=== PATIENT | male | born 1970 | race Caucasian/White ===

== ENCOUNTER 2018-04-04 17:42 | Emergency (ER) | payer BC, SELFPAY ==
[2018-04-04] MEDS ORDERED: ACETAMINOPHEN 500 MG TAB ONE (18:17)
--- NOTE | 2018-04-04 19:42 | RAD REPORT ---
EXAM DESCRIPTION: Manoj Rome (2 Views)04/04/2018 6:47 pm CLINICAL HISTORY: Cough COMPARISON: 2016 FINDINGS: The lungs appear clear of acute infiltrate. The heart is normal size A small hiatal hernia is present IMPRESSION: No acute abnormalities displayed
--- NOTE | 2018-04-04 19:42 | RAD REPORT ---
EXAM DESCRIPTION: VASExtrem Venous W Compress Bil04/04/2018 7:07 pm CLINICAL HISTORY: Bilateral leg swelling COMPARISON: 2013 FINDINGS: The common femoral, superficial femoral, popliteal and posterior tibial veins bilaterally are compressible and demonstrate augmentation. Doppler demonstrates good flow. A nonspecific 13 millimeter short axis left inguinal lymph node is present. It is without obvious jermaine nge from 2013 cat scan IMPRESSION: No evidence of deep venous thrombosis involving either lower extremity.
[2018-04-04] MEDS ORDERED: NA CHLORIDE 0.9% 1,000 ML ONE ×2 (20:02→21:48)
[2018-04-04 20:24] LABS: Absolute Lymphocytes (CBC) 1.2 K/uL (0.7-4.9); Absolute Monocytes 0.4 K/uL (0.1-1.3); Absolute Neutrophil 9.3 K/uL (1.8-8.0); Basophils % 0.5 % (0-1.3); Eosinophils % 1.8 % (0-4.4); Lymphocytes % 10.8 % (15.3-44.8); MCH 26.9 pg (27.0-35.0); MCV 80.5 fL (80-100); MPV 9.2 fL (7.6-11.3); Monocytes % 3.8 % (3.3-12.3); RBC Red Blood Cell Count 4.73 M/uL (4.33-5.43)
[2018-04-04 20:42] LABS: Bilirubin Total 0.3 mg/dL (0.2-1.0); Potassium 3.8 mmol/L (3.5-5.1); Protein, Total 6.9 g/dL (6.4-8.2)
[2018-04-04 21:35] LABS: Barbiturates NEGATIVE (NEGATIVE); Benzodiazepines NEGATIVE (NEGATIVE); Cocaine NEGATIVE (NEGATIVE); METHAMPHETAM NEGATIVE (NEGATIVE); Methadone NEGATIVE (NEGATIVE); Opiates NEGATIVE (NEGATIVE); Phencyclidine NEGATIVE (NEGATIVE); THC Cannibis NEGATIVE (NEGATIVE)
[2018-04-04 21:45] LABS: Urine Blood NEGATIVE (NEG); Urine Glucose 2+ (NEG); Urine Protein NEGATIVE (NEG)
--- NOTE | 2018-04-04 22:09 | EDPHYS ---
Physician Documentation [facility] Name: Chente Minaya Age: 47 yrs Sex: Male : 1970 Arrival Date: 04/04/2018 Time: 17:47 Bed 28 Private MD: None, None ED Physician Juan A Jarrell HPI: 04/04 19:00 This 47 yrs old Male presents to ER via Ambulatory with complaints of pm1 Congestion, Leg Swelling, Skin Sore(s). 19:00 The patient's rash thought to be caused by soap. The rash is located on the right arm, pm1 left arm, right leg and left leg. The rash can be described as papular. Onset: The symptoms/episode began/occurred 1 week(s) ago. Severity of symptoms: in the emergency department the symptoms are worse. Treatment given at home: None. The patient has not experienced similar symptoms in the past. Patient presenting with rash to his arms that started after changing his detergent. Patient also complaining of a cough for 2-3 weeks. No shortness of breath or chest pain. Complaining of swelling to bilateral lower extremities. 19:00 Patient has been trying to drink enough fluid, but it is difficult with the heat pm1 outside. Historical: - Allergies: 17:53 Bactrim; aa5 17:53 mushroom; aa5 17:53 PENICILLINS; aa5 17:53 Sulfa (Sulfonamide Antibiotics); aa5 17:53 Tylenol-Codeine #3; aa5 17:53 Tylenol-Codeine #4; aa5 - Home Meds: 18:03 Cinnamon 500 mg Oral cap [Active]; mg2 - PMHx: 17:53 Depression; Diabetes - NIDDM; food bolus; GERD; hiatal hernia; Migraines; neuropathy; aa5 - PSHx: 17:53 None; aa5 - Immunization history:: Adult Immunizations up to date. - Social history:: Smoking status: Patient/guardian denies using tobacco. - Ebola Screening: : No symptoms or risks identified at this time. ROS: 19:00 Constitutional: Negative for fever, chills, and weight loss, Eyes: Negative for injury, pm1 pain, redness, and discharge, ENT: Negative for injury, pain, and discharge, Neck: Negative for injury, pain, and swelling, Abdomen/GI: Negative for abdominal pain, nausea, vomiting, diarrhea, and constipation. 19:00 Back: Negative for injury and pain. 19:00 : Negative for injury, bleeding, discharge, and swelling, MS/Extremity: Negative for injury and deformity. 19:00 Neuro: Negative for headache, weakness, numbness, tingling, and seizure. 19:00 Cardiovascular: Positive for edema, Negative for chest pain, orthopnea, palpitations. 19:00 Respiratory: Positive for cough, Negative for shortness of breath, sputum production, wheezing. 19:00 Skin: Positive for rash, of the left leg and right leg and left arm and right arm. Exam: 19:00 Constitutional: This is a well developed, well nourished patient who is awake, alert, pm1 and in no acute distress. Head/Face: Normocephalic, atraumatic. Eyes: Pupils equal round and reactive to light, extra-ocular motions intact. Lids and lashes normal. Conjunctiva and sclera are non-icteric and not injected. Cornea within normal limits. Periorbital areas with no swelling, redness, or edema. ENT: Nares patent. No nasal discharge, no septal abnormalities noted. Tympanic membranes are normal and external auditory canals are clear. Oropharynx with no redness, swelling, or masses, exudates, or evidence of obstruction, uvula midline. Mucous membranes moist. Neck: Trachea midline, no thyromegaly or masses palpated, and no cervical lymphadenopathy. Supple, full range of motion without nuchal rigidity, or vertebral point tenderness. No Meningismus. Chest/axilla: Normal chest wall appearance and motion. Nontender with no deformity. No lesions are appreciated. Respiratory: Lungs have equal breath sounds bilaterally, clear to auscultation and percussion. No rales, rhonchi or wheezes noted. No increased work of breathing, no retractions or nasal flaring. Abdomen/GI: Soft, non-tender, with normal bowel sounds. No distension or tympany. No guarding or rebound. No evidence of tenderness throughout. Back: No spinal tenderness. No costovertebral tenderness. Full range of motion. 19:00 MS/ Extremity: Pulses equal, no cyanosis. Neurovascular intact. Full, normal range of motion. 19:00 Cardiovascular: Rate: tachycardic, Rhythm: regular, Pulses: no pulse deficits are appreciated, Heart sounds: normal, normal S1and S2, Edema: 1+ edema to level of left midcalf, left ankle, right midcalf and right ankle. 19:00 Skin: Appearance: normal except for affected area, consistent with contact dermatitis. 19:00 Neuro: Orientation: is normal, Motor: is normal, moves all fours, strength is normal, strength is 5/5 in all extremities, Gait: is steady, at a normal pace, without difficulty. Vital Signs: 17:53 BP 149 / 80; Pulse 125; Resp 20 S; Temp 100.6(O); Pulse Ox 96% on R/A; Weight 133.81 kg aa5 (R); Height 6 ft. 3 in. (190.50 cm) (R); Pain 7/10; 18:10 BP 121 / 83; Pulse 123; Resp 18; Pulse Ox 98% on R/A; Pain 5/10; mg2 19:17 BP 129 / 72; Pulse 120; Resp 18; Temp 98.1; Pulse Ox 97% on R/A; Pain 0/10; mg2 20:29 BP 104 / 50; Pulse 105; Resp 18; Temp 98.1; Pulse Ox 96% on R/A; Pain 0/10; mg2 22:27 BP 115 / 74; Pulse 92; Resp 18; Pulse Ox 97% on R/A; Pain 0/10; mg2 17:53 Body Mass Index 36.87 (133.81 kg, 190.50 cm) aa5 17:53 pt c/o mouna leg pain aa5 MDM: 18:03 Patient medically screened. pm1 19:53 Data reviewed: vital signs. Data interpreted: Pulse oximetry: on room air is 97 %. pm1 Interpretation: normal. Counseling: I had a detailed discussion with the patient and/or guardian regarding: the historical points, exam findings, and any diagnostic results supporting the discharge/admit diagnosis, radiology results, the need for outpatient follow up, to return to the emergency department if symptoms worsen or persist or if there are any questions or concerns that arise at home. 04/04 19:58 Order name: CBC with Diff; Complete Time: 21:41 pm1 04/04 19:58 Order name: CMP; Complete Time: 21:41 pm1 04/04 18:11 Order name: Extrem Venous W Compression Mouna US; Complete Time: 19:47 pm1 04/04 18:11 Order name: Chest Pa And Lat (2 Views) XRAY; Complete Time: 19:47 pm1 04/04 19:59 Order name: UDS; Complete Time: 21:41 pm1 04/04 21:19 Order name: Urine Dipstick--Ancillary (enter results); Complete Time: 21:56 rg2 04/04 19:58 Order name: IV Saline Lock; Complete Time: 20:28 pm1 04/04 19:59 Order name: Urine Dipstick-Ancillary (obtain specimen); Complete Time: 21:18 pm1 Administered Medications: 18:16 Drug: Tylenol 1000 mg Route: PO; mg2 20:05 Follow up: Response: No adverse reaction; Temperature is decreased mg2 20:16 Drug: NS 0.9% 1000 ml Route: IV; Rate: 1000 ml; Site: left antecubital; mg2 22:38 Follow up: Response: No adverse reaction; IV Status: Completed infusion mg2 21:47 Drug: NS 0.9% 1000 ml Route: IV; Rate: 1000 ml; Site: left antecubital; mg2 22:38 Follow up: Response: No adverse reaction; IV Status: Completed infusion mg2 Disposition: 04/04/18 22:07 Discharged to Home. Impression: Rash and other nonspecific skin eruption, Cough, Edema, unspecified - Dependent edema. - Condition is Stable. - Discharge Instructions: Edema, Rash, Cough, Adult. - Prescriptions for Doxycycline Hyclate 100 mg Oral Tablet - take 1 tablet by ORAL route every 12 hours; 20 tablet. - Medication Reconciliation Form, Thank You Letter, Antibiotic Education, Prescription Opioid Use form. - Follow up: Emergency Department; When: As needed; Reason: Worsening of condition. Follow up: Private Physician; When: 2 - 3 days; Reason: Recheck today's complaints, Continuance of care, Re-evaluation by your physician. - Problem is new. - Symptoms have improved. Addendum: 04/07/2018 07:36 Co-signature as Attending Physician, Juan A Jarrell MD. r n Signatures: Dispatcher [employer] EDWA Juan A Jarrell MD MD rn Calderon, Audri RN RN aa5 Dedrick Atkinson, SAMPLE CARD MAKER SAMPLE CARD MAKER pm1 Jovi Meyer RN RN mg2 Corrections: (The following items were deleted from the chart) 04/04 22:43 22:07 04/04/2018 22:07 Discharged to Home. Impression: Rash and other nonspecific skin mg2 eruption; Cough; Edema, unspecified - Dependent edema. Condition is Stable. Discharge Instructions: Edema, Rash, Cough, Adult. Prescriptions for Doxycycline Hyclate 100 mg Oral Tablet - take 1 tablet by ORAL route every 12 hours; 20 tablet. and Forms are Medication Reconciliation Form, Thank You Letter, Antibiotic Education, Prescription Opioid Use. Follow up: Emergency Department; When: As needed; Reason: Worsening of condition. Follow up: Private Physician; When: 2 - 3 days; Reason: Recheck today's complaints, Continuance of care, Re-evaluation by your physician. Problem is new. Symptoms have improved. pm1
--- NOTE | 2018-04-04 22:09 | ER ---
Nurse's Notes [facility] Name: Chente Minaya Age: 47 yrs Sex: Male : 1970 Arrival Date: 04/04/2018 Time: 17:47 Bed 28 Private MD: None, None Diagnosis: Rash and other nonspecific skin eruption;Cough;Edema, unspecified-Dependent edema Presentation: 04/04 17:49 Presenting complaint: Patient states: productive cough x 2-3 weeks ago, congestion x 1 aa5 month, mouna leg swelling x 2-3 days. Pt also states "I am allergic to laundry detergent and now I have all these sores on my right arm, they've been there for about a week". 17:49 Transition of care: patient was not received from another setting of care. Onset of aa5 symptoms was February 2018. Risk Assessment: Do you want to hurt yourself or someone else? Patient reports no desire to harm self or others. Care prior to arrival: None. 17:49 Method Of Arrival: Ambulatory aa5 17:49 Acuity: GILDARDO 3 aa5 18:02 Initial Sepsis Screen: Does the patient meet any 2 criteria? No. Patient's initial mg2 sepsis screen is negative. Does the patient have a suspected source of infection? No. Patient's initial sepsis screen is negative. Historical: - Allergies: 17:53 Bactrim; aa5 17:53 mushroom; aa5 17:53 PENICILLINS; aa5 17:53 Sulfa (Sulfonamide Antibiotics); aa5 17:53 Tylenol-Codeine #3; aa5 17:53 Tylenol-Codeine #4; aa5 - Home Meds: 18:03 Cinnamon 500 mg Oral cap [Active]; mg2 - PMHx: 17:53 Depression; Diabetes - NIDDM; food bolus; GERD; hiatal hernia; Migraines; neuropathy; aa5 - PSHx: 17:53 None; aa5 - Immunization history:: Adult Immunizations up to date. - Social history:: Smoking status: Patient/guardian denies using tobacco. - Ebola Screening: : No symptoms or risks identified at this time. Screenin:00 Abuse screen: Denies threats or abuse. Denies injuries from another. Nutritional mg2 screening: No deficits noted. Tuberculosis screening: No symptoms or risk factors identified. Fall Risk None identified. Assessment: 18:00 General: Appears in no apparent distress. comfortable, Behavior is calm, cooperative. mg2 Pain: Complains of pain in whole body Pain does not radiate. Pain Quality of pain is described as aching, sore Pain began gradually, Is intermittent. Neuro: Level of Consciousness is awake, alert, obeys commands, Oriented to person, place, time, situation. Cardiovascular: Capillary refill < 3 seconds Patient's skin is warm and dry. Respiratory: Airway is patent Respiratory effort is even, unlabored, Respiratory pattern is regular, symmetrical, Breath sounds are clear bilaterally. Respiratory: Reports cough that is productive. GI: No signs and/or symptoms were reported involving the gastrointestinal system. : No signs and/or symptoms were reported regarding the genitourinary system. EENT: No signs and/or symptoms were reported regarding the EENT system. Derm: Skin has lesions on in whole body Skin is pink, warm \\T\\ dry. normal. Musculoskeletal: No signs and/or symptoms reported regarding the musculoskeletal system. 19:18 Reassessment: Patient appears in no apparent distress at this time. Patient and/or mg2 family updated on plan of care and expected duration. Pain level reassessed. Patient is alert, oriented x 3, equal unlabored respirations, skin warm/dry/pink. Vital Signs: 17:53 BP 149 / 80; Pulse 125; Resp 20 S; Temp 100.6(O); Pulse Ox 96% on R/A; Weight 133.81 kg aa5 (R); Height 6 ft. 3 in. (190.50 cm) (R); Pain 7/10; 18:10 BP 121 / 83; Pulse 123; Resp 18; Pulse Ox 98% on R/A; Pain 5/10; mg2 19:17 BP 129 / 72; Pulse 120; Resp 18; Temp 98.1; Pulse Ox 97% on R/A; Pain 0/10; mg2 20:29 BP 104 / 50; Pulse 105; Resp 18; Temp 98.1; Pulse Ox 96% on R/A; Pain 0/10; mg2 22:27 BP 115 / 74; Pulse 92; Resp 18; Pulse Ox 97% on R/A; Pain 0/10; mg2 17:53 Body Mass Index 36.87 (133.81 kg, 190.50 cm) aa5 17:53 pt c/o mouna leg pain aa5 ED Course: 17:47 Patient arrived in ED. mr 17:47 None, None is Private Physician. mr 17:53 Triage completed. aa5 17:53 Arm band placed on. aa5 18:01 Dedrick Atkinson, ERNESTO is PHCP. pm1 18:01 Juan A Jarrell MD is Attending Physician. pm1 18:02 Patient has correct armband on for positive identification. Placed in gown. Call light mg2 in reach. Side rails up X 1. Door closed. 18:09 Jovi Meyer, RN is Primary Nurse. mg2 18:44 Chest Pa And Lat (2 Views) XRAY In Process Unspecified. EDMS 18:56 Ultrasound completed. Patient tolerated well. sg3 20:17 Inserted saline lock: 20 gauge in left antecubital area, using aseptic technique. Blood mg2 collected. 21:17 Urine collected: uds sent to lab. mg2 22:37 No provider procedures requiring assistance completed. IV discontinued, intact, mg2 bleeding controlled, No redness/swelling at site. Pressure dressing applied. Administered Medications: 18:16 Drug: Tylenol 1000 mg Route: PO; mg2 20:05 Follow up: Response: No adverse reaction; Temperature is decreased mg2 20:16 Drug: NS 0.9% 1000 ml Route: IV; Rate: 1000 ml; Site: left antecubital; mg2 22:38 Follow up: Response: No adverse reaction; IV Status: Completed infusion mg2 21:47 Drug: NS 0.9% 1000 ml Route: IV; Rate: 1000 ml; Site: left antecubital; mg2 22:38 Follow up: Response: No adverse reaction; IV Status: Completed infusion mg2 Outcome: 22:07 Discharge ordered by . pm1 22:37 Discharged to home ambulatory. mg2 22:37 Condition: stable 22:37 Discharge instructions given to patient, Instructed on discharge instructions, follow up and referral plans. medication usage, Demonstrated understanding of instructions, follow-up care, medications, Prescriptions given X 1. 22:43 Patient left the ED. mg2 Signatures: Dispatcher [employer] [facility] Ora Dc EnglandHuyen RN RN aa5 Dedrick Atkinson, ERNESTO TIME STAMP ASSEMBLER pm1 Geena Edwards sg3 Jovi Meyer, CORA RN mg2 Corrections: (The following items were deleted from the chart) 19:07 19:07 In radiology for Extrem Venous W Compression Mouna+[id number]. EDMS sg3 22:37 22:27 Pulse 92bpm; Resp 18bpm; Pulse Ox 97% RA; Pain 0/10; mg2 mg2
[2018-04-04 22:50] VITALS: TEMP 98.1
[2018-04-04 22:53] VITALS: BP 115/74; O2SAT 97
== END 2018-04-04 22:43 | disposition home or self-care (01) ==
LOC: ER 17:42
DX: R05 Cough (principal); R60.9 Edema, unspecified; Z88.0 Allergy status to penicillin; Z88.1 Allergy status to other antibiotic agents; Z88.2 Allergy status to sulfonamides; Z88.6 Allergy status to analgesic agent; Z91.018 Allergy to other foods
CPT/HCPCS: 36415; 71046; 80053; 80307; 81003; 85025; 93970; 96360; 96361; 99284; J7030

== ENCOUNTER 2018-07-03 17:50 | Emergency (ER) | payer BC, SELFPAY ==
[2018-07-03 18:22] LABS: Absolute Lymphocytes (CBC) 1.6 K/uL (0.7-4.9); Absolute Monocytes 0.3 K/uL (0.1-1.3); Absolute Neutrophil 3.8 K/uL (1.8-8.0); Basophils % 0.7 % (0-1.3); Eosinophils % 4.6 % (0-4.4); Hematocrit 42.3 % (39.6-49.0); Lymphocytes % 26.5 % (15.3-44.8); MCH 26.9 pg (27.0-35.0); MCV 80.7 fL (80-100); Monocytes % 5.2 % (3.3-12.3); RBC Red Blood Cell Count 5.24 M/uL (4.33-5.43)
[2018-07-03 18:27] LABS: Protime INR 0.97
[2018-07-03 18:52] LABS: ALT/SGPT 51 U/L (12-78); AST/SGOT 24 U/L (15-37); Albumin 3.4 g/dL (3.4-5.0); Alkaline Phosphatase 76 U/L (45-117); BUN Blood Urea Nitrogen 12 mg/dL (7-18); Bicarbonate 29 mmol/L (21-32); Bilirubin Direct < 0.1 mg/dL (0-0.2); Bilirubin Total 0.2 mg/dL (0.2-1.0); Glucose Level 379 mg/dL (74-106); Magnesium 1.9 mg/dL (1.8-2.4); NT PRO-BNP 29 pg/mL (<125); Potassium 4.1 mmol/L (3.5-5.1); Protein, Total 7.3 g/dL (6.4-8.2); Sodium Level 137 mmol/L (136-145); Troponin (Emerg Dept Use Only) < 0.02 ng/mL (0.0-0.045)
--- NOTE | 2018-07-03 19:35 | RAD REPORT ---
EXAM DESCRIPTION: RAD - Chest Single View - 07/03/2018 6:25 pm CLINICAL HISTORY: Chest pain and pressure COMPARISON: April 04 TECHNIQUE: AP portable chest image was obtained 1816 hours . FINDINGS: No focal lung parenchymal process. No failure or volume overload. Right hemidiaphragm is e levated. Heart and vasculature are normal. No measurable pleural effusion and no pneumothorax. No acu te bony abnormality seen. No acute aortic findings suspected. IMPRESSION: No acute cardiopulmonary process. No significant change from comparison.
--- NOTE | 2018-07-03 22:04 | EDPHYS ---
Physician Documentation [facility] Name: Chente Minaya Age: 47 yrs Sex: Male : 1970 Arrival Date: 07/03/2018 Time: 17:52 Bed 14 Private MD: ED Physician Daren Cuenca HPI: 07/03 21:00 This 47 yrs old Male presents to ER via Ambulatory with complaints of Chest pm1 Pain, Numbness Of Arm. 21:00 The patient or guardian reports chest pain that is located primarily in the anterior pm1 chest wall, left. Onset: 1 hour prior to arrival. The pain does not radiate. Associated signs and symptoms: Pertinent positives: left arm numbness. The chest pain is described as sharp. Duration: The patient or guardian reports a single episode, that is still ongoing. Modifying factors: The symptoms are alleviated by nothing. the symptoms are aggravated by deep breath, Moving left arm . The patient has experienced similar episodes in the past, multiple times. The patient has not recently seen a physician. Historical: - Allergies: 17:55 Bactrim; aa5 17:55 mushroom; aa5 17:55 PENICILLINS; aa5 17:55 Sulfa (Sulfonamide Antibiotics); aa5 17:55 Tylenol-Codeine #3; aa5 17:55 Tylenol-Codeine #4; aa5 - PMHx: 17:55 Depression; Diabetes - NIDDM; food bolus; GERD; hiatal hernia; Migraines; neuropathy; aa5 - PSHx: 17:55 None; aa5 - Immunization history:: Adult Immunizations unknown. - Ebola Screening: : No symptoms or risks identified at this time. - Social history:: Smoking status: Patient/guardian denies using tobacco. ROS: 21:00 Constitutional: Negative for fever, chills, and weight loss, Eyes: Negative for injury, pm1 pain, redness, and discharge, ENT: Negative for injury, pain, and discharge, Neck: Negative for injury, pain, and swelling. 21:00 Respiratory: Negative for shortness of breath, cough, wheezing, and pleuritic chest pain, Abdomen/GI: Negative for abdominal pain, nausea, vomiting, diarrhea, and constipation, Back: Negative for injury and pain, : Negative for injury, bleeding, discharge, and swelling. 21:00 MS/Extremity: Negative for injury and deformity, Skin: Negative for injury, rash, and discoloration. 21:00 Cardiovascular: Positive for chest pain, Negative for edema, orthopnea, palpitations. 21:00 Neuro: Positive for numbness, of the left arm, Negative for dizziness, tingling, weakness. Exam: 21:00 Constitutional: This is a well developed, well nourished patient who is awake, alert, pm1 and in no acute distress. Head/Face: Normocephalic, atraumatic. Eyes: Pupils equal round and reactive to light, extra-ocular motions intact. Lids and lashes normal. Conjunctiva and sclera are non-icteric and not injected. Cornea within normal limits. Periorbital areas with no swelling, redness, or edema. ENT: Nares patent. No nasal discharge, no septal abnormalities noted. Tympanic membranes are normal and external auditory canals are clear. Oropharynx with no redness, swelling, or masses, exudates, or evidence of obstruction, uvula midline. Mucous membranes moist. Neck: Trachea midline, no thyromegaly or masses palpated, and no cervical lymphadenopathy. Supple, full range of motion without nuchal rigidity, or vertebral point tenderness. No Meningismus. 21:00 Cardiovascular: Regular rate and rhythm with a normal S1 and S2. No gallops, murmurs, or rubs. Normal PMI, no JVD. No pulse deficits. Respiratory: Lungs have equal breath sounds bilaterally, clear to auscultation and percussion. No rales, rhonchi or wheezes noted. No increased work of breathing, no retractions or nasal flaring. Abdomen/GI: Soft, non-tender, with normal bowel sounds. No distension or tympany. No guarding or rebound. No evidence of tenderness throughout. Back: No spinal tenderness. No costovertebral tenderness. Full range of motion. Skin: Warm, dry with normal turgor. Normal color with no rashes, no lesions, and no evidence of cellulitis. 21:00 Chest/axilla: Inspection: normal, Palpation: crepitus, is not appreciated, tenderness, of the anterior aspect of left upper chest, that totally reproduces the patient's complaints. 21:00 Musculoskeletal/extremity: Extremities: grossly normal except: noted in the anterior aspect of left shoulder: tenderness, Rotating and raising left arm above the patient's head reproduces his chest pain and numbness of left arm, Circulation is intact in all extremities. Pulses: 21:00 Neuro: Orientation: is normal, Motor: is normal. 21:00 NSR, normal ECG pm1 Vital Signs: 17:56 BP 142 / 90; Pulse 80; Resp 18 S; Pulse Ox 97% on R/A; aa5 18:43 BP 127 / 80; Pulse 84; Resp 18; Temp 98.9; Pulse Ox 97% ; kr2 20:45 BP 106 / 59; Pulse 74; Resp 12; Pulse Ox 98% on R/A; kr2 21:35 BP 102 / 62; Pulse 71; Resp 17; Pulse Ox 100% ; kr2 22:00 BP 110 / 65; Pulse 72; Resp 16; Pulse Ox 99% on R/A; kr2 MDM: 17:57 Patient medically screened. pm1 19:21 ED course: No CT head performed or TPA given since this is not a CVA. pm1 21:55 Data reviewed: vital signs. Data interpreted: Pulse oximetry: on room air is 100 %. pm1 Interpretation: normal. 22:03 Counseling: I had a detailed discussion with the patient and/or guardian regarding: the pm1 historical points, exam findings, and any diagnostic results supporting the discharge/admit diagnosis, lab results, radiology results, the need for outpatient follow up, to return to the emergency department if symptoms worsen or persist or if there are any questions or concerns that arise at home. 07/03 18: Order name: Basic Metabolic Panel; Complete Time: 19:02 pm1 07/03 18: Order name: CBC with Diff; Complete Time: 18:30 pm1 07/03 18: Order name: LFT's; Complete Time: 19:02 pm1 07/03 18: Order name: Magnesium; Complete Time: 19:02 pm1 07/03 18: Order name: NT PRO-BNP; Complete Time: 19:02 pm1 07/03 18: Order name: PT-INR; Complete Time: 18:30 pm1 07/03 18: Order name: Troponin (emerg Dept Use Only); Complete Time: 19:02 pm1 07/03 18: Order name: XRAY Chest (1 view); Complete Time: 19:36 pm1 07/03 18: Order name: EKG; Complete Time: 18:01 pm1 07/03 18: Order name: Cardiac monitoring; Complete Time: 18:42 pm1 07/03 18: Order name: EKG - Nurse/Tech; Complete Time: 18:42 pm1 07/03 18: Order name: IV Saline Lock; Complete Time: 18:42 pm1 07/03 21:03 Order name: Troponin (emerg Dept Use Only); Complete Time: 22:02 pm1 07/03 18: Order name: Labs collected and sent; Complete Time: 18:42 pm1 07/03 18: Order name: O2 Per Protocol; Complete Time: 18:42 pm1 07/03 18: Order name: O2 Sat Monitoring; Complete Time: 18:42 pm1 Administered Medications: 22:05 Drug: TORadol 30 mg Route: IVP; Site: right antecubital; kr2 22:12 Follow up: Response: No adverse reaction; Pain is decreased kr2 Disposition: 07/04 06:05 Co-signature as Attending Physician, Daren Cuenca MD I agree with the assessment and kdr plan of care. Disposition: 07/03/18 22:03 Discharged to Home. Impression: Chest pain, unspecified. - Condition is Stable. - Discharge Instructions: Nonspecific Chest Pain, Chest Wall Pain. - Prescriptions for Naprosyn 500 mg Oral Tablet - take 1 tablet by ORAL route 2 times per day take with food; 30 tablet. Cyclobenzaprine 10 mg Oral Tablet - take 1 tablet by ORAL route every 8 hours As needed; 30 tablet. - Medication Reconciliation Form, Thank You Letter form. - Follow up: Emergency Department; When: As needed; Reason: Worsening of condition. Follow up: Private Physician; When: 2 - 3 days; Reason: Recheck today's complaints, Continuance of care, Re-evaluation by your physician. - Problem is new. - Symptoms have improved. Signatures: Dispatcher [employer] EDIA Daren Cuenca MD MD kdr Calderon, Audri RN RN aa5 Dedrick Atkinson NP C PYTHON DEVELOPER pm1 Shayna Wynne RN RN kr2 Corrections: (The following items were deleted from the chart) 07/03 22:13 22:03 07/03/2018 22:03 Discharged to Home. Impression: Chest pain, unspecified. kr2 Condition is Stable. Forms are Medication Reconciliation Form, Thank You Letter, Antibiotic Education, Prescription Opioid Use. Follow up: Emergency Department; When: As needed; Reason: Worsening of condition. Follow up: Private Physician; When: 2 - 3 days; Reason: Recheck today's complaints, Continuance of care, Re-evaluation by your physician. Problem is new. Symptoms have improved. pm1
--- NOTE | 2018-07-03 22:04 | ER ---
Nurse's Notes [facility] Name: Chente Minaya Age: 47 yrs Sex: Male : 1970 Arrival Date: 07/03/2018 Time: 17:52 Bed 14 Private MD: Diagnosis: Chest pain, unspecified Presentation: 07/03 17:55 Presenting complaint: Patient states: chest pressure and left arm numbness that began 1 aa5 hour EVENT STAFF. 17:55 Transition of care: patient was not received from another setting of care. Onset of aa5 symptoms was July 03, 2018. Risk Assessment: Do you want to hurt yourself or someone else? Patient reports no desire to harm self or others. Initial Sepsis Screen: Does the patient meet any 2 criteria? No. Patient's initial sepsis screen is negative. Does the patient have a suspected source of infection? No. Patient's initial sepsis screen is negative. Care prior to arrival: None. 17:55 Method Of Arrival: Ambulatory aa5 17:55 Acuity: GILDARDO 2 aa5 Historical: - Allergies: 17:55 Bactrim; aa5 17:55 mushroom; aa5 17:55 PENICILLINS; aa5 17:55 Sulfa (Sulfonamide Antibiotics); aa5 17:55 Tylenol-Codeine #3; aa5 17:55 Tylenol-Codeine #4; aa5 - PMHx: 17:55 Depression; Diabetes - NIDDM; food bolus; GERD; hiatal hernia; Migraines; neuropathy; aa5 - PSHx: 17:55 None; aa5 - Immunization history:: Adult Immunizations unknown. - Ebola Screening: : No symptoms or risks identified at this time. - Social history:: Smoking status: Patient/guardian denies using tobacco. Screenin:30 Abuse screen: Denies threats or abuse. Denies injuries from another. Nutritional kr2 screening: No deficits noted. Tuberculosis screening: No symptoms or risk factors identified. Fall Risk None identified. Assessment: 18:30 General: Appears in no apparent distress. uncomfortable, Behavior is calm, cooperative, kr2 appropriate for age. Pain: Complains of pain in chest Pain radiates to left arm Pain currently is 8 out of 10 on a pain scale. Quality of pain is described as pressure, shooting, Pain began 1 hour ago. Is continuous, Alleviated by nothing. Aggravated by increased activity. Neuro: Level of Consciousness is awake, alert, obeys commands, Oriented to person, place, time, situation, Appropriate for age Header Boss are equal bilaterally Moves all extremities. Gait is steady, Speech is normal, Facial symmetry appears normal, Pupils are PERRLA, Numbness in left arm Reports numbness in left arm since 1 hour ago. Cardiovascular: Capillary refill < 3 seconds in bilateral fingers Patient's skin is warm and dry. Rhythm is sinus rhythm. Respiratory: Airway is patent Respiratory effort is even, unlabored, Respiratory pattern is regular, symmetrical. GI: Abdomen is flat, non-distended, Patient currently denies nausea, vomiting. EENT: Oral mucosa is moist. Derm: Skin is intact, is healthy with good turgor, Rash noted that is red, on abdomen. Musculoskeletal: Circulation, motion, and sensation intact. 19:30 Reassessment: Patient appears in no apparent distress at this time. Patient and/or kr2 family updated on plan of care and expected duration. Pain level reassessed. Patient is alert, oriented x 3, equal unlabored respirations, skin warm/dry/pink. Patient states feeling better. 20:42 Reassessment: Patient appears in no apparent distress at this time. Patient and/or kr2 family updated on plan of care and expected duration. Pain level reassessed. Patient is alert, oriented x 3, equal unlabored respirations, skin warm/dry/pink. Patient states feeling better. 21:35 Reassessment: Patient appears in no apparent distress at this time. Patient and/or kr2 family updated on plan of care and expected duration. Pain level reassessed. Patient is alert, oriented x 3, equal unlabored respirations, skin warm/dry/pink. Vital Signs: 17:56 BP 142 / 90; Pulse 80; Resp 18 S; Pulse Ox 97% on R/A; aa5 18:43 BP 127 / 80; Pulse 84; Resp 18; Temp 98.9; Pulse Ox 97% ; kr2 20:45 BP 106 / 59; Pulse 74; Resp 12; Pulse Ox 98% on R/A; kr2 21:35 BP 102 / 62; Pulse 71; Resp 17; Pulse Ox 100% ; kr2 22:00 BP 110 / 65; Pulse 72; Resp 16; Pulse Ox 99% on R/A; kr2 ED Course: 17:52 Patient arrived in ED. tw3 17:55 Arm band placed on Patient placed in an exam room, on a stretcher. aa5 17:56 Shayna Wynne, RN is Primary Nurse. kr2 17:56 Dedrick Atkinson [facility]. pm1 17:56 Daren Cuenca MD is Attending Physician. pm1 18:00 cardiac monitor technician on. Pulse ox on. NIBP on. Door closed. Warm blanket given. Head of bed kr2 elevated. 18:00 Patient has correct armband on for positive identification. Placed in gown. Bed in low kr2 position. Call light in reach. Side rails up X 1. 18:00 Inserted saline lock: 20 gauge in right antecubital area, using aseptic technique. kr2 ,using aseptic technique. Performed by EDUARD Barry Blood collected. 18:02 Triage completed. aa5 18:05 EKG done, by distribution engineering technologist. reviewed by Dedrick Atkinson NP. sm3 18:19 X-ray completed. Portable x-ray completed in exam room. Patient tolerated procedure ml well. 18:21 XRAY Chest (1 view) In Process Unspecified. EDMS 18:30 Patient maintains SpO2 saturation greater than 95% on room air. kr2 21:25 Repeat lab(s) drawn. by me, sent to lab. kr2 22:12 No provider procedures requiring assistance completed. IV discontinued, intact, kr2 bleeding controlled, No redness/swelling at site. Pressure dressing applied. Administered Medications: 22:05 Drug: TORadol 30 mg Route: IVP; Site: right antecubital; kr2 22:12 Follow up: Response: No adverse reaction; Pain is decreased kr2 Outcome: 22:03 Discharge ordered by MD. pm1 22:13 Discharged to home ambulatory, with family. kr2 22:13 Condition: good 22:13 Discharge instructions given to patient, Instructed on discharge instructions, follow up and referral plans. medication usage, Demonstrated understanding of instructions, follow-up care, medications, Prescriptions given X 2. 22:13 Patient left the ED. kr2 Signatures: Dispatcher [employer] EDMS Oliva Nieto Audri, RN RN aa5 Dedrick Atkinson NP X RAY EQUIPMENT MECHANIC pm1 Rosalie Diaz tw3 Shayna Wynne, CORA RN kr2 Kezia Noble 3
[2018-07-03] MEDS ORDERED: KETOROLAC 30 MG/ML INJ ONE (22:10)
[2018-07-03 22:24] VITALS: BP 102/62; TEMP 98.9; O2SAT 100
--- NOTE | 2018-07-04 04:17 | EKG ---
Test Date: 2018-07-03 Test Time: 18:01:53 Interior Assemblies Developer Prover: LIDA MEASUREMENT RESULTS: Intervals: Rate: 77 HI: 156 QRSD: 88 QT: 388 QTc: 439 [place]: P: 62 HI: 156 QRS: -12 T: 46 INTERPRETIVE STATEMENTS: Normal sinus rhythm Normal ECG Compared to ECG 07/10/2016 15:05:29 No significant changes Electronically Signed On 07-04-18 04:17:04 CDT by Myles Hemphill
== END 2018-07-03 22:13 | disposition home or self-care (01) ==
LOC: ER 17:50
DX: R07.9 Chest pain, unspecified (principal); Z88.1 Allergy status to other antibiotic agents; Z88.0 Allergy status to penicillin
CPT/HCPCS: 36415; 71045; 80048; 80076; 83735; 83880; 84484; 85025; 85610; 93005; 96374; 99285

== ENCOUNTER 2018-08-05 15:58 | Emergency (ER) | payer BC ==
--- NOTE | 2018-08-05 17:50 | RAD REPORT ---
EXAM DESCRIPTION: RAD - Chest Pa And Lat (2 Views) - 08/05/2018 5:36 pm CLINICAL HISTORY: Cough;Congestion Chest pain. COMPARISON: Chest Single View dated 07/03/2018; Chest Pa And Lat (2 Views) dated 04/04/2018; Chest Si ngle View dated 07/10/2016; Chest Single View dated 06/29/2016 FINDINGS: The lungs are clear. The heart is normal in size. No displaced fractures. IMPRESSION: No acute or concerning finding suspected.
--- NOTE | 2018-08-05 17:58 | ER ---
Nurse's Notes [facility] Name: Chente Minaya Age: 48 yrs Sex: Male : 1970 Arrival Date: 08/05/2018 Time: 16:01 Bed 14 Private MD: None, None Diagnosis: Acute upper respiratory infection, unspecified Presentation: 08/05 16:07 Presenting complaint: Patient states: "I've had some congestion and sinus problems aj1 starting on Friday. I was taking some medicine, but its gotten worse and worse. I have chills, my whole body aches" Denies SOB. Reports chest pain when he coughs. Transition of care: patient was not received from another setting of care. Onset of symptoms was August 01, 2018. Risk Assessment: Do you want to hurt yourself or someone else? Patient reports no desire to harm self or others. Initial Sepsis Screen: Does the patient meet any 2 criteria? No. Patient's initial sepsis screen is negative. Does the patient have a suspected source of infection? Yes: Productive cough/pneumonia. Care prior to arrival: None. 16:07 Method Of Arrival: Ambulatory aj1 16:07 Acuity: GILDARDO 4 aj1 Triage Assessment: 16:09 General: Appears in no apparent distress. comfortable, Behavior is calm, cooperative, aj1 appropriate for age. Pain: Complains of pain in chest Pain currently is 6 out of 10 on a pain scale. Neuro: Level of Consciousness is awake, alert, obeys commands. Cardiovascular: Patient's skin is warm and dry. Respiratory: Reports cough that is Airway is patent Respiratory effort is even, unlabored, Respiratory pattern is regular, symmetrical. Historical: - Allergies: 16:09 Bactrim; aj1 16:09 mushroom; aj1 16:09 PENICILLINS; aj1 16:09 Sulfa (Sulfonamide Antibiotics); aj1 16:09 Tylenol-Codeine #3; aj1 16:09 Tylenol-Codeine #4; aj1 16:09 surgical steel; aj1 - Home Meds: 16:09 None [Active]; aj1 - PMHx: 16:09 Depression; Diabetes - NIDDM; food bolus; GERD; hiatal hernia; Migraines; neuropathy; aj1 - Immunization history:: Flu vaccine is not up to date. - Social history:: Smoking status: Patient/guardian denies using tobacco. - Ebola Screening: : Patient denies travel to an Ebola-affected area in the 21 days before illness onset. Screenin:12 Abuse screen: Denies threats or abuse. Nutritional screening: No deficits noted. la1 Tuberculosis screening: No symptoms or risk factors identified. Fall Risk None identified. Assessment: 18:12 General: Appears in no apparent distress. Behavior is calm, cooperative. Pain: Denies la1 pain. Neuro: Level of Consciousness is awake, alert, obeys commands, Oriented to person, place, time, situation. Cardiovascular: Capillary refill < 3 seconds Patient's skin is warm and dry. Respiratory: Airway is patent Respiratory effort is even, unlabored, Respiratory pattern is regular, symmetrical, Breath sounds are clear bilaterally. GI: No signs and/or symptoms were reported involving the gastrointestinal system. : No signs and/or symptoms were reported regarding the genitourinary system. Vital Signs: 16:09 BP 140 / 94; Pulse 81; Resp 20; Temp 97.6; Pulse Ox 99% on R/A; Weight 131.54 kg (R); aj1 Height 6 ft. 2 in. (187.96 cm) (R); Pain 6/10; 16:09 Body Mass Index 37.23 (131.54 kg, 187.96 cm) aj1 ED Course: 16:01 Patient arrived in ED. mr 16:02 None, None is Private Physician. mr 16:09 Triage completed. aj1 16:10 Arm band placed on Patient placed in waiting room, Patient notified of wait time. aj1 17:01 Shelly Blackburn FNP-C [facility]. kb 17:01 Saurav Blount MD is Attending Physician. kb 17:07 Dre Addison, CORA is Primary Nurse. la1 17:31 Patient moved to radiology via wheelchair. kw 17:32 X-ray completed. Portable x-ray completed in exam room. Patient tolerated procedure kw well. 17:32 Patient moved back from radiology. kw 17:33 Chest Pa And Lat (2 Views) XRAY In Process Unspecified. EDMS 18:12 Call light in reach. Side rails up X 1. la1 18:12 No provider procedures requiring assistance completed. Patient did not have IV access la1 during this emergency room visit. Administered Medications: No medications were administered Outcome: 17:58 Discharge ordered by . charles 18:12 Discharged to home ambulatory. la1 18:12 Condition: stable 18:12 Discharge instructions given to patient, Instructed on discharge instructions, follow up and referral plans. Demonstrated understanding of instructions, follow-up care, medications, Prescriptions given X 1. 18:13 Patient left the ED. la1 Signatures: Dispatcher [employer] EDMS Shelly Blackburn, CHILDREN'S SERVICE SUPERVISOR-C CHILDREN'S SERVICE SUPERVISOR-Jazmin Cortez, RN RN Yoselin Grullon Kimberlee kw Attema, Lee, RN RN la1 Corrections: (The following items were deleted from the chart) 16:11 16:09 Arm band placed on Patient placed in an exam room, yady conteh
--- NOTE | 2018-08-05 17:58 | EDPHYS ---
Physician Documentation [facility] Name: Chente Minaya Age: 48 yrs Sex: Male : 1970 Arrival Date: 08/05/2018 Time: 16:01 Bed 14 Private MD: None, None ED Physician Saurav Blount HPI: 08/05 17:53 This 48 yrs old Male presents to ER via Ambulatory with complaints of Sinus kb Congestion. 17:53 The patient or guardian reports cough, that is intermittent, described as moderate, kb with no sputum, flu symptoms, myalgias. Onset: The symptoms/episode began/occurred 5 day(s) ago. Severity of symptoms: At their worst the symptoms were moderate, in the emergency department the symptoms are unchanged. Modifying factors: The symptoms are alleviated by nothing, the symptoms are aggravated by nothing. Associated signs and symptoms: Pertinent positives: rhinorrhea, Pertinent negatives: chest pain, diarrhea, ear ache, fever, nausea, sore throat, vomiting. The patient has experienced similar episodes in the past, several times. The patient has not recently seen a physician. 17:54 Pt reports sinus congestion, cough, body aches, chills since Friday. . kb Historical: - Allergies: 16:09 Bactrim; aj1 16:09 mushroom; aj1 16:09 PENICILLINS; aj1 16:09 Sulfa (Sulfonamide Antibiotics); aj1 16:09 Tylenol-Codeine #3; aj1 16:09 Tylenol-Codeine #4; aj1 16:09 surgical steel; aj1 - Home Meds: 16:09 None [Active]; aj1 - PMHx: 16:09 Depression; Diabetes - NIDDM; food bolus; GERD; hiatal hernia; Migraines; neuropathy; aj1 - Immunization history:: Flu vaccine is not up to date. - Social history:: Smoking status: Patient/guardian denies using tobacco. - Ebola Screening: : Patient denies travel to an Ebola-affected area in the 21 days before illness onset. ROS: 17:54 Cardiovascular: Negative for chest pain, palpitations, and edema, Abdomen/GI: Negative kb for abdominal pain, nausea, vomiting, diarrhea, and constipation, Back: Negative for injury and pain, : Negative for injury, bleeding, discharge, and swelling, MS/Extremity: Negative for injury and deformity, Skin: Negative for injury, rash, and discoloration, Neuro: Negative for headache, weakness, numbness, tingling, and seizure. 17:54 Constitutional: Positive for body aches, chills, Negative for fatigue, fever, malaise, poor PO intake, weight loss. 17:54 ENT: Positive for rhinorrhea, sinus congestion. 17:54 Respiratory: Positive for cough, with no reported sputum, Negative for dyspnea on exertion, hemoptysis, orthopnea, pleurisy, shortness of breath, sputum production, wheezing. Exam: 17:54 Constitutional: This is a well developed, well nourished patient who is awake, alert, kb and in no acute distress. Head/Face: Normocephalic, atraumatic. ENT: Nares patent. No nasal discharge, no septal abnormalities noted. Tympanic membranes are normal and external auditory canals are clear. Oropharynx with no redness, swelling, or masses, exudates, or evidence of obstruction, uvula midline. Mucous membranes moist. Neck: Trachea midline, no thyromegaly or masses palpated, and no cervical lymphadenopathy. Supple, full range of motion without nuchal rigidity, or vertebral point tenderness. No Meningismus. Chest/axilla: Normal chest wall appearance and motion. Nontender with no deformity. No lesions are appreciated. Cardiovascular: Regular rate and rhythm with a normal S1 and S2. No gallops, murmurs, or rubs. Normal PMI, no JVD. No pulse deficits. Respiratory: Lungs have equal breath sounds bilaterally, clear to auscultation and percussion. No rales, rhonchi or wheezes noted. No increased work of breathing, no retractions or nasal flaring. Abdomen/GI: Soft, non-tender, with normal bowel sounds. No distension or tympany. No guarding or rebound. No evidence of tenderness throughout. Skin: Warm, dry with normal turgor. Normal color with no rashes, no lesions, and no evidence of cellulitis. MS/ Extremity: Pulses equal, no cyanosis. Neurovascular intact. Full, normal range of motion. Neuro: Awake and alert, GCS 15, oriented to person, place, time, and situation. Cranial nerves II-XII grossly intact. Motor strength 5/5 in all extremities. Sensory grossly intact. Cerebellar exam normal. Normal gait. Vital Signs: 16:09 BP 140 / 94; Pulse 81; Resp 20; Temp 97.6; Pulse Ox 99% on R/A; Weight 131.54 kg (R); aj1 Height 6 ft. 2 in. (187.96 cm) (R); Pain 6/10; 16:09 Body Mass Index 37.23 (131.54 kg, 187.96 cm) aj1 MDM: 17:03 Patient medically screened. kb 17:57 Data reviewed: vital signs, nurses notes. Data interpreted: Pulse oximetry: on room air kb is 99 %. Interpretation: normal. Counseling: I had a detailed discussion with the patient and/or guardian regarding: the historical points, exam findings, and any diagnostic results supporting the discharge/admit diagnosis, lab results, radiology results, the need for outpatient follow up, a family practitioner, to return to the emergency department if symptoms worsen or persist or if there are any questions or concerns that arise at home. 08/05 17:03 Order name: Flu; Complete Time: 17:41 kb 08/05 17:03 Order name: Strep; Complete Time: 17:41 kb 08/05 17:08 Order name: Chest Pa And Lat (2 Views) XRAY; Complete Time: 17:52 kb 08/05 17:39 Order name: Throat Culture EDMS Administered Medications: No medications were administered Disposition: 08/05/18 17:58 Discharged to Home. Impression: Acute upper respiratory infection, unspecified. - Condition is Stable. - Discharge Instructions: Upper Respiratory Infection, Adult, Rhop-ox-Mihd. - Prescriptions for Prednisone 20 mg Oral Tablet - take 1 tablet by ORAL route once daily for 5 days; 5 tablet. - Medication Reconciliation Form, Thank You Letter, Antibiotic Education, Prescription Opioid Use form. - Follow up: Emergency Department; When: As needed; Reason: Worsening of condition. Follow up: Private Physician; When: 2 - 3 days; Reason: Recheck today's complaints, Continuance of care, Re-evaluation by your physician. Addendum: 08/10/2018 08:05 Co-signature as Attending Physician, Saurav Blount MD I agree with the assessment and c ritchie plan of care. Signatures: Dispatcher [employer] EDMS Shelly Blackburn, MAGUI-C MAGUI-Jazmin Cortez RN RN aj1 Saurav Blount MD MD cha Attema, Lee RN RN la1 Corrections: (The following items were deleted from the chart) 08/05 18:13 17:58 08/05/2018 17:58 Discharged to Home. Impression: Acute upper respiratory la1 infection, unspecified. Condition is Stable. Forms are Medication Reconciliation Form, Thank You Letter, Antibiotic Education, Prescription Opioid Use. Follow up: Emergency Department; When: As needed; Reason: Worsening of condition. Follow up: Private Physician; When: 2 - 3 days; Reason: Recheck today's complaints, Continuance of care, Re-evaluation by your physician. kb
[2018-08-05 19:19] VITALS: BP 140/94; TEMP 97.6; O2SAT 99
== END 2018-08-05 18:13 | disposition home or self-care (01) ==
LOC: ER 15:58
DX: J06.9 Acute upper respiratory infection, unspecified (principal); Z88.0 Allergy status to penicillin; Z88.1 Allergy status to other antibiotic agents; Z88.2 Allergy status to sulfonamides; Z88.6 Allergy status to analgesic agent; Z91.018 Allergy to other foods; Z91.048 Other nonmedicinal substance allergy status
CPT/HCPCS: 71046; 87070; 87081; 87804; 99283

== ENCOUNTER 2018-08-30 14:38 | Emergency (ER) | payer BC ==
[2018-08-30] MEDS ORDERED: NA CHLORIDE 0.9% 1,000 ML ONE (15:26)
[2018-08-30] MEDS ORDERED: INSULIN -REGULAR HUMAN 50 UNIT/0.5 ML ML ONE (15:26)
[2018-08-30 15:38] LABS: Urine Blood NEGATIVE (NEG); Urine Glucose 2+ (NEG); Urine Protein NEGATIVE (NEG); Urine Specific Gravity 1.015 (1.005-1.030)
--- NOTE | 2018-08-30 15:42 | RAD REPORT ---
EXAM DESCRIPTION: CT - Head Brain Wo Cont - 08/30/2018 3:26 pm CLINICAL HISTORY: Dizziness, weakness, blurred vision, syncope, history of headaches COMPARISON: CT head June 2015 TECHNIQUE: Axial 5 mm thick images of the head were obtained without IV contrast. All CT scans are performed using dose optimization technique as appropriate and may include automated exposure control or mA/KV adjustment according to patient size. FINDINGS: No intracranial hemorrhage, mass, edema or shift of mid-line structures. No acute infarcti on changes seen. No abnormal extra-axial fluid collections. Ventricles are normal. Mastoid air cells and visualized portions of the paranasal sinuses are clear. No acute bony findings. IMPRESSION: Negative non-contrast CT head examination. No significant change from the comparison st udy.
[2018-08-30 15:55] LABS: Absolute Lymphocytes (CBC) 1.6 K/uL (0.7-4.9); Absolute Monocytes 0.3 K/uL (0.1-1.3); Absolute Neutrophil 4.9 K/uL (1.8-8.0); Basophils % 0.6 % (0-1.3); Eosinophils % 2.6 % (0-4.4); Hematocrit 45.6 % (39.6-49.0); Lymphocytes % 22.9 % (15.3-44.8); MCH 26.8 pg (27.0-35.0); MPV 9.8 fL (7.6-11.3)
[2018-08-30 15:57] LABS: Protime INR 0.94
[2018-08-30 16:08] LABS: ALT/SGPT 65 U/L (12-78); AST/SGOT 32 U/L (15-37); Albumin 3.7 g/dL (3.4-5.0); Alkaline Phosphatase 97 U/L (45-117); BUN Blood Urea Nitrogen 8 mg/dL (7-18); Bicarbonate 29 mmol/L (21-32); Bilirubin Direct 0.1 mg/dL (0-0.2); Bilirubin Total 0.3 mg/dL (0.2-1.0); Glucose Level 321 mg/dL (74-106); Magnesium 2.2 mg/dL (1.8-2.4); NT PRO-BNP 19 pg/mL (<125); Potassium 4.1 mmol/L (3.5-5.1); Protein, Total 7.5 g/dL (6.4-8.2); Sodium Level 136 mmol/L (136-145); Troponin (Emerg Dept Use Only) < 0.02 ng/mL (0.0-0.045)
[2018-08-30 16:15] LABS: Urine Bacteria <20 /HPF (NONE SEEN); Urine Culture Reflex Order NOT NEEDED; Urine RBC <5 /HPF (NONE SEEN)
--- NOTE | 2018-08-30 16:40 | RAD REPORT ---
EXAM DESCRIPTION: RAD - Chest Single View - 08/30/2018 4:01 pm CLINICAL HISTORY: Weakness, dizziness, shortness of breath COMPARISON: July 2018 TECHNIQUE: AP portable chest image was obtained 1548 hours . FINDINGS: No focal lung parenchymal process. Right hemidiaphragm elevation again noted. No failure o r volume overload. Heart and vasculature are normal. No measurable pleural effusion and no pneumothor ax. No acute bony abnormality seen. No acute aortic findings suspected. IMPRESSION: No acute cardiopulmonary process. No significant change from comparison.
--- NOTE | 2018-08-30 17:49 | ER ---
Nurse's Notes [facility] Name: Chente Minaya Age: 48 yrs Sex: Male : 1970 Arrival Date: 08/30/2018 Time: 14:41 Bed 30 Private MD: Diagnosis: Diabetes mellitus due to underlying condition with hyperglycemia Presentation: 08/30 14:43 Presenting complaint: Patient states: went shopping a while ago, i started having dizzy hj spells and blurred vision, hx of diabetes; denies N/V; denies F/C;. Transition of care: patient was not received from another setting of care. Onset of symptoms was August 30, 2018. Risk Assessment: Do you want to hurt yourself or someone else? Patient reports no desire to harm self or others. Initial Sepsis Screen: Does the patient meet any 2 criteria? No. Patient's initial sepsis screen is negative. Does the patient have a suspected source of infection? No. Patient's initial sepsis screen is negative. Care prior to arrival: None. 14:43 Method Of Arrival: Ambulatory 14:43 Acuity: GILDARDO 3 hj Triage Assessment: 14:45 General: Appears in no apparent distress. uncomfortable, Behavior is calm, cooperative, hj appropriate for age. Pain: Complains of pain in head. Historical: - Allergies: 14:45 Bactrim; hj 14:45 mushroom; hj 14:45 PENICILLINS; hj 14:45 Sulfa (Sulfonamide Antibiotics); hj 14:45 surgical steel; hj 14:45 Tylenol-Codeine #3; hj 14:45 Tylenol-Codeine #4; hj - Home Meds: 14:45 None [Active]; hj - PMHx: 14:45 Depression; Diabetes - NIDDM; food bolus; GERD; hiatal hernia; Migraines; neuropathy; hj - PSHx: 14:45 GI surgery; hj - Immunization history:: Adult Immunizations up to date. - Social history:: Smoking status: Patient/guardian denies using tobacco, Patient uses alcohol, occasionally. - Ebola Screening: : Patient negative for fever greater than or equal to 101.5 degrees Fahrenheit, and additional compatible Ebola Virus Disease symptoms Patient denies exposure to infectious person Patient denies travel to an Ebola-affected area in the 21 days before illness onset. Screenin:46 Abuse screen: Denies threats or abuse. Denies injuries from another. Nutritional hj screening: No deficits noted. Tuberculosis screening: No symptoms or risk factors identified. Fall Risk None identified. Assessment: 16:09 General: Appears in no apparent distress. uncomfortable, Behavior is calm, cooperative. rv Pain: Complains of pain in head, generalized. Neuro: Level of Consciousness is awake, alert, obeys commands, Oriented to person, place, time, situation, Reports dizziness, since this morning. Cardiovascular: Heart tones S1 S2 Capillary refill < 3 seconds Rhythm is regular. Respiratory: Airway is patent. GI: No signs and/or symptoms were reported involving the gastrointestinal system. : No signs and/or symptoms were reported regarding the genitourinary system. EENT: No signs and/or symptoms were reported regarding the EENT system. Derm: Rash noted that is red, on generalized, mostly in the abdomen. Musculoskeletal: No signs and/or symptoms reported regarding the musculoskeletal system. 17:49 Reassessment: Patient appears in no apparent distress at this time. Patient is alert, rv oriented x 3, equal unlabored respirations, skin warm/dry/pink. Vital Signs: 14:46 BP 133 / 82; Pulse 113; Resp 18; Temp 99.5(O); Pulse Ox 98% on R/A; Weight 133.81 kg; hj Height 6 ft. 2 in. (187.96 cm); Pain 6/10; 15:27 BP 128 / 85 Supine; Pulse 90; rv 15:27 BP 130 / 93 Sitting; Pulse 105; rv 15:28 BP 139 / 79 Standing; Pulse 114; rv 16:12 BP 118 / 86; Pulse 83 MON; Resp 16 S; Pulse Ox 96% on R/A; rv 16:57 BP 110 / 79; Pulse 85 MON; Resp 16 S; Pulse Ox 99% on R/A; rv 17:30 BP 118 / 56; Pulse 86 MON; Resp 16 S; Pulse Ox 100% on R/A; rv 14:46 Body Mass Index 37.88 (133.81 kg, 187.96 cm) Visual Acuity: 15:09 Left Eye Visual acuity 20/30, Pupil size 2 mm, Normal, React To Light, Reactive To rv Accomodation; Right Eye Visual acuity 20/25, Pupil size 2 mm, Normal, React To Light, Reactive To Accomodation; Both Eyes Visual acuity 20/20; With Lenses; ED Course: 14:41 Patient arrived in ED. hj 14:44 Triage completed. hj 14:46 Arm band placed on left wrist. hj 14:46 Patient has correct armband on for positive identification. Placed in gown. Bed in low hj position. Call light in reach. Side rails up X 1. 14:58 Saurav Burgess PA is PHCP. cp 14:58 Edwardo Ruano MD is Attending Physician. cp 15:[address] via wheelchair. bq 15:25 CT completed. Patient moved back from CT. bq 15:27 Urine Microscopic Only Sent. rv 15:30 Inserted saline lock: 20 gauge in left antecubital area, using aseptic technique. Blood rv collected. 15:30 Initial lab(s) drawn, by me, sent to lab. EKG done, by ED staff, reviewed by Saurav OLEA. 15:59 X-ray completed. Portable x-ray completed in exam room. Patient tolerated procedure sg4 well. 16:13 Urine Dipstick--Ancillary (enter results) Sent. rv 16:14 Hemoglobin A1c Sent. rv 16:14 Basic Metabolic Panel Sent. rv 16:14 CBC with Diff Sent. rv 16:14 LFT's Sent. rv 16:14 Magnesium Sent. rv 16:15 NT PRO-BNP Sent. rv 16:15 PT-INR Sent. rv 16:15 Troponin (emerg Dept Use Only) Sent. rv 16:15 CT Head Brain wo Cont Sent. rv 16:15 Ketone, Serum Sent. rv 17:54 No provider procedures requiring assistance completed. IV discontinued, bleeding rv controlled, No redness/swelling at site. Pressure dressing applied. Administered Medications: 15:40 Drug: NS 0.9% 1000 ml Route: IV; Rate: 1 bolus; Site: left antecubital; rv 17:54 Follow up: IV Status: Completed infusion rv 15:40 Drug: NovoLIN R 10 units {Co-Signature: tl3 (Lety Cho RN).} Route: Sub-Q; Site: rv right lower abdomen; 17:54 Follow up: Response: No adverse reaction; Blood sugar is lowered rv Point of Care Testing: Blood Glucose: 14:46 Blood Glucose: 340 mg/dL; hj 16:40 Blood Glucose: 252 mg/dL; rv Ranges: Outcome: 17:49 Discharge ordered by . cp 17:55 Discharged to home ambulatory. rv 17:55 Condition: good 17:55 Discharge instructions given to patient, Instructed on discharge instructions, follow up and referral plans. medication usage, Demonstrated understanding of instructions, follow-up care, medications, Prescriptions given X 1. 17:55 Patient left the ED. rv Signatures: Dorene Mackenzie Henry RN RN Saurav Burgess PA PA cp Zi Robles RN RN rv Natalee Price sg4 Lety Cho RN tl3 Corrections: (The following items were deleted from the chart) 14:50 14:46 Pulse 113bpm; Resp 18bpm; Pulse Ox 98% RA; Temp 99.5F Oral; 133.81 kg; Height 6 hj ft. 2 in.; BMI: 37.8; Pain 6/10; hj
--- NOTE | 2018-08-30 17:49 | EDPHYS ---
Physician Documentation [facility] Name: Chente Minaya Age: 48 yrs Sex: Male : 1970 Arrival Date: 08/30/2018 Time: 14:41 Bed 30 Private MD: ED Physician Edwardo Ruano HPI: 08/30 15:10 This 48 yrs old Male presents to ER via Ambulatory with complaints of cp Dizziness, Blurred Vision. 15:10 The patient presents with lightheadedness. Onset: The symptoms/episode began/occurred cp today. 15:10 Context: occurred while the patient was out shopping. just prior to the episode the cp patient experienced no apparent symptoms. Associated signs and symptoms: Pertinent positives: blurred vision, Pertinent negatives: abdominal pain, chest pain, confusion, diaphoresis, focal weakness, headache, palpitations, syncope, vomiting. Severity of symptoms: in the emergency department the symptoms have improved mildly. Patient's baseline: Neuro: alert and fully oriented, Motor: no deficits, Ambulation: walks without assistance, Speech: normal. Patient reports PMHX significant for diabetes mellitus. Reports no current treatment other than through diet, weight loss. Took metformin in the past but was intolerant due to GI side effects. 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 Has not f/u with doctor recently. Historical: - Allergies: 14:45 Bactrim; hj 14:45 mushroom; hj 14:45 PENICILLINS; hj 14:45 Sulfa (Sulfonamide Antibiotics); hj 14:45 surgical steel; hj 14:45 Tylenol-Codeine #3; hj 14:45 Tylenol-Codeine #4; hj - Home Meds: 14:45 None [Active]; hj - PMHx: 14:45 Depression; Diabetes - NIDDM; food bolus; GERD; hiatal hernia; Migraines; neuropathy; hj - PSHx: 14:45 GI surgery; hj - Immunization history:: Adult Immunizations up to date. - Social history:: Smoking status: Patient/guardian denies using tobacco, Patient uses alcohol, occasionally. - Ebola Screening: : Patient negative for fever greater than or equal to 101.5 degrees Fahrenheit, and additional compatible Ebola Virus Disease symptoms Patient denies exposure to infectious person Patient denies travel to an Ebola-affected area in the 21 days before illness onset. ROS: 15:15 Constitutional: Negative for body aches, chills, fever, poor PO intake. cp 15:15 Eyes: Positive for blurry vision, Negative for discharge, pain, redness, vision loss. cp 15:15 ENT: Negative for drainage from ear(s), ear pain, sore throat, difficulty swallowing, difficulty handling secretions. 15:15 Neck: Negative for pain with movement, pain at rest, stiffness, tenderness. 15:15 Cardiovascular: Negative for chest pain, edema, palpitations. 15:15 Respiratory: Negative for cough, shortness of breath, wheezing. 15:15 Abdomen/GI: Negative for abdominal pain, nausea, vomiting, and diarrhea, constipation, black/tarry stool, rectal bleeding. 15:15 : Negative for urinary symptoms, difficulty urinating. 15:15 Skin: Negative for cellulitis, rash. 15:15 Neuro: Positive for dizziness, Negative for altered mental status, gait disturbance, headache, numbness, syncope, near syncope, weakness. 15:15 All other systems are negative. Exam: 15:22 Constitutional: The patient appears in no acute distress, alert, awake, cp non-diaphoretic, non-toxic, well developed, well nourished. 15:22 Head/Face: Normocephalic, atraumatic. Eyes: Pupils equal round and reactive to light, cp extra-ocular motions intact. Lids and lashes normal. Conjunctiva and sclera are non-icteric and not injected. Cornea within normal limits. Periorbital areas with no swelling, redness, or edema. ENT: Nares patent. No nasal discharge, no septal abnormalities noted. Tympanic membranes are normal and external auditory canals are clear. Oropharynx with no redness, swelling, or masses, exudates, or evidence of obstruction, uvula midline. Mucous membranes moist. Chest/axilla: Normal chest wall appearance and motion. Nontender with no deformity. No lesions are appreciated. 15:22 Cardiovascular: Rate: tachycardic, Rhythm: regular, Heart sounds: murmur, not appreciated, Edema: is not appreciated, JVD: is not appreciated. 15:22 Respiratory: the patient does not display signs of respiratory distress, Respirations: normal, no use of accessory muscles, no retractions, no splinting, no tachypnea, labored breathing, is not present, Breath sounds: are clear throughout, no decreased breath sounds, no stridor, no wheezing. 15:22 Abdomen/GI: Inspection: abdomen appears normal, Bowel sounds: active, all quadrants, Palpation: abdomen is soft and non-tender, in all quadrants, rebound tenderness, is not appreciated, voluntary guarding, is not appreciated, involuntary guarding, is not appreciated. 15:22 Back: pain, is absent, ROM is normal. 15:22 Musculoskeletal/extremity: Exam is negative for bony tenderness, calf tenderness, decreased range of motion, injury. 15:22 Skin: cellulitis, is not appreciated, no rash present. 15:22 Neuro: Orientation: to person, place \T\ time. Mentation: is normal, Cranial nerves: grossly normal, Cerebellar function: is grossly normal, Motor: is normal, Sensation: is normal. 15:50 ECG was reviewed by the Attending Physician. cp Vital Signs: 14:46 BP 133 / 82; Pulse 113; Resp 18; Temp 99.5(O); Pulse Ox 98% on R/A; Weight 133.81 kg; hj Height 6 ft. 2 in. (187.96 cm); Pain 6/10; 15:27 BP 128 / 85 Supine; Pulse 90; rv 15:27 BP 130 / 93 Sitting; Pulse 105; rv 15:28 BP 139 / 79 Standing; Pulse 114; rv 16:12 BP 118 / 86; Pulse 83 MON; Resp 16 S; Pulse Ox 96% on R/A; rv 16:57 BP 110 / 79; Pulse 85 MON; Resp 16 S; Pulse Ox 99% on R/A; rv 17:30 BP 118 / 56; Pulse 86 MON; Resp 16 S; Pulse Ox 100% on R/A; rv 14:46 Body Mass Index 37.88 (133.81 kg, 187.96 cm) Visual Acuity: 15:09 Left Eye Visual acuity 20/30, Pupil size 2 mm, Normal, React To Light, Reactive To rv Accomodation; Right Eye Visual acuity 20/25, Pupil size 2 mm, Normal, React To Light, Reactive To Accomodation; Both Eyes Visual acuity 20/20; With Lenses; MDM: 14:58 Patient medically screened. cp 15:15 Differential diagnosis: cardiac arrhythmia, CVA, GI bleed, hypovolemia, idiopathic cp dizziness, TIA, vertigo, DKA, hyperglycemia. 17:47 Data reviewed: vital signs, nurses notes, lab test result(s), EKG, radiologic studies, cp CT scan, plain films. 17:47 Test interpretation: by ED physician or midlevel provider: ECG, plain radiologic cp studies. Counseling: I had a detailed discussion with the patient and/or guardian regarding: the historical points, exam findings, and any diagnostic results supporting the discharge/admit diagnosis, lab results, radiology results, the need for outpatient follow up, for definitive care, a family practitioner, to return to the emergency department if symptoms worsen or persist or if there are any questions or concerns that arise at home. Response to treatment: the patient's symptoms have markedly improved after treatment, VSS. Patient reports symptoms improved after treatment. Will discharge to home for continued monitoring. 08/30 15:06 Order name: Basic Metabolic Panel cp 08/30 15:06 Order name: CBC with Diff cp 08/30 15:06 Order name: LFT's cp 08/30 15:06 Order name: Magnesium cp 08/30 15:06 Order name: NT PRO-BNP cp 08/30 15:06 Order name: PT-INR cp 08/30 15:06 Order name: Troponin (emerg Dept Use Only) cp 08/30 15:06 Order name: Urine Microscopic Only cp 08/30 15:06 Order name: Hemoglobin A1c cp 08/30 15:06 Order name: Ketone, Serum cp 08/30 15:29 Order name: Urine Dipstick--Ancillary (enter results) dh3 08/30 15:38 Order name: Urine Dipstick-Ancillary; Complete Time: 16:16 EDMS 08/30 15:59 Order name: Protime (+INR); Complete Time: 16:16 EDMS 08/30 16:00 Order name: CBC with Automated Diff; Complete Time: 16:16 EDMS 16 16:16 Interpretation: Normal except: RBC 5.70; MCH 26.8. cp 08/30 14:58 Order name: Visual Acuity; Complete Time: 15:11 cp 16 15:06 Order name: CT Head Brain wo Cont cp 08/30 15:06 Order name: XRAY Chest (1 view) cp 08/30 15:06 Order name: EKG; Complete Time: 15:07 cp 08/30 15:06 Order name: Cardiac monitoring; Complete Time: 16:14 cp 12/16 15:43 Order name: CT; Complete Time: 16:16 EDMS 16 16:08 Order name: Basic Metabolic Panel; Complete Time: 17:29 EDMS 16 17:30 Interpretation: Normal except: GLUC 321; GFR 59; CA 8.4. /16 16:08 Order name: Liver (Hepatic) Function; Complete Time: 17:29 EDMS 16 17:30 Interpretation: Normal except: GLOB 3.8; A/G 1.0. 12/16 16:08 Order name: Troponin (Emerg Dept Use Only); Complete Time: 17:29 EDMS 16 16:08 Order name: NT PRO-BNP; Complete Time: 17:29 EDMS /16 16:08 Order name: Magnesium; Complete Time: 17:29 EDMS 16 16:16 Order name: Urine Microscopic Only; Complete Time: 16:16 EDMS 16 16:40 Order name: Acetone Level; Complete Time: 17:29 EDMS 16 16:41 Order name: RAD; Complete Time: 17:29 EDMS 16 15:06 Order name: EKG - Nurse/Tech; Complete Time: 16:14 /16 15:06 Order name: IV Saline Lock; Complete Time: 16:14 16 15:06 Order name: Labs collected and sent; Complete Time: 16:14 16 15:06 Order name: O2 Per Protocol; Complete Time: 16:14 /16 15:06 Order name: O2 Sat Monitoring; Complete Time: 16:17 08/30 15:06 Order name: Urine Dipstick-Ancillary (obtain specimen); Complete Time: 15:27 / 15:06 Order name: Orthostatics; Complete Time: 15:27 16 16:25 Order name: Accucheck Blood Glucose; Complete Time: 16:42 cp EC:50 Rate is 89 beats/min. Rhythm is regular. MS interval is normal. QRS interval is normal. cp QT interval is normal. Interpreted by me. Reviewed by me. Administered Medications: 15:40 Drug: NS 0.9% 1000 ml Route: IV; Rate: 1 bolus; Site: left antecubital; rv 17:54 Follow up: IV Status: Completed infusion rv 15:40 Drug: NovoLIN R 10 units {Co-Signature: tl3 (Lety Cho RN).} Route: Sub-Q; Site: rv right lower abdomen; 17:54 Follow up: Response: No adverse reaction; Blood sugar is lowered rv Point of Care Testing: Blood Glucose: 14:46 Blood Glucose: 340 mg/dL; hj 16:40 Blood Glucose: 252 mg/dL; rv Ranges: Critical Glucose Levels:Adult <50 mg/dl or >400 mg/dl <40 mg/dl or >180 mg/dl Disposition: 18:10 Chart complete. cp 18:50 Co-signature as Attending Physician, Edwardo Ruano MD. Disposition: 08/30/18 17:49 Discharged to Home. Impression: Diabetes mellitus due to underlying condition with hyperglycemia. - Condition is Stable. - Discharge Instructions: Type 2 Diabetes Mellitus, Diagnosis, Adult, Hyperglycemia, Blood Glucose Monitoring, Adult, Diabetes Mellitus and Food. - Prescriptions for Glyburide 2.5 mg Oral Tablet - take 1 tablet by ORAL route once daily; 20 tablet. - Medication Reconciliation Form, Thank You Letter, Antibiotic Education, Prescription Opioid Use form. - Follow up: Private Physician; When: Tomorrow; Reason: Recheck today's complaints. - Problem is an ongoing problem. - Symptoms have improved. Signatures: Dispatcher [employer] EDMS Moris Murphy RN RN Saurav Winkler PA PA Edwardo Ruano MD MD Zi Robles RN RN Lety Cho RN tl3 Corrections: (The following items were deleted from the chart) 17:30 17:30 Normal except: GLUC 321; GFR 59. cp cp 17:55 17:49 08/30/2018 17:49 Discharged to Home. Impression: Diabetes mellitus due to rv underlying condition with hyperglycemia. Condition is Stable. Forms are Medication Reconciliation Form, Thank You Letter, Antibiotic Education, Prescription Opioid Use. Follow up: Private Physician; When: Tomorrow; Reason: Recheck today's complaints. Problem is an ongoing problem. Symptoms have improved. cp
[2018-08-30 18:08] VITALS: TEMP 99.5
[2018-08-30 18:14] VITALS: BP 118/56; O2SAT 100
--- NOTE | 2018-08-31 07:05 | EKG ---
Test Date: 2018-08-30 Test Time: 15:42:29 Administrator: MEASUREMENT RESULTS: Intervals: Rate: 89 NV: 152 QRSD: 90 QT: 360 QTc: 438 [place]: P: 58 NV: 152 QRS: -16 T: 40 INTERPRETIVE STATEMENTS: Normal sinus rhythm Normal ECG Compared to ECG 07/03/2018 18:01:53 No significant changes Electronically Signed On 08-31-18 07:04:14 [employer]ER by Devin Nassar
== END 2018-08-30 17:55 | disposition home or self-care (01) ==
LOC: ER 14:38
DX: E11.65 Type 2 diabetes mellitus with hyperglycemia (principal); Z88.0 Allergy status to penicillin; Z88.1 Allergy status to other antibiotic agents; Z88.2 Allergy status to sulfonamides; Z88.5 Allergy status to narcotic agent; Z91.018 Allergy to other foods; Z91.048 Other nonmedicinal substance allergy status
CPT/HCPCS: 36415; 70450; 71045; 80048; 80076; 81003; 81015; 82010; 82962; 83735; 83880; 84484; 85025; 85610; 93005; 96360; 96361; 96372; 99284; J7030

== ENCOUNTER 2019-02-07 13:06 | Emergency (ER) | payer BC, SELFPAY ==
--- NOTE | 2019-02-07 14:46 | RAD REPORT ---
EXAM DESCRIPTION: RAD - Knee Right 3 View - 02/07/2019 2:40 pm CLINICAL HISTORY: Knee pain following twisting injury. COMPARISON: None. FINDINGS: No fracture, dislocation or periosteal reaction.No joint effusion seen. No joint space jessica rowing. No foreign body or other soft tissue abnormality. IMPRESSION: Negative right knee. Clinical concerns for internal derangement or occult bony injury could be further assessed with MR im aging.
--- NOTE | 2019-02-07 15:09 | ER ---
Nurse's Notes [facility] Name: Chente Minaya Age: 48 yrs Sex: Male : 1970 Arrival Date: 02/07/2019 Time: 13:09 Bed 12 Private MD: Diagnosis: Pain in right knee Presentation: 02/07 13:21 Presenting complaint: Patient states: Right knee pain after stepping out of truck wrong la1 one week ago. Pain and popping with ROM. Transition of care: patient was not received from another setting of care. Onset of symptoms was February 07, 2019. Risk Assessment: Do you want to hurt yourself or someone else? Patient reports no desire to harm self or others. Initial Sepsis Screen: Does the patient meet any 2 criteria? No. Patient's initial sepsis screen is negative. Does the patient have a suspected source of infection? No. Patient's initial sepsis screen is negative. Care prior to arrival: None. 13:21 Method Of Arrival: Ambulatory la1 13:21 Acuity: GILDARDO 4 la1 Historical: - Allergies: 13:22 Bactrim; la1 13:22 mushroom; la1 13:22 PENICILLINS; la1 13:22 Sulfa (Sulfonamide Antibiotics); la1 13:22 surgical steel; la1 13:22 Tylenol-Codeine #3; la1 13:22 Tylenol-Codeine #4; la1 - PMHx: 13:22 Depression; Diabetes - NIDDM; food bolus; GERD; hiatal hernia; Migraines; neuropathy; la1 - Immunization history:: Adult Immunizations up to date. - Social history:: Smoking status: Patient/guardian denies using tobacco. - Ebola Screening: : No symptoms or risks identified at this time. Screenin:23 Abuse screen: Denies threats or abuse. Nutritional screening: No deficits noted. la1 Tuberculosis screening: No symptoms or risk factors identified. Fall Risk None identified. Assessment: 13:22 General: Appears in no apparent distress. Behavior is calm, cooperative. Pain: la1 Complains of pain in right knee. Neuro: Level of Consciousness is awake, alert, obeys commands, Oriented to person, place, time, situation, Gait is steady. Cardiovascular: Capillary refill < 3 seconds Patient's skin is warm and dry. Respiratory: Airway is patent Respiratory effort is even, unlabored, Respiratory pattern is regular, symmetrical. GI: No signs and/or symptoms were reported involving the gastrointestinal system. : No signs and/or symptoms were reported regarding the genitourinary system. Musculoskeletal: Swelling present in right knee Brace present to right knee. Vital Signs: 13:22 BP 119 / 72; Pulse 87; Resp 16; Temp 98.6; Pulse Ox 98% on R/A; Weight 136.08 kg; la1 Height 6 ft. 2 in. (187.96 cm); 13: Body Mass Index 38.52 (136.08 kg, 187.96 cm) la1 ED Course: 13:09 Patient arrived in ED. rg4 13:21 Triage completed. la1 13:22 Arm band placed on left wrist. la1 13:23 Call light in reach. la1 13:38 [facility] snw 13:38 Daren Cuenca MD is Attending Physician. snw 13:42 Shiloh Corbin, RN is Primary Nurse. iw 14:42 Knee Right 3 View XRAY In Process Unspecified. EDMS 15:29 No provider procedures requiring assistance completed. Patient did not have IV access la1 during this emergency room visit. Administered Medications: No medications were administered Outcome: 15:09 Discharge ordered by . snw 15:29 Discharged to home ambulatory. la1 15:29 Condition: stable 15:29 Discharge instructions given to patient, Instructed on discharge instructions, follow up and referral plans. medication usage, Demonstrated understanding of instructions, follow-up care, medications, Prescriptions given X 2. 15:29 Patient left the ED. la1 Signatures: Dispatcher [employer] EDMS Brittany Lorenzo FNP-C [employer]INE[employer] Shiloh Corbin, RN Dre Goyal RN RN la1 Garcia, Rubi rg4
--- NOTE | 2019-02-07 15:10 | EDPHYS ---
Physician Documentation [facility] Name: Chente Minaya Age: 48 yrs Sex: Male : 1970 Arrival Date: 02/07/2019 Time: 13:09 Bed 12 Private MD: ED Physician Daren Cuenca HPI: 02/07 18:34 This 48 yrs old Male presents to ER via Ambulatory with complaints of Knee snw Pain. 18:34 The patient presents with decreased range of motion, pain. The complaints affect the snw right knee. Context: The problem was sustained outdoors, resulted from a mis-step, down from truck. Onset: The symptoms/episode began/occurred suddenly, 4 day(s) ago, and became worse and became persistent. Associated signs and symptoms: Pertinent positives: popping, locking. Treatment prior to arrival includes: knee splint with metal stays, pt allergic to T#3 . Severity of symptoms: At their worst the symptoms were moderate. The patient has experienced a previous episode. The patient has not recently seen a physician, . Historical: - Allergies: 13:22 Bactrim; la1 13:22 mushroom; la1 13:22 PENICILLINS; la1 13:22 Sulfa (Sulfonamide Antibiotics); la1 13:22 surgical steel; la1 13:22 Tylenol-Codeine #3; la1 13:22 Tylenol-Codeine #4; la1 - PMHx: 13:22 Depression; Diabetes - NIDDM; food bolus; GERD; hiatal hernia; Migraines; neuropathy; la1 - Immunization history:: Adult Immunizations up to date. - Social history:: Smoking status: Patient/guardian denies using tobacco. - Ebola Screening: : No symptoms or risks identified at this time. ROS: 14:02 Constitutional: Negative for fever, chills, and weight loss, Eyes: Negative for injury, snw pain, redness, and discharge, ENT: Negative for injury, pain, and discharge, Neck: Negative for injury, pain, and swelling, Cardiovascular: Negative for chest pain, palpitations, and edema, Respiratory: Negative for shortness of breath, cough, wheezing, and pleuritic chest pain, Abdomen/GI: Negative for abdominal pain, nausea, vomiting, diarrhea, and constipation, Back: Negative for injury and pain, : Negative for injury, bleeding, discharge, and swelling, Skin: Negative for injury, rash, and discoloration, Neuro: Negative for headache, weakness, numbness, tingling, and seizure, Psych: Negative for depression, anxiety, suicide ideation, homicidal ideation, and hallucinations. 14:02 MS/extremity: Positive for injury or acute deformity, pain, of the right knee, states he stepped out of truck and felt popping and looseness in knee. Exam: 14:01 Constitutional: This is a well developed, well nourished patient who is awake, alert, snw and in no acute distress. Head/Face: Normocephalic, atraumatic. Eyes: Pupils equal round and reactive to light, extra-ocular motions intact. Lids and lashes normal. Conjunctiva and sclera are non-icteric and not injected. Cornea within normal limits. Periorbital areas with no swelling, redness, or edema. ENT: Nares patent. No nasal discharge, no septal abnormalities noted. Tympanic membranes are normal and external auditory canals are clear. Oropharynx with no redness, swelling, or masses, exudates, or evidence of obstruction, uvula midline. Mucous membranes moist. Neck: Trachea midline, no thyromegaly or masses palpated, and no cervical lymphadenopathy. Supple, full range of motion without nuchal rigidity, or vertebral point tenderness. No Meningismus. Chest/axilla: Normal chest wall appearance and motion. Nontender with no deformity. No lesions are appreciated. Cardiovascular: Regular rate and rhythm with a normal S1 and S2. No gallops, murmurs, or rubs. Normal PMI, no JVD. No pulse deficits. Respiratory: Lungs have equal breath sounds bilaterally, clear to auscultation and percussion. No rales, rhonchi or wheezes noted. No increased work of breathing, no retractions or nasal flaring. Abdomen/GI: Soft, non-tender, with normal bowel sounds. No distension or tympany. No guarding or rebound. No evidence of tenderness throughout. Back: No spinal tenderness. No costovertebral tenderness. Full range of motion. Skin: Warm, dry with normal turgor. Normal color with no rashes, no lesions, and no evidence of cellulitis. Neuro: Awake and alert, GCS 15, oriented to person, place, time, and situation. Cranial nerves II-XII grossly intact. Motor strength 5/5 in all extremities. Sensory grossly intact. Cerebellar exam normal. Normal gait. Psych: Awake, alert, with orientation to person, place and time. Behavior, mood, and affect are within normal limits. 14:01 Psych: Awake, alert, with orientation to person, place and time. Behavior, mood, and affect are within normal limits. 14:01 Musculoskeletal/extremity: Extremities: grossly normal except: noted in the right knee: pain, ROM: limited active range of motion due to pain, Circulation is intact in all extremities. Sensation intact. Compartment Syndrome exam of affected extremity: no numbness, no tingling, Weight bearing: able to fully bear weight, describes popping, locking. Vital Signs: 13:22 BP 119 / 72; Pulse 87; Resp 16; Temp 98.6; Pulse Ox 98% on R/A; Weight 136.08 kg; la1 Height 6 ft. 2 in. (187.96 cm); 13:22 Body Mass Index 38.52 (136.08 kg, 187.96 cm) la1 MDM: 13:41 Patient medically screened. snw 18:33 Data reviewed: vital signs, nurses notes. Data interpreted: Pulse oximetry: on room air snw is 98 %. Interpretation: normal. Counseling: I had a detailed discussion with the patient and/or guardian regarding: the historical points, exam findings, and any diagnostic results supporting the discharge/admit diagnosis, radiology results, the need for outpatient follow up, to return to the emergency department if symptoms worsen or persist or if there are any questions or concerns that arise at home. Special discussion: Based on the history and exam findings, there is no indication for further emergent testing or inpatient evaluation. I discussed with the patient/guardian the need to see the orthopedic surgeon for further evaluation of the symptoms. 02/07 13:40 Order name: Knee Right 3 View XRAY; Complete Time: 14:49 snw Administered Medications: No medications were administered Disposition: 02/07/19 15:09 Discharged to Home. Impression: Pain in right knee. - Condition is Stable. - Discharge Instructions: Joint Pain, How to Use a Knee Brace, Knee Pain, Cryotherapy, [id number], Heat Therapy. - Prescriptions for Diclofenac Sodium 75 mg Oral Tablet Sustained Release - take 1 tablet by ORAL route 2 times per day; 30 tablet. orphenadrine citrate 100 mg Oral Tablet Sustained Release - take 1 tablet by ORAL route 2 times per day As needed; 20 tablet. - Medication Reconciliation Form, Thank You Letter, Antibiotic Education, Prescription Opioid Use form. - Follow up: Private Physician; When: 2 - 3 days; Reason: Recheck today's complaints, Continuance of care, Re-evaluation by your physician. Follow up: Emergency Department; When: As needed; Reason: Worsening of condition. Addendum: 02/09/2019 08:07 Co-signature as Attending Physician, Daren Cuenca MD I agree with the assessment and k dr plan of care. Signatures: Dispatcher [employer] EDMS Daren Cuenca MD MD [facility] Brittany Lorenzo, MAGUI-C RAILROAD INSPECTOR-Dre Christianson RN RN la1 Corrections: (The following items were deleted from the chart) 02/07 15:29 15:09 02/07/2019 15:09 Discharged to Home. Impression: Pain in right knee. Condition is la1 Stable. Forms are Medication Reconciliation Form, Thank You Letter, Antibiotic Education, Prescription Opioid Use. Follow up: Private Physician; When: 2 - 3 days; Reason: Recheck today's complaints, Continuance of care, Re-evaluation by your physician. Follow up: Emergency Department; When: As needed; Reason: Worsening of condition. snw 18:36 18:34 Treatment prior to arrival includes: knee splint with metal stays, pt on T#3 , snwsnw
[2019-02-07 15:44] VITALS: BP 119/72; TEMP 98.6; O2SAT 98
== END 2019-02-07 15:29 | disposition home or self-care (01) ==
LOC: ER 13:06
DX: M25.561 Pain in right knee (principal); F32.9 Major depressive disorder, single episode, unspecified; E11.9 Type 2 diabetes mellitus without complications; K21.9 Gastro-esophageal reflux disease without esophagitis; Z88.1 Allergy status to other antibiotic agents; Z88.5 Allergy status to narcotic agent; Z88.0 Allergy status to penicillin; Z88.2 Allergy status to sulfonamides
CPT/HCPCS: 99283

== ENCOUNTER 2020-12-31 16:44 | Emergency (ER) | payer OTHER, SELFPAY ==
--- OUTSIDE RECORDS SUMMARY | 2020-12-31 16:47 | XMS REPORT | Continuity of Care Document ---
:1970 Author Organization [facility] t Address [address] [place] [address] Care Team Providers Name Role Phone Taye Bernal MD Attending Clinician Problems This patient has no known problems. Allergies, Adverse Reactions, Alerts This patient has no known allergies or adverse reactions. Medications This patient has no known medications. Procedures This patient has no known procedures. Encounters Start End Encounter Admission Attending Care Care Encounter Source Date/Time Date/Time Type Type Clinicians Facility Department ID 2020-04-24 2020-04-24 Office AYESHA Bernal [id number] 08:15:37 08:49:56 Visit Norberto Ward [id number] [place] [id number] [place] [phone] [place] 092 Building Results This patient has no known results.
[2020-12-31] MEDS ORDERED: HYDROCODONE/APAP 10/325 TAB ONE (17:42)
--- NOTE | 2020-12-31 18:08 | ER ---
Nurse's Notes [facility] Name: Chente Minaya Age: 50 yrs Sex: Male : 1970 Arrival Date: 12/31/2020 Time: 16:49 Bed 12 Private MD: Diagnosis: Unspecified sprain of left shoulder joint Presentation: 12/31 17:02 Chief complaint: Patient states: "A couple of weeks ago I hurt my left shoulder. I got jd3 a steroid ordered for it, but the pain has steadily gotten worse.". Coronavirus screen: At this time, the client does not indicate any symptoms associated with coronavirus-19. Ebola Screen: Patient negative for fever greater than or equal to 101.5 degrees Fahrenheit, and additional compatible Ebola Virus Disease symptoms. Initial Sepsis Screen: Does the patient meet any 2 criteria? No. Patient's initial sepsis screen is negative. Does the patient have a suspected source of infection? No. Patient's initial sepsis screen is negative. Risk Assessment: Do you want to hurt yourself or someone else? Patient reports no desire to harm self or others. Note Meloxicam 15 MG last dose 2 days ago. Onset of symptoms was December 15, 2020. 17:02 Method Of Arrival: Ambulatory jd3 17:02 Acuity: GILDARDO 4 jd3 Historical: - Allergies: 17:05 Bactrim; jd3 17:05 mushroom; jd3 17:05 PENICILLINS; jd3 17:05 Tylenol-Codeine #3; jd3 17:05 Tylenol-Codeine #4; jd3 17:05 surgical steel; jd3 17:05 Sulfa (Sulfonamide Antibiotics); jd3 17:05 tramadol; jd3 - PMHx: 17:05 Diabetes - NIDDM; Depression; food bolus; GERD; hiatal hernia; Migraines; neuropathy; jd3 - PSHx: 17:05 GI sx; Appendectomy; jd3 - Immunization history:: Adult Immunizations up to date. - Social history:: Smoking status: Patient denies any tobacco usage or history of. Screenin:28 Abuse screen: Denies threats or abuse. Nutritional screening: No deficits noted. jd3 Tuberculosis screening: No symptoms or risk factors identified. Fall Risk Ambulatory Aid- None/Bed Rest/Nurse Assist (0 pts). Gait- Normal/Bed Rest/Wheelchair (0 pts) Mental Status- Oriented to own ability (0 pts). Total Prieto Fall Scale indicates No Risk (0-24 pts). Assessment: 17:26 General: Appears in no apparent distress. comfortable, Behavior is calm, cooperative, jd3 appropriate for age. Pain: Complains of pain in left shoulder Quality of pain is described as aching. Neuro: Level of Consciousness is awake, alert, obeys commands, Oriented to person, place, time, situation. Cardiovascular: Denies chest pain, Capillary refill < 3 seconds Patient's skin is warm and dry. Respiratory: Airway is patent Respiratory effort is even, unlabored, Respiratory pattern is regular, symmetrical, Denies cough, shortness of breath. GI: No signs and/or symptoms were reported involving the gastrointestinal system. : No signs and/or symptoms were reported regarding the genitourinary system. EENT: No signs and/or symptoms were reported regarding the EENT system. Derm: Skin is intact, Skin is dry, Skin is normal, Skin temperature is warm. Musculoskeletal: Circulation, motion, and sensation intact. Range of motion: intact in all extremities. 18:17 Reassessment: Patient appears in no apparent distress at this time. No changes from jd3 previously documented assessment. Patient and/or family updated on plan of care and expected duration. Pain level reassessed. Patient is alert, oriented x 3, equal unlabored respirations, skin warm/dry/pink. Vital Signs: 17:05 BP 121 / 72; Pulse 79; Resp 17 S; Temp 97.5(TE); Pulse Ox 99% on R/A; Weight 129.27 kg jd3 (R); Height 6 ft. 2 in. (187.96 cm) (R); Pain 5/10; 18:18 BP 130 / 75; Pulse 77; Resp 16 S; Pulse Ox 99% on R/A; jd3 17:05 Body Mass Index 36.59 (129.27 kg, 187.96 cm) jd3 ED Course: 16:49 Patient arrived in ED. am2 17:03 Triage completed. jd3 17:05 Arm band placed on. jd3 17:06 [facility] pm1 17:06 Saurav Blount MD is Attending Physician. pm1 17:26 Obando, Buzz, RN is Primary Nurse. jd3 17:28 Patient has correct armband on for positive identification. Bed in low position. Call jd3 light in reach. Side rails up X 1. Pulse ox on. NIBP on. 17:31 Shoulder Left (2 View) XRAY In Process Unspecified. EDMS 18:17 No provider procedures requiring assistance completed. Patient did not have IV access jd3 during this emergency room visit. Administered Medications: 17:26 Drug: [address] (HYDROcodone-acetaminophen) 10 mg-325 mg 1 tabs Route: PO; jd3 18:19 Follow up: Response: No adverse reaction; RASS: Alert and Calm (0) jd3 Outcome: 18:07 Discharge ordered by MD. pm1 18:18 Discharged to home ambulatory, with friend. jd3 18:18 Condition: stable 18:18 Discharge instructions given to patient, Instructed on discharge instructions, follow up and referral plans. medication usage, Demonstrated understanding of instructions, follow-up care, medications, Prescriptions given X 1. 18:19 Patient left the ED. jd3 Signatures: Dispatcher [employer] EDMS Dedrick Atkinson, FROZEN FOOD SELECTOR FROZEN FOOD SELECTOR pm1 Bruna Whyte am2 Buzz Obando, RN RN jd3
--- NOTE | 2020-12-31 18:08 | EDPHYS ---
Physician Documentation [facility] Name: Chente Minaya Age: 50 yrs Sex: Male : 1970 Arrival Date: 12/31/2020 Time: 16:49 Bed 12 Private MD: BRYAN Physician Saurav Blount HPI: 12/31 17:18 This 50 yrs old Male presents to ER via Ambulatory with complaints of pm1 Shoulder Pain. 17:18 The patient or guardian complains of pain, that is acute. left shoulder. Context: The pm1 problem was sustained at an unknown site, resulted from an unknown reason, The patient reports no decreased range of motion. The patient reports no obvious deformity. Onset: The symptoms/episode began/occurred 2 week(s) ago. Modifying factors: the symptoms are alleviated by remaining still, The symptoms are aggravated by movement. Associated signs and symptoms: The patient has no apparent associated signs or symptoms, Pertinent negatives: Numbness in left arm tingling, Weakness in left arm. Severity of symptoms: in the emergency department the symptoms are actually worse. Treatment prior to arrival includes: prescription medications, Meloxicam per telemedicine. The patient has not experienced similar symptoms in the past. Historical: - Allergies: 17:05 Bactrim; jd3 17:05 mushroom; jd3 17:05 PENICILLINS; jd3 17:05 Tylenol-Codeine #3; jd3 17:05 Tylenol-Codeine #4; jd3 17:05 surgical steel; jd3 17:05 Sulfa (Sulfonamide Antibiotics); jd3 17:05 tramadol; jd3 - PMHx: 17:05 Diabetes - NIDDM; Depression; food bolus; GERD; hiatal hernia; Migraines; neuropathy; jd3 - PSHx: 17:05 GI sx; Appendectomy; jd3 - Immunization history:: Adult Immunizations up to date. - Social history:: Smoking status: Patient denies any tobacco usage or history of. ROS: 17:18 Constitutional: Negative for fever, chills, and weight loss, Cardiovascular: Negative pm1 for chest pain, palpitations, and edema, Respiratory: Negative for shortness of breath, cough, wheezing, and pleuritic chest pain. 17:18 Skin: Negative for injury, rash, and discoloration, Neuro: Negative for headache, weakness, numbness, tingling, and seizure. 17:18 MS/extremity: Positive for pain, of the left shoulder. Exam: 17:18 Constitutional: This is a well developed, well nourished patient who is awake, alert, pm1 and in no acute distress. Head/Face: Normocephalic, atraumatic. 17:18 Skin: Warm, dry with normal turgor. Normal color with no rashes, no lesions, and no evidence of cellulitis. 17:18 Cardiovascular: Exam negative for acute changes, Rate: normal, Rhythm: regular, Pulses: no pulse deficits are appreciated. 17:18 Respiratory: Exam negative for acute changes, respiratory distress, shortness of breath. 17:18 Musculoskeletal/extremity: Extremities: grossly normal except: noted in the anterior aspect of left shoulder: tenderness, There is no evidence of decreased ROM, deformity, swelling, ROM: full active range of motion, in the left shoulder and left arm, Circulation is intact in all extremities. the left arm Sensation intact. Vital Signs: 17:05 BP 121 / 72; Pulse 79; Resp 17 S; Temp 97.5(TE); Pulse Ox 99% on R/A; Weight 129.27 kg jd3 (R); Height 6 ft. 2 in. (187.96 cm) (R); Pain 5/10; 18:18 BP 130 / 75; Pulse 77; Resp 16 S; Pulse Ox 99% on R/A; jd3 17:05 Body Mass Index 36.59 (129.27 kg, 187.96 cm) jd3 MDM: 17:06 Patient medically screened. pm1 18:07 Data reviewed: vital signs. Data interpreted: Pulse oximetry: on room air is 99 %. pm1 Interpretation: normal. Counseling: I had a detailed discussion with the patient and/or guardian regarding: the historical points, exam findings, and any diagnostic results supporting the discharge/admit diagnosis, radiology results, the need for outpatient follow up, for definitive care, a orthopedic surgeon, to return to the emergency department if symptoms worsen or persist or if there are any questions or concerns that arise at home. 12/31 17:07 Order name: Shoulder Left (2 View) XRAY pm1 12/31 17:18 Order name: Sling; Complete Time: 17:35 pm1 Administered Medications: 17:26 Drug: [place] (HYDROcodone-acetaminophen) 10 mg-325 mg 1 tabs Route: PO; jd3 18:19 Follow up: Response: No adverse reaction; RASS: Alert and Calm (0) jd3 Disposition: 01/01 08:56 Co-signature as Attending Physician, Saurav Blount MD I agree with the assessment and jermaine plan of care. Disposition: 12/31/20 18:07 Discharged to Home. Impression: Unspecified sprain of left shoulder joint. - Condition is Stable. - Discharge Instructions: Shoulder Pain, Shoulder Sprain, How to Use a Sling. - Prescriptions for meloxicam 15 mg Oral tablet - take 1 tablet by ORAL route once daily; 15 tablet. - Medication Reconciliation Form, Thank You Letter, Antibiotic Education, Prescription Opioid Use form. - Follow up: Emergency Department; When: As needed; Reason: Worsening of condition. Follow up: Private Physician; When: 2 - 3 days; Reason: Recheck today's complaints, Continuance of care, Re-evaluation by your physician. - Problem is new. - Symptoms have improved. Signatures: Dispatcher [employer] EDTX Saurav Blount MD MD cha Marinas, Patrick, CODING QUALITY ANALYST CODING QUALITY ANALYST pm1 Buzz Obando RN RN jd3 Corrections: (The following items were deleted from the chart) 12/31 18:19 18:07 12/31/2020 18:07 Discharged to Home. Impression: Unspecified sprain of left jd3 shoulder joint. Condition is Stable. Forms are Medication Reconciliation Form, Thank You Letter, Antibiotic Education, Prescription Opioid Use. Follow up: Emergency Department; When: As needed; Reason: Worsening of condition. Follow up: Private Physician; When: 2 - 3 days; Reason: Recheck today's complaints, Continuance of care, Re-evaluation by your physician. Problem is new. Symptoms have improved. pm1
[2020-12-31 18:26] VITALS: TEMP 97.5; O2SAT 99
[2020-12-31 18:28] VITALS: BP 130/75
--- NOTE | 2020-12-31 18:34 | RAD REPORT ---
EXAM DESCRIPTION: RAD - Shoulder Left 2 View - 12/31/2020 5:31 pm CLINICAL HISTORY: Left shoulder pain FINDINGS: No fracture or dislocation is seen. 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
== END 2020-12-31 18:19 | disposition home or self-care (01) ==
LOC: ER 16:44
DX: S43.402A Unspecified sprain of left shoulder joint, initial encounter (principal); Z88.0 Allergy status to penicillin; Z88.1 Allergy status to other antibiotic agents; Z88.2 Allergy status to sulfonamides; Z88.5 Allergy status to narcotic agent; Z91.018 Allergy to other foods; Z91.048 Other nonmedicinal substance allergy status
CPT/HCPCS: 99284

== ENCOUNTER 2021-01-26 18:59 | Emergency (ER) | payer OTHER ==
--- OUTSIDE RECORDS SUMMARY | 2021-01-26 19:02 | XMS REPORT | Continuity of Care Document ---
:1970 Author Organization [facility] t Address [address] [place] [address] Care Team Providers Name Role Phone Taye [...] ID 2020-04-24 2020-04-24 Office AYESHA Bernal [id number] 08:15:37 08:49:56 Visit Norberto Ward [id number] [place] [id number] [place] [phone] [facility] 092 Building Results This patient has no known results.
[2021-01-26] MEDS ORDERED: HYDROCODONE/APAP 7.5/325 MG TAB ONE (19:56)
--- NOTE | 2021-01-26 19:58 | RAD REPORT ---
EXAM DESCRIPTION: RAD - Shoulder Left 2 View - 01/26/2021 7:42 pm CLINICAL HISTORY: Left shoulder pain FINDINGS: No fracture or dislocation is seen.
--- NOTE | 2021-01-26 20:09 | EDPHYS ---
Physician Documentation [facility] Name: Chente Minaya Age: 50 yrs Sex: Male : 1970 Arrival Date: 01/26/2021 Time: 19:03 Bed 14 Private MD: ED Physician Romeo Saleem HPI: 01/26 19:18 This 50 yrs old Male presents to ER via Ambulatory with complaints of mh7 Shoulder Injury, Head Injury-Adult. 19:18 Details of fall: The patient fell from an upright position, while walking, and struck a mh7 concrete surface. Onset: The symptoms/episode began/occurred today, at 15:30. Associated injuries: The patient sustained injury to the head, pain, left shoulder, decreased range of motion, painful injury. Severity of symptoms: At their worst the symptoms were moderate, earlier today, in the emergency department the symptoms have improved, moderately. States that he tripped and fell over trailer hitch today and his left shoulder hit the ground. He also hit the left side of his head but denies any LOC, neck pain, nausea, vomiting, dizziness, numbness/tingling, or weakness. Denies any other injuries or symptoms. He took Aleve right after fall.. Historical: - Allergies: 19:07 Bactrim; jd3 19:07 mushroom; jd3 19:07 PENICILLINS; jd3 19:07 Sulfa (Sulfonamide Antibiotics); jd3 19:07 surgical steel; jd3 19:07 tramadol; jd3 19:07 Tylenol-Codeine #3; jd3 19:07 Tylenol-Codeine #4; jd3 - PMHx: 19:07 Depression; Diabetes - NIDDM; food bolus; GERD; hiatal hernia; Migraines; neuropathy; jd3 - PSHx: 19:07 GI sx; Appendectomy; jd3 - Immunization history:: Adult Immunizations up to date. - Social history:: Smoking status: Patient denies any tobacco usage or history of. ROS: 19:18 Constitutional: Negative for fever, chills, and weight loss, Eyes: Negative for injury, mh7 pain, redness, and discharge, ENT: Negative for injury, pain, and discharge, Neck: Negative for injury, pain, and swelling, Cardiovascular: Negative for chest pain, palpitations, and edema, Respiratory: Negative for shortness of breath, cough, wheezing, and pleuritic chest pain, Abdomen/GI: Negative for abdominal pain, nausea, vomiting, diarrhea, and constipation, Back: Negative for injury and pain, : Negative for injury, bleeding, discharge, and swelling, Skin: Negative for injury, rash, and discoloration, Neuro: Negative for headache, weakness, numbness, tingling, and seizure, Psych: Negative for depression, anxiety, suicide ideation, homicidal ideation, and hallucinations, Allergy/Immunology: Negative for hives, rash, and allergies, Endocrine: Negative for neck swelling, polydipsia, polyuria, polyphagia, and marked weight changes, Hematologic/Lymphatic: Negative for swollen nodes, abnormal bleeding, and unusual bruising. Exam: 19:18 Constitutional: This is a well developed, well nourished patient who is awake, alert, mh7 and in no acute distress. 19:18 Eyes: Pupils equal round and reactive to light, extra-ocular motions intact. Lids and lashes normal. Conjunctiva and sclera are non-icteric and not injected. Cornea within normal limits. Periorbital areas with no swelling, redness, or edema. ENT: Nares patent. No nasal discharge, no septal abnormalities noted. Tympanic membranes are normal and external auditory canals are clear. Oropharynx with no redness, swelling, or masses, exudates, or evidence of obstruction, uvula midline. Mucous membranes moist. 19:18 Neck: Trachea midline, no thyromegaly or masses palpated, and no cervical lymphadenopathy. Supple, full range of motion without nuchal rigidity, or vertebral point tenderness. No Meningismus. Chest/axilla: Normal chest wall appearance and motion. Nontender with no deformity. No lesions are appreciated. Cardiovascular: Regular rate and rhythm with a normal S1 and S2. No gallops, murmurs, or rubs. Normal PMI, no JVD. No pulse deficits. Respiratory: Lungs have equal breath sounds bilaterally, clear to auscultation and percussion. No rales, rhonchi or wheezes noted. No increased work of breathing, no retractions or nasal flaring. Abdomen/GI: Soft, non-tender, with normal bowel sounds. No distension or tympany. No guarding or rebound. No evidence of tenderness throughout. Back: No spinal tenderness. No costovertebral tenderness. Full range of motion. Skin: Warm, dry with normal turgor. Normal color with no rashes, no lesions, and no evidence of cellulitis. 19:18 Neuro: Awake and alert, GCS 15, oriented to person, place, time, and situation. Cranial nerves II-XII grossly intact. Motor strength 5/5 in all extremities. Sensory grossly intact. Cerebellar exam normal. Normal gait. Psych: Awake, alert, with orientation to person, place and time. Behavior, mood, and affect are within normal limits. 19:18 Head/face: Exam is negative for obvious evidence of injury or deformity, abrasion(s), barker signs, contusion, deformity, ecchymosis, erythema, hematoma, laceration(s), raccoon eyes, rash, swelling, Noted is tenderness, that is mild, of the left frontal area. 19:18 ENT: TM's: hemotympanum, is not appreciated, bilaterally. 19:18 ENT: External ear(s): are unremarkable, Ear canal(s): are normal, clear, Nose: is normal, Mouth: is normal, Posterior pharynx: is normal, airway is patent. 19:18 Musculoskeletal/extremity: Extremities: noted in the left shoulder: decreased ROM, pain, tenderness, ROM: limited active range of motion due to pain, in the left shoulder, limited passive range of motion due to pain, in the left shoulder, Circulation is intact in all extremities. Pulses: are normal with no appreciated deficits, Perfusion: the patient is normally perfused throughout, Perfusion: the extremity is normally perfused throughout, Compartment Syndrome exam of affected extremity: is normal. no numbness, no tingling, no sensation deficit, no palor, no weak pulses, Joints: the left shoulder displays limited range of motion, painful range of motion, tenderness, Weight bearing: able to fully bear weight, without difficulty, Tendon exam: specific tendon testing normal through active and passive range of motion Vital Signs: 19:07 BP 130 / 86; Pulse 84; Resp 17 S; Temp 97.3(TE); Pulse Ox 99% on R/A; Weight 129.27 kg jd3 (R); Height 6 ft. 2 in. (187.96 cm) (R); Pain 7/10; 19:37 BP 116 / 88; Pulse 90; Resp 16; Temp 98.7; Pulse Ox 100% ; Pain 6/10; cr4 19:07 Body Mass Index 36.59 (129.27 kg, 187.96 cm) jd3 MDM: 20:05 Differential diagnosis: abrasion, closed head injury, contusion, fracture. Data [facility] reviewed: vital signs, nurses notes, old medical records, radiologic studies, plain films. Data interpreted: Pulse oximetry: on room air is 100 %. Interpretation: normal. Counseling: I had a detailed discussion with the patient and/or guardian regarding: the historical points, exam findings, and any diagnostic results supporting the discharge/admit diagnosis, radiology results, the need for outpatient follow up, a orthopedic surgeon, to return to the emergency department if symptoms worsen or persist or if there are any questions or concerns that arise at home. Response to treatment: the patient's symptoms have markedly improved after treatment. 20:08 Patient medically screened. [facility] 20:13 Special discussion: Based on the patient's history, exam and DX evaluation, there is no [facility] indication for emergent intervention or inpatient [place]. It is understood by the patient/guardian that if the SXs persist or worsen they need to return immediately for re-evaluation. 01/26 19:17 Order name: Shoulder Left (2 View) XRAY; Complete Time: 20:01 7 01/26 20:08 Order name: Sling; Complete Time: 20:41 7 Administered Medications: 19:41 Drug: [place] (HYDROcodone-acetaminophen) (7.5 mg-325 mg) 1 tabs Route: PO; cr4 20:41 Follow up: Response: No adverse reaction cr4 Disposition: 01/26/21 20:08 Discharged to Home. Impression: Contusion, Left Shoulder, Fall-Mechanical, Scalp Contusion. - Condition is Stable. - Discharge Instructions: Shoulder Pain, Kqov-ab-Jnej, Contusion, Jwmy-vb-Dnnc, Fall Prevention in the Home, Ypcr-vw-Ohjh, Facial or Scalp Contusion, Mvus-in-Sohh. - Prescriptions for Ibuprofen 800 mg Oral Tablet - take 1 tablet by ORAL route every 8 hours As needed take with food; 15 tablet. - Medication Reconciliation Form, Thank You Letter, Antibiotic Education, Prescription Opioid Use form. - Follow up: Private Physician; When: 1 - 2 days; Reason: Worsening of condition, Recheck today's complaints, Continuance of care, Re-evaluation by your physician. Follow up: Chente Pérez MD; When: 2 - 3 days; Reason: Worsening of condition, Recheck today's complaints. - Problem is new. - Symptoms have improved. Signatures: Dispatcher [employer] EDMS Yancy Poe, RN RN cr4 Buzz Obando RN RN jd3 Romeo Saleem MD MD mh7 Corrections: (The following items were deleted from the chart) 20:42 20:08 01/26/2021 20:08 Discharged to Home. Impression: Contusion, Left Shoulder; cr4 Fall-Mechanical; Scalp Contusion. Condition is Stable. Forms are Medication Reconciliation Form, Thank You Letter, Antibiotic Education, Prescription Opioid Use. Follow up: Private Physician; When: 1 - 2 days; Reason: Worsening of condition, Recheck today's complaints, Continuance of care, Re-evaluation by your physician. Follow up: Dr. Chente Pérez; When: 2 - 3 days; Reason: Worsening of condition, Recheck today's complaints. Problem is new. Symptoms have improved. mh7
--- NOTE | 2021-01-26 20:09 | ER ---
Nurse's Notes [facility] Name: Chente Minaya Age: 50 yrs Sex: Male : 1970 Arrival Date: 01/26/2021 Time: 19:03 Bed 14 Private MD: Diagnosis: Contusion, Left Shoulder;Fall-Mechanical;Scalp Contusion Presentation: 01/26 19:05 Chief complaint: Patient states: "I have injured my left should and today I tripped jpernell over my truck hitch and re hurt it and hit my head.". Coronavirus screen: At this time, the client does not indicate any symptoms associated with coronavirus-19. Ebola Screen: Patient negative for fever greater than or equal to 101.5 degrees Fahrenheit, and additional compatible Ebola Virus Disease symptoms. Initial Sepsis Screen: Does the patient meet any 2 criteria? No. Patient's initial sepsis screen is negative. Does the patient have a suspected source of infection? No. Patient's initial sepsis screen is negative. Risk Assessment: Do you want to hurt yourself or someone else? Patient reports no desire to harm self or others. Onset of symptoms was January 26, 2021. 19:05 Method Of Arrival: Ambulatory jd3 19:05 Acuity: GILDARDO 3 jd3 Triage Assessment: 19:10 Injury Description: Head injury sustained to left frontal area tail of truck fell o cr4 left shoulder. Historical: - Allergies: 19:07 Bactrim; jd3 19:07 mushroom; jd3 19:07 PENICILLINS; jd3 19:07 Sulfa (Sulfonamide Antibiotics); jd3 19:07 surgical steel; jd3 19:07 tramadol; jd3 19:07 Tylenol-Codeine #3; jd3 19:07 Tylenol-Codeine #4; jd3 - PMHx: 19:07 Depression; Diabetes - NIDDM; food bolus; GERD; hiatal hernia; Migraines; neuropathy; jd3 - PSHx: 19:07 GI sx; Appendectomy; jd3 - Immunization history:: Adult Immunizations up to date. - Social history:: Smoking status: Patient denies any tobacco usage or history of. Screenin:30 Abuse screen: Denies threats or abuse. Nutritional screening: No deficits noted. cr4 Tuberculosis screening: No symptoms or risk factors identified. Fall Risk None identified. Assessment: 19:29 General: Appears in no apparent distress. well groomed, Behavior is calm, cooperative, cr4 appropriate for age. Pain: Complains of pain in left shoulder and left frontal area Pain does not radiate. Pain currently is 6 out of 10 on a pain scale. Quality of pain is described as aching, Is continuous. Neuro: Reports headache in left occipital area, Denies blurred vision dizziness, numbness photophobia. Cardiovascular: Heart tones S1 S2 Capillary refill < 3 seconds Patient's skin is warm and dry. Respiratory: Airway is patent Breath sounds are clear bilaterally. GI: Reports nausea, Patient currently denies vomiting. : Denies burning with urination, pain urinary frequency. EENT: No signs and/or symptoms were reported regarding the EENT system. Derm: No deficits noted. Musculoskeletal: Capillary refill < 3 seconds, Range of motion: intact in left shoulder Tenderness present in left shoulder. Vital Signs: 19:07 BP 130 / 86; Pulse 84; Resp 17 S; Temp 97.3(TE); Pulse Ox 99% on R/A; Weight 129.27 kg jd3 (R); Height 6 ft. 2 in. (187.96 cm) (R); Pain 7/10; 19:37 BP 116 / 88; Pulse 90; Resp 16; Temp 98.7; Pulse Ox 100% ; Pain 6/10; cr4 19:07 Body Mass Index 36.59 (129.27 kg, 187.96 cm) jd3 ED Course: 19:03 Patient arrived in ED. es 19:06 Triage completed. jd3 19:07 Arm band placed on. jd3 19:08 Romeo Saleem MD is Attending Physician. mh7 19:28 Yancy Poe, CORA is Primary Nurse. cr4 19:30 Patient has correct armband on for positive identification. Side rails up X 1. Pulse ox cr4 on. NIBP on. 19:30 No provider procedures requiring assistance completed. cr4 19:42 Shoulder Left (2 View) XRAY In Process Unspecified. EDMS 20:07 Chente Pérez MD is Referral Physician. mh7 20:30 Sling applied to left arm. cr4 20:53 Patient did not have IV access during this emergency room visit. cr4 Administered Medications: 19:41 Drug: [place] (HYDROcodone-acetaminophen) (7.5 mg-325 mg) 1 tabs Route: PO; cr4 20:41 Follow up: Response: No adverse reaction cr4 Outcome: 20:08 Discharge ordered by . nora 20:42 Patient left the ED. cr4 20:53 Discharged to home ambulatory, with family. cr4 20:53 Condition: good 20:53 Discharge instructions given to patient, Instructed on discharge instructions, follow up and referral plans. medication usage, Demonstrated understanding of instructions, follow-up care, medications, Prescriptions given X 1. Signatures: Dispatcher [employer] EDRenuka Fu Claudia RN RN cr4 Buzz Obando RN RN Romeo Calvillo MD MD mh7
[2021-01-26 20:55] VITALS: BP 116/88; TEMP 98.7; O2SAT 100
== END 2021-01-26 20:42 | disposition home or self-care (01) ==
LOC: ER 18:59
DX: S40.012A Contusion of left shoulder, initial encounter (principal); S00.03XA Contusion of scalp, initial encounter; F32.9 Major depressive disorder, single episode, unspecified; E11.40 Type 2 diabetes mellitus with diabetic neuropathy, unspecified; K21.9 Gastro-esophageal reflux disease without esophagitis; K44.9 Diaphragmatic hernia without obstruction or gangrene; W01.198A Fall on same level from slipping, tripping and stumbling with subsequent striking against other object, initial encounter
CPT/HCPCS: 99284

== ENCOUNTER 2021-01-29 20:39 | Emergency (ER) | payer OTHER ==
--- OUTSIDE RECORDS SUMMARY | 2021-01-29 20:42 | XMS REPORT | Continuity of Care Document ---
:1970 Author Organization [facility] t Address [address] [place] [address] Care Team Providers Name Role Phone Taye [...] ID 2020-04-24 2020-04-24 Office AYESHA Bernal [id number] 08:15:37 08:49:56 Visit Norberto Ward [id number] [place] [id number] [place] [phone] [facility] [address] Building Results This patient has no known results.
[2021-01-29] MEDS ORDERED: GLUCAGON 1 MG/VIAL ONE ×2 (21:24→22:10)
[2021-01-29] MEDS ORDERED: NIFEdipine 10 MG CAP ONE (22:26)
[2021-01-29 22:31] LABS: Absolute Lymphocytes (CBC) 1.5 K/uL (0.7-4.9); Basophils % 0.4 % (0-1.3); Hematocrit 42.4 % (39.6-49.0); Lymphocytes % 15.9 % (15.3-44.8); MPV 9.4 fL (7.6-11.3); RBC Red Blood Cell Count 5.35 M/uL (4.33-5.43)
[2021-01-29 23:00] LABS: Potassium 4.2 mmol/L (3.5-5.1)
--- NOTE | 2021-01-29 23:20 | ER ---
Nurse's Notes [facility] Name: Chente Minaya Age: 50 yrs Sex: Male : 1970 Arrival Date: 01/29/2021 Time: 20:42 Bed 10 Private MD: Diagnosis: Foreign body in esophagus-Resolved Presentation: 01/29 20:51 Chief complaint: Patient states: food stuck in my esophagus happened around 1830H rr5 tonight, I have a hiatal hernia. denies Difficulty of breathing. Coronavirus screen: Client denies travel out of the [place] in the last 14 days. At this time, the client does not indicate any symptoms associated with coronavirus-19. Ebola Screen: Patient negative for fever greater than or equal to 101.5 degrees Fahrenheit, and additional compatible Ebola Virus Disease symptoms Patient denies exposure to infectious person. Patient denies travel to an Ebola-affected area in the 21 days before illness onset. Initial Sepsis Screen: Does the patient meet any 2 criteria? No. Patient's initial sepsis screen is negative. Does the patient have a suspected source of infection? No. Patient's initial sepsis screen is negative. Risk Assessment: Do you want to hurt yourself or someone else? Patient reports no desire to harm self or others. Onset of symptoms was January 29, 2021. 20:51 Method Of Arrival: Ambulatory rr5 20:51 Acuity: GILDARDO 3 rr5 Historical: - Allergies: 20:58 Bactrim; rr5 20:58 mushroom; rr5 20:58 PENICILLINS; rr5 20:58 Sulfa (Sulfonamide Antibiotics); rr5 20:58 surgical steel; rr5 20:58 tramadol; rr5 20:58 Tylenol-Codeine #3; rr5 20:58 Tylenol-Codeine #4; rr5 - Home Meds: 20:58 Cinnamon 500 mg Oral cap [Active]; meloxicam oral oral [Active]; rr5 - PMHx: 20:58 Depression; Diabetes - NIDDM; food bolus; GERD; hiatal hernia; Migraines; neuropathy; rr5 - PSHx: 20:58 endoscopy; Appendectomy; rr5 - Immunization history:: Adult Immunizations up to date. - Social history:: Smoking status: unknown Patient uses alcohol, occasionally. Patient/guardian denies using street drugs. Screenin:59 Abuse screen: Denies threats or abuse. Denies injuries from another. Nutritional rr5 screening: No deficits noted. Tuberculosis screening: No symptoms or risk factors identified. Fall Risk None identified. Total Prieto Fall Scale indicates No Risk (0-24 pts). Assessment: 21:00 General: Appears in no apparent distress. uncomfortable, Behavior is calm, cooperative, rr5 appropriate for age. Pain: Complains of pain in neck Pain currently is 5 out of 10 on a pain scale. Quality of pain is described as aching, Pain began suddenly, Is intermittent. Neuro: Level of Consciousness is awake, alert, obeys commands, Oriented to person, place, time. Cardiovascular: Capillary refill < 3 seconds Patient's skin is warm and dry. Respiratory: Airway is patent Respiratory effort is even, unlabored, Respiratory pattern is regular, symmetrical. GI: Abdomen is round non-distended, Reports od stuck in my esophagus. : No signs and/or symptoms were reported regarding the genitourinary system. EENT: No signs and/or symptoms were reported regarding the EENT system. Derm: Skin is intact, is healthy with good turgor, Skin temperature is warm. Musculoskeletal: Capillary refill < 3 seconds. 21:55 Reassessment: Patient appears in no apparent distress at this time. Patient is alert, rr5 oriented x 3, equal unlabored respirations, skin warm/dry/pink. Patient states symptoms have not improved. 22:10 Reassessment: Patient appears in no apparent distress at this time. Patient is alert, rr5 oriented x 3, equal unlabored respirations, skin warm/dry/pink. provider aware with order made and carried out Patient states symptoms have not improved. 23:18 Reassessment: Patient appears in no apparent distress at this time. Patient is alert, rr5 oriented x 3, equal unlabored respirations, skin warm/dry/pink. able to drink glass of water and verbalized by the patient it went down Patient states feeling better. Patient states symptoms have improved. 23:29 Reassessment: Patient appears in no apparent distress at this time. Patient is alert, rr5 oriented x 3, equal unlabored respirations, skin warm/dry/pink. discharge instruction given and explained without complaints made. Vital Signs: 20:51 BP 154 / 90; Pulse 92; Resp 19; Temp 98; Pulse Ox 95% ; Weight 129.27 kg; Height 6 ft. rr5 2 in. (187.96 cm); Pain 5/10; 22:23 BP 135 / 89; Pulse 90; Resp 17; Pulse Ox 98% ; rr5 23:29 BP 126 / 85; Pulse 85; Resp 16; Pulse Ox 98% ; rr5 20:51 Body Mass Index 36.59 (129.27 kg, 187.96 cm) rr5 ED Course: 20:40 Inserted saline lock: 20 gauge in left antecubital area, using aseptic technique. kg 20:42 Patient arrived in ED. es 20:50 Jordan Sheihk, CORA is Primary Nurse. rr5 20:55 Triage completed. rr5 20:58 Dedrick Atkinson NP is PHCP. pm1 20:58 Thee Vann MD is Attending Physician. pm1 20:59 Arm band placed on right wrist. rr5 21:00 Patient has correct armband on for positive identification. Bed in low position. Call rr5 light in reach. 22:20 Chest Single View XRAY In Process Unspecified. EDMS 23:19 Davey Can MD is Referral Physician. pm1 23:30 No provider procedures requiring assistance completed. IV discontinued, intact, rr5 bleeding controlled, No redness/swelling at site. Pressure dressing applied. Administered Medications: 21:11 Drug: Glucagon 1 mg Route: IVP; Site: left antecubital; rr5 21:55 Follow up: Response: No adverse reaction; No change in condition rr5 21:58 Drug: Glucagon 1 mg Route: IVP; Site: left antecubital; rr5 22:00 Follow up: Response: No adverse reaction; No change in condition rr5 22:10 Drug: Procardia (NIFEdipine) 10 mg {Note: SL given as verbal order .} Route: PO; rr5 22:58 Follow up: Response: No adverse reaction; No change in condition rr5 Outcome: 23:19 Discharge ordered by . pm1 23:30 Discharged to home ambulatory. rr5 23:30 Condition: stable 23:30 Discharge instructions given to patient, Instructed on discharge instructions, follow up and referral plans. Demonstrated understanding of instructions, follow-up care. 23:31 Patient left the ED. rr5 Signatures: Dispatcher [employer] EDMS Garza Renuka es Marinas, Dedrick, PIN SETTER PIN SETTER pm1 Jordan Sheikh, RN RN rr5 [place] kg
--- NOTE | 2021-01-29 23:20 | EDPHYS ---
Physician Documentation [facility] Name: Chente Minaya Age: 50 yrs Sex: Male : 1970 Arrival Date: 01/29/2021 Time: 20:42 Bed 10 Private MD: ED Physician Thee Vann HPI: 01/29 21:02 This 50 yrs old Male presents to ER via Ambulatory with complaints of Food pm1 stuck in esophagus. 21:02 Patient was eating sausage and steak. Patient with sensation of food bolus. History of pm1 multiple food bolus issues in the past. Onset: The symptoms/episode began/occurred today, at 18:30. Severity of symptoms: in the emergency department the symptoms are unchanged. The patient has experienced similar episodes in the past, multiple times. The patient has not recently seen a physician. Historical: - Allergies: 20:58 Bactrim; rr5 20:58 mushroom; rr5 20:58 PENICILLINS; rr5 20:58 Sulfa (Sulfonamide Antibiotics); rr5 20:58 surgical steel; rr5 20:58 tramadol; rr5 20:58 Tylenol-Codeine #3; rr5 20:58 Tylenol-Codeine #4; rr5 - Home Meds: 20:58 Cinnamon 500 mg Oral cap [Active]; meloxicam oral oral [Active]; rr5 - PMHx: 20:58 Depression; Diabetes - NIDDM; food bolus; GERD; hiatal hernia; Migraines; neuropathy; rr5 - PSHx: 20:58 endoscopy; Appendectomy; rr5 - Immunization history:: Adult Immunizations up to date. - Social history:: Smoking status: unknown Patient uses alcohol, occasionally. Patient/guardian denies using street drugs. ROS: 21:02 Constitutional: Negative for fever, chills, and weight loss, Cardiovascular: Negative pm1 for chest pain, palpitations, and edema, Respiratory: Negative for shortness of breath, cough, wheezing, and pleuritic chest pain. 21:02 ENT: Negative for injury, pain, and discharge, Neck: Negative for injury, pain, and swelling, MS/Extremity: Negative for injury and deformity, Skin: Negative for injury, rash, and discoloration, Neuro: Negative for headache, weakness, numbness, tingling, and seizure. 21:02 Abdomen/GI: Positive for vomiting, when he attempts to drink fluids, Negative for abdominal pain. 21:02 All other systems are negative. Exam: 21:02 Constitutional: This is a well developed, well nourished patient who is awake, alert, pm1 and in no acute distress. Head/Face: Normocephalic, atraumatic. 21:02 Chest/axilla: Normal chest wall appearance and motion. Nontender with no deformity. No lesions are appreciated. 21:02 Skin: Warm, dry with normal turgor. Normal color with no rashes, no lesions, and no evidence of cellulitis. MS/ Extremity: Pulses equal, no cyanosis. Neurovascular intact. Full, normal range of motion. 21:02 ENT: Mouth: Lips: normal, Oral mucosa: normal, pink and intact, moist, Posterior pharynx: is normal, airway is patent. 21:02 Cardiovascular: Exam negative for acute changes, Rate: normal, Rhythm: regular, Pulses: no pulse deficits are appreciated. 21:02 Respiratory: Exam negative for acute changes, respiratory distress, shortness of breath, Breath sounds: are clear throughout. 21:02 Abdomen/GI: Inspection: obese Palpation: abdomen is soft and non-tender. 21:02 Neuro: Exam negative for acute changes, Orientation: is normal, Mentation: is normal, Motor: is normal, moves all fours. Vital Signs: 20:51 BP 154 / 90; Pulse 92; Resp 19; Temp 98; Pulse Ox 95% ; Weight 129.27 kg; Height 6 ft. rr5 2 in. (187.96 cm); Pain 5/10; 22:23 BP 135 / 89; Pulse 90; Resp 17; Pulse Ox 98% ; rr5 23:29 BP 126 / 85; Pulse 85; Resp 16; Pulse Ox 98% ; rr5 20:51 Body Mass Index 36.59 (129.27 kg, 187.96 cm) rr5 MDM: 21:05 Patient medically screened. pm1 21:55 Data reviewed: vital signs. Data interpreted: Pulse oximetry: on room air is 95 %. pm1 Interpretation: normal. 23:16 Counseling: I had a detailed discussion with the patient and/or guardian regarding: the pm1 historical points, exam findings, and any diagnostic results supporting the discharge/admit diagnosis, the need for outpatient follow up, a fitting room associate, to return to the emergency department if symptoms worsen or persist or if there are any questions or concerns that arise at home. 23:43 ED course: No answer, Left voice mail for Dr. Can regarding patient's ability to pm1 pass food bolus. Patient was able to drink water without any difficulty and requested to be discharged home. 01/29 21:56 Order name: CBC with Diff pm1 01/29 21:56 Order name: BMP; Complete Time: 23:20 pm1 01/29 21:56 Order name: Chest Single View XRAY pm1 01/29 21:57 Order name: CBC with Automated Diff; Complete Time: 23:20 EDMS 01/29 21:02 Order name: IV Saline Lock; Complete Time: 21:10 pm1 Administered Medications: 21:11 Drug: Glucagon 1 mg Route: IVP; Site: left antecubital; rr5 21:55 Follow up: Response: No adverse reaction; No change in condition rr5 21:58 Drug: Glucagon 1 mg Route: IVP; Site: left antecubital; rr5 22:00 Follow up: Response: No adverse reaction; No change in condition rr5 22:10 Drug: Procardia (NIFEdipine) 10 mg {Note: SL given as verbal order .} Route: PO; rr5 22:58 Follow up: Response: No adverse reaction; No change in condition rr5 Disposition: 23:34 Co-signature as Attending Physician, Thee Vann MD. [email or web address] Disposition: 01/29/21 23:19 Discharged to Home. Impression: Foreign body in esophagus - Resolved. - Condition is Stable. - Medication Reconciliation Form, Thank You Letter, Antibiotic Education, Prescription Opioid Use, Work release form form. - Follow up: Davey Can MD; When: 2 - 3 days; Reason: Recheck today's complaints, Continuance of care, Re-evaluation by your physician. - Problem is new. - Symptoms are resolved. Signatures: Dispatcher [employer] Thee Alston MD MD pkl Dedrick Atkinson, BEAUTY COUNSELOR BEAUTY COUNSELOR pm1 Jordan Sheikh RN RN rr5 Corrections: (The following items were deleted from the chart) 23:31 23:19 01/29/2021 23:19 Discharged to Home. Impression: Foreign body in esophagus - rr5 Resolved. Condition is Stable. Forms are Medication Reconciliation Form, Thank You Letter, Antibiotic Education, Prescription Opioid Use. Follow up: Davey Can; When: 2 - 3 days; Reason: Recheck today's complaints, Continuance of care, Re-evaluation by your physician. Problem is new. Symptoms are resolved. pm1
[2021-01-29 23:35] VITALS: TEMP 98
[2021-01-29 23:36] VITALS: O2SAT 98
[2021-01-29 23:38] VITALS: BP 126/85
--- NOTE | 2021-01-30 08:14 | RAD REPORT ---
EXAM DESCRIPTION: RAD - Chest Single View - 01/29/2021 10:20 pm CLINICAL HISTORY: food bolus, chest pain COMPARISON: Portable August 2018 TECHNIQUE: AP portable chest image was obtained 01/29/2021 10:20 pm . FINDINGS: Lung volumes are low. No focal lung parenchymal process identifiable. Trachea is midline. Small hiatal hernia is present midline chest stable comparison. Heart and vasculature are normal. No measurable pleural effusion and no pneumothorax. No acute bony abnormality seen. No acute aortic find ings suspected. IMPRESSION: No acute cardiopulmonary process. No significant change from comparison study.
== END 2021-01-29 23:31 | disposition home or self-care (01) ==
LOC: ER 20:39
DX: T18.128A Food in esophagus causing other injury, initial encounter (principal); F32.9 Major depressive disorder, single episode, unspecified; E11.40 Type 2 diabetes mellitus with diabetic neuropathy, unspecified; K21.9 Gastro-esophageal reflux disease without esophagitis; K44.9 Diaphragmatic hernia without obstruction or gangrene
CPT/HCPCS: 85025; 80048; 36415; 71045; 96374; 99283; J1610 ×2

== ENCOUNTER 2021-02-18 20:16 | Emergency (ER) | payer OTHER ==
--- OUTSIDE RECORDS SUMMARY | 2021-02-18 20:19 | XMS REPORT | Continuity of Care Document ---
:1970 Author Organization [facility] t Address [address] [place] [address] Care Team Providers Name Role Phone Taye [...] ID 2020-04-24 2020-04-24 Office AYESHA Bernal [id number] 08:15:37 08:49:56 Visit Norberto Ward [id number] [place] [id number] [place] [phone] [facility] [address] Results This patient has no known results.
[2021-02-18 21:35] LABS: Absolute Lymphocytes (CBC) 1.5 K/uL (0.7-4.9); Basophils % 0.6 % (0-1.3); Hematocrit 44.5 % (39.6-49.0); Lymphocytes % 22.2 % (15.3-44.8); MPV 9.5 fL (7.6-11.3); RBC Red Blood Cell Count 5.57 M/uL (4.33-5.43)
[2021-02-18 21:42] LABS: Protime INR 1.03
[2021-02-18] MEDS ORDERED: MECLIZINE HCL 12.5 MG TAB ONE ×2 (21:43→21:47)
[2021-02-18 21:53] LABS: ALT/SGPT 49 U/L (12-78); AST/SGOT 18 U/L (15-37); Albumin 3.7 g/dL (3.4-5.0); Alkaline Phosphatase 78 U/L (45-117); BUN Blood Urea Nitrogen 9 mg/dL (7-18); Bicarbonate 31 mmol/L (21-32); Bilirubin Direct 0.2 mg/dL (0-0.2); Bilirubin Total 0.5 mg/dL (0.2-1.0); Glucose Level 400 mg/dL (74-106); Magnesium 2.1 mg/dL (1.8-2.4); NT PRO-BNP 28 pg/mL (<125); Potassium 3.9 mmol/L (3.5-5.1); Protein, Total 7.6 g/dL (6.4-8.2); Sodium Level 136 mmol/L (136-145); Troponin (Emerg Dept Use Only) < 0.02 ng/mL (0.0-0.045)
[2021-02-18] MEDS ORDERED: DIAZEPAM 10 MG/2 ML INJ SYRINGE ONE (23:15)
--- NOTE | 2021-02-19 00:02 | ER ---
Nurse's Notes [facility] Name: Chente Minaya Age: 50 yrs Sex: Male : 1970 Arrival Date: 02/18/2021 Time: 20:19 Bed 8 Private MD: Diagnosis: Vertigo Presentation: 02/18 20:56 Chief complaint: Patient states: approx 2 to 3 hours ago pt started experiencing "a bb helicopter sound" in his left ear causing him to be dizzy these episodes last a minute or two then go away but come back in approx 20 minutes. Pt has not had these symptoms in the past. Coronavirus screen: At this time, the client does not indicate any symptoms associated with coronavirus-19. Ebola Screen: No symptoms or risks identified at this time. Initial Sepsis Screen: Does the patient meet any 2 criteria? No. Patient's initial sepsis screen is negative. Does the patient have a suspected source of infection? No. Patient's initial sepsis screen is negative. Risk Assessment: Do you want to hurt yourself or someone else? Patient reports no desire to harm self or others. Onset of symptoms was February 18, 2021. 20:56 Method Of Arrival: Ambulatory bb 20:56 Acuity: GILDARDO 3 bb Historical: - Allergies: 20:58 Bactrim; bb 20:58 mushroom; bb 20:58 PENICILLINS; bb 20:58 Sulfa (Sulfonamide Antibiotics); bb 20:58 surgical steel; bb 20:58 tramadol; bb 20:58 Tylenol-Codeine #3; bb 20:58 Tylenol-Codeine #4; bb - Home Meds: 20:58 None [Active]; bb - PMHx: 20:58 Depression; Diabetes - NIDDM; food bolus; GERD; hiatal hernia; Migraines; neuropathy; bb - PSHx: 20:58 endoscopy; Appendectomy; bb - Immunization history:: Adult Immunizations up to date. - Social history:: Smoking status: Patient denies any tobacco usage or history of. Patient uses alcohol, occasionally. Patient/guardian denies using street drugs. Screenin:00 Abuse screen: Denies threats or abuse. Nutritional screening: No deficits noted. jb4 Tuberculosis screening: No symptoms or risk factors identified. Fall Risk None identified. Assessment: 21:00 General: Appears in no apparent distress. comfortable, Behavior is calm, cooperative, jb4 appropriate for age. Pain: Denies pain. Neuro: Level of Consciousness is awake, alert, obeys commands, Oriented to person, place, time, situation, Reports dizziness, a helicopter sound in the right ear. Cardiovascular: Patient's skin is warm and dry. Respiratory: Airway is patent Respiratory effort is even, unlabored, Respiratory pattern is regular, symmetrical. GI: No signs and/or symptoms were reported involving the gastrointestinal system. : No signs and/or symptoms were reported regarding the genitourinary system. EENT: No signs and/or symptoms were reported regarding the EENT system. Derm: Skin is intact, Skin is pink, warm \\T\\ dry. Musculoskeletal: Circulation, motion, and sensation intact. Range of motion:. 21:59 Reassessment: Patient appears in no apparent distress at this time. Patient and/or jb4 family updated on plan of care and expected duration. Pain level reassessed. Patient is alert, oriented x 3, equal unlabored respirations, skin warm/dry/pink. 22:59 Reassessment: Patient appears in no apparent distress at this time. Patient and/or jb4 family updated on plan of care and expected duration. Pain level reassessed. Patient is alert, oriented x 3, equal unlabored respirations, skin warm/dry/pink. 02/19 00:29 Reassessment: Patient is alert, oriented x 3, equal unlabored respirations, skin bb warm/dry/pink. pt verbalized understanding of and agrees to plan of care discharge instructions given pt ambulated with steady gait to exit accompanied by family. Vital Signs: 02/18 20:56 BP 124 / 82; Pulse 89; Resp 16 S; Temp 98.6(O); Pulse Ox 97% on R/A; Weight 129.27 kg bb (R); Height 6 ft. 2 in. (187.96 cm) (R); Pain 0/10; 21:30 BP 124 / 84; Pulse 108; Resp 16; Pulse Ox 95% on R/A; jb4 22:30 BP 113 / 78; Pulse 77; Resp 16; Pulse Ox 96% on R/A; jb4 02/19 00:29 BP 119 / 93; Pulse 95; Resp 16; Pulse Ox 94% on R/A; oe 02/18 20:56 Body Mass Index 36.59 (129.27 kg, 187.96 cm) bb ED Course: 02/18 20:19 Patient arrived in ED. es 20:50 Robert Villalobos PA is PHCP. [facility] 20:50 Brandon Kumar MD is Attending Physician. [facility] 20:57 Triage completed. bb 20:58 Arm band placed on Patient placed in an exam room, on a stretcher, on pulse oximetry. bb 20:59 Yonatan Burroughs, RN is Primary Nurse. [facility] 21:17 XRAY Chest (1 view) In Process Unspecified. EDMS 21:20 Initial lab(s) drawn, by id, sent to lab. Inserted saline lock: 18 gauge in left [facility] antecubital area, using aseptic technique. Blood collected. 22:27 CT Head Brain wo Cont In Process Unspecified. EDMS 22:27 CT Neck Angio In Process Unspecified. EDMS 22:27 CT Head Angio In Process Unspecified. [facility] 02/19 00:01 Mary Doyle MD is Referral Physician. [facility] 00:30 IV discontinued, intact, bleeding controlled, No redness/swelling at site. Pressure bb dressing applied. 00:30 No provider procedures requiring assistance completed. bb 00:31 Patient has correct armband on for positive identification. bb Administered Medications: 02/18 21:30 Drug: Meclizine 50 mg Route: PO; 4 22:59 Follow up: Response: No adverse reaction [facility] 22:59 Drug: Valium (diazepam) 5 mg Route: IVP; Site: left antecubital; jb4 23:30 Follow up: Response: No adverse reaction; Marked relief of symptoms [facility] Outcome: 02/19 00:02 Discharge ordered by . [facility] 00:31 Discharged to home ambulatory, with family. bb 00:31 Condition: stable 00:31 Discharge instructions given to patient, Instructed on discharge instructions, follow up and referral plans. no driving heavy equipment, medication usage, Demonstrated understanding of instructions, follow-up care, medications, Prescriptions given X 1. 00:31 Patient left the ED. bb Signatures: Dispatcher [employer] [facility] Robert Villalobos PA PA [facility] Renuka Garza Brenda, RN RN Yonatan Drake, RN RN [facility] Huertas, Dashawn oe
--- NOTE | 2021-02-19 00:03 | EDPHYS ---
Physician Documentation [facility] Name: Chente Minaya Age: 50 yrs Sex: Male : 1970 Arrival Date: 02/18/2021 Time: 20:19 Bed 8 Private MD: ED Physician Brandon Kumar HPI: 02/18 20:54 This 50 yrs old Male presents to ER via Ambulatory with complaints of jmm Dizziness, Nausea, Ringing of ear. 20:54 The patient presents with dizziness. Onset: The symptoms/episode began/occurred jmm acutely, 2 hour(s) ago. Modifying factors: The symptoms are alleviated by nothing, the symptoms are aggravated by nothing. Associated signs and symptoms: Pertinent negatives: abdominal pain, ataxia. The patient has not experienced similar symptoms in the past. This is a 50 year old male with a history of depression, dm, gerd that presents to the ED with complaints of acute onset dizziness beginning 2 hours ago with ringing to his left ear. Denies vomiting, weakness, fever. . Historical: - Allergies: 20:58 Bactrim; bb 20:58 mushroom; bb 20:58 PENICILLINS; bb 20:58 Sulfa (Sulfonamide Antibiotics); bb 20:58 surgical steel; bb 20:58 tramadol; bb 20:58 Tylenol-Codeine #3; bb 20:58 Tylenol-Codeine #4; bb - Home Meds: 20:58 None [Active]; bb - PMHx: 20:58 Depression; Diabetes - NIDDM; food bolus; GERD; hiatal hernia; Migraines; neuropathy; bb - PSHx: 20:58 endoscopy; Appendectomy; bb - Immunization history:: Adult Immunizations up to date. - Social history:: Smoking status: Patient denies any tobacco usage or history of. Patient uses alcohol, occasionally. Patient/guardian denies using street drugs. ROS: 20:54 Constitutional: Negative for fever, chills, and weight loss, Cardiovascular: Negative jmm for chest pain, palpitations, and edema, Respiratory: Negative for shortness of breath, cough, wheezing, and pleuritic chest pain. 20:54 Neuro: Positive for dizziness. 20:54 All other systems are negative. Exam: 20:54 Constitutional: This is a well developed, well nourished patient who is awake, alert, jmm and in no acute distress. Head/Face: atraumatic. 20:54 Neck: Trachea midline, Supple Chest/axilla: Normal chest wall appearance and motion. Cardiovascular: Regular rate and rhythm. No edema appreciated Respiratory: Normal respirations, no respiratory distress appreciated Abdomen/GI: Non distended, soft Back: Normal ROM Skin: General appearance color normal MS/ Extremity: Moves all extremities, no obvious deformities appreciated, no edema noted to the lower extremities 20:54 Eyes: Extraocular movements: intact throughout, Nystagmus: nystagmus with fast component noted, bilaterally. 20:54 ENT: TM's: are normal. 20:54 Neuro: Orientation: is normal, Mentation: is normal, Memory: is normal, Cerebellar function: normal finger to nose testing, heel to wong testing is normal. 20:54 Neuro: Motor: is normal, Gait: is steady. 20:54 Psych: Behavior/mood is pleasant, cooperative. Vital Signs: 20:56 BP 124 / 82; Pulse 89; Resp 16 S; Temp 98.6(O); Pulse Ox 97% on R/A; Weight 129.27 kg bb (R); Height 6 ft. 2 in. (187.96 cm) (R); Pain 0/10; 21:30 BP 124 / 84; Pulse 108; Resp 16; Pulse Ox 95% on R/A; jb4 22:30 BP 113 / 78; Pulse 77; Resp 16; Pulse Ox 96% on R/A; jb4 /07 00:29 BP 119 / 93; Pulse 95; Resp 16; Pulse Ox 94% on R/A; oe 02/18 20:56 Body Mass Index 36.59 (129.27 kg, 187.96 cm) bb MDM: 02/18 20:54 Patient medically screened. [facility] 23:59 Data reviewed: vital signs, nurses notes. Counseling: I had a detailed discussion with [facility] the patient and/or guardian regarding: the historical points, exam findings, and any diagnostic results supporting the discharge/admit diagnosis, lab results, radiology results, the need for outpatient follow up, to return to the emergency department if symptoms worsen or persist or if there are any questions or concerns that arise at home. ED course: I do not suspect central cause of vertigo. Symptoms resolved with valium. LOOPER OPERATOR score is 260. Patient given precautions. Advised to follow up with ent for further evaluation. Discussed thyroid findings with the patient. Patient given strict return precautions. patient understood and agrees with the plan of care. . 02/18 20:55 Order name: Basic Metabolic Panel; Complete Time: 21:54 [facility] 02/18 20:55 Order name: CBC with Diff; Complete Time: 21:52 [facility] 02/18 20:55 Order name: LFT's; Complete Time: 21:54 [facility] 02/18 20:55 Order name: Magnesium; Complete Time: 21:54 [facility] 02/18 20:55 Order name: NT PRO-BNP; Complete Time: 21:54 [facility] 02/18 20:55 Order name: PT-INR; Complete Time: 21:52 [facility] 02/18 20:55 Order name: Troponin (emerg Dept Use Only); Complete Time: 21:54 [facility] 02/18 20:55 Order name: XRAY Chest (1 view) [facility] 02/18 20:55 Order name: EKG; Complete Time: 20:56 [facility] 02/18 20:55 Order name: CT Head Brain wo Cont [facility] 02/18 20:55 Order name: CT Neck Angio [facility] 02/18 20:55 Order name: CT Head Angio [facility] 02/18 20:55 Order name: Cardiac monitoring; Complete Time: 21:12 [facility] 02/18 20:55 Order name: EKG - Nurse/Tech; Complete Time: 21:11 [facility] 02/18 20:55 Order name: IV Saline Lock; Complete Time: 21:30 [facility] 02/18 20:55 Order name: Labs collected and sent; Complete Time: 21:30 [facility] 02/18 20:55 Order name: O2 Per Protocol; Complete Time: 21:12 [facility] 02/18 20:55 Order name: O2 Sat Monitoring; Complete Time: 21:11 [facility] Administered Medications: 21:30 Drug: Meclizine 50 mg Route: PO; jb4 22:59 Follow up: Response: No adverse reaction jb4 22:59 Drug: Valium (diazepam) 5 mg Route: IVP; Site: left antecubital; jb4 23:30 Follow up: Response: No adverse reaction; Marked relief of symptoms jb4 Disposition: 02/19/21 00:02 Discharged to Home. Impression: Vertigo. - Condition is Stable. - Discharge Instructions: Benign Positional Vertigo. - Prescriptions for Valium 5 mg Oral Tablet - take 1 tablet by ORAL route every 8 hours As needed; 20 tablet. - Medication Reconciliation Form, Thank You Letter, Antibiotic Education, Prescription Opioid Use form. - Work release form (02/19/21 00:35). mw2 - Follow up: Mary Doyle MD; When: 1 - 2 days; Reason: Recheck today's complaints, Continuance of care, Re-evaluation by your physician. Signatures: Dispatcher [employer] EDMS Robert Villalobos PA PA jmm Ballard, Brenda, RN RN Yonatan Drake RN RN jb4 John Feng mw2 Corrections: (The following items were deleted from the chart) 02/19 00:31 00:02 02/19/2021 00:02 Discharged to Home. Impression: Vertigo. Condition is Stable. bb Forms are Medication Reconciliation Form, Thank You Letter, Antibiotic Education, Prescription Opioid Use. Follow up: Mary Doyle; When: 1 - 2 days; Reason: Recheck today's complaints, Continuance of care, Re-evaluation by your physician. aletha
[2021-02-19 01:34] VITALS: TEMP 98.6
[2021-02-19 01:54] VITALS: BP 119/93; O2SAT 94
--- NOTE | 2021-02-19 07:36 | RAD REPORT ---
EXAM DESCRIPTION: Manoj Single View02/18/2021 9:17 pm CLINICAL HISTORY: Dizziness COMPARISON: January 2021 FINDINGS: The lungs appear clear of acute infiltrate. The heart is normal size. Right hemidiaphragm remains elevated
--- NOTE | 2021-02-19 11:01 | RAD REPORT ---
EXAM DESCRIPTION: CT - Head Brain Wo Cont - 02/19/2021 9:19 am CLINICAL HISTORY: DIZZINESS. TECHNIQUE: Axial, coronal, and sagittal images through the brain were performed in the absence of in travenous contrast. This exam was performed according to our departmental dose-optimization program w hich includes use of Automated Exposure Control, adjustment of the mA and/or kV according to patient size and/or use of iterative reconstruction technique. COMPARISON: None. FINDINGS: Mild global atrophy, greater than expected for patient age. There is no intra-axial or ext ra-axial bleed seen. There is no mass or mass effect. The ventricles are normal in size shape and con figuration. The orbital contents appear unremarkable. The visualized paranasal sinuses and mastoid air cells are patent. No acute fracture is identified. IMPRESSION: No acute intracranial abnormality identified. Electronically signed by: Eva Jane MD 02/18/2021 10:53 PM CDT Due to temporary technical issues with the PACS/Fluency reporting system, reports are being signed by the in house radiologist without review as a courtesy to ensure prompt reporting. The interpreting r adiologist is fully responsible for the content of the report.
--- NOTE | 2021-02-19 11:02 | RAD REPORT ---
EXAM DESCRIPTION: Omer Angio02/19/2021 9:19 am CLINICAL HISTORY: 50-year-old male with dizziness and hearing whirling wheezes. COMPARISON: None. TECHNIQUE: CT angiography of the head and neck following dynamic bolus of intravenous contrast. MIP reformatted reconstructions were provided. This exam was performed according to our departmental dose optimization program which includes use of automated exposure control, adjustment of the mA and/or k V according to patient size and/or use of iterative reconstruction technique. FINDINGS: CTA neck: Patent flow opacification of the aortic arch origin right brachiocephalic, left common carotid, and l eft subclavian arteries. The bilateral vertebral artery origins are normal. Patent flow opacification through the bilateral common carotid arteries, carotid bifurcations, cervic al internal/external carotid, and vertebral arteries. CTA brain: Examination findings are limited by venous contamination. Patent flow opacification through anterior circulation (bilateral petrous/cavernous/supraclinoid inte rnal carotid arteries, anterior and middle cerebral arteries), posterior circulation (vertebral-basil ar, posterior-inferior cerebellar, anterior-inferior cerebellar, superior cerebellar, and posterior c erebral arteries), and distal intracranial vasculature. Patent flow opacification through an incomplete [id number] with a patent anterior communicating artery and bilateral absent posterior communicating arteries. Normal superficial and deep intracranial venous drainage. No evidence of occlusive thrombus, dissection, or vascular malformation. Additional incidental findings include diffusely enlarged thyroid gland. The RIGHT thyroid gland manda ures 5 cm in AP dimension. Suspected enlarged enhancing and/or high density thyroid nodule measures 3 .7 cm within the RIGHT thyroid lobe, versus artifact (series 802, image 84). . There is limited visua lization through the thyroid gland secondary to streak artifact. Best practice guidelines:3.7 cm inci dental right thyroid nodule. Recommend thyroid US. Reference: J Am Sirena Radiol. 2015 Oct;12(2): 143-50 Craniocaudal extent of the thyroid gland measures 9.4 cm in craniocaudal dimension on the RIGHT. Hete rogeneous appearance bilaterally. Mild multilevel degenerative change of the cervical spine. Posterior osseous spurring and disk osteop hyte complex resulting in effacement of the ventral thecal sac and mild to moderate central spinal ca nal narrowing of the cervical spine C5-6 and C6-7 vertebral levels. IMPRESSION: 1. Patent flow related enhancement of the intracranial circulation. 2. Patent enhancement of the cervical vasculature without significant stenosis by NASCET criteria. 3. Diffusely enlarged thyroid gland with suspected enlarged enhancing and/or high density thyroid n odule measures 3.7 cm within the RIGHT thyroid lobe versus artifact. Overall enlarged thyroid gland m easuring up to 9.4 cm in craniocaudal dimension with heterogeneous appearance. Findings may reflect m ultinodular goiter. Electronically signed by: Geena Caballero MD 02/18/2021 11:07 PM CDT Due to temporary technical issues with the PACS/Fluency reporting system, reports are being signed by the in house radiologist without review as a courtesy to ensure prompt reporting. The interpreting r adiologist is fully responsible for the content of the report.
--- NOTE | 2021-02-19 11:05 | RAD REPORT ---
EXAM DESCRIPTION: CTHead angio02/19/2021 9:19 am CLINICAL HISTORY: 50-year-old male with dizziness and hearing whirling wheezes. COMPARISON: None. TECHNIQUE: CT angiography of the head and neck following dynamic bolus of intravenous contrast. MIP reformatted reconstructions were provided. This exam was performed according to our departmental dose optimization program which includes use of automated exposure control, adjustment of the mA and/or k V according to patient size and/or use of iterative reconstruction technique. FINDINGS: CTA neck: Patent flow opacification of the aortic arch origin right brachiocephalic, left common carotid, and l eft subclavian arteries. The bilateral vertebral artery origins are normal. Patent flow opacification through the bilateral common carotid arteries, carotid bifurcations, cervic al internal/external carotid, and vertebral arteries. CTA brain: Examination findings are limited by venous contamination. Patent flow opacification through anterior circulation (bilateral petrous/cavernous/supraclinoid inte rnal carotid arteries, anterior and middle cerebral arteries), posterior circulation (vertebral-basil ar, posterior-inferior cerebellar, anterior-inferior cerebellar, superior cerebellar, and posterior c erebral arteries), and distal intracranial vasculature. Patent flow opacification through an incomplete [id number] with a patent anterior communicating artery and bilateral absent posterior communicating arteries. Normal superficial and deep intracranial venous drainage. No evidence of occlusive thrombus, dissection, or vascular malformation. Additional incidental findings include diffusely enlarged thyroid gland. The RIGHT thyroid gland manda ures 5 cm in AP dimension. Suspected enlarged enhancing and/or high density thyroid nodule measures 3 .7 cm within the RIGHT thyroid lobe, versus artifact (series 802, image 84). . There is limited visua lization through the thyroid gland secondary to streak artifact. Best practice guidelines:3.7 cm inci dental right thyroid nodule. Recommend thyroid US. Reference: J Am Sirena Radiol. 2015 Oct;12(2): 143-50 Craniocaudal extent of the thyroid gland measures 9.4 cm in craniocaudal dimension on the RIGHT. Hete rogeneous appearance bilaterally. Mild multilevel degenerative change of the cervical spine. Posterior osseous spurring and disk osteop hyte complex resulting in effacement of the ventral thecal sac and mild to moderate central spinal ca nal narrowing of the cervical spine C5-6 and C6-7 vertebral levels. IMPRESSION: 1. Patent flow related enhancement of the intracranial circulation. 2. Patent enhancement of the cervical vasculature without significant stenosis by NASCET criteria. 3. Diffusely enlarged thyroid gland with suspected enlarged enhancing and/or high density thyroid n odule measures 3.7 cm within the RIGHT thyroid lobe versus artifact. Overall enlarged thyroid gland m easuring up to 9.4 cm in craniocaudal dimension with heterogeneous appearance. Findings may reflect m ultinodular goiter. Electronically signed by: Geena Caballero MD 02/18/2021 11:05 PM CDT Due to temporary technical issues with the PACS/Fluency reporting system, reports are being signed by the in house radiologist without review as a courtesy to ensure prompt reporting. The interpreting r adiologist is fully responsible for the content of the report.
== END 2021-02-19 00:31 | disposition home or self-care (01) ==
LOC: ER 20:16
DX: R42 Dizziness and giddiness (principal); E11.40 Type 2 diabetes mellitus with diabetic neuropathy, unspecified; F32.9 Major depressive disorder, single episode, unspecified; K21.9 Gastro-esophageal reflux disease without esophagitis; K44.9 Diaphragmatic hernia without obstruction or gangrene
CPT/HCPCS: 93005; 85025; 80048; 36415; 83735; 85610; 80076; 84484; 83880; 70450; 70496; 70498; 71045; 96374; 99284; Q9967; J3360

== ENCOUNTER 2021-04-03 19:48 | Emergency (ER) | payer OTHER ==
--- OUTSIDE RECORDS SUMMARY | 2021-04-03 19:50 | XMS REPORT | Continuity of Care Document ---
:1970 Author Organization [facility] t Address [address] [place] [address] Care Team Providers Name Role Phone Taye [...] ID 2020-04-24 2020-04-24 Office AYESHA Bernal [id number] 08:15:37 08:49:56 Visit Norberto Ward [id number] Yulan [id number] Poli [phone] [facility], later [facility] [address] Results This patient has no known results.
[2021-04-03 21:03] LABS: Absolute Lymphocytes (CBC) 1.3 K/uL (0.7-4.9); Basophils % 0.7 % (0-1.3); Lymphocytes % 17.3 % (15.3-44.8); MPV 9.6 fL (7.6-11.3); RBC Red Blood Cell Count 5.15 M/uL (4.33-5.43)
--- NOTE | 2021-04-03 21:10 | RAD REPORT ---
EXAM DESCRIPTION: RAD - Foot Right 3 View - 04/03/2021 8:56 pm CLINICAL HISTORY: Right foot swelling FINDINGS: No fracture or dislocation is seen A very large plantar calcaneal spur
[2021-04-03 21:30] LABS: C-Reactive Protein 9.22 mg/L (<3.00); Potassium 4.6 mmol/L (3.5-5.1)
--- NOTE | 2021-04-03 22:13 | ER ---
Nurse's Notes [facility] Name: Chente Minaya Age: 50 yrs Sex: Male : 1970 Arrival Date: 04/03/2021 Time: 19:51 Bed 14 Private MD: Diagnosis: Open wound of toe without damage to nail-right great toe;Cellulitis of right toe-right great toe Presentation: 04/03 20:03 Chief complaint: Patient states: he has a hole on the bottom of his right toe which he bb noticed yesterday it started swelling on Friday pt is diabetic. Coronavirus screen: At this time, the client does not indicate any symptoms associated with coronavirus-19. Ebola Screen: No symptoms or risks identified at this time. Initial Sepsis Screen: Does the patient meet any 2 criteria? No. Patient's initial sepsis screen is negative. Does the patient have a suspected source of infection? Yes: Skin breakdown/wound. Risk Assessment: Do you want to hurt yourself or someone else? Patient reports no desire to harm self or others. Onset of symptoms was April 01, 2021. 20:03 Method Of Arrival: Ambulatory bb 20:03 Acuity: GILDARDO 3 bb Historical: - Allergies: 20:06 Bactrim; bb 20:06 mushroom; bb 20:06 PENICILLINS; bb 20:06 Sulfa (Sulfonamide Antibiotics); bb 20:06 surgical steel; bb 20:06 tramadol; bb 20:06 Tylenol-Codeine #3; bb 20:06 Tylenol-Codeine #4; bb - Home Meds: 20:06 Levemir FlexTouch U-100 Insulin 30 units subcutaneous twice a day [Active]; glipizide bb 10 mg Oral tab 1 tab once daily [Active]; Vit D3 [Active]; scopolamine base 1 mg over 3 days transdermal pt3d 1 patch [Active]; - PMHx: 20:06 Depression; Diabetes - NIDDM; food bolus; GERD; hiatal hernia; Migraines; neuropathy; bb - PSHx: 20:06 Appendectomy; multiple upper GI procedures; bb - Immunization history:: Adult Immunizations up to date, Client reports having NOT received the Covid vaccine. - Social history:: Smoking status: Patient denies any tobacco usage or history of. Patient uses alcohol, occasionally. Screenin:59 Abuse screen: Denies threats or abuse. Denies injuries from another. Nutritional ad5 screening: No deficits noted. Tuberculosis screening: No symptoms or risk factors identified. Fall Risk None identified. Assessment: 20:56 General: Appears in no apparent distress. Behavior is calm, cooperative, appropriate ad5 for age. Pain: Complains of pain in R great toe. Neuro: No deficits noted. Level of Consciousness is awake, alert, obeys commands, Oriented to person, place, time, situation, Appropriate for age Moves all extremities. Cardiovascular: No deficits noted. Capillary refill < 3 seconds Patient's skin is warm and dry. Respiratory: No deficits noted. Airway is patent Respiratory effort is even, unlabored, Respiratory pattern is regular, symmetrical. GI: No deficits noted. No signs and/or symptoms were reported involving the gastrointestinal system. Derm: Skin is pink, warm \T\ dry. Wound noted R great toe Other: wound noted to distal aspect of R great toe, pt denies known injury; recent dx DM, states area painful; clear d/c noted to area. 22:03 Reassessment: Patient appears in no apparent distress at this time. No changes from ad5 previously documented assessment. Patient is alert, oriented x 3, equal unlabored respirations, skin warm/dry/pink. Vital Signs: 20:03 BP 130 / 94; Pulse 100; Resp 16 S; Temp 98.4(TE); Pulse Ox 99% on R/A; Weight 129.27 kg bb (R); Height 6 ft. 2 in. (187.96 cm) (R); Pain 8/10; 22:03 BP 136 / 93; Pulse 103; Resp 18 S; Pulse Ox 97% on R/A; ad5 20:03 Body Mass Index 36.59 (129.27 kg, 187.96 cm) bb ED Course: 19:51 Patient arrived in ED. es 20:06 Triage completed. bb 20:06 Arm band placed on right wrist. Patient placed in an exam room, on a stretcher, on bb pulse oximetry. 20:09 Saurav Burgess PA is PHCP. cp 20:09 Juan A Jarrell MD is Attending Physician. cp 20:15 Jacoby Earl is Primary Nurse. ad5 20:54 XRAY Foot RIGHT 3 View Sent. ad5 20:56 XRAY Foot RIGHT 3 View In Process Unspecified. EDMS 20:59 Patient has correct armband on for positive identification. Bed in low position. Call ad5 light in reach. Side rails up X 1. Pulse ox on. NIBP on. Door closed. Noise minimized. Head of bed elevated. 20:59 Initial lab(s) drawn, by me, sent to lab. Inserted saline lock: 20 gauge in left ad5 antecubital area, using aseptic technique. Blood collected. 21:31 Notified ED physician of a critical lab result(s). Glucose 404. ad5 22:11 Erik Benitez DPM is Referral Physician. cp 22:31 Wound care: to cellulitis located on R great toe was cleaned with soap and water, ad5 irrigated with normal saline, dressed with Kerlix, surgicel x 1, pt tolerated well. 22:32 No provider procedures requiring assistance completed. IV discontinued, intact, ad5 bleeding controlled, No redness/swelling at site. Pressure dressing applied. Administered Medications: 21:41 CANCELLED (Physician Discretion): fentaNYL (PF) 25 mcg IVP once; RASS on ADMIN: cp Combtv4, Very Agttd3, Agttd2, Rstlss1, AlertClm0, Drwsy-1, Lt Sdtn-2, Mod Sdtn-3, Dp Sdtn-4, UnArsble-5 22:00 Drug: fentaNYL (PF) 25 mcg {Note: RASS 0.} Route: IVP; Site: left antecubital; ad5 22:30 Follow up: Response: No adverse reaction; RASS: Alert and Calm (0) ad5 22:02 Drug: Clindamycin 900 mg Route: IVPB; Infused Over: 30 mins; Site: left antecubital; ad5 22:30 Follow up: IV Status: Completed infusion; IV Intake: 50ml ad5 22:02 Drug: LevaQUIN (levofloxacin) 750 mg Route: PO; ad5 22:30 Follow up: Response: No adverse reaction ad5 Intake: 22:30 IV: 50ml; Total: 50ml. ad5 Outcome: 22:12 Discharge ordered by MD. cp 22:32 Discharged to home ambulatory. ad5 22:32 Condition: stable 22:32 Discharge instructions given to patient, Instructed on discharge instructions, follow up and referral plans. medication usage, wound care, Demonstrated understanding of instructions, follow-up care, medications, wound care, Prescriptions given X 3. 22:32 Patient left the ED. ad5 Signatures: Dispatcher [employer] Renuka Chandra Brenda, RN RN Saurav Samaniego PA PA cp Davidson, Andrea ad5 Corrections: (The following items were deleted from the chart) 22:31 22:31 Wound care: to cellulitis located on R great toe was cleaned with soap and water, ad5 irrigated with normal saline, dressed with Kerlix, surgicel x 1, ad5
--- NOTE | 2021-04-03 22:13 | EDPHYS ---
Physician Documentation [facility] Name: Chente Minaya Age: 50 yrs Sex: Male : 1970 Arrival Date: 04/03/2021 Time: 19:51 Bed 14 Private MD: ED Physician Juan A Jarrell HPI: 04/03 20:30 This 50 yrs old Male presents to ER via Ambulatory with complaints of Foot cp swelling hole in toe. 20:30 The patient presents with pain, that is acute, swelling, tenderness, open wound. cp 20:30 The complaints affect the right great toe. Context: resulted from an unknown cause, the cp patient can fully bear weight. Onset: The symptoms/episode began/occurred 2 day(s) ago. Associated signs and symptoms: Pertinent negatives: calf tenderness, fever. Historical: - Allergies: 20:06 Bactrim; bb 20:06 mushroom; bb 20:06 PENICILLINS; bb 20:06 Sulfa (Sulfonamide Antibiotics); bb 20:06 surgical steel; bb 20:06 tramadol; bb 20:06 Tylenol-Codeine #3; bb 20:06 Tylenol-Codeine #4; bb - Home Meds: 20:06 Levemir FlexTouch U-100 Insulin 30 units subcutaneous twice a day [Active]; glipizide bb 10 mg Oral tab 1 tab once daily [Active]; Vit D3 [Active]; scopolamine base 1 mg over 3 days transdermal pt3d 1 patch [Active]; - PMHx: 20:06 Depression; Diabetes - NIDDM; food bolus; GERD; hiatal hernia; Migraines; neuropathy; bb - PSHx: 20:06 Appendectomy; multiple upper GI procedures; bb - Immunization history:: Adult Immunizations up to date, Client reports having NOT received the Covid vaccine. - Social history:: Smoking status: Patient denies any tobacco usage or history of. Patient uses alcohol, occasionally. ROS: 20:40 Constitutional: Negative for body aches, chills, fever, poor PO intake. cp 20:40 Cardiovascular: Negative for chest pain. 20:40 Respiratory: Negative for cough, shortness of breath, wheezing. 20:40 Abdomen/GI: Negative for abdominal pain, nausea, vomiting, and diarrhea. 20:40 MS/extremity: Negative for injury or acute deformity. 20:40 Skin: Positive for erythema, of the right great toe, open wound. 20:40 Neuro: Negative for altered mental status, headache, weakness. 20:40 All other systems are negative. Exam: 20:45 Constitutional: The patient appears in no acute distress, alert, awake, cp non-diaphoretic, non-toxic, well developed, well nourished, obese. 20:45 Head/Face: Normocephalic, atraumatic. cp 20:45 Eyes: Periorbital structures: appear normal, Conjunctiva: normal, no exudate, no injection, Sclera: no appreciated abnormality, Lids and lashes: appear normal, bilaterally. 20:45 ENT: External ear(s): are unremarkable, Nose: is normal, Posterior pharynx: Airway: no evidence of obstruction, patent. 20:45 Chest/axilla: Inspection: normal. 20:45 Cardiovascular: Rate: tachycardic, Rhythm: regular, Edema: is not appreciated, JVD: is not appreciated. 20:45 Respiratory: the patient does not display signs of respiratory distress, Respirations: normal, no use of accessory muscles, no retractions, labored breathing, is not present, Breath sounds: are clear throughout, no decreased breath sounds. 20:45 Skin: abscess, not appreciated, cellulitis, well demarcated, on the right great toe, noted small open wound plantar surface distal phalanx right great toe. 20:45 Neuro: Orientation: to person, place \T\ time. Mentation: is normal. 20:45 Musculoskeletal/extremity: Pulses: noted to be 2+ in the right dorsalis pedis artery. cp Vital Signs: 20:03 BP 130 / 94; Pulse 100; Resp 16 S; Temp 98.4(TE); Pulse Ox 99% on R/A; Weight 129.27 kg bb (R); Height 6 ft. 2 in. (187.96 cm) (R); Pain 8/10; 22:03 BP 136 / 93; Pulse 103; Resp 18 S; Pulse Ox 97% on R/A; ad5 20:03 Body Mass Index 36.59 (129.27 kg, 187.96 cm) bb MDM: 20:22 Patient medically screened. cp 21:00 Differential diagnosis: cellulitis, abscess, sepsis, osteomyelitis. cp 22:10 Data reviewed: vital signs, nurses notes, lab test result(s), radiologic studies, plain cp films, and as a result, I will discharge patient. 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 22:11 Response to treatment: the patient's symptoms have mildly improved after treatment, and cp as a result, I will discharge patient. 04/03 20:22 Order name: BMP; Complete Time: 21:40 cp 04/03 21:40 Interpretation: Normal except: GLUC 404; GFR 63; CA 8.4. cp 04/03 20:22 Order name: Wound Culture cp 04/03 20:22 Order name: CBC with Diff; Complete Time: 21:40 cp 04/03 21:06 Interpretation: Normal except: ABRAN% 76.2. cp 04/03 20:22 Order name: ESR; Complete Time: 21:40 cp 04/03 20:22 Order name: CRP; Complete Time: 21:40 cp 04/03 21:40 Interpretation: Abnormal: C-REACTIVE PROT 9.22. cp 04/03 20:22 Order name: XRAY Foot RIGHT 3 View; Complete Time: 21:15 cp 04/03 21:15 Interpretation: Report reviewed. 04/03 20:22 Order name: IV; Complete Time: 20:54 cp Administered Medications: 21:41 CANCELLED (Physician Discretion): fentaNYL (PF) 25 mcg IVP once; RASS on ADMIN: cp Combtv4, Very Agttd3, Agttd2, Rstlss1, AlertClm0, Drwsy-1, Lt Sdtn-2, Mod Sdtn-3, Dp Sdtn-4, UnArsble-5 22:00 Drug: fentaNYL (PF) 25 mcg {Note: RASS 0.} Route: IVP; Site: left antecubital; ad5 22:30 Follow up: Response: No adverse reaction; RASS: Alert and Calm (0) ad5 22:02 Drug: Clindamycin 900 mg Route: IVPB; Infused Over: 30 mins; Site: left antecubital; ad5 22:30 Follow up: IV Status: Completed infusion; IV Intake: 50ml ad5 22:02 Drug: LevaQUIN (levofloxacin) 750 mg Route: PO; ad5 22:30 Follow up: Response: No adverse reaction ad5 Disposition: 22:30 Chart complete. cp 04/04 02:54 Co-signature as Attending Physician, Juan A Jarrell MD I agree with the assessment and rn plan of care. Attestation: The patient's history, exam findings, diagnostics, and a summary of any interventions or procedures was reviewed in detail with Saurav OLEA. Disposition Summary: 04/03/21 22:12 Discharge Ordered Location: Home cp Problem: new cp Symptoms: have improved cp Condition: Stable cp Diagnosis - Open wound of toe without damage to nail - right great toe cp - Cellulitis of right toe - right great toe cp Followup: cp - With: Erik Benitez DPM - When: 2 - 3 days - Reason: Wound Recheck Discharge Instructions: - Discharge Summary Sheet cp - Cellulitis, Adult cp - Wound Care, Adult cp Forms: - Medication Reconciliation Form cp - Thank You Letter cp - Antibiotic Education cp - Prescription Opioid Use cp - Work release form ad5 Prescriptions: - Clindamycin HCl 300 mg Oral Capsule - take 1 capsule by ORAL route every 6 hours for 10 days; 40 capsule; Refills: 0, cp Product Selection Permitted - Tramadol 50 mg Oral Tablet - take 1 tablet by ORAL route every 8 hours as needed; 12 tablet; Refills: 0, cp Product Selection Permitted Signatures: Dispatcher [employer] Roya Scherer RN RN bb Nieto, Roman, MD MD rn Page, Corey, PA PA cp Jacoby Earl ad5 Corrections: (The following items were deleted from the chart) 04/03 21:40 21:40 Normal except: GLUC 404; GFR 63. cp cp 21:41 21:41 fentaNYL (PF) 25 mcg IVP once; RASS on ADMIN: Combtv4, Very Agttd3, Agttd2, cp Rstlss1, AlertClm0, Drwsy-1, Lt Sdtn-2, Mod Sdtn-3, Dp Sdtn-4, UnArsble-5 ordered. cp
[2021-04-03] MEDS ORDERED: levoFLOXacin 750 MG TAB ONE (22:14)
[2021-04-03] MEDS ORDERED: CLINDAMYCIN 900MG/D5W 900 MG/50 ML IVPB IV ONE (22:16)
[2021-04-03] MEDS ORDERED: FENTANYL CITR 100 MCG/2 ML ONE (22:16)
[2021-04-03 22:49] VITALS: TEMP 98.4
[2021-04-03 22:50] VITALS: BP 136/93; O2SAT 97
== END 2021-04-03 22:32 | disposition home or self-care (01) ==
LOC: ER 19:48
DX: L03.031 Cellulitis of right toe (principal); E11.9 Type 2 diabetes mellitus without complications; Z79.4 Long term (current) use of insulin; Z88.0 Allergy status to penicillin; Z88.1 Allergy status to other antibiotic agents; Z88.2 Allergy status to sulfonamides; Z88.5 Allergy status to narcotic agent; Z91.018 Allergy to other foods; Z91.048 Other nonmedicinal substance allergy status
CPT/HCPCS: 87070; 85025; 80048; 36415; 87205; 85652; 86140; 73630; J3010; 96365; 96375; 99284

== ENCOUNTER 2021-07-19 19:27 | Emergency (ER) | payer OTHER ==
[2021-07-19] MEDS ORDERED: KETOROLAC 30 MG/ML INJ ONE (20:07)
[2021-07-19] MEDS ORDERED: METOCLOPRAMIDE 10 MG/2mL INJ ONE (20:07)
[2021-07-19] MEDS ORDERED: DIPHENHYDRAMINE 50 MG/ML VIAL ONE (20:07)
[2021-07-19] MEDS ORDERED: NA CHLORIDE 0.9% 1,000 ML ONE (20:07)
[2021-07-19 20:32] LABS: Absolute Lymphocytes (CBC) 1.8 K/uL (0.7-4.9); Albumin 3.9 g/dL (3.4-5.0); Basophils % 0.4 % (0-1.3); Bilirubin Total 0.6 mg/dL (0.2-1.0); Hematocrit 49.5 % (39.6-49.0); Lymphocytes % 24.4 % (15.3-44.8); MPV 9.5 fL (7.6-11.3); Potassium 4.2 mmol/L (3.5-5.1); Protein, Total 7.6 g/dL (6.4-8.2)
[2021-07-19] MEDS ORDERED: HYDROMORPHONE HCL 1 MG/ML INJ ONE (22:00)
--- NOTE | 2021-07-19 22:12 | EDPHYS ---
Physician Documentation [facility] Name: Chente Minaya Age: 50 yrs Sex: Male : 1970 Arrival Date: 07/19/2021 Time: 19:31 Bed 8 Private MD: BRYAN Physician Saurav Blount HPI: 07/19 21:27 This 50 yrs old Male presents to ER via Ambulatory with complaints of jermaine Headache, Nausea. 21:27 The patient complains of pain to the top of head, forehead, left frontal area, left jermaine side of the back of head, left occipital area, left base of the skull, right frontal area, right side of the back of head, right occipital area and right base of the skull. The patient describes the headache as aching, constant. Onset: The symptoms/episode began/occurred today. Associated signs and symptoms: Pertinent positives: nausea. Severity of symptoms: At its worst the pain was moderate, in the emergency department the pain is unchanged. Headache History: The patient has had previous headaches and this one is similar to previous episodes. The patient has experienced similar episodes in the past, multiple times. Historical: - Allergies: 19:42 Bactrim; df1 19:42 mushroom; df1 19:42 PENICILLINS; df1 19:42 Sulfa (Sulfonamide Antibiotics); df1 19:42 surgical steel; df1 19:42 tramadol; df1 19:42 Tylenol-Codeine #3; df1 19:42 Tylenol-Codeine #4; df1 - Home Meds: 19:42 Levemir FlexTouch U-100 Insulin 30 units subcutaneous twice a day [Active]; betablocker df1 [Active]; unknown BP med [Active]; - PMHx: 19:42 Depression; Diabetes - NIDDM; food bolus; GERD; hiatal hernia; Migraines; neuropathy; df1 - PSHx: 19:42 multiple upper GI procedures; Appendectomy; df1 - Immunization history:: Adult Immunizations not up to date, Client reports having NOT received the Covid vaccine. - Social history:: Smoking status: Patient/guardian denies using tobacco. - Family history:: not pertinent. ROS: 21:29 Constitutional: Negative for fever, chills, and weight loss, Eyes: Negative for injury, jermaine pain, redness, and discharge, ENT: Negative for injury, pain, and discharge, Neck: Negative for injury, pain, and swelling, Cardiovascular: Negative for chest pain, palpitations, and edema, Respiratory: Negative for shortness of breath, cough, wheezing, and pleuritic chest pain, Abdomen/GI: Negative for abdominal pain, nausea, vomiting, diarrhea, and constipation, Back: Negative for injury and pain, : Negative for injury, bleeding, discharge, and swelling, MS/Extremity: Negative for injury and deformity, Skin: Negative for injury, rash, and discoloration, Psych: Negative for depression, anxiety, suicide ideation, homicidal ideation, and hallucinations, Allergy/Immunology: Negative for hives, rash, and allergies, Endocrine: Negative for neck swelling, polydipsia, polyuria, polyphagia, and marked weight changes, Hematologic/Lymphatic: Negative for swollen nodes, abnormal bleeding, and unusual bruising. 21:29 Neuro: Positive for headache. Exam: 21:29 Constitutional: This is a well developed, well nourished patient who is awake, alert, jermaine and in no acute distress. Head/Face: Normocephalic, atraumatic. Eyes: Pupils equal round and reactive to light, extra-ocular motions intact. Lids and lashes normal. Conjunctiva and sclera are non-icteric and not injected. Cornea within normal limits. Periorbital areas with no swelling, redness, or edema. ENT: Nares patent. No nasal discharge, no septal abnormalities noted. Tympanic membranes are normal and external auditory canals are clear. Oropharynx with no redness, swelling, or masses, exudates, or evidence of obstruction, uvula midline. Mucous membranes moist. Neck: Trachea midline, no thyromegaly or masses palpated, and no cervical lymphadenopathy. Supple, full range of motion without nuchal rigidity, or vertebral point tenderness. No Meningismus. Chest/axilla: Normal chest wall appearance and motion. Nontender with no deformity. No lesions are appreciated. Cardiovascular: Regular rate and rhythm with a normal S1 and S2. No gallops, murmurs, or rubs. Normal PMI, no JVD. No pulse deficits. Respiratory: Lungs have equal breath sounds bilaterally, clear to auscultation and percussion. No rales, rhonchi or wheezes noted. No increased work of breathing, no retractions or nasal flaring. Abdomen/GI: Soft, non-tender, with normal bowel sounds. No distension or tympany. No guarding or rebound. No evidence of tenderness throughout. Back: No spinal tenderness. No costovertebral tenderness. Full range of motion. Skin: Warm, dry with normal turgor. Normal color with no rashes, no lesions, and no evidence of cellulitis. MS/ Extremity: Pulses equal, no cyanosis. Neurovascular intact. Full, normal range of motion. Neuro: Awake and alert, GCS 15, oriented to person, place, time, and situation. Cranial nerves II-XII grossly intact. Motor strength 5/5 in all extremities. Sensory grossly intact. Cerebellar exam normal. Normal gait. Psych: Awake, alert, with orientation to person, place and time. Behavior, mood, and affect are within normal limits. 21:29 Neck: ROM/movement: is normal, no acute changes, Meningeal signs: are not present, Kernig's sign is negative, Brudzinski's sign is negative. Vital Signs: 19:38 BP 159 / 95; Pulse 87; Resp 99; Temp 98.7; Pulse Ox 99% ; Weight 136.08 kg; Height 6 df1 ft. 2 in. (187.96 cm); Pain 10/10; 20:41 BP 144 / 88; Pulse 78; Resp 18; Pulse Ox 96% on R/A; bp 22:54 BP 114 / 74; Pulse 89; Resp 18; Pulse Ox 97% on R/A; lh3 19:38 Body Mass Index 38.52 (136.08 kg, 187.96 cm) df1 Carol Coma Score: 21:30 Eye Response: spontaneous(4). Verbal Response: oriented(5). Motor Response: obeys jermaine commands(6). Total: 15. MDM: 19:49 Patient medically screened. jermaine 21:30 Differential diagnosis: hyponatremia, migraine, temporal arteritis, tension headache, jermaine trigeminal neuralgia, vasomotor headache. Data reviewed: vital signs, nurses notes, lab test result(s), EKG, radiologic studies, CT scan, plain films. Data interpreted: air sampling and monitoring: rate is 78 beats/min, rhythm is regular, Pulse oximetry: on room air. Test interpretation: by ED physician or midlevel provider:. Counseling: I had a detailed discussion with the patient and/or guardian regarding: the historical points, exam findings, and any diagnostic results supporting the discharge/admit diagnosis, lab results, radiology results, the need for outpatient follow up, for definitive care, a family practitioner, a neurologist. 07/19 19:55 Order name: CBC with Diff [facility] 07/19 19:55 Order name: Comprehensive Metabolic Panel [facility] 07/19 19:55 Order name: SARS-COV-2 RT PCR (Document "Date of Onset" if Symptomatic); Complete Time: jermaine 21:28 07/19 19:56 Order name: CBC with Automated Diff; Complete Time: 21:28 EDMS 07/19 19:56 Order name: Comprehensive Metabolic Panel; Complete Time: 21:28 EDMS Administered Medications: 20:29 Drug: NS 0.9% 1000 ml Route: IV; Rate: 1 bolus; Site: left antecubital; bp 22:56 Follow up: Response: No adverse reaction; IV Status: Completed infusion lh3 20:29 Drug: Ketorolac 30 mg Route: IVP; Site: left antecubital; bp 22:56 Follow up: Response: No adverse reaction lh3 20:29 Drug: Reglan (metoCLOPramide) 10 mg Route: IVP; Site: left antecubital; bp 22:56 Follow up: Response: No adverse reaction lh3 20:29 Drug: Benadryl (diphenhydrAMINE) 50 mg Route: IVP; Site: left antecubital; bp 22:56 Follow up: Response: No adverse reaction 3 22:04 Drug: Dilaudid (HYDROmorphone) 1 mg Route: IVP; Site: left antecubital; lh3 22:56 Follow up: Response: No adverse reaction; Pain is decreased lh3 22:56 Not Given (Other Intervention Used): Zofran (Ondansetron) 4 mg IVP once; over 2 minutes lh3 22:56 Not Given (Other Intervention Used): Dilaudid (HYDROmorphone) 1 mg IM once; RASS on lh3 ADMIN: Combtv4, Very Agttd3, Agttd2, Rstlss1, AlertClm0, Drwsy-1, Lt Sdtn-2, Mod Sdtn-3, Dp Sdtn-4, UnArsble-5 Disposition Summary: 07/19/21 22:11 Discharge Ordered Location: Home [facility] Problem: new jermaine Symptoms: have improved jermaine Condition: Stable jermaine Diagnosis - Migraine with aura, intractable jermaine - Type 2 diabetes mellitus with hyperglycemia jermaine Followup: jermaine - With: Private Physician - When: 2 - 3 days - Reason: Recheck today's complaints, Continuance of care, Re-evaluation by your physician Followup: jermaine - With: - When: 2 - 3 days - Reason: Recheck today's complaints, Continuance of care, Re-evaluation by your physician Discharge Instructions: - Discharge Summary Sheet jermaine - Type 2 Diabetes Mellitus, Diagnosis, Adult jermaine - Migraine Headache jermaine - Hyperglycemia jermaine - Blood Glucose Monitoring, Adult jermaine - Migraine Headache, [id number] [facility] Forms: - Medication Reconciliation Form [facility] - Thank You Letter [facility] - Antibiotic Education [facility] - Prescription Opioid Use [facility] Prescriptions: - Esgic 50-325-40 mg Oral tablet - take 2 tablet by ORAL route every 4 hours as needed not to exceed 6 tablets per jermaine 24hrs; 15 tablet; Refills: 0, Product Selection Permitted - Zofran 4 mg Oral Tablet - take 1 tablet by ORAL route every 12 hours As needed; 20 tablet; Refills: 0, [facility] Product Selection Permitted Signatures: Dispatcher [employer] Saurav Sawyer MD MD cha Peltier, Brian, RN RN Luisa Tejeda RN RN 3 Candace White df1
--- NOTE | 2021-07-19 22:12 | ER ---
Nurse's Notes [facility] Name: Chente Minaya Age: 50 yrs Sex: Male : 1970 Arrival Date: 07/19/2021 Time: 19:31 Bed 8 Private MD: Diagnosis: Migraine with aura, intractable;Type 2 diabetes mellitus with hyperglycemia Presentation: 07/19 19:38 Chief complaint: Patient states: migraine with nausea. Coronavirus screen: Vaccine df1 status: Patient reports being unvaccinated. Client denies travel out of the [place] in the last 14 days. Ebola Screen: Patient negative for fever greater than or equal to 101.5 degrees Fahrenheit, and additional compatible Ebola Virus Disease symptoms Patient denies exposure to infectious person. Patient denies travel to an Ebola-affected area in the 21 days before illness onset. Initial Sepsis Screen: Does the patient meet any 2 criteria? No. Patient's initial sepsis screen is negative. Does the patient have a suspected source of infection? No. Patient's initial sepsis screen is negative. Risk Assessment: Do you want to hurt yourself or someone else? Patient reports no desire to harm self or others. Note Pt states left side migraine with nausea since yesterday at 1200. Pt took migraine med at home no relief. h/o migraines. denies double vision, blurry vision, gait disturbances. Onset of symptoms was July 18, 2021 at 12:00. 19:38 Method Of Arrival: Ambulatory df1 19:38 Acuity: GILDARDO 3 df1 Triage Assessment: 20:43 Headache History: The patient has had previous headaches and this one is similar to bp previous episodes. General: Appears in no apparent distress. General: Behavior is calm, cooperative, appropriate for age. Pain: Pain. 22:55 Pain: Also complains of. lh3 Historical: - Allergies: 19:42 Bactrim; df1 19:42 mushroom; df1 19:42 PENICILLINS; df1 19:42 Sulfa (Sulfonamide Antibiotics); df1 19:42 surgical steel; df1 19:42 tramadol; df1 19:42 Tylenol-Codeine #3; df1 19:42 Tylenol-Codeine #4; df1 - Home Meds: 19:42 Levemir FlexTouch U-100 Insulin 30 units subcutaneous twice a day [Active]; betablocker df1 [Active]; unknown BP med [Active]; - PMHx: 19:42 Depression; Diabetes - NIDDM; food bolus; GERD; hiatal hernia; Migraines; neuropathy; df1 - PSHx: 19:42 multiple upper GI procedures; Appendectomy; df1 - Immunization history:: Adult Immunizations not up to date, Client reports having NOT received the Covid vaccine. - Social history:: Smoking status: Patient/guardian denies using tobacco. - Family history:: not pertinent. Screenin:41 Abuse screen: Denies threats or abuse. Denies injuries from another. Nutritional bp screening: No deficits noted. Tuberculosis screening: No symptoms or risk factors identified. Fall Risk None identified. Assessment: 20:41 Pain: Complains of pain in left temporal Pain does not radiate. Neuro: No deficits bp noted. Vital Signs: 19:38 BP 159 / 95; Pulse 87; Resp 99; Temp 98.7; Pulse Ox 99% ; Weight 136.08 kg; Height 6 df1 ft. 2 in. (187.96 cm); Pain 10/10; 20:41 BP 144 / 88; Pulse 78; Resp 18; Pulse Ox 96% on R/A; bp 22:54 BP 114 / 74; Pulse 89; Resp 18; Pulse Ox 97% on R/A; lh3 19:38 Body Mass Index 38.52 (136.08 kg, 187.96 cm) df1 [place] Coma Score: 21:30 Eye Response: spontaneous(4). Verbal Response: oriented(5). Motor Response: obeys jermaine commands(6). Total: 15. ED Course: 19:31 Patient arrived in ED. ja2 19:42 Triage completed. df1 19:45 Saurav Blount MD is Attending Physician. jermaine 19:56 Elmer Sadler, RN is Primary Nurse. bp 20:41 Patient has correct armband on for positive identification. Bed in low position. Call bp light in reach. Side rails up X 1. Side rails up X2. 20:41 No provider procedures requiring assistance completed. Inserted saline lock: 20 gauge bp in left antecubital area, using aseptic technique. Blood collected. 22:11 Travis Figueroa MD is Referral Physician. jermaine 22:54 IV discontinued, intact, bleeding controlled, No redness/swelling at site. Pressure 3 dressing applied. 22:55 Arm band placed on right wrist. lh3 Administered Medications: 20:29 Drug: NS 0.9% 1000 ml Route: IV; Rate: 1 bolus; Site: left antecubital; bp 22:56 Follow up: Response: No adverse reaction; IV Status: Completed infusion 3 20:29 Drug: Ketorolac 30 mg Route: IVP; Site: left antecubital; bp 22:56 Follow up: Response: No adverse reaction lh3 20:29 Drug: Reglan (metoCLOPramide) 10 mg Route: IVP; Site: left antecubital; bp 22:56 Follow up: Response: No adverse reaction lh3 20:29 Drug: Benadryl (diphenhydrAMINE) 50 mg Route: IVP; Site: left antecubital; bp 22:56 Follow up: Response: No adverse reaction 3 22:04 Drug: Dilaudid (HYDROmorphone) 1 mg Route: IVP; Site: left antecubital; lh3 22:56 Follow up: Response: No adverse reaction; Pain is decreased lh3 22:56 Not Given (Other Intervention Used): Zofran (Ondansetron) 4 mg IVP once; over 2 minutes lh3 22:56 Not Given (Other Intervention Used): Dilaudid (HYDROmorphone) 1 mg IM once; RASS on lh3 ADMIN: Combtv4, Very Agttd3, Agttd2, Rstlss1, AlertClm0, Drwsy-1, Lt Sdtn-2, Mod Sdtn-3, Dp Sdtn-4, UnArsble-5 Outcome: 22:11 Discharge ordered by [facility] 22:54 Discharged to home ambulatory, with family. 3 22:54 Condition: good 22:54 Discharge instructions given to patient, Instructed on discharge instructions, follow up and referral plans. medication usage, Demonstrated understanding of instructions, follow-up care, medications, Prescriptions given X 2. 22:55 Patient left the ED. 3 Signatures: Saurav Blount MD MD cha Peltier, Brian, RN RN Luisa Tejeda RN RN 3 Karen Jones 2 Candace White df1
[2021-07-19 23:06] VITALS: TEMP 98.7
[2021-07-19 23:21] VITALS: BP 114/74; O2SAT 97
--- OUTSIDE RECORDS SUMMARY | 2021-07-28 12:00 | XMS REPORT | Continuity of Care Document ---
:1970 Author Organization [facility] [place] t Address [address] [place] [address] Care Team Providers Name Role Phone ANENE Attending Clinician Unavailable Luz Maria Bernal MD Attending Clinician LUZ MARIA BERNAL Attending Clinician Unavailable LUZ MARIA BERNAL Attending Clinician Unavailable Cassy Ashby Attending Clinician CASSY APPLE Attending Clinician Unavailable Doctor Unassigned, Name Attending Clinician Unavailable David MILLER, S Attending Clinician Fidencio Attending Clinician Jf ECHEVERRIA Attending Clinician Pavithra ECHEVERRIA Attending Clinician PAVITHRA Attending Clinician Unavailable Pavithra ECHEVERRIA Admitting Clinician PAVITHRA Admitting Clinician Unavailable Problems Condition Condition Condition Status Onset Resolution Last Treating Co mments Source Name Details Category Date Date Treatment Clinician Date Abdominal Abdominal Disease Active 2019- Uni vers pain pain 2-20 ity of 00:00: [place] [id number] Medical Branch Obesity Obesity Disease Active 2019- Univers (BMI (BMI 2-19 ity of 30-39.9) 30-39.9) 00:00: [place] 00 Medical Branch Acute Acute Disease Active 2019- Univers postoperat postoperat 2-19 it y of momo momo 00:00: [place] abdominal abdominal 00 Medi kyrie pain pain Branch Morbid Morbid Disease Active 2015-09 Univers obesity obesity 1-29 [place] of with body with [place] mass index mass index 00 Me dical of 50 or of 50 or Branch higher higher Allergies, Adverse Reactions, Alerts Allergy Allergy Status Severity Reaction(s) Onset Inactive Treating Comm ents Source Name Type Date Date Clinician SULFA Drug Active Hives Univers (SULFONA Class 1-21 ity of MIDE 00:00: [place] ANTIBIOT 00 Medical ICS) Branch ACETAMIN DRUG Active Hives Univers OPHEN-CO 1-21 ity of DEINE 00:00: [place] 00 Medical Branch Sulfa Propensi Active Hives Univers (Sulfona ty to 1-21 ity of mide adverse 00:00: [place] Antibiot reaction 00 Medica l ics) s Branch Acetamin Propensi Active Hives Univer s ophen-Co ty to 1-21 ity of deine adverse 00:00: [place] reaction 00 Medical s Branch Penicill Propensi Active Hives Univer s ins ty to 8-10 ity of adverse 00:00: [place] reaction 00 Medical s Branch PENICILL Drug Active Hives Univers INS Class 8-10 ity of 00:00: [place] 00 Medical Branch SULFA DRUG Active Hives 0 Univers DYNE 8-10 ity of 00:00: [place] 00 Medical Branch Sulfa Propensi Active Hives 2011-0 Univers Dyne ty to 8-10 ity of adverse 00:00: [place] reaction 00 Medical s Branch Social History Social Habit Start Date Stop Date Quantity Comments Source Exposure to Not sure [place] of SARS-CoV-2 [place] Medical (event) Branch Sex Assigned At [facility] Tobacco use and 2020-04-24 2020-04-24 Never used Universit y of exposure 00:00:00 00:00:00 [facility] Alcohol intake 2020-04-24 2020-04-24 Current drinker Unive rsity of 00:00:00 00:00:00 of alcohol [facility] (finding) Branch History SDOH 2019-11-03 2019-11-03 5 University o f Financial 00:00:00 00:00:00 [facility] Smoking Status Start Date Stop Date Source Former smoker 2020-04-24 00:00:00 2020-04-24 00:00:00 Universi ty of [facility] Medications Ordered Filled Start Stop Current Ordering Indication Dosage Frequency Signature Comments Components Source Medication Medication Date Date Medication? Clinician (SIG) Name Name divalproex 2020-0 Yes [id number] 250mg Take 1 Univers ER 250 mg 8-10 tablet by ity o f 24 hr 00:00: mouth 2 [place] tablet 00 (two) Medical times [place] daily. divalproex 2020-0 Yes [id number] 250mg Take 1 Univers ER 250 mg 8-10 tablet by ity o f 24 hr 00:00: mouth 2 [place] tablet 00 (two) Medical times [place] daily. water for 2020-0 Yes PRN, Univers irrigation -24 Starting ity o f irrigation 03:19: Angelina [place] solution 00 04/06/20 at Medic al 2219, Branch Until Discontinu ed, Routine, Intra-op simethicone 2020-0 Yes PRN, Univer s (GAS RELIEF 24 Starting ity of (SIMETHICON 03:19: Angelina [place] E)) 40 00 04/06/20 at Medical mg/0.6 mL 2218, [place] drops Until Discontinu ed, Routine, Intra-op glucagon 2019-2019- No 1mg 1 mg, Univers (GLUCAGEN 04-07-24 Intravenou ity of DIAGNOSTIC 02:45: 01:56 s, ONCE, 1 [place] KIT) 00 :00 dose, Angelina Medical injection 1 04/06/20 at Br anch mg 2144, Routine glucagon 2019-0 2020- No 1mg 1 mg, Univers (GLUCAGEN 04-0724 Intravenou ity of DIAGNOSTIC 01:45: 00:47 s, ONCE, 1 [place] KIT) 00 :00 dose, Angelina Medical injection 1 04/06/20 at Br anch mg 2044, Routine HYDROcodone 2019-0 2020- No 1{tbl} 1 tablet, Univers -acetaminop 6- 06-07 Oral, ity of hen (NORCO 01:15: 00:11 ONCE, 1 [place]ie as 5) 5-325 mg 00 :00 dose, Sat Med ical tablet 1 02/19/20 at Branch tablet 2014, MANDEEP NaCl 0.9% 2019-0 2020- No 1000mL at 999 Uni vers (NS) bolus 6-06 06-06 mL/hr, ity of infusion 23:00: 23:28 1,000 mL, Danie as 1,000 mL 00 :00 IV Medical Infusion, [place] ONCE, 1 dose, 02/19/20 at 1800, STAT morpHINE 2019-2019- No 4mg 4 mg, Slow Un grabiel injection 4 02-18 IV Push, ity of mg 23:00: 22:01 ONCE, 1 [place] 00 :00 dose, Sat Medical 02/19/20 at Branch 1800, STAT insulin 2019-2019- No 10U 10 Units, Univ ers regular 02-18 Subcutaneo ity o f human 22:45: 21:54 us, ONCE, [place] (HUMULIN R) 00 :00 1 dose, Medic al injection 02/19/20 Bran ch 10 Units at 1745, STAT NaCl 0.9% 2019- No 1000mL at 999 Uni vers (NS) bolus 02-18 mL/hr, ity of infusion 21:45: 23:27 1,000 mL, Danie as 1,000 mL 00 :00 IV Medical Infusion, [place] ONCE, 1 dose, 02/19/20 at 1645, STAT ondansetron 2019- No 4mg 4 mg, Slow Univers (ZOFRAN 02-18 IV Push, ity of (PF)) 21:45: 20:51 ONCE, 1 [place] injection 4 00 :00 dose, Sat Med ical mg 02/19/20 at Branch 1645, MANDEEP FENTanyl PF 2019- No 25ug 25 mcg, Un grabiel (SUBLIMAZE 02-18 Slow IV ity o f (PF)) 21:45: 20:50 Push, [place] injection 00 :00 ONCE, 1 Medical 25 mcg dose, Sat Ter[place] 02/19/20 at 1645, STAT clindamycin 2019- No 900mg 900 mg, IV Univers in 5 % 02-18 Piggyback, ity of dextrose 21:45: 21:21 ONCE, 1 [place] (CLEOCIN) 00 :00 dose, Sat Medic al 900 mg/50 02/19/20 at Branc h mL IV 1645, 50 piggyback mL
Reas RTU 900 mg on for Anti-Infec tive: Documented Infection< br>Documen yelena Infection Site: Skin / Soft Tissue
Duration of Therapy: Other (see Comments)< br>Restric yelena use approved by: ADC PROVIDER acetaminoph 2020- No 1000mg 1,000 mg, Univers en 6- 06-06 Oral, ity of (TYLENOL) 21:30: 20:30 ONCE, 1 [place] tablet 00 :[place] dose, Sat Medical 1,000 mg 02/19/20 at Branch 1630, MANDEEP traMADol 50 2019-0 Yes [id number] 50mg Take 1 Univers mg tablet 6-06 tablet by ity o f 00:00: mouth [place] 00 every 6 Medical (six) Branch hours as needed for Pain (scale 4-6). traMADol 50 2019-0 Yes [id number] 50mg Take 1 Univers mg tablet 6-06 tablet by ity o f 00:00: mouth [place] 00 every 6 Medical (six) Branch hours as needed for Pain (scale 4-6). traMADol 50 2019-0 Yes [id number] 50mg Take 1 Univers mg tablet 6-06 tablet by ity o f 00:00: mouth [place] 00 every 6 Medical (six) Branch hours as needed for Pain (scale 4-6). traMADol 50 2019-0 Yes [id number] 50mg Take 1 Univers mg tablet 6-06 tablet by ity o f 00:00: mouth [place] 00 every 6 Medical (six) Branch hours as needed for Pain (scale 4-6). traMADol 50 2019-0 Yes [id number] 50mg Take 1 Univers mg tablet 6-06 tablet by ity o f 00:00: mouth [place] 00 every 6 Medical (six) Branch hours as needed for Pain (scale 4-6). traMADol 50 2019-0 Yes [id number] 50mg Take 1 Univers mg tablet 6-06 tablet by ity o f 00:00: mouth [place] 00 every 6 Medical (six) Branch hours as needed for Pain (scale 4-6). clindamycin 2019-0 2020- No [id number] 450mg Take 3 Univers 150 mg 02-18 06-17 capsules ity of capsule 00:00: 04:59 by mouth 3 [place] as 00 :00 (three) Medical times Branch daily for 10 days. glipiZIDE 2019-0 Yes [id number] 10mg Take 1 Un grabiel 10 mg 2-22 tablet by ity of tablet 00:00: mouth 2 [place] 00 (two) Medical times Branch daily before breakfast and dinner. HYDROcodone 2019-0 Yes [id number] 1{tbl} Take 1 Univers -acetaminop 2-22 tablet by ity of hen 5-325 00:00: mouth [place] mg tablet 00 every 6 Medical (six) Branch hours as needed for Pain (scale 7-10). glipiZIDE 2020-0 Yes [id number] 10mg Take 1 Un grabiel 10 mg 2-22 tablet by ity of tablet 00:00: mouth 2 [place] 00 (two) Medical times Branch daily before breakfast and dinner. HYDROcodone 2020-0 Yes [id number] 1{tbl} Take 1 Univers -acetaminop 2-22 tablet by ity of hen 5-325 00:00: mouth [place] mg tablet 00 every 6 Medical (six) Branch hours as needed for Pain (scale 7-10). glipiZIDE 2020-0 Yes [id number] 10mg Take 1 Un grabiel 10 mg 2-22 tablet by ity of tablet 00:00: mouth 2 [place] 00 (two) Medical times Branch daily before breakfast and dinner. HYDROcodone 2020-0 Yes [id number] 1{tbl} Take 1 Univers -acetaminop 2-22 tablet by ity of hen 5-325 00:00: mouth [place] mg tablet 00 every 6 Medical (six) Branch hours as needed for Pain (scale 7-10). glipiZIDE 2020-0 Yes [id number] 10mg Take 1 Un grabiel 10 mg 2-22 tablet by ity of tablet 00:00: mouth 2 [place] 00 (two) Medical times Branch daily before breakfast and dinner. HYDROcodone 2020-0 Yes [id number] 1{tbl} Take 1 Univers -acetaminop 2-22 tablet by ity of hen 5-325 00:00: mouth [place] mg tablet 00 every 6 Medical (six) Branch hours as needed for Pain (scale 7-10). glipiZIDE 2020-0 Yes [id number] 10mg Take 1 Un grabiel 10 mg 2-22 tablet by ity of tablet 00:00: mouth 2 [place] 00 (two) Medical times Branch daily before breakfast and dinner. HYDROcodone 2020-0 Yes [id number] 1{tbl} Take 1 Univers -acetaminop 2-22 tablet by ity of hen 5-325 00:00: mouth [place] mg tablet 00 every 6 Medical (six) Branch hours as needed for Pain (scale 7-10). glipiZIDE 2020-0 Yes [id number] 10mg Take 1 Un grabiel 10 mg 2-22 tablet by ity of tablet 00:00: mouth 2 [place] 00 (two) Medical times Branch daily before breakfast and dinner. HYDROcodone 2020-0 Yes [id number] 1{tbl} Take 1 Univers -acetaminop 2-22 tablet by ity of hen 5-325 00:00: mouth [place] mg tablet 00 every 6 Medical (six) Branch hours as needed for Pain (scale 7-10). glipiZIDE 2020-0 Yes [id number] 10mg Take 1 Un grabiel 10 mg 2-22 tablet by ity of tablet 00:00: mouth 2 [place] 00 (two) Medical times Branch daily before breakfast and dinner. HYDROcodone 2020-0 Yes [id number] 1{tbl} Take 1 Univers -acetaminop 2-22 tablet by ity of hen 5-325 00:00: mouth [place] mg tablet 00 every 6 Medical (six) Branch hours as needed for Pain (scale 7-10). glipiZIDE 2020-0 Yes [id number] 10mg Take 1 Un grabiel 10 mg 2-22 tablet by ity of tablet 00:00: mouth 2 [place] 00 (two) Medical times Branch daily before breakfast and dinner. HYDROcodone 2020-0 Yes [id number] 1{tbl} Take 1 Univers -acetaminop 2-22 tablet by ity of hen 5-325 00:00: mouth [place] mg tablet 00 every 6 Medical (six) Branch hours as needed for Pain (scale 7-10). glipiZIDE 2020-0 Yes [id number] 10mg Take 1 Un grabiel 10 mg 2-22 tablet by ity of tablet 00:00: mouth 2 [place] 00 (two) Medical times Branch daily before breakfast and dinner. HYDROcodone 2020-0 Yes [id number] 1{tbl} Take 1 Univers -acetaminop 2-22 tablet by ity of hen 5-325 00:00: mouth [place] mg tablet 00 every 6 Medical (six) Branch hours as needed for Pain (scale 7-10). ciprofloxac 2020-0 2020- No [id number] 500mg Take 1 Univers in HCl 500 2-22 03-01 tablet by ity of mg tablet 00:00: 05:59 mouth [place] 00 :00 every 12 Medical (twelve) Branch hours for 7 days. metroNIDAZO 2020- No [id number] 500mg Take 1 Univers LE 500 mg 11-06 tablet by ity of tablet 00:00: 05:59 mouth 2 [place] 00 :00 (two) Medical times Branch daily for 7 days. HYDROmorpho Yes 1mg 1 mg, Slow Univers ne 2-21 IV Push, ity of (DILAUDID) 15:33: Q6HPRN, [place] injection 1 28 Starting Medi kyrie mg Fri Branch 11/05/19 at 0933, Until Discontinu ed, Routine, Pain (scale 7-10)
U se approved by (Faculty): ADC PROVIDER HYDROmorphO 2020- No 1mg 1 mg, Slow Univers ne 11-04 IV Push, ity of (DILAUDID) 17:03: 15:33 Q3HPRN, Danie as injection 1 17 :39 Starting Medi kyrie mg Angelina Branch 11/04/19 at 1103, Until Fri11/05/19 at 0933, MANDEEP, Pain (scale 7-10)
U se approved by (Faculty): ADC PROVIDER sennosides 2019- Yes 8.6mg 8.6 mg, Uni vers (SENOKOT) 2-20 Oral, ity of tablet 8.6 15:00: DAILY, [place] mg 00 First dose Medical on Angelina Branch 11/04/19 at 0900, Until Discontinu ed, Routine ciprofloxac 2019- No 400mg 400 mg, IV Univers in in 5 % 11-04 Piggyback, ity of dextrose 07:00: 20:00 [place] (CIPRO[place] 00 :00 over 60 Medical piggyback Minutes, Branch 400 mg Q12H ABX, 2 doses, First dose on Angelina 11/04/19 at 0100, Last dose on Fri11/04/19 at 1300, MANDEEP
Re ason for Anti-Infec tive: Documented Infection& lt;br>Docu mented Infection Site: Abdominal< br>Duratio n of Therapy: Other (see Comments) Sliding 2019- Yes Subcutaneo Univ ers Scale 2-20 us, TID ity of Insulin - 03:00: MEALS+HS, [place]ie as Aspart 00 First dose Medical (NOVOLOG) + on Fri Branch Fsbg 11/03/19 at Testing 2100, Until Discontinu ed, Routine docusate 2019- Yes 100mg 100 mg, Unive rs (COLACE) 2-20 Oral, ity of capsule 100 02:00: Q12H, [place] mg 00 First dose Medical on Fri Branch 11/03/19 at 2000, Until Discontinu ed, Routine insulin 2020- No 30U 30 Units, Univ ers detemir 11-04 Subcutaneo ity o f U-100 01:30: 14:24 us, DAILY, [place] (LEVEMIR 00 :53 First dose Medic al U-100 on Fri Branch INSULIN) 11/03/19 at injection 1930, 30 Units Until Discontinu ed, Routine glipiZIDE Yes 10mg 10 mg, Univer s (GLUCOTROL) 11-04 Oral, ity of tablet 10 00:45: BIDAC, [place] mg 00 First dose Medical on Fri Branch 11/03/19 at 1845, Until Discontinu ed, Routine metroNIDAZO 2019- No 500mg 500 mg, IV Univers LE (FLAGYL 11-03 Piggyback, it y of I.V.) 23:15: 16:06 Q8H ABX, 6 [place] Piggyback 00 :00 doses, Medical 500 mg First dose Branch on Fri11/03/19 at 1715, Last dose on Fri11/05/19 at 0915, 100 mL
Reas on for Anti-Infec tive: Documented Infection< br>Documen yelena Infection Site: Abdominal< br>Duratio n of Therapy: 7 days HYDROcodone Yes 1{tbl} 1 tablet, Univers -acetaminop 11-03 Oral, ity of hen (NORCO 21:44: Q4HPRN, [place] 5) 5-325 mg 00 Starting Medi kyrie tablet 1 Fri Branch tablet 11/03/19 at 1544, Until Discontinu ed, Routine, Pain (scale 4-6) morpHINE 2019- No 4mg 4 mg, Slow Un grabiel injection 4 11-03 IV Push, ity of mg 21:43: 17:06 Q2HPRN, [place] 39 :17 Starting Medical Fri Branch 11/03/19 at 1543, Until [place] 11/04/19 at 1106, Routine, Pain (scale 7-10) ondansetron Yes 4mg 4 mg, Slow Univers (ZOFRAN 11-03 IV Push, ity of (PF)) 21:40: Q6HPRN, [place] injection 4 10 Starting Medi kyrie mg Wed Branch 11/03/19 at 1540, Until Discontinu ed, Routine, Nausea and Vomiting (N/V) metroNIDAZO 2019- No 500mg 500 mg, IV Univers LE (FLAGYL 11-03 Piggyback, it y of I.V.) 19:30: 19:55 ONCE, 1 [place] Piggyback 00 :00 dose, Wed Medic al 500 mg 11/03/19 at Branch 1330, 100 mL
Reas on for Anti-Infec tive: Documented Infection< br>Documen yelena Infection Site: Abdominal< br>Duratio n of Therapy: Other (see Comments) ciprofloxac No 400mg 400 mg, IV Univers in in 5 % 11-03 Piggyback, ity of dextrose 19:30: 19:43 [place] (CIPRO) 00 :00 over 60 Medical piggyback Minutes, Branch 400 mg ONCE, 1 dose, 11/03/19 at 1330, MANDEEP
Re ason for Anti-Infec tive: Documented Infection< br>Documen yelena Infection Site: Abdominal< br>Duratio n of Therapy: Other (see Comments) D5W 0.45% 2019- No 1000mL at 125 Uni vers NaCl 11-03 mL/hr, ity of (1/2NS) IV 19:15: 01:21 1,000 mL, [place] infusion 00 :07 IV Medical 1,000 mL Infusion, Branch CONTINUOUS , Starting 11/03/19 at 1315, Until 11/03/19 at 1921, MANDEEP FENTanyl PF 2020- No 125ug 125 mcg, Univers (SUBLIMAZE 11-03 Slow IV ity o f (PF)) 18:15: 17:26 Push, [place] injection 00 :00 ONCE, 1 Medical 125 mcg dose, Wed Branch 11/03/19 at 1215, Routine iohexol 2019- No 120mL 120 mL, Unive rs (OMNIPAQUE 11-03 Intravenou it y of 350 17:32: 17:32 s, ONCE, 1 [place] BULK-150 00 :00 dose, Wed Medica l mL) 11/03/19 at Branch injection 1145, 120 mL Routine NaCl 0.9% 2019- No 1000mL at 999 Uni vers (NS) bolus 11-03 mL/hr, ity of infusion 17:00: 18:28 1,000 mL, [place]ie as 1,000 mL 00 :00 IV Medical Infusion, Branch ONCE, 1 dose, 11/03/19 at 1100, STAT FENTanyl PF 2019- No 100ug 100 mcg, Univers (SUBLIMAZE 11-03 Slow IV ity o f (PF)) 17:00: 16:06 Push, [place] injection 00 :00 ONCE, 1 Medical 100 mcg dose, Wed Branch 11/03/19 at 1100, Routine ondansetron 2019- No 4mg 4 mg, Slow Univers (ZOFRAN 11-03 IV Push, ity of (PF)) 17:00: 16:06 ONCE, 1 [place] injection 4 00 :00 dose, Wed Med ical mg 11/03/19 at Branch 1100, MANDEEP cyclobenzap 2018-09- No [id number] 5mg Take 1 Univers rine 5 mg 011-06 9100 tablet by ity of tablet 00:00: 00:00 mouth 3 [place] 00 :00 (three) Medical times Branch daily. traMADol 2018-09- No [id number] 50mg Take 1 Univers (ULTRAM) 50 11-06 9100 tablet by it y of mg tablet 00:00: 00:00 mouth [place] 00 :00 every 8 Medical (eight) Branch hours as needed for Pain (scale 4-6). benzonatate 2020- No 100mg Take 1 Un grabiel 100 mg 10-05 capsule by ity of capsule 00:00: 00:00 mouth 3 [place] 00 :00 (three) Medical times Branch daily as needed for Cough. DO NOT CHEW! ondansetron 2020- No 4mg Take 1 Uni vers (ZOFRAN 10-05 tablet by ity of ODT) 4 mg 00:00: 00:00 mouth [place] disintegrat 00 :00 every 8 Medic al ing tablet (eight) Branch hours as needed for Nausea and Vomiting (N/V). sod 2019- No 1{bottl Use 1 Univers chlor-bicar 10-05 e} Bottle in it y of b-squeez 00:00: 00:00 each [place] bottle 00 :00 nostril 2 Medical (NEILMED (two) Branch SINUS RINSE times COMPLETE) daily. Use pkdv in hot shower 1 hour before bedtime Vital Signs Vital Name Observation Time Observation Value Comments Source Systolic blood 2020-04-24 13:23:00 129 mm[Hg] Univer sity of [facility] Diastolic blood 2020-04-24 13:23:00 81 mm[Hg] Unive rsity of [facility] Heart rate 2020-04-24 13:23:00 82 /min Universi ty [facility] Body weight 2020-04-24 13:23:00 138.075 kg Universi ty [facility] BMI 2020-04-24 13:23:00 39.08 kg/m2 Universi ty [facility] Systolic blood 2020-04-24 13:23:00 129 mm[Hg] Univer sity of [facility] Diastolic blood 2020-04-24 13:23:00 81 mm[Hg] Unive rsity of [facility] Heart rate 2020-04-24 13:23:00 82 /min Universi ty [facility] Body weight 2020-04-24 13:23:00 138.075 kg Universi ty [facility] BMI 2020-04-24 13:23:00 39.08 kg/m2 Universi ty [facility] Systolic blood 2020-04-07 03:51:00 118 mm[Hg] Univer sity of [facility] Diastolic blood 2020-04-07 03:51:00 68 mm[Hg] Unive rsity of [facility] Heart rate 2020-04-07 03:51:00 92 /min Universi ty [facility] Respiratory rate 2020-04-07 03:51:00 16 /[facility] in 2020-04-07 03:51:00 100 /min University of Arterial blood by [place] Medi kyrie Pulse oximetry Branch Body temperature 2020-04-07 03:40:00 36.44 Leonor [facility] [place] [facility] Body weight 2020-04-07 00:07:00 129.275 kg [facility]i [facility] [place] [facility] BMI 2020-04-07 00:07:00 36.59 kg/m2 [facility] [place] [facility] Heart rate 2020-02-19 23:10:00 105 /min [facility] [place] [facility] Respiratory rate 2020-02-19 23:10:00 29 /min Univ [facility] [place] [facility] Oxygen saturation in 2020-02-19 23:10:00 94 /min University of Arterial blood by [facility] Pulse oximetry Branch Systolic blood 2020-02-19 23:00:00 127 mm[Hg] Univer sity of pressure [place] [facility] Diastolic blood 2020-02-19 23:00:00 78 mm[Hg] Unive rsity of pressure [place] [facility] Body temperature 2020-02-19 22:04:10 37.33 Leonor Univ [facility] [place] [facility] Body height 2020-02-19 19:56:00 188 cm [facility]i [facility] [place] [facility] Body weight 2020-02-19 19:56:00 129.275 kg [facility]i [facility] [place] [facility] BMI 2020-02-19 19:56:00 36.59 kg/m2 Universi ty of [facility] Branch Systolic blood 2019-11-06 17:14:00 138 mm[Hg] Univer sity of pressure [place] [facility] Diastolic blood 2019-11-06 17:14:00 88 mm[Hg] Unive rsity of pressure [facility] Branch Heart rate 2019-11-06 17:14:00 102 /min [facility]i ty [facility] [place] [facility] Respiratory rate 2019-11-06 17:14:00 18 /min Univ ers[facility] [place] [facility] Oxygen saturation in 2019-11-06 17:14:00 96 /min University of Arterial blood by [facility] Pulse oximetry Branch Body temperature 2019-11-06 14:00:00 36.72 Leonor [facility] [place] [facility] Body height 2019-11-03 23:00:00 188 cm [facility] [place] [facility] Body weight 2019-11-03 15:22:00 129.275 kg [facility] [place] [facility] BMI 2019-11-03 15:22:00 36.58 kg/m2 [facility] [place] [facility] Procedures Procedure Date / Time Performing Clinician Source Performed EGD (ENDO) 2020-04-07 02:31:21 Lisa Armendariz [facility] COMP. METABOLIC PANEL 2020-04-07 01:52:00 Yazmin Apple [facility] ([id number]) Medical Branch CBC WITH DIFF 2020-04-07 01:52:00 Yazmin Apple [facility] XR NECK SOFT TISSUE 2020-04-07 00:57:29 Yazmin Apple [facility] COVID-19 (ID NOW RAPID 2020-04-07 00:40:00 Yazmin Apple [facility] TESTING) Medical Branch NOTICE OF PRIVACY 2020-04-06 23:57:19 Doctor Unassigned, No [facility] PRACTICES Name Medical Branch CONSENT/REFUSAL FOR 2020-04-06 23:57:05 [facility] Unassigned, No [facility] [place] [facility]REAT[facility] Name Medical Branch REFERRAL- 2020-03-29 05:01:00 Doctor Unassigned, No [facility] REQUEST/RESPONSE Name Medical Branch POCT GLUCOSE 2020-02-19 23:05:00 Meggan Hernandez [facility] (AUTOMATED) Medical Branch POCT GLUCOSE 2020-02-19 21:52:00 Meggan Hernandez [facility] (AUTOMATED) Medical Branch COMP. METABOLIC PANEL 2020-02-19 20:47:00 Meggan Hernandez [facility] ([id number]) Medical Branch CBC WITH DIFFERENTIAL 2020-02-19 20:47:00 Meggan Hernandez [facility] Medical Branch COVID-19 (ID NOW RAPID 2020-02-19 20:47:00 Meggan Hernandez [facility] TESTING) Medical Branch NOTICE OF PRIVACY 2020-02-19 19:53:34 Doctor Unassigned, No [facility] Branch CONSENT/REFUSAL FOR 2020-02-19 19:53:23 Doctor Unassigned, No [facility] Name Medical Branch POCT GLUCOSE 2019-11-06 13:36:00 Luis Mandujano [facility] (AUTOMATED) Medical Branch POCT GLUCOSE 2019-11-06 01:48:00 Luis Mandujano [facility] (AUTOMATED) Medical Branch POCT GLUCOSE 2019-11-05 22:16[facility]00 [facility] POCT GLUCOSE 2019-11-05 17:26:00 Pavithra Chan [facility] (AUTOMATED) Medical Branch POCT GLUCOSE 2019-11-05 13:21:00 Pavithra Chan [facility] (AUTOMATED) Medical Branch BASIC METABOLIC PANEL 2019-11-05 10:28:00 [facility] (NA, K, CL, CO2, Medical Branch GLUCOSE, BUN, CREATININE, CA) CBC WITH DIFFERENTIAL 2019-11-05 10:28:00 [facility] Medical Branch POCT GLUCOSE 2019-11-05 10:12:00 [facility] Branch POCT GLUCOSE 2019-11-05 06:12:00 Pavithra Chan [facility] (AUTOMATED) Medical Branch POCT GLUCOSE 2019-11-05 01:41:00 Pavithra Chan [facility] (AUTOMATED) Medical Branch POCT GLUCOSE 2019-11-04 22:26:00 Pavithra Chan [facility] (AUTOMATED) Medical Branch POCT GLUCOSE 2019-11-04 17:20:00 Pavithra Chan [facility] (AUTOMATED) Medical Branch POCT GLUCOSE 2019-11-04 13:21:00 Pavithra Chan [facility] (AUTOMATED) Medical Branch POCT GLUCOSE 2019-11-04 11:57:00 [facility] [place] (AUTOMATED) [facility] POCT GLUCOSE 2019-11-04 05:30:00 Pavithra Chan [facility] (AUTOMATED) Medical Branch POCT GLUCOSE 2019-11-04 02:17:00 Pavithra Chan [facility] [place] (AUTOMATED) Medical Branch POCT GLUCOSE 2019-11-03 23:23:00 Pavithra Chan [facility] [place] (AUTOMATED) Medical Branch POCT GLUCOSE 2019-11-03 21:41:00 Pavithra Chan [facility] [place] (AUTOMATED) Medical Branch SURGICAL PATHOLOGY EXAM 2019-11-03 20:26:00 Yonatan Lund Uni vers[facility] LAPAROSCOPIC 2019-11-03 19:24:00 Yonatan Lund [facility] APPENDECTOMY [facility] CT ABDOMEN PELVIS W 2019-11-03 17:41:[address] [facility] CONTRAST [facility] LIPASE 2019-11-03 15:35:00 Ervin Rhoades [facility] COMP. METABOLIC PANEL 2019-11-03 15:35:00 Ervin Rhoades [facility] ([id number]) [facility] CBC WITH DIFFERENTIAL 2019-11-03 15:35:00 Ervin Rhoades [facility] GLYCOSYLATED HEMOGLOBIN 2019-11-03 15:35:00 Meggan Pichardo [facility] (A1C) [facility] URINALYSIS 2019-11-03 15:35:00 Jf [facility] Encounters Start End Encounter Admission Attending Care Care Encounter Source Date/Time Date/Time Type Type Clinicians Facility Department ID 2020-08-15 2020-08-15 Outpatient R [facility] [id number] Univers 10:00:00 10:00:00 [facility] 2020-08-15 2020-08-15 Outpatient R [facility] [id number] Univers 10:00:00 10:00:00 SILVINA [facility] 2020-08-14 2020-08-14 Outpatient R [facility] [id number] Univers 10:40:00 10:40:00 [facility] 2020-04-24 2020-04-24 Office [facility] [id number] 08:15:37 08:49:56 Visit Norberto Ward [id number] Juda 4.2.7.2.686 Professio [phone] [address] 2020-04-24 2020-04-24 Office [facility] 1.2.840.114 [id number] [facility] 08:15:37 08:49:56 Visit Norberto Ward [id number] vict[place] manuel [place] [phone] N[place] dical [address] 2020-04-24 2020-04-24 Outpatient R NORBERTO BERNAL [facility] [id number] Univers 08:00:00 08:00:00 NORBERTO BERNAL ity of [facility] 2020-04-06 2020-04-06 Emergency Yazmin Apple [facility] [id number] Univers 19:12:13 22:55:00 Cassy Ward 350.1.13.10 [place] [phone] [place] 691561 [place] 2020-04-06 2020-04-06 Emergency X Yazmin APPLE [facility] ERT [id number] Univers 19:12:13 19:12:13 ity of [facility] 2020-04-06 2020-04-06 Orders Doctor SNEED 1.2.840.114 [id number] Univers 00:00:00 00:00:00 Only Unassigned, MIRI 350.1.13.10 ity of [place] [facility] 4.2.7.2.686 Danie as [phone] [address] 2020-03-29 2020-03-29 Orders Doctor NAREN 1.2.840.114 [id number] Univers 00:00:00 00:00:00 Only Unassigned, MIRI 350.1.13.10 ity of [place] [facility] 4.2.7.2.686 Adnie as [phone] [address] 2020-02-19 2020-02-19 Emergency David [facility] [id number] Univers 15:07:18 19:22:00 Meggan Ward 350.1.13.10 [place] [phone] [facility] 084 [place] 2020-02-19 2020-02-19 Emergency X [facility] ERT [id number] Univers 14:53:00 14:53:00 ity of [facility] 2020-02-19 2020-02-19 Orders Doctor NAREN Mcelroy.2.840.114 [id number] Univers 00:00:00 00:00:00 Only Unassigned, MIRI 350.1.13.10 ity of [place] [facility] 4.2.7.2.686 Danie as [phone] [facility] 009 Branch 2019-11-08 2019-11-08 Transition Faraz Nicolas 1.2.840.114 [id number] Univers 00:00:00 00:00:00 of Care Hortensia De Jesus 350.1.13.10 [place] [phone] [facility] 403 Branch 2019-11-03 2019-11-06 Hospital Ervin Rhoades [facility] 1.2.840.1 [id number] Univers 09:25:15 12:00:00 Encounter Luis Mandujano 350.1.13.10 [place] [phone] [facility] 080 Branch 2019-11-03 2019-11-06 Inpatient X PAVITHRA [facility] TIMOTEO [id number] Univers 09:25:15 12:00:00 LUIS osman [facility] Results Test Description Test Time Test Comments Results Result Comments Source COMP. METABOLIC PANEL (39775) 2020-04-07 03:03:00 Test Item Value Reference Range Interpretation Comme nts NA (test code = 0430365271) 139 mmol/L 135-145 K (test code = 4508005688) 4.4 mmol/L 3.5-5 CL (test code = 2914333731) 101 mmol/L 98-108 CO2 TOTAL (test code = 9371538082) 28 mmol/L 23-31 AGAP (test code = 9731181930) 2-16 BUN (test code = 0205697440) 11 mg/dL 7-23 GLUCOSE (test code = 8531671072) 225 mg/dL 70-110 H CREATININE (test code = 0.98 mg/dL 0.6-1.25 9107397698) TOTAL BILI (test code = 0.5 mg/dL 0.1-1.7 2037145032) CALCIUM (test code = 6245557603) 9.6 mg/dL 8.6-10.6 T PROTEIN (test code = 7642373534) 8.2 g/dL 6.3-8.2 ALBUMIN (test code = 6194847497) 4.7 g/dL 3.5-5 ALK PHOS (test code = 2652784241) 75 U/L 34-122 ALTv (test code = 1742-6) 74 U/L 5-50 H AST(SGOT) (test code = 7940587318) 39 U/L 13-40 eGFR Calculation (Non- mL/min/1.73m2 Danish) (test code = 4677990957) eGFR Calculation ( mL/min/1.73m2 Danish) (test code = 1492546171) KATE (test code = KATE) Association of Glomerular Filtration Rate (GFR) and Staging of Kidney Disease* + +-------- + ------+| GFR (mL/min/1.73 m2) ?| With Kidney Damage ?| ?Without Kidney Damage+ +-- + +| ?>90 ?| ?Stage one ?| ? Normal ?+ +------- + -------+| ?60-89 ?| ?Stage two ?| ? Decreased GFR ? + +-------- + ------+| ?30-59 ?| ?Stage three ?| ? Stage three ? + +-------- + ------+| ?15-29 ?| ?Stage four ? | ? Stage four ?+ +------- + -------+| ?<15 (or dialysis) ? ?| ?Stage five ? | ? Stage five ?+ +------- + -------+ *Each stage assumes the associated GFR level has been in effect for at least three months. ?Stages 1 to 5, with or without kidney disease, indicate chronic kidney disease. Notes: Determination of stages one and two (with eGFR >59mL/min/1.73 m2) requires estimation of kidney damage for at least three months as defined by structural or functional abnormalities of the kidney, manifested by either:Pathological abnormalities or Markers of kidney damage (including abnormalities in the composition of the blood or urine or abnormalities in imaging tests). Lab Interpretation (test code = Abnormal 42700-8) [facility] WITH [id number] 02:12:00 Test Item Value Reference Range Interpretation Comments WBC (test code = See_Comment [Automated 90-2) message] The sy stem which generated this result transmitted reference range : 4.20 - 10.70 10*3/?L. The reference range was not used to interpret this result as normal/abnormal . RBC (test code = See_Comment H [Automated 789-8) message] The sy stem which generated this result transmitted reference range : 4.26 - 5.52 10*6/?L. The reference range was not used to interpret this result as normal/abnormal . HGB (test code = 15.7 g/dL 12.2-16.4 718-7) HCT (test code = 47.7 % 38.4-49.3 4544-3) MCV (test code = 81.1 fL 81.7-95.6 L 787-2) MCH (test code = 26.7 pg 26.1-32.7 785-6) MCHC (test code = 32.9 g/dL 31.2-35 786-4) RDW-SD (test code = 36.4 fL 38.5-51.6 L 02433-7) RDW-CV (test code = 12.5 % 12.1-15.4 788-0) PLT (test code = See_Comment [Automated 777-3) message] The sy stem which generated this result transmitted reference range : 150 - 328 10*3/ ?L. The reference r jevon was not used to interpret this result as normal/abnormal . MPV (test code = 11.5 fL 9.8-13 80148-7) NRBC/100 WBC (test See_Comment [Automat ed code = 0545877843) message] The system which generated this result transmitted reference range : 0.0 - 10.0 /100 WBCs. The refer ence range was not u sed to interpret th is result as normal/abnormal . NRBC x10^3 (test code <0.01 See_Comment [Auto mated = 7917502444) message] The s ystem which generated this result transmitted reference range : 10*3/?L. The reference range was not used to interpret this result as normal/abnormal . GRAN MAT (NEUT) % 68.0 % (test code = 770-8) IMM GRAN % (test code 0.40 % = 6902622360) LYMPH % (test code = 23.8 % 736-9) MONO % (test code = 4.7 % 5905-5) EOS % (test code = 2.7 % 713-8) BASO % (test code = 0.4 % 706-2) GRAN MAT x10^3(ANC) 5.24 10*3/uL 1.99-6.95 (test code = 0343800294) IMM GRAN x10^3 (test 0.03 10*3/uL 0-0.06 code = 5158058818) LYMPH x10^3 (test code 1.83 10*3/uL 1.09-3.23 = 731-0) MONO x10^3 (test code 0.36 10*3/uL 0.36-1.02 = 742-7) EOS x10^3 (test code = 0.21 10*3/uL 0.06-0.53 711-2) BASO x10^3 (test code 0.03 10*3/uL 0.01-0.09 = 704-7) Lab Interpretation Abnormal (test code = 22381-2) [facility]APID [facility]ING[facility]2020-04-07 01:40:00 Test Item Value Reference Range Interpretation Comments SARS-CoV-2 Rapid ID NOW Not Detected Not Detected (test code = 95158-7) KATE (test code = KATE) ID NOW COVID-19 Assay is an isothermal nucleic acid amplification test intended for the qualitative detection of nucleic acid from SARS-CoV-2 viral RNA in nasopharyngeal (OPERATIONS CONSULTANT) specimens. It is used under Emergency Use Authorization (EUA) by FDA. The limit of detection (LOD) of the assay is 125 Genome Equivalents/mL. A positive result is indicative of the presence of SARS-CoV-2 RNA. ?Clinical correlation with patient history and other diagnostic information is necessary to determine patient infection status. A negative (Not Detected) result does not preclude SARS-CoV-2 infection. In patients with clinical symptoms and other tests that are consistent with SARS-CoV-2 infection, negative results should be treated as presumptive negative and a new specimen should be tested with alternative PCR molecular test. Invalid: Please collect a new specimen for repeat patient testing if clinically indicated. Lab Interpretation Normal (test code = 43827-4) [facility] NECK SOFT [id number] 01:06:58 FINDINGS/IMPRESSION:: Frontal and lateral radiographs of the neck soft tissues were performed. No radiopaque foreign body identified. The oropharyngeal and nasopharyngealairways are patent. The prevertebral soft tissues are unremarkable. Mild spondylotic changes at C5-C6. Cervical spine is otherwiseun remarkable. EXAM: XR NECK SOFT TISSUE HISTORY: esophageal fb COMPARISON: None. [facility], Radiant Results Inft User - 04/06/2020 8:08 PM CDTEXAM: XR NECK SOFT TISSUEHISTORY: esophageal fb COMPARISON: None.IMPRESSIONFINDINGS/IMPRESSION:: Frontal and lateral radiographs of the neck soft tissues were performed.No radiopaque foreign body identified. The oropharyngeal and nasopharyngealairways are patent. The prevertebral soft tissues are unremarkable.Mild spondylotic changes at C5-C6. Cervical spine is otherwiseunremarkable.[facility] GLUCOSE (AUTOMATED) 2020-02-19 23:08:00 Test Item Value Reference Range Interpretation Comments POCT GLU (test code = 2724401077) 243 mg/dL 70-110 H Lab Interpretation (test code = Abnormal 40961-5) [facility] GLUCOSE (AUTOMATED)2020-02-19 21:58:00 Test Item Value Reference Range Interpretation Comments POCT GLU (test code = 1496908190) 313 mg/dL 70-110 H Lab Interpretation (test code = Abnormal 68109-5) [facility]ID NOW RAPID TESTING)2020-02-19 21:31:00 Test Item Value Reference Range Interpretation Comments SARS-CoV-2 Rapid ID NOW Not Detected Not Detected (test code = 33732-0) KATE (test code = KATE) ID NOW COVID-19 Assay is an isothermal nucleic acid amplification test intended for the qualitative detection of nucleic acid from SARS-CoV-2 viral RNA in nasopharyngeal (OPERATIONS CONSULTANT) specimens. It is used under Emergency Use Authorization (EUA) by FDA. The limit of detection (LOD) of the assay is 125 Genome Equivalents/mL. A positive result is indicative of the presence of SARS-CoV-2 RNA. ?Clinical correlation with patient history and other diagnostic information is necessary to determine patient infection status. A negative (Not Detected) result does not preclude SARS-CoV-2 infection. In patients with clinical symptoms and other tests that are consistent with SARS-CoV-2 infection, negative results should be treated as presumptive negative and a new specimen should be tested with alternative PCR molecular test. Invalid: Please collect a new specimen for repeat patient testing if clinically indicated. Lab Interpretation Normal (test code = 03783-7) [facility] MET[facility]OLIC PANEL (03400)2020-02-19 21:29:00 Test Item Value Reference Range Interpretation Comments NA (test code = 134 mmol/L 135-145 L 9967437185) K (test code = 4.1 mmol/L 3.5-5 3172489510) CL (test code = 99 mmol/L 98-108 9940832047) CO2 TOTAL (test code = 27 mmol/L 23-31 3793354119) AGAP (test code = 2-16 0853467389) BUN (test code = 10 mg/dL 7-23 7415566624) GLUCOSE (test code = 372 mg/dL 70-110 H 0247474555) CREATININE (test code = 0.96 mg/dL 0.6-1.25 1769493603) TOTAL BILI (test code = 0.4 mg/dL 0.1-1.0 3867721934) CALCIUM (test code = 9.2 mg/dL 8.6-10.6 9366019767) T PROTEIN (test code = 7.5 g/dL 6.3-8.2 4362256527) ALBUMIN (test code = 4.5 g/dL 3.5-5 2782851440) ALK PHOS (test code = 86 U/L 34-122 1080299080) ALTv (test code = 48 U/L 5-50 1742-6) AST(SGOT) (test code = 27 U/L 13-40 4189544985) eGFR Calculation mL/min/1.73m2 (Non-) (test code = 9021420110) eGFR Calculation mL/min/1.73m2 () (test code = 3794126260) KATE (test code = KATE) Association of Glomerular Filtration Rate (GFR) and Staging of Kidney Disease* + --+ --+ ------+| GFR (mL/min/1.73 m2) ?| With Kidney Damage ?| ?Without Kidney Damage+ --------+ --------+ +| ?>90 ?| ?Stage one ?| ? Normal ?+ ---+ ---+ -------+| ?60-89 ?| ?Stage two ?| ? Decreased GFR ? + --+ --+ ------+| ?30-59 ?| ?Stage three ?| ? Stage three ? + --+ --+ ------+| ?15-29 ?| ?Stage four ? | ? Stage four ?+ ---+ ---+ -------+| ?<15 (or dialysis) ? ?| ?Stage five ? | ? Stage five ?+ ---+ ---+ -------+ *Each stage assumes the associated GFR level has been in effect for at least three months. ?Stages 1 to 5, with or without kidney disease, indicate chronic kidney disease. Notes: Determination of stages one and two (with eGFR >59mL/min/1.73 m2) requires estimation of kidney damage for at least three months as defined by structural or functional abnormalities of the kidney, manifested by either:Pathological abnormalities or Markers of kidney damage (including abnormalities in the composition of the blood or urine or abnormalities in imaging tests). Lab Interpretation Abnormal (test code = 95941-0) [facility] WITH [id number] 21:06:00 Test Item Value Reference Range Interpretation Comments WBC (test code = See_Comment [Automated 0290-2) message] The sy stem which generated this result transmitted reference range : 4.20 - 10.70 10*3/?L. The reference range was not used to interpret this result as normal/abnormal . RBC (test code = See_Comment H [Automated 749-8) message] The sy stem which generated this result transmitted reference range : 4.26 - 5.52 10*6/?L. The reference range was not used to interpret this result as normal/abnormal . HGB (test code = 15.1 g/dL 12.2-16.4 718-7) HCT (test code = 45.2 % 38.4-49.3 4544-3) MCV (test code = 79.4 fL 81.7-95.6 L 787-2) MCH (test code = 26.5 pg 26.1-32.7 785-6) MCHC (test code = 33.4 g/dL 31.2-35 786-4) RDW-SD (test code = 36.3 fL 38.5-51.6 L 97432-0) RDW-CV (test code = 12.9 % 12.1-15.4 788-0) PLT (test code = See_Comment [Automated 777-3) message] The sy stem which generated this result transmitted reference range : 150 - 328 10*3/ ?L. The reference r jevon was not used to interpret this result as normal/abnormal . MPV (test code = 11.3 fL 9.8-13 24209-4) NRBC/100 WBC (test See_Comment [Automat ed code = 6495446010) message] The system which generated this result transmitted reference range : 0.0 - 10.0 /100 WBCs. The refer ence range was not u sed to interpret th is result as normal/abnormal . NRBC x10^3 (test code <0.01 See_Comment [Auto mated = 5669265737) message] The s ystem which generated this result transmitted reference range : 10*3/?L. The reference range was not used to interpret this result as normal/abnormal . GRAN MAT (NEUT) % 79.8 % (test code = 770-8) IMM GRAN % (test code 0.50 % = 8610025531) LYMPH % (test code = 13.4 % 736-9) MONO % (test code = 4.2 % 5905-5) EOS % (test code = 1.8 % 713-8) BASO % (test code = 0.3 % 706-2) GRAN MAT x10^3(ANC) 8.49 10*3/uL 1.99-6.95 H (test code = 0479669808) IMM GRAN x10^3 (test 0.05 10*3/uL 0-0.06 code = 0624489655) LYMPH x10^3 (test code 1.42 10*3/uL 1.09-3.23 = 731-0) MONO x10^3 (test code 0.45 10*3/uL 0.36-1.02 = 742-7) EOS x10^3 (test code = 0.19 10*3/uL 0.06-0.53 711-2) BASO x10^3 (test code 0.03 10*3/uL 0.01-0.09 = 704-7) Lab Interpretation Abnormal (test code = 02483-7) [facility] GLUCOSE (AUTOMATED)2019-11-06 13:38:00 Test Item Value Reference Range Interpretation Comments POCT GLU (test code = 7749518602) 116 mg/dL 70-110 H Lab Interpretation (test code = Abnormal 77239-2) [facility] GLUCOSE (AUTOMATED)2019-11-06 12:29:00 Test Item Value Reference Range Interpretation Comments POCT GLU (test code = 6757112240) 322 mg/dL 70-110 H Lab Interpretation (test code = Abnormal 72134-0) [facility] GLUCOSE (AUTOMATED)2019-11-06 12:29:00 Test Item Value Reference Range Interpretation Comments POCT GLU (test code = 3763135140) 230 mg/dL 70-110 H Lab Interpretation (test code = Abnormal 76041-2) [facility] GLUCOSE (AUTOMATED)2019-11-06 02:00:00 Test Item Value Reference Range Interpretation Comments POCT GLU (test code = 155 mg/dL 70-110 H Notifi ed Provider 4022825454) Lab Interpretation (test Abnormal code = 71713-1) [facility] [id number] 00:02:00 Test Item Value Reference Range Interpretation Comments Case Report (test code Surgical Pathology ? ? = 9504935067) ?Case: [id number] ? Authorizing Provider: ?Yonatan Lund MD ? ? ? Collected: ? 11/03/2019 1426 ?Ordering Location: ? ? [facility] ? ? ?Received: ?11/03/2019 1555 ? [facility] Center ?Pathologist: ? Klaus Tinoco MD ? Specimen: ? ?APPENDIX, appendix ? Final Diagnosis (test p9ublMDtNQQkt2hcWCDjvI code = 3621116933) FuZzEwMzNcZnRuYmpcdWMx RGajdgHpPGaqg8QfJ5LkXx AwMFxhbnNpXGRlZmxhbmcx RRBiCLV0jbEnCYCcFViqMS JaZKajCg3pnPAoiTcvIiLz UHYzm6vlhqUZjcpvaPy2d0 jkKXAxNrL1oVLzOIycG6un kfQumFUfARZjIKl6jX91FW WwtU6fkVOzVQxuilAjCRvx ghCmvkHcPnh8JJLcX3iaUI CnBXZdD1YsMM3oFPNxAxh5 ZCO3JTU7iWhxg8Y1bJFoxI KglNlzArVqFoHkOHNXs4Uw ARw6kOntT4EjPCDaKqA6wG QgUGFyYWdyYXBoIEZvbnQ7 zB16PKqqkuP7cYRxh4Tpv4 0tt036rY5xiOCvXAX0XMSx VGXeyANmBACmDRY0IAWwpU GzC4nkLVknLJ5ybyxfJBS2 MFxtYXJndDcyMFxtYXJnYj IfnTStXUFotRufZMiic268 JLM1RxMdTC2wV1Ryz2W9zN 9maXRcZGVmdGFiNzIwXGZv ga8roAQmDGkme0OnYJS5ic W7dGPacAIrWIEfOP26Hokf b3DsYevqIOG2EKPdlgJxp5 Qjm4wiNyCffmRqI9nmV3Oe ZHJoZWFkXHBnYnJkcmZvb3 Pmj1NkiXJinGd9a3rnWYUb YHYjcPbyy8ncXKI0QMHnN7 Z5gWCrr6kdJOajQVOdrCT7 cqRsGKFleVNxC9DfaJ9dZO wbIM0kwes4t8nbXoNrMS6r mzyez9pxTQdaXXIzUUT3Zk GzTOVzc0OofyqmSsIwn2In sLSpHXjhY21hs297RRHskl YqF5covDGbapczcAVmgcgb MFxmczIwXHFsXHBsYWluXG QgCATbMgHewIdqfZ9dWvAs ZnMyMFxwYXJccGFyZFxwbG FpblxmMFxmczIwXHBsYWlu EPXzYOXwXmUxIQ0iSSEBIT 8STHdvEINLUURWXVXPWJ7E WTpccGFyXHFsXHBsYWluXG BbEPTjKjCrrQnlwB4xHaZo MyRhHOHbAHVtOG2mPLPVLF LqFPHVTB8YFEJJLZnNHYlY UKbhEABLGI1WBYMRAoMOM3 lUSVNccGFyXHBhciBNYXR0 jLX6YJVuqSZtOIYQXOczSW JftUmynE5pYyLpAlJuCfer GD4uLZGjK2iglOHxFDTlAT TeL6zlFmNysX1pwOlnBOhv ZjFcZnMyMiBIYXJzaHdhcm IzZS6eNSupx9RfOMLBHNXl Cn2iLG1fDFOzXZX9NiKlKU BNXHBsYWluXGYxXGZzMjBc aHPgqGsbxaTvZOysi7XiN0 YyMjAwMFxhbnNpXGRlZmxh fxqoAUBgHWO0ksCuWAYmCR ayGMNxMMazHl9kmZHntEdu ObSlQJVdm2dwkbHRYKclEk ZzA143UGMwCIdvv6wnd7Fj HFLbaJFxy8O2NQTRidumeG b2u9wbArMmLwD4hTWxFSot F0qdjgDoqXGyA1ZmiVPkjK y3gAawJ62hz3I5WddlZ2ii EIEnEJAeY3MjAI6vTUYzFa p2DEP7SHF1JSZeVPItS8Gc QS2aZIDxgVQbBCm6y3xmtL idYDHwAAJ1c0ozHKqokkH5 UU9ykb9waDp5o5qcooLpQM LbWBQmlPTTWPYaS1KdzIeb Zv1icZk2lOqxUzgdLXY6Bu o0US9gpp59vze7tAceAFBq kekuSlH8ILvaNBTlpcadFY b2URfaPLQuzEK3RUMevUXl Z1LnRCRaBQ3rgch8YJW1HM bbVMIjAeL3PVVczGXpDALg dOatHXjwv197POW3MsQxTG 6tE5Gzq4L3zZ7xxNTzASLe rTViJxIaSPWzse8shZDrFH kil0SpJVW0leN2tIKptJTk SCDrSN68Wbokx7GgTgssYO F8LBLobqGhj9Jkf1kjWpVu kyTiZ0neJ2PtXVEzGYDzIA SaNdKqvsOho6Asy6FuoIGh nBz0n9wpTILiTAHwoYgxl3 neIIX0RCMfC8O9bEUos8lx LNbnMABiiDR5gdM2NWHykY QxI4WbdL1nZFJyCJ3usmf2 j8dwAMQ0GHheQQUyKsH5qd T3LQWxeWEeZGUttGkgLYzx p315MBV8PbJiPKAtf9DqG6 XhjZpgT51knTfvK29sQJFd jByywU1rhCqftT6oDwTvDl MyNFxxbFxwbGFpblxmMVxm czIwXGxhbmcxMDMzXGhpY2 elNiUhUBFofEscQMtom7Vm XGYxXGNmMlxmczIwXHBhci YMQPogyoHdvHMxr53jGFyf eSByZXZpZXdlZCBhbGwgc3 DmV3xlOE0eB6BpnVPlftLm jyQsAAskNCHrn7a7tVOmdI jga1VxtYVdRC57uyDjNLMy TVH7ICFii5fmSU59echlPq VkmI74ibJrkrJuPLDej2bh V0avwIWtn0Biy4QcodAdRY hbs3DcAE8dzTUndfmorDS7 KUYisPYiqcCfgoE4mEozZJ MtvE5tcQ5ouZafyH7oHmFw IoEyLCreKI8iPBQdW6omnI RkGTUuMGPzB2rwZaZjpW2z wOpuIeyontA8MKDzxo29 Clinical Information Acute abdomen (test code = 6532994742) Gross Description (test t0gpdUIhORSfzDHpBcDtKV code = 7451699104) FmJROad7coEAVhjMPhPaXs MzNcZnRuYmpcdWMxXGRlZm Hfl2jsh416uSSbn1jiDKBm VyO5nMOoWUMnmQBaX907IB EcPNzyj5epp7KiCMIuiCRo d5I2VZWCsnxkbSl9tAvjR3 1ml6I0IctuN5guXXBoDMni OSOuLPdzaMLkUIG4ZCDbCA V2UTvokuAfcnR9PKxnbZUs IhY3YEb4k3cwcOojVLWeDF Y3h4frDSpbddSwFR4gym1w wNu1r1rlgvQyFZSmUEUdeM TFEHHhH9HimLzkWm5zvLf8 hMvwDtqiVKD5Ixq3JK9nar 06ejw9kLoyPOIwegfbKrO4 JYxrJGWtwsbmIUk8NRkcPC IufMKhCPVxaPIxC0WnQDfz WI8asmh8XgVgKM4jtgqaQS ebJCUjTLZ6GyNsSQDqa2Yw jmqbIxIidv2bhc69PGQ6a0 PrtEjeIYX9YRC6YsUyPo3l fDRyVFFkTO5eXtOtfMThMG Znbb47mPuvJZlyffPszC4s ZhZvIXEcpXVzEALiTP0meE TzFDLhkW0sacyjMBMxZlNd zetkXYBaxHvmtyIvVw2ceN lvVMP2GJofB8eyiA9iHfE1 WDzwQ0eerM6wXWk0ROwaqJ K3WUJnrQ0dVH0pkxjth8lx XEH8YXqmLTDlylC9yxTuPO ZkwTZmZ7TvoN85OsHziTTe P6KsqE8iEPdaCFGwsmk9Qh ZmUe8taKNnjXK9MBdlHcdv YWdlXHBnbmNvbnRccGduZG VjXHBsYWluXHBsYWluXGYw MHElLbXfd6JuPWDkj6goEk Djr4hojWl9YVuvgBeobKUk blxmMFxmczIwXHBsYWluXG MlMJMfUyLhE2IvF3ecLW0e QSBpcyByZWNlaXZlZCBpbi Ray4ZnOKytffOiNPJdbYaf YWW1nNToDFJvFGXqNEXcFO 50XHBsYWluXGYxXGZzMjBc xVniNSyhWHh5XazmlSJkea xmMVxmczIwIHMgbmFtZSwg VUggbnVtYmVyICJhcHBlbm RpeFxwbGFpblxmMVxmczIw FIT7CyErEQulJWBirMjbeC 5uExTiYoZbEYDjIH9aWNWa xfPtm7YrZR9fENTiyOknpe 26XG1lpbReiQlmc2ZrYJAn iCAvUSd6OAl5SxjbO45zlU 2qhSFlW5VzARivAU55ZGXo OCBjbSBpbiBkaWFtZXRlci qit8f6rBIcgSEwN1nfOAP2 BGtny6mkiJ4koKmjxNFiUA Opg2R6yVCuNRQfOWPoPQZf LK6unKfaSWSiSWP7ZUNmGJ J1DZAmKSRsrSwhQMIQuNOt JHAlKL9cwSdyt7Uwj9GbJW ocf9GhPKClcxF8sBIkZOE8 vKVqrGZmYIKiyzDqsFP0jS VudCBleHVkYXRlLiBUaGUg FWLqEZ5gjLrwrYSrg0EimF AywGhyr7WpdAnouoZlVSQg IHJldmVhbCBhIHBhdGVudC BwoE9tdtjqxnDgI5qjAeFv ef6pXZJbzxMbpD38UBTyMH IoQoMupDydT43bwQLbffpc RyInA3BlkYOjBY3uapQiGP dlLiAgVGhlIHdhbGwgdGhp N4opLQKdQGShpiknizWemu 6vLZJnGX8jUzPhV76eXJKs cnVwdHVyZSBzaXRlIGlzIG fga8QnbRhnlCWjniOvRdty WYucAP7aUAHwXGQlz14jzR ttNC80X12uFIznqaZnJQE0 aH7nFK3brnjjwo3eTqRzsk HuEZ12QOOdakYhw3YpaGrw bmJhd3xtE7ujoH6doESuPX Wujs6pbjDdLBU5pT2yiadl mIrsNVPltDOndN9nNZUafg SeHTZ8dH4cJU4ekzrbwfOh bmQgZGlzdGFsIHRpcCBhcm Yzk3ZieOv7nPWnLBfuCSZj LUEyLlxwYXJccGFyZFxwbG FpblxmMFxmczIwXHBsYWlu XGYxXGZzMjAgSnVsaWUgTW EIiWfzwqA4QUUKUEorKQX6 Embedded Images (test code = [id number]) [facility] GLUCOSE (AUTOMATED)2019-11-05 22:19:00 Test Item Value Reference Range Interpretation Comments POCT GLU (test code = 9930863145) 115 mg/dL 70-110 H Lab Interpretation (test code = Abnormal 78061-8) [facility] GLUCOSE (AUTOMATED)2019-11-05 18:23:00 Test Item Value Reference Range Interpretation Comments POCT GLU (test code = [id number]) 197 mg/dL 70-110 H Lab Interpretation (test code = Abnormal 63022-6) [facility] GLUCOSE (AUTOMATED)2019-11-05 17:33:00 Test Item Value Reference Range Interpretation Comments POCT GLU (test code = [id number]) 125 mg/dL 70-110 H Lab Interpretation (test code = Abnormal 72151-2) [facility] GLUCOSE (AUTOMATED)2019-11-05 13:28:00 Test Item Value Reference Range Interpretation Comments POCT GLU (test code = 0452365718) 130 mg/dL 70-110 H Lab Interpretation (test code = Abnormal 56602-0) [facility] METABOLIC PANEL (NA, K, CL, CO2, GLUCOSE, BUN, CREATININE, CA)2019-11-05 12:11:00 Test Item Value Reference Range Interpretation Comments NA (test code = 137 mmol/L 135-145 3455356166) K (test code = 3.6 mmol/L 3.5-5 0306366406) CL (test code = 100 mmol/L 98-108 7677966105) CO2 TOTAL (test code = 30 mmol/L 23-31 7378559800) AGAP (test code = 2-16 1899568466) BUN (test code = 14 mg/dL 7-23 1116021678) GLUCOSE (test code = 164 mg/dL 70-110 H 0664416063) CREATININE (test code = 0.81 mg/dL 0.6-1.25 1318783989) CALCIUM (test code = 8.6 mg/dL 8.6-10.6 1180630415) eGFR Calculation mL/min/1.73m2 (Non-) (test code = 8022239278) eGFR Calculation mL/min/1.73m2 () (test code = 5170742872) KATE (test code = KATE) Association of Glomerular Filtration Rate (GFR) and Staging of Kidney Disease* + --+ --+ ------+| GFR (mL/min/1.73 m2) ?| With Kidney Damage ?| ?Without Kidney Damage+ --------+ --------+ +| ?>90 ?| ?Stage one ?| ? Normal ?+ ---+ ---+ -------+| ?60-89 ?| ?Stage two ?| ? Decreased GFR ? + --+ --+ ------+| ?30-59 ?| ?Stage three ?| ? Stage three ? + --+ --+ ------+| ?15-29 ?| ?Stage four ? | ? Stage four ?+ ---+ ---+ -------+| ?<15 (or dialysis) ? ?| ?Stage five ? | ? Stage five ?+ ---+ ---+ -------+ *Each stage assumes the associated GFR level has been in effect for at least three months. ?Stages 1 to 5, with or without kidney disease, indicate chronic kidney disease. Notes: Determination of stages one and two (with eGFR >59mL/min/1.73 m2) requires estimation of kidney damage for at least three months as defined by structural or functional abnormalities of the kidney, manifested by either:Pathological abnormalities or Markers of kidney damage (including abnormalities in the composition of the blood or urine or abnormalities in imaging tests). Lab Interpretation Abnormal (test code = 33353-1) [facility] WITH [id number] 11:39:00 Test Item Value Reference Range Interpretation Comments WBC (test code = See_Comment [Automated 0245-2) message] The sy stem which generated this result transmitted reference range : 4.20 - 10.70 10*3/?L. The reference range was not used to interpret this result as normal/abnormal . RBC (test code = See_Comment [Automated 199-8) message] The sy stem which generated this result transmitted reference range : 4.26 - 5.52 10*6/?L. The reference range was not used to interpret this result as normal/abnormal . HGB (test code = 14.2 g/dL 12.2-16.4 718-7) HCT (test code = 42.9 % 38.4-49.3 4544-3) MCV (test code = 82.3 fL 81.7-95.6 787-2) MCH (test code = 27.3 pg 26.1-32.7 785-6) MCHC (test code = 33.1 g/dL 31.2-35 786-4) RDW-SD (test code = 38.7 fL 38.5-51.6 13267-9) RDW-CV (test code = 13.0 % 12.1-15.4 788-0) PLT (test code = See_Comment [Automated 777-3) message] The sy stem which generated this result transmitted reference range : 150 - 328 10*3/ ?L. The reference r jevon was not used to interpret this result as normal/abnormal . MPV (test code = 11.5 fL 9.8-13 44276-9) NRBC/100 WBC (test See_Comment [Automat ed code = 3681279985) message] The system which generated this result transmitted reference range : 0.0 - 10.0 /100 WBCs. The refer ence range was not u sed to interpret th is result as normal/abnormal . NRBC x10^3 (test code <0.01 See_Comment [Auto mated = 5276860454) message] The s ystem which generated this result transmitted reference range : 10*3/?L. The reference range was not used to interpret this result as normal/abnormal . GRAN MAT (NEUT) % 83.5 % (test code = 770-8) IMM GRAN % (test code 0.30 % = 7731259517) LYMPH % (test code = 9.3 % 736-9) MONO % (test code = 5.7 % 5905-5) EOS % (test code = 1.1 % 713-8) BASO % (test code = 0.1 % 706-2) GRAN MAT x10^3(ANC) 7.74 10*3/uL 1.99-6.95 H (test code = 3521247062) IMM GRAN x10^3 (test 0.03 10*3/uL 0-0.06 code = 3033258554) LYMPH x10^3 (test code 0.86 10*3/uL 1.09-3.23 L = 731-0) MONO x10^3 (test code 0.53 10*3/uL 0.36-1.02 = 742-7) EOS x10^3 (test code = 0.10 10*3/uL 0.06-0.53 711-2) BASO x10^3 (test code <0.03 0.01-0.09 = 704-7) Lab Interpretation Abnormal (test code = 21154-1) [facility] GLUCOSE (AUTOMATED)2019-11-05 10:22:00 Test Item Value Reference Range Interpretation Comments POCT GLU (test code = 6674632038) 149 mg/dL 70-110 H Lab Interpretation (test code = Abnormal 35106-7) [facility] GLUCOSE (AUTOMATED)2019-11-05 06:15:00 Test Item Value Reference Range Interpretation Comments POCT GLU (test code = 1849260159) 204 mg/dL 70-110 H Lab Interpretation (test code = Abnormal 52687-3) [facility] GLUCOSE (AUTOMATED)2019-11-05 01:48:00 Test Item Value Reference Range Interpretation Comments POCT GLU (test code = 7568698527) 227 mg/dL 70-110 H Lab Interpretation (test code = Abnormal 99953-5) [facility] GLUCOSE (AUTOMATED)2019-11-04 22:30:00 Test Item Value Reference Range Interpretation Comments POCT GLU (test code = 2106622935) 132 mg/dL 70-110 H Lab Interpretation (test code = Abnormal 02712-7[facility]00 Test Item Value Reference Range Interpretation Comments POCT GLU (test code = 3799428231) 213 mg/dL 70-110 H Lab Interpretation (test code = Abnormal 25115-3) [facility] GLUCOSE (AUTOMATED)2019-11-04 13:31:00 Test Item Value Reference Range Interpretation Comments POCT GLU (test code = 5621151212) 203 mg/dL 70-110 H Lab Interpretation (test code = Abnormal 61699-7) [facility] GLUCOSE (AUTOMATED)2019-11-04 12:03:00 Test Item Value Reference Range Interpretation Comments POCT GLU (test code = 5458418657) 213 mg/dL 70-110 H Lab Interpretation (test code = Abnormal 16357-2) [facility]2019-11-03 23:50:00 Test Item Value Reference Interpretation Comments Range HGB A1C (test code = See_Comment H [Autom ated 4548-4) message] The system which generated this result transmitted reference range : 4.0 - 6.0 % NGSP. The reference range was not used to interpret this result as normal/abnormal . KATE (test code = %A1C (NGSP) KATE) Interpretation (ADA)4.8-5.6 ? ? Normal or (Non-Diabetic Range)5.7-6.4 ? ? Increased Risk (Pre-Diabetic)>6.5 ?Diabetes Indicated Lab Interpretation Abnormal (test code = 17205-1) [facility]-11-03 23:28:00 Test Item Value Reference Range Interpretation Comments POCT GLU (test code = 8664529892) 273 mg/dL 70-110 H Lab Interpretation (test code = Abnormal 50763-1) [facility] W [id number] 18:01:52CT Abdomen and Pelvis with intravenous contrast. CLINICAL HISTORY: Abdominal infection including peritonitis. DOSE: Up-to-date CT equipment and radiation dose reduction techniques wereemployed. CTDIvol: 15.15 mGy. DLP: 901 mGy-cm. TECHNIQUE : Contiguous axial imaging from the level of the lung basesth rough the pubic symphysis were performed after the uncomplicatedadministration of Omnipaque contrastmaterial. Coronal and sagittalreconstructions were obtained. Auto mA and/or iterative reconstructionwereused to reduce radiation dose. FINDINGS: ? Lower lungs: Minimal congestion in the right lower lung. No pleuraleffusion or pericardial effusion. Short sliding hiatal hernia notedsurrounded by herniated intra-abdominal fat in the lower posteriormediastinum. Liver, Gallbladder and Spleen: The liver is enlarged, 24.5 cm in lengthwith mild diffuse hepatic steatosis. Spleen measures approximately 13.5 x3.7 cm. No enhancing lesions are seen in the liver or in the spleen. Nocalcified gallstones. Biliaryducts and the pancreatic duct appear ofnormal size. 15 mm accessory splenule noted near the hilum ofthe spleen. Peritoneum: ?No free air or free fluid. No lymphadenopathy. Pancreas and Adrenals: ?Unrem arkable pancreas and adrenal glands. Kidneys and Ureters: ?No visible calculi in the renal collecting systems. No hydroureter or hydronephrosis. Vessels: Unremarkable. Incidental note made of 2 left renal arteriesarising from the abdominal aorta. Retroperitoneum: No abnormal fluid or lymphadenopathy.Bowel: Congestion of the fat noted in the right lower quadrant of theabdomen, surrounding slightly dilated and inflamed appendix. No perforationor periappendiceal abscess. Minimal fluid noted in the cul-de-sac. Bladder and Reproductive Organs: Urinary bladder is not opacified by theintravenously inject ed contrast medium. No gross pathology seen in theunopacified urinary bladder. Bones: Lower thoracickyphosis, slightly exaggerated lumbar lordosis,Schmorl's nodes in multiple thoracic and lumbar vertebral endplates, likelysecondary to axial loading trauma. Wedge-shaped compression deformity alsonotedin several lower thoracic vertebral bodies.Mild bilateral hip joint arthritis is noted, more on the right side. Shapeof the neck and head of both femurs suggests bilateral femoroacetabularimpingement. Soft tissues: Multiple lymph nodes in the superficial inguinal region onboth sides, likely incidentalreactive nonspecific adenopathy. CONCLUSION:1. Moderate uncomplicated acute appendicitis.2. Hepatospl enomegaly.3. Sliding hiatal hernia. PS: This case was discussed with Dr. Rhoades in the emergency room at 12:00. [facility] [place] Results Inft User - 11/03/2019 12:02 PM CSTCT Abdomen and Pelvis with intravenous contrast.CLINICAL HISTORY: Abdominal infection including peritonitis.DOSE: Up-to-date CT equipment and radiation dose reduction techniques wereemployed. CTDIvol: 15.15 mGy. DLP: 901 mGy-cm.TECHNIQUE : Contiguous axial imaging from the level of the lung basesthrough the pubic symphysis were performed after the uncomplicatedadministration of Omnipaque contrast material. Coronal and sagittalreconstructions were obtained. Auto mA and/or iterative reconstruction wereused to reduce radiation dose.FINDINGS: Lower lungs: Minimal congestion in the right lower lung. No pleuraleffusion or pericardial effusion. Short sliding hiatal hernia notedsurrounded by herniated intra-abdominal fat in the lower posteriormediastinum.Liver, Gallbladder and Spleen: The liver is enlarged, 24.5 cm in lengthwith mild diffuse hepatic steatosis. Spleen measures approximately 13.5 x3.7 cm. No enhancing lesions are seen in the liver or in the spleen. Nocalcified gallstones. Biliary ducts and the pancreatic duct appear ofnormal size. 15 mm accessory splenule noted near the hilum of the spleen.Peritoneum: No free airor free fluid. No lymphadenopathy.Pancreas and Adrenals: Unremarkable pancreas and adrenal glands.Kidneys and Ureters: No visible calculi in the renal collecting systems. No hydroureter or hydronephrosis. Vessels: Unremarkable. Incidental note made of 2 left renal arteriesarising from the abdominalaorta.Retroperitoneum: No abnormal fluid or lymphadenopathy.Bowel: Congestion of the fat noted in the right lower quadrant of theabdomen, surrounding slightly dilated and inflamed appendix. No perforationor periappendiceal abscess. Minimal fluid noted in the cul-de-sac.Bladder and Reproductive Organs:Urinary bladder is not opacified by theintravenously injected contrast medium. No gross pathology seen in theunopacified urinary bladder.Bones: Lower thoracic kyphosis, slightly exaggerated lumbar lordo sis,Schmorl's nodes in multiple thoracic and lumbar vertebral endplates, likelysecondary to axial loading trauma. Wedge-shaped compression deformity alsonoted in several lower thoracic vertebral bodies.Mild bilateral hip joint arthritis is noted, more on the right side. Shapeof the neck and head of both femurs suggests bilateral femoroacetabularimpingement.Soft tissues: Multiple lymph nodes in the superficial inguinal region onboth sides, likely incidental reactive nonspecific adenopathy.CONCLUSION:1. Moderate uncomplicated acute appendicitis.2. Hepatosplenomegaly.3. Sliding hiatal hernia.PS: This case was discussed with Dr. Rhoades in the emergency room at 12:00.[facility] 16[facility]23:00 Test Item Value Reference Range Interpretation Comments APPEARANCE (test code = Clear Clear 8099243056) COLOR (test code = Yellow Yellow 8297012903) PH (test code = 4.8-8.0 6577328137) SP GRAVITY (test code = 1.003-1.030 7486116075) GLU U QUAL (test code = 500 mg/dL Normal A 0785062056) BLOOD (test code = Negative Negative 8785769338) KETONES (test code = Negative Negative 7242014593) PROTEIN (test code = Negative Negative 2887-8) UROBILIN (test code = Normal Normal 9530830463) BILIRUBIN (test code = Negative Negative 0253484717) NITRITE (test code = Negative Negative 8513347327) LEUK BIANCA (test code = Negative Negative 5846197122) RBC/HPF (test code = See_Comment [Autom ated message] 3187498833) The system [employer] generated this result transmit yelena reference range : 0 - 3 HPF. The refe rence range was not u sed to interpret th is result as normal/abnormal . WBC/HPF (test code = See_Comment [Autom ated message] 4235197822) The system [employer] generated this result transmit yelena reference range : 0 - 5 HPF. The refe rence range was not u sed to interpret th is result as normal/abnormal . BACTERIA (test code = Negative Negative 5174954569) MUCOUS (test code = Slight Negative LPF A 1026990611) SQ EPITH (test code = <1 HPF 1887432117) Lab Interpretation (test Abnormal code = 52021-9) [facility] 16:04:00 Test Item Value Reference Range Interpretation Comments NA (test code = 137 mmol/L 135-145 2641364690) K (test code = 4.3 mmol/L 3.5-5 6230677295) CL (test code = 98 mmol/L 98-108 4487813773) CO2 TOTAL (test code = 28 mmol/L 23-31 4102694005) AGAP (test code = 2-16 4218644516) BUN (test code = 11 mg/dL 7-23 3033820193) GLUCOSE (test code = 356 mg/dL 70-110 H 3355111272) CREATININE (test code = 1.01 mg/dL 0.6-1.25 0513319694) TOTAL BILI (test code = 0.9 mg/dL 0.1-1.3 3995821465) CALCIUM (test code = 9.1 mg/dL 8.6-10.6 5776518952) T PROTEIN (test code = 7.5 g/dL 6.3-8.2 7936537943) ALBUMIN (test code = 4.7 g/dL 3.5-5 5789164640) ALK PHOS (test code = 73 U/L 34-122 1494738613) ALTv (test code = 38 U/L 5-50 1742-6) AST(SGOT) (test code = 25 U/L 13-40 2277634569) eGFR Calculation mL/min/1.73m2 (Non-) (test code = 1839636654) eGFR Calculation mL/min/1.73m2 () (test code = 3601406097) KATE (test code = KATE) Association of Glomerular Filtration Rate (GFR) and Staging of Kidney Disease* + --+ --+ ------+| GFR (mL/min/1.73 m2) ?| With Kidney Damage ?| ?Without Kidney Damage+ --------+ --------+ +| ?>90 ?| ?Stage one ?| ? Normal ?+ ---+ ---+ -------+| ?60-89 ?| ?Stage two ?| ? Decreased GFR ? + --+ --+ ------+| ?30-59 ?| ?Stage three ?| ? Stage three ? + --+ --+ ------+| ?15-29 ?| ?Stage four ? | ? Stage four ?+ ---+ ---+ -------+| ?<15 (or dialysis) ? ?| ?Stage five ? | ? Stage five ?+ ---+ ---+ -------+ *Each stage assumes the associated GFR level has been in effect for at least three months. ?Stages 1 to 5, with or without kidney disease, indicate chronic kidney disease. Notes: Determination of stages one and two (with eGFR >59mL/min/1.73 m2) requires estimation of kidney damage for at least three months as defined by structural or functional abnormalities of the kidney, manifested by either:Pathological abnormalities or Markers of kidney damage (including abnormalities in the composition of the blood or urine or abnormalities in imaging tests). Lab Interpretation Abnormal (test code = 77145-4) [facility] 16:03:00 Test Item Value Reference Range Interpretation Comments LIPASE (test code = 8996678181) 48 U/L 0-220 Lab Interpretation (test code = Normal 43792-7) [facility] WITH [id number] 15:51:00 Test Item Value Reference Range Interpretation Comments WBC (test code = See_Comment H [Automated 6690-2) message] The system which generated this result transmit yelena reference range : 4.20 - 10.70 10*3/?L. The reference range was not used to interpret this result as normal/abnormal . RBC (test code = See_Comment H [Automated 789-8) message] The system which generated this result transmit yelena reference range : 4.26 - 5.52 10*6/?L. The reference range was not used to interpret this result as normal/abnormal . HGB (test code = 15.5 g/dL 12.2-16.4 718-7) HCT (test code = 47.4 % 38.4-49.3 4544-3) MCV (test code = 81.7 fL 81.7-95.6 787-2) MCH (test code = 26.7 pg 26.1-32.7 785-6) MCHC (test code = 32.7 g/dL 31.2-35 786-4) RDW-SD (test code = 37.8 fL 38.5-51.6 L 07486-7) RDW-CV (test code = 12.7 % 12.1-15.4 788-0) PLT (test code = See_Comment [Automated 777-3) message] The system which generated this result transmit yelena reference range : 150 - 328 10*3/ ?L. The reference range was not u sed to interpret th is result as normal/abnormal . MPV (test code = 10.9 fL 9.8-13 72890-9) NRBC/100 WBC (test See_Comment [Automat ed code = 6946803610) message] The system which generated this result transmit yelena reference range : 0.0 - 10.0 /100 WBCs. The reference range was not used to interpret this result as normal/abnormal . NRBC x10^3 (test code <0.01 See_Comment [Auto mated = 6676918720) message] The system which generated this result transmit yelena reference range : 10*3/?L. The reference range was not used to interpret this result as normal/abnormal . GRAN MAT (NEUT) % 91.5 % (test code = 770-8) IMM GRAN % (test code 0.50 % = 2164363953) LYMPH % (test code = 3.9 % 736-9) MONO % (test code = 3.8 % 5905-5) EOS % (test code = 0.1 % 713-8) BASO % (test code = 0.2 % 706-2) GRAN MAT x10^3(ANC) 12.89 10*3/uL 1.99-6.95 H (test code = 7233069244) IMM GRAN x10^3 (test 0.07 10*3/uL 0-0.06 H code = 1152250090) LYMPH x10^3 (test code 0.55 10*3/uL 1.09-3.23 L = 731-0) MONO x10^3 (test code 0.54 10*3/uL 0.36-1.02 = 742-7) EOS x10^3 (test code = <0.03 0.06-0.53 L 711-2) BASO x10^3 (test code 0.03 10*3/uL 0.01-0.09 = 704-7) Lab Interpretation Abnormal (test code = 35263-5) [facility]"
== END 2021-07-19 22:55 | disposition home or self-care (01) ==
LOC: ER 19:27
DX: G43.119 Migraine with aura, intractable, without status migrainosus (principal); E11.65 Type 2 diabetes mellitus with hyperglycemia; Z79.4 Long term (current) use of insulin; Z20.822 Contact with and (suspected) exposure to COVID-19
CPT/HCPCS: 96361; 85025; 36415; 80053; 96375; 96374; 99284; U0003; J2765; J1200; J1170; J7030

== ENCOUNTER 2021-08-05 11:24 | Emergency (ER) | payer OTHER ==
--- OUTSIDE RECORDS SUMMARY | 2021-08-05 11:28 | XMS REPORT | Continuity of Care Document ---
:1970 Author Organization [facility] t Address [address] [place] [address] Care Team Providers Name Role Phone ANENE Attending Clinician Unavailable Luz Maria Bernal MD Attending Clinician LUZ MARIA BERNAL Attending Clinician Unavailable LUZ MARIA BERNAL Attending Clinician Unavailable Cassy Ashby Attending Clinician CASSY APPLE Attending Clinician Unavailable Doctor Unassigned, Name Attending Clinician Unavailable David MILLER S Attending Clinician Fidencio Attending Clinician Jf ECHEVERRIA Attending Clinician Pavithra ECHEVERRIA Attending Clinician PAVITHRA Attending Clinician Unavailable Pavithra ECHEVERRIA Admitting Clinician PAVITHRA Admitting Clinician Unavailable Problems Condition Condition Condition Status Onset Resolution Last Treating Co mments Source Name Details Category Date Date Treatment Clinician Date Abdominal Abdominal Disease Active 2019- Uni vers pain pain 2-20 ity of 00:00: [address] Branch Obesity Obesity Disease Active Univers (BMI (BMI 2-19 ity of 30-39.9) 30-39.9) 00:00: [address] Acute Acute Disease Active 2019- Univers postoperat postoperat 2-19 it y of momo momo 00:00: [place] abdominal abdominal 00 Medi kyrie pain pain [...] 00 Medical Branch SULFA DRUG Active Hives Univers DYNE 8-10 ity of 00:00: [place] 00 Medical Branch Sulfa Propensi Active Hives Univers Dyne ty to 8-10 ity of adverse 00:00: [place] reaction 00 Medical s Branch Social History Social Habit Start Date Stop Date Quantity Comments Source Exposure to Not sure [facility] SARS-CoV-2 [place] [facility] (event) Branch Sex Assigned At [facility] [place] [facility] Tobacco use and 2020-04-24 2020-04-24 Never used Universit y of exposure 00:00:00 00:00:00 [facility] Branch Alcohol intake 2020-04-24 2020-04-24 Current drinker Unive rsity of 00:00:00 00:00:00 of alcohol [facility] (finding) Branch History SDOH 2019-11-03 2019-11-03 5 University o f Financial 00:00:00 00:00:00 [facility] Branch Smoking Status Start Date Stop Date Source Former smoker 2020-04-24 00:00:00 2020-04-24 00:00:00 [facility] [place] [facility] Medications Ordered Filled Start Stop Current Ordering Indication Dosage Frequency Signature Comments Components Source Medication Medication Date Date Medication? Clinician (SIG) Name Name divalproex 2020-0 Yes [id number] 250mg Take 1 Univers ER 250 mg 8-10 tablet by ity o f 24 hr 00:00: mouth 2 [place] tablet 00 (two) Medical times [place] daily. divalproex 2020-0 Yes [id number] 250mg Take 1 Univers ER 250 mg 8-10 tablet by ity o f 24 hr 00:00: mouth 2 [place] tablet 00 (two) Medical times [place] daily. water for 2020-0 Yes PRN, Univers irrigation -24 Starting ity o f irrigation 03:19: Angelina [place] solution 00 04/06/20 at Medic al 2218, [place] Until Discontinu ed, Routine, Intra-op simethicone 2020-0 Yes PRN, Univer s (GAS RELIEF -24 Starting ity of (SIMETHICON 03:19: Angelina [place] E)) 40 00 04/06/20 at Medical mg/0.6 mL 2218, [place] drops Until Discontinu ed, Routine, Intra-op glucagon 2019-0 2020- No 1mg 1 mg, Univers (GLUCAGEN 04-07 07-24 Intravenou ity of DIAGNOSTIC 02:45: 01:56 s, ONCE, 1 [place] KIT) 00 :00 dose, Angelina Medical injection 1 04/06/20 at Br anch mg 2144, Routine glucagon 2019-0 2020- No 1mg 1 mg, Univers (GLUCAGEN 04-07 07-24 Intravenou ity of DIAGNOSTIC 01:45: 00:47 s, ONCE, 1 [place] KIT) 00 :00 dose, Angelina Medical injection 1 04/06/20 at Br anch mg 2044, Routine HYDROcodone 2020-0 2020- No 1{tbl} 1 tablet, Univers -acetaminop 02-19 06-07 Oral, ity of hen (NORCO 01:15: 00:11 ONCE, 1 Danie as 5) 5-325 mg 00 :00 dose, Sat Med ical tablet 1 02/19/20 at [place] tablet 2015, MANDEEP NaCl 0.9% 2020-0 2020- No 1000mL at 999 Uni vers (NS) bolus 6- 06-06 mL/hr, ity of infusion 23:00: 23:28 1,000 mL, Danie as 1,000 mL 00 :00 IV Medical Infusion, Branch ONCE, 1 dose, 02/19/20 at 1800, STAT morpHINE 2020-0 2020- No 4mg 4 mg, Slow Un grabiel injection 4 02-18 IV Push, ity of mg 23:00: 22:01 ONCE, 1 [place] 00 :00 dose, Sat Medical 02/19/20 at Branch 1800, STAT insulin 2019-0 2020- No 10U 10 Units, Univ ers regular 02-18 Subcutaneo ity o f human 22:45: 21:54 us, ONCE, [place] (HUMULIN R) 00 :00 1 dose, Medic al injection 02/19/20 Bran ch 10 Units at 1745, STAT NaCl 0.9% 2019- No 1000mL at 999 Uni vers (NS) bolus 02-18 mL/hr, ity of infusion 21:45: 23:27 1,000 mL, Danie as 1,000 mL 00 :00 IV Medical Infusion, [place] ONCE, 1 dose, 02/19/20 at 1645, STAT ondansetron 2019-0 2020- No 4mg 4 mg, Slow Univers (ZOFRAN 02-18 IV Push, ity of (PF)) 21:45: 20:51 ONCE, 1 [place] injection 4 00 :00 dose, Sat Med ical mg 02/19/20 at Branch 1645, MANDEEP FENTanyl PF 2019-2019- No 25ug 25 mcg, Un grabiel (SUBLIMAZE 02-18 Slow IV ity o f (PF)) 21:45: 20:50 Push, [place] injection 00 :00 ONCE, 1 Medical 25 mcg dose, Sat Branch 02/19/20 at 1645, STAT clindamycin 2019-0 2020- No 900mg 900 mg, IV Univers in 5 % 02-18 Piggyback, ity of dextrose 21:45: 21:21 ONCE, 1 [place] (CLEOCIN) 00 :00 dose, Sat Medic al 900 mg/50 02/19/20 at Branc h mL IV 1645, 50 piggyback mL
Reas RTU 900 mg on for Anti-Infec tive: Documented Infection< br>Documen yelena Infection Site: Skin / Soft Tissue
Duration of Therapy: Other (see Comments)< br>Restric yelena use approved by: ADC PROVIDER acetaminoph 2020- No 1000mg 1,000 mg, Univers en 02-18-06 Oral, ity of (TYLENOL) 21:30: 20:30 ONCE, 1 [place] tablet 00 :[place] dose, Sat Medical 1,000 mg 02/19/20 at Branch 1630, MANDEEP traMADol 50 2019-0 Yes [id number] 50mg Take 1 Univers mg tablet 6-06 tablet by ity o f 00:00: mouth [place] 00 every 6 Medical (six) Branch hours as needed for Pain (scale 4-6). traMADol 50 2019-0 Yes [id number] 50mg Take 1 Univers mg tablet 6-06 tablet by ity o f 00:00: mouth [place] 00 every 6 Medical (six) Branch hours as needed for Pain (scale 4-6). traMADol 50 2019-0 Yes [id number] 50mg Take 1 Univers mg tablet 6-06 tablet by ity o f 00:00: mouth [place] 00 every 6 Medical (six) Branch hours as needed for Pain (scale 4-6). traMADol 50 2019-0 Yes [id number] 50mg Take 1 Univers mg tablet 6-06 tablet by ity o f 00:00: mouth [place] 00 every 6 Medical (six) Branch hours as needed for Pain (scale 4-6). traMADol 50 2019-0 Yes [id number] 50mg Take 1 Univers mg tablet 6-06 tablet by ity o f 00:00: mouth [place] 00 every 6 Medical (six) Branch hours as needed for Pain (scale 4-6). traMADol 50 2019-0 Yes [id number] 50mg Take 1 Univers mg tablet 6-06 tablet by ity o f 00:00: mouth [place] 00 every 6 Medical (six) Branch hours as needed for Pain (scale 4-6). clindamycin 2019-0 2020- No [id number] 450mg Take 3 Univers 150 mg 02-18-17 capsules ity of capsule 00:00: 04:59 by mouth 3 Danie as 00 :00 (three) Medical times Branch daily for 10 days. glipiZIDE 2019-0 Yes [id number] 10mg Take 1 Un grabiel 10 mg 2-22 tablet by ity of tablet 00:00: mouth 2 [place] 00 (two) Medical times Branch daily before breakfast and dinner. HYDROcodone 2020-0 Yes [id number] 1{tbl} Take 1 Univers -acetaminop 2-22 tablet by ity of hen 5-325 00:00: mouth [place] mg tablet 00 every 6 Medical (six) Branch hours as needed for Pain (scale 7-10). glipiZIDE 2020-0 Yes [id number] 10mg Take 1 Un grabiel 10 mg 2-22 tablet by ity of tablet 00:00: mouth 2 [place] 00 (two) Medical times Branch daily before breakfast and dinner. HYDROcodone 2020-0 Yes [id number] 1{tbl} Take 1 Univers -acetaminop 2-22 tablet by ity of hen 5-325 00:00: mouth [place] mg tablet 00 every 6 Medical (six) Branch hours as needed for Pain (scale 7-10). glipiZIDE 2020-0 Yes [id number] 10mg Take 1 Un grabiel 10 mg 2-22 tablet by ity of tablet 00:00: mouth 2 [place] 00 (two) Medical times Branch daily before breakfast and dinner. HYDROcodone 2020-0 Yes [id number] 1{tbl} Take 1 Univers -acetaminop 2-22 tablet by ity of hen 5-325 00:00: mouth [place] mg tablet 00 every 6 Medical (six) Branch hours as needed for Pain (scale 7-10). glipiZIDE 2020-0 Yes [id number] 10mg Take 1 Un grabiel 10 mg 2-22 tablet by ity of tablet 00:00: mouth 2 [place] 00 (two) Medical times Branch daily before breakfast and dinner. HYDROcodone 2020-0 Yes [id number] 1{tbl} Take 1 Univers -acetaminop 2-22 tablet by ity of hen 5-325 00:00: mouth [place] mg tablet 00 every 6 Medical (six) Branch hours as needed for Pain (scale 7-10). glipiZIDE 2020-0 Yes [id number] 10mg Take 1 Un grabiel 10 mg 2-22 tablet by ity of tablet 00:00: mouth 2 [place] 00 (two) Medical times Branch daily before breakfast and dinner. HYDROcodone 2020-0 Yes [id number] 1{tbl} Take 1 Univers -acetaminop 2-22 tablet by ity of hen 5-325 00:00: mouth [place] mg tablet 00 every 6 Medical (six) Branch hours as needed for Pain (scale 7-10). glipiZIDE 2020-0 Yes [id number] 10mg Take 1 Un grabiel 10 mg 2-22 tablet by ity of tablet 00:00: mouth 2 [place] 00 (two) Medical times Branch daily before breakfast and dinner. HYDROcodone 2020-0 Yes [id number] 1{tbl} Take 1 Univers -acetaminop 2-22 tablet by ity of hen 5-325 00:00: mouth [place] mg tablet 00 every 6 Medical (six) Branch hours as needed for Pain (scale 7-10). glipiZIDE 2020-0 Yes [id number] 10mg Take 1 Un grabiel 10 mg 2-22 tablet by ity of tablet 00:00: mouth 2 [place] 00 (two) Medical times Branch daily before breakfast and dinner. HYDROcodone 2020-0 Yes [id number] 1{tbl} Take 1 Univers -acetaminop 2-22 tablet by ity of hen 5-325 00:00: mouth [place] mg tablet 00 every 6 Medical (six) Branch hours as needed for Pain (scale 7-10). glipiZIDE 2020-0 Yes [id number] 10mg Take 1 Un grabiel 10 mg 2-22 tablet by ity of tablet 00:00: mouth 2 [place] 00 (two) Medical times Branch daily before breakfast and dinner. HYDROcodone 2020-0 Yes [id number] 1{tbl} Take 1 Univers -acetaminop 2-22 tablet by ity of hen 5-325 00:00: mouth [place] mg tablet 00 every 6 Medical (six) Branch hours as needed for Pain (scale 7-10). glipiZIDE 2020-0 Yes [id number] 10mg Take 1 Un grabiel 10 mg 2-22 tablet by ity of tablet 00:00: mouth 2 [place] 00 (two) Medical times Branch daily before breakfast and dinner. HYDROcodone 2020-0 Yes [id number] 1{tbl} Take 1 Univers -acetaminop 2-22 tablet by ity of hen 5-325 00:00: mouth [place] mg tablet 00 every 6 Medical (six) Branch hours as needed for Pain (scale 7-10). ciprofloxac 2020-0 2020- No [id number] 500mg Take 1 Univers in HCl 500 2-22 03-01 tablet by ity of mg tablet 00:00: 05:59 mouth [place] 00 :00 every 12 Medical (twelve) Branch hours for 7 days. metroNIDAZO 2019- 2020- No [id number] 500mg Take 1 Univers LE 500 mg 11-06 tablet by ity of tablet 00:00: 05:59 mouth 2 [place] 00 :00 (two) Medical times Branch daily for 7 days. HYDROmorpho 2019- Yes 1mg 1 mg, Slow Univers ne 2-21 IV Push, ity of (DILAUDID) 15:33: Q6HPRN, [place] injection 1 28 Starting Medi kyrie mg Fri Branch 11/05/19 at 0933, Until Discontinu ed, Routine, Pain (scale 7-10)
U se approved by (Faculty): ADC PROVIDER HYDROmorphO 2019- 2020- No 1mg 1 mg, Slow Univers ne 11-04 IV Push, ity of (DILAUDID) 17:03: 15:33 Q3HPRN, Danie as injection 1 17 :39 Starting Medi kyrie mg Angel[place] Branch 11/04/19 at 1103, Until Fri11/05/19 at 0933, MANDEEP, Pain (scale 7-10)
U se approved by (Faculty): ADC PROVIDER sennosides 2019-0 Yes 8.6mg 8.6 mg, Uni vers (SENOKOT) 2-20 Oral, ity of tablet 8.6 15:00: DAILY, [place] mg 00 First dose Medical on Angelina Branch 11/04/19 at 0900, Until Discontinu ed, Routine ciprofloxac 2019- No 400mg 400 mg, IV Univers in in 5 % 11-04- Piggyback, ity of dextrose 07:00: 20:00 [place] (CIPRO[place] 00 :00 over 60 Medical piggyback Minutes, Branch 400 mg Q12H ABX, 2 doses, First dose on Angelina 11/04/19 at 0100, Last dose on Fri11/04/19 at 1300, MANDEEP
Re ason for Anti-Infec tive: Documented Infection& lt;br>Docu mented Infection Site: Abdominal< br>Duratio n of Therapy: Other (see Comments) Sliding 2019-0 Yes Subcutaneo Univ ers Scale 2-20 us, TID ity of Insulin - 03:00: MEALS+HS, Danie as Aspart 00 First dose Medical (NOVOLOG) + on Fri Branch Fsbg 11/03/19 at Testing 2100, Until Discontinu ed, Routine docusate 2019-0 Yes 100mg 100 mg, Unive rs (COLACE) [...] br>Duratio n of Therapy: 7 days HYDROcodone 2019- Yes 1{tbl} 1 tablet, Univers -acetaminop 11-03 Oral, ity of hen (NORCO 21:44: Q4HPRN, [place] 5) 5-325 mg 00 Starting Medi kyrie tablet 1 Fri tablet 11/03/19 at 1544, Until Discontinu ed, Routine, Pain (scale 4-6) morpHINE 2020- No 4mg 4 mg, Slow Un grabiel injection 4 11-03 IV Push, ity of mg 21:43: 17:06 Q2HPRN, [place] 39 :17 Starting Medical Wed Branch 11/03/19 at 1543, Until Angelina 11/04/19 [...] n of Therapy: Other (see Comments) ciprofloxac 2019- No 400mg 400 mg, IV Univers in in 5 % 11-03 Piggyback, ity of dextrose 19:30: 19:43 [place] (CIPRO[place] 00 :00 over 60 Medical piggyback Minutes, Branch 400 mg ONCE, 1 dose, 11/03/19 at 1330, MANDEEP
Re ason for Anti-Infec tive: Documented Infection< br>Documen yelena Infection Site: Abdominal< br>Duratio n of Therapy: Other (see Comments) D5W 0.45% 2020- No 1000mL at 125 Uni vers NaCl [...] ity o f (PF)) 17:00: 16:06 Push, [place] injection 00 :00 ONCE, 1 Medical 100 mcg dose, [facility] Branch 11/03/19 at 1100, Routine ondansetron 2019- No 4mg 4 mg, Slow Univers (ZOFRAN 11-03 IV Push, ity of (PF)) 17:00: 16:06 ONCE, 1 [place] injection 4 00 :00 dose, Wed Med ical mg 11/03/19 at Branch 1100, MANDEEP cyclobenzap 2018-09 2020- No [id number] 5mg Take 1 Univers rine 5 mg 011-06 9100 tablet by ity of tablet 00:00: 00:00 mouth 3 [place] 00 :00 (three) Medical times Branch daily. traMADol 2018-09 2020- No [id number] 50mg Take 1 Univers (ULTRAM) 50 11-06 [...] needed for Cough. DO NOT CHEW! ondansetron 2018-0 2020- No 4mg Take 1 Uni vers (ZOFRAN 10-05 tablet by ity of ODT) 4 mg 00:00: 00:00 mouth [place] disintegrat 00 :00 every 8 Medic al ing tablet (eight) Branch hours as needed for Nausea and Vomiting (N/V). sod 2020- No 1{bottl Use 1 Univers chlor-bicar 10-05 e} Bottle in it y of b-squeez 00:00: 00:00 each [place] bottle 00 :00 nostril 2 Medical (NEILMED (two) Branch SINUS RINSE times COMPLETE) daily. Use pkdv in hot shower 1 hour before bedtime Vital Signs Vital Name Observation Time Observation Value Comments Source Systolic blood 2020-04-24 13:23:00 129 mm[Hg] Univer sity of [facility] Diastolic blood 2020-04-24 13:23:00 81 mm[Hg] Unive rsity of [facility] Heart rate 2020-04-24 13:23:00 82 /min Universi ty [facility] Body weight 2020-04-24 13:23:00 138.075 kg Universi ty [facility] BMI 2020-04-24 13:23:00 39.08 kg/m2 Universi ty [facility] Systolic blood 2020-04-24 13:23:00 129 mm[Hg] Univer sity of [facility] Diastolic blood 2020-04-24 13:23:00 81 mm[Hg] Unive rsity of [facility] Heart rate 2020-04-24 13:23:00 82 /min Universi ty [facility] Body weight 2020-04-24 13:23:00 138.075 kg Universi ty [facility] BMI 2020-04-24 13:23:00 39.08 kg/m2 Universi ty [facility] Systolic blood 2020-04-07 03:51:00 118 mm[Hg] Univer sity of [facility] Diastolic blood 2020-04-07 03:51:00 68 mm[Hg] Unive rsity of [facility] Heart rate 2020-04-07 03:51:00 92 /min Universi ty [facility] Respiratory rate 2020-04-07 03:51:00 16 /min [facility] O[facility] saturation in 2020-04-07 03:51:00 100 /min University of Arterial blood by [facility] kyrie Pulse oximetry Branch Body temperature 2020-04-07 03:40:00 36.44 Leonor Univ [facility] [place] [facility] Body weight 2020-04-07 00:07:00 129.275 kg [facility] [place] [facility] BMI 2020-04-07 00:07:00 36.59 kg/m2 [facility] [place] [facility] Heart rate 2020-02-19 23:10:00 105 /min [facility] [place] [facility] Respiratory rate 2020-02-19 23:10:00 29 /min Univ ers[facility] [place] [facility] Oxygen saturation in 2020-02-19 23:10:00 94 /min University of Arterial blood by [facility] kyrie Pulse oximetry Branch Systolic blood 2020-02-19 23:00:00 127 mm[Hg] Univer sity of pressure [place] [facility] Diastolic blood 2020-02-19 23:00:00 78 mm[Hg] Unive rsity of pressure [place] [facility] Body temperature 2020-02-19 22:04:10 37.33 Leonor Univ [facility] [place] [facility] Body height 2020-02-19 19:56:00 188 cm [facility] [place] [facility] Body weight 2020-02-19 19:56:00 129.275 kg [facility] [place] [facility] BMI 2020-02-19 19:56:00 36.59 kg/m2 [facility] [place] [facility] Systolic blood 2019-11-06 17:14:00 138 mm[Hg] Univer sity of pressure [place] [facility] Diastolic blood 2019-11-06 17:14:00 88 mm[Hg] Unive rsity of pressure [place] [facility] Heart rate 2019-11-06 17:14:00 102 /min [facility] [place] [facility] Respiratory rate 2019-11-06 17:14:00 18 /min Univ ersity [facility] [place] [facility] Oxygen saturation in 2019-11-06 17:14:00 96 /min University of Arterial blood by [facility] Pulse oximetry Branch Body temperature 2019-11-06 14:00:00 36.72 Leonor [facility] [place] [facility] Body height 2019-11-03 23:00:00 188 cm [facility] [place] [facility] Body weight 2019-11-03 15:22:00 129.275 kg [facility] [place] [facility] BMI 2019-11-03 15:22:00 36.58 kg/m2 [facility] Procedures Procedure Date / Time Performing Clinician Source Performed EGD (ENDO) 2020-04-07 02:31:21 Lisa Armendariz [facility] COMP. METABOLIC PANEL 2020-04-07 01:52:00 Yazmin Apple [facility] ([id number]) Medical Branch CBC WITH DIFF 2020-04-07 01:52:00 Yazmin Apple Cassy Collins o f [facility] XR NECK SOFT TISSUE 2020-04-07 00:57:29 Yazmin Apple [facility] COVID-19 (ID NOW RAPID 2020-04-07 00:40:00 Yazmin Apple [facility] TESTING) Medical Branch NOTICE OF PRIVACY 2020-04-06 23:57:19 [facility] Unassigned, No [facility] Branch CONSENT/REFUSAL FOR 2020-04-06 23:57:05 Doctor Unassigned, No [facility] [place] DIAGNOSIS AND TREATMENT Name Medical Branch REFERRAL- 2020-03-29 05:01:00 Doctor Unassigned, No [facility] REQUEST/RESPONSE Name Medical Branch POCT GLUCOSE 2020-02-19 23:05:00 Meggan Hernandez [facility] (AUTOMATED) Medical Branch POCT GLUCOSE 2020-02-19 21:52:00 Meggan Hernandez [facility] (AUTOMATED) Medical Branch COMP. METABOLIC PANEL 2020-02-19 20:47:00 Meggan Hernandez [facility] ([id number]) Medical Branch CBC WITH DIFFERENTIAL 2020-02-19 20:47:00 Meggan Hernandez [facility] Medical [place] COVID-19 (ID NOW RAPID 2020-02-19 20:47:00 Meggan Hernandez [facility] TESTING) Medical Branch NOTICE OF PRIVACY 2020-02-19 19:53:34 Doctor Unassigned, No Univ ersity [facility] PRACTICES Name Medical Branch CONSENT/REFUSAL FOR 2020-02-19 19:53:23 Doctor Unassigned, No Un [facility] [place] DIAGNOSIS AND TREATMENT Name Medical Branch POCT GLUCOSE 2019-11-06 13:36:00 Luis Mandujano [facility] (AUTOMATED) Medical Branch POCT GLUCOSE 2019-11-06 01:48:00 [facility] Branch POCT GLUCOSE 2019-11-05 22:16:00 Pavithra [facility] (AUTOMATED) Medical Branch POCT GLUCOSE 2019-11-05 17:26:00 Pavithra [facility] (AUTOMATED) Medical Branch POCT GLUCOSE 2019-11-05 13:21:00 Pavithra [facility] (AUTOMATED) Medical Branch BASIC METABOLIC PANEL 2019-11-05 10:28:00 [facility] (NA, K, CL, CO2, Medical Branch GLUCOSE, BUN, CREATININE, CA) CBC WITH DIFFERENTIAL 2019-11-05 10:28:00 [facility] Medical Branch POCT GLUCOSE 2019-11-05 10:12:00 [facility] Branch POCT GLUCOSE 2019-11-05 06:12:00 Pavithra [facility] (AUTOMATED) Medical Branch POCT GLUCOSE 2019-11-05 01:41:00 Pavithra [facility] (AUTOMATED) Medical Branch POCT GLUCOSE 2019-11-04 22:26:00 Pavithra [facility] (AUTOMATED) Medical Branch POCT GLUCOSE 2019-11-04 17:20:00 Pavithra [facility] (AUTOMATED) Medical Branch POCT GLUCOSE 2019-11-04 13:21:00 Pavithra [facility] (AUTOMATED) Medical Branch POCT GLUCOSE 2019-11-04 11:57:00 Pavithra [facility] (AUTOMATED) Medical Branch POCT GLUCOSE 2019-11-04 05:30:00 Pavithra [facility] (AUTOMATED) Medical Branch POCT GLUCOSE 2019-11-04 02:17:00 Pavithra [facility] (AUTOMATED) Medical Branch POCT GLUCOSE 2019-11-03 23:23:00 Pavithra [facility] (AUTOMATED) Medical Branch POCT GLUCOSE 2019-11-03 21:41:00 Pavithra [facility] (AUTOMATED) Medical Branch SURGICAL PATHOLOGY EXAM 2019-11-03 20:26:00 Yonatan Lund Uni versity [facility] LAPAROSCOPIC 2019-11-03 19:24:00 Yonatan Lund [facility] APPENDECTOMY [facility] CT ABDOMEN PELVIS W 2019-11-03 17:41:22 Ervin Rhoades [facility] CONTRAST [facility] Branch LIPASE 2019-11-03 15:35:00 Ervin Rhoades [facility] COMP. METABOLIC PANEL 2019-11-03 15:35:00 Ervin Rhoades [facility] ([id number]) [facility] CBC WITH DIFFERENTIAL 2019-11-03 15:35:00 Jf [facility] GLYCOSYLATED HEMOGLOBIN 2019-11-03 15:35:00 Meggan Pichardo [facility] (A1C) [facility] URINALYSIS 2019-11-03 15:35:00 Jf [facility] Encounters Start End Encounter Admission Attending Care Care Encounter Source Date/Time Date/Time Type Type Clinicians Facility Department ID 2020-08-15 2020-08-15 Outpatient R [facility] [id number] Univers 10:00:00 10:00[id number] 2020-08-15 [id number] Univers 10:00:00 10:00:00 SILVINA [facility] 2020-08-14 2020-08-14 Outpatient R [facility] [id number] Univers 10:40:00 10:40:00 [id number] [facility] 2020-04-24 2020-04-24 Office [facility] [id number] 08:15:37 08:49:56 Visit Norberto Ward [id number] [place]ian[place] [id number] Profsaleem [id number] nal 092 Building 2020-04-24 2020-04-24 [facility] [id number] [facility] 08:15:37 08:49:56 Visit Norberto Ward [id number] [place] [id number] [place] Profess[place] [id number] Hi dical nal 092 [facility] 2020-04-24 2020-04-24 Outpatient R NORBERTO BERNAL [facility] [id number] Univers 08:00:00 08:00:00 NORBERTO BERNAL ity of [facility] 2020-04-06 2020-04-06 Emergency Yazmin Apple [facility] [id number] Univers 19:12:13 22:55:00 Cassy Ward [id number] i [place] [id number] [place] [id number] [facility] 071 [place] 2020-04-06 2020-04-06 Emergency X Yazmin APPLE [facility] ERT [id number] Univers 19:12:13 19:12:13 ity of [facility] 2020-04-06 2020-04-06 Orders Doctor SNEED [id number] Univers 00:00:00 00:00:00 Only Unassigned, MIRI [id number] ity of [place] [facility] [id number] Danie as [id number] [facility] 009 [place] 2020-03-29 2020-03-29 Orders Doctor SNEED [id number] Univers 00:00:00 00:00:00 Only Unassigned, MIRI [id number] ity of [place] [facility] [id number] Danie as [id number] [facility] 009 [place] 2020-02-19 2020-02-19 [facility] [id number] Univers 15:07:18 19:22:00 Meggan Ward [id number] [place] [id number] [place] [id number] [facility] 084 [place] 2020-02-19 2020-02-19 Emergency X [facility] ERT [id number] Univers 14:53:00 14:53:00 ity of [facility] 2020-02-19 2020-02-19 Orders Doctor SNEED 1.2.840.114 [id number] Univers 00:00:00 00:00:00 Only Unassigned, MIRI 350.1.13.10 ity of [place] [facility] 4.2.7.2.686 Danie as [phone] [facility] [place] 009 Branch 2019-11-08 2019-11-08 Transition Faraz Nicolas 1.2.840.114 [id number] Univers 00:00:00 00:00:00 of Care Hortensia De Jesus 350.1.13.10 [id number] [facility] [place] 403 Branch 2019-11-03 2019-11-06 Hospital Ervin Rhoades [facility] 1.2.840.1 14 [id number] Univers 09:25:15 12:00:00 Encounter Luis Mandujano 350.1.13.10 [place] [phone] [facility] [place] 080 Branch 2019-11-03 2019-11-06 Inpatient X PAVITHRA [facility] TIMOTEO [id number] Univers 09:25:15 12:00:00 LUIS osman [facility] Results Test Description Test Time Test Comments Results Result Comments Source COMP. METABOLIC PANEL (18981) 2020-04-07 03:03:00 Test Item Value Reference Range Interpretation Comme nts NA (test code = 8177331994) 139 mmol/L 135-145 K (test code = 4257342140) 4.4 mmol/L 3.5-5 CL (test code = 2960836080) 101 mmol/L 98-108 CO2 TOTAL (test code = 3500301128) 28 mmol/L 23-31 AGAP (test code = 0256464297) 2-16 BUN (test code = 9077045587) 11 mg/dL 7-23 GLUCOSE (test code = 3899381630) 225 mg/dL 70-110 H CREATININE (test code = 0.98 mg/dL 0.6-1.25 4340260924) TOTAL BILI (test code = 0.5 mg/dL 0.1-1.1 0867933717) CALCIUM (test code = 7129431122) 9.6 mg/dL 8.6-10.6 T PROTEIN (test code = 6179635144) 8.2 g/dL 6.3-8.2 ALBUMIN (test code = 4794099573) 4.7 g/dL 3.5-5 ALK PHOS (test code = 1329313259) 75 U/L 34-122 ALTv (test code = 1742-6) 74 U/L 5-50 H AST(SGOT) (test code = 3015486916) 39 U/L 13-40 eGFR Calculation (Non- mL/min/1.73m2 Australian) (test code = 1441987594) eGFR Calculation ( mL/min/1.73m2 [place]) (test code = 3104708468) KATE (test code = KATE) Association of [...] tests). Lab Interpretation (test code = Abnormal 80242-4) [facility] WITH [id number] 02:12:00 Test Item Value Reference Range Interpretation Comments WBC (test code = See_Comment [Automated 5490-2) message] The sy stem which generated this [...] (test code = 36.4 fL 38.5-51.6 L 36844-7) RDW-CV (test code = 12.5 % 12.1-15.4 788-0) PLT (test code = See_Comment [Automated 777-3) message] The sy stem which generated this result transmitted reference range : 150 - 328 10*3/ ?L. The reference r jevon was not used to interpret this result as normal/abnormal . MPV (test code = 11.5 fL 9.8-13 20742-9) NRBC/100 WBC (test See_Comment [Automat ed code = 4998989856) message] The system which generated this result transmitted reference range : 0.0 - 10.0 /100 WBCs. The refer ence range was not u sed to interpret th is result as normal/abnormal . NRBC x10^3 (test code <0.01 See_Comment [Auto mated = 0444471721) message] The s ystem which generated this result transmitted reference range : 10*3/?L. The reference range was not used to interpret this result as normal/abnormal . GRAN MAT (NEUT) % 68.0 % (test code = 770-8) IMM GRAN % (test code 0.40 % = 6524838122) LYMPH % (test code = 23.8 % 736-9) MONO % (test code = 4.7 % 5905-5) EOS % (test code = 2.7 % 713-8) BASO % (test code = 0.4 % 706-2) GRAN MAT x10^3(ANC) 5.24 10*3/uL 1.99-6.95 (test code = 6374565514) IMM GRAN x10^3 (test 0.03 10*3/uL 0-0.06 code = 1261245066) LYMPH x10^3 (test code 1.83 10*3/uL 1.09-3.23 = 731-0) MONO x10^3 (test code 0.36 10*3/uL 0.36-1.02 = 742-7) EOS x10^3 (test code = 0.21 10*3/uL 0.06-0.53 711-2) BASO x10^3 (test code 0.03 10*3/uL 0.01-0.09 = 704-7) Lab Interpretation Abnormal (test code = 37714-1) [facility]07 01:40:00 Test Item Value Reference Range Interpretation Comments SARS-CoV-2 Rapid ID NOW Not Detected Not Detected (test code = 46164-8) KATE (test code = KATE) ID NOW COVID-19 Assay is an isothermal nucleic acid amplification test intended for the qualitative detection of nucleic acid from SARS-CoV-2 viral RNA in nasopharyngeal (FARM OPERATIONS TECHNICAL DIRECTOR) specimens. It is used under Emergency Use [...] indicated. Lab Interpretation Normal (test code = 04761-5) [facility] [id number] 01:06:58 FINDINGS/IMPRESSION:: Frontal and lateral radiographs of [...] spondylotic changes at C5-C6. Cervical spine is otherwiseunremarkable.[facility] GLUCOSE (AUTOMATED) 2020-02-19 23:08:00 Test Item Value Reference Range Interpretation Comments POCT GLU (test code = 5807489822) 243 mg/dL 70-110 H Lab Interpretation (test code = Abnormal 75230-3) [facility] GLUCOSE (AUTOMATED)2020-02-19 21:58:00 Test Item Value Reference Range Interpretation Comments POCT GLU (test code = 3433748227) 313 mg/dL 70-110 H Lab Interpretation (test code = Abnormal 28794-6) [facility]2020-02-19 21:31:00 Test Item Value Reference Range Interpretation Comments SARS-CoV-2 Rapid ID NOW Not Detected Not Detected (test code = 08655-2) KATE (test code = KATE) ID NOW COVID-19 Assay is an isothermal nucleic acid amplification test intended for the qualitative detection of nucleic acid from SARS-CoV-2 viral RNA in nasopharyngeal (FARM OPERATIONS TECHNICAL DIRECTOR) specimens. It is used under Emergency Use [...] indicated. Lab Interpretation Normal (test code = 89806-5) [facility]. METABOLIC PANEL (48524)2020-02-19 21:29:00 Test Item Value Reference Range Interpretation Comments NA (test code = 134 mmol/L 135-145 L 5833599660) K (test code = 4.1 mmol/L 3.5-5 4369466100) CL (test code = 99 mmol/L 98-108 7764186144) CO2 TOTAL (test code = 27 mmol/L 23-31 9146607104) AGAP (test code = 2-16 5649923830) BUN (test code = 10 mg/dL 7-23 9037881533) GLUCOSE (test code = 372 mg/dL 70-110 H 0066231629) CREATININE (test code = 0.96 mg/dL 0.6-1.25 3193086118) TOTAL BILI (test code = 0.4 mg/dL 0.1-1.8 6104123857) CALCIUM (test code = 9.2 mg/dL 8.6-10.6 5691306526) T PROTEIN (test code = 7.5 g/dL 6.3-8.2 8381263311) ALBUMIN (test code = 4.5 g/dL 3.5-5 8752277760) ALK PHOS (test code = 86 U/L 34-122 8185061085) ALTv (test code = 48 U/L 5-50 1742-6) AST(SGOT) (test code = 27 U/L 13-40 5150721037) eGFR Calculation mL/min/1.73m2 (Non-) (test code = 4026441317) eGFR Calculation mL/min/1.73m2 () (test code = 0095090751) KATE (test code = KATE) Association of [...] tests). Lab Interpretation Abnormal (test code = 72889-3) [facility] WITH [id number] 21:06:00 Test Item Value Reference Range Interpretation Comments WBC (test code = See_Comment [Automated 3491-2) message] The sy stem which generated this result transmitted reference range : 4.20 - 10.70 10*3/?L. The reference range was not used to interpret this result as normal/abnormal . RBC (test code = See_Comment H [Automated 153-8) message] The sy stem which generated this [...] (test code = 36.3 fL 38.5-51.6 L 92200-9) RDW-CV (test code = 12.9 % 12.1-15.4 788-0) PLT (test code = See_Comment [Automated 777-3) message] The sy stem which generated this result transmitted reference range : 150 - 328 10*3/ ?L. The reference r jevon was not used to interpret this result as normal/abnormal . MPV (test code = 11.3 fL 9.8-13 59044-6) NRBC/100 WBC (test See_Comment [Automat ed code = 5548891775) message] The system which generated this result transmitted reference range : 0.0 - 10.0 /100 WBCs. The refer ence range was not u sed to interpret th is result as normal/abnormal . NRBC x10^3 (test code <0.01 See_Comment [Auto mated = 2477855560) message] The s ystem which generated this result transmitted reference range : 10*3/?L. The reference range was not used to interpret this result as normal/abnormal . GRAN MAT (NEUT) % 79.8 % (test code = 770-8) IMM GRAN % (test code 0.50 % = 3408155601) LYMPH % (test code = 13.4 % 736-9) MONO % (test code = 4.2 % 5905-5) EOS % (test code = 1.8 % 713-8) BASO % (test code = 0.3 % 706-2) GRAN MAT x10^3(ANC) 8.49 10*3/uL 1.99-6.95 H (test code = 8365173079) IMM GRAN x10^3 (test 0.05 10*3/uL 0-0.06 code = 1211591609) LYMPH x10^3 (test code 1.42 10*3/uL 1.09-3.23 = 731-0) MONO x10^3 (test code 0.45 10*3/uL 0.36-1.02 = 742-7) EOS x10^3 (test code = 0.19 10*3/uL 0.06-0.53 711-2) BASO x10^3 (test code 0.03 10*3/uL 0.01-0.09 = 704-7) Lab Interpretation Abnormal (test code = 94083-3) [facility] GLUCOSE (AUTOMATED)2019-11-06 13:38:00 Test Item Value Reference Range Interpretation Comments POCT GLU (test code = 9057845811) 116 mg/dL 70-110 H Lab Interpretation (test code = Abnormal 25806-4) [facility] GLUCOSE (AUTOMATED)2019-11-06 12:29:00 Test Item Value Reference Range Interpretation Comments POCT GLU (test code = 0653048828) 322 mg/dL 70-110 H Lab Interpretation (test code = Abnormal 15064-9) [facility] GLUCOSE (AUTOMATED)2019-11-06 12:29:00 Test Item Value Reference Range Interpretation Comments POCT GLU (test code = 1144374964) 230 mg/dL 70-110 H Lab Interpretation (test code = Abnormal 27185-0) [facility] GLUCOSE (AUTOMATED)2019-11-06 02:00:00 Test Item Value Reference Range Interpretation Comments POCT GLU (test code = 155 mg/dL 70-110 H Notifi ed Provider 3764664349) Lab Interpretation (test Abnormal code = 22445-3) [facility] [id number] 00:02:00 Test Item Value Reference Range Interpretation Comments Case Report (test code Surgical Pathology ? ? = [id number]) ?Case: [id number] ? Authorizing Provider: ?Yonatan Lund MD ? ? ? Collected: ? 11/03/2019 1426 ?Ordering Location: ? ? [facility] ? ? ?Received: ?11/03/2019 1555 ? [facility] ?Pathologist: ? Klaus Tinoco MD ? Specimen: ? ?APPENDIX, appendix ? Final Diagnosis (test s4igsHNkUYHys4isNTHweP code = 1400101717) FuZzEwMzNcZnRuYmpcdWMx IPbxfoCdQQwzg0MmL4KgFn AwMFxhbnNpXGRlZmxhbmcx BYMzIYW8ozRmCQBkMIcjVG BtRHvqHa6adEWrpPbwTsTg LTMmd4vhmiXTikbccWq4r1 ptPFGgFaE1nPUhJQheI2uu abYomIWnBMYuYWb3jC39FR RucV0snPVkTXjzuvBoHHad irEuprRaSrj2RRYgO3fwRK DaQJFuK0RtNY9gFMDiHrx4 WQB2VRF6bNjqy7E8gASawM DueAlzLmHpMySqDLWZi1Ml IZc9sFnxM8MlUQHfRcM1qO QgUGFyYWdyYXBoIEZvbnQ7 fA82TRzzmpU1jZIvu6Fjf8 2tx173cH4coMUyYGB8ZYAg CXPvzIQzKGAqJHJ9KGNztV EwA4poUDysUW1wfdbjZTH0 MFxtYXJndDcyMFxtYXJnYj OwuTPtTQYtyLvrRZvju032 CSJ3LiDiCI4nX5Zvb5G7oU 9maXRcZGVmdGFiNzIwXGZv ov7dfTQqIYccw0KgZFY9ca S0zVProRTmALCdQM24Jler m7LcUcxdJPM0SQQsydLdb1 Cql5uyMfLsojEmJ5ujG6Ls ZHJoZWFkXHBnYnJkcmZvb3 Jnv6DjgLMtpDh2l7obDTRs CUTlxPyme5edYAO5QUFvY0 M6mWGhp8ukAEltTKOdkKJ3 wjRvETOzmZKeR4MgnJ5pQG soBL7wmfq8p0glOzWwCD7n sprcg6bwVWmkJYWkAGQ6Tf TbHVKzb4LafbqcHgThi1Ob rRMnISyaF06ik004JOYypk AmA0zefYPgkiuzoQIqnqge MFxmczIwXHFsXHBsYWluXG BgXXDpQwLlcUoxnO3lFsJl ZnMyMFxwYXJccGFyZFxwbG FpblxmMFxmczIwXHBsYWlu OQJnVELrBhTzCE7xFBIFYS 7GVMczJSVCPEYTEXDCTV9U WTpccGFyXHFsXHBsYWluXG AjPAQgVhPkhXodxO0aDjSa HaQoAVYnQUKlOR5qXCSTTI QvVTMKCZ5XCKQDWNaYKFvU UFquRTQPDG1MDKIOJtEIB7 lUSVNccGFyXHBhciBNYXR0 lZR8DEIhnAHpZKYVDDjcFK EqnPvfpT6aHtJhInPiIapf QK7oNGGkT3ddeAVsMWDoYZ UrN1idDkAqsR2eeEbnKYlv ZjFcZnMyMiBIYXJzaHdhcm EuQC1iLJmfm8BqZWVHHZBj Ba7gAZ9wIBWcINO2HlChGM BNXHBsYWluXGYxXGZzMjBc vASabYszzjSaQZhdm4LlA0 YyMjAwMFxhbnNpXGRlZmxh kjikXSFfWQL0wyXvYLWjCJ buFBGzUDrvGv2yaAAcjOnu NqDrMANem6kppfBADVzlMp RfS405BPJrJHcrp0hjr2In OUEifKWwn8K3MXMBjwkhwH i3a0wvLwUsLpK6fMSyABsx W8tytvZcrRIoH7TuyVEfcZ u1iQgzV53ji1S3KbmrW6zc FAEnMQGyI2CmLK7bFNMiUf w8YJF4ALB1CYAfOVFhM0Ew AB4qKRAekYTiVWv7i6baiJ ocYMCuLAA5y3rnLNgjusG7 BE6cnx2pxYx2g4mgrfWzEO BxMOKsnPHOZWUpP8OkqXnp Aj0lnWl8fLcxTzevRJM0Ko n7YI8qjs14yjs1vZqpXMUl hjxnVsN9IPnwHTLhprccWU i1MAsyQGAxoKO8WCTkpDJh K9MxIALnIY8nysu0SYB6CY ayMWErZjG7RTNjlGPlDZLv hYtlSEzcn508SRS1HdUlTM 9mZ1Uoe2E2yJ1qfLCjVULi qJHpKzCfMXKfgg6jfKIaKW ssz3BpOFV0quK2yDBjeBYf QJCcUL80Llvdb0VdEwrmOQ N4LGZcdcDhs0Cqa5atYiLi jrVwR1xtR9FvWLXrMSCdWU KcEfZuboEsz7Alx3VgzFRj cAe7e0lkDHUvAUWyvEzrm3 gkHSV1HQTsC2V2mFNfm8yc KBhkJMOzxPQ3xlY6LJHkwW WyO2CxiA4oLIZvLR4mipo1 v4ztGVZ8ATzwZXUjMsD4ck Z4ZCSrjBHzIFXceVruRNab g573WEK6ZfZiURTlh5IuI9 DamGclJ35wwVpvJ06vGIAe mJkqmL9gqTrlqU1gIvVfCw MyNFxxbFxwbGFpblxmMVxm czIwXGxhbmcxMDMzXGhpY2 xtJvCyUJSsnLrrMShti2Am XGYxXGNmMlxmczIwXHBhci IOCPfxtiEamKGkh22gMDlu eSByZXZpZXdlZCBhbGwgc3 YfK5ylBK7aF9IdtTSytqWx vsReJLxzTBZtp1c0nRHwmH vyp7UgxYVwBE15xxOjQYUq CKF4YWBhg8mvRV73ojqoNh ZkcC52obXjohKfYXSfl7cp C0ewaCVgt4Ahy9EzlkIoQR suc1NhUC6tsEYmwemnbEU0 ESFtgGIgtyLsopN1hMqaQA EbmZ6hvF0uhFhnsU4dSbSp LkRvXRamGY4kKIGzG5hkkG IvEHAoAKQuZ9xgKtFpjY7f pWnkAadxocS9JFMfoa98 Clinical Information Acute abdomen (test code = 7020897777) Gross Description (test g2nfvYKpTEJsmNWjQcMuVH code = 9475352275) NeGRBow5swMUAfsWAgVpAx MzNcZnRuYmpcdWMxXGRlZm Kiu4udo251fBKjl4bhYZMw YnO2pLCyQNNagUPeS459JF LoCWvwm9ajb2SnRDPtmAUc a7Y1LKWZilovqKy3gNuvM1 0qw1U3BxkqN3akQQMpSLjp ITTtBDhrkDLgCUW1JLXzOA K3NLvmstUjinN9OWeniLDr ApB5BMi7t0rvaSjkHOHzQT O6z1shNHuhnpPdSC4efm4z gFu5i7dcraJoDDImWCPkqC NNUOViX5IloQtnMw0rkNe6 gNxzUcwrCBX7Qtp2MH3qpn 51fbd1uOnlOSQhmoxhImV3 PGkwAAVuotvlFKb3MDfpLQ CzjTFbOZJsyBGaY3YvYKaz NG5rkus9CjEnXV3cpgncLU bbDCRoDIT4NhPwIFXmi6Pk ndsjFaTpdd6tix22NHS1r7 HsvLfxNGN6EGQ8TlXeAv2g lZIdBCQzPL1bRgWggCJuGW Dolg74xZfkGPhenfEccP7u EiMeZKHlgRRpHAZvNB1rtQ FeGEPclF0jidwdDDCjTyIl hwszQKAqgTzukgEiAj8hpF uwOTP2ZExkB0eqqY1nShC7 TWryN1vpsV7kKSw4AHrxdF B5ZQAtgI9wQW4nztxib1zc RAO8KWfrLDNconH2llWhIY GabBFsB6DlfI52ZsWjuNNa C8ZvnR3mRZiyYYKcvmr1Vf DrCi5rlBRxjZC3VKicIwwl YWdlXHBnbmNvbnRccGduZG VjXHBsYWluXHBsYWluXGYw DRVvZdOdv9SaBBYln8jeLj Osb8eviJt6LTwbxSpwlFIh blxmMFxmczIwXHBsYWluXG PlOLVvZcNhJ1RfJ4tpUG3x QSBpcyByZWNlaXZlZCBpbi Tci3KzJLfbrvKkLSHooVxz XVM6tBEwPPDeNTPcWMIzDZ 50XHBsYWluXGYxXGZzMjBc lGptCLerXDs1LmtcaMHjss xmMVxmczIwIHMgbmFtZSwg VUggbnVtYmVyICJhcHBlbm RpeFxwbGFpblxmMVxmczIw MFL7QzHuAOtbDPIqtDrjoC 2uJtNpTfPvQYIoNX3jXEVa wbNeh2PpDN4qBISnyFsavc 62TL1dolQhbZtmx7NbSDJn sKFiOMx7HIg3MfmpD41szV 5cmSNvO4NiANxiMS01RMLt OCBjbSBpbiBkaWFtZXRlci nyy2e5pQCeyLPiC1vpYDS8 FRtcl8iihO4lvEauiNKtOL Bux6A1gZLlRTUoYVTaDKQq MA5aoTlkPBZvLCA5MTBeGA C7MSEmWZFpkYzgEQJSmWZk BMLcTC9ymRgyh3Gvt4UcNX djd7PiKAWnadG5rSPgWEJ6 oTUnrNJnDXGlrtJtoCO4dT VudCBleHVkYXRlLiBUaGUg TFCmAP3pgHqrrLOei3KvyU VygWozb1IxzNryzsGePFFz IHJldmVhbCBhIHBhdGVudC NxxM8yfrvvjzZuB1mmBgVj ka3kEQAwvdGpjX82SJPgEZ BeFxTkrHvuR64lwTQfvlmw FlTkM2VmzYEsCV8ednNgJQ dlLiAgVGhlIHdhbGwgdGhp N9wxBYFqMVVwuviwwrPtix 4iZRFnKN0sEzVyW30aTJVl cnVwdHVyZSBzaXRlIGlzIG ibe3RgvBjffGOtwoZdAbha GInxYB9jOBTqBPLxp47fdD ldBN42K06xYEegjkDqZDJ8 mR7tTJ4fiuceup2xOnDrwk ThXC55KAUjamJqw5RrnQai ufTye4zcV9qqpL2pyOOuRL Ctfr6nozGnBOG9nW1robam uGkuAOYzpZSrzV1iYWIgwx PlJAR9bS8jZX2ybwepwaDl bmQgZGlzdGFsIHRpcCBhcm Ahl8SzdXm1uSJuUVvyZAWv LUEyLlxwYXJccGFyZFxwbG FpblxmMFxmczIwXHBsYWlu XGYxXGZzMjAgSnVsaWUgTW IVvHluzbG9PGVTGNhfQWD8 Embedded Images (test code = 0041193085) [facility] GLUCOSE (AUTOMATED)2019-11-05 22:19:00 Test Item Value Reference Range Interpretation Comments POCT GLU (test code = 1436202777) 115 mg/dL 70-110 H Lab Interpretation (test code = Abnormal 26536-4) [facility] GLUCOSE (AUTOMATED)2019-11-05 18:23:00 Test Item Value Reference Range Interpretation Comments POCT GLU (test code = 9957221610) 197 mg/dL 70-110 H Lab Interpretation (test code = Abnormal 30841-9) [facility] GLUCOSE (AUTOMATED)2019-11-05 17:33:00 Test Item Value Reference Range Interpretation Comments POCT GLU (test code = 6297027134) 125 mg/dL 70-110 H Lab Interpretation (test code = Abnormal 30737-5) [facility] GLUCOSE (AUTOMATED)2019-11-05 13:28:00 Test Item Value Reference Range Interpretation Comments POCT GLU (test code = 0155555975) 130 mg/dL 70-110 H Lab Interpretation (test code = Abnormal 25128-8) [facility] METABOLIC PANEL (NA, K, CL, CO2, GLUCOSE, BUN, CREATININE, CA)2019-11-05 12:11:00 Test Item Value Reference Range Interpretation Comments NA (test code = 137 mmol/L 135-145 1341911749) K (test code = 3.6 mmol/L 3.5-5 6390739105) CL (test code = 100 mmol/L 98-108 7245731171) CO2 TOTAL (test code = 30 mmol/L 23-31 0340780818) AGAP (test code = 2-16 0002484885) BUN (test code = 14 mg/dL 7-23 3799699944) GLUCOSE (test code = 164 mg/dL 70-110 H 5300893828) CREATININE (test code = 0.81 mg/dL 0.6-1.25 5831643462) CALCIUM (test code = 8.6 mg/dL 8.6-10.6 1750493223) eGFR Calculation mL/min/1.73m2 (Non-) (test code = 3140116880) eGFR Calculation mL/min/1.73m2 () (test code = 5168132912) KATE (test code = KATE) Association of [...] tests). Lab Interpretation Abnormal (test code = 92788-5) [facility] WITH [id number] 11:39:00 Test Item Value Reference Range Interpretation Comments WBC (test code = See_Comment [Automated 8054-2) message] The sy stem which generated this result transmitted reference range : 4.20 - 10.70 10*3/?L. The reference range was not used to interpret this result as normal/abnormal . RBC (test code = See_Comment [Automated 812-7) message] The sy stem which generated this [...] RDW-SD (test code = 38.7 fL 38.5-51.6 42918-6) RDW-CV (test code = 13.0 % 12.1-15.4 788-0) PLT (test code = See_Comment [Automated 777-3) message] The sy stem which generated this result transmitted reference range : 150 - 328 10*3/ ?L. The reference r jevon was not used to interpret this result as normal/abnormal . MPV (test code = 11.5 fL 9.8-13 04600-4) NRBC/100 WBC (test See_Comment [Automat ed code = 4258891223) message] The system which generated this result transmitted reference range : 0.0 - 10.0 /100 WBCs. The refer ence range was not u sed to interpret th is result as normal/abnormal . NRBC x10^3 (test code <0.01 See_Comment [Auto mated = 4209868325) message] The s ystem which generated this result transmitted reference range : 10*3/?L. The reference range was not used to interpret this result as normal/abnormal . GRAN MAT (NEUT) % 83.5 % (test code = 770-8) IMM GRAN % (test code 0.30 % = 9044607948) LYMPH % (test code = 9.3 % 736-9) MONO % (test code = 5.7 % 5905-5) EOS % (test code = 1.1 % 713-8) BASO % (test code = 0.1 % 706-2) GRAN MAT x10^3(ANC) 7.74 10*3/uL 1.99-6.95 H (test code = 9816824118) IMM GRAN x10^3 (test 0.03 10*3/uL 0-0.06 code = 6390164482) LYMPH x10^3 (test code 0.86 10*3/uL 1.09-3.23 L = 731-0) MONO x10^3 (test code 0.53 10*3/uL 0.36-1.02 = 742-7) EOS x10^3 (test code = 0.10 10*3/uL 0.06-0.53 711-2) BASO x10^3 (test code <0.03 0.01-0.09 = 704-7) Lab Interpretation Abnormal (test code = 55941-9) [facility] GLUCOSE (AUTOMATED)2019-11-05 10:22:00 Test Item Value Reference Range Interpretation Comments POCT GLU (test code = 3954594971) 149 mg/dL 70-110 H Lab Interpretation (test code = Abnormal 50875-6) [facility] GLUCOSE (AUTOMATED)2019-11-05 06:15:00 Test Item Value Reference Range Interpretation Comments POCT GLU (test code = 3795573627) 204 mg/dL 70-110 H Lab Interpretation (test code = Abnormal 76643-2) [facility] GLUCOSE (AUTOMATED)2019-11-05 01:48:00 Test Item Value Reference Range Interpretation Comments POCT GLU (test code = 2967670113) 227 mg/dL 70-110 H Lab Interpretation (test code = Abnormal 62032-4) [facility] GLUCOSE (AUTOMATED)2019-11-04 22:30:00 Test Item Value Reference Range Interpretation Comments POCT GLU (test code = 6093111854) 132 mg/dL 70-110 H Lab Interpretation (test code = Abnormal 23917-2) [facility] GLUCOSE (AUTOMATED)2019-11-04 17:24:00 Test Item Value Reference Range Interpretation Comments POCT GLU (test code = 6751261241) 213 mg/dL 70-110 H Lab Interpretation (test code = Abnormal 27125-6) [facility] GLUCOSE (AUTOMATED)2019-11-04 13:31:00 Test Item Value Reference Range Interpretation Comments POCT GLU (test code = 3816789829) 203 mg/dL 70-110 H Lab Interpretation (test code = Abnormal 06615-3) [facility] GLUCOSE (AUTOMATED)2019-11-04 12:03:00 Test Item Value Reference Range Interpretation Comments POCT GLU (test code = 9342906129) 213 mg/dL 70-110 H Lab Interpretation (test code = Abnormal 84111-8) [facility] 23:50:00 Test Item Value Reference [...] Indicated Lab Interpretation Abnormal (test code = 01650-3) [facility] 23:28:00 Test Item Value Reference Range Interpretation Comments POCT GLU (test code = 4108881848) 273 mg/dL 70-110 H Lab Interpretation (test code = Abnormal 54836-9) [facility] [id number] 18:01:52CT Abdomen and Pelvis with intravenous contrast. [...] Rhoades in the emergency room at 12:00. [facility], [place], [facility] Results Inft User - 11/03/2019 12:02 PM [...] Dr. Rhoades in the emergency room at 12:00.[facility] Test Item Value Reference Range Interpretation Comments APPEARANCE (test code = Clear Clear 6702777369) COLOR (test code = Yellow Yellow 3852976823) PH (test code = 4.8-8.0 7895401744) SP GRAVITY (test code = 1.003-1.030 1612920997) GLU U QUAL (test code = 500 mg/dL Normal A 4727634544) BLOOD (test code = Negative Negative 2701761738) KETONES (test code = Negative Negative 4196160500) PROTEIN (test code = Negative Negative 2887-8) UROBILIN (test code = Normal Normal 8349628865) BILIRUBIN (test code = Negative Negative 2836031714) NITRITE (test code = Negative Negative 6367930298) LEUK BIANCA (test code = Negative Negative 4245462183) RBC/HPF (test code = See_Comment [Autom ated message] 5234112432) The system [employer] generated this result transmit yelena reference range : 0 - 3 HPF. The refe rence range was not u sed to interpret th is result as normal/abnormal . WBC/HPF (test code = See_Comment [Autom ated message] 0882870675) [employer] system [employer] generated this result transmit yelena reference range : 0 - 5 HPF. The refe rence range was not u sed to interpret th is result as normal/abnormal . BACTERIA (test code = Negative Negative 5742436053) MUCOUS (test code = Slight Negative LPF A 5550077643) SQ EPITH (test code = <1 HPF 5805102277) Lab Interpretation (test Abnormal code = 84016-8) [facility]. METABOLIC PANEL (18684)2019-11-03 16:04:00 Test Item Value Reference Range Interpretation Comments NA (test code = 137 mmol/L 135-145 7408330135) K (test code = 4.3 mmol/L 3.5-5 1966976794) CL (test code = 98 mmol/L 98-108 7558707673) CO2 TOTAL (test code = 28 mmol/L 23-31 7261814580) AGAP (test code = 2-16 5546047776) BUN (test code = 11 mg/dL 7-23 4016500022) GLUCOSE (test code = 356 mg/dL 70-110 H 5641507704) CREATININE (test code = 1.01 mg/dL 0.6-1.25 2188559903) TOTAL BILI (test code = 0.9 mg/dL 0.1-1.7 4853683156) CALCIUM (test code = 9.1 mg/dL 8.6-10.6 9443751354) T PROTEIN (test code = 7.5 g/dL 6.3-8.2 2752306968) ALBUMIN (test code = 4.7 g/dL 3.5-5 7748253808) ALK PHOS (test code = 73 U/L 34-122 2423890399) ALTv (test code = 38 U/L 5-50 1742-6) AST(SGOT) (test code = 25 U/L 13-40 9992228301) eGFR Calculation mL/min/1.73m2 (Non-) (test code = 2610361788) eGFR Calculation mL/min/1.73m2 () (test code = 6707865772) KATE (test code = KATE) Association of [...] tests). Lab Interpretation Abnormal (test code = 47701-6) [facility] Test Item Value Reference Range Interpretation Comments LIPASE (test code = 3138612233) 48 U/L 0-220 Lab Interpretation (test code = Normal 39239-0) [facility] WITH [id number] 15:51:00 Test Item Value Reference Range Interpretation Comments WBC (test code = See_Comment H [Automated 2590-2) message] The system which generated this result [...] (test code = 37.8 fL 38.5-51.6 L 74488-8) RDW-CV (test code = 12.7 % 12.1-15.4 788-0) PLT (test code = See_Comment [Automated 777-3) message] The system which generated this result transmit yelena reference range : 150 - 328 10*3/ ?L. The reference range was not u sed to interpret th is result as normal/abnormal . MPV (test code = 10.9 fL 9.8-13 97460-4) NRBC/100 WBC (test See_Comment [Automat ed code = 8653431624) message] The system which generated this result transmit yelena reference range : 0.0 - 10.0 /100 WBCs. The reference range was not used to interpret this result as normal/abnormal . NRBC x10^3 (test code <0.01 See_Comment [Auto mated = [id number]) message] The system which generated this result transmit yelena reference range : 10*3/?L. The reference range was not used to interpret this result as normal/abnormal . GRAN MAT (NEUT) % 91.5 % (test code = 770-8) IMM GRAN % (test code 0.50 % = [id number]) LYMPH % (test code = 3.9 % 736-9) MONO % (test code = 3.8 % 5905-5) EOS % (test code = 0.1 % 713-8) BASO % (test code = 0.2 % 706-2) GRAN MAT x10^3(ANC) 12.89 10*3/uL 1.99-6.95 H (test code = 9400981084) IMM GRAN x10^3 (test 0.07 10*3/uL 0-0.06 H code = [id number]) LYMPH x10^3 (test code 0.55 10*3/uL 1.09-3.23 L = 731-0) MONO x10^3 (test code 0.54 10*3/uL 0.36-1.02 = 742-7) EOS x10^3 (test code = <0.03 0.06-0.53 L 711-2) BASO x10^3 (test code 0.03 10*3/uL 0.01-0.09 = 704-7) Lab Interpretation Abnormal (test code = 32101-7) [facility]"
[2021-08-05] MEDS ORDERED: DIPHENHYDRAMINE 50 MG/ML VIAL ONE (12:26)
[2021-08-05] MEDS ORDERED: HYDROMORPHONE HCL 1 MG/ML INJ ONE (12:27)
[2021-08-05] MEDS ORDERED: ONDANSETRON 4 MG/2 ML VIAL ONE (12:27)
--- NOTE | 2021-08-05 12:53 | EDPHYS ---
Physician Documentation [facility] Name: Chente Minaya Age: 51 yrs Sex: Male : 1970 Arrival Date: 08/05/2021 Time: 11:28 Bed 9 Private MD: ED Physician Juan A Jarrell HPI: 08/05 12:06 This 51 yrs old Male presents to ER via Ambulatory with complaints of Headache. pm1 12:06 The patient complains of pain to the left side of head. pm1 12:06 The patient describes the headache as aching, constant. Onset: The symptoms/episode pm1 began/occurred 1 week(s) ago. Associated signs and symptoms: The patient has no apparent associated signs or symptoms. Severity of symptoms: in the emergency department the pain is unchanged. Headache History: The patient has had previous headaches and this one is similar to previous episodes. The symptoms are alleviated by Darkened room, the symptoms are aggravated by nothing. The patient has experienced similar episodes in the past, multiple times. The patient has been recently seen by a physician: the patient's primary care provider, with similar presenting complaints, given shot of toradol that was not effective. Historical: - Allergies: 11:49 Bactrim; vg1 11:49 mushroom; vg1 11:49 PENICILLINS; vg1 11:49 Sulfa (Sulfonamide Antibiotics); vg1 11:49 surgical steel; vg1 11:49 tramadol; vg1 11:49 Tylenol-Codeine #3; vg1 11:49 Tylenol-Codeine #4; vg1 - Home Meds: 11:49 losartan oral [Active]; Propranolol Oral [Active]; carvedilol oral [Active]; Levemir vg1 [Active]; Fioricet Oral [Active]; Testosterone [Active]; anastrozole oral [Active]; - PMHx: 11:49 Depression; Diabetes - NIDDM; food bolus; GERD; hiatal hernia; Migraines; neuropathy; vg1 - PSHx: 11:49 multiple upper GI procedures; Appendectomy; vg1 - Immunization history:: Client reports having NOT received the Covid vaccine. - Social history:: Smoking status: Patient denies any tobacco usage or history of. ROS: 12:06 Constitutional: Negative for fever, chills, and weight loss, Cardiovascular: Negative pm1 for chest pain, palpitations, and edema, Respiratory: Negative for shortness of breath, cough, wheezing, and pleuritic chest pain, Abdomen/GI: Negative for abdominal pain, nausea, vomiting, diarrhea, and constipation, MS/Extremity: Negative for injury and deformity, Skin: Negative for injury, rash, and discoloration. 12:06 Neuro: Positive for headache. 12:06 All other systems are negative. Exam: 12:06 Constitutional: This is a well developed, well nourished patient who is awake, alert, pm1 and in no acute distress. Head/Face: Normocephalic, atraumatic. 12:06 Skin: Warm, dry with normal turgor. Normal color with no rashes, no lesions, and no evidence of cellulitis. MS/ Extremity: Pulses equal, no cyanosis. Neurovascular intact. Full, normal range of motion. 12:06 Eyes: Exam is negative for acute changes, Periorbital structures: appear normal, Extraocular movements: no acute changes, Sclera: no acute changes, icterus, is not appreciated. 12:06 ENT: Exam is negative for acute changes, Mouth: no acute changes, Lips: normal, moist, Oral mucosa: normal, pink and intact, moist. 12:06 Cardiovascular: Exam negative for acute changes, Rate: normal, Rhythm: regular, Pulses: no pulse deficits are appreciated. 12:06 Respiratory: Exam negative for acute changes, respiratory distress, shortness of breath. 12:06 Neuro: Exam negative for acute changes, Orientation: is normal, Mentation: is normal, Cranial nerves: CN II- XII are normal as tested, Cerebellar function: no acute changes, normal finger to nose testing, Motor: moves all fours, strength is 5/5 in all extremities, Sensation: is normal, no obvious gross deficits, Gait: is steady, at a normal pace, without difficulty. Vital Signs: 11:45 BP 131 / 91; Pulse 80; Resp 18; Temp 98.6(O); Pulse Ox 98% ; Weight 136.08 kg; Height 6 vg1 ft. 2 in. (187.96 cm); Pain 8/10; 13:29 BP 130 / 65; Pulse 76; Resp 16; Temp 97.8; Pulse Ox 100% on R/A; Pain 5/10; jh6 11:45 Body Mass Index 38.52 (136.08 kg, 187.96 cm) vg1 MDM: 12:03 Patient medically screened. pm1 12:51 Data reviewed: vital signs. Data interpreted: Pulse oximetry: on room air is 98 %. pm1 Interpretation: normal. Counseling: I had a detailed discussion with the patient and/or guardian regarding: the historical points, exam findings, and any diagnostic results supporting the discharge/admit diagnosis, the need for outpatient follow up, to return to the emergency department if symptoms worsen or persist or if there are any questions or concerns that arise at home. 08/05 12:05 Order name: IV Saline Lock; Complete Time: 12:42 pm1 Administered Medications: 12:35 Drug: Benadryl (diphenhydrAMINE) 25 mg Route: IVP; Site: left antecubital; 6 13:31 Follow up: Response: No adverse reaction [facility] 12:35 Drug: Dilaudid (HYDROmorphone) 1 mg Route: IVP; Site: left antecubital; 6 13:10 Follow up: Response: Pain is decreased [facility] 12:43 Drug: Zofran (Ondansetron) 4 mg Route: IVP; Site: left antecubital; jh6 13:10 Follow up: Response: Pain is decreased 6 Disposition: 16:41 Co-signature as Attending Physician, Juan A Jarrell MD I agree with the assessment and rn plan of care. Attestation: The patient's history, exam findings, diagnostics, and a summary of any interventions or procedures was reviewed in detail with Dedrick Atkinson NP. Disposition Summary: 08/05/21 12:52 Discharge Ordered Location: Home pm1 Problem: new pm1 Symptoms: have improved pm1 Condition: Stable pm1 Diagnosis - Headache pm1 Followup: pm1 - With: Emergency Department - When: As needed - Reason: Worsening of condition Followup: pm1 - With: Private Physician - When: 2 - 3 days - Reason: Recheck today's complaints, Continuance of care, Re-evaluation by your physician Discharge Instructions: - Discharge Summary Sheet pm1 - General Headache Without Cause pm1 Forms: - Medication Reconciliation Form pm1 - Thank You Letter pm1 - Antibiotic Education pm1 - Prescription Opioid Use pm1 Signatures: Juan A Jarrell MD MD rn Marinas, Patrick, NP SOLID SURFACE FABRICATOR pm1 Laila Price RN RN vg1 Ginny Alves, RN RN jh6
--- NOTE | 2021-08-05 12:53 | ER ---
Nurse's Notes [facility] Name: Chente Minaya Age: 51 yrs Sex: Male : 1970 Arrival Date: 08/05/2021 Time: 11:28 Bed 9 Private MD: Diagnosis: Headache Presentation: 08/05 11:45 Chief complaint: Patient states: Headache for about a week, went to PCP "on Friday and vg1 was given a shot of Toradol and some pain meds but is not working at all". States nausea no vomiting, blurred vision and dizziness. Coronavirus screen: Vaccine status: Patient reports being unvaccinated. Client denies travel out of the [place] in the last 14 days. Ebola Screen: Patient negative for fever greater than or equal to 101.5 degrees Fahrenheit, and additional compatible Ebola Virus Disease symptoms. Initial Sepsis Screen: Does the patient meet any 2 criteria? No. Patient's initial sepsis screen is negative. Does the patient have a suspected source of infection? No. Patient's initial sepsis screen is negative. Risk Assessment: Do you want to hurt yourself or someone else? Patient reports no desire to harm self or others. Onset of symptoms was July 29, 2021. 11:45 Method Of Arrival: Ambulatory vg1 11:45 Acuity: GILDARDO 3 vg1 Triage Assessment: 11:49 Headache History: The patient has had previous headaches and this one is more severe vg1 than previous episodes. General: Appears in no apparent distress. uncomfortable, Behavior is calm, cooperative. Pain: Complains of pain in head Pain currently is 8 out of 10 on a pain scale. Quality of pain is described as pressure, throbbing, Pain began about a week ago Also complains of nausea. Neuro: Level of Consciousness is awake, alert, obeys commands, Oriented to person, place, time, situation. Historical: - Allergies: 11:49 Bactrim; vg1 11:49 mushroom; vg1 11:49 PENICILLINS; vg1 11:49 Sulfa (Sulfonamide Antibiotics); vg1 11:49 surgical steel; vg1 11:49 tramadol; vg1 11:49 Tylenol-Codeine #3; vg1 11:49 Tylenol-Codeine #4; vg1 - Home Meds: 11:49 losartan oral [Active]; Propranolol Oral [Active]; carvedilol oral [Active]; Levemir vg1 [Active]; Fioricet Oral [Active]; Testosterone [Active]; anastrozole oral [Active]; - PMHx: 11:49 Depression; Diabetes - NIDDM; food bolus; GERD; hiatal hernia; Migraines; neuropathy; vg1 - PSHx: 11:49 multiple upper GI procedures; Appendectomy; vg1 - Immunization history:: Client reports having NOT received the Covid vaccine. - Social history:: Smoking status: Patient denies any tobacco usage or history of. Screenin:20 Abuse screen: Denies threats or abuse. Nutritional screening: No deficits noted. jh6 Tuberculosis screening: No symptoms or risk factors identified. Fall Risk None identified. Assessment: 12:41 General: Appears in no apparent distress. Behavior is calm, cooperative. Pain: jh6 Complains of pain in face Pain currently is 10 out of 10 on a pain scale. Quality of pain is described as throbbing. Vital Signs: 11:45 BP 131 / 91; Pulse 80; Resp 18; Temp 98.6(O); Pulse Ox 98% ; Weight 136.08 kg; Height 6 vg1 ft. 2 in. (187.96 cm); Pain 8/10; 13:29 BP 130 / 65; Pulse 76; Resp 16; Temp 97.8; Pulse Ox 100% on R/A; Pain 5/10; jh6 11:45 Body Mass Index 38.52 (136.08 kg, 187.96 cm) vg1 ED Course: 11:28 Patient arrived in ED. mr 11:49 Triage completed. vg1 11:49 Arm band placed on. vg1 11:56 Dedrick Atkinson NP is PHCP. pm1 11:56 Juan A Jarrell MD is Attending Physician. pm1 11:58 Ginny Alves RN is Primary Nurse. jh6 12:38 Inserted saline lock: 18 gauge in left antecubital area, using aseptic technique. jh6 12:42 Call light in reach. Side rails up X 1. jh6 12:42 No provider procedures requiring assistance completed. jh6 13:29 IV discontinued, intact, bleeding controlled, No redness/swelling at site. Pressure jh6 dressing applied. Administered Medications: 12:35 Drug: Benadryl (diphenhydrAMINE) 25 mg Route: IVP; Site: left antecubital; 6 13:31 Follow up: Response: No adverse reaction 6 12:35 Drug: Dilaudid (HYDROmorphone) 1 mg Route: IVP; Site: left antecubital; 6 13:10 Follow up: Response: Pain is decreased 6 12:43 Drug: Zofran (Ondansetron) 4 mg Route: IVP; Site: left antecubital; 6 13:10 Follow up: Response: Pain is decreased [facility] Outcome: 12:52 Discharge ordered by MD. pm1 13:30 Discharged to home ambulatory. 6 13:30 Condition: improved 13:30 Discharge instructions given to patient, Instructed on discharge instructions, follow up and referral plans. Demonstrated understanding of instructions, follow-up care. 13:31 Patient left the ED. 6 Signatures: Yoeslin Dc DemetrioDedrick NP ARTIST AND REPERTOIRE MANAGER pm1 Laila Price RN RN 1 Ginny Alves RN RN jh6
[2021-08-05 13:40] VITALS: BP 130/65; TEMP 97.8; O2SAT 100
== END 2021-08-05 13:31 | disposition home or self-care (01) ==
LOC: ER 11:24
DX: R51.9 Headache, unspecified (principal); E11.9 Type 2 diabetes mellitus without complications; F32.A Depression, unspecified; Z88.0 Allergy status to penicillin; Z88.1 Allergy status to other antibiotic agents; Z88.2 Allergy status to sulfonamides; Z88.5 Allergy status to narcotic agent; Z88.8 Allergy status to other drugs, medicaments and biological substances; Z91.018 Allergy to other foods; Z91.048 Other nonmedicinal substance allergy status
CPT/HCPCS: 96375; 96374; 99283; J1200; J1170; J2405

== ENCOUNTER 2021-08-11 20:47 | Emergency (ER) | payer OTHER ==
--- OUTSIDE RECORDS SUMMARY | 2021-08-11 20:52 | XMS REPORT | Continuity of Care Document ---
:[address] [facility] t Address [address] [place] [address] Care Team Providers Name Role Phone ANENE Attending Clinician Unavailable Luz Maria Bernal MD Attending Clinician LUZ MARIA BERNAL Attending Clinician Unavailable LUZ MARIA BERNAL Attending Clinician Unavailable Cassy Ashby Attending Clinician CASSY APPLE Attending Clinician Unavailable Doctor Unassigned, Name Attending Clinician Unavailable David MILLER S Attending Clinician Fidencio Attending Clinician Jf ECHEVERRIA Attending Clinician Pavithra ECHEVERRIA Attending Clinician PAVITHRA Attending Clinician Unavailable Pvaithra ECHEVERRIA Admitting Clinician PAVITHRA Admitting Clinician Unavailable Problems Condition Condition Condition Status Onset Resolution Last Treating Co mments Source Name Details Category Date Date Treatment Clinician Date Abdominal Abdominal Disease Active 2019- Uni vers pain pain 2-20 ity of 00:00: [address] Branch Obesity Obesity Disease Active Univers (BMI (BMI 2-19 ity of 30-39.9) 30-39.9) 00:00: [address] Acute Acute Disease Active 2019- Univers postoperat postoperat 2-19 it y of momo momo 00:00: [place] abdominal abdominal 00 Medi kyrie pain pain [...] Quantity Comments Source Exposure to Not sure [facility] SARS-CoV-2 [place] [facility] (event) Branch Sex Assigned At [facility] [place] [facility] Tobacco use and 2020-04-24 2020-04-24 Never used Universit y of exposure 00:00:00 00:00:00 [facility] Branch Alcohol intake 2020-04-24 2020-04-24 Current drinker Unive rsity of 00:00:00 00:00:00 of alcohol [facility] (finding) Branch History SDOH 2019-11-03 2019-11-03 5 University o f Financial 00:00:00 00:00:00 [facility] Branch Smoking Status Start Date Stop Date Source Former smoker 2020-04-24 00:00:00 2020-04-24 00:00:00 [facility] [place] [facility] Medications Ordered Filled Start Stop Current Ordering Indication Dosage Frequency Signature Comments Components Source Medication Medication Date Date Medication? Clinician (SIG) Name Name divalproex 2020-0 Yes [id number] 250mg Take 1 Univers ER 250 mg 8-10 tablet by ity o f 24 hr 00:00: mouth 2 [place] tablet 00 (two) Medical times [place] daily. divalproex 2020-0 Yes [id number] 250mg Take 1 Univers ER 250 mg 8-10 tablet by ity o f 24 hr 00:00: mouth 2 [place] tablet 00 (two) Medical times [place] daily. water for 2020-0 Yes PRN, Univers irrigation -24 Starting ity o f irrigation 03:19: Angelina [place] solution 00 04/06/20 at Medic al 2218, [place] Until Discontinu ed, Routine, Intra-op simethicone 2020-0 Yes PRN, Univer s (GAS RELIEF -24 Starting ity of (SIMETHICON 03:19: Angelina [place] E)) 40 00 04/06/20 at Medical mg/0.6 mL 2218, [place] drops Until Discontinu ed, Routine, Intra-op glucagon [...] Sat Med ical tablet 1 02/19/20 at [place] tablet 2015, MANDEEP NaCl 0.9% 2020-0 2020- [...] o f human 22:45: 21:54 us, ONCE, [place] (HUMULIN R) 00 :00 1 dose, Medic al injection 02/19/20 Bran ch 10 Units at 1745, STAT NaCl 0.9% 2019- No 1000mL at 999 Uni vers (NS) bolus 02-18 mL/hr, ity of infusion 21:45: 23:27 1,000 mL, Danie as 1,000 mL 00 :00 IV Medical Infusion, [place] ONCE, 1 dose, 02/19/20 at 1645, STAT [...] ity of dextrose 21:45: 21:21 ONCE, 1 [place] (CLEOCIN) 00 :00 dose, Sat Medic al [...] Branch 1630, MANDEEP traMADol 50 2019-0 Yes [id number] 50mg Take 1 Univers mg tablet 6-06 tablet by ity o f 00:00: mouth [place] 00 every 6 Medical (six) Branch hours as needed for Pain (scale 4-6). traMADol 50 2019-0 Yes [id number] 50mg Take 1 Univers mg tablet 6-06 tablet by ity o f 00:00: mouth [place] 00 every 6 Medical (six) Branch hours as needed for Pain (scale 4-6). traMADol 50 2019-0 Yes [id number] 50mg Take 1 Univers mg tablet 6-06 tablet by ity o f 00:00: mouth [place] 00 every 6 Medical (six) Branch hours as needed for Pain (scale 4-6). traMADol 50 2019-0 Yes [id number] 50mg Take 1 Univers mg tablet 6-06 tablet by ity o f 00:00: mouth [place] 00 every 6 Medical (six) Branch hours as needed for Pain (scale 4-6). traMADol 50 2019-0 Yes [id number] 50mg Take 1 Univers mg tablet 6-06 tablet by ity o f 00:00: mouth [place] 00 every 6 Medical (six) Branch hours as needed for Pain (scale 4-6). traMADol 50 2019-0 Yes [id number] 50mg Take 1 Univers mg tablet 6-06 tablet by ity o f 00:00: mouth [place] 00 every 6 Medical (six) Branch hours as needed for Pain (scale 4-6). clindamycin 2019-0 2020- No [id number] 450mg Take 3 Univers 150 mg 02-18-17 capsules ity of capsule 00:00: 04:59 by mouth 3 Danie as 00 :00 (three) Medical times Branch daily for 10 days. glipiZIDE 2019-0 Yes [id number] 10mg Take 1 Un grabiel 10 mg 2-22 tablet by ity of tablet 00:00: mouth 2 [place] 00 (two) Medical times Branch daily before breakfast and dinner. HYDROcodone 2020-0 Yes [id number] 1{tbl} Take 1 Univers -acetaminop 2-22 tablet by ity of hen 5-325 00:00: mouth [place] mg tablet 00 every 6 Medical (six) Branch hours as needed for Pain (scale 7-10). glipiZIDE 2020-0 Yes [id number] 10mg Take 1 Un grabiel 10 mg 2-22 tablet by ity of tablet 00:00: mouth 2 [place] 00 (two) Medical times Branch daily before breakfast and dinner. HYDROcodone 2020-0 Yes [id number] 1{tbl} Take 1 Univers -acetaminop 2-22 tablet by ity of hen 5-325 00:00: mouth [place] mg tablet 00 every 6 Medical (six) Branch hours as needed for Pain (scale 7-10). glipiZIDE 2020-0 Yes [id number] 10mg Take 1 Un grabiel 10 mg 2-22 tablet by ity of tablet 00:00: mouth 2 [place] 00 (two) Medical times Branch daily before breakfast and dinner. HYDROcodone 2020-0 Yes [id number] 1{tbl} Take 1 Univers -acetaminop 2-22 tablet by ity of hen 5-325 00:00: mouth [place] mg tablet 00 every 6 Medical (six) Branch hours as needed for Pain (scale 7-10). glipiZIDE 2020-0 Yes [id number] 10mg Take 1 Un grabiel 10 mg 2-22 tablet by ity of tablet 00:00: mouth 2 [place] 00 (two) Medical times Branch daily before breakfast and dinner. HYDROcodone 2020-0 Yes [id number] 1{tbl} Take 1 Univers -acetaminop 2-22 tablet by ity of hen 5-325 00:00: mouth [place] mg tablet 00 every 6 Medical (six) Branch hours as needed for Pain (scale 7-10). glipiZIDE 2020-0 Yes [id number] 10mg Take 1 Un grabiel 10 mg 2-22 tablet by ity of tablet 00:00: mouth 2 [place] 00 (two) Medical times Branch daily before breakfast and dinner. HYDROcodone 2020-0 Yes [id number] 1{tbl} Take 1 Univers -acetaminop 2-22 tablet by ity of hen 5-325 00:00: mouth [place] mg tablet 00 every 6 Medical (six) Branch hours as needed for Pain (scale 7-10). glipiZIDE 2020-0 Yes [id number] 10mg Take 1 Un grabiel 10 mg 2-22 tablet by ity of tablet 00:00: mouth 2 [place] 00 (two) Medical times Branch daily before breakfast and dinner. HYDROcodone 2020-0 Yes [id number] 1{tbl} Take 1 Univers -acetaminop 2-22 tablet by ity of hen 5-325 00:00: mouth [place] mg tablet 00 every 6 Medical (six) Branch hours as needed for Pain (scale 7-10). glipiZIDE 2020-0 Yes [id number] 10mg Take 1 Un grabiel 10 mg 2-22 tablet by ity of tablet 00:00: mouth 2 [place] 00 (two) Medical times Branch daily before breakfast and dinner. HYDROcodone 2020-0 Yes [id number] 1{tbl} Take 1 Univers -acetaminop 2-22 tablet by ity of hen 5-325 00:00: mouth [place] mg tablet 00 every 6 Medical (six) Branch hours as needed for Pain (scale 7-10). glipiZIDE 2020-0 Yes [id number] 10mg Take 1 Un grabiel 10 mg 2-22 tablet by ity of tablet 00:00: mouth 2 [place] 00 (two) Medical times Branch daily before breakfast and dinner. HYDROcodone 2020-0 Yes [id number] 1{tbl} Take 1 Univers -acetaminop 2-22 tablet by ity of hen 5-325 00:00: mouth [place] mg tablet 00 every 6 Medical (six) Branch hours as needed for Pain (scale 7-10). glipiZIDE 2020-0 Yes [id number] 10mg Take 1 Un grabiel 10 mg 2-22 tablet by ity of tablet 00:00: mouth 2 [place] 00 (two) Medical times Branch daily before breakfast and dinner. HYDROcodone 2020-0 Yes [id number] 1{tbl} Take 1 Univers -acetaminop 2-22 tablet by ity of hen 5-325 00:00: mouth [place] mg tablet 00 every 6 Medical (six) Branch hours as needed for Pain (scale 7-10). ciprofloxac 2020-0 2020- No [id number] 500mg Take 1 Univers in HCl 500 2-22 03-01 tablet by ity of mg tablet 00:00: 05:59 mouth [place] 00 :00 every 12 Medical (twelve) Branch hours for 7 days. metroNIDAZO 2019- 2020- No [id number] 500mg Take 1 Univers LE 500 mg [...] ity o f (PF)) 17:00: 16:06 Push, [place] injection 00 :00 ONCE, 1 Medical 100 mcg dose, [facility] Branch 11/03/19 at 1100, Routine ondansetron 2019- No 4mg 4 mg, Slow Univers (ZOFRAN 11-03 IV Push, ity of (PF)) 17:00: 16:06 ONCE, 1 [place] injection 4 00 :00 dose, Wed Med ical mg 11/03/19 at Branch 1100, MANDEEP cyclobenzap 2018-09 2020- No [id number] 5mg Take 1 Univers rine 5 mg 011-06 9100 tablet by ity of tablet 00:00: 00:00 mouth 3 [place] 00 :00 (three) Medical times Branch daily. traMADol 2018-09 2020- No [id number] 50mg Take 1 Univers (ULTRAM) 50 11-06 [...] 2020-04-24 13:23:00 129 mm[Hg] Univer sity of [facility] Diastolic blood 2020-04-24 13:23:00 81 mm[Hg] Unive rsity of [facility] Heart rate 2020-04-24 13:23:00 82 /min Universi ty [facility] Body weight 2020-04-24 13:23:00 138.075 [address]i [address] [facility] BMI 2020-04-24 13:23:00 39.08 kg/m2 Universi ty [facility] Systolic blood 2020-04-24 13:23:00 129 mm[Hg] Univer sity of [facility] Diastolic blood 2020-04-24 13:23:00 81 mm[Hg] Unive rsity of [facility] Heart rate 2020-04-24 13:23:00 82 /min Universi ty [facility] Body weight 2020-04-24 13:23:00 138.075 [address]i [address] [facility] BMI 2020-04-24 13:23:00 39.08 kg/m2 Universi ty [facility] Systolic blood 2020-04-07 03:51:00 118 mm[Hg] Univer sity of [facility] Diastolic blood 2020-04-07 03:51:00 68 mm[Hg] Unive rsity of [facility] Heart rate 2020-04-07 03:51:00 92 /min Universi ty [facility] Respiratory rate 2020-04-07 03:51:00 16 /[facility] in 2020-04-07 03:51:00 100 /min University of Arterial blood by [facility] kyrie Pulse oximetry Branch Body temperature 2020-04-07 03:40:00 36.44 Leonor Univ ersity of [place] [facility] Body weight 2020-04-07 00:07:00 129.275 kg [facility] [place] [facility] BMI 2020-04-07 00:07:00 36.59 kg/m2 [facility] [place] [facility] Heart rate 2020-02-19 23:10:00 105 /min [facility] [place] [facility] Respiratory rate 2020-02-19 23:10:00 29 /min Univ ersity [facility] [place] [facility] Oxygen saturation in 2020-02-19 23:10:00 94 /min University of Arterial blood by [facility] kyrie Pulse oximetry Branch Systolic blood 2020-02-19 23:00:00 127 mm[Hg] Univer sity of pressure [place] [facility] Diastolic blood 2020-02-19 23:00:00 78 mm[Hg] Unive rsity of pressure [place] [facility] Body temperature 2020-02-19 22:04:10 37.33 Leonor Univ ersity [facility] [place] [facility] Body height 2020-02-19 19:56:00 188 cm [facility] [place] [facility] Body weight 2020-02-19 19:56:00 129.275 kg [facility] [place] [facility] BMI 2020-02-19 19:56:00 36.59 kg/m2 [facility] [place] [facility] Systolic blood 2019-11-06 17:14:00 138 mm[Hg] Univer sity of pressure [place] [facility] Diastolic blood 2019-11-06 17:14:00 88 mm[Hg] Unive rsity of pressure [place] [facility] Heart rate 2019-11-06 17:14:00 102 /min [facility] [place] [facility] Respiratory rate 2019-11-06 17:14:00 18 /min Univ ersity [facility] [place] [facility] Oxygen saturation in 2019-11-06 17:14:00 96 /min University of Arterial blood by [facility] Pulse oximetry Branch Body temperature 2019-11-06 14:00:00 36.72 Leonor Univ ersity [facility] [place] [facility] Body height 2019-11-03 23:00:00 188 cm [facility] [place] [facility] Body weight 2019-11-03 15:22:00 129.275 kg [facility] [place] [facility] BMI 2019-11-03 15:22:00 36.58 kg/m2 [facility] Procedures Procedure Date / Time Performing Clinician Source Performed EGD (ENDO) 2020-04-07 02:31:21 Lisa [facility] COMP. METABOLIC PANEL 2020-04-07 01:52:00 Yazmin Apple [facility] ([id number]) Medical Branch CBC WITH DIFF 2020-04-07 01:52:00 Yazmin Apple Cassy [place] o f [facility] XR NECK SOFT TISSUE 2020-04-07 00:57:29 Yazmin Apple [facility] COVID-19 (ID NOW RAPID 2020-04-07 00:40:00 Yazmin Apple [facility] TESTING) Medical Branch NOTICE OF PRIVACY 2020-04-06 23:57:19 [facility] Unassigned, No [facility] Branch CONSENT/REFUSAL FOR 2020-04-06 23:57:05 Doctor Unassigned, No Un iversity of [place] DIAGNOSIS AND TREATMENT Name Medical Branch REFERRAL- 2020-03-29 05:01:00 Doctor Unassigned, No [facility] REQUEST/RESPONSE Name Medical Branch POCT GLUCOSE 2020-02-19 23:05:00 Meggan Hernandez [facility] (AUTOMATED) Medical Branch POCT GLUCOSE 2020-02-19 21:52:00 Meggan Hernandez [facility] (AUTOMATED) Medical Branch COMP. METABOLIC PANEL 2020-02-19 20:47:00 Meggan Hernandez [facility] ([id number]) Medical Branch CBC WITH DIFFERENTIAL 2020-02-19 20:47:00 Meggan Hernandez [facility] Medical [place] COVID-19 (ID NOW RAPID 2020-02-19 20:47:00 Meggan Hernandez [facility] TESTING) Medical Branch NOTICE OF PRIVACY 2020-02-19 19:53:34 Doctor Unassigned, No Univ ersity [facility] PRACTICES Name Medical Branch CONSENT/REFUSAL FOR 2020-02-19 19:53:23 Doctor Unassigned, No Un iversity of [place] DIAGNOSIS AND TREATMENT Name Medical Branch POCT GLUCOSE 2019-11-06 13:36:00 Luis Mandujano [facility] (AUTOMATED) Medical Branch POCT GLUCOSE 2019-11-06 01:48:00 [facility] POCT GLUCOSE 2019-11-05 22:16:00 Pavithra [facility] (AUTOMATED) Medical Branch POCT GLUCOSE 2019-11-05 17:26:00 Pavithra [facility] (AUTOMATED) Medical Branch POCT GLUCOSE 2019-11-05 13:21:00 Pavithra [facility] (AUTOMATED) Medical Branch BASIC METABOLIC PANEL 2019-11-05 10:28:00 [facility] (NA, K, CL, CO2, Medical Branch GLUCOSE, BUN, CREATININE, CA) CBC WITH DIFFERENTIAL 2019-11-05 10:28:00 [facility] Medical Branch POCT GLUCOSE 2019-11-05 10:12:00 [facility] Branch POCT GLUCOSE 2019-11-05 06:12:00 Pavithra [facility] (AUTOMATED) Medical Branch POCT GLUCOSE 2019-11-05 01:41:00 Pavithra [facility] (AUTOMATED) Medical Branch POCT GLUCOSE 2019-11-04 22:26:00 Pavithra [facility] (AUTOMATED) Medical Branch POCT GLUCOSE 2019-11-04 17:20:00 Pavithra [facility] (AUTOMATED) Medical Branch POCT GLUCOSE 2019-11-04 13:21:00 Pavithra [facility] (AUTOMATED) Medical Branch POCT GLUCOSE 2019-11-04 11:57:00 Pavithra [facility] (AUTOMATED) Medical Branch POCT GLUCOSE 2019-11-04 05:30:00 Pavithra [facility] (AUTOMATED) Medical Branch POCT GLUCOSE 2019-11-04 02:17:00 Pavithra [facility] (AUTOMATED) Medical Branch POCT GLUCOSE 2019-11-03 23:23:00 Pavithra [facility] (AUTOMATED) Medical Branch POCT GLUCOSE 2019-11-03 21:41:00 Pavithra [facility] (AUTOMATED) Medical Branch SURGICAL PATHOLOGY EXAM 2019-11-03 20:26:00 Yonatan Lund Uni versity [facility] LAPAROSCOPIC 2019-11-03 19:24:00 Yonatan Lund [facility] APPENDECTOMY [facility] CT ABDOMEN PELVIS W 2019-11-03 17:41:22 Ervin Rhoades [facility] CONTRAST [facility] Branch LIPASE 2019-11-03 15:35:00 Ervin Rhoades [facility] COMP. METABOLIC PANEL 2019-11-03 15:35:00 Ervin Rhoades [facility] ([id number]) [facility] CBC WITH DIFFERENTIAL 2019-11-03 15:35:00 Jf [facility] GLYCOSYLATED HEMOGLOBIN 2019-11-03 15:35:00 Meggan Pichardo [facility] (A1C) [facility] URINALYSIS 2019-11-03 15:35:00 Jf [facility] Encounters Start End Encounter Admission Attending Care Care Encounter Source Date/Time Date/Time Type Type Clinicians Facility Department ID 2020-08-15 2020-08-15 Outpatient R [facility] [id number] Univers 10:00:00 10:00:[id number]-08-[facility] 2020-08-15 Outpatient R [facility] [id number] Univers 10:00:00 10:00:00 SILVINA [facility] 2020-08-14 2020-08-14 Outpatient R [facility] [id number] Univers 10:40:00 10:40:00 [id number] [facility] 2020-04-24 2020-04-24 Office [facility] [id number] 08:15:37 08:49:56 Visit Norberto Ward [id number] [place] [id number] Profsaleem [phone] nal 092 Building 2020-04-24 2020-04-24 [facility] [id number] [facility] 08:15:37 08:49:56 Visit Norberto Ward [id number] [place] [id number] [place] Profess[place] [phone] La dical nal 092 [facility] 2020-04-24 2020-04-24 Outpatient R NORBERTO BERNAL [facility] [id number] Univers 08:00:00 08:00:00 NORBERTO BERNAL ity of [facility] 2020-04-06 2020-04-06 Emergency Yazmin Apple [facility] [id number] Univers 19:12:13 22:55:00 Cassy Ward [id number] i ty of [place] [id number] [place] [id number] [facility] 071 [place] 2020-04-06 2020-04-06 Emergency X Yazmin APPLE [facility] ERT [id number] Univers 19:12:13 19:12:13 ity of [facility] 2020-04-06 2020-04-06 Orders Doctor SNEED [id number] Univers 00:00:00 00:00:00 Only Unassigned, MIRI [id number] ity of [place] [facility] [id number] [place]ie as [id number] [facility] 009 [place] 2020-03-29 2020-03-29 Orders Doctor SNEED [id number] Univers 00:00:00 00:00:00 Only Unassigned, MIRI [id number] ity of [facility] [id number] [place] as [id number] [facility] 009 [place] 2020-02-19 2020-02-19 Emergency [facility] [id number] Univers 15:07:18 19:22:00 Meggan [place] [id number] i ty of [place] 4[place].2.686 [place] [id number] [facility] 084 [place] 2020-02-19 2020-02-19 Emergency X [facility] ERT [id number] Univers 14:53:00 14:53:00 ity of [facility] 2020-02-19 2020-02-19 Orders Doctor SNEED [id number] [id number] Univers 00:00:00 00:00:00 Only Unassigned, MIRI [id number] ity of [facility] [id number] [place]ie as [id number] [facility] 009 Branch 2019-11-08 2019-11-08 Transition Faraz Nicolas [id number] Univers 00:00:00 00:00:00 of Care Hortensia De Jesus [id number] ity of [place] [id number] [place] [id number] [facility] 403 Branch 2019-11-03 2019-11-06 Hospital Ervin Rhoades [facility] 1.2.840.1 [id number] Univers 09:25:15 12:00:00 Encounter Luis Mandujano [id number] ity of [place] [id number] [place] [id number] [facility] 080 Branch 2019-11-03 2019-11-06 Inpatient X PAVITHRA [facility] TIMOTEO [id number] Univers 09:25:15 12:00:[address] [facility] Results Test Description Test Time Test Comments Results Result Comments Source COMP. METABOLIC PANEL (31907) 2020-04-07 03:03:00 Test Item Value Reference Range Interpretation Comme nts NA (test code = 0235720846) 139 mmol/L 135-145 K (test code = 8359944553) 4.4 mmol/L 3.5-5 CL (test code = 4646500087) 101 mmol/L 98-108 CO2 TOTAL (test code = 8519140879) 28 mmol/L 23-31 AGAP (test code = 6002395710) 2-16 BUN (test code = 1967776371) 11 mg/dL 7-23 GLUCOSE (test code = 0720690252) 225 mg/dL 70-110 H CREATININE (test code = 0.98 mg/dL 0.6-1.25 1008422424) TOTAL BILI (test code = 0.5 mg/dL 0.1-1.3 8180582853) CALCIUM (test code = 4263335325) 9.6 mg/dL 8.6-10.6 T PROTEIN (test code = 7293998669) 8.2 g/dL 6.3-8.2 ALBUMIN (test code = 8756352576) 4.7 g/dL 3.5-5 ALK PHOS (test code = 1816512008) 75 U/L 34-122 ALTv (test code = 1742-6) 74 U/L 5-50 H AST(SGOT) (test code = 4719173303) 39 U/L 13-40 eGFR Calculation (Non- mL/min/1.73m2 Swiss) (test code = 0291225164) eGFR Calculation ( mL/min/1.73m2 Swiss) (test code = 8407830176) KATE (test code = KATE) Association of [...] tests). Lab Interpretation (test code = Abnormal 62947-5) General acute hospital WITH [id number] 02:12:00 Test Item Value Reference Range Interpretation Comments WBC (test code = See_Comment [Automated 4090-2) message] The sy stem which generated this [...] (test code = 36.4 fL 38.5-51.6 L 89698-9) RDW-CV (test code = 12.5 % 12.1-15.4 788-0) PLT (test code = See_Comment [Automated 777-3) message] The sy stem which generated this result transmitted reference range : 150 - 328 10*3/ ?L. The reference r jevon was not used to interpret this result as normal/abnormal . MPV (test code = 11.5 fL 9.8-13 09395-9) NRBC/100 WBC (test See_Comment [Automat ed code = 5225847655) message] The system which generated this result transmitted reference range : 0.0 - 10.0 /100 WBCs. The refer ence range was not u sed to interpret th is result as normal/abnormal . NRBC x10^3 (test code <0.01 See_Comment [Auto mated = 8898205001) message] The s ystem which generated this result transmitted reference range : 10*3/?L. The reference range was not used to interpret this result as normal/abnormal . GRAN MAT (NEUT) % 68.0 % (test code = 770-8) IMM GRAN % (test code 0.40 % = 1478809127) LYMPH % (test code = 23.8 % 736-9) MONO % (test code = 4.7 % 5905-5) EOS % (test code = 2.7 % 713-8) BASO % (test code = 0.4 % 706-2) GRAN MAT x10^3(ANC) 5.24 10*3/uL 1.99-6.95 (test code = 8705780175) IMM GRAN x10^3 (test 0.03 10*3/uL 0-0.06 code = 2245112262) LYMPH x10^3 (test code 1.83 10*3/uL 1.09-3.23 = 731-0) MONO x10^3 (test code 0.36 10*3/uL 0.36-1.02 = 742-7) EOS x10^3 (test code = 0.21 10*3/uL 0.06-0.53 711-2) BASO x10^3 (test code 0.03 10*3/uL 0.01-0.09 = 704-7) Lab Interpretation Abnormal (test code = 39525-6) [facility]2020-04-07 01:40:00 Test Item Value Reference Range Interpretation Comments SARS-CoV-2 Rapid ID NOW Not Detected Not Detected (test code = 99124-3) KATE (test code = KATE) ID NOW COVID-19 Assay is an isothermal nucleic acid amplification test intended for the qualitative detection of nucleic acid from SARS-CoV-2 viral RNA in nasopharyngeal (RRT) specimens. It is used under Emergency Use [...] indicated. Lab Interpretation Normal (test code = 72484-0) [facility] N[facility] SOFT [id number] 01:06:58 FINDINGS/IMPRESSION:: Frontal and lateral radiographs of [...] spondylotic changes at C5-C6. Cervical spine is otherwiseunremarkable.[facility] GLUCOSE (AUTOMATED) 2020-02-19 23:08:00 Test Item Value Reference Range Interpretation Comments POCT GLU (test code = 8178281533) 243 mg/dL 70-110 H Lab Interpretation (test code = Abnormal 60809-0) [facility] GLUCOSE (AUTOMATED)2020-02-19 21:58:00 Test Item Value Reference Range Interpretation Comments POCT GLU (test code = 6516313582) 313 mg/dL 70-110 H Lab Interpretation (test code = Abnormal 81481-7) [facility] NOW RAPID TESTING)2020-02-19 21:31:00 Test Item Value Reference Range Interpretation Comments SARS-CoV-2 Rapid ID NOW Not Detected Not Detected (test code = 66436-0) KATE (test code = KATE) ID NOW COVID-19 Assay is an isothermal nucleic acid amplification test intended for the qualitative detection of nucleic acid from SARS-CoV-2 viral RNA in nasopharyngeal (RRT) specimens. It is used under Emergency Use [...] indicated. Lab Interpretation Normal (test code = 27235-8) [facility]. METABOLIC PANEL ([id number])2020-02-19 21:29:00 Test Item Value Reference Range Interpretation Comments NA (test code = 134 mmol/L 135-145 L 4062789692) K (test code = 4.1 mmol/L 3.5-5 6987000409) CL (test code = 99 mmol/L 98-108 1499271168) CO2 TOTAL (test code = 27 mmol/L 23-31 6462764177) AGAP (test code = 2-16 4436406985) BUN (test code = 10 mg/dL 7-23 5271948319) GLUCOSE (test code = 372 mg/dL 70-110 H 5458008953) CREATININE (test code = 0.96 mg/dL 0.6-1.25 2966150060) TOTAL BILI (test code = 0.4 mg/dL 0.1-1.8 8901562499) CALCIUM (test code = 9.2 mg/dL 8.6-10.6 3502504546) T PROTEIN (test code = 7.5 g/dL 6.3-8.2 6521158266) ALBUMIN (test code = 4.5 g/dL 3.5-5 3808641337) ALK PHOS (test code = 86 U/L 34-122 3754982672) ALTv (test code = 48 U/L 5-50 1742-6) AST(SGOT) (test code = 27 U/L 13-40 5456383441) eGFR Calculation mL/min/1.73m2 (Non-) (test code = 9179821638) eGFR Calculation mL/min/1.73m2 () (test code = 6796922043) KATE (test code = KATE) Association of [...] tests). Lab Interpretation Abnormal (test code = 17102-4) [facility] WITH [id number] 21:06:00 Test Item Value Reference Range Interpretation Comments WBC (test code = See_Comment [Automated 6204-2) message] The sy stem which generated this result transmitted reference range : 4.20 - 10.70 10*3/?L. The reference range was not used to interpret this result as normal/abnormal . RBC (test code = See_Comment H [Automated 868-8) message] The sy stem which generated this [...] (test code = 36.3 fL 38.5-51.6 L 11066-6) RDW-CV (test code = 12.9 % 12.1-15.4 788-0) PLT (test code = See_Comment [Automated 777-3) message] The sy stem which generated this result transmitted reference range : 150 - 328 10*3/ ?L. The reference r jevon was not used to interpret this result as normal/abnormal . MPV (test code = 11.3 fL 9.8-13 19980-2) NRBC/100 WBC (test See_Comment [Automat ed code = 8472191848) message] The system which generated this result transmitted reference range : 0.0 - 10.0 /100 WBCs. The refer ence range was not u sed to interpret th is result as normal/abnormal . NRBC x10^3 (test code <0.01 See_Comment [Auto mated = 3144461655) message] The s ystem which generated this result transmitted reference range : 10*3/?L. The reference range was not used to interpret this result as normal/abnormal . GRAN MAT (NEUT) % 79.8 % (test code = 770-8) IMM GRAN % (test code 0.50 % = 7691602351) LYMPH % (test code = 13.4 % 736-9) MONO % (test code = 4.2 % 5905-5) EOS % (test code = 1.8 % 713-8) BASO % (test code = 0.3 % 706-2) GRAN MAT x10^3(ANC) 8.49 10*3/uL 1.99-6.95 H (test code = 8363103926) IMM GRAN x10^3 (test 0.05 10*3/uL 0-0.06 code = 2402822272) LYMPH x10^3 (test code 1.42 10*3/uL 1.09-3.23 = 731-0) MONO x10^3 (test code 0.45 10*3/uL 0.36-1.02 = 742-7) EOS x10^3 (test code = 0.19 10*3/uL 0.06-0.53 711-2) BASO x10^3 (test code 0.03 10*3/uL 0.01-0.09 = 704-7) Lab Interpretation Abnormal (test code = 33102-3) [facility] GLUCOSE (AUTOMATED)2019-11-06 13:38:00 Test Item Value Reference Range Interpretation Comments POCT GLU (test code = 0791507892) 116 mg/dL 70-110 H Lab Interpretation (test code = Abnormal 87744-6) [facility] GLUCOSE (AUTOMATED)2019-11-06 12:29:00 Test Item Value Reference Range Interpretation Comments POCT GLU (test code = 7469723861) 322 mg/dL 70-110 H Lab Interpretation (test code = Abnormal 96598-4) [facility] GLUCOSE (AUTOMATED)2019-11-06 12:29:00 Test Item Value Reference Range Interpretation Comments POCT GLU (test code = 3297312610) 230 mg/dL 70-110 H Lab Interpretation (test code = Abnormal 36661-0) [facility] GLUCOSE (AUTOMATED)2019-11-06 02:00:00 Test Item Value Reference Range Interpretation Comments POCT GLU (test code = 155 mg/dL 70-110 H Notifi ed Provider [id number]) Lab Interpretation (test Abnormal code = 92626-1) [facility] [id number]00 Test Item Value Reference Range Interpretation Comments Case Report (test code Surgical Pathology ? ? = [id number]) ?Case: [id number] ? Authorizing Provider: ?Yonatan Lund MD ? ? ? Collected: ? 11/03/2019 1426 ?Ordering Location: ? ? [facility] ? ? ?Received: ?11/03/2019 1555 ? [facility] ?Pathologist: ? Klaus Tinoco MD ? Specimen: ? ?APPENDIX, appendix ? Final Diagnosis (test t1xjdLUyQGVax8piWQPskM code = 0427955594) FuZzEwMzNcZnRuYmpcdWMx OZfhhzHmIFdzu6ZiQ6AvCq AwMFxhbnNpXGRlZmxhbmcx QFMxCWP0cfZgGMLaGYcgHW EgRRukRt2cmYPauPtjCjUk TOLzl4abaaQRcbohjSu2k4 blSMKyYhC4vWBsMBooN8gj yxEnrZIkHAFyDUh4zL75AQ HbcX9epZMoGGptvdZnHUoe kkVzsaCeQdt8APBiY2ydTM SvZJVlO7HeCU1xHARzQdf9 MRP8SGW1xGovj5Z2fZLgkC JleLlkEfZvHjIkORCBp3Xm RUd7bYexG6QvADIoWgC4pF QgUGFyYWdyYXBoIEZvbnQ7 kF11GSvdbuA9qFVec5Yzq2 2un262gR6bbDKtOPG9JMQn FUWhlQIcFYFgTDW0LJPruQ KwS1ylHCuaGG6rlfdbDEM7 MFxtYXJndDcyMFxtYXJnYj KwcCLnWQPfqQmkMKiom947 CIC7MzQhLU0iJ9Qzr3S4tL 9maXRcZGVmdGFiNzIwXGZv jo8jqSOrPDlrj4AmNWA3vm T9mHTytOZxLGNnXB34Afef u0UuEcodMRU3DMGnnwKfd0 Mbh1vrKaLadhLdY0sdU5Ja ZHJoZWFkXHBnYnJkcmZvb3 Owp1OmdQMzrLg9q0wjQMIr CAOjzSzdk8yrHXV5XIEcF4 E0wWPoi2adNVayVQRiyPG7 spHfQHBjjTHkJ1PltJ9uWP yySO2fbku3m8rbUmLwRE6x wwait3igCYwsXKQxTJE1Nd VkHYDxk5CqvghgIlLyg4Xk pUGrRRsuX25do351QOAbgz AlK1ordWZffmhyrKRpajlo MFxmczIwXHFsXHBsYWluXG FbTDTiMwMtwLkhhF0vIsYf ZnMyMFxwYXJccGFyZFxwbG FpblxmMFxmczIwXHBsYWlu KARnJGKnRuEoRP2yAEVRRR 5BYJzpULGILONJIDTNKO7T WTpccGFyXHFsXHBsYWluXG LwJJYuIcPnjOxrfD9sRvZq PvKnQAXkNTXuSV7zYABKBY OrRKPZQJ2CEESZYZgFTSkE XQfxEWKYZT2UQKBBIpUXQ3 lUSVNccGFyXHBhciBNYXR0 sDK5SMVyvVVmTOPKUQljIX JcrYyqmO1bBuXbVtQzWjhg XL1jTQYaZ5sgeEEwCLIwWT VdE4isDsYugM1yfXspREop ZjFcZnMyMiBIYXJzaHdhcm KeRL5jZHcpn0ZaYNRFROXr Im9hGE7mUXJtSKH3JhZfOM BNXHBsYWluXGYxXGZzMjBc eEUceShlynZuVJfye7UqF3 YyMjAwMFxhbnNpXGRlZmxh txcuEXFuAMO5lzQbLOQbQX tnEEAoCZquWx7htHKzhDat HcFbEMNqi8wpzbIQKEdiLg XjG702JMUiPYiuk2ftl2Fr LBOgvQJmt3B3JCGPrytsiM y6e1wvJxPnAeF4oIQzAGpb C5jzkjYcgGWyA0VhdFZgbM m4sJisM07kv7E3YomqK5pc FMIhIVMqM9RyCR2xVOAjBz n9SWO1MHV0HURuAEYvL7Qg KT5xANGniZOgBMn8q2gmmP xqCCVwKCB9i4kfOEidoyJ8 GP9vtz5jaKg6v4ieljJzMD WhUCFozHAKAHLmS8NhiGoq Gy2zaJf9aCgzDdquZKQ0Vh l6QO8tnb81gei5hFvtYWQw urgfHqE9WJtlYWOjlespPB b0MEvvPMMdcQL6LOQcxKIp L7HbECWeIO1jjsf5WLQ6FV dmUDErAzQ7KCYfvZWcXTOg xArwJUwhh120XSD5GuQtQQ 7kW5Fzy8A9pD6fcLWnENUt yNQiGpLiNCVwae3rpNVsQS yel9XzJOT9kcF6lKIrgAVo LOUeVI63Szbmx3YkOoihEX M9JVBgbnAet9Rly3ikJdQe hlBbD2gwO2WsPPMrOOIjEO XiZeDdfkDbx6Iap1LjsDPn zHk0g3znQMBkLFRbhNvmr6 dnUYX6RETcC6D3lCEyu3zh BHffEDNyxTL8nxP7ZCYfqV NeO1GdyK8yPJHdYB2svxn0 t3uxSPH3PVdfLPFfNdB7ue J3ASZllBEuKOStmLzhPTnx d428HPV7ViViSDWpz7UbR9 TrdQzxY09zbVngT93uCLLq kThzgV8neLndxY9qUwInJi MyNFxxbFxwbGFpblxmMVxm czIwXGxhbmcxMDMzXGhpY2 gfCrWgFVMjtNptILywm2Of XGYxXGNmMlxmczIwXHBhci RPTUmuazWzhAFnh52gQVqb eSByZXZpZXdlZCBhbGwgc3 EiV7vfWI1vM3VfqVAongOk cnWcUOvxRUOhe0r0gDTwaD fpd2OmyIMhLE43ppOcRQWm WBB4FFRch5apVK67frdwIu FbaD16irKhjhQdYDXad0et Y4dnrTPrs9Nzq9TxptApHH tqt1HqOZ6gnFOwkbnqpIT5 WILuvTVtrnPrtvS0aFwxCC YxyX9qzA5skQnzzA1nUaUs XmPbKEnsEM8sFZEfS9rwnJ CvUTQzJHObZ4rcMiMhiK1r gXvyAxgwbbA2BUEdlc07 Clinical Information Acute abdomen (test code = 4232689767) Gross Description (test y8eauZOwVILvbNEjVsTlNT code = 8551523546) JwFXPgm5ryFTDxmBBgObUa MzNcZnRuYmpcdWMxXGRlZm Ytg5beq118sTUuc1efVLGz NaD7jPDqGCBgcUOwA343HG HxFGjxi4xnh8XtQVAjzYEw u7E3AWQBkslfhJn8hBhtD8 7ms4J9WjwwR5gyKPTpDZqe TUJwBYtblNPtTKZ5BQXuXM S4VSdhsuWpixX4FAeucHTj DwT5HCf8g9dxdOipDOYxTC U9g6gqMEbxvxYoUW9lhc4x dWy7r5nwwtVxLXQzIZHozO QSATHkD1RhiRoiJc4opJh0 pHaqOytqVDG7Adf4OR6jhs 94oie2aIngPZXevbzyDcL3 ALqrRALjmqjpLIr5AGyhLK ErrHUeTHUqjBIvH0RtWHnr ME9uqjt2TzLwPH8fpanqES qcDWViFOZ5KbZtYPKux6Yy odojYsAajw4xmz97UGV7b4 GwqBcaHSE4YMI0BuTiEx3r hVEmEVSqVG4eGxGptBEgFG Gdto33jIxdQBslurGvqP5k WdZfGERslEYoSFUyFF4ujN IoJOBipE3jaaziZLFeAoXa zvqpCREceGkcvcVxKx0snY yvHSF5GRmkW9scmC0rVbL7 HYdjG1rzjE6kIUq1PNmbzJ X4ABNcjF6aPC4hygaaf9ws AQV5DSmbIABdtiK8ygMnNR UpnSUaW6OqkS33ZjLqnBBl R3VwaI2wUSceWCDlbyu7Db UfKx1jeLNkaEE4PVhyJipz YWdlXHBnbmNvbnRccGduZG VjXHBsYWluXHBsYWluXGYw GMBnSvSex1EkIHCtg8ybRr Emr4zgjEj0EWexqUwgzTRw blxmMFxmczIwXHBsYWluXG CgZNAfJzFaR8RpZ2keET4m QSBpcyByZWNlaXZlZCBpbi Par0QiIYkhlfWrCCXhtKzv XVH0qNUeYSHbXQCiCEDjHT 50XHBsYWluXGYxXGZzMjBc iCzdVRdeIUk9FxwhyYVkyi xmMVxmczIwIHMgbmFtZSwg VUggbnVtYmVyICJhcHBlbm RpeFxwbGFpblxmMVxmczIw XVR0CpOkATkuWVWlgXplqH 6lGbYgWvItVPVsWD6wZXIw kpNye5SeDC0fIHMjoHjtxg 99DV3ipvLxmSujf0OyQHZz oRMuYTj7OOq4UlwkY20klG 3cnOBvM0EjKOlwRP92KPXd OCBjbSBpbiBkaWFtZXRlci wld0q8nHYpsQUrX8mdXTF9 VYsma2smbY7biDcrwAMkUD Dzg4T5xNGiYUNkVIEdPYEo PZ4dzDayZUJbYGI7NLRjLS Y6NPJaIHKohZgvWTDEuDLg JHVoAL8rgOklv0Thk3ZkZD knf0YvUMLtmjD2iUHnRFF8 wNQrdWIsSDJphbGzmYT8dA VudCBleHVkYXRlLiBUaGUg BKGqCM8wpRdbtOUrx7UysH GmnNkeu4WokRpsgpXzIZXo IHJldmVhbCBhIHBhdGVudC LgfM5ovsiniwFkK1qsXlOa ge1tYPMrffTksS03QWBoXG SzNsVegWsjF59bzPZcunyb CeMkT8HgxQVuUC6mivQeBC dlLiAgVGhlIHdhbGwgdGhp A1ncKMJvUOCrxtszrnToai 2oWVYqTF5uVfIqO38qZVIn cnVwdHVyZSBzaXRlIGlzIG vgo8WumWxvhEEmsbPfMpbh IGpeTO1hDPLlBLYby84vlR yxRH63H46uDQjyloBjCEY9 kH6zPZ1lalsgki6uAxGldk SdRS87MAJzwmAmw3HhiVsc ufGko0anG2bpcJ8ovBIgOQ Kmwm2scwAjSDX5fL7nxaqp cJgiFGFdmZQpzP6jFGOylv UoMQH2lE0gNJ0lkgewwhWq bmQgZGlzdGFsIHRpcCBhcm Dee5WesLp7cYLxJMjbLTDs LUEyLlxwYXJccGFyZFxwbG FpblxmMFxmczIwXHBsYWlu XGYxXGZzMjAgSnVsaWUgTW NZlPydndB5INEBUInjSVO9 Embedded Images (test code = 3411880897) [facility] GLUCOSE (AUTOMATED)2019-11-05 22:19:00 Test Item Value Reference Range Interpretation Comments POCT GLU (test code = 5919589725) 115 mg/dL 70-110 H Lab Interpretation (test code = Abnormal 83938-0) [facility] GLUCOSE (AUTOMATED)2019-11-05 18:23:00 Test Item Value Reference Range Interpretation Comments POCT GLU (test code = 7640069785) 197 mg/dL 70-110 H Lab Interpretation (test code = Abnormal 51879-2) [facility] GLUCOSE (AUTOMATED)2019-11-05 17:33:00 Test Item Value Reference Range Interpretation Comments POCT GLU (test code = 0678791476) 125 mg/dL 70-110 H Lab Interpretation (test code = Abnormal 18913-5) [facility] GLUCOSE (AUTOMATED)2019-11-05 13:28:00 Test Item Value Reference Range Interpretation Comments POCT GLU (test code = 5417023891) 130 mg/dL 70-110 H Lab Interpretation (test code = Abnormal 65212-7) [facility] METABOLIC PANEL (NA, K, CL, CO2, GLUCOSE, BUN, CREATININE, CA)2019-11-05 12:11:00 Test Item Value Reference Range Interpretation Comments NA (test code = 137 mmol/L 135-145 8813226343) K (test code = 3.6 mmol/L 3.5-5 5213461900) CL (test code = 100 mmol/L 98-108 2330677068) CO2 TOTAL (test code = 30 mmol/L 23-31 7921131072) AGAP (test code = 2-16 1221730455) BUN (test code = 14 mg/dL 7-23 4959374559) GLUCOSE (test code = 164 mg/dL 70-110 H 1421026577) CREATININE (test code = 0.81 mg/dL 0.6-1.25 9953769520) CALCIUM (test code = 8.6 mg/dL 8.6-10.6 6990390084) eGFR Calculation mL/min/1.73m2 (Non-) (test code = 7136433755) eGFR Calculation mL/min/1.73m2 () (test code = 0733305621) KATE (test code = KATE) Association of [...] tests). Lab Interpretation Abnormal (test code = 83869-2) [facility] WITH [id number] 11:39:00 Test Item Value Reference Range Interpretation Comments WBC (test code = See_Comment [Automated 0533-2) message] The sy stem which generated this result transmitted reference range : 4.20 - 10.70 10*3/?L. The reference range was not used to interpret this result as normal/abnormal . RBC (test code = See_Comment [Automated 535-4) message] The sy stem which generated this [...] RDW-SD (test code = 38.7 fL 38.5-51.6 30258-7) RDW-CV (test code = 13.0 % 12.1-15.4 788-0) PLT (test code = See_Comment [Automated 777-3) message] The sy stem which generated this result transmitted reference range : 150 - 328 10*3/ ?L. The reference r jevon was not used to interpret this result as normal/abnormal . MPV (test code = 11.5 fL 9.8-13 56328-2) NRBC/100 WBC (test See_Comment [Automat ed code = 3331629234) message] The system which generated this result transmitted reference range : 0.0 - 10.0 /100 WBCs. The refer ence range was not u sed to interpret th is result as normal/abnormal . NRBC x10^3 (test code <0.01 See_Comment [Auto mated = 3406308563) message] The s ystem which generated this result transmitted reference range : 10*3/?L. The reference range was not used to interpret this result as normal/abnormal . GRAN MAT (NEUT) % 83.5 % (test code = 770-8) IMM GRAN % (test code 0.30 % = 1814652871) LYMPH % (test code = 9.3 % 736-9) MONO % (test code = 5.7 % 5905-5) EOS % (test code = 1.1 % 713-8) BASO % (test code = 0.1 % 706-2) GRAN MAT x10^3(ANC) 7.74 10*3/uL 1.99-6.95 H (test code = 4529951767) IMM GRAN x10^3 (test 0.03 10*3/uL 0-0.06 code = 0834839073) LYMPH x10^3 (test code 0.86 10*3/uL 1.09-3.23 L = 731-0) MONO x10^3 (test code 0.53 10*3/uL 0.36-1.02 = 742-7) EOS x10^3 (test code = 0.10 10*3/uL 0.06-0.53 711-2) BASO x10^3 (test code <0.03 0.01-0.09 = 704-7) Lab Interpretation Abnormal (test code = 34734-6) [facility] GLUCOSE (AUTOMATED)2019-11-05 10:22:00 Test Item Value Reference Range Interpretation Comments POCT GLU (test code = 5974373184) 149 mg/dL 70-110 H Lab Interpretation (test code = Abnormal 70877-7) [facility] GLUCOSE (AUTOMATED)2019-11-05 06:15:00 Test Item Value Reference Range Interpretation Comments POCT GLU (test code = 7953261044) 204 mg/dL 70-110 H Lab Interpretation (test code = Abnormal 79695-6) [facility] GLUCOSE (AUTOMATED)2019-11-05 01:48:00 Test Item Value Reference Range Interpretation Comments POCT GLU (test code = 9820406092) 227 mg/dL 70-110 H Lab Interpretation (test code = Abnormal 22282-7) [facility] GLUCOSE (AUTOMATED)2019-11-04 22:30:00 Test Item Value Reference Range Interpretation Comments POCT GLU (test code = 0270510869) 132 mg/dL 70-110 H Lab Interpretation (test code = Abnormal 15428-7) [facility] GLUCOSE (AUTOMATED)2019-11-04 17:24:00 Test Item Value Reference Range Interpretation Comments POCT GLU (test code = 0377276363) 213 mg/dL 70-110 H Lab Interpretation (test code = Abnormal 29830-1) [facility] GLUCOSE (AUTOMATED)2019-11-04 13:31:00 Test Item Value Reference Range Interpretation Comments POCT GLU (test code = 6988416806) 203 mg/dL 70-110 H Lab Interpretation (test code = Abnormal 50154-7) [facility] GLUCOSE (AUTOMATED)2019-11-04 12:03:00 Test Item Value Reference Range Interpretation Comments POCT GLU (test code = 3540555395) 213 mg/dL 70-110 H Lab Interpretation (test code = Abnormal 55882-0) [facility] 23:50:00 Test Item [...] Indicated Lab Interpretation Abnormal (test code = 06436-6) [facility] 23:28:00 Test Item Value Reference Range Interpretation Comments POCT GLU (test code = 1123446301) 273 mg/dL 70-110 H Lab Interpretation (test code = Abnormal 92524-9) [facility] [id number] 18:01:52CT Abdomen and Pelvis with intravenous contrast. [...] Rhoades in the emergency room at 12:00. [facility] Results Inft User - 11/03/2019 12:02 [...] Dr. Rhoades in the emergency room at 12:00.[facility] 16:23:00 Test Item Value Reference Range Interpretation Comments APPEARANCE (test code = Clear Clear 6417117587) COLOR (test code = Yellow Yellow 5448453592) PH (test code = 4.8-8.0 7700544669) SP GRAVITY (test code = 1.003-1.030 5445227516) GLU U QUAL (test code = 500 mg/dL Normal A 2052495530) BLOOD (test code = Negative Negative 4389171234) KETONES (test code = Negative Negative 1241094145) PROTEIN (test code = Negative Negative 2887-8) UROBILIN (test code = Normal Normal 8767961619) BILIRUBIN (test code = Negative Negative 4187332378) NITRITE (test code = Negative Negative 3166055980) LEUK BIANCA (test code = Negative Negative 7055182930) RBC/HPF (test code = See_Comment [Autom ated message] 9946647603) The system [employer] generated this result transmit yelena reference range : 0 - 3 HPF. The refe rence range was not u sed to interpret th is result as normal/abnormal . WBC/HPF (test code = See_Comment [Autom ated message] 8334441419) The system [employer] generated this result transmit yelena reference range : 0 - 5 HPF. The refe rence range was not u sed to interpret th is result as normal/abnormal . BACTERIA (test code = Negative Negative 0005595288) MUCOUS (test code = Slight Negative LPF A 7054991580) SQ EPITH (test code = <1 HPF 9254701934) Lab Interpretation (test Abnormal code = 93238-9) [facility]. METABOLIC PANEL (28431)2019-11-03 16:04:00 Test Item Value Reference Range Interpretation Comments NA (test code = 137 mmol/L 135-145 6297674554) K (test code = 4.3 mmol/L 3.5-5 8707282004) CL (test code = 98 mmol/L 98-108 7328946059) CO2 TOTAL (test code = 28 mmol/L 23-31 2756380838) AGAP (test code = 2-16 3768185775) BUN (test code = 11 mg/dL 7-23 8203857245) GLUCOSE (test code = 356 mg/dL 70-110 H 2494334630) CREATININE (test code = 1.01 mg/dL 0.6-1.25 4039525441) TOTAL BILI (test code = 0.9 mg/dL 0.1-1.2 9412835145) CALCIUM (test code = 9.1 mg/dL 8.6-10.6 6018259984) T PROTEIN (test code = 7.5 g/dL 6.3-8.2 7328950016) ALBUMIN (test code = 4.7 g/dL 3.5-5 3984068859) ALK PHOS (test code = 73 U/L 34-122 1922477601) ALTv (test code = 38 U/L 5-50 1742-6) AST(SGOT) (test code = 25 U/L 13-40 7275777146) eGFR Calculation mL/min/1.73m2 (Non-) (test code = 2652858845) eGFR Calculation mL/min/1.73m2 () (test code = 8108647012) KATE (test code = KATE) Association of [...] tests). Lab Interpretation Abnormal (test code = 25379-0) [facility]00 Test Item Value Reference Range Interpretation Comments LIPASE (test code = 3609350483) 48 U/L 0-220 Lab Interpretation (test code = Normal 46728-4) [facility] acute hospital WITH [id number] 15:51:00 Test Item Value Reference Range Interpretation Comments WBC (test code = See_Comment H [Automated 3590-2) message] The system which generated this result [...] (test code = 37.8 fL 38.5-51.6 L 08665-0) RDW-CV (test code = 12.7 % 12.1-15.4 788-0) PLT (test code = See_Comment [Automated 777-3) message] The system which generated this result transmit yelena reference range : 150 - 328 10*3/ ?L. The reference range was not u sed to interpret th is result as normal/abnormal . MPV (test code = 10.9 fL 9.8-13 86906-9) NRBC/100 WBC (test See_Comment [Automat ed code = 0308227118) message] The system which generated this result transmit yelena reference range : 0.0 - 10.0 /100 WBCs. The reference range was not used to interpret this result as normal/abnormal . NRBC x10^3 (test code <0.01 See_Comment [Auto mated = [id number]) message] The system which generated this result transmit yelena reference range : 10*3/?L. The reference range was not used to interpret this result as normal/abnormal . GRAN MAT (NEUT) % 91.5 % (test code = 770-8) IMM GRAN % (test code 0.50 % = [id number]) LYMPH % (test code = 3.9 % 736-9) MONO % (test code = 3.8 % 5905-5) EOS % (test code = 0.1 % 713-8) BASO % (test code = 0.2 % 706-2) GRAN MAT x10^3(ANC) 12.89 10*3/uL 1.99-6.95 H (test code = [id number]) IMM GRAN x10^3 (test 0.07 10*3/uL 0-0.06 H code = [id number]) LYMPH x10^3 (test code 0.55 10*3/uL 1.09-3.23 L = 731-0) MONO x10^3 (test code 0.54 10*3/uL 0.36-1.02 = 742-7) EOS x10^3 (test code = <0.03 0.06-0.53 L 711-2) BASO x10^3 (test code 0.03 10*3/uL 0.01-0.09 = 704-7) Lab Interpretation Abnormal (test code = 16485-2) [facility]"
[2021-08-11 21:57] LABS: Absolute Lymphocytes (CBC) 1.7 K/uL (0.7-4.9); Basophils % 0.7 % (0-1.3); Hematocrit 54.9 % (39.6-49.0); Lymphocytes % 18.3 % (15.3-44.8); MPV 9.5 fL (7.6-11.3); RBC Red Blood Cell Count 6.73 M/uL (4.33-5.43)
[2021-08-11 22:05] LABS: Protime INR 0.96
[2021-08-11 22:14] LABS: ALT/SGPT 42 U/L (12-78); AST/SGOT 14 U/L (15-37); Albumin 3.8 g/dL (3.4-5.0); Alkaline Phosphatase 72 U/L (45-117); BUN Blood Urea Nitrogen 12 mg/dL (7-18); Bicarbonate 28 mmol/L (21-32); Bilirubin Direct 0.1 mg/dL (0-0.2); Bilirubin Total 0.4 mg/dL (0.2-1.0); Glucose Level 291 mg/dL (74-106); Magnesium 2.1 mg/dL (1.8-2.4); NT PRO-BNP 10 pg/mL (<125); Potassium 3.8 mmol/L (3.5-5.1); Protein, Total 7.8 g/dL (6.4-8.2); Sodium Level 138 mmol/L (136-145); Troponin (Emerg Dept Use Only) < 0.02 ng/mL (0.0-0.045)
[2021-08-11] MEDS ORDERED: DIPHENHYDRAMINE 50 MG/ML VIAL ONE (22:20)
[2021-08-11] MEDS ORDERED: METOCLOPRAMIDE 10 MG/2mL INJ ONE (22:20)
[2021-08-11] MEDS ORDERED: NA CHLORIDE 0.9% 1,000 ML ONE (22:20)
--- NOTE | 2021-08-11 22:22 | RAD REPORT ---
EXAM DESCRIPTION: RAD - Chest Single View - 08/11/2021 10:05 pm CLINICAL HISTORY: CHEST PAIN COMPARISON: Chest Single View dated 02/18/2021; Chest Single View dated 01/29/2021; Chest Single View d ated 08/30/2018; Chest Pa And Lat (2 Views) dated 08/05/2018 FINDINGS: Lines: None. Lungs: No evidence of edema or pneumonia. Pleural: No significant pleural effusions or pneumothorax. Cardiac: The heart size is within normal limits. Bones: No acute fractures. Other: IMPRESSION: No acute cardiopulmonary disease.
[2021-08-12 00:55] LABS: Urine Blood Negative (Negative); Urine Glucose 3+ (Negative); Urine Protein Negative (Negative); Urine Specific Gravity 1.025 (1.005-1.030); Urine pH 5.5 (5.0-7.0)
[2021-08-12] MEDS ORDERED: HYDROMORPHONE HCL 1 MG/ML INJ ONE (01:08)
[2021-08-12 01:34] LABS: Barbiturates POSITIVE (NEGATIVE); Benzodiazepines NEGATIVE (NEGATIVE); Cocaine NEGATIVE (NEGATIVE); METHAMPHETAM NEGATIVE (NEGATIVE); Methadone NEGATIVE (NEGATIVE); Opiates NEGATIVE (NEGATIVE); Phencyclidine NEGATIVE (NEGATIVE); THC Cannibis NEGATIVE (NEGATIVE)
--- NOTE | 2021-08-12 02:20 | ER ---
Nurse's Notes [facility] Name: Chente Minaya Age: 51 yrs Sex: Male : 1970 Arrival Date: 08/11/2021 Time: 20:50 Bed 6 Private MD: Diagnosis: Headache;Chest pain, unspecified Presentation: 08/11 21:01 Chief complaint: Patient states: Migraine x 2-3 days and Chest pain that began at 1200 ss today. Coronavirus screen: Client denies travel out of the [place] in the last 14 days. Ebola Screen: Patient denies exposure to infectious person. Patient denies travel to an Ebola-affected area in the 21 days before illness onset. Initial Sepsis Screen: Does the patient meet any 2 criteria? No. Patient's initial sepsis screen is negative. Does the patient have a suspected source of infection? No. Patient's initial sepsis screen is negative. Risk Assessment: Do you want to hurt yourself or someone else? Patient reports no desire to harm self or others. Onset of symptoms was August 08, 2021. 21:01 Method Of Arrival: Ambulatory ss 21:01 Acuity: GILDARDO 3 ss Historical: - Allergies: 21:03 Bactrim; ss 21:03 mushroom; ss 21:03 PENICILLINS; ss 21:03 Sulfa (Sulfonamide Antibiotics); ss 21:03 surgical steel; ss 21:03 tramadol; ss 21:03 Tylenol-Codeine #3; ss 21:03 Tylenol-Codeine #4; ss - Home Meds: 21:03 Testosterpme injection Weekly [Active]; propranolol 40 mg Oral tab 1 tab 2 times per ss day [Active]; Esgic Oral [Active]; ondansetron HCl 4 mg Oral tab [Active]; losartan 50 mg oral tab 1 tab once daily [Active]; anastrozole oral [Active]; levemir [Active]; - PMHx: 21:03 GERD; food bolus; Diabetes - NIDDM; Depression; hiatal hernia; Migraines; neuropathy; ss - PSHx: 21:03 multiple upper GI procedures; Appendectomy; ss - Immunization history:: Client reports having NOT received the Covid vaccine. - Social history:: Smoking status: Patient denies any tobacco usage or history of. Screenin:40 Abuse screen: Denies threats or abuse. Nutritional screening: No deficits noted. bb Tuberculosis screening: No symptoms or risk factors identified. Fall Risk None identified. Assessment: 21:40 General: Appears in no apparent distress. Behavior is calm, cooperative. Pain: bb Complains of pain in chest and head Pain radiates to left arm Pain currently is 7 out of 10 on a pain scale. Pain began 2 days ago. Neuro: Level of Consciousness is awake, alert, obeys commands, Oriented to person, place, time, situation. Cardiovascular: Heart tones S1 S2 present Capillary refill < 3 seconds Patient's skin is warm and dry. Pulses are all present. Edema is absent. Rhythm is sinus rhythm. Respiratory: Airway is patent Respiratory effort is even, unlabored, Respiratory pattern is regular, Breath sounds are clear bilaterally. GI: No signs and/or symptoms were reported involving the gastrointestinal system. Derm: Skin is pink, warm \T\ dry. Musculoskeletal: Circulation, motion, and sensation intact. 22:30 Reassessment: Patient is alert, oriented x 3, equal unlabored respirations, skin bb warm/dry/pink. pt asking what pain medication he is receiving instructed on medications being given pt states other ED provider also gives him toradol and if it doesn't work he gives him morphine or dilaudid. Dr Saleem notified. 08/12 00:15 Reassessment: Patient reports not relief with medication administered; Headache and lp1 nausea continued. Neuro: Level of Consciousness is awake, alert, obeys commands, Oriented to person, place, time, situation, Reports headache in left in entire. Cardiovascular: Patient's skin is warm and dry. Respiratory: Respiratory effort is even, unlabored. GI: Reports nausea. Derm: Skin is pink, warm \T\ dry. Musculoskeletal: No deficits noted. 01:15 Reassessment: Patient is alert, oriented x 3, equal unlabored respirations, skin bb warm/dry/pink. pt medicated for pain see NOV. 01:47 Reassessment: Reports headache improved, nausea has resolved, appears to be resting lp1 comfortably Patient states feeling better. Patient states symptoms have improved. 03:16 Reassessment: Patient is alert, oriented x 3, equal unlabored respirations, skin bb warm/dry/pink. pt verbalized understanding of and agrees to plan of care discharge instructions given pt ambulated with steady gait to exit. Vital Signs: 08/11 21:01 BP 143 / 91; Pulse 101; Resp 16; Temp 98.3(TE); Pulse Ox 99% on R/A; Weight 136.08 kg; Height 6 ft. 2 in. (187.96 cm); Pain 7/10; 21:51 BP 121 / 80; Pulse 91; Resp 16 S; Pulse Ox 96% on R/A; Pain 7/10; bb 22:32 BP 140 / 80; Pulse 83; Resp 16 S; Pulse Ox 98% on R/A; bb 08/12 00:29 BP 119 / 85; Pulse 93; Resp 14; Pulse Ox 94% on R/A; Pain 8/10; lp1 01:15 BP 127 / 85; Pulse 91; Resp 20 S; Pulse Ox 92% on R/A; Pain 9/10; bb 01:38 Pain 4/10; lp1 01:47 BP 114 / 83; Pulse 82; Resp 12; Pulse Ox 93% on R/A; Pain 4/10; lp1 02:52 BP 121 / 69; Pulse 76; Resp 14; Pulse Ox 95% on R/A; ds4 08/11 21:01 Body Mass Index 38.52 (136.08 kg, 187.96 cm) ED Course: 08/11 20:50 Patient arrived in ED. ja2 21:02 Triage completed. 21:03 Arm band placed on left wrist. 21:29 Romeo Saleem MD is Attending Physician. [facility] 21:40 Patient has correct armband on for positive identification. Placed in gown. Bed in low bb position. Call light in reach. Side rails up X 1. community engagement specialist on. Pulse ox on. NIBP on. Warm blanket given. 21:45 Initial lab(s) drawn, by me, sent to lab. EKG done, by ED staff, reviewed by Romeo Saleem MD. Inserted saline lock: 18 gauge in left antecubital area, using aseptic technique. Blood collected. Patient maintains SpO2 saturation greater than 95% on room air. 21:48 Roya Jaime, CORA is Primary Nurse. bb 22:05 XRAY Chest (1 view) In Process Unspecified. EDMS 08/12 01:39 Repeat lab(s) drawn. by me, sent to lab. lp1 02:19 Myles Hemphill MD is Referral Physician. 7 02:19 Travis Figueroa MD is Referral Physician. [facility] 03:18 No provider procedures requiring assistance completed. IV discontinued, intact, bb bleeding controlled, No redness/swelling at site. Pressure dressing applied. Administered Medications: 08/11 22:32 Drug: NS 0.9% 1000 ml Route: IV; Rate: 1000 ml; Site: left antecubital; 08/12 00:31 Follow up: IV Status: Completed infusion; IV Intake: 1000ml 1 08/11 22:32 Drug: Benadryl (diphenhydrAMINE) 50 mg Route: IVP; Site: left antecubital; 08/12 00:31 Follow up: Response: No adverse reaction; No change in condition 1 08/11 22:32 Drug: Reglan (metoCLOPramide) 10 mg Route: IVP; Site: left antecubital; 08/12 00:31 Follow up: Response: No change in condition [facility] 01:14 Drug: Dilaudid (HYDROmorphone) 1 mg {Note: RASS 0.} Route: IVP; Site: left antecubital; 01:38 Follow up: Pain 4/10 Adult; Response: Pain is decreased [facility] Intake: 00:31 IV: 1000ml; Total: 1000ml. [facility] Outcome: 02:19 Discharge ordered by . [facility] 03:18 Discharged to home ambulatory. 03:18 Condition: stable 03:18 Discharge instructions given to patient, Instructed on discharge instructions, follow up and referral plans. Demonstrated understanding of instructions, follow-up care. 03:18 Patient left the ED. bb Signatures: Dispatcher [employer] EDMS Roya Jaime RN RN bb Brenna Saunders RN RN Sara Prabhakar RN RN 1 Heraclio Clark4 Romeo Saleem MD MD [facility] Karen Jones
--- NOTE | 2021-08-12 02:20 | EDPHYS ---
Physician Documentation [facility] Name: Chente Minaya Age: 51 yrs Sex: Male : 1970 Arrival Date: 08/11/2021 Time: 20:50 Bed 6 Private MD: ED Physician Romeo Saleem HPI: 08/11 22:15 This 51 yrs old Male presents to ER via Ambulatory with complaints of Chest Pain, mh7 Headache. 22:15 The patient or guardian reports chest pain that is located primarily in the anterior mh7 chest wall, left. Onset: today, at 12:00. The pain radiates to the left arm. Associated signs and symptoms: Pertinent positives: headache, nausea, Pertinent negatives: abdominal pain, cough, diaphoresis, dizziness, lower extremity pain, lower extremity swelling, lightheadedness, near syncope, palpitations, recent travel, shortness of breath, syncope, vomiting. The chest pain is described as a pressure. Duration: The patient or guardian reports multiple episodes, that are intermittent, that wax and wane, with no pattern. Modifying factors: The symptoms are alleviated by nothing. the symptoms are aggravated by nothing. Severity of pain: At its worst the pain was moderate today, in the emergency department the pain is unchanged. Patient states that he has had flare up of his migraines for 2 to 3 days. He states that he has had light sensitivity and nausea with the headaches. He states today around noon he started having left-sided chest pain with some radiation to the left arm. He denies any fever, neck pain, cough, abdominal pain, shortness of breath, vomiting, dizziness, numbness/tingling, or weakness.. Historical: - Allergies: 21:03 Bactrim; ss 21:03 mushroom; ss 21:03 PENICILLINS; ss 21:03 Sulfa (Sulfonamide Antibiotics); ss 21:03 surgical steel; ss 21:03 tramadol; ss 21:03 Tylenol-Codeine #3; ss 21:03 Tylenol-Codeine #4; ss - Home Meds: 21:03 Testosterpme injection Weekly [Active]; propranolol 40 mg Oral tab 1 tab 2 times per ss day [Active]; Esgic Oral [Active]; ondansetron HCl 4 mg Oral tab [Active]; losartan 50 mg oral tab 1 tab once daily [Active]; anastrozole oral [Active]; levemir [Active]; - PMHx: 21:03 GERD; food bolus; Diabetes - NIDDM; Depression; hiatal hernia; Migraines; neuropathy; ss - PSHx: 21:03 multiple upper GI procedures; Appendectomy; ss - Immunization history:: Client reports having NOT received the Covid vaccine. - Social history:: Smoking status: Patient denies any tobacco usage or history of. ROS: 22:15 Constitutional: Negative for fever, chills, and weight loss, Eyes: Negative for injury, mh7 pain, redness, and discharge, ENT: Negative for injury, pain, and discharge, Neck: Negative for injury, pain, and swelling, Respiratory: Negative for shortness of breath, cough, wheezing, and pleuritic chest pain, Back: Negative for injury and pain, : Negative for injury, bleeding, discharge, and swelling, MS/Extremity: Negative for injury and deformity, Skin: Negative for injury, rash, and discoloration, Psych: Negative for depression, anxiety, suicide ideation, homicidal ideation, and hallucinations, Allergy/Immunology: Negative for hives, rash, and allergies, Endocrine: Negative for neck swelling, polydipsia, polyuria, polyphagia, and marked weight changes, Hematologic/Lymphatic: Negative for swollen nodes, abnormal bleeding, and unusual bruising. Exam: 22:15 Constitutional: This is a well developed, well nourished patient who is awake, alert, mh7 and in no acute distress. Head/Face: Normocephalic, atraumatic. Eyes: Pupils equal round and reactive to light, extra-ocular motions intact. Lids and lashes normal. Conjunctiva and sclera are non-icteric and not injected. Cornea within normal limits. Periorbital areas with no swelling, redness, or edema. ENT: Nares patent. No nasal discharge, no septal abnormalities noted. Tympanic membranes are normal and external auditory canals are clear. Oropharynx with no redness, swelling, or masses, exudates, or evidence of obstruction, uvula midline. Mucous membranes moist. Neck: Trachea midline, no thyromegaly or masses palpated, and no cervical lymphadenopathy. Supple, full range of motion without nuchal rigidity, or vertebral point tenderness. No Meningismus. Chest/axilla: Normal chest wall appearance and motion. Nontender with no deformity. No lesions are appreciated. Cardiovascular: Regular rate and rhythm with a normal S1 and S2. No gallops, murmurs, or rubs. Normal PMI, no JVD. No pulse deficits. Respiratory: Lungs have equal breath sounds bilaterally, clear to auscultation and percussion. No rales, rhonchi or wheezes noted. No increased work of breathing, no retractions or nasal flaring. Abdomen/GI: Soft, non-tender, with normal bowel sounds. No distension or tympany. No guarding or rebound. No evidence of tenderness throughout. Back: No spinal tenderness. No costovertebral tenderness. Full range of motion. Skin: Warm, dry with normal turgor. Normal color with no rashes, no lesions, and no evidence of cellulitis. MS/ Extremity: Pulses equal, no cyanosis. Neurovascular intact. Full, normal range of motion. Neuro: Awake and alert, GCS 15, oriented to person, place, time, and situation. Cranial nerves II-XII grossly intact. Motor strength 5/5 in all extremities. Sensory grossly intact. Cerebellar exam normal. Normal gait. Psych: Awake, alert, with orientation to person, place and time. Behavior, mood, and affect are within normal limits. Vital Signs: 21:01 BP 143 / 91; Pulse 101; Resp 16; Temp 98.3(TE); Pulse Ox 99% on R/A; Weight 136.08 kg; ss Height 6 ft. 2 in. (187.96 cm); Pain 7/10; 21:51 BP 121 / 80; Pulse 91; Resp 16 S; Pulse Ox 96% on R/A; Pain 7/10; bb 22:32 BP 140 / 80; Pulse 83; Resp 16 S; Pulse Ox 98% on R/A; bb 08/12 00:29 BP 119 / 85; Pulse 93; Resp 14; Pulse Ox 94% on R/A; Pain 8/10; lp1 01:15 BP 127 / 85; Pulse 91; Resp 20 S; Pulse Ox 92% on R/A; Pain 9/10; bb 01:38 Pain 4/10; lp1 01:47 BP 114 / 83; Pulse 82; Resp 12; Pulse Ox 93% on R/A; Pain 4/10; lp1 02:52 BP 121 / 69; Pulse 76; Resp 14; Pulse Ox 95% on R/A; ds4 08/11 21:01 Body Mass Index 38.52 (136.08 kg, 187.96 cm) ss MDM: 02:17 Differential diagnosis: acute myocardial infarction, acute pericarditis, anxiety, mh7 coronary artery disease chest wall pain, congestive heart failure costochondritis, esophagitis, gastritis, gastroesophageal reflux disease (GERD), pericarditis, pleurisy, pneumonia, pneumothorax. HEART Score: History: Slightly Suspicious (0), ECG: Normal (0), Age: > 45 and < 65 years (1), Risk Factors: 1 or 2 risk factors (1), [DM] Troponin: < or = 1 x Normal Limit (0), Total Score = 2. Data reviewed: vital signs, nurses notes, old medical records, lab test result(s), cardiac enzymes, CBC, urinalysis, urine drug screen, EKG, radiologic studies, plain films. Data interpreted: Pulse oximetry: on room air is 96 %. Interpretation: normal. Counseling: I had a detailed discussion with the patient and/or guardian regarding: the historical points, exam findings, and any diagnostic results supporting the discharge/admit diagnosis, lab results, radiology results, the need for outpatient follow up, to return to the emergency department if symptoms worsen or persist or if there are any questions or concerns that arise at home. Refusal of service: The patient/guardian displays adequate decision making capability and despite a detailed discussion of alternatives, benefits, risks, and consequences refuses: Admission to the hospital for further work-up and treatment. 02:19 Patient medically screened. [facility] 08/11 21:43 Order name: Basic Metabolic Panel; Complete Time: 22: [facility] 08/11 21:43 Order name: CBC with Diff; Complete Time: 22:13 [facility] 08/11 21:43 Order name: LFT's; Complete Time: 22: [facility] 08/11 21:43 Order name: Magnesium; Complete Time: 22: [facility] 08/11 21:43 Order name: NT PRO-BNP; Complete Time: 22:26 [facility] 08/11 21:43 Order name: PT-INR; Complete Time: 22:13 [facility] 08/11 21:43 Order name: Troponin (emerg Dept Use Only); Complete Time: 22:26 [facility] 08/11 21:43 Order name: XRAY Chest (1 view); Complete Time: 22:26 [facility] 08/11 21:43 Order name: UDS; Complete Time: 01:43 [facility] 08/12 00:43 Order name: Troponin (emerg Dept Use Only); Complete Time: 02:06 [facility] 08/12 00:54 Order name: Urine Dipstick-Ancillary; Complete Time: 01:22 [facility] 08/11 21:43 Order name: EKG; Complete Time: 21:44 [facility] 08/11 21:43 Order name: Cardiac monitoring; Complete Time: 21:51 [facility] 08/11 21:43 Order name: EKG - Nurse/Tech; Complete Time: 21:46 [facility] 08/11 21:43 Order name: IV Saline Lock; Complete Time: 21:51 [facility] 08/11 21:43 Order name: Labs collected and sent; Complete Time: 21:51 [facility] 08/11 21:43 Order name: O2 Per Protocol; Complete Time: 21:46 [facility] 08/11 21:43 Order name: O2 Sat Monitoring; Complete Time: 21:46 [facility] 08/11 21:43 Order name: Urine Dipstick-Ancillary (obtain specimen); Complete Time: 01:39 [facility] Administered Medications: 08/11 22:32 Drug: NS 0.9% 1000 ml Route: IV; Rate: 1000 ml; Site: left antecubital; 08/12 00:31 Follow up: IV Status: Completed infusion; IV Intake: 1000ml 1 08/11 22:32 Drug: Benadryl (diphenhydrAMINE) 50 mg Route: IVP; Site: left antecubital; 08/12 00:31 Follow up: Response: No adverse reaction; No change in condition 1 08/11 22:32 Drug: Reglan (metoCLOPramide) 10 mg Route: IVP; Site: left antecubital; 08/12 00:31 Follow up: Response: No change in condition 1 01:14 Drug: Dilaudid (HYDROmorphone) 1 mg {Note: RASS 0.} Route: IVP; Site: left antecubital; 01:38 Follow up: Pain 4/10 Adult; Response: Pain is decreased [facility] Disposition Summary: 08/12/21 02:19 Discharge Ordered Location: Home [facility] Problem: an acute exacerbation [facility] Symptoms: have improved [facility] Condition: Stable [facility] Diagnosis - Headache 7 - Chest pain, unspecified 7 Followup: [facility] - With: Private Physician - When: 1 - 2 days - Reason: Worsening of condition, Recheck today's complaints, Continuance of care, Re-evaluation by your physician Followup: 7 - With: Myles Hemphill MD - When: 1 - 2 days - Reason: Worsening of condition, Recheck today's complaints Followup: 7 - With: Travis Figueroa MD - When: 1 - 2 days - Reason: Worsening of condition, Recheck today's complaints Discharge Instructions: - Discharge Summary Sheet [facility] - Nonspecific Chest Pain, Adult, [id number] [facility] - Migraine Headache, Ulmt-or-Btpt [facility] Forms: - Medication Reconciliation Form [facility] - Thank You Letter [facility] - Antibiotic Education [facility] - Prescription Opioid Use [facility] Signatures: Dispatcher [employer] Roya Scherer RN RN bb Smirch, Shelby, RN RN ss Holmes, Maurice, MD MD [facility] Sara Prabhakar RN lp1
[2021-08-12 03:36] VITALS: TEMP 98.3
[2021-08-12 03:58] VITALS: BP 121/69; O2SAT 95
== END 2021-08-12 03:18 | disposition home or self-care (01) ==
LOC: ER 20:47
DX: R07.9 Chest pain, unspecified (principal); R50.9 Fever, unspecified; Z88.0 Allergy status to penicillin; Z88.1 Allergy status to other antibiotic agents; Z88.2 Allergy status to sulfonamides; Z88.6 Allergy status to analgesic agent; Z91.018 Allergy to other foods
CPT/HCPCS: 96361; 93005; 85025; 80048; 36415; 83735; 85610; 80076; 81003; 84484 ×2; 83880; 80307; 71045; 96375; 96374; 99285; J2765; J1200; J1170; J7030

== ENCOUNTER 2021-10-04 10:35 | Emergency (ER) | payer OTHER ==
--- OUTSIDE RECORDS SUMMARY | 2021-10-04 10:40 | XMS REPORT | Continuity of Care Document ---
:1970 Author Organization [facility] t Address [address] [place] [address] Care Team Providers Name Role Phone PCP, DOES NOT HAVE A Primary Care Physician Unavailable ANENE Attending Clinician Unavailable Luz Maria Bernal MD Attending Clinician LUZ MARIA BERNAL Attending Clinician Unavailable LUZ MARIA BERNAL Attending Clinician Unavailable Cassy Ashby Attending Clinician CASSY APPLE Attending Clinician Unavailable Doctor Unassigned, Name Attending Clinician Unavailable Porfirio Adamson Attending Clinician Fidencio Attending Clinician Jf ECHEVERRIA Attending Clinician Pavithra ECHEVERRIA Attending Clinician PAVITHRA Attending Clinician Unavailable Pavithra ECHEVERRIA Admitting Clinician PAVITHRA Admitting Clinician Unavailable Problems Condition Condition Condition Status Onset Resolution Last Treating Co mments Source Name Details Category Date Date Treatment Clinician Date Abdominal Abdominal Disease Active 2020-0 Uni vers pain pain 2-20 ity of 00:00: [address] Branch Obesity Obesity Disease Active 2020-0 Univers (BMI (BMI 2-19 ity of 30-39.9) 30-39.9) 00:00: [address] Acute Acute Disease Active 2020-0 Univers postoperat postoperat 2-19 it y of momo momo 00:00: [place] abdominal abdominal 00 Medi kyrie pain pain [...] Quantity Comments Source Exposure to Not sure [facility] SARS-CoV-2 [place] [facility] (event) Branch Sex Assigned At [facility] [place] [facility] Tobacco use and 2020-04-24 2020-04-24 Never used Universit y of exposure 00:00:00 00:00:00 [facility] Branch Alcohol intake 2020-04-24 2020-04-24 Current drinker Unive rsity of 00:00:00 00:00:00 of alcohol [place] [facility] (finding) Branch History SDOH 2019-11-03 2019-11-03 5 University o f Financial 00:00:00 00:00:00 [facility] Branch Smoking Status Start Date Stop Date Source Former smoker 2020-04-24 00:00:00 2020-04-24 00:00:00 [facility] Medications Ordered Filled Start Stop Current Ordering Indication Dosage Frequency Signature Comments Components Source Medication Medication Date Date Medication? Clinician (SIG) Name Name divalproex 2020-0 Yes [id number] 250mg Take 1 Univers ER 250 mg 8-10 tablet by ity o f 24 hr 00:00: mouth 2 [place] tablet 00 (two) Medical times [place] daily. divalproex 2020-0 Yes [id number] 250mg Take 1 Univers ER 250 mg 8-10 tablet by ity o f 24 hr 00:00: mouth 2 [place] tablet 00 (two) Medical times [place] daily. water for 2020-0 Yes PRN, Univers irrigation 24 Starting ity o f irrigation 03:19: Angelina [place] solution 04/06/20 at Medic al 2218, [place] Until Discontinu ed, Routine, Intra-op simethicone 2019-0 Yes PRN, Univer s (GAS RELIEF 04-07 Starting ity of (SIMETHICON 03:19: Angelina [place] E)) 40 00 04/06/20 at Medical mg/0.6 mL 2218, [place] drops Until Discontinu ed, Routine, Intra-op glucagon 2019-0 2020- No 1mg 1 mg, Univers (GLUCAGEN 04-07-24 [...] ical tablet 1 02/19/20 at Branch tablet 2015, MANDEEP NaCl 0.9% 2020-0 2020- No 1000mL at 999 Uni vers (NS) bolus 02-18 06-06 mL/hr, ity of infusion 23:00: 23:28 1,000 mL, Danie as 1,000 mL 00 :00 IV Medical Infusion, [place] ONCE, 1 dose, 02/19/20 at 1800, STAT morpHINE 2020-0 2020- No 4mg 4 mg, Slow Un grabiel injection 4 02-18 IV Push, ity of mg 23:00: 22:01 ONCE, 1 [place] 00 :00 dose, Sat Medical 02/19/20 at Branch 1800, STAT insulin 2019-0 2020- No 10U 10 Units, Univ ers regular 02-18 Subcutaneo ity o f human 22:45: 21:54 us, ONCE, [place] (HUMULIN R) 00 :00 1 dose, Medic al injection 02/19/20 Bran ch 10 Units at 1745, STAT NaCl 0.9% 2020- No 1000mL at 999 Uni vers (NS) bolus 02-18 mL/hr, ity of infusion 21:45: 23:27 1,000 mL, Danie as 1,000 mL 00 :00 IV Medical Infusion, [place] ONCE, 1 dose, 02/19/20 at 1645, STAT ondansetron 2019-0 2020- No 4mg 4 mg, Slow Univers (ZOFRAN 02-18 IV Push, ity of (PF)) 21:45: 20:51 ONCE, 1 [place] injection 4 00 :00 dose, Sat Med ical mg 02/19/20 at Branch 1645, MANDEEP FENTanyl PF 2019- 2020- No 25ug 25 mcg, Un grabiel (SUBLIMAZE 02-18 Slow IV ity o f (PF)) 21:45: 20:50 Push, [place] injection 00 :00 ONCE, 1 Medical 25 mcg dose, Sat Branch 02/19/20 at 1645, STAT clindamycin 2019-0 2020- No 900mg 900 mg, IV Univers in 5 % 02-18 Piggyback, ity of dextrose 21:45: 21:21 ONCE, 1 [place] (CLEOCIN) 00 :00 dose, Sat Medic al 900 mg/50 02/19/20 at Branc h mL IV 1645, 50 piggyback mL
Reas RTU 900 mg on for Anti-Infec tive: Documented Infection< br>Documen yelena Infection Site: Skin / Soft Tissue
Duration of Therapy: Other (see Comments)< br>Restric yelena use approved by: ADC PROVIDER acetaminoph 2020- No 1000mg 1,000 mg, Univers en 02-18 06-06 Oral, ity of (TYLENOL) 21:30: 20:30 ONCE, 1 [place] tablet [place] :[place] dose, Sat Medical 1,000 mg 02/19/20 at Branch 1630, MANDEEP traMADol 50 2019-0 Yes [id number] 50mg Take 1 Univers mg tablet 6-06 tablet by ity o f 00:00: mouth [place] 00 every 6 Medical (six) Branch hours as needed for Pain (scale 4-6). traMADol 50 2019-0 Yes [id number] 50mg Take 1 Univers mg tablet 6-06 tablet by ity o f 00:00: mouth [place] 00 every 6 Medical (six) Branch hours as needed for Pain (scale 4-6). traMADol 50 2019-0 Yes [id number] 50mg Take 1 Univers mg tablet 6-06 tablet by ity o f 00:00: mouth [place] 00 every 6 Medical (six) Branch hours as needed for Pain (scale 4-6). traMADol 50 2019-0 Yes [id number] 50mg Take 1 Univers mg tablet 6-06 tablet by ity o f 00:00: mouth [place] 00 every 6 Medical (six) Branch hours as needed for Pain (scale 4-6). traMADol 50 2019-0 Yes [id number] 50mg Take 1 Univers mg tablet 6-06 tablet by ity o f 00:00: mouth [place] 00 every 6 Medical (six) Branch hours as needed for Pain (scale 4-6). traMADol 50 2019-0 Yes [id number] 50mg Take 1 Univers mg tablet 6-06 tablet by ity o f 00:00: mouth [place] 00 every 6 Medical (six) Branch hours as needed for Pain (scale 4-6). clindamycin 2019-0 2020- No [id number] 450mg Take 3 Univers 150 mg 02-18 06-17 capsules ity of capsule 00:00: 04:59 by mouth 3 Danie as 00 :00 (three) Medical times Branch daily for 10 days. glipiZIDE 2019-0 Yes [id number] 10mg Take 1 Un grabiel 10 mg 2-22 tablet by ity of tablet 00:00: mouth 2 [place] 00 (two) Medical times Branch daily before breakfast and dinner. HYDROcodone 2020-0 Yes [id number] 1{tbl} Take 1 Univers -acetaminop 2-22 tablet by ity of hen 5-325 00:00: mouth [place] mg tablet 00 every 6 Medical (six) Branch hours as needed for Pain (scale 7-10). glipiZIDE 2020-0 Yes [id number] 10mg Take 1 Un grabiel 10 mg 2-22 tablet by ity of tablet 00:00: mouth 2 [place] 00 (two) Medical times Branch daily before breakfast and dinner. HYDROcodone 2020-0 Yes [id number] 1{tbl} Take 1 Univers -acetaminop 2-22 tablet by ity of hen 5-325 00:00: mouth [place] mg tablet 00 every 6 Medical (six) Branch hours as needed for Pain (scale 7-10). glipiZIDE 2020-0 Yes [id number] 10mg Take 1 Un grabiel 10 mg 2-22 tablet by ity of tablet 00:00: mouth 2 [place] 00 (two) Medical times Branch daily before breakfast and dinner. HYDROcodone 2020-0 Yes [id number] 1{tbl} Take 1 Univers -acetaminop 2-22 tablet by ity of hen 5-325 00:00: mouth [place] mg tablet 00 every 6 Medical (six) Branch hours as needed for Pain (scale 7-10). glipiZIDE 2020-0 Yes [id number] 10mg Take 1 Un grabiel 10 mg 2-22 tablet by ity of tablet 00:00: mouth 2 [place] 00 (two) Medical times Branch daily before breakfast and dinner. HYDROcodone 2020-0 Yes [id number] 1{tbl} Take 1 Univers -acetaminop 2-22 tablet by ity of hen 5-325 00:00: mouth [place] mg tablet 00 every 6 Medical (six) Branch hours as needed for Pain (scale 7-10). glipiZIDE 2020-0 Yes [id number] 10mg Take 1 Un grabiel 10 mg 2-22 tablet by ity of tablet 00:00: mouth 2 [place] 00 (two) Medical times Branch daily before breakfast and dinner. HYDROcodone 2020-0 Yes [id number] 1{tbl} Take 1 Univers -acetaminop 2-22 tablet by ity of hen 5-325 00:00: mouth [place] mg tablet 00 every 6 Medical (six) Branch hours as needed for Pain (scale 7-10). glipiZIDE 2020-0 Yes [id number] 10mg Take 1 Un grabiel 10 mg 2-22 tablet by ity of tablet 00:00: mouth 2 [place] 00 (two) Medical times Branch daily before breakfast and dinner. HYDROcodone 2020-0 Yes [id number] 1{tbl} Take 1 Univers -acetaminop 2-22 tablet by ity of hen 5-325 00:00: mouth [place] mg tablet 00 every 6 Medical (six) Branch hours as needed for Pain (scale 7-10). glipiZIDE 2020-0 Yes [id number] 10mg Take 1 Un grabiel 10 mg 2-22 tablet by ity of tablet 00:00: mouth 2 [place] 00 (two) Medical times Branch daily before breakfast and dinner. HYDROcodone 2020-0 Yes [id number] 1{tbl} Take 1 Univers -acetaminop 2-22 tablet by ity of hen 5-325 00:00: mouth [place] mg tablet 00 every 6 Medical (six) Branch hours as needed for Pain (scale 7-10). glipiZIDE 2020-0 Yes [id number] 10mg Take 1 Un grabiel 10 mg 2-22 tablet by ity of tablet 00:00: mouth 2 [place] 00 (two) Medical times Branch daily before breakfast and dinner. HYDROcodone 2020-0 Yes [id number] 1{tbl} Take 1 Univers -acetaminop 2-22 tablet by ity of hen 5-325 00:00: mouth [place] mg tablet 00 every 6 Medical (six) Branch hours as needed for Pain (scale 7-10). glipiZIDE 2020-0 Yes [id number] 10mg Take 1 Un grabiel 10 mg 2-22 tablet by ity of tablet 00:00: mouth 2 [place] 00 (two) Medical times Branch daily before breakfast and dinner. HYDROcodone 2020-0 Yes [id number] 1{tbl} Take 1 Univers -acetaminop 2-22 tablet by ity of hen 5-325 00:00: mouth [place] mg tablet 00 every 6 Medical (six) Branch hours as needed for Pain (scale 7-10). ciprofloxac 2020-0 2020- No [id number] 500mg Take 1 Univers in HCl 500 2-22 11-13 tablet by ity of mg tablet 00:00: 05:59 mouth [place] 00 :00 every 12 Medical (twelve) Branch hours for 7 days. metroNIDAZO 2019- No [id number] 500mg Take 1 Univers LE 500 mg 11-06 tablet by ity of tablet 00:00: 05:59 mouth 2 [place] 00 :00 (two) Medical times Branch daily for 7 days. HYDROmorpho Yes 1mg 1 mg, Slow Univers ne 11-05 IV Push, ity of (DILAUDID) 15:33: Q6HPRN, [place] injection 1 28 Starting Medi kyrie mg Fri Branch 11/05/19 at 0933, Until Discontinu ed, Routine, Pain (scale 7-10)
U se approved by (Faculty): ADC PROVIDER HYDROmorphO 2019- No 1mg 1 mg, Slow Univers ne 11-04 IV Push, ity of (DILAUDID) 17:03: 15:33 Q3HPRN, Danie as injection 1 17 :39 Starting Medi kyrie mg Angelina Branch 11/04/19 at 1103, Until 11/05/19 at 0933, MANDEEP, Pain (scale 7-10)
U se approved by (Faculty): ADC PROVIDER sennosides Yes 8.6mg 8.6 mg, Uni vers (SENOKOT) -20 Oral, ity of tablet 8.6 15:00: DAILY, [...] Angelina 11/04/19 at 0100, Last dose on Angelina 11/04/19 at 1300, MANDEEP
Re ason for Anti-Infec tive: Documented Infection& lt;br>Docu mented Infection Site: Abdominal< br>Duratio n of Therapy: Other (see Comments) Sliding Yes Subcutaneo Univ ers Scale 2-20 us, [...] Routine insulin 2020- No 30U 30 Units, [facility] ers detemir 11-04 Subcutaneo ity o f U-100 01:30: 14:24 us, DAILY, [place] (LEVEMIR 00 :53 First dose Medic al U-100 on Fri INSULIN) 11/03/19 at injection 1930, 30 Units Until Discontinu ed, Routine glipiZIDE Yes 10mg 10 mg, Univer s (GLUCOTROL) - Oral, ity of tablet 10 00:45: BIDAC, [...] ity o f (PF)) 18:15: 17:26 Push, [place] injection 00 :00 ONCE, 1 Medical 125 [...] ity o f (PF)) 17:00: 16:06 Push, [place] injection 00 :00 ONCE, 1 Medical 100 mcg dose, Wed Branch 11/03/19 at 1100, Routine ondansetron 2019- No 4mg 4 mg, Slow Univers (ZOFRAN 11-03 IV Push, ity of (PF)) 17:00: 16:06 ONCE, 1 [place] injection 4 00 :00 dose, Wed Med ical mg 11/03/19 at Branch 1100, MANDEEP cyclobenzap 2018-09 2020- No [id number] 5mg Take 1 Univers rine 5 mg 011-06 9100 tablet by ity of tablet 00:00: 00:00 mouth 3 [place] 00 :00 (three) Medical times Branch daily. traMADol 2018-09 2020- No [id number] 50mg Take 1 Univers (ULTRAM) 50 11-06 [...] needed for Cough. DO NOT CHEW! ondansetron 2019- No 4mg Take 1 Uni vers (ZOFRAN [...] 2020-04-24 13:23:00 129 mm[Hg] Univer sity of [facility] Diastolic blood 2020-04-24 13:23:00 81 mm[Hg] Unive rsity of [facility] Heart rate 2020-04-24 13:23:00 82 /min Universi ty [facility] Body weight 2020-04-24 13:23:00 138.075 kg Universi ty [facility] BMI 2020-04-24 13:23:00 39.08 kg/m2 Universi ty [facility] Systolic blood 2020-04-24 13:23:00 129 mm[Hg] Univer sity of [facility] Diastolic blood 2020-04-24 13:23:00 81 mm[Hg] Unive rsity of [facility] Heart rate 2020-04-24 13:23:00 82 /min Universi ty [facility] Body weight 2020-04-24 13:23:00 138.075 kg Universi ty [facility] BMI 2020-04-24 13:23:00 39.08 kg/m2 Universi ty [facility] Systolic blood 2020-04-07 03:51:00 118 mm[Hg] Univer sity of [facility] Diastolic blood 2020-04-07 03:51:00 68 mm[Hg] Unive rsity of [facility] Heart rate 2020-04-07 03:51:00 92 /min Universi ty [facility] Respiratory rate 2020-04-07 03:51:00 16 /min Univ ersity of [place] [facility] Oxygen saturation in 2020-04-07 03:51:00 100 /min University of Arterial blood by [facility] Pulse oximetry Branch Body temperature 2020-04-07 03:40:00 36.44 Leonor Univ ersity [facility] [place] [facility] Body weight 2020-04-07 00:07:00 129.275 kg Universi ty [facility] [place] [facility] BMI 2020-04-07 00:07:00 36.59 kg/m2 [facility]i [facility] [place] [facility] Heart rate 2020-02-19 23:10:00 105 /min [facility]i [facility] [place] [facility] Respiratory rate 2020-02-19 23:10:00 29 /min Univ ersity [facility] [place] [facility] Oxygen saturation in 2020-02-19 23:10:00 94 /min University of Arterial blood by [facility] Pulse oximetry Branch Systolic blood 2020-02-19 23:00:00 127 mm[Hg] Univer sity of pressure [place] [facility] Diastolic blood 2020-02-19 23:00:00 78 mm[Hg] Unive rsity of pressure [place] [facility] Body temperature 2020-02-19 22:04:10 37.33 Leonor Univ ersity [facility] [place] [facility] Body height 2020-02-19 19:56:00 188 cm [facility]i ty [facility] [place] [facility] Body weight 2020-02-19 19:56:00 129.275 kg [facility]i [facility] [place] [facility] BMI 2020-02-19 19:56:00 36.59 kg/m2 [facility] [place] [facility] Systolic blood 2019-11-06 17:14:00 138 mm[Hg] Univer sity of pressure [place] [facility] Diastolic blood 2019-11-06 17:14:00 88 mm[Hg] Unive rsity of pressure [place] [facility] Heart rate 2019-11-06 17:14:00 102 /min [facility]i ty [facility] [place] [facility] Respiratory rate 2019-11-06 17:14:00 18 /min Univ ersity [facility] [place] [facility] Oxygen saturation in 2019-11-06 17:14:00 96 /min University of Arterial blood by [facility] Pulse oximetry Branch Body temperature 2019-11-06 14:00:00 36.72 Leonor Univ ersity [facility] [place] [facility] Body height 2019-11-03 23:00:00 188 cm [facility]i ty [facility] [place] [facility] Body weight 2019-11-03 15:22:00 129.275 kg [facility] BMI 2019-11-03 15:22:00 36.58 kg/m2 [facility] Procedures Procedure Date / Time Performing Clinician Source Performed EGD (ENDO) 2020-04-07 02:31:21 Lisa Armendariz [facility] COMP. METABOLIC PANEL 2020-04-07 01:52:00 Yazmin Apple [facility] ([id number]) Medical Branch CBC WITH DIFF 2020-04-07 01:52:00 Yazmin Apple [place] o [facility] XR NECK SOFT TISSUE 2020-04-07 00:57:29 Yazmin Apple [facility] COVID-19 (ID NOW RAPID 2020-04-07 00:40:00 Yazmin Apple [facility] TESTING) Medical Branch NOTICE OF PRIVACY 2020-04-06 23:57:19 [facility]igned, [facility] Branch CONSENT/REFUSAL FOR 2020-04-06 23:57:05 Doctor Unassigned, No Un [facility] [place] DIAGNOSIS AND TREATMENT Name Medical Branch REFERRAL- 2020-03-29 05:01:00 Doctor Unassigned, No [facility] REQUEST/RESPONSE Name Medical Branch POCT GLUCOSE 2020-02-19 23:05:00 Meggan Hernandez [facility] (AUTOMATED) Medical Branch POCT GLUCOSE 2020-02-19 21:52:00 Meggan Hernandez [facility] (AUTOMATED) Medical Branch COMP. METABOLIC PANEL 2020-02-19 20:47:00 Meggan Hernandez [facility] ([id number]) Medical Branch CBC WITH DIFFERENTIAL 2020-02-19 20:47:00 Meggan Hernandez [facility] COVID-19 (ID NOW RAPID 2020-02-19 20:47:00 Meggan Hernandez [facility] TESTING) Medical Branch NOTICE OF PRIVACY 2020-02-19 19:53:34 Doctor Unassigned, No [email or web address] [facility] PRACTICES Name Medical Branch CONSENT/REFUSAL FOR 2020-02-19 19:53:23 Doctor Unassigned, No Un [facility] [place] DIAGNOSIS AND TREATMENT Name Medical Branch POCT GLUCOSE 2019-11-06 13:36:00 [facility] POCT GLUCOSE 2019-11-06 01:48:00 [facility] Branch POCT GLUCOSE 2019-11-05 22:16:00 Pavithra [facility] (AUTOMATED) Medical Branch POCT GLUCOSE 2019-11-05 17:26:00 Luis Mandujano [facility] (AUTOMATED) Medical Branch POCT GLUCOSE 2019-11-05 13:21:00 Pavithra [facility] (AUTOMATED) Medical Branch BASIC METABOLIC PANEL 2019-11-05 10:28:00 [facility] (NA, K, CL, CO2, Medical Branch GLUCOSE, BUN, CREATININE, CA) CBC WITH DIFFERENTIAL 2019-11-05 10:28:00 [facility] Medical Branch POCT GLUCOSE 2019-11-05 10:12:00 [facility] Branch POCT GLUCOSE 2019-11-05 06:12:00 Pavithra [facility] (AUTOMATED) Medical Branch POCT GLUCOSE 2019-11-05 01:41:00 Pavithra [facility] (AUTOMATED) Medical Branch POCT GLUCOSE 2019-11-04 22:26:00 Pavithra [facility] (AUTOMATED) Medical Branch POCT GLUCOSE 2019-11-04 17:20:00 Pavithra [facility] (AUTOMATED) Medical Branch POCT GLUCOSE 2019-11-04 13:21:00 Pavithra [facility] (AUTOMATED) Medical Branch POCT GLUCOSE 2019-11-04 11:57:00 Pavithra [facility] (AUTOMATED) Medical Branch POCT GLUCOSE 2019-11-04 05:30:00 Pavithra [facility] (AUTOMATED) Medical Branch POCT GLUCOSE 2019-11-04 02:17:00 Pavithra [facility] (AUTOMATED) Medical Branch POCT GLUCOSE 2019-11-03 23:23:00 Pavithra [facility] (AUTOMATED) Medical Branch POCT GLUCOSE 2019-11-03 21:41:00 Luis Mandujano [place] [facility] (AUTOMATED) [facility] SURGICAL PATHOLOGY EXAM 2019-11-03 20:26:00 Yonatan Lund Uni versity [facility] LAPAROSCOPIC 2019-11-03 19:24:00 Yonatan Lund [facility] APPENDECTOMY [facility] CT ABDOMEN PELVIS W 2019-11-03 17:41:22 Ervin Rhoades [facility] CONTRAST [facility] LIPASE 2019-11-03 15:35:00 Ervin Rhoades [facility] COMP. METABOLIC PANEL 2019-11-03 15:35:00 Ervin Rhoades [facility] ([id number]) [facility] CBC WITH DIFFERENTIAL 2019-11-03 15:35:00 Ervin Rhoades [facility] GLYCOSYLATED HEMOGLOBIN 2019-11-03 15:35:00 Meggan Pichardo [facility] (A1C) [facility] URINALYSIS 2019-11-03 15:35:00 Jf [facility] [place] [facility] Encounters Start End Encounter Admission Attending Care Care Encounter Source Date/Time Date/Time Type Type Clinicians Facility Department ID 2020-08-15 2020-08-15 Outpatient R [facility] [id number] Univers 10:00[facility]00 [facility] 2020-08-15 [facility] [id number] Univers 10:00:00 10:00:00 SILVINA [facility] 2020-08-14 2020-08-14 Outpatient R [facility] [id number] Univers 10:40:00 10:40:00 [id number] [facility] 2020-04-24 2020-04-24 Office [facility] [id number] 08:15:37 08:49:56 Visit Norberto Ward [id number] [place] [id number] [place] [id number] nal 092 [facility] 2020-04-24 2020-04-24 Office [facility] [id number] [facility] 08:15:37 08:49:56 Visit Norberto Ward [id number] [place] [id number] [place] Profess[place] [phone] Md dical nal 092 [facility] 2020-04-24 2020-04-24 Outpatient R NORBERTO BERNAL [facility] [id number] Univers 08:00:00 08:00:00 NORBERTO BERNAL ity of [facility] 2020-04-06 2020-04-06 Emergency Yazmin Apple [facility] [id number] Univers 19:12:13 22:55:00 Cassy [place] [id number] i [place] [id number] [place] [id number] [facility] 071 [place] 2020-04-06 2020-04-06 Emergency X Yazmin APPLE [facility] ERT [id number] Univers 19:12:13 19:12:13 ity of [facility] 2020-04-06 2020-04-06 Orders Doctor SNEED [id number] Univers 00:00:00 00:00:00 Only Unassigned, MIRI [id number] ity of [place] [facility] [id number] Danie as [id number] [facility] 009 [place] 2020-03-29 2020-03-29 Orders Doctor NAREN [id number] Univers 00:00:00 00:00:00 Only Unassigned, MIRI [id number] ity of [place] [facility] [id number] Danie as [id number] [facility] 009 [place] 2020-02-19 2020-02-19 [facility] [id number] Univers 15:07:18 19:22:00 Meggan [place] [id number] i ty [place] [id number] [place] [id number] [facility] 084 [place] 2020-02-19 2020-02-19 Emergency X [facility] ERT [id number] Univers 14:53:00 14:53:00 ity of [facility] 2020-02-19 2020-02-19 Orders Doctor SNEED [id number] Univers 00:00:00 00:00:00 Only Unassigned, MIRI [id number] ity of [place] [facility] [id number] Danie as [phone] [facility] 009 Branch 2019-11-08 2019-11-08 Transition Faraz Nicolas [id number] Univers 00:00:00 00:00:00 of Care Hortensia De Jesus [id number] ity of [id number] [place] [id number] [facility] 403 Branch 2019-11-03 2019-11-06 Hospital Ervin Rhoades [facility] [id number] Univers 09:25:15 12:00:00 Encounter Luis Mandujano [id number] ity of [place] [id number] [place] [id number] [facility] 080 Branch 2019-11-03 2019-11-06 Inpatient X PAVITHRA [facility] [id number] Univers 09:25:15 12:00:00 LUIS osman [facility] Results Test Description Test Time Test Comments Results Result Comments Source COMP. METABOLIC PANEL (21996) 2020-04-07 03:03:00 Test Item Value Reference Range Interpretation Comme nts NA (test code = 9652735023) 139 mmol/L 135-145 K (test code = 1895845025) 4.4 mmol/L 3.5-5 CL (test code = 6341367026) 101 mmol/L 98-108 CO2 TOTAL (test code = 8170728558) 28 mmol/L 23-31 AGAP (test code = 2384478098) 2-16 BUN (test code = 7746517124) 11 mg/dL 7-23 GLUCOSE (test code = 5894657891) 225 mg/dL 70-110 H CREATININE (test code = 0.98 mg/dL 0.6-1.25 3046086960) TOTAL BILI (test code = 0.5 mg/dL 0.1-1.7 3941683803) CALCIUM (test code = 4998793800) 9.6 mg/dL 8.6-10.6 T PROTEIN (test code = 0855180635) 8.2 g/dL 6.3-8.2 ALBUMIN (test code = 1561891569) 4.7 g/dL 3.5-5 ALK PHOS (test code = 9852990912) 75 U/L 34-122 ALTv (test code = 1742-6) 74 U/L 5-50 H AST(SGOT) (test code = 7900479547) 39 U/L 13-40 eGFR Calculation (Non- mL/min/1.73m2 Citizen Of [place]) (test code = 5727795047) eGFR Calculation ( mL/min/1.73m2 Citizen Of [place]) (test code = 1828557046) KATE (test code = KATE) Association of [...] tests). Lab Interpretation (test code = Abnormal 14450-4) [facility] WITH [id number] 02:12:00 Test Item Value Reference Range Interpretation Comments WBC (test code = See_Comment [Automated 6690-2) message] The sy stem which generated this [...] (test code = 36.4 fL 38.5-51.6 L 06416-9) RDW-CV (test code = 12.5 % 12.1-15.4 788-0) PLT (test code = See_Comment [Automated 777-3) message] The sy stem which generated this result transmitted reference range : 150 - 328 10*3/ ?L. The reference r jevon was not used to interpret this result as normal/abnormal . MPV (test code = 11.5 fL 9.8-13 76116-5) NRBC/100 WBC (test See_Comment [Automat ed code = 4326699728) message] The system which generated this result transmitted reference range : 0.0 - 10.0 /100 WBCs. The refer ence range was not u sed to interpret th is result as normal/abnormal . NRBC x10^3 (test code <0.01 See_Comment [Auto mated = 1620778058) message] The s ystem which generated this result transmitted reference range : 10*3/?L. The reference range was not used to interpret this result as normal/abnormal . GRAN MAT (NEUT) % 68.0 % (test code = 770-8) IMM GRAN % (test code 0.40 % = 2856008506) LYMPH % (test code = 23.8 % 736-9) MONO % (test code = 4.7 % 5905-5) EOS % (test code = 2.7 % 713-8) BASO % (test code = 0.4 % 706-2) GRAN MAT x10^3(ANC) 5.24 10*3/uL 1.99-6.95 (test code = 6219533960) IMM GRAN x10^3 (test 0.03 10*3/uL 0-0.06 code = 7399579934) LYMPH x10^3 (test code 1.83 10*3/uL 1.09-3.23 = 731-0) MONO x10^3 (test code 0.36 10*3/uL 0.36-1.02 = 742-7) EOS x10^3 (test code = 0.21 10*3/uL 0.06-0.53 711-2) BASO x10^3 (test code 0.03 10*3/uL 0.01-0.09 = 704-7) Lab Interpretation Abnormal (test code = 53526-8) [facility]2020[facility]-07 01:40:00 Test Item Value Reference Range Interpretation Comments SARS-CoV-2 Rapid ID NOW Not Detected Not Detected (test code = 96585-5) KATE (test code = KATE) ID NOW COVID-19 Assay is an isothermal nucleic acid amplification test intended for the qualitative detection of nucleic acid from SARS-CoV-2 viral RNA in nasopharyngeal (BLOCKING MACHINE OPERATOR) specimens. It is used under Emergency Use [...] indicated. Lab Interpretation Normal (test code = 71792-6) [facility] [id number] 01:06:58 FINDINGS/IMPRESSION:: Frontal and lateral radiographs of [...] spondylotic changes at C5-C6. Cervical spine is otherwiseunremarkable.[facility] GLUCOSE (AUTOMATED) 2020-02-19 23:08:00 Test Item Value Reference Range Interpretation Comments POCT GLU (test code = 1563552784) 243 mg/dL 70-110 H Lab Interpretation (test code = Abnormal 49197-5) [facility] GLUCOSE (AUTOMATED)2020-02-19 21:58:00 Test Item Value Reference Range Interpretation Comments POCT GLU (test code = 5859322764) 313 mg/dL 70-110 H Lab Interpretation (test code = Abnormal 05384-0) [facility]ID [facility]2020-02-19 21:31:00 Test Item Value Reference Range Interpretation Comments SARS-CoV-2 Rapid ID NOW Not Detected Not Detected (test code = 68304-6) KATE (test code = KATE) ID NOW COVID-19 Assay is an isothermal nucleic acid amplification test intended for the qualitative detection of nucleic acid from SARS-CoV-2 viral RNA in nasopharyngeal (BLOCKING MACHINE OPERATOR) specimens. It is used under Emergency Use [...] indicated. Lab Interpretation Normal (test code = 97576-7) [facility] (63216)2020-02-19 21:29:00 Test Item Value Reference Range Interpretation Comments NA (test code = 134 mmol/L 135-145 L 8669366047) K (test code = 4.1 mmol/L 3.5-5 6023225264) CL (test code = 99 mmol/L 98-108 5531271996) CO2 TOTAL (test code = 27 mmol/L 23-31 6797884313) AGAP (test code = 2-16 1815522595) BUN (test code = 10 mg/dL 7-23 5048073195) GLUCOSE (test code = 372 mg/dL 70-110 H 1420464201) CREATININE (test code = 0.96 mg/dL 0.6-1.25 0474339357) TOTAL BILI (test code = 0.4 mg/dL 0.1-1.1 3945487312) CALCIUM (test code = 9.2 mg/dL 8.6-10.6 1998885646) T PROTEIN (test code = 7.5 g/dL 6.3-8.2 3588552827) ALBUMIN (test code = 4.5 g/dL 3.5-5 6454733278) ALK PHOS (test code = 86 U/L 34-122 9697851742) ALTv (test code = 48 U/L 5-50 1742-6) AST(SGOT) (test code = 27 U/L 13-40 5978447060) eGFR Calculation mL/min/1.73m2 (Non-) (test code = 5880540987) eGFR Calculation mL/min/1.73m2 () (test code = 7491021605) KATE (test code = KATE) Association of [...] tests). Lab Interpretation Abnormal (test code = 01513-1) [facility] WITH [id number] 21:06:00 Test Item Value Reference Range Interpretation Comments WBC (test code = See_Comment [Automated 9096-2) message] The sy stem which generated this result transmitted reference range : 4.20 - 10.70 10*3/?L. The reference range was not used to interpret this result as normal/abnormal . RBC (test code = See_Comment H [Automated 009-8) message] The sy stem which generated this [...] (test code = 36.3 fL 38.5-51.6 L 59018-6) RDW-CV (test code = 12.9 % 12.1-15.4 788-0) PLT (test code = See_Comment [Automated 777-3) message] The sy stem which generated this result transmitted reference range : 150 - 328 10*3/ ?L. The reference r jevon was not used to interpret this result as normal/abnormal . MPV (test code = 11.3 fL 9.8-13 29486-0) NRBC/100 WBC (test See_Comment [Automat ed code = 8386346850) message] The system which generated this result transmitted reference range : 0.0 - 10.0 /100 WBCs. The refer ence range was not u sed to interpret th is result as normal/abnormal . NRBC x10^3 (test code <0.01 See_Comment [Auto mated = 8346664304) message] The s ystem which generated this result transmitted reference range : 10*3/?L. The reference range was not used to interpret this result as normal/abnormal . GRAN MAT (NEUT) % 79.8 % (test code = 770-8) IMM GRAN % (test code 0.50 % = 9301607267) LYMPH % (test code = 13.4 % 736-9) MONO % (test code = 4.2 % 5905-5) EOS % (test code = 1.8 % 713-8) BASO % (test code = 0.3 % 706-2) GRAN MAT x10^3(ANC) 8.49 10*3/uL 1.99-6.95 H (test code = 8617695121) IMM GRAN x10^3 (test 0.05 10*3/uL 0-0.06 code = 2926672596) LYMPH x10^3 (test code 1.42 10*3/uL 1.09-3.23 = 731-0) MONO x10^3 (test code 0.45 10*3/uL 0.36-1.02 = 742-7) EOS x10^3 (test code = 0.19 10*3/uL 0.06-0.53 711-2) BASO x10^3 (test code 0.03 10*3/uL 0.01-0.09 = 704-7) Lab Interpretation Abnormal (test code = 94547-2) [facility] GLUCOSE (AUTOMATED)2019-11-06 13:38:00 Test Item Value Reference Range Interpretation Comments POCT GLU (test code = 8409489968) 116 mg/dL 70-110 H Lab Interpretation (test code = Abnormal 32988-3) [facility] GLUCOSE (AUTOMATED)2019-11-06 12:29:00 Test Item Value Reference Range Interpretation Comments POCT GLU (test code = 0360547831) 322 mg/dL 70-110 H Lab Interpretation (test code = Abnormal 83183-5) [facility] GLUCOSE (AUTOMATED)2019-11-06 12:29:00 Test Item Value Reference Range Interpretation Comments POCT GLU (test code = 4214909451) 230 mg/dL 70-110 H Lab Interpretation (test code = Abnormal 86229-8) [facility] GLUCOSE (AUTOMATED)2019-11-06 02:00:00 Test Item Value Reference Range Interpretation Comments POCT GLU (test code = 155 mg/dL 70-110 H Notifi ed Provider 1915233262) Lab Interpretation (test Abnormal code = 82287-9) [facility] [id number] 00:02:00 Test Item Value Reference Range Interpretation Comments Case Report (test code Surgical Pathology ? ? = [id number]) ?Case: [id number] ? Authorizing Provider: ?Yonatan Lund MD ? ? ? Collected: ? 11/03/2019 1426 ?Ordering Location: ? ? [facility] ? ? ?Received: ?11/03/2019 1555 ? [facility] ?Pathologist: ? Klaus Tinoco MD ? Specimen: ? ?APPENDIX, appendix ? Final Diagnosis (test v0tbxOSlPQAbl1msMKIbrI code = 6969618620) FuZzEwMzNcZnRuYmpcdWMx QYglndDyQZdnd2JsJ7AmIw AwMFxhbnNpXGRlZmxhbmcx ZMMiXPW6jlHdRUVmWCjcZI IwMGuxFi0fyQWrnHsmDrBf MZMqu2uthyAVnticjFw8u2 gdBQQxFvU7sEHjGJohZ4uw qkGuyEToRWJxOSa4nC80DY AduY6dmGKpBVioxvMjHAvx jwCshpApJmz2WADdD2avVJ WnTVJeZ6WvSG9kYELlFvk6 GAT0GUB0mXury0V6pULcsX EafPqvOoUvXcNvCSSLk5Fq BHi5rPwgX3PvQHQdPeE7fG QgUGFyYWdyYXBoIEZvbnQ7 kZ08GDzyobZ1mBSpa0Fdd1 3qv907mD2goGIjOKR8JAGo CMXxgWFcDREfDRZ3GHHjxL BtP3miLGlrLU0iixpzDQA2 MFxtYXJndDcyMFxtYXJnYj JhdEBnZUMegYkbIUwbl264 TJW8EaXeKJ6dI6Sts1B0vW 9maXRcZGVmdGFiNzIwXGZv ag6seKJlCPxvo7HuJJW9so P0uPVynVLzIVLrNZ63Afdr n7VnZqygZKZ5HQQvzhFaa1 Jrm9bsNoPksyCnC4yxU5Ng ZHJoZWFkXHBnYnJkcmZvb3 Ihn0KdqDWjdDp3r3aaVXNf ASDryDbwf5iuLOH7KKXfD3 O7aFCvr1fkUHjwOWKxfGE2 fuFtWAAzlBIwM0EycX1vFC fpPB4pile6k9mrXuIcYS3n ezlhh2tyWGldKBAiGAE9Zq KvBTVtn6TatzvkSbUtx4Ej hBQsEIiyU07ia290TUMmba VsF2wwkNUigshddJFnjcch MFxmczIwXHFsXHBsYWluXG FhJFIhTxLasJgubA3cZsWb ZnMyMFxwYXJccGFyZFxwbG FpblxmMFxmczIwXHBsYWlu EPFxERWlXxClZR1uOKCWXB 9MBKyuDTCKRIOTLZDYFP1P WTpccGFyXHFsXHBsYWluXG MuGTUrBkLapNtowY4rZoWk EoIcILHoGEFfDQ5tWCFQZX SvDNPPEW7LOIUKRIqAMStW VLxfYGXYJX3VZPUBNtSLI6 lUSVNccGFyXHBhciBNYXR0 nBC0XFYetAEjOPPTAFtwIG XwcHzjsU0zMyNzNdGwDbgm EN0kBRJoT6juvSSgHZUxVF FgX6khVcXdyY3uyLmoDEzo ZjFcZnMyMiBIYXJzaHdhcm SfTF1sTEumw2JbDUOUJJGv Cl2oUB8oXYInQXD8AcMaNQ BNXHBsYWluXGYxXGZzMjBc lHWvnIbfveTwCHndp2GkW7 YyMjAwMFxhbnNpXGRlZmxh wfodBKTdTXK5dzSaQZBnGC lbTDUmJEzoWo7kpKWzzTui GiVkWNFrd0yhjgIZRVwlWi UiP642MBYwAXmld0agv0Up OXLcsAQov3T9WBFXwbfvkC a8i2qbSkTbHqS9dMMsTDis J5ifhbRhpLSuQ7CbaQXlsP q0pXqqE58pq0G6PuliQ0vi PLOfRMMrS4VuQZ3hFOYnAy v5TPD5VNF3OXNcMZLyB9Nv XJ2nZXIddHFmKGg7p7wjdM baWQAnXUL2u6lvEQlgzmX6 IO2bjc5wuRh1x5cfagOmMR KeQNIroWRVBUOvJ4RgtIka Yv0saBc8kVvvShuyVBG9As k4RQ1krr91qwu5eKveOOBb fnmjLlC6LQnpLLBvdmpyAN e6KHmuLSQreWK9LOZpqZXo Z3MeFFEcWN9rvty7MNK8TE dfRFUwUkS7OVDqzFLsPDGf gDgcZZmvz642UUL6ZiVaWU 8oD7Ilv2D2cJ9rrVXnGEEa dXXhIdXxWCEzma9ogFWmKZ nal6QvUDG8lsM2jOOuqBSh PNAbOE38Zitwf4FlKuqrHD Z5ETLdlqHbp2Fud6bfGnQo gpAvQ7isQ6StKXAqOCCrBG BbVtRfiwFdk9Trd5WkoCPn zAn2r1cwZMKqEVEbzZlee9 ryWLD7OVKfC0B2lBNwq4lw MOrbNCGuhCA1euP3BCAolF ZwU3OuiE1wAZTaNS0nagg5 l4fsXJX3ATfjFBMpZyW3fg V7XOBkaDXkJXHobKacVDug d489VAF3BuKrKESbw8VlA3 FukHllP22boUjhW09uECCh eIqgyJ6gyMndeU0rQpGeWc MyNFxxbFxwbGFpblxmMVxm czIwXGxhbmcxMDMzXGhpY2 aqMvGhCHNllAwlJMpjp0Vq XGYxXGNmMlxmczIwXHBhci YAMQcsmaTkkRNcv06mVQaa eSByZXZpZXdlZCBhbGwgc3 UqQ2utSH2cB0IxwAGuofYh ppVpNWcvPNOcx2j7vPRoyC sto0EhuYUsVR90lxVcMLQw RPE5LEGzc6tbYG45taxbJi MkuR36wwDkxtZnLPVjf8tz C0hpcHGeh3Puz7KhefDlSJ yay4VhLY5oqHXuzoxsbKF1 EHIoyVCdmnNxsbM2hIhzLX GdhG2isN0zrBcrfQ5fDgUf GbUoPObaHS0lIILbG5kxwX MqDISeTUIgM1tsEdFmrT8n xZbgMrnldqI4WKNknx58 Clinical Information Acute abdomen (test code = 7774137154) Gross Description (test g5ozoPFgBOAjfOGtLlBdUP code = 2310970854) EvVCAxu0raZXZoqWCrHsTt MzNcZnRuYmpcdWMxXGRlZm Djy5eyk827rACxx7hwIAXy VlX0mSQjPCRtrOSbZ853NL UbMFfot4kuk4FqLDWkeAPe i2E3APBHgukweZj3vNhhS2 5gb6S9IpnnM1izDNIiNDek TXEdVQrwiKIwKNJ7EZCyDH J0OHqwjpSambH8NJohdOIg AjA8TRw5x9kfdEvpUWMrXE Y0h8uvTErhixIdRC2mbl6c vUk9a2hidcJmIBDbNLXobY LUDULyH4WnnVlzHv9wlGk8 xTitYcpjGJS3Cbz4SN3fxf 23ivt4iTxhKTHlergrUzA2 NYwfHZPudwlsMAq3ESnjVM KrgOPjPTRtpDAfE4YmPCvb PQ8ypxk3HtQyEO7wgaelCZ kvYCOfLBX6AzUpKJQxm1Wk qtnfPnOusk6jgr94OQZ7i0 UahDovPTJ2PUC6IpIzGu8n nOIoXAPyJL6bXaLpqJSwEF Kabq60uLozBZiejqRdwJ2h OoWcHQOdrMLjLINgNO9axG UbLQDviT0fnjzbHYDrTgGo zuolSYVkrTmcvmHsWn6wdL lcOXF3RWejY9bjxO1lBbS0 LHqjZ6kefE6hXPs8WZnufD D0MSJoaO6wAU1expyzo0dj VUO7MImsYGTtpiX4zzLaZP KrzWBxW4CzaT07JnWsxEIb C5BlsT4gGRzhVAKiwbd8Gq QdOn4lmFHivGP3ZGchAwyf YWdlXHBnbmNvbnRccGduZG VjXHBsYWluXHBsYWluXGYw CXYhSnQxy9IhPTKde9bxTo Xnw6yydQt4FQgrkWnxhCRi blxmMFxmczIwXHBsYWluXG ZoMAOnRdJxK2OxP8reRD8g QSBpcyByZWNlaXZlZCBpbi Nrq0GjUAbpmbAwEFBjxRin XIQ5fJVhHGUdMRVoKPJjTP 50XHBsYWluXGYxXGZzMjBc gBzzVJxbIJy8IdpnaLDcts xmMVxmczIwIHMgbmFtZSwg VUggbnVtYmVyICJhcHBlbm RpeFxwbGFpblxmMVxmczIw SOE1OiZeXCkhTBSjoOfrwX 3iEqOnBsHkKEIkMA3lOSNr uuBaz0VfWQ2bEOJvcVjikr 19ZO5wyeQpqVmbw3NeYRDw zOKkCFj1XZj4ZkzpT79erU 6juEIdD8PrRVrqSI39GNSd OCBjbSBpbiBkaWFtZXRlci wcr2m1wWQjtMMrD6ucDEL2 BGmtu1mlxD4brDmlrTUiHM Tkg1C6aARbEACnRSCmXXZv JD6reKfsWBHtRZT9JMLiJK F9AQLaNEAqnUauMUXRuEXt QFDcHV8niJscw2Mui1AcWP hqf4PeYGFkcoO0rJOzSNJ6 gSRgiHYiBTQxgbJwqZK7aL VudCBleHVkYXRlLiBUaGUg HZMmES4rbMcxgYNlt7FhbR JoyWqtl2GgzSakcsUoOXZs IHJldmVhbCBhIHBhdGVudC NbjO2hyzpgkkUsY1zrHhUa cj1cSFHlhrBrqJ75AAQeNO ZpEmUbgAekN81qbQFkavmz NoJhG4GmxWOqHP4ndhPqVY dlLiAgVGhlIHdhbGwgdGhp P0brYOWdYLIzetylaaOfft 6pUMYzHV6mDyRzY15cGNNy cnVwdHVyZSBzaXRlIGlzIG oab0CprIxwxPSzihJbIqxa GGuaKJ3tJTIuJZZtr07wzC khYQ46V42yVUrsmqGuTOQ3 wN0kTX0nxtfvcs9qKpNbhq QtWH73JMXyucLpk8UekGan tkKpq0efT6zxoB5leLPiVL Raml1cwmOsTHR5uC7muuwu bSvtSRBkiMLmeY9uRXFgwu FxKVB9jZ5rTI8brgbjjpFo bmQgZGlzdGFsIHRpcCBhcm Tmw1NvkZh9kWKgUOnsBKKh LUEyLlxwYXJccGFyZFxwbG FpblxmMFxmczIwXHBsYWlu XGYxXGZzMjAgSnVsaWUgTW SNzVwsgpJ8FUMFAFcnEWX7 Embedded Images (test code = 1801144653) [facility] GLUCOSE (AUTOMATED)2019-11-05 22:19:00 Test Item Value Reference Range Interpretation Comments POCT GLU (test code = 5975996113) 115 mg/dL 70-110 H Lab Interpretation (test code = Abnormal 96259-9) [facility] GLUCOSE (AUTOMATED)2019-11-05 18:23:00 Test Item Value Reference Range Interpretation Comments POCT GLU (test code = 3634947911) 197 mg/dL 70-110 H Lab Interpretation (test code = Abnormal 98295-9) [facility] GLUCOSE (AUTOMATED)2019-11-05 17:33:00 Test Item Value Reference Range Interpretation Comments POCT GLU (test code = 4246779549) 125 mg/dL 70-110 H Lab Interpretation (test code = Abnormal 46893-7) [facility] GLUCOSE (AUTOMATED)2019-11-05 13:28:00 Test Item Value Reference Range Interpretation Comments POCT GLU (test code = 4220430375) 130 mg/dL 70-110 H Lab Interpretation (test code = Abnormal 13492-2) [facility] METABOLIC PANEL (NA, K, CL, CO2, GLUCOSE, BUN, CREATININE, CA)2019-11-05 12:11:00 Test Item Value Reference Range Interpretation Comments NA (test code = 137 mmol/L 135-145 1126509940) K (test code = 3.6 mmol/L 3.5-5 9733801389) CL (test code = 100 mmol/L 98-108 8852394339) CO2 TOTAL (test code = 30 mmol/L 23-31 2145697917) AGAP (test code = 2-16 9878551905) BUN (test code = 14 mg/dL 7-23 9118083624) GLUCOSE (test code = 164 mg/dL 70-110 H 5000925755) CREATININE (test code = 0.81 mg/dL 0.6-1.25 2816642711) CALCIUM (test code = 8.6 mg/dL 8.6-10.6 9819843229) eGFR Calculation mL/min/1.73m2 (Non-) (test code = 2816417219) eGFR Calculation mL/min/1.73m2 () (test code = 4562397784) KATE (test code = KATE) Association of [...] tests). Lab Interpretation Abnormal (test code = 96272-8) [facility] WITH [id number] 11:39:00 Test Item Value Reference Range Interpretation Comments WBC (test code = See_Comment [Automated 3635-2) message] The sy stem which generated this result transmitted reference range : 4.20 - 10.70 10*3/?L. The reference range was not used to interpret this result as normal/abnormal . RBC (test code = See_Comment [Automated 406-9) message] The sy stem which generated this result transmitted reference range : 4.26 - 5.52 10*6/?L. The reference range was not used to interpret this result as normal/abnormal . HGB (test code = 14.2 g/dL 12.2-16.4 928-7) HCT (test code = 42.9 % 38.4-49.3 4544-3) MCV (test code = 82.3 fL 81.7-95.6 787-2) MCH (test code = 27.3 pg 26.1-32.7 785-6) MCHC (test code = 33.1 g/dL 31.2-35 786-4) RDW-SD (test code = 38.7 fL 38.5-51.6 74060-4) RDW-CV (test code = 13.0 % 12.1-15.4 788-0) PLT (test code = See_Comment [Automated 777-3) message] The sy stem which generated this result transmitted reference range : 150 - 328 10*3/ ?L. The reference r jevon was not used to interpret this result as normal/abnormal . MPV (test code = 11.5 fL 9.8-13 93664-9) NRBC/100 WBC (test See_Comment [Automat ed code = 6049099828) message] The system which generated this result transmitted reference range : 0.0 - 10.0 /100 WBCs. The refer ence range was not u sed to interpret th is result as normal/abnormal . NRBC x10^3 (test code <0.01 See_Comment [Auto mated = 8112335815) message] The s ystem which generated this result transmitted reference range : 10*3/?L. The reference range was not used to interpret this result as normal/abnormal . GRAN MAT (NEUT) % 83.5 % (test code = 770-8) IMM GRAN % (test code 0.30 % = 2061941076) LYMPH % (test code = 9.3 % 736-9) MONO % (test code = 5.7 % 5905-5) EOS % (test code = 1.1 % 713-8) BASO % (test code = 0.1 % 706-2) GRAN MAT x10^3(ANC) 7.74 10*3/uL 1.99-6.95 H (test code = 0418818742) IMM GRAN x10^3 (test 0.03 10*3/uL 0-0.06 code = 9930679840) LYMPH x10^3 (test code 0.86 10*3/uL 1.09-3.23 L = 731-0) MONO x10^3 (test code 0.53 10*3/uL 0.36-1.02 = 742-7) EOS x10^3 (test code = 0.10 10*3/uL 0.06-0.53 711-2) BASO x10^3 (test code <0.03 0.01-0.09 = 704-7) Lab Interpretation Abnormal (test code = 65334-8) [facility] GLUCOSE (AUTOMATED)2019-11-05 10:22:00 Test Item Value Reference Range Interpretation Comments POCT GLU (test code = 5379819585) 149 mg/dL 70-110 H Lab Interpretation (test code = Abnormal 53156-0) [facility] GLUCOSE (AUTOMATED)2019-11-05 06:15:00 Test Item Value Reference Range Interpretation Comments POCT GLU (test code = 0620153971) 204 mg/dL 70-110 H Lab Interpretation (test code = Abnormal 46140-7) [facility] GLUCOSE (AUTOMATED)2019-11-05 01:48:00 Test Item Value Reference Range Interpretation Comments POCT GLU (test code = 5801510651) 227 mg/dL 70-110 H Lab Interpretation (test code = Abnormal 99177-2) [facility] GLUCOSE (AUTOMATED)2019-11-04 22:30:00 Test Item Value Reference Range Interpretation Comments POCT GLU (test code = 8644269442) 132 mg/dL 70-110 H Lab Interpretation (test code = Abnormal 61304-6) [facility] GLUCOSE (AUTOMATED)2019-11-04 17:24:00 Test Item Value Reference Range Interpretation Comments POCT GLU (test code = 1644167257) 213 mg/dL 70-110 H Lab Interpretation (test code = Abnormal 81415-7) [facility] GLUCOSE (AUTOMATED)2019-11-04 13:31:00 Test Item Value Reference Range Interpretation Comments POCT GLU (test code = 0795422741) 203 mg/dL 70-110 H Lab Interpretation (test code = Abnormal 61262-7) [facility] GLUCOSE (AUTOMATED)2019-11-04 12:03:00 Test Item Value Reference Range Interpretation Comments POCT GLU (test code = 4039516237) 213 mg/dL 70-110 H Lab Interpretation (test code = Abnormal 02773-2) [facility] 23:50:00 Test Item Value Reference [...] Indicated Lab Interpretation Abnormal (test code = 80472-0) [facility] 23:28:00 Test Item Value Reference Range Interpretation Comments POCT GLU (test code = 8473345893) 273 mg/dL 70-110 H Lab Interpretation (test code = Abnormal 74898-3) [facility] W [id number] 18:01:52CT Abdomen and Pelvis with intravenous contrast. [...] Rhoades in the emergency room at 12:00. [facility], Radiant Results Inft User - 11/03/2019 12:02 PM [...] Dr. Rhoades in the emergency room at 12:00.[facility]00 Test Item Value Reference Range Interpretation Comments APPEARANCE (test code = Clear Clear 0370577667) COLOR (test code = Yellow Yellow 3622116935) PH (test code = 4.8-8.0 9837372321) SP GRAVITY (test code = 1.003-1.030 7112704516) GLU U QUAL (test code = 500 mg/dL Normal A 7365799574) BLOOD (test code = Negative Negative 9149812621) KETONES (test code = Negative Negative 0332247738) PROTEIN (test code = Negative Negative 2887-8) UROBILIN (test code = Normal Normal 4997876675) BILIRUBIN (test code = Negative Negative 3622893094) NITRITE (test code = Negative Negative 4164882266) LEUK BIANCA (test code = Negative Negative 6472642587) RBC/HPF (test code = See_Comment [Autom ated message] 7269508564) The system Get[employer] generated this result transmit yelena reference range : 0 - 3 HPF. The refe rence range was not u sed to interpret th is result as normal/abnormal . WBC/HPF (test code = See_Comment [Autom ated message] 5010650532) The system Get[employer] generated this result transmit yelena reference range : 0 - 5 HPF. The refe rence range was not u sed to interpret th is result as normal/abnormal . BACTERIA (test code = Negative Negative 0570940641) MUCOUS (test code = Slight Negative LPF A 4641199901) SQ EPITH (test code = <1 HPF 8830276870) Lab Interpretation (test Abnormal code = 20724-6) [facility]. METABOLIC PANEL (39374)2019-11-03 16:04:00 Test Item Value Reference Range Interpretation Comments NA (test code = 137 mmol/L 135-145 8354898103) K (test code = 4.3 mmol/L 3.5-5 5682021686) CL (test code = 98 mmol/L 98-108 8845290611) CO2 TOTAL (test code = 28 mmol/L 23-31 5186670319) AGAP (test code = 2-16 8235586083) BUN (test code = 11 mg/dL 7-23 1642479629) GLUCOSE (test code = 356 mg/dL 70-110 H 1462142074) CREATININE (test code = 1.01 mg/dL 0.6-1.25 6881753311) TOTAL BILI (test code = 0.9 mg/dL 0.1-1.4 3219847001) CALCIUM (test code = 9.1 mg/dL 8.6-10.6 2153167702) T PROTEIN (test code = 7.5 g/dL 6.3-8.2 1687750928) ALBUMIN (test code = 4.7 g/dL 3.5-5 3190060716) ALK PHOS (test code = 73 U/L 34-122 4346731306) ALTv (test code = 38 U/L 5-50 1742-6) AST(SGOT) (test code = 25 U/L 13-40 8150157346) eGFR Calculation mL/min/1.73m2 (Non-) (test code = 8211950646) eGFR Calculation mL/min/1.73m2 () (test code = 2778394502) KATE (test code = KATE) Association of [...] tests). Lab Interpretation Abnormal (test code = 33896-2) [facility] Test Item Value Reference Range Interpretation Comments LIPASE (test code = 7735682132) 48 U/L 0-220 Lab Interpretation (test code = Normal 99048-7) [facility] WITH [id number] 15:51:00 Test Item Value Reference Range Interpretation [...] (test code = 37.8 fL 38.5-51.6 L 14393-0) RDW-CV (test code = 12.7 % 12.1-15.4 788-0) PLT (test code = See_Comment [Automated 777-3) message] The system which generated this result transmit yelena reference range : 150 - 328 10*3/ ?L. The reference range was not u sed to interpret th is result as normal/abnormal . MPV (test code = 10.9 fL 9.8-13 72359-0) NRBC/100 WBC (test See_Comment [Automat ed code = 9143088114) message] The system which generated this result transmit yelena reference range : 0.0 - 10.0 /100 WBCs. The reference range was not used to interpret this result as normal/abnormal . NRBC x10^3 (test code <0.01 See_Comment [Auto mated = 7735259250) message] The system which generated this result transmit yelena reference range : 10*3/?L. The reference range was not used to interpret this result as normal/abnormal . GRAN MAT (NEUT) % 91.5 % (test code = 770-8) IMM GRAN % (test code 0.50 % = 8471543829) LYMPH % (test code = 3.9 % 736-9) MONO % (test code = 3.8 % 5905-5) EOS % (test code = 0.1 % 713-8) BASO % (test code = 0.2 % 706-2) GRAN MAT x10^3(ANC) 12.89 10*3/uL 1.99-6.95 H (test code = 3845445897) IMM GRAN x10^3 (test 0.07 10*3/uL 0-0.06 H code = 6014178243) LYMPH x10^3 (test code 0.55 10*3/uL 1.09-3.23 L = 731-0) MONO x10^3 (test code 0.54 10*3/uL 0.36-1.02 = 742-7) EOS x10^3 (test code = <0.03 0.06-0.53 L 711-2) BASO x10^3 (test code 0.03 10*3/uL 0.01-0.09 = 704-7) Lab Interpretation Abnormal (test code = 02629-8) [facility]"
[2021-10-04] MEDS ORDERED: METOCLOPRAMIDE 10 MG/2mL INJ ONE (11:06)
[2021-10-04] MEDS ORDERED: DIPHENHYDRAMINE 50 MG/ML VIAL ONE (11:06)
[2021-10-04] MEDS ORDERED: NA CHLORIDE 0.9% 500 ML ONE (11:07)
[2021-10-04] MEDS ORDERED: KETOROLAC 30 MG/ML INJ ONE (11:07)
[2021-10-04] MEDS ORDERED: HYDROMORPHONE HCL 1 MG/ML INJ ONE (12:34)
--- NOTE | 2021-10-04 12:51 | ER ---
Nurse's Notes [facility] Name: Chente Minaya Age: 51 yrs Sex: Male : 1970 Arrival Date: 10/04/2021 Time: 10:38 Bed 13 Private MD: Diagnosis: Migraine without aura, not intractable Presentation: 10/04 10:51 Chief complaint: Patient states: MELCHOR with N/V for 2 days. Coronavirus screen: Vaccine ll1 status: Patient reports being unvaccinated. Client denies travel out of the [place] in the last 14 days. At this time, the client does not indicate any symptoms associated with coronavirus-19. Ebola Screen: Patient denies travel to an Ebola-affected area in the 21 days before illness onset. Initial Sepsis Screen: Does the patient meet any 2 criteria? No. Patient's initial sepsis screen is negative. Does the patient have a suspected source of infection? Yes: S/S of meningitis or endocarditis. Risk Assessment: Do you want to hurt yourself or someone else? Patient reports no desire to harm self or others. Onset of symptoms was October 03, 2021. 10:51 Method Of Arrival: Ambulatory ll1 10:51 Acuity: GILDARDO 3 ll1 Triage Assessment: 11:20 Headache History: The patient has had previous headaches and this one is similar to jg9 previous episodes. General: Appears uncomfortable, Behavior is calm. Pain: Also complains of nausea, light and sound sensitivity. 11:20 Pain: Pain began 1 day ago. jg9 11:22 Neuro: Reports headache frontal area. jg9 Historical: - Allergies: 10:52 PENICILLINS; ll1 10:52 Tylenol-Codeine #3; ll1 10:52 Tylenol-Codeine #4; ll1 10:52 Bactrim; ll1 10:52 mushroom; ll1 10:52 Sulfa (Sulfonamide Antibiotics); ll1 10:52 surgical steel; ll1 10:52 tramadol; ll1 10:52 Reglan; ll1 - PMHx: 10:52 GERD; hiatal hernia; food bolus; Diabetes - NIDDM; Depression; Migraines; neuropathy; ll1 CHF; - PSHx: 10:52 multiple upper GI procedures; Appendectomy; ll1 - Immunization history:: Client reports having NOT received the Covid vaccine. - Social history:: Smoking status: Patient denies any tobacco usage or history of. Screenin:57 Abuse screen: Denies threats or abuse. Denies injuries from another. Nutritional jg9 screening: No deficits noted. Tuberculosis screening: No symptoms or risk factors identified. Fall Risk None identified. Assessment: 10:55 General: Appears in no apparent distress. Behavior is calm. Pain: Complains of pain in jg9 head Pain currently is 10 out of 10 on a pain scale. Vital Signs: 10:51 Weight 134.72 kg; Height 6 ft. 2 in. (187.96 cm); Pain 10/10; ll1 10:55 BP 147 / 95; Pulse 90 RA; Resp 17 S; Temp 98.4(O); Pulse Ox 97% on R/A; Weight 134.72 jg9 kg (R); Height 6 ft. 2 in. (187.96 cm) (R); 12:15 BP 154 / 102; Pulse 94; Resp 18; Pulse Ox 97% on R/A; jg9 10:55 Body Mass Index 38.13 (134.72 kg, 187.96 cm) jg9 ED Course: 10:38 Patient arrived in ED. mr 10:41 Robert Villalobos PA is PHCP. jmm 10:41 Saurav Blount MD is Attending Physician. [facility] 10:51 Arm band placed on Patient placed in an exam room, on a stretcher. ll1 10:52 Triage completed. ll1 10:55 Ginny Cristobal, RN is Primary Nurse. jg9 11:17 Inserted saline lock: 18 gauge in left antecubital area, using aseptic technique. jg9 11:22 Patient has correct armband on for positive identification. Bed in low position. Call jg9 light in reach. 11:25 Patient requests pain medication. jg9 11:42 Appears tearful. SITTING ON SIDE OF BED HOLDING HEAD ROCKING C/O NO CHANGE IN jg9 SYMPTOMS-PATIENT STATES, "I KNOW IT'S THE REGLAN THAT IS MAKING IT WORSE, IT DID THE SAME THING THE LAST TIME, I'M GOING TO HAVE TO STOP TAKING IT BECAUSE I CAN'T DO THIS". 12:57 No provider procedures requiring assistance completed. jg9 12:57 IV discontinued. jg9 Administered Medications: 11:10 Drug: NS 0.9% 500 ml Route: IV; Rate: bolus; Site: left antecubital; jg9 12:25 Follow up: IV Status: Completed infusion; IV Intake: 500ml jg9 11:10 Drug: Reglan (metoCLOPramide) 20 mg Route: IVP; Site: left antecubital; jg9 12:24 Follow up: Response: Nausea is decreased jg9 11:15 Drug: diphenhydrAMINE 25 mg Route: IVP; Site: left antecubital; jg9 12:24 Follow up: Response: No adverse reaction; No change in condition jg9 11:16 Drug: Ketorolac 30 mg Route: IVP; Site: left forearm; jg9 12:24 Follow up: Response: No adverse reaction; No change in condition jg9 12:35 Drug: Dilaudid (HYDROmorphone) 1 mg Route: IVP; Site: left antecubital; jg9 12:51 Follow up: Response: No adverse reaction; Marked relief of symptoms jg9 Intake: 12:25 IV: 500ml; Total: 500ml. jg9 Outcome: 12:50 Discharge ordered by MD. pompa 12:57 Discharged to home ambulatory. jg9 12:57 Condition: improved 12:57 Discharge instructions given to patient, Instructed on discharge instructions, follow up and referral plans. 12:57 Patient left the ED. jg9 Signatures: Robert Villalobos PA PA jmm Rivera, Mary mr Gagan Real RN RN ll1 Ginny Cristobal RN RN jg9
--- NOTE | 2021-10-04 12:51 | EDPHYS ---
Physician Documentation [facility] Name: Chente Minaya Age: 51 yrs Sex: Male : 1970 Arrival Date: 10/04/2021 Time: 10:38 Bed 13 Private MD: BRYAN Physician Saurav Blount HPI: 10/04 10:57 This 51 yrs old Male presents to ER via Ambulatory with complaints of Headache, Nausea. jmm 10:57 The patient complains of pain to the forehead, right eye and left eye. Onset: The jmm symptoms/episode began/occurred gradually. Associated signs and symptoms: Pertinent negatives: fever. Headache History: The patient has had previous headaches and this one is similar to previous episodes. The symptoms are alleviated by nothing. the symptoms are aggravated by nothing. The patient has experienced similar episodes in the past, several times. Historical: - Allergies: 10:52 PENICILLINS; ll1 10:52 Tylenol-Codeine #3; ll1 10:52 Tylenol-Codeine #4; ll1 10:52 Bactrim; ll1 10:52 mushroom; ll1 10:52 Sulfa (Sulfonamide Antibiotics); ll1 10:52 surgical steel; ll1 10:52 tramadol; ll1 10:52 Reglan; ll1 - PMHx: 10:52 GERD; hiatal hernia; food bolus; Diabetes - NIDDM; Depression; Migraines; neuropathy; ll1 CHF; - PSHx: 10:52 multiple upper GI procedures; Appendectomy; ll1 - Immunization history:: Client reports having NOT received the Covid vaccine. - Social history:: Smoking status: Patient denies any tobacco usage or history of. ROS: 10:57 Constitutional: Negative for fever, chills, and weight loss, Cardiovascular: Negative jmm for chest pain, palpitations, and edema, Respiratory: Negative for shortness of breath, cough, wheezing, and pleuritic chest pain. 10:57 Neuro: Positive for headache. 10:57 All other systems are negative. Exam: 10:57 Constitutional: This is a well developed, well nourished patient who is awake, alert, jmm and in no acute distress. Head/Face: atraumatic. Eyes: EOMI, no conjunctival erythema appreciated ENT: Moist Mucus Membranes Neck: Trachea midline, Supple Chest/axilla: Normal chest wall appearance and motion. Cardiovascular: Regular rate and rhythm. No edema appreciated Respiratory: Normal respirations, no respiratory distress appreciated Abdomen/GI: Non distended, soft Back: Normal ROM Skin: General appearance color normal MS/ Extremity: Moves all extremities, no obvious deformities appreciated, no edema noted to the lower extremities Neuro: Awake and alert, normal gait Psych: Behavior is normal, Mood is normal, Patient is cooperative and pleasant Vital Signs: 10:51 Weight 134.72 kg; Height 6 ft. 2 in. (187.96 cm); Pain 10/10; ll1 10:55 BP 147 / 95; Pulse 90 RA; Resp 17 S; Temp 98.4(O); Pulse Ox 97% on R/A; Weight 134.72 jg9 kg (R); Height 6 ft. 2 in. (187.96 cm) (R); 12:15 BP 154 / 102; Pulse 94; Resp 18; Pulse Ox 97% on R/A; jg9 10:55 Body Mass Index 38.13 (134.72 kg, 187.96 cm) 9 MDM: 10:47 Patient medically screened. [facility] 12:48 Data reviewed: vital signs, nurses notes. Counseling: I had a detailed discussion with [facility] the patient and/or guardian regarding: the historical points, exam findings, and any diagnostic results supporting the discharge/admit diagnosis, the need for outpatient follow up, to return to the emergency department if symptoms worsen or persist or if there are any questions or concerns that arise at home. Medication response:. Response to treatment: the patient's symptoms have markedly improved after treatment, and as a result, I will discharge patient. 10/04 10:52 Order name: Saline Lock; Complete Time: 11:17 [facility] Administered Medications: 11:10 Drug: NS 0.9% 500 ml Route: IV; Rate: bolus; Site: left antecubital; jg9 12:25 Follow up: IV Status: Completed infusion; IV Intake: 500ml j9 11:10 Drug: Reglan (metoCLOPramide) 20 mg Route: IVP; Site: left antecubital; jg9 12:24 Follow up: Response: Nausea is decreased 9 11:15 Drug: diphenhydrAMINE 25 mg Route: IVP; Site: left antecubital; jg9 12:24 Follow up: Response: No adverse reaction; No change in condition jg9 11:16 Drug: Ketorolac 30 mg Route: IVP; Site: left forearm; jg9 12:24 Follow up: Response: No adverse reaction; No change in condition jg9 12:35 Drug: Dilaudid (HYDROmorphone) 1 mg Route: IVP; Site: left antecubital; jg9 12:51 Follow up: Response: No adverse reaction; Marked relief of symptoms jg9 Disposition: 10/05 08:27 Co-signature as Attending Physician, Saurav Blount MD I agree with the assessment and jermaine plan of care. Disposition Summary: 10/04/21 12:50 Discharge Ordered Location: Home [facility] Condition: Stable jmm Diagnosis - Migraine without aura, not intractable jmm Followup: jmm - With: Private Physician - When: 2 - 3 days - Reason: Recheck today's complaints, Continuance of care, Re-evaluation by your physician Discharge Instructions: - Discharge Summary Sheet jm - Migraine Headache jm Forms: - Medication Reconciliation Form [facility] - Thank You Letter jmm - Antibiotic Education jmm - Prescription Opioid Use jm Signatures: Saurav Blount MD MD cha Mickail, Joel, PA PA jmm Lewis, Lynsay RN RN ll1 Ginny Cristobal RN RN jg9
[2021-10-04 13:03] VITALS: TEMP 98.4; O2SAT 97
[2021-10-04 13:04] VITALS: BP 154/102
== END 2021-10-04 12:57 | disposition home or self-care (01) ==
LOC: ER 10:35
DX: G43.009 Migraine without aura, not intractable, without status migrainosus (principal); E11.9 Type 2 diabetes mellitus without complications; Z88.0 Allergy status to penicillin; Z88.1 Allergy status to other antibiotic agents; Z88.2 Allergy status to sulfonamides; Z88.5 Allergy status to narcotic agent; Z88.8 Allergy status to other drugs, medicaments and biological substances; Z91.018 Allergy to other foods; Z91.048 Other nonmedicinal substance allergy status
CPT/HCPCS: 99283; J2765; J1200; J1170; J7040

== ENCOUNTER 2021-10-24 13:04 | Emergency (ER) | payer OTHER ==
--- OUTSIDE RECORDS SUMMARY | 2021-10-24 13:10 | XMS REPORT | Continuity of Care Document ---
:1970 Author Organization [facility] t Address [address] [place] [address] Care Team Providers Name Role Phone PCP, DOES NOT HAVE A Primary Care Physician Unavailable ANENE Attending Clinician Unavailable Luz Maria Bernal MD Attending Clinician LUZ MARIA BERNAL Attending Clinician Unavailable LUZ MARIA BERNAL Attending Clinician Unavailable Cassy Ashby Attending Clinician CASSY APPEL Attending Clinician Unavailable Doctor Unassigned, Name Attending [...] vers pain pain 2-20 ity of 00:00: [address] Branch Obesity Obesity Disease Active 2020-0 Univers (BMI (BMI 2-19 ity of 30-39.9) 30-39.9) 00:00: [address] Acute Acute Disease Active 2020-0 Univers postoperat postoperat 2-19 it y of momo momo 00:00: [place] abdominal abdominal 00 Medi kyrie pain pain [...] Quantity Comments Source Exposure to Not sure [facility] SARS-CoV-2 [place] [facility] (event) Branch Sex Assigned At [facility] [place] [facility] Tobacco use and 2020-04-24 2020-04-24 Never used Universit y of exposure 00:00:00 00:00:00 [facility] Branch Alcohol intake 2020-04-24 2020-04-24 Current drinker Unive rsity of 00:00:00 00:00:00 of alcohol [place] [facility] (finding) Branch History SDOH 2019-11-03 2019-11-03 5 University o f Financial 00:00:00 00:00:00 [facility] Branch Smoking Status Start Date Stop Date Source Former smoker 2020-04-24 00:00:00 2020-04-24 00:00:00 [facility] Medications Ordered Filled Start Stop Current Ordering Indication Dosage Frequency Signature Comments Components Source Medication Medication Date Date Medication? Clinician (SIG) Name Name divalproex 2020-0 Yes [id number] 250mg Take 1 Univers ER 250 mg 8-10 tablet by ity o f 24 hr 00:00: mouth 2 [place] tablet 00 (two) Medical times [place] daily. divalproex 2020-0 Yes [id number] 250mg Take 1 Univers ER 250 mg 8-10 tablet by ity o f 24 hr 00:00: mouth 2 [place] tablet 00 (two) Medical times [place] daily. water for 2020-0 Yes PRN, Univers irrigation 24 Starting ity o f irrigation 03:19: Angelina [place] solution 04/06/20 at Medic al 2218, [place] Until Discontinu ed, Routine, Intra-op simethicone 2019-0 Yes PRN, Univer s (GAS RELIEF 04-07 Starting ity of (SIMETHICON 03:19: Angelina [place] E)) 40 00 04/06/20 at Medical mg/0.6 mL 2218, [place] drops Until Discontinu ed, Routine, Intra-op glucagon [...] 1,000 mL 00 :00 IV Medical Infusion, [place] ONCE, 1 dose, 02/19/20 at 1800, STAT morpHINE 2020-0 2020- No 4mg 4 mg, Slow Un grabiel injection 4 02-18 IV Push, ity of mg 23:00: 22:01 ONCE, 1 [place] 00 :00 dose, Sat Medical 02/19/20 at Branch 1800, STAT insulin 2019-0 2020- No 10U 10 Units, Univ ers regular 02-18 Subcutaneo ity o f human 22:45: 21:54 us, ONCE, [place] (HUMULIN R) 00 :00 1 dose, Medic al injection 02/19/20 Bran ch 10 Units at 1745, STAT NaCl 0.9% 2020- No 1000mL at 999 Uni vers (NS) bolus 02-18 mL/hr, ity of infusion 21:45: 23:27 1,000 mL, Danie as 1,000 mL 00 :00 IV Medical Infusion, [place] ONCE, 1 dose, 02/19/20 at 1645, STAT [...] ity of dextrose 21:45: 21:21 ONCE, 1 [place] (CLEOCIN) 00 :00 dose, Sat Medic al [...] Branch 1630, MANDEEP traMADol 50 2019-0 Yes [id number] 50mg Take 1 Univers mg tablet 6-06 tablet by ity o f 00:00: mouth [place] 00 every 6 Medical (six) Branch hours as needed for Pain (scale 4-6). traMADol 50 2019-0 Yes [id number] 50mg Take 1 Univers mg tablet 6-06 tablet by ity o f 00:00: mouth [place] 00 every 6 Medical (six) Branch hours as needed for Pain (scale 4-6). traMADol 50 2019-0 Yes [id number] 50mg Take 1 Univers mg tablet 6-06 tablet by ity o f 00:00: mouth [place] 00 every 6 Medical (six) Branch hours as needed for Pain (scale 4-6). traMADol 50 2019-0 Yes [id number] 50mg Take 1 Univers mg tablet 6-06 tablet by ity o f 00:00: mouth [place] 00 every 6 Medical (six) Branch hours as needed for Pain (scale 4-6). traMADol 50 2019-0 Yes [id number] 50mg Take 1 Univers mg tablet 6-06 tablet by ity o f 00:00: mouth [place] 00 every 6 Medical (six) Branch hours as needed for Pain (scale 4-6). traMADol 50 2019-0 Yes [id number] 50mg Take 1 Univers mg tablet 6-06 tablet by ity o f 00:00: mouth [place] 00 every 6 Medical (six) Branch hours as needed for Pain (scale 4-6). clindamycin 2019-0 2020- No [id number] 450mg Take 3 Univers 150 mg 02-18 06-17 capsules ity of capsule 00:00: 04:59 by mouth 3 Danie as 00 :00 (three) Medical times Branch daily for 10 days. glipiZIDE 2019-0 Yes [id number] 10mg Take 1 Un grabiel 10 mg 2-22 tablet by ity of tablet 00:00: mouth 2 [place] 00 (two) Medical times Branch daily before breakfast and dinner. HYDROcodone 2020-0 Yes [id number] 1{tbl} Take 1 Univers -acetaminop 2-22 tablet by ity of hen 5-325 00:00: mouth [place] mg tablet 00 every 6 Medical (six) Branch hours as needed for Pain (scale 7-10). glipiZIDE 2020-0 Yes [id number] 10mg Take 1 Un grabiel 10 mg 2-22 tablet by ity of tablet 00:00: mouth 2 [place] 00 (two) Medical times Branch daily before breakfast and dinner. HYDROcodone 2020-0 Yes [id number] 1{tbl} Take 1 Univers -acetaminop 2-22 tablet by ity of hen 5-325 00:00: mouth [place] mg tablet 00 every 6 Medical (six) Branch hours as needed for Pain (scale 7-10). glipiZIDE 2020-0 Yes [id number] 10mg Take 1 Un grabiel 10 mg 2-22 tablet by ity of tablet 00:00: mouth 2 [place] 00 (two) Medical times Branch daily before breakfast and dinner. HYDROcodone 2020-0 Yes [id number] 1{tbl} Take 1 Univers -acetaminop 2-22 tablet by ity of hen 5-325 00:00: mouth [place] mg tablet 00 every 6 Medical (six) Branch hours as needed for Pain (scale 7-10). glipiZIDE 2020-0 Yes [id number] 10mg Take 1 Un grabiel 10 mg 2-22 tablet by ity of tablet 00:00: mouth 2 [place] 00 (two) Medical times Branch daily before breakfast and dinner. HYDROcodone 2020-0 Yes [id number] 1{tbl} Take 1 Univers -acetaminop 2-22 tablet by ity of hen 5-325 00:00: mouth [place] mg tablet 00 every 6 Medical (six) Branch hours as needed for Pain (scale 7-10). glipiZIDE 2020-0 Yes [id number] 10mg Take 1 Un grabiel 10 mg 2-22 tablet by ity of tablet 00:00: mouth 2 [place] 00 (two) Medical times Branch daily before breakfast and dinner. HYDROcodone 2020-0 Yes [id number] 1{tbl} Take 1 Univers -acetaminop 2-22 tablet by ity of hen 5-325 00:00: mouth [place] mg tablet 00 every 6 Medical (six) Branch hours as needed for Pain (scale 7-10). glipiZIDE 2020-0 Yes [id number] 10mg Take 1 Un grabiel 10 mg 2-22 tablet by ity of tablet 00:00: mouth 2 [place] 00 (two) Medical times Branch daily before breakfast and dinner. HYDROcodone 2020-0 Yes [id number] 1{tbl} Take 1 Univers -acetaminop 2-22 tablet by ity of hen 5-325 00:00: mouth [place] mg tablet 00 every 6 Medical (six) Branch hours as needed for Pain (scale 7-10). glipiZIDE 2020-0 Yes [id number] 10mg Take 1 Un grabiel 10 mg 2-22 tablet by ity of tablet 00:00: mouth 2 [place] 00 (two) Medical times Branch daily before breakfast and dinner. HYDROcodone 2020-0 Yes [id number] 1{tbl} Take 1 Univers -acetaminop 2-22 tablet by ity of hen 5-325 00:00: mouth [place] mg tablet 00 every 6 Medical (six) Branch hours as needed for Pain (scale 7-10). glipiZIDE 2020-0 Yes [id number] 10mg Take 1 Un grabiel 10 mg 2-22 tablet by ity of tablet 00:00: mouth 2 [place] 00 (two) Medical times Branch daily before breakfast and dinner. HYDROcodone 2020-0 Yes [id number] 1{tbl} Take 1 Univers -acetaminop 2-22 tablet by ity of hen 5-325 00:00: mouth [place] mg tablet 00 every 6 Medical (six) Branch hours as needed for Pain (scale 7-10). glipiZIDE 2020-0 Yes [id number] 10mg Take 1 Un grabiel 10 mg 2-22 tablet by ity of tablet 00:00: mouth 2 [place] 00 (two) Medical times Branch daily before breakfast and dinner. HYDROcodone 2020-0 Yes [id number] 1{tbl} Take 1 Univers -acetaminop 2-22 tablet by ity of hen 5-325 00:00: mouth [place] mg tablet 00 every 6 Medical (six) Branch hours as needed for Pain (scale 7-10). ciprofloxac 2020-0 2020- No [id number] 500mg Take 1 Univers in HCl 500 2-22 11-13 tablet by ity of mg tablet 00:00: 05:59 mouth [place] 00 :00 every 12 Medical (twelve) Branch hours for 7 days. metroNIDAZO 2019- No [id number] 500mg Take 1 Univers LE 500 mg [...] Routine insulin 2020- No 30U 30 Units, [facility] ers detemir 11-04 Subcutaneo ity o f U-100 01:30: 14:24 us, DAILY, [place] (LEVEMIR 00 :53 First dose Medic al [...] ity o f (PF)) 18:15: 17:26 Push, [place] injection 00 :00 ONCE, 1 Medical 125 [...] ity o f (PF)) 17:00: 16:06 Push, [place] injection 00 :00 ONCE, 1 Medical 100 mcg dose, Wed Branch 11/03/19 at 1100, Routine ondansetron 2019- No 4mg 4 mg, Slow Univers (ZOFRAN 11-03 IV Push, ity of (PF)) 17:00: 16:06 ONCE, 1 [place] injection 4 00 :00 dose, Wed Med ical mg 11/03/19 at Branch 1100, MANDEEP cyclobenzap 2018-09 2020- No [id number] 5mg Take 1 Univers rine 5 mg 011-06 9100 tablet by ity of tablet 00:00: 00:00 mouth 3 [place] 00 :00 (three) Medical times Branch daily. traMADol 2018-09 2020- No [id number] 50mg Take 1 Univers (ULTRAM) 50 11-06 [...] 2020-04-24 13:23:00 129 mm[Hg] Univer sity of [facility] Diastolic blood 2020-04-24 13:23:00 81 mm[Hg] Unive rsity of [facility] Heart rate 2020-04-24 13:23:00 82 /min Universi ty [facility] Body weight 2020-04-24 13:23:00 138.075 kg Universi ty [facility] BMI 2020-04-24 13:23:00 39.08 kg/m2 Universi ty [facility] Systolic blood 2020-04-24 13:23:00 129 mm[Hg] Univer sity of [facility] Diastolic blood 2020-04-24 13:23:00 81 mm[Hg] Unive rsity of [facility] Heart rate 2020-04-24 13:23:00 82 /min Universi ty [facility] Body weight 2020-04-24 13:23:00 138.075 kg Universi ty [facility] BMI 2020-04-24 13:23:00 39.08 kg/m2 Universi ty [facility] Systolic blood 2020-04-07 03:51:00 118 mm[Hg] Univer sity of [facility] Diastolic blood 2020-04-07 03:51:00 68 mm[Hg] Unive rsity of [facility] Heart rate 2020-04-07 03:51:00 92 /min Universi ty [facility] Respiratory rate 2020-04-07 03:51:00 16 /min Univ ers[facility] [place] [facility] Oxygen saturation in 2020-04-07 03:51:00 100 /min University of Arterial blood by [facility] Pulse oximetry Branch Body temperature 2020-04-07 03:40:00 36.44 Leonor Univ ersity [facility] [place] [facility] Body weight 2020-04-07 00:07:00 129.275 kg [facility]i ty [facility] [place] [facility] BMI 2020-04-07 00:07:00 36.59 kg/m2 [facility] [place] [facility] Heart rate 2020-02-19 23:10:00 105 /min [facility] [place] [facility] Respiratory rate 2020-02-19 23:10:00 29 /min Univ ersity [facility] [place] [facility] Oxygen saturation in 2020-02-19 23:10:00 94 /min University of Arterial blood by [facility] Pulse oximetry Branch Systolic blood 2020-02-19 23:00:00 127 mm[Hg] Univer sity of pressure [place] [facility] Diastolic blood 2020-02-19 23:00:00 78 mm[Hg] Unive rsity of pressure [place] [facility] Body temperature 2020-02-19 22:04:10 37.33 Leonor Univ ersity [facility] [place] [facility] Body height 2020-02-19 19:56:00 188 cm [facility]i ty [facility] [place] [facility] Body weight 2020-02-19 19:56:00 129.275 kg [facility]i [facility] [place] [facility] BMI 2020-02-19 19:56:00 36.59 kg/m2 [facility] [place] [facility] Systolic blood 2019-11-06 17:14:00 138 mm[Hg] Univer sity of pressure [place] [facility] Diastolic blood 2019-11-06 17:14:00 88 mm[Hg] Unive rsity of pressure [place] [facility] Heart rate 2019-11-06 17:14:00 102 /min Universi ty [facility] [place] [facility] Respiratory rate 2019-11-06 17:14:00 18 /min Univ ersity of [place] [facility] Oxygen saturation in 2019-11-06 17:14:00 96 /min University of Arterial blood by [facility] Pulse oximetry Branch Body temperature 2019-11-06 14:00:00 36.72 Leonor Univ ersity [facility] [place] [facility] Body height 2019-11-03 23:00:00 188 cm [facility]i [facility] [place] [facility] Body weight 2019-11-03 15:22:00 129.275 kg [facility] BMI 2019-11-03 15:22:00 36.58 kg/m2 [facility] Procedures Procedure Date / Time Performing Clinician Source Performed EGD (ENDO) 2020-04-07 02:31:21 Lisa Armendariz [facility] COMP. METABOLIC PANEL 2020-04-07 01:52:00 Yazmin Apple [facility] ([id number]) Medical Branch CBC WITH DIFF 2020-04-07 01:52:00 Yazmin Apple Cassy [place] o [facility] XR NECK SOFT TISSUE 2020-04-07 00:57:29 Yazmin Apple [facility] COVID-19 (ID NOW RAPID 2020-04-07 00:40:00 Yazmin Apple [facility] TESTING) Medical Branch NOTICE OF PRIVACY 2020-04-06 23:57:19 Doctor Unassigned, No [facility] Medical Branch CONSENT/REFUSAL FOR 2020-04-06 23:57:05 Doctor Unassigned, No Un iversity of [place] DIAGNOSIS AND TREATMENT Name Medical Branch REFERRAL- 2020-03-29 05:01:00 Doctor Unassigned, No [facility] REQUEST/RESPONSE Name Medical Branch POCT GLUCOSE 2020-02-19 23:05:00 Meggan Hernandez [facility] (AUTOMATED) Medical Branch POCT GLUCOSE 2020-02-19 21:52:00 Meggan Hernandez [facility] (AUTOMATED) Medical Branch COMP. METABOLIC PANEL 2020-02-19 20:47:00 Meggan Hernandez [facility] ([id number]) Medical Branch CBC WITH DIFFERENTIAL 2020-02-19 20:47:00 Meggan Hernandez [facility] COVID-19 (ID NOW RAPID 2020-02-19 20:47:00 Meggan Hernandez [facility] TESTING) Medical Branch NOTICE OF PRIVACY 2020-02-19 19:53:34 Doctor Unassigned, No Univ [employer] [facility] PRACTICES Name Medical Branch CONSENT/REFUSAL FOR 2020-02-19 19:53:23 Doctor Unassigned, No Un iversity of [place] DIAGNOSIS AND TREATMENT Name Medical Branch POCT GLUCOSE 2019-11-06 13:36:00 [facility] POCT GLUCOSE 2019-11-06 01:48:00 [facility] Branch POCT GLUCOSE 2019-11-05 22:16:00 Pavithra [facility] (AUTOMATED) Medical Branch POCT GLUCOSE 2019-11-05 17:26:00 Luis Mandujano [facility] (AUTOMATED) Medical Branch POCT GLUCOSE 2019-11-05 13:21:00 Pavithra [facility] (AUTOMATED) Medical Branch BASIC METABOLIC PANEL 2019-11-05 10:28:00 [facility] (NA, K, CL, CO2, Medical Branch GLUCOSE, BUN, CREATININE, CA) CBC WITH DIFFERENTIAL 2019-11-05 10:28:00 [facility] Medical Branch POCT GLUCOSE 2019-11-05 10:12:00 [facility] Branch POCT GLUCOSE 2019-11-05 06:12:00 Pavithra [facility] (AUTOMATED) Medical Branch POCT GLUCOSE 2019-11-05 01:41:00 Pavithra [facility] (AUTOMATED) Medical Branch POCT GLUCOSE 2019-11-04 22:26:00 Pavithra [facility] (AUTOMATED) Medical Branch POCT GLUCOSE 2019-11-04 17:20:00 Pavithra [facility] (AUTOMATED) Medical Branch POCT GLUCOSE 2019-11-04 13:21:00 Pavithra [facility] (AUTOMATED) Medical Branch POCT GLUCOSE 2019-11-04 11:57:00 Pavithra [facility] (AUTOMATED) Medical Branch POCT GLUCOSE 2019-11-04 05:30:00 Pavithra [facility] (AUTOMATED) Medical Branch POCT GLUCOSE 2019-11-04 02:17:00 Pavithra [facility] (AUTOMATED) Medical Branch POCT GLUCOSE 2019-11-03 23:23:00 Pavithra [facility] (AUTOMATED) Medical Branch POCT GLUCOSE 2019-11-03 21:41:00 Luis Mandujano [place] [facility] (AUTOMATED) [facility] SURGICAL PATHOLOGY EXAM 2019-11-03 20:26:00 Yonatan Lund Uni versity [facility] LAPAROSCOPIC 2019-11-03 19:24:00 Yonatan Lund [facility] APPENDECTOMY [facility] CT ABDOMEN PELVIS W 2019-11-03 17:41:22 Ervin Rhoades [facility] CONTRAST [facility] LIPASE 2019-11-03 15:35:00 Ervin [facility]oades [facility] COMP. METABOLIC PANEL 2019-11-03 15:35:00 Ervin Rhoades [facility] ([id number]) [facility] CBC WITH DIFFERENTIAL 2019-11-03 15:35:00 Ervin Rhoades [facility] GLYCOSYLATED HEMOGLOBIN 2019-11-03 15:35:00 Meggan Pichardo [facility] (A1C) [facility] URINALYSIS 2019-11-03 15:35:00 Jf [facility] Encounters Start End Encounter Admission Attending Care Care Encounter Source Date/Time Date/Time Type Type Clinicians Facility Department ID 2020-08-15 2020-08-15 Outpatient R [facility] [id number] Univers [facility] [place] [facility] 2020-08-15 [id number] Univers 10:00:00 10:00:00 SILVINA [facility] 2020-08-14 2020-08-14 Outpatient R [facility] [id number] Univers 10:40:00 10:40:00 [id number] [facility] 2020-04-24 2020-04-24 Office [facility] [id number] 08:15:37 08:49:56 Visit Norberto Ward [id number] [place] [id number] [place] [id number] nal 092 [facility] 2020-04-24 2020-04-24 Office [facility] [id number] [facility] 08:15:37 08:49:56 Visit Norberto Ward [id number] [id number] Profess[place] [id number] Mt dical nal 092 [facility] 2020-04-24 2020-04-24 Outpatient R NORBERTO BERNAL [facility] [id number] Univers 08:00:00 08:00:00 NORBERTO BERNAL ity of [facility] 2020-04-06 2020-04-06 Emergency Yazmin Apple [facility] [id number] Univers 19:12:13 22:55:00 Cassy Ward [id number] i ty of [place] [id number] [id number] [facility] 071 [place] 2020-04-06 2020-04-06 Emergency X Yazmin APPLE [facility] ERT [id number] Univers 19:12:13 19:12:13 ity of [facility] 2020-04-06 2020-04-06 Orders Doctor SNEED 1.2.840.114 [id number] Univers 00:00:00 00:00:00 Only Unassigned, MIRI [id number] ity of [place] [facility] 4.2.7.2.686 Danie as [phone] [facility] 009 [place] 2020-03-29 2020-03-29 Orders Doctor NAREN 1.2.840.114 [id number] Univers 00:00:00 00:00:00 Only Unassigned, MIRI [id number] ity of [place] [facility] [id number] [place]ie as [id number] [facility] 009 [place] 2020-02-19 2020-02-19 [facility] [id number] Univers 15:07:18 19:22:00 Meggan Ward [id number] i ty of [place] 4[place].2.686 [place] [id number] [facility] 084 [place] 2020-02-19 2020-02-19 Emergency X [facility] ERT [id number] Univers 14:53:00 14:53:00 ity of [facility] 2020-02-19 2020-02-19 Orders Doctor SNEED 1.2.840.114 [id number] Univers 00:00:00 00:00:00 Only Unassigned, MIRI [id number] ity of [place] [facility] [id number] Danie as [id number] [facility] 009 Branch 2019-11-08 2019-11-08 Transition Faraz Nicolas [id number] Univers 00:00:00 00:00:00 of Care Hortensia De Jesus [id number] ity of [id number] [id number] [facility] 403 Branch 2019-11-03 2019-11-06 Hospital Ervin Rhoades [facility] 1.2.840.1 [id number] Univers 09:25:15 12:00:00 Encounter Luis Mandujano [id number] ity of [id number] [place] [id number] [facility] 080 Branch 2019-11-03 2019-11-06 Inpatient X PAVITHRA [facility] TIMOTEO [id number] Univers 09:25:15 12:00:00 LUIS osman [facility] Results Test Description Test Time Test Comments Results Result Comments Source COMP. METABOLIC PANEL (06055) 2020-04-07 03:03:00 Test Item Value Reference Range Interpretation Comme nts NA (test code = 7385602242) 139 mmol/L 135-145 K (test code = 4320553524) 4.4 mmol/L 3.5-5 CL (test code = 0975249130) 101 mmol/L 98-108 CO2 TOTAL (test code = 6313341573) 28 mmol/L 23-31 AGAP (test code = 1285288190) 2-16 BUN (test code = 8339053459) 11 mg/dL 7-23 GLUCOSE (test code = 1307980374) 225 mg/dL 70-110 H CREATININE (test code = 0.98 mg/dL 0.6-1.25 8177780253) TOTAL BILI (test code = 0.5 mg/dL 0.1-1.5 8885680233) CALCIUM (test code = 2899958843) 9.6 mg/dL 8.6-10.6 T PROTEIN (test code = 6865531741) 8.2 g/dL 6.3-8.2 ALBUMIN (test code = 9155540614) 4.7 g/dL 3.5-5 ALK PHOS (test code = 3203414097) 75 U/L 34-122 ALTv (test code = 1742-6) 74 U/L 5-50 H AST(SGOT) (test code = 7890480998) 39 U/L 13-40 eGFR Calculation (Non- mL/min/1.73m2 Moroccan) (test code = 1216689997) eGFR Calculation ( mL/min/1.73m2 [place]oc[place]) (test code = 8190656979) KATE (test code = KATE) Association of [...] tests). Lab Interpretation (test code = Abnormal 76027-0) [facility] WITH [id number] 02:12:00 Test Item Value Reference Range Interpretation [...] (test code = 36.4 fL 38.5-51.6 L 81732-1) RDW-CV (test code = 12.5 % 12.1-15.4 788-0) PLT (test code = See_Comment [Automated 777-3) message] The sy stem which generated this result transmitted reference range : 150 - 328 10*3/ ?L. The reference r jevon was not used to interpret this result as normal/abnormal . MPV (test code = 11.5 fL 9.8-13 44099-8) NRBC/100 WBC (test See_Comment [Automat ed code = 1812729643) message] The system which generated this result transmitted reference range : 0.0 - 10.0 /100 WBCs. The refer ence range was not u sed to interpret th is result as normal/abnormal . NRBC x10^3 (test code <0.01 See_Comment [Auto mated = 5447107179) message] The s ystem which generated this result transmitted reference range : 10*3/?L. The reference range was not used to interpret this result as normal/abnormal . GRAN MAT (NEUT) % 68.0 % (test code = 770-8) IMM GRAN % (test code 0.40 % = 3416110113) LYMPH % (test code = 23.8 % 736-9) MONO % (test code = 4.7 % 5905-5) EOS % (test code = 2.7 % 713-8) BASO % (test code = 0.4 % 706-2) GRAN MAT x10^3(ANC) 5.24 10*3/uL 1.99-6.95 (test code = 9029974612) IMM GRAN x10^3 (test 0.03 10*3/uL 0-0.06 code = 9894857429) LYMPH x10^3 (test code 1.83 10*3/uL 1.09-3.23 = 731-0) MONO x10^3 (test code 0.36 10*3/uL 0.36-1.02 = 742-7) EOS x10^3 (test code = 0.21 10*3/uL 0.06-0.53 711-2) BASO x10^3 (test code 0.03 10*3/uL 0.01-0.09 = 704-7) Lab Interpretation Abnormal (test code = 88072-0) [facility]ID NOW RAPID TESTING)2020-04-07 01:40:00 Test Item Value Reference Range Interpretation Comments SARS-CoV-2 Rapid ID NOW Not Detected Not Detected (test code = 83274-9) KATE (test code = KATE) ID NOW COVID-19 Assay is an isothermal nucleic acid amplification test intended for the qualitative detection of nucleic acid from SARS-CoV-2 viral RNA in nasopharyngeal (CLINICAL APPEALS AUDITOR) specimens. It is used under Emergency Use [...] indicated. Lab Interpretation Normal (test code = 68182-2) [facility] NECK SOFT [id number] 01:06:58 FINDINGS/IMPRESSION:: Frontal and lateral radiographs of [...] spondylotic changes at C5-C6. Cervical spine is otherwiseunremarkable.[facility] GLUCOSE (AUTOMATED) 2020-02-19 23:08:00 Test Item Value Reference Range Interpretation Comments POCT GLU (test code = 3115066309) 243 mg/dL 70-110 H Lab Interpretation (test code = Abnormal 23054-5) [facility] GLUCOSE (AUTOMATED)2020-02-19 21:58:00 Test Item Value Reference Range Interpretation Comments POCT GLU (test code = 9376874689) 313 mg/dL 70-110 H Lab Interpretation (test code = Abnormal 52338-1) [facility] (ID NOW RAPID TESTING)2020-02-19 21:31:00 Test Item Value Reference Range Interpretation Comments SARS-CoV-2 Rapid ID NOW Not Detected Not Detected (test code = 70390-6) KATE (test code = KATE) ID NOW COVID-19 Assay is an isothermal nucleic acid amplification test intended for the qualitative detection of nucleic acid from SARS-CoV-2 viral RNA in nasopharyngeal (CLINICAL APPEALS AUDITOR) specimens. It is used under Emergency Use [...] indicated. Lab Interpretation Normal (test code = 46065-6) [facility] ([id number][facility]2020-02-19 21:29:00 Test Item Value Reference Range Interpretation Comments NA (test code = 134 mmol/L 135-145 L 8580123758) K (test code = 4.1 mmol/L 3.5-5 6160390914) CL (test code = 99 mmol/L 98-108 8171956048) CO2 TOTAL (test code = 27 mmol/L 23-31 3617812193) AGAP (test code = 2-16 2279733386) BUN (test code = 10 mg/dL 7-23 9765529551) GLUCOSE (test code = 372 mg/dL 70-110 H 1374890742) CREATININE (test code = 0.96 mg/dL 0.6-1.25 5654574541) TOTAL BILI (test code = 0.4 mg/dL 0.1-1.6 4157572264) CALCIUM (test code = 9.2 mg/dL 8.6-10.6 9762594633) T PROTEIN (test code = 7.5 g/dL 6.3-8.2 6993767114) ALBUMIN (test code = 4.5 g/dL 3.5-5 8635292802) ALK PHOS (test code = 86 U/L 34-122 0611020463) ALTv (test code = 48 U/L 5-50 1742-6) AST(SGOT) (test code = 27 U/L 13-40 1364871605) eGFR Calculation mL/min/1.73m2 (Non-) (test code = 1857758100) eGFR Calculation mL/min/1.73m2 () (test code = 3317265900) KATE (test code = KATE) Association of [...] tests). Lab Interpretation Abnormal (test code = 95812-4) [facility] WITH [id number] 21:06:00 Test Item Value Reference Range Interpretation Comments WBC (test code = See_Comment [Automated 2701-2) message] The sy stem which generated this result transmitted reference range : 4.20 - 10.70 10*3/?L. The reference range was not used to interpret this result as normal/abnormal . RBC (test code = See_Comment H [Automated 269-8) message] The sy stem which generated this [...] (test code = 36.3 fL 38.5-51.6 L 54753-4) RDW-CV (test code = 12.9 % 12.1-15.4 788-0) PLT (test code = See_Comment [Automated 777-3) message] The sy stem which generated this result transmitted reference range : 150 - 328 10*3/ ?L. The reference r jevon was not used to interpret this result as normal/abnormal . MPV (test code = 11.3 fL 9.8-13 45992-9) NRBC/100 WBC (test See_Comment [Automat ed code = 3468337376) message] The system which generated this result transmitted reference range : 0.0 - 10.0 /100 WBCs. The refer ence range was not u sed to interpret th is result as normal/abnormal . NRBC x10^3 (test code <0.01 See_Comment [Auto mated = 9451405301) message] The s ystem which generated this result transmitted reference range : 10*3/?L. The reference range was not used to interpret this result as normal/abnormal . GRAN MAT (NEUT) % 79.8 % (test code = 770-8) IMM GRAN % (test code 0.50 % = 6288663653) LYMPH % (test code = 13.4 % 736-9) MONO % (test code = 4.2 % 5905-5) EOS % (test code = 1.8 % 713-8) BASO % (test code = 0.3 % 706-2) GRAN MAT x10^3(ANC) 8.49 10*3/uL 1.99-6.95 H (test code = 9852963297) IMM GRAN x10^3 (test 0.05 10*3/uL 0-0.06 code = 4915301396) LYMPH x10^3 (test code 1.42 10*3/uL 1.09-3.23 = 731-0) MONO x10^3 (test code 0.45 10*3/uL 0.36-1.02 = 742-7) EOS x10^3 (test code = 0.19 10*3/uL 0.06-0.53 711-2) BASO x10^3 (test code 0.03 10*3/uL 0.01-0.09 = 704-7) Lab Interpretation Abnormal (test code = 69602-6) [facility] GLUCOSE (AUTOMATED)2019-11-06 13:38:00 Test Item Value Reference Range Interpretation Comments POCT GLU (test code = 0997057886) 116 mg/dL 70-110 H Lab Interpretation (test code = Abnormal 77499-7) [facility] GLUCOSE (AUTOMATED)2019-11-06 12:29:00 Test Item Value Reference Range Interpretation Comments POCT GLU (test code = 9082501295) 322 mg/dL 70-110 H Lab Interpretation (test code = Abnormal 45556-5) [facility] GLUCOSE (AUTOMATED)2019-11-06 12:29:00 Test Item Value Reference Range Interpretation Comments POCT GLU (test code = 5627808214) 230 mg/dL 70-110 H Lab Interpretation (test code = Abnormal 30686-7) [facility] GLUCOSE (AUTOMATED)2019-11-06 02:00:00 Test Item Value Reference Range Interpretation Comments POCT GLU (test code = 155 mg/dL 70-110 H Notifi ed Provider [id number]) Lab Interpretation (test Abnormal code = 18254-9) [facility] [id number] 00:02:00 Test Item Value Reference Range Interpretation Comments Case Report (test code Surgical Pathology ? ? = [id number]) ?Case: [id number] ? Authorizing Provider: ?Yonatan Lund MD ? ? ? Collected: ? 11/03/2019 1426 ?Ordering Location: ? ? [facility] ? ? ?Received: ?11/03/2019 1555 ? [facility] ?Pathologist: ? Klaus Tinoco MD ? Specimen: ? ?APPENDIX, appendix ? Final Diagnosis (test s8tbhRYpVSWtz2lvHXSvaQ code = 5031795787) FuZzEwMzNcZnRuYmpcdWMx OGqbqhHwGMjie3EmN2VqGa AwMFxhbnNpXGRlZmxhbmcx GDVpMPB3jtIjYYMmYQccUI YcJQucQc1elQRpjSwvXbIx LYYly6jabbMIambkbQw1t4 xfTSKpWqA1sQAsGEpzX6bj gpIfmPCvIKHgLHy2bJ40SL CvgV0tePCwYNgeycVaISpe uiIsrxTiGbg5YXPtC9oqLH ClDTTdQ0LzIL4zWMGcIig5 OGH7LWL4cGiis8C2tVQqiT LqvGecJxNvTmVrXSRXt2Bn RSj2qJyrT0EmMRGhUlV4bT QgUGFyYWdyYXBoIEZvbnQ7 lK11UQsqzfP9aHVyk4Wht8 9fq045tR9qcFNdLHI4SPPf PPYtqZBnFKWkMWE6SCRquG XrP4jpBRnfBU5invooCXY5 MFxtYXJndDcyMFxtYXJnYj NzxNJfKWKfvOncWEwpc324 IAH6UfZpYG4bJ3Hqh0A4iN 9maXRcZGVmdGFiNzIwXGZv ip1zsQPjLEpbw1BwZCK8fc A8vNMfnKVoSWFyKZ98Zhzk i5MdYrcaCLF2TERftgOjp3 Rwq3hlMfPydkZvS8gcS8Sc ZHJoZWFkXHBnYnJkcmZvb3 Vkc3TzbCPddId1r4hjVXAy SYMwcYamv9tfQCR3IOSvY6 Q0tUVvm2agNEzmUGFraKF4 thJxTCFugIWpH6GwjD4yOM atLS8ohht2b3grDdDoYE7w wjzmd3axKIcxQLEcWWS4Yy WhUEUsf3EiyuigTmYyp4Np oBJiMVitR07aw368DGZimn OlT7girHMdudoutKHozbwa MFxmczIwXHFsXHBsYWluXG GtRBOoDgBnuKbnzB3gKaNx ZnMyMFxwYXJccGFyZFxwbG FpblxmMFxmczIwXHBsYWlu ODGiDWMjGmOrEI3gJLVIXE 1ZXVgnVZJNMQDJOKQGFD3X WTpccGFyXHFsXHBsYWluXG JdTUQoPnImbAozuX1mOrOj QnJwSVDkCIRnKZ6wOYLBED IdOVNPEG1WDRFVFRqEEXcO KUorLOLLUM7PVGPJIaWOX9 lUSVNccGFyXHBhciBNYXR0 mZQ6KZVhvGHbVGDKJJpnEF WniWxvpH3yKeYsYgOlVsae EF1cIBGpY2detSPqXRXsRL UeL0irZcDpeK9oiTuiLEun ZjFcZnMyMiBIYXJzaHdhcm XtRO3fWLtep0UfIQQKKRQq Lq6pGF8qRILgFJR9FpIlLK BNXHBsYWluXGYxXGZzMjBc oPQxvNwufmIxDPnvf7IfD4 YyMjAwMFxhbnNpXGRlZmxh djiuASLnPXS9zmIxWLWdOB ibCXUhJTlzDr4nvPUltIbf QaEuSXTiy5dgptCUOSqpPj NvS156AJXhBZzqw4evx6Iv ZSDepUEvf3C1EIICdysehZ z2c6blVxLaQbN7pJUqISoc K0gwmyUoaYKsA8RreOKzxW h8dFuqA34bh0W2YjroR1rg BTGgDZGgX3AkIV3aJHUsGb a4CYY0BRQ6IXJfPNWxT3Cg ZZ3zPFBcpVCxBSb8z4gycP wfLWZoGYQ8o1rxJRtdrdD6 LO6eza2opQo8f3nhbsNaAB KhLZDhjDTVCINrE9FfeDar Su9qyKz0zOleIrauDFI6Uj g1UV9kls74tcx4wMcaCDRj ssorExW6MAwpNXIbmyejTN x9VIwmXJLvgWR9BQHjoSVz Q7JuOFDmHM5iddh4WEB5OB ajNDIbKlG8FBDybNAoRUGm mHffUJbzq174XDS3XtLjVN 9tT9Rgu7Z2rG8xyFXlXSJl iEXfEhHgFSPxgu4qeNCmYZ bco0GkSHS2mzM9uREljENf EOJrSK37Nkxav3BiGlztYA F0GEUgdwNri4Uhc7znGqBb ycVyW7quA3FiGSEzMCGjHE VxNiUlatXmf9Rjl6CpoXJw uFp7q6oqMRIdXPMbmDpsc8 qmMRT4TGDpE3K0cCPqb0hz HQapSEZnaLL3bbZ1EGMoyW CyD2OzwF0oFINsSX9jsrg2 c2pzMXO9PGprDIOlOrF3su N0NFDbwPJySFYbnDmbCPmx c283HEK1IgZeSECnv0UlO5 KhpZjbP32cgDwxA45xQAJn bQifiB4zcKpvnR9bSqFwZp MyNFxxbFxwbGFpblxmMVxm czIwXGxhbmcxMDMzXGhpY2 oyOoWaJODxaVbtOFuac9Ca XGYxXGNmMlxmczIwXHBhci COJCwngpGyuOBfm26wECzz eSByZXZpZXdlZCBhbGwgc3 VpN9reJO4pJ6SdjMYluyCe yzTpHBhnYKJdh5c7lYQtrF dfz5VtwSIrQN50vjFcETZx DPE6GGDkn1txRR69ttehDv ZxqJ02elPdovFgHTTvr5tb U7kzlGJib7Icu2ZfnzJhZA ckj3TsHJ9kzWWpinierDJ8 BVHplLVctcKbthN1jSdjGS UdsZ8moL5guSrtzM0nEfIn DnBxHAvzOS4yFUOgX7lckW EeNXMlKXSxY3axTlMpsQ5k lPtnNbadntQ1KIIuqk19 Clinical Information Acute abdomen (test code = 5369811930) Gross Description (test g1vorOEqHJHnrEDhWvRgJZ code = 2426256554) OaLVZhf2puZDEcmLPfViLo MzNcZnRuYmpcdWMxXGRlZm Zyq8ayc365tFHbb1dzTEXw AyF7iUZwFDZjmBJiN124NL CiOUkzs6pnt6TtLKZhaHMc t3D0ZIQQagvhrDz3gRtuE0 8as9R9UrceY6ywZABlXTva TTUeAPpbqGWpLWH4HYZySL S1YLzcmzGowrJ9ODaxxRZh SfC2HSn9l1fofIxhDAVzIP X3f5qxDAptdyFvZY6dgi2f qDg8u7zpewSmAIFuKYCkpA CLFXMsF8NlnHjhSf4urGd6 pSmfChfoOKU2Pyw3IN5wvt 67uve3hFnvXIAovqpgSdM2 UVmcUGAjholcDVh1ISicJL QqwAXhBVNwoQOtA5FuPDwf QG5nhwi0JxPxMD0gjzqqXI uaBDGoEIJ2YiUgHNRtl4Ct jzgnIpNwqk6lxw83IOA8a8 HmpTxgREK0QZS9XdBhIz7f wYMmHSWrQG1rOpXqnWIlHL Iwjc09lOeyIXzzvjIfcK2o AvXcDQMsaOZfOGMtTK7kfY NyRAZtpF0rvzfyPLYzPbRq fzbwEBMflLoctqCwQi0yhI cyYDX2FRwfL0cgbJ3lKyG0 JRmoU4lbwZ8sCCa6RNsklL V2JVEesP5wYE5qmmnly6fn NOM2ZVrbTTWktpC5ygAcTR JumUKsI0MxbN42PpTncSYg D6HfwB4cFZdxWQEeqyw9Iq LaJx6ozCDvfCE8ZFckZybo YWdlXHBnbmNvbnRccGduZG VjXHBsYWluXHBsYWluXGYw WXNbRuJhe3LdMFVky0rkSi Mmu4upxZx6XTrshSfimCTg blxmMFxmczIwXHBsYWluXG JcPPUjOqSbC0UeJ0voKQ4p QSBpcyByZWNlaXZlZCBpbi Ldk0ZqBPnmgxIlAUPwkIap LCN0gAGaZTRnBMWeCBUaLL 50XHBsYWluXGYxXGZzMjBc nAsgLBvzWOv9ZbkywINmos xmMVxmczIwIHMgbmFtZSwg VUggbnVtYmVyICJhcHBlbm RpeFxwbGFpblxmMVxmczIw ZHX7PqYjCYukVHRagIsozH 1fVrHqFtHzKPFdHH6lCREj ncLfs7CrLO5rXHDfiTautw 06VS3rxgJbeOcgr0OoVIBu vHMvFXb5PRn7QjzbO19vnI 8mgYBrO7SoCWayHY89HEOr OCBjbSBpbiBkaWFtZXRlci ppo1k7yBVnnBUgL5bzLET5 KRqpz0ujgQ0zwSmzyXKnXR Dcw4X8bJWvIJCuTJGnVUTb NR3cpUthGNBeMAG5OHLvTS K4YSJcYUGuhUepBUQCkDYv MGAnYZ7ufRxtj1Xpm1KkCT qhc9GnYDOdwuX9oZUuDJP6 aSKezMQoAKOnriUsbLQ5aQ VudCBleHVkYXRlLiBUaGUg WJWlAB3suRtkeFQhs1AtbN RqtFhnh2MygFgfgvPzFIFy IHJldmVhbCBhIHBhdGVudC KdwC7eaxvvbzMyE9iyVbUm jh7rIUYfiiGrpO25PRKaUA TmMjNpvPdxO47yjNOhpcpj DmRmJ9KqtARvPJ1nnsPwOM dlLiAgVGhlIHdhbGwgdGhp P4orRWHyODFcbnwxizJrep 9vPNLxJU5tQqKsG50cXGWf cnVwdHVyZSBzaXRlIGlzIG ocw7XokOhvrHPtylYcOslp VUmxBL3zCOCaLTZeg25flQ etXS56N55lMGedkdDwMAF9 jK6dHT0fqvixrk6nFwYdfq YiCT62IBOtsoQyx6ChqPfq vmEit2oxS1yfnA9vpNMvKN Njtq5ikyJiVWI0lB8ugqqv fYtaFQHvjKJclN2cOLYhda VjCRK1aP2uIA0mxkhcuoQg bmQgZGlzdGFsIHRpcCBhcm Liy9LjmZq6gLSiFHejIOXq LUEyLlxwYXJccGFyZFxwbG FpblxmMFxmczIwXHBsYWlu XGYxXGZzMjAgSnVsaWUgTW UHtCurpaN5OMLKSXfbPFQ8 Embedded Images (test code = 9190857714) [facility] GLUCOSE (AUTOMATED)2019-11-05 22:19:00 Test Item Value Reference Range Interpretation Comments POCT GLU (test code = 1827697439) 115 mg/dL 70-110 H Lab Interpretation (test code = Abnormal 43284-1) [facility] GLUCOSE (AUTOMATED)2019-11-05 18:23:00 Test Item Value Reference Range Interpretation Comments POCT GLU (test code = 5275249246) 197 mg/dL 70-110 H Lab Interpretation (test code = Abnormal 21995-9) [facility] GLUCOSE (AUTOMATED)2019-11-05 17:33:00 Test Item Value Reference Range Interpretation Comments POCT GLU (test code = 0671929563) 125 mg/dL 70-110 H Lab Interpretation (test code = Abnormal 52989-8) [facility] GLUCOSE (AUTOMATED)2019-11-05 13:28:00 Test Item Value Reference Range Interpretation Comments POCT GLU (test code = 1012399153) 130 mg/dL 70-110 H Lab Interpretation (test code = Abnormal 53770-0) [facility] METABOLIC PANEL (NA, K, CL, CO2, GLUCOSE, BUN, CREATININE, CA)2019-11-05 12:11:00 Test Item Value Reference Range Interpretation Comments NA (test code = 137 mmol/L 135-145 6717327749) K (test code = 3.6 mmol/L 3.5-5 1784272254) CL (test code = 100 mmol/L 98-108 9547914103) CO2 TOTAL (test code = 30 mmol/L 23-31 6788794620) AGAP (test code = 2-16 2601084289) BUN (test code = 14 mg/dL 7-23 4510038036) GLUCOSE (test code = 164 mg/dL 70-110 H 6194953283) CREATININE (test code = 0.81 mg/dL 0.6-1.25 5475112194) CALCIUM (test code = 8.6 mg/dL 8.6-10.6 6882645671) eGFR Calculation mL/min/1.73m2 (Non-) (test code = 8954299882) eGFR Calculation mL/min/1.73m2 () (test code = 6464979617) KATE (test code = KATE) Association of [...] tests). Lab Interpretation Abnormal (test code = 01386-6) [facility] WITH [id number] 11:39:00 Test Item Value Reference Range Interpretation Comments WBC (test code = See_Comment [Automated 0241-2) message] The sy stem which generated this result transmitted reference range : 4.20 - 10.70 10*3/?L. The reference range was not used to interpret this result as normal/abnormal . RBC (test code = See_Comment [Automated 568-6) message] The sy stem which generated this result transmitted reference range : 4.26 - 5.52 10*6/?L. The reference range was not used to interpret this result as normal/abnormal . HGB (test code = 14.2 g/dL 12.2-16.4 198-7) HCT (test code = 42.9 % 38.4-49.3 4544-3) MCV (test code = 82.3 fL 81.7-95.6 787-2) MCH (test code = 27.3 pg 26.1-32.7 785-6) MCHC (test code = 33.1 g/dL 31.2-35 786-4) RDW-SD (test code = 38.7 fL 38.5-51.6 77406-1) RDW-CV (test code = 13.0 % 12.1-15.4 788-0) PLT (test code = See_Comment [Automated 777-3) message] The sy stem which generated this result transmitted reference range : 150 - 328 10*3/ ?L. The reference r jevon was not used to interpret this result as normal/abnormal . MPV (test code = 11.5 fL 9.8-13 69176-8) NRBC/100 WBC (test See_Comment [Automat ed code = 8620407652) message] The system which generated this result transmitted reference range : 0.0 - 10.0 /100 WBCs. The refer ence range was not u sed to interpret th is result as normal/abnormal . NRBC x10^3 (test code <0.01 See_Comment [Auto mated = 3843052686) message] The s ystem which generated this result transmitted reference range : 10*3/?L. The reference range was not used to interpret this result as normal/abnormal . GRAN MAT (NEUT) % 83.5 % (test code = 770-8) IMM GRAN % (test code 0.30 % = 9696730335) LYMPH % (test code = 9.3 % 736-9) MONO % (test code = 5.7 % 5905-5) EOS % (test code = 1.1 % 713-8) BASO % (test code = 0.1 % 706-2) GRAN MAT x10^3(ANC) 7.74 10*3/uL 1.99-6.95 H (test code = 4493210415) IMM GRAN x10^3 (test 0.03 10*3/uL 0-0.06 code = 6347351153) LYMPH x10^3 (test code 0.86 10*3/uL 1.09-3.23 L = 731-0) MONO x10^3 (test code 0.53 10*3/uL 0.36-1.02 = 742-7) EOS x10^3 (test code = 0.10 10*3/uL 0.06-0.53 711-2) BASO x10^3 (test code <0.03 0.01-0.09 = 704-7) Lab Interpretation Abnormal (test code = 28621-3) [facility] GLUCOSE (AUTOMATED)2019-11-05 10:22:00 Test Item Value Reference Range Interpretation Comments POCT GLU (test code = 4409979129) 149 mg/dL 70-110 H Lab Interpretation (test code = Abnormal 40114-7) [facility] GLUCOSE (AUTOMATED)2019-11-05 06:15:00 Test Item Value Reference Range Interpretation Comments POCT GLU (test code = 1279673361) 204 mg/dL 70-110 H Lab Interpretation (test code = Abnormal 29649-7) [facility] GLUCOSE (AUTOMATED)2019-11-05 01:48:00 Test Item Value Reference Range Interpretation Comments POCT GLU (test code = 6767883441) 227 mg/dL 70-110 H Lab Interpretation (test code = Abnormal 98805-9) [facility] GLUCOSE (AUTOMATED)2019-11-04 22:30:00 Test Item Value Reference Range Interpretation Comments POCT GLU (test code = 7806985371) 132 mg/dL 70-110 H Lab Interpretation (test code = Abnormal 46954-5) [facility] GLUCOSE (AUTOMATED)2019-11-04 17:24:00 Test Item Value Reference Range Interpretation Comments POCT GLU (test code = 7584193962) 213 mg/dL 70-110 H Lab Interpretation (test code = Abnormal 40224-5) [facility] GLUCOSE (AUTOMATED)2019-11-04 13:31:00 Test Item Value Reference Range Interpretation Comments POCT GLU (test code = 4326503795) 203 mg/dL 70-110 H Lab Interpretation (test code = Abnormal 21672-7) [facility] GLUCOSE (AUTOMATED)2019-11-04 12:03:00 Test Item Value Reference Range Interpretation Comments POCT GLU (test code = 7999424116) 213 mg/dL 70-110 H Lab Interpretation (test code = Abnormal 44632-4) [facility]A1C)2019-11-03 23:50:00 Test Item [...] Indicated Lab Interpretation Abnormal (test code = 35155-9) [facility]2019-11-03 23:28:00 Test Item Value Reference Range Interpretation Comments POCT GLU (test code = 4632231475) 273 mg/dL 70-110 H Lab Interpretation (test code = Abnormal 99515-2) [facility] PELVIS W [id number] 18:01:52CT Abdomen and Pelvis with intravenous contrast. [...] Rhoades in the emergency room at 12:00. [facility], Radiant Results Inft User - 11/03/2019 12:02 [...] Dr. Rhoades in the emergency room at 12:00.[facility]2020-[facility]-19 16:23:00 Test Item Value Reference Range Interpretation Comments APPEARANCE (test code = Clear Clear 9875886190) COLOR (test code = Yellow Yellow 3236274369) PH (test code = 4.8-8.0 9310207005) SP GRAVITY (test code = 1.003-1.030 7311469818) GLU U QUAL (test code = 500 mg/dL Normal A 9015804960) BLOOD (test code = Negative Negative 4415031637) KETONES (test code = Negative Negative 4041185614) PROTEIN (test code = Negative Negative 2887-8) UROBILIN (test code = Normal Normal 9475600039) BILIRUBIN (test code = Negative Negative 7454701042) NITRITE (test code = Negative Negative 2666449553) LEUK BIANCA (test code = Negative Negative 6379832806) RBC/HPF (test code = See_Comment [Autom ated message] 5921069530) The system [employer] generated this result transmit yelena reference range : 0 - 3 HPF. The refe rence range was not u sed to interpret th is result as normal/abnormal . WBC/HPF (test code = See_Comment [Autom ated message] 6354284416) The system [employer] generated this result transmit yelena reference range : 0 - 5 HPF. The refe rence range was not u sed to interpret th is result as normal/abnormal . BACTERIA (test code = Negative Negative 1018608795) MUCOUS (test code = Slight Negative LPF A 1895382104) SQ EPITH (test code = <1 HPF 3418480176) Lab Interpretation (test Abnormal code = 61921-5) [facility]. METABOLIC PANEL (91048)2019-11-03 16:04:00 Test Item Value Reference Range Interpretation Comments NA (test code = 137 mmol/L 135-145 4392248869) K (test code = 4.3 mmol/L 3.5-5 7008619673) CL (test code = 98 mmol/L 98-108 5101252714) CO2 TOTAL (test code = 28 mmol/L 23-31 1170610516) AGAP (test code = 2-16 7269078169) BUN (test code = 11 mg/dL 7-23 5345916185) GLUCOSE (test code = 356 mg/dL 70-110 H 0601855955) CREATININE (test code = 1.01 mg/dL 0.6-1.25 5608332127) TOTAL BILI (test code = 0.9 mg/dL 0.1-1.5 9365171981) CALCIUM (test code = 9.1 mg/dL 8.6-10.6 5203170312) T PROTEIN (test code = 7.5 g/dL 6.3-8.2 6461287093) ALBUMIN (test code = 4.7 g/dL 3.5-5 4350947729) ALK PHOS (test code = 73 U/L 34-122 5946112409) ALTv (test code = 38 U/L 5-50 1742-6) AST(SGOT) (test code = 25 U/L 13-40 9786046046) eGFR Calculation mL/min/1.73m2 (Non-) (test code = 9776377273) eGFR Calculation mL/min/1.73m2 () (test code = 0109671741) KATE (test code = KATE) Association of [...] tests). Lab Interpretation Abnormal (test code = 24241-0) [facility] 16:03:00 Test Item Value Reference Range Interpretation Comments LIPASE (test code = 8677258520) 48 U/L 0-220 Lab Interpretation (test code = Normal 72036-3) [facility] WITH [id number] 15:51:00 Test Item Value Reference Range Interpretation [...] (test code = 37.8 fL 38.5-51.6 L 22046-8) RDW-CV (test code = 12.7 % 12.1-15.4 788-0) PLT (test code = See_Comment [Automated 777-3) message] The system which generated this result transmit yelena reference range : 150 - 328 10*3/ ?L. The reference range was not u sed to interpret th is result as normal/abnormal . MPV (test code = 10.9 fL 9.8-13 70194-1) NRBC/100 WBC (test See_Comment [Automat ed code = [id number]) message] The system which generated this result transmit yelena reference range : 0.0 - 10.0 /100 WBCs. The reference range was not used to interpret this result as normal/abnormal . NRBC x10^3 (test code <0.01 See_Comment [Auto mated = [id number]) message] The system which generated this result transmit yelena reference range : 10*3/?L. The reference range was not used to interpret this result as normal/abnormal . GRAN MAT (NEUT) % 91.5 % (test code = 770-8) IMM GRAN % (test code 0.50 % = [id number]) LYMPH % (test code = 3.9 % 736-9) MONO % (test code = 3.8 % 5905-5) EOS % (test code = 0.1 % 713-8) BASO % (test code = 0.2 % 706-2) GRAN MAT x10^3(ANC) 12.89 10*3/uL 1.99-6.95 H (test code = [id number]) IMM GRAN x10^3 (test 0.07 10*3/uL 0-0.06 H code = [id number]) LYMPH x10^3 (test code 0.55 10*3/uL 1.09-3.23 L = 731-0) MONO x10^3 (test code 0.54 10*3/uL 0.36-1.02 = 742-7) EOS x10^3 (test code = <0.03 0.06-0.53 L 711-2) BASO x10^3 (test code 0.03 10*3/uL 0.01-0.09 = 704-7) Lab Interpretation Abnormal (test code = 81873-6) [facility]"
--- NOTE | 2021-10-24 14:03 | RAD REPORT ---
EXAM DESCRIPTION: CT - CTHCSPWOC - 10/24/2021 1:44 pm CLINICAL HISTORY: PAIN, headache, nosebleeds, neck and COMPARISON: Neck Angio dated 02/18/2021; [id number] dated 05/21/2009 TECHNIQUE: Axial 5 mm thick images of the head were obtained. Axial 2 mm thick images of the cervic al spine were obtained with sagittal and coronal reconstruction images generated and reviewed. All CT scans are performed using dose optimization technique as appropriate and may include automated exposure control or mA/KV adjustment according to patient size. FINDINGS: No intracranial hemorrhage, mass, edema or acute intracranial finding. No suspicion for ac sarabjit infarction. No extra-axial fluid collections. Mastoid air cells and paranasal sinuses are clear. No suspicious findings in the nasal passages are nasopharynx. No globe or orbit abnormality seen. Cervical body height and alignment are normal. C5-6 and C6-7 disc space narrowing seen with endplate spurring. Mild bilateral bony foraminal encroachment at C5-6 and left C6-7. More pronounced right C6- 7 foraminal stenosis from uncovertebral joint hypertrophy. No fracture or acute bony abnormality. Ce ntral canal detail is inherently limited. No paraspinal mass or hematoma. IMPRESSION: Negative CT head examination for acute or significant finding. Negative CT cervical spine examination for acute or significant finding. Degenerative changes are pr esent as detailed.
[2021-10-24 14:44] LABS: Absolute Lymphocytes (CBC) 1.5 K/uL (0.7-4.9); Hematocrit 49.9 % (39.6-49.0); Lymphocytes % 19.8 % (15.3-44.8); MPV 9.4 fL (7.6-11.3); RBC Red Blood Cell Count 6.09 M/uL (4.33-5.43)
[2021-10-24 15:09] LABS: Potassium 3.8 mmol/L (3.5-5.1)
[2021-10-24] MEDS ORDERED: INSULIN -REGULAR HUMAN 50 UNIT/0.5 ML ML ONE (15:37)
[2021-10-24] MEDS ORDERED: NA CHLORIDE 0.9% 1,000 ML ONE (15:38)
--- NOTE | 2021-10-24 15:58 | EDPHYS ---
Physician Documentation [facility] Name: Chente Minaya Age: 51 yrs Sex: Male : 1970 Arrival Date: 10/24/2021 Time: 13:06 Bed 16 Private MD: ED Physician Saurav Blount HPI: 10/24 15:55 This 51 yrs old Male presents to ER via Ambulatory with complaints of Fall Injury, kb Headache. 15:55 Details of fall: The patient fell from an upright position, while running. Onset: The kb symptoms/episode began/occurred this morning. Associated injuries: The patient sustained injury to the head, pain. Severity of symptoms: At their worst the symptoms were moderate, in the emergency department the symptoms are unchanged. The patient has not experienced similar symptoms in the past. The patient has not recently seen a physician. Pt states he had a nosebleed this morning around 0530 and fell while running to the restroom. Reports he passed out and daughter woke him up around 0600. . Historical: - Allergies: 13:23 Bactrim; ab2 13:23 mushroom; ab2 13:23 PENICILLINS; ab2 13:23 Reglan; ab2 13:23 Sulfa (Sulfonamide Antibiotics); ab2 13:23 surgical steel; ab2 13:23 tramadol; ab2 13:23 Tylenol-Codeine #3; ab2 13:23 Tylenol-Codeine #4; ab2 - Home Meds: 13:23 anastrozole Oral [Active]; betablocker [Active]; carvedilol Oral [Active]; Esgic Oral ab2 [Active]; Fioricet Oral [Active]; levemir [Active]; Levemir FlexTouch U-100 Insulin 30 units subcutaneous twice a day [Active]; losartan 50 mg Oral tab 1 tab once daily [Active]; losartan Oral [Active]; ondansetron HCl 4 mg Oral tab [Active]; propranolol 40 mg Oral tab 1 tab 2 times per day [Active]; Propranolol Oral [Active]; testosterone [Active]; Testosterpme injection Weekly [Active]; unknown BP med [Active]; - PMHx: 13:23 CHF; Depression; Diabetes - NIDDM; food bolus; GERD; hiatal hernia; Migraines; ab2 neuropathy; - PSHx: 13:23 multiple upper GI procedures; Appendectomy; ab2 - Immunization history:: Client reports having NOT received the Covid vaccine. - Social history:: Smoking status: Patient denies any tobacco usage or history of. - Immunization history: Last tetanus immunization: - up to date. ROS: 15:55 Constitutional: Negative for fever, chills, and weight loss. kb 15:55 ENT: Positive for nose bleed. 15:55 Neuro: Positive for loss of consciousness. 15:55 All other systems are negative. Exam: 15:55 Constitutional: This is a well developed, well nourished patient who is awake, alert, kb and in no acute distress. Head/Face: Normocephalic, atraumatic. ENT: Moist Mucous membranes Cardiovascular: Regular rate and rhythm with a normal S1 and S2. No gallops, murmurs, or rubs. No pulse deficits. Respiratory: Respirations even and unlabored. No increased work of breathing. Talking in full sentences Skin: Warm, dry with normal turgor. Normal color. MS/ Extremity: Pulses equal, no cyanosis. Neurovascular intact. Full, normal range of motion. Neuro: Awake and alert, GCS 15, oriented to person, place, time, and situation. Moves all extremities. Normal gait. Psych: Awake, alert, with orientation to person, place and time. Behavior, mood, and affect are within normal limits. Vital Signs: 13:21 BP 137 / 81; Pulse 99; Resp 18; Temp 98.4; Pulse Ox 99% ; Weight 133.81 kg; Height 6 ab2 ft. 2 in. (187.96 cm); Pain 7/10; 14:45 BP 119 / 73 Supine; Pulse 101 RA; ap3 14:50 BP 128 / 90 Sitting; Pulse 92 RA; ap3 14:55 BP 137 / 90 Standing; Pulse 90; ap3 13:21 Body Mass Index 37.88 (133.81 kg, 187.96 cm) ab2 Carol Coma Score: 13:29 Eye Response: spontaneous(4). Verbal Response: oriented(5). Motor Response: obeys ap3 commands(6). Total: 15. Trauma Score (Adult): 13:29 Eye Response: spontaneous(1); Verbal Response: oriented(1); Motor Response: obeys ap3 commands(2); Systolic BP: > 89 mm Hg(4); Respiratory Rate: 10 to 29 per min(4); Liberty Score: 15; Trauma Score: 12 MDM: 13:28 Patient medically screened. kb 15:52 Data reviewed: vital signs, nurses notes. Data interpreted: Pulse oximetry: on room air kb is 99 %. Interpretation: normal. Counseling: I had a detailed discussion with the patient and/or guardian regarding: the historical points, exam findings, and any diagnostic results supporting the discharge/admit diagnosis, lab results, radiology results, the need for outpatient follow up, an ENT specialist, to return to the emergency department if symptoms worsen or persist or if there are any questions or concerns that arise at home. 10/24 13:37 Order name: CBC with Diff kb 10/24 13:37 Order name: Basic Metabolic Panel kb 10/24 13:28 Order name: CT Head C Spine; Complete Time: 14:04 kb 10/24 13:38 Order name: CBC with Automated Diff; Complete Time: 14:47 EDMS 10/24 13:38 Order name: Basic Metabolic Panel; Complete Time: 15:11 EDMS 10/24 13:37 Order name: Orthostatics; Complete Time: 15:08 kb 10/24 13:37 Order name: IV Start; Complete Time: 14:08 kb Administered Medications: 15:38 Drug: Insulin Regular Human 5 units {Co-Signature: bp (Elmer Sadler RN).} Route: IVP; ap3 Site: left antecubital; 16:41 Follow up: Response: No adverse reaction ap3 15:39 Drug: NS 0.9% 1000 ml Route: IV; Rate: 1000 ml; Site: left antecubital; ap3 16:40 Follow up: IV Status: Order to discontinue infusion; IV Intake: 400ml ap3 Disposition: 10/25 07:15 Co-signature as Attending Physician, Saurav Blount MD I agree with the assessment and jermaine plan of care. Disposition Summary: 10/24/21 15:57 Discharge Ordered Location: Home kb Condition: Stable kb Diagnosis - Unspecified injury of head, initial encounter kb - Fall on same level from slipping, tripping and stumbling with subsequent striking kb against object Followup: kb - With: Emergency Department - When: As needed - Reason: Worsening of condition Followup: kb - With: Private Physician - When: 2 - 3 days - Reason: Recheck today's complaints, Continuance of care, Re-evaluation by your physician Discharge Instructions: - Discharge Summary Sheet kb - Head Injury, Adult, [id number] kb Forms: - Medication Reconciliation Form kb - Thank You Letter kb - Antibiotic Education kb - Prescription Opioid Use kb - Work release form ap3 Signatures: Dispatcher [employer] EDMS Shelly Blackburn, NATALIIA LUISP-Saurav Jiménez MD MD cha Prokisch, Amanda, RN RN ap3 Javier Beckett 2 Elmer Sadler RN bp
--- NOTE | 2021-10-24 15:58 | ER ---
Nurse's Notes [facility] Name: Chente Minaya Age: 51 yrs Sex: Male : 1970 Arrival Date: 10/24/2021 Time: 13:06 Bed 16 Private MD: Diagnosis: Unspecified injury of head, initial encounter;Fall on same level from slipping, tripping and stumbling with subsequent striking against object Presentation: 10/24 13:21 Chief complaint: Patient states: past 24 hours has had 4 nose bleeds; states this ab2 morning had a nose bleed and ran into bathroom, tripped and fell onto floor, states hit head with LOC, unsure how long was on the floor. Also states nausea and dizziness. Coronavirus screen: Vaccine status: Patient reports being unvaccinated. Client denies travel out of the [place] in the last 14 days. Ebola Screen: Patient negative for fever greater than or equal to 101.5 degrees Fahrenheit, and additional compatible Ebola Virus Disease symptoms. Initial Sepsis Screen: Does the patient meet any 2 criteria? No. Patient's initial sepsis screen is negative. Does the patient have a suspected source of infection? No. Patient's initial sepsis screen is negative. Risk Assessment: Do you want to hurt yourself or someone else?. Onset of symptoms was October 24, 2021. 13:21 Method Of Arrival: Ambulatory ab2 13:21 Acuity: GILDARDO 3 ab2 13:29 Care prior to arrival: None. Mechanism of Injury: Fall from standing position. Trauma ap3 event details: Injury occurred in the [facility]. Triage Assessment: 13:23 General: Appears uncomfortable, Behavior is calm, cooperative. Pain: Complains of pain ab2 in head Pain currently is 7 out of 10 on a pain scale. Neuro: Level of Consciousness is awake, alert, obeys commands, Oriented to person, place, time, situation. Trauma Activation: Not Applicable Physician: ED Physician; Name: ; Notified At: ; Arrived At: Physician: General Surgeon; Name: ; Notified At: ; Arrived At: Physician: Radiology; Name: ; Notified At: ; Arrived At: Physician: Respiratory; Name: ; Notified At: ; Arrived At: Physician: Lab; Name: ; Notified At: ; Arrived At: Historical: - Allergies: 13:23 Bactrim; ab2 13:23 mushroom; ab2 13:23 PENICILLINS; ab2 13:23 Reglan; ab2 13:23 Sulfa (Sulfonamide Antibiotics); ab2 13:23 surgical steel; ab2 13:23 tramadol; ab2 13:23 Tylenol-Codeine #3; ab2 13:23 Tylenol-Codeine #4; ab2 - Home Meds: 13:23 anastrozole Oral [Active]; betablocker [Active]; carvedilol Oral [Active]; Esgic Oral ab2 [Active]; Fioricet Oral [Active]; levemir [Active]; Levemir FlexTouch U-100 Insulin 30 units subcutaneous twice a day [Active]; losartan 50 mg Oral tab 1 tab once daily [Active]; losartan Oral [Active]; ondansetron HCl 4 mg Oral tab [Active]; propranolol 40 mg Oral tab 1 tab 2 times per day [Active]; Propranolol Oral [Active]; testosterone [Active]; Testosterpme injection Weekly [Active]; unknown BP med [Active]; - PMHx: 13:23 CHF; Depression; Diabetes - NIDDM; food bolus; GERD; hiatal hernia; Migraines; ab2 neuropathy; - PSHx: 13:23 multiple upper GI procedures; Appendectomy; ab2 - Immunization history:: Client reports having NOT received the Covid vaccine. - Social history:: Smoking status: Patient denies any tobacco usage or history of. - Immunization history: Last tetanus immunization: - up to date. Screenin:27 Abuse screen: Denies threats or abuse. Nutritional screening: No deficits noted. ap3 Tuberculosis screening: No symptoms or risk factors identified. 16:39 Fall Risk Fall in past 12 months (25 points). No secondary diagnosis (0 pts). IV access ap3 (20 points). Ambulatory Aid- None/Bed Rest/Nurse Assist (0 pts). Gait- Normal/Bed Rest/Wheelchair (0 pts) Mental Status- Oriented to own ability (0 pts). Total Prieto Fall Scale indicates High Risk Score (45 or more points). Fall prevention measures have been instituted. Side Rails Up X 2 Placed Close to Nursing Station Frequent Obs/Assessments Occuring As available patient and family educated on Fall Prevention Program and Strategies. Primary Survey: 13:27 NO uncontrolled hemorrhage observed. A: The patient is alert. Airway: patent, No ap3 supplemental oxygen in use on arrival. Oral cavity: clear, gag reflex present. Breathing/Chest: Respiratory pattern: regular, Respiratory effort: spontaneous. Circulation: Skin color: pink, Skin temperature: warm, dry. Disability Alert. Exposure/Environment:. Reassessment. 16:38 Reassessment Airway Airway Patent Breathing/Chest Respiratory pattern Regular ap3 Respiratory effort Spontaneous Circulation Heart rhythm Sinus rhythm Color [place] Temperature Warm Dry. Assessment: 13:32 General: Appears in no apparent distress. comfortable, Behavior is calm, cooperative, ap3 appropriate for age. Pain: Complains of pain in headache Quality of pain is described as aching. Neuro: Level of Consciousness is awake, alert, obeys commands, Oriented to person, place, time, situation, Appropriate for age Moves all extremities. Gait is steady, Speech is normal, Facial symmetry appears normal. Respiratory: Airway is patent Respiratory effort is even, unlabored, Respiratory pattern is regular, symmetrical. 16:09 General: awaiting completion of fluids prior to patient discharge. ap3 Vital Signs: 13:21 BP 137 / 81; Pulse 99; Resp 18; Temp 98.4; Pulse Ox 99% ; Weight 133.81 kg; Height 6 ab2 ft. 2 in. (187.96 cm); Pain 7/10; 14:45 BP 119 / 73 Supine; Pulse 101 RA; ap3 14:50 BP 128 / 90 Sitting; Pulse 92 RA; ap3 14:55 BP 137 / 90 Standing; Pulse 90; ap3 13:21 Body Mass Index 37.88 (133.81 kg, 187.96 cm) ab2 Carol Coma Score: 13:29 Eye Response: spontaneous(4). Verbal Response: oriented(5). Motor Response: obeys ap3 commands(6). Total: 15. Trauma Score (Adult): 13:29 Eye Response: spontaneous(1); Verbal Response: oriented(1); Motor Response: obeys ap3 commands(2); Systolic BP: > 89 mm Hg(4); Respiratory Rate: 10 to 29 per min(4); Carol Score: 15; Trauma Score: 12 ED Course: 13:06 Patient arrived in ED. am2 13:23 Triage completed. ab2 13:23 Arm band placed on. ab2 13:28 Shelly Blackburn FNP-C is [facility]. kb 13:28 Saurav Blount MD is Attending Physician. kb 13:29 Patient has correct armband on for positive identification. Bed in low position. Call ap3 light in reach. Side rails up X2. Pulse ox on. NIBP on. Door closed. Noise minimized. 13:29 Patient maintains SpO2 saturation greater than 95% on room air. ap3 13:32 Thermoregulation: warm blanket given to patient. ap3 13:35 Bruna Bermudez, RN is Primary Nurse. ap3 13:45 CT Head C Spine In Process Unspecified. EDMS 16:38 No provider procedures requiring assistance completed. IV discontinued, intact, ap3 bleeding controlled, No redness/swelling at site. Pressure dressing applied. Administered Medications: 15:38 Drug: Insulin Regular Human 5 units {Co-Signature: bp (Elmer Sadler RN).} Route: IVP; ap3 Site: left antecubital; 16:41 Follow up: Response: No adverse reaction ap3 15:39 Drug: NS 0.9% 1000 ml Route: IV; Rate: 1000 ml; Site: left antecubital; ap3 16:40 Follow up: IV Status: Order to discontinue infusion; IV Intake: 400ml ap3 Intake: 16:39 PO: 0ml; Total: 0ml. ap3 16:40 IV: 400ml; Total: 400ml. ap3 Outcome: 15:57 Discharge ordered by . kb 16:39 Discharged to home ambulatory. ap3 16:39 Condition: good 16:39 Discharge instructions given to patient, Instructed on discharge instructions, follow up and referral plans. Demonstrated understanding of instructions, follow-up care. 16:39 Patient's length of stay was not longer than 2 hours. ap3 16:40 Patient left the ED. ap3 Signatures: Dispatcher [employer] EDMD Shelly Blackburn FNP-C [employer]-Bruna Melchor am2 Bruna Bermudez, RN RN ap3 Javier Beckett ab2 Elmer Sadler RN bp
[2021-10-24 16:45] VITALS: TEMP 98.4; O2SAT 99
[2021-10-24 16:48] VITALS: BP 137/90
== END 2021-10-24 16:40 | disposition home or self-care (01) ==
LOC: ER 13:04
DX: S09.90XA Unspecified injury of head, initial encounter (principal); W19.XXXA Unspecified fall, initial encounter; Y93.02 Activity, running; E11.9 Type 2 diabetes mellitus without complications; Z79.4 Long term (current) use of insulin; F32.A Depression, unspecified; Z88.0 Allergy status to penicillin; Z88.1 Allergy status to other antibiotic agents; Z88.2 Allergy status to sulfonamides; Z88.5 Allergy status to narcotic agent; Z91.048 Other nonmedicinal substance allergy status
CPT/HCPCS: 96361; 85025; 80048; 36415; 70450; 72125; 96374; 99284; J7030

== ENCOUNTER → 2021-11-16 | Day surgery (SDC) | payer OTHER ==
[~2021-11-16] MED LIST: GLUCAGON 1 MG/VIAL ONE; NA CHLORIDE 0.9% 1,000 ML ONE; NA CHLORIDE 0.9% 500 ML ONE; ONDANSETRON 4 MG/2 ML VIAL ONE; propofoL 200 MG/20 ML VIAL IV ONE
--- OUTSIDE RECORDS SUMMARY | 2021-11-16 16:22 | XMS REPORT | Continuity of Care Document ---
:1970 Author Organization [facility] t Address [address] [place] [address] Care Team Providers Name Role Phone PCP, [...] vers pain pain 2-20 ity of 00:00: [address] Branch Obesity Obesity Disease Active 2020-0 Univers (BMI (BMI 2-19 ity of 30-39.9) 30-39.9) 00:00: [address] Acute Acute Disease Active 2020-0 Univers [...] Quantity Comments Source Exposure to Not sure [facility] SARS-CoV-2 [place] [facility] (event) [facility] Sex Assigned At [facility] [place] [facility] Tobacco use and 2020-04-24 2020-04-24 Never used Universit y of exposure 00:00:00 00:00:00 [facility] Branch Alcohol intake 2020-04-24 2020-04-24 Current drinker Unive rsity of 00:00:00 00:00:00 of alcohol [place] [facility] (finding) Branch History SDOH 2019-11-03 2019-11-03 5 University o f Financial 00:00:00 00:00:00 [facility] Branch Smoking Status Start Date Stop Date Source Former smoker 2020-04-24 00:00:00 2020-04-24 00:00:00 [facility] [place] [facility] Medications Ordered Filled Start Stop Current Ordering Indication Dosage Frequency Signature Comments Components Source Medication Medication Date Date Medication? Clinician (SIG) Name Name divalproex 2020-0 Yes [id number] 250mg Take 1 Univers ER 250 mg 8-10 tablet by ity o f 24 hr 00:00: mouth 2 [place] tablet 00 (two) Medical times [place] daily. divalproex 2020-0 Yes [id number] 250mg Take 1 Univers ER 250 mg 8-10 tablet by ity o f 24 hr 00:00: mouth 2 [place] tablet 00 (two) Medical times [place] daily. water for 2020-0 Yes PRN, Univers irrigation 24 Starting ity o f irrigation 03:19: Angelina [place] solution 04/06/20 at Medic al 2218, [place] Until Discontinu ed, Routine, Intra-op simethicone 2019-0 Yes PRN, Univer s (GAS RELIEF 04-07 Starting ity of (SIMETHICON 03:19: Angelina [place] E)) 40 00 04/06/20 at Medical mg/0.6 mL 2218, [place] drops Until Discontinu ed, Routine, Intra-op glucagon [...] 1,000 mL 00 :00 IV Medical Infusion, [place] ONCE, 1 dose, 02/19/20 at 1800, STAT [...] 1,000 mL 00 :00 IV Medical Infusion, [place] ONCE, 1 dose, 02/19/20 at 1645, STAT [...] Branch 1630, MANDEEP traMADol 50 2019-0 Yes [id number] 50mg Take 1 Univers mg tablet 6-06 tablet by ity o f 00:00: mouth [place] 00 every 6 Medical (six) Branch hours as needed for Pain (scale 4-6). traMADol 50 2019-0 Yes [id number] 50mg Take 1 Univers mg tablet 6-06 tablet by ity o f 00:00: mouth [place] 00 every 6 Medical (six) Branch hours as needed for Pain (scale 4-6). traMADol 50 2019-0 Yes [id number] 50mg Take 1 Univers mg tablet 6-06 tablet by ity o f 00:00: mouth [place] 00 every 6 Medical (six) Branch hours as needed for Pain (scale 4-6). traMADol 50 2019-0 Yes [id number] 50mg Take 1 Univers mg tablet 6-06 tablet by ity o f 00:00: mouth [place] 00 every 6 Medical (six) Branch hours as needed for Pain (scale 4-6). traMADol 50 2019-0 Yes [id number] 50mg Take 1 Univers mg tablet 6-06 tablet by ity o f 00:00: mouth [place] 00 every 6 Medical (six) Branch hours as needed for Pain (scale 4-6). traMADol 50 2019-0 Yes [id number] 50mg Take 1 Univers mg tablet 6-06 tablet by ity o f 00:00: mouth [place] 00 every 6 Medical (six) Branch hours as needed for Pain (scale 4-6). clindamycin 2019-0 2020- No [id number] 450mg Take 3 Univers 150 mg 02-18 06-17 capsules ity of capsule 00:00: 04:59 by mouth 3 Danie as 00 :00 (three) Medical times Branch daily for 10 days. glipiZIDE 2019-0 Yes [id number] 10mg Take 1 Un grabiel 10 mg 2-22 tablet by ity of tablet 00:00: mouth 2 [place] 00 (two) Medical times Branch daily before breakfast and dinner. HYDROcodone 2020-0 Yes [id number] 1{tbl} Take 1 Univers -acetaminop 2-22 tablet by ity of hen 5-325 00:00: mouth [place] mg tablet 00 every 6 Medical (six) Branch hours as needed for Pain (scale 7-10). glipiZIDE 2020-0 Yes [id number] 10mg Take 1 Un grabiel 10 mg 2-22 tablet by ity of tablet 00:00: mouth 2 [place] 00 (two) Medical times Branch daily before breakfast and dinner. HYDROcodone 2020-0 Yes [id number] 1{tbl} Take 1 Univers -acetaminop 2-22 tablet by ity of hen 5-325 00:00: mouth [place] mg tablet 00 every 6 Medical (six) Branch hours as needed for Pain (scale 7-10). glipiZIDE 2020-0 Yes [id number] 10mg Take 1 Un grabiel 10 mg 2-22 tablet by ity of tablet 00:00: mouth 2 [place] 00 (two) Medical times Branch daily before breakfast and dinner. HYDROcodone 2020-0 Yes [id number] 1{tbl} Take 1 Univers -acetaminop 2-22 tablet by ity of hen 5-325 00:00: mouth [place] mg tablet 00 every 6 Medical (six) Branch hours as needed for Pain (scale 7-10). glipiZIDE 2020-0 Yes [id number] 10mg Take 1 Un grabiel 10 mg 2-22 tablet by ity of tablet 00:00: mouth 2 [place] 00 (two) Medical times Branch daily before breakfast and dinner. HYDROcodone 2020-0 Yes [id number] 1{tbl} Take 1 Univers -acetaminop 2-22 tablet by ity of hen 5-325 00:00: mouth [place] mg tablet 00 every 6 Medical (six) Branch hours as needed for Pain (scale 7-10). glipiZIDE 2020-0 Yes [id number] 10mg Take 1 Un grabiel 10 mg 2-22 tablet by ity of tablet 00:00: mouth 2 [place] 00 (two) Medical times Branch daily before breakfast and dinner. HYDROcodone 2020-0 Yes [id number] 1{tbl} Take 1 Univers -acetaminop 2-22 tablet by ity of hen 5-325 00:00: mouth [place] mg tablet 00 every 6 Medical (six) Branch hours as needed for Pain (scale 7-10). glipiZIDE 2020-0 Yes [id number] 10mg Take 1 Un grabiel 10 mg 2-22 tablet by ity of tablet 00:00: mouth 2 [place] 00 (two) Medical times Branch daily before breakfast and dinner. HYDROcodone 2020-0 Yes [id number] 1{tbl} Take 1 Univers -acetaminop 2-22 tablet by ity of hen 5-325 00:00: mouth [place] mg tablet 00 every 6 Medical (six) Branch hours as needed for Pain (scale 7-10). glipiZIDE 2020-0 Yes [id number] 10mg Take 1 Un grabiel 10 mg 2-22 tablet by ity of tablet 00:00: mouth 2 [place] 00 (two) Medical times Branch daily before breakfast and dinner. HYDROcodone 2020-0 Yes [id number] 1{tbl} Take 1 Univers -acetaminop 2-22 tablet by ity of hen 5-325 00:00: mouth [place] mg tablet 00 every 6 Medical (six) Branch hours as needed for Pain (scale 7-10). glipiZIDE 2020-0 Yes [id number] 10mg Take 1 Un grabiel 10 mg 2-22 tablet by ity of tablet 00:00: mouth 2 [place] 00 (two) Medical times Branch daily before breakfast and dinner. HYDROcodone 2020-0 Yes [id number] 1{tbl} Take 1 Univers -acetaminop 2-22 tablet by ity of hen 5-325 00:00: mouth [place] mg tablet 00 every 6 Medical (six) Branch hours as needed for Pain (scale 7-10). glipiZIDE 2020-0 Yes [id number] 10mg Take 1 Un grabiel 10 mg 2-22 tablet by ity of tablet 00:00: mouth 2 [place] 00 (two) Medical times Branch daily before breakfast and dinner. HYDROcodone 2020-0 Yes [id number] 1{tbl} Take 1 Univers -acetaminop 2-22 tablet by ity of hen 5-325 00:00: mouth [place] mg tablet 00 every 6 Medical (six) Branch hours as needed for Pain (scale 7-10). ciprofloxac 2020-0 2020- No [id number] 500mg Take 1 Univers in HCl 500 2-22 11-13 tablet by ity of mg tablet 00:00: 05:59 mouth [place] 00 :00 every 12 Medical (twelve) Branch hours for 7 days. metroNIDAZO 2019- No [id number] 500mg Take 1 Univers LE 500 mg [...] Routine insulin 2020- No 30U 30 Units, [facility] ers detemir 11-04 Subcutaneo ity o f [...] Branch 1100, MANDEEP cyclobenzap 2018-09 2020- No [id number] 5mg Take 1 Univers rine 5 mg 011-06 9100 tablet by ity of tablet 00:00: 00:00 mouth 3 [place] 00 :00 (three) Medical times Branch daily. traMADol 2018-09 2020- No [id number] 50mg Take 1 Univers (ULTRAM) 50 11-06 [...] 2020-04-24 13:23:00 129 mm[Hg] Univer [facility]ity of [facility] Diastolic blood 2020-04-24 13:23:00 81 mm[Hg] Unive rsity of [facility] Heart rate 2020-04-24 13:23:00 82 /min Universi ty [facility] Body weight 2020-04-24 13:23:00 138.075 kg Universi ty [facility] BMI 2020-04-24 13:23:00 39.08 kg/m2 Universi ty [facility] Systolic blood 2020-04-24 13:23:00 129 mm[Hg] Univer sity of [facility] Diastolic blood 2020-04-24 13:23:00 81 mm[Hg] Unive rsity of [facility] Heart rate 2020-04-24 13:23:00 82 /min Universi ty [facility] Body weight 2020-04-24 13:23:00 138.075 kg Universi ty [facility] BMI 2020-04-24 13:23:00 39.08 kg/m2 Universi ty [facility] Systolic blood 2020-04-07 03:51:00 118 mm[Hg] Univer sity of [facility] Diastolic blood 2020-04-07 03:51:00 68 mm[Hg] Unive rsity of [facility] Heart rate 2020-04-07 03:51:00 92 /min Universi ty [facility] Respiratory rate 2020-04-07 03:51:00 16 /min Univ [facility] [place] [facility] Oxygen saturation in 2020-04-07 03:51:00 100 /min University of Arterial blood by [facility] Pulse oximetry Branch Body temperature 2020-04-07 03:40:00 [...] 94 /min University of Arterial blood by [facility] Pulse oximetry Branch Systolic blood [...] 96 /min University of Arterial blood by [facility] Pulse oximetry Branch Body temperature 2019-11-06 14:00:00 36.72 Leonor [facility] [place] [facility] Body height 2019-11-03 23:00:00 188 cm [facility] [place] [facility] Body weight 2019-11-03 15:22:00 129.275 kg [facility] BMI 2019-11-03 15:22:00 36.58 kg/m2 [facility] Procedures Procedure Date / Time Performing Clinician Source Performed EGD (ENDO) 2020-04-07 02:31:21 Lisa Armendariz [facility] COMP. METABOLIC PANEL 2020-04-07 01:52:00 Yazmin Apple [facility] ([id number]) Medical Branch CBC WITH DIFF 2020-04-07 01:52:00 Yazmin Apple Cassy [place] [facility] XR NECK SOFT TISSUE 2020-04-07 00:57:29 Yazmin Apple [facility] COVID-19 (ID NOW RAPID 2020-04-07 00:40:00 Yazmin Apple [facility] TESTING) Medical Branch NOTICE OF PRIVACY 2020-04-06 23:57:19 Doctor Unassigned, No [facility] Name Medical Branch CONSENT/REFUSAL FOR 2020-04-06 23:57:05 Doctor Unassigned, No [facility] [place] DIAGNOSIS AND TREATMENT Name Medical Branch REFERRAL- 2020-03-29 05:01:00 Doctor Unassigned, No [facility] REQUEST/RESPONSE Name Medical Branch POCT GLUCOSE 2020-02-19 23:05:00 Meggan Hernandez [facility] (AUTOMATED) Medical Branch POCT GLUCOSE 2020-02-19 21:52:00 Meggan Hernandez [facility] (AUTOMATED) Medical Branch COMP. METABOLIC PANEL 2020-02-19 20:47:00 Meggan Hernandez [facility] ([id number]) Medical Branch CBC WITH DIFFERENTIAL 2020-02-19 20:47:00 Meggan Hernandez [facility] COVID-19 (ID NOW RAPID 2020-02-19 20:47:00 Meggan Hernandez [facility] TESTING) Medical Branch NOTICE OF PRIVACY 2020-02-19 19:53:34 Doctor Unassigned, No Univ [facility] PRACTICES Name Medical Branch CONSENT/REFUSAL FOR 2020-02-19 19:53:23 Doctor Unassigned, No [facility] [place] DIAGNOSIS AND TREATMENT Name Medical Branch POCT GLUCOSE 2019-11-06 13:36:00 [facility] POCT GLUCOSE 2019-11-06 01:48:00 [facility] POCT GLUCOSE 2019-11-05 22:16:00 [facility] (AUTOMATED) Medical Branch POCT GLUCOSE 2019-11-05 17:26:00 Luis Mandujano [facility] (AUTOMATED) Medical Branch POCT GLUCOSE 2019-11-05 13:21:00 [facility] (AUTOMATED) Medical Branch BASIC METABOLIC PANEL 2019-11-05 10:28:00 [facility] (NA, K, CL, CO2, Medical Branch GLUCOSE, BUN, CREATININE, CA) CBC WITH DIFFERENTIAL 2019-11-05 10:28:00 [facility] Medical Branch POCT GLUCOSE 2019-11-05 10:12:00 [facility] POCT GLUCOSE 2019-11-05 06:12:00 [facility] (AUTOMATED) Medical Branch POCT GLUCOSE 2019-11-05 01:41:00 [facility] (AUTOMATED) Medical Branch POCT GLUCOSE 2019-11-04 22:26:00 [facility] (AUTOMATED) Medical Branch POCT GLUCOSE 2019-11-04 17:20:00 [facility] (AUTOMATED) Medical Branch POCT GLUCOSE 2019-11-04 13:21:00 [facility] (AUTOMATED) Medical Branch POCT GLUCOSE 2019-11-04 11:57:00 [facility] (AUTOMATED) Medical Branch POCT GLUCOSE 2019-11-04 05:30:00 [facility] (AUTOMATED) Medical Branch POCT GLUCOSE 2019-11-04 02:17:00 [facility] (AUTOMATED) Medical Branch POCT GLUCOSE 2019-11-03 23:23:00 [facility] (AUTOMATED) Medical Branch POCT GLUCOSE 2019-11-03 21:41:00 Luis Mandujano [place] [facility] (AUTOMATED) [facility] SURGICAL PATHOLOGY EXAM 2019-11-03 20:26:00 Yonatan Lund Uni versity [facility] LAPAROSCOPIC 2019-11-03 19:24:00 Yonatan Lund [facility] APPENDECTOMY [facility] CT ABDOMEN PELVIS W 2019-11-03 17:41:22 Ervin Rhoades [facility] CONTRAST [facility] LIPASE 2019-11-03 15:35:00 Ervin Rhoades [facility] COMP. METABOLIC PANEL 2019-11-03 15:35:00 Ervin Rhoades [facility] ([id number]) [facility] CBC WITH DIFFERENTIAL 2019-11-03 15:35:00 Ervin Rhoades [facility] GLYCOSYLATED HEMOGLOBIN 2019-11-03 15:35:00 Meggan Pichardo [facility] (A1C) [facility] URINALYSIS 2019-11-03 15:35:00 Jf [facility] Encounters Start End Encounter Admission Attending Care Care Encounter Source Date/Time Date/Time Type Type Clinicians Facility Department ID 2020-08-15 2020-08-15 Outpatient R [facility] [id number] Univers 10:00[facility]00 [facility] 2020-08-15 [id number] Univers 10:00:00 10:00:00 SILVINA [facility] 2020-08-14 2020-08-14 Outpatient R [facility] [id number] Univers 10:40:00 10:40:00 [id number] [facility] 2020-04-24 2020-04-24 Office [facility] [id number] 08:15:37 08:49:56 Visit Norberto Ward [id number] [place] 4.2.7.2.686 Pol[place] [phone] nal 092 [facility] 2020-04-24 2020-04-24 Office [facility] [id number] [facility] 08:15:37 08:49:56 Visit Norberto Ward [id number] [id number] [phone] N[place] dical nal 092 [facility] 2020-04-24 2020-04-24 Outpatient R NORBERTO BERNAL [facility] [id number] Univers 08:00:00 08:00:00 NORBERTO BERNAL ity of [facility] 2020-04-06 2020-04-06 Emergency Yazmin Apple [facility] [id number] Univers 19:12:13 22:55:00 Cassy [place] [id number] [facility] 4[place]2.[place].2.[place] [id number] [facility] 071 [place] 2020-04-06 2020-04-06 Emergency X Yazmin APPLE [facility] ERT [id number] Univers 19:12:13 19:12:13 ity of [facility] 2020-04-06 2020-04-06 Orders Doctor SNEED [id number] Univers 00:00:00 00:00:00 Only Unassigned, MIRI [id number] ity of [facility] 4.2.7.2.686 [place] [phone] [facility] 009 [place] 2020-03-29 2020-03-29 Orders Doctor NAREN [id number] Univers 00:00:00 00:00:00 Only Unassigned, MIRI [id number] ity of [facility] [id number] [place] [phone] [facility] 009 [place] 2020-02-19 2020-02-19 [facility] [id number] Univers 15:07:18 19:22:00 Meggan [place] [id number] i [place] [facility] [place] [facility] 4[place]2.7.2.686 [place] [phone] [facility] 084 [place] 2020-02-19 2020-02-19 Emergency X [facility] ERT [id number] Univers 14:53:00 14:53:00 ity of [facility] 2020-02-19 2020-02-19 Orders Doctor SNEED 1.2.840.114 [id number] Univers 00:00:00 00:00:00 Only Unassigned, MIRI [id number] ity of [facility] [id number] [place] [phone] [facility] 009 Branch 2019-11-08 2019-11-08 Transition Faraz Nicolas [id number] Univers 00:00:00 00:00:00 of Care Hortensia De Jesus [id number] ity [id number] [phone] [facility] 403 Branch 2019-11-03 2019-11-06 Hospital Ervin Rhoades [facility] 1.2.840.1 [id number] Univers 09:25:15 12:00:00 Encounter Luis Mandujano [id number] ity of [place] 4[place]2.686 [place] [phone] [facility] 080 Branch 2019-11-03 2019-11-06 Inpatient X PAVITHRA [facility] TIMOTEO [id number] Univers 09:25:15 12:00:00 LUIS omsan [facility] Results Test Description Test Time Test Comments Results Result Comments Source COMP. METABOLIC PANEL (19804) 2020-04-07 03:03:00 Test Item Value Reference Range Interpretation Comme nts NA (test code = 9601934539) 139 mmol/L 135-145 K (test code = 5668733559) 4.4 mmol/L 3.5-5 CL (test code = 9636526886) 101 mmol/L 98-108 CO2 TOTAL (test code = 6795152079) 28 mmol/L 23-31 AGAP (test code = 5276443106) 2-16 BUN (test code = 2673702098) 11 mg/dL 7-23 GLUCOSE (test code = 4081494203) 225 mg/dL 70-110 H CREATININE (test code = 0.98 mg/dL 0.6-1.25 3971204366) TOTAL BILI (test code = 0.5 mg/dL 0.1-1.5 6770568363) CALCIUM (test code = 8112186144) 9.6 mg/dL 8.6-10.6 T PROTEIN (test code = 3287809387) 8.2 g/dL 6.3-8.2 ALBUMIN (test code = 3196183636) 4.7 g/dL 3.5-5 ALK PHOS (test code = 9310634123) 75 U/L 34-122 ALTv (test code = 1742-6) 74 U/L 5-50 H AST(SGOT) (test code = 5499464348) 39 U/L 13-40 eGFR Calculation (Non- mL/min/1.73m2 [place]) (test code = 1571149595) eGFR Calculation ( mL/min/1.73m2 [place]) (test code = 2496231650) KATE (test code = KATE) Association of [...] tests). Lab Interpretation (test code = Abnormal 69222-8) [facility] WITH [id number] 02:12:00 Test Item Value Reference Range Interpretation [...] (test code = 36.4 fL 38.5-51.6 L 61905-4) RDW-CV (test code = 12.5 % 12.1-15.4 788-0) PLT (test code = See_Comment [Automated 777-3) message] The sy stem which generated this result transmitted reference range : 150 - 328 10*3/ ?L. The reference r jevon was not used to interpret this result as normal/abnormal . MPV (test code = 11.5 fL 9.8-13 49549-7) NRBC/100 WBC (test See_Comment [Automat ed code = 9877412226) message] The system which generated this result transmitted reference range : 0.0 - 10.0 /100 WBCs. The refer ence range was not u sed to interpret th is result as normal/abnormal . NRBC x10^3 (test code <0.01 See_Comment [Auto mated = 7583488889) message] The s ystem which generated this result transmitted reference range : 10*3/?L. The reference range was not used to interpret this result as normal/abnormal . GRAN MAT (NEUT) % 68.0 % (test code = 770-8) IMM GRAN % (test code 0.40 % = 2472208904) LYMPH % (test code = 23.8 % 736-9) MONO % (test code = 4.7 % 5905-5) EOS % (test code = 2.7 % 713-8) BASO % (test code = 0.4 % 706-2) GRAN MAT x10^3(ANC) 5.24 10*3/uL 1.99-6.95 (test code = 7203966703) IMM GRAN x10^3 (test 0.03 10*3/uL 0-0.06 code = 2471390521) LYMPH x10^3 (test code 1.83 10*3/uL 1.09-3.23 = 731-0) MONO x10^3 (test code 0.36 10*3/uL 0.36-1.02 = 742-7) EOS x10^3 (test code = 0.21 10*3/uL 0.06-0.53 711-2) BASO x10^3 (test code 0.03 10*3/uL 0.01-0.09 = 704-7) Lab Interpretation Abnormal (test code = 53088-2) [facility] (ID NOW RAPID TESTING)2020-04-07 01:40:00 Test Item Value Reference Range Interpretation Comments SARS-CoV-2 Rapid ID NOW Not Detected Not Detected (test code = 17568-4) KATE (test code = KATE) ID NOW COVID-19 Assay is an isothermal nucleic acid amplification test intended for the qualitative detection of nucleic acid from SARS-CoV-2 viral RNA in nasopharyngeal (SCREEN DOOR MAKER) specimens. It is used under Emergency Use [...] indicated. Lab Interpretation Normal (test code = 42579-5) [facility] Hospital[facility] NECK SOFT [id number] 01:06:58 FINDINGS/IMPRESSION:: Frontal and lateral radiographs of [...] spondylotic changes at C5-C6. Cervical spine is otherwiseunremarkable.[facility] GLUCOSE (AUTOMATED) 2020-02-19 23:08:00 Test Item Value Reference Range Interpretation Comments POCT GLU (test code = 3627264803) 243 mg/dL 70-110 H Lab Interpretation (test code = Abnormal 88306-1) [facility] GLUCOSE (AUTOMATED)2020-02-19 21:58:00 Test Item Value Reference Range Interpretation Comments POCT GLU (test code = 2568968911) 313 mg/dL 70-110 H Lab Interpretation (test code = Abnormal 00431-4) [facility] (ID NOW RAPID TESTING)2020-02-19 21:31:00 Test Item Value Reference Range Interpretation Comments SARS-CoV-2 Rapid ID NOW Not Detected Not Detected (test code = 66429-8) KATE (test code = KATE) ID NOW COVID-19 Assay is an isothermal nucleic acid amplification test intended for the qualitative detection of nucleic acid from SARS-CoV-2 viral RNA in nasopharyngeal (SCREEN DOOR MAKER) specimens. It is used under Emergency Use [...] indicated. Lab Interpretation Normal (test code = 37647-9) [facility] Hospital[facility]. METABOLIC PANEL (40802)2020-02-19 21:29:00 Test Item Value Reference Range Interpretation Comments NA (test code = 134 mmol/L 135-145 L 7385066984) K (test code = 4.1 mmol/L 3.5-5 4510350947) CL (test code = 99 mmol/L 98-108 1979430190) CO2 TOTAL (test code = 27 mmol/L 23-31 6140258984) AGAP (test code = 2-16 1002392643) BUN (test code = 10 mg/dL 7-23 0301583675) GLUCOSE (test code = 372 mg/dL 70-110 H 5075822323) CREATININE (test code = 0.96 mg/dL 0.6-1.25 3055140856) TOTAL BILI (test code = 0.4 mg/dL 0.1-1.9 7811874698) CALCIUM (test code = 9.2 mg/dL 8.6-10.6 7089578654) T PROTEIN (test code = 7.5 g/dL 6.3-8.2 0101211662) ALBUMIN (test code = 4.5 g/dL 3.5-5 5645706478) ALK PHOS (test code = 86 U/L 34-122 6436238229) ALTv (test code = 48 U/L 5-50 1742-6) AST(SGOT) (test code = 27 U/L 13-40 9053437990) eGFR Calculation mL/min/1.73m2 (Non-) (test code = 3724102533) eGFR Calculation mL/min/1.73m2 () (test code = 3311168189) KATE (test code = KATE) Association of [...] tests). Lab Interpretation Abnormal (test code = 32763-0) [facility] WITH [id number] 21:06:00 Test Item Value Reference Range Interpretation Comments WBC (test code = See_Comment [Automated 2356-2) message] The sy stem which generated this result transmitted reference range : 4.20 - 10.70 10*3/?L. The reference range was not used to interpret this result as normal/abnormal . RBC (test code = See_Comment H [Automated 419-8) message] The sy stem which generated this [...] (test code = 36.3 fL 38.5-51.6 L 16010-6) RDW-CV (test code = 12.9 % 12.1-15.4 788-0) PLT (test code = See_Comment [Automated 777-3) message] The sy stem which generated this result transmitted reference range : 150 - 328 10*3/ ?L. The reference r jevon was not used to interpret this result as normal/abnormal . MPV (test code = 11.3 fL 9.8-13 31244-6) NRBC/100 WBC (test See_Comment [Automat ed code = 7282607733) message] The system which generated this result transmitted reference range : 0.0 - 10.0 /100 WBCs. The refer ence range was not u sed to interpret th is result as normal/abnormal . NRBC x10^3 (test code <0.01 See_Comment [Auto mated = 4455126110) message] The s ystem which generated this result transmitted reference range : 10*3/?L. The reference range was not used to interpret this result as normal/abnormal . GRAN MAT (NEUT) % 79.8 % (test code = 770-8) IMM GRAN % (test code 0.50 % = 9202060175) LYMPH % (test code = 13.4 % 736-9) MONO % (test code = 4.2 % 5905-5) EOS % (test code = 1.8 % 713-8) BASO % (test code = 0.3 % 706-2) GRAN MAT x10^3(ANC) 8.49 10*3/uL 1.99-6.95 H (test code = 4529268557) IMM GRAN x10^3 (test 0.05 10*3/uL 0-0.06 code = 6650446490) LYMPH x10^3 (test code 1.42 10*3/uL 1.09-3.23 = 731-0) MONO x10^3 (test code 0.45 10*3/uL 0.36-1.02 = 742-7) EOS x10^3 (test code = 0.19 10*3/uL 0.06-0.53 711-2) BASO x10^3 (test code 0.03 10*3/uL 0.01-0.09 = 704-7) Lab Interpretation Abnormal (test code = 99354-6) [facility] GLUCOSE (AUTOMATED)2019-11-06 13:38:00 Test Item Value Reference Range Interpretation Comments POCT GLU (test code = 6467468428) 116 mg/dL 70-110 H Lab Interpretation (test code = Abnormal 78720-1) [facility] GLUCOSE (AUTOMATED)2019-11-06 12:29:00 Test Item Value Reference Range Interpretation Comments POCT GLU (test code = 3939904106) 322 mg/dL 70-110 H Lab Interpretation (test code = Abnormal 60240-1) [facility] GLUCOSE (AUTOMATED)2019-11-06 12:29:00 Test Item Value Reference Range Interpretation Comments POCT GLU (test code = 9093673060) 230 mg/dL 70-110 H Lab Interpretation (test code = Abnormal 38052-3) [facility] GLUCOSE (AUTOMATED)2019-11-06 02:00:00 Test Item Value Reference Range Interpretation Comments POCT GLU (test code = 155 mg/dL 70-110 H Notifi ed Provider [id number]) Lab Interpretation (test Abnormal code = 22397-6) [facility] [id number]:02:00 Test Item Value Reference Range Interpretation Comments Case Report (test code Surgical Pathology ? ? = [id number]) ?Case: [id number] ? Authorizing Provider: ?Yonatan Lund MD ? ? ? Collected: ? 11/03/2019 1426 ?Ordering Location: ? ? [facility] ? ? ?Received: ?11/03/2019 1555 ? [facility] ?Pathologist: ? Klaus Tinoco MD ? Specimen: ? ?APPENDIX, appendix ? Final Diagnosis (test o1vpvBSvWIOmc9qlWKAhbB code = 1982440998) FuZzEwMzNcZnRuYmpcdWMx BYlfikSsLQkdr0PbF1XtPc AwMFxhbnNpXGRlZmxhbmcx WUCuAWG0jzElYKPxNZntPW EeBLxaDy4dtITqlWmfYyMa VKWju3nijtIHmjuzhGn4s1 ljCUAgYvQ3tZTqWWqzO6ra zhNjpBPhKOMlZOt3oL94OL YpoA7yzKXyPKtjxbXvOFvc czIdvkDzChn3ODIfL9vjIL ImZFNmW2GgFC3vTWEwAcm9 KBK6SUB7rLtii6S4gRJtuG JdiTrdQdWcGnSuSOQLm5Nx XNu8bZsvN3JuETEeWuW0dC QgUGFyYWdyYXBoIEZvbnQ7 qG57XRkclqE9jZQol7Gec3 6yt372cU8blZLkGWV6APXe BELqvSUbVEIuBSH6SVWpeB TbO3ijGLsiSY1nlwsiEKS6 MFxtYXJndDcyMFxtYXJnYj ZswLLzMNNbnUgiHHskd744 OOH0CwAjAL9bK8Sid4C9jF 9maXRcZGVmdGFiNzIwXGZv co6slYPtLCrjo4MiJAB0db F4lLAbtDUtMLOtQE05Lzla g2IfUltkEWY4ENYdnrQey2 Pye1klCqGuvoUeQ2pgW5Ut ZHJoZWFkXHBnYnJkcmZvb3 Jlt7UoqSKfuXi3c1lxWZAv DRCodSduf3rwXYY2HLQqR5 W6mJMcr5neKUsyVEMbqGF0 tbBrWGOkvHVyQ8YmuM8dYL vsSI4svoo0k2srRpVvSU1h gdlhu3dnXYmlSPNlHCP8Ls HcOLPrk2VmsegaXyLha0Ai vIEqIVzdW30qi606FXKwjf VmT5jkrDJgzoermEQsgmnm MFxmczIwXHFsXHBsYWluXG WaXSHxMuBdzAuilG2rIvGy ZnMyMFxwYXJccGFyZFxwbG FpblxmMFxmczIwXHBsYWlu XTGgMUFoDjMzEY7iMQXFVB 4BFVolPYQNDUKQJRKKRM8U WTpccGFyXHFsXHBsYWluXG BoSPHhWbJwyMzpgL3sEyPj QoHsQMRnGSPzDX0sMNZUIX JnKHNLQL5EYFAGPGnDAYeX FYfqQTBFEZ4SHQAGDzSTP6 lUSVNccGFyXHBhciBNYXR0 jTG1PCUuxFQqJMVIPTyoDW GohWpxyZ2pTpSlQwSkEayk ME3dZCXwC7ilqOIjCOQxZU JrY0xmScCmiA0moNzbNMwa ZjFcZnMyMiBIYXJzaHdhcm OgRK0pRCnfk0LdKNLDMBNt Kf4gII1nHDKgPDT5CwNzYE BNXHBsYWluXGYxXGZzMjBc hTWzbTskptGvYLzdt3DyM6 YyMjAwMFxhbnNpXGRlZmxh ktuiZDOkIQO1frWaHTYxBW ahWFNvVXxzOa5mkFJjrGkz XhVvIUIne5rsgvWGIWpwBt YpK890DJJrWOedg1lhr4Bl MWUrtSJyd6A3GUCJjkqxbH v8h4tfIyJpAiO9gDElRPqb R9sbjuTziSJaV2FocVOjgB z8kIqsA28ed7M8LgxfJ1av XBTwVAFqF0GqHN7cCFYdZa d2VOJ2PSU7DKDkIDOcM6Af WO3cVOCvoVWkJQx7g8qjmF syFNRqHMP9a0geFBcrfvE0 QL7wbi0ppPe8s7buhkToFW MtHKJosCVXPJOlD6UxeNvz Ek5fhNy8gWtrJjgyTBA9Fa v9IU2ysb49qrp6uRggYZZf oofcWhO1CPgzHYCkrspoPF v3FKehXHSprIV3XAMepAKc S6UgMFDbZL7sfmh3IYH1PN dyRLCaNwO2ECUcmMXpREIh wGojHGjhb674QNL7HsCzBN 6lY0Vrh1K7zJ6olPKwPJQr pMPzJqYqFQNtqv6avQHwST ili8GlRUK9vlF6xQZzcCOe WBMlDJ35Ygilq0JjWbvpVZ P1JXDgueXnt5Wdi8ugPpAc faVqP1wdW6LqLKVaFXBaGR UlNoWwpvWqh4Tyn3DmbYXa yMb3v8qhLHYvBFYwsCpqx6 tpLEV9URAyK5Z4rFLpr5sd EAqnNFXkqBX3ayG2QOBzsK EtX4ArgW4wWBCfBI7ihgw1 j7kkTWG0UDvxGEUgMdV1kl T4GEMwlFZzKXGazLhwPPzy v092RWB2ToEkABPjc5ShY3 XtdAcsC20jzFtlO11gBSDm sBzqdW0rnDzhhM5oFmKnDb MyNFxxbFxwbGFpblxmMVxm czIwXGxhbmcxMDMzXGhpY2 cwSuGvEWSlrDbmMXxdp9Wh XGYxXGNmMlxmczIwXHBhci GLTZbxtzXpaBKnr07cFExs eSByZXZpZXdlZCBhbGwgc3 QcR8deDG3aQ1VxpXItcrEh ghNpSHrbDTInq5u0eHDazU ckq8QmgLPdQG89gqObMANj DUD4AXWnv4jqEN09eypqRb GiiD15egFhuuRcJORoa8rz S6ayyDHfb5Mwu7UnprWxKI zaw3FuKP1glIMocxixcGA7 JLUljTBbspFgwgT7zKqmAF FhsM2pyD4smDmhzK9cEpEt FmTkAPusWM8iBTErV6mfiV XeGHAjQUNpF4vnQzPgxM6q bKjzYpoljnB5ABDccn58 Clinical Information Acute abdomen (test code = 5386565295) Gross Description (test y2btqVBwTVJgqPQpIeSfFQ code = 5610848079) UyFZAwh2juEDIzpSVwAlEx MzNcZnRuYmpcdWMxXGRlZm Ocw7wjj692zRKzk7lkZIHn PkC5pCEeFPBloVZhQ387XY GnARofn0tcw5IzZAOozDSb d1P2UUXJghjmkRb5eGwoP2 3fq0G4CxneY8mxDILhJInw JWLpHNewrLGoQQD1HBWuTZ P1OJttakNemtF5RZyohECz FgJ9TPb0y1jmxMbqRTEgMC O5o8kfQVypznKvWB4iuq8z iMu8s9domeJhZQJyQVMdeN FAHCToE3KveAjbBo3amAk3 qUqnBmslBAH1Amd3LH1uon 36ust8eIagIXXjdarnYtS0 BZnxHBNcbfzeQQd7IIdtMB DbzNXnYSBqxTVyF2CaIQqt JT9ndqc4QjZxFG2thwfhYP wgDQOvGNJ3FyFxUGVwz1Sf jqelRpAkbl8oit51YSI7q0 QitTntHXR7WVI6QqTzOt8l cIGcZTLqWA5mTuFfgBKjJW Oipm86kHeoPPrmtcEvuD8c GjRhMMEcbEMjADOdTI1ttC OdWLIksD7eujcfDZHmZmQh hyayPZWpjHwkvdYeTf4goA qlIYE4FIvtD1egxZ3sTvB6 KWrwV8trwL1iQMn1ZZaubS C8CZQzsP2lNE3njbkuc3nl QKL6GJvrJJXazwC3htSmZG KmjSHyH6WhnK34XmQgcREp P3HyfU6nJHclVLYkuiu8It RlQe5piGZtqJU9WYtwFqqp YWdlXHBnbmNvbnRccGduZG VjXHBsYWluXHBsYWluXGYw OOLdIkKjp3EyPRIof9yyNl Bbv1xmrWv9FLkegNnjkPEk blxmMFxmczIwXHBsYWluXG OkZFMvLsJaV5MuK6joQH8e QSBpcyByZWNlaXZlZCBpbi Lww4HfOYecjhEqUKLrjUmk QAW9jTAiJDDeRFVjPQIeWU 50XHBsYWluXGYxXGZzMjBc uQztNGsgTOo0IqcniZIduw xmMVxmczIwIHMgbmFtZSwg VUggbnVtYmVyICJhcHBlbm RpeFxwbGFpblxmMVxmczIw SQB7XyCjUXgeLLLabKhppF 3xViKvMsCvTKTxMF1qUIFo dnSrr0PxOG3jGCLepLuzee 44ER7cqfFvuRsjg7WgTNZm lGYoZDq6GIf5TxbtO91bmP 5ccTIiN7KxDQpmWA01IUXl OCBjbSBpbiBkaWFtZXRlci nkz4t7wZHzcMSdP9hxXGW9 XBpka4iytG3ovGrhrLKpIO Jch8G3sRSePOCgULYkAZWz JM5qyCwqEJOaUIO4JCKrVQ H8PEUlLOYseWomVMCViTZc UEBbHC9fcXamr5Jte5JwVM vex7QjNNOmotZ6sYLnCED4 gTNqyUCqFBFfsfStiFF7oV VudCBleHVkYXRlLiBUaGUg OGLjQE4uvIyrcITue3HmiA SeoOduo1KrtKbqceBeNCQn IHJldmVhbCBhIHBhdGVudC SctP6llthpjeGjP7voVaLq bq8tFVBzxxAdwC93LOOgXX TlCjFqvUanS59czINqgmmt YkZtJ1MwgIWaSF2izyMlRE dlLiAgVGhlIHdhbGwgdGhp S2qnKKKnJWQhrbxjfxQdbr 1mVQRaPB1kKfFeC44cCGBo cnVwdHVyZSBzaXRlIGlzIG jex5ZbnRcydXBlraBeEyxf KTidDN5fXBUyMZYrp19rqI llYX78X64mATdehiBaCIJ3 fN3tSM8hlpgwty9gEtJqaq JrOR10LQLoflIqv2GrkXvm xqQvz4inO6fjhT4acUStAS Eoqu2vlxQnNVR5lW8aqtrd yCupUMNptOXbwT1gJWHdbp TaZWB1nN9sOQ7ezarhffVm bmQgZGlzdGFsIHRpcCBhcm Nxg2YmrQf4wEZiOHwoWCNq LUEyLlxwYXJccGFyZFxwbG FpblxmMFxmczIwXHBsYWlu XGYxXGZzMjAgSnVsaWUgTW TJnUlginM7SJVHMFdpNVE9 Embedded Images (test code = 4363681202) [facility] GLUCOSE (AUTOMATED)2019-11-05 22:19:00 Test Item Value Reference Range Interpretation Comments POCT GLU (test code = 5993174414) 115 mg/dL 70-110 H Lab Interpretation (test code = Abnormal 58859-2) [facility] GLUCOSE (AUTOMATED)2019-11-05 18:23:00 Test Item Value Reference Range Interpretation Comments POCT GLU (test code = 2236131769) 197 mg/dL 70-110 H Lab Interpretation (test code = Abnormal 01096-7) [facility] GLUCOSE (AUTOMATED)2019-11-05 17:33:00 Test Item Value Reference Range Interpretation Comments POCT GLU (test code = 6614548988) 125 mg/dL 70-110 H Lab Interpretation (test code = Abnormal 84001-0) [facility] GLUCOSE (AUTOMATED)2019-11-05 13:28:00 Test Item Value Reference Range Interpretation Comments POCT GLU (test code = 3514487214) 130 mg/dL 70-110 H Lab Interpretation (test code = Abnormal 21780-4) [facility] METABOLIC PANEL (NA, K, CL, CO2, GLUCOSE, BUN, CREATININE, CA)2019-11-05 12:11:00 Test Item Value Reference Range Interpretation Comments NA (test code = 137 mmol/L 135-145 7129025711) K (test code = 3.6 mmol/L 3.5-5 5085133873) CL (test code = 100 mmol/L 98-108 3630521343) CO2 TOTAL (test code = 30 mmol/L 23-31 4456429862) AGAP (test code = 2-16 1836453105) BUN (test code = 14 mg/dL 7-23 7792680646) GLUCOSE (test code = 164 mg/dL 70-110 H 8853463577) CREATININE (test code = 0.81 mg/dL 0.6-1.25 0820062624) CALCIUM (test code = 8.6 mg/dL 8.6-10.6 8239546524) eGFR Calculation mL/min/1.73m2 (Non-) (test code = 5236275245) eGFR Calculation mL/min/1.73m2 () (test code = 5633281794) KATE (test code = KATE) Association of [...] tests). Lab Interpretation Abnormal (test code = 37105-1) [facility] WITH [id number] 11:39:00 Test Item Value Reference Range Interpretation Comments WBC (test code = See_Comment [Automated 0771-2) message] The sy stem which generated this result transmitted reference range : 4.20 - 10.70 10*3/?L. The reference range was not used to interpret this result as normal/abnormal . RBC (test code = See_Comment [Automated 257-8) message] The sy stem which generated this result transmitted reference range : 4.26 - 5.52 10*6/?L. The reference range was not used to interpret this result as normal/abnormal . HGB (test code = 14.2 g/dL 12.2-16.4 498-7) HCT (test code = 42.9 % 38.4-49.3 4544-3) MCV (test code = 82.3 fL 81.7-95.6 787-2) MCH (test code = 27.3 pg 26.1-32.7 785-6) MCHC (test code = 33.1 g/dL 31.2-35 786-4) RDW-SD (test code = 38.7 fL 38.5-51.6 32580-9) RDW-CV (test code = 13.0 % 12.1-15.4 788-0) PLT (test code = See_Comment [Automated 777-3) message] The sy stem which generated this result transmitted reference range : 150 - 328 10*3/ ?L. The reference r jevon was not used to interpret this result as normal/abnormal . MPV (test code = 11.5 fL 9.8-13 84269-2) NRBC/100 WBC (test See_Comment [Automat ed code = 9817840805) message] The system which generated this result transmitted reference range : 0.0 - 10.0 /100 WBCs. The refer ence range was not u sed to interpret th is result as normal/abnormal . NRBC x10^3 (test code <0.01 See_Comment [Auto mated = 5436800092) message] The s ystem which generated this result transmitted reference range : 10*3/?L. The reference range was not used to interpret this result as normal/abnormal . GRAN MAT (NEUT) % 83.5 % (test code = 770-8) IMM GRAN % (test code 0.30 % = 6857575089) LYMPH % (test code = 9.3 % 736-9) MONO % (test code = 5.7 % 5905-5) EOS % (test code = 1.1 % 713-8) BASO % (test code = 0.1 % 706-2) GRAN MAT x10^3(ANC) 7.74 10*3/uL 1.99-6.95 H (test code = 2462593001) IMM GRAN x10^3 (test 0.03 10*3/uL 0-0.06 code = 8917194660) LYMPH x10^3 (test code 0.86 10*3/uL 1.09-3.23 L = 731-0) MONO x10^3 (test code 0.53 10*3/uL 0.36-1.02 = 742-7) EOS x10^3 (test code = 0.10 10*3/uL 0.06-0.53 711-2) BASO x10^3 (test code <0.03 0.01-0.09 = 704-7) Lab Interpretation Abnormal (test code = 53168-1) [facility] GLUCOSE (AUTOMATED)2019-11-05 10:22:00 Test Item Value Reference Range Interpretation Comments POCT GLU (test code = 1578426302) 149 mg/dL 70-110 H Lab Interpretation (test code = Abnormal 32509-1) [facility] GLUCOSE (AUTOMATED)2019-11-05 06:15:00 Test Item Value Reference Range Interpretation Comments POCT GLU (test code = 9061975884) 204 mg/dL 70-110 H Lab Interpretation (test code = Abnormal 77459-0) [facility] GLUCOSE (AUTOMATED)2019-11-05 01:48:00 Test Item Value Reference Range Interpretation Comments POCT GLU (test code = 6515770204) 227 mg/dL 70-110 H Lab Interpretation (test code = Abnormal 45521-6) [facility] GLUCOSE (AUTOMATED)2019-11-04 22:30:00 Test Item Value Reference Range Interpretation Comments POCT GLU (test code = 2374997229) 132 mg/dL 70-110 H Lab Interpretation (test code = Abnormal 81841-4) [facility] GLUCOSE (AUTOMATED)2019-11-04 17:24:00 Test Item Value Reference Range Interpretation Comments POCT GLU (test code = 0043326014) 213 mg/dL 70-110 H Lab Interpretation (test code = Abnormal 60019-2) [facility] GLUCOSE (AUTOMATED)2019-11-04 13:31:00 Test Item Value Reference Range Interpretation Comments POCT GLU (test code = 9577300134) 203 mg/dL 70-110 H Lab Interpretation (test code = Abnormal 54572-3) [facility] GLUCOSE (AUTOMATED)2019-11-04 12:03:00 Test Item Value Reference Range Interpretation Comments POCT GLU (test code = 4320405743) 213 mg/dL 70-110 H Lab Interpretation (test code = Abnormal 50676-2) [facility]-11-03 23:50:00 Test Item Value [...] Indicated Lab Interpretation Abnormal (test code = 70878-4) [facility] 23:28:00 Test Item Value Reference Range Interpretation Comments POCT GLU (test code = 5356945894) 273 mg/dL 70-110 H Lab Interpretation (test code = Abnormal 77728-1) [facility] W [id number] 18:01:52CT Abdomen and Pelvis with intravenous contrast. [...] Rhoades in the emergency room at 12:00. [facility], Radiant Results Inft User - 11/03/2019 [...] Dr. Rhoades in the emergency room at 12:00.[facility]-19 16:23:00 Test Item Value Reference Range Interpretation Comments APPEARANCE (test code = Clear Clear 1289965504) COLOR (test code = Yellow Yellow 5087201527) PH (test code = 4.8-8.0 0699110111) SP GRAVITY (test code = 1.003-1.030 1008059355) GLU U QUAL (test code = 500 mg/dL Normal A 3049478811) BLOOD (test code = Negative Negative 4500761464) KETONES (test code = Negative Negative 2628325642) PROTEIN (test code = Negative Negative 2887-8) UROBILIN (test code = Normal Normal 8525919151) BILIRUBIN (test code = Negative Negative 4049822303) NITRITE (test code = Negative Negative 3182169157) LEUK BIANCA (test code = Negative Negative 2059827537) RBC/HPF (test code = See_Comment [Autom ated message] 0065928613) The system [email or web address] generated this result transmit yelena reference range : 0 - 3 HPF. The refe rence range was not u sed to interpret th is result as normal/abnormal . WBC/HPF (test code = See_Comment [Autom ated message] 2165928106) The system [email or web address] generated this result transmit yelena reference range : 0 - 5 HPF. The refe rence range was not u sed to interpret th is result as normal/abnormal . BACTERIA (test code = Negative Negative 1073276341) MUCOUS (test code = Slight Negative LPF A 9902773617) SQ EPITH (test code = <1 HPF 2163651014) Lab Interpretation (test Abnormal code = 02053-5) [facility] [place], [place]. METABOLIC PANEL (72924)2019-11-03 16:04:00 Test Item Value Reference Range Interpretation Comments NA (test code = 137 mmol/L 135-145 5726913130) K (test code = 4.3 mmol/L 3.5-5 1509087147) CL (test code = 98 mmol/L 98-108 6084527510) CO2 TOTAL (test code = 28 mmol/L 23-31 2890346825) AGAP (test code = 2-16 0586095324) BUN (test code = 11 mg/dL 7-23 8344572664) GLUCOSE (test code = 356 mg/dL 70-110 H 0383362465) CREATININE (test code = 1.01 mg/dL 0.6-1.25 9252167979) TOTAL BILI (test code = 0.9 mg/dL 0.1-1.7 6664065164) CALCIUM (test code = 9.1 mg/dL 8.6-10.6 1571635842) T PROTEIN (test code = 7.5 g/dL 6.3-8.2 2790327216) ALBUMIN (test code = 4.7 g/dL 3.5-5 0725884429) ALK PHOS (test code = 73 U/L 34-122 3829317933) ALTv (test code = 38 U/L 5-50 1742-6) AST(SGOT) (test code = 25 U/L 13-40 1629084186) eGFR Calculation mL/min/1.73m2 (Non-) (test code = 1555052573) eGFR Calculation mL/min/1.73m2 () (test code = 0361078775) KATE (test code = KATE) Association of [...] tests). Lab Interpretation Abnormal (test code = 81707-6) [facility] 16:03:00 Test Item Value Reference Range Interpretation Comments LIPASE (test code = 2083449757) 48 U/L 0-220 Lab Interpretation (test code = Normal 33769-8) [facility] WITH SCZNVNWCQTLC4182-89-06 15:51:00 Test Item Value Reference Range Interpretation [...] (test code = 37.8 fL 38.5-51.6 L 14995-0) RDW-CV (test code = 12.7 % 12.1-15.4 788-0) PLT (test code = See_Comment [Automated 777-3) message] The system which generated this result transmit yelena reference range : 150 - 328 10*3/ ?L. The reference range was not u sed to interpret th is result as normal/abnormal . MPV (test code = 10.9 fL 9.8-13 44868-4) NRBC/100 WBC (test See_Comment [Automat ed code = 5911062019) message] The system which generated this result transmit yelena reference range : 0.0 - 10.0 /100 WBCs. The reference range was not used to interpret this result as normal/abnormal . NRBC x10^3 (test code <0.01 See_Comment [Auto mated = 4094400127) message] The system which generated this result transmit yelena reference range : 10*3/?L. The reference range was not used to interpret this result as normal/abnormal . GRAN MAT (NEUT) % 91.5 % (test code = 770-8) IMM GRAN % (test code 0.50 % = 8374394036) LYMPH % (test code = 3.9 % 736-9) MONO % (test code = 3.8 % 5905-5) EOS % (test code = 0.1 % 713-8) BASO % (test code = 0.2 % 706-2) GRAN MAT x10^3(ANC) 12.89 10*3/uL 1.99-6.95 H (test code = 0767098138) IMM GRAN x10^3 (test 0.07 10*3/uL 0-0.06 H code = 0570002047) LYMPH x10^3 (test code 0.55 10*3/uL 1.09-3.23 L = 731-0) MONO x10^3 (test code 0.54 10*3/uL 0.36-1.02 = 742-7) EOS x10^3 (test code = <0.03 0.06-0.53 L 711-2) BASO x10^3 (test code 0.03 10*3/uL 0.01-0.09 = 704-7) Lab Interpretation Abnormal (test code = 15653-0) [facility]
[2021-11-16 17:08] LABS: Absolute Lymphocytes (CBC) 1.3 K/uL (0.7-4.9); Hematocrit 43.3 % (39.6-49.0); Lymphocytes % 18.7 % (15.3-44.8); RBC Red Blood Cell Count 5.36 M/uL (4.33-5.43)
[2021-11-16 17:18] LABS: Protime INR 1.02
[2021-11-16 17:29] LABS: Albumin 3.5 g/dL (3.4-5.0); Bilirubin Direct 0.1 mg/dL (0-0.2); Bilirubin Total 0.5 mg/dL (0.2-1.0); Potassium 3.6 mmol/L (3.5-5.1); Protein, Total 6.9 g/dL (6.4-8.2)
--- NOTE | 2021-11-16 18:05 | EDPHYS ---
Physician Documentation [facility] Name: Chente Minaya Age: 51 yrs Sex: Male : 1970 Arrival Date: 11/16/2021 Time: 16:19 Bed 24 Private MD: BRYAN Physician Saurav Blount HPI: 11/16 16:45 This 51 yrs old Male presents to ER via Ambulatory with complaints of Foreign Body In cp Throat - food stuck. 16:45 The patient or guardian reports the patient has a suspected foreign body, of the cp throat. The reported likely foreign body is piece of steak finger. 16:45 Onset: The symptoms/episode began/occurred just prior to arrival. Current symptoms: cp foreign body sensation. Treatment Prior to Arrival: tried to vomit. The patient has experienced similar episodes in the past, multiple times, patient reports with last episode he was given medication to help resolve food bolus. Historical: - Allergies: 16:30 Bactrim; ritchie 16:30 mushroom; ritchie 16:30 PENICILLINS; ritchie 16:30 Reglan; ritchie 16:30 Sulfa (Sulfonamide Antibiotics); ritchie 16:30 surgical steel; ritchie 16:30 tramadol; ritchie 16:30 Tylenol-Codeine #3; ritchie 16:30 Tylenol-Codeine #4; ritchie 16:30 Mustard; ritchie - Home Meds: 16:30 anastrozole Oral [Active]; betablocker [Active]; carvedilol Oral [Active]; Esgic Oral ritchie [Active]; Fioricet Oral [Active]; levemir [Active]; Levemir FlexTouch U-100 Insulin 30 units subcutaneous twice a day [Active]; losartan Oral [Active]; losartan 50 mg Oral tab 1 tab once daily [Active]; ondansetron HCl 4 mg Oral tab [Active]; propranolol 40 mg Oral tab 1 tab 2 times per day [Active]; Propranolol Oral [Active]; testosterone [Active]; Testosterpme injection Weekly [Active]; - Immunization history:: Adult Immunizations up to date. - Social history:: Smoking status: Patient denies any tobacco usage or history of. ROS: 16:50 ENT: Positive for difficulty swallowing, swallowed foreign body sensation, Negative for cp drainage from ear(s), ear pain, difficulty handling secretions. 16:50 Eyes: Negative for injury, pain, redness, and discharge. cp 16:50 Constitutional: Negative for body aches, chills, fever, poor PO intake. 16:50 Neck: Negative for pain with movement, pain at rest, stiffness. 16:50 Cardiovascular: Negative for chest pain, edema, palpitations. 16:50 Respiratory: Negative for cough, shortness of breath, wheezing. 16:50 Abdomen/GI: Negative for abdominal pain, vomiting, diarrhea, constipation. 16:50 Neuro: Negative for altered mental status, headache, weakness. 16:50 All other systems are negative. Exam: 16:50 Head/Face: Normocephalic, atraumatic. cp 16:50 Constitutional: The patient appears in no acute distress, alert, awake, comfortable, non-diaphoretic, non-toxic, well developed, well nourished, no signs of respiratory distress 16:50 Eyes: Periorbital structures: appear normal, Conjunctiva: normal, no exudate, no injection, Sclera: no appreciated abnormality, Lids and lashes: appear normal, bilaterally. 16:50 ENT: External ear(s): are unremarkable, Nose: is normal, Mouth: Lips: Oral mucosa: moist, Posterior pharynx: Airway: no evidence of obstruction, patent, swelling, is not appreciated, erythema, is not appreciated, exudate, is not appreciated. 16:50 Neck: ROM/movement: is normal, is supple, without pain, no range of motions limitations. 16:50 Chest/axilla: Inspection: normal, Palpation: is normal, no crepitus, no tenderness. 16:50 Cardiovascular: Rate: normal, Rhythm: regular, Heart sounds: murmur, not appreciated, Edema: is not appreciated, JVD: is not appreciated. 16:50 Respiratory: the patient does not display signs of respiratory distress, Respirations: normal, no use of accessory muscles, no retractions, labored breathing, is not present, Breath sounds: are clear throughout, no decreased breath sounds, no stridor, no wheezing. 16:50 Abdomen/GI: Inspection: abdomen appears normal, Palpation: abdomen is soft and non-tender, in all quadrants. 16:50 Back: pain, is absent, ROM is normal. 16:50 Neuro: Orientation: to person, place \\T\\ time. Mentation: is normal, Motor: moves all fours, strength is normal, Sensation: is normal. Vital Signs: 16:28 BP 153 / 96; Pulse 97; Resp 18; Temp 98.6(O); Pulse Ox 100% ; Weight 138.8 kg; Height 6 ritchie ft. 2 in. (187.96 cm); 17:14 BP 139 / 90; Pulse 88; Resp 18; Pulse Ox 98% on R/A; ritchie 16:28 Body Mass Index 39.29 (138.80 kg, 187.96 cm) ritchie MDM: 16:32 Patient medically screened. cp 18:00 Physician consultation: Jere Rader MD was called at 18:00, unable to leave message cp on voicemail. 18:35 Physician consultation: Jere Rader MD was contacted at 18:35, regarding patient's cp condition, requests patient be admitted to outpatient surgery for endoscopy. 18:35 Data reviewed: vital signs, nurses notes, lab test result(s), radiologic studies, plain cp films. Test interpretation: by ED physician or midlevel provider: chest xray negative for infiltrates. 11/16 16:35 Order name: Basic Metabolic Panel; Complete Time: 17:32 cp 04 17:32 Interpretation: Normal except: GLUC 283; GFR 61; CA 8.4. cp 11/16 16:35 Order name: CBC with Diff; Complete Time: 17:32 cp 11/16 16:35 Order name: Hepatic Function; Complete Time: 17:32 cp 11/16 16:35 Order name: PT-INR; Complete Time: 17:32 cp 11/16 16:35 Order name: XRAY Chest (1 view); Complete Time: 19:11 cp / 19:11 Interpretation: Report review. cp 11/16 18:11 Order name: COVID-19/FLU A+B (Document "Date of Onset" if Symptomatic) cs9 11/16 16:35 Order name: IV Saline Lock; Complete Time: 17:00 cp 11/16 16:35 Order name: Labs collected and sent; Complete Time: 17:00 cp 11/16 16:35 Order name: EKG; Complete Time: 16:36 cp 11/16 16:35 Order name: EKG - Nurse/Tech; Complete Time: 17:14 cp 11/16 18:05 Order name: NPO; Complete Time: 18:34 cp Administered Medications: 16:59 Drug: GlucaGen (glucagon) 1 mg Route: IVP; Site: left antecubital; ritchie 17:00 Follow up: Response: No adverse reaction ritchie 16:59 Drug: Zofran (Ondansetron) 4 mg Route: IVP; Site: left antecubital; ritchie 17:00 Follow up: Response: No adverse reaction ritchie 17:00 Drug: NS 0.9% 500 ml Route: IV; Rate: 500 ml/hr; Site: left antecubital; ritchie 18:29 Drug: GlucaGen (glucagon) 1 mg Route: IVP; Site: left antecubital; ritchie 18:29 Follow up: Response: No adverse reaction ritchie 18:29 Drug: NS 0.9% 1000 ml Route: IV; Rate: 125 ml/hr; Site: left antecubital; ritchie Disposition Summary: 11/16/21 18:05 Hospitalization Ordered Hospitalization Status: Observation cp Provider: Jere Rader cp Location: DAY SURGERY OTHER cp Condition: Stable cp Problem: new cp Symptoms: are unchanged cp Bed/Room Type: Standard cp Room Assignment: cp Diagnosis - Foreign body in esophagus cp Forms: - Medication Reconciliation Form cp - SBAR form cp Signatures: Dispatcher [employer] EDMS Saruav Burgess PA PA cp Michelle-Kalee Hilliard RN RN ritchie Corrections: (The following items were deleted from the chart) 16:33 16:30 PMHx: GERD; ritchie ritchie 16:33 16:30 PMHx: Diabetes - NIDDM; ritchie ritchie 16:33 16:30 PMHx: neuropathy; ritchie ritchie 16:33 16:30 PMHx: Migraines; ritchie ritchie 16:33 16:30 PMHx: Depression; ritchie ritchie 16:33 16:30 PMHx: food bolus; ritchie ritchie 16:33 16:30 PMHx: hiatal hernia; ritchie ritchie 16:33 16:30 PMHx: CHF; ritchie ritchie 16:33 16:30 PSHx: Appendectomy; ritchie ritchie 16:33 16:30 PSHx: multiple upper GI procedures; ritchie ritchie 17:32 17:32 Normal except: GLUC 283; GFR 61. cp cp
--- NOTE | 2021-11-16 18:05 | ER ---
Nurse's Notes [facility] Name: Chente Minaya Age: 51 yrs Sex: Male : 1970 Arrival Date: 11/16/2021 Time: 16:19 Bed 24 Private MD: Diagnosis: Foreign body in esophagus Presentation: 11/16 16:28 Chief complaint: Patient states: Pt presented to ED reporting food stuck in his throat. ritchie Coronavirus screen: Vaccine status: Patient reports being unvaccinated. Ebola Screen: Patient denies travel to an Ebola-affected area in the 21 days before illness onset. Initial Sepsis Screen: Does the patient meet any 2 criteria? No. Patient's initial sepsis screen is negative. Does the patient have a suspected source of infection? No. Patient's initial sepsis screen is negative. Risk Assessment: Do you want to hurt yourself or someone else? Patient reports no desire to harm self or others. Onset of symptoms was November 16, 2021. 16:28 Method Of Arrival: Ambulatory ritchie 16:28 Acuity: GILDARDO 3 ritchie Triage Assessment: 16:30 General: Appears in no apparent distress. Behavior is calm, cooperative. Pain: Denies ritchie pain. Historical: - Allergies: 16:30 Bactrim; ritchie 16:30 mushroom; ritchie 16:30 PENICILLINS; ritchie 16:30 Reglan; ritchie 16:30 Sulfa (Sulfonamide Antibiotics); ritchie 16:30 surgical steel; ritchie 16:30 tramadol; ritchie 16:30 Tylenol-Codeine #3; ritchie 16:30 Tylenol-Codeine #4; ritchie 16:30 Mustard; ritchie - Home Meds: 16:30 anastrozole Oral [Active]; betablocker [Active]; carvedilol Oral [Active]; Esgic Oral ritchie [Active]; Fioricet Oral [Active]; levemir [Active]; Levemir FlexTouch U-100 Insulin 30 units subcutaneous twice a day [Active]; losartan Oral [Active]; losartan 50 mg Oral tab 1 tab once daily [Active]; ondansetron HCl 4 mg Oral tab [Active]; propranolol 40 mg Oral tab 1 tab 2 times per day [Active]; Propranolol Oral [Active]; testosterone [Active]; Testosterpme injection Weekly [Active]; - Immunization history:: Adult Immunizations up to date. - Social history:: Smoking status: Patient denies any tobacco usage or history of. Screenin:34 Abuse screen: Denies threats or abuse. Denies injuries from another. Nutritional ritchie screening: No deficits noted. Tuberculosis screening: No symptoms or risk factors identified. Fall Risk None identified. Vital Signs: 16:28 BP 153 / 96; Pulse 97; Resp 18; Temp 98.6(O); Pulse Ox 100% ; Weight 138.8 kg; Height 6 ritchie ft. 2 in. (187.96 cm); 17:14 BP 139 / 90; Pulse 88; Resp 18; Pulse Ox 98% on R/A; ritchie 16:28 Body Mass Index 39.29 (138.80 kg, 187.96 cm) ritchie ED Course: 16:19 Patient arrived in ED. am2 16:30 Saurav Burgess PA is PHCP. cp 16:30 Saurav Blount MD is Attending Physician. cp 16:30 Triage completed. ritchie 16:30 Arm band placed on. ritchie 16:34 Patient has correct armband on for positive identification. Bed in low position. ritchie 16:34 No provider procedures requiring assistance completed. ritchie 16:44 XRAY Chest (1 view) In Process Unspecified. EDMS 17:00 PT-INR Sent. ritchie 17:00 Basic Metabolic Panel Sent. ritchie 17:00 CBC with Diff Sent. ritchie 17:01 Hepatic Function Sent. ritchie 18:03 Jere Rader MD is Hospitalizing Provider. cp 18:34 COVID-19/FLU A+B (Document "Date of Onset" if Symptomatic) Sent. ritchie 19:12 Patient admitted, IV remains in place. ritchie Administered Medications: 16:59 Drug: GlucaGen (glucagon) 1 mg Route: IVP; Site: left antecubital; ritchie 17:00 Follow up: Response: No adverse reaction ritchie 16:59 Drug: Zofran (Ondansetron) 4 mg Route: IVP; Site: left antecubital; ritchie 17:00 Follow up: Response: No adverse reaction ritchie 17:00 Drug: NS 0.9% 500 ml Route: IV; Rate: 500 ml/hr; Site: left antecubital; ritchie 18:29 Drug: GlucaGen (glucagon) 1 mg Route: IVP; Site: left antecubital; ritchie 18:29 Follow up: Response: No adverse reaction ritchie 18:29 Drug: NS 0.9% 1000 ml Route: IV; Rate: 125 ml/hr; Site: left antecubital; ritchie Outcome: 18:05 Decision to Hospitalize by Provider. cp 19:11 Admitted to OR ritchie 19:11 Condition: stable 19:11 Instructed on 19:12 Patient left the ED. ritchie Signatures: Dispatcher [employer] EDMS Saurav Burgess PA PA cp Moreno, Amanda am2 Kalee Riley RN RN ritchie Corrections: (The following items were deleted from the chart) 16:33 16:30 PMHx: GERD; ritchie ritchie 16:33 16:30 PMHx: Diabetes - NIDDM; ritchie ritchie 16:33 16:30 PMHx: neuropathy; ritchie ritchie 16:33 16:30 PMHx: Migraines; ritchie ritchie 16:33 16:30 PMHx: Depression; ritchie ritchie 16:33 16:30 PMHx: food bolus; ritchie ritchie 16:33 16:30 PMHx: hiatal hernia; ritchie ritchie 16:33 16:30 PMHx: CHF; ritchie ritchie 16:33 16:30 PSHx: Appendectomy; ritchie ritchie 16:33 16:30 PSHx: multiple upper GI procedures; ritchie ritchie
--- NOTE | 2021-11-16 18:14 | RAD REPORT ---
EXAM DESCRIPTION: Manoj Single View11/16/2021 4:45 pm CLINICAL HISTORY: Esophageal foreign body COMPARISON: 2020 FINDINGS: The lungs appear clear of acute infiltrate. The heart is normal size. Chronic elevation r ight hemidiaphragm A radiopaque foreign body is not clearly seen. However, this examination is extremely limited to dete ct one IMPRESSION: No acute abnormalities displayed
[2021-11-16 19:57] LABS: SARS-COV-2 RT PCR NEGATIVE (NEGATIVE)
--- NOTE | 2021-11-16 20:46 | ENDO RPT ---
[address], [address] EGD PROCEDURE REPORT EXAM DATE: 11/16/2021 PATIENT NAME: Chente Minaya MR#: [id number] BIRTHDATE: 1970 ATTENDING: Jere Rader Dr STATUS: outpatient BACKUP SAWYER: Salome Jang RN INDICATIONS: The patient is a 51 yr old Male here for an EGD due to dysphagia and foreign body (esophageal meat impaction) PROCEDURE PERFORMED: EGD, diagnostic MEDICATIONS: Per Anesthesia. TOPICAL ANESTHETIC: none CONSENT: The patient understands the risks and benefits of the procedure and understands that these risks include, but are not limited to: sedation, allergic reaction, infection, perforation and/or bleeding. Alternative means of evaluation and treatment include, among others: physical exam, x-rays, and/or surgical intervention. The patient elects to proceed with this endoscopic procedure. DESCRIPTION OF PROCEDURE: During intra-op preparation period all mechanical medical equipment was checked for proper function. Hand hygiene and appropriate measures for infection prevention was taken. Procedure, possible complications, and alternatives including but not limited to the possibility of bleeding, perforation, tear, infection, sepsis, need for surgery, need for blood transfusion, and anesthesia related complications were explained to the patient. After the risks, benefits and alternatives of the procedure were thoroughly explained, Informed consent was verified, confirmed and timeout was successfully executed by the treatment team. The patient was placed in the left lateral position. The patient was anesthetized with topical anesthesia. Through the anesthetized oropharyngeal area, the scope was passed without any difficulty. The EG-[id number] ([id number]) endoscope was introduced through the mouth and advanced to the second portion of the duodenum. Retroflexed views revealed a moderate sized hiatal hernia. The gastroscope was then slowly withdrawn and removed. LA Class C esophagitis was found in the lower esophagus. Large 2 cm shallow clean-based ulcer was found in the lower esophagus. A moderate stricture was found in the lower esophagus. A moderate sized hiatal hernia was found. 1.5 cm meat bolus (steak finger) with surrounding fibrous oily debris / food was found in the body of the stomach. Mild gastritis was found in the body and the antrum of the stomach. ADVERSE EVENTS: There were no complications. IMPRESSIONS: 1. LA class C esophagitis in the lower esophagus 2. Large 2 cm shallow clean-based ulcer in the lower esophagus 3. Moderate stricture in the lower esophagus 4. Moderate sized hiatal hernia (GEJ at 35 cm, DI at 40 cm from the incisors) 5. 1.5 cm meat bolus (steak finger) with surrounding fibrous oily debris / food in the body of the stomach 6. Mild gastritis was found in the body and the antrum of the stomach RECOMMENDATIONS: 1. await biopsy results 2. acid suppression therapy REPEAT EXAM: Jere Rader Dr eSigned: Jere Rader Dr 11/16/2021 8:45 PM cc: CPT CODES: ICD9 CODES: PATIENT NAME: Chente Minaya MR#: [id number]
[2021-11-16 20:48] VITALS: TEMP 97.8; O2SAT 98
[2021-11-16 20:51] VITALS: BP 122/62
--- NOTE | 2021-11-17 01:43 | CON ---
Date of Consultation: 11/16/2021 Reason For Consultation: Dysphagia with esophageal meat impaction. 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 The patient presents now with dysphagia to solids, liquids, and saliva after eating a raúl ak finger at approximately 12 noon today. The patient came to the hospital complaining of once again having this dysphagia after eating steak finger, could not swallow his own saliva even in addition t o the of solids or liquids. The patient was tried on IV glucagon and other medications in the emerge ncy room to relieve dysphagia including trying to drink fluids, but this did not relieve it. He now presents for repeat endoscopy to remove food bolus from the esophagus. Past Medical History: Significant for diabetes, hypertension, obesity, congestive heart failure, and repeated esophageal meat or food bolus impactions requiring EGDs for removal of food bolus. Medications: Include medications for diabetes, hypertension, and congestive heart failure. Allergies: TO TYLENOL, COCONUT OIL, CODEINE, AND MUSHROOMS. Social History: He is a . He has 3 children. No tobacco. Occasional alcohol. Family History: Father alive, with diabetes and hypertension. Mother is alive and well. Review of Systems: He has dysphagia to solids, liquids, and saliva. He denies any fevers, chills, night sweats, melena, hematochezia, hematemesis, coffee-ground emesis, hematuria, dysuria, polydipsia, chest pain, shortne ss of breath, seizure, syncope, headaches, muscle aches, joint aches, backaches, depression, and anxi ety. Physical Examination: Vital Signs: He is 6 feet 2 inches, 302 pounds, temperature of 97.8 degrees Fahrenheit, pulse rate 9 5, respirations 18, blood pressure 122/62, O2 saturation 98% to 100%. General: He is an obese male lying in bed, with mild distress with his food bolus, cannot swallow sa liva well. HEENT: Normocephalic, atraumatic. Anicteric. Pupils are equal, round, and reactive to light. Extr aocular movements are intact. Oropharynx clear. Neck: Supple, no masses. Respirations: Clear to auscultation bilaterally. Cardiac: Regular rate and rhythm. Gastrointestinal: Positive bowel sounds. Soft, nontender, nondistended. No hepatosplenomegaly. No peritoneal or Randolph sign. No rebound. Extremities: No clubbing, cyanosis, or edema. 2+ pulses. Neuro: Alert and oriented x3. Grossly nonfocal. 5/5 motor. Sensation intact to light touch. Laboratory Data: Patient has a white count of 7.2, hemoglobin of 14.6, hematocrit of 43, MCV of 81, platelet count 183, polys of 75%, lymphocytes 19%, monocytes 4%, eosinophils 2%. He has a PT of 11.7 , INR of 1.02. He has sodium 137, potassium 3.6, chloride 102, bicarb 30, BUN 7, creatinine of 1.25, glucose 283, calcium 8.4, total bilirubin 0.5, direct bilirubin 0.1, AST of 15, ALT 33, alkaline mirella sphatase 58, total protein 6.9, albumin 3.4, globulin 3.4. Influenza A and B negative. COVID testin g was negative. Chest x-ray was reportedly negative. I do not have report as [employer] is not workin g on these computers unfortunately. Impression: 1.Dysphagia to solids, liquids, and saliva after eating a steak finger today at 12 noon. He has eso phageal meat impaction. We will need to address with esophagogastroduodenoscopy removal of meat bolu s once again. 2.History of diabetes, hypertension, obesity, congestive heart failure, recurrent esophageal meat leilani micheline impaction/dysphagia. The patient needs to also come for outpatient followup for esophageal dilat ations and stay on therapy for probable solid reflux. Recommendation: 1.EGD now. 2.Continue IV fluids. 3.Keep the patient n.p.o. 4.Patient to followup in GI Clinic for long-term care of this esophageal stricture, and probable ref lux-induced changes in the esophagus. WS/MODL Voice ID: [id number] Report ID: [id number]
--- NOTE | 2021-11-17 12:45 | EKG ---
Test Date: 2021-11-16 Test Time: 17:15:30 Stone Cutter: ANISA MEASUREMENT RESULTS: Intervals: Rate: 89 MS: 156 QRSD: 90 QT: 364 QTc: 442 [place]: P: 49 MS: 156 QRS: -23 T: 34 INTERPRETIVE STATEMENTS: Normal sinus rhythm Normal ECG Compared to ECG 08/11/2021 21:33:46 Left-axis deviation no longer present Electronically Signed On 11-17-21 12:44:52 PATTERN MOLDER by Myles Hemphill
== END ==
LOC: ER 16:17 → OR 18:03 → ER 20:15
PROVIDERS: ATTEND Internal Medicine Gastroenterology
PROC: 0DJ08ZZ Inspection of Upper Intestinal Tract, Via Natural or Artificial Opening Endoscopic (ICD-10-PCS; principal; 2021-11-16 19:00)
DX: R13.14 Dysphagia, pharyngoesophageal phase (principal); T18.128A Food in esophagus causing other injury, initial encounter; Z20.822 Contact with and (suspected) exposure to COVID-19; K22.10 Ulcer of esophagus without bleeding; K44.9 Diaphragmatic hernia without obstruction or gangrene; K29.70 Gastritis, unspecified, without bleeding
CPT/HCPCS: 43235; 93005; 85025; 80048; 36415; 85610; 80076; 0240U; 71045; 96375; 96374; 99285; J2704; J1610 ×2; J7040; J7030 ×2; J2405

== ENCOUNTER 2022-01-22 09:03 | Emergency (ER) | payer OTHER ==
--- OUTSIDE RECORDS SUMMARY | 2022-01-22 09:08 | XMS REPORT | Continuity of Care Document ---
:1970 Author Organization [facility] t Address [address] Pandey [address] [place] [id number] Care Team Providers Name Role Phone PCP, DOES NOT HAVE A Primary Care Physician Unavailable ANENE Attending Clinician Unavailable Luz Maria Bernal MD Attending Clinician LUZ MRAIA BERNAL Attending Clinician Unavailable LUZ MARIA BERNAL [...] Treatment Clinician Date Abdominal Abdominal Disease Active NPI :183 pain pain 2-20 [id number] 00:00: 00 Obesity Obesity Disease Active NPI:183 (BMI (BMI 2-19 2392094 30-39.9) 30-39.9) 00:00: 00 Acute Acute Disease Active NPI:183 postoperat postoperat 2-19 13 98805 momo momo 00:00: abdominal abdominal 00 pain pain Morbid Morbid Disease Active 2015-09 NPI:183 obesity obesity 1-29 [id number] with body with body 00:00: mass index mass index 00 of 50 or of 50 or higher higher Allergies, Adverse Reactions, Alerts Allergy Allergy Status Severity Reaction(s) Onset Inactive Treating Comm ents Source Name Type Date Date Clinician SULFA Drug Active Hives NPI:183 (SULFONA Class 1-21 [id number] MIDE 00:00: ANTIBIOT 00 ICS) ACETAMIN DRUG Active Hives NPI:183 OPHEN-CO - [id number] DEINE 00:00: 00 Sulfa Propensi Active Hives NPI:183 (Sulfona ty to 10-05 [id number] mide adverse 00:00: Antibiot reaction 00 ics) s Acetamin Propensi Active Hives NPI:18 3 ophen-Co ty to 10-05 7302107 deine adverse 00:00: reaction 00 s Penicill Propensi Active Hives NPI:18 3 ins ty to 8-10 6632561 adverse 00:00: reaction 00 s PENICILL Drug Active Hives NPI:183 INS Class 8-10 [id number] 00:00: 00 SULFA DRUG Active Hives NPI:183 DYNE 8-10 [id number] 00:00: 00 Sulfa Propensi Active Hives NPI:183 Dyne ty to 8-10 [id number] adverse 00:00: reaction 00 s Social History Social Habit Start Date Stop Date Quantity Comments Source Exposure to Not sure NPI:[id number] 1 SARS-CoV-2 (event) Sex Assigned At NPI:[id number] 31873 Tobacco use and 2020-04-24 2020-04-24 Never used NPI:[id number] 74227 exposure 00:00:00 00:00:00 Alcohol intake 2020-04-24 2020-04-24 Current drinker NPI:1 [id number] 00:00:00 00:00:00 of alcohol (finding) History SDOH 2019-11-03 2019-11-03 5 NPI:[id number] Financial 00:00:00 00:00:00 Smoking Status Start Date Stop Date Source Former smoker 2020-04-24 00:00:00 2020-04-24 00:00:00 NPI:1831 [id number] Medications Ordered Filled Start Stop Current Ordering Indication Dosage Frequency Signature Comments Components Source Medication Medication Date Date Medication? Clinician (SIG) Name Name divalproex 2020-0 Yes [id number] 250mg Take 1 NPI:183 ER 250 mg 8-[place] [address] 81 24 hr 00:00: mouth 2 tablet 00 (two) times daily. divalproex 2020-0 Yes [id number] 250mg Take 1 NPI:183 ER 250 mg 8-10 [place] 43075 81 24 hr 00:00: mouth 2 tablet 00 (two) times daily. water for 2020-0 Yes PRN, NPI:183 irrigation 7-24 Starting 29849 81 irrigation 03:19: Angelina solution 00 04/06/20 at 2219, Until Discontinu ed, Routine, Intra-op simethicone 2020-0 Yes PRN, NPI:18 3 (GAS RELIEF 04-07 Starting 1318 781 (SIMETHICON 03:19: Angelina E)) 40 00 04/06/20 at mg/0.6 mL 2219, drops Until Discontinu ed, Routine, Intra-op glucagon 2020-0 2020- No 1mg 1 mg, NPI:183 (GLUCAGEN 04-07 07-24 Intravenou 131 8781 DIAGNOSTIC 02:45: 01:56 s, ONCE, 1 KIT) 00 :00 dose, Angelina injection 1 04/06/20 at mg 2145, Routine glucagon 2020-0 2020- No 1mg 1 mg, NPI:183 (GLUCAGEN 04-07 0724 Intravenou 131 8781 DIAGNOSTIC 01:45: 00:47 s, ONCE, 1 KIT) 00 :00 dose, Angelina injection 1 04/06/20 at mg 2045, Routine HYDROcodone 2020-0 2020- No 1{tbl} 1 tablet, NPI:183 -acetaminop 6-07 06-07 Oral, [id number] 1 hen (NORCO 01:15: 00:11 ONCE, 1 5) 5-325 mg 00 :00 dose, Sat tablet 1 02/19/20 at tablet 2015, MANDEEP NaCl 0.9% 2020-0 2020- No 1000mL at 999 NPI :183 (NS) bolus 6-06 06-06 mL/hr, [id number] 1 infusion 23:00: 23:28 1,000 mL, 1,000 mL 00 :00 IV Infusion, ONCE, 1 dose, 02/19/20 at 1800, STAT morpHINE 2019-2019- No 4mg 4 mg, Slow CLINICAL REHAB LIAISON I:183 injection 4 02-18 IV Push, 131 8781 mg 23:00: 22:01 ONCE, 1 00 :00 dose, 02/19/20 at 1800, STAT insulin 2019- No 10U 10 Units, NPI: 183 regular 02-18 Subcutaneo 16221 81 human 22:45: 21:54 us, ONCE, (HUMULIN R) 00 :00 1 dose, injection 02/19/20 10 Units at 1745, STAT NaCl 0.9% No 1000mL at 999 NPI :183 (NS) bolus 02-18 mL/hr, [id number] 1 infusion 21:45: 23:27 1,000 mL, 1,000 mL 00 :00 IV Infusion, ONCE, 1 dose, 02/19/20 at 1645, STAT ondansetron No 4mg 4 mg, Slow NPI:183 (ZOFRAN 02-18 IV Push, [id number] (PF)) 21:45: 20:51 ONCE, 1 injection 4 00 :00 dose, Sat mg 02/19/20 at 1645, MANDEEP FENTanyl PF No 25ug 25 mcg, CLINICAL REHAB LIAISON I:183 ([place]IMA[place] 02-[place] [address] 81 (PF)) 21:45: 20:50 Push, injection 00 :00 ONCE, 1 25 mcg dose, 02/19/20 at 1645, STAT clindamycin 2019- No 900mg 900 mg, IV NPI:183 in 5 % 02-18 Piggyback, 229170 1 dextrose 21:45: 21:21 ONCE, 1 (CLEOCIN) 00 :00 dose, Sat 900 mg/50 02/19/20 at mL IV 1645, 50 piggyback mL
Reas RTU 900 mg on for Anti-Infec tive: Documented Infection< br>Documen yelena Infection Site: Skin / Soft Tissue
Duration of Therapy: Other (see Comments)< br>Restric yelena use approved by: ADC PROVIDER acetaminoph 2020-0 2020- No 1000mg 1,000 mg, NPI:183 en 6- 06-06 Oral, [id number] (TYLENOL) 21:30: 20:30 ONCE, 1 tablet 00 :00 dose, Sat 1,000 mg 02/19/20 at 1630, MANDEEP traMADol 50 2019-0 Yes [id number] 50mg Take 1 NPI:183 mg tablet 6-06 [place] 43596 81 00:00: mouth 00 every 6 (six) hours as needed for Pain (scale 4-6). traMADol 50 2019-0 Yes [id number] 50mg Take 1 NPI:183 mg tablet 6-06 [place] 56788 81 00:00: mouth 00 every 6 (six) hours as needed for Pain (scale 4-6). traMADol 50 2019-0 Yes [id number] 50mg Take 1 NPI:183 mg tablet 6-06 [place] 55563 81 00:00: mouth 00 every 6 (six) hours as needed for Pain (scale 4-6). traMADol 50 2019-0 Yes [id number] 50mg Take 1 NPI:183 mg tablet 6-06 tablet [place] 04213 81 00:00: mouth 00 every 6 (six) hours as needed for Pain (scale 4-6). traMADol 50 2019-0 Yes [id number] 50mg Take 1 NPI:183 mg tablet 6-06 [place] 02806 81 00:00: mouth 00 every 6 (six) hours as needed for Pain (scale 4-6). traMADol 50 2019-0 Yes [id number] 50mg Take 1 NPI:183 mg tablet 6-06 [place] 84563 81 00:00: mouth 00 every 6 (six) hours as needed for Pain (scale 4-6). clindamycin 2019-0 2020- No [id number] 450mg Take 3 NPI:183 150 mg - 06-17 capsules [id number] capsule 00:00: 04:59 by mouth 3 00 :00 (three) times daily for 10 days. glipiZIDE 2019-0 Yes [id number] 10mg Take 1 CL[facility] REHAB LIAISON I:183 10 mg 2-22 tablet by [id number] tablet 00:00: mouth 2 00 (two) times daily before breakfast and dinner. HYDROcodone 2019-0 Yes [id number] 1{tbl} Take 1 NPI:183 -acetaminop 2-22 tablet by 131 8781 hen 5-325 00:00: mouth mg tablet 00 every 6 (six) hours as needed for Pain (scale 7-10). glipiZIDE 2020-0 Yes [id number] 10mg Take 1 CLINICAL REHAB LIAISON I:183 10 mg 2-22 tablet by 7988539 tablet 00:00: mouth 2 00 (two) times daily before breakfast and dinner. HYDROcodone 2020-0 Yes [id number] 1{tbl} Take 1 NPI:183 -acetaminop 2-22 tablet by 131 8781 hen 5-325 00:00: mouth mg tablet 00 every 6 (six) hours as needed for Pain (scale 7-10). glipiZIDE 2020-0 Yes [id number] 10mg Take 1 CLINICAL REHAB LIAISON I:183 10 mg 2-22 tablet by 7694816 tablet 00:00: mouth 2 00 (two) times daily before breakfast and dinner. HYDROcodone 2020-0 Yes [id number] 1{tbl} Take 1 NPI:183 -acetaminop 2-22 tablet by 131 8781 hen 5-325 00:00: mouth mg tablet 00 every 6 (six) hours as needed for Pain (scale 7-10). glipiZIDE 2020-0 Yes [id number] 10mg Take 1 CLINICAL REHAB LIAISON I:183 10 mg 2-22 tablet by 9874820 tablet 00:00: mouth 2 00 (two) times daily before breakfast and dinner. HYDROcodone 2020-0 Yes [id number] 1{tbl} Take 1 NPI:183 -acetaminop 2-22 tablet by 131 8781 hen 5-325 00:00: mouth mg tablet 00 every 6 (six) hours as needed for Pain (scale 7-10). glipiZIDE 2020-0 Yes [id number] 10mg Take 1 CLINICAL REHAB LIAISON I:183 10 mg 2-22 tablet by 2581151 tablet 00:00: mouth 2 00 (two) times daily before breakfast and dinner. HYDROcodone 2020-0 Yes [id number] 1{tbl} Take 1 NPI:183 -acetaminop 2-22 tablet by 131 8781 hen 5-325 00:00: mouth mg tablet 00 every 6 (six) hours as needed for Pain (scale 7-10). glipiZIDE 2020-0 Yes [id number] 10mg Take 1 CLIN[facility] REHAB LIAISON I:183 10 mg 2-22 tablet by 4494486 tablet 00:00: mouth 2 00 (two) times daily before breakfast and dinner. HYDROcodone 2020-0 Yes [id number] 1{tbl} Take 1 NPI:183 -acetaminop 2-22 tablet by 131 8781 hen 5-325 00:00: mouth mg tablet 00 every 6 (six) hours as needed for Pain (scale 7-10). glipiZIDE 2020-0 Yes [id number] 10mg Take 1 CLINICAL REHAB LIAISON I:183 10 mg 2-22 tablet by 8750516 tablet 00:00: mouth 2 00 (two) times daily before breakfast and dinner. HYDROcodone 2020-0 Yes [id number] 1{tbl} Take 1 NPI:183 -acetaminop 2-22 tablet by 131 8781 hen 5-325 00:00: mouth mg tablet 00 every 6 (six) hours as needed for Pain (scale 7-10). glipiZIDE 2020-0 Yes [id number] 10mg Take 1 CLINICAL REHAB LIAISON I:183 10 mg 2-22 tablet by 0605700 tablet 00:00: mouth 2 00 (two) times daily before breakfast and dinner. HYDROcodone 2019-0 Yes [id number] 1{tbl} Take 1 NPI:183 -acetaminop 2-22 tablet by 131 8781 hen 5-325 00:00: mouth mg tablet 00 every 6 (six) hours as needed for Pain (scale 7-10). glipiZIDE 2019-0 Yes [id number] 10mg Take 1 CLINICAL REHAB LIAISON I:183 10 mg 2-22 tablet by [id number] tablet 00:00: mouth 2 00 (two) times daily before breakfast and dinner. HYDROcodone 2019-0 Yes [id number] 1{tbl} Take 1 NPI:183 -acetaminop 2-22 tablet by 131 8781 hen 5-325 00:00: mouth mg tablet 00 every 6 (six) hours as needed for Pain (scale 7-10). ciprofloxac 2019-0 2020- No [id number] 500mg Take 1 NPI:183 in HCl 500 2-22 - tablet by 131 8781 mg tablet 00:00: 05:59 mouth 00 :00 every 12 (twelve) hours for 7 days. metroNIDAZO 2019-0 2020- No [id number] 500mg Take 1 NPI:183 LE 500 mg 2-22 - tablet by 1318 781 tablet 00:00: 05:59 mouth 2 00 :00 (two) times daily for 7 days. HYDROmorpho 2019-0 Yes 1mg 1 mg, Slow NPI:183 ne - IV Push, [id number] (DILAUDID) 15:33: Q6HPRN, injection 1 28 Starting mg Fri11/05/19 at 0933, Until Discontinu ed, Routine, Pain (scale 7-10)
U se approved by (Faculty): ADC PROVIDER HYDROmorphO 2019-0 2020- No 1mg 1 mg, Slow NPI:183 ne 11-04 IV Push, [id number] (DILAUDID) 17:03: 15:33 Q3HPRN, injection 1 17 :39 Starting mg Fri11/04/19 at 1103, Until Fri11/05/19 at 0933, MANDEEP, Pain (scale 7-10)
U se approved by (Faculty): ADC PROVIDER sennosides 2019-0 Yes 8.6mg 8.6 mg, NPI :183 (SENOKOT) -20 Oral, [id number] tablet 8.6 15:00: DAILY, mg 00 First dose on Fri11/04/19 at 0900, Until Discontinu ed, Routine ciprofloxac 2019- 2020- No 400mg 400 mg, IV NPI:183 in in 5 % 11-04 Piggyback, 131 8781 dextrose 07:00: 20:00 Administer (CIPRO) 00 :00 over 60 piggyback Minutes, 400 mg Q12H ABX, 2 doses, First dose on Fri11/04/19 at 0100, Last dose on Fri11/04/19 at 1300, MANDEEP
Re ason for Anti-Infec tive: Documented Infection& lt;br>Docu mented Infection Site: Abdominal< br>Duratio n of Therapy: Other (see Comments) Sliding 2019-0 Yes Subcutaneo NPI: 183 Scale 2-20 us, TID [id number] Insulin - 03:00: MEALS+HS, Aspart 00 First dose (NOVOLOG) + on Fri Fsbg 11/03/19 at Testing 2100, Until Discontinu ed, Routine docusate 2019-0 Yes 100mg 100 mg, NPI:1 83 (COLACE) 2-20 Oral, [id number] capsule 100 02:00: Q12H, mg 00 First dose on Fri11/03/19 at 2000, Until Discontinu ed, Routine insulin 2019- 2020- No 30U 30 Units, NPI: 183 detemir 11-04 Subcutaneo 68560 81 U-100 01:30: 14:24 us, DAILY, (LEVEMIR 00 :53 First dose U-100 on Fri INSULIN) 11/03/19 at injection 1930, 30 Units Until Discontinu ed, Routine glipiZIDE 2019-0 Yes 10mg 10 mg, NPI:18 3 (GLUCOTROL) 11-04 Oral, [id number] tablet 10 00:45: BIDAC, mg 00 First dose on Fri11/03/19 at 1845, Until Discontinu ed, Routine metroNIDAZO 2020- No 500mg 500 mg, IV NPI:183 LE (FLAGYL 11-03 Piggyback, 13 97520 I.V.) 23:15: 16:06 Q8H ABX, 6 Piggyback 00 :00 doses, 500 mg First dose on Fri11/03/19 at 1715, Last dose on Fri11/05/19 at 0915, 100 mL
Reas on for Anti-Infec tive: Documented Infection< br>Documen yelena Infection Site: Abdominal< br>Duratio n of Therapy: 7 days HYDROcodone 2019-0 Yes 1{tbl} 1 tablet, NPI:183 -acetaminop 11-03 Oral, [id number] hen (NORCO 21:44: Q4HPRN, 5) 5-325 mg 00 Starting tablet 1 Fri tablet 11/03/19 at 1544, Until Discontinu ed, Routine, Pain (scale 4-6) morpHINE 2019-0 2020- No 4mg 4 mg, Slow CLINICAL REHAB LIAISON I:183 injection 4 11-03 IV Push, 131 8781 mg 21:43: 17:06 Q2HPRN, 39 :17 Starting 11/03/19 at 1543, Until Angelina 11/04/19 at 1106, Routine, Pain (scale 7-10) ondansetron 2019-0 Yes 4mg 4 mg, Slow NPI:183 (ZOFRAN 11-03 IV Push, [id number] (PF)) 21:40: Q6HPRN, injection 4 10 Starting mg 11/03/19 at 1540, Until Discontinu ed, Routine, Nausea and Vomiting (N/V) metroNIDAZO 2019- 2020- No 500mg 500 mg, IV NPI:183 LE (FLAGYL 11-03 Piggyback, 13 54632 I.V.) 19:30: 19:55 ONCE, 1 Piggyback 00 :00 dose, Wed 500 mg 11/03/19 at 1330, 100 mL
Reas on for Anti-Infec tive: Documented Infection< br>Documen yelena Infection Site: Abdominal< br>Duratio n of Therapy: Other (see Comments) ciprofloxac 2019-2019- No 400mg 400 mg, IV NPI:183 in in 5 % 11-03 Piggyback, 131 8781 dextrose 19:30: 19:43 Administer (CIPRO) 00 :00 over 60 piggyback Minutes, 400 mg ONCE, 1 dose, 11/03/19 at 1330, MANDEEP
Re ason for Anti-Infec tive: Documented Infection< br>Documen yelena Infection Site: Abdominal< br>Duratio n of Therapy: Other (see Comments) D5W 0.45% 2020- No 1000mL at 125 NPI :183 NaCl 11-03 mL/hr, [id number] (1/2NS) IV 19:15: 01:21 1,000 mL, infusion 00 :07 IV 1,000 mL Infusion, CONTINUOUS , Starting 11/03/19 at 1315, Until Fri11/03/19 at 1921, MANDEEP FENTanyl PF 2019- 2020- No 125ug 125 mcg, NPI:183 (SUBLIMAZE 11-[place] [address] 81 (PF)) 18:15: 17:26 Push, injection 00 :00 ONCE, 1 125 mcg dose, 11/03/19 at 1215, Routine iohexol 2019-0 2020- No 120mL 120 mL, NPI:1 83 (OMNIPAQUE 11-03 Intravenou 13 06422 350 17:32: 17:32 s, ONCE, 1 BULK-150 00 :00 dose, Wed mL) 11/03/19 at injection 1145, 120 mL Routine NaCl 0.9% 2019- No 1000mL at 999 NPI :183 (NS) bolus 11-03 mL/hr, [id number] 1 infusion 17:00: 18:28 1,000 mL, 1,000 mL 00 :00 IV Infusion, ONCE, 1 dose, 11/03/19 at 1100, STAT FENTanyl PF 2019- No 100ug 100 mcg, NPI:183 (SUBLIMAZE 11-[place] [address] 81 (PF)) 17:00: 16:06 Push, injection 00 :00 ONCE, 1 100 mcg dose, 11/03/19 at 1100, Routine ondansetron 2019- No 4mg 4 mg, Slow NPI:183 (ZOFRAN 11-03 IV Push, [id number] (PF)) 17:00: 16:06 ONCE, 1 injection 4 00 :00 dose, Wed mg 11/03/19 at 1100, MANDEEP cyclobenzap 2018-09- No [id number] 5mg Take 1 NPI:183 rine 5 mg 011-06 9100 tablet by 1318 781 tablet 00:00: 00:00 mouth 3 00 :00 (three) times daily. traMADol 2018-09- No [id number] 50mg Take 1 NPI:183 (ULTRAM) 50 011-06 9100 tablet by 13 21034 mg tablet 00:00: 00:00 mouth 00 :00 every 8 (eight) hours as needed for Pain (scale 4-6). benzonatate 2019- No 100mg Take 1 CLIN[facility] REHAB LIAISON I:183 100 mg 10-05 capsule by [id number] 1 capsule 00:00: 00:00 mouth 3 00 :00 (three) times daily as needed for Cough. DO NOT CHEW! ondansetron 2019- No 4mg Take 1 NPI :183 (ZOFRAN 10-05 tablet by [id number] 1 ODT) 4 mg 00:00: 00:00 mouth disintegrat 00 :00 every 8 ing tablet (eight) hours as needed for Nausea and Vomiting (N/V). sod 2019- No 1{bottl Use 1 NPI:183 chlor-bicar 10-05 e} Bottle in 13 58238 b-squeez 00:00: 00:00 each bottle 00 :00 nostril 2 (NEILMED (two) SINUS RINSE times COMPLETE) daily. Use pkdv in hot shower 1 hour before bedtime Vital Signs Vital Name Observation Time Observation Value Comments Source Systolic blood pressure 2020-04-24 13:23:00 129 mm[Hg] Diastolic blood 2020-04-24 13:23:00 81 mm[Hg] NPI:1 [id number] pressure Heart rate 2020-04-24 13:23:00 82 /min NPI:1831 992305 Body weight 2020-04-24 13:23:00 138.075 kg NPI:1831 301149 BMI 2020-04-24 13:23:00 39.08 kg/m2 NPI:1831 195028 Systolic blood pressure 2020-04-24 13:23:00 129 mm[Hg] Diastolic blood 2020-04-24 13:23:00 81 mm[Hg] NPI:1 [id number] pressure Heart rate 2020-04-24 13:23:00 82 /min NPI:1831 326233 Body weight 2020-04-24 13:23:00 138.075 kg NPI:1831 457368 BMI 2020-04-24 13:23:00 39.08 kg/m2 NPI:1831 837597 Systolic blood pressure 2020-04-07 03:51:00 118 mm[Hg] Diastolic blood 2020-04-07 03:51:00 68 mm[Hg] NPI:1 [id number] pressure Heart rate 2020-04-07 03:51:00 92 /min NPI:1831 222145 Respiratory rate 2020-04-07 03:51:00 16 /min Oxygen saturation in 2020-04-07 03:51:00 100 /min Arterial blood by Pulse oximetry Body temperature 2020-04-07 03:40:00 36.44 Leonor Body weight 2020-04-07 00:07:00 129.275 kg NPI:1831 036955 BMI 2020-04-07 00:07:00 36.59 kg/m2 NPI:1831 167449 Heart rate 2020-02-19 23:10:00 105 /min NPI:1831 624641 Respiratory rate 2020-02-19 23:10:00 29 /min Oxygen saturation in 2020-02-19 23:10:00 94 /min Arterial blood by Pulse oximetry Systolic blood pressure 2020-02-19 23:00:00 127 mm[Hg] Diastolic blood 2020-02-19 23:00:00 78 mm[Hg] NPI:1 [id number] pressure Body temperature 2020-02-19 22:04:10 37.33 Leonor Body height 2020-02-19 19:56:00 188 cm NPI:1831 715184 Body weight 2020-02-19 19:56:00 129.275 kg NPI:1831 838867 BMI 2020-02-19 19:56:00 36.59 kg/m2 NPI:1831 344564 Systolic blood pressure 2019-11-06 17:14:00 138 mm[Hg] Diastolic blood 2019-11-06 17:14:00 88 mm[Hg] NPI:1 [id number] pressure Heart rate 2019-11-06 17:14:00 102 /min NPI:1831 586249 Respiratory rate 2019-11-06 17:14:00 18 /min Oxygen saturation in 2019-11-06 17:14:00 96 /min Arterial blood by Pulse oximetry Body temperature 2019-11-06 14:00:00 36.72 Leonor Body height 2019-11-03 23:00:00 188 cm NPI:1831 701361 Body weight 2019-11-03 15:22:00 129.275 kg NPI:1831 407678 BMI 2019-11-03 15:22:00 36.58 kg/m2 NPI:1831 [id number] Procedures Procedure Date / Time Performed Performing Clinician Leighann DURAND (ENDO) 2020-04-07 02:31:21 Lisa Armendariz NPI:18 [id number] COMP. METABOLIC PANEL 2020-04-07 01:52:00 VivienYazmin samuel NPI:18 [id number] ([id number]) CBC WITH DIFF 2020-04-07 01:52:00 VivienYazmin Cassy NPI:[id number] XR NECK SOFT TISSUE 2020-04-07 00:57:29 VivienYazmin Cassy NPI:1831 [id number] COVID-19 (ID NOW RAPID 2020-04-07 00:40:00 VivienYazmin Cassy NPI:1 [id number] TESTING) NOTICE OF PRIVACY 2020-04-06 23:57:19 Doctor Unassigned, No PRACTICES Name CONSENT/REFUSAL FOR 2020-04-06 23:57:05 Doctor Unassigned, No CLINICAL REHAB LIAISON I:[id number] DIAGNOSIS AND TREATMENT Name REFERRAL- 2020-03-29 05:01:00 Doctor Unassigned, No NPI:18 [id number] REQUEST/RESPONSE Name POCT GLUCOSE (AUTOMATED) 2020-02-19 23:05:00 Meggan Hernandez NPI :[id number] POCT GLUCOSE (AUTOMATED) 2020-02-19 21:52:00 Meggan Hernandez NPI :[id number] COMP. METABOLIC PANEL 2020-02-19 20:47:00 Meggan Hernandez NPI:18 [id number] ([id number]) CBC WITH DIFFERENTIAL 2020-02-19 20:47:00 Meggan Hernandez NPI:18 [id number] COVID-19 (ID NOW RAPID 2020-02-19 20:47:00 Meggan Hernandez NPI:1 [id number] TESTING) NOTICE OF PRIVACY 2020-02-19 19:53:34 Doctor Unassigned, No PRACTICES Name CONSENT/REFUSAL FOR 2020-02-19 19:53:23 Doctor Unassigned, No CLINICAL REHAB LIAISON I:[id number] DIAGNOSIS AND TREATMENT Name POCT GLUCOSE (AUTOMATED) 2019-11-06 13:36:00 Luis Mandujano NPI :[id number] POCT GLUCOSE (AUTOMATED) 2019-11-06 01:48:00 Luis Mandujano NPI :[id number] POCT GLUCOSE (AUTOMATED) 2019-11-05 22:16:00 Luis Mandujano NPI :[id number] POCT GLUCOSE (AUTOMATED) 2019-11-05 17:26:00 Luis Mandujano NPI :[id number] POCT GLUCOSE (AUTOMATED) 2019-11-05 13:21:00 Luis Mandujano NPI :[id number] BASIC METABOLIC PANEL 2019-11-05 10:28:00 Ritika Milan NPI:18 [id number] (NA, K, CL, CO2, GLUCOSE, BUN, CREATININE, CA) CBC WITH DIFFERENTIAL 2019-11-05 10:28:00 Ritika Milan NPI:18 [id number] POCT GLUCOSE (AUTOMATED) 2019-11-05 10:12:00 Luis Mandujano NPI :[id number] POCT GLUCOSE (AUTOMATED) 2019-11-05 06:12:00 Luis Mandujano NPI :[id number] POCT GLUCOSE (AUTOMATED) 2019-11-05 01:41:00 Luis Mandujano NPI :[id number] POCT GLUCOSE (AUTOMATED) 2019-11-04 22:26:00 Luis Mandujano NPI :[id number] POCT GLUCOSE (AUTOMATED) 2019-11-04 17:20:00 Luis Mandujano NPI :[id number] POCT GLUCOSE (AUTOMATED) 2019-11-04 13:21:00 Luis Mandujano NPI :[id number] POCT GLUCOSE (AUTOMATED) 2019-11-04 11:57:00 Luis Mandujano NPI :[id number] POCT GLUCOSE (AUTOMATED) 2019-11-04 05:30:00 Luis Mandujano NPI :[id number] POCT GLUCOSE (AUTOMATED) 2019-11-04 02:17:00 Luis Mandujano NPI :[id number] POCT GLUCOSE (AUTOMATED) 2019-11-03 23:23:00 Luis Mandujano NPI :[id number] POCT GLUCOSE (AUTOMATED) 2019-11-03 21:41:00 Luis Mandujano NPI :[id number] SURGICAL PATHOLOGY EXAM 2019-11-03 20:26:00 Yonatan Lund NPI :[id number] LAPAROSCOPIC APPENDECTOMY 2019-11-03 19:24:00 Yonatan Lund N PI:[id number] CT ABDOMEN PELVIS W 2019-11-03 17:41:22 Ervin Rhoades NPI:[id number] CONTRAST LIPASE 2019-11-03 15:35:00 Ervin Rhoades NPI:[id number] COMP. METABOLIC PANEL 2019-11-03 15:35:00 Ervin Rhoades NPI:18 [id number] ([id number]) CBC WITH DIFFERENTIAL 2019-11-03 15:35:00 Ervin Rhoades NPI:18 [id number] GLYCOSYLATED HEMOGLOBIN 2019-11-03 15:35:00 Meggan Pichardo (A1C) URINALYSIS 2019-11-03 15:35:00 Ervin Rhoades NPI:[id number] Encounters Start End Encounter Admission Attending Care Care Encounter Source Date/Time Date/Time Type Type Clinicians Facility Department ID 2020-08-15 2020-08-15 Outpatient R [facility] [id number] NPI:183 10:00:00 10:00:00 [id number] 2020-08-15 2020-08-15 [id number] NPI:183 10:00:00 10:00:00 SILVINA [id number] 2020-08-14 2020-08-14 Outpatient R [facility] [id number] NPI:183 10:40:00 10:40:00 [id number] 2020-04-24 2020-04-24 [facility] [id number] 08:15:37 08:49:56 Visit Norberto Ward [id number] [place] [id number] Professio [id number] [address] 2020-04-24 2020-04-24 [facility] [id number] NPI:183 08:15:37 08:49:56 Visit Norberto Ward [id number] [place] [id number] Professio [id number] [address] 2020-04-24 2020-04-24 Outpatient R NORBERTO BERNAL [facility] [id number] NPI:183 08:00:00 08:00:00 NORBERTO BERNAL [id number] 5862-07-23 2020-04-06 Emergency Yazmin Apple [facility] 1.2.840.114 [id number] NPI:183 19:12:13 22:55:00 Cassy Ed 350.1.13.10 1 [id number] [place] 4.2.7.2.686 [facility] [id number] [place] 07 2020-04-06 2020-04-06 Emergency X Yazmin APPLE [facility] ERT [id number] NPI:183 19:12:13 19:12:13 [id number] 1 2020-04-06 2020-04-06 Orders Doctor SNEED 1.2.840.114 [id number] 40 NPI:183 00:00:00 00:00:00 Only Unassigned, MIRI 350.1.13.10 [id number] [facility] 4.2.7.2.686 [id number] 009 2020-03-29 2020-03-29 Orders Doctor SNEED 1.2.840.114 [id number] NPI:183 00:00:00 00:00:00 Only Unassigned, MIRI 350.1.13.10 [id number] [facility] 4.2.7.2.686 [id number] 009 2020-02-19 2020-02-19 [facility] 1.2.508.833 [id number] 0438 NPI:183 15:07:18 19:22:00 Meggan Monroy Ed 350.1.13.10 1 [id number] [place] 4.2.7.2.686 [place] [id number] 084 2020-02-19 2020-02-19 Emergency X [facility] ERT [id number] NPI:183 14:53:00 14:53:00 [id number] 1 2020-02-19 2020-02-19 Orders Doctor SNEED 1.2.840.114 [id number] NPI:183 00:00:00 00:00:00 Only Unassigned, MIRI 350.1.13.10 [id number] [facility] 4.2.7.2.686 [id number] 009 2019-11-08 2019-11-08 Transition Faraz Nicolas 1.2.840.114 [id number] 79450 NPI:183 00:00:00 00:00:00 of Care Hortensia De Jesus 350.1.13.10 [id number] [place] 4.2.7.2.686 [id number] [id number] 2019-11-03 2019-11-06 [facility] Ervin Rhoades [facility] 1.2.840.1 14 [id number] NPI:183 09:25:15 12:00:00 Encounter Luis Mandujano 350.1.13.10 [id number] [place] 4.2.7.2.686 [place] [id number] [id number] 2019-11-03 2019-11-06 Inpatient X PAVITHRA [facility] TIM[place]O [id number] 8039 NPI:183 09:25:15 12:00:00 LUIS [id number] 1 Results Test Description Test Time Test Comments Results Result Comments Source COMP. METABOLIC PANEL (74726) 2020-04-07 03:03:00 Test Item Value Reference Range Interpretation Comme nts NA (test code = 0603768727) 139 mmol/L 135-145 K (test code = 8812466168) 4.4 mmol/L 3.5-5 CL (test code = 3055676274) 101 mmol/L 98-108 CO2 TOTAL (test code = 1886856623) 28 mmol/L 23-31 AGAP (test code = 7793989141) 2-16 BUN (test code = 3383807028) 11 mg/dL 7-23 GLUCOSE (test code = 6292413653) 225 mg/dL 70-110 H CREATININE (test code = 0.98 mg/dL 0.6-1.25 1414024022) TOTAL BILI (test code = 0.5 mg/dL 0.1-1.1 0901244182) CALCIUM (test code = 7393469754) 9.6 mg/dL 8.6-10.6 T PROTEIN (test code = 9088279104) 8.2 g/dL 6.3-8.2 ALBUMIN (test code = 3977438566) 4.7 g/dL 3.5-5 ALK PHOS (test code = 4007720100) 75 U/L 34-122 ALTv (test code = 1742-6) 74 U/L 5-50 H AST(SGOT) (test code = 3466419352) 39 U/L 13-40 eGFR Calculation (Non- mL/min/1.73m2 Ni[place]an) (test code = 7280064461) eGFR Calculation ( mL/min/1.73m2 [place]an) (test code = 1471556118) KATE (test code = KATE) Association of [...] tests). Lab Interpretation (test code = Abnormal 37431-6) NPI:[id number] WITH [id number] 02:12:00 Test Item Value Reference Range Interpretation Comments WBC (test code = See_Comment [Automated 7450-2) message] The sy stem which generated this result transmitted reference range : 4.20 - 10.70 10*3/?L. The reference range was not used to interpret this result as normal/abnormal . RBC (test code = See_Comment H [Automated 731-3) message] The sy stem which generated this [...] (test code = 36.4 fL 38.5-51.6 L 27014-8) RDW-CV (test code = 12.5 % 12.1-15.4 788-0) PLT (test code = See_Comment [Automated 777-3) message] The sy stem which generated this result transmitted reference range : 150 - 328 10*3/ ?L. The reference r jevon was not used to interpret this result as normal/abnormal . MPV (test code = 11.5 fL 9.8-13 60786-5) NRBC/100 WBC (test See_Comment [Automat ed code = 5453207823) message] The system which generated this result transmitted reference range : 0.0 - 10.0 /100 WBCs. The refer ence range was not u sed to interpret th is result as normal/abnormal . NRBC x10^3 (test code <0.01 See_Comment [Auto mated = 2323876832) message] The s ystem which generated this result transmitted reference range : 10*3/?L. The reference range was not used to interpret this result as normal/abnormal . GRAN MAT (NEUT) % 68.0 % (test code = 770-8) IMM GRAN % (test code 0.40 % = 7696578920) LYMPH % (test code = 23.8 % 736-9) MONO % (test code = 4.7 % 5905-5) EOS % (test code = 2.7 % 713-8) BASO % (test code = 0.4 % 706-2) GRAN MAT x10^3(ANC) 5.24 10*3/uL 1.99-6.95 (test code = 0277480270) IMM GRAN x10^3 (test 0.03 10*3/uL 0-0.06 code = 7668643134) LYMPH x10^3 (test code 1.83 10*3/uL 1.09-3.23 = 731-0) MONO x10^3 (test code 0.36 10*3/uL 0.36-1.02 = 742-7) EOS x10^3 (test code = 0.21 10*3/uL 0.06-0.53 711-2) BASO x10^3 (test code 0.03 10*3/uL 0.01-0.09 = 704-7) Lab Interpretation Abnormal (test code = 08462-2) NPI:[id number] (ID NOW RAPID TESTING)2020-04-07 01:40:00 Test Item Value Reference Range Interpretation Comments SARS-CoV-2 Rapid ID NOW Not Detected Not Detected (test code = 10688-7) KATE (test code = KATE) ID NOW COVID-19 Assay is an isothermal nucleic acid amplification test intended for the qualitative detection of nucleic acid from SARS-CoV-2 viral RNA in nasopharyngeal (CLINICAL REHAB LIAISON) specimens. It is used under Emergency Use [...] indicated. Lab Interpretation Normal (test code = 98092-2) NPI:[id number] NECK SOFT [id number] 01:06:58FINDINGS/IMPRESSION:: Frontal and lateral radiographs of the neck soft tissues were performed. No ra diopaque foreign body identified. The oropharyngeal and nasopharyngealairways are patent. The prevertebral soft tissues are unremarkable. Mild spondylotic changes at C5-C6. Cervical spine is otherwiseunremarkable. EXAM: XR NECK SOFT TISSUE HISTORY: esophageal fb COMPARISON: None. [facility], Radiant Results Inft User - 04/06/2020 8:08 PM CDTEXAM: XR NECK SOFT TISSUEHISTORY: esophageal fb COMPARISON:None.IMPRESSIONFINDINGS/IMPRESSION:: Frontal and lateral radiographs of the neck soft tissues were performed.No radiopaque foreign body identified. The oropharyngeal and nasopharyngealairways are patent. The prevertebral soft tissues are unremarkable.Mild spondylotic changes at C5-C6. Cervical spine is otherwiseunremarkable.NPI:[id number] GLUCOSE (AUTOMATED)2020-02-19 23:08:00 Test Item Value Reference Range Interpretation Comments POCT GLU (test code = 9134697897) 243 mg/dL 70-110 H Lab Interpretation (test code = Abnormal 60658-6) NPI:[id number] GLUCOSE (AUTOMATED)2020-02-19 21:58:00 Test Item Value Reference Range Interpretation Comments POCT GLU (test code = 4827248558) 313 mg/dL 70-110 H Lab Interpretation (test code = Abnormal 65975-7) NPI:[id number] (ID NOW RAPID TESTING)2020-02-19 21:31:00 Test Item Value Reference Range Interpretation Comments SARS-CoV-2 Rapid ID NOW Not Detected Not Detected (test code = 28120-8) KATE (test code = KATE) ID NOW COVID-19 Assay is an isothermal nucleic acid amplification test intended for the qualitative detection of nucleic acid from SARS-CoV-2 viral RNA in nasopharyngeal (CLINICAL REHAB LIAISON) specimens. It is used under Emergency Use [...] indicated. Lab Interpretation Normal (test code = 47946-8) NPI:[id number]. METABOLIC PANEL (49850)2020-02-19 21:29:00 Test Item Value Reference Range Interpretation Comments NA (test code = 134 mmol/L 135-145 L 0669157543) K (test code = 4.1 mmol/L 3.5-5 8893276948) CL (test code = 99 mmol/L 98-108 5014058455) CO2 TOTAL (test code = 27 mmol/L 23-31 7597479053) AGAP (test code = 2-16 1782092078) BUN (test code = 10 mg/dL 7-23 6057150014) GLUCOSE (test code = 372 mg/dL 70-110 H 4576918996) CREATININE (test code = 0.96 mg/dL 0.6-1.25 1928053177) TOTAL BILI (test code = 0.4 mg/dL 0.1-1.5 4011855564) CALCIUM (test code = 9.2 mg/dL 8.6-10.6 7512398588) T PROTEIN (test code = 7.5 g/dL 6.3-8.2 4190402146) ALBUMIN (test code = 4.5 g/dL 3.5-5 3619365184) ALK PHOS (test code = 86 U/L 34-122 1596399089) ALTv (test code = 48 U/L 5-50 1742-6) AST(SGOT) (test code = 27 U/L 13-40 6960716948) eGFR Calculation mL/min/1.73m2 (Non-) (test code = 5873156644) eGFR Calculation mL/min/1.73m2 () (test code = 3032119295) KATE (test code = KATE) Association of [...] tests). Lab Interpretation Abnormal (test code = 69332-3) NPI:[id number] WITH [id number] 21:06:00 Test Item Value Reference Range Interpretation Comments WBC (test code = See_Comment [Automated 7725-2) message] The sy stem which generated this result transmitted reference range : 4.20 - 10.70 10*3/?L. The reference range was not used to interpret this result as normal/abnormal . RBC (test code = See_Comment H [Automated 725-8) message] The sy stem which generated this [...] (test code = 36.3 fL 38.5-51.6 L 32474-3) RDW-CV (test code = 12.9 % 12.1-15.4 788-0) PLT (test code = See_Comment [Automated 777-3) message] The sy stem which generated this result transmitted reference range : 150 - 328 10*3/ ?L. The reference r jevon was not used to interpret this result as normal/abnormal . MPV (test code = 11.3 fL 9.8-13 98917-0) NRBC/100 WBC (test See_Comment [Automat ed code = 0858783325) message] The system which generated this result transmitted reference range : 0.0 - 10.0 /100 WBCs. The refer ence range was not u sed to interpret th is result as normal/abnormal . NRBC x10^3 (test code <0.01 See_Comment [Auto mated = 0989652076) message] The s ystem which generated this result transmitted reference range : 10*3/?L. The reference range was not used to interpret this result as normal/abnormal . GRAN MAT (NEUT) % 79.8 % (test code = 770-8) IMM GRAN % (test code 0.50 % = 7428821393) LYMPH % (test code = 13.4 % 736-9) MONO % (test code = 4.2 % 5905-5) EOS % (test code = 1.8 % 713-8) BASO % (test code = 0.3 % 706-2) GRAN MAT x10^3(ANC) 8.49 10*3/uL 1.99-6.95 H (test code = 6828470837) IMM GRAN x10^3 (test 0.05 10*3/uL 0-0.06 code = 9475870196) LYMPH x10^3 (test code 1.42 10*3/uL 1.09-3.23 = 731-0) MONO x10^3 (test code 0.45 10*3/uL 0.36-1.02 = 742-7) EOS x10^3 (test code = 0.19 10*3/uL 0.06-0.53 711-2) BASO x10^3 (test code 0.03 10*3/uL 0.01-0.09 = 704-7) Lab Interpretation Abnormal (test code = 15305-1) NPI:[id number] GLUCOSE (AUTOMATED)2019-11-06 13:38:00 Test Item Value Reference Range Interpretation Comments POCT GLU (test code = 3035563006) 116 mg/dL 70-110 H Lab Interpretation (test code = Abnormal 61665-5) NPI:[id number] GLUCOSE (AUTOMATED)2019-11-06 12:29:00 Test Item Value Reference Range Interpretation Comments POCT GLU (test code = 0902400956) 322 mg/dL 70-110 H Lab Interpretation (test code = Abnormal 48538-2) NPI:[id number] GLUCOSE (AUTOMATED)2019-11-06 12:29:00 Test Item Value Reference Range Interpretation Comments POCT GLU (test code = 0570243093) 230 mg/dL 70-110 H Lab Interpretation (test code = Abnormal 55976-8) NPI:[id number] GLUCOSE (AUTOMATED)2019-11-06 02:00:00 Test Item Value Reference Range Interpretation Comments POCT GLU (test code = 155 mg/dL 70-110 H Notifi ed Provider 0658328275) Lab Interpretation (test Abnormal code = 88660-2) NPI:[id number] PATHOLOGY [id number] 00:02:00 Test Item Value Reference Range Interpretation Comments Case Report (test code Surgical Pathology ? ? = [id number]) ?Case: [id number] ? Authorizing Provider: ?Yonatan Lund MD ? ? ? Collected: ? 11/03/2019 1426 ?Ordering Location: ? ? [facility] ? ? ?Received: ?11/03/2019 1555 ? [facility] ?Pathologist: ? Klaus Tinoco MD ? Specimen: ? ?APPENDIX, appendix ? Final Diagnosis (test o8sfmWYsONZrh8aiYAElzP code = 8174584670) FuZzEwMzNcZnRuYmpcdWMx OYtzdhCdMWewi6XmS2RtAo AwMFxhbnNpXGRlZmxhbmcx BPXnZYK9nrWhEVSlRXzgHO FjHIjpAz8ibADmlNpxJxIs LBCvz6eehqJUebowoEk9i2 naAHLsJaG1bBDwZFapL4vr qcEyaDErDXCbGLc7kN79HZ FooA1nnTMzRJqpoeLhSNsp wkRulfKsQqe3CWQbI7yeWU DsMFVmW2UkRZ7tBJDuIat4 JUD6YFT7xBpdf4T3tPDjrJ GvqMajJzLjFzDvAHIKf0Kx VMw7dRgrX8IoIUVbWzW6iF QgUGFyYWdyYXBoIEZvbnQ7 mF86ZYwqztT5nJTwn1Xak6 0jn164iK0axUIjWAK1HMAx YOGibZJwRFRbHGZ7DTZtzM OlE7avWEpqJZ0ulcqbVFU5 MFxtYXJndDcyMFxtYXJnYj UdpQKtTRQuuLgzAUmrs067 HCK6EpEiZR9lH7Xxl1T4uH 9maXRcZGVmdGFiNzIwXGZv hj9zyPBcZMuoy3BjZHB3lt D9wZYrnDUoVWOiUD35Sxtx z0IuMupeRHI7RGJtsgKtw2 Alx2rpZeSpylYgB1idK4Gg ZHJoZWFkXHBnYnJkcmZvb3 Ehq4JjlXQquJl0m0tcCCYn TNTwlBblz3rdTVD9FAFhS5 Z4zCOtv9fbXNtdJCDpnLY8 fdMtBJJmhNRlS3ZjeG7eDU oiGG3tctk5t1sbRoRjUA2y gueuu8kwULrwBLJaEIS0Om BxPQWra8BtzkwrDqCci7Hj oBQxLWugH14yt663UAGnme GxY3vtlQFsnuxopCNbjlar MFxmczIwXHFsXHBsYWluXG GrANTcTkBpcZpccK5pSvJy ZnMyMFxwYXJccGFyZFxwbG FpblxmMFxmczIwXHBsYWlu IOBcHSCyEjGvIW2dEZUJMC 7BMUrmQJTWAZHMSWEOBM0X WTpccGFyXHFsXHBsYWluXG GfXMBjOxCdzNdreC4lCeKp NxHkVZRkRLCkLX1dXTMFVH YvTBWIOX2MXFGYFTfHXSxB FYclZPCJQF0HAULXJtPKL3 lUSVNccGFyXHBhciBNYXR0 dXO4HOIdjKExDUNYKXptLO NawEzzrU4tIiIvToEaIrkf QH6jAEJdB1nqzAGjKBAaRS GnY0jnDxCvgG1fmPhpMMsh ZjFcZnMyMiBIYXJzaHdhcm QhCV9pDKpcl2SmUIDPQDPg Uk4rGJ4aBXDrILD9BiVvXY BNXHBsYWluXGYxXGZzMjBc aXLlbHcyyqErHMsrr2RmO5 YyMjAwMFxhbnNpXGRlZmxh kmhiXZKkWGK6qePmVHKoJX ngXFYuHBtpLh5ppPXzlBxl BkZxBEEvj5gtrmSWUSkiIp RiS837BLAxBBnkz6dyn2Hm KCJotKItq6A1CZSHsmpkmT i3v6emBmSiLpD7uYFkVJft Z0rfhbZqrPCbB0OccCHypY s2fBmoW87he9Z7IpyuT1ig YXXxGRBoJ7KeLK3pVDTbPq t8HWS9YWI9ABUbXQMwV5Ze CC4uGIKucGXjIQy4x4fgyF fiSNYbKCN7l2thWXcwiyB0 IC4ncj3dnHn9a4htpoIoTE ChQMYvbXWGBOVpI4AcpMth Md4xfMt9rCjtOxneJKX2Id g7SE9dsg32gkr4qPvcSCLk kxikZbN4FViiZKUqnscxRD s6QBseADKivSH9VAVeqHFk O2QjDGFkLN5xqek4WFK3TA iwHZQgQeG4GTGghKTwZXHm lIdePOcan041NLM2UzWkIG 5hH4Fmw4Z2oG4brSByJVAn qVSmOyKkQDJald3llHBqQK axw5WpRXA3muF8sJZagYOg GSCpAL09Vsbpa1TfNesxVU H5MVBadiBfg4Miw2voOpHx smQzV5agL1ZbCXQwDTQrTA EcHyRezxZzp4Olu1UhaTZb aPk0o9ieCVRxFKKoeHezu7 buXES4TMMeY0T9dOPnh4gc OVkwQGTtzYU7cuX0LFAbxV EeC1DndF4dRDUaGI7tlod4 m5amTNU8LLkdOUSbLoU5iu J2XJXabNYmOQDagUxuMOwr a833SOV5XpEoMXGcp5XrN0 YxtNfoM38zrIwdJ78jYYRa xYzwmN1rfInunW6lTrQwYb MyNFxxbFxwbGFpblxmMVxm czIwXGxhbmcxMDMzXGhpY2 neUcOfSHHmvXhiNJlbg2Hq XGYxXGNmMlxmczIwXHBhci WLTQlnqaIjaVHio78qEDwe eSByZXZpZXdlZCBhbGwgc3 MkE4hbZB0pG0ZybZPoafGu czYoUZnyMUVxs8o7lNLxuR xhx5MdkJVlKJ42ggRbDMHm TAO4ZVBdw7mdDL28yhgcVk HzxO25nlYxfvEsEJYod3gu B2jhkYDby2Kwl8XjvuMoDI gcw5RgKE2raXWuvyvxkKW6 HLZtlWPsoyYwfnY4yQkjQZ UzeG3kaD5seJwwhB7wToWr QhOdBJseNV6sDRMmT6tcuM FqQWIuEFUxK6wpWuGmtM6b rHkePokmfiH5EHBwre80 Clinical Information Acute abdomen (test code = 9958366281) Gross Description (test v6qfvUEyBXAlpVUmSrMoMG code = 4600543186) XqXPTft3jkPJNkjIOmJmYb MzNcZnRuYmpcdWMxXGRlZm Oeq4kzf281pYMtk9taRCTa NqE4eLOpJHUrdDYjL109KV UsQNyyc2dvb4AeGDXutRBb v6X6EVCCujzotXk6rXzfE3 5sj1K2RnlqM6hmGRPbQUpb CVWsDGymnVJtKHL5NTIrDY P3IQqhsgQadzH1COqyfAVd PaA5ZHq8p4aqsKngTPStLE N2i9frEPlpkmGfDE5hyc3p cWd0u7ardvNvXGXvBBGdnT MXGOXkS9TenQthCv8yvBh3 uNlyJwkcNGN4Vdb5BG4oap 15nkz6aWtaJMYpsmtuVzS7 CJrlFZOhqsieDWe3TThqSJ TylLGrCDCgwEBxK5HuGOot WV1mmsn7NuGnUH6wypxmDW vtGCPhICZ6DyLyPMJub2Fz zrjkVhXyna7tif76CNS9j7 EpfSbrDUQ6YDR0TiQjNl9l oDQeBMTqKP0mXaFexAZzUQ Nfnu52pXnjCAupgxGklC8d ZmQqIIVjrZAwECCpRE4lwK JwTZTbpA6yyfhmGLEpOjUf xvmvPWMyrIrdmpBmOa8pvM hfUPL3XPzgE0pcfD5tKyJ1 YXwkI9kkpB3qNJd9IVueeA S1CXNkqA6aXR1zdyqrm9ej CNU2FZycZRCsoeO2sbKiOW AciHHmB1OdfZ83MaYygOMo H0VucZ9wJVbjYKCfunk6Jc JxAa4wgLEkuPQ1FOtlVelw YWdlXHBnbmNvbnRccGduZG VjXHBsYWluXHBsYWluXGYw PVKgVkYau9CyTHZhf4onKb Lhg4rwkZl9KLuqnRnhfKSx blxmMFxmczIwXHBsYWluXG NjRSKpKhMhJ3PrJ8gwZH1s QSBpcyByZWNlaXZlZCBpbi Ici6CgVXtothTiMYJwlBzq ZRK1vHMrKMHxUHAmIENgQW 50XHBsYWluXGYxXGZzMjBc lRuyXUplPHu3BaneuZGeev xmMVxmczIwIHMgbmFtZSwg VUggbnVtYmVyICJhcHBlbm RpeFxwbGFpblxmMVxmczIw XUX0FsSoYGgpIYCjjGlbyD 1zVhVuVyTyPMEaWV6fHQUl epIlw0CtMV8rHDOveHtjdb 72KG8uclFkaWtgo4BmCCRm sJEuGFr9XBa6HkygJ86mcV 9mjQEcT8QaJKlcLQ58EJWy OCBjbSBpbiBkaWFtZXRlci snf4p5dFKneLWlL1xhMMN5 GZdtv7jnoS7zgEmcqVEmHS Yml6I0rCUgFIKvYJQoOAFm KE2etSqvKMWpXTA8PDOtSE B9SIXvPDEngCrdAZETtZFe YIVrYS6ojIaol3Srt2JgYW maq0LdUUImhiI2iUCeTVS2 aWBisKAjGQJnxgKstWM1vW VudCBleHVkYXRlLiBUaGUg BYEgLY2bjYoksEAvo4YgnZ LsiApdf5QdmBbvtkLfYWRm IHJldmVhbCBhIHBhdGVudC QbtX0xkqcwdlGpX1kiKcXq cw7hLQIfutCxaL76RCMgMR QgYgRuvHjsT06kpTTujmjr KlFuE8RxoKJcRS7mxzTbXJ dlLiAgVGhlIHdhbGwgdGhp P5qxWBQrWJHbkgfwcyFxyr 3mFKHyML4sVzCsK04eMMXb cnVwdHVyZSBzaXRlIGlzIG all9GxsEdcsKMzrcNtJnjb WBryYX6fPIIwNHCsk26fsB gyWD16T77vBMtuapBaPTW5 cN1xUV0rsyxzbn6hMuTndj XbJY46WXUimjXqz7CqbKnz hkAsy2cfO5rrnX3fsNQkEY Pfwh0xhuNvJCZ7jM0pmpte dPrrMSPmgONyjG3cOBNuge WmRTD1oO5rDF5bohvnwnKg bmQgZGlzdGFsIHRpcCBhcm Ofw2GunGx8oMVrIUuvCIJd LUEyLlxwYXJccGFyZFxwbG FpblxmMFxmczIwXHBsYWlu XGYxXGZzMjAgSnVsaWUgTW JSqVuopfY2ANXPAHvnRTL0 Embedded Images (test code = 9524973822) NPI:[id number] GLUCOSE (AUTOMATED)2019-11-05 22:19:00 Test Item Value Reference Range Interpretation Comments POCT GLU (test code = 3029273895) 115 mg/dL 70-110 H Lab Interpretation (test code = Abnormal 06271-3) NPI:[id number] GLUCOSE (AUTOMATED)2019-11-05 18:23:00 Test Item Value Reference Range Interpretation Comments POCT GLU (test code = 6600435691) 197 mg/dL 70-110 H Lab Interpretation (test code = Abnormal 78796-3) NPI:[id number] GLUCOSE (AUTOMATED)2019-11-05 17:33:00 Test Item Value Reference Range Interpretation Comments POCT GLU (test code = 5416409494) 125 mg/dL 70-110 H Lab Interpretation (test code = Abnormal 83944-8) NPI:[id number] GLUCOSE (AUTOMATED)2019-11-05 13:28:00 Test Item Value Reference Range Interpretation Comments POCT GLU (test code = 6832782286) 130 mg/dL 70-110 H Lab Interpretation (test code = Abnormal 53170-9) NPI:[id number] METABOLIC PANEL (NA, K, CL, CO2, GLUCOSE, BUN, CREATININE, CA)2019-11-05 12:11:00 Test Item Value Reference Range Interpretation Comments NA (test code = 137 mmol/L 135-145 3871123369) K (test code = 3.6 mmol/L 3.5-5 0209250276) CL (test code = 100 mmol/L 98-108 2984540427) CO2 TOTAL (test code = 30 mmol/L 23-31 5416875548) AGAP (test code = 2-16 5235376169) BUN (test code = 14 mg/dL 7-23 4008258688) GLUCOSE (test code = 164 mg/dL 70-110 H 9856450889) CREATININE (test code = 0.81 mg/dL 0.6-1.25 3110556024) CALCIUM (test code = 8.6 mg/dL 8.6-10.6 2435763837) eGFR Calculation mL/min/1.73m2 (Non-) (test code = 8191128499) eGFR Calculation mL/min/1.73m2 () (test code = 1892953580) KATE (test code = KTAE) Association of Glomerular Filtration Rate (GFR) and [...] tests). Lab Interpretation Abnormal (test code = 13110-1) NPI:[id number] WITH [id number] 11:39:00 Test Item Value Reference Range Interpretation Comments WBC (test code = See_Comment [Automated 3418-2) message] The sy stem which generated this result transmitted reference range : 4.20 - 10.70 10*3/?L. The reference range was not used to interpret this result as normal/abnormal . RBC (test code = See_Comment [Automated 925-8) message] The sy stem which generated this [...] RDW-SD (test code = 38.7 fL 38.5-51.6 37523-6) RDW-CV (test code = 13.0 % 12.1-15.4 788-0) PLT (test code = See_Comment [Automated 777-3) message] The sy stem which generated this result transmitted reference range : 150 - 328 10*3/ ?L. The reference r jevon was not used to interpret this result as normal/abnormal . MPV (test code = 11.5 fL 9.8-13 30030-9) NRBC/100 WBC (test See_Comment [Automat ed code = 0630906588) message] The system which generated this result transmitted reference range : 0.0 - 10.0 /100 WBCs. The refer ence range was not u sed to interpret th is result as normal/abnormal . NRBC x10^3 (test code <0.01 See_Comment [Auto mated = 1043846986) message] The s ystem which generated this result transmitted reference range : 10*3/?L. The reference range was not used to interpret this result as normal/abnormal . GRAN MAT (NEUT) % 83.5 % (test code = 770-8) IMM GRAN % (test code 0.30 % = 8118527255) LYMPH % (test code = 9.3 % 736-9) MONO % (test code = 5.7 % 5905-5) EOS % (test code = 1.1 % 713-8) BASO % (test code = 0.1 % 706-2) GRAN MAT x10^3(ANC) 7.74 10*3/uL 1.99-6.95 H (test code = 4085440555) IMM GRAN x10^3 (test 0.03 10*3/uL 0-0.06 code = 2916989103) LYMPH x10^3 (test code 0.86 10*3/uL 1.09-3.23 L = 731-0) MONO x10^3 (test code 0.53 10*3/uL 0.36-1.02 = 742-7) EOS x10^3 (test code = 0.10 10*3/uL 0.06-0.53 711-2) BASO x10^3 (test code <0.03 0.01-0.09 = 704-7) Lab Interpretation Abnormal (test code = 40032-2) NPI:[id number] GLUCOSE (AUTOMATED)2019-11-05 10:22:00 Test Item Value Reference Range Interpretation Comments POCT GLU (test code = 0453996220) 149 mg/dL 70-110 H Lab Interpretation (test code = Abnormal 73563-4) NPI:[id number] GLUCOSE (AUTOMATED)2019-11-05 06:15:00 Test Item Value Reference Range Interpretation Comments POCT GLU (test code = 1900329751) 204 mg/dL 70-110 H Lab Interpretation (test code = Abnormal 08519-4) NPI:[id number] GLUCOSE (AUTOMATED)2019-11-05 01:48:00 Test Item Value Reference Range Interpretation Comments POCT GLU (test code = 3225913954) 227 mg/dL 70-110 H Lab Interpretation (test code = Abnormal 56480-7) NPI:[id number] GLUCOSE (AUTOMATED)2019-11-04 22:30:00 Test Item Value Reference Range Interpretation Comments POCT GLU (test code = 1273402225) 132 mg/dL 70-110 H Lab Interpretation (test code = Abnormal 63803-5) NPI:[id number] GLUCOSE (AUTOMATED)2019-11-04 17:24:00 Test Item Value Reference Range Interpretation Comments POCT GLU (test code = 2243661003) 213 mg/dL 70-110 H Lab Interpretation (test code = Abnormal 02287-5) NPI:[id number] GLUCOSE (AUTOMATED)2019-11-04 13:31:00 Test Item Value Reference Range Interpretation Comments POCT GLU (test code = 2187959237) 203 mg/dL 70-110 H Lab Interpretation (test code = Abnormal 81158-6) NPI:[id number] GLUCOSE (AUTOMATED)2019-11-04 12:03:00 Test Item Value Reference Range Interpretation Comments POCT GLU (test code = 8064574304) 213 mg/dL 70-110 H Lab Interpretation (test code = Abnormal 67435-7) NPI:[id number] HEMOGLOBIN (A1C)2019-11-03 23:50:00 Test Item Value Reference [...] Indicated Lab Interpretation Abnormal (test code = 20776-4) NPI:[id number] GLUCOSE (AUTOMATED)2019-11-03 23:28:00 Test Item Value Reference Range Interpretation Comments POCT GLU (test code = 2141205358) 273 mg/dL 70-110 H Lab Interpretation (test code = Abnormal 90476-9) NPI:[id number] ABDOMEN PELVIS W [id number] 18:01:52CT Abdomen and Pelvis with intravenous contrast. [...] Rhoades in the emergency room at 12:00. [facility], [facility] Results Inft User - 11/03/2019 12:02 PM [...] Rhoades in the emergency room at 12:00. [id number] 16:23:00 Test Item Value Reference Range Interpretation Comments APPEARANCE (test code = Clear Clear 1231399995) COLOR (test code = Yellow Yellow 2284847920) PH (test code = 4.8-8.0 5089657535) SP GRAVITY (test code = 1.003-1.030 4102922129) GLU U QUAL (test code = 500 mg/dL Normal A 7266193538) BLOOD (test code = Negative Negative 9497045534) KETONES (test code = Negative Negative 2387028574) PROTEIN (test code = Negative Negative 2887-8) UROBILIN (test code = Normal Normal 9819508339) BILIRUBIN (test code = Negative Negative 4899914416) NITRITE (test code = Negative Negative 7472554217) LEUK BIANCA (test code = Negative Negative 7863059840) RBC/HPF (test code = See_Comment [Autom ated message] 8251374513) The system [employer] generated this result transmit yelena reference range : 0 - 3 HPF. The refe rence range was not u sed to interpret th is result as normal/abnormal . WBC/HPF (test code = See_Comment [Autom ated message] 0129970906) The system [employer] generated this result transmit yelena reference range : 0 - 5 HPF. The refe rence range was not u sed to interpret th is result as normal/abnormal . BACTERIA (test code = Negative Negative 7189921125) MUCOUS (test code = Slight Negative LPF A 5960851940) SQ EPITH (test code = <1 HPF 3873459989) Lab Interpretation (test Abnormal code = 38531-1) NPI:[id number]. METABOLIC PANEL (99103)2019-11-03 16:04:00 Test Item Value Reference Range Interpretation Comments NA (test code = 137 mmol/L 135-145 9314046281) K (test code = 4.3 mmol/L 3.5-5 7075438056) CL (test code = 98 mmol/L 98-108 0979560453) CO2 TOTAL (test code = 28 mmol/L 23-31 4268367974) AGAP (test code = 2-16 9073495605) BUN (test code = 11 mg/dL 7-23 0306565964) GLUCOSE (test code = 356 mg/dL 70-110 H 5790620293) CREATININE (test code = 1.01 mg/dL 0.6-1.25 0502093468) TOTAL BILI (test code = 0.9 mg/dL 0.1-1.9 4445736646) CALCIUM (test code = 9.1 mg/dL 8.6-10.6 7990013200) T PROTEIN (test code = 7.5 g/dL 6.3-8.2 9041200564) ALBUMIN (test code = 4.7 g/dL 3.5-5 1196396807) ALK PHOS (test code = 73 U/L 34-122 5989900556) ALTv (test code = 38 U/L 5-50 1742-6) AST(SGOT) (test code = 25 U/L 13-40 1310531973) eGFR Calculation mL/min/1.73m2 (Non-) (test code = 3793487990) eGFR Calculation mL/min/1.73m2 () (test code = 4443953175) KATE (test code = KATE) Association of [...] tests). Lab Interpretation Abnormal (test code = 32559-3) NPI:[id number] 16:03:00 Test Item Value Reference Range Interpretation Comments LIPASE (test code = 2608355552) 48 U/L 0-220 Lab Interpretation (test code = Normal 56578-2) NPI:[id number] WITH [id number] 15:51:00 Test Item Value Reference Range Interpretation [...] (test code = 37.8 fL 38.5-51.6 L 69401-4) RDW-CV (test code = 12.7 % 12.1-15.4 788-0) PLT (test code = See_Comment [Automated 777-3) message] The system which generated this result transmit yelena reference range : 150 - 328 10*3/ ?L. The reference range was not u sed to interpret th is result as normal/abnormal . MPV (test code = 10.9 fL 9.8-13 83061-5) NRBC/100 WBC (test See_Comment [Automat ed code = 3307598020) message] The system which generated this result transmit yelena reference range : 0.0 - 10.0 /100 WBCs. The reference range was not used to interpret this result as normal/abnormal . NRBC x10^3 (test code <0.01 See_Comment [Auto mated = 6379726300) message] The system which generated this result transmit yelena reference range : 10*3/?L. The reference range was not used to interpret this result as normal/abnormal . GRAN MAT (NEUT) % 91.5 % (test code = 770-8) IMM GRAN % (test code 0.50 % = 6229711191) LYMPH % (test code = 3.9 % 736-9) MONO % (test code = 3.8 % 5905-5) EOS % (test code = 0.1 % 713-8) BASO % (test code = 0.2 % 706-2) GRAN MAT x10^3(ANC) 12.89 10*3/uL 1.99-6.95 H (test code = 0313483618) IMM GRAN x10^3 (test 0.07 10*3/uL 0-0.06 H code = 8537476976) LYMPH x10^3 (test code 0.55 10*3/uL 1.09-3.23 L = 731-0) MONO x10^3 (test code 0.54 10*3/uL 0.36-1.02 = 742-7) EOS x10^3 (test code = <0.03 0.06-0.53 L 711-2) BASO x10^3 (test code 0.03 10*3/uL 0.01-0.09 = 704-7) Lab Interpretation Abnormal (test code = 33331-0) "
--- NOTE | 2022-01-22 10:20 | RAD REPORT ---
EXAM DESCRIPTION: CT - Head C Spine Cap [facility] [place] - 01/22/2022 10:01 am CLINICAL HISTORY: fall, approx 14 ft with loc, back pain, headache COMPARISON: No comparisons TECHNIQUE: Axial [address] head images were obtained. Axial [address] cervical spine images were obtaine d with sagittal and coronal reconstruction images reviewed. During dynamic enhancement of 100mL non-i onic contrast, axial 5 mm images of the chest, abdomen and pelvis were obtained. Biphasic technique p erformed of the abdomen and pelvis. All CT scans are performed using dose optimization technique as appropriate and may include automated exposure control or mA/KV adjustment according to patient size. FINDINGS: No intracranial hemorrhage, mass or edema. No midline shift or abnormal fluid collection. Mastoid air cells and paranasal sinuses are clear. No skull fracture. Physiologic calcifications ar e present along the anterior falx. CT cervical spine imaging shows normal height. Normal alignment of the vertebrae. C6-7 disc space jessica rowing and posterior endplate spurring noted. Facet joint degenerative changes are present. Left-side d bony foraminal encroachment seen at C5-6 with bilateral C6-7 bony foraminal stenosis. No acute para spinal mass or hematoma. Thyroid gland is enlarged. This may be a goiter. Follow-up outpatient sonogr aphy can be performed to determine if there are any discrete or defined thyroid nodules. Central rocco l detail is inherently limited. Concerns for traumatic disc herniation or traumatic cord injury can b e further addressed with MR imaging. CT chest shows no pneumothorax, pulmonary contusion or pleural fluid collection. No mediastinal hemat keaton and the aorta and pulmonary arteries are unremarkable. No chest will mass or abnormal axillary fi nding. No displaced rib fracture or other significant bony finding. CT abdomen and pelvis show no injury to solid abdominal viscera. Liver shows diffuse fatty infiltrati on. Gallbladder and biliary tree are unremarkable. No acute bowel injury. Sigmoid diverticulosis is p resent. No free air, free fluid or abnormal stranding. No urinary bladder abnormality. No acute traumatic injury to the spine or pelvis. Patient has advanced for age SI joint degenerative change along with lower lumbar prominent facet joint degenerative change. Delete No significant vascular finding. IMPRESSION: No significant CT Head finding. No acute CT cervical spine finding. Lower cervical degenerative change present as detailed. Patient has an enlarged thyroid gland. This may be a goiter. Follow-up outpatient sonography can be p erformed for assessment of any possible large nodules. No CT chest traumatic injury identifiable. No acute CT abdomen or pelvis finding. Liver is fatty infiltrated.
--- NOTE | 2022-01-22 10:24 | EDPHYS ---
Physician Documentation [facility] Name: Chente Minaya Age: 51 yrs Sex: Male : 1970 Arrival Date: 01/22/2022 Time: 09:04 Bed 10 Private MD: ED Physician Daren Cuenca HPI: 01/22 09:24 This 51 yrs old Male presents to ER via Ambulatory with complaints of Fall Injury, jmm Abrasion(s), Headache. 09:24 Details of fall: The patient fell from a height, pallet. Onset: The symptoms/episode jmm began/occurred acutely, last night. Associated injuries: The patient sustained injury to the head, neck injury, upper back injury, injury to the low back. The patient has not experienced similar symptoms in the past. Patient complains of headache, neck pain, back pain after falling from a tractor. Patient was on a pallet while being lifted by a pallet. . Historical: - Allergies: 09:22 Bactrim; iw 09:22 mushroom; iw 09:22 Mustard; iw 09:22 PENICILLINS; iw 09:22 Reglan; iw 09:22 Sulfa (Sulfonamide Antibiotics); iw 09:22 surgical steel; iw 09:22 tramadol; iw 09:22 Tylenol-Codeine #3; iw 09:22 Tylenol-Codeine #4; iw ROS: 09:24 Constitutional: Negative for fever, chills, and weight loss. jmm 09:24 Neck: Positive for pain with movement. 09:24 Back: Positive for pain with movement. 09:24 Neuro: Positive for headache, loss of consciousness. 09:24 All other systems are negative. Exam: 09:24 Constitutional: This is a well developed, well nourished patient who is awake, alert, jmm and in no acute distress. 09:24 Eyes: EOMI, no conjunctival erythema appreciated ENT: Moist Mucus Membranes 09:24 Neck: Trachea midline, Supple 09:24 Abdomen/GI: Non distended, soft Back: Normal ROM Skin: General appearance color normal MS/ Extremity: Moves all extremities, no obvious deformities appreciated, no edema noted to the lower extremities Neuro: Awake and alert Psych: Behavior is normal, Mood is normal, Patient is cooperative and pleasant 09:24 Head/face: Noted is a laceration(s), that is superficial, of the forehead. 09:24 Neck: 09:24 Chest/axilla: Inspection: normal, Palpation: tenderness, that is mild, of the right clavicle, left clavicle, anterior aspect of right upper chest and anterior aspect of left upper chest. 09:24 Cardiovascular: Rate: normal, Rhythm: regular, Pulses: no pulse deficits are appreciated. 09:24 Respiratory: the patient does not display signs of respiratory distress, Respirations: normal, Breath sounds: are clear throughout. Vital Signs: 09:21 BP 160 / 95; Pulse 89; Resp 16; Temp 98.6; Pulse Ox 98% on R/A; iw MDM: 09:28 Patient medically screened. [facility] 10:22 Data reviewed: vital signs, nurses notes. Counseling: I had a detailed discussion with [facility] the patient and/or guardian regarding: the historical points, exam findings, and any diagnostic results supporting the discharge/admit diagnosis, radiology results, the need for outpatient follow up, to return to the emergency department if symptoms worsen or persist or if there are any questions or concerns that arise at home. ED course: Imaging studies negative. Patient advised to follow up with pcp and otherwise given strict return precautions. Patient understood and agrees with the plan of care. . 01/22 09:55 Order name: CREATININE WHOLE BLOOD; Complete Time: 10:01 EDMS 01/22 09:23 Order name: CT Traumagram (Head C Spine CAP W Con); Complete Time: 10:22 [facility] 01/22 09:23 Order name: Saline Lock; Complete Time: 09:28 [facility] Administered Medications: No medications were administered Disposition: 13:54 Co-signature as Attending Physician, Daren Cuenca MD I agree with the assessment and kdr plan of care. Disposition Summary: 01/22/22 10:24 Discharge Ordered Location: Home [facility] Condition: Stable [facility] Diagnosis - Unspecified injury of head, initial encounter jmm - Strain of muscle and tendon of back wall of thorax jmm - Strain of muscle, fascia and tendon of abdomen, lower back and pelvis [facility] Followup: [facility] - With: Private Physician - When: 2 - 3 days - Reason: Recheck today's complaints, Continuance of care, Re-evaluation by your physician Discharge Instructions: - Discharge Summary Sheet [facility] - Head Injury, Adult jmm - Thoracic Strain [facility] Forms: - Medication Reconciliation Form jmm - Thank You Letter aletha - Antibiotic Education arenm - Prescription Opioid Use aren - Work release form am2 Prescriptions: - orphenadrine citrate 100 mg Oral Tablet Sustained Release - take 1 tablet by ORAL route 2 times per day As needed; 20 tablet; Refills: 0, jmm Product Selection Permitted Signatures: Dispatcher [employer] Daren You MD MD kdr Mickail, Joel, PA PA jmm Williams, Irene RN RN iw
--- NOTE | 2022-01-22 10:24 | ER ---
Nurse's Notes [facility] Name: Chente Minaya Age: 51 yrs Sex: Male : 1970 Arrival Date: 01/22/2022 Time: 09:04 Bed 10 Private MD: Diagnosis: Unspecified injury of head, initial encounter;Strain of muscle and tendon of back wall of thorax;Strain of muscle, fascia and tendon of abdomen, lower back and pelvis Presentation: 01/22 09:20 Chief complaint: Patient states: fell off front end of a tractor, was standing on the iw pallet , happened last night , no has headache and soreness in neck and shoulder and back. Care prior to arrival: None. 09:20 Acuity: GILDARDO 4 iw 09:20 Method Of Arrival: Ambulatory iw :28 Coronavirus screen: At this time, the client does not indicate any symptoms associated iw with coronavirus-19. Ebola Screen: Patient negative for fever greater than or equal to 101.5 degrees Fahrenheit, and additional compatible Ebola Virus Disease symptoms Patient denies exposure to infectious person. Patient denies travel to an Ebola-affected area in the 21 days before illness onset. No symptoms or risks identified at this time. Initial Sepsis Screen: Does the patient meet any 2 criteria? No. Patient's initial sepsis screen is negative. Does the patient have a suspected source of infection? No. Patient's initial sepsis screen is negative. Risk Assessment: Do you want to hurt yourself or someone else? Patient reports no desire to harm self or others. Onset of symptoms was January 21, 2022. 09:28 Acuity: GILDARDO 3 iw Historical: - Allergies: 09:22 Bactrim; iw 09:22 mushroom; iw 09:22 Mustard; iw 09:22 PENICILLINS; iw 09:22 Reglan; iw 09:22 Sulfa (Sulfonamide Antibiotics); iw 09:22 surgical steel; iw 09:22 tramadol; iw 09:22 Tylenol-Codeine #3; iw 09:22 Tylenol-Codeine #4; iw Screenin:32 Abuse screen: Denies threats or abuse. Denies injuries from another. Nutritional iw screening: No deficits noted. Tuberculosis screening: No symptoms or risk factors identified. Fall Risk Fall in past 12 months (25 points). Assessment: 09:32 General: Appears in no apparent distress. Behavior is calm, cooperative. Pain: iw Complains of pain in anterior aspect of left upper chest and anterior aspect of right upper chest and left clavicle and right clavicle and forehead. Neuro: Knox Agitation-Sedation Scale (RASS): 0 - Alert and Calm Level of Consciousness is awake, alert, obeys commands. 10:15 Reassessment: Patient appears in no apparent distress at this time. Patient and/or iw family updated on plan of care and expected duration. Pain level reassessed. Patient is alert, oriented x 3, equal unlabored respirations, skin warm/dry/pink. Vital Signs: 09:21 BP 160 / 95; Pulse 89; Resp 16; Temp 98.6; Pulse Ox 98% on R/A; iw ED Course: 09:04 Patient arrived in ED. am2 09:16 Robert Villalobos PA is PHCP. aren 09:16 Daren Cuenca MD is Attending Physician. [facility] 09:21 Triage completed. iw 09:28 Inserted saline lock: 20 gauge in left antecubital area, using aseptic technique. Blood iw collected. 09:49 Shiloh Corbin, RN is Primary Nurse. iw 10:04 CT Traumagram (Head C Spine CAP W Con) In Process Unspecified. EDMS 10:15 Patient has correct armband on for positive identification. iw Administered Medications: No medications were administered Outcome: 10:24 Discharge ordered by . [facility] 10:46 Patient left the ED. iw Signatures: Dispatcher [employer] EDMS Robert Villalobos PA PA jmm Williams, Irene, RN RN iw Bruna Whyte am2
[2022-01-22 10:57] VITALS: BP 160/95; TEMP 98.6; O2SAT 98
== END 2022-01-22 10:46 | disposition home or self-care (01) ==
LOC: ER 09:03
DX: S01.81XA Laceration without foreign body of other part of head, initial encounter (principal); S29.012A Strain of muscle and tendon of back wall of thorax, initial encounter; S39.012A Strain of muscle, fascia and tendon of lower back, initial encounter; S39.013A Strain of muscle, fascia and tendon of pelvis, initial encounter; R51.9 Headache, unspecified; W17.89XA Other fall from one level to another, initial encounter; Z88.0 Allergy status to penicillin; Z88.1 Allergy status to other antibiotic agents; Z88.2 Allergy status to sulfonamides; Z88.5 Allergy status to narcotic agent; Z88.6 Allergy status to analgesic agent; Z91.018 Allergy to other foods; Z91.048 Other nonmedicinal substance allergy status
CPT/HCPCS: 82565; 70450; 72125; 71260; 74177; Q9967; 99283

== ENCOUNTER 2022-03-22 21:27 | Emergency (ER) | payer OTHER ==
[2022-03-22] MEDS ORDERED: DIPHENHYDRAMINE 50 MG/ML VIAL ONE (22:37)
[2022-03-22] MEDS ORDERED: ONDANSETRON 4 MG/2 ML VIAL ONE (22:37)
[2022-03-22] MEDS ORDERED: HYDROMORPHONE HCL 1 MG/ML INJ ONE (22:37)
[2022-03-22] MEDS ORDERED: NA CHLORIDE 0.9% 1,000 ML ONE (22:37)
[2022-03-22] MEDS ORDERED: KETOROLAC 30 MG/ML INJ ONE (22:37)
[2022-03-22 22:52] LABS: Absolute Lymphocytes (CBC) 1.6 K/uL (0.7-4.9); Hematocrit 48.6 % (39.6-49.0); Lymphocytes % 21.9 % (15.3-44.8); MCV 79.6 fL (80-100)
--- NOTE | 2022-03-22 23:04 | EDPHYS ---
Physician Documentation [facility] Name: Chente Minaya Age: 51 yrs Sex: Male : 1970 Arrival Date: 03/22/2022 Time: 21:29 Bed 15 Private MD: BRYAN Physician Saurav Blount HPI: 03/22 22:25 This 51 yrs old Male presents to ER via Ambulatory with complaints of jermaine Headache. 22:25 The patient complains of pain to the forehead, left frontal area, left side of the back jermaine of head, left occipital area, left base of the skull, right frontal area, right side of the back of head, right temporal area, right occipital area and right base of the skull. The patient describes the headache as constant. Onset: The symptoms/episode began/occurred 2 day(s) ago. Associated signs and symptoms: Pertinent positives: nausea. Severity of symptoms: At its worst the pain was moderate, in the emergency department the pain is unchanged. Headache History: The patient has had previous headaches and this one is similar to previous episodes. The symptoms are alleviated by quiet, remaining still, the symptoms are aggravated by lights, movement, noise, stress. The patient has experienced similar episodes in the past, multiple times. Historical: - Allergies: 21:41 Bactrim; tw5 21:41 mushroom; tw5 21:41 Mustard; tw5 21:41 PENICILLINS; tw5 21:41 Reglan; tw5 21:41 Sulfa (Sulfonamide Antibiotics); tw5 21:41 surgical steel; tw5 21:41 tramadol; tw5 21:41 Tylenol-Codeine #3; tw5 21:41 Tylenol-Codeine #4; tw5 - Home Meds: 21:41 levemir 30 units twice a day [Active]; Testosterpme injection Weekly [Active]; tw5 anastrozole 1 mg oral tab [Active]; tadalafil 20 mg oral tab 1 tab once daily [Active]; glipizide 10 mg Oral tab 1 tab once daily [Active]; Fioricet Oral [Active]; Zofran Oral [Active]; - Immunization history:: Flu vaccine is not up to date. - Social history:: Smoking status: Patient/guardian denies using tobacco, but has a distant history of tobacco abuse. - Family history:: not pertinent. ROS: 22:25 Constitutional: Negative for fever, chills, and weight loss, Eyes: Negative for injury, jermaine pain, redness, and discharge, ENT: Negative for injury, pain, and discharge, Neck: Negative for injury, pain, and swelling, Cardiovascular: Negative for chest pain, palpitations, and edema, Respiratory: Negative for shortness of breath, cough, wheezing, and pleuritic chest pain, Abdomen/GI: Negative for abdominal pain, nausea, vomiting, diarrhea, and constipation, Back: Negative for injury and pain, : Negative for injury, bleeding, discharge, and swelling, MS/Extremity: Negative for injury and deformity, Skin: Negative for injury, rash, and discoloration, Psych: Negative for depression, anxiety, suicide ideation, homicidal ideation, and hallucinations, Allergy/Immunology: Negative for hives, rash, and allergies, Endocrine: Negative for neck swelling, polydipsia, polyuria, polyphagia, and marked weight changes, Hematologic/Lymphatic: Negative for swollen nodes, abnormal bleeding, and unusual bruising. 22:25 Neuro: Positive for headache. Exam: 22:25 Constitutional: This is a well developed, well nourished patient who is awake, alert, jermaine and in no acute distress. Head/Face: Normocephalic, atraumatic. Eyes: Pupils equal round and reactive to light, extra-ocular motions intact. Lids and lashes normal. Conjunctiva and sclera are non-icteric and not injected. Cornea within normal limits. Periorbital areas with no swelling, redness, or edema. ENT: Nares patent. No nasal discharge, no septal abnormalities noted. Tympanic membranes are normal and external auditory canals are clear. Oropharynx with no redness, swelling, or masses, exudates, or evidence of obstruction, uvula midline. Mucous membranes moist. Neck: Trachea midline, no thyromegaly or masses palpated, and no cervical lymphadenopathy. Supple, full range of motion without nuchal rigidity, or vertebral point tenderness. No Meningismus. Chest/axilla: Normal chest wall appearance and motion. Nontender with no deformity. No lesions are appreciated. Cardiovascular: Regular rate and rhythm with a normal S1 and S2. No gallops, murmurs, or rubs. Normal PMI, no JVD. No pulse deficits. Respiratory: Lungs have equal breath sounds bilaterally, clear to auscultation and percussion. No rales, rhonchi or wheezes noted. No increased work of breathing, no retractions or nasal flaring. Abdomen/GI: Soft, non-tender, with normal bowel sounds. No distension or tympany. No guarding or rebound. No evidence of tenderness throughout. Back: No spinal tenderness. No costovertebral tenderness. Full range of motion. Male : Normal genitalia with no discharge or lesions. Skin: Warm, dry with normal turgor. Normal color with no rashes, no lesions, and no evidence of cellulitis. MS/ Extremity: Pulses equal, no cyanosis. Neurovascular intact. Full, normal range of motion. Neuro: Awake and alert, GCS 15, oriented to person, place, time, and situation. Cranial nerves II-XII grossly intact. Motor strength 5/5 in all extremities. Sensory grossly intact. Cerebellar exam normal. Normal gait. Psych: Awake, alert, with orientation to person, place and time. Behavior, mood, and affect are within normal limits. 22:25 Neck: ROM/movement: is normal, no acute changes, Meningeal signs: are not present, Kernig's sign is negative, Brudzinski's sign is negative. Vital Signs: 21:39 BP 147 / 85; Pulse 91; Resp 16; Temp 98.5; Pulse Ox 98% on R/A; Weight 129.27 kg; tw5 Height 6 ft. 2 in. (187.96 cm); Pain 8/10; 21:39 Body Mass Index 36.59 (129.27 kg, 187.96 cm) tw5 Carol Coma Score: 22:27 Eye Response: spontaneous(4). Verbal Response: oriented(5). Motor Response: obeys jermaine commands(6). Total: 15. MDM: 22:02 Patient medically screened. jermaine 22:27 Differential diagnosis: cluster headache, hypertensive headache, migraine, sinusitis, jermaine subarachnoid bleed, subdural hematoma, trigeminal neuralgia, vasomotor headache. Data reviewed: vital signs, nurses notes, lab test result(s), CBC, electrolytes, hepatic panel. Data interpreted: quality assurance monitor body: rate is 91 beats/min, rhythm is regular. Test interpretation: by ED physician or midlevel provider:. Counseling: I had a detailed discussion with the patient and/or guardian regarding: the historical points, exam findings, and any diagnostic results supporting the discharge/admit diagnosis, lab results. 03/22 22:24 Order name: CBC with Diff; Complete Time: 23:03 [facility] 03/22 22:24 Order name: Comprehensive Metabolic Panel; Complete Time: 23:11 [facility] 03/22 22:24 Order name: Oxygen; Complete Time: 23:15 jermaine Administered Medications: 22:43 Drug: NS 0.9% 1000 ml Route: IV; Rate: 1 bolus; Site: right antecubital; vc1 23:35 Follow up: IV Status: Completed infusion; IV Intake: 750ml vc1 22:43 Drug: Ketorolac 30 mg Route: IVP; Site: right antecubital; vc1 23:35 Follow up: Response: No adverse reaction; Marked relief of symptoms vc1 22:43 Drug: Benadryl (diphenhydrAMINE) 50 mg Route: IVP; Site: right antecubital; vc1 23:35 Follow up: Response: No adverse reaction; Marked relief of symptoms vc1 22:43 Drug: Zofran (Ondansetron) 4 mg Route: IVP; Site: right antecubital; vc1 23:35 Follow up: Response: No adverse reaction; Marked relief of symptoms vc1 22:43 Drug: Dilaudid (HYDROmorphone) 1 mg Route: IVP; Site: right antecubital; vc1 23:35 Follow up: Response: No adverse reaction; Marked relief of symptoms vc1 23:35 Not Given (Patient Refused): Dilaudid (HYDROmorphone) 1 mg IVP once; if needed vc1 Disposition Summary: 03/22/22 23:04 Discharge Ordered Location: Home jermaine Problem: new jermaine Symptoms: have improved jermaine Condition: Stable jermaine Diagnosis - Headache jermaine - Migraine with aura, not intractable, without status migrainosus jermaine - Dehydration jermaine Followup: jermaine - With: Private Physician - When: 2 - 3 days - Reason: Recheck today's complaints, Continuance of care, Re-evaluation by your physician Followup: jermaine - With: - When: 2 - 3 days - Reason: Recheck today's complaints, Continuance of care, Re-evaluation by your physician Discharge Instructions: - Discharge Summary Sheet jermaine - Dehydration, Adult ejrmaine - Migraine Headache jermaine - Migraine Headache, [id number] jermaine - Rehydration, Adult jermaine Forms: - Medication Reconciliation Form jermaine - Thank You Letter jermaine - Antibiotic Education jermaine - Prescription Opioid Use jermaine Prescriptions: - Zofran 4 mg Oral Tablet - take 1 tablet by ORAL route every 12 hours As needed; 20 tablet; Refills: 0, jermaine Product Selection Permitted Signatures: Dispatcher [employer] Saurav Sawyer MD MD cha Wood, Tiffany tw5 Eva Almaraz RN RN vc1
--- NOTE | 2022-03-22 23:04 | ER ---
Nurse's Notes [facility] Name: Chente Minaya Age: 51 yrs Sex: Male : 1970 Arrival Date: 03/22/2022 Time: 21:29 Bed 15 Private MD: Diagnosis: Headache;Migraine with aura, not intractable, without status migrainosus;Dehydration Presentation: 03/22 21:39 Chief complaint: Patient states: "I have had a severe migraine for the past 4 days. The [facility] [place] medications are not cutting it. I been drinking water and I even bought one of those boost oxygen, because I was told if you get some extra oxygen it can help.". Coronavirus screen: Vaccine status: Patient reports being unvaccinated. Ebola Screen: Patient negative for fever greater than or equal to 101.5 degrees Fahrenheit, and additional compatible Ebola Virus Disease symptoms Patient denies exposure to infectious person. Patient denies travel to an Ebola-affected area in the 21 days before illness onset. Initial Sepsis Screen: Does the patient meet any 2 criteria? No. Patient's initial sepsis screen is negative. Does the patient have a suspected source of infection? No. Patient's initial sepsis screen is negative. Risk Assessment: Do you want to hurt yourself or someone else? Patient reports no desire to harm self or others. Onset of symptoms was March 18, 2022. 21:39 Method Of Arrival: Ambulatory tw5 21:39 Acuity: GILDARDO 3 tw5 Triage Assessment: 21:41 Headache History: The patient has had previous headaches and this one is similar to tw5 previous episodes. General: Appears in no apparent distress. Behavior is calm, cooperative, appropriate for age. Pain: Pain currently is 8 out of 10 on a pain scale. Pain began 2-3 days ago. Neuro: Level of Consciousness is awake, alert, obeys commands, Oriented to person, place, time, situation. Historical: - Allergies: 21:41 Bactrim; tw 21:41 mushroom; tw 21:41 Mustard; tw 21:41 PENICILLINS; tw 21:41 Reglan; 21:41 Sulfa (Sulfonamide Antibiotics); 21:41 surgical steel; 21:41 tramadol; 21:41 Tylenol-Codeine #3; tw5 21:41 Tylenol-Codeine #4; tw5 - Home Meds: 21:41 levemir 30 units twice a day [Active]; Testosterpme injection Weekly [Active]; tw5 anastrozole 1 mg oral tab [Active]; tadalafil 20 mg oral tab 1 tab once daily [Active]; glipizide 10 mg Oral tab 1 tab once daily [Active]; Fioricet Oral [Active]; Zofran Oral [Active]; - Immunization history:: Flu vaccine is not up to date. - Social history:: Smoking status: Patient/guardian denies using tobacco, but has a distant history of tobacco abuse. - Family history:: not pertinent. Screenin:44 Abuse screen: Denies threats or abuse. Denies injuries from another. Nutritional tw5 screening: No deficits noted. Tuberculosis screening: No symptoms or risk factors identified. Fall Risk None identified. Assessment: 22:00 Reassessment: See triage assessment. General:. vc1 23:37 Reassessment: Patient and/or family updated on plan of care and expected duration. Pain vc1 level reassessed. Patient is alert, oriented x 3, equal unlabored respirations, skin warm/dry/pink. Patient states feeling better. Patient states symptoms have improved. Vital Signs: 21:39 BP 147 / 85; Pulse 91; Resp 16; Temp 98.5; Pulse Ox 98% on R/A; Weight 129.27 kg; tw5 Height 6 ft. 2 in. (187.96 cm); Pain 8/10; 21:39 Body Mass Index 36.59 (129.27 kg, 187.96 cm) tw5 [place] Coma Score: 22:27 Eye Response: spontaneous(4). Verbal Response: oriented(5). Motor Response: obeys jermaine commands(6). Total: 15. ED Course: 21:29 Patient arrived in ED. bp1 21:41 Triage completed. tw5 21:41 Arm band placed on left wrist. tw5 21:44 No provider procedures requiring assistance completed. tw5 21:56 Eva Almaraz, CORA is Primary Nurse. vc1 22:02 Saurav Blount MD is Attending Physician. jermaine 23:04 Travis Figueroa MD is Referral Physician. jermaine 23:36 Patient has correct armband on for positive identification. vc1 23:36 IV discontinued, intact, bleeding controlled, No redness/swelling at site. Pressure vc1 dressing applied. Administered Medications: 22:43 Drug: NS 0.9% 1000 ml Route: IV; Rate: 1 bolus; Site: right antecubital; vc1 23:35 Follow up: IV Status: Completed infusion; IV Intake: 750ml vc1 22:43 Drug: Ketorolac 30 mg Route: IVP; Site: right antecubital; vc1 23:35 Follow up: Response: No adverse reaction; Marked relief of symptoms vc1 22:43 Drug: Benadryl (diphenhydrAMINE) 50 mg Route: IVP; Site: right antecubital; vc1 23:35 Follow up: Response: No adverse reaction; Marked relief of symptoms vc1 22:43 Drug: Zofran (Ondansetron) 4 mg Route: IVP; Site: right antecubital; vc1 23:35 Follow up: Response: No adverse reaction; Marked relief of symptoms vc1 22:43 Drug: Dilaudid (HYDROmorphone) 1 mg Route: IVP; Site: right antecubital; vc1 23:35 Follow up: Response: No adverse reaction; Marked relief of symptoms vc1 23:35 Not Given (Patient Refused): Dilaudid (HYDROmorphone) 1 mg IVP once; if needed vc1 Medication: 23:36 VIS not applicable for this client. vc1 Intake: 23:35 IV: 750ml; Total: 750ml. vc1 Outcome: 23:04 Discharge ordered by MD. dean 23:36 Discharged to home ambulatory, with family. vc1 23:36 Condition: good 23:36 Discharge instructions given to patient, Instructed on discharge instructions, follow up and referral plans. medication usage, Demonstrated understanding of instructions, follow-up care, medications, Prescriptions given X 1. 23:37 Patient left the ED. vc1 Signatures: Saurav Blount MD MD cha Paniauga, Brittany bp1 Wood, Tiffany tw5 Eva Almaraz, RN RN vc1
[2022-03-22 23:09] LABS: Albumin 3.8 g/dL (3.4-5.0); Bilirubin Total 0.8 mg/dL (0.2-1.0); Potassium 4.1 mmol/L (3.5-5.1); Protein, Total 7.4 g/dL (6.4-8.2)
[2022-03-23 00:51] VITALS: BP 147/85; TEMP 98.5; O2SAT 98
== END 2022-03-22 23:37 | disposition home or self-care (01) ==
LOC: ER 21:27
DX: G43.109 Migraine with aura, not intractable, without status migrainosus (principal); E86.0 Dehydration; Z88.0 Allergy status to penicillin; Z88.1 Allergy status to other antibiotic agents; Z88.2 Allergy status to sulfonamides; Z88.5 Allergy status to narcotic agent; Z88.6 Allergy status to analgesic agent; Z88.8 Allergy status to other drugs, medicaments and biological substances; Z91.018 Allergy to other foods
CPT/HCPCS: 85025; 36415; 80053; J1200; J1170; J7030; J2405

== ENCOUNTER 2022-04-11 20:47 | Emergency (ER) | payer OTHER ==
[2022-04-11] MEDS ORDERED: DIPHENHYDRAMINE 50 MG/ML VIAL ONE (21:33)
[2022-04-11] MEDS ORDERED: NA CHLORIDE 0.9% 1,000 ML ONE (21:33)
[2022-04-11] MEDS ORDERED: dexAMETHasone 10 MG/ML VIAL ONE (21:33)
[2022-04-11] MEDS ORDERED: HYDROMORPHONE HCL 0.5 MG/0.5 ML INJ ONE (22:08)
--- NOTE | 2022-04-11 22:35 | ER ---
Nurse's Notes [facility] Name: Chente Minaya Age: 51 yrs Sex: Male : 1970 Arrival Date: 04/11/2022 Time: 20:50 Bed DIS2 Private MD: Diagnosis: Migraine without aura, not intractable, without status migrainosus Presentation: 04/11 21:21 Chief complaint: Patient states: "I have a severe migraine. Right now it it is still tw5 down to about an 8.". Coronavirus screen: Vaccine status: Patient reports being unvaccinated. Ebola Screen: Patient negative for fever greater than or equal to 101.5 degrees Fahrenheit, and additional compatible Ebola Virus Disease symptoms Patient denies exposure to infectious person. Patient denies travel to an Ebola-affected area in the 21 days before illness onset. Initial Sepsis Screen: Does the patient meet any 2 criteria? No. Patient's initial sepsis screen is negative. Does the patient have a suspected source of infection? No. Patient's initial sepsis screen is negative. Risk Assessment: Do you want to hurt yourself or someone else? Patient reports no desire to harm self or others. Onset of symptoms was April 10, 2022. 21:21 Method Of Arrival: Ambulatory tw5 21:21 Acuity: GILDARDO 3 tw5 Triage Assessment: 21:22 Headache History: The patient has had previous headaches and this one is similar to tw5 previous episodes. General: Appears in no apparent distress. Behavior is calm, cooperative, appropriate for age. Pain: Pain currently is 8 out of 10 on a pain scale. Pain began 1 day ago. Also complains of photophobia. Neuro: Level of Consciousness is awake, alert, obeys commands, Oriented to person, place, time, situation. Historical: - Allergies: 21:22 Bactrim; tw 21:22 mushroom; tw 21:22 Mustard; tw 21:22 PENICILLINS; tw 21:22 Reglan; tw 21:22 Sulfa (Sulfonamide Antibiotics); 21:22 surgical steel; tw 21:22 tramadol; tw 21:22 Tylenol-Codeine #3; tw 21:22 Tylenol-Codeine #4; tw5 - Immunization history:: Flu vaccine is not up to date. - Social history:: Smoking status: Patient denies any tobacco usage or history of. - Family history:: not pertinent. - Hospitalizations: : No recent hospitalization is reported. Screenin:57 Abuse screen: Denies threats or abuse. Nutritional screening: No deficits noted. vc1 Tuberculosis screening: No symptoms or risk factors identified. Fall Risk None identified. Assessment: 22:57 Reassessment: Patient and/or family updated on plan of care and expected duration. Pain vc1 level reassessed. Patient is alert, oriented x 3, equal unlabored respirations, skin warm/dry/pink. Patient states feeling better. Patient states symptoms have improved. Vital Signs: 21:21 BP 133 / 81; Pulse 91; Resp 18; Temp 98.7; Pulse Ox 98% ; Weight 129.27 kg; Height 6 tw5 ft. 2 in. (187.96 cm); Pain 8/10; 21:21 Body Mass Index 36.59 (129.27 kg, 187.96 cm) tw5 [place] Coma Score: 22:33 Eye Response: spontaneous(4). Verbal Response: oriented(5). Motor Response: obeys rn commands(6). Total: 15. ED Course: 20:50 Patient arrived in ED. bp1 20:51 Juan A Jarrell MD is Attending Physician. rn 21:22 Triage completed. tw5 21:23 Arm band placed on. tw5 21:36 Inserted saline lock: 20 gauge in left antecubital area, using aseptic technique. tw5 22:57 No provider procedures requiring assistance completed. IV discontinued, intact, vc1 bleeding controlled, No redness/swelling at site. Pressure dressing applied. Administered Medications: 21:35 Drug: Benadryl (diphenhydrAMINE) 25 mg Route: IVP; Site: left antecubital; tw5 22:49 Follow up: Response: No adverse reaction; Pain is decreased vc1 21:36 Drug: Decadron - Dexamethasone 10 mg Route: IVP; Site: left antecubital; tw5 22:49 Follow up: Response: No adverse reaction; Marked relief of symptoms vc1 21:36 Drug: NS 0.9% 1000 ml Route: IV; Rate: 1000 ml; Site: left antecubital; tw5 22:04 Drug: Dilaudid (HYDROmorphone) 1 mg Route: IVP; Site: left antecubital; tw5 22:49 Follow up: Response: No adverse reaction; Pain is decreased vc1 22:49 Drug: Dilaudid (HYDROmorphone) 1 mg Route: IVP; Site: left antecubital; vc1 22:49 Follow up: Response: Adverse reaction, Physician notified; Pain is decreased vc1 Medication: 22:57 VIS not applicable for this client. vc1 Outcome: 22:34 Discharge ordered by . rn 22:57 Discharged to home ambulatory. vc1 22:57 Condition: good 22:57 Discharge instructions given to patient, Instructed on discharge instructions, follow up and referral plans. Demonstrated understanding of instructions, follow-up care. 22:58 Patient left the ED. vc1 Signatures: Juan A Jarrell MD MD rn Paniauga, Brittany bp1 Wood, Tiffany tw5 Eva Almaraz RN RN vc1
--- NOTE | 2022-04-11 22:35 | EDPHYS ---
Physician Documentation [facility] Name: Chente Minaya Age: 51 yrs Sex: Male : 1970 Arrival Date: 04/11/2022 Time: 20:50 Bed DIS2 Private MD: ED Physician Juan A Jarrell HPI: 04/11 21:23 This 51 yrs old Male presents to ER via Ambulatory with complaints of Headache. rn 21:23 The patient complains of pain to the top of head and forehead. The patient describes rn the headache as aching. Onset: The symptoms/episode began/occurred 3 day(s) ago. Associated signs and symptoms: Pertinent positives: nausea, Pertinent negatives: fever, neck stiffness, rash, vision changes, vision loss, weakness, vertigo. Severity of symptoms: At its worst the pain was moderate, "similar to past headaches", in the emergency department the pain is unchanged. Headache History: The patient has had previous headaches and this one is similar to previous episodes. The symptoms are alleviated by nothing. the symptoms are aggravated by nothing. The patient has not experienced similar symptoms in the past. The patient has not recently seen a physician. Pt reports headache, identical to previous migraines, began 2-3 days ago, takes fiorcet and zofran and not taking pain away. No new symptoms. No fever. NO neck stiffness. REports usually comes in a gets "headache cocktail and dialudid". Here with another patient. Reports neg home COVID test. Historical: - Allergies: 21:22 Bactrim; tw5 21:22 mushroom; tw5 21:22 Mustard; tw5 21:22 PENICILLINS; tw5 21:22 Reglan; tw5 21:22 Sulfa (Sulfonamide Antibiotics); tw5 21:22 surgical steel; tw5 21:22 tramadol; tw5 21:22 Tylenol-Codeine #3; tw5 21:22 Tylenol-Codeine #4; tw5 - Immunization history:: Flu vaccine is not up to date. - Social history:: Smoking status: Patient denies any tobacco usage or history of. - Family history:: not pertinent. - Hospitalizations: : No recent hospitalization is reported. ROS: 21:23 Constitutional: Negative for fever, chills, and weight loss, Eyes: Negative for injury, rn pain, redness, and discharge, Neck: Negative for injury, pain, and swelling, Cardiovascular: Negative for chest pain, palpitations, and edema, Respiratory: Negative for shortness of breath, cough, wheezing, and pleuritic chest pain, Abdomen/GI: Negative for abdominal pain,vomiting, diarrhea, and constipation, Back: Negative for injury and pain, MS/Extremity: Negative for injury and deformity, Skin: Negative for injury, rash, and discoloration, Neuro: Negative for weakness, numbness, tingling, and seizure. Exam: 21:23 Constitutional: This is a well developed, well nourished patient who is awake, alert, rn and in no acute distress. Appears very comfortable, leaning on triage entrance as person he is with is being triaged. Head/Face: Normocephalic, atraumatic. Neck: Supple, full range of motion without nuchal rigidity. No Meningismus. Cardiovascular: Regular rate and rhythm. No pulse deficits. Respiratory: No increased work of breathing, no retractions or nasal flaring. Skin: Warm, dry MS/ Extremity: Pulses equal, no cyanosis Neuro: Awake and alert, GCS 15. Motor strength 5/5 in all extremities. Cerebellar exam normal. Normal gait. Vital Signs: 21:21 BP 133 / 81; Pulse 91; Resp 18; Temp 98.7; Pulse Ox 98% ; Weight 129.27 kg; Height 6 tw5 ft. 2 in. (187.96 cm); Pain 8/10; 21:21 Body Mass Index 36.59 (129.27 kg, 187.96 cm) tw5 [place] Coma Score: 22:33 Eye Response: spontaneous(4). Verbal Response: oriented(5). Motor Response: obeys rn commands(6). Total: 15. MDM: 20:51 Patient medically screened. rn 22:33 Differential diagnosis: migraine. Data reviewed: vital signs, nurses notes, old medical rn records, and as a result, I will discharge patient. Counseling: I had a detailed discussion with the patient and/or guardian regarding: the historical points, exam findings, and any diagnostic results supporting the discharge/admit diagnosis, the need for outpatient follow up, to return to the emergency department if symptoms worsen or persist or if there are any questions or concerns that arise at home. Response to treatment: the patient's symptoms have mildly improved after treatment, and as a result, I will discharge patient. Special discussion: I discussed with the patient/guardian in detail that at this point there is no indication for admission to the hospital. It is understood, however, that if the symptoms persist or worsen the patient needs to return immediately for re-evaluation. Based on the history and exam findings, there is no indication for further emergent testing or inpatient evaluation. I discussed with the patient/guardian the need to see the neurologist for further evaluation of the symptoms. ED course: Pt states improved but still 6 or 7/10 pain, states usually gets another dose of dilaudid. Pt does not appear uncomfortable at all, either at triage or in chair, is using phone currently. Will repeat dilaudid given report of pain but then dc home with return precautions. Pt states has appt coming up with new neurologist next week.. 04/11 21:18 Order name: IV Start; Complete Time: 21:35 rn Administered Medications: 21:35 Drug: Benadryl (diphenhydrAMINE) 25 mg Route: IVP; Site: left antecubital; tw5 22:49 Follow up: Response: No adverse reaction; Pain is decreased vc1 21:36 Drug: Decadron - Dexamethasone 10 mg Route: IVP; Site: left antecubital; tw5 22:49 Follow up: Response: No adverse reaction; Marked relief of symptoms vc1 21:36 Drug: NS 0.9% 1000 ml Route: IV; Rate: 1000 ml; Site: left antecubital; tw5 22:04 Drug: Dilaudid (HYDROmorphone) 1 mg Route: IVP; Site: left antecubital; tw5 22:49 Follow up: Response: No adverse reaction; Pain is decreased vc1 22:49 Drug: Dilaudid (HYDROmorphone) 1 mg Route: IVP; Site: left antecubital; vc1 22:49 Follow up: Response: Adverse reaction, Physician notified; Pain is decreased vc1 Disposition Summary: 04/11/22 22:34 Discharge Ordered Location: Home rn Problem: an acute exacerbation rn Symptoms: have improved rn Condition: Stable rn Diagnosis - Migraine without aura, not intractable, without status migrainosus rn Followup: rn - With: Private Physician - When: As needed - Reason: Recheck today's complaints, Re-evaluation by your physician Discharge Instructions: - Discharge Summary Sheet rn - Migraine Headache rn - Recurrent Migraine Headache rn Forms: - Medication Reconciliation Form rn - Thank You Letter rn - 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 No new symptoms. No fever. NO neck stiffness. REports usually comes in a gets "headache cocktail and dialudid". Here with another patient. . rn
[2022-04-11] MEDS ORDERED: HYDROMORPHONE HCL 1 MG/ML INJ ONE (22:51)
[2022-04-12 03:19] VITALS: BP 133/81; TEMP 98.7; O2SAT 98
== END 2022-04-11 22:58 | disposition home or self-care (01) ==
LOC: ER 20:47
DX: G43.009 Migraine without aura, not intractable, without status migrainosus (principal); Z88.0 Allergy status to penicillin; Z88.1 Allergy status to other antibiotic agents; Z88.2 Allergy status to sulfonamides; Z88.5 Allergy status to narcotic agent; Z88.8 Allergy status to other drugs, medicaments and biological substances; Z91.018 Allergy to other foods; Z91.048 Other nonmedicinal substance allergy status
CPT/HCPCS: 96375; 96374; 99283; J1200; J1100; J1170 ×2; J7030

== ENCOUNTER 2022-05-25 18:48 | Emergency (ER) | payer OTHER ==
--- OUTSIDE RECORDS SUMMARY | 2022-05-25 18:53 | XMS REPORT | Continuity of Care Document ---
:1970 Author Organization Formerly [facility] t Address [address] [place] [address] Care Team Providers Name Role Phone PCP, PATIENT DOES NOT HAVE A Primary Care Physician UnavailSILVINA Iglesias Attending Clinician Unavailable Norberto Bernal MD Attending Clinician NORBERTO BERNAL Attending Clinician Unavailable NORBERTO BERNAL Attending Clinician Unavailable Yazmin Ashby Attending Clinician Yazmin APPLE Attending Clinician Unavailable Doctor Unassigned, [place] Attending Clinician Unavailable Meggan Adamson Attending Clinician Hortensia Nicolas Attending Clinician Ervin Rhoades MD Attending Clinician Luis Arshad MD Attending Clinician LUIS ARSHAD Attending Clinician Unavailable Luis Arshad MD Admitting Clinician LUIS ARSHAD Admitting Clinician Unavailable Problems Condition Condition Condition Status Onset Resolution Last Treating Co mments Source Name Details Category Date Date Treatment Clinician Date Abdominal Abdominal Disease Active Uni vers pain pain 2-20 ity of 00:00: [address] Obesity Obesity Disease Active Univers (BMI (BMI 2-19 ity of 30-39.9) 30-39.9) 00:00: [place] 00 Medical Branch Acute Acute Disease Active Univers postoperat postoperat 2-19 it y of [...] Quantity Comments Source Exposure to Not sure [place] of SARS-CoV-2 [facility] (event) Branch Sex Assigned At Universit y of [facility] Branch Tobacco use and 2020-04-24 2020-04-24 Never used Universit y of exposure 00:00:00 00:00:00 [facility] Branch Alcohol intake 2020-04-24 2020-04-24 Current drinker Unive rsity of 00:00:00 00:00:00 of alcohol [facility] (finding) Branch History SDOH 2019-11-03 2019-11-03 5 University o f Financial 00:00:00 00:00:00 [facility] Smoking Status Start Date Stop Date Source Former smoker 2020-04-24 00:00:00 2020-04-24 00:00:00 [facility] Medications Ordered Filled Start Stop Current Ordering Indication Dosage Frequency Signature Comments Components Source Medication Medication Date Date Medication? Clinician (SIG) Name Name divalproex 2020-0 Yes [id number] 250mg Take 1 Univers ER 250 mg 8-10 tablet by ity o f 24 hr 00:00: mouth 2 [place] tablet 00 (two) Medical times [place] daily. divalproex 2020-0 Yes [id number] 250mg Take 1 Univers ER 250 mg 8-10 tablet by ity o f 24 hr 00:00: mouth 2 [place] tablet 00 (two) Medical times [place] daily. water for 0 Yes PRN, Univers irrigation 7-24 Starting ity o f irrigation 03:19: Angelina [place] solution 00 04/06/20 at Medic al 221, [place] Until Discontinu ed, Routine, Intra-op simethicone 0 Yes PRN, Univer s (GAS RELIEF 24 Starting ity of (SIMETHICON 03:19: Angelina [place] E)) 40 00 04/06/20 at Medical mg/0.6 mL 2218, [place] drops Until Discontinu ed, Routine, Intra-op glucagon [...] Sat Med ical tablet 1 02/19/20 at [place] tablet 2015, MANDEEP NaCl 0.9% 2020-0 2020- No 1000mL at 999 Uni vers (NS) bolus 02-18-06 mL/hr, ity of infusion 23:00: 23:28 1,000 mL, Danie as 1,000 mL 00 :00 IV Medical Infusion, [place] ONCE, 1 dose, 02/19/20 at 1800, STAT morpHINE 2020-0 2020- No 4mg 4 mg, Slow Un grabiel injection 4 02-18 IV Push, ity of mg 23:00: 22:01 ONCE, 1 [place] 00 :00 dose, Sat Medical 02/19/20 at Branch 1800, STAT insulin 2020-0 2020- No 10U 10 Units, Univ ers regular 02-18 Subcutaneo ity o f human 22:45: 21:54 , ONCE, [place] (HUMULIN R) 00 :00 1 dose, Medic al injection 02/19/20 Bran ch 10 Units at 1745, STAT NaCl 0.9% 2019-0 2020- No 1000mL at 999 Uni vers (NS) bolus 02-18 mL/hr, ity of infusion 21:45: 23:27 1,000 mL, Danie as 1,000 mL 00 :00 IV Medical Infusion, [place] ONCE, 1 dose, 02/19/20 at 1645, STAT ondansetron 2019-0 2020- No 4mg 4 mg, Slow Univers (ZOFRAN 02-18 IV Push, ity of (PF)) 21:45: 20:51 ONCE, 1 [place] injection 4 00 :00 dose, Sat Med ical mg 02/19/20 at Branch 1645, MANDEEP FENTanyl PF 2019-0 2020- No 25ug 25 mcg, Un grabiel (SUBLIMAZE 02-18 Slow IV ity o f (PF)) 21:45: 20:50 Push, [place] injection 00 :00 ONCE, 1 Medical 25 mcg dose, Sat [place] 02/19/20 at 1645, STAT clindamycin 2019-0 2020- No 900mg 900 mg, IV Univers in 5 % 02-18 Piggyback, ity of dextrose 21:45: 21:21 ONCE, 1 [place] (CLEOCIN) 00 :00 dose, Sat Medic al 900 mg/50 02/19/20 at Branc h mL IV 1645, 50 piggyback mL
Reas RTU 900 mg on for Anti-Infec tive: Documented Infection< br>Documen yelena Infection Site: Skin / Soft Tissue
Duration of Therapy: Other (see Comments)< br>Restric yelena use approved by: ADC PROVIDER acetaminoph 2019- No 1000mg 1,000 mg, Univers en 02-18 06-06 Oral, ity of (TYLENOL) 21:30: 20:30 ONCE, 1 [place] tablet [place] :[place] dose, Sat Medical 1,000 mg 02/19/20 at Branch 1630, MANDEEP traMADol 50 2019-0 Yes [id number] 50mg Take 1 Univers mg tablet 6-06 tablet by ity o f 00:00: mouth [place] 00 every 6 Medical (six) Branch hours as needed for Pain (scale 4-6). traMADol 50 2019-0 Yes [id number] 50mg Take 1 Univers mg tablet 6-06 tablet by ity o f 00:00: mouth [place] 00 every 6 Medical (six) Branch hours as needed for Pain (scale 4-6). traMADol 50 2019-0 Yes [id number] 50mg Take 1 Univers mg tablet 6-06 tablet by ity o f 00:00: mouth [place] 00 every 6 Medical (six) Branch hours as needed for Pain (scale 4-6). traMADol 50 2019-0 Yes [id number] 50mg Take 1 Univers mg tablet 6-06 tablet by ity o f 00:00: mouth [place] 00 every 6 Medical (six) Branch hours as needed for Pain (scale 4-6). traMADol 50 2019-0 Yes [id number] 50mg Take 1 Univers mg tablet 6-06 tablet by ity o f 00:00: mouth [place] 00 every 6 Medical (six) Branch hours as needed for Pain (scale 4-6). traMADol 50 2019-0 Yes [id number] 50mg Take 1 Univers mg tablet 6-06 tablet by ity o f 00:00: mouth [place] 00 every 6 Medical (six) Branch hours as needed for Pain (scale 4-6). clindamycin 2019- 2020- No [id number] 450mg Take 3 Univers 150 mg 02-18 06-17 capsules ity of capsule 00:00: 04:59 by mouth 3 [place]ie as 00 :00 (three) Medical times Branch daily for 10 days. glipiZIDE 2020-0 Yes [id number] 10mg Take 1 Un grabiel 10 mg 2-22 tablet by ity of tablet 00:00: mouth 2 [place] 00 (two) Medical times Branch daily before breakfast and dinner. HYDROcodone 2020-0 Yes [id number] 1{tbl} Take 1 Univers -acetaminop 2-22 tablet by ity of hen 5-325 00:00: mouth [place] mg tablet 00 every 6 Medical (six) Branch hours as needed for Pain (scale 7-10). glipiZIDE 2020-0 Yes [id number] 10mg Take 1 Un grabiel 10 mg 2-22 tablet by ity of tablet 00:00: mouth 2 [place] 00 (two) Medical times Branch daily before breakfast and dinner. HYDROcodone 2020-0 Yes [id number] 1{tbl} Take 1 Univers -acetaminop 2-22 tablet by ity of hen 5-325 00:00: mouth [place] mg tablet 00 every 6 Medical (six) Branch hours as needed for Pain (scale 7-10). glipiZIDE 2020-0 Yes [id number] 10mg Take 1 Un grabiel 10 mg 2-22 tablet by ity of tablet 00:00: mouth 2 [place] 00 (two) Medical times Branch daily before breakfast and dinner. HYDROcodone 2020-0 Yes [id number] 1{tbl} Take 1 Univers -acetaminop 2-22 tablet by ity of hen 5-325 00:00: mouth [place] mg tablet 00 every 6 Medical (six) Branch hours as needed for Pain (scale 7-10). glipiZIDE 2020-0 Yes [id number] 10mg Take 1 Un grabiel 10 mg 2-22 tablet by ity of tablet 00:00: mouth 2 [place] 00 (two) Medical times Branch daily before breakfast and dinner. HYDROcodone 2020-0 Yes [id number] 1{tbl} Take 1 Univers -acetaminop 2-22 tablet by ity of hen 5-325 00:00: mouth [place] mg tablet 00 every 6 Medical (six) Branch hours as needed for Pain (scale 7-10). glipiZIDE 2020-0 Yes [id number] 10mg Take 1 Un grabiel 10 mg 2-22 tablet by ity of tablet 00:00: mouth 2 [place] 00 (two) Medical times Branch daily before breakfast and dinner. HYDROcodone 2020-0 Yes [id number] 1{tbl} Take 1 Univers -acetaminop 2-22 tablet by ity of hen 5-325 00:00: mouth [place] mg tablet 00 every 6 Medical (six) Branch hours as needed for Pain (scale 7-10). glipiZIDE 2020-0 Yes [id number] 10mg Take 1 Un grabiel 10 mg 2-22 tablet by ity of tablet 00:00: mouth 2 [place] 00 (two) Medical times Branch daily before breakfast and dinner. HYDROcodone 2020-0 Yes [id number] 1{tbl} Take 1 Univers -acetaminop 2-22 tablet by ity of hen 5-325 00:00: mouth [place] mg tablet 00 every 6 Medical (six) Branch hours as needed for Pain (scale 7-10). glipiZIDE 2020-0 Yes [id number] 10mg Take 1 Un grabiel 10 mg 2-22 tablet by ity of tablet 00:00: mouth 2 [place] 00 (two) Medical times Branch daily before breakfast and dinner. HYDROcodone 2020-0 Yes [id number] 1{tbl} Take 1 Univers -acetaminop 2-22 tablet by ity of hen 5-325 00:00: mouth [place] mg tablet 00 every 6 Medical (six) Branch hours as needed for Pain (scale 7-10). glipiZIDE 2020-0 Yes [id number] 10mg Take 1 Un grabiel 10 mg 2-22 tablet by ity of tablet 00:00: mouth 2 [place] 00 (two) Medical times Branch daily before breakfast and dinner. HYDROcodone 2020-0 Yes [id number] 1{tbl} Take 1 Univers -acetaminop 2-22 tablet by ity of hen 5-325 00:00: mouth [place] mg tablet 00 every 6 Medical (six) Branch hours as needed for Pain (scale 7-10). glipiZIDE 2020-0 Yes [id number] 10mg Take 1 Un grabiel 10 mg 2-22 tablet by ity of tablet 00:00: mouth 2 [place] 00 (two) Medical times Branch daily before breakfast and dinner. HYDROcodone 2020-0 Yes [id number] 1{tbl} Take 1 Univers -acetaminop 2-22 tablet by ity of hen 5-325 00:00: mouth [place] mg tablet 00 every 6 Medical (six) Branch hours as needed for Pain (scale 7-10). ciprofloxac 2020-0 2020- No [id number] 500mg Take 1 Univers in HCl 500 11-06 tablet by ity of mg tablet 00:00: 05:59 mouth [place] 00 :00 every 12 Medical (twelve) Branch hours for 7 days. metroNIDAZO 2020-0 2020- No [id number] 500mg Take 1 Univers LE 500 mg 11-06 tablet by ity of tablet 00:00: 05:59 mouth 2 [place] 00 :00 (two) Medical times Branch daily for 7 days. HYDROmorpho 2020-0 Yes 1mg 1 mg, Slow Univers ne -21 IV Push, ity of (DILAUDID) 15:33: Q6HPRN, [place] injection 1 28 Starting Medi kyrie mg Fri Branch 11/05/19 at 0933, Until Discontinu ed, Routine, Pain (scale 7-10)
U se approved by (Faculty): ADC PROVIDER HYDROmorphO 2020-0 2020- No 1mg 1 mg, Slow Univers ne 11-04 IV Push, ity of (DILAUDID) 17:03: 15:33 Q3HPRN, Danie as injection 1 17 :39 Starting Medi kyrie mg [place] Branch 11/04/19 at 1103, Until 11/05/19 at 0933, MANDEEP, Pain (scale 7-10)
U se approved by (Faculty): ADC PROVIDER sennosides 2020-0 Yes 8.6mg 8.6 mg, Uni vers (SENOKOT) -20 Oral, ity of tablet 8.6 15:00: DAILY, [place] mg 00 First dose Medical on Angelina Branch 11/04/19 at 0900, Until Discontinu ed, Routine ciprofloxac 2019-0 2020- No 400mg 400 mg, IV Univers in [...] o f U-100 01:30: 14:24 us, DAILY, [place] (LEVEMIR 00 :53 First dose Medic al U-100 on Fri INSULIN) 11/03/19 at injection 1930, 30 Units Until Discontinu ed, Routine glipiZIDE Yes 10mg 10 mg, Univer s (GLUCOTROL) 2-20 Oral, ity of tablet 10 00:45: BIDAC, [...] days HYDROcodone 2019-0 Yes 1{tbl} 1 tablet, Univers -acetaminop 11-03 Oral, ity of hen (NORCO 21:44: Q4HPRN, [place] 5) 5-325 mg 00 Starting Medi kyrie tablet 1 Fri Branch tablet 11/03/19 at 1544, Until Discontinu ed, Routine, Pain (scale 4-6) morpHINE 2019-0 2020- No 4mg 4 mg, Slow Un grabiel injection 4 11-03 IV Push, ity of mg 21:43: 17:06 Q2HPRN, [place] 39 :17 Starting Medical Wed Branch 11/03/19 at 1543, Until Angelina 11/04/19 at 1106, Routine, Pain (scale 7-10) ondansetron 2019- Yes 4mg 4 mg, Slow Univers (ZOFRAN 11-03 IV Push, ity of (PF)) 21:40: Q6HPRN, [place] injection 4 10 Starting Medi kyrie mg Wed Branch 11/03/19 at 1540, Until Discontinu ed, Routine, Nausea and Vomiting (N/V) metroNIDAZO 2019-2019- No 500mg 500 mg, IV Univers LE [...] of Therapy: Other (see Comments) D5W 0.45% 2019-0 2020- No 1000mL at 125 Uni vers NaCl 11-03 mL/hr, ity of (1/2NS) IV 19:15: 01:21 1,000 mL, [place] infusion 00 :07 IV Medical 1,000 mL Infusion, Branch CONTINUOUS , Starting 11/03/19 at 1315, Until 2/19/20 at 1921, MANDEEP FENTanyl PF 2020- No [...] at Branch 1100, MANDEEP cyclobenzap 2018-09- No [id number] 5mg Take 1 Univers rine 5 mg 011-06 9100 tablet by ity of tablet 00:00: 00:00 mouth 3 [place] 00 :00 (three) Medical times Branch daily. traMADol 2018-09 2020- No [id number] 50mg Take 1 Univers (ULTRAM) 50 011-06 9100 tablet by it y of mg tablet 00:00: 00:00 mouth [place] 00 :00 every 8 Medical (eight) Branch hours as needed for Pain (scale 4-6). benzonatate 2019- No 100mg Take 1 Un grabiel 100 [...] 2020-04-24 13:23:00 129 mm[Hg] Univer sity of [facility] Diastolic blood 2020-04-24 13:23:00 81 mm[Hg] Unive rsity of [facility] Heart rate 2020-04-24 13:23:00 82 /min [facility] Body weight 2020-04-24 13:23:00 138.075 kg [facility] BMI 2020-04-24 13:23:00 39.08 kg/m2 [facility] Systolic blood 2020-04-24 13:23:00 129 mm[Hg] Univer sity of [facility] Diastolic blood 2020-04-24 13:23:00 81 mm[Hg] Unive rsity of [facility] Heart rate 2020-04-24 13:23:00 82 /min [facility] Body weight 2020-04-24 13:23:00 138.075 kg [facility] BMI 2020-04-24 13:23:00 39.08 kg/m2 [facility] Systolic blood 2020-04-07 03:51:00 118 mm[Hg] Univer sity of [facility] Diastolic blood 2020-04-07 03:51:00 68 mm[Hg] Unive rsity of pressure [place] [facility] Heart rate 2020-04-07 03:51:00 92 /min Universi ty of [place] [facility] Respiratory rate 2020-04-07 03:51:00 16 /min Univ ersity of [place] [facility] Oxygen saturation in 2020-04-07 03:51:00 100 /min University of Arterial blood by [facility] Pulse oximetry Branch Body temperature 2020-04-07 03:40:00 36.44 Leonor Univ ersity of [place] [facility] Body weight 2020-04-07 00:07:00 129.275 kg Universi ty of [place] [facility] BMI 2020-04-07 00:07:00 36.59 kg/m2 Universi ty of [place] [facility] Heart rate 2020-02-19 23:10:00 105 /min Universi ty of [place] [facility] Respiratory rate 2020-02-19 23:10:00 29 /min Univ ersity of [place] [facility] Oxygen saturation in 2020-02-19 23:10:00 94 /min University of Arterial blood by [facility] Pulse oximetry Branch Systolic blood 2020-02-19 23:00:00 127 mm[Hg] Univer sity of pressure [place] [facility] Diastolic blood 2020-02-19 23:00:00 78 mm[Hg] Unive rsity of pressure [place] [facility] Body temperature 2020-02-19 22:04:10 37.33 Leonor Univ ersity of [place] [facility] Body height 2020-02-19 19:56:00 188 cm Universi ty of [place] [facility] Body weight 2020-02-19 19:56:00 129.275 kg Universi ty of [place] [facility] BMI 2020-02-19 19:56:00 36.59 kg/m2 Universi ty of [place] [facility] Systolic blood 2019-11-06 17:14:00 138 mm[Hg] Univer sity of pressure [place] [facility] Diastolic blood 2019-11-06 17:14:00 88 mm[Hg] Unive rsity of pressure [place] [facility] Heart rate 2019-11-06 17:14:00 102 /min Universi ty of [place] [facility] Respiratory rate 2019-11-06 17:14:00 18 /min Univ ersity of [place] [facility] Oxygen saturation in 2019-11-06 17:14:00 96 /min University of Arterial blood by [facility] Pulse oximetry Branch Body temperature 2019-11-06 14:00:00 36.72 Leonor [facility] Body height 2019-11-03 23:00:00 188 cm [facility] Body weight 2019-11-03 15:22:00 129.275 kg [facility] BMI 2019-11-03 15:22:00 36.58 kg/m2 [facility] Procedures Procedure Date / Time Performing Clinician Source Performed EGD (ENDO) 2020-04-07 02:31:21 Lisa Armendariz [facility] COMP. METABOLIC PANEL 2020-04-07 01:52:00 Yazmin Apple [facility] ([id number]) Medical Branch CBC WITH DIFF 2020-04-07 01:52:00 Yazmin Apple [facility] XR NECK SOFT TISSUE 2020-04-07 00:57:29 Yazmin Apple [facility] COVID-19 (ID NOW RAPID 2020-04-07 00:40:00 Yazmin Apple [facility] TESTING) Medical Branch NOTICE OF PRIVACY 2020-04-06 23:57:19 Doctor Unassigned, No [facility] PRACTICES Name [facility] Branch CONSENT/REFUSAL FOR 2020-04-06 23:57:05 [facility] Medical Branch REFERRAL- 2020-03-29 05:01:00 Doctor Unassigned, No [facility] REQUEST/RESPONSE Name Medical Branch POCT GLUCOSE 2020-02-19 23:05:00 Meggan Hernandez [facility] (AUTOMATED) [facility] Branch POCT GLUCOSE 2020-02-19 21:52:00 Meggan Hernandez [facility] (AUTOMATED) [facility] COMP. METABOLIC PANEL 2020-02-19 20:47:00 Meggan Hernandez [facility] ([id number]) Medical Branch CBC WITH DIFFERENTIAL 2020-02-19 20:47:00 Meggan Hernandez [facility] COVID-19 (ID NOW RAPID 2020-02-19 20:47:00 Meggan Hernandez [facility] TESTING) Medical Branch NOTICE OF PRIVACY 2020-02-19 19:53:34 Doctor Unassigned, No [facility] PRACTICES Name Medical Branch CONSENT/REFUSAL FOR 2020-02-19 19:53:23 [facility] Name Medical Branch POCT GLUCOSE 2019-11-06 13:36:00 Luis Arshad [facility] (AUTOMATED) Medical Branch POCT GLUCOSE 2019-11-06 01:48:00 Luis Arshad [facility] (AUTOMATED) Medical Branch POCT GLUCOSE 2019-11-05 22:16:00 [facility] POCT GLUCOSE 2019-11-05 17:26:[address] Pavithra [facility] (AUTOMATED) Medical Branch POCT GLUCOSE 2019-11-05 13:21:[address] Pavithra [facility] (AUTOMATED) Medical Branch BASIC METABOLIC PANEL 2019-11-05 10:28:00 [facility] (NA, K, CL, CO2, Medical Branch GLUCOSE, BUN, CREATININE, CA) CBC WITH DIFFERENTIAL 2019-11-05 10:28:00 [facility] Medical Branch POCT GLUCOSE 2019-11-05 10:12:00 [facility] Branch POCT GLUCOSE 2019-11-05 06:12:00 Pavithra [facility] (AUTOMATED) Medical Branch POCT GLUCOSE 2019-11-05 01:41:[address] [facility] (AUTOMATED) Medical Branch POCT GLUCOSE 2019-11-04 22:26:00 Luis Arshad [facility] (AUTOMATED) Medical Branch POCT GLUCOSE 2019-11-04 17:20:[address] Pavith[address] [facility] (AUTOMATED) Medical Branch POCT GLUCOSE 2019-11-04 13:21:[address] Pavith[address] [facility] (AUTOMATED) Medical Branch POCT GLUCOSE 2019-11-04 11:57:[address] [facility] (AUTOMATED) Medical Branch POCT GLUCOSE 2019-11-04 05:30:[address] Pavith[address] [facility] (AUTOMATED) Medical Branch POCT GLUCOSE 2019-11-04 02:17:[address] Pavith[address] [facility] (AUTOMATED) Medical Branch POCT GLUCOSE 2019-11-03 23:23:[address] [facility] (AUTOMATED) [facility] POCT GLUCOSE 2019-11-03 21:41:[address] Pav[address] [facility] (AUTOMATED) [facility] SURGICAL PATHOLOGY EXAM 2019-11-03 20:26:00 Yonatan Lund [facility] LAPAROSCOPIC 2019-11-03 19:24:00 Yonatan Lund [facility] APPENDECTOMY [facility] CT ABDOMEN PELVIS W 2019-11-03 17:41:22 Ervin Rhoades [facility] CONTRAST [facility] Branch LIPASE 2019-11-03 15:35:00 Jf [facility] COMP. METABOLIC PANEL 2019-11-03 15:35:00 Jf Ervin [facility] ([id number]) [facility] CBC WITH DIFFERENTIAL 2019-11-03 15:35:00 Jf Ervin [facility] GLYCOSYLATED HEMOGLOBIN 2019-11-03 15:35:00 Meggan Pichardo [facility] (A1C) [facility] URINALYSIS 2019-11-03 15:35:00 [facility] Start End Encounter Admission Attending Care Care Encounter Source Date/Time Date/Time Type Type Clinicians Facility Department ID 2020-08-15 2020-08-15 Outpatient R [facility] [id number] Univers 10:00:00 10:00:00 [facility] 2020-08-15 2020-08-15 Outpatient R DINOTHE [facility] [id number] Univers 10:00:00 10:00:00 SILVINA [facility] 2020-08-14 2020-08-14 Outpatient R [facility] [id number] Univers 10:40:00 10:40:00 [facility] 2020-04-24 2020-04-24 [facility] [id number] 08:15:37 08:49:56 Visit Norberto Ward [id number] Lianna [id number] Poli [id number] nal 092 Building 2020-04-24 2020-04-24 Office Dolores [facility] [id number] Univers 08:15:37 08:49:56 Visit Norberto Taye Ward [id number] ity of [id number] Profess[place] [id number] Ok dical nal 092 [facility] 2020-04-24 2020-04-24 Outpatient R NORBERTO BERNAL [facility] [id number] Univers 08:00:00 08:00:00 NORBERTO BERNAL ity of [facility] 2020-04-06 2020-04-06 Emergency Yazmin Apple [facility] [id number] Univers 19:12:13 22:55:00 Melanie Ward [id number] i ty of [place] [id number] [id number] [facility] 071 [place] 2020-04-06 2020-04-06 Emergency X ZECHARIAH Yazmin [facility] ERT [id number] Univers 19:12:13 19:12:13 ity of [facility] 2020-04-06 2020-04-06 Orders Doctor SNEED [id number] Univers 00:00:00 00:00:00 Only Unassigned, MIRI [id number] ity of [place] [facility] [id number] [place]ie as [id number] [address] 2020-03-29 2020-03-29 Orders Doctor SNEED [id number] Univers 00:00:00 00:00:00 Only Unassigned, MIRI [id number] ity of [place] [facility] [id number] [place]ie as [id number] [facility] 009 [place] 2020-02-19 2020-02-19 Emergency [facility] [id number] Univers 15:07:18 19:22:00 Meggan [place] [id number] i ty [id number] [id number] [facility] 084 Branch 2020-02-19 2020-02-19 Emergency X [facility] ERT [id number] Univers 14:53:00 14:53:00 ity of [facility] 2020-02-19 2020-02-19 Orders Doctor NAREN [id number] Univers 00:00:00 00:00:00 Only Unassigned, MIRI [id number] ity of [place] [facility] [id number] [place] [phone] [facility] 009 Branch 2019-11-08 2019-11-08 Transition Faraz Nicolas [id number] Univers 00:00:00 00:00:00 of Care Hortensia De Jesus [id number] [id number] [id number] [facility] 403 Branch 2019-11-03 2019-11-06 Hospital Ervin Rhoades [facility] [id number] Univers 09:25:15 12:00:00 Encounter Luis Arshad [id number] ity of [place] [id number] [id number] [facility] 080 Branch 2019-11-03 2019-11-06 Inpatient X PAVITHRA [facility] TIMOETO [id number] Univers 09:25:15 12:00:00 LUIS osman [facility] Results Test Description Test Time Test Comments Results Result Comments Source COMP. METABOLIC PANEL (20277) 2020-04-07 03:03:00 Test Item Value Reference Range Interpretation Comme nts NA (test code = 5581586167) 139 mmol/L 135-145 K (test code = 4264129820) 4.4 mmol/L 3.5-5 CL (test code = 4733362455) 101 mmol/L 98-108 CO2 TOTAL (test code = 3751345546) 28 mmol/L 23-31 AGAP (test code = 2577353007) 2-16 BUN (test code = 6567091142) 11 mg/dL 7-23 GLUCOSE (test code = 6770560924) 225 mg/dL 70-110 H CREATININE (test code = 0.98 mg/dL 0.6-1.25 3663598342) TOTAL BILI (test code = 0.5 mg/dL 0.1-1.8 3968484430) CALCIUM (test code = 9140204390) 9.6 mg/dL 8.6-10.6 T PROTEIN (test code = 8867073351) 8.2 g/dL 6.3-8.2 ALBUMIN (test code = 9200636837) 4.7 g/dL 3.5-5 ALK PHOS (test code = 9318197297) 75 U/L 34-122 ALTv (test code = 1742-6) 74 U/L 5-50 H AST(SGOT) (test code = 0929687564) 39 U/L 13-40 eGFR Calculation (Non- mL/min/1.73m2 Cambodian) (test code = 0163223566) eGFR Calculation ( mL/min/1.73m2 Cambodian) (test code = 7857557246) KATE (test code = KATE) Association of [...] tests). Lab Interpretation (test code = Abnormal 07810-5) [facility] WITH [id number] 02:12:00 Test Item Value Reference Range Interpretation [...] (test code = 36.4 fL 38.5-51.6 L 57485-4) RDW-CV (test code = 12.5 % 12.1-15.4 788-0) PLT (test code = See_Comment [Automated 777-3) message] The sy stem which generated this result transmitted reference range : 150 - 328 10*3/ ?L. The reference r jevon was not used to interpret this result as normal/abnormal . MPV (test code = 11.5 fL 9.8-13 90596-0) NRBC/100 WBC (test See_Comment [Automat ed code = 7765086403) message] The system which generated this result transmitted reference range : 0.0 - 10.0 /100 WBCs. The refer ence range was not u sed to interpret th is result as normal/abnormal . NRBC x10^3 (test code <0.01 See_Comment [Auto mated = 4811486954) message] The s ystem which generated this result transmitted reference range : 10*3/?L. The reference range was not used to interpret this result as normal/abnormal . GRAN MAT (NEUT) % 68.0 % (test code = 770-8) IMM GRAN % (test code 0.40 % = 2895965144) LYMPH % (test code = 23.8 % 736-9) MONO % (test code = 4.7 % 5905-5) EOS % (test code = 2.7 % 713-8) BASO % (test code = 0.4 % 706-2) GRAN MAT x10^3(ANC) 5.24 10*3/uL 1.99-6.95 (test code = 7766188435) IMM GRAN x10^3 (test 0.03 10*3/uL 0-0.06 code = 7900490884) LYMPH x10^3 (test code 1.83 10*3/uL 1.09-3.23 = 731-0) MONO x10^3 (test code 0.36 10*3/uL 0.36-1.02 = 742-7) EOS x10^3 (test code = 0.21 10*3/uL 0.06-0.53 711-2) BASO x10^3 (test code 0.03 10*3/uL 0.01-0.09 = 704-7) Lab Interpretation Abnormal (test code = 43032-5) [facility] 01:40:00 Test Item Value Reference Range Interpretation Comments SARS-CoV-2 Rapid ID NOW Not Detected Not Detected (test code = 39375-2) KATE (test code = KATE) ID NOW COVID-19 Assay is an isothermal nucleic acid amplification test intended for the qualitative detection of nucleic acid from SARS-CoV-2 viral RNA in nasopharyngeal (CONTACT LENS MOLDER) specimens. It is used under Emergency Use [...] indicated. Lab Interpretation Normal (test code = 98763-4) [facility] [id number] 01:06:58 FINDINGS/IMPRESSION:: Frontal and lateral radiographs of the neck soft tissues were performed. No radiopaque foreign body identified. The oropharyngeal and nasopharyngealairways are patent. The prevertebral soft tissues are unremarkable. Mild spondylotic changes at C5-C6. Cervical spine is otherwiseunr emarkable. EXAM: XR NECK SOFT TISSUE HISTORY: esophageal fb COMPARISON: None. [facility], Radiant Results Inft User - 04/06/2020 8:08 PM CDTEXAM: XR NECK SOFT TISSUEHISTORY: esophageal fb COMPARISON: None.IMPRESSIONFINDINGS/IMPRESSION:: Frontal and lateral radiographs of the neck soft tissues were performed.No radiopaque foreign body identified. The oropharyngeal and nasopharyngealairways are patent. The prevertebral soft tissues are unremarkable.Mild spondylotic changes at C5-C6. Cervical spine is otherwiseunremarkable.[facility] GLUCOSE (AUTOMATED)2020-02-19 23:08:00 Test Item Value Reference Range Interpretation Comments POCT GLU (test code = 5063334181) 243 mg/dL 70-110 H Lab Interpretation (test code = Abnormal 71939-7) [facility] GLUCOSE (AUTOMATED)2020-02-19 21:58:00 Test Item Value Reference Range Interpretation Comments POCT GLU (test code = 1549308052) 313 mg/dL 70-110 H Lab Interpretation (test code = Abnormal 65027-8) [facility]ID [facility]2020-02-19 21:31:00 Test Item Value Reference Range Interpretation Comments SARS-CoV-2 Rapid ID NOW Not Detected Not Detected (test code = 37362-8) KATE (test code = KATE) ID NOW COVID-19 Assay is an isothermal nucleic acid amplification test intended for the qualitative detection of nucleic acid from SARS-CoV-2 viral RNA in nasopharyngeal (CONTACT LENS MOLDER) specimens. It is used under Emergency Use [...] indicated. Lab Interpretation Normal (test code = 61167-5) [facility]. METABOLIC PANEL (23056)2020-02-19 21:29:00 Test Item Value Reference Range Interpretation Comments NA (test code = 134 mmol/L 135-145 L 2318503408) K (test code = 4.1 mmol/L 3.5-5 4596543390) CL (test code = 99 mmol/L 98-108 3803463239) CO2 TOTAL (test code = 27 mmol/L 23-31 9377548369) AGAP (test code = 2-16 9575918926) BUN (test code = 10 mg/dL 7-23 9532842386) GLUCOSE (test code = 372 mg/dL 70-110 H 0678307601) CREATININE (test code = 0.96 mg/dL 0.6-1.25 3277983176) TOTAL BILI (test code = 0.4 mg/dL 0.1-1.5 0721877473) CALCIUM (test code = 9.2 mg/dL 8.6-10.6 3162677511) T PROTEIN (test code = 7.5 g/dL 6.3-8.2 7827072479) ALBUMIN (test code = 4.5 g/dL 3.5-5 7830838192) ALK PHOS (test code = 86 U/L 34-122 2310650260) ALTv (test code = 48 U/L 5-50 1742-6) AST(SGOT) (test code = 27 U/L 13-40 9564125173) eGFR Calculation mL/min/1.73m2 (Non-) (test code = 3663661443) eGFR Calculation mL/min/1.73m2 () (test code = 9192938502) KATE (test code = KATE) Association of [...] tests). Lab Interpretation Abnormal (test code = 18001-6) [facility] WITH [id number] 21:06:00 Test Item Value Reference Range Interpretation Comments WBC (test code = See_Comment [Automated 3006-2) message] The sy stem which generated this result transmitted reference range : 4.20 - 10.70 10*3/?L. The reference range was not used to interpret this result as normal/abnormal . RBC (test code = See_Comment H [Automated 099-8) message] The sy stem which generated this [...] (test code = 36.3 fL 38.5-51.6 L 00283-5) RDW-CV (test code = 12.9 % 12.1-15.4 788-0) PLT (test code = See_Comment [Automated 777-3) message] The sy stem which generated this result transmitted reference range : 150 - 328 10*3/ ?L. The reference r jevon was not used to interpret this result as normal/abnormal . MPV (test code = 11.3 fL 9.8-13 89284-2) NRBC/100 WBC (test See_Comment [Automat ed code = 4682400585) message] The system which generated this result transmitted reference range : 0.0 - 10.0 /100 WBCs. The refer ence range was not u sed to interpret th is result as normal/abnormal . NRBC x10^3 (test code <0.01 See_Comment [Auto mated = 0396670953) message] The s ystem which generated this result transmitted reference range : 10*3/?L. The reference range was not used to interpret this result as normal/abnormal . GRAN MAT (NEUT) % 79.8 % (test code = 770-8) IMM GRAN % (test code 0.50 % = 4712340756) LYMPH % (test code = 13.4 % 736-9) MONO % (test code = 4.2 % 5905-5) EOS % (test code = 1.8 % 713-8) BASO % (test code = 0.3 % 706-2) GRAN MAT x10^3(ANC) 8.49 10*3/uL 1.99-6.95 H (test code = 4988115959) IMM GRAN x10^3 (test 0.05 10*3/uL 0-0.06 code = 1323696314) LYMPH x10^3 (test code 1.42 10*3/uL 1.09-3.23 = 731-0) MONO x10^3 (test code 0.45 10*3/uL 0.36-1.02 = 742-7) EOS x10^3 (test code = 0.19 10*3/uL 0.06-0.53 711-2) BASO x10^3 (test code 0.03 10*3/uL 0.01-0.09 = 704-7) Lab Interpretation Abnormal (test code = 01565-2) [facility] GLUCOSE (AUTOMATED)2019-11-06 13:38:00 Test Item Value Reference Range Interpretation Comments POCT GLU (test code = 6814677341) 116 mg/dL 70-110 H Lab Interpretation (test code = Abnormal 77963-2) [facility] GLUCOSE (AUTOMATED)2019-11-06 12:29:00 Test Item Value Reference Range Interpretation Comments POCT GLU (test code = 5042997245) 322 mg/dL 70-110 H Lab Interpretation (test code = Abnormal 22428-5) [facility] GLUCOSE (AUTOMATED)2019-11-06 12:29:00 Test Item Value Reference Range Interpretation Comments POCT GLU (test code = 9699149477) 230 mg/dL 70-110 H Lab Interpretation (test code = Abnormal 75532-2) [facility] GLUCOSE (AUTOMATED)2019-11-06 02:00:00 Test Item Value Reference Range Interpretation Comments POCT GLU (test code = 155 mg/dL 70-110 H Notifi ed Provider 0208339763) Lab Interpretation (test Abnormal code = 63494-5) [facility] [id number] 00:02:00 Test Item Value Reference Range Interpretation Comments Case Report (test code Surgical Pathology ? ? = [id number]) ?Case: [id number] ? Authorizing Provider: ?Yonatan Lund MD ? ? ? Collected: ? 11/03/2019 1426 ?Ordering Location: ? ? [facility] ? ? ?Received: ?11/03/2019 1555 ? [facility] ?Pathologist: ? Klaus Tinoco MD ? Specimen: ? ?APPENDIX, appendix ? Final Diagnosis (test q2qjrXMlAPFik8rlMGTnhJ code = 8299187781) FuZzEwMzNcZnRuYmpcdWMx ZLxsjsAiEKheg9GwU1HhKq AwMFxhbnNpXGRlZmxhbmcx MFZhMYQ9gfEdHCSrUBdrLT ZkRSpyRi6wwFGzjAvzHgEg WWAai2ohtjAHlwyajVo5y0 biKZSoHqX6eHPzSSvgO1hb rsAioZBvQUZlONu8mJ40AZ MajJ1tnWXbTDbvszYsMTnd plExmcFjAxw8KVGkP1czUF TsAUPbU7UcJO9cKCRfJlj1 OVZ4NNG6aRycj3W1rNGcvH NbiVyeGhAyVpCmTSZJm1Rc CPq1gTikP6NoQBZzFeM9uQ QgUGFyYWdyYXBoIEZvbnQ7 uG67BJkjihY0jACor2Ilo9 3yc646xC6skCHrZSI5NDBb OKSlzVXzFGHrMWK5DJAczZ EsJ5tjHLilJR2yowgiSPG5 MFxtYXJndDcyMFxtYXJnYj QelEZzHAVbkTdsAMyiz777 TZK7KwCzQJ0cW6Kce1I2qL 9maXRcZGVmdGFiNzIwXGZv bl3egPZaFIogp4WyPLW4er I6hEEpjABaRUCyYI39Xcqb t4XkTlunDDC9YTYrwuGow8 Dcx1vkIwLssxNmL6bwP7Xu ZHJoZWFkXHBnYnJkcmZvb3 Amp3OtzTLilUo8r3urEILa UAZabBwru1ztHKI5TRAgM4 J1eNOiu4upWIydHUNyhOY7 asQlSBXdbPOrR2QjmJ4xCC yjSV1oklg2m6yjZiEsQN2e zquff7svKBarILHzNUB0Mi PvSRYgp1RlspxpZlBnq4Wz aKWmRKvlB13qr947SPJuxb AnF4vpxBUxtqhnxAItqjeq MFxmczIwXHFsXHBsYWluXG VvTXFuQnFfaOtryI3lQgSw ZnMyMFxwYXJccGFyZFxwbG FpblxmMFxmczIwXHBsYWlu WGUePSJpCoCeNA3xBGCNBM 1ALFmgPXUEHCLAZSHGVZ9V WTpccGFyXHFsXHBsYWluXG NkGTOiSjMjkFpxsU7rOtRj GoQyRWOlNXSxFP7gDOIFEC NpSYVEPU0WVCOUZPyEUNuT XDdqOAQQRR2BAIIUKuLBV1 lUSVNccGFyXHBhciBNYXR0 bVC4XXGckWVwWWCGOImnCA WkqFfdtD9nDrRaNzGkNvkd NU1hTSTqU5qcbKDxOZYnBY CsW2lzDmIueO2xbDrkFUgn ZjFcZnMyMiBIYXJzaHdhcm EvPZ5qDMbnl6DjPGRLYFSi Cg9kGE0kLOWfIAA2JqXlCH BNXHBsYWluXGYxXGZzMjBc pBMeqUcjvcBvULuct6IgN9 YyMjAwMFxhbnNpXGRlZmxh qezlXXEmDSF0kyVdFOVuKP kgUDBnMNuwDp9liAUilReh AfXlICJtj5kksaVOKCyjRx CmN565XLDmNBgzs3unx7Gy PJZfkLTbw0F5YJBVxisqvI m6o0koQmRnHzU7bDOgUYot N2lsfqRqkCBmT2MsrNSprO k4yMjeT66mu4G9ZuuaS9nz LOUzDOVrN4JdWD4iQITdXt b1SNQ5FUE1EGOgEDKdQ3Ep AZ6gRNOgwYCkDIt4d0iwcJ swGSJzNHO4d3eaPLvslrC4 BG2hfg7rpVk5i2fhwkHgDA LrLAAgrWMWFVNmW8YcfEak Bb6fiYm0hCspDhpsVDO2Lb i7DE7rav44tgi2fZbmCSYx mywrCkA1VFfhAKAfnikyBU b6CUtoGKMoqQI4DJPziMUq X9AyGPKdDX4fjtu1SAH4TR hhCMSrIrO6OLLlcEUgLNTv fJvvBXjkc740JNW6HoXsMI 2yJ5Sbo7M3fJ1sjZXyXPLs nCJgUvMzPGFdae9zjQLzKE mts9AyTLT6xsC7yRYibWMw PYExNK64Umudi4SeHiocZU F4QMQorzGuq8Nrq1pjRdIj yrOcH1siZ8DzRHWoAFGkCZ IzJlTqqsIgg5Nyl3XisNIu wGv5e2plQUMkQKKnvXhjf2 zoCXA0CYFcN4Z2kWCvj1nf XWdmNNThfNW3qcK0ULVduV OiL2JevZ8cJRWnYW1kagl5 t5wvYUK6KSjpWYUrFoJ7zg Q6KNXzlOMqRSNvfRzoGUhc i741GSV4RrHbNJWsq5CeY1 VukPzcC66jiBabO01oLLVv mMkxhK8muRnrpZ3uUfYoXg MyNFxxbFxwbGFpblxmMVxm czIwXGxhbmcxMDMzXGhpY2 oaGnQqIPDnuFqeCCkdc8Uj XGYxXGNmMlxmczIwXHBhci VKGIdsdmHgcSTkc65tGLad eSByZXZpZXdlZCBhbGwgc3 PfW9ghJO6lQ2ZiiCKomqZi fqZmXAuxLQMih2f9oRKowW zlw3CxgLEzWB53zhAvQMLd TET8KLSmd2uvNN13nocaSk AlxI81jvHdybVlFLBbk2af F3fqmDQfe4Eqd5ZiggGpJR qqf8QfGN8ewHLktzajsIG5 ZIRozSMuqtJpooH7kLmsLX UgfR6bsY5dhQxziG1nYlLs MlBpRNxpYH8jWROdW6tpiI DwQREhKJZqD0mgWdPrlU9v mGpbDahzohO5GZWsed04 Clinical Information Acute abdomen (test code = 9998314099) Gross Description (test p1hinLVjWYRlkWGrRaBbEP code = 3204050586) BsVRZzi8voOIDguFNjFeHn MzNcZnRuYmpcdWMxXGRlZm Hix2gbx337tZPac0ryMWYk EqC9oCQlMAYptBXzQ471ML MrZVhef2amy6OoFGAogLEt w4G1MYWIsngeiBi5jUwoA5 5nb6F3XyinB7csTCQqZVok TNXcQYayfLGeOAY4QPUoBR Z3NLxaciQfgoC1TMexgULp HlY5EDw3q9rimEkfLSTkYT G3g4vgPIxcelLeDB0lyk9c uCs7n4rkcrScNTZeWGMneI MOUQKyT6HkdPumKm9geTi1 aPknNqiqLVP7Qqj3PW4seb 15qdk8nLjoLGSxktanOzC6 IBywQLSdpbepGQs6RDysVT OvpKYnLRYifRZbP4RyYLlx ZW6yepi3PaGdVM0vdlreSZ frGDFgBYJ8OfJwGMMnj0Nm shitCcPdtv4xoe81AOW4h7 TfdYzmCFT9WNY2XdFnHr8x wWCsRLHaUE1cWaGoyJBsMB Ejnx48hFzdMCgvrkEzdL7n QzWuHVEyzNUhVMGqZZ5izT IwKYVdzK9vpkumVXMgHqDf xnutOPTslEnunwYxMa2nsS pvIHL1AYggK0jknG2lBjN0 OIlnO0vcmB9mXAi9MHwhxG O0KZHvsY7cPP2hpajpa5tz EGL2EWmxJLQdapH8ejIcHT HidJWaN6RxjD40QsSdzPUz S8OglX4eSZeiHQIdnlq4Bc RqXi0ihOTedMN2IBceUowg YWdlXHBnbmNvbnRccGduZG VjXHBsYWluXHBsYWluXGYw DUBcGwIzc8ZkVNMkl6diMi Zbw2emoCk4GMqdzPoguQAu blxmMFxmczIwXHBsYWluXG YaJABzNwChX4YgB9mmON3j QSBpcyByZWNlaXZlZCBpbi Gmk4ApMUmexyKeTHWddFrl MBW2cRSjGSJrFBBjZWSlME 50XHBsYWluXGYxXGZzMjBc pUolGPwfLBj9NxxqyXCaxq xmMVxmczIwIHMgbmFtZSwg VUggbnVtYmVyICJhcHBlbm RpeFxwbGFpblxmMVxmczIw QWQ6VyFmPFruKUFdyBimlV 0mGvVdUfUhOHHcWR7gOXSq seRsc1TyIT3jVOTmnRqesx 86EQ5rwbBsnDefi7IyOTRx tPIfFFg7CNk7KyzkD89ryC 3gjWSbQ2AuWBucUI25ZKHa OCBjbSBpbiBkaWFtZXRlci uqp7i6iCWikLDrK9cgGZX5 FCfar5yblH5ycOprdTXcHU Lud9B4pGWrGMMvXSTjGIJu XA7veGqfMUHnULH9MDGfPL C3UCAsXCUnaHaeJSRAoFVm TTTjLF6bySbjs0Djf1CvBQ kkb1DcXGMizsG9uUYzNQM9 xZUpeEVoSGVezaSqbDS5eO VudCBleHVkYXRlLiBUaGUg FCIxJI6fuPjcbJWjy9KdmK IdqJvme2RpwFmkoiQzLUCu IHJldmVhbCBhIHBhdGVudC LggJ2yczrzdvItC0xzQxFs zo8fOEOmtzHvpI27RLRzLB QiJpVedAinG65agAJkakpc KzPbB0LfzPAhIV9ekmYvPJ dlLiAgVGhlIHdhbGwgdGhp C6biCMPkRQCueaneqbPrfc 5qTFTwWG1hInDdM73jTYWy cnVwdHVyZSBzaXRlIGlzIG rer4MhtVbwtPGigxPpUueo SJqhDM8fWVRsHVGoi28noB apBT15U79lUZzadoLeDUA3 fB6gPT5wofbxwt0uWoRwtq CrBQ94DUOvneFec5NomQix sdQtq8ygZ2vzbX1ukWVrBD Unxv5ivtTkBGA1sC1uqdwg gBseQZAngQTkfF0rQPStmk CgAEU2zD6fVS6gvmbfxbJo bmQgZGlzdGFsIHRpcCBhcm Vrz0IlgNa6bKQiZTpwNVQg LUEyLlxwYXJccGFyZFxwbG FpblxmMFxmczIwXHBsYWlu XGYxXGZzMjAgSnVsaWUgTW TKqMpjcsT3GGOPRAidIZT3 Embedded Images (test code = 0507070052) [facility] GLUCOSE (AUTOMATED)2019-11-05 22:19:00 Test Item Value Reference Range Interpretation Comments POCT GLU (test code = 9392244059) 115 mg/dL 70-110 H Lab Interpretation (test code = Abnormal 03806-5) [facility] GLUCOSE (AUTOMATED)2019-11-05 18:23:00 Test Item Value Reference Range Interpretation Comments POCT GLU (test code = 0497540177) 197 mg/dL 70-110 H Lab Interpretation (test code = Abnormal 48946-5) [facility] GLUCOSE (AUTOMATED)2019-11-05 17:33:00 Test Item Value Reference Range Interpretation Comments POCT GLU (test code = 5109573094) 125 mg/dL 70-110 H Lab Interpretation (test code = Abnormal 36784-5) [facility] GLUCOSE (AUTOMATED)2019-11-05 13:28:00 Test Item Value Reference Range Interpretation Comments POCT GLU (test code = 1252521565) 130 mg/dL 70-110 H Lab Interpretation (test code = Abnormal 13484-7) [facility] METABOLIC PANEL (NA, K, CL, CO2, GLUCOSE, BUN, CREATININE, CA)2019-11-05 12:11:00 Test Item Value Reference Range Interpretation Comments NA (test code = 137 mmol/L 135-145 3840078946) K (test code = 3.6 mmol/L 3.5-5 1822121871) CL (test code = 100 mmol/L 98-108 9788284615) CO2 TOTAL (test code = 30 mmol/L 23-31 7243618820) AGAP (test code = 2-16 4442223301) BUN (test code = 14 mg/dL 7-23 9178538404) GLUCOSE (test code = 164 mg/dL 70-110 H 9234415776) CREATININE (test code = 0.81 mg/dL 0.6-1.25 9015378174) CALCIUM (test code = 8.6 mg/dL 8.6-10.6 4575456702) eGFR Calculation mL/min/1.73m2 (Non-) (test code = 0938405344) eGFR Calculation mL/min/1.73m2 () (test code = 1756002319) KATE (test code = KATE) Association of [...] tests). Lab Interpretation Abnormal (test code = 21364-2) [facility] WITH [id number] 11:39:00 Test Item Value Reference Range Interpretation Comments WBC (test code = See_Comment [Automated 2770-2) message] The sy stem which generated this result transmitted reference range : 4.20 - 10.70 10*3/?L. The reference range was not used to interpret this result as normal/abnormal . RBC (test code = See_Comment [Automated 531-8) message] The sy stem which generated this [...] RDW-SD (test code = 38.7 fL 38.5-51.6 60214-1) RDW-CV (test code = 13.0 % 12.1-15.4 788-0) PLT (test code = See_Comment [Automated 777-3) message] The sy stem which generated this result transmitted reference range : 150 - 328 10*3/ ?L. The reference r jevon was not used to interpret this result as normal/abnormal . MPV (test code = 11.5 fL 9.8-13 35374-6) NRBC/100 WBC (test See_Comment [Automat ed code = 0765034144) message] The system which generated this result transmitted reference range : 0.0 - 10.0 /100 WBCs. The refer ence range was not u sed to interpret th is result as normal/abnormal . NRBC x10^3 (test code <0.01 See_Comment [Auto mated = 1366367273) message] The s ystem which generated this result transmitted reference range : 10*3/?L. The reference range was not used to interpret this result as normal/abnormal . GRAN MAT (NEUT) % 83.5 % (test code = 770-8) IMM GRAN % (test code 0.30 % = 4544253459) LYMPH % (test code = 9.3 % 736-9) MONO % (test code = 5.7 % 5905-5) EOS % (test code = 1.1 % 713-8) BASO % (test code = 0.1 % 706-2) GRAN MAT x10^3(ANC) 7.74 10*3/uL 1.99-6.95 H (test code = 8664100081) IMM GRAN x10^3 (test 0.03 10*3/uL 0-0.06 code = 2018132913) LYMPH x10^3 (test code 0.86 10*3/uL 1.09-3.23 L = 731-0) MONO x10^3 (test code 0.53 10*3/uL 0.36-1.02 = 742-7) EOS x10^3 (test code = 0.10 10*3/uL 0.06-0.53 711-2) BASO x10^3 (test code <0.03 0.01-0.09 = 704-7) Lab Interpretation Abnormal (test code = 83274-9) [facility] GLUCOSE (AUTOMATED)2019-11-05 10:22:00 Test Item Value Reference Range Interpretation Comments POCT GLU (test code = 1614421855) 149 mg/dL 70-110 H Lab Interpretation (test code = Abnormal 14487-4) [facility] GLUCOSE (AUTOMATED)2019-11-05 06:15:00 Test Item Value Reference Range Interpretation Comments POCT GLU (test code = 9325029481) 204 mg/dL 70-110 H Lab Interpretation (test code = Abnormal 85286-6) [facility] GLUCOSE (AUTOMATED)2019-11-05 01:48:00 Test Item Value Reference Range Interpretation Comments POCT GLU (test code = 8953760983) 227 mg/dL 70-110 H Lab Interpretation (test code = Abnormal 50174-8) [facility] GLUCOSE (AUTOMATED)2019-11-04 22:30:00 Test Item Value Reference Range Interpretation Comments POCT GLU (test code = 8877006550) 132 mg/dL 70-110 H Lab Interpretation (test code = Abnormal 50620-1) [facility] GLUCOSE (AUTOMATED)2019-11-04 17:24:00 Test Item Value Reference Range Interpretation Comments POCT GLU (test code = 7272848565) 213 mg/dL 70-110 H Lab Interpretation (test code = Abnormal 77190-7) [facility] GLUCOSE (AUTOMATED)2019-11-04 13:31:00 Test Item Value Reference Range Interpretation Comments POCT GLU (test code = 6321908373) 203 mg/dL 70-110 H Lab Interpretation (test code = Abnormal 51102-0) [facility] GLUCOSE (AUTOMATED)2019-11-04 12:03:00 Test Item Value Reference Range Interpretation Comments POCT GLU (test code = 5514599896) 213 mg/dL 70-110 H Lab Interpretation (test code = Abnormal 18043-1) [facility] 23:50:00 Test Item Value [...] Indicated Lab Interpretation Abnormal (test code = 57895-5) [facility] GLUCOSE (AUTOMATED)2019-11-03 23:28:00 Test Item Value Reference Range Interpretation Comments POCT GLU (test code = 2045137260) 273 mg/dL 70-110 H Lab Interpretation (test code = Abnormal 48092-1) [facility] [id number] 18:01:52CT Abdomen and Pelvis with intravenous contrast. CLINICAL HISTORY: Abdominal infection including peritonitis. DOSE: Up-to-date CT equipment and radiation dose reduction techniques wereemployed. CTDIvol: 15.15 mGy. DLP: 901 mGy-cm. TECHNIQUE : Contiguous axial imaging from the level of the lung basesthr ough the pubic symphysis were performed after the uncomplicatedadministration of Omnipaque contrast material. Coronal and sagittalreconstructions were obtained. Auto mA and/or iterative reconstruction wereused to reduce radiation dose. FINDINGS: ? Lower lungs: Minimal congestion in the right lower lung. No pleuraleffusion or pericardial effusion. Short sliding hiatal hernia notedsurrounded by herniated intra-abdominal fat in the lower posteriormediastinum. Liver, Gallbladder and Spleen: The liver isenlarged, 24.5 cm in lengthwith mild diffuse hepatic steatosis. Spleen measures approximately 13.5 x3.7 cm. No enhancing lesions are seen in the liver or in the spleen. Nocalcified gallstones. Biliary ducts and the pancreatic duct appear ofnormal size. 15 mm accessory splenule noted near the hilum of the spleen. Peritoneum: ?No free air or free fluid. No lymphadenopathy. Pancreas and Adrenals: ?Unrema rkable pancreas and adrenal glands. Kidneys and Ureters: ?No visible calculi in the renal collectingsystems. No hydroureter or hydronephrosis. Vessels: Unremarkable. Incidental note made of 2 left renal arteriesarising from the abdominal aorta. Retroperitoneum: No abnormal fluid or lymphadenopathy. Bowel: Congestion of the fat noted in the right lower quadrant of theabdomen, surrounding slightly dilated and inflamed appendix. No perforationor periappendiceal abscess. Minimal fluid noted in the cul-de-sac. Bladder and Reproductive Organs: Urinary bladder is not opacified by theintravenously injected contrast medium. No gross pathology seen in theunopacified urinary bladder. Bones: Lower thoracic kyphosis, slightly exaggerated lumbar lordosis,Schmorl's nodes in multiple [...] region onboth sides, likely incidental reactive nonspecific adenopathy. CONCLUSION:1. Moderate uncomplicated acute appendicitis.2. Hepatosplenomegaly.3. Sliding hiatal hernia. PS: This case was discussed with Dr. Rhoades in the emergency room at 12:00. [facility], Radiant Results Inft User - 11/03/2019 [...] the hilum of the spleen.Peritoneum: No free air or freefluid. No lymphadenopathy.Pancreas and Adrenals: Unremarkable pancreas and adrenal glands.Kidneys and Ureters: No visible calculi in the renal collecting systems. No hydroureter or hydronephrosis. Vessels: Unremarkable. Incidental note made of 2 left renal arteriesarising from the abdominal aorta.Retroperitoneum: No abnormal fluid or lymphadenopathy.Bowel: Congestion of the fat noted in the right lower quadrant of theabdomen, surrounding slightly dilated and inflamed appendix. No perforationor periappendiceal abscess. Minimal fluid noted in the cul-de-sac.Bladder and Reproductive Organs: Urinary bladder is not opacified by theintravenously injected contrast medium. No gross pathology seen in theunopacified urinary bladder.Bones: Lower thoracic kyphosis, slightly exaggerated lumbar lordosis,Schmorl's nodes in multiple thoracic and lumbar vertebral endplates, likelysecondary to axial loading trauma. Wedge- shaped compression deformity alsonoted in several lower thoracic vertebral bodies.Mild bilateral hip joint arthritis is noted, more on the right side. Shapeof the neck and head of both femurs suggests bilateral femoroacetabularimpingement.Soft tissues: Multiple lymph nodes in the superficial inguinal region onboth sides, likely incidental reactive nonspecific adenopathy.CONCLUSION:1. Moderateuncomplicated acute appendicitis.2. Hepatosplenomegaly.3. Sliding hiatal hernia.PS: This case was discussed with Dr. Rhoades in the emergency room at 12:00.[facility] [id number] 16:23:00 Test Item Value Reference Range Interpretation Comments APPEARANCE (test code = Clear Clear [id number]) COLOR (test code = Yellow Yellow [id number]) PH (test code = 4.8-8.0 3993920525) SP GRAVITY (test code = 1.003-1.030 2998707813) GLU U QUAL (test code = 500 mg/dL Normal A 0439656467) BLOOD (test code = Negative Negative 5394362429) KETONES (test code = Negative Negative 7695069059) PROTEIN (test code = Negative Negative 2887-8) UROBILIN (test code = Normal Normal 8084364687) BILIRUBIN (test code = Negative Negative 4165273041) NITRITE (test code = Negative Negative 7460894976) LEUK BIANCA (test code = Negative Negative 5254226252) RBC/HPF (test code = See_Comment [Autom ated message] [id number]) The system [employer] generated this result transmit yelena reference range : 0 - 3 HPF. The refe rence range was not u sed to interpret th is result as normal/abnormal . WBC/HPF (test code = See_Comment [Autom ated message] 7479295677) The system [employer] generated this result transmit yelena reference range : 0 - 5 HPF. The refe rence range was not u sed to interpret th is result as normal/abnormal . BACTERIA (test code = Negative Negative 4570353430) MUCOUS (test code = Slight Negative LPF A 6137036838) SQ EPITH (test code = <1 HPF 1570577043) Lab Interpretation (test Abnormal code = 39637-7) [id number]:04:00 Test Item Value Reference Range Interpretation Comments NA (test code = 137 mmol/L 135-145 5648098830) K (test code = 4.3 mmol/L 3.5-5 0892312954) CL (test code = 98 mmol/L 98-108 3102645238) CO2 TOTAL (test code = 28 mmol/L 23-31 8671972912) AGAP (test code = 2-16 4897947790) BUN (test code = 11 mg/dL 7-23 9044507975) GLUCOSE (test code = 356 mg/dL 70-110 H 8980685558) CREATININE (test code = 1.01 mg/dL 0.6-1.25 0624302234) TOTAL BILI (test code = 0.9 mg/dL 0.1-1.5 9345542985) CALCIUM (test code = 9.1 mg/dL 8.6-10.6 6641043761) T PROTEIN (test code = 7.5 g/dL 6.3-8.2 8085838682) ALBUMIN (test code = 4.7 g/dL 3.5-5 0759252761) ALK PHOS (test code = 73 U/L 34-122 4101698228) ALTv (test code = 38 U/L 5-50 1742-6) AST(SGOT) (test code = 25 U/L 13-40 2826079786) eGFR Calculation mL/min/1.73m2 (Non-) (test code = 5065041416) eGFR Calculation mL/min/1.73m2 () (test code = 6860483048) KATE (test code = KATE) Association of [...] tests). Lab Interpretation Abnormal (test code = 67219-5) [facility] Test Item Value Reference Range Interpretation Comments LIPASE (test code = 2369722245) 48 U/L 0-220 Lab Interpretation (test code = Normal 71015-8) [facility] [id number] 15:51:00 Test Item Value Reference Range Interpretation Comments WBC (test code = See_Comment H [Automated 8490-2) message] The system which generated this result [...] (test code = 37.8 fL 38.5-51.6 L 20202-4) RDW-CV (test code = 12.7 % 12.1-15.4 788-0) PLT (test code = See_Comment [Automated 777-3) message] The system which generated this result transmit yelena reference range : 150 - 328 10*3/ ?L. The reference range was not u sed to interpret th is result as normal/abnormal . MPV (test code = 10.9 fL 9.8-13 51831-1) NRBC/100 WBC (test See_Comment [Automat ed code = 1799074484) message] The system which generated this result transmit yelena reference range : 0.0 - 10.0 /100 WBCs. The reference range was not used to interpret this result as normal/abnormal . NRBC x10^3 (test code <0.01 See_Comment [Auto mated = 5917541586) message] The system which generated this result transmit yelena reference range : 10*3/?L. The reference range was not used to interpret this result as normal/abnormal . GRAN MAT (NEUT) % 91.5 % (test code = 770-8) IMM GRAN % (test code 0.50 % = 4335809298) LYMPH % (test code = 3.9 % 736-9) MONO % (test code = 3.8 % 5905-5) EOS % (test code = 0.1 % 713-8) BASO % (test code = 0.2 % 706-2) GRAN MAT x10^3(ANC) 12.89 10*3/uL 1.99-6.95 H (test code = 7095285062) IMM GRAN x10^3 (test 0.07 10*3/uL 0-0.06 H code = 4299336506) LYMPH x10^3 (test code 0.55 10*3/uL 1.09-3.23 L = 731-0) MONO x10^3 (test code 0.54 10*3/uL 0.36-1.02 = 742-7) EOS x10^3 (test code = <0.03 0.06-0.53 L 711-2) BASO x10^3 (test code 0.03 10*3/uL 0.01-0.09 = 704-7) Lab Interpretation Abnormal (test code = 66855-4) [facility]"
[2022-05-25] MEDS ORDERED: PROMETHAZINE INJ 25 MG/ML AMP ONE (19:32)
[2022-05-25] MEDS ORDERED: HYDROMORPHONE HCL 1 MG/ML INJ ONE ×2 (19:32→21:55)
[2022-05-25] MEDS ORDERED: dexAMETHasone 10 MG/ML VIAL ONE (19:33)
[2022-05-25] MEDS ORDERED: MAGNESIUM SULFATE 1 gm IVPB 1 GM/100 ML BAG IV ONE (19:33)
[2022-05-25] MEDS ORDERED: NA CHLORIDE 0.9% 1,000 ML ONE (19:33)
--- NOTE | 2022-05-25 21:41 | EDPHYS ---
Physician Documentation [facility] Name: Chente Minaya Age: 51 yrs Sex: Male : 1970 Arrival Date: 05/25/2022 Time: 18:50 Bed 9 Private MD: ED Physician Juan A Jarrell HPI: 05/25 19:07 This 51 yrs old Male presents to ER via Ambulatory with complaints of Migraine, Nausea. rn 19:07 The patient complains of pain to the top of head. The patient describes the headache as rn aching. Onset: The symptoms/episode began/occurred today. Associated signs and symptoms: Pertinent positives: nausea, Pertinent negatives: fever, neck stiffness, vision loss, vertigo. Severity of symptoms: At its worst the pain was moderate, in the emergency department the pain is unchanged. Headache History: The patient has had previous headaches and this one is similar to previous episodes. The symptoms are alleviated by nothing. the symptoms are aggravated by nothing. The patient has experienced similar episodes in the past. The patient has not recently seen a physician. Pt states symptoms identical to previous migraines. NO trauma. No fever. No focal neuro complaints. Historical: - Allergies: 18:53 Bactrim; ll1 18:53 mushroom; ll1 18:53 Mustard; ll1 18:53 PENICILLINS; ll1 18:53 Reglan; ll1 18:53 Sulfa (Sulfonamide Antibiotics); ll1 18:53 surgical steel; ll1 18:53 tramadol; ll1 18:53 Tylenol-Codeine #3; ll1 18:53 Tylenol-Codeine #4; ll1 - PMHx: 18:53 Diabetes mellitus; ll1 - Immunization history:: Client reports having NOT received the Covid vaccine. - Social history:: Smoking status: Patient denies any tobacco usage or history of. - Family history:: not pertinent. - Hospitalizations: : No recent hospitalization is reported. ROS: 19:07 Constitutional: Negative for fever, chills, and weight loss, Eyes: Negative for injury, rn pain, redness, and discharge, Neck: Negative for injury, pain, and swelling, Cardiovascular: Negative for chest pain, palpitations, and edema, Respiratory: Negative for shortness of breath, cough, wheezing, and pleuritic chest pain, Abdomen/GI: Negative for abdominal pain, vomiting, diarrhea, and constipation, Back: Negative for injury and pain, MS/Extremity: Negative for injury and deformity, Skin: Negative for injury, rash, and discoloration, Neuro: Negative for weakness, numbness, tingling, and seizure. Exam: 19:07 Constitutional: This is a well developed, well nourished patient who is awake, alert, rn and in no acute distress. Head/Face: Normocephalic, atraumatic. Neck: Trachea midline. Supple, full range of motion without nuchal rigidity, or vertebral point tenderness. No Meningismus. Cardiovascular: Tachycardic, regular. No pulse deficits. Respiratory: No increased work of breathing, no retractions or nasal flaring. Abdomen/GI: Soft, non-tender Skin: Warm, dry MS/ Extremity: Pulses equal, no cyanosis. Neuro: Awake and alert, GCS 15, oriented to person, place, time, and situation. Cranial nerves II-XII grossly intact. Motor strength 5/5 in all extremities. Sensory grossly intact. Cerebellar exam normal. Normal gait. Vital Signs: 18:59 BP 149 / 96; Pulse 105; Resp 17; Temp 97.9; Pulse Ox 97% ; Weight 124.74 kg; Height 6 ll1 ft. 2 in. (187.96 cm); Pain 10/10; 19:40 BP 144 / 97; Pulse 107; Resp 17; Temp 98.9; Pulse Ox 94% ; zm 21:59 BP 120 / 79; Pulse 94; Resp 16 S; Pulse Ox 95% on R/A; Pain 4/10; bb 18:59 Body Mass Index 35.31 (124.74 kg, 187.96 cm) ll1 [place] Coma Score: 21:40 Eye Response: spontaneous(4). Verbal Response: oriented(5). Motor Response: obeys rn commands(6). Total: 15. MDM: 19:00 Patient medically screened. rn 21:40 Differential diagnosis: migraine. Data reviewed: vital signs, nurses notes, old medical rn records, and as a result, I will discharge patient. Counseling: I had a detailed discussion with the patient and/or guardian regarding: the historical points, exam findings, and any diagnostic results supporting the discharge/admit diagnosis, the need for outpatient follow up, to return to the emergency department if symptoms worsen or persist or if there are any questions or concerns that arise at home. Response to treatment: the patient's symptoms have markedly improved after treatment, and as a result, I will discharge patient. Special discussion: I discussed with the patient/guardian in detail that at this point there is no indication for admission to the hospital. It is understood, however, that if the symptoms persist or worsen the patient needs to return immediately for re-evaluation. 05/25 19:05 Order name: IV Start; Complete Time: 19:42 rn Administered Medications: 19:30 Drug: Phenergan (promethazine) 12.5 mg Route: IVP; Site: left antecubital; bb 21:56 Follow up: Response: No adverse reaction; Pain is decreased bb 19:30 Drug: NS 0.9% 1000 ml Route: IV; Rate: 1000 ml; Site: left antecubital; bb 20:30 Follow up: IV Status: Completed infusion; IV Intake: 950ml bb 19:32 Drug: Decadron - Dexamethasone 10 mg Route: IVP; Site: left antecubital; bb 20:30 Follow up: Response: No adverse reaction bb 19:33 Drug: Dilaudid (HYDROmorphone) 1 mg Route: IVP; Site: left antecubital; bb 20:30 Follow up: Response: Pain is decreased bb 19:35 Drug: Magnesium Sulfate 1 grams Route: IVPB; Infused Over: 1 hrs; Site: left bb antecubital; 20:30 Follow up: IV Status: Completed infusion; IV Intake: 100ml bb 21:45 Drug: Dilaudid (HYDROmorphone) 1 mg Route: IVP; Site: left antecubital; bb 21:57 Follow up: Response: Medication administered at discharge. bb Disposition Summary: 05/25/22 21:41 Discharge Ordered Location: Home rn Problem: chronic rn Symptoms: have improved rn Condition: Stable rn Diagnosis - Migraine, unspecified, not intractable, without status migrainosus rn Followup: rn - With: Private Physician - When: As needed - Reason: Recheck today's complaints, Re-evaluation by your physician Discharge Instructions: - Discharge Summary Sheet rn - Migraine Headache rn Forms: - Medication Reconciliation Form rn - Thank You Letter rn - Antibiotic tile burner - Prescription Opioid Use rn Prescriptions: - promethazine 25 mg Oral Tablet - take 1 tablet by ORAL route every 6 hours As needed; 15 tablet; Refills: 0, rn Product Selection Permitted Signatures: Roya Jaime RN RN bb Juan A Jarrell MD MD rn Lewis, Lynsay, RN RN ll1 Corrections: (The following items were deleted from the chart) 19:00 18:53 Immunization history: Client reports receiving the 2nd dose of the Covid vaccine, ll1 ll1
--- NOTE | 2022-05-25 21:41 | ER ---
Nurse's Notes [facility] Name: Chente Minaya Age: 51 yrs Sex: Male : 1970 Arrival Date: 05/25/2022 Time: 18:50 Bed 9 Private MD: Diagnosis: Migraine, unspecified, not intractable, without status migrainosus Presentation: 05/25 18:59 Chief complaint: Patient states: Migraine MELCHOR with nausea and dizziness started last ll1 night. Coronavirus screen: Vaccine status: Patient reports being unvaccinated. Client denies travel out of the [place] in the last 14 days. At this time, the client does not indicate any symptoms associated with coronavirus-19. Ebola Screen: Patient denies travel to an Ebola-affected area in the 21 days before illness onset. Initial Sepsis Screen: Does the patient meet any 2 criteria? HR > 90 bpm. No. Patient's initial sepsis screen is negative. Does the patient have a suspected source of infection? Yes: Other: MELCHOR. Risk Assessment: Do you want to hurt yourself or someone else? Patient reports no desire to harm self or others. Onset of symptoms was May 24, 2022. 18:59 Method Of Arrival: Ambulatory ll1 18:59 Acuity: GILDARDO 3 ll1 Triage Assessment: 19:00 General: Appears uncomfortable, Behavior is cooperative, appropriate for age. Pain: ll1 Complains of pain in head Quality of pain is described as aching. Neuro: Reports headache. GI: Reports nausea. Historical: - Allergies: 18:53 Bactrim; ll1 18:53 mushroom; ll1 18:53 Mustard; ll1 18:53 PENICILLINS; ll1 18:53 Reglan; ll1 18:53 Sulfa (Sulfonamide Antibiotics); ll1 18:53 surgical steel; ll1 18:53 tramadol; ll1 18:53 Tylenol-Codeine #3; ll1 18:53 Tylenol-Codeine #4; ll1 - PMHx: 18:53 Diabetes mellitus; ll1 - Immunization history:: Client reports having NOT received the Covid vaccine. - Social history:: Smoking status: Patient denies any tobacco usage or history of. - Family history:: not pertinent. - Hospitalizations: : No recent hospitalization is reported. Screenin:39 Abuse screen: Denies threats or abuse. Nutritional screening: No deficits noted. bb Tuberculosis screening: No symptoms or risk factors identified. Fall Risk None identified. Assessment: 19:39 General: Appears in no apparent distress. uncomfortable, Behavior is calm, cooperative. bb Pain: Complains of pain in top of head Pain currently is 10 out of 10 on a pain scale. Neuro: Level of Consciousness is awake, alert, obeys commands, Oriented to person, place, time, situation. Cardiovascular: Capillary refill < 3 seconds Patient's skin is warm and dry. Respiratory: Respiratory effort is even, unlabored, Respiratory pattern is regular. GI: Abdomen is non-distended, Reports nausea. Derm: Skin is pink, warm \T\ dry. Musculoskeletal: Circulation, motion, and sensation intact. 21:02 Reassessment: Patient appears in no apparent distress at this time. Patient and/or hb family updated on plan of care and expected duration. Pain level reassessed. Patient is alert, oriented x 3, equal unlabored respirations, skin warm/dry/pink. 21:57 Reassessment: Patient is alert, oriented x 3, equal unlabored respirations, skin bb warm/dry/pink. pt verbalized understanding of and agrees to plan of care discharge instructions given pt ambulated with steady gait to exit to await transportation from girlfriend Patient states feeling better. Patient states symptoms have improved. Vital Signs: 18:59 BP 149 / 96; Pulse 105; Resp 17; Temp 97.9; Pulse Ox 97% ; Weight 124.74 kg; Height 6 ll1 ft. 2 in. (187.96 cm); Pain 10/10; 19:40 BP 144 / 97; Pulse 107; Resp 17; Temp 98.9; Pulse Ox 94% ; zm 21:59 BP 120 / 79; Pulse 94; Resp 16 S; Pulse Ox 95% on R/A; Pain 4/10; bb 18:59 Body Mass Index 35.31 (124.74 kg, 187.96 cm) ll1 [place] Coma Score: 21:40 Eye Response: spontaneous(4). Verbal Response: oriented(5). Motor Response: obeys rn commands(6). Total: 15. ED Course: 18:50 Patient arrived in ED. rg4 18:53 Arm band placed on. ll1 18:59 Juan A Jarrell MD is Attending Physician. rn 19:00 Triage completed. ll1 19:30 Inserted saline lock: 20 gauge in left antecubital area, using aseptic technique. bb 19:39 Roya Jaime, CORA is Primary Nurse. bb 19:39 Patient has correct armband on for positive identification. Bed in low position. Call bb light in reach. Side rails up X 1. Pulse ox on. NIBP on. Door closed. Noise minimized. Lights dimmed. 21:59 IV discontinued, intact, bleeding controlled, No redness/swelling at site. Pressure bb dressing applied. 22:00 No provider procedures requiring assistance completed. bb Administered Medications: 19:30 Drug: Phenergan (promethazine) 12.5 mg Route: IVP; Site: left antecubital; bb 21:56 Follow up: Response: No adverse reaction; Pain is decreased bb 19:30 Drug: NS 0.9% 1000 ml Route: IV; Rate: 1000 ml; Site: left antecubital; bb 20:30 Follow up: IV Status: Completed infusion; IV Intake: 950ml bb 19:32 Drug: Decadron - Dexamethasone 10 mg Route: IVP; Site: left antecubital; bb 20:30 Follow up: Response: No adverse reaction bb 19:33 Drug: Dilaudid (HYDROmorphone) 1 mg Route: IVP; Site: left antecubital; bb 20:30 Follow up: Response: Pain is decreased bb 19:35 Drug: Magnesium Sulfate 1 grams Route: IVPB; Infused Over: 1 hrs; Site: left bb antecubital; 20:30 Follow up: IV Status: Completed infusion; IV Intake: 100ml bb 21:45 Drug: Dilaudid (HYDROmorphone) 1 mg Route: IVP; Site: left antecubital; bb 21:57 Follow up: Response: Medication administered at discharge. bb Medication: 19:39 VIS not applicable for this client. bb Intake: 20:30 IV: 950ml; Total: 950ml. bb 20:30 IV: 100ml; Total: 1050ml. bb Outcome: 21:41 Discharge ordered by . rn 22:00 Discharged to home ambulatory, with family. bb 22:00 Condition: stable 22:00 Discharge instructions given to patient, Instructed on discharge instructions, follow up and referral plans. medication usage, Demonstrated understanding of instructions, follow-up care, medications, Prescriptions given X 1. 22:00 Patient left the ED. bb Signatures: Roya Jaime RN RN Juan A Aaron MD MD rn Baxter, Heather, RN RN hb Garcia, Rubi rg4 Gagan Real RN RN ll1 Airam Farris Corrections: (The following items were deleted from the chart) 19:00 18:53 Immunization history: Client reports receiving the 2nd dose of the Covid vaccine, ll1 ll1
[2022-05-26 01:23] VITALS: TEMP 98.9
[2022-05-26 01:32] VITALS: BP 120/79; O2SAT 95
== END 2022-05-25 22:00 | disposition home or self-care (01) ==
LOC: ER 18:48
DX: G43.009 Migraine without aura, not intractable, without status migrainosus (principal); E11.9 Type 2 diabetes mellitus without complications; Z88.0 Allergy status to penicillin; Z88.1 Allergy status to other antibiotic agents; Z88.2 Allergy status to sulfonamides; Z88.5 Allergy status to narcotic agent; Z88.8 Allergy status to other drugs, medicaments and biological substances; Z91.018 Allergy to other foods; Z91.048 Other nonmedicinal substance allergy status
CPT/HCPCS: 96365; 96375; 99284; J2550; J3475; J1100; J1170 ×2; J7030

== ENCOUNTER 2022-06-08 20:11 | Emergency (ER) | payer OTHER ==
--- OUTSIDE RECORDS SUMMARY | 2022-06-08 20:17 | XMS REPORT | Continuity of Care Document ---
:1970 Author Organization [facility] t Address [address] [place] [address] Care Team Providers Name Role Phone PCP, PATIENT DOES NOT HAVE A Primary Care Physician UnavailSILVINA Iglesias Attending Clinician Unavailable Norberto Bernal MD Attending Clinician NORBERTO BERNAL Attending Clinician Unavailable NORBERTO BERNAL Attending Clinician Unavailable Yazmin Ashby Attending Clinician Yazmin APPLE Attending Clinician Unavailable Doctor Unassigned, [place] Attending Clinician Unavailable Meggan Adamson Attending Clinician [...] vers pain pain 2-20 ity of 00:00: [address] Obesity Obesity Disease Active Univers (BMI [...] Quantity Comments Source Exposure to Not sure [place] of SARS-CoV-2 [facility] (event) Branch Sex Assigned At Universit y of [facility] Branch Tobacco use and 2020-04-24 2020-04-24 Never used Universit y of exposure 00:00:00 00:00:00 [facility] Branch Alcohol intake 2020-04-24 2020-04-24 Current drinker Unive rsity of 00:00:00 00:00:00 of alcohol [facility] (finding) Branch History SDOH 2019-11-03 2019-11-03 5 University o f Financial 00:00:00 00:00:00 [facility] Smoking Status Start Date Stop Date Source Former smoker 2020-04-24 00:00:00 2020-04-24 00:00:00 [facility] Medications Ordered Filled Start Stop Current Ordering Indication Dosage Frequency Signature Comments Components Source Medication Medication Date Date Medication? Clinician (SIG) Name Name divalproex 2020-0 Yes [id number] 250mg Take 1 Univers ER 250 mg 8-10 tablet by ity o f 24 hr 00:00: mouth 2 [place] tablet 00 (two) Medical times [place] daily. divalproex 2020-0 Yes [id number] 250mg Take 1 Univers ER 250 mg 8-10 tablet by ity o f 24 hr 00:00: mouth 2 [place] tablet 00 (two) Medical times [place] daily. water for 0 Yes PRN, Univers irrigation 7-24 Starting ity o f irrigation 03:19: Angelina [place] solution 00 04/06/20 at Medic al 221, [place] Until Discontinu ed, Routine, Intra-op simethicone 0 Yes PRN, Univer s (GAS RELIEF 24 Starting ity of (SIMETHICON 03:19: Angelina [place] E)) 40 00 04/06/20 at Medical mg/0.6 mL 2218, [place] drops Until Discontinu ed, Routine, Intra-op glucagon [...] Sat Med ical tablet 1 02/19/20 at [place] tablet 2015, MANDEEP NaCl 0.9% 2020-0 2020- No 1000mL at 999 Uni vers (NS) bolus 02-18-06 mL/hr, ity of infusion 23:00: 23:28 1,000 mL, Danie as 1,000 mL 00 :00 IV Medical Infusion, [place] ONCE, 1 dose, 02/19/20 at 1800, STAT morpHINE 2020-0 2020- No 4mg 4 mg, Slow Un grabiel injection 4 02-18 IV Push, ity of mg 23:00: 22:01 ONCE, 1 [place] 00 :00 dose, Sat Medical 02/19/20 at Branch 1800, STAT insulin 2020-0 2020- No 10U 10 Units, Univ ers regular 02-18 Subcutaneo ity o f human 22:45: 21:54 , ONCE, [place] (HUMULIN R) 00 :00 1 dose, Medic al injection 02/19/20 Bran ch 10 Units at 1745, STAT NaCl 0.9% 2019-0 2020- No 1000mL at 999 Uni vers (NS) bolus 02-18 mL/hr, ity of infusion 21:45: 23:27 1,000 mL, Danie as 1,000 mL 00 :00 IV Medical Infusion, [place] ONCE, 1 dose, 02/19/20 at 1645, STAT ondansetron 2019-0 2020- No 4mg 4 mg, Slow Univers (ZOFRAN 02-18 IV Push, ity of (PF)) 21:45: 20:51 ONCE, 1 [place] injection 4 00 :00 dose, Sat Med ical mg 02/19/20 at Branch 1645, MANDEEP FENTanyl PF 2019-0 2020- No 25ug 25 mcg, Un grabiel (SUBLIMAZE 02-18 Slow IV ity o f (PF)) 21:45: 20:50 Push, [place] injection 00 :00 ONCE, 1 Medical 25 mcg dose, Sat [place] 02/19/20 at 1645, STAT clindamycin 2019-0 2020- No 900mg 900 mg, IV Univers in 5 % 02-18 Piggyback, ity of dextrose 21:45: 21:21 ONCE, 1 [place] (CLEOCIN) 00 :00 dose, Sat Medic al [...] Branch 1630, MANDEEP traMADol 50 2019-0 Yes [id number] 50mg Take 1 Univers mg tablet 6-06 tablet by ity o f 00:00: mouth [place] 00 every 6 Medical (six) Branch hours as needed for Pain (scale 4-6). traMADol 50 2019-0 Yes [id number] 50mg Take 1 Univers mg tablet 6-06 tablet by ity o f 00:00: mouth [place] 00 every 6 Medical (six) Branch hours as needed for Pain (scale 4-6). traMADol 50 2019-0 Yes [id number] 50mg Take 1 Univers mg tablet 6-06 tablet by ity o f 00:00: mouth [place] 00 every 6 Medical (six) Branch hours as needed for Pain (scale 4-6). traMADol 50 2019-0 Yes [id number] 50mg Take 1 Univers mg tablet 6-06 tablet by ity o f 00:00: mouth [place] 00 every 6 Medical (six) Branch hours as needed for Pain (scale 4-6). traMADol 50 2019-0 Yes [id number] 50mg Take 1 Univers mg tablet 6-06 tablet by ity o f 00:00: mouth [place] 00 every 6 Medical (six) Branch hours as needed for Pain (scale 4-6). traMADol 50 2019-0 Yes [id number] 50mg Take 1 Univers mg tablet 6-06 tablet by ity o f 00:00: mouth [place] 00 every 6 Medical (six) Branch hours as needed for Pain (scale 4-6). clindamycin 2019- 2020- No [id number] 450mg Take 3 Univers 150 mg 02-18 06-17 capsules ity of capsule 00:00: 04:59 by mouth 3 [place]ie as 00 :00 (three) Medical times Branch daily for 10 days. glipiZIDE 2020-0 Yes [id number] 10mg Take 1 Un grabiel 10 mg 2-22 tablet by ity of tablet 00:00: mouth 2 [place] 00 (two) Medical times Branch daily before breakfast and dinner. HYDROcodone 2020-0 Yes [id number] 1{tbl} Take 1 Univers -acetaminop 2-22 tablet by ity of hen 5-325 00:00: mouth [place] mg tablet 00 every 6 Medical (six) Branch hours as needed for Pain (scale 7-10). glipiZIDE 2020-0 Yes [id number] 10mg Take 1 Un grabiel 10 mg 2-22 tablet by ity of tablet 00:00: mouth 2 [place] 00 (two) Medical times Branch daily before breakfast and dinner. HYDROcodone 2020-0 Yes [id number] 1{tbl} Take 1 Univers -acetaminop 2-22 tablet by ity of hen 5-325 00:00: mouth [place] mg tablet 00 every 6 Medical (six) Branch hours as needed for Pain (scale 7-10). glipiZIDE 2020-0 Yes [id number] 10mg Take 1 Un grabiel 10 mg 2-22 tablet by ity of tablet 00:00: mouth 2 [place] 00 (two) Medical times Branch daily before breakfast and dinner. HYDROcodone 2020-0 Yes [id number] 1{tbl} Take 1 Univers -acetaminop 2-22 tablet by ity of hen 5-325 00:00: mouth [place] mg tablet 00 every 6 Medical (six) Branch hours as needed for Pain (scale 7-10). glipiZIDE 2020-0 Yes [id number] 10mg Take 1 Un grabiel 10 mg 2-22 tablet by ity of tablet 00:00: mouth 2 [place] 00 (two) Medical times Branch daily before breakfast and dinner. HYDROcodone 2020-0 Yes [id number] 1{tbl} Take 1 Univers -acetaminop 2-22 tablet by ity of hen 5-325 00:00: mouth [place] mg tablet 00 every 6 Medical (six) Branch hours as needed for Pain (scale 7-10). glipiZIDE 2020-0 Yes [id number] 10mg Take 1 Un grabiel 10 mg 2-22 tablet by ity of tablet 00:00: mouth 2 [place] 00 (two) Medical times Branch daily before breakfast and dinner. HYDROcodone 2020-0 Yes [id number] 1{tbl} Take 1 Univers -acetaminop 2-22 tablet by ity of hen 5-325 00:00: mouth [place] mg tablet 00 every 6 Medical (six) Branch hours as needed for Pain (scale 7-10). glipiZIDE 2020-0 Yes [id number] 10mg Take 1 Un grabiel 10 mg 2-22 tablet by ity of tablet 00:00: mouth 2 [place] 00 (two) Medical times Branch daily before breakfast and dinner. HYDROcodone 2020-0 Yes [id number] 1{tbl} Take 1 Univers -acetaminop 2-22 tablet by ity of hen 5-325 00:00: mouth [place] mg tablet 00 every 6 Medical (six) Branch hours as needed for Pain (scale 7-10). glipiZIDE 2020-0 Yes [id number] 10mg Take 1 Un grabiel 10 mg 2-22 tablet by ity of tablet 00:00: mouth 2 [place] 00 (two) Medical times Branch daily before breakfast and dinner. HYDROcodone 2020-0 Yes [id number] 1{tbl} Take 1 Univers -acetaminop 2-22 tablet by ity of hen 5-325 00:00: mouth [place] mg tablet 00 every 6 Medical (six) Branch hours as needed for Pain (scale 7-10). glipiZIDE 2020-0 Yes [id number] 10mg Take 1 Un grabiel 10 mg 2-22 tablet by ity of tablet 00:00: mouth 2 [place] 00 (two) Medical times Branch daily before breakfast and dinner. HYDROcodone 2020-0 Yes [id number] 1{tbl} Take 1 Univers -acetaminop 2-22 tablet by ity of hen 5-325 00:00: mouth [place] mg tablet 00 every 6 Medical (six) Branch hours as needed for Pain (scale 7-10). glipiZIDE 2020-0 Yes [id number] 10mg Take 1 Un grabiel 10 mg 2-22 tablet by ity of tablet 00:00: mouth 2 [place] 00 (two) Medical times Branch daily before breakfast and dinner. HYDROcodone 2020-0 Yes [id number] 1{tbl} Take 1 Univers -acetaminop 2-22 tablet by ity of hen 5-325 00:00: mouth [place] mg tablet 00 every 6 Medical (six) Branch hours as needed for Pain (scale 7-10). ciprofloxac 2020-0 2020- No [id number] 500mg Take 1 Univers in HCl 500 11-06 tablet by ity of mg tablet 00:00: 05:59 mouth [place] 00 :00 every 12 Medical (twelve) Branch hours for 7 days. metroNIDAZO 2020-0 2020- No [id number] 500mg Take 1 Univers LE 500 mg [...] o f U-100 01:30: 14:24 us, DAILY, [place] (LEVEMIR 00 :53 First dose Medic al [...] at Branch 1100, MANDEEP cyclobenzap 2018-09- No [id number] 5mg Take 1 Univers rine 5 mg 011-06 9100 tablet by ity of tablet 00:00: 00:00 mouth 3 [place] 00 :00 (three) Medical times Branch daily. traMADol 2018-09 2020- No [id number] 50mg Take 1 Univers (ULTRAM) 50 011-06 [...] Hospital Heart rate 2020-04-24 13:23:00 82 /min [facility] Body weight 2020-04-24 13:23:00 138.075 kg [facility] BMI 2020-04-24 13:23:00 39.08 kg/m2 [facility] Systolic blood 2020-04-24 13:23:00 129 mm[Hg] Univer sity of [facility] Diastolic blood 2020-04-24 13:23:00 81 mm[Hg] Unive rsity of [facility] Heart rate 2020-04-24 13:23:00 82 /min [facility] Body weight 2020-04-24 13:23:00 138.075 kg [facility] BMI 2020-04-24 13:23:00 39.08 kg/m2 [facility] Systolic blood 2020-04-07 03:51:00 118 mm[Hg] Univer sity of [facility] Diastolic blood 2020-04-07 03:51:00 68 mm[Hg] Unive rsity of pressure [place] [facility] Heart rate 2020-04-07 03:51:00 92 /min Universi ty [facility] [place] [facility] Respiratory rate 2020-04-07 03:51:00 16 /min Univ ersity of [place] [facility] Oxygen saturation in 2020-04-07 03:51:00 100 /min University of Arterial blood by [facility] Pulse oximetry Branch Body temperature 2020-04-07 03:40:00 36.44 Leonor Univ ersity of [place] [facility] Body weight 2020-04-07 00:07:00 129.275 kg [facility]i ty [facility] [place] [facility] BMI 2020-04-07 00:07:00 36.59 kg/m2 [facility]i ty [facility] [place] [facility] Heart rate 2020-02-19 23:10:00 105 /min [facility]i [facility] [place] [facility] Respiratory rate 2020-02-19 23:10:00 29 /min Univ ersity of [place] [facility] Oxygen saturation in 2020-02-19 23:10:00 94 /min University of Arterial blood by [facility] Pulse oximetry Branch Systolic blood 2020-02-19 23:00:00 127 mm[Hg] Univer sity of pressure [place] [facility] Diastolic blood 2020-02-19 23:00:00 78 mm[Hg] Unive rsity of pressure [place] [facility] Body temperature 2020-02-19 22:04:10 37.33 Leonor Univ ersity of [place] [facility] Body height 2020-02-19 19:56:00 188 cm [facility] ty [facility] [place] [facility] Body weight 2020-02-19 19:56:00 129.275 kg [facility]i ty [facility] [place] [facility] BMI 2020-02-19 19:56:00 36.59 kg/m2 [facility]i ty [facility] [place] [facility] Systolic blood 2019-11-06 17:14:00 138 mm[Hg] Univer sity of pressure [place] [facility] Diastolic blood 2019-11-06 17:14:00 88 mm[Hg] Unive rsity of pressure [place] [facility] Heart rate 2019-11-06 17:14:00 102 /min Universi ty [facility] [place] [facility] Respiratory rate 2019-11-06 17:14:00 18 /min Univ ersity of [place] [facility] Oxygen saturation in 2019-11-06 17:14:00 96 /min University of Arterial blood by [facility] Pulse oximetry Branch Body temperature 2019-11-06 14:00:00 36.72 Leonor [facility] Body height 2019-11-03 23:00:00 188 cm [facility] Body weight 2019-11-03 15:22:00 129.275 kg [facility] BMI 2019-11-03 15:22:00 36.58 kg/m2 [facility] Procedures Procedure Date / Time Performing Clinician Source Performed EGD (ENDO) 2020-04-07 02:31:21 Lisa Armendariz [facility] COMP. METABOLIC PANEL 2020-04-07 01:52:00 Yazmin Apple [facility] ([id number]) Medical Branch CBC WITH DIFF 2020-04-07 01:52:00 Yazmin Apple Melanie [facility] XR NECK SOFT TISSUE 2020-04-07 00:57:29 Yazmin Apple [facility] COVID-19 (ID NOW RAPID 2020-04-07 00:40:00 Yazmin Apple [facility] TESTING) Medical Branch NOTICE OF PRIVACY 2020-04-06 23:57:19 Doctor Unassigned, No [facility] PRACTICES Name [facility] Branch CONSENT/REFUSAL FOR 2020-04-06 23:57:05 [facility] [place] [facility] Name Medical Branch REFERRAL- 2020-03-29 05:01:00 Doctor Unassigned, No [facility] REQUEST/RESPONSE Name Medical Branch POCT GLUCOSE 2020-02-19 23:05:00 Meggan Heranndez [facility] (AUTOMATED) [facility] Branch POCT GLUCOSE 2020-02-19 21:52:00 Meggan Hernandez [facility] (AUTOMATED) [facility] COMP. METABOLIC PANEL 2020-02-19 20:47:00 Meggan Hernandez [facility] ([id number]) Medical Branch CBC WITH DIFFERENTIAL 2020-02-19 20:47:00 Meggan Hernandez [facility] COVID-19 (ID NOW RAPID 2020-02-19 20:47:00 Meggan Hernandez [facility] TESTING) Medical Branch NOTICE OF PRIVACY 2020-02-19 19:53:34 Doctor Unassigned, No [facility] PRACTICES Name Medical Branch CONSENT/REFUSAL FOR 2020-02-19 19:53:23 [facility] Name Medical Branch POCT GLUCOSE 2019-11-06 13:36:00 Luis Arshad [facility] (AUTOMATED) Medical Branch POCT GLUCOSE 2019-11-06 01:48:00 Luis Arshad [facility] (AUTOMATED) Medical Branch POCT GLUCOSE 2019-11-05 22:16[facility]00 [facility] POCT GLUCOSE 2019-11-05 17:26:00 Pavithra [facility] (AUTOMATED) Medical Branch POCT GLUCOSE 2019-11-05 13:21:00 Pavithra [facility] (AUTOMATED) Medical Branch BASIC METABOLIC PANEL 2019-11-05 10:28:00 [facility] (NA, K, CL, CO2, Medical Branch GLUCOSE, BUN, CREATININE, CA) CBC WITH DIFFERENTIAL 2019-11-05 10:28:00 [facility] Medical Branch POCT GLUCOSE 2019-11-05 10:12:00 [facility] Branch POCT GLUCOSE 2019-11-05 06:12:00 Pavithra [facility] (AUTOMATED) Medical Branch POCT GLUCOSE 2019-11-05 01:41:00 Pavithra [facility] (AUTOMATED) Medical Branch POCT GLUCOSE 2019-11-04 22:26:00 Luis Arshad [facility] (AUTOMATED) Medical Branch POCT GLUCOSE 2019-11-04 17:20:00 Pavithra [facility] (AUTOMATED) Medical Branch POCT GLUCOSE 2019-11-04 13:21:00 Pavithra [facility] (AUTOMATED) Medical Branch POCT GLUCOSE 2019-11-04 11:57:00 Pavithra [facility] (AUTOMATED) Medical Branch POCT GLUCOSE 2019-11-04 05:30:00 Pavithra [facility] (AUTOMATED) Medical Branch POCT GLUCOSE 2019-11-04 02:17:00 Pavithra [facility] (AUTOMATED) Medical Branch POCT GLUCOSE 2019-11-03 23:23:00 Pavithra [facility] (AUTOMATED) [facility] POCT GLUCOSE 2019-11-03 21:41:00 Pavithra [facility] (AUTOMATED) [facility] SURGICAL PATHOLOGY EXAM 2019-11-03 20:26:00 Yonatan Lund [facility] LAP[facility]OSCOPIC 2019-11-03 19:24:00 Yonatan Lund [facility] APPENDECTOMY [facility] CT ABDOMEN PELVIS W 2019-11-03 17:41:22 Ervin Rhoades [facility] CONTRAST [facility] Branch LIPASE 2019-11-03 15:35:00 Jf [facility] COMP. METABOLIC PANEL 2019-11-03 15:35:00 Jf Ervin [facility] ([id number]) [facility] CBC WITH DIFFERENTIAL 2019-11-03 15:35:00 Jf Ervin [facility] GLYCOSYLATED HEMOGLOBIN 2019-11-03 15:35:00 Meggan Pichardo [facility] (A1C) [facility] URINALYSIS 2019-11-03 15:35:00 [facility] Start End Encounter Admission Attending Care Care Encounter Source Date/Time Date/Time Type Type Clinicians Facility Department ID 2020-08-15 2020-08-15 Outpatient R [facility] [id number] Univers 10:00:00 10:00:00 [facility] 2020-08-15 2020-08-15 [facility] [id number] Univers 10:00:00 10:00:00 SILVINA [facility] 2020-08-14 2020-08-14 Outpatient R [facility] [id number] Univers 10:40:00 10:40:00 [facility] 2020-04-24 2020-04-24 [facility] [id number] 08:15:37 08:49:56 Visit Norberto Ward [id number] [place]ian[place] [id number] Poli [id number] nal 092 Building 2020-04-24 2020-04-24 Office Dolores [facility] [id number] Univers 08:15:37 08:49:56 Visit Norberto Taye Ward [id number] ity [id number] Profess[place] [phone] Sc dical nal 092 [facility] 2020-04-24 2020-04-24 Outpatient R NORBERTO BERNAL [facility] [id number] Univers 08:00:00 08:00:00 NORBERTO BERNAL ity of [facility] 2020-04-06 2020-04-06 Emergency Yazmin Apple [facility] [id number] Univers 19:12:13 22:55:00 Melanie [place] [id number] i [id number] [id number] [facility] 071 [place] 2020-04-06 2020-04-06 Emergency X ZECHARIAH Yazmin [facility] ERT [id number] Univers 19:12:13 19:12:13 ity of [facility] 2020-04-06 2020-04-06 Orders Doctor SNEED [id number] [id number] Univers 00:00:00 00:00:00 Only Unassigned, MIRI [id number] ity of [place] [facility] [id number] Danie as [id number] [address] 2020-03-29 2020-03-29 Orders Doctor SNEED 1.2.840.114 [id number] Univers 00:00:00 00:00:00 Only Unassigned, MIRI [id number] ity of [place] [facility] [id number] Danie as [phone] [facility] 009 [place] 2020-02-19 2020-02-[address] [facility] [id number] Univers 15:07:18 19:22:00 Meggan [place] [id number] i [id number] [id number] [facility] 084 Branch 2020-02-19 2020-02-19 Emergency X [facility] ERT [id number] Univers 14:53:00 14:53:00 ity of [facility] 2020-02-19 2020-02-19 Orders Doctor NAREN [id number] [id number] Univers 00:00:00 00:00:00 Only Unassigned, MIRI [id number] ity of [place] [facility] [id number] Danie as [id number] [facility] 009 Branch 2019-11-08 2019-11-08 Transition Faraz Nicolas [id number] Univers 00:00:00 00:00:00 of Care Hortensia De Jesus [id number] ity [id number] [id number] [facility] 403 Branch 2019-11-03 2019-11-06 Hospital Ervin Rhoades [facility] 1.2.840.1 [id number] Univers 09:25:15 12:00:00 Encounter Luis Arshad [id number] ity [id number] [id number] [facility] 080 Branch 2019-11-03 2019-11-06 Inpatient X PAVITHRA [facility] TIMOTEO [id number] Univers 09:25:15 12:00:00 LUIS osman [facility] Results Test Description Test Time Test Comments Results Result Comments Source COMP. METABOLIC PANEL (98199) 2020-04-07 03:03:00 Test Item Value Reference Range Interpretation Comme nts NA (test code = 2722516022) 139 mmol/L 135-145 K (test code = 7836336483) 4.4 mmol/L 3.5-5 CL (test code = 0323872607) 101 mmol/L 98-108 CO2 TOTAL (test code = 5618354880) 28 mmol/L 23-31 AGAP (test code = 0628157114) 2-16 BUN (test code = 3605053867) 11 mg/dL 7-23 GLUCOSE (test code = 0310454349) 225 mg/dL 70-110 H CREATININE (test code = 0.98 mg/dL 0.6-1.25 3659439214) TOTAL BILI (test code = 0.5 mg/dL 0.1-1.6 9475967570) CALCIUM (test code = 5760881948) 9.6 mg/dL 8.6-10.6 T PROTEIN (test code = 5044681205) 8.2 g/dL 6.3-8.2 ALBUMIN (test code = 9414400714) 4.7 g/dL 3.5-5 ALK PHOS (test code = 4802995389) 75 U/L 34-122 ALTv (test code = 1742-6) 74 U/L 5-50 H AST(SGOT) (test code = 0499217062) 39 U/L 13-40 eGFR Calculation (Non- mL/min/1.73m2 [place]) (test code = 2144565187) eGFR Calculation ( mL/min/1.73m2 [place]) (test code = 2687786600) KATE (test code = KATE) Association of [...] tests). Lab Interpretation (test code = Abnormal 16628-5) [facility] WITH [id number] 02:12:00 Test Item Value Reference Range Interpretation [...] (test code = 36.4 fL 38.5-51.6 L 33997-0) RDW-CV (test code = 12.5 % 12.1-15.4 788-0) PLT (test code = See_Comment [Automated 777-3) message] The sy stem which generated this result transmitted reference range : 150 - 328 10*3/ ?L. The reference r jevon was not used to interpret this result as normal/abnormal . MPV (test code = 11.5 fL 9.8-13 56784-5) NRBC/100 WBC (test See_Comment [Automat ed code = 3485292283) message] The system which generated this result transmitted reference range : 0.0 - 10.0 /100 WBCs. The refer ence range was not u sed to interpret th is result as normal/abnormal . NRBC x10^3 (test code <0.01 See_Comment [Auto mated = 4611268703) message] The s ystem which generated this result transmitted reference range : 10*3/?L. The reference range was not used to interpret this result as normal/abnormal . GRAN MAT (NEUT) % 68.0 % (test code = 770-8) IMM GRAN % (test code 0.40 % = 4691121880) LYMPH % (test code = 23.8 % 736-9) MONO % (test code = 4.7 % 5905-5) EOS % (test code = 2.7 % 713-8) BASO % (test code = 0.4 % 706-2) GRAN MAT x10^3(ANC) 5.24 10*3/uL 1.99-6.95 (test code = 7084335219) IMM GRAN x10^3 (test 0.03 10*3/uL 0-0.06 code = 5883514574) LYMPH x10^3 (test code 1.83 10*3/uL 1.09-3.23 = 731-0) MONO x10^3 (test code 0.36 10*3/uL 0.36-1.02 = 742-7) EOS x10^3 (test code = 0.21 10*3/uL 0.06-0.53 711-2) BASO x10^3 (test code 0.03 10*3/uL 0.01-0.09 = 704-7) Lab Interpretation Abnormal (test code = 56272-9) [facility]ID [facility]2020-04-07 01:40:00 Test Item Value Reference Range Interpretation Comments SARS-CoV-2 Rapid ID NOW Not Detected Not Detected (test code = 91723-6) KATE (test code = KATE) ID NOW COVID-19 Assay is an isothermal nucleic acid amplification test intended for the qualitative detection of nucleic acid from SARS-CoV-2 viral RNA in nasopharyngeal (BATTERY INSPECTOR) specimens. It is used under Emergency Use [...] indicated. Lab Interpretation Normal (test code = 27542-0) [facility] N[facility]K SOFT [id number] 01:06:58 FINDINGS/IMPRESSION:: Frontal and lateral radiographs of [...] spondylotic changes at C5-C6. Cervical spine is otherwiseunremarkable.[facility] GLUCOSE (AUTOMATED)2020-02-19 23:08:00 Test Item Value Reference Range Interpretation Comments POCT GLU (test code = 8867173249) 243 mg/dL 70-110 H Lab Interpretation (test code = Abnormal 62952-2) [facility] GLUCOSE (AUTOMATED)2020-02-19 21:58:00 Test Item Value Reference Range Interpretation Comments POCT GLU (test code = 3249508164) 313 mg/dL 70-110 H Lab Interpretation (test code = Abnormal 24682-1) [facility]ID NOW RAPID TESTING)2020-02-19 21:31:00 Test Item Value Reference Range Interpretation Comments SARS-CoV-2 Rapid ID NOW Not Detected Not Detected (test code = 45227-3) KATE (test code = KATE) ID NOW COVID-19 Assay is an isothermal nucleic acid amplification test intended for the qualitative detection of nucleic acid from SARS-CoV-2 viral RNA in nasopharyngeal (BATTERY INSPECTOR) specimens. It is used under Emergency Use [...] indicated. Lab Interpretation Normal (test code = 10698-2) [facility]. METABOLIC PANEL (49202)2020-02-19 21:29:00 Test Item Value Reference Range Interpretation Comments NA (test code = 134 mmol/L 135-145 L 8391350428) K (test code = 4.1 mmol/L 3.5-5 8926775544) CL (test code = 99 mmol/L 98-108 7594024741) CO2 TOTAL (test code = 27 mmol/L 23-31 1491379686) AGAP (test code = 2-16 6523608972) BUN (test code = 10 mg/dL 7-23 8049302794) GLUCOSE (test code = 372 mg/dL 70-110 H 6913980789) CREATININE (test code = 0.96 mg/dL 0.6-1.25 3401641549) TOTAL BILI (test code = 0.4 mg/dL 0.1-1.0 2088740730) CALCIUM (test code = 9.2 mg/dL 8.6-10.6 5842999210) T PROTEIN (test code = 7.5 g/dL 6.3-8.2 9107572808) ALBUMIN (test code = 4.5 g/dL 3.5-5 7207121012) ALK PHOS (test code = 86 U/L 34-122 6845605373) ALTv (test code = 48 U/L 5-50 1742-6) AST(SGOT) (test code = 27 U/L 13-40 3926470830) eGFR Calculation mL/min/1.73m2 (Non-) (test code = 2827945512) eGFR Calculation mL/min/1.73m2 () (test code = 2077162118) KATE (test code = KATE) Association of [...] tests). Lab Interpretation Abnormal (test code = 47087-9) [facility] WITH [id number] 21:06:00 Test Item Value Reference Range Interpretation Comments WBC (test code = See_Comment [Automated 6613-2) message] The sy stem which generated this result transmitted reference range : 4.20 - 10.70 10*3/?L. The reference range was not used to interpret this result as normal/abnormal . RBC (test code = See_Comment H [Automated 819-8) message] The sy stem which generated this [...] (test code = 36.3 fL 38.5-51.6 L 67352-7) RDW-CV (test code = 12.9 % 12.1-15.4 788-0) PLT (test code = See_Comment [Automated 777-3) message] The sy stem which generated this result transmitted reference range : 150 - 328 10*3/ ?L. The reference r jevon was not used to interpret this result as normal/abnormal . MPV (test code = 11.3 fL 9.8-13 54570-0) NRBC/100 WBC (test See_Comment [Automat ed code = 2165997105) message] The system which generated this result transmitted reference range : 0.0 - 10.0 /100 WBCs. The refer ence range was not u sed to interpret th is result as normal/abnormal . NRBC x10^3 (test code <0.01 See_Comment [Auto mated = 6343164272) message] The s ystem which generated this result transmitted reference range : 10*3/?L. The reference range was not used to interpret this result as normal/abnormal . GRAN MAT (NEUT) % 79.8 % (test code = 770-8) IMM GRAN % (test code 0.50 % = 2727344812) LYMPH % (test code = 13.4 % 736-9) MONO % (test code = 4.2 % 5905-5) EOS % (test code = 1.8 % 713-8) BASO % (test code = 0.3 % 706-2) GRAN MAT x10^3(ANC) 8.49 10*3/uL 1.99-6.95 H (test code = 7714123733) IMM GRAN x10^3 (test 0.05 10*3/uL 0-0.06 code = 2397204761) LYMPH x10^3 (test code 1.42 10*3/uL 1.09-3.23 = 731-0) MONO x10^3 (test code 0.45 10*3/uL 0.36-1.02 = 742-7) EOS x10^3 (test code = 0.19 10*3/uL 0.06-0.53 711-2) BASO x10^3 (test code 0.03 10*3/uL 0.01-0.09 = 704-7) Lab Interpretation Abnormal (test code = 46176-7) [facility] GLUCOSE (AUTOMATED)2019-11-06 13:38:00 Test Item Value Reference Range Interpretation Comments POCT GLU (test code = 6470110399) 116 mg/dL 70-110 H Lab Interpretation (test code = Abnormal 32873-7) [facility] GLUCOSE (AUTOMATED)2019-11-06 12:29:00 Test Item Value Reference Range Interpretation Comments POCT GLU (test code = 5302091286) 322 mg/dL 70-110 H Lab Interpretation (test code = Abnormal 45739-9) [facility] GLUCOSE (AUTOMATED)2019-11-06 12:29:00 Test Item Value Reference Range Interpretation Comments POCT GLU (test code = 1585393496) 230 mg/dL 70-110 H Lab Interpretation (test code = Abnormal 98354-2) [facility] GLUCOSE (AUTOMATED)2019-11-06 02:00:00 Test Item Value Reference Range Interpretation Comments POCT GLU (test code = 155 mg/dL 70-110 H Notifi ed Provider 2795702512) Lab Interpretation (test Abnormal code = 69791-9) [facility] [id number] 00:02:00 Test Item Value Reference Range Interpretation Comments Case Report (test code Surgical Pathology ? ? = [id number]) ?Case: [id number] ? Authorizing Provider: ?Yonatan Lund MD ? ? ? Collected: ? 11/03/2019 1426 ?Ordering Location: ? ? [facility] ? ? ?Received: ?11/03/2019 1555 ? [facility] ?Pathologist: ? Klaus Tinoco MD ? Specimen: ? ?APPENDIX, appendix ? Final Diagnosis (test b5ybfYAlPYIpk8wvEVLfzU code = 1490984152) FuZzEwMzNcZnRuYmpcdWMx YBeassBqBGjqg3CoY1OkRl AwMFxhbnNpXGRlZmxhbmcx LWAiKKR5rtNfSQSyYFxiWH ClOPtpJm9opDXsnTomVkIk LXVek0dcivJAzmgoeNs5n8 ewDWRaSmR2yLOuEUnuC0ea stQmmUDsPUQcMHc8nJ64IZ QnrZ7pvZUwQDogimAzEYuh syJthkAmGjr1FZPpM4brZM MkFQJvN5GtAA4dPQCxPle6 NOC8NJN0rQyea7O5vXKszS YvrMajCcSeJtJcDRBXh2Mt GYy6xGckI0WnOBEdAdL7oH QgUGFyYWdyYXBoIEZvbnQ7 bS19JRzugiA0wNDrt1Pww0 7ku648hK9ghHQlTOY6ZDZl WKXahMRpQGXaZOA4YFMxrY KgV5pcQCmcYZ1ykqofRJQ9 MFxtYXJndDcyMFxtYXJnYj QptGEoHPKreDeyYRpzp680 QOC3AdEeLC7gU2Non4A4hL 9maXRcZGVmdGFiNzIwXGZv cy7gnATbSXbqd7RzTUR0zu S2tUAppQTrJWHoKO09Tvjq i8ObTrqhEVY0WQHvqkWse2 Usy4ubJgYjbhPdZ8kdD1Np ZHJoZWFkXHBnYnJkcmZvb3 Sht3MzlOEvrHv7y4trKLHz MJBoyZckf2qaBGI8OYOyC0 K7fCKqd3lyPQrqGCEccRO0 odEjVZHhrUJpM7VvqI8aXZ pqLZ0boqr4c1mjOzOlMB8r nghcu3qoCSguLLTlFGC7An NzQXXqk3OdwglqMqBvs1Mc rAZhWBybU53pe567PQIhzz BcN7jlyQOnwphmnWSzfvhg MFxmczIwXHFsXHBsYWluXG GtSOMeQqWleMwckV9wQxIf ZnMyMFxwYXJccGFyZFxwbG FpblxmMFxmczIwXHBsYWlu WAYsJNNzRxRjCF3cYEGOMG 0TOXxiXMUEGWPHWUOAWM1D WTpccGFyXHFsXHBsYWluXG InRLEpZrTmlCrlyT5rBlEi NqBdRBGzTYIiMA7vUCIWXS LdIKBCJI5TUVYRRVrEMFuH FKgbICKCDC1UVYLABeNJR2 lUSVNccGFyXHBhciBNYXR0 hVZ7RAVsyZZqOHFGQMmoTL MmfBgjuI3hJwVzCuItUmtc SF5aQKRnM6xvqIUyIAZoWG NbF2tiQsSfmF2doXcuAKqt ZjFcZnMyMiBIYXJzaHdhcm XwDE6lAJiuj0QpKCNHKOOk Sb7cQC4dVYXhWER1DcVzKY BNXHBsYWluXGYxXGZzMjBc kVHovXpnrrNpVTilk9FiQ1 YyMjAwMFxhbnNpXGRlZmxh ukggFIVwUHY9oiJiIJPzWC igOLCxBZayLg3trRAztKng GbEwDVYos2vghoOMVQekPz EmX026RVYyVJvqo5bph4Rf ONWjoSHdx8I0RAWJehrydF q7n4xdQqKfPeD0oRTxOMii M4xecsXlnGOtQ0UkwPHqsR d3uLgbU49nh8C5HfsqZ4zt BRPxKMOyX7OyBV8kHAGzBe w9SXK5TVL2FCZhDHIgR8Iz WP3sKPEegFMpZOe9i4xkcQ rjZWBhWWX2s1ysWQpyecA1 TG7wdk4hqRh8c9rieuQuZR MwVFGpvUVZGUNpR0NasYde Dd9tzDl9tSlrAeejRHN3Gc w1BG8kvj67uzq4jRgfTTLh sdzpObE0HWytBGXihtzkHH e9ZIheBSGzzIX2BBFnvLBx V3UcDIKxEH0gmdc3ECT7QB utSJEhXgP3XWLcdESxCBEq mNqiNNkjg665IJT0QzIqOR 8gV7Nwf4Q9aP2qcLLyMOBf hQVpElEhYFHhvu4xbITiMA wwz4RxKER0ofG9eZCddQTg TXOpXV38Tozua4OeXyeyCB V8HRDyiuCye8Dhk9pkArVu bzKuP1nfT8DtJJVzVTGgPU UwSzFqdaLaf4Gvg8DcyCNr uFm5k6bbXQPsLKHblSdwz6 poVSN1FEIaY2V4fEWyu5ka BOpbTLVxnBJ6wqZ7ZBJnhQ NkD4ZwdI6fSYZrRR9fcya6 s5pwPUY9UOhbUNEsScB5kg C2ZTIwyIWeMLPllRugDGxr p280YPH4IhBkGQOfp1PpY1 CdwLosH28biGxnS04wSYTl nBowsM7odBfkzA5cEbOoFh MyNFxxbFxwbGFpblxmMVxm czIwXGxhbmcxMDMzXGhpY2 qnTvWtMKWovJkkBNrcl0Lc XGYxXGNmMlxmczIwXHBhci DCEInqhlSgjXFum79rBWat eSByZXZpZXdlZCBhbGwgc3 AyF0wsKW3rE3EgaTRjniQj wsBdRTrfAZLho4b8cITopO rve6KxiFYsBT39ahZpCSEi CWS9RRCry6asTX99ryzmXf XwqU08hxHpxiPsCBUjs8af Q2ywpEGal1Zfh8ZaolGsLC zvy7ArFR0pgFDbupsjvWI3 WWCvaGElqlHntnE6xUpnWW ZetE0wtE8kdIunlO9zRsEs ZiXpSHlfLE4iXSJxW4znuE SaAVJdCGAdE7hkPdXdxQ5w cPtaHvenmkS3ZUOwxk54 Clinical Information Acute abdomen (test code = 6686633527) Gross Description (test t8kekSYnFXVzrDLkZdUnPW code = 1496222202) MmPXDsq7lhFEHawWSjQgTv MzNcZnRuYmpcdWMxXGRlZm Sqs9kbr927xGGky7gjRBHx NrG3eRVqJYVsuKDwT592NQ LsCVzfy7jxz5YaNXIabSKh j9N5ZPWHjwiosHg2dCfsY2 1qd3W1WwwrU3anMVYjDVsj WWWjHRlzcBDlPXO5IGIoRG I3SZgfuoStmlC8DZihoNFx KhI3HAc2c6vzrUfcTRZaVC O5a0ubERlmfvTbJK0suh0b jNh4j8gzwqYgHCOfEUJxqD NICBKtT3FiuHycYv3jqUx1 kAeoAhfiXSE1Tkx0SM5jbc 78jpw4xAdcVUUmwjilPmI3 JIisQGJubjupVSc2CIfgZH PxmYAoPTFqoJDdO1NeKBjf OA5njmq2EiQbDJ8turqjOF bgVQFpLXG1YoZuKLEdn7Pj qinqXvCxsh3pms95KRA4b5 CifMegOUZ2FMD2RaWsRy4w mRTwUYAaFK8zSiRmzEPhEJ Cllo94zEnkHEugnmDxnI3w KhSyXUApqFDyUTRpUY8lzA XnBECdcN8mewkfWYAwPsFw ftmhAOMvvOrortZpVp1bmA leBCV3BQtjA5gnwP3jLnS6 YWlkD6wakO8dXHg6WLmmlK I3UENefE7xAG6heqlbs2vf MRB7CFhyUXAcjgO0coAkLZ CeyQNwP3FtpF35AaIhmXRk C6KviB8vFZjuJLXipvx5Je CwNd1vpGMxtJD6KAioBqhu YWdlXHBnbmNvbnRccGduZG VjXHBsYWluXHBsYWluXGYw WDQnAzXbv3YjGYCkw1elUt Ipb9ihiRy1DFqmnSzwgAIb blxmMFxmczIwXHBsYWluXG PoZQRkDhAwV2XlH1isNU1f QSBpcyByZWNlaXZlZCBpbi Crp3SkWWemffRmGVSxnXbk UMT2uOPqKNDoBLOkSGHrKZ 50XHBsYWluXGYxXGZzMjBc sOfqVIrmQQb3UrzqbJFfpd xmMVxmczIwIHMgbmFtZSwg VUggbnVtYmVyICJhcHBlbm RpeFxwbGFpblxmMVxmczIw YPR7BmXhEQtzODFnyDoxmV 5pQyUxDcQeBSKhEJ3wPKHj xaGng5WqGD0pZKFjwXativ 21GQ7yfwEifSbqx8OyZMSq cANkRRp8XTz7FjirE99szV 8whFPyK4RhQIiqKG25OTVr OCBjbSBpbiBkaWFtZXRlci lxt1m6rKAntKNnE6roWUR3 MCdag2aosA0bgGrtxSNpUP Pmc9I7zKIyNGPmSAWkTWPc XN7iqFalWVEgKTO1IWSoQN G7WZMjWIGfwYlbDSKPoWZf XPXfLW2txRaki7Qxj9XwGW jjv3BpOGNqwfF9tSRaWWC6 pPZwcRIgIKTgrtJjdEI8cS VudCBleHVkYXRlLiBUaGUg SNFkQM7eoFsxlCBkl9HaqF CruSajl8UktIsupiVmTHIe IHJldmVhbCBhIHBhdGVudC ZfbB3zslrmkvFoB3wrKcBx jb4nBGUvidLfqX62BWZvRG RaPfYniPykB10rpMImidqn FoQsH5ZwcAGfKH3bxiShNM dlLiAgVGhlIHdhbGwgdGhp Q4eeLZGdQZByvyjzdgOrlw 9cTYWqFQ6iHyTvW96cZDBv cnVwdHVyZSBzaXRlIGlzIG zle0TfvWxtmSMuvzTvZkjr BQlyRV2vOXSeILHjg01msL qtBE63H02hTWmtlwWiDZG3 jK8tRZ5mpxlqct0nGqXofv OgBU88TJSuqbEvd1JbxTua szQva0ntZ7gmuT1tpCWeRN Hsxo0efrXzDAX3tR7zxcpz aNldUZEttGIxkI0cEYFwkm RdTKN4nK6wSN8dsfnrasWe bmQgZGlzdGFsIHRpcCBhcm Hrn2QmaIb5qGPmGJgaLHRn LUEyLlxwYXJccGFyZFxwbG FpblxmMFxmczIwXHBsYWlu XGYxXGZzMjAgSnVsaWUgTW GMdZhoiwW4YKTNSIhsBFO8 Embedded Images (test code = 9178618051) [facility] GLUCOSE (AUTOMATED)2019-11-05 22:19:00 Test Item Value Reference Range Interpretation Comments POCT GLU (test code = 0418695537) 115 mg/dL 70-110 H Lab Interpretation (test code = Abnormal 91882-3) [facility] GLUCOSE (AUTOMATED)2019-11-05 18:23:00 Test Item Value Reference Range Interpretation Comments POCT GLU (test code = 2706270679) 197 mg/dL 70-110 H Lab Interpretation (test code = Abnormal 21504-1) [facility] GLUCOSE (AUTOMATED)2019-11-05 17:33:00 Test Item Value Reference Range Interpretation Comments POCT GLU (test code = 8996410078) 125 mg/dL 70-110 H Lab Interpretation (test code = Abnormal 47124-9) [facility] GLUCOSE (AUTOMATED)2019-11-05 13:28:00 Test Item Value Reference Range Interpretation Comments POCT GLU (test code = 3169976722) 130 mg/dL 70-110 H Lab Interpretation (test code = Abnormal 29647-7) [facility] METABOLIC PANEL (NA, K, CL, CO2, GLUCOSE, BUN, CREATININE, CA)2019-11-05 12:11:00 Test Item Value Reference Range Interpretation Comments NA (test code = 137 mmol/L 135-145 8117004315) K (test code = 3.6 mmol/L 3.5-5 4138769605) CL (test code = 100 mmol/L 98-108 8779329793) CO2 TOTAL (test code = 30 mmol/L 23-31 0387155931) AGAP (test code = 2-16 3582080816) BUN (test code = 14 mg/dL 7-23 3752449495) GLUCOSE (test code = 164 mg/dL 70-110 H 2615815315) CREATININE (test code = 0.81 mg/dL 0.6-1.25 8559546321) CALCIUM (test code = 8.6 mg/dL 8.6-10.6 4830360147) eGFR Calculation mL/min/1.73m2 (Non-) (test code = 5408088742) eGFR Calculation mL/min/1.73m2 () (test code = 6484482373) KATE (test code = KATE) Association of [...] tests). Lab Interpretation Abnormal (test code = 11466-4) [facility] WITH [id number] 11:39:00 Test Item Value Reference Range Interpretation Comments WBC (test code = See_Comment [Automated 0866-2) message] The sy stem which generated this result transmitted reference range : 4.20 - 10.70 10*3/?L. The reference range was not used to interpret this result as normal/abnormal . RBC (test code = See_Comment [Automated 905-8) message] The sy stem which generated this [...] RDW-SD (test code = 38.7 fL 38.5-51.6 96334-3) RDW-CV (test code = 13.0 % 12.1-15.4 788-0) PLT (test code = See_Comment [Automated 777-3) message] The sy stem which generated this result transmitted reference range : 150 - 328 10*3/ ?L. The reference r jevon was not used to interpret this result as normal/abnormal . MPV (test code = 11.5 fL 9.8-13 75077-5) NRBC/100 WBC (test See_Comment [Automat ed code = 8412408802) message] The system which generated this result transmitted reference range : 0.0 - 10.0 /100 WBCs. The refer ence range was not u sed to interpret th is result as normal/abnormal . NRBC x10^3 (test code <0.01 See_Comment [Auto mated = 4138893741) message] The s ystem which generated this result transmitted reference range : 10*3/?L. The reference range was not used to interpret this result as normal/abnormal . GRAN MAT (NEUT) % 83.5 % (test code = 770-8) IMM GRAN % (test code 0.30 % = 6122419973) LYMPH % (test code = 9.3 % 736-9) MONO % (test code = 5.7 % 5905-5) EOS % (test code = 1.1 % 713-8) BASO % (test code = 0.1 % 706-2) GRAN MAT x10^3(ANC) 7.74 10*3/uL 1.99-6.95 H (test code = 1519710339) IMM GRAN x10^3 (test 0.03 10*3/uL 0-0.06 code = 6104929778) LYMPH x10^3 (test code 0.86 10*3/uL 1.09-3.23 L = 731-0) MONO x10^3 (test code 0.53 10*3/uL 0.36-1.02 = 742-7) EOS x10^3 (test code = 0.10 10*3/uL 0.06-0.53 711-2) BASO x10^3 (test code <0.03 0.01-0.09 = 704-7) Lab Interpretation Abnormal (test code = 26841-5) [facility] GLUCOSE (AUTOMATED)2019-11-05 10:22:00 Test Item Value Reference Range Interpretation Comments POCT GLU (test code = 0642942962) 149 mg/dL 70-110 H Lab Interpretation (test code = Abnormal 60916-1) [facility] GLUCOSE (AUTOMATED)2019-11-05 06:15:00 Test Item Value Reference Range Interpretation Comments POCT GLU (test code = 3574837441) 204 mg/dL 70-110 H Lab Interpretation (test code = Abnormal 79051-0) [facility] GLUCOSE (AUTOMATED)2019-11-05 01:48:00 Test Item Value Reference Range Interpretation Comments POCT GLU (test code = 2973764119) 227 mg/dL 70-110 H Lab Interpretation (test code = Abnormal 50785-6) [facility] GLUCOSE (AUTOMATED)2019-11-04 22:30:00 Test Item Value Reference Range Interpretation Comments POCT GLU (test code = 9019339820) 132 mg/dL 70-110 H Lab Interpretation (test code = Abnormal 73090-6) [facility] GLUCOSE (AUTOMATED)2019-11-04 17:24:00 Test Item Value Reference Range Interpretation Comments POCT GLU (test code = 1133016867) 213 mg/dL 70-110 H Lab Interpretation (test code = Abnormal 69492-0) [facility] GLUCOSE (AUTOMATED)2019-11-04 13:31:00 Test Item Value Reference Range Interpretation Comments POCT GLU (test code = 3471479551) 203 mg/dL 70-110 H Lab Interpretation (test code = Abnormal 34667-9) [facility] GLUCOSE (AUTOMATED)2019-11-04 12:03:00 Test Item Value Reference Range Interpretation Comments POCT GLU (test code = 1158109156) 213 mg/dL 70-110 H Lab Interpretation (test code = Abnormal 07970-2) [facility]A1C[facility]2019-11-03 23:50:00 Test Item Value Reference [...] Indicated Lab Interpretation Abnormal (test code = 76375-9) [facility] GLUCOSE (AUTOMATED)2019-11-03 23:28:00 Test Item Value Reference Range Interpretation Comments POCT GLU (test code = 6407439814) 273 mg/dL 70-110 H Lab Interpretation (test code = Abnormal 45666-2) [facility] PEL[facility] W [id number] 18:01:52CT Abdomen and Pelvis with intravenous contrast. [...] Rhoades in the emergency room at 12:00. [facility], Radiant Results Inft User - 11/03/2019 [...] Rhoades in the emergency room at 12:00.[facility] [id number] 16:23:00 Test Item Value Reference Range Interpretation Comments APPEARANCE (test code = Clear Clear 7981584635) COLOR (test code = Yellow Yellow 6254148993) PH (test code = 4.8-8.0 6113255638) SP GRAVITY (test code = 1.003-1.030 3700189247) GLU U QUAL (test code = 500 mg/dL Normal A 9700865241) BLOOD (test code = Negative Negative 8995587715) KETONES (test code = Negative Negative 2799654968) PROTEIN (test code = Negative Negative 2887-8) UROBILIN (test code = Normal Normal 3796702076) BILIRUBIN (test code = Negative Negative 0605579312) NITRITE (test code = Negative Negative 7383848079) LEUK BIANCA (test code = Negative Negative 1182900188) RBC/HPF (test code = See_Comment [Autom ated message] 8327391710) The system [employer] generated this result transmit yelena reference range : 0 - 3 HPF. The refe rence range was not u sed to interpret th is result as normal/abnormal . WBC/HPF (test code = See_Comment [Autom ated message] 9586143379) The system [employer] generated this result transmit yelena reference range : 0 - 5 HPF. The refe rence range was not u sed to interpret th is result as normal/abnormal . BACTERIA (test code = Negative Negative 4985477277) MUCOUS (test code = Slight Negative LPF A 5534706685) SQ EPITH (test code = <1 HPF 7104308840) Lab Interpretation (test Abnormal code = 75193-5) [facility] 16:04:00 Test Item Value Reference Range Interpretation Comments NA (test code = 137 mmol/L 135-145 8900859605) K (test code = 4.3 mmol/L 3.5-5 1146434406) CL (test code = 98 mmol/L 98-108 3738946479) CO2 TOTAL (test code = 28 mmol/L 23-31 2814509082) AGAP (test code = 2-16 0708536562) BUN (test code = 11 mg/dL 7-23 8782578778) GLUCOSE (test code = 356 mg/dL 70-110 H 6270343205) CREATININE (test code = 1.01 mg/dL 0.6-1.25 1919591087) TOTAL BILI (test code = 0.9 mg/dL 0.1-1.3 2548270921) CALCIUM (test code = 9.1 mg/dL 8.6-10.6 8489123518) T PROTEIN (test code = 7.5 g/dL 6.3-8.2 7610917573) ALBUMIN (test code = 4.7 g/dL 3.5-5 4426227427) ALK PHOS (test code = 73 U/L 34-122 9929112357) ALTv (test code = 38 U/L 5-50 1742-6) AST(SGOT) (test code = 25 U/L 13-40 7640493822) eGFR Calculation mL/min/1.73m2 (Non-) (test code = 7512338889) eGFR Calculation mL/min/1.73m2 () (test code = 6531242387) KATE (test code = KATE) Association of [...] tests). Lab Interpretation Abnormal (test code = 15123-0) [facility] 16:03:00 Test Item Value Reference Range Interpretation Comments LIPASE (test code = 8973753010) 48 U/L 0-220 Lab Interpretation (test code = Normal 16412-5) [facility] WITH [id number] 15:51:00 Test Item Value Reference Range Interpretation Comments WBC (test code = See_Comment H [Automated 0690-2) message] The system which generated this result [...] (test code = 37.8 fL 38.5-51.6 L 95060-3) RDW-CV (test code = 12.7 % 12.1-15.4 788-0) PLT (test code = See_Comment [Automated 777-3) message] The system which generated this result transmit yelena reference range : 150 - 328 10*3/ ?L. The reference range was not u sed to interpret th is result as normal/abnormal . MPV (test code = 10.9 fL 9.8-13 42880-4) NRBC/100 WBC (test See_Comment [Automat ed code = 0961791148) message] The system which generated this result transmit yelena reference range : 0.0 - 10.0 /100 WBCs. The reference range was not used to interpret this result as normal/abnormal . NRBC x10^3 (test code <0.01 See_Comment [Auto mated = 0777529050) message] The system which generated this result transmit yelena reference range : 10*3/?L. The reference range was not used to interpret this result as normal/abnormal . GRAN MAT (NEUT) % 91.5 % (test code = 770-8) IMM GRAN % (test code 0.50 % = [id number]) LYMPH % (test code = 3.9 % 736-9) MONO % (test code = 3.8 % 5905-5) EOS % (test code = 0.1 % 713-8) BASO % (test code = 0.2 % 706-2) GRAN MAT x10^3(ANC) 12.89 10*3/uL 1.99-6.95 H (test code = [id number]) IMM GRAN x10^3 (test 0.07 10*3/uL 0-0.06 H code = [id number]) LYMPH x10^3 (test code 0.55 10*3/uL 1.09-3.23 L = 731-0) MONO x10^3 (test code 0.54 10*3/uL 0.36-1.02 = 742-7) EOS x10^3 (test code = <0.03 0.06-0.53 L 711-2) BASO x10^3 (test code 0.03 10*3/uL 0.01-0.09 = 704-7) Lab Interpretation Abnormal (test code = 58660-5) [facility] [place]"
[2022-06-08] MEDS ORDERED: KETOROLAC 30 MG/ML INJ ONE (21:04)
[2022-06-08] MEDS ORDERED: DIPHENHYDRAMINE 50 MG/ML VIAL ONE (21:04)
[2022-06-08] MEDS ORDERED: PROMETHAZINE INJ 25 MG/ML AMP ONE (21:04)
[2022-06-08] MEDS ORDERED: dexAMETHasone 10 MG/ML VIAL ONE (21:04)
[2022-06-08] MEDS ORDERED: NA CHLORIDE 0.9% 1,000 ML ONE (21:39)
[2022-06-08] MEDS ORDERED: HALOPERIDOL LACT 5 MG/ML INJ ONE (22:12)
--- NOTE | 2022-06-08 22:24 | EDPHYS ---
Physician Documentation [facility] Name: Chente Minaya Age: 51 yrs Sex: Male : 1970 Arrival Date: 06/08/2022 Time: 20:16 Bed 19 Private MD: ED Physician Mary Cabrales HPI: 06/08 20:40 This 51 yrs old Male presents to ER via Ambulatory with complaints of Headache. sd2 20:40 51-year-old male presents with chief complaint of left-sided headache. He has a history sd2 of migraine headaches which he has been seen for numerous times at our facility. He reports the headache started around 9 AM this morning after he smelled a ladies perfume at the store. He reports that headache is mostly left-sided with associated photophobia, phonophobia and nausea. He denies any fever, neck stiffness or vomiting. He reports this is consistent with his prior migraines in the past. He is currently being seen by a neurologist and is awaiting the results of his recent MRI. He ran out of his Fioricet and Phenergan that he had at home for his headaches. He has not taken any [id number] medications for his symptoms. He denies any other acute complaints at this time.. Historical: - Allergies: 20:24 Bactrim; hb 20:24 mushroom; hb 20:24 Mustard; hb 20:24 PENICILLINS; hb 20:24 Reglan; hb 20:24 Sulfa (Sulfonamide Antibiotics); hb 20:24 surgical steel; hb 20:24 tramadol; hb 20:24 Tylenol-Codeine #3; hb 20:24 Tylenol-Codeine #4; hb - PMHx: 20:24 diabetes mellitus; hb - Immunization history:: Adult Immunizations up to date. - Social history:: Smoking status: Patient denies any tobacco usage or history of. ROS: 20:40 Constitutional: Negative for fever, chills, and weight loss, Eyes: Negative for injury, sd2 pain, redness, and discharge. Positive for photophobia ENT: Negative for injury, pain, and discharge. Positive for phonophobia. Cardiovascular: Negative for chest pain, palpitations, and edema, Respiratory: Negative for shortness of breath, cough, wheezing. Abdomen/GI: Negative for abdominal pain, vomiting, diarrhea. Positive for nausea. MS/Extremity: Negative for injury and deformity, Skin: Negative for injury, rash, and discoloration, Neuro: Positive for headache, negative for numbness and tingling. Exam: 20:40 Constitutional: This is a well developed, well nourished patient who is awake, alert, sd2 and in no acute distress. Head/Face: Normocephalic, atraumatic. Eyes: EOMI, normal conjunctiva bilaterally Chest/axilla: Normal chest wall appearance and motion. Nontender with no deformity. Cardiovascular: Regular rate and rhythm with a normal S1 and S2. No gallops, murmurs, or rubs. 2+ distal pulses. Respiratory: Lungs have equal breath sounds bilaterally, clear to auscultation and percussion. No rales, rhonchi or wheezes noted. No increased work of breathing, no retractions or nasal flaring. Abdomen/GI: Soft, non-tender, with normal bowel sounds. No guarding or rebound. No evidence of tenderness throughout. Skin: Warm, dry with normal turgor. Normal color with no rashes, no lesions, and no evidence of cellulitis. MS/ Extremity: Pulses equal, no cyanosis. Neurovascular intact. Full, normal range of motion. Ambulatory without difficulty. Neuro: Awake and alert, GCS 15, oriented to person, place, time, and situation. Cranial nerves II-XII grossly intact. Motor strength 5/5 in all extremities. Sensory grossly intact. Cerebellar exam normal. Normal gait. Psych: Awake, alert, with orientation to person, place and time. Behavior, mood, and affect are within normal limits. Vital Signs: 20:22 BP 132 / 85; Pulse 106; Resp 20; Temp 98.5; Pulse Ox 100% on R/A; Weight 129.27 kg; hb Height 6 ft. 2 in. (187.96 cm); Pain 8/10; 21:00 BP 132 / 85; Pulse 105; Resp 18 S; Pulse Ox 100% on R/A; ha1 21:58 BP 117 / 84; Pulse 86; Resp 18 S; Pulse Ox 100% on R/A; ha1 20:22 Body Mass Index 36.59 (129.27 kg, 187.96 cm) hb MDM: 20:25 Patient medically screened. sd2 20:40 Differential diagnosis: Differential diagnosis includes but is not limited to: Tension sd2 headache, migraine headache, intracranial hemorrhage, dehydration, electrolyte abnormality, musculoskeletal, meningitis among others. Data reviewed: vital signs, nurses notes, old medical records. 22:21 ED course: Pt received headache cocktail with continued pain. Haldol was ordered. Less sd2 than 15 minutes after Haldol was given, pt has asked to leave the ER. He did not stay to speak with me in the ER or discuss further his treatment plan at this time. He did ambulate with a steady gait out of the ER. There were no focal neurologic deficits on exam. . Administered Medications: 21:12 Drug: Ketorolac 15 mg Route: IVP; Site: right antecubital; ha1 22:25 Follow up: Response: No adverse reaction ha1 21:12 Drug: Decadron - Dexamethasone 10 mg Route: IVP; Site: right antecubital; ha1 22:25 Follow up: Response: No adverse reaction ha1 21:12 Drug: Phenergan (promethazine) 12.5 mg Route: IVP; Site: right antecubital; ha1 22:25 Follow up: Response: No adverse reaction ha1 21:12 Drug: Benadryl (diphenhydrAMINE) 25 mg Route: IVP; Site: right antecubital; ha1 22:24 Follow up: Response: No adverse reaction ha1 21:33 Drug: NS 0.9% 1000 ml Route: IV; Rate: 1 bolus; Site: right antecubital; ha1 22:24 Follow up: Response: No adverse reaction; IV Status: Completed infusion; IV Intake: ha1 1000ml 22:07 Drug: HALdol (haloperidol) 5 mg Route: IVP; Site: right antecubital; ha1 22:24 Follow up: Response: No adverse reaction; Pain is unchanged, physician notified ha1 Disposition Summary: 06/08/22 22:23 Discharge Ordered Location: Home sd2 Problem: an acute exacerbation sd2 Symptoms: are unchanged sd2 Condition: Stable sd2 Diagnosis - Migraine, unspecified, not intractable, without status migrainosus sd2 Followup: sd2 - With: Private Physician - When: 2 - 3 days - Reason: Recheck today's complaints, Continuance of care, Re-evaluation by your physician Discharge Instructions: - Discharge Summary Sheet sd2 - Migraine Headache sd2 - Recurrent Migraine Headache sd2 Forms: - Medication Reconciliation Form sd2 - Thank You Letter sd2 - Antibiotic Education sd2 - Prescription Opioid Use sd2 Signatures: Kalee Hudson RN RN Mary Cabrales MD MD sd2 Jayda Villalta RN RN ha1
--- NOTE | 2022-06-08 22:24 | ER ---
Nurse's Notes [facility] Name: Chente Minaya Age: 51 yrs Sex: Male : 1970 Arrival Date: 06/08/2022 Time: 20:16 Bed 19 Private MD: Diagnosis: Migraine, unspecified, not intractable, without status migrainosus Presentation: 06/08 20:22 Chief complaint: Left sided headache since 0900 today. + nausea, + photophobia. Hx of hb migraines. Coronavirus screen: At this time, the client does not indicate any symptoms associated with coronavirus-19. Ebola Screen: No symptoms or risks identified at this time. Risk Assessment: Do you want to hurt yourself or someone else? Patient reports no desire to harm self or others. Onset of symptoms was June 08, 2022. 20:22 Method Of Arrival: Ambulatory hb 20:22 Acuity: GILDARDO 3 hb 20:28 Initial Sepsis Screen: Does the patient meet any 2 criteria? No. Patient's initial ha1 sepsis screen is negative. Does the patient have a suspected source of infection? No. Patient's initial sepsis screen is negative. Triage Assessment: 20:28 Headache History: The patient has had previous headaches and this one is similar to ha1 previous episodes. General: Appears uncomfortable, Behavior is calm, cooperative. Pain: Pain currently is 10 out of 10 on a pain scale. Pain began gradually, Also complains of photophobia. Neuro: Level of Consciousness is awake, alert, obeys commands, Oriented to person, place, time, situation. Historical: - Allergies: 20:24 Bactrim; hb 20:24 mushroom; hb 20:24 Mustard; hb 20:24 PENICILLINS; hb 20:24 Reglan; hb 20:24 Sulfa (Sulfonamide Antibiotics); hb 20:24 surgical steel; hb 20:24 tramadol; hb 20:24 Tylenol-Codeine #3; hb 20:24 Tylenol-Codeine #4; hb - PMHx: 20:24 diabetes mellitus; hb - Immunization history:: Adult Immunizations up to date. - Social history:: Smoking status: Patient denies any tobacco usage or history of. Screenin:27 Abuse screen: Denies threats or abuse. Denies injuries from another. Nutritional kd3 screening: No deficits noted. Tuberculosis screening: No symptoms or risk factors identified. Fall Risk None identified. Assessment: 21:00 General: Appears uncomfortable, Behavior is calm, cooperative. Pain: Complains of pain ha1 in head Pain does not radiate. Pain currently is 10 out of 10 on a pain scale. Is continuous, Alleviated by medications. Neuro: Level of Consciousness is awake, alert, obeys commands, Oriented to person, place, time, situation. Neuro: Reports history of migraines . Cardiovascular: Patient's skin is warm and dry. Respiratory: Airway is patent Trachea midline Respiratory effort is even, unlabored, Respiratory pattern is regular, symmetrical. 21:58 Reassessment: Patient and/or family updated on plan of care and expected duration. Pain ha1 level reassessed. Patient is alert, oriented x 3, equal unlabored respirations, skin warm/dry/pink. notified care provider. pain 10/10 Patient states symptoms have not improved. 22:20 Reassessment: Patient requests water, upon entering the room to give water, patient ke1 states" I want cuff of my hand , remove all those cord, I am going home" , patient gets more nervous when nurse asks to elaborate more on actual feelings , patient is closed to communication and asks nurse to take out IV otherwise he will remove it himself .Nurse removes IV per patient request and ask patient to wait for paperwork. 22:26 Reassessment: Patient and/or family updated on plan of care and expected duration. Pain ha1 level reassessed. pt. wants to leave and does not want to continue care. notified care provider. Vital Signs: 20:22 BP 132 / 85; Pulse 106; Resp 20; Temp 98.5; Pulse Ox 100% on R/A; Weight 129.27 kg; hb Height 6 ft. 2 in. (187.96 cm); Pain 8/10; 21:00 BP 132 / 85; Pulse 105; Resp 18 S; Pulse Ox 100% on R/A; ha1 21:58 BP 117 / 84; Pulse 86; Resp 18 S; Pulse Ox 100% on R/A; ha1 20:22 Body Mass Index 36.59 (129.27 kg, 187.96 cm) hb ED Course: 20:16 Patient arrived in ED. mr 20:19 Mary Cabrales MD is Attending Physician. sd2 20:24 Triage completed. hb 20:24 Arm band placed on. hb 20:45 Jayda Villalta, CORA is Primary Nurse. ha1 21:12 Inserted saline lock: 20 gauge in right antecubital area, using aseptic technique. ha1 22:27 Patient has correct armband on for positive identification. kd3 22:27 No provider procedures requiring assistance completed. kd3 Administered Medications: 21:12 Drug: Ketorolac 15 mg Route: IVP; Site: right antecubital; ha1 22:25 Follow up: Response: No adverse reaction ha1 21:12 Drug: Decadron - Dexamethasone 10 mg Route: IVP; Site: right antecubital; ha1 22:25 Follow up: Response: No adverse reaction ha1 21:12 Drug: Phenergan (promethazine) 12.5 mg Route: IVP; Site: right antecubital; ha1 22:25 Follow up: Response: No adverse reaction ha1 21:12 Drug: Benadryl (diphenhydrAMINE) 25 mg Route: IVP; Site: right antecubital; ha1 22:24 Follow up: Response: No adverse reaction ha1 21:33 Drug: NS 0.9% 1000 ml Route: IV; Rate: 1 bolus; Site: right antecubital; ha1 22:24 Follow up: Response: No adverse reaction; IV Status: Completed infusion; IV Intake: ha1 1000ml 22:07 Drug: HALdol (haloperidol) 5 mg Route: IVP; Site: right antecubital; ha1 22:24 Follow up: Response: No adverse reaction; Pain is unchanged, physician notified ha1 Medication: 22:28 VIS not applicable for this client. kd3 Intake: 22:24 IV: 1000ml; Total: 1000ml. ha1 Outcome: 22:23 Discharge ordered by . sd2 22:28 Discharged to home ambulatory. kd3 22:28 Condition: stable 22:28 Discharge instructions given to patient, Instructed on discharge instructions, follow up and referral plans. Demonstrated understanding of instructions, follow-up care, Prescriptions given X 22:28 Patient left the ED. kd3 22:28 Discharged to [facility] Signatures: Yoselin Dc Heather, RN RN Emilee Larson RN RN [facility] Luann Harvey RN RN ke1 Mary Cabrales MD MD sd2 Jayda Villalta, CORA RN ha1
[2022-06-10 08:55] VITALS: TEMP 98.5; O2SAT 100
[2022-06-10 09:00] VITALS: BP 117/84
== END 2022-06-08 22:28 | disposition home or self-care (01) ==
LOC: ER 20:11
DX: G43.009 Migraine without aura, not intractable, without status migrainosus (principal); Z88.1 Allergy status to other antibiotic agents; Z88.2 Allergy status to sulfonamides; Z88.5 Allergy status to narcotic agent; Z88.8 Allergy status to other drugs, medicaments and biological substances; Z91.018 Allergy to other foods
CPT/HCPCS: 96361 ×2; 96374 ×2; 96375 ×5; 99283 ×2; J1630; J2550; J1200; J1100; J7030

== ENCOUNTER 2022-08-01 15:28 | Emergency (ER) | payer OTHER ==
--- OUTSIDE RECORDS SUMMARY | 2022-08-01 15:34 | XMS REPORT | Continuity of Care Document ---
:1970 Author Organization [facility] t Address [address] [place] [address] Care Team Providers Name Role Phone Pcp, Patient Does Not Have A Primary Care Physician +[id number] YADIEL HAQ Attending Clinician Unavailable Yadiel Haq MD Attending Clinician DAVID NOVOA Attending Clinician Unavailable ALEXIS DAWN Attending Clinician Unavailable Alexis Dawn MD Attending Clinician STEHPANIE ONEAL Attending Clinician Unavailable Stephanie Adamson Attending Clinician Doctor Unassigned, [place] Attending Clinician Unavailable SILVINA SUN Attending Clinician Unavailable Norberto Bernal MD Attending Clinician NORBERTO BERNAL Attending Clinician Unavailable NORBERTO BERNAL Attending Clinician Unavailable Yazmin Ashby Attending Clinician Yazmin APPLE Attending Clinician Unavailable Hortensia Nicolas Attending Clinician Ervin Rhoades MD Attending Clinician Luis Arshad MD Attending Clinician LUIS ARSHAD Attending Clinician Unavailable STEPHANIE ONEAL Admitting Clinician Unavailable Luis Arshad MD Admitting Clinician LUIS ARSHAD Admitting Clinician Unavailable Payers Payer Name Policy Type Policy Number Effective Date Expiration Date [employer]firio [employer] [id number] 2021 [employer]EE-[employer] 00:00:00 Problems Condition Condition Condition Status Onset Resolution Last Treating Co mments Source Name Details Category Date Date Treatment Clinician Date Abdominal Abdominal Disease Active Uni vers pain pain 2-20 ity of 00:00: [place] 00 Medical Branch Obesity Obesity Disease Active Univers (BMI [...] or of 50 or Branch higher higher Morbid Morbid Disease Active 2015-09 Univers obesity obesity 1-29 [place] of with body [place] mass index mass index 00 Me dical of of Branch 40.0-49.9 40.0-49.9 Allergies, Adverse Reactions, Alerts Allergy Allergy Status Severity Reaction(s) Onset Inactive Treating Comm ents Source Name Type Date Date Clinician METOCLOP DRUG Active Other-Cmnt 2021-09 Univ ers RAMIDE INGREDI 0-28 ity of 00:00: [place] 00 Medical Branch Metoclop Propensi Active Other - See 2021-09 U nivers ramide ty to comments 0-28 ity of adverse 00:00: [place] reaction 00 Medical s Branch METFORMI DRUG Active Diarrhea 2021-09 Univer s N INGREDI 0-22 ity of 00:00: [place] 00 Medical Branch Metformi Drug Active Diarrhea 2021-09 Univer s n Allergy 0-22 ity of 00:00: [place] 00 Medical Branch SULFA Drug Active Hives Univers (SULFONA Class 1-21 ity of MIDE 00:00: [place] ANTIBIOT 00 Medical ICS) Branch ACETAMIN DRUG Active Hives Univers OPHEN-CO 1-21 ity of DEINE 00:00: [place] 00 Medical Branch Sulfa Propensi Active Hives Univers (Sulfona ty to 1-21 ity of mide adverse 00:00: [place] Antibiot reaction 00 Medica l ics) s Branch Sulfa Propensi Active Hives 2017-0 Univers (Sulfona ty to 1-21 ity of [...] ity of 00:00: [place] 00 Medical Branch Penicill Propensi Active Hives Univer s ins ty to 8-10 ity of adverse 00:00: [place] reaction 00 Medical s Branch Sulfa Propensi Active Hives Univers Dyne ty to 8-10 ity of adverse 00:00: [place] reaction 00 Medical s Branch Social History Social Habit Start Date Stop Date Quantity Comments Source History of Current smoker University of tobacco use [facility] Exposure to 2022-07-02 2022-07-12 Not sure University SARS-CoV-2 00:00:00 20:23:00 [facility] (event) Branch Alcohol intake 2022-07-12 2022-07-12 Current drinker Unive rsity of 00:00:00 00:00:00 of alcohol [facility] (finding) Branch History SDOH 2019-11-04 2019-11-04 5 University o f Financial 00:00:00 00:00:00 [facility] Tobacco use and 2019-11-03 2019-11-03 Smokeless tobacco Un iversity of exposure 00:00:00 00:00:00 non-user [facility] Sex Ass[birth year] At [birth year] Universit y of 00:00:00 00:00:00 [facility] Smoking Status Start Date Stop Date Source Ex-smoker 2019-11-03 00:00:00 2019-11-03 00:00:00 [facility] Medications Ordered Filled Start Stop Current Ordering Indication Dosage Frequency Signature Comments Components Source Medication Medication Date Date Medication? Clinician (SIG) Name Name ketorolac 2021-09 No 30mg 30 mg, Unive rs (TORADOL) 0- 10- Slow IV ity of injection 03:15: 02:09 Push, [place] 30 mg 00 :00 ONCE, 1 Medical dose, On Branch 07/12/22 at 2215, Routine FENTanyl PF 2021-09 No 50ug 50 mcg, Un grabiel (SUBLIMAZE 0-13 07- Intravenou it y of (PF)) 03:00: 02:09 s, ONCE, 1 [place] injection 00 :00 dose, On Medica l 50 mcg Fri Branch 07/12/22 at 2200, Routine NaCl 0.9% 2021-09 No 1000mL at 999 Uni vers (NS) bolus 0-29 10-29 mL/hr, ity of infusion 02:15: 02:40 1,000 mL, [place]ie as 1,000 mL 00 :00 IV Medical Infusion, Branch ONCE, 1 dose, On 07/12/22 at 2115, STAT ketorolac 2021-09 No 30mg 30 mg, Unive rs (TORADOL) 0- Slow IV ity of injection 03:30: 02:44 Push, [place] 30 mg 00 :00 ONCE, 1 Medical dose, On Branch 07/06/22 at 2230, Routine NaCl 0.9% 2021-09- No 500mL at 999 Univ ers (NS) bolus 0-23 10-23 mL/hr, 500 it y of infusion 02:30: 03:17 mL, IV [place] 500 mL 00 :00 Infusion, Medical ONCE, 1 Branch dose, On 07/06/22 at 2130, STAT metoclopram 2021-09 No 10mg 10 mg, Uni vers kevin HCl 0-07 07- Slow IV ity of (REGLAN) 02:30: 02:45 Push, [place] injection 00 :00 ONCE, 1 Medical 10 mg dose, On Branch 07/06/22 at 2130, MANDEEP diphenhydrA 2021-09 No 25mg 25 mg, Uni vers MINE 0- 10-23 Slow IV ity of (BENADRYL) 02:30: 02:43 Push, [place] injection 00 :00 ONCE, 1 Medical 25 mg dose, On Branch 07/06/22 at 2130, STAT butorphanol 2021-09- No 2mg 2 mg, Univ ers (STADOL) 007-07 Intramuscu ity of injection 2 02:30: 02:20 lar, ONCE, [place] mg 00 :00 1 dose, On Medical Sat Branch 07/06/22 at 2130, Routine insulin 2021-09 Yes 30U inject 30 Unive rs detemir 0-22 Units ity of (LEVEMIR 19:49: under the [place] U-100 26 skin 2 Medical INSULIN SC) (two) Branch times daily. insulin 2021-09 Yes 30U inject 30 Unive rs detemir 0-22 Units ity of (LEVEMIR 19:49: [place] the [place] U-100 26 skin 2 Medical INSULIN SC) (two) Branch times daily. NaCl 0.9% 2021-09- No 1000mL at 999 Uni vers (NS) bolus 0-03 24-07 mL/hr, ity of infusion 18:15: 18:52 1,000 mL, [place] 1,000 mL 00 :00 IV Medical Infusion, Branch ONCE, 1 dose, On 06/21/22 at 1315, STAT ondansetron 2021-09- No 4mg 4 mg, Slow Univers (ZOFRAN 0-03 24- IV Push, ity of (PF)) 17:15: 17:19 ONCE, 1 [place] injection 4 00 :00 dose, On Medi kyrie mg Fri Branch 06/21/22 at 1215, MANDEEP ketorolac 2021-09- No 30mg 30 mg, Unive rs (TORADOL) 0-07 10-07 Intramuscu ity of injection 17:15: 17:20 lar, ONCE, [place] 30 mg 00 :00 1 dose, On Medical Fri Branch 06/21/22 at 1215, MANEDEP divalproex 2020-0 Yes [id number] 250mg Take 1 Univers ER 250 mg 8-10 tablet by ity o f 24 hr 00:00: mouth 2 [place] tablet 00 (two) Medical times Branch daily. divalproex 2020-0 Yes [id number] 250mg Take 1 Univers ER 250 mg 8-10 tablet by ity o f 24 hr 00:00: mouth 2 [place] tablet 00 (two) Medical times Branch daily. divalproex 2020-0 Yes [id number] 250mg Take 1 Univers ER 250 mg 8-10 tablet by ity o f 24 hr 00:00: mouth 2 [place] tablet 00 (two) Medical times Branch daily. divalproex 2020-0 Yes [id number] 250mg Take 1 Univers ER 250 mg 8-10 tablet by ity o f 24 hr 00:00: mouth 2 [place] tablet 00 (two) Medical times Branch daily. divalproex 2020-0 Yes [id number] 250mg Take 1 Univers ER 250 mg 8-10 tablet by ity o f 24 hr 00:00: mouth 2 [place] tablet 00 (two) Medical times Branch daily. divalproex 2020-0 Yes [id number] 250mg Take 1 Univers ER 250 mg 8-10 tablet by ity o f 24 hr 00:00: mouth 2 [place] tablet 00 (two) Medical times Branch daily. water for 2020-0 Yes PRN, Univers irrigation 04-07 Starting ity o f irrigation 03:19: Angelina [place] solution 00 04/06/20 at Medic al 221, Branch Until Discontinu ed, Routine, Intra-op simethicone 2020-0 Yes PRN, Univer s (GAS RELIEF 04-07 Starting ity of (SIMETHICON 03:19: Angelina [place] E)) 40 00 04/06/20 at Medical mg/0.6 mL 2218, Branch drops Until Discontinu ed, Routine, Intra-op glucagon 2019-0 2020- No 1mg 1 mg, Univers (GLUCAGEN 04-07 Intravenou ity of DIAGNOSTIC 02:45: 01:56 s, ONCE, 1 [place] KIT) 00 :00 dose, Angelina Medical injection 1 04/06/20 at Br anch mg 2144, Routine glucagon 2019-0 2020- No 1mg 1 mg, Univers (GLUCAGEN 04-07 Intravenou ity of DIAGNOSTIC 01:45: 00:47 s, ONCE, 1 [place] KIT) 00 :00 dose, Angelina Medical injection 1 04/06/20 at Br anch mg 2044, Routine HYDROcodone 2019-0 2020- No 1{tbl} 1 tablet, Univers -acetaminop 02-19-07 Oral, ity of hen (NORCO 01:15: 00:11 ONCE, 1 [place] as 5) 5-325 mg 00 :00 dose, Sat Med ical tablet 1 02/19/20 at Branch tablet 2014, MANDEEP NaCl 0.9% 2019-0 2020- No 1000mL at 999 Uni vers (NS) bolus 02-18-06 mL/hr, ity of infusion 23:00: 23:28 1,000 mL, [place] as 1,000 mL 00 :00 IV Medical Infusion, [place] ONCE, 1 dose, 02/19/20 at 1800, STAT morpHINE 2019-0 2020- No 4mg 4 mg, Slow Un grabiel injection 4 02-18 IV Push, ity of mg 23:00: 22:01 ONCE, 1 [place] 00 :00 dose, Sat Medical 02/19/20 at Branch 1800, STAT insulin 2019-0 2020- No 10U 10 Units, Univ ers regular 02-18 Subcutaneo ity o f human 22:45: 21:54 us, ONCE, [place] (HUMULIN R) 00 :00 1 dose, Medic al injection 02/19/20 Bran ch 10 Units at 1745, STAT NaCl 0.9% 2019-0 2020- No 1000mL at 999 Uni vers (NS) bolus 02-18- mL/hr, ity of infusion 21:45: 23:27 1,000 mL, [place] 1,000 mL 00 :00 IV Medical Infusion, [place] ONCE, 1 dose, 02/19/20 at 1645, STAT [...] Sat Branch 02/19/20 at 1645, STAT clindamycin 2020-0 2020- No 900mg 900 mg, IV Univers in 5 % 02-18- Piggyback, ity of dextrose 21:45: 21:21 ONCE, 1 [place] (CLEOCIN) 00 :00 dose, Sat Medic al 900 mg/50 02/19/20 at [facility] h mL IV 1645, 50 piggyback mL
Reas RTU 900 mg on for Anti-Infec tive: Documented Infection< br>Documen yelena Infection Site: Skin / Soft Tissue
Duration of Therapy: Other (see Comments)< br>Restric yelena use approved by: [employer] PROVIDER acetaminoph 2020- No 1000mg 1,000 mg, Univers en 02-18 Oral, ity of (TYLENOL) 21:30: 20:30 ONCE, 1 [place] tablet 00 :00 dose, Sat Medical 1,000 mg 02/19/20 at Branch 1630, MANDEEP traMADol 50 2019-0 Yes [id number] 50mg Take 1 Univers mg tablet 6-06 tablet by ity o f 00:00: mouth [place] 00 every 6 Medical (six) Branch hours as needed for Pain (scale 4-6). traMADol 50 2019-0 Yes [id number] 50mg Take 1 Univers mg tablet 6-06 tablet by ity o f 00:00: mouth [place] 00 every 6 Medical (six) Branch hours as needed for Pain (scale 4-6). traMADol 50 2019-0 Yes [id number] 50mg Take 1 Univers mg tablet 6-06 tablet by ity o f 00:00: mouth [place] 00 every 6 Medical (six) Branch hours as needed for Pain (scale 4-6). traMADol 50 2019-0 Yes [id number] 50mg Take 1 Univers mg tablet 6-06 tablet by ity o f 00:00: mouth [place] 00 every 6 Medical (six) Branch hours as needed for Pain (scale 4-6). traMADol 50 2020-0 Yes [id number] 50mg Take 1 Univers mg tablet 6-06 tablet by ity o f 00:00: mouth [place] 00 every 6 Medical (six) Branch hours as needed for Pain (scale 4-6). traMADol 50 2020-0 Yes [id number] 50mg Take 1 Univers mg tablet 6-06 tablet by ity o f 00:00: mouth [place] 00 every 6 Medical (six) Branch hours as needed for Pain (scale 4-6). traMADol 50 2020-0 Yes [id number] 50mg Take 1 Univers mg tablet 6-06 tablet by ity o f 00:00: mouth [place] 00 every 6 Medical (six) Branch hours as needed for Pain (scale 4-6). traMADol 50 2020-0 Yes [id number] 50mg Take 1 Univers mg tablet 6-06 tablet by ity o f 00:00: mouth [place] 00 every 6 Medical (six) Branch hours as needed for Pain (scale 4-6). traMADol 50 2020-0 Yes [id number] 50mg Take 1 Univers mg tablet 6-06 tablet by ity o f 00:00: mouth [place] 00 every 6 Medical (six) Branch hours as needed for Pain (scale 4-6). traMADol 50 2020-0 Yes [id number] 50mg Take 1 Univers mg tablet 6-06 tablet by ity o f 00:00: mouth [place] 00 every 6 Medical (six) Branch hours as needed for Pain (scale 4-6). clindamycin 2019-0 2020- No [id number] 450mg Take 3 Univers 150 mg 6- 06-17 capsules ity of capsule 00:00: 04:59 by mouth 3 [place] 00 :00 (three) Medical times Branch daily for 10 days. glipiZIDE 2020-0 Yes [id number] 10mg Take 1 Un grabiel 10 mg 2-22 tablet by ity of tablet 00:00: mouth 2 [place] 00 (two) Medical times Branch daily before breakfast and dinner. HYDROcodone 2020-0 Yes [id number] 1{tbl} Take 1 Univers -acetaminop 2-22 tablet by ity of hen 5-325 00:00: mouth [place] mg tablet 00 every 6 Medical (six) Branch hours as needed for Pain (scale 7-10). glipiZIDE 2020-0 Yes [id number] 10mg Take 1 Un grabiel 10 mg 2-22 tablet by ity of tablet 00:00: mouth 2 [place] 00 (two) Medical times Branch daily before breakfast and dinner. HYDROcodone 2020-0 Yes [id number] 1{tbl} Take 1 Univers -acetaminop 2-22 tablet by ity of hen 5-325 00:00: mouth [place] mg tablet 00 every 6 Medical (six) Branch hours as needed for Pain (scale 7-10). glipiZIDE 2020-0 Yes [id number] 10mg Take 1 Un grabiel 10 mg 2-22 tablet by ity of tablet 00:00: mouth 2 [place] 00 (two) Medical times Branch daily before breakfast and dinner. HYDROcodone 2020-0 Yes [id number] 1{tbl} Take 1 Univers -acetaminop 2-22 tablet by ity of hen 5-325 00:00: mouth [place] mg tablet 00 every 6 Medical (six) Branch hours as needed for Pain (scale 7-10). glipiZIDE 2020-0 Yes [id number] 10mg Take 1 Un grabiel 10 mg 2-22 tablet by ity of tablet 00:00: mouth 2 [place] 00 (two) Medical times Branch daily before breakfast and dinner. HYDROcodone 2020-0 Yes [id number] 1{tbl} Take 1 Univers -acetaminop 2-22 tablet by ity of hen 5-325 00:00: mouth [place] mg tablet 00 every 6 Medical (six) Branch hours as needed for Pain (scale 7-10). glipiZIDE 2020-0 Yes [id number] 10mg Take 1 Un grabiel 10 mg 2-22 tablet by ity of tablet 00:00: mouth 2 [place] 00 (two) Medical times Branch daily before breakfast and dinner. HYDROcodone 2020-0 Yes [id number] 1{tbl} Take 1 Univers -acetaminop 2-22 tablet by ity of hen 5-325 00:00: mouth [place] mg tablet 00 every 6 Medical (six) Branch hours as needed for Pain (scale 7-10). glipiZIDE 2020-0 Yes [id number] 10mg Take 1 Un grabiel 10 mg 2-22 tablet by ity of tablet 00:00: mouth 2 [place] 00 (two) Medical times Branch daily before breakfast and dinner. HYDROcodone 2020-0 Yes [id number] 1{tbl} Take 1 Univers -acetaminop 2-22 tablet by ity of hen 5-325 00:00: mouth [place] mg tablet 00 every 6 Medical (six) Branch hours as needed for Pain (scale 7-10). glipiZIDE 2020-0 Yes [id number] 10mg Take 1 Un grabiel 10 mg 2-22 tablet by ity of tablet 00:00: mouth 2 [place] 00 (two) Medical times Branch daily before breakfast and dinner. HYDROcodone 2020-0 Yes [id number] 1{tbl} Take 1 Univers -acetaminop 2-22 tablet by ity of hen 5-325 00:00: mouth [place] mg tablet 00 every 6 Medical (six) Branch hours as needed for Pain (scale 7-10). glipiZIDE 2020-0 Yes [id number] 10mg Take 1 Un grabiel 10 mg 2-22 tablet by ity of tablet 00:00: mouth 2 [place] 00 (two) Medical times Branch daily before breakfast and dinner. HYDROcodone 2020-0 Yes [id number] 1{tbl} Take 1 Univers -acetaminop 2-22 tablet by ity of hen 5-325 00:00: mouth [place] mg tablet 00 every 6 Medical (six) Branch hours as needed for Pain (scale 7-10). glipiZIDE 2020-0 Yes [id number] 10mg Take 1 Un grabiel 10 mg 2-22 tablet by ity of tablet 00:00: mouth 2 [place] 00 (two) Medical times Branch daily before breakfast and dinner. glipiZIDE 2020-0 Yes [id number] 10mg Take 1 Un grabiel 10 mg 2-22 tablet by ity of tablet 00:00: mouth 2 [place] 00 (two) Medical times Branch daily before breakfast and dinner. HYDROcodone 2020-0 Yes [id number] 1{tbl} Take 1 Univers -acetaminop 2-22 tablet by ity of hen 5-325 00:00: mouth [place] mg tablet 00 every 6 Medical (six) Branch hours as needed for Pain (scale 7-10). HYDROcodone 2020-0 Yes [id number] 1{tbl} Take 1 Univers -acetaminop 2-22 tablet by ity of hen 5-325 00:00: mouth [place] mg tablet 00 every 6 Medical (six) Branch hours as needed for Pain (scale 7-10). glipiZIDE 2020-0 Yes [id number] 10mg Take 1 Un grabiel 10 mg 2-22 tablet by ity of tablet 00:00: mouth 2 [place] 00 (two) Medical times Branch daily before breakfast and dinner. HYDROcodone 2020-0 Yes [id number] 1{tbl} Take 1 Univers -acetaminop 2-22 tablet by ity of hen 5-325 00:00: mouth [place] mg tablet 00 every 6 Medical (six) Branch hours as needed for Pain (scale 7-10). glipiZIDE 2020-0 Yes [id number] 10mg Take 1 Un grabiel 10 mg 2-22 tablet by ity of tablet 00:00: mouth 2 [place] 00 (two) Medical times Branch daily before breakfast and dinner. HYDROcodone 2020-0 Yes [id number] 1{tbl} Take 1 Univers -acetaminop 2-22 tablet by ity of hen 5-325 00:00: mouth [place] mg tablet 00 every 6 Medical (six) Branch hours as needed for Pain (scale 7-10). glipiZIDE 2020-0 Yes [id number] 10mg Take 1 Un grabiel 10 mg 2-22 tablet by ity of tablet 00:00: mouth 2 [place] 00 (two) Medical times Branch daily before breakfast and dinner. HYDROcodone 2020-0 Yes [id number] 1{tbl} Take 1 Univers -acetaminop 2-22 tablet by ity of hen 5-325 00:00: mouth [place] mg tablet 00 every 6 Medical (six) Branch hours as needed for Pain (scale 7-10). ciprofloxac 2020-0 2020- No [id number] 500mg Take 1 Univers in HCl 500 -04 12-01 tablet by ity of mg tablet 00:00: 05:59 mouth [place] 00 :00 every 12 Medical (twelve) Branch hours for 7 days. metroNIDAZO 2020-0 2020- No [id number] 500mg Take 1 Univers LE 500 mg 2-22 03-01 tablet by ity of tablet 00:00: 05:59 [...] No 1mg 1 mg, Slow Univers ne 2-20 02-21 IV Push, ity of (DILAUDID) 17:03: 15:33 Q3HPRN, [place] injection 1 17 :39 Starting Medi kyrie mg Angelina Branch 11/04/19 at 1103, Until Fri 21/20 at 0933, MANDEEP, Pain (scale 7-10)
U se approved by (Faculty): [employer] PROVIDER sennosides 2019-0 Yes 8.6mg 8.6 mg, Uni vers (SENOKOT) 2-20 Oral, ity of tablet 8.6 15:00: DAILY, [place] mg 00 First dose Medical on Angelina Branch 11/04/19 at 0900, Until Discontinu ed, Routine ciprofloxac 2019-0 2020- No 400mg 400 mg, IV Univers in in 5 % -04 11- Piggyback, ity of dextrose 07:00: 20:00 Administer [...] at 2000, Until Discontinu ed, Routine insulin 2019-0 2020- No 30U 30 Units, Univ ers detemir -04 11-20 Subcutaneo ity o f U-100 01:30: 14:24 us, DAILY, [place] (LEVEMIR 00 :53 First dose Medic al U-100 on Fri Branch INSULIN) 11/03/19 at injection 1930, 30 Units Until Discontinu ed, Routine glipiZIDE 2019-0 Yes 10mg 10 mg, Univer s (GLUCOTROL) 2-20 Oral, ity of tablet 10 00:45: BIDAC, [place] mg 00 First dose Medical on Fri Branch 11/03/19 at 1845, Until Discontinu ed, Routine metroNIDAZO 2019-0 2020- No 500mg 500 mg, IV Univers LE (FLAGYL 11-03 Piggyback, it y of I.V.) 23:15: 16:06 Q8H ABX, 6 [place] Piggyback 00 :00 doses, Medical 500 mg First dose Branch on Fri11/03/19 at 1715, Last dose on Fri11/05/19 at 0915, 100 mL
Reas on for Anti-Infec tive: Documented Infection< br>Documen yelena Infection Site: Abdominal< br>Duratio n of Therapy: 7 days HYDROcodone 2020-0 Yes 1{tbl} 1 tablet, Univers -acetaminop 11-03 Oral, ity of hen (NORCO 21:44: Q4HPRN, [place] 5) 5-325 mg 00 Starting Medi kyrie tablet 1 Fri Branch tablet 11/03/19 at 1544, Until Discontinu ed, Routine, Pain (scale 4-6) morpHINE 2019-0 2019- No 4mg 4 mg, Slow Un grabiel injection 4 11-03 IV Push, ity of mg 21:43: 17:06 Q2HPRN, [place] 39 :17 Starting Medical Wed Branch 11/03/19 at 1543, Until Angelina 11/04/19 at 1106, Routine, Pain (scale 7-10) ondansetron 2019-0 Yes 4mg 4 mg, Slow Univers (ZOFRAN 11-03 IV Push, ity of (PF)) 21:40: Q6HPRN, [place] injection 4 10 Starting Medi kyrie mg Wed Branch 11/03/19 at 1540, Until Discontinu ed, Routine, Nausea and Vomiting (N/V) metroNIDAZO 2019-0 2020- No 500mg 500 mg, IV Univers LE (FLAGYL 11-03 Piggyback, it y of I.V.) 19:30: 19:55 ONCE, 1 [place] Piggyback 00 :00 dose, Wed Medic al 500 mg 11/03/19 at Branch 1330, 100 mL
Reas on for Anti-Infec tive: Documented Infection< br>Documen yelena Infection Site: Abdominal< br>Duratio n of Therapy: Other (see Comments) ciprofloxac 2019-2019- No 400mg 400 mg, IV Univers in in 5 % 11-03 Piggyback, ity of dextrose 19:30: 19:43 Administer [place] (CIPRO) 00 :00 over 60 Medical piggyback Minutes, Branch 400 mg ONCE, 1 dose, 11/03/19 at 1330, MANDEEP
Re ason for Anti-Infec tive: Documented Infection< br>Documen yelena Infection Site: Abdominal< br>Duratio n of Therapy: Other (see Comments) D5W 0.45% 2019-2019- No 1000mL at 125 Uni vers NaCl 11-03 mL/hr, ity of (1/2NS) IV 19:15: 01:21 1,000 mL, [place] infusion 00 :07 IV Medical 1,000 mL Infusion, Branch CONTINUOUS , Starting 11/03/19 at 1315, Until Fri11/03/19 at 1921, MANDEEP FENTanyl PF 2019-2019- No 125ug 125 mcg, Univers (SUBLIMAZE 11-03 Slow IV ity o f (PF)) 18:15: 17:26 Push, [place] injection 00 :00 ONCE, 1 Medical 125 mcg dose, Wed Branch 11/03/19 at 1215, Routine iohexol 2019-2019- No 120mL 120 mL, Unive rs (OMNIPAQUE [...] dose, 11/03/19 at 1100, STAT FENTanyl PF 2019-2019- No 100ug 100 mcg, Univers (SUBLIMAZE 11-03 [...] Branch 1100, MANDEEP cyclobenzap 2018-09 2020- No [id number] 5mg Take 1 Univers rine 5 mg 11-06 9100 tablet by ity of tablet 00:00: 00:00 mouth 3 [place] 00 :00 (three) Medical times Branch daily. traMADol 2018-09- No [id number] 50mg Take 1 Univers (ULTRAM) 50 11-06 [...] Time Observation Value Comments Source Systolic blood 2022-07-13 02:00:00 165 mm[Hg] Univer sity of pressure [facility] Diastolic blood 2022-07-13 02:00:00 96 mm[Hg] [facility] Heart rate 2022-07-13 02:00:00 88 /min Universi ty of [place] [facility] Respiratory rate 2022-07-13 02:00:00 18 /min Univ ersity of [place] [facility] Oxygen saturation in 2022-07-13 02:00:00 98 /min University of Arterial blood by [place] [employer] kyrie Pulse oximetry Branch Body temperature 2022-07-13 01:48:00 37 Leonor Univ ersity of [place] [facility] Body height 2022-07-13 01:25:00 188 cm [facility]i ty [facility] [place] [facility] Body weight 2022-07-13 01:25:00 129.275 kg [facility]i ty [facility] [place] [facility] BMI 2022-07-13 01:25:00 36.59 kg/m2 [facility] ty [facility] [place] [facility] Systolic blood 2022-07-07 02:21:33 135 mm[Hg] Univer sity of pressure [place] [facility] Diastolic blood 2022-07-07 02:21:33 81 mm[Hg] Unive rsity of pressure [place] [facility] Heart rate 2022-07-07 02:21:33 93 /min Universi ty [facility] [place] [facility] Respiratory rate 2022-07-07 02:21:33 18 /min Univ ersity of [place] [facility] Oxygen saturation in 2022-07-07 02:21:33 96 /min University of Arterial blood by [place] [employer] kyrie Pulse oximetry Branch Body temperature 2022-07-07 00:44:00 37 Leonor Univ ersity of [place] [facility] Body height 2022-07-07 00:44:00 188 cm [facility]i ty [facility] [place] [facility] Body weight 2022-07-07 00:44:00 129.275 kg [facility]i ty [facility] [place] [facility] BMI 2022-07-07 00:44:00 36.59 kg/m2 [facility] [place] [facility] Systolic blood 2022-06-21 18:46:00 128 mm[Hg] Univer sity of pressure [place] [facility] Diastolic blood 2022-06-21 18:46:00 86 mm[Hg] Unive rsity of pressure [place] [facility] Heart rate 2022-06-21 18:46:00 81 /min [facility]i ty [facility] [place] [facility] Respiratory rate 2022-06-21 18:46:00 16 /min Univ ersity of [place] [facility] Oxygen saturation in 2022-06-21 18:46:00 99 /min University of Arterial blood by [place] [employer] kyrie Pulse oximetry Branch Body temperature 2022-06-21 16:02:00 37.06 Leonor Univ ersity of [place] [facility] [place] Body height 2022-06-21 16:02:00 188 cm Universi ty of [place] [facility] [place] Body weight 2022-06-21 16:02:00 127.007 kg [facility] ty [facility] [place] [facility] BMI 2022-06-21 16:02:00 35.95 kg/m2 Universi ty of [facility] Systolic blood 2020-04-24 13:23:00 129 mm[Hg] Univer sity of pressure [place] [facility] [place] Diastolic blood 2020-04-24 13:23:00 81 mm[Hg] Unive rsity of pressure [facility] Heart rate 2020-04-24 13:23:00 82 /min Universi ty of [place] [facility] [place] Body weight 2020-04-24 13:23:00 138.075 kg Universi ty [facility] [place] [facility] [place] BMI 2020-04-24 13:23:00 39.08 kg/m2 Universi ty of [facility] Systolic blood 2020-04-24 13:23:00 129 mm[Hg] Univer sity of pressure [place] [facility] Diastolic blood 2020-04-24 13:23:00 81 mm[Hg] Unive rsity of pressure [place] [facility] [place] Heart rate 2020-04-24 13:23:00 82 /min [facility] [place] Body weight 2020-04-24 13:23:00 138.075 kg [facility] BMI 2020-04-24 13:23:00 39.08 kg/m2 [facility] Systolic blood 2020-04-07 03:51:00 118 mm[Hg] Univer sity of pressure [facility] Diastolic blood 2020-04-07 03:51:00 68 mm[Hg] [facility]ive [facility] [place] Heart rate 2020-04-07 03:51:00 92 /min [facility] Respiratory rate 2020-04-07 03:51:00 16 /min Univ ersity of [facility] Oxygen saturation in 2020-04-07 03:51:00 100 /min [facility] Arterial blood by [facility] Pulse oximetry Branch Body temperature 2020-04-07 03:40:00 36.44 Leonor [facility] [place] [facility] [place] Body weight 2020-04-07 00:07:00 129.275 kg [facility] BMI 2020-04-07 00:07:00 36.59 kg/m2 [facility] Heart rate 2020-02-19 23:10:00 105 /min [facility] Respiratory rate 2020-02-19 23:10:00 29 /min Univ ersity of [facility] Oxygen saturation in 2020-02-19 23:10:00 94 /min [facility] of Arterial blood by [place] [facility] Pulse oximetry Branch Systolic blood 2020-02-19 23:00:00 127 mm[Hg] [facility] [place] [facility] Diastolic blood 2020-02-19 23:00:00 78 mm[Hg] Unive rsity of pressure [facility] Body temperature 2020-02-19 22:04:10 37.33 Leonor Univ ersity of [facility] Body height 2020-02-19 19:56:00 188 cm [facility] [place] Body weight 2020-02-19 19:56:00 129.275 kg [facility] BMI 2020-02-19 19:56:00 36.59 kg/m2 [facility] Systolic blood 2019-11-06 17:14:00 138 mm[Hg] Univer sity of pressure [facility] Diastolic blood 2019-11-06 17:14:00 88 mm[Hg] Unive rsity of pressure [facility] Heart rate 2019-11-06 17:14:00 102 /min [facility] Respiratory rate 2019-11-06 17:14:00 18 /min Univ ersity of [facility] Oxygen saturation in 2019-11-06 17:14:00 96 /min [facility] by [facility] Pulse oximetry Branch Body temperature 2019-11-06 14:00:00 36.72 Leonor [facility] Body height 2019-11-03 23:00:00 188 cm [facility] Body weight 2019-11-03 15:22:00 129.275 kg [facility] BMI 2019-11-03 15:22:00 36.58 kg/m2 [facility] Procedures Procedure Date / Time Performing Clinician Source Performed CONSENT/REFUSAL FOR 2022-07-13 01:17:58 Doctor Unassigned, No Un [facility] DIAGNOSIS AND TREATMENT Name Medical Branch CONSENT/REFUSAL FOR 2022-07-07 00:35:11 Doctor Unassigned, No [facility] [place] [facility] Name Medical [facility] CT HEAD WO CONTRAST 2022-06-21 17:34:58 Stephanie Oneal [facility] [place] XR CHEST 1 VW 2022-06-21 16:37:11 Stephanie Oneal [facility] TROPONIN I 2022-06-21 16:28:00 Stephanie Oneal [facility] BASIC METABOLIC PANEL 2022-06-21 16:28:00 Stephanie Oneal [facility] (NA, K, CL, CO2, Medical Branch GLUCOSE, BUN, CREATININE, CA) CBC WITH DIFF 2022-06-21 16:28:00 Stephanie Oneal [facility] NOTICE OF PRIVACY 2022-06-21 15:51:50 [facility] CONSENT/REFUSAL FOR 2022-06-21 15:51:34 Doctor Unassigned, No [facility] [place] [facility] Name [facility] [place] EGD (ENDO) 2020-04-07 02:31:21 Lisa Armendariz [facility] COMP. METABOLIC PANEL 2020-04-07 01:52:00 Yazmin Apple [facility] ([id number]) Medical Branch CBC WITH DIFF 2020-04-07 01:52:00 Yazmin Apple [facility] XR NECK SOFT TISSUE 2020-04-07 00:57:29 Yazmin Apple [facility] COVID-19 (ID NOW RAPID 2020-04-07 00:40:00 Yazmin Apple [facility] TESTING) Medical Branch NOTICE OF PRIVACY 2020-04-06 23:57:19 Doctor [facility], No [facility] Medical Branch CONSENT/REFUSAL FOR 2020-04-06 23:57:05 Doctor Unassigned, No [facility] [place] [facility] TREAT[facility] Name Medical Branch REFERRAL- 2020-03-29 05:01:00 Doctor Unassigned, No [facility] REQUEST/RESPONSE Name Medical Branch POCT GLUCOSE 2020-02-19 23:05:00 Stephanie Oneal [facility] (AUTOMATED) Medical Branch POCT GLUCOSE 2020-02-19 21:52:00 Stephanie Oneal [facility] (AUTOMATED) Medical Branch COMP. METABOLIC PANEL 2020-02-19 20:47:00 Stephanie Oneal [facility] ([id number]) Medical Branch CBC WITH DIFFERENTIAL 2020-02-19 20:47:00 Stephanie Oneal [facility] Medical Branch COVID-19 (ID NOW RAPID 2020-02-19 20:47:00 Stephanie Oneal [facility] TESTING) Medical Branch NOTICE OF PRIVACY 2020-02-19 19:53:34 Doctor Unassigned, No [facility] PRACTICES Name Medical Branch CONSENT/REFUSAL FOR 2020-02-19 19:53:23 Doctor Unassigned, No [facility] DIAGNOSIS AND TREATMENT Name Medical Branch POCT GLUCOSE 2019-11-06 13:36:00 Pavithra [facility] (AUTOMATED) Medical Branch POCT GLUCOSE 2019-11-06 01:48:00 Pavithra [facility] (AUTOMATED) Medical Branch POCT GLUCOSE 2019-11-05 22:16:00 Pavithra [facility] (AUTOMATED) Medical Branch POCT GLUCOSE 2019-11-05 17:26:00 Pavithra [facility] (AUTOMATED) Medical Branch POCT GLUCOSE 2019-11-05 13:21:00 Pavithra [facility] (AUTOMATED) Medical Branch BASIC METABOLIC PANEL 2019-11-05 10:28:[facility], K, CL, CO2, Medical Branch GLUCOSE, BUN, CREATININE, CA) CBC WITH DIFFERENTIAL 2019-11-05 10:28:[facility]SE 2019-11-05 10:12:00 Pavithra [facility] (AUTOMATED) Medical Branch POCT GLUCOSE 2019-11-05 06:12:00 Pavithra [facility] (AUTOMATED) Medical Branch POCT GLUCOSE 2019-11-05 01:41:00 Pavithra [facility] (AUTOMATED) Medical Branch POCT GLUCOSE 2019-11-04 22:26:00 Pavithra [facility] (AUTOMATED) Medical Branch POCT GLUCOSE 2019-11-04 17:20:00 Pavithra [facility] (AUTOMATED) Medical Branch POCT GLUCOSE 2019-11-04 13:21:00 Pavithra [facility] (AUTOMATED) Medical Branch POCT GLUCOSE 2019-11-04 11:57:00 Pavithra [facility] (AUTOMATED) Medical Branch POCT GLUCOSE 2019-11-04 05:30:00 Pavithra [facility] (AUTOMATED) Medical Branch POCT GLUCOSE 2019-11-04 02:17:00 Pavithra [facility] (AUTOMATED) Medical Branch POCT GLUCOSE 2019-11-03 23:23:00 Pavithra [facility] (AUTOMATED) Medical Branch POCT GLUCOSE 2019-11-03 21:41:00 Pavithra [facility] (AUTOMATED) [facility] SURGICAL PATHOLOGY EXAM 2019-11-03 20:26:00 [facility] 2019-11-03 19:24:00 Yonatan Lund [facility] APPENDECTOMY [facility] CT ABDOMEN PELVIS W 2019-11-03 17:41:22 Ervin Rhoades [facility] CONTRAST [facility] Branch LIPASE 2019-11-03 15:35:00 Jf [facility] COMP. METABOLIC PANEL 2019-11-03 15:35:00 Ervin Rhoades [facility] ([id number]) [facility] CBC WITH DIFFERENTIAL 2019-11-03 15:35:00 Jf Ervin [facility] GLYCOSYLATED HEMOGLOBIN 2019-11-03 15:35:00 Stephanie Pichardo [facility] (A1C) [facility] URINALYSIS 2019-11-03 [facility] Start End Encounter Admission Attending Care Care Encounter Source Date/Time Date/Time Type Type Clinicians Facility Department ID 2022-07-12 2022-07-12 Emergency X TAVO [facility] ERT [id number] Univers 20:32:00 22:17:00 YADIEL osman [facility] 2022-07-12 2022-07-12 Emergency [facility] [id number] Univers 20:32:00 22:17:00 Yadiel PATEL [id number] i ty of [place] 4.2.7.2.686 [facility] [phone] [address] 2022-07-12 2022-07-12 Outpatient Tanja NOVOA, [facility] [id number] Univers 08:40:00 08:40:00 DAVID victor manuel [facility] 2022-07-06 2022-07-06 Emergency X [facility] ERT [id number] Univers 19:49:00 23:18:00 ALEXIS victor manuel [facility] 2022-07-06 2022-07-06 Emergency [facility] [id number] Univers 19:49:00 23:18:00 Alexis Monroy AMANDA [id number] ity of [place] 4.2.7.[address] [place] [id number] 2022-06-21 2022-06-21 Emergency X JMFOUR [facility] ERT [id number] Univers 11:04:00 13:54:00 STEPHANIE [facility] 2022-06-21 2022-06-21 [facility] [id number] Univers 11:04:00 13:54:00 tSephanie Monroy AMANDA 350.1.13.10 i ty of [place] 4.2.7.2.686 [facility] [id number] [address] 2022-06-21 2022-06-21 Orders Doctor NAREN [id number] Univers 00:00:00 00:00:00 Only Unassigned, MIRI [id number] ity of [place] [facility] 4.2.7.2.686 [facility] [id number] [address] 2020-08-15 2020-08-15 Outpatient Tanja [facility] [id number] Univers 10:00:00 10:00:00 SILVINA osman [facility] 2020-04-24 2020-04-24 Office Dolores, [facility] [id number] 08:15:37 08:49:56 Visit Norberto Kothari Amanda [id number] [place] 4.2.7.2.686 Professio [id number] nal [address] [place] [address] 2020-04-24 2020-04-24 Office Dolores [facility] [id number] Univers 08:15:37 08:49:56 Visit Norberto Patel 350.1.13.10 it[place] [id number] De dical [address] 2020-04-24 2020-04-24 Outpatient R NORBERTO BERNAL [facility] [id number] Univers 08:00:00 08:00:00 NORBERTO BERNAL ity of [facility] 2020-04-06 2020-04-06 Emergency Yazmin Apple [facility] [id number] Univers 19:12:13 22:55:00 Melanie Patel 350.1.13.10 [place] [id number] [address] 2020-04-06 2020-04-06 Emergency X Yazmin APPLE [facility] ERT [id number] Univers 19:12:13 19:12:13 ity of [facility] 2020-04-06 2020-04-06 Orders Doctor SNEED 1.2.840.114 [id number] Univers 00:00:00 00:00:00 Only Unassigned, MIRI 350.1.13.10 ity of [place] [facility] 4.2.7.2.686 Danie as [id number] [address] 2020-03-29 2020-03-29 Orders Doctor SNEED 1.2.840.114 [id number] Univers 00:00:00 00:00:00 Only Unassigned, MIRI 350.1.13.10 ity of [place] [facility] 4.2.7.2.686 Danie as [id number] [address] 2020-02-19 2020-02-19 Emergency Jm [facility] [id number] Univers 15:07:18 19:22:00 Stephanie Patel 350.1.13.10 i ty of [place] 4.2.7.2.686 [facility] [id number] [facility] 084 Branch 2020-02-19 2020-02-19 Emergency X [facility] ERT [id number] Univers 14:53:00 14:53:00 ity of [facility] 2020-02-19 2020-02-19 Orders Doctor NAREN 1.2.840.114 [id number] Univers 00:00:00 00:00:00 Only Unassigned, MIRI 350.1.13.10 ity of [place] [facility] 4.2.7.2.686 Danie [phone] [facility] 009 Branch 2019-11-08 2019-11-08 Transition Faraz Nicolas 1.2.840.114 [id number] Univers 00:00:00 00:00:00 of Care Hortensia De Jesus 350.1.13.10 ity of [place] 4.2.7.2.686 [facility] [id number] [facility] 403 Branch 2019-11-03 2019-11-06 Hospital Ervin Rhoades [facility] 1.2.840.1 [id number] Univers 09:25:15 12:00:00 Encounter Luis Arshad 350.1.13.10 ity of [place] 4.2.7.2.686 [facility] [id number] [facility] 080 Branch 2019-11-03 2019-11-06 Inpatient X PAVITHRA DEARIANA TIMOTEO [id number] Univers 09:25:15 12:00:00 [facility] Test Description Test Time Test Comments Results Result Comments Source TROPONIN I 2022-06-21 17:02:55 Test Item Value Reference Range Interpretation Comme nts TROPONIN I (test code = 0.004 ng/mL See_Comment [Au tomated message] The [id number]) system which ge nerated this result tra nsmitted reference range : <=0.034. The reference r jevon was not used to int erpret this result as normal/abnormal . KATE (test code = KATE) Reference (Normal) Range (defined by the 99th percentile reference limit): <= 0.034 ng/mL Note: Cardiac troponin begins to rise 3-4 hours after the onset of ischemia. Repeat in 4-6 hours if the sample was drawn within 3-4 hours of the onset of the symptom and found normal. Diagnosis of myocardial injury is made with acute changes in cTn concentrations with at least one serial sample above the 99th percentile upper reference limit (URL), taken together with the patient's clinical presentation. Biotin has been reported to cause a negative bias, interpret results relative to patient's use of biotin. Lab Interpretation Normal (test code = 09716-2) [facility] METABOLIC PANEL (NA, K, CL, CO2, GLUCOSE, BUN, CREATININE, CA)2022-06-21 16:50:52 Test Item Value Reference Range Interpretation Comments NA (test code = 137 mmol/L 135-145 2680528601) K (test code = 4.6 mmol/L 3.5-5 7384638248) CL (test code = 97 mmol/L 98-108 L 6551255316) CO2 TOTAL (test code = 30 mmol/L 23-31 3797231633) AGAP (test code = 2-16 0475431048) BUN (test code = 11 mg/dL 7-23 4902950492) GLUCOSE (test code = 214 mg/dL 70-110 H 7260164654) CREATININE (test code = 1.16 mg/dL 0.6-1.25 9613579917) CALCIUM (test code = 8.5 mg/dL 8.6-10.6 L 2706860506) eGFR (test code = mL/min/1.73m2 0523072522) KATE (test code = KATE) Association of [...] tests). Lab Interpretation Abnormal (test code = 31245-6) [facility] WITH [id number] 16:39:51 Test Item Value Reference Range Interpretation Comments WBC (test code = See_Comment [Automated 8690-2) message] The sy stem which generated this [...] as normal/abnormal . HGB (test code = 16.7 g/dL 12.2-16.4 H 718-7) HCT (test code = 49.7 % 38.4-49.3 H 4544-3) MCV (test code = 79.0 fL 81.7-95.6 L 787-2) MCH (test code = 26.6 pg 26.1-32.7 785-6) MCHC (test code = 33.6 g/dL 31.2-35 786-4) RDW-SD (test code = 37.0 fL 38.5-51.6 L 70379-1) RDW-CV (test code = 13.2 % 12.1-15.4 788-0) PLT (test code = See_Comment [Automated 607-3) message] The sy stem which generated this result transmitted reference range : 150 - 328 10*3/ ?L. The reference r jevon was not used to interpret this result as normal/abnormal . MPV (test code = 11.1 fL 9.8-13 16863-2) NRBC/100 WBC (test See_Comment [Automat ed code = 6383373382) message] The system which generated this result transmitted reference range : 0.0 - 10.0 /100 WBCs. The refer ence range was not u sed to interpret th is result as normal/abnormal . NRBC x10^3 (test code See_Comment [Auto mated = 8961188703) message] The s ystem which generated this result transmitted reference range : 10*3/?L. The reference range was not used to interpret this result as normal/abnormal . GRAN MAT (NEUT) % 67.3 % (test code = 770-8) IMM GRAN % (test code 0.20 % = 9047684306) LYMPH % (test code = 23.5 % 736-9) MONO % (test code = 5.7 % 5905-5) EOS % (test code = 2.6 % 713-8) BASO % (test code = 0.7 % 706-2) GRAN MAT x10^3(ANC) 3.93 10*3/uL 1.99-6.95 (test code = 1581037909) IMM GRAN x10^3 (test 0-0.06 code = 7289869286) LYMPH x10^3 (test code 1.37 10*3/uL 1.09-3.23 = 731-0) MONO x10^3 (test code 0.33 10*3/uL 0.36-1.02 L = 742-7) EOS x10^3 (test code = 0.15 10*3/uL 0.06-0.53 711-2) BASO x10^3 (test code 0.04 10*3/uL 0.01-0.09 = 704-7) Lab Interpretation Abnormal (test code = 90857-8) [facility]90871[facility]2020-04-07 03:03:00 Test Item Value Reference Range Interpretation Comments NA (test code = 139 mmol/L 135-145 4667681760) K (test code = 4.4 mmol/L 3.5-5 3193070258) CL (test code = 101 mmol/L 98-108 6672513801) CO2 TOTAL (test code = 28 mmol/L 23-31 8181605435) AGAP (test code = 2-16 8730904276) BUN (test code = 11 mg/dL 7-23 4554663491) GLUCOSE (test code = 225 mg/dL 70-110 H 6446403000) CREATININE (test code = 0.98 mg/dL 0.6-1.25 9604989145) TOTAL BILI (test code = 0.5 mg/dL 0.1-1.1 4163020261) CALCIUM (test code = 9.6 mg/dL 8.6-10.6 9911835134) T PROTEIN (test code = 8.2 g/dL 6.3-8.2 2248740880) ALBUMIN (test code = 4.7 g/dL 3.5-5 8468913241) ALK PHOS (test code = 75 U/L 34-122 4938724283) ALTv (test code = 74 U/L 5-50 H 1742-6) AST(SGOT) (test code = 39 U/L 13-40 3689456728) eGFR Calculation mL/min/1.73m2 (Non-) (test code = 2228766637) eGFR Calculation mL/min/1.73m2 () (test code = 1357916690) KATE (test code = KATE) Association of [...] tests). Lab Interpretation Abnormal (test code = 58952-6) [facility] WITH [id number] 02:12:00 Test Item Value Reference Range Interpretation Comments WBC (test code = See_Comment [Automated 1137-2) message] The sy stem which generated this result transmitted reference range : 4.20 - 10.70 10*3/?L. The reference range was not used to interpret this result as normal/abnormal . RBC (test code = See_Comment H [Automated 589-8) message] The sy stem which generated this [...] (test code = 36.4 fL 38.5-51.6 L 22557-6) RDW-CV (test code = 12.5 % 12.1-15.4 788-0) PLT (test code = See_Comment [Automated 777-3) message] The sy stem which generated this result transmitted reference range : 150 - 328 10*3/ ?L. The reference r jevon was not used to interpret this result as normal/abnormal . MPV (test code = 11.5 fL 9.8-13 33276-2) NRBC/100 WBC (test See_Comment [Automat ed code = 0785649689) message] The system which generated this result transmitted reference range : 0.0 - 10.0 /100 WBCs. The refer ence range was not u sed to interpret th is result as normal/abnormal . NRBC x10^3 (test code <0.01 See_Comment [Auto mated = 2092093726) message] The s ystem which generated this result transmitted reference range : 10*3/?L. The reference range was not used to interpret this result as normal/abnormal . GRAN MAT (NEUT) % 68.0 % (test code = 770-8) IMM GRAN % (test code 0.40 % = 4815885026) LYMPH % (test code = 23.8 % 736-9) MONO % (test code = 4.7 % 5905-5) EOS % (test code = 2.7 % 713-8) BASO % (test code = 0.4 % 706-2) GRAN MAT x10^3(ANC) 5.24 10*3/uL 1.99-6.95 (test code = 5720026165) IMM GRAN x10^3 (test 0.03 10*3/uL 0-0.06 code = 0700633662) LYMPH x10^3 (test code 1.83 10*3/uL 1.09-3.23 = 731-0) MONO x10^3 (test code 0.36 10*3/uL 0.36-1.02 = 742-7) EOS x10^3 (test code = 0.21 10*3/uL 0.06-0.53 711-2) BASO x10^3 (test code 0.03 10*3/uL 0.01-0.09 = 704-7) Lab Interpretation Abnormal (test code = 71427-0) [facility]APID [facility]2020-04-07 01:40:00 Test Item Value Reference Range Interpretation Comments SARS-CoV-2 Rapid ID NOW Not Detected Not Detected (test code = 26694-2) KATE (test code = KATE) ID NOW COVID-19 Assay is an isothermal nucleic acid amplification test intended for the qualitative detection of nucleic acid from SARS-CoV-2 viral RNA in nasopharyngeal (INVESTMENT REPRESENTATIVE) specimens. It is used under Emergency Use [...] indicated. Lab Interpretation Normal (test code = 83556-2) [facility] N[facility]K SOFT [id number] 01:06:58 FINDINGS/IMPRESSION:: Frontal and lateral radiographs of [...] spondylotic changes at C5-C6. Cervical spine is otherwiseunremarkable.[facility] GLUCOSE (AUTOMATED)2020-02-19 23:08:00 Test Item Value Reference Range Interpretation Comments POCT GLU (test code = 3479029534) 243 mg/dL 70-110 H Lab Interpretation (test code = Abnormal 53212-0) [facility] GLUCOSE (AUTOMATED)2020-02-19 21:58:00 Test Item Value Reference Range Interpretation Comments POCT GLU (test code = 0751138022) 313 mg/dL 70-110 H Lab Interpretation (test code = Abnormal 28929-2) [facility] NOW RAPID TESTING)2020-02-19 21:31:00 Test Item Value Reference Range Interpretation Comments SARS-CoV-2 Rapid ID NOW Not Detected Not Detected (test code = 30517-2) KATE (test code = KATE) ID NOW COVID-19 Assay is an isothermal nucleic acid amplification test intended for the qualitative detection of nucleic acid from SARS-CoV-2 viral RNA in nasopharyngeal (INVESTMENT REPRESENTATIVE) specimens. It is used under Emergency Use [...] indicated. Lab Interpretation Normal (test code = 44431-9) [facility] (70739)2020-02-19 21:29:00 Test Item Value Reference Range Interpretation Comments NA (test code = 134 mmol/L 135-145 L 5155053188) K (test code = 4.1 mmol/L 3.5-5 8077477390) CL (test code = 99 mmol/L 98-108 1053220263) CO2 TOTAL (test code = 27 mmol/L 23-31 5203385865) AGAP (test code = 2-16 3767546380) BUN (test code = 10 mg/dL 7-23 8885292410) GLUCOSE (test code = 372 mg/dL 70-110 H 3473914484) CREATININE (test code = 0.96 mg/dL 0.6-1.25 5587720243) TOTAL BILI (test code = 0.4 mg/dL 0.1-1.4 2019141909) CALCIUM (test code = 9.2 mg/dL 8.6-10.6 5078362040) T PROTEIN (test code = 7.5 g/dL 6.3-8.2 8999646502) ALBUMIN (test code = 4.5 g/dL 3.5-5 2776940790) ALK PHOS (test code = 86 U/L 34-122 5689162733) ALTv (test code = 48 U/L 5-50 1742-6) AST(SGOT) (test code = 27 U/L 13-40 1057476241) eGFR Calculation mL/min/1.73m2 (Non-) (test code = 8800562749) eGFR Calculation mL/min/1.73m2 () (test code = 4116408152) KATE (test code = KATE) Association of [...] tests). Lab Interpretation Abnormal (test code = 42466-7) [facility] WITH [id number] 21:06:00 Test Item Value Reference Range Interpretation Comments WBC (test code = See_Comment [Automated 1190-2) message] The sy stem which generated this [...] (test code = 36.3 fL 38.5-51.6 L 46532-0) RDW-CV (test code = 12.9 % 12.1-15.4 788-0) PLT (test code = See_Comment [Automated 777-3) message] The sy stem which generated this result transmitted reference range : 150 - 328 10*3/ ?L. The reference r jevon was not used to interpret this result as normal/abnormal . MPV (test code = 11.3 fL 9.8-13 53054-8) NRBC/100 WBC (test See_Comment [Automat ed code = 5425396801) message] The system which generated this result transmitted reference range : 0.0 - 10.0 /100 WBCs. The refer ence range was not u sed to interpret th is result as normal/abnormal . NRBC x10^3 (test code <0.01 See_Comment [Auto mated = 0114781280) message] The s ystem which generated this result transmitted reference range : 10*3/?L. The reference range was not used to interpret this result as normal/abnormal . GRAN MAT (NEUT) % 79.8 % (test code = 770-8) IMM GRAN % (test code 0.50 % = 4909604086) LYMPH % (test code = 13.4 % 736-9) MONO % (test code = 4.2 % 5905-5) EOS % (test code = 1.8 % 713-8) BASO % (test code = 0.3 % 706-2) GRAN MAT x10^3(ANC) 8.49 10*3/uL 1.99-6.95 H (test code = 1941885215) IMM GRAN x10^3 (test 0.05 10*3/uL 0-0.06 code = 3818723625) LYMPH x10^3 (test code 1.42 10*3/uL 1.09-3.23 = 731-0) MONO x10^3 (test code 0.45 10*3/uL 0.36-1.02 = 742-7) EOS x10^3 (test code = 0.19 10*3/uL 0.06-0.53 711-2) BASO x10^3 (test code 0.03 10*3/uL 0.01-0.09 = 704-7) Lab Interpretation Abnormal (test code = 14446-2) [facility] GLUCOSE (AUTOMATED)2019-11-06 13:38:00 Test Item Value Reference Range Interpretation Comments POCT GLU (test code = 7001596872) 116 mg/dL 70-110 H Lab Interpretation (test code = Abnormal 04540-4) [facility] GLUCOSE (AUTOMATED)2019-11-06 12:29:00 Test Item Value Reference Range Interpretation Comments POCT GLU (test code = 9886467565) 322 mg/dL 70-110 H Lab Interpretation (test code = Abnormal 64529-8) [facility] GLUCOSE (AUTOMATED)2019-11-06 12:29:00 Test Item Value Reference Range Interpretation Comments POCT GLU (test code = 9274039002) 230 mg/dL 70-110 H Lab Interpretation (test code = Abnormal 74800-7) [facility] GLUCOSE (AUTOMATED)2019-11-06 02:00:00 Test Item Value Reference Range Interpretation Comments POCT GLU (test code = 155 mg/dL 70-110 H Notifi ed Provider [id number]) Lab Interpretation (test Abnormal code = 33940-6) [facility] [id number] 00:02:00 Test Item Value Reference Range Interpretation Comments Case Report (test code Surgical Pathology ? ? = [id number]) ?Case: [id number] ? Authorizing Provider: ?Yonatan Lund MD ? ? ? Collected: ? 11/03/2019 1426 ?Ordering Location: ? ? [facility] ? ? ?Received: ?11/03/2019 1555 ? [facility] ?Pathologist: ? Klaus Tinoco MD ? Specimen: ? ?APPENDIX, appendix ? Final Diagnosis (test i6rgbGYtKMQvj0fnEYLwdV code = 2361068858) FuZzEwMzNcZnRuYmpcdWMx LHrmagUvGMpcr8LiA3KsAz AwMFxhbnNpXGRlZmxhbmcx ZYZeGDY1grWpGGHvCOmzAP UsNRoaPx8xyVFxoLzsFxRw PNIbz3iiguJMomcucAt8q4 isZGLwJtZ9xJSvYHsbR4wa vfSzfEGkSIKwKVm1nI75RE RamM3iuBZzNQmmapMuRYyw uzHzxkSlQuc3BXQeJ9vhYH LeTEDxR6IkBI2bBHFeOcf1 BMH0ZWP8yQgjz9J9xAOosR WajEhoUuBcAwKxQRFZh1Mw ESz0nPxrO7XgOTFqBfH6nX QgUGFyYWdyYXBoIEZvbnQ7 wN28TEbacnK2fYLcl4Eha3 8ee829cG6biAMmZJO2GWHz INUnjFVtZFBrRPS3ZSZbgG BuT1hbKYeqSI0vdkxpVJP0 MFxtYXJndDcyMFxtYXJnYj BroPGdEKElvNvaWNrac185 EFW2JsTiGA7wU6Pdc7J1sL 9maXRcZGVmdGFiNzIwXGZv sl1scRRsZHjuj3UiPVK1yj H9rAZpwUMaQNViBD75Rhaq v7MiShwkGUD5ILNehaVim3 Icl2ceSaMahtSkJ2ovT4Kn ZHJoZWFkXHBnYnJkcmZvb3 Mrn0SooTOnaSd8x3xdCAOu YJHzePedt9bqLKJ6UWOnZ8 I4vHYdz7juTXduFACmjLS6 zeJxMFGmgPAuI2GjwY4zCO wwOQ1hfvx1s7ydHvDzDR8o dvhei9wnNOxrRXReHMY7Ai NhBAVqp4EmbzzsEuTkc1Ag yRRmBGvyU03nn503CXDgjr UeT6hwmEXmczczrRGxctuy MFxmczIwXHFsXHBsYWluXG CkVMJzBpWhxDznbI7vUfCo ZnMyMFxwYXJccGFyZFxwbG FpblxmMFxmczIwXHBsYWlu QHBkTSUhUwBzOK4aHBCIQR 8FODzoNUSZGIOWNFDHZV3J WTpccGFyXHFsXHBsYWluXG ShICUaIlIwdJimjU4mRsKc IqUfLPJzANRbPX8xGEMNVG YpWDITXP1VTNILTBkTMThK JAhlKOTWOB2ZOINSWrGXF2 lUSVNccGFyXHBhciBNYXR0 tTR2IOIrfYRsXWJOFRhuAT FwjBxsxD9lEpUlOwInFtpz JI4sTAJjI3hejOXtQOChDW LbP5auSaJkmO8syHehDZxe ZjFcZnMyMiBIYXJzaHdhcm MeFD5eFNrqt5CtBGFAQGKd Kb6mCU4gHIHnFQO9BnIkUM BNXHBsYWluXGYxXGZzMjBc nVNxbAhnwfFmQWqys7VmE6 YyMjAwMFxhbnNpXGRlZmxh xsqoYXTdRCL8ttNxWNDmSO yzYJCdZIwmSr7euDJpbZgb YnXdEDKll5rwdaKTQKybJo TaQ783LKUgIQxyq6vxr8Tx NSZtsZRvj6A6HUHAbowpbW t3b4bwQlGsVxD9mXBuITca N7ldmxHgzMHtF4HsvJFpkZ d0cDkdK57pd6O7BujsU4ta RPIzQVYgB2ImHN8mXIQpLn t4AJE5PPA7OLFrOZUeE9Re DK1cJWJngEPxITu8p9kuhS ktJPOqDJC7m6gzASpjtaS6 VP4kvt3nyCb0p0quzpBfIW EaTZJkaBPFFJXxX0TefDxp Qm3jmMg4xLyeFkrcEZV8Pq u2UX4aut63iye7nEpnYIYq kpsbByN4RFdxNQDtuzulFX e8XXuvSZLmoIC3XUJofQLg P9PhOUNpSL2dxon1OTS9WF qtRPCcYpP4XXKzlULcAAEt kGhzFAurz923RWH3IeJrXY 6dY6Gfz3G6nG1tgSHpAXVk bFWnBgWmMNCglo6pcSFxIJ qom2LgGVD5elY7uMWemIYd YZJrZM03Mkyte1LlBdhfTE V5DLOonyShx9Ejk3zvBhJn spNuB6txF8VoNIZqXWCiYV HdDaUdyzIky4Ynh5KmbLLp hMi3c6dhJMTuTRXjgJoxf5 xxIZT8GHPbJ7C9vLFkl0ng HQveCRWxjNF5ziJ9KEDetL OwT0JmpO4nNTNlHA9ejwh2 v1vtSLZ0KExsBDVoFpW2ns G8BWHioFXbGJJrpDogFAoy m005WCE0QoArEIAtc4WwU5 XmxRcvT54twNeqD42oFUVc zPbipF1jnIvxyN2kLkAcXv MyNFxxbFxwbGFpblxmMVxm czIwXGxhbmcxMDMzXGhpY2 eqHdPnVUCnkLsrKOxrp0Gt XGYxXGNmMlxmczIwXHBhci RTENhnuoTmyOVff80lFCdp eSByZXZpZXdlZCBhbGwgc3 EwA1joDL1jN7YtkQDlajHs htFsWJweSLNvi1g7jJCaoW ryw3RlfIMkTV08egQwCUOg FWP0AKRgs6nxHM68pbtlXt GmxC29fyVdabXkOEUfu1jx F4xkgQNqh8Wvc1HxtzYfPJ fko1SqOX0zcSNsmdxfpGR9 UGXwpOFrotJqywR1oAooGO OqkQ3zbB6eyHywfS1xQqQo QnJzYObaRL5dHJLaZ8xisX VnKWSmPRNwW9tdHmRmyX1g yQnfXqflojX1XRHcwj14 Clinical Information Acute abdomen (test code = 6575761658) Gross Description (test g6nqbPJcOBCzuTXkCpVmQO code = 6650957936) KaJHGrs9uqSYIjaBQfIkYi MzNcZnRuYmpcdWMxXGRlZm Idv6xvu948uKVey3eaRSWz DnP2gBJvYBVljAJhT926ZQ QiQPozm6lky4LfPQQgkXCf m5Z6XEHXziebkEn5hWooB1 2ai6F7DyyaB8zyMRItXTsj YLSvBQyejSMxEGR1QACjFN D7SFkmiiZampO5PSrpfPMn LyN2UBg8h9aktYujXBCoOG M8p7jhTJtxfwUiRJ6znq9g eAd8g7jdypFnRKYfBVWxqR NLSJKbW6CmiAgtOs5zlHm9 gDijQfotIGD1Ccv4LP7rjt 59dpw7cBujVVFhyqvwBqE7 ACitOADskxouHQp1GQqeMJ AacMNwGSSwwSHxD2QzUXns HT0hfpv0RsGkJQ8tsgojSO fyXNDfQTL0KpKbVQWjr3Bi releDmRvkv4bkf29BQZ9p0 XrnYaxSHA2FGP7KdVeMg1p oJAlGYHmIA6wFzHorCFcOT Oyqx47pFgmSHqtqnSwvC8o QtMiSCWesCLyEIJzVT8ugQ PvSAYvvE0tcmspZVKkYfNv koejLDTsoTeogfFiDc0daN yrVKL1XRfrZ5oozT5oZxU8 OGduQ6ytcD9cLPo7HGwmgM Q5CCGjhK8sLZ2lesodh6aq FVP4VFcpFUYmrkJ1ahEpDS FefYUgH3EebO63IoMnxJPg B1EinB9dVLuxCUJexbq9Mt PnFc0ekRNdpXN1OLtjQgcv YWdlXHBnbmNvbnRccGduZG VjXHBsYWluXHBsYWluXGYw PMToOjFec5KrMALqu7maXz Vod9jteTa1WPoreAfroAWj blxmMFxmczIwXHBsYWluXG VtQSTfDzSxK3EoN4ylQR1x QSBpcyByZWNlaXZlZCBpbi Ric0WcHNvapbVrFKRkiAhm VGV0uDCbPAWvPXJhUQLqRK 50XHBsYWluXGYxXGZzMjBc kFspXEqyBOb4CszbhNOpjx xmMVxmczIwIHMgbmFtZSwg VUggbnVtYmVyICJhcHBlbm RpeFxwbGFpblxmMVxmczIw ADE1UhUwGFtxSTPlfWqlkH 3uHoZlIqMqZNAqFY7cFSYj rrEht9RdWG8dPNPqzUewfk 01XC3ohnDweZqyj5KiGOTm zGAtQVh9ZIl4CbfvH18yrJ 2puGOhW8PdUYtvXG51CCIc OCBjbSBpbiBkaWFtZXRlci yld0e6pJAsoMNeK6fpZRC7 DGmhb8ylcE5edNrxbFVrMD Arg0H6qZAhJXDzWKCsWJPx HX5aoSnkLIJbMKY2VWUwUX C0QFWkBLQfsCpuWXODvKVo KKPjVC6abKitk8Xus7MlSR aao7DjNDUqxcT4zGYmVRK2 fEWqoOCuXYGrraMcdUW9xA VudCBleHVkYXRlLiBUaGUg LPWoXM4clRnoePLdd3RzxQ QxqIqtv9QeoCtvwkDvDPPv IHJldmVhbCBhIHBhdGVudC MycI6syueqvnEgZ2xkBwIy ij0fJREgcoQraS81HZCpNB AbHtPdaQraF37oeEQvwxht BiHeZ3WpgTAbLP8nscGqXJ dlLiAgVGhlIHdhbGwgdGhp U6amEIAxPOAuugdzrnIhlb 4fUQJwEA2tQcZcV36aZAPa cnVwdHVyZSBzaXRlIGlzIG nsp5HlcOqiyJZgbjSzXlcq CMctVY5cYADlGFKvo76qrP tcKH70C54pXKjdzrKjEUD4 iD8uGI1toecaxw6zUlSrut EvMC52UKNxrkVqt0MweMyv nrZkt7lnI9vbrS0afHXxBE Smha8dsfEyFTO7mL7iegkb iGinTZVhxQMtwH7lIWKmfs UwMIU5mM5cZD8lprjawoNt bmQgZGlzdGFsIHRpcCBhcm Yeo6FwnEc7tCMcEQswINZp LUEyLlxwYXJccGFyZFxwbG FpblxmMFxmczIwXHBsYWlu XGYxXGZzMjAgSnVsaWUgTW KSpAtcdjL8PUCPGVupBNK8 Embedded Images (test code = 2732409584) [facility] GLUCOSE (AUTOMATED)2019-11-05 22:19:00 Test Item Value Reference Range Interpretation Comments POCT GLU (test code = 4051261129) 115 mg/dL 70-110 H Lab Interpretation (test code = Abnormal 27025-5) [facility] GLUCOSE (AUTOMATED)2019-11-05 18:23:00 Test Item Value Reference Range Interpretation Comments POCT GLU (test code = 2752544817) 197 mg/dL 70-110 H Lab Interpretation (test code = Abnormal 88762-2) [facility] GLUCOSE (AUTOMATED)2019-11-05 17:33:00 Test Item Value Reference Range Interpretation Comments POCT GLU (test code = 6479694693) 125 mg/dL 70-110 H Lab Interpretation (test code = Abnormal 54083-0) [facility] GLUCOSE (AUTOMATED)2019-11-05 13:28:00 Test Item Value Reference Range Interpretation Comments POCT GLU (test code = 5268750546) 130 mg/dL 70-110 H Lab Interpretation (test code = Abnormal 59328-9) [facility] METABOLIC PANEL (NA, K, CL, CO2, GLUCOSE, BUN, CREATININE, CA)2019-11-05 12:11:00 Test Item Value Reference Range Interpretation Comments NA (test code = 137 mmol/L 135-145 7720121955) K (test code = 3.6 mmol/L 3.5-5 2257981448) CL (test code = 100 mmol/L 98-108 3241557998) CO2 TOTAL (test code = 30 mmol/L 23-31 2970569981) AGAP (test code = 2-16 4356359525) BUN (test code = 14 mg/dL 7-23 1081787986) GLUCOSE (test code = 164 mg/dL 70-110 H 4878961283) CREATININE (test code = 0.81 mg/dL 0.6-1.25 3366944695) CALCIUM (test code = 8.6 mg/dL 8.6-10.6 9449345400) eGFR Calculation mL/min/1.73m2 (Non-) (test code = 7058967399) eGFR Calculation mL/min/1.73m2 () (test code = 6186369671) KATE (test code = KATE) Association of [...] tests). Lab Interpretation Abnormal (test code = 94153-2) [facility] WITH FSHHFFABBIVY8092-13-02 11:39:00 Test Item Value Reference Range Interpretation Comments WBC (test code = See_Comment [Automated 6690-2) message] The sy stem which generated this result transmitted reference range : 4.20 - 10.70 10*3/?L. The reference range was not used to interpret this result as normal/abnormal . RBC (test code = See_Comment [Automated 789-8) message] The sy stem which [...] RDW-SD (test code = 38.7 fL 38.5-51.6 42320-4) RDW-CV (test code = 13.0 % 12.1-15.4 788-0) PLT (test code = See_Comment [Automated 777-3) message] The sy stem which generated this result transmitted reference range : 150 - 328 10*3/ ?L. The reference r jevon was not used to interpret this result as normal/abnormal . MPV (test code = 11.5 fL 9.8-13 57011-9) NRBC/100 WBC (test See_Comment [Automat ed code = 1623780800) message] The system which generated this result transmitted reference range : 0.0 - 10.0 /100 WBCs. The refer ence range was not u sed to interpret th is result as normal/abnormal . NRBC x10^3 (test code <0.01 See_Comment [Auto mated = 4594220525) message] The s ystem which generated this result transmitted reference range : 10*3/?L. The reference range was not used to interpret this result as normal/abnormal . GRAN MAT (NEUT) % 83.5 % (test code = 770-8) IMM GRAN % (test code 0.30 % = 4955540174) LYMPH % (test code = 9.3 % 736-9) MONO % (test code = 5.7 % 5905-5) EOS % (test code = 1.1 % 713-8) BASO % (test code = 0.1 % 706-2) GRAN MAT x10^3(ANC) 7.74 10*3/uL 1.99-6.95 H (test code = 0378896036) IMM GRAN x10^3 (test 0.03 10*3/uL 0-0.06 code = 3252573298) LYMPH x10^3 (test code 0.86 10*3/uL 1.09-3.23 L = 731-0) MONO x10^3 (test code 0.53 10*3/uL 0.36-1.02 = 742-7) EOS x10^3 (test code = 0.10 10*3/uL 0.06-0.53 711-2) BASO x10^3 (test code <0.03 0.01-0.09 = 704-7) Lab Interpretation Abnormal (test code = 85981-9) [facility] GLUCOSE (AUTOMATED)2019-11-05 10:22:00 Test Item Value Reference Range Interpretation Comments POCT GLU (test code = 5013046701) 149 mg/dL 70-110 H Lab Interpretation (test code = Abnormal 11035-5) [facility] GLUCOSE (AUTOMATED)2019-11-05 06:15:00 Test Item Value Reference Range Interpretation Comments POCT GLU (test code = 9414121114) 204 mg/dL 70-110 H Lab Interpretation (test code = Abnormal 21265-0) [facility] GLUCOSE (AUTOMATED)2019-11-05 01:48:00 Test Item Value Reference Range Interpretation Comments POCT GLU (test code = 2515977471) 227 mg/dL 70-110 H Lab Interpretation (test code = Abnormal 06181-4) [facility] GLUCOSE (AUTOMATED)2019-11-04 22:30:00 Test Item Value Reference Range Interpretation Comments POCT GLU (test code = 3606456869) 132 mg/dL 70-110 H Lab Interpretation (test code = Abnormal 47216-3) [facility] GLUCOSE (AUTOMATED)2019-11-04 17:24:00 Test Item Value Reference Range Interpretation Comments POCT GLU (test code = 0418248716) 213 mg/dL 70-110 H Lab Interpretation (test code = Abnormal 71554-8) [facility] GLUCOSE (AUTOMATED)2019-11-04 13:31:00 Test Item Value Reference Range Interpretation Comments POCT GLU (test code = 4574296825) 203 mg/dL 70-110 H Lab Interpretation (test code = Abnormal 95804-0) [facility] GLUCOSE (AUTOMATED)2019-11-04 12:03:00 Test Item Value Reference Range Interpretation Comments POCT GLU (test code = 8164184959) 213 mg/dL 70-110 H Lab Interpretation (test code = Abnormal 76949-8) [facility]2019-11-03 23:50:00 Test Item Value [...] Indicated Lab Interpretation Abnormal (test code = 49118-0) [facility] GLUCOSE (AUTOMATED)2019-11-03 23:28:00 Test Item Value Reference Range Interpretation Comments POCT GLU (test code = 7291240836) 273 mg/dL 70-110 H Lab Interpretation (test code = Abnormal 66115-8) [facility] ABDOMEN PELVIS W OHIONTND5278-27-79 18:01:52CT Abdomen and Pelvis with intravenous contrast. [...] Rhoades in the emergency room at 12:00. [facility], Radiant Results Inft User [...] Dr. Rhoades in the emergency room at 12:00.[facility] DIAUKMWSWI3673-24-97 16:23:00 Test Item Value Reference Range Interpretation Comments APPEARANCE (test code = Clear Clear 5782126272) COLOR (test code = Yellow Yellow 1073068587) PH (test code = 4.8-8.0 5755945205) SP GRAVITY (test code = 1.003-1.030 2633713694) GLU U QUAL (test code = 500 mg/dL Normal A 6853850043) BLOOD (test code = Negative Negative 6997445607) KETONES (test code = Negative Negative 4705644614) PROTEIN (test code = Negative Negative 2887-8) UROBILIN (test code = Normal Normal 7320473255) BILIRUBIN (test code = Negative Negative 6907875180) NITRITE (test code = Negative Negative 6174422353) LEUK BIANCA (test code = Negative Negative 7727347160) RBC/HPF (test code = See_Comment [Autom ated message] 1374209885) The system [employer] generated this result transmit yelena reference range : 0 - 3 HPF. The refe rence range was not u sed to interpret th is result as normal/abnormal . WBC/HPF (test code = See_Comment [Autom ated message] 9813054179) The system [employer] generated this result transmit yelena reference range : 0 - 5 HPF. The refe rence range was not u sed to interpret th is result as normal/abnormal . BACTERIA (test code = Negative Negative 2014751052) MUCOUS (test code = Slight Negative LPF A 9934926351) SQ EPITH (test code = <1 HPF 3288366874) Lab Interpretation (test Abnormal code = 49042-5) [facility] (34161)2019-11-03 16:04:00 Test Item Value Reference Range Interpretation Comments NA (test code = 137 mmol/L 135-145 1881159340) K (test code = 4.3 mmol/L 3.5-5 7578920006) CL (test code = 98 mmol/L 98-108 1166957582) CO2 TOTAL (test code = 28 mmol/L 23-31 1854528957) AGAP (test code = 2-16 1079037284) BUN (test code = 11 mg/dL 7-23 4225783637) GLUCOSE (test code = 356 mg/dL 70-110 H 7303877790) CREATININE (test code = 1.01 mg/dL 0.6-1.25 2226856244) TOTAL BILI (test code = 0.9 mg/dL 0.1-1.3 4856146059) CALCIUM (test code = 9.1 mg/dL 8.6-10.6 7582444548) T PROTEIN (test code = 7.5 g/dL 6.3-8.2 7874447728) ALBUMIN (test code = 4.7 g/dL 3.5-5 9115583465) ALK PHOS (test code = 73 U/L 34-122 1224987014) ALTv (test code = 38 U/L 5-50 1742-6) AST(SGOT) (test code = 25 U/L 13-40 3504891552) eGFR Calculation mL/min/1.73m2 (Non-) (test code = 6748780704) eGFR Calculation mL/min/1.73m2 () (test code = 4203415737) KATE (test code = KATE) Association of [...] tests). Lab Interpretation Abnormal (test code = 15054-2) [facility] 16:03:00 Test Item Value Reference Range Interpretation Comments LIPASE (test code = 4387388689) 48 U/L 0-220 Lab Interpretation (test code = Normal 71945-3) [facility] WITH ECNFWBMXXGYT4848-51-34 15:51:00 Test Item Value Reference Range Interpretation Comments WBC (test code = See_Comment H [Automated 6190-2) message] The system which generated this result transmit yelena reference range : 4.20 - 10.70 10*3/?L. The reference range was not used to interpret this result as normal/abnormal . RBC (test code = See_Comment H [Automated 589-8) message] The system which generated this result [...] (test code = 37.8 fL 38.5-51.6 L 13220-4) RDW-CV (test code = 12.7 % 12.1-15.4 788-0) PLT (test code = See_Comment [Automated 777-3) message] The system which generated this result transmit yelena reference range : 150 - 328 10*3/ ?L. The reference range was not u sed to interpret th is result as normal/abnormal . MPV (test code = 10.9 fL 9.8-13 14349-7) NRBC/100 WBC (test See_Comment [Automat ed code = 9942447732) message] The system which generated this result transmit yelena reference range : 0.0 - 10.0 /100 WBCs. The reference range was not used to interpret this result as normal/abnormal . NRBC x10^3 (test code <0.01 See_Comment [Auto mated = 9183486554) message] The system which generated this result transmit yelena reference range : 10*3/?L. The reference range was not used to interpret this result as normal/abnormal . GRAN MAT (NEUT) % 91.5 % (test code = 770-8) IMM GRAN % (test code 0.50 % = 5254916423) LYMPH % (test code = 3.9 % 736-9) MONO % (test code = 3.8 % 5905-5) EOS % (test code = 0.1 % 713-8) BASO % (test code = 0.2 % 706-2) GRAN MAT x10^3(ANC) 12.89 10*3/uL 1.99-6.95 H (test code = 9570711629) IMM GRAN x10^3 (test 0.07 10*3/uL 0-0.06 H code = 6747770795) LYMPH x10^3 (test code 0.55 10*3/uL 1.09-3.23 L = 731-0) MONO x10^3 (test code 0.54 10*3/uL 0.36-1.02 = 742-7) EOS x10^3 (test code = <0.03 0.06-0.53 L 711-2) BASO x10^3 (test code 0.03 10*3/uL 0.01-0.09 = 704-7) Lab Interpretation Abnormal (test code = 44746-7) [facility]"
[2022-08-01] MEDS ORDERED: dexAMETHasone 10 MG/ML VIAL ONE (17:00)
[2022-08-01] MEDS ORDERED: PROMETHAZINE INJ 25 MG/ML AMP ONE (17:00)
[2022-08-01] MEDS ORDERED: HYDROMORPHONE HCL 2 MG/ML inj ONE (17:00)
[2022-08-01] MEDS ORDERED: MECLIZINE HCL 12.5 MG TAB ONE (17:01)
--- NOTE | 2022-08-01 17:24 | EDPHYS ---
Physician Documentation [facility] Name: Chente Minaya Age: 52 yrs Sex: Male : 1970 Arrival Date: 08/01/2022 Time: 15:33 Bed 12 Private MD: BRYAN Physician Saurav Blount HPI: 08/01 15:53 This 52 yrs old Male presents to ER via Unassigned with complaints of Headache, cp Dizziness, Nausea. 15:53 The patient complains of pain to the top of head and forehead. The patient describes cp the headache as aching, constant. Onset: The symptoms/episode began/occurred this morning. Associated signs and symptoms: Pertinent positives: nausea, Photophobia Pertinent negatives: fever, paresthesias, weakness. Severity of symptoms: in the emergency department the pain is unchanged, despite home interventions. Headache History: The patient has had previous headaches and this one is similar to previous episodes. Historical: - Allergies: 15:55 Bactrim; kr3 15:55 mushroom; kr3 15:55 Mustard; kr3 15:55 PENICILLINS; kr3 15:55 Reglan; kr3 15:55 Sulfa (Sulfonamide Antibiotics); kr3 15:55 surgical steel; kr3 15:55 Tylenol-Codeine #3; kr3 15:55 Tylenol-Codeine #4; kr3 15:55 tramadol; kr3 - PMHx: 15:55 diabetes mellitus; kr3 - PSHx: 15:55 Appendectomy; kr3 - Immunization history:: Adult Immunizations not up to date. - Social history:: Smoking status: Patient/guardian denies using tobacco, the patient reports quitting approximately 25 years ago. ROS: 15:56 Constitutional: Negative for body aches, chills, fever. cp 15:56 Respiratory: Negative for cough, shortness of breath, wheezing. 15:56 Abdomen/GI: Positive for nausea. 15:56 Neuro: Positive for headache, Negative for altered mental status, speech changes. 15:56 Eyes: Positive for photophobia, Negative for discharge, redness. cp 15:56 ENT: Negative for drainage from ear(s), ear pain, sore throat, difficulty swallowing, difficulty handling secretions. 15:56 Cardiovascular: Negative for chest pain, palpitations. 15:56 Skin: Negative for rash. 15:56 All other systems are negative. cp Exam: 16:00 Constitutional: The patient appears in no acute distress, alert, awake, cp non-diaphoretic, non-toxic, well developed, well nourished, uncomfortable. 16:00 Head/Face: Normocephalic, atraumatic. cp 16:00 Eyes: Periorbital structures: appear normal, Pupils: equal, round, and reactive to light and accomodation, Extraocular movements: intact throughout, Conjunctiva: normal, no exudate, no injection, Sclera: no appreciated abnormality, Lids and lashes: appear normal, bilaterally. 16:00 ENT: External ear(s): are unremarkable, Nose: is normal, Mouth: Lips: moist, Oral mucosa: moist, Posterior pharynx: Airway: no evidence of obstruction, patent. 16:00 Neck: ROM/movement: is normal, no meningismus, no nuchal rigidity. 16:00 Chest/axilla: Inspection: normal. 16:00 Cardiovascular: Rate: normal, Rhythm: regular. 16:00 Respiratory: the patient does not display signs of respiratory distress, Respirations: normal, no use of accessory muscles, no retractions, labored breathing, is not present. 16:00 Abdomen/GI: Exam negative for discomfort, distension, guarding, Inspection: abdomen appears normal. 16:00 Neuro: Orientation: to person, place \T\ time. Mentation: is normal, Cerebellar function: Romberg testing is negative, Motor: moves all fours, strength is normal, Sensation: is normal, Gait: is steady. Vital Signs: 15:51 BP 132 / 90; Pulse 84; Resp 18; Temp 98.4; Pulse Ox 100% ; Weight 130.63 kg; Height 6 kr3 ft. 2 in. (187.96 cm); Pain 7/10; 15:51 Body Mass Index 36.98 (130.63 kg, 187.96 cm) kr3 MDM: 16:02 Patient medically screened. cp 16:55 Differential diagnosis: cluster headache, hypertensive headache, migraine, sinusitis, cp subarachnoid bleed, tension headache. 17:23 Data reviewed: vital signs, nurses notes. cp 17:23 Counseling: I had a detailed discussion with the patient and/or guardian regarding: the cp historical points, exam findings, and any diagnostic results supporting the discharge/admit diagnosis, the need for outpatient follow up, a neurologist, to return to the emergency department if symptoms worsen or persist or if there are any questions or concerns that arise at home. Response to treatment: the patient's symptoms have markedly improved after treatment, and as a result, I will discharge patient. Administered Medications: 17:04 Drug: Meclizine 25 mg Route: PO; tp1 17:33 Follow up: Response: Pain is unchanged, physician notified tp1 17:09 Drug: Phenergan (promethazine) 25 mg Route: IM; Site: right deltoid; tp1 17:33 Follow up: Response: Pain is unchanged, physician notified tp1 17:09 Drug: Dilaudid (HYDROmorphone) 2 mg Route: IM; Site: right deltoid; tp1 17:32 Follow up: Response: Pain is unchanged, physician notified tp1 17:10 Drug: Decadron (dexamethasone) 10 mg Route: IM; Site: right gluteus; tp1 17:32 Follow up: Response: Pain is unchanged, physician notified tp1 Disposition Summary: 08/01/22 17:23 Discharge Ordered Location: Home cp Problem: an acute exacerbation cp Symptoms: have improved cp Condition: Stable cp Diagnosis - Migraine without aura, not intractable cp Followup: cp - With: Private Physician - When: 1 - 2 days - Reason: Recheck today's complaints Discharge Instructions: - Discharge Summary Sheet cp - Migraine Headache, [id number] cp Forms: - Medication Reconciliation Form cp - Thank You Letter cp - Antibiotic Education cp - Prescription Opioid Use cp Addendum: 08/03/2022 08:37 Co-signature as Attending Physician, Saurav Blount MD I agree with the assessment and c ritchie plan of care. Signatures: Saurav Blount MD MD cha Page, Corey, PA PA cp Lin Hughes RN RN tp1 Susana Wiggins RN RN kr3
--- NOTE | 2022-08-01 17:24 | ER ---
Nurse's Notes [facility] Name: Chente Minaya Age: 52 yrs Sex: Male : 1970 Arrival Date: 08/01/2022 Time: 15:33 Bed 12 Private MD: Diagnosis: Migraine without aura, not intractable Presentation: 08/01 15:51 Chief complaint: Patient states: severe migraine that started today, I feel like I kr3 cannot function normal today. Coronavirus screen: Vaccine status: Patient reports being unvaccinated. Client denies travel out of the [place] in the last 14 days. Ebola Screen: Patient denies travel to an Ebola-affected area in the 21 days before illness onset. Initial Sepsis Screen: Does the patient meet any 2 criteria? No. Patient's initial sepsis screen is negative. Does the patient have a suspected source of infection? No. Patient's initial sepsis screen is negative. Risk Assessment: Do you want to hurt yourself or someone else? Patient reports no desire to harm self or others. Onset of symptoms was July 31, 2022. 15:51 Method Of Arrival: Ambulatory [facility] 15:51 Acuity: GILDARDO 3 kr3 Triage Assessment: 15:57 Headache History: The patient has had previous headaches and this one is similar to kr3 previous episodes. General: Appears in no apparent distress. uncomfortable, Behavior is calm, cooperative, appropriate for age. Pain: Complains of pain in headache. 16:23 Pain: Also complains of no other associated symptoms. tp1 Historical: - Allergies: 15:55 Bactrim; kr3 15:55 mushroom; kr3 15:55 Mustard; kr3 15:55 PENICILLINS; kr3 15:55 Reglan; kr3 15:55 Sulfa (Sulfonamide Antibiotics); kr3 15:55 surgical steel; kr3 15:55 Tylenol-Codeine #3; kr3 15:55 Tylenol-Codeine #4; kr3 15:55 tramadol; kr3 - PMHx: 15:55 diabetes mellitus; kr3 - PSHx: 15:55 Appendectomy; kr3 - Immunization history:: Adult Immunizations not up to date. - Social history:: Smoking status: Patient/guardian denies using tobacco, the patient reports quitting approximately 25 years ago. Screenin:23 Abuse screen: Denies threats or abuse. Denies injuries from another. Nutritional tp1 screening: No deficits noted. Tuberculosis screening: No symptoms or risk factors identified. Fall Risk None identified. Assessment: 16:22 General: Appears in no apparent distress. uncomfortable, Behavior is calm, cooperative. tp1 Pain: Complains of pain in forehead Pain does not radiate. Pain currently is 10 out of 10 on a pain scale. Pain began 1 day ago. Neuro: Level of Consciousness is awake, alert, obeys commands, Oriented to person, place, time, situation. Neuro: Reports dizziness, headache photophobia Denies blurred vision. Neuro: Pupils are PERRLA. Cardiovascular: Patient's skin is warm and dry. Respiratory: Airway is patent Respiratory effort is even, unlabored. GI: Abdomen is obese, Reports nausea, Patient currently denies diarrhea, vomiting. : No signs and/or symptoms were reported regarding the genitourinary system. EENT: No signs and/or symptoms were reported regarding the EENT system. Derm: Skin is pink, warm \T\ dry. Musculoskeletal: Circulation, motion, and sensation intact. 17:13 Reassessment: Patient appears in no apparent distress at this time. No changes from tp1 previously documented assessment. Patient and/or family updated on plan of care and expected duration. Pain level reassessed. Patient is alert, oriented x 3, equal unlabored respirations, skin warm/dry/pink. Vital Signs: 15:51 BP 132 / 90; Pulse 84; Resp 18; Temp 98.4; Pulse Ox 100% ; Weight 130.63 kg; Height 6 kr3 ft. 2 in. (187.96 cm); Pain 7/10; 15:51 Body Mass Index 36.98 (130.63 kg, 187.96 cm) kr3 ED Course: 15:33 Patient arrived in ED. am2 15:40 Saurav Burgess PA is PHCP. cp 15:40 Saurav Blount MD is Attending Physician. cp 15:55 Triage completed. kr3 15:58 Arm band placed on left wrist. kr3 16:22 Lin Hughes, CORA is Primary Nurse. tp1 16:23 Patient has correct armband on for positive identification. Bed in low position. Call tp1 light in reach. 16:23 No provider procedures requiring assistance completed. tp1 17:33 Patient did not have IV access during this emergency room visit. tp1 Administered Medications: 17:04 Drug: Meclizine 25 mg Route: PO; tp1 17:33 Follow up: Response: Pain is unchanged, physician notified tp1 17:09 Drug: Phenergan (promethazine) 25 mg Route: IM; Site: right deltoid; tp1 17:33 Follow up: Response: Pain is unchanged, physician notified tp1 17:09 Drug: Dilaudid (HYDROmorphone) 2 mg Route: IM; Site: right deltoid; tp1 17:32 Follow up: Response: Pain is unchanged, physician notified tp1 17:10 Drug: Decadron (dexamethasone) 10 mg Route: IM; Site: right gluteus; tp1 17:32 Follow up: Response: Pain is unchanged, physician notified tp1 Medication: 16:23 VIS not applicable for this client. tp1 Outcome: 17:23 Discharge ordered by . chadd 17:33 Discharged to home ambulatory. tp1 17:33 Condition: good 17:33 Discharge instructions given to patient, Instructed on discharge instructions, follow up and referral plans. Demonstrated understanding of instructions, follow-up care. 17:33 Patient left the ED. tp1 Signatures: Saurav Burgess PA PA cp Moreno, Amanda am2 Parker, Tiffany, RN RN tp1 Susana Wiggins RN RN kr3
[2022-08-01 18:06] VITALS: BP 132/90; TEMP 98.4; O2SAT 100
== END 2022-08-01 17:33 | disposition home or self-care (01) ==
LOC: ER 15:28
DX: G43.009 Migraine without aura, not intractable, without status migrainosus (principal); E11.9 Type 2 diabetes mellitus without complications
CPT/HCPCS: 96372; 99283; J2550; J8597; J1170; J1100

== ENCOUNTER 2022-08-10 14:37 | Emergency (ER) | payer OTHER ==
--- OUTSIDE RECORDS SUMMARY | 2022-08-10 14:43 | XMS REPORT | Continuity of Care Document ---
:1970 Author Organization [facility] t Address [address] [place] [address] Care Team Providers Name Role Phone Pcp, Patient Does Not Have A Primary Care Physician [id number] YADIEL HAQ Attending Clinician Unavailable Yadiel Haq MD Attending Clinician DAVID NOVOA Attending Clinician Unavailable ALEXIS DAWN Attending Clinician Unavailable Alexis Dawn MD Attending Clinician STEPHANIE ONEAL Attending Clinician Unavailable Stephanie Adamson Attending Clinician Doctor Unassigned, [place] Attending Clinician Unavailable SILVINA SUN Attending Clinician [...] Effective Date Expiration Date [employer] [place] [id number] 2021 EMPLOYEE-[employer] 00:00:00 Problems Condition Condition Condition [...] of Current smoker University of tobacco use [facility] Exposure to 2022-07-02 2022-07-12 Not sure University SARS-CoV-2 00:00:00 20:23:00 [facility] (event) Branch Alcohol intake 2022-07-12 2022-07-12 Current drinker Unive rsity of 00:00:00 00:00:00 of alcohol [place] [facility] (finding) Branch History SDOH 2019-11-04 2019-11-04 5 University o f Financial 00:00:00 00:00:00 [facility] Tobacco use and 2019-11-03 2019-11-03 Smokeless tobacco Un iversity of exposure 00:00:00 00:00:00 non-user [facility] Sex Assigned At [birth year] Universit y of 00:00:00 00:00:00 [facility] Smoking Status Start Date Stop Date Source Ex-smoker 2019-11-03 00:00:00 2019-11-03 00:00:00 [facility] Medications Ordered Filled Start [...] On Medical Fri Branch 06/21/22 at 1215, MANDEEP divalproex 2020-0 Yes [id number] 250mg Take 1 Univers ER 250 mg 8-10 tablet by ity o f 24 hr 00:00: mouth 2 [place] tablet 00 (two) Medical times Branch daily. divalproex 2020-0 Yes [id number] 250mg Take 1 Univers ER 250 mg 8-10 tablet by ity o f 24 hr 00:00: mouth 2 [place] tablet 00 (two) Medical times Branch daily. divalproex 2020-0 Yes [id number] 250mg Take 1 Univers ER 250 mg 8-10 tablet by ity o f 24 hr 00:00: mouth 2 [place] tablet 00 (two) Medical times Branch daily. divalproex 2020-0 Yes [id number] 250mg Take 1 Univers ER 250 mg 8-10 tablet by ity o f 24 hr 00:00: mouth 2 [place] tablet 00 (two) Medical times Branch daily. divalproex 2020-0 Yes [id number] 250mg Take 1 Univers ER 250 mg 8-10 tablet by ity o f 24 hr 00:00: mouth 2 [place] tablet 00 (two) Medical times Branch daily. divalproex 2020-0 Yes [id number] 250mg Take 1 Univers ER 250 mg [...] 1,000 mL 00 :00 IV Medical Infusion, [place] ONCE, 1 dose, 02/19/20 at 1800, STAT [...] 1,000 mL 00 :00 IV Medical Infusion, [place] ONCE, 1 dose, 02/19/20 at 1645, STAT [...] Sat Medic al 900 mg/50 02/19/20 at [facility] h mL IV 1645, 50 [...] Branch 1630, MANDEEP traMADol 50 2019-0 Yes [id number] 50mg Take 1 Univers mg tablet 6-06 tablet by ity o f 00:00: mouth [place] 00 every 6 Medical (six) Branch hours as needed for Pain (scale 4-6). traMADol 50 2019-0 Yes [id number] 50mg Take 1 Univers mg tablet 6-06 tablet by ity o f 00:00: mouth [place] 00 every 6 Medical (six) Branch hours as needed for Pain (scale 4-6). traMADol 50 2019-0 Yes [id number] 50mg Take 1 Univers mg tablet 6-06 tablet by ity o f 00:00: mouth [place] 00 every 6 Medical (six) Branch hours as needed for Pain (scale 4-6). traMADol 50 2019-0 Yes [id number] 50mg Take 1 Univers mg tablet 6-06 tablet by ity o f 00:00: mouth [place] 00 every 6 Medical (six) Branch hours as needed for Pain (scale 4-6). traMADol 50 2020-0 Yes [id number] 50mg Take 1 Univers mg tablet 6-06 tablet by ity o f 00:00: mouth [place] 00 every 6 Medical (six) Branch hours as needed for Pain (scale 4-6). traMADol 50 2020-0 Yes [id number] 50mg Take 1 Univers mg tablet 6-06 tablet by ity o f 00:00: mouth [place] 00 every 6 Medical (six) Branch hours as needed for Pain (scale 4-6). traMADol 50 2020-0 Yes [id number] 50mg Take 1 Univers mg tablet 6-06 tablet by ity o f 00:00: mouth [place] 00 every 6 Medical (six) Branch hours as needed for Pain (scale 4-6). traMADol 50 2020-0 Yes [id number] 50mg Take 1 Univers mg tablet 6-06 tablet by ity o f 00:00: mouth [place] 00 every 6 Medical (six) Branch hours as needed for Pain (scale 4-6). traMADol 50 2020-0 Yes [id number] 50mg Take 1 Univers mg tablet 6-06 tablet by ity o f 00:00: mouth [place] 00 every 6 Medical (six) Branch hours as needed for Pain (scale 4-6). traMADol 50 2020-0 Yes [id number] 50mg Take 1 Univers mg tablet 6-06 tablet by ity o f 00:00: mouth [place] 00 every 6 Medical (six) Branch hours as needed for Pain (scale 4-6). clindamycin 2019-0 2020- No [id number] 450mg Take 3 Univers 150 mg 6- 06-17 capsules ity of capsule 00:00: 04:59 by mouth 3 [place] as 00 :00 (three) Medical times Branch daily for 10 days. glipiZIDE 2020-0 Yes [id number] 10mg Take 1 Un grabiel 10 mg 2-22 tablet by ity of tablet 00:00: mouth 2 [place] 00 (two) Medical times Branch daily before breakfast and dinner. HYDROcodone 2020-0 Yes [id number] 1{tbl} Take 1 Univers -acetaminop 2-22 tablet by ity of hen 5-325 00:00: mouth [place] mg tablet 00 every 6 Medical (six) Branch hours as needed for Pain (scale 7-10). glipiZIDE 2020-0 Yes [id number] 10mg Take 1 Un grabiel 10 mg 2-22 tablet by ity of tablet 00:00: mouth 2 [place] 00 (two) Medical times Branch daily before breakfast and dinner. HYDROcodone 2020-0 Yes [id number] 1{tbl} Take 1 Univers -acetaminop 2-22 tablet by ity of hen 5-325 00:00: mouth [place] mg tablet 00 every 6 Medical (six) Branch hours as needed for Pain (scale 7-10). glipiZIDE 2020-0 Yes [id number] 10mg Take 1 Un grabiel 10 mg 2-22 tablet by ity of tablet 00:00: mouth 2 [place] 00 (two) Medical times Branch daily before breakfast and dinner. HYDROcodone 2020-0 Yes [id number] 1{tbl} Take 1 Univers -acetaminop 2-22 tablet by ity of hen 5-325 00:00: mouth [place] mg tablet 00 every 6 Medical (six) Branch hours as needed for Pain (scale 7-10). glipiZIDE 2020-0 Yes [id number] 10mg Take 1 Un grabiel 10 mg 2-22 tablet by ity of tablet 00:00: mouth 2 [place] 00 (two) Medical times Branch daily before breakfast and dinner. HYDROcodone 2020-0 Yes [id number] 1{tbl} Take 1 Univers -acetaminop 2-22 tablet by ity of hen 5-325 00:00: mouth [place] mg tablet 00 every 6 Medical (six) Branch hours as needed for Pain (scale 7-10). glipiZIDE 2020-0 Yes [id number] 10mg Take 1 Un grabiel 10 mg 2-22 tablet by ity of tablet 00:00: mouth 2 [place] 00 (two) Medical times Branch daily before breakfast and dinner. HYDROcodone 2020-0 Yes [id number] 1{tbl} Take 1 Univers -acetaminop 2-22 tablet by ity of hen 5-325 00:00: mouth [place] mg tablet 00 every 6 Medical (six) Branch hours as needed for Pain (scale 7-10). glipiZIDE 2020-0 Yes [id number] 10mg Take 1 Un grabiel 10 mg 2-22 tablet by ity of tablet 00:00: mouth 2 [place] 00 (two) Medical times Branch daily before breakfast and dinner. HYDROcodone 2020-0 Yes [id number] 1{tbl} Take 1 Univers -acetaminop 2-22 tablet by ity of hen 5-325 00:00: mouth [place] mg tablet 00 every 6 Medical (six) Branch hours as needed for Pain (scale 7-10). glipiZIDE 2020-0 Yes [id number] 10mg Take 1 Un grabiel 10 mg 2-22 tablet by ity of tablet 00:00: mouth 2 [place] 00 (two) Medical times Branch daily before breakfast and dinner. HYDROcodone 2020-0 Yes [id number] 1{tbl} Take 1 Univers -acetaminop 2-22 tablet by ity of hen 5-325 00:00: mouth [place] mg tablet 00 every 6 Medical (six) Branch hours as needed for Pain (scale 7-10). glipiZIDE 2020-0 Yes [id number] 10mg Take 1 Un grabiel 10 mg 2-22 tablet by ity of tablet 00:00: mouth 2 [place] 00 (two) Medical times Branch daily before breakfast and dinner. HYDROcodone 2020-0 Yes [id number] 1{tbl} Take 1 Univers -acetaminop 2-22 tablet by ity of hen 5-325 00:00: mouth [place] mg tablet 00 every 6 Medical (six) Branch hours as needed for Pain (scale 7-10). glipiZIDE 2020-0 Yes [id number] 10mg Take 1 Un grabiel 10 mg 2-22 tablet by ity of tablet 00:00: mouth 2 [place] 00 (two) Medical times Branch daily before breakfast and dinner. glipiZIDE 2020-0 Yes [id number] 10mg Take 1 Un grabiel 10 mg 2-22 tablet by ity of tablet 00:00: mouth 2 [place] 00 (two) Medical times Branch daily before breakfast and dinner. HYDROcodone 2020-0 Yes [id number] 1{tbl} Take 1 Univers -acetaminop 2-22 tablet by ity of hen 5-325 00:00: mouth [place] mg tablet 00 every 6 Medical (six) Branch hours as needed for Pain (scale 7-10). HYDROcodone 2020-0 Yes [id number] 1{tbl} Take 1 Univers -acetaminop 2-22 tablet by ity of hen 5-325 00:00: mouth [place] mg tablet 00 every 6 Medical (six) Branch hours as needed for Pain (scale 7-10). glipiZIDE 2020-0 Yes [id number] 10mg Take 1 Un grabiel 10 mg 2-22 tablet by ity of tablet 00:00: mouth 2 [place] 00 (two) Medical times Branch daily before breakfast and dinner. HYDROcodone 2020-0 Yes [id number] 1{tbl} Take 1 Univers -acetaminop 2-22 tablet by ity of hen 5-325 00:00: mouth [place] mg tablet 00 every 6 Medical (six) Branch hours as needed for Pain (scale 7-10). glipiZIDE 2020-0 Yes [id number] 10mg Take 1 Un grabiel 10 mg 2-22 tablet by ity of tablet 00:00: mouth 2 [place] 00 (two) Medical times Branch daily before breakfast and dinner. HYDROcodone 2020-0 Yes [id number] 1{tbl} Take 1 Univers -acetaminop 2-22 tablet by ity of hen 5-325 00:00: mouth [place] mg tablet 00 every 6 Medical (six) Branch hours as needed for Pain (scale 7-10). glipiZIDE 2020-0 Yes [id number] 10mg Take 1 Un grabiel 10 mg 2-22 tablet by ity of tablet 00:00: mouth 2 [place] 00 (two) Medical times Branch daily before breakfast and dinner. HYDROcodone 2020-0 Yes [id number] 1{tbl} Take 1 Univers -acetaminop 2-22 tablet by ity of hen 5-325 00:00: mouth [place] mg tablet 00 every 6 Medical (six) Branch hours as needed for Pain (scale 7-10). ciprofloxac 2020-0 2020- No [id number] 500mg Take 1 Univers in HCl 500 -04 12-01 tablet by ity of mg tablet 00:00: 05:59 mouth [place] 00 :00 every 12 Medical (twelve) Branch hours for 7 days. metroNIDAZO 2020-0 2020- No [id number] 500mg Take 1 Univers LE 500 mg [...] IV Push, ity of (PF)) 21:40: Q6HPRN, [place] injection 4 10 Starting Medi kyrie mg Wed Branch 11/03/19 at 1540, Until Discontinu ed, Routine, Nausea and Vomiting (N/V) metroNIDAZO 2019-0 2020- No 500mg 500 mg, IV Univers LE (FLAGYL 11-03 Piggyback, it y of I.V.) 19:30: 19:55 ONCE, 1 [place] Piggyback 00 :00 dose, Wed Medic al [...] Branch 1100, MANDEEP cyclobenzap 2018-09 2020- No [id number] 5mg Take 1 Univers rine 5 mg 11-06 9100 tablet by ity of tablet 00:00: 00:00 mouth 3 [place] 00 :00 (three) Medical times Branch daily. traMADol 2018-09- No [id number] 50mg Take 1 Univers (ULTRAM) 50 11-06 [...] 02:00:00 165 mm[Hg] Univer sity of pressure [facility] Diastolic blood 2022-07-13 02:00:00 96 mm[Hg] [facility] Heart rate 2022-07-13 02:00:00 88 /min Universi ty of [place] [facility] Respiratory rate 2022-07-13 02:00:00 18 /min Univ ersity of [place] [facility] Oxygen saturation in 2022-07-13 02:00:00 98 /min University of Arterial blood by [place] [employer] kyrie Pulse oximetry Branch Body temperature 2022-07-13 01:48:00 37 Leonor Univ ersity of [place] [facility] Body height 2022-07-13 01:25:00 188 cm Universi ty of [place] [facility] Body weight 2022-07-13 01:25:00 129.275 kg Universi ty of [place] [facility] BMI 2022-07-13 01:25:00 36.59 kg/m2 Universi ty of [place] [facility] Systolic blood 2022-07-07 02:21:33 135 mm[Hg] Univer sity of pressure [place] [facility] Diastolic blood 2022-07-07 02:21:33 81 mm[Hg] Unive rsity of pressure [place] [facility] Heart rate 2022-07-07 02:21:33 93 /min Universi ty of [place] [facility] Respiratory rate 2022-07-07 02:21:33 18 /min Univ ersity of [place] [facility] Oxygen saturation in 2022-07-07 02:21:33 96 /min University of Arterial blood by [place] [employer] kyrie Pulse oximetry Branch Body temperature 2022-07-07 00:44:00 37 Leonor Univ ersity of [place] [facility] Body height 2022-07-07 00:44:00 188 cm Universi ty of [place] [facility] Body weight 2022-07-07 00:44:00 129.275 kg Universi ty of [place] [facility] BMI 2022-07-07 00:44:00 36.59 kg/m2 [...] 99 /min University of Arterial blood by [place] [employer] kyrie Pulse oximetry Branch Body temperature 2022-06-21 16:02:00 37.06 Leonor Univ ersity of [place] [facility] [place] Body height 2022-06-21 16:02:00 188 cm Universi ty of [place] [facility] [place] Body weight 2022-06-21 16:02:00 127.007 kg Universi ty of [place] [facility] BMI 2022-06-21 16:02:00 35.95 kg/m2 Universi ty of [facility] Systolic blood 2020-04-24 13:23:00 129 mm[Hg] Univer sity of pressure [place] [facility] [place] Diastolic blood 2020-04-24 13:23:00 81 mm[Hg] Unive rsity of pressure [facility] Heart rate 2020-04-24 13:23:00 82 /min Universi ty of [place] [facility] [place] Body weight 2020-04-24 13:23:00 138.075 kg Universi ty of [place] [facility] [place] BMI 2020-04-24 13:23:00 39.08 kg/m2 Universi ty of [facility] Systolic blood 2020-04-24 13:23:00 129 mm[Hg] Univer sity of pressure [place] [facility] Diastolic blood 2020-04-24 13:23:00 81 mm[Hg] Unive rsity of pressure [place] [facility] [place] Heart rate 2020-04-24 13:23:00 82 /min Universi ty of [place] [facility] [place] Body weight 2020-04-24 13:23:00 138.075 kg Universi ty of [place] [facility] BMI 2020-04-24 13:23:00 39.08 kg/m2 Universi ty of [facility] Branch Systolic blood 2020-04-07 03:51:00 118 mm[Hg] Univer sity of pressure [facility] Diastolic blood 2020-04-07 03:51:00 68 mm[Hg] Unive rsity of pressure [place] [facility] [place] Heart rate 2020-04-07 03:51:00 92 /min Universi ty of [facility] Branch Respiratory rate 2020-04-07 03:51:00 16 /min Univ ersity of [facility] Oxygen saturation in 2020-04-07 03:51:00 100 /min [facility] Arterial blood by [facility] Pulse oximetry Branch Body temperature 2020-04-07 03:40:00 36.44 Leonor Univ ersity of [place] [facility] [place] Body weight 2020-04-07 00:07:00 129.275 kg Universi ty of [place] [facility] BMI 2020-04-07 00:07:00 36.59 kg/m2 Universi ty of [place] [facility] Heart rate 2020-02-19 23:10:00 105 /min Universi ty of [place] [facility] Respiratory rate 2020-02-19 23:10:00 29 /min Univ ersity of [facility] Branch Oxygen saturation in 2020-02-19 23:10:00 94 /min University of Arterial blood by [place] [employer] kyrie Pulse oximetry Branch Systolic blood 2020-02-19 23:00:00 127 mm[Hg] Univer sity of pressure [place] [facility] Diastolic blood 2020-02-19 23:00:00 78 mm[Hg] Unive rsity of pressure [facility] Body temperature 2020-02-19 22:04:10 37.33 Leonor Univ ersity of [facility] Body height 2020-02-19 19:56:00 188 cm Universi ty of [place] [facility] [place] Body weight 2020-02-19 19:56:00 129.275 kg Universi ty of [place] [facility] BMI 2020-02-19 19:56:00 36.59 kg/m2 Universi ty of [place] [facility] Systolic blood 2019-11-06 17:14:00 138 mm[Hg] Univer sity of pressure [facility] Branch Diastolic blood 2019-11-06 17:14:00 88 mm[Hg] Unive rsity of pressure [facility] Heart rate 2019-11-06 17:14:00 102 /min Universi ty of [facility] Respiratory rate 2019-11-06 17:14:00 18 /min Univ ersity of [facility] Oxygen saturation in 2019-11-06 17:14:00 96 /min University of Arterial blood by [facility] kyrie Pulse oximetry Branch Body temperature 2019-11-06 14:00:00 36.72 Leonor Univ ersity of [place] [facility] Body height 2019-11-03 23:00:00 188 cm Universi ty of [place] [facility] Body weight 2019-11-03 15:22:00 129.275 kg Universi ty of [facility] Branch BMI 2019-11-03 15:22:00 36.58 kg/m2 Universi ty of [facility] Branch Procedures Procedure Date / Time Performing Clinician Source Performed CONSENT/REFUSAL FOR 2022-07-13 01:17:58 Doctor Unassigned, No Un [facility] DIAGNOSIS AND TREATMENT Name Medical Branch CONSENT/REFUSAL FOR 2022-07-07 00:35:11 Doctor Unassigned, No Un [facility]ity of [place] DIAGNOSIS AND TREATMENT Name Medical Branch CT HEAD WO CONTRAST 2022-06-21 17:34:58 Stephanie Oneal [facility] Medical [place] XR CHEST 1 VW 2022-06-21 16:37:11 Stephanie Oneal [facility] TROPONIN I 2022-06-21 16:28:00 Stephanie Oneal [facility] BASIC METABOLIC PANEL 2022-06-21 16:28:00 Stephanie Oneal [facility] (NA, K, CL, CO2, Medical Branch GLUCOSE, BUN, CREATININE, CA) CBC WITH DIFF 2022-06-21 16:28:00 Stephanie Oneal [facility] NOTICE OF PRIVACY 2022-06-21 15:51:50 [facility], No [facility] CONSENT/REFUSAL FOR 2022-06-21 15:51:34 Doctor Unassigned, No Un iversity of [place] DIAGNOSIS AND TREATMENT Name Medical [place] EGD (ENDO) 2020-04-07 02:31:21 Lisa Armendariz [facility] COMP. METABOLIC PANEL 2020-04-07 01:52:00 Yazmin Apple [facility] ([id number]) Medical Branch CBC WITH DIFF 2020-04-07 01:52:00 Yazmin Apple [facility] XR NECK SOFT TISSUE 2020-04-07 00:57:29 Yazmin Apple [facility] COVID-19 (ID NOW RAPID 2020-04-07 00:40:00 Yazmin Apple [facility] TESTING) Medical Branch NOTICE OF PRIVACY 2020-04-06 23:57:19 Doctor Unassigned, No [facility] Branch CONSENT/REFUSAL FOR 2020-04-06 23:57:05 Doctor Unassigned, No Un iversity of [place] DIAGNOSIS AND TREATMENT Name Medical Branch REFERRAL- 2020-03-29 05:01:00 Doctor Unassigned, No [facility] REQUEST/RESPONSE Name Medical Branch POCT GLUCOSE 2020-02-19 23:05:00 Stephanie Oneal [facility] (AUTOMATED) Medical Branch POCT GLUCOSE 2020-02-19 21:52:00 Stephanie Oneal [facility] (AUTOMATED) Medical Branch COMP. METABOLIC PANEL 2020-02-19 20:47:00 Stephanie Oneal [facility] ([id number]) Medical Branch CBC WITH DIFFERENTIAL 2020-02-19 20:47:00 Stephanie Oneal [facility] Medical Branch COVID-19 (ID NOW RAPID 2020-02-19 20:47:00 Stephanie Oneal [facility] TESTING) Medical Branch NOTICE OF PRIVACY 2020-02-19 19:53:34 Doctor Unassigned, No [facility] PRACTICES Name Medical Branch CONSENT/REFUSAL FOR 2020-02-19 19:53:23 Doctor Unassigned, No [facility] DIAGNOSIS AND TREATMENT Name Medical Branch POCT GLUCOSE 2019-11-06 13:36:00 [facility] (AUTOMATED) Medical Branch POCT GLUCOSE 2019-11-06 01:48:00 [facility] (AUTOMATED) Medical Branch POCT GLUCOSE 2019-11-05 22:16:00 [facility] (AUTOMATED) Medical Branch POCT GLUCOSE 2019-11-05 17:26:00 [facility] (AUTOMATED) Medical Branch POCT GLUCOSE 2019-11-05 13:21:00 [facility] (AUTOMATED) Medical Branch BASIC METABOLIC PANEL 2019-11-05 10:28:[facility], [facility], CO2, Medical Branch GLUCOSE, BUN, CREATININE, CA) CBC WITH DIFFERENTIAL 2019-11-05 10:28:[facility]SE 2019-11-05 10:12:00 [facility] (AUTOMATED) Medical Branch POCT GLUCOSE 2019-11-05 06:12:00 [facility] (AUTOMATED) Medical Branch POCT GLUCOSE 2019-11-05 01:41:00 [facility] (AUTOMATED) Medical Branch POCT GLUCOSE 2019-11-04 22:26:00 [facility] (AUTOMATED) Medical Branch POCT GLUCOSE 2019-11-04 17:20:00 [facility] (AUTOMATED) Medical Branch POCT GLUCOSE 2019-11-04 13:21:00 [facility] (AUTOMATED) Medical Branch POCT GLUCOSE 2019-11-04 11:57:00 [facility] (AUTOMATED) Medical Branch POCT GLUCOSE 2019-11-04 05:30:00 [facility] (AUTOMATED) Medical Branch POCT GLUCOSE 2019-11-04 02:17:00 [facility] (AUTOMATED) Medical Branch POCT GLUCOSE 2019-11-03 23:23:00 [facility] (AUTOMATED) Medical Branch POCT GLUCOSE 2019-11-03 21:41:00 [facility] (AUTOMATED) [facility] SURGICAL PATHOLOGY EXAM 2019-11-03 20:26:00 [facility] 2019-11-03 19:24:00 Yonatan Lund [facility] APPENDECTOMY [facility] CT ABDOMEN PELVIS W 2019-11-03 17:41:22 Ervin Rhoades [facility] CONTRAST [facility] Branch LIPASE 2019-11-03 15:35:00 Jf [facility] COMP. METABOLIC PANEL 2019-11-03 15:35:00 Ervin Rhoades [facility] ([id number]) [facility] CBC WITH DIFFERENTIAL 2019-11-03 15:35:00 Jf Ervin [facility] GLYCOSYLATED HEMOGLOBIN 2019-11-03 15:35:00 Stephanie Pichardo [facility] (A1C) [facility] URINALYSIS 2019-11-03 15:35:00 [facility] Start End Encounter Admission Attending Care Care Encounter Source Date/Time Date/Time Type Type Clinicians Facility Department ID 2022-07-12 2022-07-12 Emergency X TAVO [facility] ERT [id number] Univers 20:32:00 22:17:00 YADIEL osman [facility] 2022-07-12 2022-07-12 Emergency [facility] [id number] Univers 20:32:00 22:17:00 Yadiel PATEL [id number] i ty of [place] [id number] [facility] [id number] [address] 2022-07-12 2022-07-12 Outpatient Tanja NOVOA, [facility] [id number] Univers 08:40:00 08:40:00 DAVID victor manuel [facility] 2022-07-06 2022-07-06 [facility] [id number] Univers 19:49:00 23:18:00 ALEXIS victor manuel [facility] 2022-07-06 2022-07-06 Emergency [facility] [id number] Univers 19:49:00 23:18:00 Alexis Monroy AMANDA [id number] ity of [place] 4.2.7.[address] [place] [id number] 2022-06-21 2022-06-21 [facility] [id number] Univers 11:04:00 13:54:00 STEPHANIE [facility] 2022-06-21 2022-06-21 [facility] [id number] Univers 11:04:00 13:54:00 Stephanie Monroy AMANDA [id number] i ty of [place] [id number] [facility] [id number] [address] 2022-06-21 2022-06-21 Orders Doctor NAREN [id number] Univers 00:00:00 00:00:00 Only Unassigned, MIRI [id number] ity of [place] [facility] [id number] [facility] [id number] [address] 2020-08-15 2020-08-15 Outpatient [facility] [id number] Univers 10:00:00 10:00:00 SILVINA osman [facility] 2020-04-24 2020-04-24 Office Dolores, [facility] [id number] 08:15:37 08:49:56 Visit Norberto Kothari Amanda [id number] [place] [id number] Professio [id number] nal [address] [place] [address] 2020-04-24 2020-04-24 Office Dolores [facility] [id number] Univers 08:15:37 08:49:56 Visit Norberto Patel [id number] ity of [place] [id number] [place] [id number] Mn dical [address] 2020-04-24 2020-04-24 Outpatient R NORBERTO BERNAL [facility] [id number] Univers 08:00:00 08:00:00 NORBERTO BERNAL ity of [facility] 2020-04-06 2020-04-06 Emergency Yazmin Apple [facility] 1.2.840.114 [id number] Univers 19:12:13 22:55:00 Melanie Patel 350.1.13.10 i ty of [place].2.[place] [phone] [address] 2020-04-06 2020-04-06 Emergency X Yazmin APPLE [facility] ERT [id number] Univers 19:12:13 19:12:13 ity of [facility] 2020-04-06 2020-04-06 Orders Doctor SNEED 1.2.840.114 [id number] Univers 00:00:00 00:00:00 Only Unassigned, MIRI 350.1.13.10 ity of [facility] 4.2.7.2.686 Danie as [phone] [address] 2020-03-29 2020-03-29 Orders Doctor SNEED 1.2.840.114 [id number] Univers 00:00:00 00:00:00 Only Unassigned, MIRI 350.1.13.10 ity of [facility] 4.2.7.2.686 Danie as [phone] [address] 2020-02-19 2020-02-19 Emergency Jm [facility] [id number] [id number] Univers 15:07:18 19:22:00 Stephanie Patel 350.1.13.10 i ty of [place] 4.2.7.2.686 [place] [facility] [phone] [facility] [address] 2020-02-19 2020-02-19 Emergency X [facility] ERT [id number] Univers 14:53:00 14:53:00 ity of [facility] 2020-02-19 2020-02-19 Orders Doctor NAREN 1.2.840.114 [id number] Univers 00:00:00 00:00:00 Only Unassigned, MIRI 350.1.13.10 ity of [place] [facility] 4.2.7.2.686 Danie [phone] [facility] [address] 2019-11-08 2019-11-08 Transition Faraz Nicolas 1.2.840.114 [id number] Univers 00:00:00 00:00:00 of Care Hortensia De Jesus 350.1.13.10 ity of [place] 4.2.7.2.686 [facility] [phone] [facility] [address] 2019-11-03 2019-11-06 Hospital Ervin Rhoades [facility] 1.2.840.1 [id number] Univers 09:25:15 12:00:00 Encounter Luis Arshad 350.1.13.10 ity of [place] 4.2.7.2.686 [place] [facility] [phone] [facility] [address] 2019-11-03 2019-11-06 Inpatient X PAVITHRA CTARIANA TIMOTEO [id number] Univers 09:25:15 12:00:00 [facility] Test Description Test Time Test Comments Results Result Comments Source TROPONIN I 2022-06-21 17:02:55 Test Item Value Reference Range Interpretation Comme nts TROPONIN I (test code = 0.004 ng/mL See_Comment [Au tomated message] The [id number]) system which ge nerated this result tra [...] biotin. Lab Interpretation Normal (test code = 95948-0) [facility] METABOLIC PANEL (NA, K, CL, CO2, GLUCOSE, BUN, CREATININE, CA)2022-06-21 16:50:52 Test Item Value Reference Range Interpretation Comments NA (test code = 137 mmol/L 135-145 5625778852) K (test code = 4.6 mmol/L 3.5-5 3214694973) CL (test code = 97 mmol/L 98-108 L 6562572344) CO2 TOTAL (test code = 30 mmol/L 23-31 1327945541) AGAP (test code = 2-16 2158326122) BUN (test code = 11 mg/dL 7-23 9724389112) GLUCOSE (test code = 214 mg/dL 70-110 H 0106652243) CREATININE (test code = 1.16 mg/dL 0.6-1.25 3831977707) CALCIUM (test code = 8.5 mg/dL 8.6-10.6 L 5570049915) eGFR (test code = mL/min/1.73m2 8129444917) KATE (test code = KATE) Association of [...] tests). Lab Interpretation Abnormal (test code = 38951-7) [facility] WITH [id number] 16:39:51 Test Item Value Reference Range Interpretation Comments WBC (test code = See_Comment [Automated 6490-2) message] The sy stem which generated this result transmitted reference range : 4.20 - 10.70 10*3/?L. The reference range was not used to interpret this result as normal/abnormal . RBC (test code = See_Comment H [Automated 549-8) message] The sy stem which generated this [...] (test code = 37.0 fL 38.5-51.6 L 26888-1) RDW-CV (test code = 13.2 % 12.1-15.4 788-0) PLT (test code = See_Comment [Automated 967-3) message] The sy stem which generated this result transmitted reference range : 150 - 328 10*3/ ?L. The reference r jevon was not used to interpret this result as normal/abnormal . MPV (test code = 11.1 fL 9.8-13 39445-1) NRBC/100 WBC (test See_Comment [Automat ed code = 4607384266) message] The system which generated this result transmitted reference range : 0.0 - 10.0 /100 WBCs. The refer ence range was not u sed to interpret th is result as normal/abnormal . NRBC x10^3 (test code See_Comment [Auto mated = 5879422379) message] The s ystem which generated this result transmitted reference range : 10*3/?L. The reference range was not used to interpret this result as normal/abnormal . GRAN MAT (NEUT) % 67.3 % (test code = 770-8) IMM GRAN % (test code 0.20 % = 2198959642) LYMPH % (test code = 23.5 % 736-9) MONO % (test code = 5.7 % 5905-5) EOS % (test code = 2.6 % 713-8) BASO % (test code = 0.7 % 706-2) GRAN MAT x10^3(ANC) 3.93 10*3/uL 1.99-6.95 (test code = 1426949997) IMM GRAN x10^3 (test 0-0.06 code = 1597739056) LYMPH x10^3 (test code 1.37 10*3/uL 1.09-3.23 = 731-0) MONO x10^3 (test code 0.33 10*3/uL 0.36-1.02 L = 742-7) EOS x10^3 (test code = 0.15 10*3/uL 0.06-0.53 711-2) BASO x10^3 (test code 0.04 10*3/uL 0.01-0.09 = 704-7) Lab Interpretation Abnormal (test code = 27925-4) [id number] 03:03:00 Test Item Value Reference Range Interpretation Comments NA (test code = 139 mmol/L 135-145 3670808714) K (test code = 4.4 mmol/L 3.5-5 4719460643) CL (test code = 101 mmol/L 98-108 5435363117) CO2 TOTAL (test code = 28 mmol/L 23-31 5333819227) AGAP (test code = 2-16 5092378170) BUN (test code = 11 mg/dL 7-23 9121652214) GLUCOSE (test code = 225 mg/dL 70-110 H 9207275289) CREATININE (test code = 0.98 mg/dL 0.6-1.25 2101141887) TOTAL BILI (test code = 0.5 mg/dL 0.1-1.7 3411034098) CALCIUM (test code = 9.6 mg/dL 8.6-10.6 3093108194) T PROTEIN (test code = 8.2 g/dL 6.3-8.2 2167327737) ALBUMIN (test code = 4.7 g/dL 3.5-5 6098614926) ALK PHOS (test code = 75 U/L 34-122 2854109941) ALTv (test code = 74 U/L 5-50 H 1742-6) AST(SGOT) (test code = 39 U/L 13-40 0562509224) eGFR Calculation mL/min/1.73m2 (Non-) (test code = 8947527887) eGFR Calculation mL/min/1.73m2 () (test code = 3847544842) KATE (test code = KATE) Association of [...] tests). Lab Interpretation Abnormal (test code = 21935-0) [facility] WITH [id number] 02:12:00 Test Item Value Reference Range Interpretation Comments WBC (test code = See_Comment [Automated 1090-2) message] The sy stem which generated this result transmitted reference range : 4.20 - 10.70 10*3/?L. The reference range was not used to interpret this result as normal/abnormal . RBC (test code = See_Comment H [Automated 509-8) message] The sy stem which generated this [...] (test code = 36.4 fL 38.5-51.6 L 78582-5) RDW-CV (test code = 12.5 % 12.1-15.4 788-0) PLT (test code = See_Comment [Automated 777-3) message] The sy stem which generated this result transmitted reference range : 150 - 328 10*3/ ?L. The reference r jevon was not used to interpret this result as normal/abnormal . MPV (test code = 11.5 fL 9.8-13 81082-3) NRBC/100 WBC (test See_Comment [Automat ed code = 0937859600) message] The system which generated this result transmitted reference range : 0.0 - 10.0 /100 WBCs. The refer ence range was not u sed to interpret th is result as normal/abnormal . NRBC x10^3 (test code <0.01 See_Comment [Auto mated = 6021571406) message] The s ystem which generated this result transmitted reference range : 10*3/?L. The reference range was not used to interpret this result as normal/abnormal . GRAN MAT (NEUT) % 68.0 % (test code = 770-8) IMM GRAN % (test code 0.40 % = 9877073474) LYMPH % (test code = 23.8 % 736-9) MONO % (test code = 4.7 % 5905-5) EOS % (test code = 2.7 % 713-8) BASO % (test code = 0.4 % 706-2) GRAN MAT x10^3(ANC) 5.24 10*3/uL 1.99-6.95 (test code = 4931071435) IMM GRAN x10^3 (test 0.03 10*3/uL 0-0.06 code = 4602911090) LYMPH x10^3 (test code 1.83 10*3/uL 1.09-3.23 = 731-0) MONO x10^3 (test code 0.36 10*3/uL 0.36-1.02 = 742-7) EOS x10^3 (test code = 0.21 10*3/uL 0.06-0.53 711-2) BASO x10^3 (test code 0.03 10*3/uL 0.01-0.09 = 704-7) Lab Interpretation Abnormal (test code = 10090-4) [facility]2020-04-07 01:40:00 Test Item Value Reference Range Interpretation Comments SARS-CoV-2 Rapid ID NOW Not Detected Not Detected (test code = 09172-0) AKTE (test code = KATE) ID NOW COVID-19 Assay is an isothermal nucleic acid amplification test intended for the qualitative detection of nucleic acid from SARS-CoV-2 viral RNA in nasopharyngeal (BACCARAT MANAGER) specimens. It is used under Emergency Use [...] indicated. Lab Interpretation Normal (test code = 47433-4) [facility] [id number] 01:06:58 FINDINGS/IMPRESSION:: Frontal and lateral radiographs of [...] spondylotic changes at C5-C6. Cervical spine is otherwiseunremarkable.[facility] GLUCOSE (AUTOMATED)2020-02-19 23:08:00 Test Item Value Reference Range Interpretation Comments POCT GLU (test code = 7110075242) 243 mg/dL 70-110 H Lab Interpretation (test code = Abnormal 79174-9) [facility] GLUCOSE (AUTOMATED)2020-02-19 21:58:00 Test Item Value Reference Range Interpretation Comments POCT GLU (test code = 3318047399) 313 mg/dL 70-110 H Lab Interpretation (test code = Abnormal 73861-4) [facility]ID [facility]2020-02-19 21:31:00 Test Item Value Reference Range Interpretation Comments SARS-CoV-2 Rapid ID NOW Not Detected Not Detected (test code = 87312-8) KATE (test code = KATE) ID NOW COVID-19 Assay is an isothermal nucleic acid amplification test intended for the qualitative detection of nucleic acid from SARS-CoV-2 viral RNA in nasopharyngeal (BACCARAT MANAGER) specimens. It is used under Emergency Use [...] indicated. Lab Interpretation Normal (test code = 16807-8) [facility][id number][facility]2020-02-19 21:29:00 Test Item Value Reference Range Interpretation Comments NA (test code = 134 mmol/L 135-145 L 7401131882) K (test code = 4.1 mmol/L 3.5-5 1772534830) CL (test code = 99 mmol/L 98-108 4970887404) CO2 TOTAL (test code = 27 mmol/L 23-31 0325534926) AGAP (test code = 2-16 9325068114) BUN (test code = 10 mg/dL 7-23 8535251156) GLUCOSE (test code = 372 mg/dL 70-110 H 6794065945) CREATININE (test code = 0.96 mg/dL 0.6-1.25 8981758261) TOTAL BILI (test code = 0.4 mg/dL 0.1-1.7 4370738024) CALCIUM (test code = 9.2 mg/dL 8.6-10.6 1534955640) T PROTEIN (test code = 7.5 g/dL 6.3-8.2 0766894982) ALBUMIN (test code = 4.5 g/dL 3.5-5 6981462721) ALK PHOS (test code = 86 U/L 34-122 8005660713) ALTv (test code = 48 U/L 5-50 1742-6) AST(SGOT) (test code = 27 U/L 13-40 6924518233) eGFR Calculation mL/min/1.73m2 (Non-) (test code = 1969813884) eGFR Calculation mL/min/1.73m2 () (test code = 1637818864) KATE (test code = KATE) Association of [...] tests). Lab Interpretation Abnormal (test code = 53790-4) [facility] WITH [id number] 21:06:00 Test Item Value Reference Range Interpretation Comments WBC (test code = See_Comment [Automated 5190-2) message] The sy stem which generated this [...] (test code = 36.3 fL 38.5-51.6 L 39974-2) RDW-CV (test code = 12.9 % 12.1-15.4 788-0) PLT (test code = See_Comment [Automated 777-3) message] The sy stem which generated this result transmitted reference range : 150 - 328 10*3/ ?L. The reference r jevon was not used to interpret this result as normal/abnormal . MPV (test code = 11.3 fL 9.8-13 43449-4) NRBC/100 WBC (test See_Comment [Automat ed code = 8972290687) message] The system which generated this result transmitted reference range : 0.0 - 10.0 /100 WBCs. The refer ence range was not u sed to interpret th is result as normal/abnormal . NRBC x10^3 (test code <0.01 See_Comment [Auto mated = 5664423592) message] The s ystem which generated this result transmitted reference range : 10*3/?L. The reference range was not used to interpret this result as normal/abnormal . GRAN MAT (NEUT) % 79.8 % (test code = 770-8) IMM GRAN % (test code 0.50 % = 3332323782) LYMPH % (test code = 13.4 % 736-9) MONO % (test code = 4.2 % 5905-5) EOS % (test code = 1.8 % 713-8) BASO % (test code = 0.3 % 706-2) GRAN MAT x10^3(ANC) 8.49 10*3/uL 1.99-6.95 H (test code = 0680618952) IMM GRAN x10^3 (test 0.05 10*3/uL 0-0.06 code = 7597910195) LYMPH x10^3 (test code 1.42 10*3/uL 1.09-3.23 = 731-0) MONO x10^3 (test code 0.45 10*3/uL 0.36-1.02 = 742-7) EOS x10^3 (test code = 0.19 10*3/uL 0.06-0.53 711-2) BASO x10^3 (test code 0.03 10*3/uL 0.01-0.09 = 704-7) Lab Interpretation Abnormal (test code = 12282-7) [facility] GLUCOSE (AUTOMATED)2019-11-06 13:38:00 Test Item Value Reference Range Interpretation Comments POCT GLU (test code = 2385071918) 116 mg/dL 70-110 H Lab Interpretation (test code = Abnormal 72388-4) [facility] GLUCOSE (AUTOMATED)2019-11-06 12:29:00 Test Item Value Reference Range Interpretation Comments POCT GLU (test code = 8504054323) 322 mg/dL 70-110 H Lab Interpretation (test code = Abnormal 04338-0) [facility] GLUCOSE (AUTOMATED)2019-11-06 12:29:00 Test Item Value Reference Range Interpretation Comments POCT GLU (test code = 1514059337) 230 mg/dL 70-110 H Lab Interpretation (test code = Abnormal 23027-8) [facility] GLUCOSE (AUTOMATED)2019-11-06 02:00:00 Test Item Value Reference Range Interpretation Comments POCT GLU (test code = 155 mg/dL 70-110 H Notifi ed Provider 0393924232) Lab Interpretation (test Abnormal code = 75027-7) [facility] [id number] 00:02:00 Test Item Value Reference Range Interpretation Comments Case Report (test code Surgical Pathology ? ? = 2925128186) ?Case: [id number] ? Authorizing Provider: ?Yonatan Lund MD ? ? ? Collected: ? 11/03/2019 1426 ?Ordering Location: ? ? [facility] ? ? ?Received: ?11/03/2019 1555 ? [facility] ?Pathologist: ? Klaus Tinoco MD ? Specimen: ? ?APPENDIX, appendix ? Final Diagnosis (test n9cewYLwONIgn8pkXMTvvP code = 5536186679) FuZzEwMzNcZnRuYmpcdWMx VNdqnjCaCLadk4RiE4TtZg AwMFxhbnNpXGRlZmxhbmcx IPPnZIF7luVtQHKjXSfbCO JkQWtjDp2teJWvxQkySmDw ZXSbb8jayeQThwxdlCc1u5 qgROVnBtO3fMFnOPioD0ut bgUwgQMdMFMaNGh4jK75EP XexH8leERkZUtpfrPyHPmi csYnxfOfGzi5HJRmB1fmOD UrGCGzF3FrEQ9aRAFlUwo7 XGU8QKD6mLmga1J4qSDtoM PxjQhzQrFdHsWfTJOQz7Ea RSz1mQitO3ItUVUxKeC7fV QgUGFyYWdyYXBoIEZvbnQ7 sC69KTzavmH4eAZhr4Hvx2 8fg886sH2ruACySPD4YIPf WFYzkAOmIFRoHSX2KRUieL YbH5wkLCwkKL0ilweeBFM8 MFxtYXJndDcyMFxtYXJnYj SrpWAoWFHbxBkuEZwer165 ANH5PiLsSC4vS2Pmz0H1nM 9maXRcZGVmdGFiNzIwXGZv kh0nfXSnGEldh7MoKBC7rt Z1bBQntORiMEZuZA45Sxct v1VkGhmtWUH3ZVRggnViz2 Odg3diQnGyhnOlZ4gwU2Eo ZHJoZWFkXHBnYnJkcmZvb3 Stm3RtcIFqzJj2g0gmOLBb MSJomStze7uzIIA9HIDcX5 Q2cWHib2qrEFafAPXikGP8 jcDsBYLgwCKwL8PtcJ3hJZ ejGL3rqjw2t2sqVaYgIT1f ruihu9ceEBspLCVqICB7Bb WmIVTcp6QcphbbKjMvt5Ix fJHrWNxzY50xg663ITXauj WbM8vktAQjdyeipKFsetfq MFxmczIwXHFsXHBsYWluXG DzUWDlTbWfcCvvnU1mDoVh ZnMyMFxwYXJccGFyZFxwbG FpblxmMFxmczIwXHBsYWlu ACUfDREvLgLhNU8eQSOGMX 8STRsxNPKYQLVHMIJKYN9P WTpccGFyXHFsXHBsYWluXG NmQCXlZbOsbNiiwB6xXiUn GvJvDRLyQKQsES9tTOGTEY EzDQFICZ1RFUJNGEfUGVfQ BDhjUONTKT4DWJVFCnFAJ3 lUSVNccGFyXHBhciBNYXR0 wVU2QKMwnSEzDZBGKLmgHJ WvtUpteT5hSjCqYgQyXgxk UQ0jUZAwE6tziSDnUDCsQD CbZ2erGtCkxD5dyDpsIKow ZjFcZnMyMiBIYXJzaHdhcm OrRU9rNSkjr3UgGNTZKUFp Jg0cLJ8sMNXyTPN1EdPqNF BNXHBsYWluXGYxXGZzMjBc pXPjgLrjrzToFOnuw1AaL4 YyMjAwMFxhbnNpXGRlZmxh onnxKVDfLCH0zjGyWHDoYF qwPJCdURvsJx3doUSneDrq HtNwBUKxc9kgexPRGRtmNe AoK767CXInRUhct3cpp2Ww CSSfuPOuk5X9RFAJvpgpuL b7o1brQeMdUoL1mTDsIGfn L2acheEemNSkX2WrhOFznH v2nHvxN34lj6I1RnazN7ux GYBfFRSgA2PhSR1nMRQaWo r2FFJ5MAP0TRTlZLHnQ3Pj JH0yDCItkHAvIAz4u8jmeP whIXHuMUC1c7okRXyanyY2 CL8xjn8sxEu6v2ssdsWaPA QoIQWqaVYCBFRmN8AstIlu Zm0ztMx6aGsfVzhrXUF2Zn a6IZ0nff53avg6aYnyKPYz xxknOgG0KMfaFOUkmnekUB l0XZwtJXRmaBD7WXUhjOOn J0IaSPVgRR0qhkg6VXU0VS vkVEOiTqX5BTGjjGZoOLLy fSejNGgmo406QQJ8TwSeRY 3oJ7Knx3J2pQ2vpSYuCRGm vNSiDjDhXPFlei3owUKuWN tmv4LaYUS4zyT0yOAfgAGi HVWbKJ81Ppwir0AtDrulPV I1ZAFibwJkx6Cvs8ypCdLu gpOfR3fhP4OoZYAnORVjYS RqRsEeefJjh3Wnp5IqaOWk gAj0t6trHVQqDWVioWloa1 wtJOO0UWYbC3V2aJMyi7ii YDbsRJFryZM8ttY5WGLzwT XfS1LupE0fSTIjUQ5nuuh5 u7fkLGG0WNwnKBXzDuQ1gm X2YMEuqROvJJGcwGocPVca d327QDN9DeZcDZIxg1QwH3 LwyUxeT64stOyoT95xADBa pIugkE2lqVlwgS5jPwRaPi MyNFxxbFxwbGFpblxmMVxm czIwXGxhbmcxMDMzXGhpY2 bdSyGuJCAxrDufWWcrz8Gf XGYxXGNmMlxmczIwXHBhci ORMQifgiWsxBGrv71mHQxi eSByZXZpZXdlZCBhbGwgc3 JhH0xzSR4nV5WycBPdjhHn szSdPOzwCDThe8i2sDWctV mqx2IcgRQuJO18fmYiMRYd ZWA7TBXim8uyZE61iaafVz UvtG67agRydcLbYNNhk7pn M8kmhZVau6Hkw0QkkzDhGT eic0AiWX0yeDSzkyyanDY4 YTStgTKbwwAvgxU4fOgqMA DzrM4oiB7swLkerX8lGeYo ZrNoCLnaDP5wQFKtC0utvW UsDBNrTCTqN2ngGuKfeF3w yWhzKjqamwN1KWSkvs68 Clinical Information Acute abdomen (test code = 4941900192) Gross Description (test n3kizGOhJWSllCNnKcKfDF code = 3030478146) XiOXQpx7ojTJHumSLoCcRi MzNcZnRuYmpcdWMxXGRlZm Jjk8eqm205yYGww4bnLMKn VrS6sJVvNOCvdGAcI192GO RwJIwrq9jba7HyBOTioJWu q3W8ITMMuyyjzRb0mAbyK7 3tc4X1TzjvA7ugFICdSQbt OWSuPEtrsXQoCMJ5JWWoGY L2JOkovlYlrzJ6EMcapKSp OaL6BXq0q4ugnRfnZQEnFN P3i9nyAJegdiStTE0lng0f vKn9w6ivzxRvMGJsUTFrnX TNDJDaI6ChcPvcSv8lvNv3 fEfsWpekBQH7Ytt9QO2vae 86eql9cEkrTNYrpqrmRwW9 HIxoCOTydmwnAPy5BYogZI DvySHzQHOgpRVvO1DbILuu SX4hfza1DyVmPU7fckfxHZ apJOPuFCD3NwBaBCOhj4Aa rgzkEjAgcf3jjp10SKU6h9 NhwSssKYK9SVU9GvGlIl9d sDWgHTWkDH3zTyDafRMqAX Kbid22oNynGTqomkCnhK1t HxTqUPBgzZEbXHCaLC2qbU CbQUGrdC5yndkjBHHzOtXx cajfQIBxgRwqhhYrRr5tiL uzDFY9HBkzK9eipY7pWzH4 CZydU7gnaH9vEEv1MNsfwY I1KKAmtF4lDJ6ohuzen2ja AHZ4JXikYATfleM1umQrYV NcwEXhA5QhnK51QdLdxOJj N1SxrP7cQEkvHTEmhen1Ba ApBn4riVCnnAY6UKfgNmed YWdlXHBnbmNvbnRccGduZG VjXHBsYWluXHBsYWluXGYw KBHzJxAtw5MnQLTuv9liXb Pjc7myoGa4AWcqmVvasNCv blxmMFxmczIwXHBsYWluXG DyCTDvNvYtS8ZkX1rmTP5m QSBpcyByZWNlaXZlZCBpbi Kbu7QaMWyyrjLxEWZoqQzf EKJ0aGGxOYVbMFWkXJOrZE 50XHBsYWluXGYxXGZzMjBc bVywRJmjEXb1MbntrDCqop xmMVxmczIwIHMgbmFtZSwg VUggbnVtYmVyICJhcHBlbm RpeFxwbGFpblxmMVxmczIw DYR4LbSsZUkrBHGdtDvfrM 1cXjPvHpOaZEIzVS5iZURr ukFle2OeLA9dTOTamSpmld 36DJ4smnYfeMiwf0CuDZKr jPDmEHj5IGh0WkaaO40tqQ 4knTTdS6AfUJdzWN46EADt OCBjbSBpbiBkaWFtZXRlci dhq9q9bTPpiWCwA1cfDFD9 GWcte3ccbO5csUxqbATsQX Bds7S3zXSmQMPiYDBcOWQs FW6fqPleWWPzDVK2RREcNW I8KYWvPYSwgMlkCUVEfDBa DJHkOH1uyOwfy9Nxk0TkEP etf0VbICXuaaQ5nYBdSEQ5 kWFrbEGlOADcbfSkfNO2kX VudCBleHVkYXRlLiBUaGUg QPQeME7fcWfmcFDpz4FykC MwgVqia3LatXdzvlWqLDAz IHJldmVhbCBhIHBhdGVudC WznJ6rxerrauDlF1pvBeFp cv7vNALkhfPwhE27GRGsMF ReSgLyiYoeP91fvZTlqbgj ZsVvB3SolMMdSF3wjwHuEH dlLiAgVGhlIHdhbGwgdGhp C5krKORwXCRvgbywkhDvdn 7dTBDmWN4cFaTzV96rLPJc cnVwdHVyZSBzaXRlIGlzIG wbl4ZkzMqayEYursVbXmgc YOdtEJ5jAMHxCSBng87uaV lsFJ46Y07dCTiklwDdKNV3 gJ8mML4mpfetce0wTdRlwf WlRV31SIHmbjTuj4EzzJov fqHdh5zhN7kipV9wuMYiEO Wuou0mvhBgLBL7aY1fvamj zWleXNIbaFFdqB7pZPNhrr SqAJS0rG3tMT2mgniaudVl bmQgZGlzdGFsIHRpcCBhcm Uxj3PjhEt6mNStBFufBYYp LUEyLlxwYXJccGFyZFxwbG FpblxmMFxmczIwXHBsYWlu XGYxXGZzMjAgSnVsaWUgTW AYgFufeuV8OJJGWClcIEJ0 Embedded Images (test code = 6480564405) [facility] GLUCOSE (AUTOMATED)2019-11-05 22:19:00 Test Item Value Reference Range Interpretation Comments POCT GLU (test code = 5382059814) 115 mg/dL 70-110 H Lab Interpretation (test code = Abnormal 02354-4) [facility] GLUCOSE (AUTOMATED)2019-11-05 18:23:00 Test Item Value Reference Range Interpretation Comments POCT GLU (test code = 1317263648) 197 mg/dL 70-110 H Lab Interpretation (test code = Abnormal 50403-4) [facility] GLUCOSE (AUTOMATED)2019-11-05 17:33:00 Test Item Value Reference Range Interpretation Comments POCT GLU (test code = 1640782415) 125 mg/dL 70-110 H Lab Interpretation (test code = Abnormal 27473-2) [facility] GLUCOSE (AUTOMATED)2019-11-05 13:28:00 Test Item Value Reference Range Interpretation Comments POCT GLU (test code = 2073331714) 130 mg/dL 70-110 H Lab Interpretation (test code = Abnormal 82398-5) [facility] METABOLIC PANEL (NA, K, CL, CO2, GLUCOSE, BUN, CREATININE, CA)2019-11-05 12:11:00 Test Item Value Reference Range Interpretation Comments NA (test code = 137 mmol/L 135-145 4827725550) K (test code = 3.6 mmol/L 3.5-5 8440668549) CL (test code = 100 mmol/L 98-108 8990702318) CO2 TOTAL (test code = 30 mmol/L 23-31 2458379923) AGAP (test code = 2-16 9975436952) BUN (test code = 14 mg/dL 7-23 9515832153) GLUCOSE (test code = 164 mg/dL 70-110 H 6643813340) CREATININE (test code = 0.81 mg/dL 0.6-1.25 5419124541) CALCIUM (test code = 8.6 mg/dL 8.6-10.6 0954334210) eGFR Calculation mL/min/1.73m2 (Non-) (test code = 3680511449) eGFR Calculation mL/min/1.73m2 () (test code = 1250189838) KATE (test code = KATE) Association of [...] tests). Lab Interpretation Abnormal (test code = 85009-8) [facility] WITH [id number] 11:39:00 Test Item Value Reference Range Interpretation [...] RDW-SD (test code = 38.7 fL 38.5-51.6 32928-0) RDW-CV (test code = 13.0 % 12.1-15.4 788-0) PLT (test code = See_Comment [Automated 777-3) message] The sy stem which generated this result transmitted reference range : 150 - 328 10*3/ ?L. The reference r jevon was not used to interpret this result as normal/abnormal . MPV (test code = 11.5 fL 9.8-13 63570-6) NRBC/100 WBC (test See_Comment [Automat ed code = 5184489759) message] The system which generated this result transmitted reference range : 0.0 - 10.0 /100 WBCs. The refer ence range was not u sed to interpret th is result as normal/abnormal . NRBC x10^3 (test code <0.01 See_Comment [Auto mated = 1149077180) message] The s ystem which generated this result transmitted reference range : 10*3/?L. The reference range was not used to interpret this result as normal/abnormal . GRAN MAT (NEUT) % 83.5 % (test code = 770-8) IMM GRAN % (test code 0.30 % = 1238467050) LYMPH % (test code = 9.3 % 736-9) MONO % (test code = 5.7 % 5905-5) EOS % (test code = 1.1 % 713-8) BASO % (test code = 0.1 % 706-2) GRAN MAT x10^3(ANC) 7.74 10*3/uL 1.99-6.95 H (test code = 8501303199) IMM GRAN x10^3 (test 0.03 10*3/uL 0-0.06 code = 3721109700) LYMPH x10^3 (test code 0.86 10*3/uL 1.09-3.23 L = 731-0) MONO x10^3 (test code 0.53 10*3/uL 0.36-1.02 = 742-7) EOS x10^3 (test code = 0.10 10*3/uL 0.06-0.53 711-2) BASO x10^3 (test code <0.03 0.01-0.09 = 704-7) Lab Interpretation Abnormal (test code = 59677-6) [facility] GLUCOSE (AUTOMATED)2019-11-05 10:22:00 Test Item Value Reference Range Interpretation Comments POCT GLU (test code = 3953157784) 149 mg/dL 70-110 H Lab Interpretation (test code = Abnormal 82224-1) [facility] GLUCOSE (AUTOMATED)2019-11-05 06:15:00 Test Item Value Reference Range Interpretation Comments POCT GLU (test code = 3889870190) 204 mg/dL 70-110 H Lab Interpretation (test code = Abnormal 18175-6) [facility] GLUCOSE (AUTOMATED)2019-11-05 01:48:00 Test Item Value Reference Range Interpretation Comments POCT GLU (test code = 9029096320) 227 mg/dL 70-110 H Lab Interpretation (test code = Abnormal 74388-4) [facility] GLUCOSE (AUTOMATED)2019-11-04 22:30:00 Test Item Value Reference Range Interpretation Comments POCT GLU (test code = 8079369594) 132 mg/dL 70-110 H Lab Interpretation (test code = Abnormal 13279-2) [facility] GLUCOSE (AUTOMATED)2019-11-04 17:24:00 Test Item Value Reference Range Interpretation Comments POCT GLU (test code = 5366393320) 213 mg/dL 70-110 H Lab Interpretation (test code = Abnormal 60348-9) [facility] GLUCOSE (AUTOMATED)2019-11-04 13:31:00 Test Item Value Reference Range Interpretation Comments POCT GLU (test code = 3455099967) 203 mg/dL 70-110 H Lab Interpretation (test code = Abnormal 99995-1) [facility] GLUCOSE (AUTOMATED)2019-11-04 12:03:00 Test Item Value Reference Range Interpretation Comments POCT GLU (test code = 9053716147) 213 mg/dL 70-110 H Lab Interpretation (test code = Abnormal 85354-2) [facility] 23:50:00 Test Item Value [...] Indicated Lab Interpretation Abnormal (test code = 70217-8) [facility] GLUCOSE (AUTOMATED)2019-11-03 23:28:00 Test Item Value Reference Range Interpretation Comments POCT GLU (test code = 5191870599) 273 mg/dL 70-110 H Lab Interpretation (test code = Abnormal 05725-1) [facility] Center ABDOMEN PELVIS W [id number] 18:01:52CT Abdomen and Pelvis with intravenous contrast. [...] Rhoades in the emergency room at 12:00. [facility], Radiant Results Inft User - [...] Dr. Rhoades in the emergency room at 12:00.[facility] [id number] 16:23:00 Test Item Value Reference Range Interpretation Comments APPEARANCE (test code = Clear Clear 4498703591) COLOR (test code = Yellow Yellow 2299492381) PH (test code = 4.8-8.0 6657892218) SP GRAVITY (test code = 1.003-1.030 3202672523) GLU U QUAL (test code = 500 mg/dL Normal A 2103391172) BLOOD (test code = Negative Negative 1302902675) KETONES (test code = Negative Negative 2464195884) PROTEIN (test code = Negative Negative 2887-8) UROBILIN (test code = Normal Normal 3727951908) BILIRUBIN (test code = Negative Negative 3476545368) NITRITE (test code = Negative Negative 5325100326) LEUK BIANCA (test code = Negative Negative 9905439533) RBC/HPF (test code = See_Comment [Autom ated message] 0479001611) The system [employer] generated this result transmit yelena reference range : 0 - 3 HPF. The refe rence range was not u sed to interpret th is result as normal/abnormal . WBC/HPF (test code = See_Comment [Autom ated message] 8929357142) The system [employer] generated this result transmit yelena reference range : 0 - 5 HPF. The refe rence range was not u sed to interpret th is result as normal/abnormal . BACTERIA (test code = Negative Negative 1785653999) MUCOUS (test code = Slight Negative LPF A 2868623641) SQ EPITH (test code = <1 HPF 6175275746) Lab Interpretation (test Abnormal code = 16914-4) [facility] ([id number][facility]2019-11-03 16:04:00 Test Item Value Reference Range Interpretation Comments NA (test code = 137 mmol/L 135-145 5470661678) K (test code = 4.3 mmol/L 3.5-5 9668251448) CL (test code = 98 mmol/L 98-108 7433227472) CO2 TOTAL (test code = 28 mmol/L 23-31 1109433934) AGAP (test code = 2-16 0433958906) BUN (test code = 11 mg/dL 7-23 5707604656) GLUCOSE (test code = 356 mg/dL 70-110 H 6075020474) CREATININE (test code = 1.01 mg/dL 0.6-1.25 8526302302) TOTAL BILI (test code = 0.9 mg/dL 0.1-1.6 9324369850) CALCIUM (test code = 9.1 mg/dL 8.6-10.6 6317443463) T PROTEIN (test code = 7.5 g/dL 6.3-8.2 9429010770) ALBUMIN (test code = 4.7 g/dL 3.5-5 1954692468) ALK PHOS (test code = 73 U/L 34-122 6970252178) ALTv (test code = 38 U/L 5-50 1742-6) AST(SGOT) (test code = 25 U/L 13-40 2804945048) eGFR Calculation mL/min/1.73m2 (Non-) (test code = 0103356138) eGFR Calculation mL/min/1.73m2 () (test code = 9102770371) KATE (test code = KATE) Association of [...] tests). Lab Interpretation Abnormal (test code = 92757-2) [facility] Test Item Value Reference Range Interpretation Comments LIPASE (test code = 6101149532) 48 U/L 0-220 Lab Interpretation (test code = Normal 76950-3) [facility] WITH [id number] 15:51:00 Test Item Value Reference Range Interpretation Comments WBC (test code = See_Comment H [Automated 6490-2) message] The system which generated this result transmit yelena reference range : 4.20 - 10.70 10*3/?L. The reference range was not used to interpret this result as normal/abnormal . RBC (test code = See_Comment H [Automated 809-8) message] The system which generated this result [...] (test code = 37.8 fL 38.5-51.6 L 75919-3) RDW-CV (test code = 12.7 % 12.1-15.4 788-0) PLT (test code = See_Comment [Automated 777-3) message] The system which generated this result transmit yelena reference range : 150 - 328 10*3/ ?L. The reference range was not u sed to interpret th is result as normal/abnormal . MPV (test code = 10.9 fL 9.8-13 23580-0) NRBC/100 WBC (test See_Comment [Automat ed code = 4063732287) message] The system which generated this result transmit yelena reference range : 0.0 - 10.0 /100 WBCs. The reference range was not used to interpret this result as normal/abnormal . NRBC x10^3 (test code <0.01 See_Comment [Auto mated = 1635124462) message] The system which generated this result transmit yelena reference range : 10*3/?L. The reference range was not used to interpret this result as normal/abnormal . GRAN MAT (NEUT) % 91.5 % (test code = 770-8) IMM GRAN % (test code 0.50 % = 3105664859) LYMPH % (test code = 3.9 % 736-9) MONO % (test code = 3.8 % 5905-5) EOS % (test code = 0.1 % 713-8) BASO % (test code = 0.2 % 706-2) GRAN MAT x10^3(ANC) 12.89 10*3/uL 1.99-6.95 H (test code = 2849687141) IMM GRAN x10^3 (test 0.07 10*3/uL 0-0.06 H code = 1171495345) LYMPH x10^3 (test code 0.55 10*3/uL 1.09-3.23 L = 731-0) MONO x10^3 (test code 0.54 10*3/uL 0.36-1.02 = 742-7) EOS x10^3 (test code = <0.03 0.06-0.53 L 711-2) BASO x10^3 (test code 0.03 10*3/uL 0.01-0.09 = 704-7) Lab Interpretation Abnormal (test code = 70098-9) [facility]"
[2022-08-10] MEDS ORDERED: DIPHENHYDRAMINE 50 MG/ML VIAL ONE (15:17)
[2022-08-10] MEDS ORDERED: KETAMINE HCL 500 MG/5 ML VIAL ONE (15:17)
[2022-08-10] MEDS ORDERED: dexAMETHasone 10 MG/ML VIAL ONE (15:18)
[2022-08-10] MEDS ORDERED: HALOPERIDOL LACT 5 MG/ML INJ ONE (15:18)
[2022-08-10] MEDS ORDERED: NA CHLORIDE 0.9% 1,000 ML ONE (15:18)
--- NOTE | 2022-08-10 16:47 | ER ---
Nurse's Notes [facility] Name: Chente Minaya Age: 52 yrs Sex: Male : 1970 Arrival Date: 08/10/2022 Time: 14:38 Bed 5 Private MD: Diagnosis: Migraine without aura, not intractable Presentation: 08/10 15:03 Chief complaint: Patient states: Pt reports migraine and nausea since morning. kb3 Coronavirus screen: Vaccine status: Patient reports being unvaccinated. Client denies travel out of the [place] in the last 14 days. Ebola Screen: Patient negative for fever greater than or equal to 101.5 degrees Fahrenheit, and additional compatible Ebola Virus Disease symptoms Patient denies exposure to infectious person. Patient denies travel to an Ebola-affected area in the 21 days before illness onset. Initial Sepsis Screen: Does the patient meet any 2 criteria? No. Patient's initial sepsis screen is negative. Does the patient have a suspected source of infection? No. Patient's initial sepsis screen is negative. Risk Assessment: Do you want to hurt yourself or someone else? Patient reports no desire to harm self or others. Onset of symptoms was August 08, 2022. 15:03 Method Of Arrival: Ambulatory 3 15:03 Acuity: GILDARDO 3 kb3 Triage Assessment: 15:04 Headache History: The patient has had previous headaches and this one is similar to kb3 previous episodes. General: Appears in no apparent distress. Behavior is calm, cooperative. Pain: Complains of pain in forehead, right jehovah's witness and left jehovah's witness Pain does not radiate. Pain currently is 10 out of 10 on a pain scale. Quality of pain is described as aching, Pain began 2-3 days ago. Also complains of nausea. 16:52 Neuro: Level of Consciousness is awake, alert, obeys commands, Oriented to person, ll1 place, time, situation, Appropriate for age Moves all extremities. Full function Speech is normal, Facial symmetry appears normal. Historical: - Allergies: 15:04 Bactrim; kb3 15:04 mushroom; kb3 15:04 Mustard; kb3 15:04 PENICILLINS; kb3 15:04 Reglan; kb3 15:04 Sulfa (Sulfonamide Antibiotics); kb3 15:04 surgical steel; kb3 15:04 tramadol; kb3 15:04 Tylenol-Codeine #3; kb3 15:04 Tylenol-Codeine #4; kb3 - Home Meds: 15:04 anastrozole 1 mg Oral tab [Active]; glipizide 10 mg Oral tab 1 tab once daily [Active]; kb3 levemir 30 units twice a day [Active]; tadalafil 20 mg Oral tab 1 tab once daily [Active]; Testosterpme injection Weekly [Active]; Zofran Oral [Active]; - PMHx: 15:04 diabetes mellitus; Migraine; GERD; kb3 - PSHx: 15:04 Appendectomy; kb3 - Immunization history:: Adult Immunizations up to date, Client reports having NOT received the Covid vaccine. Last tetanus immunization: unknown. - Social history:: Smoking status: Patient denies any tobacco usage or history of. Screenin:33 Abuse screen: Denies threats or abuse. Nutritional screening: No deficits noted. ll1 Tuberculosis screening: No symptoms or risk factors identified. Fall Risk IV access (20 points). Total Prieto Fall Scale indicates No Risk (0-24 pts). Assessment: 15:32 Reassessment: No changes from previously documented assessment. Patient and/or family ll1 updated on plan of care and expected duration. Pain level reassessed. Patient is alert, oriented x 3, equal unlabored respirations, skin warm/dry/pink. 15:43 Reassessment: No changes from previously documented assessment. Patient and/or family ll1 updated on plan of care and expected duration. Pain level reassessed. Patient is alert, oriented x 3, equal unlabored respirations, skin warm/dry/pink. 16:52 Reassessment: No changes from previously documented assessment. Patient and/or family ll1 updated on plan of care and expected duration. Pain level reassessed. Patient is alert, oriented x 3, equal unlabored respirations, skin warm/dry/pink. Vital Signs: 15:03 BP 141 / 62; Pulse 89; Resp 20; Temp 98.8; Pulse Ox 99% ; Weight 129.27 kg; Height 6 kb3 ft. 2 in. (187.96 cm); Pain 10/10; 15:33 BP 133 / 85; Pulse 86; Resp 18; Pulse Ox 97% on R/A; Pain 10/10; ll1 16:51 BP 117 / 73; Pulse 79; Resp 18; Pulse Ox 98% ; ll1 15:03 Body Mass Index 36.59 (129.27 kg, 187.96 cm) kb3 ED Course: 14:38 Patient arrived in ED. as 14:49 Robert Villalobos PA is PHCP. [facility] 14:49 Saran Acuña DO is Attending Physician. [facility] 15:00 Gagan Real, RN is Primary Nurse. ll1 15:00 Arm band placed on Patient placed in an exam room, on a stretcher. ll1 15:04 Triage completed. kb3 15:24 Inserted saline lock: 22 gauge in right antecubital area, using aseptic technique. ll1 15:33 Patient has correct armband on for positive identification. Bed in low position. Call ll1 light in reach. Side rails up X2. Client placed on continuous cardiac and pulse oximetry monitoring. NIBP monitoring applied. 16:51 No provider procedures requiring assistance completed. IV discontinued, intact, ll1 bleeding controlled, No redness/swelling at site. Pressure dressing applied. Administered Medications: 15:25 Drug: NS 0.9% 1000 ml Route: IV; Rate: 1 bolus; Site: right antecubital; ll1 16:52 Follow up: Response: No adverse reaction; IV Status: Completed infusion; IV Intake: ll1 1000ml 15:26 Drug: diphenhydrAMINE 12.5 mg Route: IVP; Site: right antecubital; ll1 16:53 Follow up: Response: No adverse reaction; Pain is decreased; RASS: Alert and Calm (0) ll1 15:27 Drug: Decadron - Dexamethasone 10 mg Route: IVP; Site: right antecubital; ll1 16:53 Follow up: Response: No adverse reaction; Pain is decreased; RASS: Alert and Calm (0) ll1 15:28 Drug: HALdol (haloperidol) 5 mg Route: IVP; Site: right antecubital; ll1 16:52 Follow up: Response: No adverse reaction; Pain is decreased; RASS: Alert and Calm (0) ll1 15:29 Drug: Ketamine 20 mg Route: IVP; Site: right antecubital; ll1 16:53 Follow up: Response: No adverse reaction; Pain is decreased; RASS: Alert and Calm (0) ll1 Medication: 15:33 VIS not applicable for this client. ll1 Intake: 16:52 IV: 1000ml; Total: 1000ml. ll1 Outcome: 16:46 Discharge ordered by . aletha 16:52 Discharged to home ambulatory. ll1 16:52 Condition: stable 16:52 Discharge instructions given to patient, Instructed on discharge instructions, follow up and referral plans. Demonstrated understanding of instructions, follow-up care. 16:53 Patient left the ED. 1 Signatures: Robert Villalobos PA PA jmm Martinez, Amelia as Lewis, Lynsay, RN RN ll1 Risa Calderon, RN RN kb3 Corrections: (The following items were deleted from the chart) 15:05 15:04 Home Meds: anastrozole Oral; kb3 kb3
--- NOTE | 2022-08-10 16:47 | EDPHYS ---
Physician Documentation [facility] Name: Chente Minaya Age: 52 yrs Sex: Male : 1970 Arrival Date: 08/10/2022 Time: 14:38 Bed 5 Private MD: ED Physician Saran Acuña HPI: 08/10 15:10 This 52 yrs old Male presents to ER via Ambulatory with complaints of Headache, Nausea. jmm 15:10 The patient complains of pain to the forehead. Is a 52-year-old male with history of jmm diabetes mellitus and chronic migraines who presents emerged part with complaints of migraine which has been ongoing for the past 3 days. Patient states having nausea. Migraine is similar in character to previous episodes. Denies fever. Denies neck stiffness. Denies weakness. Historical: - Allergies: 15:04 Bactrim; kb3 15:04 mushroom; kb3 15:04 Mustard; kb3 15:04 PENICILLINS; kb3 15:04 Reglan; kb3 15:04 Sulfa (Sulfonamide Antibiotics); kb3 15:04 surgical steel; kb3 15:04 tramadol; kb3 15:04 Tylenol-Codeine #3; kb3 15:04 Tylenol-Codeine #4; kb3 - Home Meds: 15:04 anastrozole 1 mg Oral tab [Active]; glipizide 10 mg Oral tab 1 tab once daily [Active]; kb3 levemir 30 units twice a day [Active]; tadalafil 20 mg Oral tab 1 tab once daily [Active]; Testosterpme injection Weekly [Active]; Zofran Oral [Active]; - PMHx: 15:04 diabetes mellitus; Migraine; GERD; kb3 - PSHx: 15:04 Appendectomy; kb3 - Immunization history:: Adult Immunizations up to date, Client reports having NOT received the Covid vaccine. Last tetanus immunization: unknown. - Social history:: Smoking status: Patient denies any tobacco usage or history of. ROS: 15:10 Constitutional: Negative for fever, chills, and weight loss, Cardiovascular: Negative jmm for chest pain, palpitations, and edema, Respiratory: Negative for shortness of breath, cough, wheezing, and pleuritic chest pain. 15:10 Neuro: Positive for headache. 15:10 All other systems are negative. Exam: 15:10 Constitutional: This is a well developed, well nourished patient who is awake, alert, jmm and in no acute distress. Head/Face: atraumatic. Eyes: EOMI, no conjunctival erythema appreciated ENT: Moist Mucus Membranes Neck: Trachea midline, Supple Chest/axilla: Normal chest wall appearance and motion. Cardiovascular: Regular rate and rhythm. No edema appreciated Respiratory: Normal respirations, no respiratory distress appreciated Abdomen/GI: Non distended Back: Normal ROM Skin: General appearance color normal MS/ Extremity: Moves all extremities, no obvious deformities appreciated, no edema noted to the lower extremities Neuro: Awake and alert Psych: Behavior is normal, Mood is normal, Patient is cooperative and pleasant Vital Signs: 15:03 BP 141 / 62; Pulse 89; Resp 20; Temp 98.8; Pulse Ox 99% ; Weight 129.27 kg; Height 6 kb3 ft. 2 in. (187.96 cm); Pain 10/10; 15:33 BP 133 / 85; Pulse 86; Resp 18; Pulse Ox 97% on R/A; Pain 10/10; ll1 16:51 BP 117 / 73; Pulse 79; Resp 18; Pulse Ox 98% ; ll1 15:03 Body Mass Index 36.59 (129.27 kg, 187.96 cm) kb3 MDM: 15:10 [facility] medically screened. [facility] 16:46 Data reviewed: vital signs, nurses notes. Counseling: I had a detailed discussion with [facility] the patient and/or guardian regarding: the historical points, exam findings, and any diagnostic results supporting the discharge/admit diagnosis, the need for outpatient follow up, to return to the emergency department if symptoms worsen or persist or if there are any questions or concerns that arise at home. 08/10 15:12 Order name: Saline Lock; Complete Time: 15:30 [facility] Administered Medications: 15:25 Drug: NS 0.9% 1000 ml Route: IV; Rate: 1 bolus; Site: right antecubital; ll1 16:52 Follow up: Response: No adverse reaction; IV Status: Completed infusion; IV Intake: ll1 1000ml 15:26 Drug: diphenhydrAMINE 12.5 mg Route: IVP; Site: right antecubital; ll1 16:53 Follow up: Response: No adverse reaction; Pain is decreased; RASS: Alert and Calm (0) ll1 15:27 Drug: Decadron - Dexamethasone 10 mg Route: IVP; Site: right antecubital; ll1 16:53 Follow up: Response: No adverse reaction; Pain is decreased; RASS: Alert and Calm (0) ll1 15:28 Drug: HALdol (haloperidol) 5 mg Route: IVP; Site: right antecubital; ll1 16:52 Follow up: Response: No adverse reaction; Pain is decreased; RASS: Alert and Calm (0) 1 15:29 Drug: Ketamine 20 mg Route: IVP; Site: right antecubital; ll1 16:53 Follow up: Response: No adverse reaction; Pain is decreased; RASS: Alert and Calm (0) ll1 Disposition: 17:20 Co-signature as Attending Physician, Saran Acuña DO I was immediately available on-site ms3 in the Emergency Department for consultation in the care of the patient. Disposition Summary: 08/10/22 16:46 Discharge Ordered Location: Home jm Condition: Stable jmm Diagnosis - Migraine without aura, not intractable jmm Followup: jmm - With: Private Physician - When: 2 - 3 days - Reason: Recheck today's complaints, Continuance of care, Re-evaluation by your physician Discharge Instructions: - Discharge Summary Sheet jm - Migraine Headache jm Forms: - Medication Reconciliation Form jm - Thank You Letter jmm - Antibiotic Education jmm - Prescription Opioid Use jmm Signatures: Robert Villalobos PA PA jmm Lewis, Lynsay RN RN ll1 Saran Acuña DO DO ms3 Risa Calderon, RN RN kb3 Corrections: (The following items were deleted from the chart) 15:05 15:04 Home Meds: anastrozole Oral; kb3 kb3
[2022-08-10 16:57] VITALS: TEMP 98.8
[2022-08-10 17:00] VITALS: BP 117/73; O2SAT 98
== END 2022-08-10 16:53 | disposition home or self-care (01) ==
LOC: ER 14:37
DX: G43.009 Migraine without aura, not intractable, without status migrainosus (principal); E11.9 Type 2 diabetes mellitus without complications; Z79.4 Long term (current) use of insulin; Z88.0 Allergy status to penicillin; Z88.1 Allergy status to other antibiotic agents; Z88.2 Allergy status to sulfonamides; Z88.5 Allergy status to narcotic agent; Z88.8 Allergy status to other drugs, medicaments and biological substances; Z91.018 Allergy to other foods; Z91.048 Other nonmedicinal substance allergy status
CPT/HCPCS: 96361; 96375; 96374; 99283; J1630; J1200; J1100; J7030

== ENCOUNTER 2022-10-26 16:48 | Emergency (ER) | payer OTHER ==
--- OUTSIDE RECORDS SUMMARY | 2022-10-26 16:52 | XMS REPORT | Continuity of Care Document ---
:1970 Author Organization [facility] t Address [address] [place] [address] Care Team Providers Name Role Phone Pcp, Patient Does Not Have A Primary Care Physician [id number] YADIEL HAQ Attending Clinician Unavailable Yadiel Haq MD Attending Clinician DAVID NOVOA Attending Clinician Unavailable ALEXIS DAWN Attending Clinician Unavailable Alexis Dawn MD Attending Clinician STEPHANIE ONEAL Attending Clinician Unavailable Stephanie Adamson Attending Clinician Doctor Unassigned, [place] Attending Clinician Unavailable SILVINA SUN Attending Clinician [...] Effective Date Expiration Date [employer] [id number] 2021 EMPLOYEE[employer] 00:00:00 Problems Condition Condition Condition [...] of Current smoker University of tobacco use [facility] Exposure to 2022-07-02 2022-07-12 Not sure University SARS-CoV-2 00:00:00 20:23:00 [facility] (event) Branch Alcohol intake 2022-07-12 2022-07-12 Current drinker Unive rsity of 00:00:00 00:00:00 of alcohol [place] [facility] (finding) Branch History SDOH 2019-11-04 2019-11-04 5 University o f Financial 00:00:00 00:00:00 [facility] Tobacco use and 2019-11-03 2019-11-03 Smokeless tobacco Un iversity of exposure 00:00:00 00:00:00 non-user [facility] Sex Ass[birth year] At [birth year] Universit y of 00:00:00 00:00:00 [facility] Smoking Status Start Date Stop Date Source Ex-smoker 2019-11-03 00:00:00 2019-11-03 00:00:00 [facility] Branch Medications Ordered Filled Start [...] 06/21/22 at 1215, MANDEEP divalproex 2020-0 Yes [id number] 250mg Take 1 Univers ER 250 mg 8-10 tablet by ity o f 24 hr 00:00: mouth 2 [place] tablet 00 (two) Medical times Branch daily. divalproex 2020-0 Yes [id number] 250mg Take 1 Univers ER 250 mg 8-10 tablet by ity o f 24 hr 00:00: mouth 2 [place] tablet 00 (two) Medical times Branch daily. divalproex 2020-0 Yes [id number] 250mg Take 1 Univers ER 250 mg 8-10 tablet by ity o f 24 hr 00:00: mouth 2 [place] tablet 00 (two) Medical times Branch daily. divalproex 2020-0 Yes [id number] 250mg Take 1 Univers ER 250 mg 8-10 tablet by ity o f 24 hr 00:00: mouth 2 [place] tablet 00 (two) Medical times Branch daily. divalproex 2020-0 Yes [id number] 250mg Take 1 Univers ER 250 mg 8-10 tablet by ity o f 24 hr 00:00: mouth 2 [place] tablet 00 (two) Medical times Branch daily. divalproex 2020-0 Yes [id number] 250mg Take 1 Univers ER 250 mg [...] 1,000 mL 00 :00 IV Medical Infusion, Redig ONCE, 1 dose, 02/19/20 at 1800, STAT [...] 1,000 mL 00 :00 IV Medical Infusion, Redig ONCE, 1 dose, 02/19/20 at 1645, STAT [...] Sat Medic al 900 mg/50 02/19/20 at [facility] h mL IV 1645, 50 [...] Branch 1630, MANDEEP traMADol 50 2019-0 Yes [id number] 50mg Take 1 Univers mg tablet 6-06 tablet by ity o f 00:00: mouth [place] 00 every 6 Medical (six) Branch hours as needed for Pain (scale 4-6). traMADol 50 2019-0 Yes [id number] 50mg Take 1 Univers mg tablet 6-06 tablet by ity o f 00:00: mouth [place] 00 every 6 Medical (six) Branch hours as needed for Pain (scale 4-6). traMADol 50 2019-0 Yes [id number] 50mg Take 1 Univers mg tablet 6-06 tablet by ity o f 00:00: mouth [place] 00 every 6 Medical (six) Branch hours as needed for Pain (scale 4-6). traMADol 50 2019-0 Yes [id number] 50mg Take 1 Univers mg tablet 6-06 tablet by ity o f 00:00: mouth [place] 00 every 6 Medical (six) Branch hours as needed for Pain (scale 4-6). traMADol 50 2020-0 Yes [id number] 50mg Take 1 Univers mg tablet 6-06 tablet by ity o f 00:00: mouth [place] 00 every 6 Medical (six) Branch hours as needed for Pain (scale 4-6). traMADol 50 2020-0 Yes [id number] 50mg Take 1 Univers mg tablet 6-06 tablet by ity o f 00:00: mouth [place] 00 every 6 Medical (six) Branch hours as needed for Pain (scale 4-6). traMADol 50 2020-0 Yes [id number] 50mg Take 1 Univers mg tablet 6-06 tablet by ity o f 00:00: mouth [place] 00 every 6 Medical (six) Branch hours as needed for Pain (scale 4-6). traMADol 50 2020-0 Yes [id number] 50mg Take 1 Univers mg tablet 6-06 tablet by ity o f 00:00: mouth [place] 00 every 6 Medical (six) Branch hours as needed for Pain (scale 4-6). traMADol 50 2020-0 Yes [id number] 50mg Take 1 Univers mg tablet 6-06 tablet by ity o f 00:00: mouth [place] 00 every 6 Medical (six) Branch hours as needed for Pain (scale 4-6). traMADol 50 2020-0 Yes [id number] 50mg Take 1 Univers mg tablet 6-06 tablet by ity o f 00:00: mouth [place] 00 every 6 Medical (six) Branch hours as needed for Pain (scale 4-6). clindamycin 2019-0 2020- No [id number] 450mg Take 3 Univers 150 mg 6- 06-17 capsules ity of capsule 00:00: 04:59 by mouth 3 [place] as 00 :00 (three) Medical times Branch daily for 10 days. glipiZIDE 2020-0 Yes [id number] 10mg Take 1 Un grabiel 10 mg 2-22 tablet by ity of tablet 00:00: mouth 2 [place] 00 (two) Medical times Branch daily before breakfast and dinner. HYDROcodone 2020-0 Yes [id number] 1{tbl} Take 1 Univers -acetaminop 2-22 tablet by ity of hen 5-325 00:00: mouth [place] mg tablet 00 every 6 Medical (six) Branch hours as needed for Pain (scale 7-10). glipiZIDE 2020-0 Yes [id number] 10mg Take 1 Un grabiel 10 mg 2-22 tablet by ity of tablet 00:00: mouth 2 [place] 00 (two) Medical times Branch daily before breakfast and dinner. HYDROcodone 2020-0 Yes [id number] 1{tbl} Take 1 Univers -acetaminop 2-22 tablet by ity of hen 5-325 00:00: mouth [place] mg tablet 00 every 6 Medical (six) Branch hours as needed for Pain (scale 7-10). glipiZIDE 2020-0 Yes [id number] 10mg Take 1 Un grabiel 10 mg 2-22 tablet by ity of tablet 00:00: mouth 2 [place] 00 (two) Medical times Branch daily before breakfast and dinner. HYDROcodone 2020-0 Yes [id number] 1{tbl} Take 1 Univers -acetaminop 2-22 tablet by ity of hen 5-325 00:00: mouth [place] mg tablet 00 every 6 Medical (six) Branch hours as needed for Pain (scale 7-10). glipiZIDE 2020-0 Yes [id number] 10mg Take 1 Un grabiel 10 mg 2-22 tablet by ity of tablet 00:00: mouth 2 [place] 00 (two) Medical times Branch daily before breakfast and dinner. HYDROcodone 2020-0 Yes [id number] 1{tbl} Take 1 Univers -acetaminop 2-22 tablet by ity of hen 5-325 00:00: mouth [place] mg tablet 00 every 6 Medical (six) Branch hours as needed for Pain (scale 7-10). glipiZIDE 2020-0 Yes [id number] 10mg Take 1 Un grabiel 10 mg 2-22 tablet by ity of tablet 00:00: mouth 2 [place] 00 (two) Medical times Branch daily before breakfast and dinner. HYDROcodone 2020-0 Yes [id number] 1{tbl} Take 1 Univers -acetaminop 2-22 tablet by ity of hen 5-325 00:00: mouth [place] mg tablet 00 every 6 Medical (six) Branch hours as needed for Pain (scale 7-10). glipiZIDE 2020-0 Yes [id number] 10mg Take 1 Un grabiel 10 mg 2-22 tablet by ity of tablet 00:00: mouth 2 [place] 00 (two) Medical times Branch daily before breakfast and dinner. HYDROcodone 2020-0 Yes [id number] 1{tbl} Take 1 Univers -acetaminop 2-22 tablet by ity of hen 5-325 00:00: mouth [place] mg tablet 00 every 6 Medical (six) Branch hours as needed for Pain (scale 7-10). glipiZIDE 2020-0 Yes [id number] 10mg Take 1 Un grabiel 10 mg 2-22 tablet by ity of tablet 00:00: mouth 2 [place] 00 (two) Medical times Branch daily before breakfast and dinner. HYDROcodone 2020-0 Yes [id number] 1{tbl} Take 1 Univers -acetaminop 2-22 tablet by ity of hen 5-325 00:00: mouth [place] mg tablet 00 every 6 Medical (six) Branch hours as needed for Pain (scale 7-10). glipiZIDE 2020-0 Yes [id number] 10mg Take 1 Un grabiel 10 mg 2-22 tablet by ity of tablet 00:00: mouth 2 [place] 00 (two) Medical times Branch daily before breakfast and dinner. HYDROcodone 2020-0 Yes [id number] 1{tbl} Take 1 Univers -acetaminop 2-22 tablet by ity of hen 5-325 00:00: mouth [place] mg tablet 00 every 6 Medical (six) Branch hours as needed for Pain (scale 7-10). glipiZIDE 2020-0 Yes [id number] 10mg Take 1 Un grabiel 10 mg 2-22 tablet by ity of tablet 00:00: mouth 2 [place] 00 (two) Medical times Branch daily before breakfast and dinner. glipiZIDE 2020-0 Yes [id number] 10mg Take 1 Un grabiel 10 mg 2-22 tablet by ity of tablet 00:00: mouth 2 [place] 00 (two) Medical times Branch daily before breakfast and dinner. HYDROcodone 2020-0 Yes [id number] 1{tbl} Take 1 Univers -acetaminop 2-22 tablet by ity of hen 5-325 00:00: mouth [place] mg tablet 00 every 6 Medical (six) Branch hours as needed for Pain (scale 7-10). HYDROcodone 2020-0 Yes [id number] 1{tbl} Take 1 Univers -acetaminop 2-22 tablet by ity of hen 5-325 00:00: mouth [place] mg tablet 00 every 6 Medical (six) Branch hours as needed for Pain (scale 7-10). glipiZIDE 2020-0 Yes [id number] 10mg Take 1 Un grabiel 10 mg 2-22 tablet by ity of tablet 00:00: mouth 2 [place] 00 (two) Medical times Branch daily before breakfast and dinner. HYDROcodone 2020-0 Yes [id number] 1{tbl} Take 1 Univers -acetaminop 2-22 tablet by ity of hen 5-325 00:00: mouth [place] mg tablet 00 every 6 Medical (six) Branch hours as needed for Pain (scale 7-10). glipiZIDE 2020-0 Yes [id number] 10mg Take 1 Un grabiel 10 mg 2-22 tablet by ity of tablet 00:00: mouth 2 [place] 00 (two) Medical times Branch daily before breakfast and dinner. HYDROcodone 2020-0 Yes [id number] 1{tbl} Take 1 Univers -acetaminop 2-22 tablet by ity of hen 5-325 00:00: mouth [place] mg tablet 00 every 6 Medical (six) Branch hours as needed for Pain (scale 7-10). glipiZIDE 2020-0 Yes [id number] 10mg Take 1 Un grabiel 10 mg 2-22 tablet by ity of tablet 00:00: mouth 2 [place] 00 (two) Medical times Branch daily before breakfast and dinner. HYDROcodone 2020-0 Yes [id number] 1{tbl} Take 1 Univers -acetaminop 2-22 tablet by ity of hen 5-325 00:00: mouth [place] mg tablet 00 every 6 Medical (six) Branch hours as needed for Pain (scale 7-10). ciprofloxac 2020-0 2020- No [id number] 500mg Take 1 Univers in HCl 500 -04 12-01 tablet by ity of mg tablet 00:00: 05:59 mouth [place] 00 :00 every 12 Medical (twelve) Branch hours for 7 days. metroNIDAZO 2020-0 2020- No [id number] 500mg Take 1 Univers LE 500 mg [...] IV Push, ity of (PF)) 21:40: Q6HPRN, [place] injection 4 10 Starting Medi kyrie mg Wed Branch 11/03/19 at 1540, Until Discontinu ed, Routine, Nausea and Vomiting (N/V) metroNIDAZO 2019-0 2020- No 500mg 500 mg, IV Univers LE (FLAGYL 11-03 Piggyback, it y of I.V.) 19:30: 19:55 ONCE, 1 [place] Piggyback 00 :00 dose, Wed Medic al [...] Branch 1100, MANDEEP cyclobenzap 2018-09 2020- No [id number] 5mg Take 1 Univers rine 5 mg 11-06 9100 tablet by ity of tablet 00:00: 00:00 mouth 3 [place] 00 :00 (three) Medical times Branch daily. traMADol 2018-09- No [id number] 50mg Take 1 Univers (ULTRAM) 50 11-06 [...] 02:00:00 165 mm[Hg] Univer sity of pressure [facility] Diastolic blood 2022-07-13 02:00:00 96 mm[Hg] [facility] Heart rate 2022-07-13 02:00:00 88 /min Universi ty of [place] [facility] Respiratory rate 2022-07-13 02:00:00 18 /min Univ ersity of [place] [facility] Oxygen saturation in 2022-07-13 02:00:00 98 /min University of Arterial blood by [place] [employer]ip[employer] kyrie Pulse oximetry Branch Body temperature 2022-07-13 01:48:00 37 Leonor Univ ersity of [place] [facility] Body height 2022-07-13 01:25:00 188 cm Universi ty of [place] [facility] Body weight 2022-07-13 01:25:00 129.275 kg Universi ty of [place] [facility] BMI 2022-07-13 01:25:00 36.59 kg/m2 Universi ty of [place] [facility] Systolic blood 2022-07-07 02:21:33 135 mm[Hg] Univer sity of pressure [place] [facility] Diastolic blood 2022-07-07 02:21:33 81 mm[Hg] Unive rsity of pressure [place] [facility] Heart rate 2022-07-07 02:21:33 93 /min Universi ty of [place] [facility] Respiratory rate 2022-07-07 02:21:33 18 /min Univ ersity of [place] [facility] Oxygen saturation in 2022-07-07 02:21:33 96 /min University of Arterial blood by [place] [employer] kyrie Pulse oximetry Branch Body temperature 2022-07-07 00:44:00 37 Leonor Univ ersity of [place] [facility] Body height 2022-07-07 00:44:00 188 cm Universi ty of [place] [facility] Body weight 2022-07-07 00:44:00 129.275 kg Universi ty of [place] [facility] BMI 2022-07-07 00:44:00 36.59 kg/m2 [...] 99 /min University of Arterial blood by [place] [employer] kyrie Pulse oximetry Branch Body temperature 2022-06-21 16:02:00 37.06 Leonor Univ ersity of [place] [facility] Redig Body height 2022-06-21 16:02:00 188 cm Universi ty of [place] [facility] Redig Body weight 2022-06-21 16:02:00 127.007 kg Universi ty of [place] [facility] BMI 2022-06-21 16:02:00 35.95 kg/m2 Universi ty of [facility] Systolic blood 2020-04-24 13:23:00 129 mm[Hg] Univer sity of pressure [place] [facility] Redig Diastolic blood 2020-04-24 13:23:00 81 mm[Hg] Unive rsity of pressure [facility] Heart rate 2020-04-24 13:23:00 82 /min Universi ty of [place] [facility] Redig Body weight 2020-04-24 13:23:00 138.075 kg Universi ty of [place] [facility] Redig BMI 2020-04-24 13:23:00 39.08 kg/m2 Universi ty of [facility] Systolic blood 2020-04-24 13:23:00 129 mm[Hg] Univer sity of pressure [place] [facility] Diastolic blood 2020-04-24 13:23:00 81 mm[Hg] Unive rsity of pressure [place] [facility] Redig Heart rate 2020-04-24 13:23:00 82 /min Universi ty of [place] [facility] Redig Body weight 2020-04-24 13:23:00 138.075 kg Universi ty of [place] [facility] BMI 2020-04-24 13:23:00 39.08 kg/m2 Universi ty of [facility] Branch Systolic blood 2020-04-07 03:51:00 118 mm[Hg] Univer sity of pressure [facility] Diastolic blood 2020-04-07 03:51:00 68 mm[Hg] Unive rsity of pressure [place] [facility] Redig Heart rate 2020-04-07 03:51:00 92 /min Universi ty of [facility] Branch Respiratory rate 2020-04-07 03:51:00 16 /min Univ ersity of [facility] Oxygen saturation in 2020-04-07 03:51:00 100 /min [facility] Arterial blood by [facility] Pulse oximetry Branch Body temperature 2020-04-07 03:40:00 36.44 Leonor Univ ersity of [place] [facility] Redig Body weight 2020-04-07 00:07:00 129.275 kg Universi ty of [place] [facility] BMI 2020-04-07 00:07:00 36.59 kg/m2 Universi ty of [place] [facility] Heart rate 2020-02-19 23:10:00 105 /min Universi ty of [place] [facility] Respiratory rate 2020-02-19 23:10:00 29 /min Univ ersity of [facility] Branch Oxygen saturation in 2020-02-19 23:10:00 94 /min University of Arterial blood by [place] [employer] kyrie Pulse oximetry Branch Systolic blood 2020-02-19 23:00:00 127 mm[Hg] Univer sity of pressure [place] [facility] Diastolic blood 2020-02-19 23:00:00 78 mm[Hg] Unive rsity of pressure [facility] Body temperature 2020-02-19 22:04:10 37.33 Leonor Univ ersity of [facility] Body height 2020-02-19 19:56:00 188 cm Universi ty of [place] [facility] Redig Body weight 2020-02-19 19:56:00 129.275 kg Universi ty of [place] [facility] BMI 2020-02-19 19:56:00 36.59 kg/m2 Universi ty of [place] [facility] Systolic blood 2019-11-06 17:14:00 138 mm[Hg] Univer sity of pressure [facility] Branch Diastolic blood 2019-11-06 17:14:00 88 mm[Hg] Unive rsity of pressure [facility] Heart rate 2019-11-06 17:14:00 102 /min Universi ty of [facility] Respiratory rate 2019-11-06 17:14:00 18 /min Univ ersity of [facility] Oxygen saturation in 2019-11-06 17:14:00 96 /min University of Arterial blood by [facility] kyrie Pulse oximetry Branch Body temperature 2019-11-06 14:00:00 36.72 Leonor Univ ersity of [place] [facility] Body height 2019-11-03 23:00:00 188 cm Universi ty of [place] [facility] Body weight 2019-11-03 15:22:00 129.275 kg Universi ty of [facility] Branch BMI 2019-11-03 15:22:00 36.58 kg/m2 Universi ty of [facility] Branch Procedures Procedure Date / Time Performing Clinician Source Performed CONSENT/REFUSAL FOR 2022-07-13 01:17:58 Doctor Unassigned, No Un [facility] DIAGNOSIS AND TREATMENT Name Medical Branch CONSENT/REFUSAL FOR 2022-07-07 00:35:11 Doctor Unassigned, No Un iversity of [place] DIAGNOSIS AND TREATMENT Name Medical Branch CT HEAD WO CONTRAST 2022-06-21 17:34:58 Stephanie Oneal [facility] Medical Redig XR CHEST 1 VW 2022-06-21 16:37:[address] [facility] TROPONIN I 2022-06-21 16:28:[address] [facility] BASIC METABOLIC PANEL 2022-06-21 16:28:00 Stephanie Oneal [facility] (NA, K, CL, CO2, Medical Branch GLUCOSE, BUN, CREATININE, CA) CBC WITH DIFF 2022-06-21 16:28:[address] [facility] NOTICE OF PRIVACY 2022-06-21 15:51:50 [facility], No [facility] CONSENT/REFUSAL FOR 2022-06-21 15:51:34 Doctor Unassigned, No Un iversity of [place] DIAGNOSIS AND TREATMENT Name Medical Redig EGD (ENDO) 2020-04-07 02:31:21 Lisa Armendariz [facility] COMP. METABOLIC PANEL 2020-04-07 01:52:00 Yazmin Apple [facility] ([id number]) Medical Branch CBC WITH DIFF 2020-04-07 01:52:[address] [facility] XR NECK SOFT TISSUE 2020-04-07 00:57:29 Yazmin Apple [facility] COVID-19 (ID NOW RAPID 2020-04-07 00:40:00 Yazmin Apple [facility] TESTING) Medical Branch NOTICE OF PRIVACY 2020-04-06 23:57:19 Doctor [facility]igned, [facility] Name Medical Branch CONSENT/REFUSAL FOR 2020-04-06 23:57:05 Doctor Unassigned, No Un iversity of [place] DIAGNOSIS AND TREATMENT Name Medical Branch REFERRAL- 2020-03-29 05:01:00 Doctor Unassigned, No [facility] REQUEST/RESPONSE Name Medical Branch POCT GLUCOSE 2020-02-19 23:05:00 Stephanie Oneal [facility] (AUTOMATED) Medical Branch POCT GLUCOSE 2020-02-19 21:52:00 Stephanie Oneal [facility] (AUTOMATED) Medical Branch COMP. METABOLIC PANEL 2020-02-19 20:47:00 Stephanie Oneal [facility] ([id number]) Medical Branch CBC WITH DIFFERENTIAL 2020-02-19 20:47:00 Stephanie Oneal [facility] Medical Branch COVID-19 (ID NOW RAPID 2020-02-19 20:47:00 Stephanie Oneal [facility] TESTING) Medical Branch NOTICE OF PRIVACY 2020-02-19 19:53:34 Doctor Unassigned, No [facility] PRACTICES Name Medical Branch CONSENT/REFUSAL FOR 2020-02-19 19:53:23 Doctor Unassigned, No [facility] DIAGNOSIS AND TREATMENT Name Medical Branch POCT GLUCOSE 2019-11-06 13:36:00 Pavithra [facility] (AUTOMATED) Medical Branch POCT GLUCOSE 2019-11-06 01:48:00 Pavithra [facility] (AUTOMATED) Medical Branch POCT GLUCOSE 2019-11-05 22:16:00 Pavithra [facility] (AUTOMATED) Medical Branch POCT GLUCOSE 2019-11-05 17:26:00 Pavithra [facility] (AUTOMATED) Medical Branch POCT GLUCOSE 2019-11-05 13:21:00 Pavithra [facility] (AUTOMATED) Medical Branch BASIC METABOLIC PANEL 2019-11-05 10:28:00 [facility] (NA, K, CL, CO2, Medical Branch GLUCOSE, BUN, CREATININE, CA) CBC WITH DIFFERENTIAL 2019-11-05 10:28[facility] POCT GLUCOSE 2019-11-05 10:12:00 Pavithra [facility] (AUTOMATED) Medical Branch POCT GLUCOSE 2019-11-05 06:12:00 Pavithra [facility] (AUTOMATED) Medical Branch POCT GLUCOSE 2019-11-05 01:41:00 Pavithra [facility] (AUTOMATED) Medical Branch POCT GLUCOSE 2019-11-04 22:26:00 Pavithra [facility] (AUTOMATED) Medical Branch POCT GLUCOSE 2019-11-04 17:20:00 Pavithra [facility] (AUTOMATED) Medical Branch POCT GLUCOSE 2019-11-04 13:21:00 Pavithra [facility] (AUTOMATED) Medical Branch POCT GLUCOSE 2019-11-04 11:57:00 Pavithra [facility] (AUTOMATED) Medical Branch POCT GLUCOSE 2019-11-04 05:30:00 Pavithra [facility] (AUTOMATED) Medical Branch POCT GLUCOSE 2019-11-04 02:17:00 Pavithra [facility] (AUTOMATED) Medical Branch POCT GLUCOSE 2019-11-03 23:23:00 Pavithra [facility] (AUTOMATED) Medical Branch POCT GLUCOSE 2019-11-03 21:41:00 Pavithra [facility] (AUTOMATED) [facility] SURGICAL PATHOLOGY EXAM 2019-11-03 20:26:00 [facility] 2019-11-03 19:24:00 Yonatan [facility] APPENDECTOMY [facility] CT ABDOMEN PELVIS W 2019-11-03 17:41:22 Ervin Rhoades [facility] CONTRAST [facility] Branch LIPASE 2019-11-03 15:35:00 [facility] COMP. METABOLIC PANEL 2019-11-03 15:35:00 Ervin Rhoades [facility] ([id number]) [facility] CBC WITH DIFFERENTIAL 2019-11-03 15:35:00 Jf Ervin [facility] GLYCOSYLATED HEMOGLOBIN 2019-11-03 15:35:00 Stephanie P[facility] (A1C) [facility] URINALYSIS 2019-11-03 15:35:00 [facility] Start End Encounter Admission Attending Care Care Encounter Source Date/Time Date/Time Type Type Clinicians Facility Department ID 2022-07-12 2022-07-12 Emergency X TAVO [facility] ERT [id number] Univers 20:32:00 22:17:00 YADIEL osman [facility] 2022-07-12 2022-07-12 Emergency [facility] [id number] Univers 20:32:00 22:17:00 Yadiel PATEL [id number] i ty of [place] [id number] [facility] [id number] [address] 2022-07-12 2022-07-12 Outpatient Tanja NOVOA, [facility] [id number] Univers 08:40:00 08:40:00 DAVID victor manuel [facility] 2022-07-06 2022-07-06 [facility] [id number] Univers 19:49:00 23:18:00 ALEXIS victor manuel [facility] 2022-07-06 2022-07-06 Emergency [facility] [id number] Univers 19:49:00 23:18:00 Alexis Monroy AMANDA [id number] ity of [place] 4.2.7.[address] [place] [id number] 2022-06-21 2022-06-21 [facility] [id number] Univers 11:04:00 13:54:00 STEPHANIE [facility] 2022-06-21 2022-06-21 [facility] [id number] Univers 11:04:00 13:54:00 Stephanie Monroy AMANDA [id number] i ty of [place] [id number] [facility] [id number] [address] 2022-06-21 2022-06-21 Orders Doctor NAREN [id number] Univers 00:00:00 00:00:00 Only Unassigned, MIRI [id number] ity of [place] [facility] [id number] [facility] [id number] [address] 2020-08-15 2020-08-15 [facility] [id number] Univers 10:00:00 10:00:00 SILVINA osman [facility] 2020-04-24 2020-04-24 Office Dolores, [facility] [id number] 08:15:37 08:49:56 Visit Norberto Kothari Amanda [id number] Mall[place] [id number] Professio [id number] nal [address] [place] [address] 2020-04-24 2020-04-24 Office Dolores [facility] [id number] Univers 08:15:37 08:49:56 Visit Norberto Patel [id number] ity of [place] [id number] [place] [id number] [place] dical [address] 2020-04-24 2020-04-24 Outpatient R NORBERTO BERNAL [facility] [id number] Univers 08:00:00 08:00:00 NORBERTO BERNAL ity of [facility] 2020-04-06 2020-04-06 Emergency Yazmin Apple [facility] 1.2.840.114 [id number] Univers 19:12:13 22:55:00 Melanie Patel 350.1.13.10 [phone] [address] 2020-04-06 2020-04-06 Emergency X Yazmin APPLE [facility] ERT [id number] Univers 19:12:13 19:12:13 ity of [facility] 2020-04-06 2020-04-06 Orders Doctor SNEED 1.2.840.114 [id number] Univers 00:00:00 00:00:00 Only Unassigned, MIRI 350.1.13.10 ity of [place] [facility] 4.2.7.2.686 Danie as [phone] [address] 2020-03-29 2020-03-29 Orders Doctor SNEED 1.2.840.114 [id number] Univers 00:00:00 00:00:00 Only Unassigned, MIRI 350.1.13.10 ity of [place] [facility] 4.2.7.2.686 Danie as [phone] [address] 2020-02-19 2020-02-19 Emergency Jm [facility] 1.2.827.720 [id number] Univers 15:07:18 19:22:00 Stephanie Patel 350.1.13.10 i ty of [place] 4.2.7.2.686 [facility] [phone] [facility] [address] 2020-02-19 2020-02-19 Emergency X [facility] ERT [id number] Univers 14:53:00 14:53:00 ity of [facility] 2020-02-19 2020-02-19 Orders Doctor NAREN 1.2.840.114 [id number] Univers 00:00:00 00:00:00 Only Unassigned, MIRI 350.1.13.10 [facility]y of [place] [facility] 4.2.7.2.686 [place]ie [phone] [facility] [address] 2019-11-08 2019-11-08 Transition Faraz Nicolas 1.2.840.114 [id number] Univers 00:00:00 00:00:00 of Care Hortensia De Jesus 350.1.13.10 ity of [place] 4.2.7.2.686 [facility] [phone] [facility] [address] 2019-11-03 2019-11-06 Hospital Ervin Rhoades [facility] 1.2.840.1 14 [id number] Univers 09:25:15 12:00:00 Encounter Luis Arshad 350.1.13.10 ity of [place] 4.2.7.2.686 [facility] [phone] [facility] [address] 2019-11-03 2019-11-06 Inpatient X PAVITHRA PAARIANA TIMOTEO [id number] Univers 09:25:15 12:00:00 [facility] Results Test Description Test Time Test Comments Results Result Comments Source TROPONIN I 2022-06-21 17:02:55 Test Item Value Reference Range Interpretation Comme nts TROPONIN I (test code = 0.004 ng/mL See_Comment [Au tomated message] The [id number]) system which ge nerated this result tra [...] biotin. Lab Interpretation Normal (test code = 21901-2) [facility] METABOLIC PANEL (NA, K, CL, CO2, GLUCOSE, BUN, CREATININE, CA)2022-06-21 16:50:52 Test Item Value Reference Range Interpretation Comments NA (test code = 137 mmol/L 135-145 2788900707) K (test code = 4.6 mmol/L 3.5-5 5496055771) CL (test code = 97 mmol/L 98-108 L 5283510363) CO2 TOTAL (test code = 30 mmol/L 23-31 4088735152) AGAP (test code = 2-16 5165676331) BUN (test code = 11 mg/dL 7-23 0430632802) GLUCOSE (test code = 214 mg/dL 70-110 H 3957861394) CREATININE (test code = 1.16 mg/dL 0.6-1.25 1941893222) CALCIUM (test code = 8.5 mg/dL 8.6-10.6 L 3226579339) eGFR (test code = mL/min/1.73m2 3884451766) KATE (test code = KATE) Association of [...] tests). Lab Interpretation Abnormal (test code = 77411-5) [facility] WITH [id number] 16:39:51 Test Item Value Reference Range Interpretation Comments WBC (test code = See_Comment [Automated 6990-2) message] The sy stem which generated this result transmitted reference range : 4.20 - 10.70 10*3/?L. The reference range was not used to interpret this result as normal/abnormal . RBC (test code = See_Comment H [Automated 999-8) message] The sy stem which generated this [...] (test code = 37.0 fL 38.5-51.6 L 36379-9) RDW-CV (test code = 13.2 % 12.1-15.4 788-0) PLT (test code = See_Comment [Automated 767-3) message] The sy stem which generated this result transmitted reference range : 150 - 328 10*3/ ?L. The reference r jevon was not used to interpret this result as normal/abnormal . MPV (test code = 11.1 fL 9.8-13 36281-3) NRBC/100 WBC (test See_Comment [Automat ed code = 4181653983) message] The system which generated this result transmitted reference range : 0.0 - 10.0 /100 WBCs. The refer ence range was not u sed to interpret th is result as normal/abnormal . NRBC x10^3 (test code See_Comment [Auto mated = 1073827820) message] The s ystem which generated this result transmitted reference range : 10*3/?L. The reference range was not used to interpret this result as normal/abnormal . GRAN MAT (NEUT) % 67.3 % (test code = 770-8) IMM GRAN % (test code 0.20 % = 1619386355) LYMPH % (test code = 23.5 % 736-9) MONO % (test code = 5.7 % 5905-5) EOS % (test code = 2.6 % 713-8) BASO % (test code = 0.7 % 706-2) GRAN MAT x10^3(ANC) 3.93 10*3/uL 1.99-6.95 (test code = 0339638338) IMM GRAN x10^3 (test 0-0.06 code = 2587119476) LYMPH x10^3 (test code 1.37 10*3/uL 1.09-3.23 = 731-0) MONO x10^3 (test code 0.33 10*3/uL 0.36-1.02 L = 742-7) EOS x10^3 (test code = 0.15 10*3/uL 0.06-0.53 711-2) BASO x10^3 (test code 0.04 10*3/uL 0.01-0.09 = 704-7) Lab Interpretation Abnormal (test code = 79974-3) [facility] ([id number][facility]2020-04-07 03:03:00 Test Item Value Reference Range Interpretation Comments NA (test code = 139 mmol/L 135-145 3732326379) K (test code = 4.4 mmol/L 3.5-5 6119722057) CL (test code = 101 mmol/L 98-108 8961401929) CO2 TOTAL (test code = 28 mmol/L 23-31 1632571116) AGAP (test code = 2-16 3754327793) BUN (test code = 11 mg/dL 7-23 5556702478) GLUCOSE (test code = 225 mg/dL 70-110 H 1946494617) CREATININE (test code = 0.98 mg/dL 0.6-1.25 6449539505) TOTAL BILI (test code = 0.5 mg/dL 0.1-1.6 2290370306) CALCIUM (test code = 9.6 mg/dL 8.6-10.6 5832450676) T PROTEIN (test code = 8.2 g/dL 6.3-8.2 5751867436) ALBUMIN (test code = 4.7 g/dL 3.5-5 5465067726) ALK PHOS (test code = 75 U/L 34-122 0389565555) ALTv (test code = 74 U/L 5-50 H 1742-6) AST(SGOT) (test code = 39 U/L 13-40 9261763916) eGFR Calculation mL/min/1.73m2 (Non-) (test code = 5395514684) eGFR Calculation mL/min/1.73m2 () (test code = 7791151846) KATE (test code = KAET) Association of Glomerular Filtration Rate (GFR) and [...] tests). Lab Interpretation Abnormal (test code = 36974-4) [facility] WITH [id number] 02:12:00 Test Item Value Reference Range Interpretation Comments WBC (test code = See_Comment [Automated 4176-2) message] The sy stem which generated this result transmitted reference range : 4.20 - 10.70 10*3/?L. The reference range was not used to interpret this result as normal/abnormal . RBC (test code = See_Comment H [Automated 699-8) message] The sy stem which generated this [...] (test code = 36.4 fL 38.5-51.6 L 14657-4) RDW-CV (test code = 12.5 % 12.1-15.4 788-0) PLT (test code = See_Comment [Automated 777-3) message] The sy stem which generated this result transmitted reference range : 150 - 328 10*3/ ?L. The reference r jevon was not used to interpret this result as normal/abnormal . MPV (test code = 11.5 fL 9.8-13 59308-3) NRBC/100 WBC (test See_Comment [Automat ed code = 8833579678) message] The system which generated this result transmitted reference range : 0.0 - 10.0 /100 WBCs. The refer ence range was not u sed to interpret th is result as normal/abnormal . NRBC x10^3 (test code <0.01 See_Comment [Auto mated = 7353413327) message] The s ystem which generated this result transmitted reference range : 10*3/?L. The reference range was not used to interpret this result as normal/abnormal . GRAN MAT (NEUT) % 68.0 % (test code = 770-8) IMM GRAN % (test code 0.40 % = 5649829971) LYMPH % (test code = 23.8 % 736-9) MONO % (test code = 4.7 % 5905-5) EOS % (test code = 2.7 % 713-8) BASO % (test code = 0.4 % 706-2) GRAN MAT x10^3(ANC) 5.24 10*3/uL 1.99-6.95 (test code = 1069200895) IMM GRAN x10^3 (test 0.03 10*3/uL 0-0.06 code = 4716563366) LYMPH x10^3 (test code 1.83 10*3/uL 1.09-3.23 = 731-0) MONO x10^3 (test code 0.36 10*3/uL 0.36-1.02 = 742-7) EOS x10^3 (test code = 0.21 10*3/uL 0.06-0.53 711-2) BASO x10^3 (test code 0.03 10*3/uL 0.01-0.09 = 704-7) Lab Interpretation Abnormal (test code = 89403-6) [facility] NOW RAPID TESTING)2020-04-07 01:40:00 Test Item Value Reference Range Interpretation Comments SARS-CoV-2 Rapid ID NOW Not Detected Not Detected (test code = 07004-1) KATE (test code = KATE) ID NOW COVID-19 Assay is an isothermal nucleic acid amplification test intended for the qualitative detection of nucleic acid from SARS-CoV-2 viral RNA in nasopharyngeal (BOATWRIGHT) specimens. It is used under Emergency Use [...] indicated. Lab Interpretation Normal (test code = 36766-7) [facility] NECK SOFT [id number] 01:06:58 FINDINGS/IMPRESSION:: Frontal and lateral radiographs of [...] spondylotic changes at C5-C6. Cervical spine is otherwiseunremarkable.[facility] GLUCOSE (AUTOMATED)2020-02-19 23:08:00 Test Item Value Reference Range Interpretation Comments POCT GLU (test code = 1870268266) 243 mg/dL 70-110 H Lab Interpretation (test code = Abnormal 75805-9) [facility] GLUCOSE (AUTOMATED)2020-02-19 21:58:00 Test Item Value Reference Range Interpretation Comments POCT GLU (test code = 0297972267) 313 mg/dL 70-110 H Lab Interpretation (test code = Abnormal 36572-0) [facility] (ID NOW RAPID TESTING)2020-02-19 21:31:00 Test Item Value Reference Range Interpretation Comments SARS-CoV-2 Rapid ID NOW Not Detected Not Detected (test code = 20349-0) KATE (test code = KATE) ID NOW COVID-19 Assay is an isothermal nucleic acid amplification test intended for the qualitative detection of nucleic acid from SARS-CoV-2 viral RNA in nasopharyngeal (BOATWRIGHT) specimens. It is used under Emergency Use [...] indicated. Lab Interpretation Normal (test code = 55993-5) [facility] MET[facility]OLIC PANEL (18623)2020-02-19 21:29:00 Test Item Value Reference Range Interpretation Comments NA (test code = 134 mmol/L 135-145 L 9586947813) K (test code = 4.1 mmol/L 3.5-5 3700280954) CL (test code = 99 mmol/L 98-108 2112038583) CO2 TOTAL (test code = 27 mmol/L 23-31 8999533282) AGAP (test code = 2-16 0712567986) BUN (test code = 10 mg/dL 7-23 5446905527) GLUCOSE (test code = 372 mg/dL 70-110 H 0269357724) CREATININE (test code = 0.96 mg/dL 0.6-1.25 6524664282) TOTAL BILI (test code = 0.4 mg/dL 0.1-1.2 3030347398) CALCIUM (test code = 9.2 mg/dL 8.6-10.6 6829717841) T PROTEIN (test code = 7.5 g/dL 6.3-8.2 0108877995) ALBUMIN (test code = 4.5 g/dL 3.5-5 5962949425) ALK PHOS (test code = 86 U/L 34-122 8959021914) ALTv (test code = 48 U/L 5-50 1742-6) AST(SGOT) (test code = 27 U/L 13-40 5112276350) eGFR Calculation mL/min/1.73m2 (Non-) (test code = 0576370123) eGFR Calculation mL/min/1.73m2 () (test code = 4530330760) KATE (test code = KATE) Association of [...] tests). Lab Interpretation Abnormal (test code = 40349-8) [facility] WITH [id number] 21:06:00 Test Item Value Reference Range Interpretation Comments WBC (test code = See_Comment [Automated 8590-2) message] The sy stem which generated this [...] (test code = 36.3 fL 38.5-51.6 L 73666-2) RDW-CV (test code = 12.9 % 12.1-15.4 788-0) PLT (test code = See_Comment [Automated 777-3) message] The sy stem which generated this result transmitted reference range : 150 - 328 10*3/ ?L. The reference r jevon was not used to interpret this result as normal/abnormal . MPV (test code = 11.3 fL 9.8-13 87699-4) NRBC/100 WBC (test See_Comment [Automat ed code = 7775810522) message] The system which generated this result transmitted reference range : 0.0 - 10.0 /100 WBCs. The refer ence range was not u sed to interpret th is result as normal/abnormal . NRBC x10^3 (test code <0.01 See_Comment [Auto mated = 4739827762) message] The s ystem which generated this result transmitted reference range : 10*3/?L. The reference range was not used to interpret this result as normal/abnormal . GRAN MAT (NEUT) % 79.8 % (test code = 770-8) IMM GRAN % (test code 0.50 % = 6678835237) LYMPH % (test code = 13.4 % 736-9) MONO % (test code = 4.2 % 5905-5) EOS % (test code = 1.8 % 713-8) BASO % (test code = 0.3 % 706-2) GRAN MAT x10^3(ANC) 8.49 10*3/uL 1.99-6.95 H (test code = 7155690880) IMM GRAN x10^3 (test 0.05 10*3/uL 0-0.06 code = 9612366470) LYMPH x10^3 (test code 1.42 10*3/uL 1.09-3.23 = 731-0) MONO x10^3 (test code 0.45 10*3/uL 0.36-1.02 = 742-7) EOS x10^3 (test code = 0.19 10*3/uL 0.06-0.53 711-2) BASO x10^3 (test code 0.03 10*3/uL 0.01-0.09 = 704-7) Lab Interpretation Abnormal (test code = 42135-4) [facility] GLUCOSE (AUTOMATED)2019-11-06 13:38:00 Test Item Value Reference Range Interpretation Comments POCT GLU (test code = 2985059675) 116 mg/dL 70-110 H Lab Interpretation (test code = Abnormal 58845-5) [facility] GLUCOSE (AUTOMATED)2019-11-06 12:29:00 Test Item Value Reference Range Interpretation Comments POCT GLU (test code = 9610970685) 322 mg/dL 70-110 H Lab Interpretation (test code = Abnormal 40897-4) [facility] GLUCOSE (AUTOMATED)2019-11-06 12:29:00 Test Item Value Reference Range Interpretation Comments POCT GLU (test code = 4050081433) 230 mg/dL 70-110 H Lab Interpretation (test code = Abnormal 61414-2) [facility] GLUCOSE (AUTOMATED)2019-11-06 02:00:00 Test Item Value Reference Range Interpretation Comments POCT GLU (test code = 155 mg/dL 70-110 H Notifi ed Provider 4996048585) Lab Interpretation (test Abnormal code = 26693-2) [facility] [id number] 00:02:00 Test Item Value Reference Range Interpretation Comments Case Report (test code Surgical Pathology ? ? = 2039705737) ?Case: [id number] ? Authorizing Provider: ?Yonatan Lund MD ? ? ? Collected: ? 11/03/2019 1426 ?Ordering Location: ? ? [facility] ? ? ?Received: ?11/03/2019 1555 ? [facility] ?Pathologist: ? Klaus Tinoco MD ? Specimen: ? ?APPENDIX, appendix ? Final Diagnosis (test y7xrhHVcNUHjx9swVQQoyG code = 5722174695) FuZzEwMzNcZnRuYmpcdWMx BArkjjYsMIyhj9JhJ9QcXl AwMFxhbnNpXGRlZmxhbmcx CULsHCW1gwSpKPSaGVxlRW CbIDipYd9yjTWkoRywNpIt JCDjs3mgwqQCvahzkAb1v5 foLYCcRnP5wKDqKRatE3pz xkRxaOWkGBHhOHj1gV93JK HrbE0svWRxFZpxfqXbKHkx xwCsgzNsUwd7RLUaY9kaVW AcAUCeA6ZpMZ8qCUTkEfs0 UAR5APM4yNltf3M4zZOvrX KouLcbPrTxXfGvCCAAv1Sp FOq4hMkoD1HtOWLzVqX8kR QgUGFyYWdyYXBoIEZvbnQ7 wO44ATcvogP1wUOmi5Ywe3 3gx933wW9ceWUtUAV0HOYw VXCsuNVcVDFqOAN9UCFzmI SyQ2mfWGclRX3dkxusQHU5 MFxtYXJndDcyMFxtYXJnYj XhaILpRDUlpNnfQSohy058 SPB7XrTfWC7bQ3Moe0N5gF 9maXRcZGVmdGFiNzIwXGZv no7fbZOqOQwmk9FzVEB0yr K5vEOyaVPrOBApYF32Vvug x4TiIstfBSF5DBRgiyLtc6 Ucr7jdVfXgvgFdZ5jdK5Ex ZHJoZWFkXHBnYnJkcmZvb3 Ieu5BzmGWafPw2c8clDRCh ZASjxFhyx6etDVH8SNIwW3 W5oTKpz4gzGUmnBJEteNS3 koYuISZgtDBcM0AtcR3sUK fpKA2dgzw2q1hnMyBySD2w ojxii9yrYPunDYKzODE5Wq TiETYph8TonruhBkFea3Bq fSHcIQjgV81tg045HSEptc NiO4bxoJFebldxaZKhcrgl MFxmczIwXHFsXHBsYWluXG RxSJTtWlBapAhwaX2vVyRf ZnMyMFxwYXJccGFyZFxwbG FpblxmMFxmczIwXHBsYWlu DIJfDMXdRiJzJF3qGLVOKE 1YLMobOQLMBBAUYFEUOY4B WTpccGFyXHFsXHBsYWluXG XlVDJiFsWncPcrcO2oDgUn LnDzAVNlMSGbAZ1jLTYUNI QrUOZAVQ8FRIAUTYeXBQeM ZZglFKNYEM1WUUTZJaXLB6 lUSVNccGFyXHBhciBNYXR0 zSB1JEIemSIrKUTZENamOJ OybHpgnH2sIuQyAkJvWpee LH1bEBVvJ9xdqQMfHLTkTE HrS9sdXaGpnT0xxTbpFNir ZjFcZnMyMiBIYXJzaHdhcm NmFI1rGFhsq6AiHMGXPIQn Ui8qZJ9rUYJcHWT8BaMbNO BNXHBsYWluXGYxXGZzMjBc nOGopTjnsvRyQUlap3KdW0 YyMjAwMFxhbnNpXGRlZmxh cdejQMZuXKP0izXkUVFuKA oxBFLpUKfzEw3azYHsaKvk TkNiTPUxk3oqxnDGAJyfMd VcX089KBXdFFqfv7hvj7Vf IWJjzGCog4B5DHYPsrmugZ u5c2tgDtZpNpS2vBTqLTby N6sgkkHxjENmC5LqsRFksV o6nYwvS18gq6W7HrkxE4qy CMZdJQFmS1LxNP4sQDBmOv b6QMK7LBI4QAPgPQAxR2Xr BC5jHKUztDNfLRb7k4lnxM rjIWSmWXT9m6ijUUsdskN0 LR9gft2dgYd7v9ndrxTcYM JjLIUxqBWTBFBwN5UhsHzg Oz2bfFq9uIebIjxiCWY2Gx t5TF7qjr28yah8fUvrUTCz kbqmZfT2JCbfVVSiwhpbPM o6JBmlUDSmjCK5REKowDVv J1PiLIEdOI2lvnd1NRR5GS ovFHPfPaM0LTQzsJRdCJFa ePqpDIprz445EMF2SoZbAL 2gM8Muv6D6tD8vwVDnBGEm zZAzAnThKQRojr8qfDAxZG ess7JtOVT7ssO9bWQrpHSu MOIxRJ96Inqcs9AaBvrsPV U2BIBozkLev9Dkb2obBaBe dqYpC6gcM1RlMLSwCFPyLF AuPqFaolHhh9Sdm5EjsJRn hWi3o7srKIDoDSSjuRuzb1 ihGOL9SBFsS6C9tJZfv7vw EZnmGDHugEL4caB2APEegT VjE4RmnT8cEEDbLZ5zluo5 a9pjLWI7KPeoILGiVnQ9kn D0XCNizRQrBCQvkOmmYBnz e907MCH0HuLkOGOwo7FdX1 GmkXurG95qlBznO76sZYGo dVtjpT8xoGgrjM9zPoQlFn MyNFxxbFxwbGFpblxmMVxm czIwXGxhbmcxMDMzXGhpY2 qsUcLsSEBywYdmCHbhl3Yp XGYxXGNmMlxmczIwXHBhci SQTAvzmbPuuJSzk82nMXva eSByZXZpZXdlZCBhbGwgc3 PaP5fmTQ1vV4VqyBThoyCb gcKtBEklHDUye9c2iZPldP mxb7NagEKzSJ42yjBhDCGe JZI8UWXte4bjHK72lehtOz HkkD41bsUuuuHyUVGfk8bj E6iggBApl7Hgf7DdjcWpSP wsy3GwSQ1klPMdwpgguAS9 PJPdkMNariXbwmR8fMcyDC OnnQ4dpY1wsEexlI0uZeZp QpTaBJcbFT1yPHRkV3gqtZ TdHXBlNSNzP6wpOnCalH4y nSreJdcvvcN2BPBhsa43 Clinical Information Acute abdomen (test code = 6117487042) Gross Description (test f5mdzWZqPYIzgBItUhLcBZ code = 9901171500) GvAJUpr4frVQQptMPtAxDx MzNcZnRuYmpcdWMxXGRlZm Nyo6tgw286nCYms9gcGIWs PlY2zRCzPIRmbGWaX782UK VvTXxuc4qdz2BuTPZegGCh h6M8SUEIwghpqHv2tXmzK0 5jz2R4ImrnF6awBTVqKXib UUBnYJijyITzELW6IAGmWC L0EYqcqhSjgoX8YWyspUGi FgI2KNb4n0swwHndIDDkOI E1m7lnNIzedoQgXG0kao4l uCc1t1tossIsFBCdPEWrdK ZIYMXaC0TqqBjsUf6yiPp6 nWioBfnyNTQ5Sgq4YL0hce 92xko1zDznDNBkbctsYpV2 YEfwTLAbqohwOTj8YVtkVE YgkMYvLMJarXPqB0AvZMyv JD8hzxp2LvXhCW9ehhwlEB qoSMHtDMJ0VfOzZULfs8Uu wmgkZmSgus0trj72MZJ0z5 EwwOlaGNC6TJI0IoRgJl6m qQPdQHApBZ0fNrSqxNHmFT Kawa40cQgyHCpfbdYxcJ3o FwQpOUAqlGRgNHHpCT9cbJ BhSSHvuX1fymwzJPRgAoBk fdulUALpfGrjbuCpQm1wzG lxHDF8UOgxJ6ltjP4rIcD3 KXluI7fkvO1oKYg2VJiqaK E9GSDzeI5rLZ5ztvxmu8xv MNU5YVrtNKYuhmQ9fmRwHU UytYHgN5TccF17OuHldBHk U7XrtQ6qPKowLOOfrup5Pn AhWr4atLYrlDQ9OFwqIgyg YWdlXHBnbmNvbnRccGduZG VjXHBsYWluXHBsYWluXGYw SGJlNhWko0ZfYXKkl7opCf Tuq1ygxZv1OGivcAimjKXj blxmMFxmczIwXHBsYWluXG KeKYOwKbDqZ3EuL3ajYS9e QSBpcyByZWNlaXZlZCBpbi Zrq1OeLJsqymVgRMVyeZmg YMV3oVKpMDEgZJFcXPLaAN 50XHBsYWluXGYxXGZzMjBc fKfxUMzqVPi1TlqppIEita xmMVxmczIwIHMgbmFtZSwg VUggbnVtYmVyICJhcHBlbm RpeFxwbGFpblxmMVxmczIw QFP8OmCmQMbjGQKhrXfncS 9fZfJhUrBpQFXkPF3lZXHa rmVmg2RsDE1vMEKtnTihyw 09RX7uejAwyUehl1CkKIQf tPUkFCd4NCr7OffwS16qnQ 0zuREvB4SrVVrxYH85HZMr OCBjbSBpbiBkaWFtZXRlci tox8o6hKKmjGWpX4srLLQ0 CJjky4bfbP9wlCdxbUKwJD Aeb5Y6vQIwIVDnRPUnJAMy ZL3mrEtaRIJlPKQ5TAGaNL R9XJAgJXMpsEbhUROJpXVz OJXaDD0siQjny7Lub7CvLL oud0QmUCAnuxM5eNCuFSO9 iPEbzBBtNPUuahWnhCS6iR VudCBleHVkYXRlLiBUaGUg CVMbJG1qgEkwqVWyu5StzN ZkcDypb8AfaEljmqVkAVZi IHJldmVhbCBhIHBhdGVudC SlbI5kjfiboqHoO7jmIgQx ms6cEIUwitXdwI81JXLyIP RmVbWlaPhhQ36jzNAvewib GwCuB2OdaRUzHN0kziSlXK dlLiAgVGhlIHdhbGwgdGhp H6tmKEZiTDOqzwsvlpIdsr 6eXAImVS1mQyZuU00uAGYq cnVwdHVyZSBzaXRlIGlzIG jpa1GueEvmdLOstiUgMiuq EIpbUT9wFHEjPWSxv33heA dkRT07K53zRHustwOtIWG6 rT1aUU8fhicajt1tBoSaeb NtDZ82GYJwzsScs1IspQtz ugFev9daO5vgnF5hmDGoXD Iocx5wbsAxKEJ8hW9vybxd uLqjIBRjcQPscF2hXSMvhk DaWDZ7yP8gLX3rzykdlsAe bmQgZGlzdGFsIHRpcCBhcm Jzx9GcmEp8tOEyPZxdDEKg LUEyLlxwYXJccGFyZFxwbG FpblxmMFxmczIwXHBsYWlu XGYxXGZzMjAgSnVsaWUgTW CJkMcojzX9EMTDJYbyTLZ3 Embedded Images (test code = 4819514461) [facility] GLUCOSE (AUTOMATED)2019-11-05 22:19:00 Test Item Value Reference Range Interpretation Comments POCT GLU (test code = 0993444473) 115 mg/dL 70-110 H Lab Interpretation (test code = Abnormal 37196-2) [facility] GLUCOSE (AUTOMATED)2019-11-05 18:23:00 Test Item Value Reference Range Interpretation Comments POCT GLU (test code = 0019570457) 197 mg/dL 70-110 H Lab Interpretation (test code = Abnormal 09020-3) [facility] GLUCOSE (AUTOMATED)2019-11-05 17:33:00 Test Item Value Reference Range Interpretation Comments POCT GLU (test code = 4996006169) 125 mg/dL 70-110 H Lab Interpretation (test code = Abnormal 66347-3) [facility] GLUCOSE (AUTOMATED)2019-11-05 13:28:00 Test Item Value Reference Range Interpretation Comments POCT GLU (test code = 9134198180) 130 mg/dL 70-110 H Lab Interpretation (test code = Abnormal 18456-2) [facility] METABOLIC PANEL (NA, K, CL, CO2, GLUCOSE, BUN, CREATININE, CA)2019-11-05 12:11:00 Test Item Value Reference Range Interpretation Comments NA (test code = 137 mmol/L 135-145 3048031642) K (test code = 3.6 mmol/L 3.5-5 1157825834) CL (test code = 100 mmol/L 98-108 0339040558) CO2 TOTAL (test code = 30 mmol/L 23-31 8624615210) AGAP (test code = 2-16 8768456857) BUN (test code = 14 mg/dL 7-23 3859450231) GLUCOSE (test code = 164 mg/dL 70-110 H 2228456821) CREATININE (test code = 0.81 mg/dL 0.6-1.25 3011669371) CALCIUM (test code = 8.6 mg/dL 8.6-10.6 8406098977) eGFR Calculation mL/min/1.73m2 (Non-) (test code = 7604594899) eGFR Calculation mL/min/1.73m2 () (test code = 5982531782) KATE (test code = KATE) Association of [...] tests). Lab Interpretation Abnormal (test code = 07663-0) [facility] WITH [id number] 11:39:00 Test Item Value Reference Range Interpretation [...] RDW-SD (test code = 38.7 fL 38.5-51.6 80240-7) RDW-CV (test code = 13.0 % 12.1-15.4 788-0) PLT (test code = See_Comment [Automated 777-3) message] The sy stem which generated this result transmitted reference range : 150 - 328 10*3/ ?L. The reference r jevon was not used to interpret this result as normal/abnormal . MPV (test code = 11.5 fL 9.8-13 86743-6) NRBC/100 WBC (test See_Comment [Automat ed code = 4422332568) message] The system which generated this result transmitted reference range : 0.0 - 10.0 /100 WBCs. The refer ence range was not u sed to interpret th is result as normal/abnormal . NRBC x10^3 (test code <0.01 See_Comment [Auto mated = 0748235949) message] The s ystem which generated this result transmitted reference range : 10*3/?L. The reference range was not used to interpret this result as normal/abnormal . GRAN MAT (NEUT) % 83.5 % (test code = 770-8) IMM GRAN % (test code 0.30 % = 5679635320) LYMPH % (test code = 9.3 % 736-9) MONO % (test code = 5.7 % 5905-5) EOS % (test code = 1.1 % 713-8) BASO % (test code = 0.1 % 706-2) GRAN MAT x10^3(ANC) 7.74 10*3/uL 1.99-6.95 H (test code = 6961524218) IMM GRAN x10^3 (test 0.03 10*3/uL 0-0.06 code = 2200567495) LYMPH x10^3 (test code 0.86 10*3/uL 1.09-3.23 L = 731-0) MONO x10^3 (test code 0.53 10*3/uL 0.36-1.02 = 742-7) EOS x10^3 (test code = 0.10 10*3/uL 0.06-0.53 711-2) BASO x10^3 (test code <0.03 0.01-0.09 = 704-7) Lab Interpretation Abnormal (test code = 10859-0) [facility] GLUCOSE (AUTOMATED)2019-11-05 10:22:00 Test Item Value Reference Range Interpretation Comments POCT GLU (test code = 0441015909) 149 mg/dL 70-110 H Lab Interpretation (test code = Abnormal 11482-5) [facility] GLUCOSE (AUTOMATED)2019-11-05 06:15:00 Test Item Value Reference Range Interpretation Comments POCT GLU (test code = 4672013592) 204 mg/dL 70-110 H Lab Interpretation (test code = Abnormal 92777-6) [facility] GLUCOSE (AUTOMATED)2019-11-05 01:48:00 Test Item Value Reference Range Interpretation Comments POCT GLU (test code = 2743013990) 227 mg/dL 70-110 H Lab Interpretation (test code = Abnormal 60024-9) [facility] GLUCOSE (AUTOMATED)2019-11-04 22:30:00 Test Item Value Reference Range Interpretation Comments POCT GLU (test code = 8544080000) 132 mg/dL 70-110 H Lab Interpretation (test code = Abnormal 75898-9) [facility] GLUCOSE (AUTOMATED)2019-11-04 17:24:00 Test Item Value Reference Range Interpretation Comments POCT GLU (test code = 7722736650) 213 mg/dL 70-110 H Lab Interpretation (test code = Abnormal 54345-2) [facility] GLUCOSE (AUTOMATED)2019-11-04 13:31:00 Test Item Value Reference Range Interpretation Comments POCT GLU (test code = 8781979947) 203 mg/dL 70-110 H Lab Interpretation (test code = Abnormal 87053-1) [facility] GLUCOSE (AUTOMATED)2019-11-04 12:03:00 Test Item Value Reference Range Interpretation Comments POCT GLU (test code = 9859248536) 213 mg/dL 70-110 H Lab Interpretation (test code = Abnormal 56384-4) [facility]IN (A1C)2019-11-03 23:50:00 Test Item Value Reference [...] Indicated Lab Interpretation Abnormal (test code = 75474-1) [facility] GLUCOSE (AUTOMATED)2019-11-03 23:28:00 Test Item Value Reference Range Interpretation Comments POCT GLU (test code = 6827758573) 273 mg/dL 70-110 H Lab Interpretation (test code = Abnormal 04318-9) [facility] ABDOMEN PELVIS W [id number] 18:01:52CT Abdomen and Pelvis with intravenous contrast. [...] Rhoades in the emergency room at 12:00. [facility], Radiant Results Inft User [...] Dr. Rhoades in the emergency room at 12:00.[facility] [id number] 16:23:00 Test Item Value Reference Range Interpretation Comments APPEARANCE (test code = Clear Clear 9864462264) COLOR (test code = Yellow Yellow 3272658979) PH (test code = 4.8-8.0 7216528172) SP GRAVITY (test code = 1.003-1.030 8755936065) GLU U QUAL (test code = 500 mg/dL Normal A 6637956570) BLOOD (test code = Negative Negative 9800500743) KETONES (test code = Negative Negative 1012042156) PROTEIN (test code = Negative Negative 2887-8) UROBILIN (test code = Normal Normal 2168418221) BILIRUBIN (test code = Negative Negative 9921717962) NITRITE (test code = Negative Negative 6345911563) LEUK BIANCA (test code = Negative Negative 9346428398) RBC/HPF (test code = See_Comment [Autom ated message] 9480682489) The system QR[employer] generated this result transmit yelena reference range : 0 - 3 HPF. The refe rence range was not u sed to interpret th is result as normal/abnormal . WBC/HPF (test code = See_Comment [Autom ated message] 8346543189) The system [employer] generated this result transmit yelena reference range : 0 - 5 HPF. The refe rence range was not u sed to interpret th is result as normal/abnormal . BACTERIA (test code = Negative Negative 9043662109) MUCOUS (test code = Slight Negative LPF A 1791938510) SQ EPITH (test code = <1 HPF 3324863473) Lab Interpretation (test Abnormal code = 24909-3) [facility] METABOLIC PANEL (68538)2019-11-03 16:04:00 Test Item Value Reference Range Interpretation Comments NA (test code = 137 mmol/L 135-145 3702504140) K (test code = 4.3 mmol/L 3.5-5 5165356748) CL (test code = 98 mmol/L 98-108 3236686728) CO2 TOTAL (test code = 28 mmol/L 23-31 3255529194) AGAP (test code = 2-16 2013685244) BUN (test code = 11 mg/dL 7-23 4844394017) GLUCOSE (test code = 356 mg/dL 70-110 H 2378732623) CREATININE (test code = 1.01 mg/dL 0.6-1.25 1941715056) TOTAL BILI (test code = 0.9 mg/dL 0.1-1.6 0423733206) CALCIUM (test code = 9.1 mg/dL 8.6-10.6 1982348061) T PROTEIN (test code = 7.5 g/dL 6.3-8.2 9161376751) ALBUMIN (test code = 4.7 g/dL 3.5-5 1380834986) ALK PHOS (test code = 73 U/L 34-122 6207468366) ALTv (test code = 38 U/L 5-50 1742-6) AST(SGOT) (test code = 25 U/L 13-40 9164014215) eGFR Calculation mL/min/1.73m2 (Non-) (test code = 0746707969) eGFR Calculation mL/min/1.73m2 () (test code = 4219142064) KATE (test code = KATE) Association of [...] tests). Lab Interpretation Abnormal (test code = 38450-1) [facility]2020-02-[facility] 16:03:00 Test Item Value Reference Range Interpretation Comments LIPASE (test code = 5673708011) 48 U/L 0-220 Lab Interpretation (test code = Normal 17944-8) [facility] WITH [id number] 15:51:00 Test Item Value Reference Range Interpretation Comments WBC (test code = See_Comment H [Automated 8290-2) message] The system which generated this result transmit yelena reference range : 4.20 - 10.70 10*3/?L. The reference range was not used to interpret this result as normal/abnormal . RBC (test code = See_Comment H [Automated 289-8) message] The system which generated this result [...] (test code = 37.8 fL 38.5-51.6 L 46183-1) RDW-CV (test code = 12.7 % 12.1-15.4 788-0) PLT (test code = See_Comment [Automated 777-3) message] The system which generated this result transmit yelena reference range : 150 - 328 10*3/ ?L. The reference range was not u sed to interpret th is result as normal/abnormal . MPV (test code = 10.9 fL 9.8-13 06133-2) NRBC/100 WBC (test See_Comment [Automat ed code = 7436062517) message] The system which generated this result transmit yelena reference range : 0.0 - 10.0 /100 WBCs. The reference range was not used to interpret this result as normal/abnormal . NRBC x10^3 (test code <0.01 See_Comment [Auto mated = 2577707628) message] The system which generated this result transmit yelena reference range : 10*3/?L. The reference range was not used to interpret this result as normal/abnormal . GRAN MAT (NEUT) % 91.5 % (test code = 770-8) IMM GRAN % (test code 0.50 % = 5175744822) LYMPH % (test code = 3.9 % 736-9) MONO % (test code = 3.8 % 5905-5) EOS % (test code = 0.1 % 713-8) BASO % (test code = 0.2 % 706-2) GRAN MAT x10^3(ANC) 12.89 10*3/uL 1.99-6.95 H (test code = 1911306785) IMM GRAN x10^3 (test 0.07 10*3/uL 0-0.06 H code = 5943451281) LYMPH x10^3 (test code 0.55 10*3/uL 1.09-3.23 L = 731-0) MONO x10^3 (test code 0.54 10*3/uL 0.36-1.02 = 742-7) EOS x10^3 (test code = <0.03 0.06-0.53 L 711-2) BASO x10^3 (test code 0.03 10*3/uL 0.01-0.09 = 704-7) Lab Interpretation Abnormal (test code = 32373-2) [facility]"
[2022-10-26] MEDS ORDERED: DIPHENHYDRAMINE 50 MG/ML VIAL ONE (17:14)
[2022-10-26] MEDS ORDERED: HYDROMORPHONE HCL 1 MG/ML INJ ONE ×2 (17:14→18:01)
[2022-10-26] MEDS ORDERED: NA CHLORIDE 0.9% 1,000 ML ONE (17:14)
[2022-10-26] MEDS ORDERED: KETOROLAC 30 MG/ML INJ ONE (17:14)
[2022-10-26] MEDS ORDERED: ONDANSETRON 4 MG/2 ML VIAL ONE (17:14)
[2022-10-26 17:24] LABS: Hematocrit 49.3 % (39.6-49.0); Lymphocytes % 12.3 % (15.3-44.8); MCV 77.5 fL (80-100); MPV 9.3 fL (7.6-11.3); RBC Red Blood Cell Count 6.37 M/uL (4.33-5.43)
[2022-10-26 17:42] LABS: Albumin 3.6 g/dL (3.4-5.0); Bilirubin Total 0.7 mg/dL (0.2-1.0); Potassium 3.8 mmol/L (3.5-5.1); Protein, Total 7.1 g/dL (6.4-8.2)
--- NOTE | 2022-10-26 18:03 | ER ---
Nurse's Notes [facility] Name: Chente Minaya Age: 52 yrs Sex: Male : 1970 Arrival Date: 10/26/2022 Time: 16:49 Bed 5 Private MD: Diagnosis: Migraine with aura, not intractable, without status migrainosus;Nausea;Type 2 diabetes mellitus with hyperglycemia Presentation: 10/26 16:51 Chief complaint: Patient states: migraine that began evening. Pt has a hx of ss migraines and states that this is similar to previous ones in the past. Coronavirus screen: Client denies travel out of the [place] in the last 14 days. Ebola Screen: Patient denies exposure to infectious person. Patient denies travel to an Ebola-affected area in the 21 days before illness onset. Initial Sepsis Screen: Does the patient meet any 2 criteria? No. Patient's initial sepsis screen is negative. Does the patient have a suspected source of infection? No. Patient's initial sepsis screen is negative. Risk Assessment: Do you want to hurt yourself or someone else? Patient reports no desire to harm self or others. Onset of symptoms was October 24, 2022. 16:51 Method Of Arrival: Ambulatory ss 16:51 Acuity: GILDARDO 3 ss Historical: - Allergies: 16:52 Bactrim; ss 16:52 mushroom; ss 16:52 Mustard; ss 16:52 PENICILLINS; ss 16:52 Reglan; ss 16:52 Sulfa (Sulfonamide Antibiotics); ss 16:52 surgical steel; ss 16:52 tramadol; ss 16:52 Tylenol-Codeine #3; ss 16:52 Tylenol-Codeine #4; ss - PMHx: 16:52 diabetes mellitus; GERD; Migraine; ss - PSHx: 16:52 Appendectomy; ss - Immunization history:: Adult Immunizations up to date. - Social history:: Smoking status: Patient denies any tobacco usage or history of. Screenin:55 [facility] ED Fall Risk Assessment (Adult) History of falling in the last 3 months, ko1 including since admission No falls in past 3 months (0 pts) Confusion or Disorientation No (0 pts) Intoxicated or Sedated No (0 pts) Impaired Gait No (0 pts) Mobility Assist Device Used No (0 pt) Altered Elimination No (0 pt) Score/Fall Risk Level 0 - 2 = Low Risk Oriented to surroundings, Maintained a safe environment, Educated pt \T\ family on fall prevention, incl call for assistance when getting out of bed, Assessed \T\ reinforced patient's understanding of fall precautions, Provided non-skid footwear, Hourly rounding (assess needs \T\ fall precautionary measures) done, Used ambulatory aids as needed (educated on \T\ assisted with), Used gait belt as appropriate. Abuse screen: Denies threats or abuse. Denies injuries from another. Nutritional screening: No deficits noted. Tuberculosis screening: No symptoms or risk factors identified. Assessment: 16:55 General: Appears in no apparent distress. uncomfortable, Behavior is calm, cooperative, ko1 appropriate for age. Pain: Complains of pain in top of head, forehead, right rastafarian and left rastafarian. Neuro: No deficits noted. Cardiovascular: Reports. Respiratory: No deficits noted. GI: Abdomen is round non-distended. : No deficits noted. EENT: No deficits noted. Derm: No deficits noted. Musculoskeletal: No deficits noted. Vital Signs: 16:51 Pulse 105; Resp 16; Temp 98.2(TE); Pulse Ox 100% on R/A; Weight 127.01 kg (M); Height 6 ss ft. 2 in. (187.96 cm); Pain 9/10; 16:53 BP 133 / 84; ss 16:55 BP 118 / 75; Pulse 96; Resp 16; Pulse Ox 99% ; ko1 18:39 BP 124 / 68; Pulse 88; Resp 16; Pulse Ox 99% on R/A; ko1 16:51 Body Mass Index 35.95 (127.01 kg, 187.96 cm) [place] Coma Score: 17:39 Eye Response: spontaneous(4). Verbal Response: oriented(5). Motor Response: obeys jermaine commands(6). Total: 15. ED Course: 16:49 Patient arrived in ED. rg4 16:52 Triage completed. ss 16:52 Arm band placed on right wrist. ss 16:55 Sylvie Love RN is Primary Nurse. ko1 16:55 Saurav Blount MD is Attending Physician. jermaine 16:55 Patient has correct armband on for positive identification. Bed in low position. Call ko1 light in reach. Side rails up X 1. Pulse ox on. NIBP on. 16:55 No provider procedures requiring assistance completed. ko1 17:00 Inserted saline lock: 20 gauge in left antecubital area, using aseptic technique. Blood ko1 collected. 17:08 CBC with Diff Sent. ko1 17:08 Comprehensive Metabolic Panel Sent. ko1 18:02 Travis Figueroa MD is Referral Physician. jermaine 18:39 IV discontinued, intact, bleeding controlled, No redness/swelling at site. Pressure ko1 dressing applied. Administered Medications: 17:23 Drug: NS 0.9% 1000 ml Route: IV; Rate: 1 bolus; Site: left antecubital; ko1 18:01 Follow up: Response: No adverse reaction; IV Status: Completed infusion; IV Intake: ko1 1000ml 17:23 Drug: Zofran (Ondansetron) 8 mg Route: IVP; Site: left antecubital; ko1 18:02 Follow up: Response: No adverse reaction; Nausea is decreased ko1 17:25 Drug: Ketorolac 30 mg Route: IVP; Site: left antecubital; ko1 18:02 Follow up: Response: No adverse reaction; No change in condition ko1 17:27 Drug: Benadryl (diphenhydrAMINE) 50 mg Route: IVP; Site: left antecubital; ko1 18:02 Follow up: Response: No adverse reaction ko1 17:29 Drug: Dilaudid (HYDROmorphone) 1 mg Route: IVP; Site: left antecubital; ko1 18:02 Follow up: Response: No adverse reaction; No change in condition ko1 17:59 Drug: Dilaudid (HYDROmorphone) 1 mg Route: IVP; Site: left antecubital; ko1 18:03 Follow up: Response: No adverse reaction; Pain is decreased ko1 18:07 Drug: Insulin Regular Human 6 units {Co-Signature: hb (Kalee Hudson RN).} Route: ko1 Sub-Q; Site: left upper arm; Medication: 16:55 VIS not applicable for this client. ko1 Intake: 18:01 IV: 1000ml; Total: 1000ml. ko1 Outcome: 18:02 Discharge ordered by . jermaine 18:39 Discharged to home ambulatory, with family. ko1 18:39 Condition: improved 18:39 Discharge instructions given to patient, Instructed on discharge instructions, follow up and referral plans. medication usage, Demonstrated understanding of instructions, follow-up care, medications, Prescriptions given X 2. 18:40 Patient left the ED. ko1 Signatures: Saurav Blount MD MD cha Smirch, Shelby, RN RN Caitlin Velasco rg4 Sylvie Love RN RN ko1 Kalee Hudson RN hb
--- NOTE | 2022-10-26 18:03 | EDPHYS ---
Physician Documentation [facility] Name: Chente Minaya Age: 52 yrs Sex: Male : 1970 Arrival Date: 10/26/2022 Time: 16:49 Bed 5 Private MD: BRYAN Physician Saurav Blount HPI: 10/26 17:36 This 52 yrs old Male presents to ER via Ambulatory with complaints of jermaine Migraine, Nausea. 17:36 The patient presents to the emergency department with nausea, vomiting, that is jermaine intermittent. Onset: The symptoms/episode began/occurred 2 day(s) ago. 17:37 Possible causes: unknown. The symptoms are aggravated by movement, pressure, The jermaine symptoms are alleviated by remaining still. Associated signs and symptoms: Pertinent positives: abdominal pain, nausea, vomiting. Severity of symptoms: At their worst the symptoms were mild in the emergency department the symptoms are unchanged. The patient has experienced similar episodes in the past, multiple times, chronically. Historical: - Allergies: 16:52 Bactrim; ss 16:52 mushroom; ss 16:52 Mustard; ss 16:52 PENICILLINS; ss 16:52 Reglan; ss 16:52 Sulfa (Sulfonamide Antibiotics); ss 16:52 surgical steel; ss 16:52 tramadol; ss 16:52 Tylenol-Codeine #3; ss 16:52 Tylenol-Codeine #4; ss - PMHx: 16:52 diabetes mellitus; GERD; Migraine; ss - PSHx: 16:52 Appendectomy; ss - Immunization history:: Adult Immunizations up to date. - Social history:: Smoking status: Patient denies any tobacco usage or history of. ROS: 17:37 Constitutional: Negative for fever, chills, and weight loss, Eyes: Negative for injury, jermaine pain, redness, and discharge, ENT: Negative for injury, pain, and discharge, Neck: Negative for injury, pain, and swelling, Cardiovascular: Negative for chest pain, palpitations, and edema, Respiratory: Negative for shortness of breath, cough, wheezing, and pleuritic chest pain, Back: Negative for injury and pain, : Negative for injury, bleeding, discharge, and swelling, MS/Extremity: Negative for injury and deformity, Skin: Negative for injury, rash, and discoloration, Psych: Negative for depression, anxiety, suicide ideation, homicidal ideation, and hallucinations, Allergy/Immunology: Negative for hives, rash, and allergies, Endocrine: Negative for neck swelling, polydipsia, polyuria, polyphagia, and marked weight changes, Hematologic/Lymphatic: Negative for swollen nodes, abnormal bleeding, and unusual bruising. 17:37 Abdomen/GI: Positive for nausea and vomiting. 17:37 Neuro: Positive for dizziness, headache. Exam: 17:37 Constitutional: This is a well developed, well nourished patient who is awake, alert, jermaine and in no acute distress. Head/Face: Normocephalic, atraumatic. Eyes: Pupils equal round and reactive to light, extra-ocular motions intact. Lids and lashes normal. Conjunctiva and sclera are non-icteric and not injected. Cornea within normal limits. Periorbital areas with no swelling, redness, or edema. ENT: Nares patent. No nasal discharge, no septal abnormalities noted. Tympanic membranes are normal and external auditory canals are clear. Oropharynx with no redness, swelling, or masses, exudates, or evidence of obstruction, uvula midline. Mucous membranes moist. Neck: Trachea midline, no thyromegaly or masses palpated, and no cervical lymphadenopathy. Supple, full range of motion without nuchal rigidity, or vertebral point tenderness. No Meningismus. Chest/axilla: Normal chest wall appearance and motion. Nontender with no deformity. No lesions are appreciated. Cardiovascular: Regular rate and rhythm with a normal S1 and S2. No gallops, murmurs, or rubs. Normal PMI, no JVD. No pulse deficits. Respiratory: Lungs have equal breath sounds bilaterally, clear to auscultation and percussion. No rales, rhonchi or wheezes noted. No increased work of breathing, no retractions or nasal flaring. Abdomen/GI: Soft, non-tender, with normal bowel sounds. No distension or tympany. No guarding or rebound. No evidence of tenderness throughout. Back: No spinal tenderness. No costovertebral tenderness. Full range of motion. Skin: Warm, dry with normal turgor. Normal color with no rashes, no lesions, and no evidence of cellulitis. MS/ Extremity: Pulses equal, no cyanosis. Neurovascular intact. Full, normal range of motion. Neuro: Awake and alert, GCS 15, oriented to person, place, time, and situation. Cranial nerves II-XII grossly intact. Motor strength 5/5 in all extremities. Sensory grossly intact. Cerebellar exam normal. Normal gait. Psych: Awake, alert, with orientation to person, place and time. Behavior, mood, and affect are within normal limits. 17:37 Neck: ROM/movement: is normal, no acute changes, limited range of motion, is not appreciated, Meningeal signs: are not present, Kernig's sign is negative, Brudzinski's sign is negative, nuchal rigidity, is not appreciated, Lymph nodes: no appreciated lymphadenopathy. Vital Signs: 16:51 Pulse 105; Resp 16; Temp 98.2(TE); Pulse Ox 100% on R/A; Weight 127.01 kg (M); Height 6 ss ft. 2 in. (187.96 cm); Pain 9/10; 16:53 BP 133 / 84; ss 16:55 BP 118 / 75; Pulse 96; Resp 16; Pulse Ox 99% ; ko1 18:39 BP 124 / 68; Pulse 88; Resp 16; Pulse Ox 99% on R/A; ko1 16:51 Body Mass Index 35.95 (127.01 kg, 187.96 cm) ss Carol Coma Score: 17:39 Eye Response: spontaneous(4). Verbal Response: oriented(5). Motor Response: obeys [facility] commands(6). Total: 15. MDM: 16:55 Patient medically screened. jermaine 17:39 Differential diagnosis: cluster headache, Nonspecific abd pain, gastritis, viral jermaine gastroenteritis, gastroenteritis, hypoglycemia, hyponatremia, migraine. Data reviewed: vital signs, nurses notes, lab test result(s). Consideration of Admission/Observation Patient was admitted/placed on observation. Escalation of care including admission/observation considered. I considered the following discharge prescriptions or medication management in the emergency department Medications were administered in the Emergency Department. See MAR. Care significantly affected by the following chronic conditions: Diabetes, migraine, gerd. 10/26 16:58 Order name: CBC with Diff; Complete Time: 18:01 [facility] 10/26 16:58 Order name: Comprehensive Metabolic Panel; Complete Time: 18:01 [facility] 10/26 16:58 Order name: Oxygen: 2 liters; Complete Time: 17:08 [facility] Administered Medications: 17:23 Drug: NS 0.9% 1000 ml Route: IV; Rate: 1 bolus; Site: left antecubital; ko1 18:01 Follow up: Response: No adverse reaction; IV Status: Completed infusion; IV Intake: ko1 1000ml 17:23 Drug: Zofran (Ondansetron) 8 mg Route: IVP; Site: left antecubital; ko1 18:02 Follow up: Response: No adverse reaction; Nausea is decreased ko1 17:25 Drug: Ketorolac 30 mg Route: IVP; Site: left antecubital; ko1 18:02 Follow up: Response: No adverse reaction; No change in condition ko1 17:27 Drug: Benadryl (diphenhydrAMINE) 50 mg Route: IVP; Site: left antecubital; ko1 18:02 Follow up: Response: No adverse reaction ko1 17:29 Drug: Dilaudid (HYDROmorphone) 1 mg Route: IVP; Site: left antecubital; ko1 18:02 Follow up: Response: No adverse reaction; No change in condition ko1 17:59 Drug: Dilaudid (HYDROmorphone) 1 mg Route: IVP; Site: left antecubital; ko1 18:03 Follow up: Response: No adverse reaction; Pain is decreased ko1 18:07 Drug: Insulin Regular Human 6 units {Co-Signature: hb (Kalee Hudson RN).} Route: ko1 Sub-Q; Site: left upper arm; Disposition Summary: 10/26/22 18:02 Discharge Ordered Location: Home jermaine Problem: new jermaine Symptoms: have improved jermaine Condition: Stable jermaine Diagnosis - Migraine with aura, not intractable, without status migrainosus jermaine - Nausea jermaine - Type 2 diabetes mellitus with hyperglycemia jermaine Followup: jermaine - With: Private Physician - When: 2 - 3 days - Reason: Recheck today's complaints, Continuance of care, Re-evaluation by your physician Followup: jermaine - With: - When: 2 - 3 days - Reason: Recheck today's complaints, Continuance of care, Re-evaluation by your physician Discharge Instructions: - Discharge Summary Sheet jermaine - Migraine Headache jermaine - Nausea and Vomiting, Adult jermaine - Nausea, Adult jermaine - Nausea and Vomiting, Adult, [id number] jermaine - Blood Glucose Monitoring, Adult jermaine - Migraine Headache, [id number] jermaine - Recurrent Migraine Headache, [id number] jermaine - Nausea, Adult, [id number] [facility] - Diabetes Mellitus and Nutrition, Adult [facility] Forms: - Medication Reconciliation Form [facility] - Thank You Letter [facility] - Antibiotic Education [facility] - Prescription Opioid Use [facility] Prescriptions: - Zofran 4 mg Oral Tablet - take 1 tablet by ORAL route every 12 hours As needed; 20 tablet; Refills: 0, [facility] Product Selection Permitted - promethazine 25 mg Oral Tablet - take 1 tablet by ORAL route every 6 hours As needed; 20 tablet; Refills: 0, [facility] Product Selection Permitted Signatures: Dispatcher [employer] EDSaurav Morocho MD MD cha Smirch, Shelby, RN RN ss Sylvie Love RN RN ko1 Kalee Hudson RN hb
[2022-10-26] MEDS ORDERED: INSULIN -REGULAR HUMAN 50 UNIT/0.5 ML ML ONE (18:10)
[2022-10-26 19:29] VITALS: O2SAT 99
[2022-10-26 19:30] VITALS: TEMP 98.2
[2022-10-26 19:32] VITALS: BP 124/68
== END 2022-10-26 18:40 | disposition home or self-care (01) ==
LOC: ER 16:48
DX: G43.109 Migraine with aura, not intractable, without status migrainosus (principal); E11.65 Type 2 diabetes mellitus with hyperglycemia; R11.2 Nausea with vomiting, unspecified; Z88.0 Allergy status to penicillin; Z88.1 Allergy status to other antibiotic agents; Z88.2 Allergy status to sulfonamides; Z88.5 Allergy status to narcotic agent; Z88.8 Allergy status to other drugs, medicaments and biological substances; Z91.018 Allergy to other foods; Z91.048 Other nonmedicinal substance allergy status
CPT/HCPCS: 96361; 85025; 36415; 80053; 96375; 96372; 96374; 99284; J1200; J1815; J1170 ×2; J7030; J2405

== ENCOUNTER 2022-11-24 16:51 | Emergency (ER) | payer OTHER ==
--- OUTSIDE RECORDS SUMMARY | 2022-11-24 16:57 | XMS REPORT | Continuity of Care Document ---
:1970 Author Organization [facility] t Address [address] [place] [address] Care Team Providers Name Role Phone Pcp, Patient Does Not Have A Primary Care Physician [id number] YADIEL HAQ Attending Clinician Unavailable Yadiel Haq MD Attending Clinician DAVID NOVOA Attending Clinician Unavailable ALEXIS DAWN Attending Clinician Unavailable Alexis Dawn MD Attending Clinician STEPHANIE ONEAL Attending Clinician Unavailable Stephanie Adamson Attending Clinician Doctor Unassigned, [place] Attending Clinician Unavailable SILVINA SUN Attending Clinician Unavailable Norberto Bernal MD Attending Clinician NORBERTO BERNAL Attending Clinician Unavailable NORBERTO BERNAL Attending Clinician Unavailable Yazmin Ashby Attending Clinician Yazmin APPLE Attending Clinician Unavailable Hortensia Nicolas Attending Clinician Ervin Rhoaeds MD Attending Clinician Luis Arshad MD Attending Clinician LUIS ASRHAD Attending Clinician Unavailable STEPHANIE ONEAL Admitting Clinician Unavailable Luis Arshad MD Admitting Clinician LUIS ARSHAD Admitting Clinician Unavailable Payers Payer Name Policy Type Policy Number Effective Date Expiration Date [employer] [id number] 2021 EMPLOYEE[employer] 00:00:00 Problems Condition Condition Condition [...] of Current smoker University of tobacco use [facility] Exposure to 2022-07-02 2022-07-12 Not sure University SARS-CoV-2 00:00:00 20:23:00 [facility] (event) Branch Alcohol intake 2022-07-12 2022-07-12 Current drinker Unive rsity of 00:00:00 00:00:00 of alcohol [place] [facility] (finding) Branch History SDOH 2019-11-04 2019-11-04 5 University o f Financial 00:00:00 00:00:[address] [facility] Tobacco use and 2019-11-03 2019-11-03 Smokeless tobacco Un iversity of exposure 00:00:00 00:00:00 non-user [facility] Sex Ass[birth year] At [birth year] Universit y of 00:00:00 00:00:[address] [facility] Smoking Status Start Date Stop Date Source Ex-smoker 2019-11-03 00:00:00 2019-11-03 00:00:00 [facility] Branch Medications Ordered Filled Start [...] 06/21/22 at 1215, MANDEEP divalproex 2020-0 Yes [id number] 250mg Take 1 Univers ER 250 mg 8-10 tablet by ity o f 24 hr 00:00: mouth 2 [place] tablet 00 (two) Medical times Branch daily. divalproex 2020-0 Yes [id number] 250mg Take 1 Univers ER 250 mg 8-10 tablet by ity o f 24 hr 00:00: mouth 2 [place] tablet 00 (two) Medical times Branch daily. divalproex 2020-0 Yes [id number] 250mg Take 1 Univers ER 250 mg 8-10 tablet by ity o f 24 hr 00:00: mouth 2 [place] tablet 00 (two) Medical times Branch daily. divalproex 2020-0 Yes [id number] 250mg Take 1 Univers ER 250 mg 8-10 tablet by ity o f 24 hr 00:00: mouth 2 [place] tablet 00 (two) Medical times Branch daily. divalproex 2020-0 Yes [id number] 250mg Take 1 Univers ER 250 mg 8-10 tablet by ity o f 24 hr 00:00: mouth 2 [place] tablet 00 (two) Medical times Branch daily. divalproex 2020-0 Yes [id number] 250mg Take 1 Univers ER 250 mg [...] 1,000 mL 00 :00 IV [facility] [place] ONCE, 1 dose, 02/19/20 at 1800, STAT [...] 1,000 mL 00 :00 IV [facility] ONCE, 1 dose, 02/19/20 at 1645, STAT [...] Sat Medic al 900 mg/50 02/19/20 at [facility] h mL IV 1645, 50 piggyback mL
[...] Branch 1630, MANDEEP traMADol 50 2019-0 Yes [id number] 50mg Take 1 Univers mg tablet 6-06 tablet by ity o f 00:00: mouth [place] 00 every 6 Medical (six) Branch hours as needed for Pain (scale 4-6). traMADol 50 2019-0 Yes [id number] 50mg Take 1 Univers mg tablet 6-06 tablet by ity o f 00:00: mouth [place] 00 every 6 Medical (six) Branch hours as needed for Pain (scale 4-6). traMADol 50 2019-0 Yes [id number] 50mg Take 1 Univers mg tablet 6-06 tablet by ity o f 00:00: mouth [place] 00 every 6 Medical (six) Branch hours as needed for Pain (scale 4-6). traMADol 50 2019-0 Yes [id number] 50mg Take 1 Univers mg tablet 6-06 tablet by ity o f 00:00: mouth [place] 00 every 6 Medical (six) Branch hours as needed for Pain (scale 4-6). traMADol 50 2020-0 Yes [id number] 50mg Take 1 Univers mg tablet 6-06 tablet by ity o f 00:00: mouth [place] 00 every 6 Medical (six) Branch hours as needed for Pain (scale 4-6). traMADol 50 2020-0 Yes [id number] 50mg Take 1 Univers mg tablet 6-06 tablet by ity o f 00:00: mouth [place] 00 every 6 Medical (six) Branch hours as needed for Pain (scale 4-6). traMADol 50 2020-0 Yes [id number] 50mg Take 1 Univers mg tablet 6-06 tablet by ity o f 00:00: mouth [place] 00 every 6 Medical (six) Branch hours as needed for Pain (scale 4-6). traMADol 50 2020-0 Yes [id number] 50mg Take 1 Univers mg tablet 6-06 tablet by ity o f 00:00: mouth [place] 00 every 6 Medical (six) Branch hours as needed for Pain (scale 4-6). traMADol 50 2020-0 Yes [id number] 50mg Take 1 Univers mg tablet 6-06 tablet by ity o f 00:00: mouth [place] 00 every 6 Medical (six) Branch hours as needed for Pain (scale 4-6). traMADol 50 2020-0 Yes [id number] 50mg Take 1 Univers mg tablet 6-06 tablet by ity o f 00:00: mouth [place] 00 every 6 Medical (six) Branch hours as needed for Pain (scale 4-6). clindamycin 2019-0 2020- No [id number] 450mg Take 3 Univers 150 mg 6- 06-17 capsules ity of capsule 00:00: 04:59 by mouth 3 [place] as 00 :00 (three) Medical times Branch daily for 10 days. glipiZIDE 2020-0 Yes [id number] 10mg Take 1 Un grabiel 10 mg 2-22 tablet by ity of tablet 00:00: mouth 2 [place] 00 (two) Medical times Branch daily before breakfast and dinner. HYDROcodone 2020-0 Yes [id number] 1{tbl} Take 1 Univers -acetaminop 2-22 tablet by ity of hen 5-325 00:00: mouth [place] mg tablet 00 every 6 Medical (six) Branch hours as needed for Pain (scale 7-10). glipiZIDE 2020-0 Yes [id number] 10mg Take 1 Un grabiel 10 mg 2-22 tablet by ity of tablet 00:00: mouth 2 [place] 00 (two) Medical times Branch daily before breakfast and dinner. HYDROcodone 2020-0 Yes [id number] 1{tbl} Take 1 Univers -acetaminop 2-22 tablet by ity of hen 5-325 00:00: mouth [place] mg tablet 00 every 6 Medical (six) Branch hours as needed for Pain (scale 7-10). glipiZIDE 2020-0 Yes [id number] 10mg Take 1 Un grabiel 10 mg 2-22 tablet by ity of tablet 00:00: mouth 2 [place] 00 (two) Medical times Branch daily before breakfast and dinner. HYDROcodone 2020-0 Yes [id number] 1{tbl} Take 1 Univers -acetaminop 2-22 tablet by ity of hen 5-325 00:00: mouth [place] mg tablet 00 every 6 Medical (six) Branch hours as needed for Pain (scale 7-10). glipiZIDE 2020-0 Yes [id number] 10mg Take 1 Un grabiel 10 mg 2-22 tablet by ity of tablet 00:00: mouth 2 [place] 00 (two) Medical times Branch daily before breakfast and dinner. HYDROcodone 2020-0 Yes [id number] 1{tbl} Take 1 Univers -acetaminop 2-22 tablet by ity of hen 5-325 00:00: mouth [place] mg tablet 00 every 6 Medical (six) Branch hours as needed for Pain (scale 7-10). glipiZIDE 2020-0 Yes [id number] 10mg Take 1 Un grabiel 10 mg 2-22 tablet by ity of tablet 00:00: mouth 2 [place] 00 (two) Medical times Branch daily before breakfast and dinner. HYDROcodone 2020-0 Yes [id number] 1{tbl} Take 1 Univers -acetaminop 2-22 tablet by ity of hen 5-325 00:00: mouth [place] mg tablet 00 every 6 Medical (six) Branch hours as needed for Pain (scale 7-10). glipiZIDE 2020-0 Yes [id number] 10mg Take 1 Un grabiel 10 mg 2-22 tablet by ity of tablet 00:00: mouth 2 [place] 00 (two) Medical times Branch daily before breakfast and dinner. HYDROcodone 2020-0 Yes [id number] 1{tbl} Take 1 Univers -acetaminop 2-22 tablet by ity of hen 5-325 00:00: mouth [place] mg tablet 00 every 6 Medical (six) Branch hours as needed for Pain (scale 7-10). glipiZIDE 2020-0 Yes [id number] 10mg Take 1 Un grabiel 10 mg 2-22 tablet by ity of tablet 00:00: mouth 2 [place] 00 (two) Medical times Branch daily before breakfast and dinner. HYDROcodone 2020-0 Yes [id number] 1{tbl} Take 1 Univers -acetaminop 2-22 tablet by ity of hen 5-325 00:00: mouth [place] mg tablet 00 every 6 Medical (six) Branch hours as needed for Pain (scale 7-10). glipiZIDE 2020-0 Yes [id number] 10mg Take 1 Un grabiel 10 mg 2-22 tablet by ity of tablet 00:00: mouth 2 [place] 00 (two) Medical times Branch daily before breakfast and dinner. HYDROcodone 2020-0 Yes [id number] 1{tbl} Take 1 Univers -acetaminop 2-22 tablet by ity of hen 5-325 00:00: mouth [place] mg tablet 00 every 6 Medical (six) Branch hours as needed for Pain (scale 7-10). glipiZIDE 2020-0 Yes [id number] 10mg Take 1 Un grabiel 10 mg 2-22 tablet by ity of tablet 00:00: mouth 2 [place] 00 (two) Medical times Branch daily before breakfast and dinner. glipiZIDE 2020-0 Yes [id number] 10mg Take 1 Un grabiel 10 mg 2-22 tablet by ity of tablet 00:00: mouth 2 [place] 00 (two) Medical times Branch daily before breakfast and dinner. HYDROcodone 2020-0 Yes [id number] 1{tbl} Take 1 Univers -acetaminop 2-22 tablet by ity of hen 5-325 00:00: mouth [place] mg tablet 00 every 6 Medical (six) Branch hours as needed for Pain (scale 7-10). HYDROcodone 2020-0 Yes [id number] 1{tbl} Take 1 Univers -acetaminop 2-22 tablet by ity of hen 5-325 00:00: mouth [place] mg tablet 00 every 6 Medical (six) Branch hours as needed for Pain (scale 7-10). glipiZIDE 2020-0 Yes [id number] 10mg Take 1 Un grabiel 10 mg 2-22 tablet by ity of tablet 00:00: mouth 2 [place] 00 (two) Medical times Branch daily before breakfast and dinner. HYDROcodone 2020-0 Yes [id number] 1{tbl} Take 1 Univers -acetaminop 2-22 tablet by ity of hen 5-325 00:00: mouth [place] mg tablet 00 every 6 Medical (six) Branch hours as needed for Pain (scale 7-10). glipiZIDE 2020-0 Yes [id number] 10mg Take 1 Un grabiel 10 mg 2-22 tablet by ity of tablet 00:00: mouth 2 [place] 00 (two) Medical times Branch daily before breakfast and dinner. HYDROcodone 2020-0 Yes [id number] 1{tbl} Take 1 Univers -acetaminop 2-22 tablet by ity of hen 5-325 00:00: mouth [place] mg tablet 00 every 6 Medical (six) Branch hours as needed for Pain (scale 7-10). glipiZIDE 2020-0 Yes [id number] 10mg Take 1 Un grabiel 10 mg 2-22 tablet by ity of tablet 00:00: mouth 2 [place] 00 (two) Medical times Branch daily before breakfast and dinner. HYDROcodone 2020-0 Yes [id number] 1{tbl} Take 1 Univers -acetaminop 2-22 tablet by ity of hen 5-325 00:00: mouth [place] mg tablet 00 every 6 Medical (six) Branch hours as needed for Pain (scale 7-10). ciprofloxac 2020-0 2020- No [id number] 500mg Take 1 Univers in HCl 500 -04 12-01 tablet by ity of mg tablet 00:00: 05:59 mouth [place] 00 :00 every 12 Medical (twelve) Branch hours for 7 days. metroNIDAZO 2020-0 2020- No [id number] 500mg Take 1 Univers LE 500 mg [...] IV Push, ity of (PF)) 21:40: Q6HPRN, [place] injection 4 10 Starting Medi kyrie mg Wed Branch 11/03/19 at 1540, Until Discontinu ed, Routine, Nausea and Vomiting (N/V) metroNIDAZO 2019-0 2020- No 500mg 500 mg, IV Univers LE (FLAGYL 11-03 Piggyback, it y of I.V.) 19:30: 19:55 ONCE, 1 [place] Piggyback 00 :00 dose, Wed Medic al [...] Branch 1100, MANDEEP cyclobenzap 2018-09 2020- No [id number] 5mg Take 1 Univers rine 5 mg 11-06 9100 tablet by ity of tablet 00:00: 00:00 mouth 3 [place] 00 :00 (three) Medical times Branch daily. traMADol 2018-09- No [id number] 50mg Take 1 Univers (ULTRAM) 50 11-06 [...] 02:00:00 165 mm[Hg] Univer sity of pressure [facility] Diastolic blood 2022-07-13 02:00:00 96 mm[Hg] [facility] Heart rate 2022-07-13 02:00:00 88 /min Universi ty of [place] [facility] Respiratory rate 2022-07-13 02:00:00 18 /min Univ ersity of [place] [facility] Oxygen saturation in 2022-07-13 02:00:00 98 /min University of Arterial blood by [place] Pollsb kyrie Pulse oximetry Branch Body temperature 2022-07-13 01:48:00 37 Leonor Univ ersity of [place] [facility] Body height 2022-07-13 01:25:00 188 cm Universi ty of [place] [facility] Body weight 2022-07-13 01:25:00 129.275 kg Universi ty of [place] [facility] BMI 2022-07-13 01:25:00 36.59 kg/m2 Universi ty of [place] [facility] Systolic blood 2022-07-07 02:21:33 135 mm[Hg] Univer sity of pressure [place] [facility] Diastolic blood 2022-07-07 02:21:33 81 mm[Hg] Unive rsity of pressure [place] [facility] Heart rate 2022-07-07 02:21:33 93 /min Universi ty of [place] [facility] Respiratory rate 2022-07-07 02:21:33 18 /min Univ ersity of [place] [facility] Oxygen saturation in 2022-07-07 02:21:33 96 /min University of Arterial blood by [place] Pollsb kyrie Pulse oximetry Branch Body temperature 2022-07-07 00:44:00 37 Leonor Univ ersity of [place] [facility] Body height 2022-07-07 00:44:00 188 cm Universi ty of [place] [facility] Body weight 2022-07-07 00:44:00 129.275 kg Universi ty of [place] [facility] BMI 2022-07-07 00:44:00 36.59 kg/m2 [...] 99 /min University of Arterial blood by [place] Pollsb kyrie Pulse oximetry Branch Body temperature 2022-06-21 16:02:00 37.06 Leonor Univ ersity of [place] [facility] [place] Body height 2022-06-21 16:02:00 188 cm Universi ty of [place] [facility] [place] Body weight 2022-06-21 16:02:00 127.007 kg Universi ty of [place] [facility] BMI 2022-06-21 16:02:00 35.95 kg/m2 Universi ty of [facility] Systolic blood 2020-04-24 13:23:00 129 mm[Hg] Univer sity of pressure [place] [facility] [place] Diastolic blood 2020-04-24 13:23:00 81 mm[Hg] Unive rsity of pressure [facility] Heart rate 2020-04-24 13:23:00 82 /min Universi ty of [place] [facility] [place] Body weight 2020-04-24 13:23:00 138.075 kg Universi ty of [place] [facility] [place] BMI 2020-04-24 13:23:00 39.08 kg/m2 Universi ty of [facility] Systolic blood 2020-04-24 13:23:00 129 mm[Hg] Univer sity of pressure [place] [facility] Diastolic blood 2020-04-24 13:23:00 81 mm[Hg] Unive rsity of pressure [place] [facility] [place] Heart rate 2020-04-24 13:23:00 82 /min Universi ty of [place] [facility] [place] Body weight 2020-04-24 13:23:00 138.075 kg Universi ty of [place] [facility] BMI 2020-04-24 13:23:00 39.08 kg/m2 Universi ty of [facility] Branch Systolic blood 2020-04-07 03:51:00 118 mm[Hg] Univer sity of pressure [facility] Diastolic blood 2020-04-07 03:51:00 68 mm[Hg] Unive rsity of pressure [place] [facility] [place] Heart rate 2020-04-07 03:51:00 92 /min Universi ty of [facility] Branch Respiratory rate 2020-04-07 03:51:00 16 /min Univ ersity of [facility] Oxygen saturation in 2020-04-07 03:51:00 100 /min [facility] Arterial blood by [facility] Pulse oximetry Branch Body temperature 2020-04-07 03:40:00 36.44 Leonor Univ ersity of [place] [facility] [place] Body weight 2020-04-07 00:07:00 129.275 kg Universi ty of [place] [facility] BMI 2020-04-07 00:07:00 36.59 kg/m2 Universi ty of [place] [facility] Heart rate 2020-02-19 23:10:00 105 /min Universi ty of [place] [facility] Respiratory rate 2020-02-19 23:10:00 29 /min Univ ersity of [facility] Branch Oxygen saturation in 2020-02-19 23:10:00 94 /min University of Arterial blood by [place] Pollsb kyrie Pulse oximetry Branch Systolic blood 2020-02-19 23:00:00 127 mm[Hg] Univer sity of pressure [place] [facility] Diastolic blood 2020-02-19 23:00:00 78 mm[Hg] Unive rsity of pressure [facility] Body temperature 2020-02-19 22:04:10 37.33 Leonor Univ ersity of [facility] Body height 2020-02-19 19:56:00 188 cm Universi ty of [place] [facility] [place] Body weight 2020-02-19 19:56:00 129.275 kg Universi ty of [place] [facility] BMI 2020-02-19 19:56:00 36.59 kg/m2 Universi ty of [place] [facility] Systolic blood 2019-11-06 17:14:00 138 mm[Hg] Univer sity of pressure [facility] Branch Diastolic blood 2019-11-06 17:14:00 88 mm[Hg] Unive rsity of pressure [facility] Heart rate 2019-11-06 17:14:00 102 /min Universi ty of [facility] Respiratory rate 2019-11-06 17:14:00 18 /min Univ ersity of [facility] Oxygen saturation in 2019-11-06 17:14:00 96 /min University of Arterial blood by [facility] kyrie Pulse oximetry Branch Body temperature 2019-11-06 14:00:00 36.72 Leonor Univ ersity of [place] [facility] Body height 2019-11-03 23:00:00 188 cm Universi ty of [place] [facility] Body weight 2019-11-03 15:22:00 129.275 kg Universi ty of [facility] Branch BMI 2019-11-03 15:22:00 36.58 kg/m2 Universi ty of [facility] Branch Procedures Procedure Date / Time Performing Clinician Source Performed CONSENT/REFUSAL FOR 2022-07-13 01:17:58 Doctor Unassigned, No Un [facility] DIAGNOSIS AND TREATMENT Name Medical Branch CONSENT/REFUSAL FOR 2022-07-07 00:35:11 Doctor Unassigned, No Un [facility] [place] DIAGNOSIS AND TREATMENT Name Medical Branch CT HEAD WO CONTRAST 2022-06-21 17:34:58 Stephanie Oneal [facility] Medical [place] XR CHEST 1 VW 2022-06-21 16:37:11 Stephanie Oneal [facility] TROPONIN I 2022-06-21 16:28:00 Stephanie Oneal [facility] BASIC METABOLIC PANEL 2022-06-21 16:28:00 Stephanie Oneal [facility] (NA, K, CL, CO2, Medical Branch GLUCOSE, BUN, CREATININE, CA) CBC WITH DIFF 2022-06-21 16:28:00 Stephanie Oneal [facility] NOTICE OF PRIVACY 2022-06-21 15:51:50 [facility], [facility] CONSENT/REFUSAL FOR 2022-06-21 15:51:34 Doctor Unassigned, No Un [facility] [place] DIAGNOSIS AND TREATMENT Name Medical [place] EGD (ENDO) 2020-04-07 02:31:21 Lisa Armendariz [facility] COMP. METABOLIC PANEL 2020-04-07 01:52:00 Yazmin Apple [facility] ([id number]) Medical Branch CBC WITH DIFF 2020-04-07 01:52:00 Yazmin [facility] XR NECK SOFT TISSUE 2020-04-07 00:57:29 Yazmin Apple [facility] COVID-19 (ID NOW RAPID 2020-04-07 00:40:00 Yazmin Apple [facility] TESTING) Medical Branch NOTICE OF PRIVACY 2020-04-06 23:57:19 Doctor Un[facility]igned, No [facility] Name Medical Branch CONSENT/REFUSAL FOR 2020-04-06 23:57:05 Doctor Unassigned, No Un [facility] [place] DIAGNOSIS AND TREATMENT Name Medical Branch REFERRAL- 2020-03-29 05:01:00 Doctor Unassigned, No [facility] REQUEST/RESPONSE Name Medical Branch POCT GLUCOSE 2020-02-19 23:05:00 Stephanie Oneal [facility] (AUTOMATED) Medical Branch POCT GLUCOSE 2020-02-19 21:52:00 Stephanie Oneal [facility] (AUTOMATED) Medical Branch COMP. METABOLIC PANEL 2020-02-19 20:47:00 Stephanie Oneal [facility] ([id number]) Medical Branch CBC WITH DIFFERENTIAL 2020-02-19 20:47:00 Stephanie Oneal [facility] Medical Branch COVID-19 (ID NOW RAPID 2020-02-19 20:47:00 Stephanie Oneal [facility] TESTING) Medical Branch NOTICE OF PRIVACY 2020-02-19 19:53:34 Doctor Unassigned, No [facility] PRACTICES Name Medical Branch CONSENT/REFUSAL FOR 2020-02-19 19:53:23 Doctor Unassigned, No [facility] DIAGNOSIS AND TREATMENT Name Medical Branch POCT GLUCOSE 2019-11-06 13:36:00 [facility]ra [facility] (AUTOMATED) Medical Branch POCT GLUCOSE 2019-11-06 01:48:00 [facility] (AUTOMATED) Medical Branch POCT GLUCOSE 2019-11-05 22:16:00 [facility] (AUTOMATED) Medical Branch POCT GLUCOSE 2019-11-05 17:26:00 [facility] (AUTOMATED) Medical Branch POCT GLUCOSE 2019-11-05 13:21:00 [facility] (AUTOMATED) Medical Branch BASIC METABOLIC PANEL 2019-11-05 10:28:00 [facility], [facility], CL, CO2, Medical Branch GLUCOSE, BUN, CREATININE, CA) CBC WITH DIFFERENTIAL 2019-11-05 10:28:00 [facility] POCT GLUCOSE 2019-11-05 10:12:00 [facility] (AUTOMATED) Medical Branch POCT GLUCOSE 2019-11-05 06:12:00 [facility] (AUTOMATED) Medical Branch POCT GLUCOSE 2019-11-05 01:41:00 [facility] (AUTOMATED) Medical Branch POCT GLUCOSE 2019-11-04 22:26:00 [facility] (AUTOMATED) Medical Branch POCT GLUCOSE 2019-11-04 17:20:00 [facility] (AUTOMATED) Medical Branch POCT GLUCOSE 2019-11-04 13:21:00 [facility] (AUTOMATED) Medical Branch POCT GLUCOSE 2019-11-04 11:57:00 [facility] (AUTOMATED) Medical Branch POCT GLUCOSE 2019-11-04 05:30:00 [facility] (AUTOMATED) Medical Branch POCT GLUCOSE 2019-11-04 02:17:00 [facility] (AUTOMATED) Medical Branch POCT GLUCOSE 2019-11-03 23:23:00 [facility] (AUTOMATED) Medical Branch POCT GLUCOSE 2019-11-03 21:41:00 [facility] (AUTOMATED) [facility] SURGICAL PATHOLOGY EXAM 2019-11-03 20:26:00 [facility] 2019-11-03 19:24:00 Yonatan Lund [facility] APPENDECTOMY [facility] CT ABDOMEN PELVIS W 2019-11-03 17:41:22 Ervin Rhoades [facility] CONTRAST [facility] Branch LIPASE 2019-11-03 15:35:00 Jf [facility] COMP. METABOLIC PANEL 2019-11-03 15:35:00 Ervin Rhoades [facility] ([id number]) [facility] CBC WITH DIFFERENTIAL 2019-11-03 15:35:00 Jf Ervin [facility] GLYCOSYLATED HEMOGLOBIN 2019-11-03 15:35:00 Stephanie Pichardo [facility] (A1C) [facility] URINALYSIS 2019-11-03 15:35[facility] Start End Encounter Admission Attending Care Care Encounter Source Date/Time Date/Time Type Type Clinicians Facility Department ID 2022-07-12 2022-07-12 Emergency X [facility] ERT [id number] Univers 20:32:00 22:17:00 YADIEL osman [facility] 2022-07-12 2022-07-12 Emergency [facility] [id number] Univers 20:32:00 22:17:00 Yadiel PATEL [id number] i ty of [place] [id number] [facility] [id number] [address] 2022-07-12 2022-07-12 Outpatient Tanja NOVOA, [facility] [id number] Univers 08:40:00 08:40:00 DAVID victor manuel [facility] 2022-07-06 2022-07-06 [facility] [id number] Univers 19:49:00 23:18:00 ALEXIS victor manuel [facility] 2022-07-06 2022-07-06 Emergency [facility] [id number] Univers 19:49:00 23:18:00 Alexis Monroy AMANDA [id number] ity of [place] [id number] [place] [id number] 2022-06-21 2022-06-21 Emergency [facility] [id number] Univers 11:04:00 13:54:00 STEPHANIE [facility] 2022-06-21 2022-06-21 [facility] [id number] Univers 11:04:00 13:54:00 Stephanie Monroy AMANDA [id number] i ty of [place] [id number] [facility] [id number] [address] 2022-06-21 2022-06-21 Orders Doctor NAREN [id number] Univers 00:00:00 00:00:00 Only Unassigned, MIRI [id number] ity of [place] [facility] [id number] [facility] [id number] [address] 2020-08-15 2020-08-15 Outpatient [facility] [id number] Univers 10:00:00 10:00:00 SILVINA osman [facility] 2020-04-24 2020-04-24 Office Dolores, [facility] 1.2.840.114 [id number] 08:15:37 08:49:56 Visit Norberto Kothari Amanda 350.1.13.10 [place] 4.2.7.2.686 Professio [phone] nal [address] [place] [address] 2020-04-24 2020-04-24 Office Dolores [facility] 1.2.840.114 [id number] Univers 08:15:37 08:49:56 Visit Norberto Patel 350.1.13.10 [place] of [place] [phone] [place]ical [address] 2020-04-24 2020-04-24 Outpatient R NOBRERTO BERNAL [facility] [id number] Univers 08:00:00 08:00:00 NORBERTO BERNAL ity of [facility] 2020-04-06 2020-04-06 Emergency Yazmin Apple [facility] 1.2.840.114 [id number] Univers 19:12:13 22:55:00 Melanie Patel 350.1.13.10 i [place] [phone] [address] 2020-04-06 2020-04-06 Emergency X Yazmin APPLE [facility] ERT [id number] Univers 19:12:13 19:12:[address] [facility] 2020-04-06 2020-04-06 Orders Doctor SNEED 1.2.840.114 [id number] Univers 00:00:00 00:00:00 Only Unassigned, MIRI 350.1.13.10 ity of [place] [facility] 4.2.7.2.686 Danie as [phone] [address] 2020-03-29 2020-03-29 Orders Doctor SNEED 1.2.840.114 [id number] Univers 00:00:00 00:00:00 Only Unassigned, MIRI 350.1.13.10 ity of [place] [facility] 4.2.7.2.686 Danie as [phone] [address] 2020-02-19 2020-02-19 Emergency Jm [facility] 1.2.940.668 [id number] Univers 15:07:18 19:22:00 Stephanie Patel 350.1.13.10 i ty of [place] 4.2.7.2.686 [facility] [phone] [facility] [address] 2020-02-19 2020-02-19 Emergency X [facility] ERT [id number] Univers 14:53:00 14:53:[address] [facility] 2020-02-19 2020-02-19 Orders Doctor NAREN 1.2.840.114 [id number] Univers 00:00:00 00:00:00 Only Unassigned, MIRI 350.1.13.10 ity of [place] [facility] 4.2.7.2.686 Danie [phone] [facility] [address] 2019-11-08 2019-11-08 Transition Faraz Nicolas 1.2.840.114 [id number] Univers 00:00:00 00:00:00 of Care Hortensia De Jesus 350.1.13.10 ity of [place] 4.2.7.2.686 [facility] [phone] [facility] [address] 2019-11-03 2019-11-06 Hospital Ervin Rhoades [facility] 1.2.840.1 14 [id number] Univers 09:25:15 12:00:00 Encounter Luis Arshad 350.1.13.10 ity of [place] 4.2.7.2.686 [facility] [phone] [facility] [address] 2019-11-03 2019-11-06 Inpatient X PAVITHRA TNARIANA TIMOTEO [id number] Univers 09:25:15 12:00:00 [facility] Test Description Test Time Test Comments Results Result Comments Source TROPONIN I 2022-06-21 17:02:55 Test Item Value Reference Range Interpretation Comme nts TROPONIN I (test code = 0.004 ng/mL See_Comment [Au tomated message] The [id number]) system which ge nerated this result tra [...] biotin. Lab Interpretation Normal (test code = 44845-4) [facility] METABOLIC PANEL (NA, K, CL, CO2, GLUCOSE, BUN, CREATININE, CA)2022-06-21 16:50:52 Test Item Value Reference Range Interpretation Comments NA (test code = 137 mmol/L 135-145 6620711811) K (test code = 4.6 mmol/L 3.5-5 7015395797) CL (test code = 97 mmol/L 98-108 L 3852795873) CO2 TOTAL (test code = 30 mmol/L 23-31 0963369528) AGAP (test code = 2-16 8771442921) BUN (test code = 11 mg/dL 7-23 2465993424) GLUCOSE (test code = 214 mg/dL 70-110 H 3756992751) CREATININE (test code = 1.16 mg/dL 0.6-1.25 9788765500) CALCIUM (test code = 8.5 mg/dL 8.6-10.6 L 8162486530) eGFR (test code = mL/min/1.73m2 9240559657) KATE (test code = KATE) Association of [...] tests). Lab Interpretation Abnormal (test code = 11268-8) [facility] WITH [id number] 16:39:51 Test Item Value Reference Range Interpretation Comments WBC (test code = See_Comment [Automated 8490-2) message] The sy stem which generated this result transmitted reference range : 4.20 - 10.70 10*3/?L. The reference range was not used to interpret this result as normal/abnormal . RBC (test code = See_Comment H [Automated 049-8) message] The sy stem which generated this [...] (test code = 37.0 fL 38.5-51.6 L 53296-0) RDW-CV (test code = 13.2 % 12.1-15.4 788-0) PLT (test code = See_Comment [Automated 727-3) message] The sy stem which generated this result transmitted reference range : 150 - 328 10*3/ ?L. The reference r jevon was not used to interpret this result as normal/abnormal . MPV (test code = 11.1 fL 9.8-13 28419-8) NRBC/100 WBC (test See_Comment [Automat ed code = 1320692932) message] The system which generated this result transmitted reference range : 0.0 - 10.0 /100 WBCs. The refer ence range was not u sed to interpret th is result as normal/abnormal . NRBC x10^3 (test code See_Comment [Auto mated = 6428793139) message] The s ystem which generated this result transmitted reference range : 10*3/?L. The reference range was not used to interpret this result as normal/abnormal . GRAN MAT (NEUT) % 67.3 % (test code = 770-8) IMM GRAN % (test code 0.20 % = 1294431903) LYMPH % (test code = 23.5 % 736-9) MONO % (test code = 5.7 % 5905-5) EOS % (test code = 2.6 % 713-8) BASO % (test code = 0.7 % 706-2) GRAN MAT x10^3(ANC) 3.93 10*3/uL 1.99-6.95 (test code = 1735087906) IMM GRAN x10^3 (test 0-0.06 code = 8786023627) LYMPH x10^3 (test code 1.37 10*3/uL 1.09-3.23 = 731-0) MONO x10^3 (test code 0.33 10*3/uL 0.36-1.02 L = 742-7) EOS x10^3 (test code = 0.15 10*3/uL 0.06-0.53 711-2) BASO x10^3 (test code 0.04 10*3/uL 0.01-0.09 = 704-7) Lab Interpretation Abnormal (test code = 61608-2) [facility] (45771)2020-04-07 03:03:00 Test Item Value Reference Range Interpretation Comments NA (test code = 139 mmol/L 135-145 1175537280) K (test code = 4.4 mmol/L 3.5-5 2949882502) CL (test code = 101 mmol/L 98-108 4692090651) CO2 TOTAL (test code = 28 mmol/L 23-31 1795667665) AGAP (test code = 2-16 5455808765) BUN (test code = 11 mg/dL 7-23 2788064140) GLUCOSE (test code = 225 mg/dL 70-110 H 6626190536) CREATININE (test code = 0.98 mg/dL 0.6-1.25 3104985090) TOTAL BILI (test code = 0.5 mg/dL 0.1-1.8 8129973207) CALCIUM (test code = 9.6 mg/dL 8.6-10.6 7373544535) T PROTEIN (test code = 8.2 g/dL 6.3-8.2 1492273756) ALBUMIN (test code = 4.7 g/dL 3.5-5 3836547836) ALK PHOS (test code = 75 U/L 34-122 4617490099) ALTv (test code = 74 U/L 5-50 H 1742-6) AST(SGOT) (test code = 39 U/L 13-40 8157137899) eGFR Calculation mL/min/1.73m2 (Non-) (test code = 2674357196) eGFR Calculation mL/min/1.73m2 () (test code = 2425863751) KATE (test code = KATE) Association of [...] tests). Lab Interpretation Abnormal (test code = 39649-6) [facility] WITH [id number] 02:12:00 Test Item Value Reference Range Interpretation Comments WBC (test code = See_Comment [Automated 9881-2) message] The sy stem which generated this result transmitted reference range : 4.20 - 10.70 10*3/?L. The reference range was not used to interpret this result as normal/abnormal . RBC (test code = See_Comment H [Automated 639-8) message] The sy stem which generated this [...] (test code = 36.4 fL 38.5-51.6 L 31467-2) RDW-CV (test code = 12.5 % 12.1-15.4 788-0) PLT (test code = See_Comment [Automated 777-3) message] The sy stem which generated this result transmitted reference range : 150 - 328 10*3/ ?L. The reference r jevon was not used to interpret this result as normal/abnormal . MPV (test code = 11.5 fL 9.8-13 27419-3) NRBC/100 WBC (test See_Comment [Automat ed code = 6056606471) message] The system which generated this result transmitted reference range : 0.0 - 10.0 /100 WBCs. The refer ence range was not u sed to interpret th is result as normal/abnormal . NRBC x10^3 (test code <0.01 See_Comment [Auto mated = 8089456996) message] The s ystem which generated this result transmitted reference range : 10*3/?L. The reference range was not used to interpret this result as normal/abnormal . GRAN MAT (NEUT) % 68.0 % (test code = 770-8) IMM GRAN % (test code 0.40 % = 8628875509) LYMPH % (test code = 23.8 % 736-9) MONO % (test code = 4.7 % 5905-5) EOS % (test code = 2.7 % 713-8) BASO % (test code = 0.4 % 706-2) GRAN MAT x10^3(ANC) 5.24 10*3/uL 1.99-6.95 (test code = 1759949088) IMM GRAN x10^3 (test 0.03 10*3/uL 0-0.06 code = 2482064904) LYMPH x10^3 (test code 1.83 10*3/uL 1.09-3.23 = 731-0) MONO x10^3 (test code 0.36 10*3/uL 0.36-1.02 = 742-7) EOS x10^3 (test code = 0.21 10*3/uL 0.06-0.53 711-2) BASO x10^3 (test code 0.03 10*3/uL 0.01-0.09 = 704-7) Lab Interpretation Abnormal (test code = 43892-6) [facility]ID NOW RAPID TESTING)2020-04-07 01:40:00 Test Item Value Reference Range Interpretation Comments SARS-CoV-2 Rapid ID NOW Not Detected Not Detected (test code = 08955-7) KATE (test code = KATE) ID NOW COVID-19 Assay is an isothermal nucleic acid amplification test intended for the qualitative detection of nucleic acid from SARS-CoV-2 viral RNA in nasopharyngeal (M[employer]ICIPAL SERVICES MANAGER) specimens. It is used under Emergency [...] indicated. Lab Interpretation Normal (test code = 59324-5) [facility] N[facility] SOFT [id number] 01:06:58 FINDINGS/IMPRESSION:: Frontal and lateral radiographs of the neck soft tissues were performed. No radiopaque foreign body identified. The oropharyngeal and nasopharyngealairways are patent. The prevertebral soft tissues are unremarkable. Mild spondylotic changes at C5-C6. Cervical spine is otherwiseun remarkable. EXAM: XR NECK SOFT TISSUE HISTORY: esophageal fb COMPARISON: None. [facility], Radiant ResultsInft User - 04/06/2020 8:08 PM CDTEXAM: XR NECK SOFT TISSUEHISTORY: esophageal fb COMPARISON: None.IMPRESSIONFINDINGS/IMPRESSION:: Frontal and lateral radiographs of the neck soft tissues were performed.No radiopaque foreign body identified. The oropharyngeal and nasopharyngealairways are patent. The prevertebral soft tissues are unremarkable.Mild spondylotic changes at C5-C6. Cervical spine is otherwiseunremarkable.[facility] GLUCOSE (AUTOMATED)2020-02-19 23:08:00 Test Item Value Reference Range Interpretation Comments POCT GLU (test code = 5246242513) 243 mg/dL 70-110 H Lab Interpretation (test code = Abnormal 89039-6) [facility] GLUCOSE (AUTOMATED)2020-02-19 21:58:00 Test Item Value Reference Range Interpretation Comments POCT GLU (test code = 6357343620) 313 mg/dL 70-110 H Lab Interpretation (test code = Abnormal 17066-1) [facility] (ID NOW RAPID TESTING)2020-02-19 21:31:00 Test Item Value Reference Range Interpretation Comments SARS-CoV-2 Rapid ID NOW Not Detected Not Detected (test code = 16756-6) KATE (test code = KATE) ID NOW COVID-19 Assay is an isothermal nucleic acid amplification test intended for the qualitative detection of nucleic acid from SARS-CoV-2 viral RNA in nasopharyngeal (MUNICIPAL SERVICES MANAGER) specimens. It is used under Emergency [...] indicated. Lab Interpretation Normal (test code = 13873-9) [facility]OLIC PAN[facility] (91990)2020-02-19 21:29:00 Test Item Value Reference Range Interpretation Comments NA (test code = 134 mmol/L 135-145 L 2965310386) K (test code = 4.1 mmol/L 3.5-5 8063400867) CL (test code = 99 mmol/L 98-108 1088913813) CO2 TOTAL (test code = 27 mmol/L 23-31 3564542477) AGAP (test code = 2-16 1764727979) BUN (test code = 10 mg/dL 7-23 3423762102) GLUCOSE (test code = 372 mg/dL 70-110 H 7374841750) CREATININE (test code = 0.96 mg/dL 0.6-1.25 2725662737) TOTAL BILI (test code = 0.4 mg/dL 0.1-1.2 6243836404) CALCIUM (test code = 9.2 mg/dL 8.6-10.6 8124108864) T PROTEIN (test code = 7.5 g/dL 6.3-8.2 9875448494) ALBUMIN (test code = 4.5 g/dL 3.5-5 1699017163) ALK PHOS (test code = 86 U/L 34-122 0894203899) ALTv (test code = 48 U/L 5-50 1742-6) AST(SGOT) (test code = 27 U/L 13-40 5472463880) eGFR Calculation mL/min/1.73m2 (Non-) (test code = 3178125927) eGFR Calculation mL/min/1.73m2 () (test code = 2797611842) KATE (test code = KATE) Association of [...] tests). Lab Interpretation Abnormal (test code = 54669-7) [facility] WITH [id number] 21:06:00 Test Item Value Reference Range Interpretation Comments WBC (test code = See_Comment [Automated 5690-2) message] The sy stem which generated this [...] (test code = 36.3 fL 38.5-51.6 L 70030-9) RDW-CV (test code = 12.9 % 12.1-15.4 788-0) PLT (test code = See_Comment [Automated 777-3) message] The sy stem which generated this result transmitted reference range : 150 - 328 10*3/ ?L. The reference r jevon was not used to interpret this result as normal/abnormal . MPV (test code = 11.3 fL 9.8-13 81246-7) NRBC/100 WBC (test See_Comment [Automat ed code = 9005740432) message] The system which generated this result transmitted reference range : 0.0 - 10.0 /100 WBCs. The refer ence range was not u sed to interpret th is result as normal/abnormal . NRBC x10^3 (test code <0.01 See_Comment [Auto mated = 4069696703) message] The s ystem which generated this result transmitted reference range : 10*3/?L. The reference range was not used to interpret this result as normal/abnormal . GRAN MAT (NEUT) % 79.8 % (test code = 770-8) IMM GRAN % (test code 0.50 % = 9446647557) LYMPH % (test code = 13.4 % 736-9) MONO % (test code = 4.2 % 5905-5) EOS % (test code = 1.8 % 713-8) BASO % (test code = 0.3 % 706-2) GRAN MAT x10^3(ANC) 8.49 10*3/uL 1.99-6.95 H (test code = 0758553243) IMM GRAN x10^3 (test 0.05 10*3/uL 0-0.06 code = 2100454306) LYMPH x10^3 (test code 1.42 10*3/uL 1.09-3.23 = 731-0) MONO x10^3 (test code 0.45 10*3/uL 0.36-1.02 = 742-7) EOS x10^3 (test code = 0.19 10*3/uL 0.06-0.53 711-2) BASO x10^3 (test code 0.03 10*3/uL 0.01-0.09 = 704-7) Lab Interpretation Abnormal (test code = 60711-3) [facility] GLUCOSE (AUTOMATED)2019-11-06 13:38:00 Test Item Value Reference Range Interpretation Comments POCT GLU (test code = 5776567832) 116 mg/dL 70-110 H Lab Interpretation (test code = Abnormal 77455-7) [facility] GLUCOSE (AUTOMATED)2019-11-06 12:29:00 Test Item Value Reference Range Interpretation Comments POCT GLU (test code = 4819468825) 322 mg/dL 70-110 H Lab Interpretation (test code = Abnormal 32008-4) [facility] GLUCOSE (AUTOMATED)2019-11-06 12:29:00 Test Item Value Reference Range Interpretation Comments POCT GLU (test code = 9829674152) 230 mg/dL 70-110 H Lab Interpretation (test code = Abnormal 06978-6) [facility] GLUCOSE (AUTOMATED)2019-11-06 02:00:00 Test Item Value Reference Range Interpretation Comments POCT GLU (test code = 155 mg/dL 70-110 H Notifi ed Provider 3035902754) Lab Interpretation (test Abnormal code = 97610-6) [facility] [id number] 00:02:00 Test Item Value Reference Range Interpretation Comments Case Report (test code Surgical Pathology ? ? = 8130501899) ?Case: [id number] ? Authorizing Provider: ?Yonatan Lund MD ? ? ? Collected: ? 11/03/2019 1426 ?Ordering Location: ? ? [facility] ? ? ?Received: ?11/03/2019 1555 ? [facility] Center ?Pathologist: ? Klaus Tinoco MD ? Specimen: ? ?APPENDIX, appendix ? Final Diagnosis (test n2rsfQIfMNCpk5wvWXQviH code = 7845348368) FuZzEwMzNcZnRuYmpcdWMx JWfhpfIlQWmlv1LxX0DrMu AwMFxhbnNpXGRlZmxhbmcx EINfUIP0nzLdCDJzSBerFP CmREjbDb1qjUJstMnxJuMh TVAkj2cvemIPkcorhVf7c8 qsTLMdQqR9zFXnECptG1la meSiaJWmTIYxHEv1lZ69EB GvxS8wnQNaYRagpiXyHHbk mrCiryVvXig6ELYzT9hjIK WlTIKfG3LfYK1cWZZrRkw4 EYP3SBX9mRotk3N1wWLisV ZleMcyQcXyYvNpOVQIt9Rs GCi5sPpoO5HrETGbKxP4mY QgUGFyYWdyYXBoIEZvbnQ7 sI32WVrkghD3sWVih4Npx2 4qn265kG2glZNfRQL7TTPj TCGppEJqIPTcGWG4WDRiiZ EdJ1oiEXnqNG8gifjyYEX1 MFxtYXJndDcyMFxtYXJnYj DmwPEbVGQzxZpuLJweo673 ORY2FeWaKJ8fX1Fea4V3wL 9maXRcZGVmdGFiNzIwXGZv px2vjQQfQCxpp5LmHSY9gl E3bUHxrTAiNCUzYB99Mygy m3LfOvpxKSN9OELbmxFsm4 Vsb8phXvVndnSfK5ecW6Wt ZHJoZWFkXHBnYnJkcmZvb3 Trd7UilKXgaWy5x9clPAPu YLCwaUxnw3lqJFE9RQXtE4 M5mGGpw3rlPYlkZXLupEK2 aeBbZMDtvYDbB3PxxT4rMT obQU1zkcx3a8nbFiKkSC8g ckspu8xbJMjrEFNnCMY7Lf FkPVOfm6WjlzzgKgRkq4Hp jAXgUOvtK41dn019WLXxlu XfQ2sjwXEgvtzwlFSpphji MFxmczIwXHFsXHBsYWluXG FhQGKnAcApePektJ2zBnGq ZnMyMFxwYXJccGFyZFxwbG FpblxmMFxmczIwXHBsYWlu LNNcNLEoOwYgLM4xPTFHQN 2AEBngGKZZVZZJDXNPXF9L WTpccGFyXHFsXHBsYWluXG XiZLQyTwEmkVrjpV2hXgFz HfKkPBWdZSGbGK5kEFHVQD LzNRIJZH1XAERXPUhJLKiX YMmmZSQHOO7FRGAMBaNVH3 lUSVNccGFyXHBhciBNYXR0 fVG1LPWcqTByZNUVIKjhWJ RgrRgcsI2sTbGhFvRsYwij ZH2rMUPsO2ubfOWyDJThQN AsT2btYzNhuN6brHpjIMjc ZjFcZnMyMiBIYXJzaHdhcm OnXG8cETimm7GnDDIWZMBj Km1qSU0wMDKyQPO9AfCdJJ BNXHBsYWluXGYxXGZzMjBc rMTaaKbdixQvROqjy3IgP1 YyMjAwMFxhbnNpXGRlZmxh oqxkNTXbHDH3yjZaKONrST gsPRCuHTzmAf2qtYNmbNig YnVwYQLud7uwpsKCCEiiJs MyI717VXHsCLipb5vrr1Pq QQEohDQzl3P7MVWVrabtwT f5a5hzEiPwVmX1wQYnBBmd Y4lxzsSmqCFeF3MsoGPahO f7mEtkU64ht9C7VnbzY2zu TJTxHJAoJ5FpHJ6nEIHbCz h1WVA5HRK8AQTiWZYyG4Jf VL2rBFNlqRBqRHc6d0uchK pdTBIuSRO7l3pjLCxnxwR3 SF7iya7bnLn0o0ruueIzCD IpZIKldWUARUWsL9SvzAup Gi4wfZt0hLyfSkwzRUY4Ry n6OM6efj36egl0pKeqJOMb sgaeJwS6HUtcCZTmxqaeHD k3YEwjFTXdhFW4MKBrpUGr V6EfKROzCR1qhqv6FNJ1NW pzIQVyFzF5IWSacAWwLMOi rAifQLygx721BXE2NaQdPN 6wL4Two8Y6mY3fxRZeAMMn dSEbCpNgKGKyty8hsHJdDZ gyy8KiOVV4lzT8tHQlbDWy YZFiOB41Kvbsl6DoZutdYE I0NSEmxuVdz6Xue0gkRxCd doDgG6srA8BoVNPhDCWfPF IaVnSbxhCfw5Kxg3LmyMQu kXf1o3vzULGvHYQhiQked1 nlWHB4STSeE2E5hLUvj9mq HGdqZHHxmOZ3ngL5UESwbZ QrK3UqwV4iFHVrSP7ymnp5 c7lhWFX1TUthXZLxVjF8ou E2YXCysRTiDVLsfVcnQHpi g104DZO5YsUsUQGez1HcW2 OhfTmuZ01eePggD98tKMAt rKvfdT0eyOipaP2uBaDeSr MyNFxxbFxwbGFpblxmMVxm czIwXGxhbmcxMDMzXGhpY2 bgSfGdOUTjbPnpQMiyb0Mk XGYxXGNmMlxmczIwXHBhci DTUMldgbLnoWCpz85bJMod eSByZXZpZXdlZCBhbGwgc3 NgK6ipMW1dI6OnxODqchTk wyTmSDsuGVYoa9d7tKSdmH oxb9BdkGUhEG96bzXdZTWl WIZ5JGKyx1ojDG65pzzsMc VzbG84lpTnnlMtPLYnt3ob W1ntbFTzd6Blx2EjdgSzTP rwv3FgHL7ntKZikeofiBA1 QGTqnCEroxYzssB8pFylDM YblO6zaH2vxXfpoU8zKeGk JqZkGYaiGD2bBKIdD8uzhH QzSNZuGGKoD3etXcFrtO7e yIanRgepekZ4RNMxoj27 Clinical Information Acute abdomen (test code = 9842626767) Gross Description (test h0lceVDcTMSpfNIiXpDaQN code = 1847501891) MvJXTzk9gpLIWewXHmJkKe MzNcZnRuYmpcdWMxXGRlZm Maj3qlm724rYYzr2gfNEIr TiK3vIEcTJXesARnB049HI KwLLmpj2yyl6YeIESlrWDo k0U6NSFXmvkuiMh2iWisG5 9ps7L1LledI2ewWUVeEFyp ALKbFNqtkQHfRWX5TIQpCW N3TYedmiEddxF0GQkewNJm KbW2MQl5m1ixoFpsCNHiNB Z1b9obLWxxvxVnTK3fjk6s rQp7j8vmnjMuVNYzNDMkpT VIBMFcM5NgdGejNs5tiUi1 cMorNchbGAG8Nyh4FV6gcb 04vvl2kVelUNShkcfvZvP0 RVsuMNUpeidjIPa4YKorCI XcxGQwBUZrnKDvU0KwINtv GV7vbdr1GmJyFD0puzqtTH zfQPRsQWA5ZzHlAGSnm1Mw fbrkGlLaoz8qdf52TTF0v5 YeuJbuOTA3VIQ3VkHxCb2f hQZqMQXpKW8hNrKbyGZyWM Tkxh59xYngRPsfjeYvnP1o HqXuHSPlbUGhIUQoCX4mcI FvENFfsC1eutvrIPOxGeSm amqfMNMaeSyxxkRwVf0ylL lgYGS9NAjuV1mpgG0nNzB7 WPsxV7tkxX8rVHm5BKbycL L7WBTyoK3tPU5ypmibq6aa KEO9WEnfAANftoG1knMwKS VqwDZiW0KpfV04NtFjxIPc D8YkiB3zOWtnDCAuynk0Av UvZa0wmMUroIQ3FFtqXphy YWdlXHBnbmNvbnRccGduZG VjXHBsYWluXHBsYWluXGYw YJIlHrHgo2UrYFSgo9ajBb Sef9vkoGi1SRgytVbtgGTs blxmMFxmczIwXHBsYWluXG DhEOBbYhBbC4ToP1biGA0d QSBpcyByZWNlaXZlZCBpbi Icy0IyNNkzdsNgPJQxuDcc ANS3zAXnFRCcQGQdSXUtZW 50XHBsYWluXGYxXGZzMjBc fOunZTowOKs0LsfvzRDdkq xmMVxmczIwIHMgbmFtZSwg VUggbnVtYmVyICJhcHBlbm RpeFxwbGFpblxmMVxmczIw XDE0OuWyRXrwGQEckIrukE 7fZiOdOzSeYPZaIP3pVVCy lvAfo3TySE3gJICvxJodpn 40YS1adlSkxFxdj6YiNYAr nMPgVVc8CVj0HqkiF78yeC 3suJFtR5UvOUatJS50RGWi OCBjbSBpbiBkaWFtZXRlci jil3p9rTEaqETpG9mgDRM2 EStjg8nyiJ5poKcuyGGhAM Wuj8E3jQMbCEXzTODiQCXf GA4wjWuiALSlAEP6PDWfVP E5KHJcPJKpsNahAONWbQIy WVBtWS3itWeyj9Wxw3KjDC nbe6RmVEBxrrM5lVPkXJZ3 fDTwbPApZCDxxwFnmHL3pK VudCBleHVkYXRlLiBUaGUg OSCpSE3beRfppYUyp2PziS BwsXauz6ViePmovtNvSKTp IHJldmVhbCBhIHBhdGVudC MeoX4rspaplwZjD9mcIkHr wl9sTWAyyyDevI59QKPmBR IcHkNfnWlhE54bjSEbxgfu SlCtC7NftDDeEC4awpIwWL dlLiAgVGhlIHdhbGwgdGhp F1dxNDXsNSYvjwigwfUcig 6sZEGuKI8pLvHvT53tDRFg cnVwdHVyZSBzaXRlIGlzIG uhe9XdlRtsxGKkgiSgIwxv QRrtIW0sPINiGBJwh61zrM cqDC06B09pYSqenuJzLVE1 mF1pQC4fmlvbdp9tJtUnoy AkAG41VNQshrQwa3LnrOgu qcAbk3olG3cwxK2odAZySB Fuuk4abfVgGFZ4hG1ghliq pKzfZHVtdDBzgA1nIFSckj JvQQV1iQ6aSU3jixssnqRj bmQgZGlzdGFsIHRpcCBhcm Wnc5RlfFr7jEPlRTfbFFGd LUEyLlxwYXJccGFyZFxwbG FpblxmMFxmczIwXHBsYWlu XGYxXGZzMjAgSnVsaWUgTW YMyDjajlJ6JSEPGHgkTPT6 Embedded Images (test code = 8673193031) [facility] GLUCOSE (AUTOMATED)2019-11-05 22:19:00 Test Item Value Reference Range Interpretation Comments POCT GLU (test code = 6472111271) 115 mg/dL 70-110 H Lab Interpretation (test code = Abnormal 40259-5) [facility] GLUCOSE (AUTOMATED)2019-11-05 18:23:00 Test Item Value Reference Range Interpretation Comments POCT GLU (test code = 7710497980) 197 mg/dL 70-110 H Lab Interpretation (test code = Abnormal 94430-4) [facility] GLUCOSE (AUTOMATED)2019-11-05 17:33:00 Test Item Value Reference Range Interpretation Comments POCT GLU (test code = 6245045193) 125 mg/dL 70-110 H Lab Interpretation (test code = Abnormal 85925-1) [facility] GLUCOSE (AUTOMATED)2019-11-05 13:28:00 Test Item Value Reference Range Interpretation Comments POCT GLU (test code = 4999813110) 130 mg/dL 70-110 H Lab Interpretation (test code = Abnormal 39064-1) [facility] METABOLIC PANEL (NA, K, CL, CO2, GLUCOSE, BUN, CREATININE, CA)2019-11-05 12:11:00 Test Item Value Reference Range Interpretation Comments NA (test code = 137 mmol/L 135-145 4668231062) K (test code = 3.6 mmol/L 3.5-5 3773208087) CL (test code = 100 mmol/L 98-108 6683027170) CO2 TOTAL (test code = 30 mmol/L 23-31 5260228369) AGAP (test code = 2-16 3693945031) BUN (test code = 14 mg/dL 7-23 3118362852) GLUCOSE (test code = 164 mg/dL 70-110 H 6457740753) CREATININE (test code = 0.81 mg/dL 0.6-1.25 1115684304) CALCIUM (test code = 8.6 mg/dL 8.6-10.6 4318551189) eGFR Calculation mL/min/1.73m2 (Non-) (test code = 0615400058) eGFR Calculation mL/min/1.73m2 () (test code = 9276036910) KATE (test code = KATE) Association of [...] tests). Lab Interpretation Abnormal (test code = 95837-7) [facility] WITH [id number] 11:39:00 Test Item Value Reference Range Interpretation [...] RDW-SD (test code = 38.7 fL 38.5-51.6 98335-0) RDW-CV (test code = 13.0 % 12.1-15.4 788-0) PLT (test code = See_Comment [Automated 777-3) message] The sy stem which generated this result transmitted reference range : 150 - 328 10*3/ ?L. The reference r jevon was not used to interpret this result as normal/abnormal . MPV (test code = 11.5 fL 9.8-13 76334-3) NRBC/100 WBC (test See_Comment [Automat ed code = 1249268433) message] The system which generated this result transmitted reference range : 0.0 - 10.0 /100 WBCs. The refer ence range was not u sed to interpret th is result as normal/abnormal . NRBC x10^3 (test code <0.01 See_Comment [Auto mated = 2281187304) message] The s ystem which generated this result transmitted reference range : 10*3/?L. The reference range was not used to interpret this result as normal/abnormal . GRAN MAT (NEUT) % 83.5 % (test code = 770-8) IMM GRAN % (test code 0.30 % = 8129774582) LYMPH % (test code = 9.3 % 736-9) MONO % (test code = 5.7 % 5905-5) EOS % (test code = 1.1 % 713-8) BASO % (test code = 0.1 % 706-2) GRAN MAT x10^3(ANC) 7.74 10*3/uL 1.99-6.95 H (test code = 5264347940) IMM GRAN x10^3 (test 0.03 10*3/uL 0-0.06 code = 7177073950) LYMPH x10^3 (test code 0.86 10*3/uL 1.09-3.23 L = 731-0) MONO x10^3 (test code 0.53 10*3/uL 0.36-1.02 = 742-7) EOS x10^3 (test code = 0.10 10*3/uL 0.06-0.53 711-2) BASO x10^3 (test code <0.03 0.01-0.09 = 704-7) Lab Interpretation Abnormal (test code = 58334-9) [facility] GLUCOSE (AUTOMATED)2019-11-05 10:22:00 Test Item Value Reference Range Interpretation Comments POCT GLU (test code = 3844526312) 149 mg/dL 70-110 H Lab Interpretation (test code = Abnormal 23500-9) [facility] GLUCOSE (AUTOMATED)2019-11-05 06:15:00 Test Item Value Reference Range Interpretation Comments POCT GLU (test code = 4268203598) 204 mg/dL 70-110 H Lab Interpretation (test code = Abnormal 77042-7) [facility] GLUCOSE (AUTOMATED)2019-11-05 01:48:00 Test Item Value Reference Range Interpretation Comments POCT GLU (test code = 4954988702) 227 mg/dL 70-110 H Lab Interpretation (test code = Abnormal 14200-7) [facility] GLUCOSE (AUTOMATED)2019-11-04 22:30:00 Test Item Value Reference Range Interpretation Comments POCT GLU (test code = 3281943800) 132 mg/dL 70-110 H Lab Interpretation (test code = Abnormal 41650-3) [facility] GLUCOSE (AUTOMATED)2019-11-04 17:24:00 Test Item Value Reference Range Interpretation Comments POCT GLU (test code = 4502919999) 213 mg/dL 70-110 H Lab Interpretation (test code = Abnormal 71672-8) [facility] GLUCOSE (AUTOMATED)2019-11-04 13:31:00 Test Item Value Reference Range Interpretation Comments POCT GLU (test code = 1252002593) 203 mg/dL 70-110 H Lab Interpretation (test code = Abnormal 25720-0) [facility] GLUCOSE (AUTOMATED)2019-11-04 12:03:00 Test Item Value Reference Range Interpretation Comments POCT GLU (test code = 2265221359) 213 mg/dL 70-110 H Lab Interpretation (test code = Abnormal 93904-5) [facility]A1C)2019-11-03 23:50:00 Test Item [...] Indicated Lab Interpretation Abnormal (test code = 56683-5) [facility] GLUCOSE (AUTOMATED)2019-11-03 23:28:00 Test Item Value Reference Range Interpretation Comments POCT GLU (test code = 1621403615) 273 mg/dL 70-110 H Lab Interpretation (test code = Abnormal 06033-1) [facility]EN PELVIS W [id number] 18:01:52CT Abdomen and Pelvis with intravenous contrast. [...] Rhoades in the emergency room at 12:00. [facility], Radiant Results Inft User - 11/03/2019 [...] Dr. Rhoades in the emergency room at 12:00.[facility] [id number] 16:23:00 Test Item Value Reference Range Interpretation Comments APPEARANCE (test code = Clear Clear 8509419409) COLOR (test code = Yellow Yellow 1405525283) PH (test code = 4.8-8.0 5291312482) SP GRAVITY (test code = 1.003-1.030 2849889892) GLU U QUAL (test code = 500 mg/dL Normal A 7172552369) BLOOD (test code = Negative Negative 2473623220) KETONES (test code = Negative Negative 4290863144) PROTEIN (test code = Negative Negative 2887-8) UROBILIN (test code = Normal Normal 4017762919) BILIRUBIN (test code = Negative Negative 2411408433) NITRITE (test code = Negative Negative 8788523572) LEUK BIANCA (test code = Negative Negative 4172844213) RBC/HPF (test code = See_Comment [Autom ated message] 9515434983) The system [employer] generated this result transmit yelena reference range : 0 - 3 HPF. The refe rence range was not u sed to interpret th is result as normal/abnormal . WBC/HPF (test code = See_Comment [Autom ated message] 5480022702) The system [employer] generated this result transmit yelena reference range : 0 - 5 HPF. The refe rence range was not u sed to interpret th is result as normal/abnormal . BACTERIA (test code = Negative Negative 8529070846) MUCOUS (test code = Slight Negative LPF A 2447002115) SQ EPITH (test code = <1 HPF 2551041446) Lab Interpretation (test Abnormal code = 37662-3) [facility]OLIC PANEL (93879)2019-11-03 16:04:00 Test Item Value Reference Range Interpretation Comments NA (test code = 137 mmol/L 135-145 8105380630) K (test code = 4.3 mmol/L 3.5-5 0796069942) CL (test code = 98 mmol/L 98-108 3275981446) CO2 TOTAL (test code = 28 mmol/L 23-31 6158360899) AGAP (test code = 2-16 0236837630) BUN (test code = 11 mg/dL 7-23 7096147510) GLUCOSE (test code = 356 mg/dL 70-110 H 7123168155) CREATININE (test code = 1.01 mg/dL 0.6-1.25 4313553222) TOTAL BILI (test code = 0.9 mg/dL 0.1-1.3 5467967389) CALCIUM (test code = 9.1 mg/dL 8.6-10.6 4508732333) T PROTEIN (test code = 7.5 g/dL 6.3-8.2 0020222064) ALBUMIN (test code = 4.7 g/dL 3.5-5 9187511136) ALK PHOS (test code = 73 U/L 34-122 7614120649) ALTv (test code = 38 U/L 5-50 1742-6) AST(SGOT) (test code = 25 U/L 13-40 0831803971) eGFR Calculation mL/min/1.73m2 (Non-) (test code = 8569042966) eGFR Calculation mL/min/1.73m2 () (test code = 2493134358) KATE (test code = KATE) Association of [...] tests). Lab Interpretation Abnormal (test code = 23176-8) [facility]2020-[facility] 16:03:00 Test Item Value Reference Range Interpretation Comments LIPASE (test code = 5055586420) 48 U/L 0-220 Lab Interpretation (test code = Normal 58390-3) [facility] WITH [id number] 15:51:00 Test Item Value Reference Range Interpretation Comments WBC (test code = See_Comment H [Automated 6690-2) message] The system which generated this result transmit yelena reference range : 4.20 - 10.70 10*3/?L. The reference range was not used to interpret this result as normal/abnormal . RBC (test code = See_Comment H [Automated 369-8) message] The system which generated this result [...] (test code = 37.8 fL 38.5-51.6 L 16357-2) RDW-CV (test code = 12.7 % 12.1-15.4 788-0) PLT (test code = See_Comment [Automated 777-3) message] The system which generated this result transmit yelena reference range : 150 - 328 10*3/ ?L. The reference range was not u sed to interpret th is result as normal/abnormal . MPV (test code = 10.9 fL 9.8-13 94864-5) NRBC/100 WBC (test See_Comment [Automat ed code = 5082210373) message] The system which generated this result transmit yelena reference range : 0.0 - 10.0 /100 WBCs. The reference range was not used to interpret this result as normal/abnormal . NRBC x10^3 (test code <0.01 See_Comment [Auto mated = 1442667977) message] The system which generated this result transmit yelena reference range : 10*3/?L. The reference range was not used to interpret this result as normal/abnormal . GRAN MAT (NEUT) % 91.5 % (test code = 770-8) IMM GRAN % (test code 0.50 % = 2908262785) LYMPH % (test code = 3.9 % 736-9) MONO % (test code = 3.8 % 5905-5) EOS % (test code = 0.1 % 713-8) BASO % (test code = 0.2 % 706-2) GRAN MAT x10^3(ANC) 12.89 10*3/uL 1.99-6.95 H (test code = 9132983633) IMM GRAN x10^3 (test 0.07 10*3/uL 0-0.06 H code = 7944576466) LYMPH x10^3 (test code 0.55 10*3/uL 1.09-3.23 L = 731-0) MONO x10^3 (test code 0.54 10*3/uL 0.36-1.02 = 742-7) EOS x10^3 (test code = <0.03 0.06-0.53 L 711-2) BASO x10^3 (test code 0.03 10*3/uL 0.01-0.09 = 704-7) Lab Interpretation Abnormal (test code = 53953-7) [facility]"
[2022-11-24] MEDS ORDERED: KETAMINE HCL 500 MG/5 ML VIAL ONE (20:13)
[2022-11-24] MEDS ORDERED: HALOPERIDOL LACT 5 MG/ML INJ ONE (20:13)
[2022-11-24] MEDS ORDERED: KETOROLAC 30 MG/ML INJ ONE (20:13)
[2022-11-24] MEDS ORDERED: NA CHLORIDE 0.9% 100 ML ONE (20:13)
[2022-11-24] MEDS ORDERED: NA CHLORIDE 0.9% 1,000 ML ONE (20:24)
[2022-11-24 22:02] VITALS: TEMP 98.2
[2022-11-24 22:06] VITALS: BP 134/76; O2SAT 96
--- NOTE | 2022-12-06 16:58 | ER ---
Nurse's Notes [facility] Name: Chente Minaya Age: 52 yrs Sex: Male : 1970 Arrival Date: 11/24/2022 Time: 16:54 Bed 5 Private MD: Diagnosis: Migraine without aura, not intractable Presentation: 11/24 17:20 Chief complaint: Patient states: I have had a headache x 3 days and dizziness since kr3 yesterday. I am also nauseous and took my last zofran last night. Coronavirus screen: Vaccine status: Patient reports being unvaccinated. Ebola Screen: Patient denies travel to an Ebola-affected area in the 21 days before illness onset. Initial Sepsis Screen: Does the patient meet any 2 criteria? No. Patient's initial sepsis screen is negative. Does the patient have a suspected source of infection? No. Patient's initial sepsis screen is negative. Risk Assessment: Do you want to hurt yourself or someone else? Patient reports no desire to harm self or others. Onset of symptoms was November 22, 2022. 17:20 Method Of Arrival: Ambulatory kr3 17:20 Acuity: GILDARDO 3 kr3 Triage Assessment: 17:25 General: Appears in no apparent distress. comfortable, Behavior is calm, cooperative, kr3 appropriate for age. Pain: Complains of pain in right side head. Historical: - Allergies: 17:23 Bactrim; kr3 17:23 mushroom; kr3 17:23 Mustard; kr3 17:23 PENICILLINS; kr3 17:23 Reglan; kr3 17:23 Sulfa (Sulfonamide Antibiotics); kr3 17:23 surgical steel; kr3 17:23 tramadol; kr3 17:23 Tylenol-Codeine #3; kr3 17:23 Tylenol-Codeine #4; kr3 - Home Meds: 17:23 anastrozole 1 mg Oral tab [Active]; levemir 30 units twice a day [Active]; tadalafil 20 kr3 mg Oral tab 1 tab once daily [Active]; Testosterpme injection Weekly [Active]; Zofran Oral [Active]; - PMHx: 17:23 diabetes mellitus; GERD; Migraine; kr3 - PSHx: 17:23 Appendectomy; kr3 - Immunization history:: Adult Immunizations up to date. - Social history:: Smoking status: Patient denies any tobacco usage or history of. Screenin:00 [facility] ED Fall Risk Assessment (Adult) Score/Fall Risk Level 0 - 2 = Low Risk. Abuse as6 screen: Denies threats or abuse. Denies injuries from another. Nutritional screening: No deficits noted. Tuberculosis screening: No symptoms or risk factors identified. Assessment: 20:23 General: Appears in no apparent distress. Behavior is calm, cooperative. Pain: as6 Complains of pain in head Quality of pain is described as aching. Neuro: Level of Consciousness is awake, alert, obeys commands, Oriented to person, place, time, situation, Reports dizziness, headache. Respiratory: Respiratory effort is even, unlabored. 21:09 Reassessment: Patient and/or family updated on plan of care and expected duration. Pain vc1 level reassessed. Patient is alert, oriented x 3, equal unlabored respirations, skin warm/dry/pink. Patient states feeling better. Patient states symptoms have improved. Vital Signs: 17:20 BP 140 / 87; Pulse 84; Resp 18; Temp 98.2(TE); Pulse Ox 100% on R/A; Weight 124.74 kg; kr3 Height 6 ft. 2 in. ; Pain 8/10; 20:23 BP 129 / 81; Pulse 84; Resp 18 S; Pulse Ox 95% on R/A; as6 21:00 BP 134 / 76; Pulse 75; Resp 20 S; Pulse Ox 96% on R/A; as6 17:20 Body Mass Index 35.31 (124.74 kg, 187.96 cm) kr3 17:20 Pain Scale: Adult kr3 ED Course: 16:54 Patient arrived in ED. mr 17:16 Robert Villalobos PA is PHCP. jmm 17:16 Man Pryor MD is Attending Physician. jmm 17:23 Triage completed. kr3 17:25 Arm band placed on left wrist. kr3 18:46 Inserted saline lock: 20 gauge in left antecubital area, using aseptic technique. ks8 20:07 Saurav Blount MD is Attending Physician. jmm 20:16 Brian Agudelo, CORA is Primary Nurse. as6 20:50 PHCP role handed off by Robert Villalobos PA snw 20:50 Brittany Campbell FNP-C is PHCP. snw 21:01 Bed in low position. Call light in reach. Side rails up X2. as6 21:01 No provider procedures requiring assistance completed. as6 21:10 IV discontinued, intact, bleeding controlled, No redness/swelling at site. Pressure vc1 dressing applied. Administered Medications: 20:16 Drug: Ketorolac IVP 30 mg Route: IVP; Site: right antecubital; as6 11/25 06:02 Follow up: Response: No adverse reaction as6 11/24 20:16 Drug: Haloperidol IVP 5 mg Route: IVP; Site: right antecubital; as6 11/25 06:02 Follow up: Response: No adverse reaction as6 11/24 20:16 Drug: Ketamine IVP 20 mg Route: IVP; Site: right antecubital; as6 11/25 06:02 Follow up: Response: No adverse reaction as6 11/24 20:22 Drug: NS 0.9% IV 1000 ml Route: IV; Rate: 1 bolus; Site: right antecubital; as6 11/25 06:02 Follow up: Response: No adverse reaction; IV Status: Completed infusion; IV Intake: as6 1000ml Medication: 11/24 21:01 VIS not applicable for this client. as6 Intake: 11/25 06:02 IV: 1000ml; Total: 1000ml. as6 Outcome: 11/24 20:55 Discharge ordered by . snw 21:09 Discharged to home ambulatory. vc1 21:09 Condition: good 21:09 Discharge instructions given to patient, Instructed on discharge instructions, follow up and referral plans. Demonstrated understanding of instructions, follow-up care. 21:10 Patient left the ED. vc1 Signatures: Brittany Campbell FNP-C SOUND RANGING CREWMEMBER-Csnw Robert Villalobos PA PA jmm Rivera, Mary mr Slawson, Ashby, RN RN as6 Eva Almaraz RN RN vc1 Susana Wiggins RN RN kr3 Dennis Acuña ks8
--- NOTE | 2022-12-06 16:58 | EDPHYS ---
Physician Documentation [facility] Name: Chente Minaya Age: 52 yrs Sex: Male : 1970 Arrival Date: 11/24/2022 Time: 16:54 Bed 5 Private MD: ED Physician Saurav Blount HPI: 11/24 17:54 This 52 yrs old Male presents to ER via Ambulatory with complaints of Nausea, Headache, jmm Dizziness. 17:54 Is a 52-year-old male with history of diabetes mellitus, migraines and presents emerged [facility] part with complaints of headache and migraine which is consistent with previous headaches. Patient states he has been nauseous and also vomiting. Denies fever.. Historical: - Allergies: 17:23 Bactrim; kr3 17:23 mushroom; kr3 17:23 Mustard; kr3 17:23 PENICILLINS; kr3 17:23 Reglan; kr3 17:23 Sulfa (Sulfonamide Antibiotics); kr3 17:23 surgical steel; kr3 17:23 tramadol; kr3 17:23 Tylenol-Codeine #3; kr3 17:23 Tylenol-Codeine #4; kr3 - Home Meds: 17:23 anastrozole 1 mg Oral tab [Active]; levemir 30 units twice a day [Active]; tadalafil 20 kr3 mg Oral tab 1 tab once daily [Active]; Testosterpme injection Weekly [Active]; Zofran Oral [Active]; - PMHx: 17:23 diabetes mellitus; GERD; Migraine; kr3 - PSHx: 17:23 Appendectomy; kr3 - Immunization history:: Adult Immunizations up to date. - Social history:: Smoking status: Patient denies any tobacco usage or history of. ROS: 17:54 Constitutional: Negative for fever, chills, and weight loss, Cardiovascular: Negative jm for chest pain, palpitations, and edema, Respiratory: Negative for shortness of breath, cough, wheezing, and pleuritic chest pain. 17:54 Neuro: Positive for headache. 17:54 All other systems are negative. Exam: 17:54 Constitutional: This is a well developed, well nourished patient who is awake, alert, jmm and in no acute distress. Head/Face: atraumatic. Eyes: EOMI, no conjunctival erythema appreciated ENT: Moist Mucus Membranes Neck: Trachea midline, Supple Chest/axilla: Normal chest wall appearance and motion. Cardiovascular: Regular rate and rhythm. No edema appreciated Respiratory: Normal respirations, no respiratory distress appreciated Abdomen/GI: Non distended Back: Normal ROM Skin: General appearance color normal MS/ Extremity: Moves all extremities, no obvious deformities appreciated, no edema noted to the lower extremities Neuro: Awake and alert Psych: Behavior is normal, Mood is normal, Patient is cooperative and pleasant Vital Signs: 17:20 BP 140 / 87; Pulse 84; Resp 18; Temp 98.2(TE); Pulse Ox 100% on R/A; Weight 124.74 kg; kr3 Height 6 ft. 2 in. ; Pain 8/10; 20:23 BP 129 / 81; Pulse 84; Resp 18 S; Pulse Ox 95% on R/A; as6 21:00 BP 134 / 76; Pulse 75; Resp 20 S; Pulse Ox 96% on R/A; as6 17:20 Body Mass Index 35.31 (124.74 kg, 187.96 cm) kr3 17:20 Pain Scale: Adult kr3 MDM: 17:54 Patient medically screened. [facility] 20:59 Differential diagnosis: migraine, hyperglycemia. snw 21:00 Data reviewed: vital signs, nurses notes. I considered the following discharge snw prescriptions or medication management in the emergency department Medications were administered in the Emergency Department. See MAR. Counseling: I had a detailed discussion with the patient and/or guardian regarding: the historical points, exam findings, and any diagnostic results supporting the discharge/admit diagnosis, the need for outpatient follow up, for definitive care, to return to the emergency department if symptoms worsen or persist or if there are any questions or concerns that arise at home. Special discussion: Based on the history and exam findings, there is no indication for further emergent testing or inpatient evaluation. I discussed with the patient/guardian the need to see the neurologist for further evaluation of the symptoms. I discussed with the patient/guardian the need to see the primary care provider for further evaluation of the symptoms. 11/24 17:54 Order name: Saline Lock; Complete Time: 18:44 [facility] Administered Medications: 20:16 Drug: Ketorolac IVP 30 mg Route: IVP; Site: right antecubital; as11/25 06:02 Follow up: Response: No adverse reaction 11/24 20:16 Drug: Haloperidol IVP 5 mg Route: IVP; Site: right antecubital; 11/25 06:02 Follow up: Response: No adverse reaction 11/24 20:16 Drug: Ketamine IVP 20 mg Route: IVP; Site: right antecubital; 11/25 06:02 Follow up: Response: No adverse reaction 11/24 20:22 Drug: NS 0.9% IV 1000 ml Route: IV; Rate: 1 bolus; Site: right antecubital; 11/25 06:02 Follow up: Response: No adverse reaction; IV Status: Completed infusion; IV Intake: as6 1000ml Disposition: 11/24 19:10 Co-signature as Attending Physician, Man Pryor MD I reviewed the patient's care rt provided by the Advanced Practice Provider and agree with the diagnosis and treatment plan. Disposition Summary: 11/24/22 20:55 Discharge Ordered Location: Home snw Condition: Stable snw Diagnosis - Migraine without aura, not intractable snw Followup: jmm - With: Private Physician - When: 1 - 2 days - Reason: Recheck today's complaints, Continuance of care, Re-evaluation by your physician Discharge Instructions: - Discharge Summary Sheet jm - Migraine Headache [facility] Forms: - Medication Reconciliation Form snw - Thank You Letter snw - Antibiotic Education snw - Prescription Opioid Use snw Signatures: Brittany Campbell FNP-C TOOL PLANER SET UP OPERATOR-Csnw Robert Villalobos PA PA jmm Slawson, Ashby, RN RN as6 Susana Wiggins RN RN kr3 Man Pryor MD MD rt
== END 2022-11-24 21:10 | disposition home or self-care (01) ==
LOC: ER 16:51
DX: G43.009 Migraine without aura, not intractable, without status migrainosus (principal); E11.9 Type 2 diabetes mellitus without complications; Z88.0 Allergy status to penicillin; Z88.1 Allergy status to other antibiotic agents; Z88.2 Allergy status to sulfonamides; Z88.5 Allergy status to narcotic agent; Z88.8 Allergy status to other drugs, medicaments and biological substances; Z91.048 Other nonmedicinal substance allergy status
CPT/HCPCS: 96361; 96375; 96374; 99283; J1630; J7030

== ENCOUNTER 2023-04-20 17:47 | Emergency (ER) | payer OTHER ==
--- OUTSIDE RECORDS SUMMARY | 2023-04-20 17:52 | XMS REPORT | Continuity of Care Document ---
:1970 Author Organization [facility] t Address [address] [place] [address] [address] [place] [address] Care Team Providers Name Role Phone PCP, PATIENT DOES NOT HAVE A Primary Care Physician UnavailAdam Sheth PA-C Attending Clinician ADAM SERVIN Attending Clinician Unavailable Doctor Unassigned, [place] Attending Clinician Unavailable YADIEL HAQ Attending Clinician Unavailable Yadiel Haq MD Attending Clinician DAVID NOVOA Attending Clinician Unavailable ALEXIS DAWN Attending Clinician Unavailable Alexis Dawn MD Attending Clinician STEPHANIE ONEAL Attending Clinician Unavailable Stephanie Adamson Attending Clinician SILVINA SUN Attending Clinician Unavailable Norberto Bernal [...] Type Policy Number Effective Date Expiration Date S ource Problems Condition Condition Condition Status Onset Resolution Last Treating Co mments Source Name Details Category Date Date Treatment Clinician Date Abdominal Abdominal Disease Active Uni vers pain pain 2-20 ity of 00:00: [place] [facility] Obesity Obesity Disease Active Univers [...] ics) s Branch Sulfa Propensi Active Hives Univers (Sulfona [...] 8-10 ity of adverse 00:00: [place] reaction Medical s Branch Sulfa Propensi Active Hives Univers Dyne ty to 8-10 ity of adverse 00:00: [place] reaction 00 Medical s Branch Social History Social Habit Start Date Stop Date Quantity Comments Source History of tobacco Current smoker Un iversity of use [facility] Gender identity Universit y of [facility] Sexual orientation Univer sity of [facility] Exposure to 2022-07-02 2022-07-12 Not sure University of SARS-CoV-2 (event) 00:00:00 20:23:00 [facility] Alcohol intake 2022-07-12 2022-07-12 Current drinker Unive rsity of 00:00:00 00:00:00 of alcohol [facility] (finding) Branch History of Social 2020-04-06 2020-04-06 Univers ity of function 00:00:00 00:00:00 [facility] History SDOH 2019-11-04 2019-11-04 5 University o f Financial 00:00:00 00:00:00 [facility] Tobacco use and 2019-11-03 2019-11-03 Smokeless Universit y of exposure 00:00:00 00:00:00 tobacco non-user [facility] Sex Ass[birth year] At [birth year] Universit y of 00:00:00 00:00:00 [facility] Smoking Status Start Date Stop Date Source Ex-smoker 2019-11-03 00:00:00 2019-11-03 00:00:00 [facility] Medications Ordered Filled Start Stop Current Ordering Indication Dosage Frequency Signature Comments Components Source Medication Medication Date Date Medication? Clinician (SIG) Name Name ketorolac 2021-09 No 30mg 30 mg, Unive rs (TORADOL) 0-29 10-29 Slow IV ity of injection 03:15: 02:09 Push, [place] 30 mg 00 :00 ONCE, 1 Medical dose, On Branch 07/12/22 at 2215, Routine FENTanyl PF 2021-09- No 50ug 50 mcg, Un grabiel (SUBLIMAZE 0- 10-29 Intravenou it y of (PF)) 03:00: 02:09 s, ONCE, 1 [place] injection 00 :00 dose, On Medica l 50 mcg Fri Branch 07/12/22 at 2200, Routine NaCl 0.9% 2021-09- No 1000mL at 999 Uni vers (NS) bolus 0-29 10-29 mL/hr, ity of infusion 02:15: 02:40 1,000 mL, Danie as 1,000 mL 00 :00 IV Medical Infusion, Branch ONCE, 1 dose, On 07/12/22 at 2115, STAT ketorolac 2021-09- No 30mg 30 mg, Unive rs (TORADOL) 0-23 10-23 Slow IV ity of injection 03:30: 02:44 Push, [place] 30 mg 00 :00 ONCE, 1 Medical dose, On Branch 07/06/22 at 2230, Routine NaCl 0.9% 2021-09- No 500mL at 999 Univ ers (NS) bolus 0-23 10-23 mL/hr, 500 it y of infusion 02:30: 03:17 mL, IV [place] 500 mL 00 :00 Infusion, Medical ONCE, 1 Branch dose, On 07/06/22 at 2130, STAT metoclopram 2021-09- No 10mg 10 mg, Uni vers kevin HCl 0-23 10-23 Slow IV ity of (REGLAN) 02:30: 02:45 Push, [place] injection 00 :00 ONCE, 1 Medical 10 mg dose, On Branch 07/06/22 at 2130, MANDEEP diphenhydrA 2021-09 No 25mg 25 mg, Uni vers MINE 007-07 Slow IV ity of (BENADRYL) 02:30: 02:43 [...] SC) (two) Branch times daily. NaCl 0.9% 2021-09 No 1000mL at 999 Uni vers (NS) bolus 0-07 10-07 mL/hr, ity of infusion 18:15: 18:52 1,000 mL, [place] 1,000 mL 00 :00 IV Medical Infusion, Branch ONCE, 1 dose, On Fri06/21/22 at 1315, STAT ondansetron 2021-09- No 4mg 4 mg, Slow Univers (ZOFRAN 06-21 IV Push, ity of (PF)) 17:15: 17:19 ONCE, 1 [place] injection 4 00 :00 dose, On Medi kyrie mg Fri Branch 06/21/22 at 1215, MANDEEP ketorolac 2021-09- No 30mg 30 mg, Unive rs (TORADOL) 006-21 Intramuscu ity of injection 17:15: 17:20 lar, ONCE, [place] 30 mg 00 :00 1 dose, On Medical Fri Branch 06/21/22 at 1215, MANDEEP divalproex 2020-0 Yes [id number] 250mg Take 1 Univers ER 250 mg 8-10 tablet by ity o f 24 hr 00:00: mouth 2 [place] tablet 00 (two) Medical times Branch daily. divalproex 2020-0 Yes [id number] 250mg Take 1 Univers ER 250 mg 8-10 tablet by ity o f 24 hr 00:00: mouth 2 [place] tablet 00 (two) Medical times Branch daily. divalproex 2020-0 Yes [id number] 250mg Take 1 Univers ER 250 mg 8-10 tablet by ity o f 24 hr 00:00: mouth 2 [place] tablet 00 (two) Medical times Branch daily. divalproex 2020-0 Yes [id number] 250mg Take 1 Univers ER 250 mg 8-10 tablet by ity o f 24 hr 00:00: mouth 2 [place] tablet 00 (two) Medical times Branch daily. divalproex 2020-0 Yes [id number] 250mg Take 1 Univers ER 250 mg 8-10 tablet by ity o f 24 hr 00:00: mouth 2 [place] tablet 00 (two) Medical times Branch daily. divalproex 2020-0 Yes [id number] 250mg Take 1 Univers ER 250 mg 8-10 tablet by ity o f 24 hr 00:00: mouth 2 [place] tablet 00 (two) Medical times Branch daily. divalproex 2020-0 Yes [id number] 250mg Take 1 Univers ER 250 mg 8-10 tablet by ity o f 24 hr 00:00: mouth 2 [place] tablet 00 (two) Medical times Branch daily. divalproex 2020-0 Yes [id number] 250mg Take 1 Univers ER 250 mg 8-10 tablet by ity o f 24 hr 00:00: mouth 2 [place] tablet 00 (two) Medical times [place] daily. divalproex 2020-0 Yes [id number] 250mg Take 1 Univers ER 250 mg 8-10 tablet by ity o f 24 hr 00:00: mouth 2 [place] tablet 00 (two) Medical times [place] daily. water for 2020-0 Yes PRN, Univers irrigation 04-07 Starting ity o f irrigation 03:19: Angelina [place] solution 00 04/06/20 at Medic al 2219, Branch Until Discontinu ed, Routine, Intra-op simethicone 2020-0 Yes PRN, Univer s (GAS RELIEF 24 Starting ity of (SIMETHICON 03:19: Angelina [place] E)) 40 00 04/06/20 at Medical mg/0.6 mL 2218, [place] drops Until Discontinu ed, Routine, Intra-op glucagon [...] 1,000 mL 00 :00 IV Medical Infusion, [place] ONCE, 1 dose, 02/19/20 at 1800, STAT morpHINE 2020-0 2020- No 4mg 4 mg, Slow Un grabiel injection 4 02-18 IV Push, ity of mg 23:00: 22:01 ONCE, 1 [place] 00 :00 dose, Sat Medical 02/19/20 at Branch 1800, STAT insulin 2019- No 10U 10 Units, Univ ers regular 02-18 Subcutaneo ity o f human 22:45: 21:54 us, ONCE, [place] (HUMULIN R) 00 :00 1 dose, Medic al injection 02/19/20 Bran ch 10 Units at 1745, STAT NaCl 0.9% 2019- No 1000mL at 999 Uni vers (NS) bolus 02-18 mL/hr, ity of infusion 21:45: 23:27 1,000 mL, [place]ie as 1,000 mL 00 :00 IV Medical Infusion, [place] ONCE, 1 dose, 02/19/20 at 1645, STAT ondansetron 2019- No 4mg 4 mg, Slow Univers (ZOFRAN 02-18 IV Push, ity of (PF)) 21:45: 20:51 ONCE, 1 [place] injection 4 00 :00 dose, Sat Med ical mg 02/19/20 at Branch 1645, MANDEEP FENTanyl PF 2019- No 25ug 25 mcg, Un grabiel (SUBLIMAZE 02-18 Slow IV ity o f (PF)) 21:45: 20:50 Push, [place] injection 00 :00 ONCE, 1 Medical 25 mcg dose, Sat Branch 02/19/20 at 1645, STAT clindamycin 2019- No 900mg 900 mg, IV Univers in 5 % 02-18 Piggyback, ity of dextrose 21:45: 21:21 ONCE, 1 [place] (CLEOCIN) 00 :00 dose, Sat Medic al 900 mg/50 02/19/20 at Branc h mL IV 1645, 50 piggyback mL
Reas RTU 900 mg on for Anti-Infec tive: Documented Infection< br>Documen yelena Infection Site: Skin / Soft Tissue
Duration of Therapy: Other (see Comments)< br>Restric yelena use approved by: ADC PROVIDER acetaminoph 2019- No 1000mg 1,000 mg, Univers en 6-06 06-06 Oral, ity of (TYLENOL) 21:30: 20:30 ONCE, 1 [place] tablet 00 :[place] dose, Sat Medical 1,000 mg 02/19/20 at Branch 1630, MANDEEP traMADol 50 2020-0 Yes [id number] 50mg Take 1 Univers mg tablet 6-06 tablet by ity o f 00:00: mouth [place] 00 every 6 Medical (six) Branch hours as needed for Pain (scale 4-6). traMADol 50 2020-0 Yes [id number] 50mg Take 1 Univers mg tablet 6-06 tablet by ity o f 00:00: mouth [place] 00 every 6 Medical (six) Branch hours as needed for Pain (scale 4-6). traMADol 50 2020-0 Yes [id number] 50mg Take 1 Univers mg tablet 6-06 tablet by ity o f 00:00: mouth [place] 00 every 6 Medical (six) Branch hours as needed for Pain (scale 4-6). traMADol 50 2020-0 Yes [id number] 50mg Take 1 Univers mg tablet 6-06 tablet by ity o f 00:00: mouth [place] 00 every 6 Medical (six) Branch hours as needed for Pain (scale 4-6). traMADol 50 2020-0 Yes [id number] 50mg Take 1 Univers mg tablet 6-06 tablet by ity o f 00:00: mouth [place] 00 every 6 Medical (six) Branch hours as needed for Pain (scale 4-6). traMADol 50 2020-0 Yes [id number] 50mg Take 1 Univers mg tablet 6-06 tablet by ity o f 00:00: mouth [place] 00 every 6 Medical (six) Branch hours as needed for Pain (scale 4-6). traMADol 50 2020-0 Yes [id number] 50mg Take 1 Univers mg tablet 6-06 tablet by ity o f 00:00: mouth [place] 00 every 6 Medical (six) Branch hours as needed for Pain (scale 4-6). traMADol 50 2020-0 Yes [id number] 50mg Take 1 Univers mg tablet 6-06 tablet by ity o f 00:00: mouth [place] 00 every 6 Medical (six) Branch hours as needed for Pain (scale 4-6). traMADol 50 2020-0 Yes [id number] 50mg Take 1 Univers mg tablet 6-06 tablet by ity o f 00:00: mouth [place] 00 every 6 Medical (six) Branch hours as needed for Pain (scale 4-6). traMADol 50 2020-0 Yes [id number] 50mg Take 1 Univers mg tablet 6-06 tablet by ity o f 00:00: mouth [place] 00 every 6 Medical (six) Branch hours as needed for Pain (scale 4-6). traMADol 50 2020-0 Yes [id number] 50mg Take 1 Univers mg tablet 6-06 tablet by ity o f 00:00: mouth [place] 00 every 6 Medical (six) Branch hours as needed for Pain (scale 4-6). traMADol 50 2020-0 Yes [id number] 50mg Take 1 Univers mg tablet 6-06 tablet by ity o f 00:00: mouth [place] 00 every 6 Medical (six) Branch hours as needed for Pain (scale 4-6). traMADol 50 2020-0 Yes [id number] 50mg Take 1 Univers mg tablet 6-06 tablet by ity o f 00:00: mouth [place] 00 every 6 Medical (six) Branch hours as needed for Pain (scale 4-6). clindamycin 2019-0 2020- No [id number] 450mg Take 3 Univers 150 mg 6- 06-17 capsules ity of capsule 00:00: 04:59 by mouth 3 [place] 00 :00 (three) Medical times Branch daily for 10 days. glipiZIDE 2020-0 Yes [id number] 10mg Take 1 Un grabiel 10 mg 2-22 tablet by ity of tablet 00:00: mouth 2 [place] 00 (two) Medical times Branch daily before breakfast and dinner. HYDROcodone 2020-0 Yes [id number] 1{tbl} Take 1 Univers -acetaminop 2-22 tablet by ity of hen 5-325 00:00: mouth [place] mg tablet 00 every 6 Medical (six) Branch hours as needed for Pain (scale 7-10). glipiZIDE 2020-0 Yes [id number] 10mg Take 1 Un grabiel 10 mg 2-22 tablet by ity of tablet 00:00: mouth 2 [place] 00 (two) Medical times Branch daily before breakfast and dinner. HYDROcodone 2020-0 Yes [id number] 1{tbl} Take 1 Univers -acetaminop 2-22 tablet by ity of hen 5-325 00:00: mouth [place] mg tablet 00 every 6 Medical (six) Branch hours as needed for Pain (scale 7-10). glipiZIDE 2020-0 Yes [id number] 10mg Take 1 Un grabiel 10 mg 2-22 tablet by ity of tablet 00:00: mouth 2 [place] 00 (two) Medical times Branch daily before breakfast and dinner. HYDROcodone 2020-0 Yes [id number] 1{tbl} Take 1 Univers -acetaminop 2-22 tablet by ity of hen 5-325 00:00: mouth [place] mg tablet 00 every 6 Medical (six) Branch hours as needed for Pain (scale 7-10). glipiZIDE 2020-0 Yes [id number] 10mg Take 1 Un grabiel 10 mg 2-22 tablet by ity of tablet 00:00: mouth 2 [place] 00 (two) Medical times Branch daily before breakfast and dinner. HYDROcodone 2020-0 Yes [id number] 1{tbl} Take 1 Univers -acetaminop 2-22 tablet by ity of hen 5-325 00:00: mouth [place] mg tablet 00 every 6 Medical (six) Branch hours as needed for Pain (scale 7-10). glipiZIDE 2020-0 Yes [id number] 10mg Take 1 Un grabiel 10 mg 2-22 tablet by ity of tablet 00:00: mouth 2 [place] 00 (two) Medical times Branch daily before breakfast and dinner. HYDROcodone 2020-0 Yes [id number] 1{tbl} Take 1 Univers -acetaminop 2-22 tablet by ity of hen 5-325 00:00: mouth [place] mg tablet 00 every 6 Medical (six) Branch hours as needed for Pain (scale 7-10). glipiZIDE 2020-0 Yes [id number] 10mg Take 1 Un grabiel 10 mg 2-22 tablet by ity of tablet 00:00: mouth 2 [place] 00 (two) Medical times Branch daily before breakfast and dinner. HYDROcodone 2020-0 Yes [id number] 1{tbl} Take 1 Univers -acetaminop 2-22 tablet by ity of hen 5-325 00:00: mouth [place] mg tablet 00 every 6 Medical (six) Branch hours as needed for Pain (scale 7-10). glipiZIDE 2020-0 Yes [id number] 10mg Take 1 Un grabiel 10 mg 2-22 tablet by ity of tablet 00:00: mouth 2 [place] 00 (two) Medical times Branch daily before breakfast and dinner. HYDROcodone 2020-0 Yes [id number] 1{tbl} Take 1 Univers -acetaminop 2-22 tablet by ity of hen 5-325 00:00: mouth [place] mg tablet 00 every 6 Medical (six) Branch hours as needed for Pain (scale 7-10). glipiZIDE 2020-0 Yes [id number] 10mg Take 1 Un grabiel 10 mg 2-22 tablet by ity of tablet 00:00: mouth 2 [place] 00 (two) Medical times Branch daily before breakfast and dinner. HYDROcodone 2020-0 Yes [id number] 1{tbl} Take 1 Univers -acetaminop 2-22 tablet by ity of hen 5-325 00:00: mouth [place] mg tablet 00 every 6 Medical (six) Branch hours as needed for Pain (scale 7-10). glipiZIDE 2020-0 Yes [id number] 10mg Take 1 Un grabiel 10 mg 2-22 tablet by ity of tablet 00:00: mouth 2 00 (two) Medical times Branch daily before breakfast and dinner. glipiZIDE 2020-0 Yes [id number] 10mg Take 1 Un grabiel 10 mg 2-22 tablet by ity of tablet 00:00: mouth 2 [place] 00 (two) Medical times Branch daily before breakfast and dinner. HYDROcodone 2020-0 Yes [id number] 1{tbl} Take 1 Univers -acetaminop 2-22 tablet by ity of hen 5-325 00:00: mouth [place] mg tablet 00 every 6 Medical (six) Branch hours as needed for Pain (scale 7-10). HYDROcodone 2020-0 Yes [id number] 1{tbl} Take 1 Univers -acetaminop 2-22 tablet by ity of hen 5-325 00:00: mouth [place] mg tablet 00 every 6 Medical (six) Branch hours as needed for Pain (scale 7-10). glipiZIDE 2020-0 Yes [id number] 10mg Take 1 Un grabiel 10 mg 2-22 tablet by ity of tablet 00:00: mouth 2 [place] 00 (two) Medical times Branch daily before breakfast and dinner. HYDROcodone 2020-0 Yes [id number] 1{tbl} Take 1 Univers -acetaminop 2-22 tablet by ity of hen 5-325 00:00: mouth [place] mg tablet 00 every 6 Medical (six) Branch hours as needed for Pain (scale 7-10). glipiZIDE 2020-0 Yes [id number] 10mg Take 1 Un grabiel 10 mg 2-22 tablet by ity of tablet 00:00: mouth 2 [place] 00 (two) Medical times Branch daily before breakfast and dinner. HYDROcodone 2020-0 Yes [id number] 1{tbl} Take 1 Univers -acetaminop 2-22 tablet by ity of hen 5-325 00:00: mouth [place] mg tablet 00 every 6 Medical (six) Branch hours as needed for Pain (scale 7-10). glipiZIDE 2020-0 Yes [id number] 10mg Take 1 Un grabiel 10 mg 2-22 tablet by ity of tablet 00:00: mouth 2 [place] 00 (two) Medical times Branch daily before breakfast and dinner. HYDROcodone 2020-0 Yes [id number] 1{tbl} Take 1 Univers -acetaminop 2-22 tablet by ity of hen 5-325 00:00: mouth [place] mg tablet 00 every 6 Medical (six) Branch hours as needed for Pain (scale 7-10). glipiZIDE 2020-0 Yes [id number] 10mg Take 1 Un grabiel 10 mg 2-22 tablet by ity of tablet 00:00: mouth 2 [place] 00 (two) Medical times Branch daily before breakfast and dinner. HYDROcodone 2020-0 Yes [id number] 1{tbl} Take 1 Univers -acetaminop 2-22 tablet by ity of hen 5-325 00:00: mouth [place] mg tablet 00 every 6 Medical (six) Branch hours as needed for Pain (scale 7-10). glipiZIDE 2020-0 Yes [id number] 10mg Take 1 Un grabiel 10 mg 2-22 tablet by ity of tablet 00:00: mouth 2 [place] 00 (two) Medical times Branch daily before breakfast and dinner. HYDROcodone 2020-0 Yes [id number] 1{tbl} Take 1 Univers -acetaminop 2-22 tablet by ity of hen 5-325 00:00: mouth [place] mg tablet 00 every 6 Medical (six) Branch hours as needed for Pain (scale 7-10). glipiZIDE 2020-0 Yes [id number] 10mg Take 1 Un grabiel 10 mg 2-22 tablet by ity of tablet 00:00: mouth 2 [place] 00 (two) Medical times Branch daily before breakfast and dinner. HYDROcodone 2020-0 Yes [id number] 1{tbl} Take 1 Univers -acetaminop -22 tablet by ity of hen 5-325 00:00: mouth [place] mg tablet 00 every 6 Medical (six) Branch hours as needed for Pain (scale 7-10). ciprofloxac 2020-0 2020- No [id number] 500mg Take 1 Univers in HCl 500 11-06 tablet by ity of mg tablet 00:00: 05:59 mouth [place] 00 :00 every 12 Medical (twelve) Branch hours for 7 days. metroNIDAZO 2020-0 2020- No [id number] 500mg Take 1 Univers LE 500 mg 11-06 tablet by ity of tablet 00:00: 05:59 mouth 2 [place] 00 :00 (two) Medical times Branch daily for 7 days. HYDROmorpho 2019-0 Yes 1mg 1 mg, Slow Univers ne 2-21 IV Push, ity of (DILAUDID) 15:33: Q6HPRN, [place] injection 1 28 Starting Medi kyrie mg Fri Branch 11/05/19 at 0933, Until Discontinu ed, Routine, Pain (scale 7-10)
U se approved by (Faculty): [employer] PROVIDER HYDROmorphO 2019-0 2020- No 1mg 1 mg, Slow Univers [...] [place] mg 00 First dose Medical on [place] Branch 11/04/19 at 0900, Until Discontinu ed, Routine ciprofloxac 2019-0 2020- No 400mg 400 mg, IV Univers in in 5 % 11-04- Piggyback, ity of dextrose 07:00: 20:00 [place] (CIPRO) 00 :00 over 60 Medical piggyback Minutes, Branch 400 mg Q12H ABX, 2 doses, First dose on [place] 11/04/19 at 0100, Last dose on Fri11/04/19 [...] insulin 2019-0 2020- No 30U 30 Units, [facility] ers detemir 11-04-20 Subcutaneo ity o f U-100 01:30: 14:24 us, DAILY, [place] (LEVEMIR 00 :53 First dose Medic al [...] mg 00 Starting Medi kyrie tablet 1 Wed Branch tablet 11/03/19 at 1544, Until Discontinu [...] ONCE, 1 [place] Piggyback 00 :00 dose, Fri Medic al 500 mg 11/03/19 at Branch [...] Until 11/03/19 at 1921, MANDEEP FENTanyl PF 2019-2019- No [...] at Branch 1100, MANDEEP cyclobenzap 2018-09- No [id number] 5mg Take 1 Univers rine 5 mg 011-06 9100 tablet by ity of tablet 00:00: 00:00 mouth 3 [place] 00 :00 (three) Medical times Branch daily. traMADol 2018-09- No [id number] 50mg Take 1 Univers (ULTRAM) 50 11-06 [...] it y of b-squeez 00:00: 00:00 each [place] bottle 00 :00 nostril 2 Medical (NEILMED (two) Branch SINUS RINSE times COMPLETE) daily. Use pkdv in hot shower 1 hour before bedtime Vital Signs Vital Name Observation Time Observation Value Comments Source Systolic blood 2022-07-13 02:00:00 165 mm[Hg] [facility] Diastolic blood 2022-07-13 02:00:00 96 mm[Hg] [facility] Heart rate 2022-07-13 02:00:00 88 /min [facility] Respiratory rate 2022-07-13 02:00:00 18 /min [facility] Oxygen saturation in 2022-07-13 02:00:00 98 /min [facility] Arterial blood by [facility] [place] [facility] Pulse oximetry Branch Body temperature 2022-07-13 01:48:00 37 Leonor [facility] Body height 2022-07-13 01:25:00 188 cm [facility] Body weight 2022-07-13 01:25:00 129.275 kg [facility] BMI 2022-07-13 01:25:00 36.59 kg/m2 [facility] Systolic blood 2022-07-07 02:21:33 135 mm[Hg] Univer sity of pressure [place] [facility] Diastolic blood 2022-07-07 02:21:33 81 mm[Hg] Unive rsity of pressure [place] [facility] Heart rate 2022-07-07 02:21:33 93 /min Universi ty [facility] [place] [facility] Respiratory rate 2022-07-07 02:21:33 18 /min Univ ersity of [place] [facility] Oxygen saturation in 2022-07-07 02:21:33 96 /min University of Arterial blood by [facility] [place] [facility] Pulse oximetry Branch Body temperature 2022-07-07 00:44:00 37 Leonor Univ ersity of [place] [facility] Body height 2022-07-07 00:44:00 188 cm Universi ty of [place] [facility] Body weight 2022-07-07 00:44:00 129.275 kg Universi ty of [place] [facility] BMI 2022-07-07 00:44:00 36.59 kg/m2 Universi ty of [place] [facility] Systolic blood 2022-06-21 18:46:00 128 mm[Hg] Univer sity of pressure [place] [facility] Diastolic blood 2022-06-21 18:46:00 86 mm[Hg] Unive rsity of pressure [place] [facility] Heart rate 2022-06-21 18:46:00 81 /min Universi ty of [place] [facility] Respiratory rate 2022-06-21 18:46:00 16 /min Univ ersity of [place] [facility] Oxygen saturation in 2022-06-21 18:46:00 99 /min University of Arterial blood by [facility] [place] [facility] Pulse oximetry Branch Body temperature 2022-06-21 16:02:00 37.06 Leonor Univ ersity of [place] [facility] Body height 2022-06-21 16:02:00 188 cm Universi ty of [place] [facility] Body weight 2022-06-21 16:02:00 127.007 kg [facility]i ty [facility] [place] [facility] BMI 2022-06-21 16:02:00 35.95 kg/m2 Universi ty [facility] [place] [facility] Systolic blood 2020-04-24 13:23:00 129 mm[Hg] Univer sity of pressure [place] [facility] Diastolic blood 2020-04-24 13:23:00 81 mm[Hg] Unive rsity of pressure [place] [facility] Heart rate 2020-04-24 13:23:00 82 /min Universi ty of [place] [facility] Body weight 2020-04-24 13:23:00 138.075 kg Universi ty of [place] [facility] BMI 2020-04-24 13:23:00 39.08 kg/m2 Universi ty of [place] [facility] Systolic blood 2020-04-24 13:23:00 129 mm[Hg] Univer sity of pressure [place] [facility] Diastolic blood 2020-04-24 13:23:00 81 mm[Hg] Unive rsity of pressure [place] [facility] Heart rate 2020-04-24 13:23:00 82 /min Universi ty of [place] [facility] Body weight 2020-04-24 13:23:00 138.075 kg Universi ty of [place] [facility] BMI 2020-04-24 13:23:00 39.08 kg/m2 Universi ty [facility] [place] [facility] Systolic blood 2020-04-07 03:51:00 118 mm[Hg] Univer sity of pressure [place] [facility] Diastolic blood 2020-04-07 03:51:00 68 mm[Hg] Unive rsity of pressure [place] [facility] Heart rate 2020-04-07 03:51:00 92 /min Universi ty of [place] [facility] Respiratory rate 2020-04-07 03:51:00 16 /min Univ ersity of [facility] Oxygen saturation in 2020-04-07 03:51:00 100 /min University of Arterial blood by [facility] [place] [facility] Pulse oximetry Branch Body temperature 2020-04-07 03:40:00 36.44 Leonor Univ ersity of [place] [facility] Body weight 2020-04-07 00:07:00 129.275 kg Universi ty of [place] [facility] BMI 2020-04-07 00:07:00 36.59 kg/m2 Universi ty [facility] [place] [facility] Heart rate 2020-02-19 23:10:00 105 /min Universi ty [facility] [place] [facility] Respiratory rate 2020-02-19 23:10:00 29 /min Univ ersity of [place] [facility] Oxygen saturation in 2020-02-19 23:10:00 94 /min University of Arterial blood by [facility] [place] [facility] Pulse oximetry Branch Systolic blood 2020-02-19 23:00:00 127 mm[Hg] Univer sity of pressure [place] [facility] Diastolic blood 2020-02-19 23:00:00 78 mm[Hg] Unive rsity of pressure [facility] Branch Body temperature 2020-02-19 22:04:[address] [facility] ersity of [facility] Body height 2020-02-19 19:56:00 188 cm Universi ty of [place] Medical [place] Body weight 2020-02-19 19:56:00 129.275 kg Universi ty of [place] [facility] BMI 2020-02-19 19:56:00 36.59 kg/m2 Universi ty of [facility] Systolic blood 2019-11-06 17:14:00 138 mm[Hg] Univer sity of pressure [facility] Diastolic blood 2019-11-06 17:14:00 88 mm[Hg] [facility] Heart rate 2019-11-06 17:14:00 102 /min Universi ty of [facility] Respiratory rate 2019-11-06 17:14:00 18 /min [facility] Oxygen saturation in 2019-11-06 17:14:00 96 /min [facility] Arterial blood by [facility] [place] [facility] [facility] Pulse oximetry Branch Body temperature 2019-11-06 14:00:[address] [facility] Body height 2019-11-03 23:00:00 188 cm [facility] ty of [facility] Body weight 2019-11-03 15:22:00 129.275 kg Universi ty [facility] BMI 2019-11-03 15:22:00 36.58 kg/m2 [facility] Procedures Procedure Date / Time Performing Clinician Source Performed XR KNEE 3 VW RIGHT 2023-04-04 15:33:38 Adam Servin [facility] XR CERVICAL SPINE 2 VW 2023-04-04 15:33:[address] CONSENT/REFUSAL FOR 2023-04-04 15:01:50 Doctor Unassigned, No [facility] [place] [facility] Name Medical Branch CONSENT/REFUSAL FOR 2022-07-13 01:17:58 Doctor Unassigned, No [facility] [place] [facility] TREAT[facility] Name Medical Branch CONSENT/REFUSAL FOR 2022-07-07 00:35:11 Doctor Unassigned, No [facility] [place] DIAGNOSIS [facility] TREATMENT Name Medical Branch CT HEAD WO CONTRAST 2022-06-21 17:34:58 Stephanie Oneal [facility] XR CHEST 1 VW 2022-06-21 16:37:11 Stephanie Oneal [facility] TROPONIN I 2022-06-21 16:28:00 Stephanie Oneal [facility] BASIC METABOLIC PANEL 2022-06-21 16:28:00 Stephanie Oneal [facility] (NA, K, CL, CO2, Medical Branch GLUCOSE, BUN, CREATININE, CA) CBC WITH DIFF 2022-06-21 16:28:00 Stephanie Oneal [facility] NOTICE OF PRIVACY 2022-06-21 15:51:50 Doctor Unassigned, No [facility] Branch CONSENT/REFUSAL FOR 2022-06-21 15:51:34 Doctor Unassigned, No Un [facility] DIAGNOSIS AND TREATMENT Name Medical Branch EGD (ENDO) 2020-04-07 02:31:21 Lisa Armendariz [facility] Medical [place] COMP. METABOLIC PANEL 2020-04-07 01:52:00 Yazmin Apple [facility] ([id number]) Medical Branch CBC WITH DIFF 2020-04-07 01:52:00 Yazmin Apple [facility] XR NECK SOFT TISSUE 2020-04-07 00:57:29 Yazmin Apple [facility] Medical Branch COVID-19 (ID NOW RAPID 2020-04-07 00:40:00 Yazmin Apple [facility] TESTING) Medical Branch NOTICE OF PRIVACY 2020-04-06 23:57:19 Doctor Unassigned, No [facility] PRACTICES Name Medical Branch CONSENT/REFUSAL FOR 2020-04-06 23:57:05 Doctor Unassigned, No [facility] Name Medical Branch REFERRAL- 2020-03-29 05:01:00 Doctor Unassigned, No [facility] REQUEST/RESPONSE Name Medical Branch POCT GLUCOSE 2020-02-19 23:05:00 Stephanie Oneal [facility] (AUTOMATED) Medical Branch POCT GLUCOSE 2020-02-19 21:52:00 Stephanie Oneal [facility] (AUTOMATED) Medical Branch COMP. METABOLIC PANEL 2020-02-19 20:47:00 Stephanie Oneal [facility] ([id number]) Medical Branch CBC WITH DIFFERENTIAL 2020-02-19 20:47:00 Stephanie Oneal [facility] Medical Branch COVID-19 (ID NOW RAPID 2020-02-19 20:47:00 Stephanie Oneal [facility] TESTING) Medical Branch NOTICE OF PRIVACY 2020-02-19 19:53:34 Doctor Unassigned, No [facility] PRACTICES Name Medical Branch CONSENT/REFUSAL FOR 2020-02-19 19:53:23 Doctor Unassigned, No [facility] DIAGNOSIS AND TREATMENT Name Medical Branch POCT GLUCOSE 2019-11-06 13:36:00 Pavithra [facility] (AUTOMATED) Medical Branch POCT GLUCOSE 2019-11-06 01:48:00 Pavithra [facility] (AUTOMATED) Medical Branch POCT GLUCOSE 2019-11-05 22:16:00 Pavithra [facility] (AUTOMATED) Medical Branch POCT GLUCOSE 2019-11-05 17:26:00 Pavithra [facility] (AUTOMATED) Medical Branch POCT GLUCOSE 2019-11-05 13:21:00 Pavithra [facility] (AUTOMATED) Medical Branch BASIC METABOLIC PANEL 2019-11-05 10:28:00 [facility] (NA, K, CL, CO2, Medical Branch GLUCOSE, BUN, CREATININE, CA) CBC WITH DIFFERENTIAL 2019-11-05 10:28:00 [facility] Medical [place] POCT GLUCOSE 2019-11-05 10:12:00 Luis Arshad [facility] (AUTOMATED) Medical Branch POCT GLUCOSE 2019-11-05 06:12:00 Pavithra [facility] (AUTOMATED) Medical Branch POCT GLUCOSE 2019-11-05 01:41:00 Pavithra [facility] (AUTOMATED) Medical Branch POCT GLUCOSE 2019-11-04 22:26:00 Pavithra [facility] (AUTOMATED) Medical Branch POCT GLUCOSE 2019-11-04 17:20:00 Pavithra [facility] (AUTOMATED) Medical Branch POCT GLUCOSE 2019-11-04 13:21:00 Pavithra [facility] (AUTOMATED) [facility] Branch POCT GLUCOSE 2019-11-04 11:57:00 Pavithra [facility] (AUTOMATED) Medical Branch POCT GLUCOSE 2019-11-04 05:30:00 Pavithra [facility] (AUTOMATED) Medical Branch POCT GLUCOSE 2019-11-04 02:17:00 Pavithra [facility] (AUTOMATED) [facility] POCT GLUCOSE 2019-11-03 23:23:00 Pavithra [facility] (AUTOMATED) [facility] Branch POCT GLUCOSE 2019-11-03 21:41:00 Pavithra [facility] (AUTOMATED) [facility] SURGICAL PATHOLOGY EXAM 2019-11-03 20:26:00 Yonatan Lund [facility] LAPAROSCOPIC 2019-11-03 19:24:00 Yonatan Lund [facility] APPENDECTOMY [facility] CT ABDOMEN PELVIS W 2019-11-03 17:41:22 Ervin Rhoades [facility] CONTRAST [facility] Branch LIPASE 2019-11-03 15:35:00 [facility] MET[facility]OLIC PANEL 2019-11-03 15:35:00 [id number] CBC WITH DIFFERENTIAL 2019-11-03 15:35[facility]00 [facility] GLYC[facility]OGLOBIN 2019-11-03 15:35:00 Stephanie Pichardo [facility] (A1C) [facility] URINALYSIS 2019-11-03 15:35:00 [facility] Encounters Start End Encounter Admission Attending Care Care Encounter Source Date/Time Date/Time Type Type Clinicians Facility Department ID 2023-04-04 2023-04-04 [facility] 1.2.840.114 [id number] Univers 10:08:04 23:59:00 Encounter AMANDA 350.1.13.10 [facility] 4.2.7.2.686 [facility] [id number] [facility] 807 Branch 2023-04-04 2023-04-04 Outpatient [facility] [id number] Univers 10:03:37 [facility]:07[facility]23-[facility]-04 2023-04-04 Hospital Adam Servin [facility] 1.2.840.114 [id number] Univers 10:00:00 10:07:00 Encounter AMANDA 350.1.13.10 ity of [place] 4.2.7.2.686 [facility] [id number] [facility] 807 Branch 2023-04-04 2023-04-04 Orders Doctor NAREN 1.2.840.114 [id number] Univers 00:00:00 00:00:00 Only Unassigned, MIRI 350.1.13.10 ity of [place] [facility] 4.2.7.2.686 Danie [id number] [facility] 009 Branch 2022-07-12 2022-07-12 Emergency [facility] [id number] Univers 20:32:00 22:17:00 YADIEL [facility] 2022-07-12 2022-07-12 [facility] [id number] Univers 20:32:00 22:17:00 Yadiel PATEL 350.1.13.10 i ty of [place] 4.2.7.2.6 [facility] [id number] [place] 039244 [place] 2022-07-12 2022-07-12 Outpatient R BRIGHT [facility] [id number] Univers 08:40:00 08:40:00 DAVID [facility] 2022-07-06 2022-07-06 Emergency X NEREYDA [facility] ERT [id number] Univers 19:49:00 23:18:00 ALEXIS [facility] 2022-07-06 2022-07-06 Emergency [facility] [id number] Univers 19:49:00 23:18:00 Alexis PATEL 350.1.13.10 ity of [place] [address] [place] [address] [id number] [facility] 084 [place] 2022-06-21 2022-06-21 Emergency X JM [facility] ERT [id number] Univers 11:04:00 13:54:00 STEPHANIE ity [facility] 2022-06-21 2022-06-21 Emergency Jm, [facility] [id number] Univers 11:04:00 13:54:00 Stephanie PATEL 350.1.13.10 i [place] [id number] [facility] 084 [place] 2022-06-21 2022-06-21 Orders Doctor NAREN 1.2.840.114 [id number] Univers 00:00:00 00:00:00 Only Unassigned, MIRI 350.1.13.10 ity of [place] [facility] 4.2.7.2.686 Danie as [id number] [facility] 009 Branch 2020-08-15 2020-08-15 Outpatient Tanja SUN [facility] [id number] Univers 10:00:00 10:00:00 SILVINA moorevictor manuel [facility] 2020-04-24 2020-04-24 Office [facility] 1.2.840.114 [id number] 08:15:37 08:49:56 Visit Norberto Patel 350.1.13.10 [place] 4.2.7.2.686 Professio [id number] nal [address] [place] [address] 2020-04-24 2020-04-24 Office Dolores [facility] 1.2.840.[id number] [facility] 08:15:37 08:49:56 Visit Norberto Patel 350.1.13.10 ity of [place] 4.2.7.2.686 [facility] s Professio [id number] Ga dical [address] 2020-04-24 2020-04-24 Outpatient NORBERTO FLORENTINO [facility] [id number] Univers 08:00:00 08:00:00 NORBERTO BERNAL [facility] 2020-04-06 2020-04-06 Emergency Yazmin Apple [facility] 1.2.840.114 [id number] Univers 19:12:13 22:55:00 Melanie Patel 350.1.13.10 [place] [id number] [facility] 071 [place] 2020-04-06 2020-04-06 Emergency X Yazmin APPLE [facility] ERT [id number] Univers 19:12:13 19:12:13 ity of [facility] 2020-04-06 2020-04-06 Orders Doctor NAREN 1.2.840.114 [id number] Univers 00:00:00 00:00:00 Only Unassigned, MIRI 350.1.13.10 ity of [place] [facility] 4.2.7.2.686 Danie as [id number] [address] 2020-03-29 2020-03-29 Orders Doctor NAREN 1.2.840.114 [id number] Univers 00:00:00 00:00:00 Only Unassigned, MIRI 350.1.13.10 ity of [place] [facility] 4.2.7.2.686 Danie as [id number] [address] 2020-02-19 2020-02-19 Emergency Jm [facility] 1.2.393.500 [id number] Univers 15:07:18 19:22:00 Stephanie S Amanda 350.1.13.10 i [place] [id number] [facility] 084 [place] 2020-02-19 2020-02-19 Emergency X [facility] ERT [id number] Univers 14:53:00 14:53:00 ity of [facility] 2020-02-19 2020-02-19 Orders Doctor SNEED 1.2.840.114 [id number] Univers 00:00:00 00:00:00 Only Unassigned, MIRI 350.1.13.10 ity of [place] [facility] 4.2.7.2.686 Danie as [id number] [address] 2019-11-08 2019-11-08 Transition Faraz Nicolas 1.2.840.114 [id number] Univers 00:00:00 00:00:00 of Care Hortensia De Jesus 350.1.13.10 ity [place] [id number] [facility] 403 Branch 2019-11-03 2019-11-06 [facility] Ervin Rhoades [facility] 1.2.840.1 [id number] Univers 09:25:15 12:00:00 Encounter Luis [facility].13.10 [facility] 4.2.7.2.686 [facility] [id number] [place] 039240 Branch 2019-11-03 2019-11-06 Inpatient X PAVITHRA MEARIANA MAHMOOD [id number] [facility] 09:25:15 12:00:00 [facility] Results Test Description Test Time Test Comments Results Result Comments Source TROPONIN I 2022-06-21 17:02:55 Test Item Value Reference Range Interpretation Comme nts TROPONIN I (test code = 0.004 ng/mL See_Comment [Au tomated message] The [id number]) system which ge nerated this result tra [...] biotin. Lab Interpretation Normal (test code = 72974-5) [facility] (NA, K, CL, CO2, GLUCOSE, BUN, CREATININE, CA)2022-06-21 16:50:52 Test Item Value Reference Range Interpretation Comments NA (test code = 137 mmol/L 135-145 4473378951) K (test code = 4.6 mmol/L 3.5-5 6856522338) CL (test code = 97 mmol/L 98-108 L 0515530250) CO2 TOTAL (test code = 30 mmol/L 23-31 3365572650) AGAP (test code = 2-16 4848642220) BUN (test code = 11 mg/dL 7-23 0487495612) GLUCOSE (test code = 214 mg/dL 70-110 H 2158826343) CREATININE (test code = 1.16 mg/dL 0.6-1.25 6849749314) CALCIUM (test code = 8.5 mg/dL 8.6-10.6 L 2311798181) eGFR (test code = mL/min/1.73m2 0737317058) KATE (test code = KATE) Association of [...] tests). Lab Interpretation Abnormal (test code = 29738-8) [facility] WITH [id number] 16:39:51 Test Item Value Reference Range Interpretation Comments WBC (test code = See_Comment [Automated 9474-2) message] The sy stem which generated this [...] (test code = 37.0 fL 38.5-51.6 L 74705-7) RDW-CV (test code = 13.2 % 12.1-15.4 788-0) PLT (test code = See_Comment [Automated 777-3) message] The sy stem which generated this result transmitted reference range : 150 - 328 10*3/ ?L. The reference r jevon was not used to interpret this result as normal/abnormal . MPV (test code = 11.1 fL 9.8-13 55753-3) NRBC/100 WBC (test See_Comment [Automat ed code = 9143900517) message] The system which generated this result transmitted reference range : 0.0 - 10.0 /100 WBCs. The refer ence range was not u sed to interpret th is result as normal/abnormal . NRBC x10^3 (test code See_Comment [Auto mated = 3730051494) message] The s ystem which generated this result transmitted reference range : 10*3/?L. The reference range was not used to interpret this result as normal/abnormal . GRAN MAT (NEUT) % 67.3 % (test code = 770-8) IMM GRAN % (test code 0.20 % = 0066461524) LYMPH % (test code = 23.5 % 736-9) MONO % (test code = 5.7 % 5905-5) EOS % (test code = 2.6 % 713-8) BASO % (test code = 0.7 % 706-2) GRAN MAT x10^3(ANC) 3.93 10*3/uL 1.99-6.95 (test code = 2590057658) IMM GRAN x10^3 (test 0-0.06 code = 6009924501) LYMPH x10^3 (test code 1.37 10*3/uL 1.09-3.23 = 731-0) MONO x10^3 (test code 0.33 10*3/uL 0.36-1.02 L = 742-7) EOS x10^3 (test code = 0.15 10*3/uL 0.06-0.53 711-2) BASO x10^3 (test code 0.04 10*3/uL 0.01-0.09 = 704-7) Lab Interpretation Abnormal (test code = 64522-8) [facility]68739[facility]2020-04-07 03:03:00 Test Item Value Reference Range Interpretation Comments NA (test code = 139 mmol/L 135-145 5838693902) K (test code = 4.4 mmol/L 3.5-5 4372320552) CL (test code = 101 mmol/L 98-108 4724513540) CO2 TOTAL (test code = 28 mmol/L 23-31 1352419813) AGAP (test code = 2-16 5331305985) BUN (test code = 11 mg/dL 7-23 4740458174) GLUCOSE (test code = 225 mg/dL 70-110 H 9386282200) CREATININE (test code = 0.98 mg/dL 0.6-1.25 8326465436) TOTAL BILI (test code = 0.5 mg/dL 0.1-1.1 0455751872) CALCIUM (test code = 9.6 mg/dL 8.6-10.6 8876101042) T PROTEIN (test code = 8.2 g/dL 6.3-8.2 0373892306) ALBUMIN (test code = 4.7 g/dL 3.5-5 6499604866) ALK PHOS (test code = 75 U/L 34-122 7569882418) ALTv (test code = 74 U/L 5-50 H 1742-6) AST(SGOT) (test code = 39 U/L 13-40 5595300354) eGFR Calculation mL/min/1.73m2 (Non-) (test code = 1873862741) eGFR Calculation mL/min/1.73m2 () (test code = 3391779398) KATE (test code = KATE) Association of [...] tests). Lab Interpretation Abnormal (test code = 18501-8) [facility] WITH [id number] 02:12:00 Test Item Value Reference Range Interpretation Comments WBC (test code = See_Comment [Automated 6075-2) message] The sy stem which generated this result transmitted reference range : 4.20 - 10.70 10*3/?L. The reference range was not used to interpret this result as normal/abnormal . RBC (test code = See_Comment H [Automated 919-8) message] The sy stem which generated this [...] (test code = 36.4 fL 38.5-51.6 L 98089-2) RDW-CV (test code = 12.5 % 12.1-15.4 788-0) PLT (test code = See_Comment [Automated 777-3) message] The sy stem which generated this result transmitted reference range : 150 - 328 10*3/ ?L. The reference r jevon was not used to interpret this result as normal/abnormal . MPV (test code = 11.5 fL 9.8-13 53390-6) NRBC/100 WBC (test See_Comment [Automat ed code = 1546165104) message] The system which generated this result transmitted reference range : 0.0 - 10.0 /100 WBCs. The refer ence range was not u sed to interpret th is result as normal/abnormal . NRBC x10^3 (test code <0.01 See_Comment [Auto mated = 8389898034) message] The s ystem which generated this result transmitted reference range : 10*3/?L. The reference range was not used to interpret this result as normal/abnormal . GRAN MAT (NEUT) % 68.0 % (test code = 770-8) IMM GRAN % (test code 0.40 % = 3556396829) LYMPH % (test code = 23.8 % 736-9) MONO % (test code = 4.7 % 5905-5) EOS % (test code = 2.7 % 713-8) BASO % (test code = 0.4 % 706-2) GRAN MAT x10^3(ANC) 5.24 10*3/uL 1.99-6.95 (test code = 4392589021) IMM GRAN x10^3 (test 0.03 10*3/uL 0-0.06 code = 3768495835) LYMPH x10^3 (test code 1.83 10*3/uL 1.09-3.23 = 731-0) MONO x10^3 (test code 0.36 10*3/uL 0.36-1.02 = 742-7) EOS x10^3 (test code = 0.21 10*3/uL 0.06-0.53 711-2) BASO x10^3 (test code 0.03 10*3/uL 0.01-0.09 = 704-7) Lab Interpretation Abnormal (test code = 77534-9) [facility]APID TESTING)2020-04-07 01:40:00 Test Item Value Reference Range Interpretation Comments SARS-CoV-2 Rapid ID NOW Not Detected Not Detected (test code = 76821-1) KATE (test code = KATE) ID NOW COVID-19 Assay is an isothermal nucleic acid amplification test intended for the qualitative detection of nucleic acid from SARS-CoV-2 viral RNA in nasopharyngeal (REFINING MACHINE OPERATOR) specimens. It is used under [...] indicated. Lab Interpretation Normal (test code = 28288-1) [facility] [id number] 01:06:58 FINDINGS/IMPRESSION:: Frontal and lateral radiographs of the neck soft tissues were performed. No radiopaque foreign body identified. The oropharyngeal and nasopharyngealairways are patent. The prevertebral soft tissues are unremarkable. Mild spondylotic changes at C5-C6. Cervical spine is otherwiseunr emarkable. EXAM: XR NECK SOFT TISSUE HISTORY: esophageal fb COMPARISON: None. Nmmb, Radiant Results Inft User - 04/06/2020 8:08 PM CDTEXAM: XR NECK SOFT TISSUEHISTORY: esophageal fb COMPARISON: None.IMPRESSIONFINDINGS/IMPRESSION:: Frontal and lateral radiographs of the neck soft tissues were performed.No radiopaque foreign body identified. The oropharyngeal and nasopharyngealairways are patent. The prevertebral soft tissues are unremarkable.Mild spondylotic changes at C5-C6. Cervical spine is otherwiseunremarkable.[facility] GLUCOSE (AUTOMATED)2020-02-19 23:08:00 Test Item Value Reference Range Interpretation Comments POCT GLU (test code = 0876156428) 243 mg/dL 70-110 H Lab Interpretation (test code = Abnormal 44672-9) [facility] GLUCOSE (AUTOMATED)2020-02-19 21:58:00 Test Item Value Reference Range Interpretation Comments POCT GLU (test code = 7069794425) 313 mg/dL 70-110 H Lab Interpretation (test code = Abnormal 64147-7) [facility] RAPID TESTING)2020-02-19 21:31:00 Test Item Value Reference Range Interpretation Comments SARS-CoV-2 Rapid ID NOW Not Detected Not Detected (test code = 50646-5) KATE (test code = KATE) ID NOW COVID-19 Assay is an isothermal nucleic acid amplification test intended for the qualitative detection of nucleic acid from SARS-CoV-2 viral RNA in nasopharyngeal (REFINING MACHINE OPERATOR) specimens. It is used under [...] indicated. Lab Interpretation Normal (test code = 13009-1) [facility] METABOLIC PANEL (79368)2020-02-19 21:29:00 Test Item Value Reference Range Interpretation Comments NA (test code = 134 mmol/L 135-145 L 8485135684) K (test code = 4.1 mmol/L 3.5-5 2787074984) CL (test code = 99 mmol/L 98-108 5952782438) CO2 TOTAL (test code = 27 mmol/L 23-31 7495849998) AGAP (test code = 2-16 3342143566) BUN (test code = 10 mg/dL 7-23 0939534251) GLUCOSE (test code = 372 mg/dL 70-110 H 8759526019) CREATININE (test code = 0.96 mg/dL 0.6-1.25 6533047746) TOTAL BILI (test code = 0.4 mg/dL 0.1-1.7 0513127008) CALCIUM (test code = 9.2 mg/dL 8.6-10.6 8798994343) T PROTEIN (test code = 7.5 g/dL 6.3-8.2 9662033202) ALBUMIN (test code = 4.5 g/dL 3.5-5 7562310224) ALK PHOS (test code = 86 U/L 34-122 6426610666) ALTv (test code = 48 U/L 5-50 1742-6) AST(SGOT) (test code = 27 U/L 13-40 3972331116) eGFR Calculation mL/min/1.73m2 (Non-) (test code = 8616178116) eGFR Calculation mL/min/1.73m2 () (test code = 5400366313) KATE (test code = KATE) Association of [...] tests). Lab Interpretation Abnormal (test code = 45257-0) [facility] WITH [id number] 21:06:00 Test Item Value Reference Range Interpretation Comments WBC (test code = See_Comment [Automated 4315-2) message] The sy stem which generated this result transmitted reference range : 4.20 - 10.70 10*3/?L. The reference range was not used to interpret this result as normal/abnormal . RBC (test code = See_Comment H [Automated 879-8) message] The sy stem which generated this [...] (test code = 36.3 fL 38.5-51.6 L 80347-5) RDW-CV (test code = 12.9 % 12.1-15.4 788-0) PLT (test code = See_Comment [Automated 377-3) message] The sy stem which generated this result transmitted reference range : 150 - 328 10*3/ ?L. The reference r jevon was not used to interpret this result as normal/abnormal . MPV (test code = 11.3 fL 9.8-13 82927-5) NRBC/100 WBC (test See_Comment [Automat ed code = 7286649526) message] The system which generated this result transmitted reference range : 0.0 - 10.0 /100 WBCs. The refer ence range was not u sed to interpret th is result as normal/abnormal . NRBC x10^3 (test code <0.01 See_Comment [Auto mated = 2776769439) message] The s ystem which generated this result transmitted reference range : 10*3/?L. The reference range was not used to interpret this result as normal/abnormal . GRAN MAT (NEUT) % 79.8 % (test code = 770-8) IMM GRAN % (test code 0.50 % = 9832314229) LYMPH % (test code = 13.4 % 736-9) MONO % (test code = 4.2 % 5905-5) EOS % (test code = 1.8 % 713-8) BASO % (test code = 0.3 % 706-2) GRAN MAT x10^3(ANC) 8.49 10*3/uL 1.99-6.95 H (test code = 9977602743) IMM GRAN x10^3 (test 0.05 10*3/uL 0-0.06 code = 9985204667) LYMPH x10^3 (test code 1.42 10*3/uL 1.09-3.23 = 731-0) MONO x10^3 (test code 0.45 10*3/uL 0.36-1.02 = 742-7) EOS x10^3 (test code = 0.19 10*3/uL 0.06-0.53 711-2) BASO x10^3 (test code 0.03 10*3/uL 0.01-0.09 = 704-7) Lab Interpretation Abnormal (test code = 52450-4) [facility] GLUCOSE (AUTOMATED)2019-11-06 13:38:00 Test Item Value Reference Range Interpretation Comments POCT GLU (test code = 5676929788) 116 mg/dL 70-110 H Lab Interpretation (test code = Abnormal 15777-0) [facility] GLUCOSE (AUTOMATED)2019-11-06 12:29:00 Test Item Value Reference Range Interpretation Comments POCT GLU (test code = 4107381519) 322 mg/dL 70-110 H Lab Interpretation (test code = Abnormal 39688-0) [facility] GLUCOSE (AUTOMATED)2019-11-06 12:29:00 Test Item Value Reference Range Interpretation Comments POCT GLU (test code = 9513743657) 230 mg/dL 70-110 H Lab Interpretation (test code = Abnormal 94474-1) [facility] GLUCOSE (AUTOMATED)2019-11-06 02:00:00 Test Item Value Reference Range Interpretation Comments POCT GLU (test code = 155 mg/dL 70-110 H Notifi ed Provider 0257465542) Lab Interpretation (test Abnormal code = 90908-8) [address] [facility] [id number] 00:02:00 Test Item Value Reference Range Interpretation Comments Case Report (test code Surgical Pathology ? ? = [id number]) ?Case: [id number] ? Authorizing Provider: ?Yonatan Lund MD ? ? ? Collected: ? 11/03/2019 1426 ?Ordering Location: ? ? [facility] ? ? ?Received: ?11/03/2019 1555 ? [facility] ?Pathologist: ? Klaus Tinoco MD ? Specimen: ? ?APPENDIX, appendix ? Final Diagnosis (test y1inuXMhQWHon0vzZDZgbB code = 2196932936) FuZzEwMzNcZnRuYmpcdWMx UQjeuaHmZVpfm4UrU4YqXl AwMFxhbnNpXGRlZmxhbmcx IDBpVYR8yuGnBHJrLHoxMA GhGJdpBi3zzPEjiCrxMrSh NJIdb1buoaXJfbckdSf5p4 sgOWEbGqJ3pRTgXYlhU3qn bhLtfDSsSUQqSTe5yZ81CQ AkdO3hlAXqJNtpgdMiFWfc kzPfufPvNbx3WBTnE1avSM JuCZSyV0WtHQ5rGXMeZyk3 UOC5YPJ2wQafl9K8zYMudI IfgScaQaDzZkQgVHHFr5Bg GDf9ePxnC6LkAJSdKaO3nX QgUGFyYWdyYXBoIEZvbnQ7 kB69CIpcltO1hGRrr1Dkv5 9vw081iA3enQIgKOP6KUTo RSLqoBDoHGChERB1RJVfzQ WoJ2llOMvcXL1hvwvhBWA4 MFxtYXJndDcyMFxtYXJnYj BsqZQfYMDuaXykQCotc700 NXV7DwWzAZ8bS3Bdn7P9bH 9maXRcZGVmdGFiNzIwXGZv ys6lxMXsIAuvf0DiJVJ3zv Q7bWCmwIMzLZNdOS57Xqqk k3KsSrqaORQ0UUCrnoDft9 Ywn6kvGdWdiqLkA8bhH4Hs ZHJoZWFkXHBnYnJkcmZvb3 Vzc9OgcMXovOn2e5kwUXYo DEAmoQhfz4dbEER1RFAxC8 Z2gJGiu6mnMKrbAWIrhWF1 uzBjKAWfeEOhO4OtvP2jKD icOU8ltrj0i1zdWhKeLN8l zsiwz5lnFAtvNJIpJFO3Fh NsWYWva6FqassiCwArf6Sd sPKgKEmoM51qj254JMDxkf LlF6qphUEkqyhszKHeiudw MFxmczIwXHFsXHBsYWluXG HnXJWmZoCimTjxvG9hOlKo ZnMyMFxwYXJccGFyZFxwbG FpblxmMFxmczIwXHBsYWlu EAWdOGWfMfYgXH9oOXGKFM 0QRFvaSELDHTCUKJDOJR7A WTpccGFyXHFsXHBsYWluXG CjBDVjFdKuxTvdpI8lJvOy GaKeVJPcCSXkDN5bFJMILY UhYEVQAL1JTHUBTLxCUBwI SZtvAYTVAT9MLCJMFeMOA0 lUSVNccGFyXHBhciBNYXR0 hBB5JVHwsXNhQHLOOTwhVW HisCffkF3uZhFrAcSsQbdm YB6zXHQeH9ebpRQbYARxUI EuS9fkYtNouV9unEkiEYkt ZjFcZnMyMiBIYXJzaHdhcm DfKD7zWUaza0EfUKTSSSIl Xf3dWE6rHWEsQKU8NlRnXQ BNXHBsYWluXGYxXGZzMjBc gGBioIwgfwQqLVupp0TyG0 YyMjAwMFxhbnNpXGRlZmxh krlqACHhZGC3flSnQVNxZB hqYNRsWPztQl8wnDYqwOfb XgTmYEFkj9ricsCBTJawFb JtE471FPQdKUtfd5ldg6Gb BHKmiQDwf1L8BAHNqmakuB g0p6ffMmBbPhT7mWQtBEsq E9berkCedRMzT1QgwYKezK i2mYkqB22ua8M7QhhpV0mm VLQvMNPfL6LzQN6xWBCmIq x4AFF3WXW4XCIwJBMlV9Te DA7eRQTacESpKVw6m4uikD dgHMKlKIZ7q0ylDDknjdA3 JD5taa8qfLi0n2aktwAaND PuPJDksPDPHLSkV3AtkBmo Tv2dlFg6zLfiUgjnNMM2Es r3XU1gtb68dpk4bPirVJYp peyhVaI5WMmwVSOuacpbLL n8XSlcZFTouYG8WVKkqWWb J7GiAGGvIZ3lfop4KAF1LR zbHTKnXgK4NQSglLIjRGOl vEyvGCjmq839YQU3QyLqYK 6hY6Mck9J8pA3ftICyKXWz qHBcAlAjYUVbxg3daDPpPJ jxd3ZsYOQ9baD4mEZsuFQf MOQuMJ42Ghcfj2GoHccnUM X4WIAydmWrr9Smr2nmFrDm ntFgM3bvR4HoVKLmCFPwIG QwUgSvwiWnr0Owq1TqwQYr sAo4e7ulLEQxSNYhkXgnd8 zcPFR6CALxM1O5eCXou4pw GKozYXWloKW6kfP6VTQgiB AhR5BcpL4gIDHlGI3efji3 l9lfBVC0IReiEMBtJoL9dy I1CSHzqRLzIVWuyBcoYEmj u126QFN9MyVbDFFmr2PbJ3 OexSpjH49svBhyW63zGGTn mDrolF0xwGrmfX5wVcAcCo MyNFxxbFxwbGFpblxmMVxm czIwXGxhbmcxMDMzXGhpY2 itYrYuALIjbRopIExig1Zz XGYxXGNmMlxmczIwXHBhci GYGIrazqMtjOApa66jBLzq eSByZXZpZXdlZCBhbGwgc3 PpC0lyEH8nS5VziDTplgXd dmZdLYucEYNwb0f6iXIpjQ xut9AftMMaYO25yoDjQRGh WZC8OJTal2cvMP00jjckRq ZumN63szHistBhDWMpd4qi B8hchODxh3Att9VftqBbTW vxb8EmAM0nxNNapzknaGK5 TJPjoBTwkgErvgV5tHfhTR JbhX6caP4mjChkgY0fFaKt McLlJPwiVQ8jMWYmU7lobD ImSDUtCZTfZ8mtTcMhpT7l zFzoPrttceQ5XKLuhu39 Clinical Information Acute abdomen (test code = 1658363180) Gross Description (test c1xokHDtWHZzhPErRuDoOZ code = 4824685337) PmQFOme9ewRJStkWZcFcFv MzNcZnRuYmpcdWMxXGRlZm Zde1spr411vRTko2bpCJHc MqA0kPOpZHHvtFCsN435WR CkXQjcn5xee8JxOFYbcXEg u5L8DVBMmvfmkYo1tTduT8 6uu0Z2PxaeD6ewIEIoDKce HPXpKBcpxRXcSCH4LCDfNM Z4LYqceeLfihT3ZGluaJXq CsR5VEq4i8cipPmrJLXvMB H6v0vfKVdcioTpZM0uxf3w eMu7n4frpeVoFONcUZGkeQ CAEXLsY6PofWgaSd5oxRi6 bFviBuykBET0Dsr1RK5euj 97tfj7sQyhLVHkdetsOkA3 AOgnATBjiyxlDNj8IIfpWV YzxWFyEMBrwCDuT7OoVMth SY8ulyk3IyBbZC4snafbPX tgRWKuIAH3PrPbUDCwm4Bm zavuEwJtyq5bzh08LEB8k5 OyhDwdVQW8RJC5DjVyDy5p kPIfZKHoLQ5tEwXztEGgKG Xiuj32nWwrPPbylvHshT1c AiMwCGJmtQUqLNXfUY4lqC FkNFJwyK6jufyeYZCiKxXy erbsGUZdvHcbuxIkXc6neB flJNO7QWmuF8usoH0uKeL1 ULroO6wxsC2xYBo7KRrqqY W2ZZPswC0nWF4ecdmsp9ak OKL1CNmpCQHqmbL1ezLhRQ YteAXzD0RspT53TmVojCFu Z5MsxX5uDBokSRCcspp9He EdZg5ktDFklOD1EGyrKbti YWdlXHBnbmNvbnRccGduZG VjXHBsYWluXHBsYWluXGYw TRIqXwKek6MbTXAwt8muBt Eps5sgxSe8HVsotZlqqVYy blxmMFxmczIwXHBsYWluXG XuYLCeJpEoC8OnK0cySY9v QSBpcyByZWNlaXZlZCBpbi Fan2FzSCfxfsWdQHFrmSzf CPL5jJEpGAUxJYHfGUZyRM 50XHBsYWluXGYxXGZzMjBc lCrrOGgqAEy6YythfVOykb xmMVxmczIwIHMgbmFtZSwg VUggbnVtYmVyICJhcHBlbm RpeFxwbGFpblxmMVxmczIw RXK7FkIpPIyuQEYutHtunZ 7uLoBgEzOcFRUgUL1yROGa thNgu5TyZF7pMTYkpTswjc 71MV8dpsOjbCytx7NmZTHn wXIaJTb6UBi7NlqzV77tuU 8aaWAkY4GfDKxsNM33EVRm OCBjbSBpbiBkaWFtZXRlci lrq6c0hXHkzUPjZ2olRRO7 PQvsw4fvcY6gmMejsNOzNM Tzf0S8vQAcHWSwBEDhUXEe VM2zoDihEAViCKO8SVZlPU J5THCmRSWtsYssJOPBlGLd WLAdKL2jfUodn1Ozj7NyLJ szw1EaGELynqZ8bUVzGHJ2 nQQdkBJjPNXwheGvaQG5xH VudCBleHVkYXRlLiBUaGUg QQBeJG0mdBrpkBNmd2HuqA TccJyyy2EsaPlpdmZrHMNh IHJldmVhbCBhIHBhdGVudC SbeH5aykbiyhBaI7jeJzFc yb1uFFNxvtSntH59DAIeLN EbQwDjoSruO74lqFWflqnk ViBxD0QmkHOvEA7cksOhJI dlLiAgVGhlIHdhbGwgdGhp Q1ukBIAvYNWqiqspdvTvcj 0vJVOzIV0kSbQpX23vWQUz cnVwdHVyZSBzaXRlIGlzIG enh7QkqWhpjRWfhnFaAriq LCepUU5iBSVxEAUmn20jzV wcUT70F97gKXviaeTpVPC0 zC2tSE9gzyzfhj4mEpWvze NbCH15WTDellEgo3QdlPlz mqWuq5vaP0galU2cbDXjTL Jmeb5jfzTgNXU9eU8ckyhp uYgcSTTjwRKpsL8sFRVrnb SrBJO4aL4wUO6fwiubrmUw bmQgZGlzdGFsIHRpcCBhcm Akj1OqkIn9uVWrITkkNEZu LUEyLlxwYXJccGFyZFxwbG FpblxmMFxmczIwXHBsYWlu XGYxXGZzMjAgSnVsaWUgTW WKlKgwlnE6ADNQOYdpECL0 Embedded Images (test code = 4545646497) [facility] GLUCOSE (AUTOMATED)2019-11-05 22:19:00 Test Item Value Reference Range Interpretation Comments POCT GLU (test code = 2420278983) 115 mg/dL 70-110 H Lab Interpretation (test code = Abnormal 33628-4) [facility] GLUCOSE (AUTOMATED)2019-11-05 18:23:00 Test Item Value Reference Range Interpretation Comments POCT GLU (test code = 3559219019) 197 mg/dL 70-110 H Lab Interpretation (test code = Abnormal 96384-6) [facility] GLUCOSE (AUTOMATED)2019-11-05 17:33:00 Test Item Value Reference Range Interpretation Comments POCT GLU (test code = 0851429112) 125 mg/dL 70-110 H Lab Interpretation (test code = Abnormal 37621-5) [facility] GLUCOSE (AUTOMATED)2019-11-05 13:28:00 Test Item Value Reference Range Interpretation Comments POCT GLU (test code = 7394553046) 130 mg/dL 70-110 H Lab Interpretation (test code = Abnormal 17515-5) [facility] METABOLIC PANEL (NA, K, CL, CO2, GLUCOSE, BUN, CREATININE, CA)2019-11-05 12:11:00 Test Item Value Reference Range Interpretation Comments NA (test code = 137 mmol/L 135-145 3148024656) K (test code = 3.6 mmol/L 3.5-5 7293517833) CL (test code = 100 mmol/L 98-108 2856088452) CO2 TOTAL (test code = 30 mmol/L 23-31 2517012463) AGAP (test code = 2-16 9297586293) BUN (test code = 14 mg/dL 7-23 3463086787) GLUCOSE (test code = 164 mg/dL 70-110 H 3845568670) CREATININE (test code = 0.81 mg/dL 0.6-1.25 0741332567) CALCIUM (test code = 8.6 mg/dL 8.6-10.6 1747653949) eGFR Calculation mL/min/1.73m2 (Non-) (test code = 4145454086) eGFR Calculation mL/min/1.73m2 () (test code = 9886152399) KATE (test code = KATE) Association of [...] tests). Lab Interpretation Abnormal (test code = 45151-8) [facility] WITH [id number] 11:39:00 Test Item Value Reference Range Interpretation Comments WBC (test code = See_Comment [Automated 8261-2) message] The sy stem which generated this result transmitted reference range : 4.20 - 10.70 10*3/?L. The reference range was not used to interpret this result as normal/abnormal . RBC (test code = See_Comment [Automated 559-8) message] The sy stem which generated this [...] RDW-SD (test code = 38.7 fL 38.5-51.6 90232-1) RDW-CV (test code = 13.0 % 12.1-15.4 788-0) PLT (test code = See_Comment [Automated 777-3) message] The sy stem which generated this result transmitted reference range : 150 - 328 10*3/ ?L. The reference r jevon was not used to interpret this result as normal/abnormal . MPV (test code = 11.5 fL 9.8-13 43031-3) NRBC/100 WBC (test See_Comment [Automat ed code = 2934339225) message] The system which generated this result transmitted reference range : 0.0 - 10.0 /100 WBCs. The refer ence range was not u sed to interpret th is result as normal/abnormal . NRBC x10^3 (test code <0.01 See_Comment [Auto mated = 9473874259) message] The s ystem which generated this result transmitted reference range : 10*3/?L. The reference range was not used to interpret this result as normal/abnormal . GRAN MAT (NEUT) % 83.5 % (test code = 770-8) IMM GRAN % (test code 0.30 % = 6639428344) LYMPH % (test code = 9.3 % 736-9) MONO % (test code = 5.7 % 5905-5) EOS % (test code = 1.1 % 713-8) BASO % (test code = 0.1 % 706-2) GRAN MAT x10^3(ANC) 7.74 10*3/uL 1.99-6.95 H (test code = 5260575354) IMM GRAN x10^3 (test 0.03 10*3/uL 0-0.06 code = 9868365553) LYMPH x10^3 (test code 0.86 10*3/uL 1.09-3.23 L = 731-0) MONO x10^3 (test code 0.53 10*3/uL 0.36-1.02 = 742-7) EOS x10^3 (test code = 0.10 10*3/uL 0.06-0.53 711-2) BASO x10^3 (test code <0.03 0.01-0.09 = 704-7) Lab Interpretation Abnormal (test code = 47059-8) [facility] GLUCOSE (AUTOMATED)2019-11-05 10:22:00 Test Item Value Reference Range Interpretation Comments POCT GLU (test code = 3689013998) 149 mg/dL 70-110 H Lab Interpretation (test code = Abnormal 02906-9) [facility] GLUCOSE (AUTOMATED)2019-11-05 06:15:00 Test Item Value Reference Range Interpretation Comments POCT GLU (test code = 1403613833) 204 mg/dL 70-110 H Lab Interpretation (test code = Abnormal 55410-9) [facility] GLUCOSE (AUTOMATED)2019-11-05 01:48:00 Test Item Value Reference Range Interpretation Comments POCT GLU (test code = 0415651363) 227 mg/dL 70-110 H Lab Interpretation (test code = Abnormal 46733-8) [facility] GLUCOSE (AUTOMATED)2019-11-04 22:30:00 Test Item Value Reference Range Interpretation Comments POCT GLU (test code = 6590285539) 132 mg/dL 70-110 H Lab Interpretation (test code = Abnormal 89198-4) [facility] GLUCOSE (AUTOMATED)2019-11-04 17:24:00 Test Item Value Reference Range Interpretation Comments POCT GLU (test code = 9528973075) 213 mg/dL 70-110 H Lab Interpretation (test code = Abnormal 60498-4) [facility] GLUCOSE (AUTOMATED)2019-11-04 13:31:00 Test Item Value Reference Range Interpretation Comments POCT GLU (test code = 7732644521) 203 mg/dL 70-110 H Lab Interpretation (test code = Abnormal 55209-0) [facility] GLUCOSE (AUTOMATED)2019-11-04 12:03:00 Test Item Value Reference Range Interpretation Comments POCT GLU (test code = 0952157149) 213 mg/dL 70-110 H Lab Interpretation (test code = Abnormal 52807-4) [facility] 23:50:00 Test Item Value [...] Indicated Lab Interpretation Abnormal (test code = 48677-8) [facility] 23:28:00 Test Item Value Reference Range Interpretation Comments POCT GLU (test code = 7252936126) 273 mg/dL 70-110 H Lab Interpretation (test code = Abnormal 20986-1) [facility] [id number] 18:01:52CT Abdomen and Pelvis with intravenous contrast. [...] Dr. Rhoades in the emergency room at 12:00.[facility] [id number] 16:23:00 Test Item Value Reference Range Interpretation Comments APPEARANCE (test code = Clear Clear 6450775169) COLOR (test code = Yellow Yellow 8467968008) PH (test code = 4.8-8.0 0318846640) SP GRAVITY (test code = 1.003-1.030 4670046979) GLU U QUAL (test code = 500 mg/dL Normal A 1133977586) BLOOD (test code = Negative Negative 8856939393) KETONES (test code = Negative Negative 7791219600) PROTEIN (test code = Negative Negative 2887-8) UROBILIN (test code = Normal Normal 6062502096) BILIRUBIN (test code = Negative Negative 8142284672) NITRITE (test code = Negative Negative 6539244117) LEUK BIANCA (test code = Negative Negative 7717269465) RBC/HPF (test code = See_Comment [Autom ated message] 6336134847) The system Tuee generated this result transmit yelena reference range : 0 - 3 HPF. The refe rence range was not u sed to interpret th is result as normal/abnormal . WBC/HPF (test code = See_Comment [Autom ated message] 8047624509) The system Tuee generated this result transmit yelena reference range : 0 - 5 HPF. The refe rence range was not u sed to interpret th is result as normal/abnormal . BACTERIA (test code = Negative Negative 2622303931) MUCOUS (test code = Slight Negative LPF A 8100222831) SQ EPITH (test code = <1 HPF 9475792347) Lab Interpretation (test Abnormal code = 48799-0) [facility] 16:04:00 Test Item Value Reference Range Interpretation Comments NA (test code = 137 mmol/L 135-145 7950859273) K (test code = 4.3 mmol/L 3.5-5 4157771031) CL (test code = 98 mmol/L 98-108 9961995850) CO2 TOTAL (test code = 28 mmol/L 23-31 9395916454) AGAP (test code = 2-16 1938555038) BUN (test code = 11 mg/dL 7-23 4934063775) GLUCOSE (test code = 356 mg/dL 70-110 H 8221172713) CREATININE (test code = 1.01 mg/dL 0.6-1.25 1460041681) TOTAL BILI (test code = 0.9 mg/dL 0.1-1.1 0690436325) CALCIUM (test code = 9.1 mg/dL 8.6-10.6 2265466098) T PROTEIN (test code = 7.5 g/dL 6.3-8.2 7931428957) ALBUMIN (test code = 4.7 g/dL 3.5-5 1840564270) ALK PHOS (test code = 73 U/L 34-122 4102432499) ALTv (test code = 38 U/L 5-50 1742-6) AST(SGOT) (test code = 25 U/L 13-40 0680380966) eGFR Calculation mL/min/1.73m2 (Non-) (test code = 5877394505) eGFR Calculation mL/min/1.73m2 () (test code = 7234093791) KATE (test code = KAET) Association of [...] tests). Lab Interpretation Abnormal (test code = 28660-2) [facility]03:00 Test Item Value Reference Range Interpretation Comments LIPASE (test code = 7471810972) 48 U/L 0-220 Lab Interpretation (test code = Normal 33333-1) [facility] [id number] 15:51:00 Test Item Value Reference Range Interpretation Comments WBC (test code = See_Comment H [Automated 8590-2) message] The system which generated this result [...] (test code = 37.8 fL 38.5-51.6 L 96612-4) RDW-CV (test code = 12.7 % 12.1-15.4 788-0) PLT (test code = See_Comment [Automated 777-3) message] The system which generated this result transmit yelena reference range : 150 - 328 10*3/ ?L. The reference range was not u sed to interpret th is result as normal/abnormal . MPV (test code = 10.9 fL 9.8-13 22934-4) NRBC/100 WBC (test See_Comment [Automat ed code = 2468984609) message] The system which generated this result transmit yelena reference range : 0.0 - 10.0 /100 WBCs. The reference range was not used to interpret this result as normal/abnormal . NRBC x10^3 (test code <0.01 See_Comment [Auto mated = 7011488800) message] The system which generated this result transmit yelena reference range : 10*3/?L. The reference range was not used to interpret this result as normal/abnormal . GRAN MAT (NEUT) % 91.5 % (test code = 770-8) IMM GRAN % (test code 0.50 % = 7773912238) LYMPH % (test code = 3.9 % 736-9) MONO % (test code = 3.8 % 5905-5) EOS % (test code = 0.1 % 713-8) BASO % (test code = 0.2 % 706-2) GRAN MAT x10^3(ANC) 12.89 10*3/uL 1.99-6.95 H (test code = 9790906545) IMM GRAN x10^3 (test 0.07 10*3/uL 0-0.06 H code = 1101781439) LYMPH x10^3 (test code 0.55 10*3/uL 1.09-3.23 L = 731-0) MONO x10^3 (test code 0.54 10*3/uL 0.36-1.02 = 742-7) EOS x10^3 (test code = <0.03 0.06-0.53 L 711-2) BASO x10^3 (test code 0.03 10*3/uL 0.01-0.09 = 704-7) Lab Interpretation Abnormal (test code = 21368-8) [facility]"
[2023-04-20] MEDS ORDERED: DIPHENHYDRAMINE 50 MG/ML VIAL ONE (18:28)
[2023-04-20] MEDS ORDERED: KETOROLAC 30 MG/ML INJ ONE (18:28)
[2023-04-20] MEDS ORDERED: MAGNESIUM SULFATE 1 gm IVPB 1 GM/100 ML BAG IV ONE (18:28)
[2023-04-20] MEDS ORDERED: ONDANSETRON 4 MG/2 ML VIAL ONE (18:28)
[2023-04-20] MEDS ORDERED: NA CHLORIDE 0.9% 1,000 ML ONE (18:28)
[2023-04-20] MEDS ORDERED: dexAMETHasone 10 MG/ML VIAL ONE (19:57)
[2023-04-20] MEDS ORDERED: DIAZEPAM 10 MG/2 ML INJ SYRINGE ONE (20:03)
--- NOTE | 2023-04-20 20:48 | EDPHYS ---
Physician Documentation [facility] Name: Chente Minaya Age: 52 yrs Sex: Male : 1970 Arrival Date: 04/20/2023 Time: 17:47 Bed 17 Private MD: ED Physician Man rPyor HPI: 04/20 18:09 This 52 yrs old Male presents to ER via Ambulatory with complaints of Headache, sb4 Dizziness, Nausea. 18:09 Onset: The symptoms/episode began/occurred yesterday. Associated signs and symptoms: sb4 Pertinent positives: nausea, Photophobia Vertigo blurred vision. Headache History: The patient has had previous headaches and this one is similar to previous episodes. The patient has experienced similar episodes in the past, multiple times, and the symptoms today are exactly the same. Historical: - Allergies: 17:54 Bactrim; mb9 17:54 mushroom; mb9 17:54 Mustard; mb9 17:54 PENICILLINS; mb9 17:54 Reglan; mb9 17:54 Sulfa (Sulfonamide Antibiotics); mb9 17:54 surgical steel; mb9 17:54 tramadol; mb9 17:54 Tylenol-Codeine #3; mb9 17:54 Tylenol-Codeine #4; mb9 - PMHx: 17:54 diabetes mellitus; GERD; Migraine; mb9 - PSHx: 17:54 Appendectomy; mb9 - Immunization history:: Adult Immunizations up to date. - Social history:: Smoking status: Patient denies any tobacco usage or history of. ROS: 18:09 Constitutional: Negative for fever, chills, and weight loss, Eyes: Negative for injury, sb4 pain, redness, and discharge, ENT: Negative for injury, pain, and discharge, Cardiovascular: Negative for chest pain, palpitations, and edema, Respiratory: Negative for shortness of breath, cough, wheezing, and pleuritic chest pain, MS/Extremity: Negative for injury and deformity, Skin: Negative for injury, rash, and discoloration. 18:09 Abdomen/GI: Positive for nausea, Negative for abdominal pain, vomiting, diarrhea. 18:09 Neuro: Positive for dizziness, headache, Negative for gait disturbance, seizure activity, syncope. 18:09 All other systems are negative. Exam: 18:09 Constitutional: This is a well developed, well nourished patient who is awake, alert, sb4 and in no acute distress. Head/Face: Normocephalic, atraumatic. Eyes: Extra-ocular motions intact. Periorbital areas with no swelling, redness, or edema. Cardiovascular: Regular rate and rhythm with a normal S1 and S2. Respiratory: Lungs have equal breath sounds bilaterally, clear to auscultation and percussion. No rales, rhonchi or wheezes noted. No increased work of breathing, no retractions or nasal flaring. Abdomen/GI: Soft, non-tender, no distension. Skin: Warm, dry with normal turgor. Normal color with no rashes, no lesions, and no evidence of cellulitis. MS/ Extremity: Pulses equal, no cyanosis. Neurovascular intact. Full, normal range of motion. Neuro: Awake and alert, GCS 15, oriented to person, place, time, and situation. Cranial nerves II-XII grossly intact. Motor strength 5/5 in all extremities. Sensory grossly intact. Cerebellar exam normal. Normal gait. Vital Signs: 17:52 BP 137 / 97; Pulse 95; Resp 18; Temp 97.9; Pulse Ox 99% on R/A; Weight 124.74 kg; mb9 Height 6 ft. 2 in. ; Pain 10/10; 19:00 BP 117 / 63; Pulse 90; Resp 18; Pulse Ox 98% on R/A; eh3 20:00 BP 114 / 56; Pulse 86; Resp 18; Pulse Ox 95% on R/A; eh3 20:57 BP 107 / 70; Pulse 84; Resp 19; Pulse Ox 100% on R/A; kd3 17:52 Body Mass Index 35.31 (124.74 kg, 187.96 cm) mb9 17:52 Pain Scale: Adult mb9 Hull Coma Score: 18:09 Eye Response: spontaneous(4). Motor Response: obeys commands(6). Verbal Response: sb4 oriented(5). Total: 15. MDM: 17:53 Patient medically screened. sb4 18:09 Differential diagnosis: cluster headache, migraine, tension headache, vasomotor sb4 headache. 20:46 Data reviewed: vital signs, nurses notes, and as a result, I will discharge patient. sb4 Counseling: I had a detailed discussion with the patient and/or guardian regarding: the historical points, exam findings, and any diagnostic results supporting the discharge/admit diagnosis, the need for outpatient follow up, a neurologist, to return to the emergency department if symptoms worsen or persist or if there are any questions or concerns that arise at home. 20:47 ED course: pt states valium significantly helped the headache and has helped in the sb4 past. will dc with rx for 6. he will follow up with neurology for further workup / treatment . 04/20 18:08 Order name: IV Start; Complete Time: 18:10 sb4 Administered Medications: 18:30 Drug: NS 0.9% IV 1000 ml Route: IV; Rate: 1 bolus; Site: left antecubital; 3 20:58 Follow up: IV Status: Completed infusion kd3 18:31 Drug: Ondansetron IVP 4 mg Route: IVP; Site: left antecubital; 3 20:58 Follow up: Response: No adverse reaction; Nausea is decreased kd3 18:31 Drug: Ketorolac IVP 30 mg Route: IVP; Site: left antecubital; 3 20:58 Follow up: Response: No adverse reaction; Pain is decreased kd3 18:31 Drug: Magnesium Sulfate IVPB 1 grams Route: IVPB; Infused Over: 1 hrs; Site: left 3 antecubital; 20:58 Follow up: IV Status: Completed infusion kd3 18:31 Drug: diphenhydrAMINE IVP 25 mg Route: IVP; Site: left antecubital; 3 20:58 Follow up: Response: No adverse reaction kd3 19:55 Drug: Diazepam IVP 5 mg Route: IVP; Site: left antecubital; 3 20:58 Follow up: Response: No adverse reaction kd3 19:55 Drug: Decadron - Dexamethasone IVP 10 mg Route: IVP; Site: left antecubital; eh3 20:58 Follow up: Response: No adverse reaction kd3 Disposition Summary: 04/20/23 20:46 Discharge Ordered Location: Home sb4 Problem: an acute exacerbation sb4 Symptoms: have improved sb4 Condition: Stable sb4 Diagnosis - Headache sb4 Followup: sb4 - With: Travis Figueroa MD - When: As needed - Reason: Recheck today's complaints, Continuance of care, Re-evaluation by your physician Discharge Instructions: - Discharge Summary Sheet sb4 - Migraine Headache, [id number] sb4 Forms: - Medication Reconciliation Form sb4 - Thank You Letter sb4 - Antibiotic Education sb4 - Prescription Opioid Use sb4 - Patient Portal Instructions sb4 Prescriptions: - Valium 5 mg Oral Tablet - take 1 tablet by ORAL route every 8 hours As needed; 6 tablet; Refills: 0, sb4 Product Selection Permitted Signatures: Joie Servin RN RN eh3 Deidra Borja PA-C PA-C sb4 Yoselin Lindsay RN RN mb9 Emilee Larson RN kd3
--- NOTE | 2023-04-20 20:48 | ER ---
Nurse's Notes [facility] Name: Chente Minaya Age: 52 yrs Sex: Male : 1970 Arrival Date: 04/20/2023 Time: 17:47 Bed 17 Private MD: Diagnosis: Headache Presentation: 04/20 17:52 Chief complaint: Patient states: "I've had a servere migraine for the past 24 hrs. I mb9 get them often. I get a migraine cocktail when I come here and it helps so I'm hoping I can get one of those. I'm nauseous and dizzy from the headache". Coronavirus screen: Vaccine status: Patient reports being unvaccinated. Ebola Screen: No symptoms or risks identified at this time. Initial Sepsis Screen: Does the patient meet any 2 criteria? HR > 90 bpm. Does the patient have a suspected source of infection? No. Patient's initial sepsis screen is negative. Risk Assessment: Do you want to hurt yourself or someone else? Patient reports no desire to harm self or others. Onset of symptoms was 2022. 17:52 Method Of Arrival: Ambulatory [facility] 17:52 Acuity: GILDARDO 3 mb9 Triage Assessment: 17:54 Headache History: The patient has had previous headaches and this one is similar to mb9 previous episodes. General: Appears in no apparent distress. Behavior is cooperative. Pain: Complains of pain in head Pain radiates to left posterior Pain currently is 10 out of 10 on a pain scale. Quality of pain is described as throbbing, Pain began suddenly, Is continuous. Pain: Also complains of nausea. Neuro: Knox Agitation-Sedation Scale (RASS): 0 - Alert and Calm Level of Consciousness is awake, alert, obeys commands, Oriented to person, place, time, situation, Appropriate for age. Cardiovascular: Patient's skin is warm and dry. Respiratory: Airway is patent Respiratory effort is even, unlabored, Respiratory pattern is regular, symmetrical. GI: Reports nausea. : No signs and/or symptoms were reported regarding the genitourinary system. Derm: Skin is pink, warm \\T\\ dry. Musculoskeletal: Range of motion: intact in all extremities. Historical: - Allergies: 17:54 Bactrim; mb9 17:54 mushroom; mb9 17:54 Mustard; mb9 17:54 PENICILLINS; mb9 17:54 Reglan; mb9 17:54 Sulfa (Sulfonamide Antibiotics); mb9 17:54 surgical steel; mb9 17:54 tramadol; mb9 17:54 Tylenol-Codeine #3; mb9 17:54 Tylenol-Codeine #4; mb9 - PMHx: 17:54 diabetes mellitus; GERD; Migraine; mb9 - PSHx: 17:54 Appendectomy; mb9 - Immunization history:: Adult Immunizations up to date. - Social history:: Smoking status: Patient denies any tobacco usage or history of. Screenin:53 [facility] ED Fall Risk Assessment (Adult) History of falling in the last 3 months, kd3 including since admission No falls in past 3 months (0 pts) Confusion or Disorientation No (0 pts) Intoxicated or Sedated No (0 pts) Impaired Gait No (0 pts) Mobility Assist Device Used No (0 pt) Altered Elimination No (0 pt) Score/Fall Risk Level 0 - 2 = Low Risk Maintained a safe environment. Abuse screen: Denies threats or abuse. Denies injuries from another. Nutritional screening: No deficits noted. Tuberculosis screening: No symptoms or risk factors identified. Assessment: 18:00 General: Appears in no apparent distress. uncomfortable, Behavior is calm, cooperative, eh3 appropriate for age. Pain: Complains of pain in head. Neuro: Level of Consciousness is awake, alert, obeys commands, Oriented to person, place, time, situation. Cardiovascular: Capillary refill < 3 seconds Patient's skin is warm and dry. Respiratory: Airway is patent Respiratory effort is even, unlabored, Respiratory pattern is regular, symmetrical. GI: Abdomen is round non-distended. Derm: Skin is pink, warm \\T\\ dry. Musculoskeletal: Circulation, motion, and sensation intact. 19:00 Reassessment: Patient appears in no apparent distress at this time. Patient and/or eh3 family updated on plan of care and expected duration. Pain level reassessed. Patient is alert, oriented x 3, equal unlabored respirations, skin warm/dry/pink. 20:00 Reassessment: Patient appears in no apparent distress at this time. Patient and/or eh3 family updated on plan of care and expected duration. Pain level reassessed. Patient is alert, oriented x 3, equal unlabored respirations, skin warm/dry/pink. 20:57 Reassessment: Patient states symptoms have improved. General: Appears in no apparent kd3 distress. Behavior is calm, cooperative. Pain: Complains of pain in headache. Neuro: Level of Consciousness is awake, alert, obeys commands, Oriented to person, place, time, situation. Respiratory: Airway is patent Trachea midline Respiratory effort is even, unlabored, Respiratory pattern is regular, symmetrical. Vital Signs: 17:52 BP 137 / 97; Pulse 95; Resp 18; Temp 97.9; Pulse Ox 99% on R/A; Weight 124.74 kg; mb9 Height 6 ft. 2 in. ; Pain 10/10; 19:00 BP 117 / 63; Pulse 90; Resp 18; Pulse Ox 98% on R/A; eh3 20:00 BP 114 / 56; Pulse 86; Resp 18; Pulse Ox 95% on R/A; eh3 20:57 BP 107 / 70; Pulse 84; Resp 19; Pulse Ox 100% on R/A; kd3 17:52 Body Mass Index 35.31 (124.74 kg, 187.96 cm) mb9 17:52 Pain Scale: Adult mb9 Carol Coma Score: 18:09 Eye Response: spontaneous(4). Motor Response: obeys commands(6). Verbal Response: sb4 oriented(5). Total: 15. ED Course: 17:50 Patient arrived in ED. mg5 17:53 Deidra Borja [facility]-C is [facility]. sb4 17:53 Man Pryor MD is Attending Physician. sb4 17:54 Triage completed. mb9 17:54 Arm band placed on. mb9 18:03 Inserted saline lock: 20 gauge in left antecubital area, using aseptic technique. mb9 18:13 Joie Servin, CORA is Primary Nurse. eh3 20:46 Travis Figueroa MD is Referral Physician. sb4 20:53 No provider procedures requiring assistance completed. IV discontinued, intact, kd3 bleeding controlled, No redness/swelling at site. Pressure dressing applied. 20:54 Patient has correct armband on for positive identification. Provided Education on: . kd3 Administered Medications: 18:30 Drug: NS 0.9% IV 1000 ml Route: IV; Rate: 1 bolus; Site: left antecubital; eh3 20:58 Follow up: IV Status: Completed infusion kd3 18:31 Drug: Ondansetron IVP 4 mg Route: IVP; Site: left antecubital; 3 20:58 Follow up: Response: No adverse reaction; Nausea is decreased kd3 18:31 Drug: Ketorolac IVP 30 mg Route: IVP; Site: left antecubital; 3 20:58 Follow up: Response: No adverse reaction; Pain is decreased kd3 18:31 Drug: Magnesium Sulfate IVPB 1 grams Route: IVPB; Infused Over: 1 hrs; Site: left 3 antecubital; 20:58 Follow up: IV Status: Completed infusion kd3 18:31 Drug: diphenhydrAMINE IVP 25 mg Route: IVP; Site: left antecubital; 3 20:58 Follow up: Response: No adverse reaction kd3 19:55 Drug: Diazepam IVP 5 mg Route: IVP; Site: left antecubital; 3 20:58 Follow up: Response: No adverse reaction kd3 19:55 Drug: Decadron - Dexamethasone IVP 10 mg Route: IVP; Site: left antecubital; 3 20:58 Follow up: Response: No adverse reaction kd3 Medication: 17:56 VIS not applicable for this client. mb9 Outcome: 20:46 Discharge ordered by . sb4 20:53 Discharged to home ambulatory, with family. kd3 20:53 Condition: stable 20:53 Discharge instructions given to patient, family, Instructed on discharge instructions, follow up and referral plans. medication usage, Demonstrated understanding of instructions, follow-up care, medications, Prescriptions given X 1. 20:58 Patient left the ED. kd3 Signatures: Emilee Larson RN RN kd3 Joie Servin RN RN eh3 Deidra Borja, PANgaC PANgaC sb4 Yoselin Lindsay RN RN mb9 Jenna Meek mg5 Corrections: (The following items were deleted from the chart) 17:54 17:52 Pulse 95bpm; Resp 18bpm; Pulse Ox 99% RA; Temp 97.9F; 124.74 kg; Height 6 ft. 2 mb9 in.; BMI: 35.3; Pain 10/10, Adult; mb9
[2023-04-20 21:07] VITALS: TEMP 97.9
[2023-04-20 21:08] VITALS: BP 107/70; O2SAT 100
== END 2023-04-20 20:58 | disposition home or self-care (01) ==
LOC: ER 17:47
DX: R51.9 Headache, unspecified (principal); R42 Dizziness and giddiness; Z88.0 Allergy status to penicillin; Z88.1 Allergy status to other antibiotic agents; Z88.2 Allergy status to sulfonamides; Z88.5 Allergy status to narcotic agent; Z88.8 Allergy status to other drugs, medicaments and biological substances; Z91.018 Allergy to other foods; Z91.048 Other nonmedicinal substance allergy status
CPT/HCPCS: 96365; 96375; 99284; 96366; J3475; J1200; J3360; J1100; J2405; J7030

== ENCOUNTER 2023-12-12 15:52 | Emergency (ER) | payer OTHER ==
--- OUTSIDE RECORDS SUMMARY | 2023-12-12 15:57 | XMS REPORT | Continuity of Care Document ---
Author Name Unknown Address [address] [facility] [address] [place] [address] [facility] thconnect Address [address] [facility] [address] [place] [address] Care Team Providers Care Director Style Name Role Phone PCP, PATIENT DOES NOT HAVE A Primary Care Physic alondra Unavailable Adam Servin PA-C Attending Clinician [phone] ADAM SERVIN Attending Clinician Unavailable Doctor Unassigned, Hosmer Attending Clinician U navailable YADIEL HAQ Attending Clinician Unavailable Yadiel Haq MD Attending Clinician [phone] DAVID NOVOA Attending Clinician Unavailable ALEXIS DAWN Attending Clinician Unavailable Alexis Dawn MD Attending Clinician [phone] STEPHANIE ONEAL Attending Clinician Unavailable Stephanie Adamson S Attending Clinician [phone] SILVINA SUN Attending Clinician Unavailable Norberto Bernal MD Attending Clinician NORBERTO BERNAL Attending Clinician Unavail able NORBERTO BERNAL Attending Clinician Unavail able Yazmin Ashby Attending Clinician [phone] Yazmin APPLE Attending Clinician Unavailable Hortensia Nicolas Attending Clinician [phone] Ervin Rhoades MD Attending Clinician [phone] Luis Arshad MD Attending Clinician [phone] LUIS ARSHAD Attending Clinician Unavailable STEPHANIE ONEAL Admitting Clinician Unavailable Luis Arshad MD Admitting Clinician [phone] LUIS ARSHAD Admitting Clinician Unavailable Payers Payer Name Policy Type Policy Number Effective Date Expirati on Date Source Problems Condition Name Condition Details Condition Category Status Onset Date Resolution Date Last Treatment Date Treating Clinician Comments Source Abdominal pain Abdominal pain Disease Active 11-04 00:00: 00 [facility] Obesity (BMI 30-39.9) Obesity (BMI 30-39.9) Disease Active 11-03 00:00: 00 [facility] Acute postoperat momo abdominal pain Acute postoperat momo abdominal pain Disease Active 11-03 00:00: 00 [facility] Morbid obesity with body mass index of 50 or higher Morbid obesity with body mass index of 50 or higher Disease Active 2015-09 00:00: 00 [facility] Morbid obesity with body mass index of 40.0-49.9 Morbid obesity with body mass index of 40.0-49.9 Disease Active 2015-09 00:00: 00 [facility] Allergies, Adverse Reactions, Alerts Allergy Name Allergy Type Status Severity Reaction(s) Onset Date Inactive Date Treating Clinician Comments Source METOCLOP RAMIDE DRUG INGREDI Active Other-Cmnt 2021-09 00:00: 00 [facility] Metoclop ramide Propensi ty to adverse reaction s Active Other - See comments 2021-09 00:00: 00 [facility] METFORMI N DRUG INGREDI Active Diarrhea 2021-09 0 00:00: 00 [facility] Metformi n Drug Allergy Active Diarrhea 2021-09 0 00:00: 00 [facility] SULFA (SULFONA MIDE ANTIBIOT ICS) Drug Class Active Hives - 00:00: 00 [facility] ACETAMIN OPHEN-CO DEINE DRUG Active Hives 10-05 00:00: 00 [facility] Sulfa (Sulfona mide Antibiot ics) Propensi ty to adverse reaction s Active Hives 2017-0 -21 00:00: 00 [facility] Sulfa (Sulfona mide Antibiot ics) Propensi ty to adverse reaction s Active Hives - 00:00: 00 [facility] Acetamin ophen-Co deine Propensi ty to adverse reaction s Active Hives 10-05 00:00: 00 [facility] Penicill ins Propensi ty to adverse reaction s Active Hives 2011-0 8- 00:00: 00 [facility] PENICILL INS Drug Class Active Hives 2011-0 8-10 00:00: 00 [facility] SULFA DYNE DRUG Active Hives 0 8- 00:00: 00 [facility] Penicill ins Propensi ty to adverse reaction s Active Hives 0 8- 00:00: 00 [facility] Sulfa Dyne Propensi ty to adverse reaction s Active Hives 0 8- 00:00: 00 [facility] Social History Social Habit Start Date Stop Date Quantity Comments Source History of tobacco use Current smoker [facility] Exposure to SARS-CoV-2 (event) 2022-07-02 00:00:00 2022-07-12 20:23:00 Not sure [facility] Alcohol intake 2022-07-12 00:00:00 2022-07-12 00:00:00 Current drinker of alcohol (finding) [facility] History of Social function 2020-04-06 00:00:00 2020-04-06 00:00:00 [facility] History SDOH Financial 2019-11-04 00:00:00 2019-11-04 00:00:00 5 [facility] Tobacco use and exposure 2019-11-03 00:00:00 2019-11-03 00:00:00 Smokeless tobacco non-user [facility] Sex Assigned At 1970 00:00:00 1970 00:00:00 [facility] Smoking Status Start Date Stop Date Source Ex-smoker 2019-11-03 00:00:00 2019-11-03 00:00:00 [facility] Medications Ordered Medication Name Filled Medication Name Start Date Stop Date Current Medication? Ordering Clinician Indication Dosage Frequency Signature (SIG) Comments Components Source ketorolac (TORADOL) injection 30 mg 2021-09 03:15: 00 07-13 02:09 :00 No 30mg 30 mg, Slow IV Push, ONCE, 1 dose, On Fri07/12/22 at 2215, Routine [facility] FENTanyl PF (SUBLIMAZE (PF)) injection 50 mcg 2021-09 03:00: 00 07-13 02:09 :00 No 50ug 50 mcg, Intravenou s, ONCE, 1 dose, On Fri07/12/22 at 2200, Routine [facility] NaCl 0.9% (NS) bolus infusion 1,000 mL 2021-09 02:15: 00 07-13 02:40 :00 No 1000mL at 999 mL/hr, 1,000 mL, IV Infusion, ONCE, 1 dose, On Fri07/12/22 at 2115, STAT [facility] ketorolac (TORADOL) injection 30 mg 2021-09 03:30: 00 07-07 02:44 :00 No 30mg 30 mg, Slow IV Push, ONCE, 1 dose, On 07/06/22 at 2230, Routine [facility] NaCl 0.9% (NS) bolus infusion 500 mL 2021-09 02:30: 00 07-07 03:17 :00 No 500mL at 999 mL/hr, 500 mL, IV Infusion, ONCE, 1 dose, On 07/06/22 at 2130, STAT [facility] metoclopram kevin HCl (REGLAN) injection 10 mg 2021-09 02:30: 00 07-07 02:45 :00 No 10mg 10 mg, Slow IV Push, ONCE, 1 dose, On 07/06/22 at 2130, MANDEEP [facility] diphenhydrA MINE (BENADRYL) injection 25 mg 2021-09 02:30: 00 07-07 02:43 :00 No 25mg 25 mg, Slow IV Push, ONCE, 1 dose, On 07/06/22 at 2130, STAT [facility] butorphanol (STADOL) injection 2 mg 2021-09 02:30: 00 07-07 02:20 :00 No 2mg 2 mg, Intramuscu lar, ONCE, 1 dose, On 07/06/22 at 2130, Routine [facility] insulin detemir (LEVEMIR U-100 INSULIN SC) 2021-09 19:49: 26 Yes 30U inject 30 Units under the skin 2 (two) times daily. [facility] insulin detemir (LEVEMIR U-100 INSULIN SC) 2021-09 19:49: 26 Yes 30U inject 30 Units under the skin 2 (two) times daily. [facility] insulin detemir (LEVEMIR U-100 INSULIN SC) 2021-09 19:49: 26 Yes 30U inject 30 Units under the skin 2 (two) times daily. [facility] insulin detemir (LEVEMIR U-100 INSULIN SC) 2021-09 19:49: 26 Yes 30U inject 30 Units under the skin 2 (two) times daily. [facility] insulin detemir (LEVEMIR U-100 INSULIN SC) 2021-09 19:49: 26 Yes 30U inject 30 Units under the skin 2 (two) times daily. [facility] NaCl 0.9% (NS) bolus infusion 1,000 mL 2021-09 18:15: 00 06-21 18:52 :00 No 1000mL at 999 mL/hr, 1,000 mL, IV Infusion, ONCE, 1 dose, On 06/21/22 at 1315, STAT [facility] ondansetron (ZOFRAN (PF)) injection 4 mg 2021-09 17:15: 00 06-21 17:19 :00 No 4mg 4 mg, Slow IV Push, ONCE, 1 dose, On Fri06/21/22 at 1215, MANDEEP [facility] ketorolac (TORADOL) injection 30 mg 2021-09 0 17:15: 00 06-21 17:20 :00 No 30mg 30 mg, Intramuscu lar, ONCE, 1 dose, On Fri06/21/22 at 1215, MANDEEP [facility] divalproex ER 250 mg 24 hr tablet 8 00:00: 00 Yes [id number] 250mg Take 1 tablet by mouth 2 (two) times daily. [facility] divalproex ER 250 mg 24 hr tablet 8 00:00: 00 Yes [id number] 250mg Take 1 tablet by mouth 2 (two) times daily. [facility] divalproex ER 250 mg 24 hr tablet 8 00:00: 00 Yes [id number] 250mg Take 1 tablet by mouth 2 (two) times daily. [facility] divalproex ER 250 mg 24 hr tablet 8 00:00: 00 Yes [id number] 250mg Take 1 tablet by mouth 2 (two) times daily. [facility] divalproex ER 250 mg 24 hr tablet 8 00:00: 00 Yes [id number] 250mg Take 1 tablet by mouth 2 (two) times daily. [facility] divalproex ER 250 mg 24 hr tablet 8- 00:00: 00 Yes [id number] 250mg Take 1 tablet by mouth 2 (two) times daily. [facility] divalproex ER 250 mg 24 hr tablet 8- 00:00: 00 Yes [id number] 250mg Take 1 tablet by mouth 2 (two) times daily. [facility] divalproex ER 250 mg 24 hr tablet 8 00:00: 00 Yes [id number] 250mg Take 1 tablet by mouth 2 (two) times daily. [facility] divalproex ER 250 mg 24 hr tablet 8-10 00:00: 00 Yes [id number] 250mg Take 1 tablet by mouth 2 (two) times daily. [facility] water for irrigation irrigation solution 04-07 03:19: 00 Yes PRN, Starting Angelina 04/06/20 at 2219, Until Discontinu ed, Routine, Intra-op [facility] simethicone (GAS RELIEF (SIMETHICON E)) 40 mg/0.6 mL drops 04-07 03:19: 00 Yes PRN, Starting Angelina 04/06/20 at 2219, Until Discontinu ed, Routine, Intra-op [facility] glucagon (GLUCAGEN DIAGNOSTIC KIT) injection 1 mg 04-07 02:45: 00 04-07 01:56 :00 No 1mg 1 mg, Intravenou s, ONCE, 1 dose, Angelina 04/06/20 at 2145, Routine [facility] glucagon (GLUCAGEN DIAGNOSTIC KIT) injection 1 mg 04-07 01:45: 04-07 00:47 :00 No 1mg 1 mg, Intravenou s, ONCE, 1 dose, Angelina 04/06/20 at 2045, Routine [facility] HYDROcodone -acetaminop hen (NORCO 5) 5-325 mg tablet 1 tablet 02-19 01:15: 00 02-19 00:11 :00 No 1{tbl} 1 tablet, Oral, ONCE, 1 dose, 02/19/20 at 2015, MANDEEP [facility] NaCl 0.9% (NS) bolus infusion 1,000 mL 02-18 23:00: 00 02-18 23:28 :00 No 1000mL at 999 mL/hr, 1,000 mL, IV Infusion, ONCE, 1 dose, 02/19/20 at 1800, STAT [facility] morpHINE injection 4 mg 02-18 23:00: 00 02-18 22:01 :00 No 4mg 4 mg, Slow IV Push, ONCE, 1 dose, 02/19/20 at 1800, STAT [facility] insulin regular human (HUMULIN R) injection 10 Units 02-18 22:45: 00 02-18 21:54 :00 No 10U 10 Units, Subcutaneo us, ONCE, 1 dose, 02/19/20 at 1745, STAT [facility] NaCl 0.9% (NS) bolus infusion 1,000 mL 02-18 21:45: 00 02-18 23:27 :00 No 1000mL at 999 mL/hr, 1,000 mL, IV Infusion, ONCE, 1 dose, 02/19/20 at 1645, STAT [facility] ondansetron (ZOFRAN (PF)) injection 4 mg 02-18 21:45: 00 02-18 20:51 :00 No 4mg 4 mg, Slow IV Push, ONCE, 1 dose, 02/19/20 at 1645, [facility] FENTanyl PF (SUBLIMAZE (PF)) injection 25 mcg 02-18 21:45: 00 02-18 20:50 :00 No 25ug 25 mcg, Slow IV Push, ONCE, 1 dose, 02/19/20 at 1645, STAT [facility] clindamycin in 5 % dextrose (CLEOCIN) 900 mg/50 mL IV piggyback RTU 900 mg 02-18 21:45: 00 02-18 21:21 :00 No 900mg 900 mg, IV Piggyback, ONCE, 1 dose, 02/19/20 at 1645, 50 mL
Reas on for Anti-Infec tive: Documented Infection< br>Documen yelena Infection Site: Skin / Soft Tissue
Duration of Therapy: Other (see Comments)< br>Restric yelena use approved by: ADC PROVIDER [facility] acetaminoph en (TYLENOL) tablet 1,000 mg 02-18 21:30: 00 02-18 20:30 :00 No 1000mg 1,000 mg, Oral, ONCE, 1 dose, 02/19/20 at 1630, [facility] traMADol 50 mg tablet 02-18 00:00: 00 Yes [id number] 50mg Take 1 tablet by mouth every 6 (six) hours as needed for Pain (scale 4-6). [facility] traMADol 50 mg tablet 02-18 00:00: 00 Yes [id number] 50mg Take 1 tablet by mouth every 6 (six) hours as needed for Pain (scale 4-6). [facility] mg tablet 02-18 00:00: 00 Yes [id number] 50mg Take 1 tablet by mouth every 6 (six) hours as needed for Pain (scale 4-6). [facility] tra[facility] 50 mg tablet 02-18 00:00: 00 Yes [id number] 50mg Take 1 tablet by mouth every 6 (six) hours as needed for Pain (scale 4-6). [facility] traMADol 50 mg tablet 02-18 00:00: 00 Yes [id number] 50mg Take 1 tablet by mouth every 6 (six) hours as needed for Pain (scale 4-6). [facility] traMADol 50 mg tablet 02-18 00:00: 00 Yes [id number] 50mg Take 1 tablet by mouth every 6 (six) hours as needed for Pain (scale 4-6). [facility] traMADol 50 mg tablet 02-18 00:00: 00 Yes [id number] 50mg Take 1 tablet by mouth every 6 (six) hours as needed for Pain (scale 4-6). [facility] traMADol 50 mg tablet 02-18 00:00: 00 Yes [id number] 50mg Take 1 tablet by mouth every 6 (six) hours as needed for Pain (scale 4-6). [facility] traMADol 50 mg tablet 02-18 00:00: 00 Yes [id number] 50mg Take 1 tablet by mouth every 6 (six) hours as needed for Pain (scale 4-6). [facility] traMADol 50 mg tablet 02-18 00:00: 00 Yes [id number] 50mg Take 1 tablet by mouth every 6 (six) hours as needed for Pain (scale 4-6). [facility] traMADol 50 mg tablet 02-18 00:00: 00 Yes [id number] 50mg Take 1 tablet by mouth every 6 (six) hours as needed for Pain (scale 4-6). [facility] traMADol 50 mg tablet 06 00:00: 00 Yes [id number] 50mg Take 1 tablet by mouth every 6 (six) hours as needed for Pain (scale 4-6). [facility] traMADol 50 mg tablet 02-18 00:00: 00 Yes [id number] 50mg Take 1 tablet by mouth every 6 (six) hours as needed for Pain (scale 4-6). [facility] clindamycin 150 mg capsule 02-18 00:00: 00 03-01 04:59 :00 No [id number] 450mg Take 3 capsules by mouth 3 (three) times daily for 10 days. [facility] glipiZIDE 10 mg tablet 11-06 00:00: 00 Yes [id number] 10mg Take 1 tablet by mouth 2 (two) times daily before breakfast and dinner. [facility] HYDROcodone -acetaminop hen 5-325 mg tablet 11-06 00:00: 00 Yes [id number] 1{tbl} Take 1 tablet by mouth every 6 (six) hours as needed for Pain (scale 7-10). [facility] glipiZIDE 10 mg tablet 11-06 00:00: 00 Yes [id number] 10mg Take 1 tablet by mouth 2 (two) times daily before breakfast and dinner. [facility] HYDROcodone -acetaminop hen 5-325 mg tablet - 00:00: 00 Yes [id number] 1{tbl} Take 1 tablet by mouth every 6 (six) hours as needed for Pain (scale 7-10). [facility] glipiZIDE 10 mg tablet 11-06 00:00: 00 Yes [id number] 10mg Take 1 tablet by mouth 2 (two) times daily before breakfast and dinner. [facility] HYDROcodone -acetaminop hen 5-325 mg tablet - 00:00: 00 Yes [id number] 1{tbl} Take 1 tablet by mouth every 6 (six) hours as needed for Pain (scale 7-10). [facility] glipiZIDE 10 mg tablet 2020-0 2-22 00:00: 00 Yes [id number] 10mg Take 1 tablet by mouth 2 (two) times daily before breakfast and dinner. [facility] HYDROcodone -acetaminop hen 5-325 mg tablet 2020-0 2-22 00:00: 00 Yes [id number] 1{tbl} Take 1 tablet by mouth every 6 (six) hours as needed for Pain (scale 7-10). [facility] glipiZIDE 10 mg tablet 2020-0 2-22 00:00: 00 Yes [id number] 10mg Take 1 tablet by mouth 2 (two) times daily before breakfast and dinner. [facility] HYDROcodone -acetaminop hen 5-325 mg tablet 2020-0 2-22 00:00: 00 Yes [id number] 1{tbl} Take 1 tablet by mouth every 6 (six) hours as needed for Pain (scale 7-10). [facility] glipiZIDE 10 mg tablet 2020-0 2-22 00:00: 00 Yes [id number] 10mg Take 1 tablet by mouth 2 (two) times daily before breakfast and dinner. [facility] HYDROcodone -acetaminop hen 5-325 mg tablet 2020-0 2-22 00:00: 00 Yes [id number] 1{tbl} Take 1 tablet by mouth every 6 (six) hours as needed for Pain (scale 7-10). [facility] glipiZIDE 10 mg tablet 2020-0 2-22 00:00: 00 Yes [id number] 10mg Take 1 tablet by mouth 2 (two) times daily before breakfast and dinner. [facility] HYDROcodone -acetaminop hen 5-325 mg tablet 2020-0 2-22 00:00: 00 Yes [id number] 1{tbl} Take 1 tablet by mouth every 6 (six) hours as needed for Pain (scale 7-10). [facility] glipiZIDE 10 mg tablet 2020-0 2-22 00:00: 00 Yes [id number] 10mg Take 1 tablet by mouth 2 (two) times daily before breakfast and dinner. [facility] HYDROcodone -acetaminop hen 5-325 mg tablet 2020-0 2-22 00:00: 00 Yes [id number] 1{tbl} Take 1 tablet by mouth every 6 (six) hours as needed for Pain (scale 7-10). [facility] glipiZIDE 10 mg tablet 2020-0 2-22 00:00: 00 Yes [id number] 10mg Take 1 tablet by mouth 2 (two) times daily before breakfast and dinner. [facility] glipiZIDE 10 mg tablet 2020-0 2-22 00:00: 00 Yes [id number] 10mg Take 1 tablet by mouth 2 (two) times daily before breakfast and dinner. [facility] HYDROcodone -acetaminop hen 5-325 mg tablet 2020-0 2-22 00:00: 00 Yes [id number] 1{tbl} Take 1 tablet by mouth every 6 (six) hours as needed for Pain (scale 7-10). [facility] HYDROcodone -acetaminop hen 5-325 mg tablet 2020-0 2-22 00:00: 00 Yes [id number] 1{tbl} Take 1 tablet by mouth every 6 (six) hours as needed for Pain (scale 7-10). [facility] glipiZIDE 10 mg tablet 2020-0 2-22 00:00: 00 Yes [id number] 10mg Take 1 tablet by mouth 2 (two) times daily before breakfast and dinner. [facility] HYDROcodone -acetaminop hen 5-325 mg tablet 2020-0 2-22 00:00: 00 Yes [id number] 1{tbl} Take 1 tablet by mouth every 6 (six) hours as needed for Pain (scale 7-10). [facility] glipiZIDE 10 mg tablet 2020-0 2-22 00:00: 00 Yes [id number] 10mg Take 1 tablet by mouth 2 (two) times daily before breakfast and dinner. [facility] HYDROcodone -acetaminop hen 5-325 mg tablet 2020-0 2-22 00:00: 00 Yes [id number] 1{tbl} Take 1 tablet by mouth every 6 (six) hours as needed for Pain (scale 7-10). [facility] glipiZIDE 10 mg tablet 2020-0 2-22 00:00: 00 Yes [id number] 10mg Take 1 tablet by mouth 2 (two) times daily before breakfast and dinner. [facility] HYDROcodone -acetaminop hen 5-325 mg tablet 11-06 00:00: 00 Yes [id number] 1{tbl} Take 1 tablet by mouth every 6 (six) hours as needed for Pain (scale 7-10). [facility] glipiZIDE 10 mg tablet 11-06 00:00: 00 Yes [id number] 10mg Take 1 tablet by mouth 2 (two) times daily before breakfast and dinner. [facility] HYDROcodone -acetaminop hen 5-325 mg tablet 11-06 00:00: 00 Yes [id number] 1{tbl} Take 1 tablet by mouth every 6 (six) hours as needed for Pain (scale 7-10). [facility] glipiZIDE 10 mg tablet 11-06 00:00: 00 Yes [id number] 10mg Take 1 tablet by mouth 2 (two) times daily before breakfast and dinner. [facility] HYDROcodone -acetaminop hen 5-325 mg tablet 11-06 00:00: 00 Yes [id number] 1{tbl} Take 1 tablet by mouth every 6 (six) hours as needed for Pain (scale 7-10). [facility] glipiZIDE 10 mg tablet 11-06 00:00: 00 Yes [id number] 10mg Take 1 tablet by mouth 2 (two) times daily before breakfast and dinner. [facility] HYDROcodone -acetaminop hen 5-325 mg tablet 11-06 00:00: 00 Yes [id number] 1{tbl} Take 1 tablet by mouth every 6 (six) hours as needed for Pain (scale 7-10). [facility] ciprofloxac in HCl 500 mg tablet 11-06 00:00: 00 11-13 05:59 :00 No [id number] 500mg Take 1 tablet by mouth every 12 (twelve) hours for 7 days. [facility] metroNIDAZO LE 500 mg tablet 11-06 00:00: 00 11-13 05:59 :00 No [id number] 500mg Take 1 tablet by mouth 2 (two) times daily for 7 days. [facility] HYDROmorpho ne (DILAUDID) injection 1 mg 11-05 15:33: 28 Yes 1mg 1 mg, Slow IV Push, Q6HPRN, Starting Fri11/05/19 at 0933, Until Discontinu ed, Routine, Pain (scale 7-10)
U se approved by (Faculty): ADC PROVIDER [facility] HYDROmorphO ne (DILAUDID) injection 1 mg 11-04 17:03: 17 11-05 15:33 :39 No 1mg 1 mg, Slow IV Push, Q3HPRN, Starting Fri11/04/19 at 1103, Until Fri11/05/19 at 0933, MANDEEP, Pain (scale 7-10)
U se approved by (Faculty): ADC PROVIDER [facility] sennosides (SENOKOT) tablet 8.6 mg 11-04 15:00: 00 Yes 8.6mg 8.6 mg, Oral, DAILY, First dose on Fri11/04/19 at 0900, Until Discontinu ed, Routine [facility] ciprofloxac in in 5 % dextrose (CIPRO) piggyback 400 mg 11-04 07:00: 00 11-04 20:00 :00 No 400mg 400 mg, IV Piggyback, Administer over 60 Minutes, Q12H ABX, 2 doses, First dose on Fri11/04/19 at 0100, Last dose on Fri11/04/19 at 1300, MANDEEP
Re ason for Anti-Infec tive: Documented Infection& lt;br>Docu mented Infection Site: Abdominal< br>Duratio n of Therapy: Other (see Comments) [facility] Sliding Scale Insulin - Aspart (NOVOLOG) + Fsbg Testing 11-04 03:00: 00 Yes Subcutaneo us, TID MEALS+HS, First dose on Fri11/03/19 at 2100, Until Discontinu ed, Routine [facility] docusate (COLACE) capsule 100 mg 11-04 02:00: 00 Yes 100mg 100 mg, Oral, Q12H, First dose on Fri11/03/19 at 2000, Until Discontinu ed, Routine [facility] insulin detemir U-100 (LEVEMIR U-100 INSULIN) injection 30 Units 11-04 01:30: 00 11-04 14:24 :53 No 30U 30 Units, Subcutaneo us, DAILY, First dose on Fri11/03/19 at 1930, Until Discontinu ed, [facility]ine [facility]ipi[facility] (GLUCOTROL) tablet 10 mg 11-04 00:45: 00 Yes 10mg 10 mg, Oral, BIDAC, First dose on Fri11/03/19 at 1845, Until Discontinu ed, Routine [facility] metroNIDAZO LE (FLAGYL I.V.) Piggyback 500 mg 11-03 23:15: 00 11-05 16:06 :00 No 500mg 500 mg, IV Piggyback, Q8H ABX, 6 doses, First dose on Fri11/03/19 at 1715, Last dose on Fri11/05/19 at 0915, 100 mL
Reas on for Anti-Infec tive: Documented Infection< br>Documen yelena Infection Site: Abdominal< br>Duratio n of Therapy: 7 days [facility] HYDROcodone -acetaminop hen (NORCO 5) 5-325 mg tablet 1 tablet 11-03 21:44: 00 Yes 1{tbl} 1 tablet, Oral, Q4HPRN, Starting Fri11/03/19 at 1544, Until Discontinu ed, Routine, Pain (scale 4-6) [facility] morpHINE injection 4 mg 11-03 21:43: 39 11-04 17:06 :17 No 4mg 4 mg, Slow IV Push, Q2HPRN, Starting Fri11/03/19 at 1543, Until Agnelina 11/04/19 at 1106, Routine, Pain (scale 7-10) [facility] ondansetron (ZOFRAN (PF)) injection 4 mg 11-03 21:40: 10 Yes 4mg 4 mg, Slow IV Push, Q6HPRN, Starting Fri11/03/19 at 1540, Until Discontinu ed, Routine, Nausea and Vomiting (N/V) [facility] metroNIDAZO LE (FLAGYL I.V.) Piggyback 500 mg 11-03 19:30: 00 11-03 19:55 :00 No 500mg 500 mg, IV Piggyback, ONCE, 1 dose, Fri11/03/19 at 1330, 100 mL
Reas on for Anti-Infec tive: Documented Infection< br>Documen yelena Infection Site: Abdominal< br>Duratio n of Therapy: Other (see Comments) [facility] ciprofloxac in in 5 % dextrose (CIPRO) piggyback 400 mg 11-03 19:30: 00 11-03 19:43 :00 No 400mg 400 mg, IV Piggyback, Administer over 60 Minutes, ONCE, 1 dose, Fri11/03/19 at 1330, MANDEEP
Re ason for Anti-Infec tive: Documented Infection< br>Documen yelena Infection Site: Abdominal< br>Duratio n of Therapy: Other (see Comments) [facility] D5W 0.45% NaCl (1/2NS) IV infusion 1,000 mL 11-03 19:15: 00 11-04 01:21 :07 No 1000mL at 125 mL/hr, 1,000 mL, IV Infusion, CONTINUOUS , Starting Fri11/03/19 at 1315, Until Fri11/03/19 at 1921, MANDEEP [facility] FENTanyl PF (SUBLIMAZE (PF)) injection 125 mcg 11-03 18:15: 00 11-03 17:26 :00 No 125ug 125 mcg, Slow IV Push, ONCE, 1 dose, Fri11/03/19 at 1215, Routine [facility] iohexol (OMNIPAQUE 350 BULK-150 mL) injection 120 mL 11-03 17:32: 00 11-03 17:32 :00 No 120mL 120 mL, Intravenou s, ONCE, 1 dose, 11/03/19 at 1145, Routine [facility] NaCl 0.9% (NS) bolus infusion 1,000 mL 11-03 17:00: 00 11-03 18:28 :00 No 1000mL at 999 mL/hr, 1,000 mL, IV Infusion, ONCE, 1 dose, 11/03/19 at 1100, STAT [facility] FENTanyl PF (SUBLIMAZE (PF)) injection 100 mcg 11-03 17:00: 11-03 16:06 :00 No 100ug 100 mcg, Slow IV Push, ONCE, 1 dose, 11/03/19 at 1100, Routine [facility] ondansetron (ZOFRAN (PF)) injection 4 mg 11-03 17:00: 11-03 16:06 :00 No 4mg 4 mg, Slow IV Push, ONCE, 1 dose, 11/03/19 at 1100, MANDEEP [facility] cyclobenzap rine 5 mg tablet 2018-09 0-06 00:00: 00 11-06 00:00 :00 No [id number] 9100 5mg Take 1 tablet by mouth 3 (three) times daily. [facility] traMADol (ULTRAM) 50 mg tablet 2018-09 0 00:00: 11-06 00:00 :00 No [id number] 9100 50mg Take 1 tablet by mouth every 8 (eight) hours as needed for Pain (scale 4-6). [facility] benzonatate 100 mg capsule 10-05 00:00: 00 11-06 00:00 :00 No 100mg Take 1 capsule by mouth 3 (three) times daily as needed for Cough. DO NOT CHEW! [facility] ondansetron (ZOFRAN ODT) 4 mg disintegrat ing tablet 10-05 00:00: 00 11-06 00:00 :00 No 4mg Take 1 tablet by mouth every 8 (eight) hours as needed for Nausea and Vomiting (N/V). [facility] sod chlor-bicar b-squeez bottle (NEILMED SINUS RINSE COMPLETE) pkdv 2017-0 - 00:00: 00 11-06 00:00 :00 No 1{bottl e} Use 1 Bottle in each nostril 2 (two) times daily. Use in hot shower 1 hour before bedtime [facility] Vital Signs Vital Name Observation Time Observation Value Comments S miguel ángel Systolic blood pressure 2022-07-13 02:00:00 165 mm[Hg] [facility] Diastolic blood pressure 2022-07-13 02:00:00 96 mm[Hg] [facility] Heart rate 2022-07-13 02:00:00 88 /min [facility] Respiratory rate 2022-07-13 02:00:00 18 /min [facility] Oxygen saturation in Arterial blood by Pulse oximetry 2022-07-13 02:00:00 98 /min [facility] Body temperature 2022-07-13 01:48:00 37 Leonor [facility] Body height 2022-07-13 01:25:00 188 cm [facility] Body weight 2022-07-13 01:25:00 129.275 kg [facility] BMI 2022-07-13 01:25:00 36.59 kg/m2 [facility] Systolic blood pressure 2022-07-07 02:21:33 135 mm[Hg] [facility] Diastolic blood pressure 2022-07-07 02:21:33 81 mm[Hg] [facility] Heart rate 2022-07-07 02:21:33 93 /min [facility] Respiratory rate 2022-07-07 02:21:33 18 /min [facility] Oxygen saturation in Arterial blood by Pulse oximetry 2022-07-07 02:21:33 96 /min [facility] Body temperature 2022-07-07 00:44:00 37 Leonor [facility] Body height 2022-07-07 00:44:00 188 cm [facility] Body weight 2022-07-07 00:44:00 129.275 kg [facility] BMI 2022-07-07 00:44:00 36.59 kg/m2 [facility] Systolic blood pressure 2022-06-21 18:46:00 128 mm[Hg] [facility] Diastolic blood pressure 2022-06-21 18:46:00 86 mm[Hg] [facility] Heart rate 2022-06-21 18:46:00 81 /min [facility] Respiratory rate 2022-06-21 18:46:00 16 /min [facility] Oxygen saturation in Arterial blood by Pulse oximetry 2022-06-21 18:46:00 99 /min [facility] Body temperature 2022-06-21 16:02:00 37.06 Leonor [facility] Body height 2022-06-21 16:02:00 188 cm [facility] Body weight 2022-06-21 16:02:00 127.007 kg [facility] BMI 2022-06-21 16:02:00 35.95 kg/m2 [facility] Systolic blood pressure 2020-04-24 13:23:00 129 mm[Hg] [facility] Diastolic blood pressure 2020-04-24 13:23:00 81 mm[Hg] [facility] Heart rate 2020-04-24 13:23:00 82 /min [facility] Body weight 2020-04-24 13:23:00 138.075 kg [facility] BMI 2020-04-24 13:23:00 39.08 kg/m2 [facility] Systolic blood pressure 2020-04-24 13:23:00 129 mm[Hg] [facility] Diastolic blood pressure 2020-04-24 13:23:00 81 mm[Hg] [facility] Heart rate 2020-04-24 13:23:00 82 /min [facility] Body weight 2020-04-24 13:23:00 138.075 kg [facility] BMI 2020-04-24 13:23:00 39.08 kg/m2 [facility] Systolic blood pressure 2020-04-07 03:51:00 118 mm[Hg] [facility] Diastolic blood pressure 2020-04-07 03:51:00 68 mm[Hg] [facility] Heart rate 2020-04-07 03:51:00 92 /min [facility] Respiratory rate 2020-04-07 03:51:00 16 /min [facility] Oxygen saturation in Arterial blood by Pulse oximetry 2020-04-07 03:51:00 100 /min [facility] Body temperature 2020-04-07 03:40:00 36.44 Leonor [facility] Body weight 2020-04-07 00:07:00 129.275 kg [facility] BMI 2020-04-07 00:07:00 36.59 kg/m2 [facility] Heart rate 2020-02-19 23:10:00 105 /min [facility] Respiratory rate 2020-02-19 23:10:00 29 /min [facility] Oxygen saturation in Arterial blood by Pulse oximetry 2020-02-19 23:10:00 94 /min [facility] Systolic blood pressure 2020-02-19 23:00:00 127 mm[Hg] [facility] Diastolic blood pressure 2020-02-19 23:00:00 78 mm[Hg] [facility] Body temperature 2020-02-19 22:04:10 37.33 Leonor [facility] Body height 2020-02-19 19:56:00 188 cm [facility] Body weight 2020-02-19 19:56:00 129.275 kg [facility] BMI 2020-02-19 19:56:00 36.59 kg/m2 [facility] Systolic blood pressure 2019-11-06 17:14:00 138 mm[Hg] [facility] Diastolic blood pressure 2019-11-06 17:14:00 88 mm[Hg] [facility] Heart rate 2019-11-06 17:14:00 102 /min [facility] Respiratory rate 2019-11-06 17:14:00 18 /min [facility] Oxygen saturation in Arterial blood by Pulse oximetry 2019-11-06 17:14:00 96 /min [facility] Body temperature 2019-11-06 14:00:00 36.72 [facility] Body height 2019-11-03 23:00:00 188 cm [facility] Body weight 2019-11-03 15:22:00 129.275 kg [facility] BMI 2019-11-03 15:22:00 36.58 kg/m2 [facility] Procedures Procedure Date / Time Performed Performing Clinician Source XR KNEE 3 VW RIGHT 2023-04-04 15:33:38 [facility] 2 [facility]W 2023-04-04 15:33:20 Adam Servin [facility] CONSENT/REFUSAL FOR DIAGNOSIS AND TREATMENT 2023-04-04 15:01:50 Doctor Unassigned, Hosmer [facility] CONSENT/REFUSAL FOR DIAGNOSIS AND TREATMENT 2022-07-13 01:17:58 Doctor Unassigned, Hosmer [facility] CONSENT/REFUSAL FOR DIAGNOSIS AND TREATMENT 2022-07-07 00:35:11 Doctor Unassigned, Hosmer [facility] CT HEAD WO CONTRAST 2022-06-21 17:34:58 Stephanie Oneal [facility] XR CHEST 1 2022-06-21 16:37:11 Stephanie Oneal [facility] TROPONIN I 2022-06-21 16:28:00 Stephanie Oneal [facility] BASIC METABOLIC PANEL (NA, K, CL, CO2, GLUCOSE, BUN, CREATININE, CA) 2022-06-21 16:28:00 Stephanie Oneal [facility] CBC WITH DIFF 2022-06-21 16:28:00 Stephanie Oneal [facility] NOTICE OF PRIVACY PRACTICES 2022-06-21 15:51:50 Doctor Unassigned, Hosmer [facility] CONSENT/REFUSAL FOR DIAGNOSIS AND TREATMENT 2022-06-21 15:51:34 Doctor Unassigned, Hosmer [facility] EGD (ENDO) 2020-04-07 02:31:21 Lisa Armendariz [facility] COMP. METABOLIC PANEL ([id number]) 2020-04-07 01:52:00 Yazmin Apple [facility] CBC WITH DIFF 2020-04-07 01:52:00 Yazmin Apple [facility] XR NECK SOFT TISSUE 2020-04-07 00:57:29 Yazmin Apple e [facility] COVID-19 (ID NOW RAPID TESTING) 2020-04-07 00:40:00 Yazmin Apple [facility] NOTICE OF PRIVACY PRACTICES 2020-04-06 23:57:19 Doctor Unassigned, Hosmer [facility] CONSENT/REFUSAL FOR DIAGNOSIS AND TREATMENT 2020-04-06 23:57:05 Doctor Unassigned, Hosmer [facility] REFERRAL- REQUEST/RESPONSE 2020-03-29 05:01:00 Doctor Unassigned, Hosmer [facility] POCT GLUCOSE (AUTOMATED) 2020-02-19 23:05:00 Stephanie Oneal [facility] POCT GLUCOSE (AUTOMATED) 2020-02-19 21:52:00 Stephanie Oneal [facility] COMP. METABOLIC PANEL ([id number]) 2020-02-19 20:47:00 Stephanie Oneal [facility] CBC WITH DIFFERENTIAL 2020-02-19 20:47:00 Stephanie Oneal [facility] COVID-19 (ID NOW RAPID TESTING) 2020-02-19 20:47:00 Stephanie Oneal [facility] NOTICE OF PRIVACY PRACTICES 2020-02-19 19:53:34 Doctor Unassigned, Hosmer [facility] CONSENT/REFUSAL FOR DIAGNOSIS AND TREATMENT 2020-02-19 19:53:23 Doctor Unassigned, Hosmer [facility] POCT GLUCOSE (AUTOMATED) 2019-11-06 13:36:00 Luis Arshad [facility] POCT GLUCOSE (AUTOMATED) 2019-11-06 01:48:00 Luis Arshad [facility] POCT GLUCOSE (AUTOMATED) 2019-11-05 22:16:00 Luis Arshad [facility] POCT GLUCOSE (AUTOMATED) 2019-11-05 17:26:00 Luis Arshad [facility] POCT GLUCOSE (AUTOMATED) 2019-11-05 13:21:00 Luis Arshad [facility] BASIC METABOLIC PANEL (NA, K, CL, CO2, GLUCOSE, BUN, CREATININE, CA) 2019-11-05 10:28:00 Kayli Ritika [facility] CBC WITH DIFFERENTIAL 2019-11-05 10:28:00 Denise Milan [facility] POCT GLUCOSE (AUTOMATED) 2019-11-05 10:12:00 Luis Arshad [facility] POCT GLUCOSE (AUTOMATED) 2019-11-05 06:12:00 Luis Arshad [facility] POCT GLUCOSE (AUTOMATED) 2019-11-05 01:41[facility] 2019-11-04 22:26:00 Luis Arshad [facility] POCT GLUCOSE (AUTOMATED) 2019-11-04 17:20:00 [facility] POCT GLUCOSE (AUTOMATED) 2019-11-04 13:21:00 [facility] POCT GLUCOSE (AUTOMATED) 2019-11-04 11:57:00 [facility] POCT GLUCOSE (AUTOMATED) 2019-11-04 05:30:00 [facility] POCT GLUCOSE (AUTOMATED) 2019-11-04 02:17:00 [facility] POCT GLUCOSE (AUTOMATED) 2019-11-03 23:23:00 [facility] POCT GLUCOSE (AUTOMATED) 2019-11-03 21:41:00 Luis Arshad [facility] SURGICAL PATHOLOGY EXAM 2019-11-03 20:26:00 Sandeep Lund [facility] LAPAROSCOPIC APPENDECTOMY 2019-11-03 19:24:00 Yonatan Lund [facility] CT ABDOMEN PELVIS W CONTRAST 2019-11-03 17:41:22 Ervin Rhoades [facility] LIPASE 2019-11-03 15:35:00 Ervin Rhoades [facility] COMP. METABOLIC PANEL ([id number]) 2019-11-03 15:35:00 Ervin Rhoades [facility] CBC WITH DIFFERENTIAL 2019-11-03 15:35:00 Jimmy hRoades [facility] GLYCOSYLATED HEMOGLOBIN (A1C) 2019-11-03 15:35:00 Stephanie Pichardo [facility] URINALYSIS 2019-11-03 15:35:00 Ervin Rhoades [facility] Encounters Start Date/Time End Date/Time Encounter Type Admission Type Attending [facility] Care Department Encounter ID Source 2023-04-04 10:08:04 2023-04-04 23:59:00 Hospital Encounter [facility] 1.2.840.114 350.1.13.10 4.2.7.2.686 [id number] [facility] 2023-04-04 10:03:37 2023-04-04 10:07:00 Outpatient Tanja SERVIN [facility] [id number] [facility] 2023-04-04 10:00:00 2023-04-04 10:07:00 Hospital Encounter [facility] 1.2.840.114 350.1.13.10 4.2.7.2.686 [id number] [facility] 2023-04-04 00:00:00 2023-04-04 00:00:00 Orders Only Doctor Unassigned, Hosmer [facility] 1.2.840.114 350.1.13.10 4.2.7.2.686 [id number] [facility] 2022-07-12 20:32:00 2022-07-12 22:17:00 Emergency X YADIEL HAQ [facility] ERT [id number] [facility] 2022-07-12 20:32:00 2022-07-12 22:17:00 Emergency Yadiel Haq [facility] 1.2.840.114 350.1.13.10 4.2.7.2.686 [id number] [facility] 2022-07-12 08:40:00 2022-07-12 08:40:00 Outpatient DAVID YOUSIF [facility] [id number] [facility] 2022-07-06 19:49:00 2022-07-06 23:18:00 Emergency X ALEXIS DAWN [facility] ERT [id number] [facility] 2022-07-06 19:49:00 2022-07-06 23:18:00 Emergency Alexis Dawn [facility] 1..840.114 350.1.13.10 4.2.7.2.686 [id number] [facility] 2022-06-21 11:04:00 2022-06-21 13:54:00 Emergency X STEPHANIE ONEAL [facility] ERT [id number] [facility] 2022-06-21 11:04:00 2022-06-21 13:54:00 Emergency Stephanie Oneal [facility] 1..840.114 350.1.13.10 4.2.7.2.686 [id number] [facility] 2022-06-21 00:00:00 2022-06-21 00:00:00 Orders Only Doctor Unassigned, Hosmer [facility] 1..840.114 350.1.13.10 4.2.7.2.686 [id number] [facility] 2020-08-15 10:00:00 2020-08-15 10:00:00 Outpatient SILVINA ISBELL [facility] [id number] [facility] 2020-04-24 08:15:37 2020-04-24 08:49:56 Office Visit Norberto Bernal [facility] Building 1..840.114 350.1.13.10 4.2.7.2.686 [id number] 2020-04-24 08:15:37 2020-04-24 08:49:56 Office Visit Norbreto Bernal [facility] Building 1..840.114 350.1.13.10 4.2.7.2.686 [id number] [facility] 2020-04-24 08:00:00 2020-04-24 08:00:00 Outpatient NORBERTO FLORENTINO [facility] [id number] [facility] 2020-04-06 19:12:13 2020-04-06 22:55:00 Emergency Yazmin Apple [facility] 1.2.840.114 350.1.13.10 4.2.7.2.686 [id number] [facility] 2020-04-06 19:12:13 2020-04-06 19:12:13 Emergency X Yazmin APPLE [facility] ERT [id number] [facility] 2020-04-06 00:00:00 2020-04-06 00:00:00 Orders Only Doctor Unassigned, Hosmer [facility] 1.2.840.114 350.1.13.10 4.2.7.2.686 [id number] [facility] 2020-03-29 00:00:00 2020-03-29 00:00:00 Orders Only Doctor Unassigned, Hosmer [facility] 1.2.840.114 350.1.13.10 4.2.7.2.686 [id number] [facility] 2020-02-19 15:07:18 2020-02-19 19:22:00 Emergency Stephanie Oneal [facility] 1.2.840.114 350.1.13.10 4.2.7.2.686 [id number] [facility] 2020-02-19 14:53:00 2020-02-19 14:53:00 Emergency X [facility] ERT [id number] [facility] 2020-02-19 00:00:00 2020-02-19 00:00:00 Orders Only Doctor Unassigned, Hosmer [facility] 1.2840.114 350.1.13.10 4.2.7.2.686 [id number] [facility] 2019-11-08 00:00:00 2019-11-08 00:00:00 Transition of Care Hortensia Nicolas 1.2.840.114 350.1.13.10 4.2.7.2.686 [id number] [facility] 2019-11-03 09:25:15 2019-11-06 12:00:00 Hospital Encounter Ervin Rhoades Luis Arshad [facility] 1.2840.114 350.1.13.10 4.2.7.2.686 [id number] [facility] 2019-11-03 09:25:15 2019-11-06 12:00:00 Inpatient X LUIS ARSHAD [facility] [id number] [facility] Results Test Description Test Time Test Comments Results Result Co mments Source [facility] (NA, K, CL, CO2, GLUCOSE, BUN, CREATININE, CA)2022-06-21 16:50:52* Test Item Value Reference Range Interpretation Comme nts NA (test code = 7647844358) 137 mmol/L 135-145 K (test code = 4933550261) 4.6 mmol/L 3.5-5 CL (test code = 7238665508) 97 mmol/L 98-108 L CO2 TOTAL (test code = 4158777432) 30 mmol/L 23-31 AGAP (test code = 5444545704) 2-16 BUN (test code = 5221702114) 11 mg/dL 7-23 GLUCOSE (test code = 0446356217) 214 mg/dL 70-110 H CREATININE (test code = 9028949525) 1.16 mg/dL 0.6-1.25 CALCIUM (test code = 8856005845) 8.5 mg/dL 8.6-10.6 L eGFR (test code = 4021342866) mL/min/1.73m2 KATE (test code = KATE) Association of [...] imaging tests). Lab Interpretation (test code = 25177-0) Abnormal [facility] WITH [id number] 16:39:51* Test Item Value Reference Range Interpretation Comme nts WBC (test code = 6690-2) See_Comment [Automated [employer]] The system which generated this result transmitted reference range: 4.20 - 10.70 10*3/?L. The reference range was not used to interpret this result as normal/abnormal. RBC (test code = 789-8) See_Comment H [Automated [employer]] The system which generated this result transmitted reference range: 4.26 - 5.52 10*6/?L. The reference range was not used to interpret this result as normal/abnormal. HGB (test code = 718-7) 16.7 g/dL 12.2-16.4 H HCT (test code = 4544-3) 49.7 % 38.4-49.3 H MCV (test code = 787-2) 79.0 fL 81.7-95.6 L MCH (test code = 785-6) 26.6 pg 26.1-32.7 MCHC (test code = 786-4) 33.6 g/dL 31.2-35 RDW-SD (test code = 92705-0) 37.0 fL 38.5-51.6 L RDW-CV (test code = 788-0) 13.2 % 12.1-15.4 PLT (test code = 777-3) See_Comment [Automated messa ge] The system which generated this result transmitted reference range: 150 - 328 10*3/?L. The reference range was not used to interpret this result as normal/abnormal. MPV (test code = 91855-0) 11.1 fL 9.8-13 NRBC/100 WBC (test code = 8426227785) See_Comment [Automated [employer] ssage] The system which generated this result transmitted reference range: 0.0 - 10.0 /100 WBCs. The reference range was not used to interpret this result as normal/abnormal. NRBC x10^3 (test code = 2494207383) See_Comment [Automated messa ge] The system which generated this result transmitted reference range: 10*3/?L. The reference range was not used to interpret this result as normal/abnormal. GRAN MAT (NEUT) % (test code = 770-8) 67.3 % IMM GRAN % (test code = 4251639521) 0.20 % LYMPH % (test code = 736-9) 23.5 % MONO % (test code = 5905-5) 5.7 % EOS % (test code = 713-8) 2.6 % BASO % (test code = 706-2) 0.7 % GRAN MAT x10^3(ANC) (test code = 6127640378) 3.93 10*3/uL 1.99-6.95 IMM GRAN x10^3 (test code = 9837945374) 0-0.06 LYMPH x10^3 (test code = 731-0) 1.37 10*3/uL 1.09-3.23 MONO x10^3 (test code = 742-7) 0.33 10*3/uL 0.36-1.02 L EOS x10^3 (test code = 711-2) 0.15 10*3/uL 0.06-0.53 BASO x10^3 (test code = 704-7) 0.04 10*3/uL 0.01-0.09 Lab Interpretation (test code = 27060-6) [facility]40[facility]2020-04-07 03:03:00* Test Item Value Reference Range Interpretation Comme nts NA (test code = 9667242829) 139 mmol/L 135-145 K (test code = 4381367454) 4.4 mmol/L 3.5-5 CL (test code = 7246733103) 101 mmol/L 98-108 CO2 TOTAL (test code = 3681274279) 28 mmol/L 23-31 AGAP (test code = 7845581386) 2-16 BUN (test code = 3899425805) 11 mg/dL 7-23 GLUCOSE (test code = 4685256381) 225 mg/dL 70-110 H CREATININE (test code = 5222651934) 0.98 mg/dL 0.6-1.25 TOTAL BILI (test code = 3576937577) 0.5 mg/dL 0.1-1.1 CALCIUM (test code = 2446130966) 9.6 mg/dL 8.6-10.6 T PROTEIN (test code = 7806153389) 8.2 g/dL 6.3-8.2 ALBUMIN (test code = 9331789062) 4.7 g/dL 3.5-5 ALK PHOS (test code = 7252557685) 75 U/L 34-122 ALTv (test code = 1742-6) 74 U/L 5-50 H AST(SGOT) (test code = 6766762900) 39 U/L 13-40 eGFR Calculation (Non-) (test code = 8987100866) mL/min/1.73m2 eGFR Calculation () (test code = 1311596489) mL/min/1.73m2 KATE (test code = KATE) Association of [...] imaging tests). Lab Interpretation (test code = 26317-1) Abnormal [facility] WITH [id number] 02:12:00* Test Item Value Reference Range Interpretation Comme nts WBC (test code = 6690-2) See_Comment [[employer]] The system which generated this result transmitted reference range: 4.20 - 10.70 10*3/?L. The reference range was not used to interpret this result as normal/abnormal. RBC (test code = 789-8) See_Comment H [Automated [employer]] The system which generated this result transmitted reference range: 4.26 - 5.52 10*6/?L. The reference range was not used to interpret this result as normal/abnormal. HGB (test code = 718-7) 15.7 g/dL 12.2-16.4 HCT (test code = 4544-3) 47.7 % 38.4-49.3 MCV (test code = 787-2) 81.1 fL 81.7-95.6 L MCH (test code = 785-6) 26.7 pg 26.1-32.7 MCHC (test code = 786-4) 32.9 g/dL 31.2-35 RDW-SD (test code = 63099-3) 36.4 fL 38.5-51.6 L RDW-CV (test code = 788-0) 12.5 % 12.1-15.4 PLT (test code = 777-3) See_Comment [Automated [employer]] The system which generated this result transmitted reference range: 150 - 328 10*3/?L. The reference range was not used to interpret this result as normal/abnormal. MPV (test code = 49257-8) 11.5 fL 9.8-13 NRBC/100 WBC (test code = 6925327230) See_Comment [Automated [employer] ssage] The system which generated this result transmitted reference range: 0.0 - 10.0 /100 WBCs. The reference range was not used to interpret this result as normal/abnormal. NRBC x10^3 (test code = 3995084716) <0.01 See_Comment [Automated [employer]] The system which generated this result transmitted reference range: 10*3/?L. The reference range was not used to interpret this result as normal/abnormal. GRAN MAT (NEUT) % (test code = 770-8) 68.0 % IMM GRAN % (test code = 4991033103) 0.40 % LYMPH % (test code = 736-9) 23.8 % MONO % (test code = 5905-5) 4.7 % EOS % (test code = 713-8) 2.7 % BASO % (test code = 706-2) 0.4 % GRAN MAT x10^3(ANC) (test code = 3844991406) 5.24 10*3/uL 1.99-6.95 IMM GRAN x10^3 (test code = 4365312498) 0.03 10*3/uL 0-0.06 LYMPH x10^3 (test code = 731-0) 1.83 10*3/uL 1.09-3.23 MONO x10^3 (test code = 742-7) 0.36 10*3/uL 0.36-1.02 EOS x10^3 (test code = 711-2) 0.21 10*3/uL 0.06-0.53 BASO x10^3 (test code = 704-7) 0.03 10*3/uL 0.01-0.09 Lab Interpretation (test code = 53973-1) [facility]2020-[facility]-07 01:40:00* Test Item Value Reference Range Interpretation Comme nts SARS-CoV-2 Rapid ID NOW (test code = 61636-5) Not Detected Not Detected KATE (test code = KATE) ID NOW COVID-19 As say is an isothermal nucleic acid amplification test intended for the qualitative detection of nucleic acid from SARS-CoV-2 viral RNA in nasopharyngeal (UNDERCOLLAR MAKER) specimens. It is used under Emergency [...] patient testing if clinically indicated. Lab Interpretation (test code = 46591-1) [facility] [id number] 01:06:58 FINDINGS/IMPRESSION:: Frontal and lateral radiographs of the neck soft tissues were performed. No radiopaque foreign body identified. The oropharyngeal and nasopharyngealairways are patent. The prevertebral soft tissues are unremarkable. Mild spondylotic changes at C5-C6. Cervical spine is otherwise unremarkable. EXAM: XR NECK SOFT TISSUE HISTORY: esophageal fb COMPARISON: None. [facility], Radiant Results Inft User - 04/06/2020 8:08 PM CDTEXAM: XR NECK SOFT TISSUEHISTORY: esophageal fb COMPARISON: None.IMPRESSIONFINDINGS/IMPRESSION:: Frontal and lateral radiographs of the neck soft tissues were performed.No radiopaque foreign body identified. The oropharyngeal and nasopharyngealairways are patent. The prevertebral soft tissues are unremarkable.Mild spondylotic changes at C5-C6. Cervical spine is otherwiseunremarkable.[facility] GLUCOSE (AUTOMATED)2020-02-19 23:08:00* Test Item Value Reference Range Interpretation Comme nts POCT GLU (test code = 2073679472) 243 mg/dL 70-110 H Lab Interpretation (test cod e = 55457-3) Abnormal [facility] GLUCOSE (AUTOMATED)2020-02-19 21:58:00* Test Item Value Reference Range Interpretation Comme nts POCT GLU (test code = 6200751592) 313 mg/dL 70-110 H Lab Interpretation (test cod e = 73685-3) [facility]ID [facility]2020-02-19 21:31:00* Test Item Value Reference Range Interpretation Comme nts SARS-CoV-2 Rapid ID NOW (test code = 62176-1) Not Detected Not Detected KATE (test code = KATE) ID NOW COVID-19 As say is an isothermal nucleic acid amplification test intended for the qualitative detection of nucleic acid from SARS-CoV-2 viral RNA in nasopharyngeal (UNDERCOLLAR MAKER) specimens. It is used under Emergency [...] patient testing if clinically indicated. Lab Interpretation (test code = 14049-0) Normal [facility]. METABOLIC PANEL (05851)2020-02-19 21:29:00* Test Item Value Reference Range Interpretation Comme nts NA (test code = 3413573423) 134 mmol/L 135-145 L K (test code = 4330775883) 4.1 mmol/L 3.5-5 CL (test code = 9071416745) 99 mmol/L 98-108 CO2 TOTAL (test code = 0732842339) 27 mmol/L 23-31 AGAP (test code = 2050659098) 2-16 BUN (test code = 6089896155) 10 mg/dL 7-23 GLUCOSE (test code = 5812788083) 372 mg/dL 70-110 H CREATININE (test code = 9097334794) 0.96 mg/dL 0.6-1.25 TOTAL BILI (test code = 3488617381) 0.4 mg/dL 0.1-1.1 CALCIUM (test code = 8468776241) 9.2 mg/dL 8.6-10.6 T PROTEIN (test code = 5223600696) 7.5 g/dL 6.3-8.2 ALBUMIN (test code = 8093573468) 4.5 g/dL 3.5-5 ALK PHOS (test code = 2815395435) 86 U/L 34-122 ALTv (test code = 1742-6) 48 U/L 5-50 AST(SGOT) (test code = 6856078930) 27 U/L 13-40 eGFR Calculation (Non-) (test code = 1128452335) mL/min/1.73m2 eGFR Calculation () (test code = 0739866464) mL/min/1.73m2 KATE (test code = KATE) Association of [...] imaging tests). Lab Interpretation (test code = 48965-3) Abnormal [facility] WITH [id number] 21:06:00* Test Item Value Reference Range Interpretation Comme nts WBC (test code = 6690-2) See_Comment [Automated [employer]] The system which generated this result transmitted reference range: 4.20 - 10.70 10*3/?L. The reference range was not used to interpret this result as normal/abnormal. RBC (test code = 789-8) See_Comment H [Automated [employer]] The system which generated this result transmitted reference range: 4.26 - 5.52 10*6/?L. The reference range was not used to interpret this result as normal/abnormal. HGB (test code = 718-7) 15.1 g/dL 12.2-16.4 HCT (test code = 4544-3) 45.2 % 38.4-49.3 MCV (test code = 787-2) 79.4 fL 81.7-95.6 L MCH (test code = 785-6) 26.5 pg 26.1-32.7 MCHC (test code = 786-4) 33.4 g/dL 31.2-35 RDW-SD (test code = 52587-5) 36.3 fL 38.5-51.6 L RDW-CV (test code = 788-0) 12.9 % 12.1-15.4 PLT (test code = 777-3) See_Comment [Automated [employer]] The system which generated this result transmitted reference range: 150 - 328 10*3/?L. The reference range was not used to interpret this result as normal/abnormal. MPV (test code = 62201-4) 11.3 fL 9.8-13 NRBC/100 WBC (test code = 0413742760) See_Comment [Automated me ssage] The system which generated this result transmitted reference range: 0.0 - 10.0 /100 WBCs. The reference range was not used to interpret this result as normal/abnormal. NRBC x10^3 (test code = 2485209691) <0.01 See_Comment [Automated messa ge] The system which generated this result transmitted reference range: 10*3/?L. The reference range was not used to interpret this result as normal/abnormal. GRAN MAT (NEUT) % (test code = 770-8) 79.8 % IMM GRAN % (test code = 2871410934) 0.50 % LYMPH % (test code = 736-9) 13.4 % MONO % (test code = 5905-5) 4.2 % EOS % (test code = 713-8) 1.8 % BASO % (test code = 706-2) 0.3 % GRAN MAT x10^3(ANC) (test code = 0138389209) 8.49 10*3/uL 1.99-6.95 H IMM GRAN x10^3 (test code = 6154830877) 0.05 10*3/uL 0-0.06 LYMPH x10^3 (test code = 731-0) 1.42 10*3/uL 1.09-3.23 MONO x10^3 (test code = 742-7) 0.45 10*3/uL 0.36-1.02 EOS x10^3 (test code = 711-2) 0.19 10*3/uL 0.06-0.53 BASO x10^3 (test code = 704-7) 0.03 10*3/uL 0.01-0.09 Lab Interpretation (test code = 20804-1) Abnormal [facility] GLUCOSE (AUTOMATED)2019-11-06 13:38:00* Test Item Value Reference Range Interpretation Comme nts POCT GLU (test code = 8001869868) 116 mg/dL 70-110 H Lab Interpretation (test cod e = 86545-3) Abnormal [facility] GLUCOSE (AUTOMATED)2019-11-06 12:29:00* Test Item Value Reference Range Interpretation Comme nts POCT GLU (test code = 7691605603) 322 mg/dL 70-110 H Lab Interpretation (test cod e = 45363-4) Abnormal [facility] GLUCOSE (AUTOMATED)2019-11-06 12:29:00* Test Item Value Reference Range Interpretation Comme nts POCT GLU (test code = 3435121752) 230 mg/dL 70-110 H Lab Interpretation (test cod e = 09078-2) Abnormal [facility] GLUCOSE (AUTOMATED)2019-11-06 02:00:00* Test Item Value Reference Range Interpretation Comme nts POCT GLU (test code = 7261404804) 155 mg/dL 70-110 H Notified Provide r Lab Interpretation (test code = 71314-1) [facility] [id number] 00:02:00* Test Item Value Reference Range Interpretation Comme nts Case Report (test code = 3680888332) Surgical Pathology ?Case: [id number] ? Authorizing Provider: ?Yonatan Lund MD ? ? ? Collected: ? 11/03/2019 1426 ?Ordering Location: ? ? [facility] ? ? ?Received: ?11/03/2019 1555 ? [facility] ?Pathologist: ? Klaus Tinoco MD ? Specimen: ? ?APPENDIX, appendix ? Final Diagnosis (test code = 8957235102) [id number] FuZzEwMzNcZnRuYmpcdWMx JVzgjvKtTSokr4BzD5PsKb AwMFxhbnNpXGRlZmxhbmcx WQWsKPO2olWzEWEpAEkaPH FlULgbUk1hjUMmuUmpHnWl ABSjm8ufgrKYrguyuDp1x8 qfVSFfVqC9aYRmYYkqJ7jp urDhhWHcVMPrXOo9jO65TT SitZ4ujYVvQZozjbElNYlg lfFpmyJpMxl1RVQlI2eyQM CxZESsS1WvIP3kTZJxIlb9 GZP6ZKE5mCfzb9L6cYZovM IrgIieGaRbWwQdSFYSl7Yo RSb3hElsH6NiQZQvKiW3aW QgUGFyYWdyYXBoIEZvbnQ7 cE17WMuguuW3eOYgn4Wic7 7bb614uF8wlCQiHEB6SOHo GGPqrBPvTWHdCPX0MYHyjC SwX9pyNJzfIR0rmjvyPMI2 MFxtYXJndDcyMFxtYXJnYj MqnDSuYSHzeJmaLQmbf437 XMU7IbCyIB3lL5Dcj3X4gO 9maXRcZGVmdGFiNzIwXGZv qo0rpAZxFGsbc8UrMOZ7qd U8fTNzlHDhFEBgMI97Sagb t3TiKvsaDRR9IERrgrAxj9 Lml5wiHpSqynAvF3pjG7Qv ZHJoZWFkXHBnYnJkcmZvb3 Sxi5PskIChxAg0a1hbGTTx DUJvpGrbi4usEZP8SFQmG4 N1nLKdo2xvMRriIZDihNI7 edDqYJSgpASfX5CsaK0gED snES1hduh3c2ixGiOcGG6w wqyfr3fbPGtsKIOdWDC0Ux BkEUKjb7DchcfyVoZap1Aj jXLaZUvfV06sv985UGUpuj IvX2gcpWWepaescEYmfkdq MFxmczIwXHFsXHBsYWluXG HnXQQtDgIfsOeeqM9iToUh ZnMyMFxwYXJccGFyZFxwbG FpblxmMFxmczIwXHBsYWlu XPCsKZEeRgHqNP2xYBZUIS 9WCEooVDIXEDCFBOJGFN5U WTpccGFyXHFsXHBsYWluXG VcFFVmAbEcrIkiqA1mNhSc LyBuAEXwFDZiVT3oENIRRH RgDCQAMX9EWVIVYYtUBIcC QCnwXDQNGY9YZVRNKnYPC3 lUSVNccGFyXHBhciBNYXR0 rRT1WSXkrXItXZSBYEijHL PsfBgwwD6qCkLuWbTwImql XM0fCXSxX6nreORhTGCcNV EdW3jgVmYztG1moUkwZVsr ZjFcZnMyMiBIYXJzaHdhcm QpFB1uSBkjn6NjLRMRRJTz Oz3kKA8jCMMvIIQ3KuKgQI BNXHBsYWluXGYxXGZzMjBc oAQlvQzbsmOrOVaui4HhV2 YyMjAwMFxhbnNpXGRlZmxh yllrVKYpWVE9aeAeROAjKN teEPJtUYakOa6kkHXkaYek RqVpZXZfi6knikJHKKpyVd IrM250JZAjYXzsg9hzr7Mp PLYsqDKzl8Z4JZTJpezanK k0b7fjOsTgIsT9iDZlVXyh H5msxuPzpAXkG5FskSBolP i0pCfeV59od4X7WodnU7xd PXFgMLGiO5TnAX6yDHVwJi z8KIC2YSZ0EMVsFTWgG8Gm NK5wKLVgsPQrCTk0j1vedT zdIKCvUHD5t8tbMWgckyB1 FK8fgg9upPt8q4hkmbClKO RbBOMdaHMSDTCiU6AhkZlx Lv6rjGl7rNulWfynANG6Jo p5YV5wqg35bxa7rLwiNEQe bvwfPiJ9EMxqBSDmskcdFX p1ATorMDCaiZA9IEVwhCXm B9FrCABvDU8rnwq6YQC4DK oeQWRmQxD0DINkeKCwRPHf cUprWIrwa090VSA1JlXhOQ 0cH7Rqg0B8hL2hpRDiDSQq xAMhMbPhNYKxoj4mhJMfBU oxn9IlUDD0icY5dUQckGMo PYBuXT20Idszd1DdYemzGS T5OMUodoOwg9Izh1obAnVp pyRaH3qpP5EjNQNvHNRzBI GzZbVxxhJln2Gyd3RzoNPg oMi4f1vkBMEpYVTviSqls1 rnCZY3XLXrA1S1gWRfh6wf AZwaOOJtnQF1xaO4NNZxsE FbY1NtyI4sJIKuUX8wdiv0 g9spPOV2EKhhMQCrOqQ0ms X4TAYbgHSxYMTaqCipGHua w053QCE9WaQfSCSwo9ZhM2 ZxfQnrL44jxKkxX65sKYJd gRillD8huNffnX6pRpXsFc MyNFxxbFxwbGFpblxmMVxm czIwXGxhbmcxMDMzXGhpY2 nqOhAoJZUymIzpTXpez1Vm XGYxXGNmMlxmczIwXHBhci IMFSpubpPxtXXsw06qCMhs eSByZXZpZXdlZCBhbGwgc3 ZuH3wzMT0cW9BqqQAdteBg rjDdJWtzTJGzv0l8tPUepZ nvw1LbdYDqGP84liPjJWQm BMX7URRwf4gzLM37svldDi PrzY62jqEnycEwRPKtf7zx E2ixaNWes6Vus4IxtmRiJS rzl3XlAA2joMMawfxhgXX1 SMGguWPwdfZjrkI7gWppSE JcyX6zhX5dmNcbkR0hRrNr PgKpHVkzYS6pGXQlZ0krkE VcAESgKKYmO3laGvPjeK3r xGgtSulncfD8TMVrju50 Clinical Information (test code = 1584082704) Acute abdomen Gross Description (test code = 7863073508) o7pyqLRnOHMncYEtKyWqPQ KgYYYhr0nmWVZmvPIxGjDs MzNcZnRuYmpcdWMxXGRlZm Jzw4nkc815tZHss0msARHo LiW2hWUsNPJhdCFkH119RA ElCUxfs5aaf6KdKPSufWWj m7P9NYSVqzgskSg5mRghW1 9qs6Z3XeiuQ4rxTOPiOKsf AFGwCWmmiSNhOPC7JMGdEV G3JDigebZhvdN1ZZnlxGSx WpP0LIx8b6wshYdyVOYwHR M0h7zjVNowrxAcNI3opy6r dOk9j3vmkxNuUPZhHTQjdW RNREIlA2BzaXjtRm7rcJm0 mCntMfhyPLX1Xzp1HH6zsn 54aru6fBenXEBrsrltLoE6 CIeyKTZvvfvqMEh3KQnqZY FibZLoTXUwlEEqL0AoIDcn RJ3iyyb7ZzBbCL5kpwkuGU neIIBtSZL5DxFhJWZhn6Hs hzjeFiXbyp5ifb66XKN2c4 BkaYshHMU7VYE2BiZgOd5b yDUkMSSkKE5fNqRjuSUwEC Drxp40mZzqFOlivtDopN2c XqTfTHScgCKsECPlOR9ruY VzLGQseI4iqwhaILOjYjBm fmdnSUYhmVhbobGvLb9ylT qpKFM9CQkfU1xrtL4xJpX9 CCjgZ8npqU3uBVl7DKalqH D1WMKssW7vXS6uqmqux4pt CXI5ZToqSUMcqfY2gvYcFN OobHGaD3NbiI84LtTdaREi M7NmhT4qBDjsTPGvatu8Sj AqQt9oxGUfmQD6IAgeLbxd YWdlXHBnbmNvbnRccGduZG VjXHBsYWluXHBsYWluXGYw VFDnSlRpt7TwNPLmk7nhOz Wqm9eqvSk1FSyiuUuofOKm blxmMFxmczIwXHBsYWluXG PgPEAcTbZnD9SvK0nxGX6w QSBpcyByZWNlaXZlZCBpbi Toe8ZtZFpptuCdXUDojLan CRI1cXZhXRQiXYKbALPjBL 50XHBsYWluXGYxXGZzMjBc bCtfXPnpAEf7UunfdNWpcp xmMVxmczIwIHMgbmFtZSwg VUggbnVtYmVyICJhcHBlbm RpeFxwbGFpblxmMVxmczIw TAH7PkTjDRdnUNBvgAbqkC 9jJaZdIvOkJJMcEO0vUUPb ufEhk1VbGW2uLKHmiVfunw 54CQ6dwyZvcFzyf4BdGAZq nMObSHq2HOd2WkjhW88etH 0twQSfW6BtGUtwVU00ZIHs OCBjbSBpbiBkaWFtZXRlci jtf7p6wKBtjOQtX9odKXI1 GKhex2fshJ0xlKsjaEVsOY Xml0C1qKUbINLfTNLqNDBb LP1tmWdtDWVvOGU3ZSUwNJ V1LSYqNQAlxQynIAUImKNa UWPzRM8liRexy7Bta8HhCT ckr9MaQWUmklG5xMJaGEI8 gZSanXAgYYJuhnNtjFO2hS VudCBleHVkYXRlLiBUaGUg BCVfYA3pfJsfxBAhc7JkfM MdrHgwc1NjrSjebjHqNCBh IHJldmVhbCBhIHBhdGVudC YncT9hqutzkkRoQ9ncGwMu ot7dYCUtwhWusP43RQEwGM NvWfZrdBglI42tjSOkxyzc SxLmL7MmuQNoPZ2slrJzDX dlLiAgVGhlIHdhbGwgdGhp U1nvIQEnLPEfdtavnrDelg 0tPZNaBN0vRzBnM05hNQHb cnVwdHVyZSBzaXRlIGlzIG aef1CpjPekuPBlkuRmDmuw KIptSY7yJSDqSNAxj42tcZ hqJL35F95kCKxmkmTmHZN0 xY5jRC7ynzurvo5fDzRobd FrPX56DQPwcpYpv7AifDej jbSsa2zrQ4mukU2khKLeHH Aepa6jzxDcWZS1iK1crdry fEtwFPTwdOEajH9xCZFuya HmSNO2dS2jGE2clivxpoMg bmQgZGlzdGFsIHRpcCBhcm Lrr0TlrPi0hURuXJbsDGAg LUEyLlxwYXJccGFyZFxwbG FpblxmMFxmczIwXHBsYWlu XGYxXGZzMjAgSnVsaWUgTW XUeVuupsS9LXFROCgdIVG8 Embedded Images (test code = 1291827830) [facility] GLUCOSE (AUTOMATED)2019-11-05 22:19:00* Test Item Value Reference Range Interpretation Comme nts POCT GLU (test code = 3408574311) 115 mg/dL 70-110 H Lab Interpretation (test cod e = 53837-4) Abnormal [facility] GLUCOSE (AUTOMATED)2019-11-05 18:23:00* Test Item Value Reference Range Interpretation Comme nts POCT GLU (test code = 4117065568) 197 mg/dL 70-110 H Lab Interpretation (test cod e = 65020-3) Abnormal [facility] GLUCOSE (AUTOMATED)2019-11-05 17:33:00* Test Item Value Reference Range Interpretation Comme [facility] POCT GLU (test code = 3925971322) 125 mg/dL 70-110 H Lab Interpretation (test cod e = 60761-5) Abnormal [facility] GLUCOSE (AUTOMATED)2019-11-05 13:28:00* Test Item Value Reference Range Interpretation Comme [facility] POCT GLU (test code = 9537862480) 130 mg/dL 70-110 H Lab Interpretation (test cod e = 49846-4) Abnormal [facility] METABOLIC PANEL (NA, K, CL, CO2, GLUCOSE, BUN, CREATININE, CA)2019-11-05 12:11:00* Test Item Value Reference Range Interpretation Comme [facility] NA (test code = 0301745075) 137 mmol/L 135-145 K (test code = 4746504578) 3.6 mmol/L 3.5-5 CL (test code = 5415154286) 100 mmol/L 98-108 CO2 TOTAL (test code = 7706701766) 30 mmol/L 23-31 AGAP (test code = 7683452829) 2-16 BUN (test code = 1828268776) 14 mg/dL 7-23 GLUCOSE (test code = 0535079867) 164 mg/dL 70-110 H CREATININE (test code = 9220287839) 0.81 mg/dL 0.6-1.25 CALCIUM (test code = 2907075480) 8.6 mg/dL 8.6-10.6 eGFR Calculation (Non-) (test code = 7970852153) mL/min/1.73m2 eGFR Calculation () (test code = 9301784732) mL/min/1.73m2 KATE (test code = KATE) Association of [...] imaging tests). Lab Interpretation (test code = 75356-0) Abnormal [facility] WITH [id number] 11:39:00* Test Item Value Reference Range Interpretation Comme nts WBC (test code = 6690-2) See_Comment [[employer]] The system which generated this result transmitted reference range: 4.20 - 10.70 10*3/?L. The reference range was not used to interpret this result as normal/abnormal. RBC (test code = 789-8) See_Comment [[employer]] The system which generated this result transmitted reference range: 4.26 - 5.52 10*6/?L. The reference range was not used to interpret this result as normal/abnormal. HGB (test code = 718-7) 14.2 g/dL 12.2-16.4 HCT (test code = 4544-3) 42.9 % 38.4-49.3 MCV (test code = 787-2) 82.3 fL 81.7-95.6 MCH (test code = 785-6) 27.3 pg 26.1-32.7 MCHC (test code = 786-4) 33.1 g/dL 31.2-35 RDW-SD (test code = 29543-9) 38.7 fL 38.5-51.6 RDW-CV (test code = 788-0) 13.0 % 12.1-15.4 PLT (test code = 777-3) See_Comment [Automated messa ge] The system which generated this result transmitted reference range: 150 - 328 10*3/?L. The reference range was not used to interpret this result as normal/abnormal. MPV (test code = 34217-3) 11.5 fL 9.8-13 NRBC/100 WBC (test code = 2438571924) See_Comment [Automated me ssage] The system which generated this result transmitted reference range: 0.0 - 10.0 /100 WBCs. The reference range was not used to interpret this result as normal/abnormal. NRBC x10^3 (test code = 9555412009) <0.01 See_Comment [Automated messa ge] The system which generated this result transmitted reference range: 10*3/?L. The reference range was not used to interpret this result as normal/abnormal. GRAN MAT (NEUT) % (test code = 770-8) 83.5 % IMM GRAN % (test code = 3218205970) 0.30 % LYMPH % (test code = 736-9) 9.3 % MONO % (test code = 5905-5) 5.7 % EOS % (test code = 713-8) 1.1 % BASO % (test code = 706-2) 0.1 % GRAN MAT x10^3(ANC) (test code = 5077750708) 7.74 10*3/uL 1.99-6.95 H IMM GRAN x10^3 (test code = 2358152695) 0.03 10*3/uL 0-0.06 LYMPH x10^3 (test code = 731-0) 0.86 10*3/uL 1.09-3.23 L MONO x10^3 (test code = 742-7) 0.53 10*3/uL 0.36-1.02 EOS x10^3 (test code = 711-2) 0.10 10*3/uL 0.06-0.53 BASO x10^3 (test code = 704-7) <0.03 0.01-0.09 Lab Interpretation (test code = 18555-5) Abnormal [facility] GLUCOSE (AUTOMATED)2019-11-05 10:22:00* Test Item Value Reference Range Interpretation Comme nts POCT GLU (test code = 0450523333) 149 mg/dL 70-110 H Lab Interpretation (test cod e = 43975-1) Abnormal [facility] GLUCOSE (AUTOMATED)2019-11-05 06:15:00* Test Item Value Reference Range Interpretation Comme nts POCT GLU (test code = 3604184460) 204 mg/dL 70-110 H Lab Interpretation (test cod e = 70302-0) Abnormal [facility] GLUCOSE (AUTOMATED)2019-11-05 01:48:00* Test Item Value Reference Range Interpretation Comme nts POCT GLU (test code = 0569614500) 227 mg/dL 70-110 H Lab Interpretation (test cod e = 30378-0) Abnormal [facility] GLUCOSE (AUTOMATED)2019-11-04 22:30:00* Test Item Value Reference Range Interpretation Comme nts POCT GLU (test code = 6734888241) 132 mg/dL 70-110 H Lab Interpretation (test cod e = 40348-0) Abnormal [facility] GLUCOSE (AUTOMATED)2019-11-04 17:24:00* Test Item Value Reference Range Interpretation Comme nts POCT GLU (test code = 8952790086) 213 mg/dL 70-110 H Lab Interpretation (test cod e = 84981-0) Abnormal [facility] GLUCOSE (AUTOMATED)2019-11-04 13:31:00* Test Item Value Reference Range Interpretation Comme nts POCT GLU (test code = 4198343228) 203 mg/dL 70-110 H Lab Interpretation (test cod e = 58296-2) Abnormal [facility] GLUCOSE (AUTOMATED)2019-11-04 12:03:00* Test Item Value Reference Range Interpretation Comme nts POCT GLU (test code = 7073097134) 213 mg/dL 70-110 H Lab Interpretation (test cod e = 26796-4) [facility] 23:50:00* Test Item Value Reference Range Interpretation Comments HGB A1C (test code = 4548-4) See_Comment H [Automated message] The system which generated this result transmitted reference range: 4.0 - 6.0 % NGSP. The reference range was not used to interpret this result as normal/abnormal. KATE (test code = KATE) %A1C (NGSP) Interpretation (ADA)4.8-5.6 ? ? Normal or (Non-Diabetic Range)5.7-6.4 ? ? Increased Risk (Pre-Diabetic)>6.5 ?Diabetes Indicated Lab Interpretation (test code = 67918-1) [facility] 23:28:00* Test Item Value Reference Range Interpretation Comme nts POCT GLU (test code = 0463565427) 273 mg/dL 70-110 H Lab Interpretation (test cod e = 74761-5) [facility] [id number] 18:01:52CT Abdomen and Pelvis with intravenous contrast. CLINICAL HISTORY: Abdominal infection including peritonitis. DOSE: Up-to-date CT equipment and radiation dose reduction techniques wereemployed. CTDIvol: 15.15 mGy. DLP: 901 mGy-cm. TECHNIQUE : Contiguous axial imaging from the level of the lung bases through the pubic symphysis were performed after the [...] free fluid. No lymphadenopathy. Pancreas and Adrenals: ?Unremarkable pancreas and adrenal glands. Kidneys and Ureters: ?No visible calculi in the renal collecting systems. No hydroureter or hydronephrosis. Vessels: Unremarkable. Incidental note madeof 2 left renal arteriesarising from the abdominal [...] thoracic vertebral bodies.Mild bilateral hip joint arthritis isnoted, more on the right side. Shapeof the neck and head of both femurs suggests bilateral femoroacetabularimpingement. Soft tissues: Multiple lymph nodes in the superficial inguinal region onboth sides, likely incidental reactive nonspecific adenopathy. CONCLUSION:1. Moderate uncomplicated acute ap pendicitis.2. Hepatosplenomegaly.3. Sliding hiatal hernia. PS: This case was discussed with Dr. Rhoades in the emergency room at 12:00. [facility], Radiant Results Inft User - 11/03/2019 12:02 [...] or in the spleen. Nocalcified gallstones. Biliary ductsand the pancreatic duct appear ofnormal size. 15 mm accessory splenule noted near the hilum of the spleen.Peritoneum: No free air or free fluid. No lymphadenopathy.Pancreas and Adrenals: Unremarkable [...] joint arthritis is noted, more on the rightside. Shapeof the neck and head of both femurs suggests bilateral femoroacetabularimpingement.Soft tissues: Multiple lymph nodes in the superficial inguinal region onboth sides, likely incidental reactive nonspecific adenopathy.CONCLUSION:1. Moderate uncomplicated acute appendicitis.2. Hepatosplenomegaly.3. Sliding hiatal hernia.PS: This case was discussed with Dr. Rhoades in the emergency room at12:00.[facility] [id number] 16:23:00* Test Item Value Reference Range Interpretation Comme nts APPEARANCE (test code = 7283512149) Clear Clear COLOR (test code = 3056294424) Yellow Yellow PH (test code = 4360341332) 4.8-8.0 SP GRAVITY (test code = 2753028255) 1.003-1.030 GLU U QUAL (test code = 1981903792) 500 mg/dL Normal A BLOOD (test code = 6481692812) Negative Negative KETONES (test code = 5606983852) Negative Negative PROTEIN (test code = 2887-8) Negative Negative UROBILIN (test code = 0525310722) Normal Normal BILIRUBIN (test code = 2096162081) Negative Negative NITRITE (test code = 7623380211) Negative Negative LEUK BIANCA (test code = 7069743801) Negative Negative RBC/HPF (test code = 5359147729) See_Comment [Automated [employer]] The system which generated this result transmitted reference range: 0 - 3 HPF. The reference range was not used to interpret this result as normal/abnormal. WBC/HPF (test code = 9167205626) See_Comment [Automated [employer]] The system which generated this result transmitted reference range: 0 - 5 HPF. The reference range was not used to interpret this result as normal/abnormal. BACTERIA (test code = 2187394249) Negative Negative MUCOUS (test code = 3293969098) Slight Negative LPF A SQ EPITH (test code = 7863237630) <1 HPF Lab Interpretation (test code = 45260-1) Abnormal [facility]. METABOLIC PANEL (43319)2019-11-03 16:04:00* Test Item Value Reference Range Interpretation Comme nts NA (test code = 0493280596) 137 mmol/L 135-145 K (test code = 1672761504) 4.3 mmol/L 3.5-5 CL (test code = 4377315295) 98 mmol/L 98-108 CO2 TOTAL (test code = 4200063919) 28 mmol/L 23-31 AGAP (test code = [id number]) 2-16 BUN (test code = 7069203763) 11 mg/dL 7-23 GLUCOSE (test code = 1685173556) 356 mg/dL 70-110 H CREATININE (test code = 6426693728) 1.01 mg/dL 0.6-1.25 TOTAL BILI (test code = 2511710144) 0.9 mg/dL 0.1-1.1 CALCIUM (test code = 7991857320) 9.1 mg/dL 8.6-10.6 T PROTEIN (test code = 5280209678) 7.5 g/dL 6.3-8.2 ALBUMIN (test code = 7115566648) 4.7 g/dL 3.5-5 ALK PHOS (test code = 6632961514) 73 U/L 34-122 ALTv (test code = 1742-6) 38 U/L 5-50 AST(SGOT) (test code = 7665287038) 25 U/L 13-40 eGFR Calculation (Non-) (test code = 3197612107) mL/min/1.73m2 eGFR Calculation () (test code = 6816638910) mL/min/1.73m2 KATE (test code = KATE) Association of [...] imaging tests). Lab Interpretation (test code = 12761-8) [facility] Test Item Value Reference Range Interpretation Comme nts LIPASE (test code = 2212923134) 48 U/L 0-220 Lab Interpretation (test cod e = 17040-3) [facility] [id number] 15:51:00* Test Item Value Reference Range Interpretation Comme nts WBC (test code = 6690-2) See_Comment H [Automated message] The system which generated this result transmitted reference range: 4.20 - 10.70 10*3/?L. The reference range was not used to interpret this result as normal/abnormal. RBC (test code = 789-8) See_Comment H [Automated message] The system which generated this result transmitted reference range: 4.26 - 5.52 10*6/?L. The reference range was not used to interpret this result as normal/abnormal. HGB (test code = 718-7) 15.5 g/dL 12.2-16.4 HCT (test code = 4544-3) 47.4 % 38.4-49.3 MCV (test code = 787-2) 81.7 fL 81.7-95.6 MCH (test code = 785-6) 26.7 pg 26.1-32.7 MCHC (test code = 786-4) 32.7 g/dL 31.2-35 RDW-SD (test code = 35742-4) 37.8 fL 38.5-51.6 L RDW-CV (test code = 788-0) 12.7 % 12.1-15.4 PLT (test code = 777-3) See_Comment [Automated message] The system which generated this result transmitted reference range: 150 - 328 10*3/?L. The reference range was not used to interpret this result as normal/abnormal. MPV (test code = 97274-5) 10.9 fL 9.8-13 NRBC/100 WBC (test code = 4048965937) See_Comment [Automated message] The system which generated this result transmitted reference range: 0.0 - 10.0 /100 WBCs. The reference range was not used to interpret this result as normal/abnormal. NRBC x10^3 (test code = 7292160251) <0.01 See_Comment [Automated message] The system which generated this result transmitted reference range: 10*3/?L. The reference range was not used to interpret this result as normal/abnormal. GRAN MAT (NEUT) % (test code = 770-8) 91.5 % IMM GRAN % (test code = 7280585597) 0.50 % LYMPH % (test code = 736-9) 3.9 % MONO % (test code = 5905-5) 3.8 % EOS % (test code = 713-8) 0.1 % BASO % (test code = 706-2) 0.2 % GRAN MAT x10^3(ANC) (test code = 7382702781) 12.89 10*3/uL 1.99-6.95 H IMM GRAN x10^3 (test code = 5001535493) 0.07 10*3/uL 0-0.06 H LYMPH x10^3 (test code = 731-0) 0.55 10*3/uL 1.09-3.23 L MONO x10^3 (test code = 742-7) 0.54 10*3/uL 0.36-1.02 EOS x10^3 (test code = 711-2) <0.03 0.06-0.53 L BASO x10^3 (test code = 704-7) 0.03 10*3/uL 0.01-0.09 Lab Interpretation (test code = 61350-2) Abnormal [facility]"
[2023-12-12] MEDS ORDERED: dexAMETHasone 10 MG/ML VIAL ONE (16:08)
[2023-12-12] MEDS ORDERED: HYDROMORPHONE HCL 1 MG/ML INJ ONE (16:08)
[2023-12-12] MEDS ORDERED: NA CHLORIDE 0.9% 1,000 ML ONE (16:09)
--- NOTE | 2023-12-12 18:17 | ER ---
Nurse's Notes [facility] Name: Chente Minaya Age: 53 yrs Sex: Male : 1970 Arrival Date: 12/12/2023 Time: 15:52 Bed 4 Private MD: None, None Diagnosis: Headache Presentation: 12/11 16:10 Chief complaint: Patient states: MIGRAINE x3 DAYS. Coronavirus screen: At this time, bp the client does not indicate any symptoms associated with coronavirus-19. Ebola Screen: No symptoms or risks identified at this time. Initial Sepsis Screen: Does the patient meet any 2 criteria? HR > 90 bpm. No. Patient's initial sepsis screen is negative. Does the patient have a suspected source of infection? No. Patient's initial sepsis screen is negative. Risk Assessment: Do you want to hurt yourself or someone else? Patient reports no desire to harm self or others. Onset of symptoms is unknown. 16:10 Method Of Arrival: Ambulatory bp 16:10 Acuity: GILDARDO 3 bp Triage Assessment: 16:17 Headache History: The patient has had previous headaches and this one is similar to bp previous episodes, and this one is more severe than previous episodes. General: Appears in no apparent distress. uncomfortable, Behavior is calm, cooperative, appropriate for age. Pain: Complains of pain in forehead and top of head Pain currently is 10 out of 10 on a pain scale. Pain began 2-3 days ago. Also complains of photophobia. Neuro: Level of Consciousness is awake, alert, obeys commands, Oriented to Appropriate for age. Historical: - Allergies: 16:17 Bactrim; bp 16:17 mushroom; bp 16:17 Mustard; bp 16:17 PENICILLINS; bp 16:17 Reglan; bp 16:17 Sulfa (Sulfonamide Antibiotics); bp 16:17 surgical steel; bp 16:17 tramadol; bp 16:17 Tylenol-Codeine #3; bp 16:17 Tylenol-Codeine #4; bp - PMHx: 16:17 GERD; Migraine; diabetes mellitus; bp - PSHx: 16:17 Appendectomy; bp - Immunization history:: Adult Immunizations up to date. - Social history:: Smoking status: Patient denies any tobacco usage or history of. - Family history:: not pertinent. - Hospitalizations: : No recent hospitalization is reported. Screenin:19 [facility] ED Fall Risk Assessment (Adult) History of falling in the last 3 months, bp including since admission No falls in past 3 months (0 pts). Abuse screen: Denies threats or abuse. Denies injuries from another. Nutritional screening: No deficits noted. Tuberculosis screening: No symptoms or risk factors identified. Assessment: 16:19 General: SEE TRIAGE NOTE. Pain: Complains of pain in forehead and top of head. bp 16:41 Reassessment: No changes from previously documented assessment. Patient is alert, bp oriented x 3, equal unlabored respirations, skin warm/dry/pink. 17:48 Reassessment: Patient appears in no apparent distress at this time. Patient is alert, bp oriented x 3, equal unlabored respirations, skin warm/dry/pink. Vital Signs: 16:10 BP 148 / 94; Pulse 109; Resp 16; Temp 98.4; Pulse Ox 97% ; bp 16:41 BP 140 / 83; Pulse 100; Resp 15; Pulse Ox 95% ; bp 17:48 BP 148 / 93; Pulse 104; Resp 16; Pulse Ox 94% ; bp 18:29 BP 141 / 92; Pulse 99; Resp 16; Pulse Ox 95% ; cp4 Carol Coma Score: 18:15 Eye Response: spontaneous(4). Motor Response: obeys commands(6). Verbal Response: rn oriented(5). Total: 15. ED Course: 15:55 Patient arrived in ED. mr 15:55 Juan A Jarrell MD is Attending Physician. rn 15:55 None, None is Private Physician. mr 16:12 Inserted saline lock: 18 gauge in left antecubital area, using aseptic technique. bc6 16:17 Triage completed. bp 16:17 Arm band placed on. bp 16:19 Patient has correct armband on for positive identification. Provided Education on: N/A. bp 16:20 Elmer Sadler, CORA is Primary Nurse. bp 18:30 No provider procedures requiring assistance completed. intact, bleeding controlled, No cp4 redness/swelling at site. Pressure dressing applied. Administered Medications: 16:05 CANCELLED (Duplicate Order): droperidol2.5 mg IVP once rn 16:20 Drug: NS 0.9% IV 1000 ml IV at 1000 ml once Route: IV; Rate: 1000 ml; Site: left bp antecubital; 16:20 Drug: HYDROmorphone IVP 1 mg IVP once Route: IVP; Site: left antecubital; bp 16:20 Drug: Decadron - Dexamethasone IVP 10 mg IVP once Route: IVP; Site: left antecubital; bp 17:48 Drug: Droperidol IVP 2.5 mg IVP once Route: IVP; Site: left antecubital; bp Medication: 16:19 VIS not applicable for this client. bp Outcome: 18:16 Discharge ordered by . rn 18:30 Discharged to home ambulatory, cp4 18:30 Condition: stable 18:30 Discharge instructions given to patient, Instructed on discharge instructions, follow up and referral plans. Demonstrated understanding of instructions, follow-up care, 18:31 Patient left the ED. cp4 Signatures: Yoselin Dc Reg Reg mr Nieto, Roman, MD MD rn Peltier, Brian, RN RN bp Carowatson, Breana bc6 Potter, Christina cp4
--- NOTE | 2023-12-12 18:17 | EDPHYS ---
Physician Documentation [facility] Name: Chente Minaya Age: 53 yrs Sex: Male : 1970 Arrival Date: 12/12/2023 Time: 15:52 Bed 4 Private MD: None, None ED Physician Juan A Jarrell HPI: 12/11 16:13 This 53 yrs old Male presents to ER via Unassigned with complaints of Headache. rn 16:13 The patient complains of pain to the top of head and forehead. The patient describes rn the headache as aching. Onset: The symptoms/episode began/occurred at an unknown time. Associated signs and symptoms: Pertinent negatives: altered mental status, fever, neck stiffness, rash, vision loss, weakness, vertigo. Severity of symptoms: At its worst the pain was moderate, "similar to past headaches", in the emergency department the pain is unchanged. Headache History: The patient has had previous headaches and this one is similar to previous episodes. The symptoms are alleviated by nothing. the symptoms are aggravated by nothing. The patient has experienced similar episodes in the past, multiple times, chronically, and the symptoms today are exactly the same. The patient has not recently seen a physician. Patient states that he had a falling out with his pain management doctor and has been having daily migraines since he cannot get pain medication.. Historical: - Allergies: 16:17 Bactrim; bp 16:17 mushroom; bp 16:17 Mustard; bp 16:17 PENICILLINS; bp 16:17 Reglan; bp 16:17 Sulfa (Sulfonamide Antibiotics); bp 16:17 surgical steel; bp 16:17 tramadol; bp 16:17 Tylenol-Codeine #3; bp 16:17 Tylenol-Codeine #4; bp - PMHx: 16:17 GERD; Migraine; diabetes mellitus; bp - PSHx: 16:17 Appendectomy; bp - Immunization history:: Adult Immunizations up to date. - Social history:: Smoking status: Patient denies any tobacco usage or history of. - Family history:: not pertinent. - Hospitalizations: : No recent hospitalization is reported. ROS: 16:13 Constitutional: Negative for fever, chills, and weight loss, Neck: Negative for injury, rn pain, and swelling, Cardiovascular: Negative for chest pain, palpitations, and edema, Respiratory: Negative for shortness of breath, cough, wheezing, and pleuritic chest pain, Abdomen/GI: Negative for abdominal pain, nausea, vomiting, diarrhea, and constipation, Back: Negative for injury and pain, MS/Extremity: Negative for injury and deformity, Skin: Negative for injury, rash, and discoloration, Neuro: Negative for weakness, numbness, tingling, and seizure Exam: 16:13 Constitutional: This is a well developed, well nourished patient who is awake, alert, rn and in no acute distress. Head/Face: Normocephalic, atraumatic. Neuro: Awake and alert, GCS 15, oriented to person, place, time, and situation. Cranial nerves II-XII grossly intact. Motor strength 5/5 in all extremities. Sensory grossly intact. Cerebellar exam normal. Normal gait. Vital Signs: 16:10 BP 148 / 94; Pulse 109; Resp 16; Temp 98.4; Pulse Ox 97% ; bp 16:41 BP 140 / 83; Pulse 100; Resp 15; Pulse Ox 95% ; bp 17:48 BP 148 / 93; Pulse 104; Resp 16; Pulse Ox 94% ; bp 18:29 BP 141 / 92; Pulse 99; Resp 16; Pulse Ox 95% ; cp4 Carol Coma Score: 18:15 Eye Response: spontaneous(4). Motor Response: obeys commands(6). Verbal Response: rn oriented(5). Total: 15. MDM: 15:55 Patient medically screened. rn 18:15 Differential diagnosis: hypertensive headache, migraine, tension headache, vasomotor rn headache. Data reviewed: vital signs, nurses notes, old medical records, and as a result, I will discharge patient. Counseling: I had a detailed discussion with the patient and/or guardian regarding the historical points, exam findings, and any diagnostic results supporting the discharge/admit diagnosis, the need for outpatient follow up, to return to the emergency department if symptoms worsen or persist or if there are any questions or concerns that arise at home. Response to treatment: the patient's symptoms have mildly improved after treatment, and as a result, I will discharge patient. Special discussion: I discussed with the patient/guardian in detail that at this point there is no indication for admission to the hospital. It is understood, however, that if the symptoms persist or worsen the patient needs to return immediately for re-evaluation. Based on the history and exam findings, there is no indication for further emergent testing or inpatient evaluation. I discussed with the patient/guardian the need to see the auto customize painter for further evaluation of the symptoms. 12/11 16:04 Order name: IV Start; Complete Time: 16:12 rn Administered Medications: 16:05 CANCELLED (Duplicate Order): droperidol2.5 mg IVP once rn 16:20 Drug: NS 0.9% IV 1000 ml IV at 1000 ml once Route: IV; Rate: 1000 ml; Site: left bp antecubital; 16:20 Drug: HYDROmorphone IVP 1 mg IVP once Route: IVP; Site: left antecubital; bp 16:20 Drug: Decadron - Dexamethasone IVP 10 mg IVP once Route: IVP; Site: left antecubital; bp 17:48 Drug: Droperidol IVP 2.5 mg IVP once Route: IVP; Site: left antecubital; bp Disposition Summary: 12/12/23 18:16 Discharge Ordered Notes: Location: Home rn Problem: new rn Symptoms: have improved rn Condition: Stable rn Diagnosis - Headache rn Followup: rn - With: Private Physician - When: As needed - Reason: Recheck today's complaints, Re-evaluation by your physician Discharge Instructions: - Discharge Summary Sheet rn - Migraine Headache rn - Hypertension, Adult rn Forms: - Medication Reconciliation Form rn - Thank You Letter rn - Antibiotic digital intern - Prescription Opioid Use rn - Patient Portal Instructions rn - Leadership Thank You Letter rn Signatures: Juan A Jarrell MD MD rn Peltier, Brian, RN RN bp Corrections: (The following items were deleted from the chart) 16:05 16:04 Droperidol IVP 2.5 mg IVP once ordered. rn rn
[2023-12-12 19:03] VITALS: BP 141/92; TEMP 98.4; O2SAT 95
== END 2023-12-12 18:31 | disposition home or self-care (01) ==
LOC: ER 15:52
DX: R51.9 Headache, unspecified (principal); Z88.0 Allergy status to penicillin; Z88.1 Allergy status to other antibiotic agents; Z88.2 Allergy status to sulfonamides; Z88.5 Allergy status to narcotic agent; Z88.8 Allergy status to other drugs, medicaments and biological substances; Z91.018 Allergy to other foods; Z91.048 Other nonmedicinal substance allergy status
CPT/HCPCS: 96375; 96374; 99284; J1100; J1170; J7030

== ENCOUNTER 2024-09-15 19:16 | Observation (INO) | payer OTHER ==
--- OUTSIDE RECORDS SUMMARY | 2024-09-15 19:21 | XMS REPORT | Continuity of Care Document ---
Author Name Unknown Address [address] [facility] [address] [place] [address] [facility] thconnect Address [address] [facility] [place] [address] Care Team Providers Care Band Lining Bander Name Role Phone Pcp, Patient Does Not Have A Primary Care Physic alondra YADIEL HAQ Attending Clinician Unavailable YADIEL HAQ Attending Clinician Unavailable Yadiel Haq MD Attending Clinician [phone] VIRI GUZMÁN Attending Clinician Unavailable Adam Servin PA-C Attending Clinician [phone] ADAM SERVIN Attending Clinician Unavailable Doctor Unassigned, [place] Attending Clinician U navailable DAIVD NOVOA Attending Clinician Unavailable ALEXIS DAWN Attending Clinician Unavailable Alexis Dawn MD Attending Clinician [phone] STEPHANIE ONEAL Attending Clinician Unavailable David MILLER Stephanie S Attending Clinician [phone] SILVINA SUN Attending Clinician Unavailable Norberto Bernal MD Attending Clinician [phone] NORBERTO BERNAL Attending Clinician Unavail able NORBERTO BERNAL Attending Clinician Unavail able Yazmin Ahsby Attending Clinician [phone] Yazmin APPLE Attending Clinician Unavailable Hortensia Nicolas Attending Clinician [phone] Ervin Rhoades MD Attending Clinician [phone] Luis Arshad MD Attending Clinician [phone] LUIS ARSHAD Attending Clinician Unavailable STEPHANIE ONEAL Admitting Clinician Unavailable Luis Arshad MD Admitting Clinician [phone] LUIS ARSHAD Admitting Clinician Unavailable Payers Payer Name Policy Type Policy Number Effective Date Expirati on Date Source [employer] [id number] 2021 00:00:00 Problems Condition Name Condition Details Condition Category Status Onset Date Resolution Date Last Treatment Date Treating Clinician Comments Source Abdominal pain Abdominal pain Disease Active 11-04 00:00: 00 [facility] Obesity (BMI 30-39.9) Obesity (BMI 30-39.9) Disease Active 11-03 00:00: 00 [facility] Acute postoperat momo abdominal pain Acute postoperat momo abdominal pain Disease Active 11-03 00:00: 00 [facility] Morbid obesity with body mass index of 50 or higher Morbid obesity with body mass index of 50 or higher Disease Active 2015-09 00:00: 00 [facility] Morbid obesity with body mass index of 40.0-49.9 Morbid obesity with body mass index of 40.0-49.9 Disease Active 2015-09 00:00: 00 [facility] Allergies, Adverse Reactions, Alerts Allergy Name Allergy Type Status Severity Reaction(s) Onset Date Inactive Date Treating Clinician Comments Source METOCLOP RAMIDE DRUG INGREDI Active Other-Cmnt 2021-09 00:00: 00 [facility] Metoclop ramide Propensi ty to adverse reaction s Active Other - See comments 2021-09 00:00: 00 [facility] METFORMI N DRUG INGREDI Active Diarrhea 2021-09 00:00: 00 [facility] Metformi n Drug Allergy Active Diarrhea 2021-09 00:00: 00 [facility] SULFA (SULFONA MIDE ANTIBIOT ICS) Drug Class Active Hives 2018-0 1-21 00:00: 00 [facility] ACETAMIN OPHEN-CO DEINE DRUG Active Hives 2018-0 -21 00:00: 00 [facility] Sulfa (Sulfona mide Antibiot ics) Propensi ty to adverse reaction s Active Hives 2018-0 -21 00:00: 00 [facility] Sulfa (Sulfona mide Antibiot ics) Propensi ty to adverse reaction s Active Hives 2017-0 -21 00:00: 00 [facility] Acetamin ophen-Co deine Propensi ty to adverse reaction s Active Hives 2017-0 10-05 00:00: 00 [facility] Penicill ins Propensi ty to adverse reaction s Active Hives 2011-0 8-10 00:00: 00 [facility] Sulfa Dyne Propensi ty to adverse reaction s Active Hives 2011-0 8-10 00:00: 00 [facility] Penicill ins Propensi ty to adverse reaction s Active Hives 2011-0 8-10 00:00: 00 [facility] PENICILL INS Drug Class Active Hives 2011-0 8-10 00:00: 00 [facility] SULFA DYNE DRUG Active Hives 2011-0 8-10 00:00: 00 [facility] Social History Social Habit Start Date Stop Date Quantity Comments Source History of tobacco use Current smoker [facility] Alcoholic beverage intake 2024-02-29 00:00:00 2024-02-29 00:00:00 Current drinker of alcohol (finding) [facility] Exposure to SARS-CoV-2 (event) 2022-07-02 00:00:00 2022-07-12 20:23:00 Not sure [facility] Alcohol intake 2022-07-12 00:00:00 2022-07-12 00:00:00 Current drinker of alcohol (finding) [facility] History of Social function 2020-04-06 00:00:00 2020-04-06 00:00:00 [facility] History SDOH Financial 2019-11-04 00:00:00 2019-11-04 00:00:00 5 [facility] Tobacco use and exposure 2019-11-03 00:00:00 2019-11-03 00:00:00 Smokeless tobacco non-user [facility] Sex assigned at 1970 00:00:00 1970 00:00:00 [facility] Smoking Status Start Date Stop Date Source Ex-smoker 2019-11-03 00:00:00 2019-11-03 00:00:00 [facility] Medications Ordered Medication Name Filled Medication Name Start Date Stop Date Current Medication? Ordering Clinician Indication Dosage Frequency Signature (SIG) Comments Components Source ketorolac (TORADOL) injection 30 mg 06-06 19:30: 00 06-06 20:32 :00 No 30mg 30 mg, Slow IV Push, ONCE, 1 dose, On 06/06/24 at 1430, Routine [facility] fentanyl PF (SUBLIMAZE (PF)) injection 25 mcg 06-06 18:30: 00 06-06 20:33 :00 No 25ug 25 mcg, Slow IV Push, ONCE, 1 dose, On 06/06/24 at 1330, STAT [facility] ondansetron (ZOFRAN (PF)) injection 4 mg 06-06 18:30: 00 06-06 20:30 :00 No 4mg 4 mg, Slow IV Push, ONCE, 1 dose, On Fri06/06/24 at 1330, MANDEEP [facility] NaCl 0.9% (NS) bolus infusion 1,000 mL 06-06 18:30: 00 06-06 21:41 :00 No 1000mL at 999 mL/hr, 1,000 mL, IV Infusion, ONCE, 1 dose, On 06/06/24 at 1330, STAT [facility] NaCl 0.9% (NS) bolus infusion 1,000 mL 02-28 21:45: 00 02-28 22:22 :00 No 1000mL at 999 mL/hr, 1,000 mL, IV Infusion, ONCE, 1 dose, On Fri02/29/24 at 1645, MANDEEP [facility] ketorolac (TORADOL) injection 15 mg 02-28 21:30: 00 02-28 21:25 :00 No 15mg 15 mg, Slow IV Push, ONCE, 1 dose, On Fri02/29/24 at 1630[facility] 4 mg 02-28 21:30: 00 02-28 21:27 :00 No 4mg 4 mg, Slow IV Push, ONCE, 1 dose, On Fri02/29/24 at 1630, [facility] diphenhydrA MINE (BENADRYL) injection 25 mg 02-28 21:00: 00 02-28 21:28 :00 No 25mg 25 mg, Slow IV Push, ONCE, 1 dose, On Fri02/29/24 at 1600, STAT [facility] dicyclomine 10 mg capsule 02-28 00:00: 00 Yes [id number] 10mg Take 1 capsule by mouth 4 (four) times daily as needed for Abdominal pain. [facility] ketorolac (TORADOL) injection 30 mg 2021-09 03:15: 00 07-13 02:09 :00 No 30mg 30 mg, Slow IV Push, ONCE, 1 dose, On Fri07/12/22 at 2215, Routine [facility] FENTanyl PF (SUBLIMAZE (PF)) injection 50 mcg 2021-09 03:00: 00 07-13 02:09 :00 No 50ug 50 mcg, Intravenou s, ONCE, 1 dose, On Fri07/12/22 at 2200, Routine [facility] NaCl 0.9% (NS) bolus infusion 1,000 mL 2021-09 02:15: 00 07-13 02:40 :00 No 1000mL at 999 mL/hr, 1,000 mL, IV Infusion, ONCE, 1 dose, On Fri07/12/22 at 2115, STAT [facility] ketorolac (TORADOL) injection 30 mg 2021-09 03:30: 00 07-07 02:44 :00 No 30mg 30 mg, Slow IV Push, ONCE, 1 dose, On 07/06/22 at 2230, Routine [facility] NaCl 0.9% (NS) bolus infusion 500 mL 2021-09 02:30: 00 07-07 03:17 :00 No 500mL at 999 mL/hr, 500 mL, IV Infusion, ONCE, 1 dose, On 07/06/22 at 2130, STAT [facility] metoclopram kevin HCl (REGLAN) injection 10 mg 2021-09 02:30: 00 07-07 02:45 :00 No 10mg 10 mg, Slow IV Push, ONCE, 1 dose, On 07/06/22 at 2130, MANDEEP [facility] diphenhydrA MINE (BENADRYL) injection 25 mg 2021-09 02:30: 00 07-07 02:43 :00 No 25mg 25 mg, Slow IV Push, ONCE, 1 dose, On 07/06/22 at 2130, STAT [facility] butorphanol (STADOL) injection 2 mg 2021-09 02:30: 00 07-07 02:20 :00 No 2mg 2 mg, Intramuscu lar, ONCE, 1 dose, On 07/06/22 at 2130, Routine [facility] insulin detemir (LEVEMIR U-100 INSULIN SC) 2021-09 19:49: 26 Yes 30U inject 30 Units under the skin 2 (two) times daily. [facility] NaCl 0.9% (NS) bolus infusion 1,000 mL 2021-09 18:15: 00 06-21 18:52 :00 No 1000mL at 999 mL/hr, 1,000 mL, IV Infusion, ONCE, 1 dose, On Fri06/21/22 at 1315, STAT [facility] ondansetron (ZOFRAN (PF)) injection 4 mg 2021-09 17:15: 00 06-21 17:19 :00 No 4mg 4 mg, Slow IV Push, ONCE, 1 dose, On Fri06/21/22 at 1215, [facility] ketorolac (TORADOL) injection 30 mg 2021-09 0 17:15: 00 06-21 17:20 :00 No 30mg 30 mg, Intramuscu lar, ONCE, 1 dose, On Fri06/21/22 at 1215, [facility] divalproex ER 250 mg 24 hr tablet 04-24 00:00: 00 Yes [id number] 250mg Take 1 tablet by mouth 2 (two) times daily. [facility] water for irrigation irrigation solution 04-07 03:19: 00 Yes PRN, Starting Angelina 04/06/20 at 2219, Until Discontinu ed, Routine, Intra-op [facility] simethicone (GAS RELIEF (SIMETHICON E)) 40 mg/0.6 mL drops 04-07 03:19: 00 Yes PRN, Starting Angelina 04/06/20 at 2219, Until Discontinu ed, Routine, Intra-op [facility] glucagon (GLUCAGEN DIAGNOSTIC KIT) injection 1 mg 04-07 02:45: 00 04-07 01:56 :00 No 1mg 1 mg, Intravenou s, ONCE, 1 dose, Angelina 04/06/20 at 2145, Routine [facility] glucagon (GLUCAGEN DIAGNOSTIC KIT) injection 1 mg 04-07 01:45: 00 04-07 00:47 :00 No 1mg 1 mg, Intravenou s, ONCE, 1 dose, Angelina 04/06/20 at 2045, Routine [facility] HYDROcodone -acetaminop hen (NORCO 5) 5-325 mg tablet 1 tablet 02-19 01:15: 00 02-19 00:11 :00 No 1{tbl} 1 tablet, Oral, ONCE, 1 dose, 02/19/20 at 2015, [facility] NaCl 0.9% (NS) bolus infusion 1,000 mL 02-18 23:00: 00 02-18 23:28 :00 No 1000mL at 999 mL/hr, 1,000 mL, IV Infusion, ONCE, 1 dose, 02/19/20 at 1800, [facility] morpHINE injection 4 mg 02-18 23:00: 00 02-18 22:01 :00 No 4mg 4 mg, Slow IV Push, ONCE, 1 dose, 02/19/20 at 1800, STAT [facility] insulin regular human (HUMULIN R) injection 10 Units 02-18 22:45: 00 02-18 21:54 :00 No 10U 10 Units, Subcutaneo us, ONCE, 1 dose, 02/19/20 at 1745, [facility] NaCl 0.9% (NS) bolus infusion 1,000 mL 02-18 21:45: 02-18 23:27 :00 No 1000mL at 999 mL/hr, 1,000 mL, IV Infusion, ONCE, 1 dose, 02/19/20 at 1645, STAT [facility] ondansetron (ZOFRAN (PF)) injection 4 mg 02-18 21:45: 00 02-18 20:51 :00 No 4mg 4 mg, Slow IV Push, ONCE, 1 dose, 02/19/20 at 1645, MANDEEP [facility] FENTanyl PF (SUBLIMAZE (PF)) injection 25 mcg 02-18 21:45: 00 02-18 20:50 :00 No 25ug 25 mcg, Slow IV Push, ONCE, 1 dose, 02/19/20 at 1645, STAT [facility] clindamycin in 5 % dextrose (CLEOCIN) 900 mg/50 mL IV piggyback RTU 900 mg 02-18 21:45: 00 02-18 21:21 :00 No 900mg 900 mg, IV Piggyback, ONCE, 1 dose, 02/19/20 at 1645, 50 mL
Reas on for Anti-Infec tive: Documented Infection< br>Documen yelena Infection Site: Skin / Soft Tissue
Duration of Therapy: Other (see Comments)< br>Restric yelena use approved by: ADC PROVIDER [facility] acetaminoph en (TYLENOL) tablet 1,000 mg 02-18 21:30: 00 02-18 20:30 :00 No 1000mg 1,000 mg, Oral, ONCE, 1 dose, 02/19/20 at 1630, MANDEEP [facility] traMADol 50 mg tablet 02-18 00:00: 00 Yes [id number] 50mg Take 1 tablet by mouth every 6 (six) hours as needed for Pain (scale 4-6). [facility] clindamycin 150 mg capsule 02-18 00:00: 03-01 04:59 :00 No [id number] 450mg Take 3 capsules by mouth 3 (three) times daily for 10 days. [facility] glipiZIDE 10 mg tablet 11-06 00:00: 00 Yes [id number] 10mg Take 1 tablet by mouth 2 (two) times daily before breakfast and dinner. [facility] HYDROcodone -acetaminop hen 5-325 mg tablet 11-06 00:00: 00 Yes [id number] 1{tbl} Take 1 tablet by mouth every 6 (six) hours as needed for Pain (scale 7-10). [facility] ciprofloxac in HCl 500 mg tablet 11-06 00:00: 11-13 05:59 :00 No [id number] 500mg Take 1 tablet by mouth every 12 (twelve) hours for 7 days. [facility] metroNIDAZO LE 500 mg tablet 11-06 00:00: 11-13 05:59 :00 No [id number] 500mg Take 1 tablet by mouth 2 (two) times daily for 7 days. [facility] HYDROmorpho ne (DILAUDID) injection 1 mg 11-05 15:33: 28 Yes 1mg 1 mg, Slow IV Push, Q6HPRN, Starting Fri11/05/19 at 0933, Until Discontinu ed, Routine, Pain (scale 7-10)
U se approved by (Faculty): ADC PROVIDER [facility] HYDROmorphO ne (DILAUDID) injection 1 mg 11-04 17:03: 17 11-05 15:33 :39 No 1mg 1 mg, Slow IV Push, Q3HPRN, Starting Fri11/04/19 at 1103, Until Fri11/05/19 at 0933, MANDEEP, Pain (scale 7-10)
U se approved by (Faculty): ADC PROVIDER [facility] sennosides (SENOKOT) tablet 8.6 mg 11-04 15:00: 00 Yes 8.6mg 8.6 mg, Oral, DAILY, First dose on Fri11/04/19 at 0900, Until Discontinu ed, Routine [facility] ciprofloxac in in 5 % dextrose (CIPRO) piggyback 400 mg 11-04 07:00: 00 11-04 20:00 :00 No 400mg 400 mg, IV Piggyback, Administer over 60 Minutes, Q12H ABX, 2 doses, First dose on Fri11/04/19 at 0100, Last dose on Fri11/04/19 at 1300, MANDEEP
Re ason for Anti-Infec tive: Documented Infection& lt;br>Docu mented Infection Site: Abdominal< br>Duratio n of Therapy: Other (see Comments) [facility] Sliding Scale Insulin - Aspart (NOVOLOG) + Fsbg Testing 11-04 03:00: 00 Yes Subcutaneo us, TID MEALS+HS, First dose on Fri11/03/19 at 2100, Until Discontinu ed, Routine [facility] docusate (COLACE) capsule 100 mg 11-04 02:00: 00 Yes 100mg 100 mg, Oral, Q12H, First dose on Fri11/03/19 at 2000, Until Discontinu ed, Routine [facility] insulin detemir U-100 (LEVEMIR U-100 INSULIN) injection 30 Units 11-04 01:30: 00 11-04 14:24 :53 No 30U 30 Units, Subcutaneo us, DAILY, First dose on Fri11/03/19 at 1930, Until Discontinu ed, Routine [facility] glipiZIDE (GLUCOTROL) tablet 10 mg 11-04 00:45: 00 Yes 10mg 10 mg, Oral, BIDAC, First dose on Fri11/03/19 at 1845, Until Discontinu ed, Routine [facility] metroNIDAZO LE (FLAGYL I.V.) Piggyback 500 mg 11-03 23:15: 00 11-05 16:06 :00 No 500mg 500 mg, IV Piggyback, Q8H ABX, 6 doses, First dose on Fri11/03/19 at 1715, Last dose on Fri11/05/19 at 0915, 100 mL
Reas on for Anti-Infec tive: Documented Infection< br>Documen yelena Infection Site: Abdominal< br>Duratio n of Therapy: 7 days [facility] HYDROcodone -acetaminop hen (NORCO 5) 5-325 mg tablet 1 tablet 11-03 21:44: 00 Yes 1{tbl} 1 tablet, Oral, Q4HPRN, Starting Fri11/03/19 at 1544, Until Discontinu ed, Routine, Pain (scale 4-6) [facility] morpHINE injection 4 mg 11-03 21:43: 39 11-04 17:06 :17 No 4mg 4 mg, Slow IV Push, Q2HPRN, Starting Fri11/03/19 at 1543, Until Angelina 11/04/19 at 1106, Routine, Pain (scale 7-10) [facility] ondansetron (ZOFRAN (PF)) injection 4 mg 11-03 21:40: 10 Yes 4mg 4 mg, Slow IV Push, Q6HPRN, Starting Fri11/03/19 at 1540, Until Discontinu ed, Routine, Nausea and Vomiting (N/V) [facility] metroNIDAZO LE (FLAGYL I.V.) Piggyback 500 mg 11-03 19:30: 00 11-03 19:55 :00 No 500mg 500 mg, IV Piggyback, ONCE, 1 dose, 11/03/19 at 1330, 100 mL
Reas on for Anti-Infec tive: Documented Infection< br>Documen yelena Infection Site: Abdominal< br>Duratio n of Therapy: Other (see Comments) [facility] ciprofloxac in in 5 % dextrose (CIPRO) piggyback 400 mg 11-03 19:30: 00 11-03 19:43 :00 No 400mg 400 mg, IV Piggyback, Administer over 60 Minutes, ONCE, 1 dose, 11/03/19 at 1330, MANDEEP
Re ason for Anti-Infec tive: Documented Infection< br>Documen yelena Infection Site: Abdominal< br>Duratio n of Therapy: Other (see Comments) [facility] D5W 0.45% NaCl (1/2NS) IV infusion 1,000 mL 11-03 19:15: 00 11-04 01:21 :07 No 1000mL at 125 mL/hr, 1,000 mL, IV Infusion, CONTINUOUS , Starting Fri11/03/19 at 1315, Until Fri11/03/19 at 1921, MANDEEP [facility] FENTanyl PF (SUBLIMAZE (PF)) injection 125 mcg 11-03 18:15: 00 11-03 17:26 :00 No 125ug 125 mcg, Slow IV Push, ONCE, 1 dose, 11/03/19 at 1215, Routine [facility] iohexol (OMNIPAQUE 350 BULK-150 mL) injection 120 mL 11-03 17:32: 00 11-03 17:32 :00 No 120mL 120 mL, Intravenou s, ONCE, 1 dose, 11/03/19 at 1145, Routine [facility] NaCl 0.9% (NS) bolus infusion 1,000 mL 11-03 17:00: 00 11-03 18:28 :00 No 1000mL at 999 mL/hr, 1,000 mL, IV Infusion, ONCE, 1 dose, Fri11/03/19 at 1100, STAT [facility] FENTanyl PF (SUBLIMAZE (PF)) injection 100 mcg 11-03 17:00: 00 11-03 16:06 :00 No 100ug 100 mcg, Slow IV Push, ONCE, 1 dose, Fri11/03/19 at 1100, Routine [facility] ondansetron (ZOFRAN (PF)) injection 4 mg 11-03 17:00: 00 11-03 16:06 :00 No 4mg 4 mg, Slow IV Push, ONCE, 1 dose, Fri11/03/19 at 1100, MANDEEP [facility] cyclobenzap rine 5 mg tablet 2018-09 006 00:00: 00 11-06 00:00 :00 No [id number] 9100 5mg Take 1 tablet by mouth 3 (three) times daily. [facility] traMADol (ULTRAM) 50 mg tablet 2018-09 00:00: 00 11-06 00:00 :00 No [id number] 9100 50mg Take 1 tablet by mouth every 8 (eight) hours as needed for Pain (scale 4-6). [facility] benzonatate 100 mg capsule 10-05 00:00: 00 11-06 00:00 :00 No 100mg Take 1 capsule by mouth 3 (three) times daily as needed for Cough. DO NOT CHEW! [facility] ondansetron (ZOFRAN ODT) 4 mg disintegrat ing tablet 10-05 00:00: 00 11-06 00:00 :00 No 4mg Take 1 tablet by mouth every 8 (eight) hours as needed for Nausea and Vomiting (N/V). [facility] sod chlor-bicar b-squeez bottle (NEILMED SINUS RINSE COMPLETE) pkdv 10-05 00:00: 00 11-06 00:00 :00 No 1{bottl e} Use 1 Bottle in each nostril 2 (two) times daily. Use in hot shower 1 hour before bedtime [facility] Vital Signs Vital Name Observation Time Observation Value Comments S ource Heart rate 2024-06-06 21:44:00 89 /min [facility] Oxygen saturation in Arterial blood by Pulse oximetry 2024-06-06 21:44:00 95 /min [facility] Systolic blood pressure 2024-06-06 21:30:00 125 mm[Hg] [facility] Diastolic blood pressure 2024-06-06 21:30:00 77 mm[Hg] [facility] Respiratory rate 2024-06-06 21:30:00 16 /min [facility] Body temperature 2024-06-06 17:52:00 37.22 Leonor [facility] Body height 2024-06-06 17:52:00 188 cm [facility] Body weight 2024-06-06 17:52:00 124.739 kg [facility] BMI 2024-06-06 17:52:00 35.31 kg/m2 [facility] Heart rate 2024-02-29 22:22:00 88 /min [facility] Body temperature 2024-02-29 22:22:00 37.11 Leonor [facility] Oxygen saturation in Arterial blood by Pulse oximetry 2024-02-29 22:22:00 95 /min [facility] Systolic blood pressure 2024-02-29 22:00:00 114 mm[Hg] [facility] Diastolic blood pressure 2024-02-29 22:00:00 76 mm[Hg] [facility] Respiratory rate 2024-02-29 22:00:00 16 /min [facility] Body height 2024-02-29 19:45:00 188 cm [facility] Body weight 2024-02-29 19:45:00 122.471 kg [facility] BMI 2024-02-29 19:45:00 34.67 kg/m2 [facility] Systolic blood pressure 2022-07-13 02:00:00 165 mm[Hg] [facility] Diastolic blood pressure 2022-07-13 02:00:00 96 mm[Hg] [facility] Heart rate 2022-07-13 02:00:00 88 /min [facility] Respiratory rate 2022-07-13 02:00:00 18 /min [facility] Oxygen saturation in Arterial blood by Pulse oximetry 2022-07-13 02:00:00 98 /min [facility] Body temperature 2022-07-13 01:48:00 37 Leonor [facility] Body height 2022-07-13 01:25:00 188 cm [facility] Body weight 2022-07-13 01:25:00 129.275 kg [facility] BMI 2022-07-13 01:25:00 36.59 kg/m2 [facility] Systolic blood pressure 2022-07-07 02:21:33 135 mm[Hg] [facility] Diastolic blood pressure 2022-07-07 02:21:33 81 mm[Hg] [facility] Heart rate 2022-07-07 02:21:33 93 /min [facility] Respiratory rate 2022-07-07 02:21:33 18 /min [facility] Oxygen saturation in Arterial blood by Pulse oximetry 2022-07-07 02:21:33 96 /min [facility] Body temperature 2022-07-07 00:44:00 37 Leonor [facility] Body height 2022-07-07 00:44:00 188 cm [facility] Body weight 2022-07-07 00:44:00 129.275 kg [facility] BMI 2022-07-07 00:44:00 36.59 kg/m2 [facility] Systolic blood pressure 2022-06-21 18:46:00 128 mm[Hg] [facility] Diastolic blood pressure 2022-06-21 18:46:00 86 mm[Hg] [facility] Heart rate 2022-06-21 18:46:00 81 /min [facility] Respiratory rate 2022-06-21 18:46:00 16 /min [facility] Oxygen saturation in Arterial blood by Pulse oximetry 2022-06-21 18:46:00 99 /min [facility] Body temperature 2022-06-21 16:02:00 37.06 Leonor [facility] Body height 2022-06-21 16:02:00 188 cm [facility] Body weight 2022-06-21 16:02:00 127.007 kg [facility] BMI 2022-06-21 16:02:00 35.95 kg/m2 [facility] Systolic blood pressure 2020-04-24 13:23:00 129 mm[Hg] [facility] Diastolic blood pressure 2020-04-24 13:23:00 81 mm[Hg] [facility] Heart rate 2020-04-24 13:23:00 82 /min [facility] 2020-04-24 13:23:00 138.075 kg [facility] BMI 2020-04-24 13:23:00 39.08 kg/m2 [facility] Systolic blood pressure 2020-04-24 13:23:00 129 mm[Hg] [facility] Diastolic blood pressure 2020-04-24 13:23:00 81 mm[Hg] [facility] Heart rate 2020-04-24 13:23:00 82 /min [facility] Body weight 2020-04-24 13:23:00 138.075 kg [facility] BMI 2020-04-24 13:23:00 39.08 kg/m2 [facility] Systolic blood pressure 2020-04-07 03:51:00 118 mm[Hg] [facility] Diastolic blood pressure 2020-04-07 03:51:00 68 mm[Hg] [facility] Heart rate 2020-04-07 03:51:00 92 /[facility] Respiratory rate 2020-04-07 03:51:00 16 /min [facility] Oxygen saturation in Arterial blood by Pulse oximetry 2020-04-07 03:51:00 100 /min [facility] Body temperature 2020-04-07 03:40:00 36.44 Leonor [facility] Body weight 2020-04-07 00:07:00 129.275 kg [facility] BMI 2020-04-07 00:07:00 36.59 kg/m2 [facility] Heart rate 2020-02-19 23:10:00 105 /min [facility] Respiratory rate 2020-02-19 23:10:00 29 /min [facility] Oxygen saturation in Arterial blood by Pulse oximetry 2020-02-19 23:10:00 94 /min [facility] Systolic blood pressure 2020-02-19 23:00:00 127 mm[Hg] [facility] Diastolic blood pressure 2020-02-19 23:00:00 78 mm[Hg] [facility] Body temperature 2020-02-19 22:04:10 37.33 Leonor [facility] Body height 2020-02-19 19:56:00 188 cm [facility] Body weight 2020-02-19 19:56:00 129.275 kg [facility] BMI 2020-02-19 19:56:00 36.59 kg/m2 [facility] Systolic blood pressure 2019-11-06 17:14:00 138 mm[Hg] [facility] Diastolic blood pressure 2019-11-06 17:14:00 88 mm[Hg] [facility] Heart rate 2019-11-06 17:14:00 102 /min [facility] Respiratory rate 2019-11-06 17:14:00 18 /min [facility] Oxygen saturation in Arterial blood by Pulse oximetry 2019-11-06 17:14:00 96 /min [facility] Body temperature 2019-11-06 14:00:00 36.72 [facility] Body height 2019-11-03 23:00:00 188 cm [facility] Body weight 2019-11-03 15:22:00 129.275 kg [facility] BMI 2019-11-03 15:22:00 36.58 kg/m2 [facility] Procedures Procedure Date / Time Performed Performing Clinician Source XR KNEE 3 VW RIGHT 2023-04-04 15:33:38 Adam Servin [facility] XR CERVICAL SPINE 2 VW 2023-04-04 15:33:20 Adam Servin [facility] CONSENT/REFUSAL FOR DIAGNOSIS AND TREATMENT 2023-04-04 15:01:50 Doctor Unassigned, [place] [facility] CONSENT/REFUSAL FOR DIAGNOSIS AND TREATMENT 2022-07-13 01:17:58 Doctor Unassigned, [place] [facility] CONSENT/REFUSAL FOR DIAGNOSIS AND TREATMENT 2022-07-07 00:35:11 Doctor Unassigned, [place] [facility] CT HEAD WO CONTRAST 2022-06-21 17:34:58 Stephanie Oneal [facility] XR CHEST 1 VW 2022-06-21 16:37:11 [facility] TROPONIN I 2022-06-21 16:28:00 Stephanie Oneal [facility] BASIC METABOLIC PANEL (NA, K, CL, CO2, GLUCOSE, BUN, CREATININE, CA) 2022-06-21 16:28:00 Stephanie Oneal [facility] CBC WITH DIFF 2022-06-21 16:28:00 Stephanie Oneal [facility] NOTICE OF PRIVACY PRACTICES 2022-06-21 15:51:50 Doctor Unassigned, [place] [facility] CONSENT/REFUSAL FOR DIAGNOSIS AND TREATMENT 2022-06-21 15:51:34 Doctor Unassigned, [place] [facility] EGD (ENDO) 2020-04-07 02:31:21 Lisa Armendariz [facility] COMP. METABOLIC PANEL ([id number]) 2020-04-07 01:52:00 Yazmin Apple [facility] CBC WITH DIFF 2020-04-07 01:52:00 Yazmin Apple [facility] XR NECK SOFT TISSUE 2020-04-07 00:57:29 Yazmin Apple [facility] COVID-19 (ID NOW RAPID TESTING) 2020-04-07 00:40:00 Yazmin Apple [facility] NOTICE OF PRIVACY PRACTICES 2020-04-06 23:57:19 Doctor Unassigned, [place] [facility] CONSENT/REFUSAL FOR DIAGNOSIS AND TREATMENT 2020-04-06 23:57:05 Doctor Unassigned, [place] [facility] REFERRAL- REQUEST/RESPONSE 2020-03-29 05:01:00 Doctor Unassigned, [place] [facility] POCT GLUCOSE (AUTOMATED) 2020-02-19 23:05:00 Stephanie Oneal [facility] POCT GLUCOSE (AUTOMATED) 2020-02-19 21:52:00 Stephanie Oneal [facility] COMP. METABOLIC PANEL ([id number]) 2020-02-19 20:47:00 Stephanie Oneal [facility] CBC WITH DIFFERENTIAL 2020-02-19 20:47:00 Stephanie Oneal [facility] COVID-19 (ID NOW RAPID TESTING) 2020-02-19 20:47:00 Stephanie Oneal [facility] NOTICE OF PRIVACY PRACTICES 2020-02-19 19:53:34 Doctor Unassigned, [place] [facility] CONSENT/REFUSAL FOR DIAGNOSIS AND TREATMENT 2020-02-19 19:53:23 Doctor Unassigned, [place] [facility] POCT GLUCOSE (AUTOMATED) 2019-11-06 13:36:00 Luis Arshad [facility] POCT GLUCOSE (AUTOMATED) 2019-11-06 01:48:00 Luis Arshad [facility] POCT GLUCOSE (AUTOMATED) 2019-11-05 22:16:00 Luis Arshad [facility] POCT GLUCOSE (AUTOMATED) 2019-11-05 17:26:00 Luis Arshad [facility] POCT GLUCOSE (AUTOMATED) 2019-11-05 13:21:00 Luis Arshad [facility] BASIC METABOLIC PANEL (NA, K, CL, CO2, GLUCOSE, BUN, CREATININE, CA) 2019-11-05 10:28:00 Ritika Milan [facility] CBC WITH DIFFERENTIAL 2019-11-05 10:28:00 Denise Milan [facility] POCT GLUCOSE (AUTOMATED) 2019-11-05 10:12:00 Luis Arshad [facility] POCT GLUCOSE (AUTOMATED) 2019-11-05 06:12:00 Luis Arshad [facility] POCT GLUCOSE (AUTOMATED) 2019-11-05 01:41:00 Luis Arshad [facility] POCT GLUCOSE (AUTOMATED) 2019-11-04 22:26:00 Luis Arshad [facility] POCT GLUCOSE (AUTOMATED) 2019-11-04 17:20:00 Luis Arshad [facility] POCT GLUCOSE (AUTOMATED) 2019-11-04 13:21:00 Luis Arshad [facility] POCT GLUCOSE (AUTOMATED) 2019-11-04 11:57:00 Luis Arshad [facility] POCT GLUCOSE (AUTOMATED) 2019-11-04 05:30:00 Luis Arshad [facility] POCT GLUCOSE (AUTOMATED) 2019-11-04 02:17:00 Luis Arshad [facility] POCT GLUCOSE (AUTOMATED) 2019-11-03 23:23:00 Luis Arshad [facility] POCT GLUCOSE (AUTOMATED) 2019-11-03 21:41:00 Luis Arshad [facility] SURGICAL PATHOLOGY EXAM 2019-11-03 20:26:00 Sandeep Lund [facility] LAPAROSCOPIC APPENDECTOMY 2019-11-03 19:24:00 Yonatan Lund [facility] CT ABDOMEN PELVIS W CONTRAST 2019-11-03 17:41:22 Ervin Rhoades [facility] LIPASE 2019-11-03 15:35:00 Ervin Rhoades [facility] COMP. METABOLIC PANEL ([id number]) 2019-11-03 15:35:00 Ervin Rhoades [facility] CBC WITH DIFFERENTIAL 2019-11-03 15:35:00 Jimmy Rhoades [facility] GLYCOSYLATED HEMOGLOBIN (A1C) 2019-11-03 15:35:00 Stephanie Pichardo [facility] URINALYSIS 2019-11-03 15:35:00 Ervin Rhoades [facility] Encounters Start Date/Time End Date/Time Encounter Type Admission Type Attending [facility] Care Department Encounter ID Source 2024-06-06 12:53:00 2024-06-06 16:47:00 Emergency X YADIEL HAQ JULIO [facility]ARIANA [facility] [id number] [facility] 2024-06-06 12:53:00 2024-06-06 16:47:00 Emergency Yadiel Haq [facility] AT [facility] 1.2.840.114 350.1.13.10 4.2.7.2.686 [id number] [facility] 2024-02-29 14:46:00 2024-02-29 17:26:00 Emergency X VIRI [facility]N [facility] E[facility] [id number] [facility] 2024-02-29 14:46:00 2024-02-29 17:26:00 Emergency Viri Guzmán [facility] 1.2.840.114 350.1.13.10 4.2.7.2.686 [id number] [facility] 2023-04-04 10:08:04 2023-04-04 23:59:00 Hospital Encounter [facility] 1.2.840.114 350.1.13.10 4.2.7.2.686 [id number] [facility] 2023-04-04 10:03:37 2023-04-04 10:07:[address] [facility] [id number] [facility] 2023-04-04 10:00:00 2023-04-04 10:07:00 Hospital Encounter [facility] 1.2.840.114 350.1.13.10 4.2.7.2.686 [id number] [facility] 2023-04-04 00:00:00 2023-04-04 00:00:00 Orders Only Doctor Unassigned, [place] [facility] 1.2.840.114 350.1.13.10 4.2.7.2.686 [id number] [facility] 2022-07-12 20:32:00 2022-07-12 22:17:00 Emergency X YADIEL HAQ [facility] E[facility] [id number] [facility] 2022-07-12 20:32:00 2022-07-12 22:17:00 Emergency Yadiel Haq [facility] 1.2.840.114 350.1.13.10 4.2.7.2.686 [id number] [facility] 2022-07-12 08:40:00 2022-07-12 08:40:00 Outpatient DAVID YOUSIF [place] [id number] [facility] 2022-07-06 19:49:00 2022-07-06 23:18:00 Emergency X ALEXIS [facility] ERT [id number] [facility] 2022-07-06 19:49:00 2022-07-06 23:18:00 Emergency Alexis Dawn [facility] 1.840.114 350.1.13.10 4.2.7.2.686 [id number] [facility] 2022-06-21 11:04:00 2022-06-21 13:54:00 Emergency X STEPHANIE ONEAL [facility] ERT [id number] [facility] 2022-06-21 11:04:00 2022-06-21 13:54:00 Emergency Stephanie Oneal [facility] 1..840.114 350.1.13.10 4.2.7.2.686 [id number] [facility] 2022-06-21 00:00:00 2022-06-21 00:00:00 Orders Only Doctor Unassigned, [place] [facility] 1..840.114 350.1.13.10 4.2.7.2.686 [id number] [facility] 2020-08-15 10:00:00 2020-08-15 10:00:00 Outpatient SILVINA ISBELL [place] [id number] [facility] 2020-04-24 08:15:37 2020-04-24 08:49:56 Office Visit Norberto Bernal [facility] Professio [facility] 1.2840.114 350.1.13.10 4.2.7.2.686 [id number] 2020-04-24 08:15:37 2020-04-24 08:49:56 Office Visit Dolores, Norberto Kothari [facility] Professio [facility] 1.2840.114 350.1.13.10 4.2.7.2.686 [id number] [facility] 2020-04-24 08:00:00 2020-04-24 08:00:00 Outpatient R NORBERTO BERNAL HOWARD [place] [id number] [facility] 2020-04-06 19:12:13 2020-04-06 22:55:00 Emergency Yazmin Apple [facility] Surgical [place] 1.2840.114 350.1.13.10 4.2.7.2.686 [id number] [facility] 2020-04-06 19:12:13 2020-04-06 19:12:13 Emergency X Yazmin [facility] ERT [id number] [facility] 2020-04-06 00:00:00 2020-04-06 00:00:00 Orders Only Doctor Unassigned, [place] [facility] 1.2840.114 350.1.13.10 4.2.7.2.686 [id number] [facility] 2020-03-29 00:00:00 2020-03-29 00:00:00 Orders Only Doctor Unassigned, [place] [facility] 1.2840.114 350.1.13.10 4.2.7.2.686 [id number] [facility] 2020-02-19 15:07:18 2020-02-19 19:22:00 Emergency Stephanie Oneal [facility] 1.2.840.114 350.1.13.10 4.2.7.2.686 [id number] [facility] 2020-02-19 14:53:00 2020-02-19 14:53:00 Emergency X [facility] [id number] [facility] 2020-02-19 00:00:00 2020-02-19 00:00:00 Orders Only Doctor Unassigned, [place] [facility] 1.2.840.114 350.1.13.10 4.2.7.2.686 [id number] [facility] 2019-11-08 00:00:00 2019-11-08 00:00:00 Transition of Care Hortensia Nicolas 1.2.840.114 350.1.13.10 4.2.7.2.686 [id number] [facility] 2019-11-03 09:25:15 2019-11-06 12:00:00 Hospital Encounter Ervin Rhoades Yaman [facility] 1.2.840.114 350.1.13.10 4.2.7.2.686 [id number] [facility] 2019-11-03 09:25:15 2019-11-06 12:00:00 Inpatient X LUIS ARSHAD [facility] [id number] [facility] Results Test Description Test Time Test Comments Results Result Co mments Source [facility] (NA, K, CL, CO2, GLUCOSE, BUN, CREATININE, CA)2022-06-21 16:50:52* Test Item Value Reference Range Interpretation Comme nts NA (test code = 7323319402) 137 mmol/L 135-145 K (test code = 1536384690) 4.6 mmol/L 3.5-5 CL (test code = 0812539737) 97 mmol/L 98-108 L CO2 TOTAL (test code = 6531879616) 30 mmol/L 23-31 AGAP (test code = 5984153126) 2-16 BUN (test code = 9516300487) 11 mg/dL 7-23 GLUCOSE (test code = 9084404373) 214 mg/dL 70-110 H CREATININE (test code = 3804864982) 1.16 mg/dL 0.6-1.25 CALCIUM (test code = 0644426415) 8.5 mg/dL 8.6-10.6 L eGFR (test code = 5495567065) mL/min/1.73m2 KATE (test code = KATE) Association [...] imaging tests). Lab Interpretation (test code = 85431-8) Abnormal [facility] WITH [id number] 16:39:51* Test Item Value Reference Range Interpretation Comme nts WBC (test code = 6690-2) See_Comment [Automated [employer]] The system which generated this result transmitted reference range: 4.20 - 10.70 10*3/?L. The reference range was not used to interpret this result as normal/abnormal. RBC (test code = 789-8) See_Comment H [Automated messa ge] The system which generated [...] 33.6 g/dL 31.2-35 RDW-SD (test code = 47034-7) 37.0 fL 38.5-51.6 L RDW-CV (test code = 788-0) 13.2 % 12.1-15.4 PLT (test code = 777-3) See_Comment [Automated messa ge] The system which generated this result transmitted reference range: 150 - 328 10*3/?L. The reference range was not used to interpret this result as normal/abnormal. MPV (test code = 77179-1) 11.1 fL 9.8-13 NRBC/100 WBC (test code = 4531323623) See_Comment [Automated [employer] ssage] The system which generated this result transmitted reference range: 0.0 - 10.0 /100 WBCs. The reference range was not used to interpret this result as normal/abnormal. NRBC x10^3 (test code = 3764075507) See_Comment [Automated [employer] ge] The system which generated this result transmitted reference range: 10*3/?L. The reference range was not used to interpret this result as normal/abnormal. GRAN MAT (NEUT) % (test code = 770-8) 67.3 % IMM GRAN % (test code = 6443077942) 0.20 % LYMPH % (test code = 736-9) 23.5 % MONO % (test code = 5905-5) 5.7 % EOS % (test code = 713-8) 2.6 % BASO % (test code = 706-2) 0.7 % GRAN MAT x10^3(ANC) (test code = 0617178690) 3.93 10*3/uL 1.99-6.95 IMM GRAN x10^3 (test code = 3472330757) 0-0.06 LYMPH x10^3 (test code = 731-0) 1.37 10*3/uL 1.09-3.23 MONO x10^3 (test code = 742-7) 0.33 10*3/uL 0.36-1.02 L EOS x10^3 (test code = 711-2) 0.15 10*3/uL 0.06-0.53 BASO x10^3 (test code = 704-7) 0.04 10*3/uL 0.01-0.09 Lab Interpretation (test code = 82737-8) [facility]06858[facility]2020-04-07 03:03:00* Test Item Value Reference Range Interpretation Comme nts NA (test code = 5988948120) 139 mmol/L 135-145 K (test code = 2600520339) 4.4 mmol/L 3.5-5 CL (test code = 2628832751) 101 mmol/L 98-108 CO2 TOTAL (test code = 3403385261) 28 mmol/L 23-31 AGAP (test code = 8388890380) 2-16 BUN (test code = 1493934106) 11 mg/dL 7-23 GLUCOSE (test code = 9849868510) 225 mg/dL 70-110 H CREATININE (test code = 3826844300) 0.98 mg/dL 0.6-1.25 TOTAL BILI (test code = 3098191701) 0.5 mg/dL 0.1-1.1 CALCIUM (test code = 3162593605) 9.6 mg/dL 8.6-10.6 T PROTEIN (test code = 8198627726) 8.2 g/dL 6.3-8.2 ALBUMIN (test code = 4557306999) 4.7 g/dL 3.5-5 ALK PHOS (test code = 8709851259) 75 U/L 34-122 ALTv (test code = 1742-6) 74 U/L 5-50 H AST(SGOT) (test code = 7991534791) 39 U/L 13-40 eGFR Calculation (Non-) (test code = 0474525648) mL/min/1.73m2 eGFR Calculation () (test code = 7605534648) mL/min/1.73m2 KATE (test code = KATE) Association [...] imaging tests). Lab Interpretation (test code = 42663-7) Abnormal [facility] WITH [id number] 02:12:00* Test Item Value Reference Range Interpretation Comme nts WBC (test code = 6690-2) See_Comment [Automated [employer]] The system which generated this result transmitted reference range: 4.20 - 10.70 10*3/?L. The reference range was not used to interpret this result as normal/abnormal. RBC (test code = 789-8) See_Comment H [Automated [employer]] The system which generated this result transmitted [...] 32.9 g/dL 31.2-35 RDW-SD (test code = 47065-7) 36.4 fL 38.5-51.6 L RDW-CV (test code = 788-0) 12.5 % 12.1-15.4 PLT (test code = 777-3) See_Comment [Automated messa ge] The system which generated this result transmitted reference range: 150 - 328 10*3/?L. The reference range was not used to interpret this result as normal/abnormal. MPV (test code = 46260-3) 11.5 fL 9.8-13 NRBC/100 WBC (test code = 7262026616) See_Comment [Automated [employer] ssage] The system which generated this result transmitted reference range: 0.0 - 10.0 /100 WBCs. The reference range was not used to interpret this result as normal/abnormal. NRBC x10^3 (test code = 2076151859) <0.01 See_Comment [Automated Parking [employer]] The system which generated this result transmitted reference range: 10*3/?L. The reference range was not used to interpret this result as normal/abnormal. GRAN MAT (NEUT) % (test code = 770-8) 68.0 % IMM GRAN % (test code = 5115753658) 0.40 % LYMPH % (test code = 736-9) 23.8 % MONO % (test code = 5905-5) 4.7 % EOS % (test code = 713-8) 2.7 % BASO % (test code = 706-2) 0.4 % GRAN MAT x10^3(ANC) (test code = 2300318398) 5.24 10*3/uL 1.99-6.95 IMM GRAN x10^3 (test code = 5119153080) 0.03 10*3/uL 0-0.06 LYMPH x10^3 (test code = 731-0) 1.83 10*3/uL 1.09-3.23 MONO x10^3 (test code = 742-7) 0.36 10*3/uL 0.36-1.02 EOS x10^3 (test code = 711-2) 0.21 10*3/uL 0.06-0.53 BASO x10^3 (test code = 704-7) 0.03 10*3/uL 0.01-0.09 Lab Interpretation (test code = 05758-6) [facility] RAPID TEST[facility])2020-04-07 01:40:00* Test Item Value Reference Range Interpretation Comme nts SARS-CoV-2 Rapid ID NOW (test code = 76010-6) Not Detected Not Detected KATE (test code = KATE) ID NOW COVID-19 As say is an isothermal nucleic acid amplification test intended for the qualitative detection of nucleic acid from SARS-CoV-2 viral RNA in nasopharyngeal ([employer]) specimens. It is used under Emergency Use [...] clinically indicated. Lab Interpretation (test code = 86881-6) [facility] [id number] 01:06:58 FINDINGS/IMPRESSION:: Frontal and lateral radiographs of [...] spondylotic changes at C5-C6. Cervical spine is otherwiseunremarkable.[facility] GLUCOSE (AUTOMATED)2020-02-19 23:08:00* Test Item Value Reference Range Interpretation Comme nts POCT GLU (test code = 4306645526) 243 mg/dL 70-110 H Lab Interpretation (test cod e = 27764-7) Abnormal [facility] GLUCOSE (AUTOMATED)2020-02-19 21:58:00* Test Item Value Reference Range Interpretation Comme nts POCT GLU (test code = 8954526892) 313 mg/dL 70-110 H Lab Interpretation (test cod e = 29883-6) [facility]ID NOW RAPID TESTING)2020-02-19 21:31:00* Test Item Value Reference Range Interpretation Comme [facility] SARS-CoV-2 Rapid ID NOW (test code = 28110-4) Not Detected Not Detected KATE (test code = KATE) ID NOW COVID-19 As say is an isothermal nucleic acid amplification test intended for the qualitative detection of nucleic acid from SARS-CoV-2 viral RNA in nasopharyngeal ([employer]) specimens. It is used under Emergency Use [...] clinically indicated. Lab Interpretation (test code = 99569-3) Normal [facility]. METABOLIC PANEL (37344)2020-02-19 21:29:00* Test Item Value Reference Range Interpretation Comme nts NA (test code = 0592223933) 134 mmol/L 135-145 L K (test code = 8499422736) 4.1 mmol/L 3.5-5 CL (test code = 9827815836) 99 mmol/L 98-108 CO2 TOTAL (test code = 1883486095) 27 mmol/L 23-31 AGAP (test code = 1844357948) 2-16 BUN (test code = 8101151888) 10 mg/dL 7-23 GLUCOSE (test code = 1315836990) 372 mg/dL 70-110 H CREATININE (test code = 8645237429) 0.96 mg/dL 0.6-1.25 TOTAL BILI (test code = 3978267903) 0.4 mg/dL 0.1-1.1 CALCIUM (test code = 5989677666) 9.2 mg/dL 8.6-10.6 T PROTEIN (test code = 6272410229) 7.5 g/dL 6.3-8.2 ALBUMIN (test code = 1436411915) 4.5 g/dL 3.5-5 ALK PHOS (test code = 0228505061) 86 U/L 34-122 ALTv (test code = 1742-6) 48 U/L 5-50 AST(SGOT) (test code = 4875049690) 27 U/L 13-40 eGFR Calculation (Non-) (test code = 6365564455) mL/min/1.73m2 eGFR Calculation () (test code = 8975836615) mL/min/1.73m2 KATE (test code = KATE) Association [...] imaging tests). Lab Interpretation (test code = 23960-9) Abnormal [facility] WITH [id number] 21:06:00* Test Item Value Reference Range Interpretation Comme nts WBC (test code = 6690-2) See_Comment [[employer]] The system which generated this result transmitted reference range: 4.20 - 10.70 10*3/?L. The reference range was not used to interpret this result as normal/abnormal. RBC (test code = 789-8) See_Comment H [[employer]] The system which generated this result transmitted [...] 33.4 g/dL 31.2-35 RDW-SD (test code = 75788-8) 36.3 fL 38.5-51.6 L RDW-CV (test code = 788-0) 12.9 % 12.1-15.4 PLT (test code = 777-3) See_Comment [[employer]] The system which generated this result transmitted reference range: 150 - 328 10*3/?L. The reference range was not used to interpret this result as normal/abnormal. MPV (test code = 61382-4) 11.3 fL 9.8-13 NRBC/100 WBC (test code = 0517486381) See_Comment [Automated me ssage] The system which generated this result transmitted reference range: 0.0 - 10.0 /100 WBCs. The reference range was not used to interpret this result as normal/abnormal. NRBC x10^3 (test code = 7884923053) <0.01 See_Comment [Automated messa ge] The system which generated this result transmitted reference range: 10*3/?L. The reference range was not used to interpret this result as normal/abnormal. GRAN MAT (NEUT) % (test code = 770-8) 79.8 % IMM GRAN % (test code = 6281551252) 0.50 % LYMPH % (test code = 736-9) 13.4 % MONO % (test code = 5905-5) 4.2 % EOS % (test code = 713-8) 1.8 % BASO % (test code = 706-2) 0.3 % GRAN MAT x10^3(ANC) (test code = 3002756027) 8.49 10*3/uL 1.99-6.95 H IMM GRAN x10^3 (test code = 6184642163) 0.05 10*3/uL 0-0.06 LYMPH x10^3 (test code = 731-0) 1.42 10*3/uL 1.09-3.23 MONO x10^3 (test code = 742-7) 0.45 10*3/uL 0.36-1.02 EOS x10^3 (test code = 711-2) 0.19 10*3/uL 0.06-0.53 BASO x10^3 (test code = 704-7) 0.03 10*3/uL 0.01-0.09 Lab Interpretation (test code = 34593-2) Abnormal [facility] GLUCOSE (AUTOMATED)2019-11-06 13:38:00* Test Item Value Reference Range Interpretation Comme nts POCT GLU (test code = 5681159016) 116 mg/dL 70-110 H Lab Interpretation (test cod e = 07730-5) Abnormal [facility] GLUCOSE (AUTOMATED)2019-11-06 12:29:00* Test Item Value Reference Range Interpretation Comme nts POCT GLU (test code = 8397018308) 322 mg/dL 70-110 H Lab Interpretation (test cod e = 50163-8) Abnormal [facility] GLUCOSE (AUTOMATED)2019-11-06 12:29:00* Test Item Value Reference Range Interpretation Comme nts POCT GLU (test code = 3830917643) 230 mg/dL 70-110 H Lab Interpretation (test cod e = 71505-4) Abnormal [facility] GLUCOSE (AUTOMATED)2019-11-06 02:00:00* Test Item Value Reference Range Interpretation Comme nts POCT GLU (test code = 1257905404) 155 mg/dL 70-110 H Notified Provide r Lab Interpretation (test code = 29355-6) [facility] [id number] 00:02:00* Test Item Value Reference Range Interpretation Comme nts Case Report (test code = 8513723319) Surgical Pathology ?Case: [id number] ? Authorizing Provider: ?Yonatan Lund MD ? ? ? Collected: ? 11/03/2019 1426 ?Ordering Location: ? ? [facility] ? ? ?Received: ?11/03/2019 1555 ? Surgical Center ?Pathologist: ? Klaus Tinoco MD ? Specimen: ? ?APPENDIX, appendix ? Final Diagnosis (test code = 0344435591) f7dmdMCgORTgd3svTEAuhM FuZzEwMzNcZnRuYmpcdWMx LMwjbtQcAYtro6IoV5AnWk AwMFxhbnNpXGRlZmxhbmcx BRWnUAW5okEoQXMeEMggUQ OmXUipYv0ehDHmvFhqTwGe XYZlr4jkrgASridbdZe0x9 pgWFAiAlY1bQJeRSbpJ1nd fqYzoNVdQTAsVSv3aS87ZJ XnxZ4zuSVtRVogegGtQXbh qrWkcrWjUsb6TSRnH4esJS YqUTJiB2DcIA3bRWNpKkc7 YVE5XZS4cLhci2S9gRKaoW IlmYdyYoCgNrSqBXOWk5Qe TMc5kYgcE5GxJCLtQdV7sG QgUGFyYWdyYXBoIEZvbnQ7 yL38BPxjklU5uQTfe8Oxk0 2aw425mL7zrABgHXE5DLHr LPCeoNWhJMBxSHK0UZTidX DgF9ezDUamWN1chcseDVC6 MFxtYXJndDcyMFxtYXJnYj CmuBRgPYPliDyuQYifv378 KTF9ByArOA1lE8Axj9P0cI 9maXRcZGVmdGFiNzIwXGZv lw6mhFLfGPtly1EfYEX7gj F7lYFleCWtEJRrXW54Peah n1VqJnbfPRV0YXKpyqOcv9 Mst3cpXrFedfAtK5wdO4Cn ZHJoZWFkXHBnYnJkcmZvb3 Rrt1TvqEDssLf1w3gaMKNy NWWdbLrip4jeRDQ4WCYhA0 B6iGQje1jfTLnePJXfsQS9 fjVbEZXfpSNlT4TgyD4nVZ yyRQ5oxpi3d7bfEvUdUJ5k wquvx1pbDLogXOBkDQQ6Dm NoWSZga9DnnlapCkDex4Cr jYNrYMckC83ax409OUYnwo YmB4pikVLmiksicOEuqpeo MFxmczIwXHFsXHBsYWluXG ZwOWHoQtCgnCenvY0rZbUl ZnMyMFxwYXJccGFyZFxwbG FpblxmMFxmczIwXHBsYWlu FVWxUZSuOePvKG8dCJIZSI 6VFHgxDJXWUEQICZEHBD9Q WTpccGFyXHFsXHBsYWluXG YhTNRoLkJrnWiawG9bNeOp LoCiPRJcXCTwAU3tKOYQEO TrYUMEPQ4CHQJVSOcWACkH CDipLUFRJS2WATOKRySRJ7 lUSVNccGFyXHBhciBNYXR0 aDN2JKPbsRTqLBZCNLojWT CxbAdxdM3cXcRmQzVtPacx IL8qLNYzI3xdxYEeCBOyQO LyL1fpAwYkwI5auGvpLAyd ZjFcZnMyMiBIYXJzaHdhcm YjHO7rQFkig9WjXSJRJCBj Xb8lLP9wNXKfCQZ7KkEvJV BNXHBsYWluXGYxXGZzMjBc vLFxkEgwrpUrAYyoe9YtS3 YyMjAwMFxhbnNpXGRlZmxh vuscGUBcAQO0yxHbFGTeKK swIOHjMAjkNz6vzEEjuVjr HePtSVCxv7djkyRNAJxsBg EsO070PYChTMzbd6zxo7Du BCRrqPSsf2S6CKSQgahyeR s0g6ytTyRtRpF6mZWxJAmc F8qoijDfoCAkV9VnnSLolF o9sKauS94pb0T0GramD4ko RHPqOVJrL0QmCA7dMXXcPn r6HGR1DHP4RYVpIRPkH9Ik SB1mOYAgfYIhNIs4l8rqeQ jtXVSzXUI8z6jdZUbogcC3 IU5mnj6ywHe1m4uchmInPZ IzYNQdzCYIRQXjH0NenAgv Qq8biCy2dKtuXfolPPE4Ie q8RD6owo44ztg8qTwxAAIm euijJnJ6NMmsNYFyburmYU p9EEorTRDfyOD1PRTikJEx A0VhSUPvHX0vius0BEE2UT srFXAsZcB1AGTjfLXfFIRw dFuzEWdxf328JJU0HbVfWR 7fP9Lxy4H1dI8bbJZrSNHb bQXwStIaFGHdel6gjHGrCO hyi6RjJLU4zoB5oVJjfWIo OESfTE70Ubeoi6FvHyrsTY Y1NCJnebObg5Xwa8yiTnWk bhXbZ4ccX0DyKLNiTGZqCI YkGnRrbnMyz5Fks7OcwVNr dQc0z5xnTFLnNUJoeUdim6 jnIYH8ZGNrX3Z8oYUzk2ae ILupWQXjnQS5pnY2ISEywE GoW6IrxO1qUVJgZS2rovd0 l1emJJE2NUxrTNNqLzV5yp X2YQXwsUYxNZFsgNgbQEub r763WQR2ZdKtFOEhw0GsO2 EbqMfcF24xqFfyB55nSOIe cYjlnP9blJixqN8kDxShYh MyNFxxbFxwbGFpblxmMVxm czIwXGxhbmcxMDMzXGhpY2 huFkLpXGMyvUclBGajg7Di XGYxXGNmMlxmczIwXHBhci DYVXtcbhKicZWvh47bEKql eSByZXZpZXdlZCBhbGwgc3 WfZ9qxIH7fV9NdfMZvkaAn hqNqQSktBKBck2z0cPPybR fec7GljLMsTG40rgPyZOYr IZM7AAIwo8nrWZ37eibwEd MiqE71kuJfujQcKAErm0mo F3zboCTws4Mlb0QpcvNiKS jir4XqCT4coBWtijbkvVQ5 GFCgxHGfkvOelaW9wGmwHC PkcF5wyS1mgDlcnA6pVuDc HqCmBYwjBV6kJCOsK6nmeC HcAKJrUGIxY4rwFpUvjN2t uUxaVcnsruU9EACwqf64 Clinical Information (test code = 6579439055) Acute abdomen Gross Description (test code = 5109324633) x5pzwQOeKTLnyERkSjFwFM LaBBVyk6usJHOrnBRpAwKi MzNcZnRuYmpcdWMxXGRlZm Qjt7wpb046lEDkl2yrRALs FgD0aQApIBMirYUgR392WN LjXQyii6guq9IaDBUoeVCq q5O1ZKUCnboahIk4wSqdP2 0tk3Q4RxgtW0wnHKJmNIgh TIKlBCasnJWiZYO4VRUfKZ Q6FZfiwzUmwoE5XXnetBUg RjG6XUl1x8neeQrdPDVoNO H4u1csTFtmtwZiXR7gzg5t wUd8q2lxdoSgNJTzOMTkrK ZETDXoR8SnbXoxGn9ouAh8 kLiwZthrTRW7Its6MW6jfz 62rwz2wPggVJGdxttjFoB8 TKtsJXSgezzeDAm5ZFwaPN GanLHvQKEqpHKlG8SxREfh LI7cysv8OpDqUC9zmkpoBK ydGGXiATX7FpHxPATxc5Yx hmtnXrMhrr5gnn72PFN9x6 YcyQxeJIU1GMS0XrGmPw0i vSMkJNEzML6gAzAlePGqRG Wmwg23pTpjTNwdyrUklN7i QeLkCXOfoKYbGNUwAH9ccU KeUBTltL4kglqeJISaUbJx aouoAOHphUmsmqOaPk9zqM foUKS0CNqnC6mvlC8dTaS8 VIhnK1hidI6kJFs8BQfqoH A6PEZiqH3rXC2sicwmj1xl IJV5HQmuUQVjvsM4ffOtMP JpcXOwD1ZknV01XhVboTMd C7SpiH9iAJotAHUtulq6Lj PcSm1ytPJbwFQ5TNeoLlwm YWdlXHBnbmNvbnRccGduZG VjXHBsYWluXHBsYWluXGYw BWWvAgFfw8HwTGZjz0miVt Cml6hroXf2XAotmCuzeSSh blxmMFxmczIwXHBsYWluXG JrPBPwYdVnV4IoI3rqBU1j QSBpcyByZWNlaXZlZCBpbi Noe9CpWRlozdTiTNMofSou QEF9fBDpVXIhNAEwMIRcDT 50XHBsYWluXGYxXGZzMjBc zJirVNneMLq6HaazzWYusw xmMVxmczIwIHMgbmFtZSwg VUggbnVtYmVyICJhcHBlbm RpeFxwbGFpblxmMVxmczIw FGQ9WaCdTXadOACckBpmzV 3oHsNtCjNsVZYhNH1iRASu bzJwn7GxNV8eKJVnnZdaoi 60HO7vyeEyyLmei3BiKGIq yNPpMAu2JPg1PpkrG59plT 6avQUmS6IkVRxyIB48HDEq OCBjbSBpbiBkaWFtZXRlci red3a2xGYrlYGnM1doIEG5 CXyav8axkJ7pzQwpfKXoJQ Tyt6O7eNSpBTPxTZJfUCMm AA6pyPtqKQSjUYL2BGBlUK Y8BPFaBMHveMthASEQnCNp TDEmHP0xiFsxq1Jlw4OjYE nky9BjTNMultY2xPNoCZS7 zJEuoKQtRHJqerTkoVL7qL VudCBleHVkYXRlLiBUaGUg MWMaWK1tnXeboSTnl6VklF OtvNpjc6LnxVwckpTtQCSn IHJldmVhbCBhIHBhdGVudC CuzX6uizdgpyQuN5ysUqIh gb3aDHOtyeKduR42QWEvZW UcKwXrlVelY37ygLKgehpo BjTcB7TvoCSiVJ2zeeEkUU dlLiAgVGhlIHdhbGwgdGhp A1orASUcFPXpzuyycbFgdh 6sSDRvNK0xTpFzL46iZIDj cnVwdHVyZSBzaXRlIGlzIG acb1MopBxcwPTxuzNuWfik WXcvHJ9lPYIcBNPvn34iyH hsAG08Q32rUFqyepWdWTP4 hJ6jSZ6qjzzawi8tXjFyon XzYL83GEEcqnHud0CvvYqn rcWie2umL7xujF4vrFVlWN Qvso4edrDaCYB5zR9xdflg oDtlHZBfyQZkcR2mLMFozu OxAEF9vQ3tSN4nnktvvgCr bmQgZGlzdGFsIHRpcCBhcm Zhs4FltSe2wWRgBPbnOODe LUEyLlxwYXJccGFyZFxwbG FpblxmMFxmczIwXHBsYWlu XGYxXGZzMjAgSnVsaWUgTW XHsGbwybF9XCLQNEpxFXU6 Embedded Images (test code = 8639456788) [facility] GLUCOSE (AUTOMATED)2019-11-05 22:19:00* Test Item Value Reference Range Interpretation Comme nts POCT GLU (test code = 8448344678) 115 mg/dL 70-110 H Lab Interpretation (test cod e = 45945-3) Abnormal [facility] GLUCOSE (AUTOMATED)2019-11-05 18:23:00* Test Item Value Reference Range Interpretation Comme nts POCT GLU (test code = 6783790651) 197 mg/dL 70-110 H Lab Interpretation (test cod e = 76259-5) Abnormal [facility] GLUCOSE (AUTOMATED)2019-11-05 17:33:00* Test Item Value Reference Range Interpretation Comme nts POCT GLU (test code = 1401509570) 125 mg/dL 70-110 H Lab Interpretation (test cod e = 85709-9) Abnormal [facility] GLUCOSE (AUTOMATED)2019-11-05 13:28:00* Test Item Value Reference Range Interpretation Comme nts POCT GLU (test code = 5348960893) 130 mg/dL 70-110 H Lab Interpretation (test cod e = 57259-5) Abnormal [facility] METABOLIC PANEL (NA, K, CL, CO2, GLUCOSE, BUN, CREATININE, CA)2019-11-05 12:11:00* Test Item Value Reference Range Interpretation Comme nts NA (test code = 6296100942) 137 mmol/L 135-145 K (test code = 4388232525) 3.6 mmol/L 3.5-5 CL (test code = 6040402447) 100 mmol/L 98-108 CO2 TOTAL (test code = 7428469376) 30 mmol/L 23-31 AGAP (test code = 9378141475) 2-16 BUN (test code = 5164889430) 14 mg/dL 7-23 GLUCOSE (test code = 2308497844) 164 mg/dL 70-110 H CREATININE (test code = 9148806335) 0.81 mg/dL 0.6-1.25 CALCIUM (test code = 4325059095) 8.6 mg/dL 8.6-10.6 eGFR Calculation (Non-) (test code = 4452030844) mL/min/1.73m2 eGFR Calculation () (test code = 5684346601) mL/min/1.73m2 KATE (test code = KATE) Association [...] imaging tests). Lab Interpretation (test code = 22388-6) Abnormal [facility] WITH [id number] 11:39:00* Test Item Value Reference Range Interpretation Comme nts WBC (test code = 6690-2) See_Comment [MoPub] The system which generated this result transmitted reference range: 4.20 - 10.70 10*3/?L. The reference range was not used to interpret this result as normal/abnormal. RBC (test code = 789-8) See_Comment [MoPub] The system which generated this result transmitted [...] 33.1 g/dL 31.2-35 RDW-SD (test code = 03729-0) 38.7 fL 38.5-51.6 RDW-CV (test code = 788-0) 13.0 % 12.1-15.4 PLT (test code = 777-3) See_Comment [Automated Parking Pand[employer] ge] The system which generated this result transmitted reference range: 150 - 328 10*3/?L. The reference range was not used to interpret this result as normal/abnormal. MPV (test code = 05254-4) 11.5 fL 9.8-13 NRBC/100 WBC (test code = 2457306692) See_Comment [Automated [employer] ssage] The system which generated this result transmitted reference range: 0.0 - 10.0 /100 WBCs. The reference range was not used to interpret this result as normal/abnormal. NRBC x10^3 (test code = 1814563218) <0.01 See_Comment [Automated Parking Pand[employer] ge] The system which generated this result transmitted reference range: 10*3/?L. The reference range was not used to interpret this result as normal/abnormal. GRAN MAT (NEUT) % (test code = 770-8) 83.5 % IMM GRAN % (test code = 5428188377) 0.30 % LYMPH % (test code = 736-9) 9.3 % MONO % (test code = 5905-5) 5.7 % EOS % (test code = 713-8) 1.1 % BASO % (test code = 706-2) 0.1 % GRAN MAT x10^3(ANC) (test code = 6279565840) 7.74 10*3/uL 1.99-6.95 H IMM GRAN x10^3 (test code = 4529201213) 0.03 10*3/uL 0-0.06 LYMPH x10^3 (test code = 731-0) 0.86 10*3/uL 1.09-3.23 L MONO x10^3 (test code = 742-7) 0.53 10*3/uL 0.36-1.02 EOS x10^3 (test code = 711-2) 0.10 10*3/uL 0.06-0.53 BASO x10^3 (test code = 704-7) <0.03 0.01-0.09 Lab Interpretation (test code = 76703-1) Abnormal [facility] GLUCOSE (AUTOMATED)2019-11-05 10:22:00* Test Item Value Reference Range Interpretation Comme nts POCT GLU (test code = 6735435300) 149 mg/dL 70-110 H Lab Interpretation (test cod e = 67194-8) Abnormal [facility] GLUCOSE (AUTOMATED)2019-11-05 06:15:00* Test Item Value Reference Range Interpretation Comme nts POCT GLU (test code = 5893477842) 204 mg/dL 70-110 H Lab Interpretation (test cod e = 18039-1) Abnormal [facility] GLUCOSE (AUTOMATED)2019-11-05 01:48:00* Test Item Value Reference Range Interpretation Comme nts POCT GLU (test code = 0364164747) 227 mg/dL 70-110 H Lab Interpretation (test cod e = 22804-3) Abnormal [facility] GLUCOSE (AUTOMATED)2019-11-04 22:30:00* Test Item Value Reference Range Interpretation Comme nts POCT GLU (test code = 4182326248) 132 mg/dL 70-110 H Lab Interpretation (test cod e = 48660-4) Abnormal [facility] GLUCOSE (AUTOMATED)2019-11-04 17:24:00* Test Item Value Reference Range Interpretation Comme nts POCT GLU (test code = 1487662284) 213 mg/dL 70-110 H Lab Interpretation (test cod e = 27292-3) Abnormal [facility] GLUCOSE (AUTOMATED)2019-11-04 13:31:00* Test Item Value Reference Range Interpretation Comme nts POCT GLU (test code = 5848951830) 203 mg/dL 70-110 H Lab Interpretation (test cod e = 50650-7) Abnormal [facility] GLUCOSE (AUTOMATED)2019-11-04 12:03:00* Test Item Value Reference Range Interpretation Comme nts POCT GLU (test code = 5714261890) 213 mg/dL 70-110 H Lab Interpretation (test cod e = 12361-3) [facility]03 23:50:00* Test Item Value Reference [...] ?Diabetes Indicated Lab Interpretation (test code = 80751-7) [facility] 23:28:00* Test Item Value Reference Range Interpretation Comme nts POCT GLU (test code = 1401859403) 273 mg/dL 70-110 H Lab Interpretation (test cod e = 31611-2) [facility] W [id number] 18:01:52CT Abdomen and Pelvis with intravenous contrast. [...] Rhoades in the emergency room at 12:00. [facility] User - 11/03/2019 12:02 [...] with Dr. Rhoades in the emergency room at12:00.[facility] [id number] 16:23:00* Test Item Value Reference Range Interpretation Comme nts APPEARANCE (test code = 9328054857) Clear Clear COLOR (test code = 4587772236) Yellow Yellow PH (test code = 6627196083) 4.8-8.0 SP GRAVITY (test code = 1062494206) 1.003-1.030 GLU U QUAL (test code = 1926581144) 500 mg/dL Normal A BLOOD (test code = 7069000433) Negative Negative KETONES (test code = 1654271331) Negative Negative PROTEIN (test code = 2887-8) Negative Negative UROBILIN (test code = 5955312168) Normal Normal BILIRUBIN (test code = 0334292902) Negative Negative NITRITE (test code = 2205608871) Negative Negative LEUK BIANCA (test code = 0371766113) Negative Negative RBC/HPF (test code = 6320970849) See_Comment [Automated Parking Pand[employer] ge] The system which generated this result transmitted reference range: 0 - 3 HPF. The reference range was not used to interpret this result as normal/abnormal. WBC/HPF (test code = 1322547279) See_Comment [Automated Parking [employer] ge] The system which generated this result transmitted reference range: 0 - 5 HPF. The reference range was not used to interpret this result as normal/abnormal. BACTERIA (test code = 7679724409) Negative Negative MUCOUS (test code = 2039063714) Slight Negative LPF A SQ EPITH (test code = 3854473893) <1 HPF Lab Interpretation (test code = 21432-4) Abnormal [facility]. METABOLIC PANEL (41376)2019-11-03 16:04:00* Test Item Value Reference Range Interpretation Comme nts NA (test code = 4219124011) 137 mmol/L 135-145 K (test code = 1026856059) 4.3 mmol/L 3.5-5 CL (test code = 7732306472) 98 mmol/L 98-108 CO2 TOTAL (test code = 9133447115) 28 mmol/L 23-31 AGAP (test code = 8251958706) 2-16 BUN (test code = 9955798469) 11 mg/dL 7-23 GLUCOSE (test code = 7175330462) 356 mg/dL 70-110 H CREATININE (test code = 8609160710) 1.01 mg/dL 0.6-1.25 TOTAL BILI (test code = 0509023228) 0.9 mg/dL 0.1-1.1 CALCIUM (test code = 5673110766) 9.1 mg/dL 8.6-10.6 T PROTEIN (test code = 5667448508) 7.5 g/dL 6.3-8.2 ALBUMIN (test code = 7238437986) 4.7 g/dL 3.5-5 ALK PHOS (test code = 5443613428) 73 U/L 34-122 ALTv (test code = 1742-6) 38 U/L 5-50 AST(SGOT) (test code = 0037689665) 25 U/L 13-40 eGFR Calculation (Non-) (test code = 7836248470) mL/min/1.73m2 eGFR Calculation () (test code = 9852263839) mL/min/1.73m2 KATE (test code = KATE) Association [...] imaging tests). Lab Interpretation (test code = 75092-3) [facility] 16:03:[facility]* Test Item Value Reference Range Interpretation Comme nts LIPASE (test code = 8276447616) 48 U/L 0-220 Lab Interpretation (test cod e = 89988-0) [facility] WITH [id number] 15:51:00* Test Item Value Reference Range Interpretation [...] 32.7 g/dL 31.2-35 RDW-SD (test code = 58342-9) 37.8 fL 38.5-51.6 L RDW-CV (test code = 788-0) 12.7 % 12.1-15.4 PLT (test code = 777-3) See_Comment [Automated message] The system which generated this result transmitted reference range: 150 - 328 10*3/?L. The reference range was not used to interpret this result as normal/abnormal. MPV (test code = 73713-0) 10.9 fL 9.8-13 NRBC/100 WBC (test code = 1319218287) See_Comment [Automated message] The system which generated this result transmitted reference range: 0.0 - 10.0 /100 WBCs. The reference range was not used to interpret this result as normal/abnormal. NRBC x10^3 (test code = 9294442000) <0.01 See_Comment [Automated message] The system which generated this result transmitted reference range: 10*3/?L. The reference range was not used to interpret this result as normal/abnormal. GRAN MAT (NEUT) % (test code = 770-8) 91.5 % IMM GRAN % (test code = 3824693963) 0.50 % LYMPH % (test code = 736-9) 3.9 % MONO % (test code = 5905-5) 3.8 % EOS % (test code = 713-8) 0.1 % BASO % (test code = 706-2) 0.2 % GRAN MAT x10^3(ANC) (test code = 3364359188) 12.89 10*3/uL 1.99-6.95 H IMM GRAN x10^3 (test code = 7387701787) 0.07 10*3/uL 0-0.06 H LYMPH x10^3 (test code = 731-0) 0.55 10*3/uL 1.09-3.23 L MONO x10^3 (test code = 742-7) 0.54 10*3/uL 0.36-1.02 EOS x10^3 (test code = 711-2) <0.03 0.06-0.53 L BASO x10^3 (test code = 704-7) 0.03 10*3/uL 0.01-0.09 Lab Interpretation (test code = 14154-1) Abnormal [facility]"
[2024-09-15] MEDS ORDERED: NA CHLORIDE 0.9% 1,000 ML ONE (20:19)
[2024-09-15] MEDS ORDERED: GLUCAGON 1 MG/VIAL ONE ×2 (20:20→21:00)
[2024-09-15 20:27] LABS: Absolute Basophils 0.1 K/uL (0-0.5); Absolute Eosinophils 0.1 K/uL (0-0.5); Absolute Lymphocytes (CBC) 1.6 K/uL (0.7-4.9); Absolute Monocytes 0.4 K/uL (0.1-1.3); Absolute Neutrophil 6.5 K/uL (1.8-8.0); Basophils % 0.6 % (0-1.3); Eosinophils % 1.7 % (0-4.4); Hematocrit 52.5 % (39.6-49.0); Hemoglobin 17.3 g/dL (13.6-17.9); Lymphocytes % 18.5 % (15.3-44.8); MCH 26.9 pg (27.0-35.0); MCHC 32.9 g/dL (32.0-36.0); MCV 81.7 fL (80-100); MPV 8.5 fL (7.6-11.3); Neutrophils % 74.2 % (41.7-73.7); Nucleated Red Blood Cells % 0.1 % (0-0); Platelets 150 thou/uL (152-406); RBC Red Blood Cell Count 6.43 M/uL (4.33-5.43); Red Cell Distribution Width 13.4 % (12.1-15.2)
[2024-09-15] MEDS ORDERED: ONDANSETRON 4 MG/2 ML VIAL ONE (20:30)
[2024-09-15 20:46] LABS: Anion Gap 8.3 mEq/L (5.0-15.0); Potassium 4.3 mEq/L (3.5-5.1)
--- NOTE | 2024-09-15 20:51 | ER ---
Nurse's Notes [facility] Name: Chente Minaya Age: 54 yrs Sex: Male : 1970 Arrival Date: 09/15/2024 Time: 19:16 Bed 4 Private MD: Diagnosis: Food in esophagus Presentation: 09/15 19:29 Chief complaint: Patient states: I have Chickfila stuck in my throat, been there since tm6 about noon. Usually when this happens, Dr. Rader has to come in and scope me. Coronavirus screen: Client denies travel out of the [place] in the last 14 days. Ebola Screen: Patient negative for fever greater than or equal to 101.5 degrees Fahrenheit, and additional compatible Ebola Virus Disease symptoms Patient denies exposure to infectious person. Patient denies travel to an Ebola-affected area in the 21 days before illness onset. No symptoms or risks identified at this time. Initial Sepsis Screen: Does the patient meet any 2 criteria? No. Patient's initial sepsis screen is negative. Does the patient have a suspected source of infection? No. Patient's initial sepsis screen is negative. Risk Assessment: Do you want to hurt yourself or someone else? Patient reports no desire to harm self or others. Onset of symptoms was September 15, 2024 at 12:00. 19:29 Method Of Arrival: Ambulatory tm6 19:29 Acuity: GILDARDO 3 tm6 Triage Assessment: 19:29 General: Appears in no apparent distress. Behavior is calm, cooperative. Pain: Denies tm6 pain. EENT: Reports food stuck in throat. Neuro: Level of Consciousness is awake, alert, obeys commands, Oriented to person, place, time, situation. Cardiovascular: Patient's skin is warm and dry. Respiratory: Airway is patent Respiratory effort is even, unlabored, Respiratory pattern is regular, symmetrical. GI: No signs and/or symptoms were reported involving the gastrointestinal system. Abdomen is round non-distended. : No signs and/or symptoms were reported regarding the genitourinary system. Derm: No signs and/or symptoms reported regarding the dermatologic system. Musculoskeletal: No signs and/or symptoms reported regarding the musculoskeletal system. Historical: - Allergies: 19:28 Bactrim; tm6 19:28 mushroom; tm6 19:28 Mustard; tm6 19:28 PENICILLINS; tm6 19:28 Reglan; tm6 19:28 Sulfa (Sulfonamide Antibiotics); tm6 19:28 surgical steel; tm6 19:28 tramadol; tm6 19:28 Tylenol-Codeine #3; tm6 19:28 Tylenol-Codeine #4; tm6 - PMHx: 19:28 diabetes mellitus; GERD; Migraine; hiatal hernia (Migraine); tm6 - PSHx: 19:28 Appendectomy; tm6 - Immunization history:: Flu vaccine is not up to date. - Infectious Disease History:: Denies. - Social history:: Smoking status: Patient/guardian denies using tobacco, but has a distant history of tobacco abuse. Screenin:[facility] ED Fall Risk Assessment (Adult) History of falling in the last 3 months, jj7 including since admission No falls in past 3 months (0 pts) Confusion or Disorientation No (0 pts) Intoxicated or Sedated No (0 pts) Impaired Gait No (0 pts) Mobility Assist Device Used No (0 pt) Altered Elimination No (0 pt) Score/Fall Risk Level 0 - 2 = Low Risk Oriented to surroundings, Maintained a safe environment, Educated pt \T\ family on fall prevention, incl call for assistance when getting out of bed, Assessed \T\ reinforced patient's understanding of fall precautions. Abuse screen: Denies threats or abuse. Nutritional screening: No deficits noted. Tuberculosis screening: No symptoms or risk factors identified. Assessment: 19:39 General: Appears in no apparent distress. uncomfortable, Behavior is calm, cooperative, jj7 appropriate for age. Pain: Complains of pain in face. Neuro: Reports headache in left. EENT: Reports FB(CHICKEN) STUCK IN HIS THROAT SINCE 14P. 22:44 General: Appears in no apparent distress. comfortable, Behavior is calm, cooperative. al5 Pain: Denies pain. Neuro: Level of Consciousness is awake, alert, obeys commands, Oriented to person, place, time, situation. Cardiovascular: Capillary refill < 3 seconds Patient's skin is warm and dry. Respiratory: Airway is patent Respiratory effort is even, unlabored, Respiratory pattern is regular, symmetrical. GI: No signs and/or symptoms were reported involving the gastrointestinal system. : No signs and/or symptoms were reported regarding the genitourinary system. EENT: No signs and/or symptoms were reported regarding the EENT system. Derm: Skin is intact, is healthy with good turgor, Skin is pink, warm \T\ dry. normal. Musculoskeletal: No signs and/or symptoms reported regarding the musculoskeletal system. 22:44 Reassessment: patient food bolus eliminated post glucagon, patient discharged home by al5 dr lange. patient given discharge instructions. Vital Signs: 19:27 Resp 17; Temp 98.1(TE); Weight 124.74 kg; Height 6 ft. 2 in. ; Pain 0/10; tm6 19:29 BP 163 / 93; Pulse 88; Pulse Ox 97% on R/A; MAP 109 mmHg; tm6 20:27 BP 143 / 86; Pulse 99; Resp 17; Pulse Ox 97% ; jj7 21:34 BP 164 / 96; Pulse 85; Resp 17; Temp 98.1; Pulse Ox 97% ; jj7 22:00 BP 140 / 89; Pulse 79; Resp 16; Pulse Ox 97% on R/A; al5 22:24 BP 151 / 98; Pulse 75; Resp 17; Pulse Ox 96% on R/A; al5 19:27 Body Mass Index 35.31 (124.74 kg, 187.96 cm) tm6 19:27 Pain Scale: Adult tm6 ED Course: 19:18 Patient arrived in ED. im 19:29 Arm band placed on left wrist. tm6 19:30 Triage completed. tm6 19:34 [facility] kb 19:34 Jorge Alberts MD is Attending Physician. kb 19:37 Maude Fleming RN is Primary Nurse. jj7 19:39 Patient has correct armband on for positive identification. Bed in low position. Call j7 light in reach. Provided Education on: USE OF CALL MERIDA. 20:20 Initial lab(s) drawn, by me, sent to lab. Inserted saline lock: 20 gauge in right jj7 antecubital area, using aseptic technique. Blood collected. Flushed with 10 mL NS. 20:26 CBC with Diff Sent. jj7 20:26 BMP Sent. jj7 20:32 Diet: SODA AND STRAW PROVIDED . jj7 20:50 Prince Lange MD is Hospitalizing Provider. kb 22:38 IV discontinued, intact, bleeding controlled, No redness/swelling at site. Pressure sa1 dressing applied. 22:44 No provider procedures requiring assistance completed. al5 Administered Medications: 20:26 Drug: Glucagon IVP 1 mg IVP once Route: IVP; Site: right antecubital; jj7 21:02 Follow up: Response: No adverse reaction jj7 20:26 Drug: NS 0.9% IV 1000 ml IV at 1000 ml once; to be given as a bolus over 60 minutes jj7 Route: IV; Rate: 1000 ml; Site: right antecubital; 23:20 Follow up: IV Status: Completed infusion; IV Intake: 1000ml al5 20:32 Drug: Ondansetron IVP 4 mg IVP once; over 2 minutes Route: IVP; Site: right antecubital;jj7 21:02 Follow up: Response: Nausea is decreased jj7 21:02 Drug: Glucagon IVP 1 mg IVP once Route: IVP; Site: right antecubital; jj7 23:20 Follow up: Response: No adverse reaction al5 Medication: 19:39 VIS not applicable for this client. jj7 Intake: 23:20 IV: 1000ml; Total: 1000ml. al5 Outcome: 20:51 Decision to Hospitalize by Provider. kb 23:21 Discharged to home ambulatory, al5 23:21 Condition: good 23:21 Discharge instructions given to patient, Instructed on discharge instructions, follow up and referral plans. Demonstrated understanding of instructions, follow-up care, 23:21 Patient left the ED. al5 Signatures: Shelly Blackburn FNP-C FNP-Maude Cortez RN RN jj7 Deborah Collins Tawney RN RN [id number] Bruna Christianson RN RN al5 Sultan wanda Mandujano
--- NOTE | 2024-09-15 20:51 | EDPHYS ---
Physician Documentation [facility] Name: Chente Minaya Age: 54 yrs Sex: Male : 1970 Arrival Date: 09/15/2024 Time: 19:16 Bed 4 Private MD: ED Physician Jorge Alberts HPI: 09/15 22:00 This 54 yrs old Male presents to ER via Ambulatory with complaints of Foreign Body In kb Throat. 22:00 Pt is a 54 year old male who presents for piece of meat stuck in esophagus since noon kb today. Pt states this has happened multiple times in the past and he normally has to have it removed by one of the GI doctors. States he has been unable to get anything up or down. . Historical: - Allergies: 19:28 Bactrim; tm6 19:28 mushroom; tm6 19:28 Mustard; tm6 19:28 PENICILLINS; tm6 19:28 Reglan; tm6 19:28 Sulfa (Sulfonamide Antibiotics); tm6 19:28 surgical steel; tm6 19:28 tramadol; tm6 19:28 Tylenol-Codeine #3; tm6 19:28 Tylenol-Codeine #4; tm6 - PMHx: 19:28 diabetes mellitus; GERD; Migraine; hiatal hernia (Migraine); tm6 - PSHx: 19:28 Appendectomy; tm6 - Immunization history:: Flu vaccine is not up to date. - Infectious Disease History:: Denies. - Social history:: Smoking status: Patient/guardian denies using tobacco, but has a distant history of tobacco abuse. ROS: 21:45 Constitutional: As per HPI kb Exam: 21:45 Constitutional: This is a well developed, well nourished patient who is awake, alert, kb and in no acute distress. Head/Face: Normocephalic, atraumatic. ENT: Moist Mucous membranes Cardiovascular: Regular rate Respiratory: Respirations even and unlabored. No increased work of breathing. Talking in full sentences Skin: Warm, dry with normal turgor. Normal color. MS/ Extremity: Pulses equal, no cyanosis. Neurovascular intact. Full, normal range of motion. Neuro: Awake and alert, GCS 15, oriented to person, place, time, and situation. Vital Signs: 19:27 Resp 17; Temp 98.1(TE); Weight 124.74 kg; Height 6 ft. 2 in. ; Pain 0/10; tm6 19:29 BP 163 / 93; Pulse 88; Pulse Ox 97% on R/A; MAP 109 mmHg; tm6 20:27 BP 143 / 86; Pulse 99; Resp 17; Pulse Ox 97% ; jj7 21:34 BP 164 / 96; Pulse 85; Resp 17; Temp 98.1; Pulse Ox 97% ; jj7 22:00 BP 140 / 89; Pulse 79; Resp 16; Pulse Ox 97% on R/A; al5 22:24 BP 151 / 98; Pulse 75; Resp 17; Pulse Ox 96% on R/A; al5 19:27 Body Mass Index 35.31 (124.74 kg, 187.96 cm) tm6 19:27 Pain Scale: Adult tm6 MDM: 19:34 Medical Screening Exam initiated kb 22:02 Differential diagnosis: food bolus, FB in esophagus. Data reviewed: vital signs, nurses kb notes. Consideration of Admission/Observation Patient was admitted/placed on observation. Escalation of care including admission/observation considered. Management of patient was discussed with the following: Hospitalist: Dr Lange accepts pt for admission. Knifeman: Dr Rader accepts pt for consult, will take to endo tomorrow morning. Bakery Decorator called to add to schedule. Counseling: I had a detailed discussion with the patient and/or guardian regarding the historical points, exam findings, and any diagnostic results supporting the discharge/admit diagnosis, lab results, the need for further work-up and treatment in the hospital. 09/15 19:35 Order name: CBC with Diff; Complete Time: 20:35 kb 09/15 19:35 Order name: BMP; Complete Time: 20:51 kb 09/15 21:03 Order name: Magnesium; Complete Time: 21:31 EDMS 09/15 21:03 Order name: Phosphorus; Complete Time: 21:31 EDMS 09/15 21:03 Order name: Urinalysis w/ reflexes EDMS 09/15 21:03 Order name: Basic Metabolic Panel EDMS 09/15 21:03 Order name: Basic Metabolic Panel EDMS 09/15 21:03 Order name: CBC with Automated Diff EDMS 09/15 21:03 Order name: CBC with Automated Diff EDMS 09/15 22:41 Order name: Hemoglobin A1c; Complete Time: 22:43 [facility] 09/15 19:35 Order name: IV Start; Complete Time: 20:26 kb Administered Medications: 20:26 Drug: Glucagon IVP 1 mg IVP once Route: IVP; Site: right antecubital; jj7 21:02 Follow up: Response: No adverse reaction j7 20:26 Drug: NS 0.9% IV 1000 ml IV at 1000 ml once; to be given as a bolus over 60 minutes j7 Route: IV; Rate: 1000 ml; Site: right antecubital; 23:20 Follow up: IV Status: Completed infusion; IV Intake: 1000ml al5 20:32 Drug: Ondansetron IVP 4 mg IVP once; over 2 minutes Route: IVP; Site: right antecubital;jj7 21:02 Follow up: Response: Nausea is decreased j7 21:02 Drug: Glucagon IVP 1 mg IVP once Route: IVP; Site: right antecubital; jj7 23:20 Follow up: Response: No adverse reaction al5 Disposition Summary: 09/15/24 20:51 Hospitalization Ordered Notes: Hospitalization Status: Observation kb Provider: Prince charles Lange Location: Telemetry/MedSurg (observation) kb Condition: Stable kb Problem: new kb Symptoms: are unchanged kb Bed/Room Type: Standard Room Assignment: (09/15/24 22:28) rv1 Diagnosis - Food in esophagus kb Forms: - Medication Reconciliation Form kb - SBAR form kb - Leadership Thank You Letter kb Signatures: Dispatcher [employer] EDUT Shelly Blackburn FNP-C FNP-Maude Cortez RN RN jj7 Sofi Estrada rv1 Corona Caceres RN RN tm6 Bruna Christianson RN al5 Corrections: (The following items were deleted from the chart) 21:21 20:51 kb rv1 22:28 21:21 229 rv1 rv1
[2024-09-15] MEDS ORDERED: ONDANSETRON 4 MG/2 ML VIAL IV PRN (21:00)
[2024-09-15] MEDS ORDERED: NA CHLORIDE 0.9% 1,000 ML IV SCH (21:00)
--- NOTE | 2024-09-15 21:03 | P.HP ---
Certification for Inpatient Patient admitted to: Observation With expected LOS: <2 Midnights Practitioner: I am a practitioner with admitting privileges, knowledge of patient current condition, hospital course, and medical plan of care. Services: Services provided to patient in accordance with Admission requirements found in Title 42 Section 412.3 of the Code of Federal Regulations Patient History Date of Service: 09/15/24 Reason for admission: Food bolus History of Present Illness: Patient is a 58-year-old male with type 2 diabetes mellitus, GERD and chronic pain. He is being admitted for endoscopic evaluation after he presented with food bolus. Patient has a history of hiatal hernia. He had some chicken earlier today at [facility]. He suddenly felt a sense of constriction involving his upper esophagus. He has not been able to pass liquid or solid food since. He is here for evaluation of food impaction. ER has reached out to Dr. Rader who will address this endoscopically tomorrow morning. Allergies acetaminophen [From Tylenol] Allergy (Verified 04/04/12 17:18) Hives/Rash coconut oil Allergy (Verified 06/26/15 10:27) Nausea/Vomiting codeine phosphate [From Tylenol-Codeine #3] Allergy (Unverified 01/19/17 01:07) Unknown mushroom Allergy (Verified 06/26/15 10:27) Nausea/Vomiting Penicillins Allergy (Verified 04/04/12 17:18) Hives/Rash Sulfa (Sulfonamide Antibiotics) Allergy (Unverified 08/01/15 00:10) Unknown sulfamethoxazole [From Bactrim] Allergy (Verified 04/04/12 17:18) Hives/Rash trimethoprim [From Bactrim] Allergy (Verified 04/04/12 17:18) Hives/Rash uracil mustard Allergy (Verified 06/26/15 10:27) Nausea/Vomiting Bactrim DS Allergy (Uncoded 06/26/15 12:44) Hives/Rash Tyle Allergy (Uncoded 02/18/16 00:29) Unknown Tyleno Allergy (Uncoded 04/13/16 23:49) Unknown Tylenol Allergy (Uncoded 05/08/16 21:24) Unknown Tylenol- Allergy (Uncoded 06/30/16 02:24) Unknown Tylenol-Co Allergy (Uncoded 05/02/16 10:40) Unknown Tylenol-Codeine Allergy (Uncoded 02/05/16 14:51) Unknown Tylenol-Codeine #4 Allergy (Uncoded 12/02/15 21:06) Unknown Home Medications: Hydrocodone Bit/Acetaminophen [Hydrocodon-Acetaminoph 7.5-325] 1 tab PO BID 05/23/23 Insulin Detemir [Levemir Flexpen] 30 units SQ BID 05/23/23 Hydrocodone 10/APAP 325 [[place] 10/325] 1 tab PO Q6H PRN #30 tab 05/24/23 Smz./Tmp. [Bactrim Ds 800 MG/160 MG] 1 tab PO BID #20 tab 05/24/23 levoFLOXacin [Levaquin] 500 mg PO DAILY #10 tab 05/24/23 - Past Medical/Surgical History Diabetic: Yes -: Diabetes -: GERD -: Migraine -: depression -: neuropathy -: stuck food bolus in throat -: surgery left hand staph infection -: heel spur left foot -: removal of food bolus x 20 - Family History Father -: Heart disease, Diabetes Mother -: Heart disease - Social History Alcohol use: Yes CD- Drugs: No Caffeine use: Yes Physical Examination - Physical Exam General: In no apparent distress HEENT: Atraumatic, Normocephalic Respiratory: Clear to auscultation bilaterally, Normal air movement Cardiovascular: No edema, Normal pulses, Regular rate/rhythm, Normal S1 S2 Musculoskeletal: No clubbing, No swelling, No contractures, No erythema, No tenderness, No warmth Neurological: Normal speech - Studies Laboratory Data (last 24 hrs) 09/15/24 09/15/24 20:17 20:17 WBC 8.80 Hgb 17.3 Hct 52.5 H Plt Count 150 L Sodium 137 Potassium 4.3 BUN 14 Creatinine 1.32 H Glucose 139 H Assessment and Plan - Problems (Diagnosis) (1) Diabetes mellitus Current Visit: Yes Status: Acute (2) Food impaction of esophagus Onset Date: 05/02/16 Current Visit: No Status: Acute - Plan Assessment This is a 54-year-old male with hypertension, diabetes mellitus, GERD and hiatal hernia. He is presenting for food impaction after having some chicken earlier today at the [facility]. Patient is waiting to be evaluated by gastroenterology for endoscopic evaluation and food retrieval. Food impaction Hiatal hernia GERD Type 2 diabetes mellitus Hypertension Plan: Will admit under observation Start patient on IV fluid infusion, antiemetics Will also go ahead and put IV PPI and Reglan Gastroenterology has been consulted by ER N.p.o. after midnight for EGD tomorrow Patient is full code - Advance Directives Does patient have a Living Will: No Does patient have a Durable POA for Healthcare: No
[2024-09-15 21:20] LABS: Phosphorus 2.6 mg/dL (2.5-4.9)
[2024-09-15] MEDS ORDERED: SODIUM CHLORIDE 0.9% 10ML INJ IV PRN (21:35)
[2024-09-15] MEDS ORDERED: PANTOPRAZOLE 40 MG INJ IVP SCH (21:35)
[2024-09-15] MEDS ORDERED: D10W 125 ML IV PRN (21:42)
[2024-09-15] MEDS ORDERED: GLUCAGON 1 MG/VIAL IM PRN (21:42)
[2024-09-15] MEDS ORDERED: METOCLOPRAMIDE 10 MG/2mL INJ IV SCH (22:00)
--- NOTE | 2024-09-15 22:00 | P.DS ---
Admission Date: 09/15/24 Discharge Date: 09/15/24 Disposition: ROUTINE DISCHARGE Reason for Admission: Food bolus - Problems (1) Diabetes mellitus Current Visit: Yes Status: Acute (2) Food impaction of esophagus Onset Date: 05/02/16 Current Visit: No Status: Acute Brief History of Present Illness: Patient is a 58-year-old male with type 2 diabetes mellitus, GERD and chronic pain. He is being admitted for endoscopic evaluation after he presented with food bolus. Patient has a history of hiatal hernia. He had some chicken earlier today at [employer]. He suddenly felt a sense of constriction involving his upper esophagus. He has not been able to pass liquid or solid food since. He is here for evaluation of food impaction. ER has reached out to Dr. Rader who will address this endoscopically tomorrow morning. Hospital Course: Patient was able to spontaneously passed down the food bolus after a second dose of glucagon. He does not wish to stay. He will be discharge today. General: Alert, In no apparent distress HEENT: Atraumatic, Normocephalic Neck: Supple Respiratory: Clear to auscultation bilaterally, Normal air movement Cardiovascular: No edema, Normal pulses, Regular rate/rhythm, Normal S1 S2 Musculoskeletal: No clubbing, No swelling, No contractures, No erythema, No tenderness, No warmth Neurological: Normal speech Laboratory Data at Discharge: WBC 8.80 thou/uL (4.3-10.9) 09/15/24 20:17 Hgb 17.3 g/dL (13.6-17.9) 09/15/24 20:17 Hct 52.5 % (39.6-49.0) H 09/15/24 20:17 Plt Count 150 thou/uL (152-406) L 09/15/24 20:17 Sodium 137 mEq/L (136-145) 09/15/24 20:17 Potassium 4.3 mEq/L (3.5-5.1) 09/15/24 20:17 BUN 14 mg/dL (7-18) 09/15/24 20:17 Creatinine 1.32 mg/dL (0.70-1.30) H 09/15/24 20:17 Glucose 139 mg/dL (74-106) H 09/15/24 20:17 Phosphorus 2.6 mg/dL (2.5-4.9) 09/15/24 20:17 Magnesium 2.0 mg/dL (1.6-2.4) 09/15/24 20:17 Home Medications: Hydrocodone Bit/Acetaminophen [Hydrocodon-Acetaminoph 7.5-325] 1 tab PO BID 05/23/23 Insulin Detemir [Levemir Flexpen] 30 units SQ BID 05/23/23 Hydrocodone 10/APAP 325 [[place] 10/325] 1 tab PO Q6H PRN #30 tab 05/24/23 Smz./Tmp. [Bactrim Ds 800 MG/160 MG] 1 tab PO BID #20 tab 05/24/23 levoFLOXacin [Levaquin] 500 mg PO DAILY #10 tab 05/24/23 Followup: NONE,NONE [Primary Care Provider] -
[2024-09-15 23:45] VITALS: TEMP 98.1
[2024-09-15 23:54] VITALS: BP 151/98; O2SAT 96
[2024-09-16] MEDS ORDERED: INSULIN REGULAR (HUMAN) 100 UNIT/ML SQ SCH (07:30)
== END 2024-09-15 22:44 | disposition home or self-care (01) ==
LOC: ER 19:16 → 2ND 21:00
PROVIDERS: ADMIT Internal Medicine; ATTEND Internal Medicine
DX: T18.128A Food in esophagus causing other injury, initial encounter (principal); I10 Essential (primary) hypertension; K21.9 Gastro-esophageal reflux disease without esophagitis; K44.9 Diaphragmatic hernia without obstruction or gangrene
CPT/HCPCS: 96361; 85025; 80048; 36415; 83735; 84100; 83036; 96375; 96374; 99284; J1610 ×2; J2405; J7030; G0378 ×2

== ENCOUNTER 2024-09-16 19:22 | Observation (INO) | payer OTHER ==
--- OUTSIDE RECORDS SUMMARY | 2024-09-16 19:28 | XMS REPORT | Continuity of Care Document ---
Author Name Unknown Address [address] [facility] [address] [place] [address] [facility] thconnect Address [address] [facility]. [address] [place] [address] Care Team Providers Care Butcher Head Name Role Phone Pcp, Patient Does Not Have A Primary Care Physic alondra YADIEL HAQ Attending Clinician Unavailable YADIEL HAQ Attending Clinician Unavailable Yadiel Haq MD Attending Clinician [phone] VIRI GUZMÁN Attending Clinician Unavailable Adam Servin PA-C Attending Clinician [phone] ADAM SERVIN Attending Clinician Unavailable Doctor Unassigned, [place] Attending Clinician U navailable DAVID NOVOA Attending Clinician Unavailable ALEXIS DAWN Attending Clinician Unavailable Alexis Dawn MD Attending Clinician [phone] STEPHANIE ONEAL Attending Clinician Unavailable David MILLER Stephanie S Attending Clinician [phone] SILVINA SUN Attending Clinician Unavailable Norberto Bernal MD Attending Clinician [phone] NORBERTO BERNAL Attending Clinician Unavail able NORBERTO BERNAL Attending Clinician Unavail able Yazmin Ashby Attending Clinician [phone] Yazmin APPLE Attending Clinician Unavailable Hortensia Nicolas Attending Clinician [phone] Ervin Rhoades MD Attending Clinician [phone] Luis Arshad MD Attending Clinician [phone] LUIS ARSHAD Attending Clinician Unavailable STEPHANIE ONEAL Admitting Clinician Unavailable Luis Arshad MD Admitting Clinician [phone] LUIS ARSHAD Admitting Clinician Unavailable Payers Payer Name Policy Type Policy Number Effective Date Expirati on Date Source [employer] [id number] 2021 00:00:00 Problems Condition Name Condition Details Condition Category Status Onset Date Resolution Date Last Treatment Date Treating Clinician Comments Source Abdominal pain Abdominal pain Disease Active 11-04 00:00: 00 [facility] Obesity (BMI 30-39.9) Obesity (BMI 30-39.9) Disease Active 11-03 00:00: 00 [facility] Acute postoperat momo abdominal pain Acute postoperat momo abdominal pain Disease Active 11-03 00:00: 00 [facility] Morbid obesity with body mass index of 50 or higher Morbid obesity with body mass index of 50 or higher Disease Active 2015-09 00:00: 00 [facility] Morbid obesity with body mass index of 40.0-49.9 Morbid obesity with body mass index of 40.0-49.9 Disease Active 2015-09 00:00: 00 [facility] Allergies, Adverse Reactions, Alerts Allergy Name Allergy Type Status Severity Reaction(s) Onset Date Inactive Date Treating Clinician Comments Source METOCLOP RAMIDE DRUG INGREDI Active Other-Cmnt 2021-09 00:00: 00 [facility] Metoclop ramide Propensi ty to adverse reaction s Active Other - See comments 2021-09 00:00: 00 [facility] METFORMI N DRUG INGREDI Active Diarrhea 2021-09 00:00: 00 [facility] Metformi n Drug Allergy Active Diarrhea 2021-09 00:00: 00 [facility] SULFA (SULFONA MIDE ANTIBIOT ICS) Drug Class Active Hives 2018-0 1-21 00:00: 00 [facility] ACETAMIN OPHEN-CO DEINE DRUG Active Hives 2018-0 -21 00:00: 00 [facility] Sulfa (Sulfona mide Antibiot ics) Propensi ty to adverse reaction s Active Hives 2018-0 -21 00:00: 00 [facility] Sulfa (Sulfona mide Antibiot ics) Propensi ty to adverse reaction s Active Hives 2017-0 -21 00:00: 00 [facility] Acetamin ophen-Co deine Propensi ty to adverse reaction s Active Hives 2017-0 10-05 00:00: 00 [facility] Penicill ins Propensi ty to adverse reaction s Active Hives 2011-0 8-10 00:00: 00 [facility] Sulfa Dyne Propensi ty to adverse reaction s Active Hives 2011-0 8-10 00:00: 00 [facility] Penicill ins Propensi ty to adverse reaction s Active Hives 2011-0 8-10 00:00: 00 [facility] PENICILL INS Drug Class Active Hives 2011-0 8-10 00:00: 00 [facility] SULFA DYNE DRUG Active Hives 2011-0 8-10 00:00: 00 [facility] Social History Social Habit Start Date Stop Date Quantity Comments Source History of tobacco use Current smoker [facility] Alcoholic beverage intake 2024-02-29 00:00:00 2024-02-29 00:00:00 Current drinker of alcohol (finding) [facility] Exposure to SARS-CoV-2 (event) 2022-07-02 00:00:00 2022-07-12 20:23:00 Not sure [facility] Alcohol intake 2022-07-12 00:00:00 2022-07-12 00:00:00 Current drinker of alcohol (finding) [facility] History of Social function 2020-04-06 00:00:00 2020-04-06 00:00:00 [facility] History SDOH Financial 2019-11-04 00:00:00 2019-11-04 00:00:00 5 [facility] Tobacco use and exposure 2019-11-03 00:00:00 2019-11-03 00:00:00 Smokeless tobacco non-user [facility] Sex assigned at 1970 00:00:00 1970 00:00:00 [facility] Smoking Status Start Date Stop Date Source Ex-smoker 2019-11-03 00:00:00 2019-11-03 00:00:00 [facility] Medications Ordered Medication Name Filled Medication Name Start Date Stop Date Current Medication? Ordering Clinician Indication Dosage Frequency Signature (SIG) Comments Components Source ketorolac (TORADOL) injection 30 mg 06-06 19:30: 00 06-06 20:32 :00 No 30mg 30 mg, Slow IV Push, ONCE, 1 dose, On 06/06/24 at 1430, Routine [facility] fentanyl PF (SUBLIMAZE (PF)) injection 25 mcg 06-06 18:30: 00 06-06 20:33 :00 No 25ug 25 mcg, Slow IV Push, ONCE, 1 dose, On 06/06/24 at 1330, STAT [facility] ondansetron (ZOFRAN (PF)) injection 4 mg 06-06 18:30: 00 06-06 20:30 :00 No 4mg 4 mg, Slow IV Push, ONCE, 1 dose, On Fri06/06/24 at 1330, MANDEEP [facility] NaCl 0.9% (NS) bolus infusion 1,000 mL 06-06 18:30: 00 06-06 21:41 :00 No 1000mL at 999 mL/hr, 1,000 mL, IV Infusion, ONCE, 1 dose, On 06/06/24 at 1330, STAT [facility] NaCl 0.9% (NS) bolus infusion 1,000 mL 02-28 21:45: 00 02-28 22:22 :00 No 1000mL at 999 mL/hr, 1,000 mL, IV Infusion, ONCE, 1 dose, On Fri02/29/24 at 1645, MANDEEP [facility] ketorolac (TORADOL) injection 15 mg 02-28 21:30: 00 02-28 21:25 :00 No 15mg 15 mg, Slow IV Push, ONCE, 1 dose, [facility]02/29/24 [facility] 1630[facility] 4 mg 02-28 21:30: 00 02-28 21:27 :00 No 4mg 4 mg, Slow IV Push, ONCE, 1 dose, On Fri02/29/24 at 1630, [facility] diphenhydrA MINE (BENADRYL) injection 25 mg 02-28 21:00: 00 02-28 21:28 :00 No 25mg 25 mg, Slow IV Push, ONCE, 1 dose, On Fri02/29/24 at 1600, STAT [facility] dicyclomine 10 mg capsule 02-28 00:00: 00 Yes [id number] 10mg Take 1 capsule by mouth 4 (four) times daily as needed for Abdominal pain. [facility] ketorolac (TORADOL) injection 30 mg 2021-09 03:15: 00 07-13 02:09 :00 No 30mg 30 mg, Slow IV Push, ONCE, 1 dose, On Fri07/12/22 at 2215, Routine [facility] FENTanyl PF (SUBLIMAZE (PF)) injection 50 mcg 2021-09 03:00: 00 07-13 02:09 :00 No 50ug 50 mcg, Intravenou s, ONCE, 1 dose, On Fri07/12/22 at 2200, Routine [facility] NaCl 0.9% (NS) bolus infusion 1,000 mL 2021-09 02:15: 00 07-13 02:40 :00 No 1000mL at 999 mL/hr, 1,000 mL, IV Infusion, ONCE, 1 dose, On Fri07/12/22 at 2115, STAT [facility] ketorolac (TORADOL) injection 30 mg 2021-09 03:30: 00 07-07 02:44 :00 No 30mg 30 mg, Slow IV Push, ONCE, 1 dose, On 07/06/22 at 2230, Routine [facility] NaCl 0.9% (NS) bolus infusion 500 mL 2021-09 02:30: 00 07-07 03:17 :00 No 500mL at 999 mL/hr, 500 mL, IV Infusion, ONCE, 1 dose, On 07/06/22 at 2130, STAT [facility] metoclopram kevin HCl (REGLAN) injection 10 mg 2021-09 02:30: 00 07-07 02:45 :00 No 10mg 10 mg, Slow IV Push, ONCE, 1 dose, On 07/06/22 at 2130, MANDEEP [facility] diphenhydrA MINE (BENADRYL) injection 25 mg 2021-09 02:30: 00 07-07 02:43 :00 No 25mg 25 mg, Slow IV Push, ONCE, 1 dose, On 07/06/22 at 2130, STAT [facility] butorphanol (STADOL) injection 2 mg 2021-09 02:30: 00 07-07 02:20 :00 No 2mg 2 mg, Intramuscu lar, ONCE, 1 dose, On 07/06/22 at 2130, Routine [facility] insulin detemir (LEVEMIR U-100 INSULIN SC) 2021-09 19:49: 26 Yes 30U inject 30 Units under the skin 2 (two) times daily. [facility] NaCl 0.9% (NS) bolus infusion 1,000 mL 2021-09 18:15: 00 06-21 18:52 :00 No 1000mL at 999 mL/hr, 1,000 mL, IV Infusion, ONCE, 1 dose, On Fri06/21/22 at 1315, STAT [facility] ondansetron (ZOFRAN (PF)) injection 4 mg 2021-09 17:15: 00 06-21 17:19 :00 No 4mg 4 mg, Slow IV Push, ONCE, 1 dose, On Fri06/21/22 at 1215, [facility] ketorolac (TORADOL) injection 30 mg 2021-09 0 17:15: 00 06-21 17:20 :00 No 30mg 30 mg, Intramuscu lar, ONCE, 1 dose, On Fri06/21/22 at 1215, [facility] divalproex ER 250 mg 24 hr tablet 04-24 00:00: 00 Yes [id number] 250mg Take 1 tablet by mouth 2 (two) times daily. [facility] water for irrigation irrigation solution 04-07 03:19: 00 Yes PRN, Starting Angelina 04/06/20 at 2219, Until Discontinu ed, Routine, Intra-op [facility] simethicone (GAS RELIEF (SIMETHICON E)) 40 mg/0.6 mL drops 04-07 03:19: 00 Yes PRN, Starting Angelina 04/06/20 at 2219, Until Discontinu ed, Routine, Intra-op [facility] glucagon (GLUCAGEN DIAGNOSTIC KIT) injection 1 mg 04-07 02:45: 00 04-07 01:56 :00 No 1mg 1 mg, Intravenou s, ONCE, 1 dose, Angelina 04/06/20 at 2145, Routine [facility] glucagon (GLUCAGEN DIAGNOSTIC KIT) injection 1 mg 04-07 01:45: 00 04-07 00:47 :00 No 1mg 1 mg, Intravenou s, ONCE, 1 dose, Angelina 04/06/20 at 2045, Routine [facility] HYDROcodone -acetaminop hen (NORCO 5) 5-325 mg tablet 1 tablet 02-19 01:15: 00 02-19 00:11 :00 No 1{tbl} 1 tablet, Oral, ONCE, 1 dose, 02/19/20 at 2015, [facility] NaCl 0.9% (NS) bolus infusion 1,000 mL 02-18 23:00: 00 02-18 23:28 :00 No 1000mL at 999 mL/hr, 1,000 mL, IV Infusion, ONCE, 1 dose, 02/19/20 at 1800, [facility] morpHINE injection 4 mg 02-18 23:00: 00 02-18 22:01 :00 No 4mg 4 mg, Slow IV Push, ONCE, 1 dose, 02/19/20 at 1800, STAT [facility] insulin regular human (HUMULIN R) injection 10 Units 02-18 22:45: 00 02-18 21:54 :00 No 10U 10 Units, Subcutaneo us, ONCE, 1 dose, 02/19/20 at 1745, [facility] NaCl 0.9% (NS) bolus infusion 1,000 mL 02-18 21:45: 02-18 23:27 :00 No 1000mL at 999 mL/hr, 1,000 mL, IV Infusion, ONCE, 1 dose, 02/19/20 at 1645, STAT [facility] ondansetron (ZOFRAN (PF)) injection 4 mg 02-18 21:45: 00 02-18 20:51 :00 No 4mg 4 mg, Slow IV Push, ONCE, 1 dose, 02/19/20 at 1645, MANDEEP [facility] FENTanyl PF (SUBLIMAZE (PF)) injection 25 mcg 02-18 21:45: 00 02-18 20:50 :00 No 25ug 25 mcg, Slow IV Push, ONCE, 1 dose, 02/19/20 at 1645, STAT [facility] clindamycin in 5 % dextrose (CLEOCIN) 900 mg/50 mL IV piggyback RTU 900 mg 02-18 21:45: 00 02-18 21:21 :00 No 900mg 900 mg, IV Piggyback, ONCE, 1 dose, 02/19/20 at 1645, 50 mL
Reas on for Anti-Infec tive: Documented Infection< br>Documen yelena Infection Site: Skin / Soft Tissue
Duration of Therapy: Other (see Comments)< br>Restric yelena use approved by: ADC PROVIDER [facility] acetaminoph en (TYLENOL) tablet 1,000 mg 02-18 21:30: 00 02-18 20:30 :00 No 1000mg 1,000 mg, Oral, ONCE, 1 dose, 02/19/20 at 1630, MANDEEP [facility] traMADol 50 mg tablet 02-18 00:00: 00 Yes [id number] 50mg Take 1 tablet by mouth every 6 (six) hours as needed for Pain (scale 4-6). [facility] clindamycin 150 mg capsule 02-18 00:00: 03-01 04:59 :00 No [id number] 450mg Take 3 capsules by mouth 3 (three) times daily for [address] [facility] glipiZIDE 10 mg tablet 11-06 00:00: 00 Yes [id number] 10mg Take 1 tablet by mouth 2 (two) times daily before breakfast and dinner. [facility] HYDROcodone -acetaminop hen 5-325 mg tablet 11-06 00:00: 00 Yes [id number] 1{tbl} Take 1 tablet by mouth every 6 (six) hours as needed for Pain (scale 7-10). [facility] ciprofloxac in HCl 500 mg tablet 11-06 00:00: 11-13 05:59 :00 No [id number] 500mg Take 1 tablet by mouth every 12 (twelve) hours for [address] [facility] metroNIDAZO LE 500 mg tablet 11-06 00:00: 11-13 05:59 :00 No [id number] 500mg Take 1 tablet by mouth 2 (two) times daily for [address] [facility] HYDROmorpho ne (DILAUDID) injection 1 mg 11-05 15:33: 28 Yes 1mg 1 mg, Slow IV Push, Q6HPRN, Starting Fri11/05/19 at 0933, Until Discontinu ed, Routine, Pain (scale 7-10)
U se approved by (Faculty): [facility] HYDROmorphO ne (DILAUDID) injection 1 mg 11-04 17:03: 17 11-05 15:33 :39 No 1mg 1 mg, Slow IV Push, Q3HPRN, Starting Fri11/04/19 at 1103, Until Fri11/05/19 at 0933, MANDEEP, Pain (scale 7-10)
U se approved by (Faculty): [facility] sennosides (SENOKOT) tablet 8.6 mg 11-04 15:00: 00 Yes 8.6mg 8.6 mg, Oral, DAILY, First dose on Fri11/04/19 at 0900, Until Discontinu ed, Routine [facility] ciprofloxac in in 5 % dextrose (CIPRO) piggyback 400 mg 11-04 07:00: 00 11-04 20:00 :00 No 400mg 400 mg, IV Piggyback, Administer over 60 Minutes, Q12H ABX, 2 doses, First dose on Fri11/04/19 at 0100, Last dose on Fri11/04/19 at 1300, MANDEEP
Re ason for Anti-Infec tive: Documented Infection& lt;br>Docu mented Infection Site: Abdominal< br>Duratio n of Therapy: Other (see Comments) [facility] Sliding Scale Insulin - Aspart (NOVOLOG) + Fsbg Testing 11-04 03:00: 00 Yes Subcutaneo us, TID MEALS+HS, First dose on Fri11/03/19 at 2100, Until Discontinu ed, Routine [facility] docusate (COLACE) capsule 100 mg 11-04 02:00: 00 Yes 100mg 100 mg, Oral, Q12H, First dose on Fri11/03/19 at 2000, Until Discontinu ed, Routine [facility] insulin detemir U-100 (LEVEMIR U-100 INSULIN) injection 30 Units 11-04 01:30: 00 11-04 14:24 :53 No 30U 30 Units, Subcutaneo us, DAILY, First dose on Fri11/03/19 at 1930, Until Discontinu ed, Routine [facility] glipiZIDE (GLUCOTROL) tablet 10 mg 11-04 00:45: 00 Yes 10mg 10 mg, Oral, BIDAC, First dose on Fri11/03/19 at 1845, Until Discontinu ed, Routine [facility] metroNIDAZO LE (FLAGYL I.V.) Piggyback 500 mg 11-03 23:15: 00 11-05 16:06 :00 No 500mg 500 mg, IV Piggyback, Q8H ABX, 6 doses, First dose on Fri11/03/19 at 1715, Last dose on Fri11/05/19 at 0915, 100 mL
Reas on for Anti-Infec tive: Documented Infection< br>Documen yelena Infection Site: Abdominal< br>Duratio n of Therapy: [address] [facility] HYDROcodone -acetaminop hen (NORCO 5) 5-325 mg tablet 1 tablet 11-03 21:44: 00 Yes 1{tbl} 1 tablet, Oral, Q4HPRN, Starting Fri11/03/19 at 1544, Until Discontinu ed, Routine, Pain (scale 4-6) [facility] morpHINE injection 4 mg 11-03 21:43: 39 11-04 17:06 :17 No 4mg 4 mg, Slow IV Push, Q2HPRN, Starting Fri11/03/19 at 1543, Until Angelina 11/04/19 at 1106, Routine, Pain (scale 7-10) [facility] ondansetron (ZOFRAN (PF)) injection 4 mg 11-03 21:40: 10 Yes 4mg 4 mg, Slow IV Push, Q6HPRN, Starting Fri11/03/19 at 1540, Until Discontinu ed, Routine, Nausea and Vomiting (N/V) [facility] metroNIDAZO LE (FLAGYL I.V.) Piggyback 500 mg 11-03 19:30: 00 11-03 19:55 :00 No 500mg 500 mg, IV Piggyback, ONCE, 1 dose, 11/03/19 at 1330, 100 mL
Reas on for Anti-Infec tive: Documented Infection< br>Documen yelena Infection Site: Abdominal< br>Duratio n of Therapy: Other (see Comments) [facility] ciprofloxac in in 5 % dextrose (CIPRO) piggyback 400 mg 11-03 19:30: 00 11-03 19:43 :00 No 400mg 400 mg, IV Piggyback, Administer over 60 Minutes, ONCE, 1 dose, 11/03/19 at 1330, MANDEEP
Re ason for Anti-Infec tive: Documented Infection< br>Documen yelena Infection Site: Abdominal< br>Duratio n of Therapy: Other (see Comments) [facility] D5W 0.45% NaCl (1/2NS) IV infusion 1,000 mL 11-03 19:15: 00 11-04 01:21 :07 No 1000mL at 125 mL/hr, 1,000 mL, IV Infusion, CONTINUOUS , Starting Fri11/03/19 at 1315, Until Fri11/03/19 at 1921, MANDEEP [facility] FENTanyl PF (SUBLIMAZE (PF)) injection 125 mcg 11-03 18:15: 00 11-03 17:26 :00 No 125ug 125 mcg, Slow IV Push, ONCE, 1 dose, 11/03/19 at 1215, Routine [facility] iohexol (OMNIPAQUE 350 BULK-150 mL) injection 120 mL 11-03 17:32: 00 11-03 17:32 :00 No 120mL 120 mL, Intravenou s, ONCE, 1 dose, 11/03/19 at 1145, Routine [facility] NaCl 0.9% (NS) bolus infusion 1,000 mL 11-03 17:00: 00 11-03 18:28 :00 No 1000mL at 999 mL/hr, 1,000 mL, IV Infusion, ONCE, 1 dose, Fri11/03/19 at 1100, STAT [facility] FENTanyl PF (SUBLIMAZE (PF)) injection 100 mcg 11-03 17:00: 00 11-03 16:06 :00 No 100ug 100 mcg, Slow IV Push, ONCE, 1 dose, Fri11/03/19 at 1100, Routine [facility] ondansetron (ZOFRAN (PF)) injection 4 mg 11-03 17:00: 00 11-03 16:06 :00 No 4mg 4 mg, Slow IV Push, ONCE, 1 dose, Fri11/03/19 at 1100, MANDEEP [facility] cyclobenzap rine 5 mg tablet 2018-09 006 00:00: 00 11-06 00:00 :00 No [id number] 9100 5mg Take 1 tablet by mouth 3 (three) times daily. [facility] traMADol (ULTRAM) 50 mg tablet 2018-09 00:00: 00 11-06 00:00 :00 No [id number] 9100 50mg Take 1 tablet by mouth every 8 (eight) hours as needed for Pain (scale 4-6). [facility] benzonatate 100 mg capsule 10-05 00:00: 00 11-06 00:00 :00 No 100mg Take 1 capsule by mouth 3 (three) times daily as needed for Cough. DO NOT CHEW! [facility] ondansetron (ZOFRAN ODT) 4 mg disintegrat ing tablet 10-05 00:00: 00 11-06 00:00 :00 No 4mg Take 1 tablet by mouth every 8 (eight) hours as needed for Nausea and Vomiting (N/V). [facility] sod chlor-bicar b-squeez bottle (NEILMED SINUS RINSE COMPLETE) pkdv 10-05 00:00: 00 11-06 00:00 :00 No 1{bottl e} Use 1 Bottle in each nostril 2 (two) times daily. Use in hot shower [address] [facility] Vital Signs Vital Name Observation Time Observation Value Comments S ource Heart rate 2024-06-06 21:44:00 89 /min [facility] Oxygen saturation in Arterial blood by Pulse oximetry 2024-06-06 21:44:00 95 /min [facility] Systolic blood pressure 2024-06-06 21:30:00 125 mm[Hg] [facility] Diastolic blood pressure 2024-06-06 21:30:00 77 mm[Hg] [facility] Respiratory rate 2024-06-06 21:30:00 16 /min [facility] Body temperature 2024-06-06 17:52:00 37.22 Leonor [facility] Body height 2024-06-06 17:52:00 188 cm [facility] Body weight 2024-06-06 17:52:00 124.739 kg [facility] BMI 2024-06-06 17:52:00 35.31 kg/m2 [facility] Heart rate 2024-02-29 22:22:00 88 /min [facility] Body temperature 2024-02-29 22:22:00 37.11 Leonor [facility] Oxygen saturation in Arterial blood by Pulse oximetry 2024-02-29 22:22:00 95 /min [facility] Systolic blood pressure 2024-02-29 22:00:00 114 mm[Hg] [facility] Diastolic blood pressure 2024-02-29 22:00:00 76 mm[Hg] [facility] Respiratory rate 2024-02-29 22:00:00 16 /min [facility] Body height 2024-02-29 19:45:00 188 cm [facility] Body weight 2024-02-29 19:45:00 122.471 kg [facility] BMI 2024-02-29 19:45:00 34.67 kg/m2 [facility] Systolic blood pressure 2022-07-13 02:00:00 165 mm[Hg] [facility] Diastolic blood pressure 2022-07-13 02:00:00 96 mm[Hg] [facility] Heart rate 2022-07-13 02:00:00 88 /min [facility] Respiratory rate 2022-07-13 02:00:00 18 /min [facility] Oxygen saturation in Arterial blood by Pulse oximetry 2022-07-13 02:00:00 98 /min [facility] Body temperature 2022-07-13 01:48:00 37 Leonor [facility] Body height 2022-07-13 01:25:00 188 cm [facility] Body weight 2022-07-13 01:25:00 129.275 kg [facility] BMI 2022-07-13 01:25:00 36.59 kg/m2 [facility] Systolic blood pressure 2022-07-07 02:21:33 135 mm[Hg] [facility] Diastolic blood pressure 2022-07-07 02:21:33 81 mm[Hg] [facility] Heart rate 2022-07-07 02:21:33 93 /min [facility] Respiratory rate 2022-07-07 02:21:33 18 /min [facility] Oxygen saturation in Arterial blood by Pulse oximetry 2022-07-07 02:21:33 96 /min [facility] Body temperature 2022-07-07 00:44:00 37 Leonor [facility] Body height 2022-07-07 00:44:00 188 cm [facility] Body weight 2022-07-07 00:44:00 129.275 kg [facility] BMI 2022-07-07 00:44:00 36.59 kg/m2 [facility] Systolic blood pressure 2022-06-21 18:46:00 128 mm[Hg] [facility] Diastolic blood pressure 2022-06-21 18:46:00 86 mm[Hg] [facility] Heart rate 2022-06-21 18:46:00 81 /min [facility] Respiratory rate 2022-06-21 18:46:00 16 /min [facility] Oxygen saturation in Arterial blood by Pulse oximetry 2022-06-21 18:46:00 99 /min [facility] Body temperature 2022-06-21 16:02:00 37.06 Leonor [facility] Body height 2022-06-21 16:02:00 188 cm [facility] Body weight 2022-06-21 16:02:00 127.007 kg [facility] BMI 2022-06-21 16:02:00 35.95 kg/m2 [facility] Systolic blood pressure 2020-04-24 13:23:00 129 mm[Hg] [facility] Diastolic blood pressure 2020-04-24 13:23:00 81 mm[Hg] [facility] Heart rate 2020-04-24 13:23:00 82 /min [facility] Body weight 2020-04-24 13:23:00 138.075 kg [facility] BMI 2020-04-24 13:23:00 39.08 kg/m2 [facility] Systolic blood pressure 2020-04-24 13:23:00 129 mm[Hg] [facility] Diastolic blood pressure 2020-04-24 13:23:00 81 mm[Hg] [facility] Heart rate 2020-04-24 13:23:00 82 /min [facility] Body weight 2020-04-24 13:23:00 138.075 kg [facility] BMI 2020-04-24 13:23:00 39.08 kg/m2 [facility] Systolic blood pressure 2020-04-07 03:51:00 118 mm[Hg] [facility] Diastolic blood pressure 2020-04-07 03:51:00 68 mm[Hg] [facility] Heart rate 2020-04-07 03:51:00 92 /min [facility] Respiratory rate 2020-04-07 03:51:00 16 /min [facility] Oxygen saturation in Arterial blood by Pulse oximetry 2020-04-07 03:51:00 100 /min [facility] Body temperature 2020-04-07 03:40:00 36.44 Leonor [facility] Body weight 2020-04-07 00:07:00 129.275 kg [facility] BMI 2020-04-07 00:07:00 36.59 kg/m2 [facility] Heart rate 2020-02-19 23:10:00 105 /min [facility] Respiratory rate 2020-02-19 23:10:00 29 /min [facility] Oxygen saturation in Arterial blood by Pulse oximetry 2020-02-19 23:10:00 94 /min [facility] Systolic blood pressure 2020-02-19 23:00:00 127 mm[Hg] [facility] Diastolic blood pressure 2020-02-19 23:00:00 78 mm[Hg] [facility] [facility] Body temperature 2020-02-19 22:04:10 37.33 Leonor [facility] Body height 2020-02-19 19:56:00 188 cm [facility] Body weight 2020-02-19 19:56:00 129.275 kg [facility] BMI 2020-02-19 19:56:00 36.59 kg/m2 [facility] Systolic blood pressure 2019-11-06 17:14:00 138 mm[Hg] [facility] Diastolic blood pressure 2019-11-06 17:14:00 88 mm[Hg] [facility] Heart rate 2019-11-06 17:14:00 102 /min [facility] Respiratory rate 2019-11-06 17:14:00 18 /min [facility] Oxygen saturation in Arterial blood by Pulse oximetry 2019-11-06 17:14:00 96 /min [facility] Body temperature 2019-11-06 14:00:00 36.72 Leonor [facility] Body height 2019-11-03 23:00:00 188 cm [facility] Body weight 2019-11-03 15:22:00 129.275 kg [facility] BMI 2019-11-03 15:22:00 36.58 kg/m2 [facility] Procedures Procedure Date / Time Performed Performing Clinician Source XR KNEE 3 VW RIGHT 2023-04-04 15:33:38 Adam Servin [facility] XR CERVICAL SPINE 2 VW 2023-04-04 15:33:20 Adam Servin [facility] CONSENT/REFUSAL FOR DIAGNOSIS AND TREATMENT 2023-04-04 15:01:50 Doctor Unassigned, [place] [facility] CONSENT/REFUSAL FOR DIAGNOSIS AND TREATMENT 2022-07-13 01:17:58 Doctor Unassigned, [place] [facility] CONSENT/REFUSAL FOR DIAGNOSIS AND TREATMENT 2022-07-07 00:35:11 Doctor Unassigned, [place] [facility] CT HEAD WO CONTRAST 2022-06-21 17:34:58 Stephanie Oneal [facility] XR CHEST 1 VW 2022-06-21 16:37:11 [facility] TR[facility]ONIN I 2022-06-21 16:28:00 Stephanie Oneal [facility] BASIC METABOLIC PANEL (NA, K, CL, CO2, GLUCOSE, BUN, CREATININE, CA) 2022-06-21 16:28:00 Stephanie Oneal [facility] CBC WITH DIFF 2022-06-21 16:28:00 Stephanie Oneal [facility] NOTICE OF PRIVACY PRACTICES 2022-06-21 15:51:50 Doctor Unassigned, [place] [facility] CONSENT/REFUSAL FOR DIAGNOSIS AND TREATMENT 2022-06-21 15:51:34 Doctor Unassigned, [place] [facility] EGD (ENDO) 2020-04-07 02:31:21 Lisa Armendariz [facility] COMP. METABOLIC PANEL ([id number]) 2020-04-07 01:52:00 Yazmin Apple [facility] CBC WITH DIFF 2020-04-07 01:52:00 Yazmin Apple [facility] XR NECK SOFT TISSUE 2020-04-07 00:57:29 Yazmin Apple [facility] COVID-19 (ID NOW RAPID TESTING) 2020-04-07 00:40:00 Yazmin Apple [facility] NOTICE OF PRIVACY PRACTICES 2020-04-06 23:57:19 Doctor Unassigned, [place] [facility] CONSENT/REFUSAL FOR DIAGNOSIS AND TREATMENT 2020-04-06 23:57:05 Doctor Unassigned, [place] [facility] REFERRAL- REQUEST/RESPONSE 2020-03-29 05:01:00 Doctor Unassigned, [place] [facility] POCT GLUCOSE (AUTOMATED) 2020-02-19 23:05:00 Stephanie Oneal [facility] POCT GLUCOSE (AUTOMATED) 2020-02-19 21:52:00 Stephanie Oneal [facility] COMP. METABOLIC PANEL ([id number]) 2020-02-19 20:47:00 Stephanie Oneal [facility] CBC WITH DIFFERENTIAL 2020-02-19 20:47:00 Stephanie Oneal [facility] COVID-19 (ID NOW RAPID TESTING) 2020-02-19 20:47:00 Stephanie Oneal [facility] NOTICE OF PRIVACY PRACTICES 2020-02-19 19:53:34 Doctor Unassigned, [place] [facility] CONSENT/REFUSAL FOR DIAGNOSIS AND TREATMENT 2020-02-19 19:53:23 Doctor Unassigned, [place] [facility] POCT GLUCOSE (AUTOMATED) 2019-11-06 13:36:00 Luis Arshad [facility] POCT GLUCOSE (AUTOMATED) 2019-11-06 01:48:00 Luis Arshad [facility] POCT GLUCOSE (AUTOMATED) 2019-11-05 22:16:00 Luis Arshad [facility] POCT GLUCOSE (AUTOMATED) 2019-11-05 17:26:00 Luis Arshad [facility] POCT GLUCOSE (AUTOMATED) 2019-11-05 13:21:00 Luis Arshad [facility] BASIC METABOLIC PANEL (NA, K, CL, CO2, GLUCOSE, BUN, CREATININE, CA) 2019-11-05 10:28:00 Ritika Milan [facility] CBC WITH DIFFERENTIAL 2019-11-05 10:28:00 Denise Milan [facility] POCT GLUCOSE (AUTOMATED) 2019-11-05 10:12:00 Luis Arshad [facility] POCT GLUCOSE (AUTOMATED) 2019-11-05 06:12:00 Luis Arshad [facility] POCT GLUCOSE (AUTOMATED) 2019-11-05 01:41:00 Luis Arshad [facility] POCT GLUCOSE (AUTOMATED) 2019-11-04 22:26:00 Luis Arshad [facility] POCT GLUCOSE (AUTOMATED) 2019-11-04 17:20:00 Luis Arshad [facility] POCT GLUCOSE (AUTOMATED) 2019-11-04 13:21:00 Luis Arshad [facility] POCT GLUCOSE (AUTOMATED) 2019-11-04 11:57:00 Luis Arshad [facility] POCT GLUCOSE (AUTOMATED) 2019-11-04 05:30:00 Luis Arshad [facility] POCT GLUCOSE (AUTOMATED) 2019-11-04 02:17:00 Luis Arshad [facility] POCT GLUCOSE (AUTOMATED) 2019-11-03 23:23:00 Luis Arshad [facility] POCT GLUCOSE (AUTOMATED) 2019-11-03 21:41:00 Luis Arshad [facility] SURGICAL PATHOLOGY EXAM 2019-11-03 20:26:00 Sandeep Lund [facility] LAPAROSCOPIC APPENDECTOMY 2019-11-03 19:24:00 Yonatan Lund [facility] CT ABDOMEN PELVIS W CONTRAST 2019-11-03 17:41:22 Ervin Rhoades [facility] LIPASE 2019-11-03 15:35:00 Ervin Rhoades [facility] COMP. METABOLIC PANEL ([id number]) 2019-11-03 15:35:00 Ervin Rhoades [facility] CBC WITH DIFFERENTIAL 2019-11-03 15:35:00 Jimmy Rhoades [facility] GLYCOSYLATED HEMOGLOBIN (A1C) 2019-11-03 15:35:00 Stephanie Pichardo [facility] URINALYSIS 2019-11-03 15:35:00 Ervin Rhoades [facility] Encounters Start Date/Time End Date/Time Encounter Type Admission Type Attending [facility] Care Department Encounter ID Source 2024-06-06 12:53:00 2024-06-06 16:47:00 Emergency X YADIEL HAQ JULIO [facility]ARIANA [facility] [id number] [facility] 2024-06-06 12:53:00 2024-06-06 16:47:00 Emergency Yadiel Haq [facility] AT [facility] 1.2.840.114 350.1.13.10 4.2.7.2.[id number] [facility] 2024-02-29 14:46:00 2024-02-29 17:26:00 Emergency X VIRI GUZMÁN [facility] ERT [id number] [facility] 2024-02-29 14:46:00 2024-02-29 17:26:00 Emergency Viri Guzmán [facility] 1.2.840.114 350.1.13.10 4.2.7.2.[id number] [facility] 2023-04-04 10:08:04 2023-04-04 23:59:00 Hospital Encounter [facility] 1.2.840.114 350.1.13.10 4.2.7.2.[id number] [facility] 2023-04-04 10:03:37 2023-04-04 10:07:00 Outpatient R [facility] [id number] [facility] 2023-04-04 10:00:00 2023-04-04 10:07:00 Hospital Encounter [facility] 1.2.840.114 350.1.13.10 4.2.7.2.[id number] [facility] 2023-04-04 00:00:00 2023-04-04 00:00:00 Orders Only Doctor Unassigned, [place] [facility] 1.2.840.114 350.1.13.10 4.2.7.2.[id number] [facility] 2022-07-12 20:32:00 2022-07-12 22:17:00 Emergency X YADIEL HAQ [facility] ERT [id number] [facility] 2022-07-12 20:32:00 2022-07-12 22:17:00 Emergency Yadiel Haq [facility] 1.2.840.114 350.1.13.10 4.2.7.2.[id number] [facility] 2022-07-12 08:40:00 2022-07-12 08:40:00 Outpatient DAVID YOUSIF [facility] [id number] [facility] 2022-07-06 19:49:00 2022-07-06 23:18:00 Emergency X ALEXIS DAWN [facility] ERT [id number] [facility] 2022-07-06 19:49:00 2022-07-06 23:18:00 Emergency Alexis Dawn [facility] 1.840.114 350.1.13.10 4.2.7.2.[id number] [facility] 2022-06-21 11:04:00 2022-06-21 13:54:00 Emergency X STEPHANIE ONEAL [facility] ERT [id number] [facility] 2022-06-21 11:04:00 2022-06-21 13:54:00 Emergency Stephanie Oneal [facility] 1..840.114 350.1.13.10 4.2.7.2.[id number] [facility] 2022-06-21 00:00:00 2022-06-21 00:00:00 Orders Only Doctor Unassigned, [place] [facility] 1..840.114 350.1.13.10 4.2.7.2.[id number] [facility] 2020-08-15 10:00:00 2020-08-15 10:00:00 Outpatient SILVINA ISBELL [facility] [id number] [facility] 2020-04-24 08:15:37 2020-04-24 08:49:56 Office Visit Norberto Bernal [facility] 1.2840.114 350.1.13.10 4.2.7.2.686 [id number] 2020-04-24 08:15:37 2020-04-24 08:49:56 Office Visit Dolores, Norberto Kothari [facility] 1.2840.114 350.1.13.10 4.2.7.2.[id number] [facility] 2020-04-24 08:00:00 2020-04-24 08:00:00 Outpatient R NORBERTO BERNAL HOWARD [facility] [id number] [facility] 2020-04-06 19:12:13 2020-04-06 22:55:00 Emergency Yazmin Apple [facility] Surgical [place] 1.2840.114 350.1.13.10 4.2.7.2.[id number] [facility] 2020-04-06 19:12:13 2020-04-06 19:12:13 Emergency X Yazmin APPLE [facility] ERT [id number] [facility] 2020-04-06 00:00:00 2020-04-06 00:00:00 Orders Only Doctor Unassigned, [place] [facility] 1.2840.114 350.1.13.10 4.2.7.2.[id number] [facility] 2020-03-29 00:00:00 2020-03-29 00:00:00 Orders Only Doctor Unassigned, [place] [facility] 1.2840.114 350.1.13.10 4.2.7.2.[id number] [facility] 2020-02-19 15:07:18 2020-02-19 19:22:00 Emergency Stephanie Oneal [facility] 1.2.840.114 350.1.13.10 4.2.7.2.[id number] [facility] 2020-02-19 14:53:00 2020-02-19 14:53:00 Emergency X [facility] ERT [id number] [facility] 2020-02-19 00:00:00 2020-02-19 00:00:00 Orders Only Doctor Unassigned, [place] [facility] 1.2.840.114 350.1.13.10 4.2.7.2.[id number] [facility] 2019-11-08 00:00:00 2019-11-08 00:00:00 Transition of Care Hortensia Nicolas 1.2.840.114 350.1.13.10 4.2.7.2.[id number] [facility] 2019-11-03 09:25:15 2019-11-06 12:00:00 Hospital Encounter Ervin Rhoades Yaman [facility] 1.2.840.114 350.1.13.10 4.2.7.2.[id number] [facility] 2019-11-03 09:25:15 2019-11-06 12:00:00 Inpatient X LUIS ARSHAD [facility] [id number] [facility] Results Test Description Test Time Test Comments Results Result Co mments Source [facility] (NA, K, CL, CO2, GLUCOSE, BUN, CREATININE, CA)2022-06-21 16:50:52* Test Item Value Reference Range Interpretation Comme nts NA (test code = 2415997086) 137 mmol/L 135-145 K (test code = 4417505434) 4.6 mmol/L 3.5-5 CL (test code = 0828043823) 97 mmol/L 98-108 L CO2 TOTAL (test code = 4399143747) 30 mmol/L 23-31 AGAP (test code = 4370019667) 2-16 BUN (test code = 8528117509) 11 mg/dL 7-23 GLUCOSE (test code = 9024318670) 214 mg/dL 70-110 H CREATININE (test code = 0781980956) 1.16 mg/dL 0.6-1.25 CALCIUM (test code = 6873989819) 8.5 mg/dL 8.6-10.6 L eGFR (test code = 0746808935) mL/min/1.73m2 KATE (test code = KATE) Association [...] imaging tests). Lab Interpretation (test code = 65012-6) Abnormal [facility] WITH [id number] 16:39:51* Test Item Value Reference Range Interpretation Comme nts WBC (test code = 6690-2) See_Comment [Automated Starriser] The system which generated this result transmitted [...] 33.6 g/dL 31.2-35 RDW-SD (test code = 57451-4) 37.0 fL 38.5-51.6 L RDW-CV (test code = 788-0) 13.2 % 12.1-15.4 PLT (test code = 777-3) See_Comment [Automated messa ge] The system which generated this result transmitted reference range: 150 - 328 10*3/?L. The reference range was not used to interpret this result as normal/abnormal. MPV (test code = 13504-0) 11.1 fL 9.8-13 NRBC/100 WBC (test code = 9583346992) See_Comment [Automated [employer] ssage] The system which generated this result transmitted reference range: 0.0 - 10.0 /100 WBCs. The reference range was not used to interpret this result as normal/abnormal. NRBC x10^3 (test code = 2462744821) See_Comment [Automated Personetaa ge] The system which generated this result transmitted reference range: 10*3/?L. The reference range was not used to interpret this result as normal/abnormal. GRAN MAT (NEUT) % (test code = 770-8) 67.3 % IMM GRAN % (test code = 9879631849) 0.20 % LYMPH % (test code = 736-9) 23.5 % MONO % (test code = 5905-5) 5.7 % EOS % (test code = 713-8) 2.6 % BASO % (test code = 706-2) 0.7 % GRAN MAT x10^3(ANC) (test code = 3196948636) 3.93 10*3/uL 1.99-6.95 IMM GRAN x10^3 (test code = 6850306507) 0-0.06 LYMPH x10^3 (test code = 731-0) 1.37 10*3/uL 1.09-3.23 MONO x10^3 (test code = 742-7) 0.33 10*3/uL 0.36-1.02 L EOS x10^3 (test code = 711-2) 0.15 10*3/uL 0.06-0.53 BASO x10^3 (test code = 704-7) 0.04 10*3/uL 0.01-0.09 Lab Interpretation (test code = 00860-0) [facility]164[facility]2020-04-07 03:03:00* Test Item Value Reference Range Interpretation Comme nts NA (test code = 3078258085) 139 mmol/L 135-145 K (test code = 2655795091) 4.4 mmol/L 3.5-5 CL (test code = 7484704033) 101 mmol/L 98-108 CO2 TOTAL (test code = 2858658006) 28 mmol/L 23-31 AGAP (test code = 2245107514) 2-16 BUN (test code = 4044113781) 11 mg/dL 7-23 GLUCOSE (test code = 6778877167) 225 mg/dL 70-110 H CREATININE (test code = 7329304405) 0.98 mg/dL 0.6-1.25 TOTAL BILI (test code = 5040065096) 0.5 mg/dL 0.1-1.1 CALCIUM (test code = 5405536613) 9.6 mg/dL 8.6-10.6 T PROTEIN (test code = 1440226826) 8.2 g/dL 6.3-8.2 ALBUMIN (test code = 5510324579) 4.7 g/dL 3.5-5 ALK PHOS (test code = 0664365984) 75 U/L 34-122 ALTv (test code = 1742-6) 74 U/L 5-50 H AST(SGOT) (test code = 1235216880) 39 U/L 13-40 eGFR Calculation (Non-) (test code = 9769581329) mL/min/1.73m2 eGFR Calculation () (test code = 0039069819) mL/min/1.73m2 KATE (test code = KATE) Association [...] imaging tests). Lab Interpretation (test code = 04842-8) Abnormal [facility] WITH [id number] 02:12:00* Test Item Value Reference Range Interpretation Comme nts WBC (test code = 6690-2) See_Comment [Automated Starriser] The system which generated this result transmitted reference range: 4.20 - 10.70 10*3/?L. The reference range was not used to interpret this result as normal/abnormal. RBC (test code = 789-8) See_Comment H [Automated Starriser] The system which generated this result transmitted [...] 32.9 g/dL 31.2-35 RDW-SD (test code = 78116-7) 36.4 fL 38.5-51.6 L RDW-CV (test code = 788-0) 12.5 % 12.1-15.4 PLT (test code = 777-3) See_Comment [Automated messa ge] The system which generated this result transmitted reference range: 150 - 328 10*3/?L. The reference range was not used to interpret this result as normal/abnormal. MPV (test code = 86901-7) 11.5 fL 9.8-13 NRBC/100 WBC (test code = 8765644706) See_Comment [Automated [employer] ssage] The system which generated this result transmitted reference range: 0.0 - 10.0 /100 WBCs. The reference range was not used to interpret this result as normal/abnormal. NRBC x10^3 (test code = 1841446163) <0.01 See_Comment [Automated Personetaa ge] The system which generated this result transmitted reference range: 10*3/?L. The reference range was not used to interpret this result as normal/abnormal. GRAN MAT (NEUT) % (test code = 770-8) 68.0 % IMM GRAN % (test code = 5341029418) 0.40 % LYMPH % (test code = 736-9) 23.8 % MONO % (test code = 5905-5) 4.7 % EOS % (test code = 713-8) 2.7 % BASO % (test code = 706-2) 0.4 % GRAN MAT x10^3(ANC) (test code = 2724929993) 5.24 10*3/uL 1.99-6.95 IMM GRAN x10^3 (test code = 8313188079) 0.03 10*3/uL 0-0.06 LYMPH x10^3 (test code = 731-0) 1.83 10*3/uL 1.09-3.23 MONO x10^3 (test code = 742-7) 0.36 10*3/uL 0.36-1.02 EOS x10^3 (test code = 711-2) 0.21 10*3/uL 0.06-0.53 BASO x10^3 (test code = 704-7) 0.03 10*3/uL 0.01-0.09 Lab Interpretation (test code = 31727-8) [facility]APID TESTING)2020-04-07 01:40:00* Test Item Value Reference Range Interpretation Comme nts SARS-CoV-2 Rapid ID NOW (test code = 74434-2) Not Detected Not Detected KATE (test code = KATE) ID NOW COVID-19 As say is an isothermal nucleic acid amplification test intended for the qualitative detection of nucleic acid from SARS-CoV-2 viral RNA in nasopharyngeal ([employer]AG [employer]OR OPERATOR) specimens. It is used under Emergency [...] clinically indicated. Lab Interpretation (test code = 78723-7) Normal [facility] N[facility]K SOFT [id number] 01:06:58 FINDINGS/IMPRESSION:: Frontal and lateral radiographs of [...] spondylotic changes at C5-C6. Cervical spine is otherwiseunremarkable.[facility] GLUCOSE (AUTOMATED)2020-02-19 23:08:00* Test Item Value Reference Range Interpretation Comme nts POCT GLU (test code = 9923823846) 243 mg/dL 70-110 H Lab Interpretation (test cod e = 26671-8) Abnormal [facility] GLUCOSE (AUTOMATED)2020-02-19 21:58:00* Test Item Value Reference Range Interpretation Comme nts POCT GLU (test code = 8334978435) 313 mg/dL 70-110 H Lab Interpretation (test cod e = 62929-3) Abnormal [facility]ID NOW RAPID TESTING)2020-02-19 21:31:00* Test Item Value Reference Range Interpretation Comme [facility] SARS-CoV-2 Rapid ID NOW (test code = 82671-3) Not Detected Not Detected KATE (test code = KATE) ID NOW COVID-19 As say is an isothermal nucleic acid amplification test intended for the qualitative detection of nucleic acid from SARS-CoV-2 viral RNA in nasopharyngeal (SLAG MOTOR OPERATOR) specimens. It is used under Emergency [...] clinically indicated. Lab Interpretation (test code = 14521-2) Normal [facility]. METABOLIC PANEL (10593)2020-02-19 21:29:00* Test Item Value Reference Range Interpretation Comme nts NA (test code = 0755652978) 134 mmol/L 135-145 L K (test code = 5844227813) 4.1 mmol/L 3.5-5 CL (test code = 7064571486) 99 mmol/L 98-108 CO2 TOTAL (test code = 8941160821) 27 mmol/L 23-31 AGAP (test code = 8313368389) 2-16 BUN (test code = 0791797607) 10 mg/dL 7-23 GLUCOSE (test code = 9621295268) 372 mg/dL 70-110 H CREATININE (test code = 5427312997) 0.96 mg/dL 0.6-1.25 TOTAL BILI (test code = 3807633090) 0.4 mg/dL 0.1-1.1 CALCIUM (test code = 2833793211) 9.2 mg/dL 8.6-10.6 T PROTEIN (test code = 2376693050) 7.5 g/dL 6.3-8.2 ALBUMIN (test code = 5698698442) 4.5 g/dL 3.5-5 ALK PHOS (test code = 7408424984) 86 U/L 34-122 ALTv (test code = 1742-6) 48 U/L 5-50 AST(SGOT) (test code = 1230592434) 27 U/L 13-40 eGFR Calculation (Non-) (test code = 6464927783) mL/min/1.73m2 eGFR Calculation () (test code = 0926894060) mL/min/1.73m2 KATE (test code = KATE) Association [...] imaging tests). Lab Interpretation (test code = 56076-6) Abnormal [facility] WITH [id number] 21:06:00* Test Item Value Reference Range Interpretation Comme nts WBC (test code = 6690-2) See_Comment [Blabroom] The system which generated this result transmitted reference range: 4.20 - 10.70 10*3/?L. The reference range was not used to interpret this result as normal/abnormal. RBC (test code = 789-8) See_Comment H [Blabroom] The system which generated this result transmitted [...] 33.4 g/dL 31.2-35 RDW-SD (test code = 72355-3) 36.3 fL 38.5-51.6 L RDW-CV (test code = 788-0) 12.9 % 12.1-15.4 PLT (test code = 777-3) See_Comment [Blabroom] The system which generated this result transmitted reference range: 150 - 328 10*3/?L. The reference range was not used to interpret this result as normal/abnormal. MPV (test code = 99208-7) 11.3 fL 9.8-13 NRBC/100 WBC (test code = 5793845179) See_Comment [Automated me ssage] The system which generated this result transmitted reference range: 0.0 - 10.0 /100 WBCs. The reference range was not used to interpret this result as normal/abnormal. NRBC x10^3 (test code = 5066446570) <0.01 See_Comment [Automated messa ge] The system which generated this result transmitted reference range: 10*3/?L. The reference range was not used to interpret this result as normal/abnormal. GRAN MAT (NEUT) % (test code = 770-8) 79.8 % IMM GRAN % (test code = 5467204976) 0.50 % LYMPH % (test code = 736-9) 13.4 % MONO % (test code = 5905-5) 4.2 % EOS % (test code = 713-8) 1.8 % BASO % (test code = 706-2) 0.3 % GRAN MAT x10^3(ANC) (test code = 6995947012) 8.49 10*3/uL 1.99-6.95 H IMM GRAN x10^3 (test code = 7700977300) 0.05 10*3/uL 0-0.06 LYMPH x10^3 (test code = 731-0) 1.42 10*3/uL 1.09-3.23 MONO x10^3 (test code = 742-7) 0.45 10*3/uL 0.36-1.02 EOS x10^3 (test code = 711-2) 0.19 10*3/uL 0.06-0.53 BASO x10^3 (test code = 704-7) 0.03 10*3/uL 0.01-0.09 Lab Interpretation (test code = 31440-7) Abnormal [facility] GLUCOSE (AUTOMATED)2019-11-06 13:38:00* Test Item Value Reference Range Interpretation Comme nts POCT GLU (test code = 3292600504) 116 mg/dL 70-110 H Lab Interpretation (test cod e = 29060-6) Abnormal [facility] GLUCOSE (AUTOMATED)2019-11-06 12:29:00* Test Item Value Reference Range Interpretation Comme nts POCT GLU (test code = 7622033899) 322 mg/dL 70-110 H Lab Interpretation (test cod e = 83948-7) Abnormal [facility] GLUCOSE (AUTOMATED)2019-11-06 12:29:00* Test Item Value Reference Range Interpretation Comme nts POCT GLU (test code = 5893436283) 230 mg/dL 70-110 H Lab Interpretation (test cod e = 30162-8) Abnormal [facility] GLUCOSE (AUTOMATED)2019-11-06 02:00:00* Test Item Value Reference Range Interpretation Comme nts POCT GLU (test code = 7701268719) 155 mg/dL 70-110 H Notified Provide r Lab Interpretation (test code = 81841-1) [facility]normal [facility] [id number] 00:02:00* Test Item Value Reference Range Interpretation Comme nts Case Report (test code = 9740639486) Surgical Pathology ?Case: [id number] ? Authorizing Provider: ?Yonatan Lund MD ? ? ? Collected: ? 11/03/2019 1426 ?Ordering Location: ? ? [facility] ? ? ?Received: ?11/03/2019 1555 ? [facility] ?Pathologist: ? Klaus Tinoco MD ? Specimen: ? ?APPENDIX, appendix ? Final Diagnosis (test code = 5126835573) u1afgLYlVQKyb6orWAAszR FuZzEwMzNcZnRuYmpcdWMx MHflidYuGPlow3OdN8WzJq AwMFxhbnNpXGRlZmxhbmcx EMGvENU6wuDxHNAxMGbiRE HjVTywMb1wzDFxdYaeNdMy DGZhh8djljRIebqraMm3c3 uxWPMoTxL8jCDzGYhtE1ac haRgoHXxFVTfQWh6cN92GJ JpmZ9ysKCiILdnvqMgISun udLjciUyKlh7HKOxW3mjGD XnVIRkH1HqUW7pINAvBwh3 FQW7SDO6eGfld1V7gBJbbV HqqSusYpLbOqAdEWLGh7Ku KBo3mMvmH2XfWEDsCgA3iY QgUGFyYWdyYXBoIEZvbnQ7 gT85WAlfvdK0uDDwh0Hzl6 5mo419jE6aqUXzNXD6JQPv QPZicGPwJQIaKNY2MRDqmI OdR2itMNodXH3jfzicHPG4 MFxtYXJndDcyMFxtYXJnYj GxnJTgEGYstWvwDOlhg776 PLM4FkJpXV2xA4Nso0E5tM 9maXRcZGVmdGFiNzIwXGZv wx3slIFgRWvhw5VnMAI6ir W9mJVnqXEjMDVxMJ69Bnac o5ElPhnbDOP6OPBenxEwu5 Tji5ucIoGqisImY2ghI5Gr ZHJoZWFkXHBnYnJkcmZvb3 Epn1TyeNTyqQt4y1ryKBVf FMLlrIuoz1bgSPD6XHIaU1 O8lTQsg2hoDKmrKYGzeBW3 izKyKPWffNWdA6VmcQ9yJW yfOB2wifm0e2soSeBkRV4f snhhb0qjTAbxXJHhSCT6Ko TuHNLwf7DkwwvaAkYgk3Pr vNQlOTjhT86th207CMHeib GoD3fvvZByhlirxSLbiobs MFxmczIwXHFsXHBsYWluXG KjGSXjGmIkfPecoI6mMzCg ZnMyMFxwYXJccGFyZFxwbG FpblxmMFxmczIwXHBsYWlu GRDlHDIlTpNfBC5wQUNEIT 0IXJmiKHMHXEGXBUPUQF3Y WTpccGFyXHFsXHBsYWluXG YaNHCvIaVxfVmitZ8mBmRx NxWqFKCtQEPkBX6nKNQPPK QdQAQCZG5AIGPLHNvQQKuP RWalFJSZJW6HDFLXPrLZK0 lUSVNccGFyXHBhciBNYXR0 pGV6JDBwtWYvRQSWJOkjDA OjvCgfoJ9pLfFsJlIiTaib GF5xLZGhV3hlkYQoWYZqZF HxA1hhJyMxeE7bbZgyIVij ZjFcZnMyMiBIYXJzaHdhcm JvRH2sGFjkr4HuGAAFYINq Wo6bHP3eULHuUUQ0BaNsTG BNXHBsYWluXGYxXGZzMjBc rXWieDpdijTnDOmot6GnQ8 YyMjAwMFxhbnNpXGRlZmxh cmltYAIuHKM2tzMpXOLvQH lwOSBhEEiiNz2huSRxhPea AaFtJFMtz2knreIJZIueWo GdW304TUMkDSvkj2uby5Rc NSXxoAShi1P8EBBWvlcffF h9m3bmOwQpYxN4jCCyBIvn Z9dmsbLtmMSfU1QkbEZivB t1pSrkE12fe4B8CuyeN0kz HQWjHIHwG3XoWK0bKAUhYq a4JOA6GIK1CJFlHPCmJ2Tw MD0vHHQgoYOwOMn1x7snoX yiVPEzVZT5v8ozDMnevrT9 LD2qle2fvCr1r1vtxkYzKS AxMRGczJINDLClK1HjtRok Kp5mqDp9oVvvEaclQTK1Xi m8JT4rdd47rdy0iNhoQLIa csavFhH1YZijGFJlesjwZO f8ISatFTHygAJ6AVLleSHn A7BpPBIsOV3nivp7ZTW4LO nvEHWeJpA2ALRbrOKiIPZr dIldAGtbs704FRF6MsTgCQ 0zR7Ciy5L6wI7cgIRyUCVl qCAqIfQhQIUcsn9nsABgGP dzt2SoKGT8hbI7wKJvrIVw LQOoQD05Ujzyc0FqXdqsBU N2GPKwlfNps2Byp3cvNoPu eiPrS3ooV4MlGOBgGTNqVB HyZwNyfoZif7Sve4DmnNDw fEo2f9qzVHLoNTRpwKvdc5 miHGT1IGOyW4J1lPZya1px GUqkNJWdcGL2xoC2DQJdgT QyL3GfcC7gYPQaBY8ibjr5 i2ujLWZ1DXzvZHZeFqG3zb R9VDYauDXoLYBzyAeeZEjr v033CCK8SwDmXYOew2ArY2 HteWssK29twWpjE11rWRYd qJmgjS8jvTvnpF5kVbYxBr MyNFxxbFxwbGFpblxmMVxm czIwXGxhbmcxMDMzXGhpY2 knLiZoLPTroQjfMZevq5Tj XGYxXGNmMlxmczIwXHBhci BVOLawpkHyyLFfy85dABpk eSByZXZpZXdlZCBhbGwgc3 DfX8qzZU2hA2OghZKkefZf tzOwQZfeJYJks9x5fMOzaW sgm1BfxYFyIW23tmRoNPHs KXD9FRMfn4pzSF05vpayYn FvqX65feZjwtEjQTUpy7ez S4maeWAms1Nqy8NrpaAvGW gif3BzHG5flOWlqxrgxYG5 NQSrwMEvuoUeswY5iWxrQS ZajN7ciW1dvSzueA1aIyJw GtQzSNfnHT5sCGRjC5suoK WbNTUnGPQjI5kjWyElqP9h xHomYdlpeyR0JFPrqu56 Clinical Information (test code = 3241172549) Acute abdomen Gross Description (test code = 1139013501) q8lqlKWkJXGrvBWnQvUsVX DxSGNes7inTVPwpSBnLrYv MzNcZnRuYmpcdWMxXGRlZm Qpn1phc101yCVwf1jkBOTg WaJ5jJZnMTMfnESlO033TN DiVFnpz0elc7LzGYDtfJHb j8N2DMQCubaxpRp3oXymC5 9ua0E4OpszR1deDMHmNAuj YVXjOTlpgTUzGTS8BZZqDZ O1IVdmopZjybA9JEmmjIKa BfD3NHt4c9rfeSklHLOiAE I7f8vpBMydlpYkTO9yhu3k xMl4j0cbwoIkJYRrWHBjyM SDCSJkU3SfaUcgWd3duId4 hGkuNyykNYB1Mhn8QL4ecy 17lxc9jRswFGHubwliSgR5 ZKsqELEofdxrYJj5AVcyUJ PshMJbKCUmvDHiC1McUQyw PH5rbqp5OwYkVO6huoqsOH ybVOEvDCE3WoJoAYOsk3Qx rbslNkVvbl1arx67IYN5e7 KjiDqlCEH3KXQ2WtQuBz3c dATsHZPfKK0iCoPghLWoVM Efar46nXekYPricyOrhQ0m BgHrMLVhuWLbHMDcYL3ztN RtODRfbY4lcvucZAIkNdGx cqduWDZptQccytMpAx3thH vtMRQ1OKdzC9cgrD8wNnB4 OFimR7plmI6hVUa9LCfvhU Y6KBFhtW9yRM5svoahe9mv JHL8YAorDGFvzvT4niPaFG BbbAHoC7GqcA77LcAkkBVs D0MvmN6xSWlpFRBysan0Ih VvGv2qvTDftKV0FQhjCmxd YWdlXHBnbmNvbnRccGduZG VjXHBsYWluXHBsYWluXGYw PAIkQdLma0OxVJUhz1beHq Ofs8sqgEy8REvacTyapBBr blxmMFxmczIwXHBsYWluXG OfMCIiXpKqW1SzD6hpCD4j QSBpcyByZWNlaXZlZCBpbi Rwd1VwWZuwwtVyHOTrpNbq IBC7lGTyEJRiSDAmOIHmEA 50XHBsYWluXGYxXGZzMjBc lUaxYMqbRSc7LoyqeQQlbp xmMVxmczIwIHMgbmFtZSwg VUggbnVtYmVyICJhcHBlbm RpeFxwbGFpblxmMVxmczIw PGU9JoIvZHuwKRXmlJnflD 5xYvQgOpDsEDOwFB0ePNZb seXqd0YqZD4rEZAdqZarck 13GQ1nieNmgLlbt2XaQNGx rBGuSZy8LWa6RuslS62kyR 7wbRHzO0AfOBwoTF41NCVr OCBjbSBpbiBkaWFtZXRlci gki7y9wWLidLGmS4hcSVI6 KLojb9tviE1lzVawzHPrGJ Eti6Q3eJImQWGwDJCzGCLj QC5woYxoYHHiJGX1CNExLT G3FJGeJQDqbNyjZGISvEAw KUAdTC2pzOguj2Ylw5TxXN qvy4JkCMDdylE4lHKlFIZ0 rIPwkKDvMARvvuEfaKV9bG VudCBleHVkYXRlLiBUaGUg QWKpJO8apKryuKNxx5ZdlZ YgzCcgi2WsgAlfavSqUWUf IHJldmVhbCBhIHBhdGVudC FrrV9cxkpksqYyC8oeJqCn lk1iQZRnamVmgK69GSUrRV XdUiClsNlsK54jpJAabidt DzRbU7MdcOZaPD2aslYmTN dlLiAgVGhlIHdhbGwgdGhp W6xzOCBcOJGkrrhezfGodr 7jGXXwFD9hFkExD74dQEMf cnVwdHVyZSBzaXRlIGlzIG quh5YwoKohoSInsiMtTwbl FDecNP4wGYZbYPNot40rpE tvDJ25V45qRQztrfCdJAP2 hG5aXF8ejyouat2mQgDcnr TeED94FDIgkmGty9XzeNoi buOvh5vnQ9drgV5jmQZiKD Qyre3uymZiITQ8sT5orwrj uWczFOMzyUAvnV3kYMNppv LeYFS5kP4sAT8oryoitzLf bmQgZGlzdGFsIHRpcCBhcm Ekf8ZrwCj9lYPfTPkwZHUz LUEyLlxwYXJccGFyZFxwbG FpblxmMFxmczIwXHBsYWlu XGYxXGZzMjAgSnVsaWUgTW QNdLygfsY5MRCXHWryPTO8 Embedded Images (test code = 7890322775) [facility] GLUCOSE (AUTOMATED)2019-11-05 22:19:00* Test Item Value Reference Range Interpretation Comme nts POCT GLU (test code = 2789498370) 115 mg/dL 70-110 H Lab Interpretation (test cod e = 32602-3) Abnormal [facility] GLUCOSE (AUTOMATED)2019-11-05 18:23:00* Test Item Value Reference Range Interpretation Comme nts POCT GLU (test code = 4119455199) 197 mg/dL 70-110 H Lab Interpretation (test cod e = 68599-5) Abnormal [facility] GLUCOSE (AUTOMATED)2019-11-05 17:33:00* Test Item Value Reference Range Interpretation Comme nts POCT GLU (test code = 2702604408) 125 mg/dL 70-110 H Lab Interpretation (test cod e = 15484-1) Abnormal [facility] GLUCOSE (AUTOMATED)2019-11-05 13:28:00* Test Item Value Reference Range Interpretation Comme nts POCT GLU (test code = 9182225026) 130 mg/dL 70-110 H Lab Interpretation (test cod e = 00136-7) Abnormal [facility] METABOLIC PANEL (NA, K, CL, CO2, GLUCOSE, BUN, CREATININE, CA)2019-11-05 12:11:00* Test Item Value Reference Range Interpretation Comme nts NA (test code = 2938802260) 137 mmol/L 135-145 K (test code = 4835459809) 3.6 mmol/L 3.5-5 CL (test code = 6406594202) 100 mmol/L 98-108 CO2 TOTAL (test code = 3033019439) 30 mmol/L 23-31 AGAP (test code = 3188325109) 2-16 BUN (test code = 3649216710) 14 mg/dL 7-23 GLUCOSE (test code = 0247773369) 164 mg/dL 70-110 H CREATININE (test code = 2313046574) 0.81 mg/dL 0.6-1.25 CALCIUM (test code = 4343457067) 8.6 mg/dL 8.6-10.6 eGFR Calculation (Non-) (test code = 9644020323) mL/min/1.73m2 eGFR Calculation () (test code = 4117575924) mL/min/1.73m2 KATE (test code = KATE) Association [...] imaging tests). Lab Interpretation (test code = 09251-6) Abnormal [facility] WITH [id number] 11:39:00* Test Item Value Reference Range Interpretation Comme nts WBC (test code = 6690-2) See_Comment [Blabroom] The system which generated this result transmitted reference range: 4.20 - 10.70 10*3/?L. The reference range was not used to interpret this result as normal/abnormal. RBC (test code = 789-8) See_Comment [Blabroom] The system which generated this result transmitted [...] 33.1 g/dL 31.2-35 RDW-SD (test code = 49272-6) 38.7 fL 38.5-51.6 RDW-CV (test code = 788-0) 13.0 % 12.1-15.4 PLT (test code = 777-3) See_Comment [Automated Personetaa ge] The system which generated this result transmitted reference range: 150 - 328 10*3/?L. The reference range was not used to interpret this result as normal/abnormal. MPV (test code = 11191-8) 11.5 fL 9.8-13 NRBC/100 WBC (test code = 4563090044) See_Comment [Automated [employer] ssage] The system which generated this result transmitted reference range: 0.0 - 10.0 /100 WBCs. The reference range was not used to interpret this result as normal/abnormal. NRBC x10^3 (test code = 3101329171) <0.01 See_Comment [Automated Personetaa ge] The system which generated this result transmitted reference range: 10*3/?L. The reference range was not used to interpret this result as normal/abnormal. GRAN MAT (NEUT) % (test code = 770-8) 83.5 % IMM GRAN % (test code = 8666854149) 0.30 % LYMPH % (test code = 736-9) 9.3 % MONO % (test code = 5905-5) 5.7 % EOS % (test code = 713-8) 1.1 % BASO % (test code = 706-2) 0.1 % GRAN MAT x10^3(ANC) (test code = 8990949968) 7.74 10*3/uL 1.99-6.95 H IMM GRAN x10^3 (test code = 5899599815) 0.03 10*3/uL 0-0.06 LYMPH x10^3 (test code = 731-0) 0.86 10*3/uL 1.09-3.23 L MONO x10^3 (test code = 742-7) 0.53 10*3/uL 0.36-1.02 EOS x10^3 (test code = 711-2) 0.10 10*3/uL 0.06-0.53 BASO x10^3 (test code = 704-7) <0.03 0.01-0.09 Lab Interpretation (test code = 85378-9) Abnormal [facility] GLUCOSE (AUTOMATED)2019-11-05 10:22:00* Test Item Value Reference Range Interpretation Comme nts POCT GLU (test code = 5145184052) 149 mg/dL 70-110 H Lab Interpretation (test cod e = 92338-1) Abnormal [facility] GLUCOSE (AUTOMATED)2019-11-05 06:15:00* Test Item Value Reference Range Interpretation Comme nts POCT GLU (test code = 9250438564) 204 mg/dL 70-110 H Lab Interpretation (test cod e = 35296-4) Abnormal [facility] GLUCOSE (AUTOMATED)2019-11-05 01:48:00* Test Item Value Reference Range Interpretation Comme nts POCT GLU (test code = 4320177302) 227 mg/dL 70-110 H Lab Interpretation (test cod e = 88626-0) Abnormal [facility] GLUCOSE (AUTOMATED)2019-11-04 22:30:00* Test Item Value Reference Range Interpretation Comme nts POCT GLU (test code = 9016922470) 132 mg/dL 70-110 H Lab Interpretation (test cod e = 67822-7) Abnormal [facility] GLUCOSE (AUTOMATED)2019-11-04 17:24:00* Test Item Value Reference Range Interpretation Comme nts POCT GLU (test code = 8785869788) 213 mg/dL 70-110 H Lab Interpretation (test cod e = 74435-2) Abnormal [facility] GLUCOSE (AUTOMATED)2019-11-04 13:31:00* Test Item Value Reference Range Interpretation Comme nts POCT GLU (test code = 0052748899) 203 mg/dL 70-110 H Lab Interpretation (test cod e = 30804-8) Abnormal [facility] GLUCOSE (AUTOMATED)2019-11-04 12:03:00* Test Item Value Reference Range Interpretation Comme nts POCT GLU (test code = 1741365139) 213 mg/dL 70-110 H Lab Interpretation (test cod e = 37937-6) [facility]2019-11-03 23:50:00* Test Item Value Reference [...] ?Diabetes Indicated Lab Interpretation (test code = 73985-6) [facility] 23:28:00* Test Item Value Reference Range Interpretation Comme nts POCT GLU (test code = 5038160354) 273 mg/dL 70-110 H Lab Interpretation (test cod e = 96449-2) [facility]normal [facility] W [id number] 18:01:52CT Abdomen and Pelvis with intravenous contrast. [...] Rhoades in the emergency room at 12:00. [facility] Results Inft User - 11/03/2019 12:02 [...] with Dr. Rhoades in the emergency room at12:00.[facility] [id number] 16:23:00* Test Item Value Reference Range Interpretation Comme nts APPEARANCE (test code = 3650620599) Clear Clear COLOR (test code = 1472886581) Yellow Yellow PH (test code = 6500225330) 4.8-8.0 SP GRAVITY (test code = 6484395884) 1.003-1.030 GLU U QUAL (test code = 8026785730) 500 mg/dL Normal A BLOOD (test code = 7898007986) Negative Negative KETONES (test code = 4964516020) Negative Negative PROTEIN (test code = 2887-8) Negative Negative UROBILIN (test code = 9113870541) Normal Normal BILIRUBIN (test code = 1667267590) Negative Negative NITRITE (test code = 0923547678) Negative Negative LEUK IBANCA (test code = 2151015244) Negative Negative RBC/HPF (test code = 1752461501) See_Comment [Automated Personetaa ge] The system which generated this result transmitted reference range: 0 - 3 HPF. The reference range was not used to interpret this result as normal/abnormal. WBC/HPF (test code = 1457149865) See_Comment [Automated Personetaa ge] The system which generated this result transmitted reference range: 0 - 5 HPF. The reference range was not used to interpret this result as normal/abnormal. BACTERIA (test code = 1769142560) Negative Negative MUCOUS (test code = 1744712872) Slight Negative LPF A SQ EPITH (test code = 1115624008) <1 HPF Lab Interpretation (test code = 60221-2) Abnormal [facility]. METABOLIC PANEL (13528)2019-11-03 16:04:00* Test Item Value Reference Range Interpretation Comme nts NA (test code = 6869340219) 137 mmol/L 135-145 K (test code = 7440496037) 4.3 mmol/L 3.5-5 CL (test code = 7157780404) 98 mmol/L 98-108 CO2 TOTAL (test code = 9621603169) 28 mmol/L 23-31 AGAP (test code = 6717942231) 2-16 BUN (test code = 1010131577) 11 mg/dL 7-23 GLUCOSE (test code = 0103538881) 356 mg/dL 70-110 H CREATININE (test code = 6317169875) 1.01 mg/dL 0.6-1.25 TOTAL BILI (test code = 1018725113) 0.9 mg/dL 0.1-1.1 CALCIUM (test code = 4760930217) 9.1 mg/dL 8.6-10.6 T PROTEIN (test code = 4380415143) 7.5 g/dL 6.3-8.2 ALBUMIN (test code = 8102539432) 4.7 g/dL 3.5-5 ALK PHOS (test code = 3210071170) 73 U/L 34-122 ALTv (test code = 1742-6) 38 U/L 5-50 AST(SGOT) (test code = 5750002966) 25 U/L 13-40 eGFR Calculation (Non-) (test code = 0093539178) mL/min/1.73m2 eGFR Calculation () (test code = 1588148093) mL/min/1.73m2 KATE (test code = KATE) Association [...] imaging tests). Lab Interpretation (test code = 86704-5) [facility] 16:03:00* Test Item Value Reference Range Interpretation Comme nts LIPASE (test code = 2144176673) 48 U/L 0-220 Lab Interpretation (test cod e = 35217-9) Normal [facility] WITH [id number] 15:51:00* Test Item Value Reference Range Interpretation [...] 32.7 g/dL 31.2-35 RDW-SD (test code = 32873-9) 37.8 fL 38.5-51.6 L RDW-CV (test code = 788-0) 12.7 % 12.1-15.4 PLT (test code = 777-3) See_Comment [Automated message] The system which generated this result transmitted reference range: 150 - 328 10*3/?L. The reference range was not used to interpret this result as normal/abnormal. MPV (test code = 47757-8) 10.9 fL 9.8-13 NRBC/100 WBC (test code = 7929070298) See_Comment [Automated message] The system which generated this result transmitted reference range: 0.0 - 10.0 /100 WBCs. The reference range was not used to interpret this result as normal/abnormal. NRBC x10^3 (test code = 0821293203) <0.01 See_Comment [Automated message] The system which generated this result transmitted reference range: 10*3/?L. The reference range was not used to interpret this result as normal/abnormal. GRAN MAT (NEUT) % (test code = 770-8) 91.5 % IMM GRAN % (test code = 7846466467) 0.50 % LYMPH % (test code = 736-9) 3.9 % MONO % (test code = 5905-5) 3.8 % EOS % (test code = 713-8) 0.1 % BASO % (test code = 706-2) 0.2 % GRAN MAT x10^3(ANC) (test code = 5332617677) 12.89 10*3/uL 1.99-6.95 H IMM GRAN x10^3 (test code = 9799683214) 0.07 10*3/uL 0-0.06 H LYMPH x10^3 (test code = 731-0) 0.55 10*3/uL 1.09-3.23 L MONO x10^3 (test code = 742-7) 0.54 10*3/uL 0.36-1.02 EOS x10^3 (test code = 711-2) <0.03 0.06-0.53 L BASO x10^3 (test code = 704-7) 0.03 10*3/uL 0.01-0.09 Lab Interpretation (test code = 26592-6) Abnormal [facility]"
--- NOTE | 2024-09-16 21:06 | RAD REPORT ---
EXAM: CT CHEST, ABDOMEN AND PELVIS WITHOUT CONTRAST CLINICAL INDICATION: sensation of esophageal food bolus TECHNIQUE: CT chest, abdomen and pelvis was performed without contrast, as per department protocol. A xial, sagittal and coronal reconstructions were obtained. One or more of the following dose reduction techniques were used: Automated exposure control, adjustment of the mA and/or kV according to patient size, and/or iterative reconstruction. Unless otherwise specified, incidental findings do not require dedicated imaging follow-up. Examination is limited by the lack of intravenous contrast material. COMPARISON: No prior exam. FINDINGS: Diffuse thyroid goiter noted. LUNGS: No evidence of airspace or interstitial process. No nodules. PLEURA: No pleural effusion. No pneumothorax. MEDIASTINUM AND LYMPH NODES: No mediastinal mass or fluid collection. Normal size mediastinal, hilar, and axillary lymph nodes. Distal esophagus demonstrates 25 mm oblong soft tissue structure and a small hiatal hernia is also present with a small adjacent lymph nodes seen measuring 5 mm. OSSEOUS STRUCTURES AND CHEST WALL: Intact. LIVER: Normal in size and contour. No focal lesion or biliary dilatation. Cholelithiasis. PANCREAS: No mass, ductal dilation, or deangelo-pancreatic fluid. SPLEEN: Normal size. No focal lesion. ADRENALS: Normal; no mass. KIDNEYS: Normal size and contour. No hydronephrosis. URINARY BLADDER: Normal contour. GASTROINTESTINAL TRACT: No bowel obstruction, free air, significant free fluid or abscess. Moderate stool in the colon. APPENDIX: Normal appendix. LYMPH NODES: No lymphadenopathy. MUSCULOSKELETAL: No acute or suspicious osseous abnormality. OTHER: IMPRESSION: 2.5 cm soft tissue structure in the distal esophagus may be impacted food bolus or large polyp/mass. There is also associated small hiatal hernia with a small adjacent lymph node. Advise upper endoscopy for further evaluation. Cholelithiasis. Diffuse thyroid goiter.
[2024-09-16] MEDS ORDERED: PROMETHAZINE INJ 25 MG/ML AMP ONE (21:07)
[2024-09-16] MEDS ORDERED: ONDANSETRON 4 MG/2 ML VIAL ONE (21:07)
[2024-09-16] MEDS ORDERED: DIAZEPAM 10 MG/2 ML INJ SYRINGE ONE (21:07)
[2024-09-16] MEDS ORDERED: NA CHLORIDE 0.9% 1,000 ML ONE (21:08)
[2024-09-16] MEDS ORDERED: GLUCAGON 1 MG/VIAL ONE ×2 (21:08→23:36)
[2024-09-16 21:21] LABS: Absolute Basophils 0.1 K/uL (0-0.5); Absolute Eosinophils 0.1 K/uL (0-0.5); Absolute Lymphocytes (CBC) 1.4 K/uL (0.7-4.9); Absolute Monocytes 0.4 K/uL (0.1-1.3); Absolute Neutrophil 5.7 K/uL (1.8-8.0); Basophils % 0.7 % (0-1.3); Eosinophils % 1.7 % (0-4.4); Hematocrit 50.4 % (39.6-49.0); Hemoglobin 16.7 g/dL (13.6-17.9); MCH 26.7 pg (27.0-35.0); MCHC 33.1 g/dL (32.0-36.0); MCV 80.8 fL (80-100); MPV 8.8 fL (7.6-11.3); Monocytes % 4.9 % (3.3-12.3); Neutrophils % 74.7 % (41.7-73.7); Nucleated Red Blood Cells % 0.3 % (0-0); Platelets 159 thou/uL (152-406); RBC Red Blood Cell Count 6.24 M/uL (4.33-5.43); Red Cell Distribution Width 13.6 % (12.1-15.2)
[2024-09-16 21:42] LABS: Albumin 3.7 g/dL (3.4-5.0); Albumin/Globulin Ratio 1.1 (1.1-1.8); Anion Gap 9.1 mEq/L (5.0-15.0); Globulin 3.5 g/dL (2.3-3.5); Potassium 4.1 mEq/L (3.5-5.1); Protein, Total 7.2 g/dL (6.4-8.2)
--- NOTE | 2024-09-16 22:49 | EDPHYS ---
Physician Documentation [facility] Name: Chente Minaya Age: 54 yrs Sex: Male : 1970 Arrival Date: 09/16/2024 Time: 19:22 Bed 13 Private MD: ED Physician Kristian Collins HPI: 09/16 19:59 This 54 yrs old Male presents to ER via Unassigned with complaints of Foreign sp4 Body In Throat. 09/17 21:31 Patient presents for a visit complaining of acute dysphagia with sensation of foreign sp4 body in the esophagus.. Historical: - Allergies: 09/16 20:04 Bactrim; lg3 20:04 mushroom; lg3 20:04 Mustard; lg3 20:04 PENICILLINS; lg3 20:04 Reglan; lg3 20:04 Sulfa (Sulfonamide Antibiotics); lg3 20:04 surgical steel; lg3 20:04 tramadol; lg3 20:04 Tylenol-Codeine #3; lg3 20:04 Tylenol-Codeine #4; lg3 - PMHx: 20:04 diabetes mellitus; GERD; hiatal hernia (Migraine); Migraine; lg3 - PSHx: 20:04 Appendectomy; lg3 - Immunization history:: Adult Immunizations up to date. - Infectious Disease History:: Denies. - Social history:: Smoking status: Patient denies any tobacco usage or history of. Patient uses alcohol, occasionally. Patient/guardian denies using street drugs. - Family history:: not pertinent. ROS: 09/17 21:31 Constitutional: Negative for fever, chills, and weight loss, positive for dysphagia sp4 All other systems are negative, Exam: 21:31 Constitutional: This is a well developed, well nourished patient who is awake, alert, sp4 and in no acute distress. Head/Face: Normocephalic, atraumatic. Eyes: Pupils equal round and reactive to light, extra-ocular motions intact. Lids and lashes normal. Conjunctiva and sclera are not injected. Cornea within normal limits. Periorbital areas with no swelling, redness, or edema. ENT: Nares patent. No nasal discharge, no septal abnormalities noted. Tympanic membranes are normal and external auditory canals are clear. Oropharynx with no redness, swelling, or masses, exudates, or evidence of obstruction, uvula midline. Mucous membranes moist. Neck: Trachea midline, no thyromegaly or masses palpated, and no cervical lymphadenopathy. Supple, full range of motion without nuchal rigidity, or vertebral point tenderness. Chest/axilla: Normal chest wall appearance and motion. Nontender with no deformity. No lesions are appreciated. Cardiovascular: Regular rate and rhythm with a normal S1 and S2. No gallops, murmurs, or rubs. Normal PMI, no JVD. No pulse deficits. Respiratory: Lungs have equal breath sounds bilaterally, clear to auscultation and percussion. No rales, rhonchi or wheezes noted. No increased work of breathing, no retractions or nasal flaring. Abdomen/GI: Soft, with normal bowel sounds. No distension or tympany. No guarding or rebound. No evidence of tenderness throughout. Back: No spinal tenderness. No costovertebral tenderness. Skin: Warm, dry with normal turgor. Normal color with no rashes, no lesions, and no evidence of cellulitis. MS/ Extremity: Pulses equal, no cyanosis. Neurovascular intact. Full, normal range of motion. Neuro: Awake and alert, GCS 15, oriented to person, place, time, and situation. Cranial nerves II-XII grossly intact. Motor strength 5/5 in all extremities. Sensory grossly intact. Psych: Awake, alert, with orientation to person, place and time. Behavior, mood, and affect are within normal limits Vital Signs: 09/16 20:02 BP 144 / 81; Pulse 82; Resp 16 S; Temp 98.3(TE); Pulse Ox 99% on R/A; Weight 124.74 kg lg3 (R); Height 6 ft. 2 in. ; Pain 0/10; 21:30 BP 121 / 71; Pulse 80; Resp 20; Pulse Ox 98% on R/A; kj2 22:30 BP 122 / 80; Pulse 70; Resp 18; Pulse Ox 100% on R/A; kj2 09/17 00:51 BP 124 / 83; Pulse 78; Resp 18; Pulse Ox 94% ; kj2 09/16 20:02 Body Mass Index 35.31 (124.74 kg, 187.96 cm) 3 09/16 20:02 Pain Scale: Adult lg3 [place] Coma Score: 21:31 Eye Response: spontaneous(4). Motor Response: obeys commands(6). Verbal Response: sp4 oriented(5). Total: 15. MDM: 09/16 20:37 Medical Screening Exam initiated sp4 22:47 ED course: IMPRESSION CT chest 2.5 cm soft tissue structure in the distal esophagus may sp4 be impacted food bolus or large polyp/mass. There is also associated small hiatal hernia with a small adjacent lymph node. Advise upper endoscopy for further evaluation. Cholelithiasis. Diffuse thyroid goiter. . 09/17 21:32 Differential diagnosis: asthma, Bronchitis pneumonia, Psychogenic. Data reviewed: vital sp4 signs, nurses notes, lab test result(s), radiologic studies, CT scan. ED course: Patient stable for admission for gastroenterology assessment in the morning. 09/16 20:36 Order name: CBC with Diff; Complete Time: 22:43 sp4 09/16 20:36 Order name: CMP; Complete Time: 22:43 sp4 09/16 23:07 Order name: Magnesium EDMS 09/16 23:07 Order name: Phosphorus EDMS 09/16 23:07 Order name: Urinalysis w/ reflexes EDMS 09/16 23:56 Order name: Glucose, Ancillary Testing; Complete Time: 00:24 EDMS 09/16 20:37 Order name: CT Chest Abdomen Pelvis W/O Contrast; Complete Time: 22:43 sp4 09/16 20:36 Order name: IV Saline Lock; Complete Time: 21:11 sp4 09/16 20:36 Order name: Labs collected and sent; Complete Time: 21:11 sp4 Administered Medications: 09/16 21:27 Drug: Ondansetron IVP 4 mg IVP once; over 2 minutes Route: IVP; Site: left antecubital; 09/17 00:25 Follow up: Response: No adverse reaction 09/16 21:28 Drug: NS 0.9% IV 1000 ml IV at 1 bolus Per protocol; to be given as a bolus over 60 kj2 minutes Route: IV; Rate: 1 bolus; Site: left antecubital; 21:28 Drug: Promethazine IM 25 mg IM once Route: IM; Site: left deltoid; 09/17 00:26 Follow up: Response: No adverse reaction kj2 09/16 21:29 Drug: Glucagon IVP 1 mg IVP once Route: IVP; Site: left antecubital; kj2 09/17 00:26 Follow up: Response: No adverse reaction kj2 09/16 21:29 Drug: Diazepam IVP 5 mg IVP once Route: IVP; Site: left antecubital; kj2 09/17 00:26 Follow up: Response: No adverse reaction kj2 09/16 23:45 Drug: morphine IVP or IV 4 mg IVP once over 4 mins Route: IVP; Infused Over: 4 mins; kj2 Site: left antecubital; 09/17 00:25 Follow up: Response: No adverse reaction kj2 09/16 23:45 Drug: Pantoprazole IVP 40 mg IVP once Route: IVP; Site: left antecubital; kj2 09/17 00:26 Follow up: Response: No adverse reaction kj2 09/16 23:46 Drug: Glucagon IVP 1 mg IVP once Route: IVP; Site: left antecubital; kj2 09/17 00:25 Follow up: Response: No adverse reaction kj2 Disposition Summary: 09/16/24 22:49 Hospitalization Ordered Notes: Hospitalization Status: Observation sp4 Provider: Prince yakov Lange [facility] sp4 Condition: Stable sp4 Problem: new sp4 Symptoms: have improved sp4 Bed/Room Type: Standard sp4 Room Assignment: [facility](09/16/24 23:43) [facility] Diagnosis - Acute Esophageal Food Impaction, Acute Dysphagia sp4 Forms: - Medication Reconciliation Form sp4 - SBAR form sp4 - Leadership Thank You Letter sp4 Signatures: Dispatcher [employer] Kristi Bobby RN RN lg3 Kristian Collins MD MD sp4 Stacey Baxter f Bernie Ace RN RN kj2 Corrections: (The following items were deleted from the chart) 09/16 23:43 22:49 sp4 [facility]
--- NOTE | 2024-09-16 22:49 | ER ---
Nurse's Notes [facility] Name: Chente Minaya Age: 54 yrs Sex: Male : 1970 Arrival Date: 09/16/2024 Time: 19:22 Bed 13 Private MD: Diagnosis: Acute Esophageal Food Impaction, Acute Dysphagia Presentation: 09/16 20:02 Chief complaint: Patient states: left last night after being seen for same issue. i lg3 thought it was fixed but this morning i tried eating a breakfast taco and i can still feel food in my throat. Coronavirus screen: Client denies travel out of the [place] in the last 14 days. At this time, the client does not indicate any symptoms associated with coronavirus-19. Ebola Screen: No symptoms or risks identified at this time. Initial Sepsis Screen: Does the patient meet any 2 criteria? No. Patient's initial sepsis screen is negative. Does the patient have a suspected source of infection? No. Patient's initial sepsis screen is negative. Risk Assessment: Do you want to hurt yourself or someone else? Patient reports no desire to harm self or others. Onset of symptoms was September 15, 2024. 20:02 Method Of Arrival: Ambulatory lg3 20:02 Acuity: GILDARDO 3 lg3 Triage Assessment: 20:04 General: Appears in no apparent distress. comfortable, Behavior is calm, cooperative. lg3 Pain: Denies pain. EENT: Reports food in throat. Neuro: No deficits noted. [place] Agitation-Sedation Scale (RASS): 0 - Alert and Calm Level of Consciousness is awake, alert, obeys commands, Oriented to person, place, time, situation. Cardiovascular: No deficits noted. Denies chest pain, shortness of breath, Capillary refill < 3 seconds Clubbing of nail beds is absent JVD is absent Patient's skin is warm and dry. Respiratory: No deficits noted. Respiratory effort is even, unlabored, Respiratory pattern is regular, symmetrical. GI: No deficits noted. No signs and/or symptoms were reported involving the gastrointestinal system. Abdomen is round non-distended. : No signs and/or symptoms were reported regarding the genitourinary system. Derm: No deficits noted. No signs and/or symptoms reported regarding the dermatologic system. Skin is intact, is healthy with good turgor, Skin is dry, Skin is normal, Skin temperature is warm. Musculoskeletal: No deficits noted. No signs and/or symptoms reported regarding the musculoskeletal system. Circulation, motion, and sensation intact. Range of motion: intact in all extremities. Historical: - Allergies: 20:04 Bactrim; lg3 20:04 mushroom; lg3 20:04 Mustard; lg3 20:04 PENICILLINS; lg3 20:04 Reglan; lg3 20:04 Sulfa (Sulfonamide Antibiotics); lg3 20:04 surgical steel; lg3 20:04 tramadol; lg3 20:04 Tylenol-Codeine #3; lg3 20:04 Tylenol-Codeine #4; lg3 - PMHx: 20:04 diabetes mellitus; GERD; hiatal hernia (Migraine); Migraine; lg3 - PSHx: 20:04 Appendectomy; lg3 - Immunization history:: Adult Immunizations up to date. - Infectious Disease History:: Denies. - Social history:: Smoking status: Patient denies any tobacco usage or history of. Patient uses alcohol, occasionally. Patient/guardian denies using street drugs. - Family history:: not pertinent. Screenin:[facility] ED Fall Risk Assessment (Adult) History of falling in the last 3 months, kj2 including since admission No falls in past 3 months (0 pts) Confusion or Disorientation No (0 pts) Intoxicated or Sedated No (0 pts) Impaired Gait No (0 pts) Mobility Assist Device Used No (0 pt) Altered Elimination No (0 pt) Score/Fall Risk Level 0 - 2 = Low Risk Maintained a safe environment, Hourly rounding (assess needs \T\ fall precautionary measures) done. Abuse screen: Denies threats or abuse. Denies injuries from another. Nutritional screening: No deficits noted. Tuberculosis screening: No symptoms or risk factors identified. Assessment: 20:44 General: Appears in no apparent distress. Behavior is cooperative. Pain: Complains of kj2 pain in throat. Neuro: Level of Consciousness is awake, alert, obeys commands, Oriented to person, place, time, situation. Cardiovascular: Patient's skin is warm and dry. Respiratory: Airway is patent Respiratory effort is unlabored. GI: No signs and/or symptoms were reported involving the gastrointestinal system. : No signs and/or symptoms were reported regarding the genitourinary system. EENT: Reports something stuck in throat. 21:45 Reassessment: Patient appears in no apparent distress at this time. Patient and/or kj2 family updated on plan of care and expected duration. Pain level reassessed. Patient is alert, oriented x 3, equal unlabored respirations, skin warm/dry/pink. 22:45 Reassessment: Patient appears in no apparent distress at this time. Patient and/or kj2 family updated on plan of care and expected duration. Pain level reassessed. Patient is alert, oriented x 3, equal unlabored respirations, skin warm/dry/pink. 09/17 00:44 Reassessment: no answer for report. kj2 01:30 Reassessment: Patient appears in no apparent distress at this time. Patient and/or kj2 family updated on plan of care and expected duration. Pain level reassessed. Patient is alert, oriented x 3, equal unlabored respirations, skin warm/dry/pink. Vital Signs: 09/16 20:02 BP 144 / 81; Pulse 82; Resp 16 S; Temp 98.3(TE); Pulse Ox 99% on R/A; Weight 124.74 kg lg3 (R); Height 6 ft. 2 in. ; Pain 0/10; 21:30 BP 121 / 71; Pulse 80; Resp 20; Pulse Ox 98% on R/A; kj2 22:30 BP 122 / 80; Pulse 70; Resp 18; Pulse Ox 100% on R/A; kj2 09/17 00:51 BP 124 / 83; Pulse 78; Resp 18; Pulse Ox 94% ; kj2 09/16 20:02 Body Mass Index 35.31 (124.74 kg, 187.96 cm) lg3 09/16 20:02 Pain Scale: Adult lg3 [place] Coma Score: 21:31 Eye Response: spontaneous(4). Motor Response: obeys commands(6). Verbal Response: sp4 oriented(5). Total: 15. ED Course: 09/16 19:29 Patient arrived in ED. gm2 19:58 Kristian Collins MD is Attending Physician. sp4 20:04 Triage completed. lg3 20:04 Arm band placed on right wrist. lg3 20:43 Bernie Ace, CORA is Primary Nurse. kj2 20:56 CT Chest Abdomen Pelvis W/O Contrast In Process Unspecified. EDMS 21:11 Inserted saline lock: 20 gauge in left antecubital area, using aseptic technique. Blood af3 collected. Flushed with 10 mL NS. 21:51 Patient has correct armband on for positive identification. Bed in low position. Call kj2 light in reach. Provided Education on: call light. 21:51 No provider procedures requiring assistance completed. kj2 22:48 Prince Lange MD is Hospitalizing Provider. 4 09/17 01:48 Patient admitted, IV remains in place. kj2 Administered Medications: 09/16 21:27 Drug: Ondansetron IVP 4 mg IVP once; over 2 minutes Route: IVP; Site: left antecubital; kj2 09/17 00:25 Follow up: Response: No adverse reaction kj2 09/16 21:28 Drug: NS 0.9% IV 1000 ml IV at 1 bolus Per protocol; to be given as a bolus over 60 kj2 minutes Route: IV; Rate: 1 bolus; Site: left antecubital; 21:28 Drug: Promethazine IM 25 mg IM once Route: IM; Site: left deltoid; kj2 09/17 00:26 Follow up: Response: No adverse reaction kj2 09/16 21:29 Drug: Glucagon IVP 1 mg IVP once Route: IVP; Site: left antecubital; kj2 09/17 00:26 Follow up: Response: No adverse reaction kj2 09/16 21:29 Drug: Diazepam IVP 5 mg IVP once Route: IVP; Site: left antecubital; kj2 09/17 00:26 Follow up: Response: No adverse reaction kj2 09/16 23:45 Drug: morphine IVP or IV 4 mg IVP once over 4 mins Route: IVP; Infused Over: 4 mins; kj2 Site: left antecubital; 09/17 00:25 Follow up: Response: No adverse reaction kj2 09/16 23:45 Drug: Pantoprazole IVP 40 mg IVP once Route: IVP; Site: left antecubital; kj2 09/17 00:26 Follow up: Response: No adverse reaction kj2 09/16 23:46 Drug: Glucagon IVP 1 mg IVP once Route: IVP; Site: left antecubital; kj2 09/17 00:25 Follow up: Response: No adverse reaction kj2 Medication: 09/16 21:51 VIS not applicable for this client. kj2 Outcome: 22:49 Decision to Hospitalize by Provider. yakov 09/17 01:47 Admitted to Med/surg accompanied by tech, via wheelchair, kj2 Condition: stable Instructed on the need for admit, 01:48 Patient left the ED. kj2 Signatures: Dispatcher [employer] EDMS Kristi Morris RN RN lg3 Kristian Collins MD MD sp4 Tiffany Mays gm2 Bernie Ace RN RN kj2 Fauzia Dalton 3
[2024-09-16] MEDS ORDERED: ONDANSETRON 4 MG/2 ML VIAL IV PRN (23:03)
[2024-09-16] MEDS ORDERED: SODIUM CHLORIDE 0.9% 10ML INJ IV PRN (23:06)
[2024-09-16] MEDS: PANTOPRAZOLE 40 MG INJ IVP SCH (23:06)
--- NOTE | 2024-09-16 23:10 | P.HP ---
Certification for Inpatient Patient admitted to: Observation With expected LOS: <2 Midnights Practitioner: I am a practitioner with admitting privileges, knowledge of patient current condition, hospital course, and medical plan of care. Services: Services provided to patient in accordance with Admission requirements found in Title 42 Section 412.3 of the Code of Federal Regulations Patient History Date of Service: 09/16/24 Reason for admission: food impaction History of Present Illness: Patient is a 58-year-old male with a past medical history of type 2 diabetes mellitus, GERD and chronic pain. He returns to the hospital a day after a visit to the ER for food impaction. Patient at that time was able to pass down his food after 2 doses of glucagon. Patient was discharged on the same day. He now returns today for similar complaints. Patient was able to have breakfast this morning. He ate some potatoes and sausage and has not been able to pass the food down his esophagus. CT reveals esophageal food impaction. Dr. Doyle has been consulted for endoscopic evaluation tomorrow. Allergies acetaminophen [From Tylenol] Allergy (Verified 04/04/12 17:18) Hives/Rash coconut oil Allergy (Verified 06/26/15 10:27) Nausea/Vomiting codeine phosphate [From Tylenol-Codeine #3] Allergy (Unverified 01/19/17 01:07) Unknown mushroom Allergy (Verified 06/26/15 10:27) Nausea/Vomiting Penicillins Allergy (Verified 04/04/12 17:18) Hives/Rash Sulfa (Sulfonamide Antibiotics) Allergy (Unverified 08/01/15 00:10) Unknown sulfamethoxazole [From Bactrim] Allergy (Verified 04/04/12 17:18) Hives/Rash trimethoprim [From Bactrim] Allergy (Verified 04/04/12 17:18) Hives/Rash uracil mustard Allergy (Verified 06/26/15 10:27) Nausea/Vomiting Bactrim DS Allergy (Uncoded 06/26/15 12:44) Hives/Rash Tyle Allergy (Uncoded 02/18/16 00:29) Unknown Tyleno Allergy (Uncoded 04/13/16 23:49) Unknown Tylenol Allergy (Uncoded 05/08/16 21:24) Unknown Tylenol- Allergy (Uncoded 06/30/16 02:24) Unknown Tylenol-Co Allergy (Uncoded 05/02/16 10:40) Unknown Tylenol-Codeine Allergy (Uncoded 02/05/16 14:51) Unknown Tylenol-Codeine #4 Allergy (Uncoded 12/02/15 21:06) Unknown Home Medications: Hydrocodone Bit/Acetaminophen [Hydrocodon-Acetaminoph 7.5-325] 1 tab PO BID 05/23/23 Insulin Detemir [Levemir Flexpen] 30 units SQ BID 05/23/23 Hydrocodone 10/APAP 325 [[place] 10/325] 1 tab PO Q6H PRN #30 tab 05/24/23 Smz./Tmp. [Bactrim Ds 800 MG/160 MG] 1 tab PO BID #20 tab 05/24/23 levoFLOXacin [Levaquin] 500 mg PO DAILY #10 tab 05/24/23 - Past Medical/Surgical History Diabetic: Yes -: Diabetes -: GERD -: Migraine -: depression -: neuropathy -: stuck food bolus in throat -: surgery left hand staph infection -: heel spur left foot -: removal of food bolus x 20 - Family History Father -: Heart disease, Diabetes Mother -: Heart disease - Social History Alcohol use: Yes CD- Drugs: No Caffeine use: Yes Physical Examination - Physical Exam General: In no apparent distress HEENT: Atraumatic, Normocephalic Respiratory: Clear to auscultation bilaterally, Normal air movement Cardiovascular: No edema, Normal pulses, Regular rate/rhythm, Normal S1 S2 Neurological: Normal speech - Studies Laboratory Data (last 24 hrs) 09/16/24 09/16/24 21:09 21:09 WBC 7.60 Hgb 16.7 Hct 50.4 H Plt Count 159 Sodium 137 Potassium 4.1 BUN 14 Creatinine 1.21 Glucose 110 H Total Bilirubin 1.0 AST 23 ALT 30 Alkaline Phosphatase 56 Assessment and Plan - Problems (Diagnosis) (1) Chest pain Onset Date: 10/24/15 Current Visit: No Status: Acute (2) Diabetes mellitus Current Visit: No Status: Acute (3) Food impaction of esophagus Onset Date: 05/02/16 Current Visit: No Status: Acute - Plan Assessment This is a 54-year-old male with a known history of GERD and hiatal hernia who is being readmitted for food impaction. Gastroenterology has been consulted for EGD tomorrow. Food impaction Hiatal hernia GERD Type 2 diabetes mellitus Plan: Will admit under observation IV fluid infusion N.p.o. after midnight for endoscopic food retrieval GI consult Antiemetics and PPI Patient is full code - Advance Directives Does patient have a Living Will: No Does patient have a Durable POA for Healthcare: No
[2024-09-16] MEDS ORDERED: MORPHINE 4 MG/ML SYR ONE (23:35)
[2024-09-16] MEDS ORDERED: PANTOPRAZOLE 40 MG INJ ONE (23:35)
[2024-09-17] MEDS: NA CHLORIDE 0.9% 1,000 ML IV SCH (01:45)
[2024-09-17 01:59] VITALS: BMI 35.3
[2024-09-17 06:49] LABS: Magnesium 2.1 mg/dL (1.6-2.4); Phosphorus 2.7 mg/dL (2.5-4.9)
[2024-09-17] MEDS: PNEUMOCOCCAL VACCINE 0.5 ML IMVAC ONE (12:00)
[2024-09-17] MEDS ORDERED: propofoL 200 MG/20 ML VIAL IV ONE (12:32)
[2024-09-17] MEDS ORDERED: LIDOCAINE 1% MPF 5 ML VIAL ONE (12:32)
[2024-09-17] MEDS: NA CHLORIDE 0.9% 1,000 ML ONE (13:34)
[2024-09-17] MEDS ORDERED: GLYCOPYRROLATE 0.2 MG/ML SYR ONE (15:05)
[2024-09-17 15:27] VITALS: O2SAT 97
[2024-09-17 16:05] VITALS: BP 114/66; TEMP 98.1
--- NOTE | 2024-09-17 16:42 | P.DS ---
Admission Date: 09/16/24 Discharge Date: 09/17/24 Disposition: ROUTINE DISCHARGE Discharge Condition: GOOD Reason for Admission: food impaction Consultations: Dr. Rader Procedures: EGD with basket removal of esophageal meat bolus Brief History of Present Illness: Patient is a 54-year-old male with a past medical history of type 2 diabetes mellitus, GERD, and chronic pain. He returns to the hospital a day after a visit to the ER for food impaction. Patient at that time was able to pass down his food after 2 doses of glucagon. Patient was discharged on the same day. He now returns today for similar complaints. Patient was able to have breakfast this morning. He ate some potatoes and sausage and has not been able to pass the food down his esophagus. CT reveals esophageal food impaction. Dr. Rader has been consulted for endoscopic evaluation tomorrow. Hospital Course: Severe GERD causing esophageal stricture with mechanical dysphagia and resultant esophageal meat bolus. Mr. Minaya underwent EGD with basket removal of esophageal meat bolus per Dr. Rader. He should continue his omeprazole and diet should mostly be liquids until follow-up with Dr. Rader for esophageal dilatation. Vital Signs/Physical Exam: Temp Pulse Resp BP Pulse Ox 98.1 F 80 20 114/66 94 09/17/24 16:00 09/17/24 16:00 09/17/24 16:00 09/17/24 16:00 09/17/24 16:00 General: Alert, In no apparent distress, Oriented x3, Obese HEENT: Atraumatic, Normocephalic Neck: Supple Respiratory: Clear to auscultation bilaterally, Normal air movement Cardiovascular: No edema, Regular rate/rhythm Capillary refill: <2 Seconds Gastrointestinal: Soft and benign, No guarding Musculoskeletal: No clubbing, No swelling Integumentary: No rashes Neurological: Normal speech, Normal tone, Normal affect Lymphatics: No axilla or inguinal lymphadenopathy External genitalia: Deferred Rectal: Deferred Laboratory Data at Discharge: WBC 7.60 thou/uL (4.3-10.9) 09/16/24 21:09 Hgb 16.7 g/dL (13.6-17.9) 09/16/24 21:09 Hct 50.4 % (39.6-49.0) H 09/16/24 21:09 Plt Count 159 thou/uL (152-406) 09/16/24 21:09 Sodium 137 mEq/L (136-145) 09/16/24 21:09 Potassium 4.1 mEq/L (3.5-5.1) 09/16/24 21:09 BUN 14 mg/dL (7-18) 09/16/24 21:09 Creatinine 1.21 mg/dL (0.70-1.30) 09/16/24 21:09 Glucose 110 mg/dL (74-106) H 09/16/24 21:09 Phosphorus 2.7 mg/dL (2.5-4.9) 09/17/24 05:57 Magnesium 2.1 mg/dL (1.6-2.4) 09/17/24 05:57 Total Bilirubin 1.0 mg/dL (0.2-1.0) 09/16/24 21:09 AST 23 U/L (15-37) 09/16/24 21:09 ALT 30 U/L (16-61) 09/16/24 21:09 Alkaline Phosphatase 56 U/L (45-117) 09/16/24 21:09 Home Medications: Insulin Glargine,Hum.rec.anlog [Lantus] 60 unit SQ BEDTIME 09/17/24 Omeprazole [Prilosec] 40 mg PO DAILY #60 cap 09/17/24 New Medications: Omeprazole [Prilosec] 40 mg PO DAILY #60 cap Physician Discharge Instructions: EGD with basket removal of esophageal meat bolus Brief History of Present Illness: Patient is a 54-year-old male with a past medical history of type 2 diabetes mellitus, GERD, and chronic pain. He returns to the hospital a day after a visit to the ER for food impaction. Patient at that time was able to pass down his food after 2 doses of glucagon. Patient was discharged on the same day. He now returns today for similar complaints. Patient was able to have breakfast this morning. He ate some potatoes and sausage and has not been able to pass the food down his esophagus. CT reveals esophageal food impaction. Dr. Rader has been consulted for endoscopic evaluation tomorrow. Hospital Course: Severe GERD causing esophageal stricture with mechanical dysphagia and resultant esophageal meat bolus. Mr. Minaya underwent EGD with basket removal of esophageal meat bolus per Dr. Rader. He should continue his omeprazole and diet should mostly be liquids until follow-up with Dr. Rader for esophageal dilatation. Diet: Liquids Activity: Ad rosana Followup: NONE,NONE [Primary Care Provider] - Jere Rader MD [ASSOCIATE-ACTIVE - CAN ADMIT] -
--- NOTE | 2024-09-17 18:37 | CON ---
Date of Consultation: 09/17/2024 Reason For Consultation: Dysphagia with esophageal meat impaction. History Of Present Illness: This patient is a 54-year-old white male with history of multiple esopha geal food impactions, approximately 40 by his estimate since 2005. He has reflux disease, diabetes. The patient presented to the hospital due to dysphagia after eating some potatoes and sausage and wa s unable to pass food or liquids since that time. He came to emergency room. Of course, glucagon wa s given initially. He went home yesterday, but then came back today stating that the food impaction came back, though he denies eating anything, but he may have eaten a piece of sausage again. It look s like he was given glucagon x2 again in the emergency room without relief. Now, he presents for urg ent EGD. Past Medical History: Significant for diabetes and looks like borderline hypertension here in the spital. 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 Alondra mejia, , Dr. Dobbins, Dr. Can. He also has a history reflux disease, migraine headaches , and appendectomy. Medications: Include [place], Levemir, insulin, , and Levaquin. Allergies: TO TYLENOL, , URACIL, SULFA, PENICILLIN, MUSHROOMS, CODEINE, AND COCONUT OIL. Social History: He is engaged. He has 4 children. No tobacco. Occasional alcohol. Family History: Father alive with diabetes. Mother alive with Alzheimer disease in her 70s. Review of Systems: The patient has dysphagia to solids and liquids, able to swallow and keep down saliva somewhat. He h as a history of reflux disease. He denies any hematemesis, coffee-grounds emesis, hematuria, dysuria , polydipsia, change in bowel habits, diarrhea, constipation, abdominal pain, fevers, chills, night s weats, chest pain, short of breath, seizure, syncope, muscle aches, joint aches, backaches, depressio n, or anxiety. Physical Examination: VITAL SIGNS: He is 6 feet 2 inches, 275 pounds. BMI 35.3 kg/sq m. Temperature 98.3 degrees Fahrenh eit, pulse 88, respirations 16, blood pressure 107/55, O2 saturation 98%. HEENT: Normocephalic, atraumatic. Anicteric. Pupils equal, round, and reactive to light. Extraocu lar movements are intact. Oropharynx clear. Neck: Supple. No masses. Respirations: Clear to auscultation bilaterally. Cardiac: Regular rate and rhythm. Gastrointestinal: Positive bowel sounds. Soft, nontender, nondistended. No hepatosplenomegaly. Extremities: No clubbing, cyanosis, or edema. 2+ pulses. Neuro: Alert and oriented x3. Grossly nonfocal. 5/5 motor. Sensation intact to light touch. Database: White count 7.6, hemoglobin 16.7, hematocrit 50.4, MCV of 81, platelet count 159, polys of 75%, lymphocytes 18%, monocytes 5%, eosinophils 2%. Sodium 137, potassium 4.1, chloride 104, bicarb 28, BUN of 14, creatinine 1.2, glucose 110, calcium 8.5. Total bilirubin 1.0, AST of 23, ALT 30, al kaline phosphatase 56, total protein 7.2, albumin 3.7. CT scan reveals a 2.5 cm food bolus in his distal esophagus versus mass versus other. Impression: 1.Dysphagia status post eating sausage and potatoes. 2.5 cm food bolus or mass noted in the distal esophagus, most likely food bolus with dysphagia to solids and liquids. Needs urgent EGD. 2.History of diabetes, borderline hypertension, esophageal meat impactions x40 since 2005 or almost 20 years, he estimates. 3.Gastroesophageal reflux disease, migraine headaches, and appendectomy. Recommendations: 1.Keep the patient n.p.o. 2.IV fluids. 3.Urgent EGD. ANGÉLICA/MODL Voice ID: [id number] Report ID: [id number]
== END 2024-09-17 19:00 | disposition home or self-care (01) ==
LOC: ER 19:22 → 4TH 23:03
PROVIDERS: ADMIT Internal Medicine; ATTEND Internal Medicine
PROC: 0DC38ZZ Extirpation of Matter from Lower Esophagus, Via Natural or Artificial Opening Endoscopic (ICD-10-PCS; principal; 2024-09-17 14:00)
DX: T18.128A Food in esophagus causing other injury, initial encounter (principal); R13.19 Other dysphagia; R07.9 Chest pain, unspecified; E11.9 Type 2 diabetes mellitus without complications; K21.9 Gastro-esophageal reflux disease without esophagitis; K44.9 Diaphragmatic hernia without obstruction or gangrene; K22.2 Esophageal obstruction; Z88.0 Allergy status to penicillin; Z88.2 Allergy status to sulfonamides; Z88.1 Allergy status to other antibiotic agents; Z88.5 Allergy status to narcotic agent
CPT/HCPCS: 85025; 36415 ×2; 83735; 84100; 82947 ×5; 80053; 71250; 74176; 96375; 96372; 96374; 99285; 43247; J1610 ×2; J2550; J2704; J2003; J2470 ×2; J3360; J2405; G0378 ×3; J7030 ×4

== ENCOUNTER 2025-04-28 13:01 | Emergency (ER) | payer OTHER ==
--- OUTSIDE RECORDS SUMMARY | 2025-04-28 13:06 | XMS REPORT | Continuity of Care Document ---
Author Name Unknown Address [address] [place] [address] [facility] Address [address] [place] [address] Care Team Providers Care Screen Printer Name Role Phone Pcp, Patient Does Not Have A Primary Care Physic alondra YADIEL HAQ Attending Clinician Unavailable YADIEL HAQ Attending Clinician Unavailable Yadiel Haq MD Attending Clinician [phone] VIRI GUZMÁN Attending Clinician Unavailable Adam Servin PA-C Attending Clinician [phone] ADAM SERVIN Attending Clinician Unavailable Doctor Unassigned, [place] Attending Clinician U navailable DAVID NOVOA Attending Clinician Unavailable ALEXIS DAWN Attending Clinician Unavailable Alexis Dawn MD Attending Clinician [phone] STEPHANIE ONEAL Attending Clinician Unavailable David MILLER Stephanie S Attending Clinician [phone] SILVINA SUN Attending Clinician Unavailable Norberto Bernal MD Attending Clinician [phone] NORBERTO BERNAL Attending Clinician Unavail able NORBERTO BERNAL Attending Clinician Unavail able Yazmin Ashby Attending Clinician [phone] Yazmin APPLE Attending Clinician Unavailable Hortensia Nicolas Attending Clinician [phone] Ervin Rhoades MD Attending Clinician [phone] Luis Arshad MD Attending Clinician [phone] LUIS ARSHAD Attending Clinician Unavailable STEPHANIE ONEAL Admitting Clinician Unavailable Luis Arshad MD Admitting Clinician [phone] LUIS ARSHAD Admitting Clinician Unavailable Payers Payer Name Policy Type Policy Number Effective Date Expirati on Date Source [employer] [id number] 2021 00:00:00 Problems Condition Name Condition Details Condition Category Status Onset Date Resolution Date Last Treatment Date Treating Clinician Comments Source Abdominal pain Abdominal pain Disease Active 11-04 00:00: 00 [facility] Obesity (BMI 30-39.9) Obesity (BMI 30-39.9) Disease Active 11-03 00:00: 00 [facility] Acute postoperat momo abdominal pain Acute postoperat momo abdominal pain Disease Active 11-03 00:00: 00 [facility] Morbid obesity with body mass index of 50 or higher Morbid obesity with body mass index of 50 or higher Disease Active 2015-09 00:00: 00 [facility] Morbid obesity with body mass index of 40.0-49.9 Morbid obesity with body mass index of 40.0-49.9 Disease Active 2015-09 00:00: 00 [facility] Allergies, Adverse Reactions, Alerts Allergy Name Allergy Type Status Severity Reaction(s) Onset Date Inactive Date Treating Clinician Comments Source METOCLOP RAMIDE DRUG INGREDI Active Other-Cmnt 2021-09 00:00: 00 [facility] Metoclop ramide Propensi ty to adverse reaction s Active Other - See comments 2021-09 00:00: 00 [facility] METFORMI N DRUG INGREDI Active Diarrhea 2021-09 00:00: 00 [facility] Metformi n Drug Allergy Active Diarrhea 2021-09 00:00: 00 [facility] SULFA (SULFONA MIDE ANTIBIOT ICS) Drug Class Active Hives 2018-0 1-21 00:00: 00 [facility] ACETAMIN OPHEN-CO DEINE DRUG Active Hives 2018-0 -21 00:00: 00 [facility] Sulfa (Sulfona mide Antibiot ics) Propensi ty to adverse reaction s Active Hives 2017-0 21 00:00: 00 [facility] Sulfa (Sulfona mide Antibiot ics) Propensi ty to adverse reaction s Active Hives 2017-0 - 00:00: 00 [facility] Acetamin ophen-Co deine Propensi ty to adverse reaction s Active Hives 2017-0 10-05 00:00: 00 [facility] Penicill ins Propensi ty to adverse reaction s Active Hives 2011-0 8-10 00:00: 00 [facility] Sulfa Dyne Propensi ty to adverse reaction s Active Hives 2011-0 8-10 00:00: 00 [facility] Penicill ins Propensi ty to adverse reaction s Active Hives 2011-0 8-10 00:00: 00 [facility] PENICILL INS Drug Class Active Hives 2011-0 8-10 00:00: 00 [facility] SULFA DYNE DRUG Active Hives 2011-0 8-10 00:00: 00 [facility] Social History Social Habit Start Date Stop Date Quantity Comments Source History of tobacco use Current smoker [facility] Gender identity [facility] Alcoholic beverage intake 2024-02-29 00:00:00 2024-02-29 00:00:00 Current drinker of alcohol (finding) [facility] Exposure to SARS-CoV-2 (event) 2022-07-02 00:00:00 2022-07-12 20:23:00 Not sure [facility] Alcohol intake 2022-07-12 00:00:00 2022-07-12 00:00:00 Current drinker of alcohol (finding) [facility] History of Social function 2020-04-06 00:00:00 2020-04-06 00:00:00 [facility] History SDOH Financial 2019-11-04 00:00:00 2019-11-04 00:00:00 5 [facility] Tobacco use and exposure 2019-11-03 00:00:00 2019-11-03 00:00:00 Smokeless tobacco non-user [facility] Sex assigned at 1970 00:00:00 1970 00:00:00 [facility] Smoking Status Start Date Stop Date Source Ex-smoker 2019-11-03 00:00:00 [facility] Medications Ordered Medication Name Filled Medication Name Start Date Stop Date Current Medication? Ordering Clinician Indication Dosage Frequency Signature (SIG) Comments Components Source ketorolac (TORADOL) injection 30 mg 06-06 19:30: 00 06-06 20:32 :00 No 30mg 30 mg, Slow IV Push, ONCE, 1 dose, On 06/06/24 at 1430, Routine [facility] fentanyl PF (SUBLIMAZE (PF)) injection 25 mcg 06-06 18:30: 00 06-06 20:33 :00 No 25ug 25 mcg, Slow IV Push, ONCE, 1 dose, On 06/06/24 at 1330, STAT [facility] ondansetron (ZOFRAN (PF)) injection 4 mg 06-06 18:30: 00 06-06 20:30 :00 No 4mg 4 mg, Slow IV Push, ONCE, 1 dose, On Fri06/06/24 at 1330, MANDEEP [facility] NaCl 0.9% (NS) bolus infusion 1,000 mL 06-06 18:30: 00 06-06 21:41 :00 No 1000mL at 999 mL/hr, 1,000 mL, IV Infusion, ONCE, 1 dose, On 06/06/24 at 1330, STAT [facility] NaCl 0.9% (NS) bolus infusion 1,000 mL 02-28 21:45: 00 02-28 22:22 :00 No 1000mL at 999 mL/hr, 1,000 mL, IV Infusion, ONCE, 1 dose, On Fri02/29/24 at 1645[facility] 15 mg 02-28 21:30: 00 02-28 21:25 :00 No 15mg 15 mg, Slow IV Push, ONCE, 1 dose, On Fri02/29/24 at 1630, [facility] ondansetron (ZOFRAN (PF)) injection 4 mg 02-28 21:30: 00 02-28 21:27 :00 No 4mg 4 mg, Slow IV Push, ONCE, 1 dose, On Fri02/29/24 at 1630, [facility] diphenhydrA MINE (BENADRYL) injection 25 mg 02-28 21:00: 00 02-28 21:28 :00 No 25mg 25 mg, Slow IV Push, ONCE, 1 dose, On Fri02/29/24 at 1600, STAT [facility] dicyclomine 10 mg capsule 02-28 00:00: 00 Yes [id number] 10mg Take 1 capsule by mouth 4 (four) times daily as needed for Abdominal pain. [facility] ketorolac (TORADOL) injection 30 mg 2021-09 03:15: 00 07-13 02:09 :00 No 30mg 30 mg, Slow IV Push, ONCE, 1 dose, On Fri07/12/22 at 2215, Routine [facility] FENTanyl PF (SUBLIMAZE (PF)) injection 50 mcg 2021-09 03:00: 00 07-13 02:09 :00 No 50ug 50 mcg, Intravenou s, ONCE, 1 dose, On Fri07/12/22 at 2200, Routine [facility] NaCl 0.9% (NS) bolus infusion 1,000 mL 2021-09 02:15: 00 07-13 02:40 :00 No 1000mL at 999 mL/hr, 1,000 mL, IV Infusion, ONCE, 1 dose, On Fri07/12/22 at 2115, STAT [facility] ketorolac (TORADOL) injection 30 mg 2021-09 03:30: 00 07-07 02:44 :00 No 30mg 30 mg, Slow IV Push, ONCE, 1 dose, On 07/06/22 at 2230, Routine [facility] NaCl 0.9% (NS) bolus infusion 500 mL 2021-09 02:30: 00 07-07 03:17 :00 No 500mL at 999 mL/hr, 500 mL, IV Infusion, ONCE, 1 dose, On 07/06/22 at 2130, STAT [facility] metoclopram kevin HCl (REGLAN) injection 10 mg 2021-09 02:30: 00 07-07 02:45 :00 No 10mg 10 mg, Slow IV Push, ONCE, 1 dose, On 07/06/22 at 2130, MANDEEP [facility] diphenhydrA MINE (BENADRYL) injection 25 mg 2021-09 02:30: 00 07-07 02:43 :00 No 25mg 25 mg, Slow IV Push, ONCE, 1 dose, On 07/06/22 at 2130, STAT [facility] butorphanol (STADOL) injection 2 mg 2021-09 02:30: 00 07-07 02:20 :00 No 2mg 2 mg, Intramuscu lar, ONCE, 1 dose, On 07/06/22 at 2130, Routine [facility] insulin detemir (LEVEMIR U-100 INSULIN SC) 2021-09 19:49: 26 Yes 30U inject 30 Units under the skin 2 (two) times daily. [facility] NaCl 0.9% (NS) bolus infusion 1,000 mL 2021-09 18:15: 00 06-21 18:52 :00 No 1000mL at 999 mL/hr, 1,000 mL, IV Infusion, ONCE, 1 dose, On Fri06/21/22 at 1315, STAT [facility] ondansetron (ZOFRAN (PF)) injection 4 mg 2021-09 17:15: 00 06-21 17:19 :00 No 4mg 4 mg, Slow IV Push, ONCE, 1 dose, On Fri06/21/22 at 1215, [facility] ketorolac (TORADOL) injection 30 mg 2021-09 0 17:15: 00 06-21 17:20 :00 No 30mg 30 mg, Intramuscu lar, ONCE, 1 dose, On Fri06/21/22 at 1215, [facility] divalproex ER 250 mg 24 hr tablet 04-24 00:00: 00 Yes [id number] 250mg Take 1 tablet by mouth 2 (two) times daily. [facility] water for irrigation irrigation solution 04-07 03:19: 00 Yes PRN, Starting Angelina 04/06/20 at 2219, Until Discontinu ed, Routine, Intra-op [facility] simethicone (GAS RELIEF (SIMETHICON E)) 40 mg/0.6 mL drops 04-07 03:19: 00 Yes PRN, Starting Angelina 04/06/20 at 2219, Until Discontinu ed, Routine, Intra-op [facility] glucagon (GLUCAGEN DIAGNOSTIC KIT) injection 1 mg 04-07 02:45: 00 04-07 01:56 :00 No 1mg 1 mg, Intravenou s, ONCE, 1 dose, Angelina 04/06/20 at 2145, Routine [facility] glucagon (GLUCAGEN DIAGNOSTIC KIT) injection 1 mg 04-07 01:45: 00 04-07 00:47 :00 No 1mg 1 mg, Intravenou s, ONCE, 1 dose, Angelina 04/06/20 at 2045, Routine [facility] HYDROcodone -acetaminop hen (NORCO 5) 5-325 mg tablet 1 tablet 02-19 01:15: 00 02-19 00:11 :00 No 1{tbl} 1 tablet, Oral, ONCE, 1 dose, 02/19/20 at 2015, [facility] NaCl 0.9% (NS) bolus infusion 1,000 mL 02-18:00: 00 02-18 23:28 :00 No 1000mL at 999 mL/hr, 1,000 mL, IV Infusion, ONCE, 1 dose, 02/19/20 at 1800, [facility] morpHINE injection 4 mg 02-18 23:00: 00 02-18 22:01 :00 No 4mg 4 mg, Slow IV Push, ONCE, 1 dose, 02/19/20 at 1800, STAT [facility] insulin regular human (HUMULIN R) injection 10 Units 02-18 22:45: 00 02-18 21:54 :00 No 10U 10 Units, Subcutaneo us, ONCE, 1 dose, 02/19/20 at 1745, [facility] NaCl 0.9% (NS) bolus infusion 1,000 mL 02-18 21:45: 00 02-18 23:27 :00 No 1000mL at 999 mL/hr, 1,000 mL, IV Infusion, ONCE, 1 dose, 02/19/20 at 1645, STAT [facility] ondansetron (ZOFRAN (PF)) injection 4 mg 02-18 21:45: 00 02-18 20:51 :00 No 4mg 4 mg, Slow IV Push, ONCE, 1 dose, 02/19/20 at 1645, MANDEEP [facility] FENTanyl PF (SUBLIMAZE (PF)) injection 25 mcg 02-18 21:45: 00 02-18 20:50 :00 No 25ug 25 mcg, Slow IV Push, ONCE, 1 dose, 02/19/20 at 1645, STAT [facility] clindamycin in 5 % dextrose (CLEOCIN) 900 mg/50 mL IV piggyback RTU 900 mg 02-18 21:45: 00 02-18 21:21 :00 No 900mg 900 mg, IV Piggyback, ONCE, 1 dose, 02/19/20 at 1645, 50 mL
Reas on for Anti-Infec tive: Documented Infection< br>Documen yelena Infection Site: Skin / Soft Tissue
Duration of Therapy: Other (see Comments)< br>Restric yelena use approved by: ADC PROVIDER [facility] acetaminoph en (TYLENOL) tablet 1,000 mg 02-18 21:30: 00 02-18 20:30 :00 No 1000mg 1,000 mg, Oral, ONCE, 1 dose, 02/19/20 at 1630, MANDEEP [facility] traMADol 50 mg tablet 02-18 00:00: 00 Yes [id number] 50mg Take 1 tablet by mouth every 6 (six) hours as needed for Pain (scale 4-6). [facility] clindamycin 150 mg capsule 02-18 00:00: 03-01 04:59 :00 No [id number] 450mg Take 3 capsules by mouth 3 (three) times daily for 10 days. [facility] glipiZIDE 10 mg tablet 11-06 00:00: 00 Yes [id number] 10mg Take 1 tablet by mouth 2 (two) times daily before breakfast and dinner. [facility] HYDROcodone -acetaminop hen 5-325 mg tablet 11-06 00:00: 00 Yes [id number] 1{tbl} Take 1 tablet by mouth every 6 (six) hours as needed for Pain (scale 7-10). [facility] ciprofloxac in HCl 500 mg tablet 11-06 00:00: 11-13 05:59 :00 No [id number] 500mg Take 1 tablet by mouth every 12 (twelve) hours for 7 days. [facility] metroNIDAZO LE 500 mg tablet 11-06 00:00: 11-13 05:59 :00 No [id number] 500mg Take 1 tablet by mouth 2 (two) times daily for 7 days. [facility] HYDROmorpho ne (DILAUDID) injection 1 mg 11-05 15:33: 28 Yes 1mg 1 mg, Slow IV Push, Q6HPRN, Starting Fri11/05/19 at 0933, Until Discontinu ed, Routine, Pain (scale 7-10)
U se approved by (Faculty): ADC PROVIDER [facility] HYDROmorphO ne (DILAUDID) injection 1 mg 11-04 17:03: 17 11-05 15:33 :39 No 1mg 1 mg, Slow IV Push, Q3HPRN, Starting Fri11/04/19 at 1103, Until Fri11/05/19 at 0933, MANDEEP, Pain (scale 7-10)
U se approved by (Faculty): ADC PROVIDER [facility] sennosides (SENOKOT) tablet 8.6 mg 11-04 15:00: 00 Yes 8.6mg 8.6 mg, Oral, DAILY, First dose on Fri11/04/19 at 0900, Until Discontinu ed, Routine [facility] ciprofloxac in in 5 % dextrose (CIPRO) piggyback 400 mg 11-04 07:00: 00 11-04 20:00 :00 No 400mg 400 mg, IV Piggyback, Administer over 60 Minutes, Q12H ABX, 2 doses, First dose on Fri11/04/19 at 0100, Last dose on Fri11/04/19 at 1300, MANDEEP
Re ason for Anti-Infec tive: Documented Infection& lt;br>Docu mented Infection Site: Abdominal< br>Duratio n of Therapy: Other (see Comments) [facility] Sliding Scale Insulin - Aspart (NOVOLOG) + Fsbg Testing 11-04 03:00: 00 Yes Subcutaneo us, TID MEALS+HS, First dose on Fri11/03/19 at 2100, Until Discontinu ed, Routine [facility] docusate (COLACE) capsule 100 mg 11-04 02:00: 00 Yes 100mg 100 mg, Oral, Q12H, First dose on Fri11/03/19 at 2000, Until Discontinu ed, Routine [facility] insulin detemir U-100 (LEVEMIR U-100 INSULIN) injection 30 Units 11-04 01:30: 00 11-04 14:24 :53 No 30U 30 Units, Subcutaneo us, DAILY, First dose on Fri11/03/19 at 1930, Until Discontinu ed, Routine [facility] glipiZIDE (GLUCOTROL) tablet 10 mg 11-04 00:45: 00 Yes 10mg 10 mg, Oral, BIDAC, First dose on Fri11/03/19 at 1845, Until Discontinu ed, Routine [facility] metroNIDAZO LE (FLAGYL I.V.) Piggyback 500 mg 11-03 23:15: 00 11-05 16:06 :00 No 500mg 500 mg, IV Piggyback, Q8H ABX, 6 doses, First dose on Fri11/03/19 at 1715, Last dose on Fri11/05/19 at 0915, 100 mL
Reas on for Anti-Infec tive: Documented Infection< br>Documen yelena Infection Site: Abdominal< br>Duratio n of Therapy: 7 days [facility] HYDROcodone -acetaminop hen (NORCO 5) 5-325 mg tablet 1 tablet 11-03 21:44: 00 Yes 1{tbl} 1 tablet, Oral, Q4HPRN, Starting Fri11/03/19 at 1544, Until Discontinu ed, Routine, Pain (scale 4-6) [facility] morpHINE injection 4 mg 11-03 21:43: 39 11-04 17:06 :17 No 4mg 4 mg, Slow IV Push, Q2HPRN, Starting Fri11/03/19 at 1543, Until Angelina 11/04/19 at 1106, Routine, Pain (scale 7-10) [facility] ondansetron (ZOFRAN (PF)) injection 4 mg 11-03 21:40: 10 Yes 4mg 4 mg, Slow IV Push, Q6HPRN, Starting Fri11/03/19 at 1540, Until Discontinu ed, Routine, Nausea and Vomiting (N/V) [facility] metroNIDAZO LE (FLAGYL I.V.) Piggyback 500 mg 11-03 19:30: 00 11-03 19:55 :00 No 500mg 500 mg, IV Piggyback, ONCE, 1 dose, 11/03/19 at 1330, 100 mL
Reas on for Anti-Infec tive: Documented Infection< br>Documen yelena Infection Site: Abdominal< br>Duratio n of Therapy: Other (see Comments) [facility] ciprofloxac in in 5 % dextrose (CIPRO) piggyback 400 mg 11-03 19:30: 00 11-03 19:43 :00 No 400mg 400 mg, IV Piggyback, Administer over 60 Minutes, ONCE, 1 dose, 11/03/19 at 1330, MANDEEP
Re ason for Anti-Infec tive: Documented Infection< br>Documen yelena Infection Site: Abdominal< br>Duratio n of Therapy: Other (see Comments) [facility] D5W 0.45% NaCl (1/2NS) IV infusion 1,000 mL 11-03 19:15: 00 11-04 01:21 :07 No 1000mL at 125 mL/hr, 1,000 mL, IV Infusion, CONTINUOUS , Starting Fri11/03/19 at 1315, Until Fri11/03/19 at 1921, MANDEEP [facility] FENTanyl PF (SUBLIMAZE (PF)) injection 125 mcg 11-03 18:15: 00 11-03 17:26 :00 No 125ug 125 mcg, Slow IV Push, ONCE, 1 dose, 11/03/19 at 1215, Routine [facility] iohexol (OMNIPAQUE 350 BULK-150 mL) injection 120 mL 11-03 17:32: 00 11-03 17:32 :00 No 120mL 120 mL, Intravenou s, ONCE, 1 dose, Fri11/03/19 at 1145, Routine [facility] NaCl 0.9% (NS) bolus infusion 1,000 mL 11-03 17:00: 00 11-03 18:28 :00 No 1000mL at 999 mL/hr, 1,000 mL, IV Infusion, ONCE, 1 dose, Fri11/03/19 at 1100, STAT [facility] FENTanyl PF (SUBLIMAZE (PF)) injection 100 mcg 11-03 17:00: 00 11-03 16:06 :00 No 100ug 100 mcg, Slow IV Push, ONCE, 1 dose, Fri11/03/19 at 1100, Routine [facility] ondansetron (ZOFRAN (PF)) injection 4 mg 11-03 17:00: 00 11-03 16:06 :00 No 4mg 4 mg, Slow IV Push, ONCE, 1 dose, Fri11/03/19 at 1100, MANDEEP [facility] cyclobenzap rine 5 mg tablet 2018-09 006 00:00: 00 11-06 00:00 :00 No [id number] 9100 5mg Take 1 tablet by mouth 3 (three) times daily. [facility] traMADol (ULTRAM) 50 mg tablet 2018-09 00:00: 00 11-06 00:00 :00 No [id number] 9100 50mg Take 1 tablet by mouth every 8 (eight) hours as needed for Pain (scale 4-6). [facility] benzonatate 100 mg capsule 10-05 00:00: 00 11-06 00:00 :00 No 100mg Take 1 capsule by mouth 3 (three) times daily as needed for Cough. DO NOT CHEW! [facility] ondansetron (ZOFRAN ODT) 4 mg disintegrat ing tablet 10-05 00:00: 11-06 00:00 :00 No 4mg Take 1 tablet by mouth every 8 (eight) hours as needed for Nausea and Vomiting (N/V). [facility] sod chlor-bicar b-squeez bottle (NEILMED SINUS RINSE COMPLETE) pkdv 10-05 00:00: 00 11-06 00:00 :00 No 1{bottl e} Use 1 Bottle in each nostril 2 (two) times daily. Use in hot shower 1 hour before bedtime [facility] Vital Signs Vital Name Observation Time Observation Value Comments S ource Heart rate 2024-06-06 21:44:00 89 /min [facility] Oxygen saturation in Arterial blood by Pulse oximetry 2024-06-06 21:44:00 95 /min [facility] Systolic blood pressure 2024-06-06 21:30:00 125 mm[Hg] [facility] Diastolic blood pressure 2024-06-06 21:30:00 77 mm[Hg] [facility] Respiratory rate 2024-06-06 21:30:00 16 /min [facility] Body temperature 2024-06-06 17:52:00 37.22 Leonor [facility] Body height 2024-06-06 17:52:00 188 cm [facility] Body weight 2024-06-06 17:52:00 124.739 kg [facility] BMI 2024-06-06 17:52:00 35.31 kg/m2 [facility] Heart rate 2024-02-29 22:22:00 88 /min [facility] Body temperature 2024-02-29 22:22:00 37.11 Leonor [facility] Oxygen saturation in Arterial blood by Pulse oximetry 2024-02-29 22:22:00 95 /min [facility] Systolic blood pressure 2024-02-29 22:00:00 114 mm[Hg] [facility] Diastolic blood pressure 2024-02-29 22:00:00 76 mm[Hg] [facility] Respiratory rate 2024-02-29 22:00:00 16 /min [facility] Body height 2024-02-29 19:45:00 188 cm [facility] Body weight 2024-02-29 19:45:00 122.471 kg [facility] BMI 2024-02-29 19:45:00 34.67 kg/m2 [facility] Systolic blood pressure 2022-07-13 02:00:00 165 mm[Hg] [facility] Diastolic blood pressure 2022-07-13 02:00:00 96 mm[Hg] [facility] Heart rate 2022-07-13 02:00:00 88 /min [facility] Respiratory rate 2022-07-13 02:00:00 18 /min [facility] Oxygen saturation in Arterial blood by Pulse oximetry 2022-07-13 02:00:00 98 /min [facility] Body temperature 2022-07-13 01:48:00 37 Leonor [facility] Body height 2022-07-13 01:25:00 188 cm [facility] Body weight 2022-07-13 01:25:00 129.275 kg [facility] BMI 2022-07-13 01:25:00 36.59 kg/m2 [facility] Systolic blood pressure 2022-07-07 02:21:33 135 mm[Hg] [facility] Diastolic blood pressure 2022-07-07 02:21:33 81 mm[Hg] [facility] Heart rate 2022-07-07 02:21:33 93 /min [facility] Respiratory rate 2022-07-07 02:21:33 18 /min [facility] Oxygen saturation in Arterial blood by Pulse oximetry 2022-07-07 02:21:33 96 /min [facility] Body temperature 2022-07-07 00:44:00 37 Leonor [facility] Body height 2022-07-07 00:44:00 188 cm [facility] Body weight 2022-07-07 00:44:00 129.275 kg [facility] BMI 2022-07-07 00:44:00 36.59 kg/m2 [facility] Systolic blood pressure 2022-06-21 18:46:00 128 mm[Hg] [facility] Diastolic blood pressure 2022-06-21 18:46:00 86 mm[Hg] [facility] Heart rate 2022-06-21 18:46:00 81 /min [facility] Respiratory rate 2022-06-21 18:46:00 16 /min [facility] Oxygen saturation in Arterial blood by Pulse oximetry 2022-06-21 18:46:00 99 /min [facility] Body temperature 2022-06-21 16:02:00 37.06 Leonor [facility] Body height 2022-06-21 16:02:00 188 cm [facility] Body weight 2022-06-21 16:02:00 127.007 kg [facility] BMI 2022-06-21 16:02:00 35.95 kg/m2 [facility] Systolic blood pressure 2020-04-24 13:23:00 129 mm[Hg] [facility] Diastolic blood pressure 2020-04-24 13:23:00 81 mm[Hg] [facility] Heart rate 2020-04-24 13:23:00 82 /min [facility] Body weight 2020-04-24 13:23:00 138.075 kg [facility] BMI 2020-04-24 13:23:00 39.08 kg/m2 [facility] Systolic blood pressure 2020-04-24 13:23:00 129 mm[Hg] [facility] Diastolic blood pressure 2020-04-24 13:23:00 81 mm[Hg] [facility] Heart rate 2020-04-24 13:23:00 82 /min [facility] Body weight 2020-04-24 13:23:00 138.075 kg [facility] BMI 2020-04-24 13:23:00 39.08 kg/m2 [facility] Systolic blood pressure 2020-04-07 03:51:00 118 mm[Hg] [facility] Diastolic blood pressure 2020-04-07 03:51:00 68 mm[Hg] [facility] Heart rate 2020-04-07 03:51:00 92 /min [facility] Respiratory rate 2020-04-07 03:51:00 16 /min [facility] Oxygen saturation in Arterial blood by Pulse oximetry 2020-04-07 03:51:00 100 /min [facility] Body temperature 2020-04-07 03:40:00 36.44 Leonor [facility] Body weight 2020-04-07 00:07:00 129.275 kg [facility] BMI 2020-04-07 00:07:00 36.59 kg/m2 [facility] Heart rate 2020-02-19 23:10:00 105 /min [facility] Respiratory rate 2020-02-19 23:10:00 29 /min [facility] Oxygen saturation in Arterial blood by Pulse oximetry 2020-02-19 23:10:00 94 /min [facility] Systolic blood pressure 2020-02-19 23:00:00 127 mm[Hg] [facility] Diastolic blood pressure 2020-02-19 23:00:00 78 mm[Hg] [facility] Body temperature 2020-02-19 22:04:10 37.33 Leonor [facility] Body height 2020-02-19 19:56:00 188 cm [facility] Body weight 2020-02-19 19:56:00 129.275 kg [facility] BMI 2020-02-19 19:56:00 36.59 kg/m2 [facility] Systolic blood pressure 2019-11-06 17:14:00 138 mm[Hg] [facility] Diastolic blood pressure 2019-11-06 17:14:00 88 mm[Hg] [facility] Heart rate 2019-11-06 17:14:00 102 /min [facility] Respiratory rate 2019-11-06 17:14:00 18 /min [facility] Oxygen saturation in Arterial blood by Pulse oximetry 2019-11-06 17:14:00 96 /min [facility] Body temperature 2019-11-06 14:00:00 36.72 Leonor [facility] Body height 2019-11-03 23:00:00 188 cm [facility] Body weight 2019-11-03 15:22:00 129.275 kg [facility] BMI 2019-11-03 15:22:00 36.58 kg/m2 [facility] Procedures Procedure Date / Time Performed Performing Clinician Source XR KNEE 3 VW RIGHT 2023-04-04 15:33:38 Adam Servin [facility] XR CERVICAL SPINE 2 VW 2023-04-04 15:33:20 Adam Servin [facility] CONSENT/REFUSAL FOR DIAGNOSIS AND TREATMENT 2023-04-04 15:01:50 Doctor Unassigned, [place] [facility] CONSENT/REFUSAL FOR DIAGNOSIS AND TREATMENT 2022-07-13 01:17:58 Doctor Unassigned, [place] [facility] CONSENT/REFUSAL FOR DIAGNOSIS AND TREATMENT 2022-07-07 00:35:11 Doctor Unassigned, [place] [facility] CT HEAD WO CONTRAST 2022-06-21 17:34:58 Stephanie Oneal [facility] XR CHEST 1 VW 2022-06-21 16:37:11 [facility] TROPONIN I 2022-06-21 16:28:00 Stephanie Oneal [facility] BASIC METABOLIC PANEL (NA, K, CL, CO2, GLUCOSE, BUN, CREATININE, CA) 2022-06-21 16:28:00 Stephanie Oneal [facility] CBC WITH DIFF 2022-06-21 16:28:00 [facility] NOTICE OF PRIVACY PRACTICES 2022-06-21 15:51:50 Doctor Unassigned, [place] [facility] CONSENT/REFUSAL FOR DIAGNOSIS AND TREATMENT 2022-06-21 15:51:34 Doctor Unassigned, [place] [facility] EGD (ENDO) 2020-04-07 02:31:21 Lisa Armendariz [facility] COMP. METABOLIC PANEL ([id number]) 2020-04-07 01:52:00 Yazmin Apple [facility] CBC WITH DIFF 2020-04-07 01:52:00 Yazmin Apple [facility] XR NECK SOFT TISSUE 2020-04-07 00:57:29 Yazmin Apple [facility] COVID-19 (ID NOW RAPID TESTING) 2020-04-07 00:40:00 Yazmin Apple [facility] NOTICE OF PRIVACY PRACTICES 2020-04-06 23:57:19 Doctor Unassigned, [place] [facility] CONSENT/REFUSAL FOR DIAGNOSIS AND TREATMENT 2020-04-06 23:57:05 Doctor Unassigned, [place] [facility] REFERRAL- REQUEST/RESPONSE 2020-03-29 05:01:00 Doctor Unassigned, [place] [facility] POCT GLUCOSE (AUTOMATED) 2020-02-19 23:05:00 Stephanie Oneal [facility] POCT GLUCOSE (AUTOMATED) 2020-02-19 21:52:00 Stephanie Oneal [facility] COMP. METABOLIC PANEL ([id number]) 2020-02-19 20:47:00 Stephanie Oneal [facility] CBC WITH DIFFERENTIAL 2020-02-19 20:47:00 Stephanie Oneal [facility] COVID-19 (ID NOW RAPID TESTING) 2020-02-19 20:47:00 Stephanie Oneal [facility] NOTICE OF PRIVACY PRACTICES 2020-02-19 19:53:34 Doctor Unassigned, [place] [facility] CONSENT/REFUSAL FOR DIAGNOSIS AND TREATMENT 2020-02-19 19:53:23 Doctor Unassigned, [place] [facility] POCT GLUCOSE (AUTOMATED) 2019-11-06 13:36:00 Luis Arshad [facility] POCT GLUCOSE (AUTOMATED) 2019-11-06 01:48:00 Luis Arshad [facility] POCT GLUCOSE (AUTOMATED) 2019-11-05 22:16:00 Luis Arshad [facility] POCT GLUCOSE (AUTOMATED) 2019-11-05 17:26:00 Luis Arshad [facility] POCT GLUCOSE (AUTOMATED) 2019-11-05 13:21:00 Luis Arshad [facility] BASIC METABOLIC PANEL (NA, K, CL, CO2, GLUCOSE, BUN, CREATININE, CA) 2019-11-05 10:28:00 Ritika Milan [facility] CBC WITH DIFFERENTIAL 2019-11-05 10:28:00 Denise Milan [facility] POCT GLUCOSE (AUTOMATED) 2019-11-05 10:12:00 Luis Arshad [facility] POCT GLUCOSE (AUTOMATED) 2019-11-05 06:12:00 Luis Arshad [facility] POCT GLUCOSE (AUTOMATED) 2019-11-05 01:41:00 Luis Arshad [facility] POCT GLUCOSE (AUTOMATED) 2019-11-04 22:26:00 Luis Arshad [facility] POCT GLUCOSE (AUTOMATED) 2019-11-04 17:20:00 Lusi Arshad [facility] POCT GLUCOSE (AUTOMATED) 2019-11-04 13:21:00 Luis Arshad [facility] POCT GLUCOSE (AUTOMATED) 2019-11-04 11:57:00 Luis Arshad [facility] POCT GLUCOSE (AUTOMATED) 2019-11-04 05:30:00 Luis Arshad [facility] POCT GLUCOSE (AUTOMATED) 2019-11-04 02:17:00 Luis Arshad [facility] POCT GLUCOSE (AUTOMATED) 2019-11-03 23:23:00 Luis Arshad [facility] POCT GLUCOSE (AUTOMATED) 2019-11-03 21:41:00 Luis Arshad [facility] SURGICAL PATHOLOGY EXAM 2019-11-03 20:26:00 Sandeep Lund [facility] LAPAROSCOPIC APPENDECTOMY 2019-11-03 19:24:00 Yonatan Lund [facility] CT ABDOMEN PELVIS W CONTRAST 2019-11-03 17:41:22 Ervin Rhoades [facility] LIPASE 2019-11-03 15:35:00 Ervin Rhoades [facility] COMP. METABOLIC PANEL ([id number]) 2019-11-03 15:35:00 Ervin Rhoades [facility] CBC WITH DIFFERENTIAL 2019-11-03 15:35:00 Jimmy Rhoades [facility] GLYCOSYLATED HEMOGLOBIN (A1C) 2019-11-03 15:35:00 Stephanie Pichardo [facility] URINALYSIS 2019-11-03 15:35:00 Ervin Rhoades [facility] Encounters Start Date/Time End Date/Time Encounter Type Admission Type Attending [facility] Care Facility Care Department Encounter ID Source 2024-06-06 12:53:00 2024-06-06 16:47:00 Emergency X YADIEL HAQ [facility]UL[facility] E[facility] [id number] [facility] 2024-06-06 12:53:00 2024-06-06 16:47:00 Emergency Yadiel Haq AT [facility] 1.2.840.114 350.1.13.10 4.2.7.2.686 [id number] [facility] 2024-02-29 14:46:00 2024-02-29 17:26:00 Emergency X VIRI GUZMÁN [facility] ERT [id number] [facility] 2024-02-29 14:46:00 2024-02-29 17:26:00 Emergency Viri Guzmán [facility] 1.2.840.114 350.1.13.10 4.2.7.2.686 [id number] [facility] 2023-04-04 10:08:04 2023-04-04 23:59:00 Hospital Encounter [facility] 1.2.840.114 350.1.13.10 4.2.7.2.686 [id number] [facility] 2023-04-04 10:03:37 2023-04-04 10:07:00 Outpatient R [facility] [id number] [facility] 2023-04-04 10:00:00 2023-04-04 10:07:00 Hospital Encounter [facility] 1.2.840.114 350.1.13.10 4.2.7.2.686 [id number] [facility] 2023-04-04 00:00:00 2023-04-04 00:00:00 Orders Only Doctor Unassigned, [place] [facility] 1.2.840.114 350.1.13.10 4.2.7.2.686 [id number] [facility] 2022-07-12 20:32:00 2022-07-12 22:17:00 Emergency X YADIEL HAQ [facility] ERT [id number] [facility] 2022-07-12 20:32:00 2022-07-12 22:17:00 Emergency Yadiel Haq [facility] 1.2.840.114 350.1.13.10 4.2.7.2.686 [id number] [facility] 2022-07-12 08:40:00 2022-07-12 08:40:00 Outpatient DAVID YOUSIF [place] [id number] [facility] 2022-07-06 19:49:00 2022-07-06 23:18:00 Emergency X ALEXIS DAWN [facility] ERT [id number] [facility] 2022-07-06 19:49:00 2022-07-06 23:18:00 Emergency Alexis Dawn [facility] 1.840.114 350.1.13.10 4.2.7.2.686 [id number] [facility] 2022-06-21 11:04:00 2022-06-21 13:54:00 Emergency X STEPHANIE ONEAL [facility] ERT [id number] [facility] 2022-06-21 11:04:00 2022-06-21 13:54:00 Emergency Stephanie Oneal [facility] 1..840.114 350.1.13.10 4.2.7.2.686 [id number] [facility] 2022-06-21 00:00:00 2022-06-21 00:00:00 Orders Only Doctor Unassigned, [place] [facility] 1.2.840.114 350.1.13.10 4.2.7.2.686 [id number] [id number] [facility] 2020-08-15 10:00:00 2020-08-15 10:00:00 Outpatient SILVINA ISBELL [place] [id number] [facility] 2020-04-24 08:15:37 2020-04-24 08:49:56 Office Visit Norberto Bernal [facility] 1.2840.114 350.1.13.10 4.2.7.2.686 [id number] 2020-04-24 08:15:37 2020-04-24 08:49:56 Office Visit Dolores Norberto Kothari [facility] on [facility] 1.2840.114 350.1.13.10 4.2.7.2.686 [id number] [facility] 2020-04-24 08:00:00 2020-04-24 08:00:00 Outpatient R NORBERTO BERNAL HOWARD [place] [id number] [facility] 2020-04-06 19:12:13 2020-04-06 22:55:00 Emergency Yazmin Apple [facility] 1.2840.114 350.1.13.10 4.2.7.2.686 [id number] [facility] 2020-04-06 19:12:13 2020-04-06 19:12:13 Emergency X Yazmin APPLE [facility] ERT [id number] [facility] 2020-04-06 00:00:00 2020-04-06 00:00:00 Orders Only Doctor Unassigned, [place] [facility] 1.2840.114 350.1.13.10 4.2.7.2.686 [id number] [facility] 2020-03-29 00:00:00 2020-03-29 00:00:00 Orders Only Doctor Unassigned, [place] [facility] 1.2840.114 350.1.13.10 4.2.7.2.686 [id number] [facility] 2020-02-19 15:07:18 2020-02-19 19:22:00 Emergency Stephanie Oneal [facility] 1.2840.114 350.1.13.10 4.2.7.2.686 [id number] [facility] 2020-02-19 14:53:00 2020-02-19 14:53:00 Emergency X [facility] ERT [id number] [facility] 2020-02-19 00:00:00 2020-02-19 00:00:00 Orders Only Doctor Unassigned, [place] [facility] 1.2.840.114 350.1.13.10 4.2.7.2.686 [id number] [id number] [facility] 2019-11-08 00:00:00 2019-11-08 00:00:00 Transition of Care Hortensia Nicolas 1.2.840.114 350.1.13.10 4.2.7.2.686 [id number] [facility] 2019-11-03 09:25:15 2019-11-06 12:00:00 Hospital Encounter Ervin Rhoades Yaman [facility] 1.2.840.114 350.1.13.10 4.2.7.2.686 [id number] [facility] 2019-11-03 09:25:15 2019-11-06 12:00:00 Inpatient X LUIS ARSHAD [facility] [id number] [facility] Results Test Description Test Time Test Comments Results Result Co mments Source [facility] (NA, K, CL, CO2, GLUCOSE, BUN, CREATININE, CA)2022-06-21 16:50:52* Test Item Value Reference Range Interpretation Comme nts NA (test code = 5032864233) 137 mmol/L 135-145 K (test code = 2514674473) 4.6 mmol/L 3.5-5 CL (test code = 9312063448) 97 mmol/L 98-108 L CO2 TOTAL (test code = 7386264828) 30 mmol/L 23-31 AGAP (test code = 3800382715) 2-16 BUN (test code = 7455611545) 11 mg/dL 7-23 GLUCOSE (test code = 0391647579) 214 mg/dL 70-110 H CREATININE (test code = 2628682278) 1.16 mg/dL 0.6-1.25 CALCIUM (test code = 3942357679) 8.5 mg/dL 8.6-10.6 L eGFR (test code = 3779338945) mL/min/1.73m2 KATE (test code = KATE) Association [...] imaging tests). Lab Interpretation (test code = 65606-4) [facility] [id number] 16:39:51* Test Item Value Reference Range Interpretation Comme nts WBC (test code = 6690-2) See_Comment [Automated [employer]] The system which generated this result transmitted reference range: 4.20 - 10.70 10*3/?L. The reference range was not used to interpret this result as normal/abnormal. RBC (test code = 789-8) See_Comment H [Automated [employer]] The system which generated this result transmitted [...] 33.6 g/dL 31.2-35 RDW-SD (test code = 53328-7) 37.0 fL 38.5-51.6 L RDW-CV (test code = 788-0) 13.2 % 12.1-15.4 PLT (test code = 777-3) See_Comment [Automated messa ge] The system which generated this result transmitted reference range: 150 - 328 10*3/?L. The reference range was not used to interpret this result as normal/abnormal. MPV (test code = 42571-2) 11.1 fL 9.8-13 NRBC/100 WBC (test code = 0836998078) See_Comment [Automated [employer] ssage] The system which generated this result transmitted reference range: 0.0 - 10.0 /100 WBCs. The reference range was not used to interpret this result as normal/abnormal. NRBC x10^3 (test code = 5391845534) See_Comment [Automated messa ge] The system which generated this result transmitted reference range: 10*3/?L. The reference range was not used to interpret this result as normal/abnormal. GRAN MAT (NEUT) % (test code = 770-8) 67.3 % IMM GRAN % (test code = 4843040973) 0.20 % LYMPH % (test code = 736-9) 23.5 % MONO % (test code = 5905-5) 5.7 % EOS % (test code = 713-8) 2.6 % BASO % (test code = 706-2) 0.7 % GRAN MAT x10^3(ANC) (test code = 4495952100) 3.93 10*3/uL 1.99-6.95 IMM GRAN x10^3 (test code = 1820397079) 0-0.06 LYMPH x10^3 (test code = 731-0) 1.37 10*3/uL 1.09-3.23 MONO x10^3 (test code = 742-7) 0.33 10*3/uL 0.36-1.02 L EOS x10^3 (test code = 711-2) 0.15 10*3/uL 0.06-0.53 BASO x10^3 (test code = 704-7) 0.04 10*3/uL 0.01-0.09 Lab Interpretation (test code = 21890-7) [facility] (37956[facility]2020-04-07 03:03:00* Test Item Value Reference Range Interpretation Comme nts NA (test code = 8235764908) 139 mmol/L 135-145 K (test code = 5886936179) 4.4 mmol/L 3.5-5 CL (test code = 6032162776) 101 mmol/L 98-108 CO2 TOTAL (test code = 9633868521) 28 mmol/L 23-31 AGAP (test code = 8325520793) 2-16 BUN (test code = 8802821180) 11 mg/dL 7-23 GLUCOSE (test code = 7832326217) 225 mg/dL 70-110 H CREATININE (test code = 4669748204) 0.98 mg/dL 0.6-1.25 TOTAL BILI (test code = 7698933368) 0.5 mg/dL 0.1-1.1 CALCIUM (test code = 3282247462) 9.6 mg/dL 8.6-10.6 T PROTEIN (test code = 8124467765) 8.2 g/dL 6.3-8.2 ALBUMIN (test code = 6677347864) 4.7 g/dL 3.5-5 ALK PHOS (test code = 2891260730) 75 U/L 34-122 ALTv (test code = 1742-6) 74 U/L 5-50 H AST(SGOT) (test code = 8550720333) 39 U/L 13-40 eGFR Calculation (Non-) (test code = 2857316174) mL/min/1.73m2 eGFR Calculation () (test code = 1251225086) mL/min/1.73m2 KATE (test code = KATE) Association [...] imaging tests). Lab Interpretation (test code = 68880-6) [facility] WITH [id number] 02:12:00* Test Item Value Reference Range Interpretation Comme nts WBC (test code = 6690-2) See_Comment [Automated [employer]] The system which generated this result transmitted reference range: 4.20 - 10.70 10*3/?L. The reference range was not used to interpret this result as normal/abnormal. RBC (test code = 789-8) See_Comment H [Automated [employer]] The system which generated this result transmitted [...] 32.9 g/dL 31.2-35 RDW-SD (test code = 24750-2) 36.4 fL 38.5-51.6 L RDW-CV (test code = 788-0) 12.5 % 12.1-15.4 PLT (test code = 777-3) See_Comment [Automated messa ge] The system which generated this result transmitted reference range: 150 - 328 10*3/?L. The reference range was not used to interpret this result as normal/abnormal. MPV (test code = 47759-6) 11.5 fL 9.8-13 NRBC/100 WBC (test code = 6860826545) See_Comment [Automated [employer] ssage] The system which generated this result transmitted reference range: 0.0 - 10.0 /100 WBCs. The reference range was not used to interpret this result as normal/abnormal. NRBC x10^3 (test code = 3021883127) <0.01 See_Comment [Automated [employer] ge] The system which generated this result transmitted reference range: 10*3/?L. The reference range was not used to interpret this result as normal/abnormal. GRAN MAT (NEUT) % (test code = 770-8) 68.0 % IMM GRAN % (test code = 3047629316) 0.40 % LYMPH % (test code = 736-9) 23.8 % MONO % (test code = 5905-5) 4.7 % EOS % (test code = 713-8) 2.7 % BASO % (test code = 706-2) 0.4 % GRAN MAT x10^3(ANC) (test code = 5972874523) 5.24 10*3/uL 1.99-6.95 IMM GRAN x10^3 (test code = 9000233532) 0.03 10*3/uL 0-0.06 LYMPH x10^3 (test code = 731-0) 1.83 10*3/uL 1.09-3.23 MONO x10^3 (test code = 742-7) 0.36 10*3/uL 0.36-1.02 EOS x10^3 (test code = 711-2) 0.21 10*3/uL 0.06-0.53 BASO x10^3 (test code = 704-7) 0.03 10*3/uL 0.01-0.09 Lab Interpretation (test code = 68810-2) [facility] NOW RAPID TESTING)2020-04-07 01:40:00* Test Item Value Reference Range Interpretation Comme nts SARS-CoV-2 Rapid ID NOW (test code = 93617-6) Not Detected Not Detected KATE (test code = KATE) ID NOW COVID-19 As say is an isothermal nucleic acid amplification test intended for the qualitative detection of nucleic acid from SARS-CoV-2 viral RNA in nasopharyngeal (MAXILLOFACIAL PROSTHODONTIST) specimens. It is used under Emergency Use [...] clinically indicated. Lab Interpretation (test code = 92445-9) [facility]FT [id number] 01:06:58 FINDINGS/IMPRESSION:: Frontal and lateral radiographs of [...] spine is otherwiseunremarkable.[facility] GLUCOSE (AUTOMATED)2020-02-19 23:08:00* Test Item Value Reference Range Interpretation Comme nts POCT GLU (test code = 6638213789) 243 mg/dL 70-110 H Lab Interpretation (test cod e = 46707-7) Abnormal [facility] GLUCOSE (AUTOMATED)2020-02-19 21:58:00* Test Item Value Reference Range Interpretation Comme nts POCT GLU (test code = 4282349160) 313 mg/dL 70-110 H Lab Interpretation (test cod e = 40945-3) [facility] NOW RAPID TESTING)2020-02-19 21:31:00* Test Item Value Reference Range Interpretation Comme [facility] SARS-CoV-2 Rapid ID NOW (test code = 62656-5) Not Detected Not Detected KATE (test code = KATE) ID NOW COVID-19 As say is an isothermal nucleic acid amplification test intended for the qualitative detection of nucleic acid from SARS-CoV-2 viral RNA in nasopharyngeal (MAXILLOFACIAL PROSTHODONTIST) specimens. It is used under Emergency Use [...] clinically indicated. Lab Interpretation (test code = 96929-8) Normal [facility]. METABOLIC PANEL (25166)2020-02-19 21:29:00* Test Item Value Reference Range Interpretation Comme nts NA (test code = 8048715550) 134 mmol/L 135-145 L K (test code = 0690677741) 4.1 mmol/L 3.5-5 CL (test code = 8515594773) 99 mmol/L 98-108 CO2 TOTAL (test code = 0035946194) 27 mmol/L 23-31 AGAP (test code = 7972845011) 2-16 BUN (test code = 9008506925) 10 mg/dL 7-23 GLUCOSE (test code = 6142466606) 372 mg/dL 70-110 H CREATININE (test code = 4016178957) 0.96 mg/dL 0.6-1.25 TOTAL BILI (test code = 6902652919) 0.4 mg/dL 0.1-1.1 CALCIUM (test code = 6888257142) 9.2 mg/dL 8.6-10.6 T PROTEIN (test code = 6363335930) 7.5 g/dL 6.3-8.2 ALBUMIN (test code = 3534209918) 4.5 g/dL 3.5-5 ALK PHOS (test code = 4750697026) 86 U/L 34-122 ALTv (test code = 1742-6) 48 U/L 5-50 AST(SGOT) (test code = 0775004612) 27 U/L 13-40 eGFR Calculation (Non-) (test code = 7897395604) mL/min/1.73m2 eGFR Calculation () (test code = 2532265810) mL/min/1.73m2 KATE (test code = KATE) Association [...] imaging tests). Lab Interpretation (test code = 54384-0) [facility] WITH [id number] 21:06:00* Test Item Value Reference Range Interpretation Comme nts WBC (test code = 6690-2) See_Comment [[employer]] The system which generated this result transmitted reference range: 4.20 - 10.70 10*3/?L. The reference range was not used to interpret this result as normal/abnormal. RBC (test code = 789-8) See_Comment H [[employer]] The system which generated this result transmitted [...] 33.4 g/dL 31.2-35 RDW-SD (test code = 67709-6) 36.3 fL 38.5-51.6 L RDW-CV (test code = 788-0) 12.9 % 12.1-15.4 PLT (test code = 777-3) See_Comment [[employer]] The system which generated this result transmitted reference range: 150 - 328 10*3/?L. The reference range was not used to interpret this result as normal/abnormal. MPV (test code = 95956-1) 11.3 fL 9.8-13 NRBC/100 WBC (test code = 7364443750) See_Comment [Automated me ssage] The system which generated this result transmitted reference range: 0.0 - 10.0 /100 WBCs. The reference range was not used to interpret this result as normal/abnormal. NRBC x10^3 (test code = 2542051896) <0.01 See_Comment [Automated messa ge] The system which generated this result transmitted reference range: 10*3/?L. The reference range was not used to interpret this result as normal/abnormal. GRAN MAT (NEUT) % (test code = 770-8) 79.8 % IMM GRAN % (test code = 0788158493) 0.50 % LYMPH % (test code = 736-9) 13.4 % MONO % (test code = 5905-5) 4.2 % EOS % (test code = 713-8) 1.8 % BASO % (test code = 706-2) 0.3 % GRAN MAT x10^3(ANC) (test code = 4861887536) 8.49 10*3/uL 1.99-6.95 H IMM GRAN x10^3 (test code = 2553758083) 0.05 10*3/uL 0-0.06 LYMPH x10^3 (test code = 731-0) 1.42 10*3/uL 1.09-3.23 MONO x10^3 (test code = 742-7) 0.45 10*3/uL 0.36-1.02 EOS x10^3 (test code = 711-2) 0.19 10*3/uL 0.06-0.53 BASO x10^3 (test code = 704-7) 0.03 10*3/uL 0.01-0.09 Lab Interpretation (test code = 97271-3) Abnormal [facility] GLUCOSE (AUTOMATED)2019-11-06 13:38:00* Test Item Value Reference Range Interpretation Comme nts POCT GLU (test code = 4394462723) 116 mg/dL 70-110 H Lab Interpretation (test cod e = 96580-3) Abnormal [facility] GLUCOSE (AUTOMATED)2019-11-06 12:29:00* Test Item Value Reference Range Interpretation Comme nts POCT GLU (test code = 5795462829) 322 mg/dL 70-110 H Lab Interpretation (test cod e = 16924-8) Abnormal [facility] GLUCOSE (AUTOMATED)2019-11-06 12:29:00* Test Item Value Reference Range Interpretation Comme nts POCT GLU (test code = 9711802985) 230 mg/dL 70-110 H Lab Interpretation (test cod e = 52982-5) Abnormal [facility] GLUCOSE (AUTOMATED)2019-11-06 02:00:00* Test Item Value Reference Range Interpretation Comme nts POCT GLU (test code = 7682621109) 155 mg/dL 70-110 H Notified Provide r Lab Interpretation (test code = 80243-6) [facility] [id number] 00:02:00* Test Item Value Reference Range Interpretation Comme nts Case Report (test code = 8968825469) Surgical Pathology ?Case: [id number] ? Authorizing Provider: ?Yonatan Lund MD ? ? ? Collected: ? 11/03/2019 1426 ?Ordering Location: ? ? [facility] ? ? ?Received: ?11/03/2019 1555 ? [facility] ?Pathologist: ? Klaus Tinoco MD ? Specimen: ? ?APPENDIX, appendix ? Final Diagnosis (test code = [id number]) m0nzeEFpQCIne3tkGZWrsE FuZzEwMzNcZnRuYmpcdWMx SKazuiJkYUtjo2JzW1KsYb AwMFxhbnNpXGRlZmxhbmcx ETVjVBC7kaChRIAuMOldSV EiJVhuUq8wkDLeqWisWfSf RGEoe8bpyrWTxbugfMv5r0 qlHDTsKmX6vXCoLPvpC5hv egKwuUYqWWJsEPn7iE83LJ XvwD1ilTPqLAehgxQwLXqa ydJedeDdFqv2PSJwN9tcRU QgOMMnB7BiYB6aSBZmLhk5 BVM2GKW8uTvqe1B2hEPxsT TlfZknBiYcSlWoPUEKz3Bb SBm4bCqeT7GqJMAvVeE5pE QgUGFyYWdyYXBoIEZvbnQ7 hP49SOcbufT6tSQwc5Gza1 6pv693iH0mpZQgANX8HMXv UNRqkWGbIUFnIOB2CQJlvM RaD4qaGZwuRC7kmgrzKYL7 MFxtYXJndDcyMFxtYXJnYj JprRLyGXOzqKvsQEjsp999 DKA2FkKfQH0pE1Tud1Z7fD 9maXRcZGVmdGFiNzIwXGZv go3thUMxKEvdl1QaTBN2py J4tINxmGBqRFXwQG58Pspk a3KnEuayMFR4QHYyndKcz4 Liz3qqChJsfvCwU7dlW2Wc ZHJoZWFkXHBnYnJkcmZvb3 Rgq6KabPSjqYf8t6wxNERp NKSknLcdq2vaDGV6UBSzA1 K5fVTch2vwWTccCAAmuUQ7 fzJzHVGphSBfD7QdlM4hIB ivIK1dopn5e2fnBrJjKK4d jsywb5pwWSvlFAGbBOP4Pt XdSNTiq8OduwuhGjXym0Hj mCTuWQgaA26lt221LUGgjo LiB9yheXViqnyejUSkypgb MFxmczIwXHFsXHBsYWluXG ZnAPZdDcKjfTphfF8dUeAw ZnMyMFxwYXJccGFyZFxwbG FpblxmMFxmczIwXHBsYWlu XEXbEFTgGnLwUS1yCTRJIG 8FAYufOGCDVDIPGUEENH7L WTpccGFyXHFsXHBsYWluXG RdCTAoFvOkqVqrvT6gIaLv GbRzLCXdAASkGH7jFTSAJY HeHAUCHH2IZPUOIDdAFWeJ YZozQLFPCX2WTVIQAbOPL5 lUSVNccGFyXHBhciBNYXR0 aWD1WEXfdRSuOTYMNPwdKK ZvkIdmvT6yGxTkGfLwXshs BV4pFOLzB5iyvJElVVMvES ZaJ8qvXqUrjV6uaBnlBCtk ZjFcZnMyMiBIYXJzaHdhcm XwTF7aCYcyk2LuFLTPHMTm Ni3qWE8hURCcNSJ9RnVpCC BNXHBsYWluXGYxXGZzMjBc nHQccPyeccCzQZpoh7JbY1 YyMjAwMFxhbnNpXGRlZmxh ygzoECEfRHH4xbWpFFZfQR pyRJTvDBwuPj6voVKjcMxy HoYlMCNlz6wzvrVBGIxiEl PqG233DLTtGVidn4okm9Wk OKXbwLMmz2S9DVWJgmfhfU o9f3ojQjIvCrT8bSQfFUtj E6celbZyiZUoX9IkjFEkaF s7eYcgE77ag2R3ZafgN1qm VLQvKVVuU3ZcEB0aDKJwVn w4NWU6ZLH4RSPwFCKpU7Qe OE7eFISrpZNfMUm8t3togW oqNFLtYXA6b5eaBCxoicI6 QJ0znv4doSf7c0hqkzXcJG SvNYJxhWUXWWMoQ1WpjFge Ny2xoHg5uAyeYjeoDMI6Ch m9FB2kjy44ekx6eMdmVDDv xnesOgP5JIrbUYMtciksHR c3XUapFGVllUA7HHXknDSb W6UtQNSvWK8mbso0ABI2RX wdTYDoCmS6UGZhrVEqWTOo lGzbGAeuw256YPK7ZiHuVN 8lS9Bzg2C5gN8bzGTyPZQa vWZbMeRjBXErtq2hbEWuVA urg6OlUOQ0nzZ5aPYnnKWq ETUtQF55Hukqp9WzNgmlHZ V1IHJnjzUwj5Gwx6mjPtOy kpDwD1puY1EqHGGkRDNdPZ HaWjWpanPcz4Qvx3LxgKKv sTv3l6kwYVYiJLDspZwns9 cqQZD6UOVfY8O1lZWig2pg WNknWSOblIU1saN6UTInpU XvE6OtfE9zUTCtYF2vacw3 m4qdXOA5HDerGJQzThI7hh B0UCQnjBFhHYZirYnzNLeh w747BZE0XbDyMDGsi8PxM1 LxiXogX22nrLexZ04gUQKq bLfxzZ0ipZflfW1yHpQtEc MyNFxxbFxwbGFpblxmMVxm czIwXGxhbmcxMDMzXGhpY2 gqVfCoETJuxUcaYKlhq2Tq XGYxXGNmMlxmczIwXHBhci XABQamkjOesURbh35cULpe eSByZXZpZXdlZCBhbGwgc3 GvW3ydHH1zN8JdsLVukeMc ilQjNKlrJXJqy3l6mUTjeB pam8MniQNkWT80wgGfFQMu CGN0MCUgo4tiOB99hokxSa MiwH73kqXnigQeJHKaf2dh G2ohpSJte2Zzb8HvbuWbVL cgo3DtMY8cpSZmgvpiqDM3 WWNmnXMxwoXpniQ1xYhnNN TbvI9ikH4toBbxtQ6wXmBh JzJhYMrpPX5hMDYjY3tnqD BiZKEcXDItW2szSyCgkW1z kSkpTefflmE0NIIlig69 Clinical Information (test code = 6292305543) Acute abdomen Gross Description (test code = 7992631918) x1qopGXnBUZhdLRpMgDaAJ WwWNOps4zzYGNprXZlWlGe MzNcZnRuYmpcdWMxXGRlZm Umk6rrc045kPSap0rsIJTv XrE6iSCmFYDplUCvH395BS LrUGbjb7oki1CwKZHckCDo j4J7MWDHblisxZk1pZxfL1 2hp8J6NlscU5vjYHTgZKny GJMcYIlwuYWbXTN4REYoSM R0GGlullNuwqD5AEpqdSFy PvQ7MAd4d5jabOlcKAYyBO P9c4myFMfrnqOtYE6mhg0e rUf6h3kvjoTgYXLwDSThoQ GRJOBwF8XqqBzqOm4srFp0 sCcoVxfwCFN6Wrp8TX8ehn 83ezc2iBzhGBXgnbhtGlC7 KTybXNMonqpaWQv4UMpyEF BadULcXNVocFCeM1SxCSol JF9nebh8RzCgYQ2hybbfTR ctHGVtRSE3GiQjMJGge2Gk zxbiWjPnaw3jfh95DMW9s3 NweDrjXWZ8UYB6DyNfXb7j bSBdITRkBC0nYuWxcHUzJI Jtpm23lRedPYuiwqSygQ8k McKqURRkrOTuKFAoDF6erH HaHHHieK6haposOUGdWzZj wviiCYCdzRblwrEjRa8xkS rbPUS8HDzpR0ssoO2nWzK5 XQvuQ4rswA9xBIw3FQrdnB M8BPRzrH7xOZ3fdagvk4oc WSC3HFcgOLAoeqC1scKmEL VahLEbJ2VrqE55UzTauFEe V3XtsI3qFRpvMIElnmx0Ej CsVr4yfUOziLJ5WXxtKwwl YWdlXHBnbmNvbnRccGduZG VjXHBsYWluXHBsYWluXGYw CLKuDiPci2CaNSOke4ccUx Lvr9kkqYf0KNsszYrvhXRd blxmMFxmczIwXHBsYWluXG IvASSxMwFfZ0BkY2acBF3p QSBpcyByZWNlaXZlZCBpbi Szw7DeXHgmwuInEWTsfQbi NQW5lZMvGMGyOVFkVBAgNJ 50XHBsYWluXGYxXGZzMjBc wEzqKQxjNEc6NwbhrTAgon xmMVxmczIwIHMgbmFtZSwg VUggbnVtYmVyICJhcHBlbm RpeFxwbGFpblxmMVxmczIw CTM7PhOsWZyoJBCzrFpbdN 4wEqBqDnPfIRYwWS0oTHIp wqGvc0AwKB8cHHHyqExugk 62SC0ttvEbhVhyi2SnXVCe cNDeMIa6YYl2GupaR96jqR 1ejDRyY4DcVMpaUI08UDPe OCBjbSBpbiBkaWFtZXRlci vjr2b2xDGgsSDoL4rgEOJ0 PIasp0abiN5lmXhaiIXtQL Dld2T0kFInXDLsKNCgMLMv ZQ5ioPqhAASuBCE2HQNgSJ H8PGLzIMGcyTfpOMHSgQHn BSSwPZ5kcOdeu0Iux7YfVG tlo2WxIQVevoC0eBEmHTG1 kSChfUYvMZQvfuVnhSJ7sW VudCBleHVkYXRlLiBUaGUg GLThUI2lzWbynIFdn6IoxV KpjUmog4LpiEtahyGmPATr IHJldmVhbCBhIHBhdGVudC XdtM9ygmcigeXcP6wxVnCa gz6wKQPwerQukE70LHRfUS QlCbVauAlhU91mnIJagrgt TmAbX7RloWGqBI5zmzHdOV dlLiAgVGhlIHdhbGwgdGhp H8miYUTmIUOopiikstLkrc 2iVHTqJO7pGePeS09uAWMy cnVwdHVyZSBzaXRlIGlzIG tsr1IvjLcvrKNwhaJhTqmq KTikCN4rKPWjUPZpr12mwC giIC15L71oWPqssuCyLDL1 xB0lKB3uirhdav0eAbSbub LtOO33BARtqzFsv3VhaVbh byTca9rxC9lwgB3icRSpWW Nzpo2pgqPbFBN6iW7xhtre sKopZFRcpISjsU0pHXRmql BeOAB9lQ5eYD5zqvyrfaBr bmQgZGlzdGFsIHRpcCBhcm Sjy1IjtKp5kRAaDWkhUIPr LUEyLlxwYXJccGFyZFxwbG FpblxmMFxmczIwXHBsYWlu XGYxXGZzMjAgSnVsaWUgTW XThSkpnxW0ZZIMTHhkDDK7 Embedded Images (test code = 8550026714) [facility] GLUCOSE (AUTOMATED)2019-11-05 22:19:00* Test Item Value Reference Range Interpretation Comme nts POCT GLU (test code = 6731633626) 115 mg/dL 70-110 H Lab Interpretation (test cod e = 33911-1) Abnormal [facility] GLUCOSE (AUTOMATED)2019-11-05 18:23:00* Test Item Value Reference Range Interpretation Comme nts POCT GLU (test code = 3530704766) 197 mg/dL 70-110 H Lab Interpretation (test cod e = 58286-6) Abnormal [facility] GLUCOSE (AUTOMATED)2019-11-05 17:33:00* Test Item Value Reference Range Interpretation Comme nts POCT GLU (test code = 4166033179) 125 mg/dL 70-110 H Lab Interpretation (test cod e = 89647-8) Abnormal [facility] GLUCOSE (AUTOMATED)2019-11-05 13:28:00* Test Item Value Reference Range Interpretation Comme nts POCT GLU (test code = 4119034356) 130 mg/dL 70-110 H Lab Interpretation (test cod e = 53611-8) Abnormal [facility] METABOLIC PANEL (NA, K, CL, CO2, GLUCOSE, BUN, CREATININE, CA)2019-11-05 12:11:00* Test Item Value Reference Range Interpretation Comme nts NA (test code = 2224034833) 137 mmol/L 135-145 K (test code = 0655221136) 3.6 mmol/L 3.5-5 CL (test code = 1929216926) 100 mmol/L 98-108 CO2 TOTAL (test code = 8904769223) 30 mmol/L 23-31 AGAP (test code = 0365728053) 2-16 BUN (test code = 0001404120) 14 mg/dL 7-23 GLUCOSE (test code = 3241051805) 164 mg/dL 70-110 H CREATININE (test code = 6998618842) 0.81 mg/dL 0.6-1.25 CALCIUM (test code = 1773215712) 8.6 mg/dL 8.6-10.6 eGFR Calculation (Non-) (test code = 0239764829) mL/min/1.73m2 eGFR Calculation () (test code = 4990630220) mL/min/1.73m2 KATE (test code = KATE) Association [...] imaging tests). Lab Interpretation (test code = 45760-8) [facility] WITH [id number] 11:39:00* Test Item Value Reference Range Interpretation Comme nts WBC (test code = 6690-2) See_Comment [[employer]] The system which generated this result transmitted reference range: 4.20 - 10.70 10*3/?L. The reference range was not used to interpret this result as normal/abnormal. RBC (test code = 789-8) See_Comment [Automated [employer]] The system which generated this result transmitted [...] 33.1 g/dL 31.2-35 RDW-SD (test code = 35725-7) 38.7 fL 38.5-51.6 RDW-CV (test code = 788-0) 13.0 % 12.1-15.4 PLT (test code = 777-3) See_Comment [Automated messa ge] The system which generated this result transmitted reference range: 150 - 328 10*3/?L. The reference range was not used to interpret this result as normal/abnormal. MPV (test code = 38956-9) 11.5 fL 9.8-13 NRBC/100 WBC (test code = 3343359469) See_Comment [Automated [employer]] The system which generated this result transmitted reference range: 0.0 - 10.0 /100 WBCs. The reference range was not used to interpret this result as normal/abnormal. NRBC x10^3 (test code = 8536168440) <0.01 See_Comment [Automated messa ge] The system which generated this result transmitted reference range: 10*3/?L. The reference range was not used to interpret this result as normal/abnormal. GRAN MAT (NEUT) % (test code = 770-8) 83.5 % IMM GRAN % (test code = 9041926450) 0.30 % LYMPH % (test code = 736-9) 9.3 % MONO % (test code = 5905-5) 5.7 % EOS % (test code = 713-8) 1.1 % BASO % (test code = 706-2) 0.1 % GRAN MAT x10^3(ANC) (test code = 6476775567) 7.74 10*3/uL 1.99-6.95 H IMM GRAN x10^3 (test code = 5505781625) 0.03 10*3/uL 0-0.06 LYMPH x10^3 (test code = 731-0) 0.86 10*3/uL 1.09-3.23 L MONO x10^3 (test code = 742-7) 0.53 10*3/uL 0.36-1.02 EOS x10^3 (test code = 711-2) 0.10 10*3/uL 0.06-0.53 BASO x10^3 (test code = 704-7) <0.03 0.01-0.09 Lab Interpretation (test code = 14425-0) Abnormal [facility] GLUCOSE (AUTOMATED)2019-11-05 10:22:00* Test Item Value Reference Range Interpretation Comme nts POCT GLU (test code = 3106594451) 149 mg/dL 70-110 H Lab Interpretation (test cod e = 33886-4) Abnormal [facility] GLUCOSE (AUTOMATED)2019-11-05 06:15:00* Test Item Value Reference Range Interpretation Comme nts POCT GLU (test code = 2647903016) 204 mg/dL 70-110 H Lab Interpretation (test cod e = 54919-6) Abnormal [facility] GLUCOSE (AUTOMATED)2019-11-05 01:48:00* Test Item Value Reference Range Interpretation Comme nts POCT GLU (test code = 0538824505) 227 mg/dL 70-110 H Lab Interpretation (test cod e = 64417-7) Abnormal [facility] GLUCOSE (AUTOMATED)2019-11-04 22:30:00* Test Item Value Reference Range Interpretation Comme nts POCT GLU (test code = 6601069970) 132 mg/dL 70-110 H Lab Interpretation (test cod e = 06440-8) Abnormal [facility] GLUCOSE (AUTOMATED)2019-11-04 17:24:00* Test Item Value Reference Range Interpretation Comme nts POCT GLU (test code = 2938738882) 213 mg/dL 70-110 H Lab Interpretation (test cod e = 79615-4) Abnormal [facility] GLUCOSE (AUTOMATED)2019-11-04 13:31:00* Test Item Value Reference Range Interpretation Comme nts POCT GLU (test code = 6186536533) 203 mg/dL 70-110 H Lab Interpretation (test cod e = 20682-2) Abnormal [facility] GLUCOSE (AUTOMATED)2019-11-04 12:03:00* Test Item Value Reference Range Interpretation Comme nts POCT GLU (test code = 7779999238) 213 mg/dL 70-110 H Lab Interpretation (test cod e = 53929-0) [facility] 23:50:00* Test Item Value [...] ?Diabetes Indicated Lab Interpretation (test code = 12458-1) [facility] 23:28:00* Test Item Value Reference Range Interpretation Comme nts POCT GLU (test code = 4677234472) 273 mg/dL 70-110 H Lab Interpretation (test cod e = 92365-3) [facility] [id number] 18:01:52CT Abdomen and Pelvis with intravenous contrast. [...] Rhoades in the emergency room at 12:00. [facility], [facility] Results Inft User - 11/03/2019 [...] with Dr. Rhoades in the emergency room at12:00.[facility] [id number] 16:23:00* Test Item Value Reference Range Interpretation Comme nts APPEARANCE (test code = 8775009543) Clear Clear COLOR (test code = 5353629447) Yellow Yellow PH (test code = 4418023433) 4.8-8.0 SP GRAVITY (test code = 2276665907) 1.003-1.030 GLU U QUAL (test code = 6290823666) 500 mg/dL Normal A BLOOD (test code = 3587541654) Negative Negative KETONES (test code = 4836996756) Negative Negative PROTEIN (test code = 2887-8) Negative Negative UROBILIN (test code = 5891303511) Normal Normal BILIRUBIN (test code = 1478682102) Negative Negative NITRITE (test code = 1001634002) Negative Negative LEUK BIANCA (test code = 1866374108) Negative Negative RBC/HPF (test code = 2627501086) See_Comment [Automated [employer]] The system which generated this result transmitted reference range: 0 - 3 HPF. The reference range was not used to interpret this result as normal/abnormal. WBC/HPF (test code = 3358952069) See_Comment [Automated messa ge] The system which generated this result transmitted reference range: 0 - 5 HPF. The reference range was not used to interpret this result as normal/abnormal. BACTERIA (test code = 4679147970) Negative Negative MUCOUS (test code = 8971569833) Slight Negative LPF A SQ EPITH (test code = 7800950946) <1 HPF Lab Interpretation (test code = 00633-0) Abnormal [facility]. METABOLIC PANEL (47879)2019-11-03 16:04:00* Test Item Value Reference Range Interpretation Comme nts NA (test code = 4869998964) 137 mmol/L 135-145 K (test code = 4566750874) 4.3 mmol/L 3.5-5 CL (test code = 4656135549) 98 mmol/L 98-108 CO2 TOTAL (test code = 5168599176) 28 mmol/L 23-31 AGAP (test code = 8657762312) 2-16 BUN (test code = 7885898332) 11 mg/dL 7-23 GLUCOSE (test code = 9020276745) 356 mg/dL 70-110 H CREATININE (test code = 8300934735) 1.01 mg/dL 0.6-1.25 TOTAL BILI (test code = 3152099408) 0.9 mg/dL 0.1-1.1 CALCIUM (test code = 7140538249) 9.1 mg/dL 8.6-10.6 T PROTEIN (test code = 1844692313) 7.5 g/dL 6.3-8.2 ALBUMIN (test code = 9227621371) 4.7 g/dL 3.5-5 ALK PHOS (test code = 8930451046) 73 U/L 34-122 ALTv (test code = 1742-6) 38 U/L 5-50 AST(SGOT) (test code = 3152980010) 25 U/L 13-40 eGFR Calculation (Non-) (test code = 4685789098) mL/min/1.73m2 eGFR Calculation () (test code = 5237763398) mL/min/1.73m2 KATE (test code = KATE) Association [...] imaging tests). Lab Interpretation (test code = 31349-2) [facility]:03[facility]* Test Item Value Reference Range Interpretation Comme nts LIPASE (test code = 9909400064) 48 U/L 0-220 Lab Interpretation (test cod e = 67421-3) [facility] [id number] 15:51:00* Test Item Value Reference Range Interpretation [...] 32.7 g/dL 31.2-35 RDW-SD (test code = 58737-3) 37.8 fL 38.5-51.6 L RDW-CV (test code = 788-0) 12.7 % 12.1-15.4 PLT (test code = 777-3) See_Comment [Automated message] The system which generated this result transmitted reference range: 150 - 328 10*3/?L. The reference range was not used to interpret this result as normal/abnormal. MPV (test code = 34304-4) 10.9 fL 9.8-13 NRBC/100 WBC (test code = 7672004096) See_Comment [Automated message] The system which generated this result transmitted reference range: 0.0 - 10.0 /100 WBCs. The reference range was not used to interpret this result as normal/abnormal. NRBC x10^3 (test code = 7668150220) <0.01 See_Comment [Automated message] The system which generated this result transmitted reference range: 10*3/?L. The reference range was not used to interpret this result as normal/abnormal. GRAN MAT (NEUT) % (test code = 770-8) 91.5 % IMM GRAN % (test code = 6436059886) 0.50 % LYMPH % (test code = 736-9) 3.9 % MONO % (test code = 5905-5) 3.8 % EOS % (test code = 713-8) 0.1 % BASO % (test code = 706-2) 0.2 % GRAN MAT x10^3(ANC) (test code = 8708081552) 12.89 10*3/uL 1.99-6.95 H IMM GRAN x10^3 (test code = 3249825358) 0.07 10*3/uL 0-0.06 H LYMPH x10^3 (test code = 731-0) 0.55 10*3/uL 1.09-3.23 L MONO x10^3 (test code = 742-7) 0.54 10*3/uL 0.36-1.02 EOS x10^3 (test code = 711-2) <0.03 0.06-0.53 L BASO x10^3 (test code = 704-7) 0.03 10*3/uL 0.01-0.09 Lab Interpretation (test code = 52739-5) Abnormal [facility] Notes Date/Time Note Provider Source 2024-06-06 16:45:49 Pt given printed and verbal discharge instructions regarding MELCHOR/migraine, encouraged hydration. 0 Prescriptions provided. Discussed ibuprofen and to take with food to avoid GI distress. Pt verbalized understanding of instructions, pt awake alert oriented, resp reg unlabored, skin w/d, color appropriate for race, moves all ext well,pt encouraged to follow up with pcp and neurology. Advised to seek medical attention for new/prolonged/worsening of symptoms, Symptoms improved. No adverse reaction to meds given in ER noted upon discharge. PIV d'cd, dressing to site, catheter in tact. Awake, alert oriented, resp reg unlabored, skin w/d, pt leaving amb with steady gait, in no apparent distress. [facility] 2024-06-06 13:50:00 Pt playing on phone no distress Montse Treviño RN [facility] 2024-06-06 12:49:12 Patient arrived ambulatory for migraine, dizziness, nausea x2 days. Out of migraine medication. Montse Doyle RN [facility] 2024-02-29 17:25:43 Pt discharged with diagnosis of migraine without aura and status migrainosus, encouraged hydration. Printed and verbal instructions reviewed with and given to pt. Pt. verbalized understanding of teaching and recommended follow-up. Denies questions or concerns at this time. Pt ambulatory at discharge. Appears in no apparent distress. No ataxia noted. Pt called daughter for transportation. Advised to seek medical attention for new/prolonged/worsening of symptoms, Symptoms improved. No adverse reaction to meds given in ER noted upon discharge PIV d'cd, dressing to site, catheter in tact. Risa Farris RN [facility] 2024-02-29 14:44:32 Patient has headache with nausea and vertigo since yesterday at noon. Has hx of headaches, takes fioricet, ran out yesterday. Also has had intermittent abdominal pain and diarrhea for several months. Abisai Wheeler RN [facility]"
--- NOTE | 2025-04-28 13:45 | ER ---
Nurse's Notes [facility] Name: Chente Minaya Age: 54 yrs Sex: Male : 1970 Arrival Date: 04/28/2025 Time: 13:01 Bed 17 Private MD: Diagnosis: Type 2 diabetes mellitus with foot ulcer Presentation: 04/28 13:15 Chief complaint: Patient states: "I wore my work boots and I got a blister on the aa5 bottom of my left foot that popped on Friday and now it's white and my leg is swollen". Coronavirus screen: At this time, the client does not indicate any symptoms associated with coronavirus-19. Ebola Screen: Patient denies travel to an Ebola-affected area in the 21 days before illness onset. Initial Sepsis Screen: Does the patient meet any 2 criteria? No. Patient's initial sepsis screen is negative. Does the patient have a suspected source of infection? No. Patient's initial sepsis screen is negative. Risk Assessment: Do you want to hurt yourself or someone else? Patient reports no desire to harm self or others. Onset of symptoms was April 2025. 13:15 Method Of Arrival: Ambulatory aa5 13:15 Acuity: GILDARDO 3 aa5 Historical: - Allergies: 13:14 Bactrim; aa5 13:14 mushroom; aa5 13:14 Mustard; aa5 13:14 PENICILLINS; aa5 13:14 Reglan; aa5 13:14 Sulfa (Sulfonamide Antibiotics); aa5 13:14 surgical steel; aa5 13:14 tramadol; aa5 13:14 Tylenol-Codeine #3; aa5 13:14 Tylenol-Codeine #4; aa5 - PMHx: 13:14 diabetes mellitus; GERD; hiatal hernia (Migraine); Migraine; aa5 - PSHx: 13:14 Appendectomy; aa5 - Immunization history:: Adult Immunizations unknown. - Infectious Disease History:: Denies. - Social history:: Smoking status: Patient denies any tobacco usage or history of. Screenin:37 [facility] ED Fall Risk Assessment (Adult) History of falling in the last 3 months, kj2 including since admission No falls in past 3 months (0 pts) Confusion or Disorientation No (0 pts) Intoxicated or Sedated No (0 pts) Impaired Gait No (0 pts) Mobility Assist Device Used No (0 pt) Altered Elimination No (0 pt) Score/Fall Risk Level 0 - 2 = Low Risk Maintained a safe environment, Hourly rounding (assess needs \\T\\ fall precautionary measures) done. Abuse screen: Denies threats or abuse. Denies injuries from another. Nutritional screening: No deficits noted. Tuberculosis screening: No symptoms or risk factors identified. Assessment: 13:20 General: Appears in no apparent distress. Behavior is cooperative. Pain: Complains of kj2 pain in left leg Pain currently is 5 out of 10 on a pain scale. Neuro: Level of Consciousness is awake, alert, obeys commands, Oriented to person, place, time, situation. Cardiovascular: Capillary refill < 3 seconds. Respiratory: Airway is patent Respiratory effort is unlabored. GI: No signs and/or symptoms were reported involving the gastrointestinal system. : No signs and/or symptoms were reported regarding the genitourinary system. 14:04 Reassessment: Patient appears in no apparent distress at this time. Patient and/or kj2 family updated on plan of care and expected duration. Pain level reassessed. Patient is alert, oriented x 3, equal unlabored respirations, skin warm/dry/pink. Vital Signs: 13:15 BP 148 / 76; Pulse 88; Resp 19 S; Temp 98.6(O); Pulse Ox 98% on R/A; Weight 124.74 kg aa5 (R); Height 6 ft. 2 in. (R); 14:04 BP 140 / 74; Pulse 84; Resp 20; Temp 98; Pulse Ox 100% on R/A; kj2 13:15 Body Mass Index 35.31 (124.74 kg, 187.96 cm) aa5 ED Course: 13:03 Patient arrived in ED. mr 13:04 Saran Acuña DO is Attending Physician. ms3 13:14 Arm band placed on. aa5 13:16 Triage completed. aa5 13:34 Bernie Ace, CORA is Primary Nurse. kj2 13:37 Patient has correct armband on for positive identification. Call light in reach. kj2 Provided Education on: call light. 13:44 Moris Farris MD is Referral Physician. ms3 14:15 No provider procedures requiring assistance completed. Patient did not have IV access kj2 during this emergency room visit. Administered Medications: No medications were administered Medication: 14:15 VIS not applicable for this client. kj2 Outcome: 13:45 Discharge ordered by . ms3 14:15 Discharged to home ambulatory, kj2 14:15 Condition: stable 14:15 Discharge instructions given to patient, family, Instructed on discharge instructions, follow up and referral plans. Demonstrated understanding of instructions, follow-up care, 14:16 Patient left the ED. kj2 Signatures: Yoselin Dc, Reg Reg mr [place], RN RN aa5 Saran Acuña, DO DO ms3 Bernie Ace, RN RN kj2
--- NOTE | 2025-04-28 13:45 | EDPHYS ---
Physician Documentation [facility] Name: Chente Minaya Age: 54 yrs Sex: Male : 1970 Arrival Date: 04/28/2025 Time: 13:01 Bed 17 Private MD: ED Physician Saran Acuña HPI: 04/28 13:45 This 54 yrs old Male presents to ER via Ambulatory with complaints of Leg Swelling, ms3 Skin Sore(s). 13:45 54-year-old male with past medical history of diabetes, hiatal hernia, migraines ms3 presents to the emergency department for foot ulceration on his left plantar surface of his foot. Patient states he initially had a blister that ruptured leaving. Patient denies pain.. Historical: - Allergies: 13:14 Bactrim; aa5 13:14 mushroom; aa5 13:14 Mustard; aa5 13:14 PENICILLINS; aa5 13:14 Reglan; aa5 13:14 Sulfa (Sulfonamide Antibiotics); aa5 13:14 surgical steel; aa5 13:14 tramadol; aa5 13:14 Tylenol-Codeine #3; aa5 13:14 Tylenol-Codeine #4; aa5 - PMHx: 13:14 diabetes mellitus; GERD; hiatal hernia (Migraine); Migraine; aa5 - PSHx: 13:14 Appendectomy; aa5 - Immunization history:: Adult Immunizations unknown. - Infectious Disease History:: Denies. - Social history:: Smoking status: Patient denies any tobacco usage or history of. ROS: 13:45 Constitutional: Negative for fever, and chills. Cardiovascular: Negative for chest ms3 pain, and palpitations. Respiratory: Negative for shortness of breath, cough, wheezing, and pleuritic chest pain, Abdomen/GI: Negative for abdominal pain, nausea, vomiting, diarrhea, and constipation, MS/Extremity: Negative for injury and deformity, 13:45 Skin: Positive for ulceration, Exam: 13:45 Constitutional: This is a well developed, well nourished patient who is awake, alert, ms3 and in no acute distress. Cardiovascular: Regular rate and rhythm with a normal S1 and S2. No gallops, murmurs, or rubs. Normal PMI, no JVD. No pulse deficits. Respiratory: Lungs have equal breath sounds bilaterally, clear to auscultation and percussion. No rales, rhonchi or wheezes noted. No increased work of breathing, no retractions or nasal flaring. Abdomen/GI: Soft, non-tender, with normal bowel sounds. No distension or tympany. No guarding or rebound. No evidence of tenderness throughout. 13:45 Skin: Well-circumscribed ulceration plantar surface of left foot. Approximately 3 cm. Vital Signs: 13:15 BP 148 / 76; Pulse 88; Resp 19 S; Temp 98.6(O); Pulse Ox 98% on R/A; Weight 124.74 kg aa5 (R); Height 6 ft. 2 in. (R); 14:04 BP 140 / 74; Pulse 84; Resp 20; Temp 98; Pulse Ox 100% on R/A; kj2 13:15 Body Mass Index 35.31 (124.74 kg, 187.96 cm) aa5 MDM: 13:36 Medical Screening Exam initiated ms3 13:45 Differential diagnosis: DM Foot ulcer. Data reviewed: vital signs, nurses notes, and as ms3 a result, I will discharge patient. I considered the following discharge prescriptions or medication management in the emergency department Medications were administered in the Emergency Department. See MAR. Counseling: I had a detailed discussion with the patient and/or guardian regarding the historical points, exam findings, and any diagnostic results supporting the discharge/admit diagnosis, the need for outpatient follow up, to return to the emergency department if symptoms worsen or persist or if there are any questions or concerns that arise at home. Special discussion: I discussed with the patient/guardian in detail that at this point there is no indication for admission to the hospital. It is understood, however, that if the symptoms persist or worsen the patient needs to return immediately for re-evaluation. ED course: Discussed necessity for patient to follow-up in wound clinic on Friday with patient. He understands agrees with plan. All questions were answered. Return precautions discussed include worsening symptoms, or any other concerns.. Administered Medications: No medications were administered Disposition Summary: 04/28/25 13:45 Discharge Ordered Notes: Location: Home ms3 Condition: Stable ms3 Diagnosis - Type 2 diabetes mellitus with foot ulcer ms3 Followup: ms3 - With: Moris Farris MD - When: 2 - 3 days - Reason: Recheck today's complaints Discharge Instructions: - Discharge Summary Sheet ms3 - Diabetes Mellitus and Foot Care ms3 Forms: - Medication Reconciliation Form ms3 - Antibiotic Education ms3 - Prescription Opioid Use ms3 - Patient Portal Instructions ms3 - Leadership Thank You Letter ms3 Prescriptions: - mupirocin 2 % Topical ointment - apply 1 application TOPICAL route 2 times per day; 22 gram; Refills: 0, Product ms3 Selection Permitted - Doxycycline Hyclate 100 mg Oral Tablet - take 1 tablet ORAL route every 12 hours; 20 tablet; Refills: 0, Product ms3 Selection Permitted Signatures: Huyen England, RN RN aa5 Saran Acuña DO DO ms3
[2025-04-28 15:28] VITALS: BP 140/74; TEMP 98; O2SAT 100
== END 2025-04-28 14:16 | disposition home or self-care (01) ==
LOC: ER 13:01
DX: E11.621 Type 2 diabetes mellitus with foot ulcer (principal)
CPT/HCPCS: 99283